=== PATIENT | male | born 1940 | race Caucasian/White ===

== ENCOUNTER 2018-06-22 11:15 | Day surgery (SDC) | payer MEDICARE ==
[~2018-06-22] VITALS: Ht 172.7 cm; Wt 81.0 kg
--- OUTSIDE RECORDS SUMMARY | 2018-06-22 11:24 | XMS REPORT ---
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 Encounters The following conditions tracked for encounter diagnoses were recorded for this visit: Finding or Diagnosis Status Certainty Chronicity Onset *ABDOMINAL PAIN; incarcerated Right inguinal hernia Active Medications Discharge Medications Status Medication Directions Current aspirin 81 mg tablet,delayed release 81 milligram (s) oral Daily Current buspirone 10 mg tablet 10 milligram (s) oral 3 xDaily 05-31-21 Current Flomax 0.4 mg capsule 0.4 milligram (s) oral Daily Current furosemide 40 mg tablet 40 milligram (s) oral Daily Current Invega 3 mg tablet,extended release 3 milligram (s) oral Daily Current lamotrigine 200 mg tablet 200 milligram (s) oral Twice a day Current lamotrigine 25 mg tablet 50 milligram (s) oral Twice a day Current Lipitor 20 mg tablet 20 milligram (s) oral Daily Current lisinopril 2.5 mg tablet 2.5 milligram (s) oral Daily Current potassium chloride ER 10 mEq capsule,extended release 10 milliequivilant(s) oral Daily Current Senokot 8.6 mg tablet 8.6 milligram (s) oral Daily Current Tegretol 200 mg tablet 200 milligram (s) oral Twice a day Stopped pentoxifylline ER 400 mg tablet,extended release 400 milligram (s) oral Twice a day Allergies, adverse reactions, alerts Allergen Category Ingredient Status Reaction Severity Onset shrimp Drug Allergy shrimp Confirmed or Verified Immunizations No immunizations recorded for this patient visit Relevant diagnostic tests and/or laboratory data RESULTS Routine Urinalysis :00:00 Result Normal Range Units Color YELLOW Clarity Clear Specific [place] 1.020 1.003-1.035 pH 6.5 4.5-8.0 Glucose NEGATIVE Bilirubin NEGATIVE Ketones 1+ Protein TRACE Urobilinogen 0.2 0-0.2 E.U./dL Nitrites NEGATIVE Blood NEGATIVE Leukocytes NEGATIVE WBCs No WBC's Seen RBCs No RBC's Seen. Squamous Epithelial Few Chemistry :00:00 Result Normal Range Units Sodium L 131 134-145 mEq/l Potassium 4.1 3.5-5.1 mEq/l Chloride L 97 98-107 mEq/l CO2 26.7 22-28 mEq/l Glucose H 234 70-105 mg/dl BUN 18 7-18 mg/dl Creatinine 0.71 0.6-1.3 mg/dl Calcium L 7.9 8.4-10.2 mg/dl Osmolality L 272.1 280-300 mOsm/L Anion GAP L 7.3 8-16 BUN/Creatinine Ratio H 25.4 10-20 Estimated GFR 109 >=60 mL/min/1.7 :05:00 Result Normal Range Units Sodium L 132 134-145 mEq/l Potassium 4.1 3.5-5.1 mEq/l Chloride L 92 98-107 mEq/l CO2 H 29.4 22-28 mEq/l Glucose H 155 70-105 mg/dl BUN H 22 7-18 mg/dl Creatinine 0.84 0.6-1.3 mg/dl Calcium 9.1 8.4-10.2 mg/dl TP - Total Protein 8.1 6.0-8.3 g/dl Albumin 4.6 3.5-5 g/dl Bilirubin - Total 0.6 0.1-1.0 mg/dl AST 34 10-42 IU/L ALT 25 12-65 IU/L ALP 59 39-107 IU/L Lipase 112 73-393 U/L Osmolality L 271.0 280-300 mOsm/L Albumin/Globulin Ratio 1.3 0-8 Anion GAP 10.6 8-16 BUN/Creatinine Ratio H 26.2 10-20 Estimated GFR 90 >=60 mL/min/1.7 Hematology :00:00 Result Normal Range Units WBC 10.0 4.8-10.8 103/uL RBC L 3.9 4.7-6.1 106/uL HGB L 12.5 13.0-18.0 g/dl HCT L 36.2 41.9-52.0 % MCV 92.1 80-94 FL MCH H 31.8 27-31 pg MCHC 34.5 33-37 g/dl RDW 13.7 11.5-15.5 % PLT 228 130-400 103/uL MPV 8.8 7.3-10.4 FL Neutro % H 77.4 40-70 % Lymph % L 9.6 20-40 % [facility] % H 10.7 0-10.0 % Eos % 1.5 0-7.0 % Baso % 0.4 0-2 % Neutro # H 7.7 1.5-7.5 103/uL Lymph # 1.0 0.9-4.0 103/uL [facility] # H 1.1 0-0.8 103/uL Eos # 0.2 0-0.6 103/uL Baso # 0.0 0-0.1 103/uL :05:00 Result Normal Range Units WBC H 14.8 4.8-10.8 103/uL RBC 4.7 4.7-6.1 106/uL HGB 14.9 13.0-18.0 g/dl HCT 43.1 41.9-52.0 % MCV 91.9 80-94 FL MCH H 31.8 27-31 pg MCHC 34.6 33-37 g/dl RDW 13.9 11.5-15.5 % PLT 266 130-400 103/uL MPV 8.5 7.3-10.4 FL Neutro % H 88.2 40-70 % Lymph % L 5.0 20-40 % [facility] % 5.6 0-10.0 % Eos % 0.4 0-7.0 % Baso % 0.3 0-2 % Neutro # H 13.1 1.5-7.5 103/uL Lymph # L 0.7 0.9-4.0 103/uL [facility] # 0.8 0-0.8 103/uL Eos # 0.1 0-0.6 103/uL Baso # 0.0 0-0.1 103/uL Body Fluid 70-92-190697:00:00 Result Normal Range Units pH 6.5 4.5-8.0 Radiology Results 91-66-335419:27:00 Abdomen 2 View PACs Image DATE OF EXAM: 2015 RAD [id number] 2 VIEW : RADIOLOGY REPORT DATE OF SERVICE:02/20/16 HISTORY:Abdominal pain, vomiting. ABDOMEN 2 VIEWS 1901 HOURS Multiple images of the abdomen were obtained and evaluated. There is a prominent ileus pattern without obstruction. No free air is identified. Evidence of prior median sternotomy and bypass surgery is noted. Pacemaker leads are seen. Gas and stool through the colon is demonstrated extending to the rectum. There is constipation on the right. An ileus pattern in the transverse and descending colon is noted. Postsurgical change of the left inguinal region is noted. Moderate arthritic change involving the spine is noted. IMPRESSION: 1)Moderate right colon constipation. 2)Mild ileus without obstruction. 3)Postsurgical change. 4)Osteoarthritis. Bhanu Gates DO WP/pb 02/20/2016 19:38:02/20/2016 20:43:43 cc:Dr. Hayden Reinoso This document has been electronically Signed by: On: DATE OF EXAM: 2015 RAD [id number]-ABDOMEN 2 VIEW : RADIOLOGY REPORT DATE OF SERVICE:02/20/16 HISTORY:Abdominal pain, vomiting. ABDOMEN 2 VIEWS 1901 HOURS Multiple images of the abdomen were obtained and evaluated. There is a prominent ileus pattern without obstruction. No free air is identified. Evidence of prior median sternotomy and bypass surgery is noted. Pacemaker leads are seen. Gas and stool through the colon is demonstrated extending to the rectum. There is constipation on the right. An ileus pattern in the transverse and descending colon is noted. Postsurgical change of the left inguinal region is noted. Moderate arthritic change involving the spine is noted. IMPRESSION: 1)Moderate right colon constipation. 2)Mild ileus without obstruction. 3)Postsurgical change. 4)Osteoarthritis. Bhanu Gates DO WP/pb 02/20/2016 19:38:02/20/2016 20:43:43 cc:Dr. Hayden Reinoso This document has been electronically Signed by: BHANU GATES DO On: 20158:27A INCARCERATED RIGHT INGUINAL HE Result Amended on 2016-02-21 at 08:27:14. Previous status was MO. INCARCERATED RIGHT INGUINAL HE CT ABD/PEL W CONTRAST PACs Image DATE OF EXAM: 2015 [id number] ABD/PELV W CONTRAST : RADIOLOGY REPORT DATE OF SERVICE: 02/20/16 HISTORY:Abdominal pain, elevated white count. CT ABDOMEN, PELVIS WITH CONTRAST 2209 HOURS Contrast utilized Isovue-300, 100 ml. Axial images were obtained with coronal reformats. The lower thorax pulmonary parenchymal windows show vascular congestion. Focal pneumonia is not identified. Coronary artery bypass graft changes are demonstrated. The heart is not enlarged. Large amount of contrast residual within the stomach is noted. Liver does not show focal pathology. Spleen appears normal. The adrenal glands are not enlarged. Left kidney is smooth in contour without hydronephrosis. A small calculus is demonstrated on axial image 39. This is nonobstructing type. This is approximately 2 mm. The right kidney is smooth in contour. A large low density area centrally oriented is identified. This is approximately 5 cm consistent with cyst. This is inferiorly in position. Aorta shows moderate atherosclerotic plaque and ectasia without aneurysmal change. Bladder shows moderate distention without filling defect. No free air or free fluid is defined in the pelvis. Bowel distribution is evaluated. Stomach shows moderate distention with contrast. Multiple fluid filled and stool filled loops of bowel are demonstrated. This appears to approximate to an area where there is a prominent right inguinal hernia extending into the scrotum. This is with moderate dilatation and probable obstructive pathology. This appears to be an incarcerated hernia. No free fluid or free air is demonstrated. In the area of the appendix, inflammatory process is not identified. The appendix is not definitively defined. Sigmoid colon does not show abnormal distention.Diverticulosis is not identified. There is prominent osteoarthritis involving the spine. IMPRESSION: 1)Incarcerated right inguinal hernia with small bowel distention and obstructive pathology, close follow-up recommended. 2)Emergency Room physician Dr. Dominic Root was informed of the above findings at the time of this report. 3)No other area of active or acute abdominal or pelvic pathology demonstrated. Bhanu Gates DO WP/benson 02/20/2016 22:33:00 / 02/21/2016 00:07:28 cc:Dr. Hayden Reinoso This document has been electronically Signed by: On: DATE OF EXAM: 2015 [id number] ABD/PELV W CONTRAST : RADIOLOGY REPORT DATE OF SERVICE: 02/20/16 HISTORY:Abdominal pain, elevated white count. CT ABDOMEN, PELVIS WITH CONTRAST 2209 HOURS Contrast utilized Isovue-300, 100 ml. Axial images were obtained with coronal reformats. The lower thorax pulmonary parenchymal windows show vascular congestion. Focal pneumonia is not identified. Coronary artery bypass graft changes are demonstrated. The heart is not enlarged. Large amount of contrast residual within the stomach is noted. Liver does not show focal pathology. Spleen appears normal. The adrenal glands are not enlarged. Left kidney is smooth in contour without hydronephrosis. A small calculus is demonstrated on axial image 39. This is nonobstructing type. This is approximately 2 mm. The right kidney is smooth in contour. A large low density area centrally oriented is identified. This is approximately 5 cm consistent with cyst. This is inferiorly in position. Aorta shows moderate atherosclerotic plaque and ectasia without aneurysmal change. Bladder shows moderate distention without filling defect. No free air or free fluid is defined in the pelvis. Bowel distribution is evaluated. Stomach shows moderate distention with contrast. Multiple fluid filled and stool filled loops of bowel are demonstrated. This appears to approximate to an area where there is a prominent right inguinal hernia extending into the scrotum. This is with moderate dilatation and probable obstructive pathology. This appears to be an incarcerated hernia. No free fluid or free air is demonstrated. In the area of the appendix, inflammatory process is not identified. The appendix is not definitively defined. Sigmoid colon does not show abnormal distention.Diverticulosis is not identified. There is prominent osteoarthritis involving the spine. IMPRESSION: 1)Incarcerated right inguinal hernia with small bowel distention and obstructive pathology, close follow-up recommended. 2)Emergency Room physician Dr. Dominic Root was informed of the above findings at the time of this report. 3)No other area of active or acute abdominal or pelvic pathology demonstrated. Bhanu Gates DO WP/pb 02/20/2016 22:33:00 / 02/21/2016 00:07:28 cc:Dr. Hayden Reinoso This document has been electronically Signed by: BHANU GATES DO On: 20158:27A INCARCERATED RIGHT INGUINAL HE Result Amended on 2016-02-21 at 08:27:51. Previous status was MO. INCARCERATED RIGHT INGUINAL HE :00:00 Result Normal Range Units MPV 8.8 7.3-10.4 FL :05:00 Result Normal Range Units MPV 8.5 7.3-10.4 FL History of procedures No procedures recorded for this patient visit. Functional status Functional Status Finding Observation Time Hearing Prob Loc none :00 Vision Problems no :00 Ambulation Asst Dev none :00 Range of Motion full :39 Muscle Strength RUE 5 ROM full resist :39 Muscle Strength RLE 5 ROM full resist :39 Muscle Strength LUE 5 ROM full resist :39 Muscle Strength LLE 5 ROM full resist :39 Transfers assist x 1 :39 Ambulation in room :39 Balance unsteady :39 Bathing Assistance minimal :00 Eating Assistance none :00 Dressing Assistance minimal :00 Toileting Assistance minimal :00 Transfer Assistance minimal :00 Decline Slf Care/Mob no :00 Phys Cond Stable yes :00 Nutrition normal :39 Diet regular :39 Oral Cavity moist and intact :39 Teeth intact :39 Dental Hygiene good 08-26-255885:39 Abdomen Appearance flat 95-36-648324:39 Abdomen tender 41-58-912355:39 Bowel Sounds present :39 NG Tube no :39 Feeding Tube none :39 Rodriguez no :39 Cont Bladder Irr no :39 Ostomy no :39 Stool normal 22-33-796257:39 Urination normal :39 Urine Clarity clear :39 Urine Color yellow 42-84-386374:39 Quality sym/unlabored 48-92-837914:39 Cough absent 80-17-819661:39 Secretions no 30-42-575673:39 Breath Sounds RUL clear 02-20-746996:39 Breath Sounds RML clear 05-99-534654:39 Breath Sounds RLL clear 66-67-476251:39 Breath Sounds SILVER clear 86-46-015346:39 Breath Sounds LLL clear 53-76-540134:39 Airway natural 17-80-029469:39 Chest Tube Site Crep no 37-96-178968:39 Chest Tube Air Leak no 46-42-251952:39 Oxygen no 17-89-787775:30 Oxygen Flow Rate RA 71-67-020077:30 C-PAP no 20-84-701389:39 BI-PAP no 79-94-910080:39 Temp >100.4 no 36-69-121732:39 Temp <96.8 no 89-34-945069:39 Chills with rigors no 08-13-412221:39 HR > 90bpm no 51-51-148205:39 Respirations > 20 no 34-32-743574:39 Systolic <90 no 83-29-141644:39 headache stiff neck no 53-11-162182:39 WBC > 74373 no 76-04-081341:39 WBC < 4000 no 05-93-984741:39 IV Site Location Right FA 45-17-673146:45 IV Type peripheral 87-41-352647:45 IV Site Information discontinued 77-22-560004:45 IV Site Start Attmpt 1 times 09-11-937233:00 IV Site Chuck 20 25-70-352126:45 IV Site Appearance WNL 09-96-962041:45 IV Site Color clear 07-68-768631:45 IV Site Patent yes 75-93-175832:45 Dressing Type gauze 66-25-513640:45 Nursing Note Pt wheeled off unit to personal vehicle. personal belongings in hand. pt denies pain and questions. 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 ( Unknown if ever smoked.) Treatment Plan No treatment plan text is available for this visit. Hospital discharge instructions Discharge Date/Time 02/21/16 6855 Accompanied By Estrellita Relationship other (explain) Comment: cousin DPOA Dismissal Condition good Disposition on DC detention Valuables yes Valuable Type other (specify) Comment: watch Valuables Returned T patient DC Inst/Educ Give yes Exit Care Educ Given yes Med/Side Effects Rev yes DC Med Rec Rev yes Immun Indicated no PNE Vac unknown Flu Vac 2015 Tetanus Vac unknown Follow up appt call for appointment
--- OUTSIDE RECORDS SUMMARY | 2018-06-22 11:25 | XMS REPORT ---
Author Author [facility] Medical Staff Organization [facility] Address [address] [place], [place] [address] Phone [phone] Summary purpose TRANSITION OF CARE AUTO GENERATION Chief Complaint and Reason for Visit No authorized Reason for Visit (Admitting Diagnosis) is available for this visit. Problem list No authorized problems tracked for continuity of care are available for this visit. Encounters No authorized problems tracked for encounter diagnoses are available for this visit. Medications No medications recorded for this patient visit Allergies, adverse reactions, alerts No allergy information is available for this patient. Immunizations No immunizations recorded for this patient visit Relevant diagnostic tests and/or laboratory data No authorized results are available for this patient visit History of procedures No procedures recorded for this patient visit. Functional status Functional Status Finding Observation Time Diet ADA specify calorie 38-41-553045:20 Abdomen Appearance flat 01-17-898464:20 Abdomen soft :20 Bowel Sounds present 01-49-533128:20 Urination normal 61-33-828644:20 Quality sym/unlabored :20 Cough absent :20 Secretions no :20 Breath Sounds RUL clear :20 Breath Sounds RML clear :20 Breath Sounds RLL clear :20 Breath Sounds SILVER clear :20 Breath Sounds LLL clear :20 Oxygen no 38-73-492835:24 Temp >100.4 no :20 Temp <96.8 no :20 Chills with rigors no :20 HR > 90bpm no 41-95-771191:20 Respirations > 20 no :20 Systolic <90 no :20 headache stiff neck no 83-96-080286:20 Nursing Note dc inst discussed with family /pt. pt dcd to family care in good condition :29 Vital signs Type Value Date Respiration Rate 16breaths per minute : Pulse 81beats per minute :24 Oxygen Saturation 99% :24 BP Systolic 119mmHg :24 BP Diastolic 66mmHg :24 Temperature 98.1F :24 Height 68inches :20 Weight 160LB :20 Social history No Social History or smoking status observations were recorded for this visit. ( Unknown if ever smoked.) Treatment Plan No treatment plan text is available for this visit. Hospital discharge instructions Dismissal Condition good Disposition on DC longterm DC Inst/Educ Give yes Med/Side Effects Rev yes Flu Vac 2014
--- OUTSIDE RECORDS SUMMARY | 2018-06-22 11:25 | XMS REPORT ---
Author Author EDVIN MEGLAR Organization [employer] Address Unknown Phone Unavailable Care Team Providers Care Hospital Monitor Name Role Phone EDVIN MELGAR CP Unavailable Allergies, Adverse Reactions, Alerts Substance Reaction Event Type Shrimp Info Not Available Non Drug Allergy Problems Problem Type Condition Code Onset Dates Condition Status Assessment Paranoid schizophrenia F20.0 Active Problem Epistaxis 784.7 Active Assessment Type 1 diabetes mellitus with retinopathy, macular edema presence unspecified, unspecified retinopathy severity E10.319 Active Problem Unspecified infective otitis externa 380.10 Active Problem Cough 786.2 Active Problem Depressive disorder, not elsewhere classified 311 Active Problem Diabetes mellitus without mention of complication, type II or unspecified type, not stated as uncontrolled 250.00 Active Problem Diabetes with other specified manifestations, type II or unspecified type, not stated as uncontrolled 250.80 Active Problem Acute maxillary sinusitis 461.0 Active Problem Bipolar I disorder, single manic episode, unspecified 296.00 Active Assessment 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 Active Assessment Benign prostatic hyperplasia with lower urinary tract symptoms, unspecified morphology N40.1 Active Assessment HTN (hypertension), benign I10 Active Assessment Coronary artery disease involving nome coronary artery of nome heart without angina pectoris I25.10 Active Assessment Seizure R56.9 Active Medications Medication Code System Code Instructions Start Date End Date Status Dosage Senokot [facility] [address]-34 8.6 mg Aug 13, 2013 1 Tablet 1 time per day Lipitor [facility] [address]-81 20 mg Aug 13, 2013 take 1 tablet (20 mg ) by oral route once daily Lamictal [facility] [address]-63 200 mg Jun 19, 2013 take 1 tablet (200 mg) by oral route 2 times per day Invega [facility] [address]-08 6 mg Jun 19, 2013 take 1 tablet (6 mg) by oral route once daily in the morning Advair Diskus [facility] [address]-32 250-50 mcg/dose Oct 28, 2013 inhale 1 puff by Inhalation route in the morning and evening 2 times per day approximately 12 hours apart for 2 weeks rinse mouth and spit after use Lantus [facility] [address]-64 100 unit/mL January 12, 2014 inject 20 Units by Subcutaneous route 1 time per day @ HS buspirone NDC 0 10 mg Aug 13, 2013 take 1 tablet by Oral route 1 time per day Lisinopril [facility] [address]-58 2.5 mg Aug 13, 2013 take 1 tablet by Oral route 1 time per day Zofran [facility] [address]-38 4 mg December 03, 2013 1 Tablet every 4-6 hours PRN nausea Pentoxifylline ND 0 400 mg Jun 19, 2013 take 1 tablet (400 mg) by oral route 2 times per day with meals Milk of Magnesia [facility] [address]-65 400 mg/5 mL January 12, 2014 take 30 milliliters by oral route once daily as needed, followed by a full glass (8 oz) of liquid PRN Hydrocodone-Acetaminophen [facility] [address]-75 5-300 mg January 12, 2014 take 1 tablet by oral route every 4 hours as needed for pain PRN Flomax [facility] [address]-38 0.4 mg Jun 19, 2013 take 1 capsule (0.4 mg) by oral route once daily 1/2 hour following the same meal each day Cheratussin AC [facility] [address]-10 10-100 mg/5 mL Jul 25, 2013 take 2 Teaspoon by Oral route as needed every 4-6 hours PRN cough Potassium Chloride [facility] [address]-68 10 mEq Jun 19, 2013 take 1 tablet by Oral route with food 1 time per day Ldmbkqhg-Fjxktghar-QW [facility] [address]-42 3.5-10,000-1 mg-unit/mL-% Jun 2 drop by Otic route 4 times per day for 7 day(s) NovoLog [facility] [address]-74 100 unit/mL January 12, 2014 inject 8 Units by Subcutaneous route 2 times per day Acetaminophen [facility] [address]-39 325 mg January 12, 2014 take 2 tablets (650 mg) by oral route every 4 hours as needed PRN Furosemide [facility] [address]-01 40 mg Jun 19, 2013 take 1 tablet (40 mg) by oral route once daily Aspirin [facility] [address]-44 325 mg Jun 19, 2013 take 1 tablets by Oral route every 4-6 hours as needed Tegretol [facility] [address]-27 200 mg January 12, 2014 take 1 tablet ( 200 mg) by oral route every 12 hours Procedures Procedure Coding System Code Date Office Visit, New Pt., Level 2 CPT-4 14278 May 09, 2016 Results No Known Results Summary Purpose [employer] Submission
--- OUTSIDE RECORDS SUMMARY | 2018-06-22 11:25 | XMS REPORT ---
Author Author EDVIN MELGAR Organization [employer] Address Unknown Phone Unavailable Care Team Providers Care Automatic I Threading Machine Feeder Name Role Phone EDVIN MELGAR CP Unavailable Allergies, Adverse Reactions, Alerts Substance Reaction Event Type Shrimp Info Not Available Non Drug Allergy Problems Problem Type Condition Code Onset Dates Condition Status Problem Epistaxis 784.7 Active Problem Unspecified infective otitis externa 380.10 [...] disorder, single manic episode, unspecified 296.00 Active Medications Medication Code System Code Instructions Start Date End Date Status Dosage Cheratussin AC [facility] [address]-46 10-100 mg/5 mL Jul 25, 2013 take 2 Teaspoon by Oral route as needed every 4-6 hours PRN cough NovoLog [facility] [address]-55 100 unit/mL January 12, 2014 inject 8 Units by Subcutaneous route 2 times per day Lantus [facility] [address]-03 100 unit/mL January 12, 2014 inject 20 Units by Subcutaneous route 1 time per day @ Lisinopril [facility] [address]-09 2.5 mg Aug 13, 2013 take 1 tablet by Oral route 1 time per day Advair Diskus [facility] [address]-19 250-50 mcg/dose Oct 28, 2013 inhale 1 puff by Inhalation route in the morning and evening 2 times per day approximately 12 hours apart for 2 weeks rinse mouth and spit after use Flomax [facility] [address]-77 0.4 mg Jun 19, 2013 take 1 capsule (0.4 mg) by oral route once daily 1/2 hour following the same meal each day Pentoxifylline [facility] 0 400 mg Jun 19, 2013 take 1 tablet (400 mg) by oral route 2 times per day with meals Tegretol [facility] [address]-25 200 mg January 12, 2014 take 1 tablet ( 200 mg) by oral route every 12 hours Lamictal [facility] [address]-52 200 mg Jun 19, 2013 take 1 tablet (200 mg) by oral route 2 times per day Milk of Magnesia [facility] [address]-23 400 mg/5 mL January 12, 2014 take 30 milliliters by oral route once daily as needed, followed by a full glass (8 oz) of liquid PRN Aspirin [facility] [address]-75 325 mg Jun 19, 2013 take 1 tablets by Oral route every 4-6 hours as needed Furosemide [facility] [address]-19 40 mg Jun 19, 2013 take 1 tablet (40 mg) by oral route once daily Potassium Chloride [facility] [address]-39 10 mEq Jun 19, 2013 take 1 tablet by Oral route with food 1 time per day Lipitor [facility] [address]-23 20 mg Aug 13, 2013 take 1 tablet (20 mg ) by oral route once daily Hydrocodone-Acetaminophen [facility] [address]-72 5-300 mg January 12, 2014 take 1 tablet by oral route every 4 hours as needed for pain PRN Acetaminophen [facility] [address]-58 325 mg January 12, 2014 take 2 tablets (650 mg) by oral route every 4 hours as needed PRN Senokot [facility] [address]-83 8.6 mg Aug 13, 2013 1 Tablet 1 time per day Invega [facility] [address]-67 6 mg Jun 19, 2013 take 1 tablet (6 mg) by oral route once daily in the morning buspirone [facility] 0 10 mg Aug 13, 2013 take 1 tablet by Oral route 1 time per day Zofran [facility] [address]-33 4 mg December 03, 2013 1 Tablet every 4-6 hours PRN nausea Rakaomjp-Lxthobxue-BQ [facility] [address]-96 3.5-10,000-1 mg-unit/mL-% Jun 2 drop by Otic route 4 times per day for 7 day(s) Results No Known Results Summary Purpose eClinicalWorks Submission
--- OUTSIDE RECORDS SUMMARY | 2018-06-22 11:25 | XMS REPORT ---
Author Author [facility] Medical Staff Organization [facility] Address [address] [place], [place] [address] Phone [phone] Care Team Providers Care Senior Network Security Architect Name Role Phone FRANKLIN SMITH MD PP [phone] FRANKLIN SMITH MD, PP [phone] Summary purpose TRANSITION OF CARE AUTO GENERATION [...] Range Units Color YELLOW Clarity Clear Specific [place] 1.020 1.003-1.035 pH 6.5 4.5-8.0 Glucose NEGATIVE [...] % Lymph % L 9.6 20-40 % [place] % H 10.7 0-10.0 % Eos % 1.5 0-7.0 % Baso % 0.4 0-2 % Neutro # H 7.7 1.5-7.5 103/uL Lymph # 1.0 0.9-4.0 103/uL [place] # H 1.1 0-0.8 103/uL Eos # [...] % Lymph % L 5.0 20-40 % [place] % 5.6 0-10.0 % Eos % 0.4 0-7.0 % Baso % 0.3 0-2 % Neutro # H 13.1 1.5-7.5 103/uL Lymph # L 0.7 0.9-4.0 103/uL [place] # 0.8 0-0.8 103/uL Eos # 0.1 0-0.6 103/uL Baso # 0.0 0-0.1 103/uL Body Fluid 21-77-729132:00:00 Result Normal Range Units pH 6.5 4.5-8.0 Radiology Results 02-14-361080:27:00 Abdomen 2 View PACs Image DATE OF [...] on 2016-02-21 at 08:27:14. Previous status was [place]. INCARCERATED RIGHT INGUINAL HE CT ABD/PEL W CONTRAST PACs Image DATE OF EXAM: 2015 [id number] ABD/PELV W CONTRAST : RADIOLOGY REPORT DATE [...] close follow-up recommended. 2)Emergency Room physician Dr. Osiris Root was informed of the above findings at the time of this report. 3)No other area of active or acute abdominal or pelvic pathology demonstrated. Bhanu Gates DO WP/benson 02/20/2016 22:33:00 / 02/21/2016 00:07:28 cc:Dr. Hayden Reinoso This document has been electronically Signed by: On: DATE OF EXAM: 2015 [id number] ABD/PELV W CONTRAST : RADIOLOGY REPORT DATE [...] close follow-up recommended. 2)Emergency Room physician Dr. Osiris Root was informed of the above findings at the time of this report. 3)No other area of active or acute abdominal or pelvic pathology demonstrated. Bhanu Gates DO WP/pb 02/20/2016 22:33:00 / 02/21/2016 00:07:28 cc:Dr. Hayden Reinoso This document has been electronically Signed by: BHANU GATES DO On: 20158:27A INCARCERATED RIGHT INGUINAL HE Result Amended on 2016-02-21 at 08:27:51. Previous status was [place]. INCARCERATED RIGHT INGUINAL HE 03-62-195087:00:00 Result Normal Range Units MPV 8.8 7.3-10.4 FL 59-66-767147:05:00 Result Normal Range Units MPV 8.5 7.3-10.4 FL History of procedures Procedure Code Code Type Description Date Performed Performing Physician [id number] ICD10 Supplement R Inguinal Region with Synth Sub, Open Approach 02-20-2016 HAYDEN BARRERA 59162 CPT-4 PRP I/KANU INIT REDUC >5 YR 02-20-2016 HAYDEN BARRERA 36147 CPT-4 COMPLETE CBC W/AUTO DIFF WBC 02-20-2016 HAYDEN BARRERA 44995 CPT-4 COMPREHEN METABOLIC PANEL 02-20-2016 HAYDEN BARRERA 66027 CPT-4 ASSAY OF LIPASE 02-20-2016 HAYDEN BARRERA 27705 CPT-4 URINALYSIS, AUTO W/SCOPE 02-20-2016 HAYDEN BARRERA 87406 CPT-4 X-RAY EXAM OF ABDOMEN 02-20-2016 HAYDEN BARRERA 85738 CPT-4 CT ABDOMEN&PELVIS W/CONTRAST 02-20-2016 HAYDEN BARRERA J7030 CPT-4 NORMAL SALINE SOLUTION INFUS 02-20-2016 HAYDEN BARRERA J2405 CPT-4 ONDANSETRON HCL INJECTION 02-20-2016 HAYDEN BARRERA J2270 CPT-4 MORPHINE SULFATE INJECTION 02-20-2016 HAYDEN BARRERA J2270 CPT-4 MORPHINE SULFATE INJECTION 02-20-2016 HAYDEN BARRERA 30106 CPT-4 ROUTINE VENIPUNCTURE 02-20-2016 OSIRIS ROOT 53714 CPT-4 COMPLETE CBC W/AUTO DIFF WBC 02-21-2016 HAYDEN BARRERA 87799 CPT-4 METABOLIC PANEL TOTAL CA 02-21-2016 HAYDEN BARRERA J7120 CPT-4 RINGERS LACTATE INFUSION 02-20-2016 OSIRIS ROOT J2270 CPT-4 MORPHINE SULFATE INJECTION 02-21-2016 OSIRIS ROOT J7120 CPT-4 RINGERS LACTATE INFUSION 02-21-2016 OSIRIS ROOT J7040 CPT-4 NORMAL SALINE SOLUTION INFUS 02-21-2016 OSIRIS ROOT J0694 CPT-4 CEFOXITIN SODIUM INJECTION 02-21-2016 OSIRIS ROOT J7040 CPT-4 NORMAL SALINE SOLUTION INFUS 02-21-2016 OSIRIS ROOT J0694 CPT-4 CEFOXITIN SODIUM INJECTION 02-21-2016 OSIRIS FABIANA C9290 CPT-4 INJ, BUPIVICAINE LIPOSOME 02-21-2016 HAYDEN BARRERA J2405 CPT-4 ONDANSETRON HCL INJECTION 02-21-2016 HAYDEN BARRERA J1885 CPT-4 TORADOL SYR 30MG/ML 02-21-2016 HAYDEN BARRERA J3010 CPT-4 FENTANYL CITRATE INJECITON 02-21-2016 HAYDEN BARRERA J2704 CPT-4 INJ, PROPOFOL, 10 MG 02-21-2016 HAYDEN BARRERA J7120 CPT-4 RINGERS LACTATE INFUSION 02-21-2016 HAYDEN BARRERA 99764 CPT-4 ROUTINE VENIPUNCTURE 02-21-2016 OSIRIS FABIANA Q9967 CPT-4 LOCM 300-399MG/ML IODINE,1ML 02-20-2016 HAYDEN BARRERA 47918 CPT-4 EMERGENCY DEPT VISIT 02-20-2016 OSIRIS FABIANA 78357 CPT-4 EMERGENCY DEPT VISIT 02-20-2016 OSIRIS FABIANA 65614 CPT-4 TX/PRO/DX INJ NEW DRUG ADDON 02-20-2016 HAYDEN BARRERA 81712 CPT-4 HYDRATE IV INFUSION, ADD-ON 02-20-2016 HAYDEN BARRERA G0378 CPT-4 HOSPITAL OBSERVATION PER HR 02-20-2016 HAYDEN BARRERA G0378 CPT-4 HOSPITAL OBSERVATION PER HR 02-21-2016 HAYDEN BARRERA 33010 CPT-4 THER/PROPH/DIAG IV INF, INIT 02-21-2016 HAYDEN BARRERA 52606 CPT-4 THER/PROPH/DIAG IV INF ADDON 02-21-2016 HAYDEN BARRERA 32387 CPT-4 TX/PRO/DX INJ NEW DRUG PATIENT REPRESENTATIVE 02-21-2016 HAYDEN BARRERA C1781 CPT-4 MESH (IMPLANTABLE) 02-21-2016 HAYDEN BARRERA Functional status Functional Status Finding Observation Time Hearing Prob Loc none 13-71-424213:00 Vision Problems no 97-13-761812:00 Ambulation Asst Dev none 54-99-106168:00 Range of Motion full 63-79-712578:39 Muscle Strength RUE 5 ROM full resist 17-15-607950:39 Muscle Strength RLE 5 ROM full resist 93-98-140158:39 Muscle Strength LUE 5 ROM full resist 08-21-867052:39 Muscle Strength LLE 5 ROM full resist :39 Transfers assist x 1 43-72-894922:39 Ambulation in room :39 Balance unsteady 97-42-677112:39 Bathing Assistance minimal :00 Eating Assistance none :00 Dressing Assistance minimal :00 Toileting Assistance minimal :00 Transfer Assistance minimal :00 Decline Slf Care/Mob no :00 Phys Cond Stable yes :00 Nutrition normal 40-56-643394:39 Diet regular 02-73-368323:39 Oral Cavity moist and intact :39 Teeth intact 75-53-427559:39 Dental Hygiene good 59-11-114094:39 Abdomen Appearance flat 96-69-659984:39 Abdomen tender :39 Bowel Sounds present :39 NG Tube no 40-81-203820:39 Feeding Tube none 02-36-288159:39 Rodriguez no 74-89-432653:39 Cont Bladder Irr no :39 Ostomy no 62-26-273139:39 Stool normal 06-78-978043:39 Urination normal 87-45-289319:39 Urine Clarity clear 26-30-012535:39 Urine Color yellow 89-65-658256:39 Quality sym/unlabored :39 Cough absent :39 Secretions no 60-51-216718:39 Breath Sounds RUL clear :39 Breath Sounds RML clear 96-96-161781:39 Breath Sounds RLL clear :39 Breath Sounds SILVER clear :39 Breath Sounds LLL clear 26-58-151201:39 Airway natural 76-07-433263:39 Chest Tube Site Crep no 11-31-344772:39 Chest Tube Air Leak no :39 Oxygen no 63-34-357241:30 Oxygen Flow Rate RA 86-60-062733:30 C-PAP no 07-79-864701:39 BI-PAP no 36-19-145977:39 Temp >100.4 no :39 Temp <96.8 no :39 Chills with rigors no :39 HR > 90bpm no :39 Respirations > 20 no :39 Systolic <90 no 97-56-370546:39 headache stiff neck no :39 WBC > 72247 no :39 WBC < 4000 no 27-05-262091:39 IV Site Location Right FA 02-15-674092:45 IV Type peripheral 88-35-841182:45 IV Site Information discontinued :45 IV Site Start Attmpt 1 times 60-08-646285:00 IV Site Chuck 20 15-96-694362:45 IV Site Appearance WNL 37-44-764692:45 IV Site Color clear :45 IV Site Patent yes :45 Dressing Type gauze 52-03-514332:45 Nursing Note talked with the RN at [facility] and she states that pt. was having quite abit of pain earlier and pt. was not sent home with any pain medication, but that they was able to get him on a schedule tylenol and he has been good since. 98-19-935119:19 Cognitive Status Finding Observation Time Oriented To Date 5 Yes :[address] 5 Yes :00 Name 3 Objects 3 Yes :00 Name Object in Rm 2 Yes :00 Recall 3 Objects 3 Yes :00 Repeats a Phrase 1 Yes :00 Follows Verbal Direc 3 Yes :00 Follows Written Dire 1 Yes :00 Write a Sentance 1 Yes :00 Draw an Object 1 Yes :00 Mini Mental Total 25 points :00 Less than 20 Phys not applicable 34-47-953044:00 Learning Ability comprehends well :45 Neurological no 68-82-127250:45 Psychological no 08-34-625311:45 Physical yes :45 Hearing yes :45 Dewer Needed no :45 Sign Language no :45 Emotional no :45 Vision no 38-17-475243:45 Laguage no :45 Financial no :45 Vital signs Type Value Date Respiration Rate 18breaths per minute : Pulse 82beats per minute :30 Oxygen Saturation 95% :30 BP Systolic 126mmHg : BP Diastolic 64mmHg :30 Temperature 97.4F :22 Height 68inches :11 Weight 170LB :11 Social history No Social History or smoking status observations were recorded for this visit. ( Unknown if ever smoked.) Treatment Plan No treatment plan text is available for this visit. Hospital discharge instructions Discharge Date/Time 02/21/16 9334 Accompanied By Estrellita Relationship other (explain) Comment: cousin DPOA Dismissal Condition good Disposition on DC jail Valuables yes Valuable Type other (specify) Comment: watch Valuables Returned T patient DC Inst/Educ Give yes Exit Care Educ Given yes Med/Side Effects Rev yes DC Med Rec Rev yes Immun Indicated no PNE Vac unknown Flu Vac 2015 Tetanus Vac unknown Follow up appt call for appointment
--- OUTSIDE RECORDS SUMMARY | 2018-06-22 11:25 | XMS REPORT ---
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 Active Assessment Seizure R56.9 Active Medications Medication Code System Code Instructions Start Date End Date Status Dosage Acetaminophen [facility] [address]-95 325 mg January 12, 2014 take 2 tablets (650 mg) by oral route every 4 hours as needed PRN Advair Diskus [facility] [address]-76 250-50 mcg/dose Oct 28, 2013 inhale 1 puff by Inhalation route in the morning and evening 2 times per day approximately 12 hours apart for 2 weeks rinse mouth and spit after use buspirone [facility] 0 10 mg Aug 13, 2013 take 1 tablet by Oral route 1 time per day Peiqktoe-Hrkfcfvxm-AQ [facility] [address]-23 3.5-10,000-1 mg-unit/mL-% Jun 2 drop by Otic route 4 times per day for 7 day(s) Senokot [facility] [address]-49 8.6 mg Aug 13, 2013 1 Tablet 1 time per day NovoLog [facility] [address]-12 100 unit/mL January 12, 2014 inject 8 Units by Subcutaneous route 2 times per day Flomax [facility] [address]-48 0.4 mg Jun 19, 2013 take 1 capsule (0.4 mg) by oral route once daily 1/2 hour following the same meal each day Lisinopril [facility] [address]-85 2.5 mg Aug 13, 2013 take 1 tablet by Oral route 1 time per day Cheratussin AC [facility] [address]-38 10-100 mg/5 mL Jul 25, 2013 take 2 Teaspoon by Oral route as needed every 4-6 hours PRN cough Pentoxifylline [facility] 0 400 mg Jun 19, 2013 take 1 tablet (400 mg) by oral route 2 times per day with meals Tegretol [facility] [address]-23 200 mg January 12, 2014 take 1 tablet ( 200 mg) by oral route every 12 hours Lantus [facility] [address]-81 100 unit/mL January 12, 2014 inject 20 Units by Subcutaneous route 1 time per day @ HS Lamictal [facility] [address]-95 200 mg Jun 19, 2013 take 1 tablet (200 mg) by oral route 2 times per day Aspirin [facility] [address]-43 325 mg Jun 19, 2013 take 1 tablets by Oral route every 4-6 hours as needed Zofran [facility] [address]-05 4 mg December 03, 2013 1 Tablet every 4-6 hours PRN nausea Milk of Magnesia [facility] [address]-11 400 mg/5 mL January 12, 2014 take 30 milliliters by oral route once daily as needed, followed by a full glass (8 oz) of liquid PRN Furosemide [facility] [address]-00 20 MG Orally Jun 19, 2013 take 1 tablet (40 mg) by oral route once daily Hydrocodone-Acetaminophen [facility] [address]-58 5-300 mg January 12, 2014 take 1 tablet by oral route every 4 hours as needed for pain PRN Potassium Chloride [facility] [address]-73 10 mEq Jun 19, 2013 take 1 tablet by Oral route with food 1 time per day Lipitor [facility] [address]-48 20 mg Aug 13, 2013 take 1 tablet (20 mg ) by oral route once daily [facility] [address]-25 6 mg Jun 19, 2013 take 1 tablet (6 mg) by oral route once daily in the morning Procedures Procedure Coding System Code Date Stable Visit (10 minutes) CPT-4 25768 Jul 25, 2016 Results No Known Results Summary Purpose eClinicalWorks Submission
--- OUTSIDE RECORDS SUMMARY | 2018-06-22 11:25 | XMS REPORT ---
Author Author EDVIN MELGAR Organization [employer] Address Unknown Phone Unavailable Care Team Providers Care Testing And Regulating Technician Name Role Phone EDVIN MELGAR CP Unavailable [...] single manic episode, unspecified 296.00 Active Medications No Known Medications Results No Known Results Summary Purpose eClinicalWorks Submission
--- OUTSIDE RECORDS SUMMARY | 2018-06-22 11:25 | XMS REPORT ---
Author Author [facility] Medical Staff Organization [facility] Address [address] [place], [place] [address] Phone [phone] Summary purpose TRANSITION OF CARE AUTO GENERATION Chief Complaint and Reason for Visit Admit Diagnosis 1 DM2/NOS W MANIF NEC NSU Problem list No authorized problems tracked for [...] for this patient visit History of procedures Procedure Code Code Type Description Date Performed Performing Physician 78934 CPT-4 EMERGENCY DEPT VISIT 01-11-2015 LUDIVINA BLACKWOOD 00523 CPT-4 EMERGENCY DEPT VISIT 01-11-2015 LUDIVINA BLACKWOOD Functional status Functional Status Finding Observation Time Diet ADA specify calorie 42-15-257202:20 Abdomen Appearance flat :20 Abdomen soft 76-11-171464:20 Bowel Sounds present 15-61-184842:20 Urination normal 12-19-596130:20 Quality sym/unlabored :20 Cough absent :20 Secretions no :20 Breath Sounds RUL clear :20 Breath Sounds RML clear :20 Breath Sounds RLL clear :20 Breath Sounds SILVER clear :20 Breath Sounds LLL clear :20 Oxygen no 17-14-272230:24 Temp >100.4 no :20 Temp <96.8 no :20 Chills with rigors no :20 HR > 90bpm no :20 Respirations > 20 no :20 Systolic <90 no 24-06-375428:20 headache stiff neck no :20 Nursing Note dc inst discussed with family /pt. pt dcd to family care in good condition :29 Vital signs Type Value Date Respiration Rate 16breaths per minute :24 Pulse 81beats per minute :24 Oxygen Saturation 99% :24 BP Systolic 119mmHg :24 BP Diastolic 66mmHg 93-31-987338:24 Temperature 98.1F 21-85-558433:24 Height 68inches 24-31-411494:20 Weight 160LB 80-75-058923:20 Social history No Social History or smoking status observations were recorded for this visit. ( Unknown if ever smoked.) Treatment Plan No treatment plan text is available for this visit. Hospital discharge instructions Dismissal Condition good [facility]position [facility] DC Inst/Educ Give yes Med/Side Effects Rev yes Flu Vac 2013
--- OUTSIDE RECORDS SUMMARY | 2018-06-22 11:26 | XMS REPORT | Clinical Summary ---
Author Author Admin, E Organization [employer] Address Unknown Phone Unavailable Allergies, Adverse Reactions, Alerts Allergy Name Reaction Description Start Date Severity Status Provider SULFA rash Critical Active Pelon Quach MD BACTROBAN Moderate Active Pelon Quach MD Conditions or Problems Problem Name Problem Code Onset Date Status Entry Date Provider Comment Standard Description Annotate History of ANXIETY 300.00 Inactive Pelon Quach MD Anxiety state, unspecified HYPERTENSION 401.9 Active Glenn Thornton MD Unspecified essential hypertension SEIZURE DISORDER 780.39 Active Glenn Thornton MD Other convulsions History of ATRIAL FIBRILLATION 427.31 Inactive Pelon Quach MD Atrial fibrillation URINARY RETENTION 788.20 Resolved Pelon Quach MD Retention of urine, unspecified NEUROGENIC BLADDER 596.54 Refinement Glenn Thornton MD Neurogenic bladder NOS Other neuromuscular dysfunction of 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.54 Active Pelon Quach MD Neurogenic bladder NOS HYPERLIPIDEMIA 272.4 Refinement Glenn Thornton MD Other and unspecified hyperlipidemia Mixed hyperlipidemia 272.4 Active Pelon Quach MD Other and unspecified hyperlipidemia INCOMPLETE BLADDER EMPTYING 788.21 Active Glenn Thornton MD Incomplete bladder emptying G E R D 530.81 Active Muna Sami Esophageal reflux Diabetes-Type 2 250.00 Resolved Pelon Quach MD Diabetes mellitus without mention of complication, type II or unspecified type, not stated as uncontrolled Bipolar disorder 296.80 Active Pelon Quach MD Bipolar disorder, unspecified Blister, foot/toe w/o infection 917.2 Resolved Pelon Quach MD Blister of foot and toe(s), without mention of infection Accidental fall E888.9 Active Pelon Quach MD Unspecified fall Seasonal allergies 477.9 Active Pelon Quach MD Allergic rhinitis, cause unspecified Diabetes mellitus, type II, on insulin, uncontrolled 250.72 Resolved Pelon Quach MD Diabetes mellitus with peripheral circulatory disorders, type II or unspecified type, uncontrolled Post-op care V67.00 Resolved Pelon Quach MD Follow-up examination following surgery, unspecified Inguinal hernia, right 550.90 Resolved Pelon Quach MD Unilateral or unspecified inguinal hernia, without mention of obstruction or gangrene (not specified as recurrent) URI - acute 465.9 Resolved Erik Baptiste MD Acute upper respiratory infections of unspecified site URI - acute 465.9 Resolved Erik Baptiste MD Acute upper respiratory infections of unspecified site Cellulitis, leg, left 682.6 Resolved Pelon Quach MD Cellulitis and abscess of leg, except foot Dyspnea 786.09 Resolved Pelon Quach MD Other dyspnea and respiratory abnormality Preventive health care V70.0 Active Pelon Quach MD Routine general medical examination at a health care facility Atrial fibrillation 427.31 Refinement Pelon Quach MD Atrial fibrillation Chronic Atrial Fibrillation 427.31 Active Pelon Quach MD Atrial fibrillation Diabetes mellitus, type II, on insulin 250.00 Active Pelon Quach MD Diabetes mellitus without mention of complication, type II or unspecified type, not stated as uncontrolled Schizophrenia 295.90 Refinement Pelon Quach MD Unspecified schizophrenia, unspecified state Other schizophrenia 295.90 Active Pelon Quach MD Unspecified schizophrenia, unspecified state Type 2 diabetes mellitus with other specified complication 250.80 Active Pelon Quach MD Diabetes mellitus with other specified manifestations, type II or unspecified type, not stated as uncontrolled Blister (nonthermal), right great toe, sequela 906.2 Resolved Pelon Quach MD Late effect of superficial injury Confusion 298.9 Resolved Pelon Quach MD Unspecified psychosis Body Mass Index 28.0-28.9 Adult Active Pelon Quach MD Body Mass Index 28.0-28.9, adult Personal history of fall V15.88 Active Pelon Quach MD Personal history of fall Shoulder pain, right 719.41 Active Pelon Quach MD Pain in joint involving shoulder region Body Mass Index 27.0-27.9 Adult Active Pelon Quach MD Body Mass Index 27.0-27.9, adult Accidental fall E888.9 Active Pelon Quach MD Unspecified fall Laceration with foreign body of other part of head, initial encounter 03/08 Active Pelon Quach MD Encounter for removal of sutures V58.32 Active Pelon Quach MD Encounter for removal of sutures Urinary incontinence 788.30 Active Pelon Quach MD Urinary incontinence, unspecified Frozen right shoulder 726.0 Active Pelon Quach MD Adhesive capsulitis of shoulder ATRIAL FIBRILLATION ICD-427.31 Inactive Pelon Quach MD URINARY RETENTION ICD-788.20 Inactive Pelon Quach MD Diabetes-Type 2 ICD-250.00 Inactive Pelon Quach MD Blister, foot/toe w/o infection ICD-917.2 Inactive Pelon Quach MD Diabetes mellitus, type II, on insulin, uncontrolled ICD-250.72 Inactive Pelon Quach MD Post-op care ICD-V67.00 Inactive Pelon Quach MD Inguinal hernia, right ICD-550.90 Inactive Pelon Quach MD ANXIETY ICD-300.00 Inactive Pelon Quach MD Cellulitis, leg, left ICD-682.6 Inactive Pelon Quach MD Dyspnea ICD-786.09 Inactive Pelon Quach MD Blister (nonthermal), right great toe, sequela ICD-906.2 Inactive Pelon Quach MD Confusion ICD-298.9 Inactive Pelon Quach MD URI - acute ICD-465.9 Inactive Erik Baptiste MD URI - acute ICD-465.9 Inactive Erik Baptiste MD Medication List Medication Instructions Start Date Stop Date Generic Name NDC Status Provider Patient Instruction CYCLOBENZAPRINE HCL 10 MG ORAL TABLET 1 tablet by mouth two times daily as needed for muscle spasm/pain CYCLOBENZAPRINE HCL 61838028123 Active Pelon Quach MD Active BENADRYL 25 MG ORAL CAPSULE 1 po q8hr PRN Congestion DIPHENHYDRAMINE HCL 01087099915 Active Pelon Quach MD Active ZOFRAN 4 MG ORAL TABLET 1 po q6hr PRN Nausea ONDANSETRON HCL 87611386479 Active Pelon Quach MD Active IMODIUM A-D 2 MG ORAL TABLET One QID prn diarrhea. No more than 4 tabs daily LOPERAMIDE HCL 87020162241 Active Pelon Quach MD Active TYLENOL 325 MG ORAL TABLET 2 tabs po prn for pain elevated temp ACETAMINOPHEN 49112310380 Active Pelon Quach MD Active MUCINEX D 60-600 MG ORAL TABLET EXTENDED RELEASE 12 HOUR 1 po BID PRN Congestion PSEUDOEPHEDRINE-GUAIFENESIN 15151731452 Active Pelon Quach MD Active IBUPROFEN 200 MG ORAL TABLET q 6hrs prn pain IBUPROFEN 78002817490 Active Pelon Quach MD Active LORATADINE 10 MG ORAL TABLET 1 tablet by mouth daily prn LORATADINE 48864389016 Active Pelon Quach MD Active BANOPHEN 25 MG ORAL TABLET 1 po every 6 hours PRN allergic reaction DIPHENHYDRAMINE HCL 22896380197 No Longer Active Pelon Quach MD Active EASY TOUCH ALCOHOL PREP MEDIUM 70 % PAD Use with each finger stick and insulin admin Dx: E11.9 ALCOHOL SWABS 05963135594 Active Jaycee Torrez APRN Active HUMALOG KWIKPEN 100 UNIT/ML SUBCUTANEOUS SOLUTION PEN-INJECTOR inject 10 units subcutaneously before meals also sliding scale INSULIN LISPRO 64837683884 Active Pelon Quach MD Active NOVOLOG 100 UNIT/ML SUBCUTANEOUS SOLUTION 10 UNITS BID BEFORE BREAKFAST AND LUNCH INSULIN ASPART 14833801528 No Longer Active NICOLETTE Hitchcock Active NOVOLOG 100 UNIT/ML SUBCUTANEOUS SOLUTION 10 UNITS BEFORE SUPPER INSULIN ASPART 22297849919 No Longer Active NICOLETTE Hitchcock Active INVEGA 6 MG ORAL TABLET EXTENDED RELEASE 24 HOUR 1 po daily for schizophrenia PALIPERIDONE 35657301233 Active Pelon Quach MD Active LAMICTAL 25 MG ORAL TABLET 2 tabs by mouth twice a day LAMOTRIGINE 45367668632 No Longer Active Pelon Quach MD Active BACTROBAN 2 % EXTERNAL OINTMENT Apply to affected area BID 06/28 MUPIROCIN 58960662512 No Longer Active Pelon Qauch MD Active INVEGA 6 MG ORAL TABLET EXTENDED RELEASE 24 HOUR 1 po daily for Schizophrenia PALIPERIDONE 15436569045 No Longer Active Pelon Quach MD Active TYLENOL 8 HOUR 650 MG ORAL TABLET EXTENDED RELEASE Take 1 tab po up to 3 times daily as needed ACETAMINOPHEN 91927004073 No Longer Active Pelon Quach MD Active IPRATROPIUM-ALBUTEROL 0.5-2.5 (3) MG/3ML INHALATION SOLUTION 1 neb treatment QID for cough Dx: J06.9 IPRATROPIUM-ALBUTEROL 79011357127 No Longer Active Pelon Quach MD Active BACTRIM DS 800-160 MG ORAL TABLET 1 tab by mouth twice daily 2016 TRIMETHOPRIM-SULFAMETHOXAZOLE 11719541400 No Longer Active Pelon Quach MD Active BACTRIM DS 800-160 MG ORAL TABLET 1 twice a day SULFAMETHOXAZOLE-TRIMETHOPRIM 34066189859 No Longer Active Pelon Quach MD Active IPRATROPIUM-ALBUTEROL 0.5-2.5 (3) MG/3ML INHALATION SOLUTION 1 neb treatment four times daily, for cough IPRATROPIUM-ALBUTEROL 15575205153 No Longer Active Jaycee Torrez APRN Active FUROSEMIDE 40 MG ORAL TABLET Take one by mouth daily FUROSEMIDE 44037818011 No Longer Active Jaycee Torrez APRN Active LANTUS 100 UNIT/ML SUBCUTANEOUS SOLUTION 20 SUBQ AT HS INSULIN GLARGINE 45714267762 Active Pelon Quach MD Active LAMICTAL 25 MG ORAL TABLET 2 tabs po BID for convulsions LAMOTRIGINE 09893399889 Active Jaycee Torrez APRN Active LASIX 20 MG ORAL TABLET 1 tablet by mouth every morning for edema FUROSEMIDE 17400728602 Active Jaycee Torrez APRN Active BUSPIRONE HCL 10 MG ORAL TABLET 1 tab by mouth BID BUSPIRONE HCL 12992874578 Active Jaycee Torrez APRN Active ADULT ASPIRIN EC LOW STRENGTH 81 MG ORAL TABLET DELAYED RELEASE Take one by mouth daily ASPIRIN 77948074350 No Longer Active Pelon Quach MD Active ASPIRIN 81 MG ORAL TABLET 1 po qd ASPIRIN 68151879413 Active Pelon Quach MD Active ZOFRAN 4 MG ORAL TABLET 1 po q6hr PRN Nausea ONDANSETRON HCL 28739601232 No Longer Active Pelon Quach MD Active TYLENOL 325 MG ORAL TABLET 1-2 pills by mouth every 6 hours if needed for pain /fever ACETAMINOPHEN 15463707528 No Longer Active Pelon Quach MD Active INVEGA 6 MG ORAL TABLET EXTENDED RELEASE 24 HOUR 1 TAB ONCE DAILY PALIPERIDONE 98190089918 No Longer Active Carly Suggs Active TEGRETOL 200 MG ORAL TABLET by mouth twice a day CARBAMAZEPINE 16603026787 Active Taty Alvarado MD PhD Active FLOMAX 0.4 MG ORAL CAPSULE 1 Daily TAMSULOSIN HCL 79434822718 Active Marianelachandrika Juarez Active DILANTIN 100 MG ORAL CAPSULE Take one by mouth daily PHENYTOIN SODIUM EXTENDED 70942948027 No Longer Active Marianela Juarez Active DEPAKOTE SPRINKLES 125 MG ORAL CAPSULE DELAYED RELEASE SPRINKLE 4 capsules by mouth twice daily DIVALPROEX SODIUM 15778057382 No Longer Active Marianela Raronny Active LAMICTAL 200 MG ORAL TABLET 1 BY MOUTH TWICE A DAY LAMOTRIGINE 33981285980 Active Marianela Raida Active LAMICTAL 100 MG ORAL TABLET by mouth twice a day LAMOTRIGINE 68893035208 No Longer Active Marianela Raida Active LAMICTAL 150 MG ORAL TABLET by mouth twice a day LAMOTRIGINE 26726830699 No Longer Active Marianela Raida Active DILANTIN 100 MG ORAL CAPSULE Take three by mouth daily PHENYTOIN SODIUM EXTENDED 91009659390 No Longer Active Marianela Juarez Active SENOKOT 8.6 MG ORAL TABLET take at bedtime SENNOSIDES 90908406491 Active Pelon Quach MD Active LIPITOR 20 MG ORAL TABLET take at bedtime ATORVASTATIN CALCIUM 00639383766 Active Glenn Thornton MD Active LISINOPRIL 2.5 MG ORAL TABLET Take one by mouth daily LISINOPRIL 20538840194 Active Glenn Thornton MD Active TRENTAL 400 MG CR-TABS by mouth twice a day PENTOXIFYLLINE 56620471039 Active Glenn Thornton MD Active KLOR-CON 10 10 MEQ ORAL TABLET EXTENDED RELEASE Take one by mouth daily POTASSIUM CHLORIDE 36459490479 Active Glenn Thornton MD Active DILANTIN 100 MG ORAL CAPSULE Take three by mouth daily DILANTIN 100 MG ORAL CAPSULE 931108 PHENYTOIN SODIUM EXTENDED Inactive LAMICTAL 150 MG ORAL TABLET by mouth twice a day LAMICTAL 150 MG ORAL TABLET 507787 LAMOTRIGINE Inactive LAMICTAL 100 MG ORAL TABLET by mouth twice a day LAMICTAL 100 MG ORAL TABLET 136615 LAMOTRIGINE Inactive DEPAKOTE SPRINKLES 125 MG ORAL CAPSULE DELAYED RELEASE SPRINKLE 4 capsules by mouth twice daily DEPAKOTE SPRINKLES 125 MG ORAL CAPSULE DELAYED RELEASE SPRINKLE 8585173 DIVALPROEX SODIUM Inactive DILANTIN 100 MG ORAL CAPSULE Take one by mouth daily DILANTIN 100 MG ORAL CAPSULE 976003 PHENYTOIN SODIUM EXTENDED Inactive INVEGA 6 MG ORAL TABLET EXTENDED RELEASE 24 HOUR 1 TAB ONCE DAILY INVEGA 6 MG ORAL TABLET EXTENDED RELEASE 24 HOUR PALIPERIDONE Inactive TYLENOL 325 MG ORAL TABLET 1-2 pills by mouth every 6 hours if needed for pain /fever TYLENOL 325 MG ORAL TABLET 043162 ACETAMINOPHEN Inactive ZOFRAN 4 MG ORAL TABLET 1 po q6hr PRN Nausea ZOFRAN 4 MG ORAL TABLET 724818 ONDANSETRON HCL Inactive ADULT ASPIRIN EC LOW STRENGTH 81 MG ORAL TABLET DELAYED RELEASE Take one by mouth daily ADULT ASPIRIN EC LOW STRENGTH 81 MG ORAL TABLET DELAYED RELEASE 595882 ASPIRIN Inactive FUROSEMIDE 40 MG ORAL TABLET Take one by mouth daily FUROSEMIDE 40 MG ORAL TABLET 344625 FUROSEMIDE Inactive BACTRIM DS 800-160 MG ORAL TABLET 1 twice a day BACTRIM DS 800-160 MG ORAL TABLET 444813 SULFAMETHOXAZOLE-TRIMETHOPRIM Inactive IPRATROPIUM-ALBUTEROL 0.5-2.5 (3) MG/3ML INHALATION SOLUTION 1 neb treatment QID for cough Dx: J06.9 IPRATROPIUM-ALBUTEROL 0.5-2.5 ( 3) MG/3ML INHALATION SOLUTION 4767654 IPRATROPIUM-ALBUTEROL Inactive TYLENOL 8 HOUR 650 MG ORAL TABLET EXTENDED RELEASE Take 1 tab po up to 3 times daily as needed TYLENOL 8 HOUR 650 MG ORAL TABLET EXTENDED RELEASE ACETAMINOPHEN Inactive INVEGA 6 MG ORAL TABLET EXTENDED RELEASE 24 HOUR 1 po daily for Schizophrenia INVEGA 6 MG ORAL TABLET EXTENDED RELEASE 24 HOUR PALIPERIDONE Inactive BACTROBAN 2 % EXTERNAL OINTMENT Apply to affected area BID 06/28 BACTROBAN 2 % EXTERNAL OINTMENT MUPIROCIN Inactive LAMICTAL 25 MG ORAL TABLET 2 tabs by mouth twice a day LAMICTAL 25 MG ORAL TABLET 845688 LAMOTRIGINE Inactive NOVOLOG 100 UNIT/ML SUBCUTANEOUS SOLUTION 10 UNITS BEFORE SUPPER NOVOLOG 100 UNIT/ML SUBCUTANEOUS SOLUTION INSULIN ASPART Inactive NOVOLOG 100 UNIT/ML SUBCUTANEOUS SOLUTION 10 UNITS BID BEFORE BREAKFAST AND LUNCH NOVOLOG 100 UNIT/ML SUBCUTANEOUS SOLUTION INSULIN ASPART Inactive BANOPHEN 25 MG ORAL TABLET 1 po every 6 hours PRN allergic reaction BANOPHEN 25 MG ORAL TABLET 4320990 DIPHENHYDRAMINE HCL Inactive IPRATROPIUM-ALBUTEROL 0.5-2.5 (3) MG/3ML INHALATION SOLUTION 1 neb treatment four times daily, for cough IPRATROPIUM-ALBUTEROL 0.5- 2.5 (3) MG/3ML INHALATION SOLUTION 6261522 IPRATROPIUM-ALBUTEROL Inactive BACTRIM DS 800-160 MG ORAL TABLET 1 tab by mouth twice daily 2016 BACTRIM DS 800-160 MG ORAL TABLET 493348 TRIMETHOPRIM- SULFAMETHOXAZOLE Inactive Advance Directives Directive Description Start Date DURABLE POWER OF CLOTH BLEACHING RANGE TENDER FOR HEALTHCARE PERMISSION TO SHARE ADVANCED DIRECTIVE Vital Signs Date Name Value Unit Range Description blood pressure, diastolic 66 mm[Hg] BP daly blood pressure, systolic 136 mm[Hg] BP sys height E&M 66 [in_us] Bdy height pulse rate E&M 80 /min Heart rate temperature E&M 97.9 [degF] Body temperature weight E&M 167 [lb_av] Weight Measured blood pressure, diastolic 67 mm[Hg] BP daly blood pressure, systolic 166 mm[Hg] BP sys height E&M 66 [in_us] Bdy height pulse rate E&M 99 /min Heart rate temperature E&M 97.3 [degF] Body temperature weight E&M 167 [lb_av] Weight Measured blood pressure, diastolic 68 mm[Hg] BP daly blood pressure, systolic 149 mm[Hg] BP sys height E&M 66 [in_us] Bdy height pulse rate E&M 95 /min Heart rate temperature E&M 97.6 [degF] Body temperature weight E&M 171 [lb_av] Weight Measured blood pressure, diastolic 77 mm[Hg] BP daly blood pressure, systolic 159 mm[Hg] BP sys height E&M 66 [in_us] Bdy height pulse rate E&M 96 /min Heart rate temperature E&M 97.5 [degF] Body temperature weight E&M 168 [lb_av] Weight Measured blood pressure, diastolic 78 mm[Hg] BP daly blood pressure, systolic 159 mm[Hg] BP sys height E&M 66 [in_us] Bdy height pulse rate E&M 90 /min Heart rate temperature E&M 97.7 [degF] Body temperature weight E&M 170 [lb_av] Weight Measured blood pressure, diastolic 91 mm[Hg] BP daly blood pressure, systolic 180 mm[Hg] BP sys height E&M 66 [in_us] Bdy height temperature E&M 98.4 [degF] Body temperature blood pressure, diastolic 91 mm[Hg] BP daly blood pressure, systolic 180 mm[Hg] BP sys pulse rate E&M 82 /min Heart rate temperature E&M 97.4 [degF] Body temperature blood pressure, diastolic 74 mm[Hg] BP daly blood pressure, systolic 146 mm[Hg] BP sys height E&M 66 [in_us] Bdy height pulse rate E&M 89 /min Heart rate temperature E&M 96.8 [degF] Body temperature weight E&M 176 [lb_av] Weight Measured Diagnostic Results Date Name Value Unit Range Description Lab Report: Comp. Metabolic Panel, CBC, HGBA1C - Chemistry sodium, serum 123 mmol/L 521-433 4274/04/25 carbon dioxide, venous blood 26.2 mmol/L 21.0-32.0 potassium, serum 4.5 mmol/L 3.5-5.2 chloride, serum 88 mmol/L 98-107 blood glucose 187 mg/dL 65-95 urea nitrogen, blood 10 mg/dL 7-18 creatinine, serum 0.67 mg/dL 0.60-1.30 alanine aminotransferase (SGPT), serum 19 U/L 12-78 aspartate aminotransferase (SGOT), serum 25 U/L 15-37 calcium, serum 8.8 mg/dL 8.5-10.1 bilirubin, serum, total 1.00 mg/dL 0.00-1.00 hemoglobin A1C, blood, as % of total hemoglobin 6.9 % 4.3-6.0 Lab Report: Comp. Metabolic Panel, CBC, HGBA1C - Hematology leukocyte count, blood 4.4 10^3/MM^3 10*3/mm3 4.6-10.2 erythrocyte (RBC) count 4.17 10^6/MM^3 10*6/mm3 4.50-6.50 hemoglobin, blood 13.6 g/dL 14.0-18.0 hematocrit, blood 40.0 % 40.0-54.0 mean corpuscular volume, RBC 96 fL 80-97 mean corpuscular hemoglobin, RBC 32.6 pg 27.0-31.2 mean corpuscular hemoglobin concentration, RBC 34.0 G/DL % 31.8- 35.4 red blood cell distribution width 13.4 % 11.6-14.8 platelet count 331 10^3/MM^3 10*3/mm3 142-424 Lab Report: HGBA - Chemistry hemoglobin A1C, blood, as % of total hemoglobin 6.8 % 4.3-6.0 hemoglobin A1C, blood, as % of total hemoglobin 6.7 % 4.3-6.0 Lab Report: UADIP W/MICRO, AUTO - Chemistry protein, total urine random 1+ mg/dL Negative RBC, urine, dipstick Trace-intact Negative Lab Report: UADIP W/MICRO, AUTO - Urinalysis urobilinogen, urine, semiquantitative (dipstick) 1.0 E.U./dL Normal leukocyte esterase, urine, by dipstick Negative Negative nitrite, urine, semiquantitative Negative Negative glucose, urine, semiquantitative 2+ Negative ketones, urine, by test strip 1+ Negative bilirubin, urine Negative Negative urine color Yellow Colorless;Lightyellow;Straw;Yellow appearance, urine Clear Clear specific gravity, urine 1.015 1.000-1.030 pH, urine, semiquantitative 6.5 5.0-8.5 Office Visit: 3 mo NEED LAB WORK SCHEDULED - Basic LDL target level 100 mg/dL Office Visit: 3 mo NEED LAB WORK SCHEDULED - Chemistry cholesterol, target level 200 mg/dL triglyceride, target level 200 mg/dL HDL cholesterol, serum, target level 35 mg/dL Office Visit: 3 MO F/U-RD,[facility] - Basic LDL target level 100 mg/dL Office Visit: 3 MO F/U-RD,[facility] - Chemistry HDL cholesterol, serum, target level 40 mg/dL triglyceride, target level 150 mg/dL cholesterol, target level 200 mg/dL Office Visit: [facility] - Basic LDL target level 100 mg/dL Office Visit: [facility] - Chemistry cholesterol, target level 200 mg/dL triglyceride, target level 200 mg/dL HDL cholesterol, serum, target level 35 mg/dL Office Visit: Incontinence - Chemistry RBC, urine, dipstick negative Office Visit: [facility] Incontinence - Urinalysis nitrite, urine, semiquantitative negative urobilinogen, urine, semiquantitative (dipstick) 0.2 leukocyte esterase, urine, by dipstick negative appearance, urine clear urine color yellow specific gravity, urine 1.025 pH, urine, semiquantitative 6.0 protein, urine, semiquantitative (dipstick) trace glucose, urine, semiquantitative negative ketones, urine, by test strip negative bilirubin, urine negative Office Visit: SHOULDER/NECK PAIN, FEELS LIKE BLADDER NOT EMPTYING - Basic LDL target level 100 mg/dL Office Visit: SHOULDER/NECK PAIN, FEELS LIKE BLADDER NOT EMPTYING - Chemistry cholesterol, target level 200 mg/dL triglyceride, target level 200 mg/dL HDL cholesterol, serum, target level 35 mg/dL Encounters Code Encounter Date Provider Facility CPT-37350 [id number] Vst-Est Level IV 10:45:13 CDT Pelon Quach MD [facility] CPT-31119 [id number] Vst-Est Level IV 13:48:14 CDT Pelon Quach MD [facility] CPT-30720 [id number] Vst-Est Level II 13:40:42 CDT Pelon Quach MD [facility] CPT-13719 [id number] Vst-Est Level III 13:36:24 CDT Pelon Quach MD [facility] CPT-52213 Level 4 Est. Patient 18:11:18 CDT Pelon Quach MD [facility] CPT-28684 Level 4 Est. Patient 14:46:38 CDT Pelon Quach MD [facility] CPT-29345 Level 4 Est. Patient 08:43:11 CDT Pelon Quach MD [facility] CPT-37167 Level 4 Est. Patient 14:27:30 CDT Pelon Quach MD [facility] CPT-18866 Level 3 Est. Patient 10:32:17 CDT Jaycee Torrez APRN [facility] CPT-32611 Level 3 Est. Patient 10:15:07 CDT Pelon Quach MD [facility] CPT-93713 Level 4 Est. Patient 09:30:54 CDT Pelon Quach MD [facility] CPT-68178 Level 4 Est. Patient 14:34:25 CDT Pelon Quach MD [facility] CPT-22405 Level 3 Est. Patient 11:51:35 LPTA Rick Henson DO [facility]-62541 Level 3 Est. Patient 12:13:33 LPTA Erik Baptiste MD [facility]-15592 Level 3 Est. Patient 09:40:44 LPTA Jaycee Torrez [facility] CPT-56763 Level 3 Est. Patient 09:36:32 LPTA Jaycee Torrez [facility] CPT-60156 Level 4 Est. Patient 16:57:02 LPTA Pelon Quach MD [facility]-80932 Level 4 Est. Patient 22:19:34 CDT Pelon Quach MD [facility]-65245 Level 3 Est. Patient 00:34:41 CDT Pelon Quach MD [facility]-04642 Level 4 Est. Patient 11:19:14 CDT Pelon Quach MD [facility]-62059 Level 4 Est. Patient 16:43:30 LPTA Pelon Quach MD [facility]-08186 Level 4 Est. Patient 12:42:18 CDT Pelon Quach MD [facility] CPT-51835 Level 4 Est. Patient 11:52:20 CDT Pelon Quach MD [facility] CPT-36083 Level 4 Est. Patient 13:59:46 CDT Pelon Quach MD [facility] CPT-02853 Level 4 Est. Patient 15:10:48 CDT Pelon Quach MD [facility]-45763 Level 4 Est. Patient 17:13:06 CDT Pelon Quach MD [facility] CPT-08434 Level 4 Est. Patient 18:47:47 CDT Pelon Quach MD [facility] CPT-74083 Level 3 Est. Patient 21:01:27 CDT Pelon Quach MD [facility] CPT-06470 Level 3 Est. Patient 14:07:03 CDT Taty Alvarado MD PhD [facility] CPT-07874 Level 3 New Patient 21:39:52 LPTA Pelon Quach MD [facility] CPT-81215 Level 3 Est. Patient 14:28:44 CDT Glenn Thornton MD [facility] CPT-42872 Level 3 Est. Patient 16:35:00 CDT Glenn Thornton MD [facility] CPT-10317 Level 4 New Patient 17:06:27 CDT Glenn Thornton MD [facility] Procedures Code Procedure Name Date Entry Date Standard Description CPT-67591 Shoulder, right, comp min 2V - XRAY USE ONLY 10:47:10 CDT CPT-G0439 Subsequent Annual Wellness Exam 18:11:17 CDT CPT-G0438 Initial Annual Wellness Exam 09:30:54 CDT CPT-56771 Prevnar 13 Intramuscular Suspension 14:34:25 CDT 12/27 CPT-69777 Chest 2V Frontal and Lat - XRAY USE ONLY 11:56:13 LPTA CPT-76368 Cystoscopy 14:28:44 CDT CPT-48979 Bladder Scan 14:28:44 CDT CPT-24044 Indwelling Cath Change 17:06:27 CDT CPT-54150 Cystoscopy 17:06:27 CDT
--- OUTSIDE RECORDS SUMMARY | 2018-06-22 11:27 | XMS REPORT | Clinical Summary ---
Author Author Admin, E Organization [employer] Address Unknown Phone Unavailable Allergies, Adverse Reactions, [...] Encounter for removal of sutures V58.32 Active Peoln Quach MD Encounter for removal of sutures Urinary incontinence 788.30 Active Pelon Quach MD Urinary incontinence, unspecified Frozen right shoulder 726.0 Active Pelon Quach MD Adhesive capsulitis of shoulder ANXIETY ICD-300.00 Inactive Pelon Quach MD ATRIAL FIBRILLATION ICD-427.31 Inactive Pelon Quach MD URINARY RETENTION ICD-788.20 Inactive Pelon Quach MD Diabetes-Type 2 ICD-250.00 Inactive Pelon Quach MD Blister, foot/toe w/o infection ICD-917.2 Inactive Pelon Quach MD Diabetes mellitus, type II, on insulin, uncontrolled ICD-250.72 Inactive Pelon Quach MD Post-op care ICD-V67.00 Inactive Pelon Quach MD Inguinal hernia, right ICD-550.90 Inactive Pelon Quach MD URI - acute ICD-465.9 Inactive Erik Baptiste MD URI - acute ICD-465.9 Inactive Erik Baptiste MD Cellulitis, leg, left ICD-682.6 Inactive Pelon Quach MD Dyspnea ICD-786.09 Inactive Pelon Quach MD Blister (nonthermal), right great toe, sequela ICD-906.2 Inactive Pelon Quach MD Confusion ICD-298.9 Inactive Pelon Quach MD Medication List Medication Instructions Start Date Stop Date Generic Name NDC Status Provider Patient Instruction CYCLOBENZAPRINE HCL 10 MG ORAL TABLET 1 tablet by mouth two times daily as needed for muscle spasm/pain CYCLOBENZAPRINE HCL 65981800113 Active Pelon Quach MD Active BENADRYL 25 MG ORAL CAPSULE 1 po q8hr PRN Congestion DIPHENHYDRAMINE HCL 43106054986 Active Pelon Quach MD Active ZOFRAN 4 MG ORAL TABLET 1 po q6hr PRN Nausea ONDANSETRON HCL 53386247211 Active Pelon Quach MD Active IMODIUM A-D 2 MG ORAL TABLET One QID prn diarrhea. No more than 4 tabs daily LOPERAMIDE HCL 68306059359 Active Pelon Quach MD Active TYLENOL 325 MG ORAL TABLET 2 tabs po prn for pain elevated temp ACETAMINOPHEN 79402091664 Active Pelon Quach MD Active MUCINEX D 60-600 MG ORAL TABLET EXTENDED RELEASE 12 HOUR 1 po BID PRN Congestion PSEUDOEPHEDRINE-GUAIFENESIN 11694634054 Active Pelon Quach MD Active IBUPROFEN 200 MG ORAL TABLET q 6hrs prn pain IBUPROFEN 77309792560 Active Pelon Quach MD Active LORATADINE 10 MG ORAL TABLET 1 tablet by mouth daily prn LORATADINE 60381795599 Active Pelon Quach MD Active BANOPHEN 25 MG ORAL TABLET 1 po every 6 hours PRN allergic reaction DIPHENHYDRAMINE HCL 86968259052 No Longer Active Pelon Quach MD Active EASY TOUCH ALCOHOL PREP MEDIUM 70 % PAD Use with each finger stick and insulin admin Dx: E11.9 ALCOHOL SWABS 77128581707 Active Jaycee Torrez APRN Active HUMALOG KWIKPEN 100 UNIT/ML SUBCUTANEOUS SOLUTION PEN-INJECTOR inject 10 units subcutaneously before meals also sliding scale INSULIN LISPRO 13925809945 Active Pelon Quach MD Active NOVOLOG 100 UNIT/ML SUBCUTANEOUS SOLUTION 10 UNITS BID BEFORE BREAKFAST AND LUNCH INSULIN ASPART 15335777060 No Longer Active NICOLETTE Hitchcock Active NOVOLOG 100 UNIT/ML SUBCUTANEOUS SOLUTION 10 UNITS BEFORE SUPPER INSULIN ASPART 07268260943 No Longer Active NICOLETTE Hitchcock Active INVEGA 6 MG ORAL TABLET EXTENDED RELEASE 24 HOUR 1 po daily for schizophrenia PALIPERIDONE 58307552039 Active Pelon Quach MD Active LAMICTAL 25 MG ORAL TABLET 2 tabs by mouth twice a day LAMOTRIGINE 23702210773 No Longer Active Pelon Quach MD Active BACTROBAN 2 % EXTERNAL OINTMENT Apply to affected area BID 06/28 MUPIROCIN 17116540870 No Longer Active Pelon Quach MD Active INVEGA 6 MG ORAL TABLET EXTENDED RELEASE 24 HOUR 1 po daily for Schizophrenia PALIPERIDONE 35882749085 No Longer Active Pelon Quach MD Active TYLENOL 8 HOUR 650 MG ORAL TABLET EXTENDED RELEASE Take 1 tab po up to 3 times daily as needed ACETAMINOPHEN 17054317672 No Longer Active Pelon Quach MD Active IPRATROPIUM-ALBUTEROL 0.5-2.5 (3) MG/3ML INHALATION SOLUTION 1 neb treatment QID for cough Dx: J06.9 IPRATROPIUM-ALBUTEROL 64277762978 No Longer Active Pelon Quach MD Active BACTRIM DS 800-160 MG ORAL TABLET 1 tab by mouth twice daily 2016 TRIMETHOPRIM-SULFAMETHOXAZOLE 56785817877 No Longer Active Pelon Quach MD Active BACTRIM DS 800-160 MG ORAL TABLET 1 twice a day SULFAMETHOXAZOLE-TRIMETHOPRIM 43102511155 No Longer Active Pelon Quach MD Active IPRATROPIUM-ALBUTEROL 0.5-2.5 (3) MG/3ML INHALATION SOLUTION 1 neb treatment four times daily, for cough IPRATROPIUM-ALBUTEROL 67711741268 No Longer Active Jaycee Torrez APRN Active FUROSEMIDE 40 MG ORAL TABLET Take one by mouth daily FUROSEMIDE 86001980087 No Longer Active Jaycee Torrez APRN Active LANTUS 100 UNIT/ML SUBCUTANEOUS SOLUTION 20 SUBQ AT HS INSULIN GLARGINE 73552918966 Active Pelon Quach MD Active LAMICTAL 25 MG ORAL TABLET 2 tabs po BID for convulsions LAMOTRIGINE 58037497076 Active Jaycee Torrez APRN Active LASIX 20 MG ORAL TABLET 1 tablet by mouth every morning for edema FUROSEMIDE 85795929813 Active Jaycee Torrez APRN Active BUSPIRONE HCL 10 MG ORAL TABLET 1 tab by mouth BID BUSPIRONE HCL 40939469800 Active Jaycee Torrez APRN Active ADULT ASPIRIN EC LOW STRENGTH 81 MG ORAL TABLET DELAYED RELEASE Take one by mouth daily ASPIRIN 05310799955 No Longer Active Pleon Quach MD Active ASPIRIN 81 MG ORAL TABLET 1 po qd ASPIRIN 30838715414 Active Pelon Quach MD Active ZOFRAN 4 MG ORAL TABLET 1 po q6hr PRN Nausea ONDANSETRON HCL 57557890000 No Longer Active Pelon Quach MD Active TYLENOL 325 MG ORAL TABLET 1-2 pills by mouth every 6 hours if needed for pain /fever ACETAMINOPHEN 17504157884 No Longer Active Pelon Quach MD Active INVEGA 6 MG ORAL TABLET EXTENDED RELEASE 24 HOUR 1 TAB ONCE DAILY PALIPERIDONE 16922495885 No Longer Active Carly Suggs Active TEGRETOL 200 MG ORAL TABLET by mouth twice a day CARBAMAZEPINE 13794944946 Active Taty Alvarado MD PhD Active FLOMAX 0.4 MG ORAL CAPSULE 1 Daily TAMSULOSIN HCL 85730557215 Active Marianelachandrika Juarez Active DILANTIN 100 MG ORAL CAPSULE Take one by mouth daily PHENYTOIN SODIUM EXTENDED 89168199197 No Longer Active Marianela Juarez Active DEPAKOTE SPRINKLES 125 MG ORAL CAPSULE DELAYED RELEASE SPRINKLE 4 capsules by mouth twice daily DIVALPROEX SODIUM 11102773948 No Longer Active Marianela Raronny Active LAMICTAL 200 MG ORAL TABLET 1 BY MOUTH TWICE A DAY LAMOTRIGINE 09429364830 Active Marianela Raida Active LAMICTAL 100 MG ORAL TABLET by mouth twice a day LAMOTRIGINE 99392360769 No Longer Active Marianela Raida Active LAMICTAL 150 MG ORAL TABLET by mouth twice a day LAMOTRIGINE 21881439161 No Longer Active Marianela Raida Active DILANTIN 100 MG ORAL CAPSULE Take three by mouth daily PHENYTOIN SODIUM EXTENDED 82127769071 No Longer Active Marianela Juarez Active SENOKOT 8.6 MG ORAL TABLET take at bedtime SENNOSIDES 33910344977 Active Pelon Quach MD Active LIPITOR 20 MG ORAL TABLET take at bedtime ATORVASTATIN CALCIUM 20983528420 Active Glenn Thornton MD Active LISINOPRIL 2.5 MG ORAL TABLET Take one by mouth daily LISINOPRIL 10603726198 Active Glenn Thornton MD Active TRENTAL 400 MG CR-TABS by mouth twice a day PENTOXIFYLLINE 68745063483 Active Glenn Thornton MD Active KLOR-CON 10 10 MEQ ORAL TABLET EXTENDED RELEASE Take one by mouth daily POTASSIUM CHLORIDE 04697905288 Active Glenn Thornton MD Active DILANTIN 100 MG ORAL CAPSULE Take three by mouth daily DILANTIN 100 MG ORAL CAPSULE 728617 PHENYTOIN SODIUM EXTENDED Inactive LAMICTAL 150 MG ORAL TABLET by mouth twice a day LAMICTAL 150 MG ORAL TABLET 447803 LAMOTRIGINE Inactive LAMICTAL 100 MG ORAL TABLET by mouth twice a day LAMICTAL 100 MG ORAL TABLET 793397 LAMOTRIGINE Inactive DEPAKOTE SPRINKLES 125 MG ORAL CAPSULE DELAYED RELEASE SPRINKLE 4 capsules by mouth twice daily DEPAKOTE SPRINKLES 125 MG ORAL CAPSULE DELAYED RELEASE SPRINKLE 9205033 DIVALPROEX SODIUM Inactive DILANTIN 100 MG ORAL CAPSULE Take one by mouth daily DILANTIN 100 MG ORAL CAPSULE 160468 PHENYTOIN SODIUM EXTENDED Inactive INVEGA 6 MG ORAL TABLET EXTENDED RELEASE 24 HOUR 1 TAB ONCE DAILY INVEGA 6 MG ORAL TABLET EXTENDED RELEASE 24 HOUR PALIPERIDONE Inactive TYLENOL 325 MG ORAL TABLET 1-2 pills by mouth every 6 hours if needed for pain /fever TYLENOL 325 MG ORAL TABLET 668491 ACETAMINOPHEN Inactive ZOFRAN 4 MG ORAL TABLET 1 po q6hr PRN Nausea ZOFRAN 4 MG ORAL TABLET 694014 ONDANSETRON HCL Inactive ADULT ASPIRIN EC LOW STRENGTH 81 MG ORAL TABLET DELAYED RELEASE Take one by mouth daily ADULT ASPIRIN EC LOW STRENGTH 81 MG ORAL TABLET DELAYED RELEASE 967968 ASPIRIN Inactive FUROSEMIDE 40 MG ORAL TABLET Take one by mouth daily FUROSEMIDE 40 MG ORAL TABLET 172658 FUROSEMIDE Inactive BACTRIM DS 800-160 MG ORAL TABLET 1 twice a day BACTRIM DS 800-160 MG ORAL TABLET 882975 SULFAMETHOXAZOLE-TRIMETHOPRIM Inactive IPRATROPIUM-ALBUTEROL 0.5-2.5 (3) MG/3ML INHALATION SOLUTION 1 neb treatment QID for cough Dx: J06.9 IPRATROPIUM-ALBUTEROL 0.5-2.5 ( 3) MG/3ML INHALATION SOLUTION 4111803 IPRATROPIUM-ALBUTEROL Inactive TYLENOL 8 HOUR 650 MG [...] a day LAMICTAL 25 MG ORAL TABLET 052655 LAMOTRIGINE Inactive NOVOLOG 100 UNIT/ML SUBCUTANEOUS SOLUTION 10 UNITS BEFORE SUPPER NOVOLOG 100 UNIT/ML SUBCUTANEOUS SOLUTION INSULIN ASPART Inactive NOVOLOG 100 UNIT/ML SUBCUTANEOUS SOLUTION 10 UNITS BID BEFORE BREAKFAST AND LUNCH NOVOLOG 100 UNIT/ML SUBCUTANEOUS SOLUTION INSULIN ASPART Inactive BANOPHEN 25 MG ORAL TABLET 1 po every 6 hours PRN allergic reaction BANOPHEN 25 MG ORAL TABLET 4708259 DIPHENHYDRAMINE HCL Inactive IPRATROPIUM-ALBUTEROL 0.5-2.5 (3) MG/3ML INHALATION SOLUTION 1 neb treatment four times daily, for cough IPRATROPIUM-ALBUTEROL 0.5- 2.5 (3) MG/3ML INHALATION SOLUTION 8266254 IPRATROPIUM-ALBUTEROL Inactive BACTRIM DS 800-160 MG ORAL TABLET 1 tab by mouth twice daily 2016 BACTRIM DS 800-160 MG ORAL TABLET 276578 TRIMETHOPRIM- SULFAMETHOXAZOLE Inactive Advance Directives Directive Description Start Date DURABLE POWER OF AURIST FOR HEALTHCARE PERMISSION TO SHARE ADVANCED DIRECTIVE [...] temperature blood pressure, diastolic 91 mm[Hg] BP adly blood pressure, systolic 180 mm[Hg] BP sys [...] HGBA1C - Chemistry sodium, serum 123 mmol/L 655-917 1622/04/25 carbon dioxide, venous blood 26.2 mmol/L 21.0-32.0 [...] level 35 mg/dL Office Visit: 3 MO F/U-RD,[facility] - Basic LDL target level 100 mg/dL Office Visit: 3 MO F/U-RD,[facility] - Chemistry HDL cholesterol, serum, target level 40 mg/dL triglyceride, target level 150 mg/dL cholesterol, target level 200 mg/dL [facility] - Basic LDL target level 100 mg/dL [facility] - Chemistry cholesterol, target level 200 [...] mg/dL Encounters Code Encounter Date Provider Facility CPT-28937 [id number] Vst-Est Level IV 10:45:13 CDT Pelon Quach MD [facility] CPT-40989 35541-Uoo Vst-Est Level IV 13:48:14 CDT Pelon Quach MD [facility] CPT-50008 [id number] Vst-Est Level II 13:40:42 CDT Pelon Quach MD [facility] CPT-14465 26112-Uez Vst-Est Level III 13:36:24 CDT Pelon Quach MD [facility] CPT-62155 Level 4 Est. Patient 18:11:18 CDT Pelon Quach MD [facility] CPT-72561 Level 4 Est. Patient 14:46:38 CDT Pelon Quach MD [facility] CPT-83645 Level 4 Est. Patient 08:43:11 CDT Pelon Quach MD [facility] CPT-97546 Level 4 Est. Patient 14:27:30 CDT Pelon Quach MD [facility] CPT-81780 Level 3 Est. Patient 10:32:17 CDT Jaycee Torrez APRN [facility] CPT-62395 Level 3 Est. Patient 10:15:07 CDT Pelon Quach MD [facility] CPT-41233 Level 4 Est. Patient 09:30:54 CDT Pelon Quach MD [facility] CPT-21928 Level 4 Est. Patient 14:34:25 CDT Pelon Quach MD [facility] CPT-54654 Level 3 Est. Patient 11:51:35 HOUSE DIRECTOR Rick Henson DO [facility]-47292 Level 3 Est. Patient 12:13:33 HOUSE DIRECTOR Erik Baptiste MD [facility]-93850 Level 3 Est. Patient 09:40:44 HOUSE DIRECTOR Jaycee Torrez [facility] CPT-27618 Level 3 Est. Patient 09:36:32 HOUSE DIRECTOR Jaycee Torrez [facility] CPT-59634 Level 4 Est. Patient 16:57:02 HOUSE DIRECTOR Pelon Quach MD [facility]-40528 Level 4 Est. Patient 22:19:34 CDT Pelon Quach MD [facility]-46340 Level 3 Est. Patient 00:34:41 CDT Pelon Quach MD [facility]-01753 Level 4 Est. Patient 11:19:14 CDT Pelon Quach MD [facility]-29063 Level 4 Est. Patient 16:43:30 HOUSE DIRECTOR Pelon Quach MD [facility]-97159 Level 4 Est. Patient 12:42:18 CDT Pelon Quach MD [facility] CPT-27249 Level 4 Est. Patient 11:52:20 CDT Pelon Quach MD [facility] CPT-31667 Level 4 Est. Patient 13:59:46 CDT Pelon Quach MD [facility] CPT-71998 Level 4 Est. Patient 15:10:48 CDT Pelon Quach MD [facility]-77294 Level 4 Est. Patient 17:13:06 CDT Pelon Quach MD [facility] CPT-25404 Level 4 Est. Patient 18:47:47 CDT Pelon Quach MD [facility] CPT-16806 Level 3 Est. Patient 21:01:27 CDT Pelon Quach MD [facility] CPT-19174 Level 3 Est. Patient 14:07:03 CDT Taty Alvarado MD PhD [facility] CPT-71579 Level 3 New Patient 21:39:52 HOUSE DIRECTOR Pelon Quach MD [facility] CPT-20359 Level 3 Est. Patient 14:28:44 CDT Glenn Thornton MD [facility] CPT-96749 Level 3 Est. Patient 16:35:00 CDT Glenn Thornton MD [facility] CPT-05196 Level 4 New Patient 17:06:27 CDT Glenn Thornton MD [facility] [place] Procedures Code Procedure Name Date Entry Date Standard Description CPT-94733 Shoulder, right, comp min 2V - XRAY USE ONLY 10:47:10 CDT CPT-G0439 Subsequent Annual Wellness Exam 18:11:17 CDT CPT-G0438 Initial Annual Wellness Exam 09:30:54 CDT CPT-00355 Prevnar 13 Intramuscular Suspension 14:34:25 CDT 12/27 CPT-84002 Chest 2V Frontal and Lat - XRAY USE ONLY 11:56:13 HOUSE DIRECTOR CPT-81276 Cystoscopy 14:28:44 CDT CPT-31330 Bladder Scan 14:28:44 CDT CPT-39386 Indwelling Cath Change 17:06:27 CDT CPT-84781 Cystoscopy 17:06:27 CDT
--- OUTSIDE RECORDS SUMMARY | 2018-06-22 11:28 | XMS REPORT | Clinical Summary ---
Author Author Admin, E Organization [facility] Address Unknown Phone Unavailable Allergies, Adverse Reactions, [...] effect of superficial injury Confusion 298.9 Resolved ePlon Quach MD Unspecified psychosis Body Mass Index [...] as needed for muscle spasm/pain CYCLOBENZAPRINE HCL 92919401723 Active Pelon Quach MD Active BENADRYL 25 MG ORAL CAPSULE 1 po q8hr PRN Congestion DIPHENHYDRAMINE HCL 53170888846 Active Pelon Quach MD Active ZOFRAN 4 MG ORAL TABLET 1 po q6hr PRN Nausea ONDANSETRON HCL 96791248960 Active Pelon Quach MD Active IMODIUM A-D 2 MG ORAL TABLET One QID prn diarrhea. No more than 4 tabs daily LOPERAMIDE HCL 01649802455 Active Pelon Quach MD Active TYLENOL 325 MG ORAL TABLET 2 tabs po prn for pain elevated temp ACETAMINOPHEN 13943548688 Active Pelon Quach MD Active MUCINEX D 60-600 MG ORAL TABLET EXTENDED RELEASE 12 HOUR 1 po BID PRN Congestion PSEUDOEPHEDRINE-GUAIFENESIN 46090192943 Active Pelon Quach MD Active IBUPROFEN 200 MG ORAL TABLET q 6hrs prn pain IBUPROFEN 07682500211 Active Pelon Quach MD Active LORATADINE 10 MG ORAL TABLET 1 tablet by mouth daily prn LORATADINE 35603590671 Active Pelon Quach MD Active BANOPHEN 25 MG ORAL TABLET 1 po every 6 hours PRN allergic reaction DIPHENHYDRAMINE HCL 79634893764 No Longer Active Pelon Quach MD Active EASY TOUCH ALCOHOL PREP MEDIUM 70 % PAD Use with each finger stick and insulin admin Dx: E11.9 ALCOHOL SWABS 23372402691 Active Jaycee Torrez APRN Active HUMALOG KWIKPEN 100 UNIT/ML SUBCUTANEOUS SOLUTION PEN-INJECTOR inject 10 units subcutaneously before meals also sliding scale INSULIN LISPRO 55658478453 Active Pelon Quach MD Active NOVOLOG 100 UNIT/ML SUBCUTANEOUS SOLUTION 10 UNITS BID BEFORE BREAKFAST AND LUNCH INSULIN ASPART 47256833109 No Longer Active NICOLETTE Hitchcock Active NOVOLOG 100 UNIT/ML SUBCUTANEOUS SOLUTION 10 UNITS BEFORE SUPPER INSULIN ASPART 00755334858 No Longer Active NICOLETTE Hitchcock Active INVEGA 6 MG ORAL TABLET EXTENDED RELEASE 24 HOUR 1 po daily for schizophrenia PALIPERIDONE 56714063146 Active Pelon Quach MD Active LAMICTAL 25 MG ORAL TABLET 2 tabs by mouth twice a day LAMOTRIGINE 77983272257 No Longer Active Pelon Quach MD Active BACTROBAN 2 % EXTERNAL OINTMENT Apply to affected area BID 06/28 MUPIROCIN 67470916933 No Longer Active Pelon Quach MD Active INVEGA 6 MG ORAL TABLET EXTENDED RELEASE 24 HOUR 1 po daily for Schizophrenia PALIPERIDONE 71659489015 No Longer Active Pelon Quach MD Active TYLENOL 8 HOUR 650 MG ORAL TABLET EXTENDED RELEASE Take 1 tab po up to 3 times daily as needed ACETAMINOPHEN 34641186345 No Longer Active Pelon Quach MD Active IPRATROPIUM-ALBUTEROL 0.5-2.5 (3) MG/3ML INHALATION SOLUTION 1 neb treatment QID for cough Dx: J06.9 IPRATROPIUM-ALBUTEROL 19782932842 No Longer Active Pelon Quach MD Active BACTRIM DS 800-160 MG ORAL TABLET 1 tab by mouth twice daily 2016 TRIMETHOPRIM-SULFAMETHOXAZOLE 38752394621 No Longer Active Pelon Quach MD Active BACTRIM DS 800-160 MG ORAL TABLET 1 twice a day SULFAMETHOXAZOLE-TRIMETHOPRIM 64936270867 No Longer Active Pelon Quach MD Active IPRATROPIUM-ALBUTEROL 0.5-2.5 (3) MG/3ML INHALATION SOLUTION 1 neb treatment four times daily, for cough IPRATROPIUM-ALBUTEROL 96885694576 No Longer Active Jaycee Torrez APRN Active FUROSEMIDE 40 MG ORAL TABLET Take one by mouth daily FUROSEMIDE 52858932784 No Longer Active Jaycee Torrez APRN Active LANTUS 100 UNIT/ML SUBCUTANEOUS SOLUTION 20 SUBQ AT HS INSULIN GLARGINE 79843742848 Active Pelon Quach MD Active LAMICTAL 25 MG ORAL TABLET 2 tabs po BID for convulsions LAMOTRIGINE 29017040947 Active Jaycee Torrez APRN Active LASIX 20 MG ORAL TABLET 1 tablet by mouth every morning for edema FUROSEMIDE 23013279709 Active Jaycee Torrez APRN Active BUSPIRONE HCL 10 MG ORAL TABLET 1 tab by mouth BID BUSPIRONE HCL 52050507108 Active Jaycee Torrez APRN Active ADULT ASPIRIN EC LOW STRENGTH 81 MG ORAL TABLET DELAYED RELEASE Take one by mouth daily ASPIRIN 72644567833 No Longer Active Pelon Quach MD Active ASPIRIN 81 MG ORAL TABLET 1 po qd ASPIRIN 99180514239 Active Pelon Quach MD Active ZOFRAN 4 MG ORAL TABLET 1 po q6hr PRN Nausea ONDANSETRON HCL 46643698641 No Longer Active Pelon Quach MD Active TYLENOL 325 MG ORAL TABLET 1-2 pills by mouth every 6 hours if needed for pain /fever ACETAMINOPHEN 34245111039 No Longer Active Pelon Quach MD Active INVEGA 6 MG ORAL TABLET EXTENDED RELEASE 24 HOUR 1 TAB ONCE DAILY PALIPERIDONE 08305339554 No Longer Active Carly Suggs Active TEGRETOL 200 MG ORAL TABLET by mouth twice a day CARBAMAZEPINE 11541224027 Active Taty Alvarado MD PhD Active FLOMAX 0.4 MG ORAL CAPSULE 1 Daily TAMSULOSIN HCL 94300368727 Active Marianelachandrika Juarez Active DILANTIN 100 MG ORAL CAPSULE Take one by mouth daily PHENYTOIN SODIUM EXTENDED 30010508671 No Longer Active Marianela Juarez Active DEPAKOTE SPRINKLES 125 MG ORAL CAPSULE DELAYED RELEASE SPRINKLE 4 capsules by mouth twice daily DIVALPROEX SODIUM 41616868975 No Longer Active Marianela Raronny Active LAMICTAL 200 MG ORAL TABLET 1 BY MOUTH TWICE A DAY LAMOTRIGINE 03937116801 Active Marianela Raida Active LAMICTAL 100 MG ORAL TABLET by mouth twice a day LAMOTRIGINE 91434794227 No Longer Active Marianela Raida Active LAMICTAL 150 MG ORAL TABLET by mouth twice a day LAMOTRIGINE 96786393370 No Longer Active Marianela Raida Active DILANTIN 100 MG ORAL CAPSULE Take three by mouth daily PHENYTOIN SODIUM EXTENDED 18610850813 No Longer Active Marianela Juarez Active SENOKOT 8.6 MG ORAL TABLET take at bedtime SENNOSIDES 34764187306 Active Pelon Quach MD Active LIPITOR 20 MG ORAL TABLET take at bedtime ATORVASTATIN CALCIUM 55283444395 Active Glenn Thornton MD Active LISINOPRIL 2.5 MG ORAL TABLET Take one by mouth daily LISINOPRIL 26907950397 Active Glenn Thornton MD Active TRENTAL 400 MG CR-TABS by mouth twice a day PENTOXIFYLLINE 33398317653 Active Glenn Thornton MD Active KLOR-CON 10 10 MEQ ORAL TABLET EXTENDED RELEASE Take one by mouth daily POTASSIUM CHLORIDE 74365717430 Active Glenn Thornton MD Active DILANTIN 100 MG ORAL CAPSULE Take three by mouth daily DILANTIN 100 MG ORAL CAPSULE 246694 PHENYTOIN SODIUM EXTENDED Inactive LAMICTAL 150 MG ORAL TABLET by mouth twice a day LAMICTAL 150 MG ORAL TABLET 109919 LAMOTRIGINE Inactive LAMICTAL 100 MG ORAL TABLET by mouth twice a day LAMICTAL 100 MG ORAL TABLET 702386 LAMOTRIGINE Inactive DEPAKOTE SPRINKLES 125 MG ORAL CAPSULE DELAYED RELEASE SPRINKLE 4 capsules by mouth twice daily DEPAKOTE SPRINKLES 125 MG ORAL CAPSULE DELAYED RELEASE SPRINKLE 2479869 DIVALPROEX SODIUM Inactive DILANTIN 100 MG ORAL CAPSULE Take one by mouth daily DILANTIN 100 MG ORAL CAPSULE 349299 PHENYTOIN SODIUM EXTENDED Inactive INVEGA 6 MG ORAL TABLET EXTENDED RELEASE 24 HOUR 1 TAB ONCE DAILY INVEGA 6 MG ORAL TABLET EXTENDED RELEASE 24 HOUR PALIPERIDONE Inactive TYLENOL 325 MG ORAL TABLET 1-2 pills by mouth every 6 hours if needed for pain /fever TYLENOL 325 MG ORAL TABLET 028370 ACETAMINOPHEN Inactive ZOFRAN 4 MG ORAL TABLET 1 po q6hr PRN Nausea ZOFRAN 4 MG ORAL TABLET 695073 ONDANSETRON HCL Inactive ADULT ASPIRIN EC LOW STRENGTH 81 MG ORAL TABLET DELAYED RELEASE Take one by mouth daily ADULT ASPIRIN EC LOW STRENGTH 81 MG ORAL TABLET DELAYED RELEASE 960817 ASPIRIN Inactive FUROSEMIDE 40 MG ORAL TABLET Take one by mouth daily FUROSEMIDE 40 MG ORAL TABLET 129733 FUROSEMIDE Inactive BACTRIM DS 800-160 MG ORAL TABLET 1 twice a day BACTRIM DS 800-160 MG ORAL TABLET 975914 SULFAMETHOXAZOLE-TRIMETHOPRIM Inactive IPRATROPIUM-ALBUTEROL 0.5-2.5 (3) MG/3ML INHALATION SOLUTION 1 neb treatment QID for cough Dx: J06.9 IPRATROPIUM-ALBUTEROL 0.5-2.5 ( 3) MG/3ML INHALATION SOLUTION 1979805 IPRATROPIUM-ALBUTEROL Inactive TYLENOL 8 HOUR 650 MG [...] a day LAMICTAL 25 MG ORAL TABLET 867961 LAMOTRIGINE Inactive NOVOLOG 100 UNIT/ML SUBCUTANEOUS SOLUTION 10 UNITS BEFORE SUPPER NOVOLOG 100 UNIT/ML SUBCUTANEOUS SOLUTION INSULIN ASPART Inactive NOVOLOG 100 UNIT/ML SUBCUTANEOUS SOLUTION 10 UNITS BID BEFORE BREAKFAST AND LUNCH NOVOLOG 100 UNIT/ML SUBCUTANEOUS SOLUTION INSULIN ASPART Inactive BANOPHEN 25 MG ORAL TABLET 1 po every 6 hours PRN allergic reaction BANOPHEN 25 MG ORAL TABLET 8870508 DIPHENHYDRAMINE HCL Inactive IPRATROPIUM-ALBUTEROL 0.5-2.5 (3) MG/3ML INHALATION SOLUTION 1 neb treatment four times daily, for cough IPRATROPIUM-ALBUTEROL 0.5- 2.5 (3) MG/3ML INHALATION SOLUTION 8125959 IPRATROPIUM-ALBUTEROL Inactive BACTRIM DS 800-160 MG ORAL TABLET 1 tab by mouth twice daily 2016 BACTRIM DS 800-160 MG ORAL TABLET 851176 TRIMETHOPRIM- SULFAMETHOXAZOLE Inactive Advance Directives Directive Description Start Date DURABLE POWER OF GLOBAL CLINICAL LEADER FOR HEALTHCARE PERMISSION TO SHARE ADVANCED DIRECTIVE [...] HGBA1C - Chemistry sodium, serum 123 mmol/L 787-703 7668/04/25 carbon dioxide, venous blood 26.2 mmol/L 21.0-32.0 [...] level 35 mg/dL Office Visit: 3 MO F/U-RD,[facility] - Basic LDL target level 100 mg/dL Office Visit: 3 MO F/U-RD,[facility] - Chemistry HDL cholesterol, serum, target level 40 mg/dL triglyceride, target level 150 mg/dL cholesterol, target level 200 mg/dL Office Visit: [facility] - Basic LDL target level 100 mg/dL Office Visit: [facility] - Chemistry cholesterol, target level 200 mg/dL [...] mg/dL Encounters Code Encounter Date Provider Facility CPT-70192 [id number] Vst-Est Level IV 10:45:13 CDT Pelon Quach MD [facility] CPT-44665 [id number] Vst-Est Level IV 13:48:14 CDT Pelon Quach MD [facility] CPT-49855 [id number] Vst-Est Level II 13:40:42 CDT Pelon Quach MD [facility] CPT-36054 42638-Rsv Vst-Est Level III 13:36:24 CDT Pelon Quach MD [facility] CPT-38982 Level 4 Est. Patient 18:11:18 CDT Pelon Quach MD [facility] CPT-84868 Level 4 Est. Patient 14:46:38 CDT Pelon Quach MD [facility] CPT-15356 Level 4 Est. Patient 08:43:11 CDT Pelon Quach MD [facility] CPT-25766 Level 4 Est. Patient 14:27:30 CDT Pelon Quach MD [facility] CPT-06514 Level 3 Est. Patient 10:32:17 CDT Jaycee Torrez APRN [facility] CPT-84325 Level 3 Est. Patient 10:15:07 CDT Pelon Quach MD [facility] CPT-21650 Level 4 Est. Patient 09:30:54 CDT Pelon Quach MD [facility] CPT-02091 Level 4 Est. Patient 14:34:25 CDT Pelon Quach MD [facility] CPT-63155 Level 3 Est. 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 Patient 12:13:33 [employer] I ASSEMBLER Erik Baptiste MD [facility]-77348 Level 3 Est. Patient 09:40:44 [employer] I ASSEMBLER Jaycee Torrez [facility] CPT-29456 Level 3 Est. Patient 09:36:32 [employer] I ASSEMBLER Jaycee Torrez [facility] CPT-84169 Level 4 Est. Patient 16:57:02 [employer] I ASSEMBLER ePlon Quach MD [facility]-57587 Level 4 Est. Patient 22:19:34 CDT Pelon Quach MD [facility]-22271 Level 3 Est. Patient 00:34:41 CDT Pelon Quach MD [facility]-57624 Level 4 Est. Patient 11:19:14 CDT Pelon Quach MD [facility]-36124 Level 4 Est. 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 Patient 12:42:18 CDT Pelon Quach MD [facility] CPT-45450 Level 4 Est. Patient 11:52:20 CDT Pelon Quach MD [facility] CPT-79251 Level 4 Est. Patient 13:59:46 CDT Pelon Quach MD [facility] CPT-22685 Level 4 Est. Patient 15:10:48 CDT Pelon Quach MD [facility]-13480 Level 4 Est. Patient 17:13:06 CDT Pelon Quach MD [facility] CPT-74073 Level 4 Est. Patient 18:47:47 CDT Pelon Quach MD [facility] CPT-91440 Level 3 Est. Patient 21:01:27 CDT Pelon Quach MD [facility] CPT-06254 Level 3 Est. 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 Patient 14:28:44 CDT Glenn Thornton MD [facility] CPT-44742 Level 3 Est. Patient 16:35:00 CDT Glenn Thornton MD 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
--- OUTSIDE RECORDS SUMMARY | 2018-06-22 11:29 | XMS REPORT | Clinical Summary ---
Author Author Admin, ONESIMO Organization [facility] [place] Address Unknown Phone Unavailable Allergies, Adverse Reactions, [...] G E R D 530.81 Active Muna Gallardo Esophageal reflux Diabetes-Type 2 250.00 Resolved Pelon [...] Quach MD Encounter for removal of sutures ANXIETY ICD-300.00 Inactive Pelon Quach MD ATRIAL FIBRILLATION ICD-427.31 Inactive Pelon Quach MD URINARY RETENTION ICD-788.20 Inactive Pelon Quach MD Diabetes-Type 2 ICD-250.00 Inactive Pelon Quach MD Blister, foot/toe w/o infection ICD-917.2 Inactive Pelon Qucah MD Diabetes mellitus, type II, on insulin, uncontrolled ICD-250.72 Inactive Pelon Quach MD Post-op care ICD-V67.00 Inactive Pelon uQach MD Inguinal hernia, right ICD-550.90 Inactive Pelon [...] as needed for muscle spasm/pain CYCLOBENZAPRINE HCL 62045102488 Active Pelon Quach MD Active BENADRYL 25 MG ORAL CAPSULE 1 po q8hr PRN Congestion DIPHENHYDRAMINE HCL 09469920717 Active Pelon Quach MD Active ZOFRAN 4 MG ORAL TABLET 1 po q6hr PRN Nausea ONDANSETRON HCL 56758881479 Active Pelon Quach MD Active IMODIUM A-D 2 MG ORAL TABLET One QID prn diarrhea. No more than 4 tabs daily LOPERAMIDE HCL 86246555076 Active Pelon Quach MD Active TYLENOL 325 MG ORAL TABLET 2 tabs po prn for pain elevated temp ACETAMINOPHEN 23370486771 Active Pelon Quach MD Active MUCINEX D 60-600 MG ORAL TABLET EXTENDED RELEASE 12 HOUR 1 po BID PRN Congestion PSEUDOEPHEDRINE-GUAIFENESIN 54616350127 Active Pelon Quach MD Active IBUPROFEN 200 MG ORAL TABLET q 6hrs prn pain IBUPROFEN 69173739325 Active Pelon Quach MD Active LORATADINE 10 MG ORAL TABLET 1 tablet by mouth daily prn LORATADINE 87983542664 Active Pelon Quach MD Active BANOPHEN 25 MG ORAL TABLET 1 po every 6 hours PRN allergic reaction DIPHENHYDRAMINE HCL 18670270016 No Longer Active Pelon Quach MD Active EASY TOUCH ALCOHOL PREP MEDIUM 70 % PAD Use with each finger stick and insulin admin Dx: E11.9 ALCOHOL SWABS 49274984788 Active Jaycee Torrez APRN Active HUMALOG KWIKPEN 100 UNIT/ML SUBCUTANEOUS SOLUTION PEN-INJECTOR inject 10 units subcutaneously before meals also sliding scale INSULIN LISPRO 02199223631 Active Pelon Quach MD Active NOVOLOG 100 UNIT/ML SUBCUTANEOUS SOLUTION 10 UNITS BID BEFORE BREAKFAST AND LUNCH INSULIN ASPART 89323663370 No Longer Active NICOLETTE Hitchcock Active NOVOLOG 100 UNIT/ML SUBCUTANEOUS SOLUTION 10 UNITS BEFORE SUPPER INSULIN ASPART 40316689271 No Longer Active NICOLETTE Hitchcock Active INVEGA 6 MG ORAL TABLET EXTENDED RELEASE 24 HOUR 1 po daily for schizophrenia PALIPERIDONE 94994871540 Active Pelon Quach MD Active LAMICTAL 25 MG ORAL TABLET 2 tabs by mouth twice a day LAMOTRIGINE 13138217022 No Longer Active Pelon Quach MD Active BACTROBAN 2 % EXTERNAL OINTMENT Apply to affected area BID 06/28 MUPIROCIN 57627559631 No Longer Active Pelon Quach MD Active INVEGA 6 MG ORAL TABLET EXTENDED RELEASE 24 HOUR 1 po daily for Schizophrenia PALIPERIDONE 51653706422 No Longer Active Pelon Quach MD Active TYLENOL 8 HOUR 650 MG ORAL TABLET EXTENDED RELEASE Take 1 tab po up to 3 times daily as needed ACETAMINOPHEN 31284467065 No Longer Active Pelon Quach MD Active IPRATROPIUM-ALBUTEROL 0.5-2.5 (3) MG/3ML INHALATION SOLUTION 1 neb treatment QID for cough Dx: J06.9 IPRATROPIUM-ALBUTEROL 36329976249 No Longer Active Pelon Quach MD Active BACTRIM DS 800-160 MG ORAL TABLET 1 tab by mouth twice daily 2016 TRIMETHOPRIM-SULFAMETHOXAZOLE 33523030980 No Longer Active Pelon Quach MD Active BACTRIM DS 800-160 MG ORAL TABLET 1 twice a day SULFAMETHOXAZOLE-TRIMETHOPRIM 24919731000 No Longer Active Pelon Quach MD Active IPRATROPIUM-ALBUTEROL 0.5-2.5 (3) MG/3ML INHALATION SOLUTION 1 neb treatment four times daily, for cough IPRATROPIUM-ALBUTEROL 25546349447 No Longer Active Jaycee Torrez APRN Active FUROSEMIDE 40 MG ORAL TABLET Take one by mouth daily FUROSEMIDE 41114567426 No Longer Active Jaycee Torrez APRN Active LANTUS 100 UNIT/ML SUBCUTANEOUS SOLUTION 20 SUBQ AT HS INSULIN GLARGINE 68464073665 Active Pelon Quach MD Active LAMICTAL 25 MG ORAL TABLET 2 tabs po BID for convulsions LAMOTRIGINE 86892991529 Active Jaycee Torrez APRN Active LASIX 20 MG ORAL TABLET 1 tablet by mouth every morning for edema FUROSEMIDE 98585735206 Active Jaycee Torrez APRN Active BUSPIRONE HCL 10 MG ORAL TABLET 1 tab by mouth BID BUSPIRONE HCL 84235618146 Active Jaycee Torrez APRN Active ADULT ASPIRIN EC LOW STRENGTH 81 MG ORAL TABLET DELAYED RELEASE Take one by mouth daily ASPIRIN 42880771810 No Longer Active Pelon Quach MD Active ASPIRIN 81 MG ORAL TABLET 1 po qd ASPIRIN 26659767779 Active Pelon Quach MD Active ZOFRAN 4 MG ORAL TABLET 1 po q6hr PRN Nausea ONDANSETRON HCL 94293422696 No Longer Active Pelon Quach MD Active TYLENOL 325 MG ORAL TABLET 1-2 pills by mouth every 6 hours if needed for pain /fever ACETAMINOPHEN 96695251112 No Longer Active Pelon Quach MD Active INVEGA 6 MG ORAL TABLET EXTENDED RELEASE 24 HOUR 1 TAB ONCE DAILY PALIPERIDONE 36890267813 No Longer Active Carly Suggs Active TEGRETOL 200 MG ORAL TABLET by mouth twice a day CARBAMAZEPINE 79461955045 Active Taty Alvarado MD PhD Active FLOMAX 0.4 MG ORAL CAPSULE 1 Daily TAMSULOSIN HCL 37646785063 Active Marianela Juarez Active DILANTIN 100 MG ORAL CAPSULE Take one by mouth daily PHENYTOIN SODIUM EXTENDED 32771802167 No Longer Active Marianela Juarez Active DEPAKOTE SPRINKLES 125 MG ORAL CAPSULE DELAYED RELEASE SPRINKLE 4 capsules by mouth twice daily DIVALPROEX SODIUM 16799489176 No Longer Active Marianelachandrika Juarez Active LAMICTAL 200 MG ORAL TABLET 1 BY MOUTH TWICE A DAY LAMOTRIGINE 02370210704 Active Marianela Raida Active LAMICTAL 100 MG ORAL TABLET by mouth twice a day LAMOTRIGINE 61529877266 No Longer Active Marianela Raida Active LAMICTAL 150 MG ORAL TABLET by mouth twice a day LAMOTRIGINE 91184227700 No Longer Active Marianelachandrika Juarez Active DILANTIN 100 MG ORAL CAPSULE Take three by mouth daily PHENYTOIN SODIUM EXTENDED 00819130086 No Longer Active Marianela Juarez Active SENOKOT 8.6 MG ORAL TABLET take at bedtime [facility] 23125177108 Active Pelon Quach MD Active LIPITOR 20 MG ORAL TABLET take at bedtime ATORVASTATIN CALCIUM 88123783774 Active Glenn Thornton MD Active LISINOPRIL 2.5 MG ORAL TABLET Take one by mouth daily LISINOPRIL 66919353422 Active Glenn Thornton MD Active TRENTAL 400 MG CR-TABS by mouth twice a day PENTOXIFYLLINE 22175677418 Active Glenn Thornton MD Active KLOR-CON 10 10 MEQ ORAL TABLET EXTENDED RELEASE Take one by mouth daily POTASSIUM CHLORIDE 56582375038 Active Glenn Thornton MD Active DILANTIN 100 MG ORAL CAPSULE Take three by mouth daily DILANTIN 100 MG ORAL CAPSULE 846932 PHENYTOIN SODIUM EXTENDED Inactive LAMICTAL 150 MG ORAL TABLET by mouth twice a day LAMICTAL 150 MG ORAL TABLET 312082 LAMOTRIGINE Inactive LAMICTAL 100 MG ORAL TABLET by mouth twice a day LAMICTAL 100 MG ORAL TABLET 990571 LAMOTRIGINE Inactive DEPAKOTE SPRINKLES 125 MG ORAL CAPSULE DELAYED RELEASE SPRINKLE 4 capsules by mouth twice daily DEPAKOTE SPRINKLES 125 MG ORAL CAPSULE DELAYED RELEASE SPRINKLE 5216706 DIVALPROEX SODIUM Inactive DILANTIN 100 MG ORAL CAPSULE Take one by mouth daily DILANTIN 100 MG ORAL CAPSULE 275704 PHENYTOIN SODIUM EXTENDED Inactive INVEGA 6 MG ORAL TABLET EXTENDED RELEASE 24 HOUR 1 TAB ONCE DAILY INVEGA 6 MG ORAL TABLET EXTENDED RELEASE 24 HOUR PALIPERIDONE Inactive TYLENOL 325 MG ORAL TABLET 1-2 pills by mouth every 6 hours if needed for pain /fever TYLENOL 325 MG ORAL TABLET 616769 ACETAMINOPHEN Inactive ZOFRAN 4 MG ORAL TABLET 1 po q6hr PRN Nausea ZOFRAN 4 MG ORAL TABLET 931255 ONDANSETRON HCL Inactive ADULT ASPIRIN EC LOW STRENGTH 81 MG ORAL TABLET DELAYED RELEASE Take one by mouth daily ADULT ASPIRIN EC LOW STRENGTH 81 MG ORAL TABLET DELAYED RELEASE 455067 ASPIRIN Inactive FUROSEMIDE 40 MG ORAL TABLET Take one by mouth daily FUROSEMIDE 40 MG ORAL TABLET 237593 FUROSEMIDE Inactive BACTRIM DS 800-160 MG ORAL TABLET 1 twice a day BACTRIM DS 800-160 MG ORAL TABLET 19821119 SULFAMETHOXAZOLE-TRIMETHOPRIM Inactive IPRATROPIUM-ALBUTEROL 0.5-2.5 (3) MG/3ML INHALATION SOLUTION 1 neb treatment QID for cough Dx: J06.9 IPRATROPIUM-ALBUTEROL 0.5-2.5 ( 3) MG/3ML INHALATION SOLUTION 6004636 IPRATROPIUM-ALBUTEROL Inactive TYLENOL 8 HOUR 650 MG [...] a day LAMICTAL 25 MG ORAL TABLET 366909 LAMOTRIGINE Inactive NOVOLOG 100 UNIT/ML SUBCUTANEOUS SOLUTION 10 UNITS BEFORE SUPPER NOVOLOG 100 UNIT/ML SUBCUTANEOUS SOLUTION INSULIN ASPART Inactive NOVOLOG 100 UNIT/ML SUBCUTANEOUS SOLUTION 10 UNITS BID BEFORE BREAKFAST AND LUNCH NOVOLOG 100 UNIT/ML SUBCUTANEOUS SOLUTION INSULIN ASPART Inactive BANOPHEN 25 MG ORAL TABLET 1 po every 6 hours PRN allergic reaction BANOPHEN 25 MG ORAL TABLET 3132028 DIPHENHYDRAMINE HCL Inactive IPRATROPIUM-ALBUTEROL 0.5-2.5 (3) MG/3ML INHALATION SOLUTION 1 neb treatment four times daily, for cough IPRATROPIUM-ALBUTEROL 0.5- 2.5 (3) MG/3ML INHALATION SOLUTION 1820630 IPRATROPIUM-ALBUTEROL Inactive BACTRIM DS 800-160 MG ORAL TABLET 1 tab by mouth twice daily 2016 BACTRIM DS 800-160 MG ORAL TABLET 19821119 TRIMETHOPRIM- SULFAMETHOXAZOLE Inactive Advance Directives Directive Description Start Date DURABLE POWER OF [facility] OPERATOR FOR HEALTHCARE PERMISSION TO SHARE ADVANCED DIRECTIVE Vital Signs Date Name Value Unit Range Description blood pressure, diastolic 68 mm[Hg] BP daly [...] HGBA1C - Chemistry sodium, serum 123 mmol/L 256-839 2423/04/25 carbon dioxide, venous blood 26.2 mmol/L 21.0-32.0 [...] count 331 10^3/MM^3 10*3/mm3 142-424 Lab Report: HGBA1C - Chemistry hemoglobin A1C, blood, as % [...] level 35 mg/dL Office Visit: 3 MO F/U-RD,RMA - Basic LDL target level 100 mg/dL Office Visit: 3 MO F/U-RD,RMA - Chemistry HDL cholesterol, serum, target level 40 mg/dL triglyceride, target level 150 mg/dL cholesterol, target level 200 mg/dL Office Visit: AWV - Basic LDL target level 100 mg/dL Office Visit: AWV - Chemistry cholesterol, target level 200 mg/dL triglyceride, target level 200 mg/dL HDL cholesterol, serum, target level 35 mg/dL Encounters Code Encounter Date Provider Facility CPT-72642 80348-Qth Vst-Est Level IV 13:48:14 CDT Pelon Quach MD [facility] CPT-42259 09390-Xya Vst-Est Level II 13:40:42 CDT Pelon Quach MD [facility] CPT-77843 90382-Fuf Vst-Est Level III 13:36:24 CDT Pelon Quach MD [facility] CPT-38085 Level 4 Est. Patient 18:11:18 CDT Pelon Quach MD [facility] CPT-10096 Level 4 Est. Patient 14:46:38 CDT Pelon Quach MD [facility] CPT-35039 Level 4 Est. Patient 08:43:11 CDT Pelon Quach MD [facility] CPT-91288 Level 4 Est. Patient 14:27:30 CDT Pelon Quach MD [facility] CPT-32181 Level 3 Est. Patient 10:32:17 CDT Jaycee Torrez APRN [facility] CPT-67964 Level 3 Est. Patient 10:15:07 CDT Pelon Quach MD [facility] CPT-97997 Level 4 Est. Patient 09:30:54 CDT Pelon Quach MD [facility] CPT-85410 Level 4 Est. Patient 14:34:25 CDT Pelon Quach MD [facility] CPT-52763 Level 3 Est. 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-46461 Level 3 Est. 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-22292 Level 3 Est. Patient 09:40:44 UTILITY BILL COLLECTION CLERK Jaycee Torrez [facility]-78947 Level 3 Est. Patient 09:36:32 UTILITY BILL COLLECTION CLERK Jaycee Juan Davidnando [facility]-58780 Level 4 Est. 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-49779 Level 4 Est. Patient 22:19:34 CDT Pelon Quach MD [facility]-43520 Level 3 Est. Patient 00:34:41 CDT Pelon Quach MD [facility]-50967 Level 4 Est. Patient 11:19:14 CDT Pelon Quach MD [facility]-52386 Level 4 Est. 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-16200 Level 4 Est. Patient 12:42:18 CDT Pelon Quach MD [facility]-24716 Level 4 Est. Patient 11:52:20 CDT Pelon Quach MD [facility]-24375 Level 4 Est. Patient 13:59:46 CDT Pelon Quach MD [facility]-23555 Level 4 Est. Patient 15:10:48 CDT Pelon Quach MD [facility]-68822 Level 4 Est. Patient 17:13:06 CDT Pelon Quach MD [facility]-13921 Level 4 Est. Patient 18:47:47 CDT Pelon Quach MD [facility]-90004 Level 3 Est. Patient 21:01:27 CDT Pelon Quach MD [facility] CPT-82168 Level 3 Est. 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 Patient 14:28:44 CDT Glenn Thornton MD [facility] CPT-43880 Level 3 Est. 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
--- OUTSIDE RECORDS SUMMARY | 2018-06-22 11:30 | XMS REPORT | Clinical Summary ---
Author Author Admin, ONESIMO Organization [facility] [place] Address Unknown Phone Unavailable Allergies, Adverse Reactions, [...] as needed for muscle spasm/pain CYCLOBENZAPRINE HCL 64996153495 Active Pelon Quach MD Active BENADRYL 25 MG ORAL CAPSULE 1 po q8hr PRN Congestion DIPHENHYDRAMINE HCL 58409708652 Active Pelon Quach MD Active ZOFRAN 4 MG ORAL TABLET 1 po q6hr PRN Nausea ONDANSETRON HCL 83113978438 Active Pelon Quach MD Active IMODIUM A-D 2 MG ORAL TABLET One QID prn diarrhea. No more than 4 tabs daily LOPERAMIDE HCL 51089816862 Active Pelon Quach MD Active TYLENOL 325 MG ORAL TABLET 2 tabs po prn for pain elevated temp ACETAMINOPHEN 32609503973 Active Pelon Quach MD Active MUCINEX D 60-600 MG ORAL TABLET EXTENDED RELEASE 12 HOUR 1 po BID PRN Congestion PSEUDOEPHEDRINE-GUAIFENESIN 11117739069 Active Pelon Quach MD Active IBUPROFEN 200 MG ORAL TABLET q 6hrs prn pain IBUPROFEN 64681598739 Active Pelon Quach MD Active LORATADINE 10 MG ORAL TABLET 1 tablet by mouth daily prn LORATADINE 77544576531 Active Pelon [place] MD Active BANOPHEN 25 MG ORAL TABLET 1 po every 6 hours PRN allergic reaction DIPHENHYDRAMINE HCL 90452747436 No Longer Active Pelon Quach MD Active EASY TOUCH ALCOHOL PREP MEDIUM 70 % PAD Use with each finger stick and insulin admin Dx: E11.9 ALCOHOL SWABS 92326673965 Active Jaycee Torrez APRN Active HUMALOG KWIKPEN 100 UNIT/ML SUBCUTANEOUS SOLUTION PEN-INJECTOR inject 10 units subcutaneously before meals also sliding scale INSULIN LISPRO 00508504848 Active Pelon Quach MD Active NOVOLOG 100 UNIT/ML SUBCUTANEOUS SOLUTION 10 UNITS BID BEFORE BREAKFAST AND LUNCH INSULIN ASPART 42855031621 No Longer Active NICOLETTE Htichcock Active NOVOLOG 100 UNIT/ML SUBCUTANEOUS SOLUTION 10 UNITS BEFORE SUPPER INSULIN ASPART 12035521514 No Longer Active NICOLETTE Hitchcock Active INVEGA 6 MG ORAL TABLET EXTENDED RELEASE 24 HOUR 1 po daily for schizophrenia PALIPERIDONE 03838004270 Active Pelon Quach MD Active LAMICTAL 25 MG ORAL TABLET 2 tabs by mouth twice a day LAMOTRIGINE 16505504537 No Longer Active Pelon Quach MD Active BACTROBAN 2 % EXTERNAL OINTMENT Apply to affected area BID 06/28 MUPIROCIN 65340831516 No Longer Active Pelon Quach MD Active INVEGA 6 MG ORAL TABLET EXTENDED RELEASE 24 HOUR 1 po daily for Schizophrenia PALIPERIDONE 43948806610 No Longer Active Pelon Quach MD Active TYLENOL 8 HOUR 650 MG ORAL TABLET EXTENDED RELEASE Take 1 tab po up to 3 times daily as needed ACETAMINOPHEN 51559765267 No Longer Active Pelon Quach MD Active IPRATROPIUM-ALBUTEROL 0.5-2.5 (3) MG/3ML INHALATION SOLUTION 1 neb treatment QID for cough Dx: J06.9 IPRATROPIUM-ALBUTEROL 47299508103 No Longer Active Pelon Quach MD Active BACTRIM DS 800-160 MG ORAL TABLET 1 tab by mouth twice daily 2016 TRIMETHOPRIM-SULFAMETHOXAZOLE 09370259500 No Longer Active Pelon Quach MD Active BACTRIM DS 800-160 MG ORAL TABLET 1 twice a day SULFAMETHOXAZOLE-TRIMETHOPRIM 71801584513 No Longer Active Pelon Quach MD Active IPRATROPIUM-ALBUTEROL 0.5-2.5 (3) MG/3ML INHALATION SOLUTION 1 neb treatment four times daily, for cough IPRATROPIUM-ALBUTEROL 70223172423 No Longer Active Jaycee Torrez APRN Active FUROSEMIDE 40 MG ORAL TABLET Take one by mouth daily FUROSEMIDE 14767466192 No Longer Active Jaycee Torrez APRN Active LANTUS 100 UNIT/ML SUBCUTANEOUS SOLUTION 20 SUBQ AT HS INSULIN GLARGINE 64962717000 Active Pelon Quach MD Active LAMICTAL 25 MG ORAL TABLET 2 tabs po BID for convulsions LAMOTRIGINE 80123209967 Active Jaycee Torrez APRN Active LASIX 20 MG ORAL TABLET 1 tablet by mouth every morning for edema FUROSEMIDE 05123380119 Active Jyacee Torrez APRN Active BUSPIRONE HCL 10 MG ORAL TABLET 1 tab by mouth BID BUSPIRONE HCL 44601343791 Active Jaycee Torrez APRN Active ADULT ASPIRIN EC LOW STRENGTH 81 MG ORAL TABLET DELAYED RELEASE Take one by mouth daily ASPIRIN 27072661098 No Longer Active Pelon Quach MD Active ASPIRIN 81 MG ORAL TABLET 1 po qd ASPIRIN 67532068925 Active Pelon Quach MD Active ZOFRAN 4 MG ORAL TABLET 1 po q6hr PRN Nausea ONDANSETRON HCL 90276095615 No Longer Active Pelon Quach MD Active TYLENOL 325 MG ORAL TABLET 1-2 pills by mouth every 6 hours if needed for pain /fever ACETAMINOPHEN 71651845674 No Longer Active Pelon Quach MD Active INVEGA 6 MG ORAL TABLET EXTENDED RELEASE 24 HOUR 1 TAB ONCE DAILY PALIPERIDONE 59149773339 No Longer Active Carly Suggs Active TEGRETOL 200 MG ORAL TABLET by mouth twice a day CARBAMAZEPINE 99116307936 Active Taty Alvarado MD PhD Active FLOMAX 0.4 MG ORAL CAPSULE 1 Daily TAMSULOSIN HCL 12237898686 Active Marianela Juarez Active DILANTIN 100 MG ORAL CAPSULE Take one by mouth daily PHENYTOIN SODIUM EXTENDED 51820963921 No Longer Active Marianela Juarez Active DEPAKOTE SPRINKLES 125 MG ORAL CAPSULE DELAYED RELEASE SPRINKLE 4 capsules by mouth twice daily DIVALPROEX SODIUM 64347619247 No Longer Active Marianelachandrika Juarez Active LAMICTAL 200 MG ORAL TABLET 1 BY MOUTH TWICE A DAY LAMOTRIGINE 07912303707 Active Marianela Raida Active LAMICTAL 100 MG ORAL TABLET by mouth twice a day LAMOTRIGINE 08892145356 No Longer Active Marianela Raida Active LAMICTAL 150 MG ORAL TABLET by mouth twice a day LAMOTRIGINE 84501498596 No Longer Active Marianelachandrika Juarez Active DILANTIN 100 MG ORAL CAPSULE Take three by mouth daily PHENYTOIN SODIUM EXTENDED 95474132050 No Longer Active Marianela Juarez Active SENOKOT 8.6 MG ORAL TABLET take at bedtime [facility] 29104445939 Active Pelon Quach MD Active LIPITOR 20 MG ORAL TABLET take at bedtime ATORVASTATIN CALCIUM 65566584255 Active Glenn Thornton MD Active LISINOPRIL 2.5 MG ORAL TABLET Take one by mouth daily LISINOPRIL 69279313386 Active Glenn Thornton MD Active TRENTAL 400 MG CR-TABS by mouth twice a day PENTOXIFYLLINE 19948833639 Active Glenn Thornton MD Active KLOR-CON 10 10 MEQ ORAL TABLET EXTENDED RELEASE Take one by mouth daily POTASSIUM CHLORIDE 65686298099 Active Glenn Thornton MD Active BACTRIM DS 800-160 MG ORAL TABLET 1 twice a day BACTRIM DS 800-160 MG ORAL TABLET 19821119 SULFAMETHOXAZOLE-TRIMETHOPRIM Inactive BACTRIM DS 800-160 MG ORAL TABLET 1 tab by mouth twice daily 2016 BACTRIM DS 800-160 MG ORAL TABLET 788994 TRIMETHOPRIM- SULFAMETHOXAZOLE Inactive BACTROBAN 2 % EXTERNAL OINTMENT Apply to affected area BID 06/28 BACTROBAN 2 % EXTERNAL OINTMENT MUPIROCIN Inactive DILANTIN 100 MG ORAL CAPSULE Take three by mouth daily DILANTIN 100 MG ORAL CAPSULE 561332 PHENYTOIN SODIUM EXTENDED Inactive DILANTIN 100 MG ORAL CAPSULE Take one by mouth daily DILANTIN 100 MG ORAL CAPSULE 563483 PHENYTOIN SODIUM EXTENDED Inactive FUROSEMIDE 40 MG ORAL TABLET Take one by mouth daily FUROSEMIDE 40 MG ORAL TABLET 795373 FUROSEMIDE Inactive TYLENOL 325 MG ORAL TABLET 1-2 pills by mouth every 6 hours if needed for pain /fever TYLENOL 325 MG ORAL TABLET 955971 ACETAMINOPHEN Inactive ZOFRAN 4 MG ORAL TABLET 1 po q6hr PRN Nausea ZOFRAN 4 MG ORAL TABLET 277843 ONDANSETRON HCL Inactive LAMICTAL 100 MG ORAL TABLET by mouth twice a day LAMICTAL 100 MG ORAL TABLET 19831024 LAMOTRIGINE Inactive LAMICTAL 150 MG ORAL TABLET by mouth twice a day LAMICTAL 150 MG ORAL TABLET 19831025 LAMOTRIGINE Inactive LAMICTAL 25 MG ORAL TABLET 2 tabs by mouth twice a day LAMICTAL 25 MG ORAL TABLET 526525 LAMOTRIGINE Inactive BANOPHEN 25 MG ORAL TABLET 1 po every 6 hours PRN allergic reaction BANOPHEN 25 MG ORAL TABLET 2830795 DIPHENHYDRAMINE HCL Inactive ADULT ASPIRIN EC LOW STRENGTH 81 MG ORAL TABLET DELAYED RELEASE Take one by mouth daily ADULT ASPIRIN EC LOW STRENGTH 81 MG ORAL TABLET DELAYED RELEASE 873845 ASPIRIN Inactive NOVOLOG 100 UNIT/ML SUBCUTANEOUS SOLUTION 10 UNITS BEFORE SUPPER NOVOLOG 100 UNIT/ML SUBCUTANEOUS SOLUTION INSULIN ASPART Inactive NOVOLOG 100 UNIT/ML SUBCUTANEOUS SOLUTION 10 UNITS BID BEFORE BREAKFAST AND LUNCH NOVOLOG 100 UNIT/ML SUBCUTANEOUS SOLUTION INSULIN ASPART Inactive TYLENOL 8 HOUR 650 MG ORAL TABLET EXTENDED RELEASE Take 1 tab po up to 3 times daily as needed TYLENOL 8 HOUR 650 MG ORAL TABLET EXTENDED RELEASE ACETAMINOPHEN Inactive INVEGA 6 MG ORAL TABLET EXTENDED RELEASE 24 HOUR 1 po daily for Schizophrenia INVEGA 6 MG ORAL TABLET EXTENDED RELEASE 24 HOUR PALIPERIDONE Inactive INVEGA 6 MG ORAL TABLET EXTENDED RELEASE 24 HOUR 1 TAB ONCE DAILY INVEGA 6 MG ORAL TABLET EXTENDED RELEASE 24 HOUR PALIPERIDONE Inactive IPRATROPIUM-ALBUTEROL 0.5-2.5 (3) MG/3ML INHALATION SOLUTION 1 neb treatment QID for cough Dx: J06.9 IPRATROPIUM-ALBUTEROL 0.5-2.5 ( 3) MG/3ML INHALATION SOLUTION 8974295 IPRATROPIUM-ALBUTEROL Inactive IPRATROPIUM-ALBUTEROL 0.5-2.5 (3) MG/3ML INHALATION SOLUTION 1 neb treatment four times daily, for cough IPRATROPIUM-ALBUTEROL 0.5- 2.5 (3) MG/3ML INHALATION SOLUTION 3200641 IPRATROPIUM-ALBUTEROL Inactive DEPAKOTE SPRINKLES 125 MG ORAL CAPSULE DELAYED RELEASE SPRINKLE 4 capsules by mouth twice daily DEPAKOTE SPRINKLES 125 MG ORAL CAPSULE DELAYED RELEASE SPRINKLE 4922919 DIVALPROEX SODIUM Inactive Advance Directives Directive Description Start Date DURABLE POWER OF TOP INVENTORY CONTROL EXECUTIVE FOR HEALTHCARE PERMISSION TO SHARE ADVANCED DIRECTIVE [...] HGBA1C - Chemistry sodium, serum 123 mmol/L 588-540 9811/04/25 carbon dioxide, venous blood 26.2 mmol/L 21.0-32.0 [...] mg/dL Encounters Code Encounter Date Provider Facility CPT-63254 38360-Ced Vst-Est Level IV 13:48:14 CDT Pelon Quach MD [facility] CPT-04598 [id number] Vst-Est Level II 13:40:42 CDT Pelon Quach MD [facility] CPT-27210 [id number] Vst-Est Level III 13:36:24 CDT Pelon Quach MD [facility] CPT-61757 Level 4 Est. Patient 18:11:18 CDT Pelon Quach MD [facility] CPT-34972 Level 4 Est. Patient 14:46:38 CDT Pelon Quach MD [facility] CPT-57145 Level 4 Est. Patient 08:43:11 CDT Pelon Quach MD [facility] CPT-95583 Level 4 Est. Patient 14:27:30 CDT Pelon Quach MD [facility] CPT-64947 Level 3 Est. Patient 10:32:17 CDT Jaycee Torrez APRN [facility] CPT-54070 Level 3 Est. Patient 10:15:07 CDT Pelon Quach MD [facility] CPT-46447 Level 4 Est. Patient 09:30:54 CDT Pelon Quach MD [facility] CPT-78134 Level 4 Est. Patient 14:34:25 CDT Pelon Quach MD [facility] CPT-84561 Level 3 Est. Patient 11:51:35 HEAD USHER Rick Henson DO [facility]-18364 Level 3 Est. Patient 12:13:33 HEAD USHER Erik Baptiste MD [facility]-11503 Level 3 Est. Patient 09:40:44 HEAD USHER Jaycee Torrez [facility]-78209 Level 3 Est. Patient 09:36:32 HEAD USHER Jaycee Juan Davidnando [facility]-63374 Level 4 Est. Patient 16:57:02 HEAD USHER Pelon Quach MD [facility]-60215 Level 4 Est. Patient 22:19:34 CDT Pelon Quach MD [facility]-80898 Level 3 Est. Patient 00:34:41 CDT Pelon Quach MD [facility]-88481 Level 4 Est. Patient 11:19:14 CDT Pelon Quach MD [facility]-83296 Level 4 Est. Patient 16:43:30 HEAD USHER Pelon Quach MD [facility]-55213 Level 4 Est. Patient 12:42:18 CDT Pelon Quach MD [facility]-22803 Level 4 Est. Patient 11:52:20 CDT Pelon Quach MD [facility]-75997 Level 4 Est. Patient 13:59:46 CDT Pelon Quach MD [facility]-62513 Level 4 Est. Patient 15:10:48 CDT Pelon Quach MD [facility]-56543 Level 4 Est. Patient 17:13:06 CDT Pelon Quach MD [facility]-01847 Level 4 Est. Patient 18:47:47 CDT Pelon Quach MD [facility]-84544 Level 3 Est. Patient 21:01:27 CDT Pelon Quach MD [facility] CPT-35608 Level 3 Est. Patient 14:07:03 CDT Tayt Alvarado MD PhD [facility] CPT-34252 Level 3 New Patient 21:39:52 HEAD USHER Pelon Quach MD [facility] CPT-58381 Level 3 Est. Patient 14:28:44 CDT Glenn Thornton MD [facility] CPT-04981 Level 3 Est. Patient 16:35:00 CDT [facility] CPT-40855 Level 4 New Patient 17:06:27 CDT Glenn Thornton MD [facility] [place] Procedures Code Procedure Name Date Entry Date Standard Description CPT-G0439 Subsequent Annual Wellness Exam 18:11:17 CDT CPT-G0438 Initial Annual Wellness Exam 09:30:54 CDT CPT-33161 Prevnar 13 Intramuscular Suspension 14:34:25 CDT 12/27 CPT-61124 Chest 2V Frontal and Lat - XRAY USE ONLY 11:56:13 HEAD USHER CPT-67163 Cystoscopy 14:28:44 CDT CPT-71983 Bladder Scan 14:28:44 CDT CPT-26110 Indwelling Cath Change 17:06:27 CDT CPT-64757 Cystoscopy 17:06:27 CDT
--- OUTSIDE RECORDS SUMMARY | 2018-06-22 11:31 | XMS REPORT | Clinical Summary ---
Author Author Admin, ONESIMO Organization [facility] Address Unknown Phone Unavailable Allergies, Adverse Reactions, [...] as needed for muscle spasm/pain CYCLOBENZAPRINE HCL 14467704455 Active Pelon Quach MD Active BENADRYL 25 MG ORAL CAPSULE 1 po q8hr PRN Congestion DIPHENHYDRAMINE HCL 56839040039 Active Pelon Quach MD Active ZOFRAN 4 MG ORAL TABLET 1 po q6hr PRN Nausea ONDANSETRON HCL 96476480851 Active Pelon Quach MD Active IMODIUM A-D 2 MG ORAL TABLET One QID prn diarrhea. No more than 4 tabs daily LOPERAMIDE HCL 56247235878 Active Pelon Quach MD Active TYLENOL 325 MG ORAL TABLET 2 tabs po prn for pain elevated temp ACETAMINOPHEN 67638717687 Active Pelon Quach MD Active MUCINEX D 60-600 MG ORAL TABLET EXTENDED RELEASE 12 HOUR 1 po BID PRN Congestion PSEUDOEPHEDRINE-GUAIFENESIN 84287789017 Active Pelon Quach MD Active IBUPROFEN 200 MG ORAL TABLET q 6hrs prn pain IBUPROFEN 23484413369 Active Pelon Quach MD Active LORATADINE 10 MG ORAL TABLET 1 tablet by mouth daily prn LORATADINE 42654742573 Active Pelon Quach MD Active BANOPHEN 25 MG ORAL TABLET 1 po every 6 hours PRN allergic reaction DIPHENHYDRAMINE HCL 23105043509 No Longer Active Pelon Quach MD Active EASY TOUCH ALCOHOL PREP MEDIUM 70 % PAD Use with each finger stick and insulin admin Dx: E11.9 ALCOHOL SWABS 21435203235 Active Jaycee Torrez APRN Active HUMALOG KWIKPEN 100 UNIT/ML SUBCUTANEOUS SOLUTION PEN-INJECTOR inject 10 units subcutaneously before meals also sliding scale INSULIN LISPRO 56898236597 Active Pelon Quach MD Active NOVOLOG 100 UNIT/ML SUBCUTANEOUS SOLUTION 10 UNITS BID BEFORE BREAKFAST AND LUNCH INSULIN ASPART 88137991843 No Longer Active NICOLETTE Hitchcock Active NOVOLOG 100 UNIT/ML SUBCUTANEOUS SOLUTION 10 UNITS BEFORE SUPPER INSULIN ASPART 29068416723 No Longer Active NICOLETTE Hitchcock Active INVEGA 6 MG ORAL TABLET EXTENDED RELEASE 24 HOUR 1 po daily for schizophrenia PALIPERIDONE 62424399527 Active Pelon Quach MD Active LAMICTAL 25 MG ORAL TABLET 2 tabs by mouth twice a day LAMOTRIGINE 93916933473 No Longer Active Pelon Quach MD Active BACTROBAN 2 % EXTERNAL OINTMENT Apply to affected area BID 06/28 MUPIROCIN 97715194464 No Longer Active Pelon Quach MD Active INVEGA 6 MG ORAL TABLET EXTENDED RELEASE 24 HOUR 1 po daily for Schizophrenia PALIPERIDONE 30158120493 No Longer Active Pelon Quach MD Active TYLENOL 8 HOUR 650 MG ORAL TABLET EXTENDED RELEASE Take 1 tab po up to 3 times daily as needed ACETAMINOPHEN 93862055812 No Longer Active Pelon Quach MD Active IPRATROPIUM-ALBUTEROL 0.5-2.5 (3) MG/3ML INHALATION SOLUTION 1 neb treatment QID for cough Dx: J06.9 IPRATROPIUM-ALBUTEROL 34075132032 No Longer Active Pelon Quach MD Active BACTRIM DS 800-160 MG ORAL TABLET 1 tab by mouth twice daily 2016 TRIMETHOPRIM-SULFAMETHOXAZOLE 92801407738 No Longer Active Pelon Quach MD Active BACTRIM DS 800-160 MG ORAL TABLET 1 twice a day SULFAMETHOXAZOLE-TRIMETHOPRIM 26739023124 No Longer Active Pelon Quach MD Active IPRATROPIUM-ALBUTEROL 0.5-2.5 (3) MG/3ML INHALATION SOLUTION 1 neb treatment four times daily, for cough IPRATROPIUM-ALBUTEROL 55446587772 No Longer Active Jaycee Torrez APRN Active FUROSEMIDE 40 MG ORAL TABLET Take one by mouth daily FUROSEMIDE 37371613375 No Longer Active Jaycee Torrez APRN Active LANTUS 100 UNIT/ML SUBCUTANEOUS SOLUTION 20 SUBQ AT HS INSULIN GLARGINE 71081487268 Active Pelon Quach MD Active LAMICTAL 25 MG ORAL TABLET 2 tabs po BID for convulsions LAMOTRIGINE 42116677487 Active Jaycee Torrez APRN Active LASIX 20 MG ORAL TABLET 1 tablet by mouth every morning for edema FUROSEMIDE 63153337146 Active Jaycee Torrez APRN Active BUSPIRONE HCL 10 MG ORAL TABLET 1 tab by mouth BID BUSPIRONE HCL 76033573081 Active Jaycee Torrez APRN Active ADULT ASPIRIN EC LOW STRENGTH 81 MG ORAL TABLET DELAYED RELEASE Take one by mouth daily ASPIRIN 48554066037 No Longer Active Pelon Quach MD Active ASPIRIN 81 MG ORAL TABLET 1 po qd ASPIRIN 30293649750 Active Pelon Quach MD Active ZOFRAN 4 MG ORAL TABLET 1 po q6hr PRN Nausea ONDANSETRON HCL 63181765268 No Longer Active Pelon Quach MD Active TYLENOL 325 MG ORAL TABLET 1-2 pills by mouth every 6 hours if needed for pain /fever ACETAMINOPHEN 56078562746 No Longer Active Pelon Quach MD Active INVEGA 6 MG ORAL TABLET EXTENDED RELEASE 24 HOUR 1 TAB ONCE DAILY PALIPERIDONE 48283551967 No Longer Active Carly Suggs Active TEGRETOL 200 MG ORAL TABLET by mouth twice a day CARBAMAZEPINE 57221082833 Active Taty Alvarado MD PhD Active FLOMAX 0.4 MG ORAL CAPSULE 1 Daily TAMSULOSIN HCL 61118293521 Active Marianela Juarez Active DILANTIN 100 MG ORAL CAPSULE Take one by mouth daily PHENYTOIN SODIUM EXTENDED 25112092511 No Longer Active Marianela Juarez Active DEPAKOTE SPRINKLES 125 MG ORAL CAPSULE DELAYED RELEASE SPRINKLE 4 capsules by mouth twice daily DIVALPROEX SODIUM 78223999061 No Longer Active Marianelachandrika Juarez Active LAMICTAL 200 MG ORAL TABLET 1 BY MOUTH TWICE A DAY LAMOTRIGINE 95709765292 Active Marianela Raida Active LAMICTAL 100 MG ORAL TABLET by mouth twice a day LAMOTRIGINE 61322788685 No Longer Active Marianela Raida Active LAMICTAL 150 MG ORAL TABLET by mouth twice a day LAMOTRIGINE 61106792417 No Longer Active Marianelachandrika Juarez Active DILANTIN 100 MG ORAL CAPSULE Take three by mouth daily PHENYTOIN SODIUM EXTENDED 93883731068 No Longer Active Marianela Juarez Active SENOKOT 8.6 MG ORAL TABLET take at bedtime [facility] 88370803399 Active Pelon Quach MD Active LIPITOR 20 MG ORAL TABLET take at bedtime ATORVASTATIN CALCIUM 63839691515 Active Glenn Thornton MD Active LISINOPRIL 2.5 MG ORAL TABLET Take one by mouth daily LISINOPRIL 66809948307 Active Glenn Thornton MD Active TRENTAL 400 MG CR-TABS by mouth twice a day PENTOXIFYLLINE 48891485320 Active Glenn Thornton MD Active KLOR-CON 10 10 MEQ ORAL TABLET EXTENDED RELEASE Take one by mouth daily POTASSIUM CHLORIDE 19588149361 Active Glenn Thornton MD Active DILANTIN 100 MG ORAL CAPSULE Take three by mouth daily DILANTIN 100 MG ORAL CAPSULE 954166 PHENYTOIN SODIUM EXTENDED Inactive LAMICTAL 150 MG ORAL TABLET by mouth twice a day LAMICTAL 150 MG ORAL TABLET 332411 LAMOTRIGINE Inactive LAMICTAL 100 MG ORAL TABLET by mouth twice a day LAMICTAL 100 MG ORAL TABLET 050887 LAMOTRIGINE Inactive DEPAKOTE SPRINKLES 125 MG ORAL CAPSULE DELAYED RELEASE SPRINKLE 4 capsules by mouth twice daily DEPAKOTE SPRINKLES 125 MG ORAL CAPSULE DELAYED RELEASE SPRINKLE 7346552 DIVALPROEX SODIUM Inactive DILANTIN 100 MG ORAL CAPSULE Take one by mouth daily DILANTIN 100 MG ORAL CAPSULE 244785 PHENYTOIN SODIUM EXTENDED Inactive INVEGA 6 MG ORAL TABLET EXTENDED RELEASE 24 HOUR 1 TAB ONCE DAILY INVEGA 6 MG ORAL TABLET EXTENDED RELEASE 24 HOUR PALIPERIDONE Inactive TYLENOL 325 MG ORAL TABLET 1-2 pills by mouth every 6 hours if needed for pain /fever TYLENOL 325 MG ORAL TABLET 796781 ACETAMINOPHEN Inactive ZOFRAN 4 MG ORAL TABLET 1 po q6hr PRN Nausea ZOFRAN 4 MG ORAL TABLET 704672 ONDANSETRON HCL Inactive ADULT ASPIRIN EC LOW STRENGTH 81 MG ORAL TABLET DELAYED RELEASE Take one by mouth daily ADULT ASPIRIN EC LOW STRENGTH 81 MG ORAL TABLET DELAYED RELEASE 185462 ASPIRIN Inactive FUROSEMIDE 40 MG ORAL TABLET Take one by mouth daily FUROSEMIDE 40 MG ORAL TABLET 656855 FUROSEMIDE Inactive BACTRIM DS 800-160 MG ORAL TABLET 1 twice a day BACTRIM DS 800-160 MG ORAL TABLET 19821119 SULFAMETHOXAZOLE-TRIMETHOPRIM Inactive IPRATROPIUM-ALBUTEROL 0.5-2.5 (3) MG/3ML INHALATION SOLUTION 1 neb treatment QID for cough Dx: J06.9 IPRATROPIUM-ALBUTEROL 0.5-2.5 ( 3) MG/3ML INHALATION SOLUTION 9241478 IPRATROPIUM-ALBUTEROL Inactive TYLENOL 8 HOUR 650 MG [...] a day LAMICTAL 25 MG ORAL TABLET 717055 LAMOTRIGINE Inactive NOVOLOG 100 UNIT/ML SUBCUTANEOUS SOLUTION 10 UNITS BEFORE SUPPER NOVOLOG 100 UNIT/ML SUBCUTANEOUS SOLUTION INSULIN ASPART Inactive NOVOLOG 100 UNIT/ML SUBCUTANEOUS SOLUTION 10 UNITS BID BEFORE BREAKFAST AND LUNCH NOVOLOG 100 UNIT/ML SUBCUTANEOUS SOLUTION INSULIN ASPART Inactive BANOPHEN 25 MG ORAL TABLET 1 po every 6 hours PRN allergic reaction BANOPHEN 25 MG ORAL TABLET 8639685 DIPHENHYDRAMINE HCL Inactive IPRATROPIUM-ALBUTEROL 0.5-2.5 (3) MG/3ML INHALATION SOLUTION 1 neb treatment four times daily, for cough IPRATROPIUM-ALBUTEROL 0.5- 2.5 (3) MG/3ML INHALATION SOLUTION 7011752 IPRATROPIUM-ALBUTEROL Inactive BACTRIM DS 800-160 MG ORAL TABLET 1 tab by mouth twice daily 2016 BACTRIM DS 800-160 MG ORAL TABLET 19821119 TRIMETHOPRIM- SULFAMETHOXAZOLE Inactive Advance Directives Directive Description Start Date DURABLE POWER OF MOBILE SALES ASSISTANT FOR HEALTHCARE PERMISSION TO SHARE ADVANCED DIRECTIVE [...] Name Value Unit Range Description Lab Report: Basic Metabolic Panel - Chemistry sodium, serum 127 mmol/L 364-682 8560/07/28 potassium, serum 5.3 mmol/L 3.5-5.2 chloride, serum 92 mmol/L 98-107 carbon dioxide, venous blood 32.4 mmol/L 21.0-32.0 blood glucose 182 mg/dL 65-110 calcium, serum 9.4 mg/dL 8.5-10.1 urea nitrogen, blood 14 mg/dL 7-18 creatinine, serum 0.94 mg/dL 0.60-1.30 Lab Report: Comp. Metabolic Panel, CBC, HGBA1C - Chemistry sodium, serum 123 mmol/L 726-138 4289/04/25 carbon dioxide, venous blood 26.2 mmol/L 21.0-32.0 [...] Lab Report: UADIP W/MICRO, AUTO - Chemistry RBC, urine, dipstick Trace-intact Negative protein, total urine random 1+ mg/dL Negative Lab Report: UADIP W/MICRO, AUTO - Urinalysis glucose, urine, semiquantitative 2+ Negative ketones, urine, by test strip 1+ Negative bilirubin, urine Negative Negative urine color Yellow Colorless;Lightyellow;Straw;Yellow appearance, urine Clear Clear specific gravity, urine 1.015 1.000-1.030 pH, urine, semiquantitative 6.5 5.0-8.5 urobilinogen, urine, semiquantitative (dipstick) 1.0 E.U./dL Normal leukocyte esterase, urine, by dipstick Negative Negative nitrite, urine, semiquantitative Negative Negative Office Visit: 3 mo NEED LAB WORK [...] cholesterol, target level 200 mg/dL Office Visit: AW - Basic LDL target level 100 mg/dL Office Visit: AW - Chemistry cholesterol, target level 200 mg/dL triglyceride, target level 200 mg/dL HDL cholesterol, serum, target level 35 mg/dL Encounters Code Encounter Date Provider Facility CPT-05883 [id number] Vst-Est Level IV 13:48:14 CDT Pelon Quach MD [facility] CPT-51868 [id number] Vst-Est Level II 13:40:42 CDT Pelon Quach MD [facility] CPT-40376 [id number] Vst-Est Level III 13:36:24 CDT Pelon Quach MD [facility] CPT-54665 Level 4 Est. Patient 18:11:18 CDT Pelon Quach MD [facility] CPT-88801 Level 4 Est. Patient 14:46:38 CDT Pelon Quach MD [facility] CPT-12914 Level 4 Est. Patient 08:43:11 CDT Pelon Quach MD [facility] CPT-60793 Level 4 Est. Patient 14:27:30 CDT Pelon Quach MD [facility]-56322 Level 3 Est. Patient 10:32:17 CDT Jaycee Torrez [facility] CPT-25321 Level 3 Est. Patient 10:15:07 CDT Pelon Quach MD [facility]-86835 Level 4 Est. Patient 09:30:54 CDT Pelon Quach MD [facility]-04096 Level 4 Est. Patient 14:34:25 CDT Pelon Quach MD [facility]-03282 Level 3 Est. Patient 11:51:35 SAMPLER PICKUP Rick Henson DO [facility] CPT-45420 Level 3 Est. Patient 12:13:33 SAMPLER PICKUP Erik Baptiste MD [facility]-41125 Level 3 Est. Patient 09:40:44 SAMPLER PICKUP Jaycee Torrez [facility]-22742 Level 3 Est. Patient 09:36:32 SAMPLER PICKUP Jaycee Torrez [facility] CPT-83398 Level 4 Est. Patient 16:57:02 SAMPLER PICKUP Pelon Quach MD [facility] CPT-95114 Level 4 Est. Patient 22:19:34 CDT Pelon Quach MD [facility]-83055 Level 3 Est. Patient 00:34:41 CDT Pelon Quach MD [facility]-98629 Level 4 Est. Patient 11:19:14 CDT Pelon Quach MD [facility] CPT-64236 Level 4 Est. Patient 16:43:30 SAMPLER PICKUP Pelon Quach MD [facility]-42953 Level 4 Est. Patient 12:42:18 CDT Pelon Quach MD [facility] CPT-33652 Level 4 Est. Patient 11:52:20 CDT Pelon Quach MD [facility] CPT-25347 Level 4 Est. Patient 13:59:46 CDT Pelon Quach MD [facility] CPT-75257 Level 4 Est. Patient 15:10:48 CDT Pelon Quach MD [facility] CPT-24580 Level 4 Est. Patient 17:13:06 CDT Pelon Quach MD [facility] CPT-14380 Level 4 Est. Patient 18:47:47 CDT Pelon Quach MD [facility] CPT-70769 Level 3 Est. Patient 21:01:27 CDT Pelon Quach MD [facility] CPT-37668 Level 3 Est. Patient 14:07:03 CDT Taty Alvarado MD [facility] CPT-90096 Level 3 New Patient 21:39:52 SAMPLER PICKUP Pelon Quach MD [facility] CPT-69790 Level 3 Est. Patient 14:28:44 CDT Glenn Thornton MD [facility] CPT-21646 Level 3 Est. Patient 16:35:00 CDT Glenn Thornton MD [facility] CPT-87921 Level 4 New Patient 17:06:27 CDT Glenn Thornton MD [facility] [place] Procedures Code Procedure Name Date Entry Date Standard Description CPT-G0439 Subsequent Annual Wellness Exam 18:11:17 CDT CPT-G0438 Initial Annual Wellness Exam 09:30:54 CDT CPT-82588 Prevnar 13 Intramuscular Suspension 14:34:25 CDT 12/27 CPT-46508 Chest 2V Frontal and Lat - XRAY USE ONLY 11:56:13 SAMPLER PICKUP CPT-38045 Cystoscopy 14:28:44 CDT CPT-68262 Bladder Scan 14:28:44 CDT CPT-98799 Indwelling Cath Change 17:06:27 CDT CPT-48894 Cystoscopy 17:06:27 CDT
--- OUTSIDE RECORDS SUMMARY | 2018-06-22 11:32 | XMS REPORT | Clinical Summary ---
Author Author Admin, ONESIMO Organization [facility] [place] Address Unknown Phone Unavailable Allergies, Adverse Reactions, [...] unspecified site URI - acute 465.9 Resolved rEik Baptiste MD Acute upper respiratory infections of [...] as needed for muscle spasm/pain CYCLOBENZAPRINE HCL 01019890597 Active Pelon Quach MD Active BENADRYL 25 MG ORAL CAPSULE 1 po q8hr PRN Congestion DIPHENHYDRAMINE HCL 51530280714 Active Pelon Quach MD Active ZOFRAN 4 MG ORAL TABLET 1 po q6hr PRN Nausea ONDANSETRON HCL 73951372701 Active Pelon Quach MD Active IMODIUM A-D 2 MG ORAL TABLET One QID prn diarrhea. No more than 4 tabs daily LOPERAMIDE HCL 27924487669 Active Pelon Quach MD Active TYLENOL 325 MG ORAL TABLET 2 tabs po prn for pain elevated temp ACETAMINOPHEN 14514313455 Active Pelon Quach MD Active MUCINEX D 60-600 MG ORAL TABLET EXTENDED RELEASE 12 HOUR 1 po BID PRN Congestion PSEUDOEPHEDRINE-GUAIFENESIN 54444769119 Active Pelon Quach MD Active IBUPROFEN 200 MG ORAL TABLET q 6hrs prn pain IBUPROFEN 91681604430 Active Pelon Quach MD Active LORATADINE 10 MG ORAL TABLET 1 tablet by mouth daily prn LORATADINE 24925499344 Active Pelon Quach MD Active BANOPHEN 25 MG ORAL TABLET 1 po every 6 hours PRN allergic reaction DIPHENHYDRAMINE HCL 32181856131 No Longer Active Pelon Quach MD Active EASY TOUCH ALCOHOL PREP MEDIUM 70 % PAD Use with each finger stick and insulin admin Dx: E11.9 ALCOHOL SWABS 00794112881 Active Jaycee Torrez APRN Active HUMALOG KWIKPEN 100 UNIT/ML SUBCUTANEOUS SOLUTION PEN-INJECTOR inject 10 units subcutaneously before meals also sliding scale INSULIN LISPRO 95191027948 Active Pelon Quach MD Active NOVOLOG 100 UNIT/ML SUBCUTANEOUS SOLUTION 10 UNITS BID BEFORE BREAKFAST AND LUNCH INSULIN ASPART 55288100309 No Longer Active NICOLETTE Hitchcock Active NOVOLOG 100 UNIT/ML SUBCUTANEOUS SOLUTION 10 UNITS BEFORE SUPPER INSULIN ASPART 52940413698 No Longer Active NICOLETTE Hitchcock Active INVEGA 6 MG ORAL TABLET EXTENDED RELEASE 24 HOUR 1 po daily for schizophrenia PALIPERIDONE 11172499646 Active Pelon Quach MD Active LAMICTAL 25 MG ORAL TABLET 2 tabs by mouth twice a day LAMOTRIGINE 06769214356 No Longer Active Pelon Quach MD Active BACTROBAN 2 % EXTERNAL OINTMENT Apply to affected area BID 06/28 MUPIROCIN 06882170063 No Longer Active Pelon Quach MD Active INVEGA 6 MG ORAL TABLET EXTENDED RELEASE 24 HOUR 1 po daily for Schizophrenia PALIPERIDONE 82488823940 No Longer Active Pelon Quach MD Active TYLENOL 8 HOUR 650 MG ORAL TABLET EXTENDED RELEASE Take 1 tab po up to 3 times daily as needed ACETAMINOPHEN 26402631327 No Longer Active Pelon Quach MD Active IPRATROPIUM-ALBUTEROL 0.5-2.5 (3) MG/3ML INHALATION SOLUTION 1 neb treatment QID for cough Dx: J06.9 IPRATROPIUM-ALBUTEROL 08752063250 No Longer Active Pelon Quach MD Active BACTRIM DS 800-160 MG ORAL TABLET 1 tab by mouth twice daily 2016 TRIMETHOPRIM-SULFAMETHOXAZOLE 17117017311 No Longer Active Pelon Quach MD Active BACTRIM DS 800-160 MG ORAL TABLET 1 twice a day SULFAMETHOXAZOLE-TRIMETHOPRIM 67102300876 No Longer Active Pelon Quach MD Active IPRATROPIUM-ALBUTEROL 0.5-2.5 (3) MG/3ML INHALATION SOLUTION 1 neb treatment four times daily, for cough IPRATROPIUM-ALBUTEROL 03384087153 No Longer Active Jaycee Torrez APRN Active FUROSEMIDE 40 MG ORAL TABLET Take one by mouth daily FUROSEMIDE 95256639154 No Longer Active Jaycee Torrez APRN Active LANTUS 100 UNIT/ML SUBCUTANEOUS SOLUTION 20 SUBQ AT HS INSULIN GLARGINE 21286460038 Active Pelon Quach MD Active LAMICTAL 25 MG ORAL TABLET 2 tabs po BID for convulsions LAMOTRIGINE 34953719344 Active Jaycee Torrez APRN Active LASIX 20 MG ORAL TABLET 1 tablet by mouth every morning for edema FUROSEMIDE 56380075869 Active Jaycee Torrez APRN Active BUSPIRONE HCL 10 MG ORAL TABLET 1 tab by mouth BID BUSPIRONE HCL 63462116323 Active Jaycee Torrez APRN Active ADULT ASPIRIN EC LOW STRENGTH 81 MG ORAL TABLET DELAYED RELEASE Take one by mouth daily ASPIRIN 26384112817 No Longer Active Pelon Quach MD Active ASPIRIN 81 MG ORAL TABLET 1 po qd ASPIRIN 29861649036 Active Pelon Quach MD Active ZOFRAN 4 MG ORAL TABLET 1 po q6hr PRN Nausea ONDANSETRON HCL 90124641134 No Longer Active Pelon Quach MD Active TYLENOL 325 MG ORAL TABLET 1-2 pills by mouth every 6 hours if needed for pain /fever ACETAMINOPHEN 86941059009 No Longer Active Pelon Quach MD Active INVEGA 6 MG ORAL TABLET EXTENDED RELEASE 24 HOUR 1 TAB ONCE DAILY PALIPERIDONE 61911159884 No Longer Active Carly Suggs Active TEGRETOL 200 MG ORAL TABLET by mouth twice a day CARBAMAZEPINE 13899851031 Active Taty Alvarado MD PhD Active FLOMAX 0.4 MG ORAL CAPSULE 1 Daily TAMSULOSIN HCL 55706534078 Active Marianela Juarez Active DILANTIN 100 MG ORAL CAPSULE Take one by mouth daily PHENYTOIN SODIUM EXTENDED 32655277917 No Longer Active Marianela Juarez Active DEPAKOTE SPRINKLES 125 MG ORAL CAPSULE DELAYED RELEASE SPRINKLE 4 capsules by mouth twice daily DIVALPROEX SODIUM 91829206521 No Longer Active Marianelachandrika Juarez Active LAMICTAL 200 MG ORAL TABLET 1 BY MOUTH TWICE A DAY LAMOTRIGINE 16302009608 Active Marianela Raida Active LAMICTAL 100 MG ORAL TABLET by mouth twice a day LAMOTRIGINE 59588600311 No Longer Active Marianela Raida Active LAMICTAL 150 MG ORAL TABLET by mouth twice a day LAMOTRIGINE 73906607897 No Longer Active Marianelachandrika Juarez Active DILANTIN 100 MG ORAL CAPSULE Take three by mouth daily PHENYTOIN SODIUM EXTENDED 73334558995 No Longer Active Marianela Juarez Active SENOKOT 8.6 MG ORAL TABLET take at bedtime [facility] 06114154401 Active Pelon Quach MD Active LIPITOR 20 MG ORAL TABLET take at bedtime ATORVASTATIN CALCIUM 68232280573 Active Glenn Thornton MD Active LISINOPRIL 2.5 MG ORAL TABLET Take one by mouth daily LISINOPRIL 26669975163 Active Glenn Thornton MD Active TRENTAL 400 MG CR-TABS by mouth twice a day PENTOXIFYLLINE 44987458798 Active Glenn Thornton MD Active KLOR-CON 10 10 MEQ ORAL TABLET EXTENDED RELEASE Take one by mouth daily POTASSIUM CHLORIDE 30110935931 Active Glenn Thornton MD Active DILANTIN 100 MG ORAL CAPSULE Take three by mouth daily DILANTIN 100 MG ORAL CAPSULE 528069 PHENYTOIN SODIUM EXTENDED Inactive LAMICTAL 150 MG ORAL TABLET by mouth twice a day LAMICTAL 150 MG ORAL TABLET 567085 LAMOTRIGINE Inactive LAMICTAL 100 MG ORAL TABLET by mouth twice a day LAMICTAL 100 MG ORAL TABLET 344405 LAMOTRIGINE Inactive DEPAKOTE SPRINKLES 125 MG ORAL CAPSULE DELAYED RELEASE SPRINKLE 4 capsules by mouth twice daily DEPAKOTE SPRINKLES 125 MG ORAL CAPSULE DELAYED RELEASE SPRINKLE 8831199 DIVALPROEX SODIUM Inactive DILANTIN 100 MG ORAL CAPSULE Take one by mouth daily DILANTIN 100 MG ORAL CAPSULE 155871 PHENYTOIN SODIUM EXTENDED Inactive INVEGA 6 MG ORAL TABLET EXTENDED RELEASE 24 HOUR 1 TAB ONCE DAILY INVEGA 6 MG ORAL TABLET EXTENDED RELEASE 24 HOUR PALIPERIDONE Inactive TYLENOL 325 MG ORAL TABLET 1-2 pills by mouth every 6 hours if needed for pain /fever TYLENOL 325 MG ORAL TABLET 446231 ACETAMINOPHEN Inactive ZOFRAN 4 MG ORAL TABLET 1 po q6hr PRN Nausea ZOFRAN 4 MG ORAL TABLET 940030 ONDANSETRON HCL Inactive ADULT ASPIRIN EC LOW STRENGTH 81 MG ORAL TABLET DELAYED RELEASE Take one by mouth daily ADULT ASPIRIN EC LOW STRENGTH 81 MG ORAL TABLET DELAYED RELEASE 230298 ASPIRIN Inactive FUROSEMIDE 40 MG ORAL TABLET Take one by mouth daily FUROSEMIDE 40 MG ORAL TABLET 605627 FUROSEMIDE Inactive BACTRIM DS 800-160 MG ORAL TABLET 1 twice a day BACTRIM DS 800-160 MG ORAL TABLET 19821119 SULFAMETHOXAZOLE-TRIMETHOPRIM Inactive IPRATROPIUM-ALBUTEROL 0.5-2.5 (3) MG/3ML INHALATION SOLUTION 1 neb treatment QID for cough Dx: J06.9 IPRATROPIUM-ALBUTEROL 0.5-2.5 ( 3) MG/3ML INHALATION SOLUTION 8171725 IPRATROPIUM-ALBUTEROL Inactive TYLENOL 8 HOUR 650 MG [...] a day LAMICTAL 25 MG ORAL TABLET 451406 LAMOTRIGINE Inactive NOVOLOG 100 UNIT/ML SUBCUTANEOUS SOLUTION 10 UNITS BEFORE SUPPER NOVOLOG 100 UNIT/ML SUBCUTANEOUS SOLUTION INSULIN ASPART Inactive NOVOLOG 100 UNIT/ML SUBCUTANEOUS SOLUTION 10 UNITS BID BEFORE BREAKFAST AND LUNCH NOVOLOG 100 UNIT/ML SUBCUTANEOUS SOLUTION INSULIN ASPART Inactive BANOPHEN 25 MG ORAL TABLET 1 po every 6 hours PRN allergic reaction BANOPHEN 25 MG ORAL TABLET 7322768 DIPHENHYDRAMINE HCL Inactive IPRATROPIUM-ALBUTEROL 0.5-2.5 (3) MG/3ML INHALATION SOLUTION 1 neb treatment four times daily, for cough IPRATROPIUM-ALBUTEROL 0.5- 2.5 (3) MG/3ML INHALATION SOLUTION 3415325 IPRATROPIUM-ALBUTEROL Inactive BACTRIM DS 800-160 MG ORAL TABLET 1 tab by mouth twice daily 2016 BACTRIM DS 800-160 MG ORAL TABLET 19821119 TRIMETHOPRIM- SULFAMETHOXAZOLE Inactive Advance Directives Directive Description Start Date DURABLE POWER OF SWITCH TENDER FOR HEALTHCARE PERMISSION TO SHARE ADVANCED [...] Panel - Chemistry sodium, serum 127 mmol/L 298-903 1577/07/28 potassium, serum 5.3 mmol/L 3.5-5.2 chloride, serum 92 mmol/L 98-107 carbon dioxide, venous blood 32.4 mmol/L 21.0-32.0 blood glucose 182 mg/dL 65-110 calcium, serum 9.4 mg/dL 8.5-10.1 urea nitrogen, blood 14 mg/dL 7-18 creatinine, serum 0.94 mg/dL 0.60-1.30 Lab Report: Comp. Metabolic Panel, CBC, HGBA1C - Chemistry sodium, serum 123 mmol/L 351-108 2314/04/25 carbon dioxide, venous blood 26.2 mmol/L 21.0-32.0 [...] mg/dL Encounters Code Encounter Date Provider Facility CPT-03353 [id number] Vst-Est Level IV 13:48:14 CDT Pelon Quach MD [facility] CPT-27512 [id number] Vst-Est Level II 13:40:42 CDT Pelon Quach MD [facility] CPT-66775 00642-Apr Vst-Est Level III 13:36:24 CDT Pelon Quach MD [facility] CPT-53967 Level 4 Est. Patient 18:11:18 CDT Pelon Quach MD [facility] CPT-75567 Level 4 Est. Patient 14:46:38 CDT Pelon Quach MD [facility] CPT-58626 Level 4 Est. Patient 08:43:11 CDT Pelon Quach MD [facility] CPT-66472 Level 4 Est. Patient 14:27:30 CDT Pelon Quach MD [facility]-39552 Level 3 Est. Patient 10:32:17 CDT Jaycee Torrez [facility] CPT-83188 Level 3 Est. Patient 10:15:07 CDT Pelon Quach MD [facility]-32293 Level 4 Est. Patient 09:30:54 CDT Pelon Quach MD [facility]-90114 Level 4 Est. Patient 14:34:25 CDT Pelon Quach MD [facility]-43823 Level 3 Est. Patient 11:51:35 [facility]OWER Rick Henson DO [facility] CPT-14824 Level 3 Est. Patient 12:13:33 [facility] [employer] Erik Baptiste MD [facility]-02737 Level 3 Est. Patient 09:40:44 [facility] [employer] Jaycee Torrez [facility]-41086 Level 3 Est. Patient 09:36:32 [employer] [employer] Jaycee Torrez [facility] CPT-13696 Level 4 Est. Patient 16:57:02 [employer] [employer]OWER Pelon Quach MD [facility] CPT-63907 Level 4 Est. Patient 22:19:34 CDT Pelon Quach MD [facility]-23997 Level 3 Est. Patient 00:34:41 CDT Pelon Quach MD [facility]-68094 Level 4 Est. Patient 11:19:14 CDT Pelon Quach MD [facility] CPT-43210 Level 4 Est. Patient 16:43:30 [facility] [employer]OWER Pelon Quach MD [facility]-11414 Level 4 Est. Patient 12:42:18 CDT Pelon Quach MD [facility] CPT-82796 Level 4 Est. Patient 11:52:20 CDT Pelon Quach MD [facility] CPT-75018 Level 4 Est. Patient 13:59:46 CDT Pelon Quach MD [facility] CPT-13512 Level 4 Est. Patient 15:10:48 CDT Pelon Quach MD [facility] CPT-94117 Level 4 Est. Patient 17:13:06 CDT Pelon Quach MD [facility] CPT-57501 Level 4 Est. Patient 18:47:47 CDT Pelon Quach MD [facility] CPT-70986 Level 3 Est. Patient 21:01:27 CDT Pelon Quach MD [facility] CPT-11937 Level 3 Est. Patient 14:07:03 CDT Taty Alvarado MD [facility] CPT-83379 Level 3 New Patient 21:39:52 [employer] [employer]OWER Pelon Quach MD [facility] CPT-23174 Level 3 Est. Patient 14:28:44 CDT Glenn Thornton MD [facility] CPT-38858 Level 3 Est. Patient 16:35:00 CDT Glenn Thornton MD [facility] CPT-77018 Level 4 New Patient 17:06:27 CDT Glenn Thornton MD [facility] [place] Procedures Code Procedure Name Date Entry Date Standard Description CPT-G0439 Subsequent Annual Wellness Exam 18:11:17 CDT CPT-G0438 Initial Annual Wellness Exam 09:30:54 CDT CPT-09160 Prevnar 13 Intramuscular Suspension 14:34:25 CDT 12/27 CPT-19686 Chest 2V Frontal and Lat - XRAY USE ONLY 11:56:13 PEACH GROWER CPT-20369 Cystoscopy 14:28:44 CDT CPT-59523 Bladder Scan 14:28:44 CDT CPT-82196 Indwelling Cath Change 17:06:27 CDT CPT-31280 Cystoscopy 17:06:27 CDT
--- OUTSIDE RECORDS SUMMARY | 2018-06-22 11:32 | XMS REPORT | Clinical Summary ---
Author Author Admin, ONESIMO Organization [facility] [place] Address Unknown Phone Unavailable Allergies, Adverse Reactions, [...] as needed for muscle spasm/pain CYCLOBENZAPRINE HCL 57115802035 Active Pelon Quach MD Active BENADRYL 25 MG ORAL CAPSULE 1 po q8hr PRN Congestion DIPHENHYDRAMINE HCL 77716674713 Active Pelon Quach MD Active ZOFRAN 4 MG ORAL TABLET 1 po q6hr PRN Nausea ONDANSETRON HCL 18609805870 Active Pelon Quach MD Active IMODIUM A-D 2 MG ORAL TABLET One QID prn diarrhea. No more than 4 tabs daily LOPERAMIDE HCL 31818347024 Active Pelon Quach MD Active TYLENOL 325 MG ORAL TABLET 2 tabs po prn for pain elevated temp ACETAMINOPHEN 72713925754 Active Pelon Quach MD Active MUCINEX D 60-600 MG ORAL TABLET EXTENDED RELEASE 12 HOUR 1 po BID PRN Congestion PSEUDOEPHEDRINE-GUAIFENESIN 41054733791 Active Pelon Quach MD Active IBUPROFEN 200 MG ORAL TABLET q 6hrs prn pain IBUPROFEN 92030214420 Active Pelon Quach MD Active LORATADINE 10 MG ORAL TABLET 1 tablet by mouth daily prn LORATADINE 72138233641 Active Pelon Quach MD Active BANOPHEN 25 MG ORAL TABLET 1 po every 6 hours PRN allergic reaction DIPHENHYDRAMINE HCL 43922130168 No Longer Active Pelon Quach MD Active EASY TOUCH ALCOHOL PREP MEDIUM 70 % PAD Use with each finger stick and insulin admin Dx: E11.9 ALCOHOL SWABS 10572402451 Active Jaycee Torrez APRN Active HUMALOG KWIKPEN 100 UNIT/ML SUBCUTANEOUS SOLUTION PEN-INJECTOR inject 10 units subcutaneously before meals also sliding scale INSULIN LISPRO 78693185987 Active ePlon Quach MD Active NOVOLOG 100 UNIT/ML SUBCUTANEOUS SOLUTION 10 UNITS BID BEFORE BREAKFAST AND LUNCH INSULIN ASPART 32314224811 No Longer Active NICOLETTE Hitchcock Active NOVOLOG 100 UNIT/ML SUBCUTANEOUS SOLUTION 10 UNITS BEFORE SUPPER INSULIN ASPART 61751594653 No Longer Active NICOLETTE Hitchcock Active INVEGA 6 MG ORAL TABLET EXTENDED RELEASE 24 HOUR 1 po daily for schizophrenia PALIPERIDONE 52982870200 Active Pelon Quach MD Active LAMICTAL 25 MG ORAL TABLET 2 tabs by mouth twice a day LAMOTRIGINE 71763612840 No Longer Active Pelon Quach MD Active BACTROBAN 2 % EXTERNAL OINTMENT Apply to affected area BID 06/28 MUPIROCIN 11018325646 No Longer Active Pelon Quach MD Active INVEGA 6 MG ORAL TABLET EXTENDED RELEASE 24 HOUR 1 po daily for Schizophrenia PALIPERIDONE 66782008804 No Longer Active Pelon Quach MD Active TYLENOL 8 HOUR 650 MG ORAL TABLET EXTENDED RELEASE Take 1 tab po up to 3 times daily as needed ACETAMINOPHEN 40670643880 No Longer Active Pelon Quach MD Active IPRATROPIUM-ALBUTEROL 0.5-2.5 (3) MG/3ML INHALATION SOLUTION 1 neb treatment QID for cough Dx: J06.9 IPRATROPIUM-ALBUTEROL 66335264671 No Longer Active Pelon Quach MD Active BACTRIM DS 800-160 MG ORAL TABLET 1 tab by mouth twice daily 2016 TRIMETHOPRIM-SULFAMETHOXAZOLE 65887674998 No Longer Active Pelon Quach MD Active BACTRIM DS 800-160 MG ORAL TABLET 1 twice a day SULFAMETHOXAZOLE-TRIMETHOPRIM 14501053966 No Longer Active Pelon Quach MD Active IPRATROPIUM-ALBUTEROL 0.5-2.5 (3) MG/3ML INHALATION SOLUTION 1 neb treatment four times daily, for cough IPRATROPIUM-ALBUTEROL 14548765850 No Longer Active Jaycee Torrez APRN Active FUROSEMIDE 40 MG ORAL TABLET Take one by mouth daily FUROSEMIDE 27982819990 No Longer Active Jaycee Torrez APRN Active LANTUS 100 UNIT/ML SUBCUTANEOUS SOLUTION 20 SUBQ AT HS INSULIN GLARGINE 07683734002 Active Pelon Quach MD Active LAMICTAL 25 MG ORAL TABLET 2 tabs po BID for convulsions LAMOTRIGINE 40200243625 Active Jaycee Torrez APRN Active LASIX 20 MG ORAL TABLET 1 tablet by mouth every morning for edema FUROSEMIDE 30493392533 Active Jaycee Torrez APRN Active BUSPIRONE HCL 10 MG ORAL TABLET 1 tab by mouth BID BUSPIRONE HCL 90287058889 Active Jaycee Torrez APRN Active ADULT ASPIRIN EC LOW STRENGTH 81 MG ORAL TABLET DELAYED RELEASE Take one by mouth daily ASPIRIN 24940553197 No Longer Active Pelon Quach MD Active ASPIRIN 81 MG ORAL TABLET 1 po qd ASPIRIN 66605036168 Active Pelon Quach MD Active ZOFRAN 4 MG ORAL TABLET 1 po q6hr PRN Nausea ONDANSETRON HCL 08319735543 No Longer Active Pelon Quach MD Active TYLENOL 325 MG ORAL TABLET 1-2 pills by mouth every 6 hours if needed for pain /fever ACETAMINOPHEN 84046924273 No Longer Active Pelon Quach MD Active INVEGA 6 MG ORAL TABLET EXTENDED RELEASE 24 HOUR 1 TAB ONCE DAILY PALIPERIDONE 54542871473 No Longer Active Carly Suggs Active TEGRETOL 200 MG ORAL TABLET by mouth twice a day CARBAMAZEPINE 48668143287 Active Taty Alvarado MD PhD Active FLOMAX 0.4 MG ORAL CAPSULE 1 Daily TAMSULOSIN HCL 25708690218 Active Marianela Juarez Active DILANTIN 100 MG ORAL CAPSULE Take one by mouth daily PHENYTOIN SODIUM EXTENDED 48094456048 No Longer Active Marianela Juarez Active DEPAKOTE SPRINKLES 125 MG ORAL CAPSULE DELAYED RELEASE SPRINKLE 4 capsules by mouth twice daily DIVALPROEX SODIUM 61658321985 No Longer Active Marianelachandrika Juarez Active LAMICTAL 200 MG ORAL TABLET 1 BY MOUTH TWICE A DAY LAMOTRIGINE 78331787362 Active Marianela Raida Active LAMICTAL 100 MG ORAL TABLET by mouth twice a day LAMOTRIGINE 78291429729 No Longer Active Marianela Raida Active LAMICTAL 150 MG ORAL TABLET by mouth twice a day LAMOTRIGINE 98184330258 No Longer Active Marianelachandrika Juarez Active DILANTIN 100 MG ORAL CAPSULE Take three by mouth daily PHENYTOIN SODIUM EXTENDED 13185134936 No Longer Active Marianela Juarez Active SENOKOT 8.6 MG ORAL TABLET take at bedtime [employer] 08090253554 Active Pelon Quach MD Active LIPITOR 20 MG ORAL TABLET take at bedtime ATORVASTATIN CALCIUM 41674701686 Active Glenn Thornton MD Active LISINOPRIL 2.5 MG ORAL TABLET Take one by mouth daily LISINOPRIL 09426933362 Active Glenn Thornton MD Active TRENTAL 400 MG CR-TABS by mouth twice a day PENTOXIFYLLINE 78849764875 Active Glenn Thornton MD Active KLOR-CON 10 10 MEQ ORAL TABLET EXTENDED RELEASE Take one by mouth daily POTASSIUM CHLORIDE 93945597599 Active Glenn Thornton MD Active DILANTIN 100 MG ORAL CAPSULE Take three by mouth daily DILANTIN 100 MG ORAL CAPSULE 378204 PHENYTOIN SODIUM EXTENDED Inactive LAMICTAL 150 MG ORAL TABLET by mouth twice a day LAMICTAL 150 MG ORAL TABLET 154380 LAMOTRIGINE Inactive LAMICTAL 100 MG ORAL TABLET by mouth twice a day LAMICTAL 100 MG ORAL TABLET 320749 LAMOTRIGINE Inactive DEPAKOTE SPRINKLES 125 MG ORAL CAPSULE DELAYED RELEASE SPRINKLE 4 capsules by mouth twice daily DEPAKOTE SPRINKLES 125 MG ORAL CAPSULE DELAYED RELEASE SPRINKLE 6723845 DIVALPROEX SODIUM Inactive DILANTIN 100 MG ORAL CAPSULE Take one by mouth daily DILANTIN 100 MG ORAL CAPSULE 911666 PHENYTOIN SODIUM EXTENDED Inactive INVEGA 6 MG ORAL TABLET EXTENDED RELEASE 24 HOUR 1 TAB ONCE DAILY INVEGA 6 MG ORAL TABLET EXTENDED RELEASE 24 HOUR PALIPERIDONE Inactive TYLENOL 325 MG ORAL TABLET 1-2 pills by mouth every 6 hours if needed for pain /fever TYLENOL 325 MG ORAL TABLET 357476 ACETAMINOPHEN Inactive ZOFRAN 4 MG ORAL TABLET 1 po q6hr PRN Nausea ZOFRAN 4 MG ORAL TABLET 092111 ONDANSETRON HCL Inactive ADULT ASPIRIN EC LOW STRENGTH 81 MG ORAL TABLET DELAYED RELEASE Take one by mouth daily ADULT ASPIRIN EC LOW STRENGTH 81 MG ORAL TABLET DELAYED RELEASE 434647 ASPIRIN Inactive FUROSEMIDE 40 MG ORAL TABLET Take one by mouth daily FUROSEMIDE 40 MG ORAL TABLET 300346 FUROSEMIDE Inactive BACTRIM DS 800-160 MG ORAL TABLET 1 twice a day BACTRIM DS 800-160 MG ORAL TABLET 19821119 SULFAMETHOXAZOLE-TRIMETHOPRIM Inactive IPRATROPIUM-ALBUTEROL 0.5-2.5 (3) MG/3ML INHALATION SOLUTION 1 neb treatment QID for cough Dx: J06.9 IPRATROPIUM-ALBUTEROL 0.5-2.5 ( 3) MG/3ML INHALATION SOLUTION 4946474 IPRATROPIUM-ALBUTEROL Inactive TYLENOL 8 HOUR 650 MG [...] a day LAMICTAL 25 MG ORAL TABLET 634852 LAMOTRIGINE Inactive NOVOLOG 100 UNIT/ML SUBCUTANEOUS SOLUTION 10 UNITS BEFORE SUPPER NOVOLOG 100 UNIT/ML SUBCUTANEOUS SOLUTION INSULIN ASPART Inactive NOVOLOG 100 UNIT/ML SUBCUTANEOUS SOLUTION 10 UNITS BID BEFORE BREAKFAST AND LUNCH NOVOLOG 100 UNIT/ML SUBCUTANEOUS SOLUTION INSULIN ASPART Inactive BANOPHEN 25 MG ORAL TABLET 1 po every 6 hours PRN allergic reaction BANOPHEN 25 MG ORAL TABLET 0452146 DIPHENHYDRAMINE HCL Inactive IPRATROPIUM-ALBUTEROL 0.5-2.5 (3) MG/3ML INHALATION SOLUTION 1 neb treatment four times daily, for cough IPRATROPIUM-ALBUTEROL 0.5- 2.5 (3) MG/3ML INHALATION SOLUTION 6287935 IPRATROPIUM-ALBUTEROL Inactive BACTRIM DS 800-160 MG ORAL TABLET 1 tab by mouth twice daily 2016 BACTRIM DS 800-160 MG ORAL TABLET 19821119 TRIMETHOPRIM- SULFAMETHOXAZOLE Inactive Advance Directives Directive Description Start Date DURABLE POWER OF TEACHER [employer]AT[employer] FOR HEALTHCARE PERMISSION TO SHARE ADVANCED DIRECTIVE [...] Panel - Chemistry sodium, serum 127 mmol/L 506-561 4059/07/28 potassium, serum 5.3 mmol/L 3.5-5.2 chloride, serum 92 mmol/L 98-107 carbon dioxide, venous blood 32.4 mmol/L 21.0-32.0 blood glucose 182 mg/dL 65-110 calcium, serum 9.4 mg/dL 8.5-10.1 urea nitrogen, blood 14 mg/dL 7-18 creatinine, serum 0.94 mg/dL 0.60-1.30 Lab Report: Comp. Metabolic Panel, CBC, HGBA1C - Chemistry sodium, serum 123 mmol/L 073-118 7276/04/25 carbon dioxide, venous blood 26.2 mmol/L 21.0-32.0 [...] mg/dL Encounters Code Encounter Date Provider Facility CPT-12420 [id number] Vst-Est Level IV 13:48:14 CDT Pelon Quach MD [facility] CPT-08985 [id number] Vst-Est Level II 13:40:42 CDT Pelon Quach MD [facility] CPT-47132 [id number] Vst-Est Level III 13:36:24 CDT Pelon Quach MD [facility] CPT-30821 Level 4 Est. Patient 18:11:18 CDT Pelon Quach MD [facility] CPT-40943 Level 4 Est. Patient 14:46:38 CDT Pelon Quach MD [facility] CPT-01608 Level 4 Est. Patient 08:43:11 CDT Pelon Quach MD [facility] CPT-08862 Level 4 Est. Patient 14:27:30 CDT Pelon Quach MD [facility]-23691 Level 3 Est. Patient 10:32:17 CDT Jaycee Torrez [facility] CPT-56855 Level 3 Est. Patient 10:15:07 CDT Pelon Quach MD [facility]-90066 Level 4 Est. Patient 09:30:54 CDT Pelon Quach MD [facility]-19904 Level 4 Est. Patient 14:34:25 CDT Pelon Quach MD [facility]-37676 Level 3 Est. Patient 11:51:35 EMERGENCY DEPARTMENT Rick Henson DO [facility] CPT-89110 Level 3 Est. Patient 12:13:33 EMERGENCY DEPARTMENT Erik Baptiste MD [facility]-09505 Level 3 Est. Patient 09:40:44 EMERGENCY DEPARTMENT Jaycee Torrez [facility]-53868 Level 3 Est. Patient 09:36:32 EMERGENCY DEPARTMENT Jaycee Torrez [facility] CPT-99223 Level 4 Est. Patient 16:57:02 EMERGENCY DEPARTMENT Pelon Quach MD [facility] CPT-12953 Level 4 Est. Patient 22:19:34 CDT Pelon Quach MD [facility]-74843 Level 3 Est. Patient 00:34:41 CDT Pelon Quach MD [facility]-81190 Level 4 Est. Patient 11:19:14 CDT Pelon Quach MD [facility] CPT-02086 Level 4 Est. Patient 16:43:30 EMERGENCY DEPARTMENT Pelon Quach MD [facility]-53598 Level 4 Est. Patient 12:42:18 CDT Pelon Quach MD [facility] CPT-43232 Level 4 Est. Patient 11:52:20 CDT Pelon Quach MD [facility] CPT-27506 Level 4 Est. Patient 13:59:46 CDT Pelon Quach MD [facility] CPT-31829 Level 4 Est. Patient 15:10:48 CDT Pelon Quach MD [facility] CPT-97064 Level 4 Est. Patient 17:13:06 CDT Pelon Quach MD [facility] CPT-12570 Level 4 Est. Patient 18:47:47 CDT Pelon Quach MD [facility] CPT-72578 Level 3 Est. Patient 21:01:27 CDT Pelon Quach MD [facility] CPT-35897 Level 3 Est. Patient 14:07:03 CDT Taty Alvarado MD [facility] CPT-91414 Level 3 New Patient 21:39:52 EMERGENCY DEPARTMENT Pelon Quach MD [facility] CPT-60290 Level 3 Est. Patient 14:28:44 CDT Glenn Thornton MD [facility] CPT-72303 Level 3 Est. Patient 16:35:00 CDT Glenn Thornton MD [facility] CPT-05901 Level 4 New Patient 17:06:27 CDT Glenn Thornton MD [facility] [place] Procedures Code Procedure Name Date Entry Date Standard Description CPT-G0439 Subsequent Annual Wellness Exam 18:11:17 CDT CPT-G0438 Initial Annual Wellness Exam 09:30:54 CDT CPT-31444 Prevnar 13 Intramuscular Suspension 14:34:25 CDT 12/27 CPT-23366 Chest 2V Frontal and Lat - XRAY USE ONLY 11:56:13 EMERGENCY DEPARTMENT CPT-15283 Cystoscopy 14:28:44 CDT CPT-74017 Bladder Scan 14:28:44 CDT CPT-74785 Indwelling Cath Change 17:06:27 CDT CPT-28972 Cystoscopy 17:06:27 CDT
--- OUTSIDE RECORDS SUMMARY | 2018-06-22 11:33 | XMS REPORT | Clinical Summary ---
Author Author Admin, ONESIMO Organization [facility] [place] Address Unknown Phone Unavailable Allergies, Adverse Reactions, [...] as needed for muscle spasm/pain CYCLOBENZAPRINE HCL 48456068526 Active Pelon Quach MD Active BENADRYL 25 MG ORAL CAPSULE 1 po q8hr PRN Congestion DIPHENHYDRAMINE HCL 72313506671 Active Pelon Quach MD Active ZOFRAN 4 MG ORAL TABLET 1 po q6hr PRN Nausea ONDANSETRON HCL 81514508716 Active Pelon Quach MD Active IMODIUM A-D 2 MG ORAL TABLET One QID prn diarrhea. No more than 4 tabs daily LOPERAMIDE HCL 15794096961 Active Pelon Quach MD Active TYLENOL 325 MG ORAL TABLET 2 tabs po prn for pain elevated temp ACETAMINOPHEN 10257852304 Active Pelon Quach MD Active MUCINEX D 60-600 MG ORAL TABLET EXTENDED RELEASE 12 HOUR 1 po BID PRN Congestion PSEUDOEPHEDRINE-GUAIFENESIN 81281094679 Active Pelon Quach MD Active IBUPROFEN 200 MG ORAL TABLET q 6hrs prn pain IBUPROFEN 64869431450 Active Pelon Quach MD Active LORATADINE 10 MG ORAL TABLET 1 tablet by mouth daily prn LORATADINE 27784299128 Active Pelon Quach MD Active BANOPHEN 25 MG ORAL TABLET 1 po every 6 hours PRN allergic reaction DIPHENHYDRAMINE HCL 61059201198 No Longer Active Pelon Quach MD Active EASY TOUCH ALCOHOL PREP MEDIUM 70 % PAD Use with each finger stick and insulin admin Dx: E11.9 ALCOHOL SWABS 91783648535 Active Jaycee Torrez APRN Active HUMALOG KWIKPEN 100 UNIT/ML SUBCUTANEOUS SOLUTION PEN-INJECTOR inject 10 units subcutaneously before meals also sliding scale INSULIN LISPRO 26801709261 Active Pelon Quach MD Active NOVOLOG 100 UNIT/ML SUBCUTANEOUS SOLUTION 10 UNITS BID BEFORE BREAKFAST AND LUNCH INSULIN ASPART 43830657951 No Longer Active NICOLETTE Hitchcock Active NOVOLOG 100 UNIT/ML SUBCUTANEOUS SOLUTION 10 UNITS BEFORE SUPPER INSULIN ASPART 97779011665 No Longer Active NICOLETTE Hitchcock Active INVEGA 6 MG ORAL TABLET EXTENDED RELEASE 24 HOUR 1 po daily for schizophrenia PALIPERIDONE 36574016300 Active Pelon Quach MD Active LAMICTAL 25 MG ORAL TABLET 2 tabs by mouth twice a day LAMOTRIGINE 39665265540 No Longer Active Pelon Quach MD Active BACTROBAN 2 % EXTERNAL OINTMENT Apply to affected area BID 06/28 MUPIROCIN [id number] No Longer Active Pelon Quach MD Active INVEGA 6 MG ORAL TABLET EXTENDED RELEASE 24 HOUR 1 po daily for Schizophrenia PALIPERIDONE 22675576666 No Longer Active Pelon Quach MD Active TYLENOL 8 HOUR 650 MG ORAL TABLET EXTENDED RELEASE Take 1 tab po up to 3 times daily as needed ACETAMINOPHEN 45738338670 No Longer Active Pelon Quach MD Active IPRATROPIUM-ALBUTEROL 0.5-2.5 (3) MG/3ML INHALATION SOLUTION 1 neb treatment QID for cough Dx: J06.9 IPRATROPIUM-ALBUTEROL 25866727913 No Longer Active Pelon Quach MD Active BACTRIM DS 800-160 MG ORAL TABLET 1 tab by mouth twice daily 2016 TRIMETHOPRIM-SULFAMETHOXAZOLE 76327776327 No Longer Active Pelon Quach MD Active BACTRIM DS 800-160 MG ORAL TABLET 1 twice a day SULFAMETHOXAZOLE-TRIMETHOPRIM 62331684865 No Longer Active Pelon Quach MD Active IPRATROPIUM-ALBUTEROL 0.5-2.5 (3) MG/3ML INHALATION SOLUTION 1 neb treatment four times daily, for cough IPRATROPIUM-ALBUTEROL 24621970670 No Longer Active Jaycee Torrez APRN Active FUROSEMIDE 40 MG ORAL TABLET Take one by mouth daily FUROSEMIDE 26416043652 No Longer Active Jaycee Torrez APRN Active LANTUS 100 UNIT/ML SUBCUTANEOUS SOLUTION 20 SUBQ AT HS INSULIN GLARGINE 55938232339 Active Pelon Quach MD Active LAMICTAL 25 MG ORAL TABLET 2 tabs po BID for convulsions LAMOTRIGINE 18056741831 Active Jaycee Torrez APRN Active LASIX 20 MG ORAL TABLET 1 tablet by mouth every morning for edema FUROSEMIDE 78379597253 Active Jaycee Torrez APRN Active BUSPIRONE HCL 10 MG ORAL TABLET 1 tab by mouth BID BUSPIRONE HCL 36538298019 Active Jaycee Torrez APRN Active ADULT ASPIRIN EC LOW STRENGTH 81 MG ORAL TABLET DELAYED RELEASE Take one by mouth daily ASPIRIN 02503140718 No Longer Active Pelon Quach MD Active ASPIRIN 81 MG ORAL TABLET 1 po qd ASPIRIN 73980022861 Active Pelon Quach MD Active ZOFRAN 4 MG ORAL TABLET 1 po q6hr PRN Nausea ONDANSETRON HCL 03107118435 No Longer Active Pelon Quach MD Active TYLENOL 325 MG ORAL TABLET 1-2 pills by mouth every 6 hours if needed for pain /fever ACETAMINOPHEN 18142534587 No Longer Active Pelon Quach MD Active INVEGA 6 MG ORAL TABLET EXTENDED RELEASE 24 HOUR 1 TAB ONCE DAILY PALIPERIDONE 50331521715 No Longer Active Carly Suggs Active TEGRETOL 200 MG ORAL TABLET by mouth twice a day CARBAMAZEPINE 32120948561 Active Taty Alvarado MD PhD Active FLOMAX 0.4 MG ORAL CAPSULE 1 Daily TAMSULOSIN HCL 51138532701 Active Marianela Juarez Active DILANTIN 100 MG ORAL CAPSULE Take one by mouth daily PHENYTOIN SODIUM EXTENDED 10089901119 No Longer Active Marianela Juarez Active DEPAKOTE SPRINKLES 125 MG ORAL CAPSULE DELAYED RELEASE SPRINKLE 4 capsules by mouth twice daily DIVALPROEX SODIUM 26384112643 No Longer Active Marianelachandrika Juarez Active LAMICTAL 200 MG ORAL TABLET 1 BY MOUTH TWICE A DAY LAMOTRIGINE 26169153342 Active Marianela Raida Active LAMICTAL 100 MG ORAL TABLET by mouth twice a day LAMOTRIGINE 27610689051 No Longer Active Marianela Raida Active LAMICTAL 150 MG ORAL TABLET by mouth twice a day LAMOTRIGINE 45963992947 No Longer Active Marianelachandrika Juarez Active DILANTIN 100 MG ORAL CAPSULE Take three by mouth daily PHENYTOIN SODIUM EXTENDED 46325829622 No Longer Active Marianela Juarez Active SENOKOT 8.6 MG ORAL TABLET take at bedtime [facility] 91224507235 Active Pelon Quach MD Active LIPITOR 20 MG ORAL TABLET take at bedtime ATORVASTATIN CALCIUM 52167173395 Active Glenn Thornton MD Active LISINOPRIL 2.5 MG ORAL TABLET Take one by mouth daily LISINOPRIL 03318495665 Active Glenn Thornton MD Active TRENTAL 400 MG CR-TABS by mouth twice a day PENTOXIFYLLINE 50426718941 Active Glenn Thornton MD Active KLOR-CON 10 10 MEQ ORAL TABLET EXTENDED RELEASE Take one by mouth daily POTASSIUM CHLORIDE 73832119219 Active Glenn Thornton MD Active DILANTIN 100 MG ORAL CAPSULE Take three by mouth daily DILANTIN 100 MG ORAL CAPSULE 656448 PHENYTOIN SODIUM EXTENDED Inactive LAMICTAL 150 MG ORAL TABLET by mouth twice a day LAMICTAL 150 MG ORAL TABLET 023559 LAMOTRIGINE Inactive LAMICTAL 100 MG ORAL TABLET by mouth twice a day LAMICTAL 100 MG ORAL TABLET 363446 LAMOTRIGINE Inactive DEPAKOTE SPRINKLES 125 MG ORAL CAPSULE DELAYED RELEASE SPRINKLE 4 capsules by mouth twice daily DEPAKOTE SPRINKLES 125 MG ORAL CAPSULE DELAYED RELEASE SPRINKLE 3345467 DIVALPROEX SODIUM Inactive DILANTIN 100 MG ORAL CAPSULE Take one by mouth daily DILANTIN 100 MG ORAL CAPSULE 783102 PHENYTOIN SODIUM EXTENDED Inactive INVEGA 6 MG ORAL TABLET EXTENDED RELEASE 24 HOUR 1 TAB ONCE DAILY INVEGA 6 MG ORAL TABLET EXTENDED RELEASE 24 HOUR PALIPERIDONE Inactive TYLENOL 325 MG ORAL TABLET 1-2 pills by mouth every 6 hours if needed for pain /fever TYLENOL 325 MG ORAL TABLET 120631 ACETAMINOPHEN Inactive ZOFRAN 4 MG ORAL TABLET 1 po q6hr PRN Nausea ZOFRAN 4 MG ORAL TABLET 397479 ONDANSETRON HCL Inactive ADULT ASPIRIN EC LOW STRENGTH 81 MG ORAL TABLET DELAYED RELEASE Take one by mouth daily ADULT ASPIRIN EC LOW STRENGTH 81 MG ORAL TABLET DELAYED RELEASE 985006 ASPIRIN Inactive FUROSEMIDE 40 MG ORAL TABLET Take one by mouth daily FUROSEMIDE 40 MG ORAL TABLET 631050 FUROSEMIDE Inactive BACTRIM DS 800-160 MG ORAL TABLET 1 twice a day BACTRIM DS 800-160 MG ORAL TABLET 19821119 SULFAMETHOXAZOLE-TRIMETHOPRIM Inactive IPRATROPIUM-ALBUTEROL 0.5-2.5 (3) MG/3ML INHALATION SOLUTION 1 neb treatment QID for cough Dx: J06.9 IPRATROPIUM-ALBUTEROL 0.5-2.5 ( 3) MG/3ML INHALATION SOLUTION 2572644 IPRATROPIUM-ALBUTEROL Inactive TYLENOL 8 HOUR 650 MG [...] a day LAMICTAL 25 MG ORAL TABLET 838300 LAMOTRIGINE Inactive NOVOLOG 100 UNIT/ML SUBCUTANEOUS SOLUTION 10 UNITS BEFORE SUPPER NOVOLOG 100 UNIT/ML SUBCUTANEOUS SOLUTION INSULIN ASPART Inactive NOVOLOG 100 UNIT/ML SUBCUTANEOUS SOLUTION 10 UNITS BID BEFORE BREAKFAST AND LUNCH NOVOLOG 100 UNIT/ML SUBCUTANEOUS SOLUTION INSULIN ASPART Inactive BANOPHEN 25 MG ORAL TABLET 1 po every 6 hours PRN allergic reaction BANOPHEN 25 MG ORAL TABLET 3103331 DIPHENHYDRAMINE HCL Inactive IPRATROPIUM-ALBUTEROL 0.5-2.5 (3) MG/3ML INHALATION SOLUTION 1 neb treatment four times daily, for cough IPRATROPIUM-ALBUTEROL 0.5- 2.5 (3) MG/3ML INHALATION SOLUTION 6140911 IPRATROPIUM-ALBUTEROL Inactive BACTRIM DS 800-160 MG ORAL TABLET 1 tab by mouth twice daily 2016 BACTRIM DS 800-160 MG ORAL TABLET 19821119 TRIMETHOPRIM- SULFAMETHOXAZOLE Inactive Advance Directives Directive Description Start Date DURABLE POWER OF SELF SEALING FUEL TANK BUILDER FOR HEALTHCARE PERMISSION TO SHARE ADVANCED DIRECTIVE Vital Signs Date Name Value Unit Range Description blood pressure, diastolic 77 mm[Hg] BP daly [...] Panel - Chemistry sodium, serum 127 mmol/L 927-035 8274/07/28 potassium, serum 5.3 mmol/L 3.5-5.2 chloride, serum 92 mmol/L 98-107 carbon dioxide, venous blood 32.4 mmol/L 21.0-32.0 blood glucose 182 mg/dL 65-110 calcium, serum 9.4 mg/dL 8.5-10.1 urea nitrogen, blood 14 mg/dL 7-18 creatinine, serum 0.94 mg/dL 0.60-1.30 Lab Report: Comp. Metabolic Panel, CBC, HGBA1C - Chemistry sodium, serum 123 mmol/L 974-401 0766/04/25 carbon dioxide, venous blood 26.2 mmol/L 21.0-32.0 [...] urine, semiquantitative Negative Negative Office Visit: 3 MO F/U-RD,RMA - Basic LDL target level 100 mg/dL Office Visit: 3 MO F/U-RD,A - Chemistry HDL cholesterol, serum, target level 40 mg/dL triglyceride, target level 150 mg/dL cholesterol, target level 200 mg/dL Office Visit: AWV - Basic LDL target level 100 mg/dL Office Visit: AWV - Chemistry cholesterol, target level 200 mg/dL triglyceride, target level 200 mg/dL HDL cholesterol, serum, target level 35 mg/dL Encounters Code Encounter Date Provider Facility CPT-78901 [id number] Vst-Est Level IV 13:48:14 CDT Pelon Quach MD [facility] CPT-30839 [id number] Vst-Est Level II 13:40:42 CDT Pelon Quach MD [facility] CPT-41138 [id number] Vst-Est Level III 13:36:24 CDT Pelon Quach MD [facility] CPT-07714 Level 4 Est. Patient 18:11:18 CDT Pelon Quach MD [facility] CPT-44249 Level 4 Est. Patient 14:46:38 CDT Pelon Quach MD [facility] CPT-99065 Level 4 Est. Patient 08:43:11 CDT Pelon Quach MD [facility] CPT-87008 Level 4 Est. Patient 14:27:30 CDT Pelon Quach MD [facility] CPT-80500 Level 3 Est. Patient 10:32:17 CDT Jaycee Torrez APRN [facility] CPT-65408 Level 3 Est. Patient 10:15:07 CDT Pelon Quach MD [facility] CPT-62879 Level 4 Est. Patient 09:30:54 CDT Pelon Quach MD [facility] CPT-78012 Level 4 Est. Patient 14:34:25 CDT Pelon Quach MD [facility] CPT-94754 Level 3 Est. Patient 11:51:35 [employer] Rick Henson DO [facility] CPT-47049 Level 3 Est. Patient 12:13:33 [employer] Erik Baptiste MD [facility] CPT-71299 Level 3 Est. 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 Patient 16:57:02 [employer] Pelon Quach MD [facility]-03423 Level 4 Est. Patient 22:19:34 CDT Pelon Quach MD [facility]-31613 Level 3 Est. Patient 00:34:41 CDT Pelon Quach MD [facility]-42033 Level 4 Est. Patient 11:19:14 CDT Pelon Quach MD [facility]-16888 Level 4 Est. Patient 16:43:30 [employer] Pelon Quach MD [facility]-27531 Level 4 Est. Patient 12:42:18 CDT Pelon Quach MD [facility] CPT-67129 Level 4 Est. Patient 11:52:20 CDT Pelon Quach MD [facility]-94742 Level 4 Est. Patient 13:59:46 CDT Pelon Quach MD [facility] CPT-42965 Level 4 Est. Patient 15:10:48 CDT Pelon Quach MD [facility] CPT-95390 Level 4 Est. Patient 17:13:06 CDT Pelon Quach MD [facility]-60979 Level 4 Est. Patient 18:47:47 CDT Pelon Quach MD [facility]-12271 Level 3 Est. Patient 21:01:27 CDT Pelon Quach MD [facility]-81162 Level 3 Est. Patient 14:07:03 CDT Taty Alvarado MD PhD [facility] CPT-77032 Level 3 New Patient 21:39:52 [employer] Pelon Quach MD [facility] CPT-96895 Level 3 Est. Patient 14:28:44 CDT Glenn Thornton MD [facility] CPT-71965 Level 3 Est. Patient 16:35:00 CDT Glenn Thornton MD [facility] CPT-42354 Level 4 New Patient 17:06:27 CDT [facility] Procedures Code Procedure Name Date Entry Date Standard Description CPT-G0439 Subsequent Annual Wellness Exam 18:11:17 CDT CPT-G0438 Initial Annual Wellness Exam 09:30:54 CDT CPT-25748 Prevnar 13 Intramuscular Suspension 14:34:25 CDT 12/27 CPT-00030 Chest 2V Frontal and Lat - XRAY USE ONLY 11:56:13 [employer] CPT-12954 Cystoscopy 14:28:44 CDT CPT-65482 Bladder Scan 14:28:44 CDT CPT-00184 Indwelling Cath Change 17:06:27 CDT CPT-74173 Cystoscopy 17:06:27 CDT
--- OUTSIDE RECORDS SUMMARY | 2018-06-22 11:34 | XMS REPORT | Clinical Summary ---
Author Author Admin, ONESIMO Organization [facility] [employer] [place] Address Unknown Phone Unavailable Allergies, Adverse Reactions, [...] History of ATRIAL FIBRILLATION 427.31 Inactive Pelon Qauch MD Atrial fibrillation URINARY RETENTION 788.20 Resolved [...] as needed for muscle spasm/pain CYCLOBENZAPRINE HCL 49278700602 Active Pelon Quach MD Active BENADRYL 25 MG ORAL CAPSULE 1 po q8hr PRN Congestion DIPHENHYDRAMINE HCL 42426045913 Active Pelon Quach MD Active ZOFRAN 4 MG ORAL TABLET 1 po q6hr PRN Nausea ONDANSETRON HCL 39904958688 Active Pelon Quach MD Active IMODIUM A-D 2 MG ORAL TABLET One QID prn diarrhea. No more than 4 tabs daily LOPERAMIDE HCL 45416955859 Active Pelon Quach MD Active TYLENOL 325 MG ORAL TABLET 2 tabs po prn for pain elevated temp ACETAMINOPHEN 78131615796 Active Pleon Quach MD Active MUCINEX D 60-600 MG ORAL TABLET EXTENDED RELEASE 12 HOUR 1 po BID PRN Congestion PSEUDOEPHEDRINE-GUAIFENESIN 31043792265 Active Pelon Quach MD Active IBUPROFEN 200 MG ORAL TABLET q 6hrs prn pain IBUPROFEN 72942377830 Active Pelon Quach MD Active LORATADINE 10 MG ORAL TABLET 1 tablet by mouth daily prn LORATADINE 50645756183 Active Pelon Quach MD Active BANOPHEN 25 MG ORAL TABLET 1 po every 6 hours PRN allergic reaction DIPHENHYDRAMINE HCL 62148709131 No Longer Active Pelon Quach MD Active EASY TOUCH ALCOHOL PREP MEDIUM 70 % PAD Use with each finger stick and insulin admin Dx: E11.9 ALCOHOL SWABS 91211162525 Active Jaycee Torrez APRN Active HUMALOG KWIKPEN 100 UNIT/ML SUBCUTANEOUS SOLUTION PEN-INJECTOR inject 10 units subcutaneously before meals also sliding scale INSULIN LISPRO 52619061581 Active Pelon Quach MD Active NOVOLOG 100 UNIT/ML SUBCUTANEOUS SOLUTION 10 UNITS BID BEFORE BREAKFAST AND LUNCH INSULIN ASPART 60801702309 No Longer Active NICOLETTE Hitchcock Active NOVOLOG 100 UNIT/ML SUBCUTANEOUS SOLUTION 10 UNITS BEFORE SUPPER INSULIN ASPART 03178054570 No Longer Active NICOLETTE Hitchcock Active INVEGA 6 MG ORAL TABLET EXTENDED RELEASE 24 HOUR 1 po daily for schizophrenia PALIPERIDONE 84349910471 Active Pelon Quach MD Active LAMICTAL 25 MG ORAL TABLET 2 tabs by mouth twice a day LAMOTRIGINE 06314930795 No Longer Active Pelon Quach MD Active BACTROBAN 2 % EXTERNAL OINTMENT Apply to affected area BID 06/28 MUPIROCIN 70552906529 No Longer Active Pelon Quach MD Active INVEGA 6 MG ORAL TABLET EXTENDED RELEASE 24 HOUR 1 po daily for Schizophrenia PALIPERIDONE 44288231953 No Longer Active Pelon Quach MD Active TYLENOL 8 HOUR 650 MG ORAL TABLET EXTENDED RELEASE Take 1 tab po up to 3 times daily as needed ACETAMINOPHEN 09687033279 No Longer Active Pelon Quach MD Active IPRATROPIUM-ALBUTEROL 0.5-2.5 (3) MG/3ML INHALATION SOLUTION 1 neb treatment QID for cough Dx: J06.9 IPRATROPIUM-ALBUTEROL 56158928199 No Longer Active Pelon Quach MD Active BACTRIM DS 800-160 MG ORAL TABLET 1 tab by mouth twice daily 2016 TRIMETHOPRIM-SULFAMETHOXAZOLE 87157963115 No Longer Active Pelon Quach MD Active BACTRIM DS 800-160 MG ORAL TABLET 1 twice a day SULFAMETHOXAZOLE-TRIMETHOPRIM 15355923292 No Longer Active Pelon Quach MD Active IPRATROPIUM-ALBUTEROL 0.5-2.5 (3) MG/3ML INHALATION SOLUTION 1 neb treatment four times daily, for cough IPRATROPIUM-ALBUTEROL 70175813784 No Longer Active Jaycee Torrez APRN Active FUROSEMIDE 40 MG ORAL TABLET Take one by mouth daily FUROSEMIDE 29277262363 No Longer Active Jaycee Torrez APRN Active LANTUS 100 UNIT/ML SUBCUTANEOUS SOLUTION 20 SUBQ AT HS INSULIN GLARGINE 55810803612 Active Pelon Quach MD Active LAMICTAL 25 MG ORAL TABLET 2 tabs po BID for convulsions LAMOTRIGINE 52094878458 Active Jaycee Torrez APRN Active LASIX 20 MG ORAL TABLET 1 tablet by mouth every morning for edema FUROSEMIDE 54922775107 Active Jaycee Torrez APRN Active BUSPIRONE HCL 10 MG ORAL TABLET 1 tab by mouth BID BUSPIRONE HCL 27495785028 Active Jaycee Torrez APRN Active ADULT ASPIRIN EC LOW STRENGTH 81 MG ORAL TABLET DELAYED RELEASE Take one by mouth daily ASPIRIN 70973832390 No Longer Active Pelon Quach MD Active ASPIRIN 81 MG ORAL TABLET 1 po qd ASPIRIN 14112074016 Active Pelon Quach MD Active ZOFRAN 4 MG ORAL TABLET 1 po q6hr PRN Nausea ONDANSETRON HCL 68850113165 No Longer Active Pelon Quach MD Active TYLENOL 325 MG ORAL TABLET 1-2 pills by mouth every 6 hours if needed for pain /fever ACETAMINOPHEN 23098437880 No Longer Active Pelon Quach MD Active INVEGA 6 MG ORAL TABLET EXTENDED RELEASE 24 HOUR 1 TAB ONCE DAILY PALIPERIDONE 77739795589 No Longer Active Carly Suggs Active TEGRETOL 200 MG ORAL TABLET by mouth twice a day CARBAMAZEPINE 61979327471 Active Taty Alvaardo MD PhD Active FLOMAX 0.4 MG ORAL CAPSULE 1 Daily TAMSULOSIN HCL 06552115192 Active Marianela Juarez Active DILANTIN 100 MG ORAL CAPSULE Take one by mouth daily PHENYTOIN SODIUM EXTENDED 04379878661 No Longer Active Marianela Juarez Active DEPAKOTE SPRINKLES 125 MG ORAL CAPSULE DELAYED RELEASE SPRINKLE 4 capsules by mouth twice daily DIVALPROEX SODIUM 14752253660 No Longer Active Marianelachandrika Juarez Active LAMICTAL 200 MG ORAL TABLET 1 BY MOUTH TWICE A DAY LAMOTRIGINE 58922049089 Active Marianela Raida Active LAMICTAL 100 MG ORAL TABLET by mouth twice a day LAMOTRIGINE 04312218010 No Longer Active Marianela Raida Active LAMICTAL 150 MG ORAL TABLET by mouth twice a day LAMOTRIGINE 72872390909 No Longer Active Marianelachandrika Juarez Active DILANTIN 100 MG ORAL CAPSULE Take three by mouth daily PHENYTOIN SODIUM EXTENDED 04214783841 No Longer Active Marianela Juarez Active SENOKOT 8.6 MG ORAL TABLET take at bedtime [facility] 53952379905 Active Pelon Quach MD Active LIPITOR 20 MG ORAL TABLET take at bedtime ATORVASTATIN CALCIUM 81065441721 Active Glenn Thornton MD Active LISINOPRIL 2.5 MG ORAL TABLET Take one by mouth daily LISINOPRIL 34320399638 Active Glenn Thornton MD Active TRENTAL 400 MG CR-TABS by mouth twice a day PENTOXIFYLLINE 31826775148 Active Glenn Thornton MD Active KLOR-CON 10 10 MEQ ORAL TABLET EXTENDED RELEASE Take one by mouth daily POTASSIUM CHLORIDE 53383385690 Active Glenn Thornton MD Active DILANTIN 100 MG ORAL CAPSULE Take three by mouth daily DILANTIN 100 MG ORAL CAPSULE 974621 PHENYTOIN SODIUM EXTENDED Inactive LAMICTAL 150 MG ORAL TABLET by mouth twice a day LAMICTAL 150 MG ORAL TABLET 437772 LAMOTRIGINE Inactive LAMICTAL 100 MG ORAL TABLET by mouth twice a day LAMICTAL 100 MG ORAL TABLET 464408 LAMOTRIGINE Inactive DEPAKOTE SPRINKLES 125 MG ORAL CAPSULE DELAYED RELEASE SPRINKLE 4 capsules by mouth twice daily DEPAKOTE SPRINKLES 125 MG ORAL CAPSULE DELAYED RELEASE SPRINKLE 2223786 DIVALPROEX SODIUM Inactive DILANTIN 100 MG ORAL CAPSULE Take one by mouth daily DILANTIN 100 MG ORAL CAPSULE 751018 PHENYTOIN SODIUM EXTENDED Inactive INVEGA 6 MG ORAL TABLET EXTENDED RELEASE 24 HOUR 1 TAB ONCE DAILY INVEGA 6 MG ORAL TABLET EXTENDED RELEASE 24 HOUR PALIPERIDONE Inactive TYLENOL 325 MG ORAL TABLET 1-2 pills by mouth every 6 hours if needed for pain /fever TYLENOL 325 MG ORAL TABLET 676123 ACETAMINOPHEN Inactive ZOFRAN 4 MG ORAL TABLET 1 po q6hr PRN Nausea ZOFRAN 4 MG ORAL TABLET 023086 ONDANSETRON HCL Inactive ADULT ASPIRIN EC LOW STRENGTH 81 MG ORAL TABLET DELAYED RELEASE Take one by mouth daily ADULT ASPIRIN EC LOW STRENGTH 81 MG ORAL TABLET DELAYED RELEASE 764826 ASPIRIN Inactive FUROSEMIDE 40 MG ORAL TABLET Take one by mouth daily FUROSEMIDE 40 MG ORAL TABLET 760111 FUROSEMIDE Inactive BACTRIM DS 800-160 MG ORAL TABLET 1 twice a day BACTRIM DS 800-160 MG ORAL TABLET 19821119 SULFAMETHOXAZOLE-TRIMETHOPRIM Inactive IPRATROPIUM-ALBUTEROL 0.5-2.5 (3) MG/3ML INHALATION SOLUTION 1 neb treatment QID for cough Dx: J06.9 IPRATROPIUM-ALBUTEROL 0.5-2.5 ( 3) MG/3ML INHALATION SOLUTION 5274456 IPRATROPIUM-ALBUTEROL Inactive TYLENOL 8 HOUR 650 MG [...] a day LAMICTAL 25 MG ORAL TABLET 288563 LAMOTRIGINE Inactive NOVOLOG 100 UNIT/ML SUBCUTANEOUS SOLUTION 10 UNITS BEFORE SUPPER NOVOLOG 100 UNIT/ML SUBCUTANEOUS SOLUTION INSULIN ASPART Inactive NOVOLOG 100 UNIT/ML SUBCUTANEOUS SOLUTION 10 UNITS BID BEFORE BREAKFAST AND LUNCH NOVOLOG 100 UNIT/ML SUBCUTANEOUS SOLUTION INSULIN ASPART Inactive BANOPHEN 25 MG ORAL TABLET 1 po every 6 hours PRN allergic reaction BANOPHEN 25 MG ORAL TABLET 2515339 DIPHENHYDRAMINE HCL Inactive IPRATROPIUM-ALBUTEROL 0.5-2.5 (3) MG/3ML INHALATION SOLUTION 1 neb treatment four times daily, for cough IPRATROPIUM-ALBUTEROL 0.5- 2.5 (3) MG/3ML INHALATION SOLUTION 7614094 IPRATROPIUM-ALBUTEROL Inactive BACTRIM DS 800-160 MG ORAL TABLET 1 tab by mouth twice daily 2016 BACTRIM DS 800-160 MG ORAL TABLET 19821119 TRIMETHOPRIM- SULFAMETHOXAZOLE Inactive Advance Directives Directive Description Start Date DURABLE POWER OF CERTIFIED SCRUB TECH FOR HEALTHCARE PERMISSION TO SHARE ADVANCED DIRECTIVE [...] temperature weight E&M 176 [lb_av] Weight Measured blood pressure, diastolic 66 mm[Hg] BP daly blood pressure, systolic 138 mm[Hg] BP sys height E&M 66 [in_us] Bdy height pulse rate E&M 95 /min Heart rate temperature E&M 98.9 [degF] Body temperature weight E&M 177 [lb_av] Weight Measured Diagnostic Results Date Name Value Unit Range Description Lab Report: Basic Metabolic Panel - Chemistry sodium, serum 127 mmol/L 957-902 4885/07/28 potassium, serum 5.3 mmol/L 3.5-5.2 chloride, serum 92 mmol/L 98-107 carbon dioxide, venous blood 32.4 mmol/L 21.0-32.0 blood glucose 182 mg/dL 65-110 calcium, serum 9.4 mg/dL 8.5-10.1 urea nitrogen, blood 14 mg/dL 7-18 creatinine, serum 0.94 mg/dL 0.60-1.30 Lab Report: CBC, Comp. Metabolic Panel - Chemistry sodium, serum 129 mmol/L 060-256 2606/07/12 carbon dioxide, venous blood 27.8 mmol/L 21.0-32.0 potassium, serum 5.5 mmol/L 3.5-5.2 chloride, serum 95 mmol/L 98-107 blood glucose 194 mg/dL 65-110 urea nitrogen, blood 17 mg/dL 7-18 creatinine, serum 0.82 mg/dL 0.60-1.30 alanine aminotransferase (SGPT), serum 17 U/L 12-78 aspartate aminotransferase (SGOT), serum 31 U/L 15-37 calcium, serum 8.8 mg/dL 8.5-10.1 bilirubin, serum, total 0.40 mg/dL 0.00-1.00 Lab Report: CBC, Comp. Metabolic Panel - Hematology leukocyte count, blood 5.3 10^3/MM^3 10*3/mm3 4.6-10.2 erythrocyte (RBC) count 4.19 10^6/MM^3 10*6/mm3 4.50-6.50 hemoglobin, blood 13.4 g/dL 14.0-18.0 hematocrit, blood 38.9 % 40.0-54.0 mean corpuscular volume, RBC 93 fL 80-97 mean corpuscular hemoglobin, RBC 31.9 pg 27.0-31.2 mean corpuscular hemoglobin concentration, RBC 34.4 G/DL % 31.8- 35.4 red blood cell distribution width 15.0 % 11.6-14.8 platelet count 270 10^3/MM^3 10*3/mm3 142-424 Lab Report: Comp. Metabolic Panel, CBC, HGBA1C - Chemistry sodium, serum 123 mmol/L 407-210 1802/04/25 carbon dioxide, venous blood 26.2 mmol/L 21.0-32.0 [...] A1C, blood, as % of total hemoglobin 7.0 % 4.3-6.0 hemoglobin A1C, blood, as % of total hemoglobin 6.8 % 4.3-6.0 Lab Report: UADIP W/MICRO, AUTO [...] urine, semiquantitative 6.5 5.0-8.5 Office Visit: 3 MO F/U - Basic LDL target level 100 mg/dL Office Visit: 3 MO F/U - Chemistry cholesterol, target level 200 mg/dL triglyceride, target level 150 mg/dL HDL cholesterol, serum, target level 40 mg/dL Office Visit: 3 MO F/U-RD,RMA - [...] mg/dL Encounters Code Encounter Date Provider Facility CPT-15338 [id number] Vst-Est Level II 13:40:42 CDT Pelon Quach MD [facility] CPT-75916 [id number] Vst-Est Level III 13:36:24 CDT Pelon Quach MD [facility] CPT-94409 Level 4 Est. Patient 18:11:18 CDT Pelon Quach MD [facility] CPT-19136 Level 4 Est. Patient 14:46:38 CDT Pelon Quach MD [facility] CPT-82680 Level 4 Est. Patient 08:43:11 CDT Pelon Quach MD [facility] CPT-09070 Level 4 Est. Patient 14:27:30 CDT Pelon Quach MD [facility] CPT-51939 Level 3 Est. Patient 10:32:17 CDT Jaycee Torrez APRN [facility] CPT-73439 Level 3 Est. Patient 10:15:07 CDT Pelon Quach MD [facility] CPT-13503 Level 4 Est. Patient 09:30:54 CDT Pelon Quach MD [facility]-34788 Level 4 Est. Patient 14:34:25 CDT Pelon Quach MD [facility]-01239 Level 3 Est. Patient 11:51:35 RN TELE Rick Henson DO [facility]-74747 Level 3 Est. Patient 12:13:33 RN TELE Erik Baptiste MD [facility]-04161 Level 3 Est. Patient 09:40:44 RN TELE Jaycee Torrez [facility]-30955 Level 3 Est. Patient 09:36:32 RN TELE Jaycee Torrez [facility] CPT-08362 Level 4 Est. Patient 16:57:02 RN TELE Pelon Quach MD [facility]-88924 Level 4 Est. Patient 22:19:34 CDT Pelon Quach MD [facility]-14006 Level 3 Est. Patient 00:34:41 CDT Pelon Quach MD [facility]-28226 Level 4 Est. Patient 11:19:14 CDT Pelon Quach MD [facility]-96174 Level 4 Est. Patient 16:43:30 RN TELE Pelon Quach MD [facility]-00063 Level 4 Est. Patient 12:42:18 CDT Pelon Quach MD [facility] CPT-77727 Level 4 Est. Patient 11:52:20 CDT Pelon Quach MD [facility] CPT-72749 Level 4 Est. Patient 13:59:46 CDT Pelon Quach MD [facility] CPT-94496 Level 4 Est. Patient 15:10:48 CDT Pelon Quach MD [facility] CPT-15964 Level 4 Est. Patient 17:13:06 CDT Pelon Quach MD [facility] CPT-82157 Level 4 Est. Patient 18:47:47 CDT Pelon Quach MD [facility] CPT-92191 Level 3 Est. Patient 21:01:27 CDT Pelon Quach MD [facility] CPT-03295 Level 3 Est. Patient 14:07:03 CDT Taty Alvarado MD PhD [facility] CPT-51380 Level 3 New Patient 21:39:52 RN TELE Pelon Quach MD [facility] CPT-29291 Level 3 Est. Patient 14:28:44 CDT Glenn Thornton MD [facility] CPT-50563 Level 3 Est. Patient 16:35:00 CDT Glenn Thornton MD [facility] CPT-42442 Level 4 New Patient 17:06:27 CDT Glenn Thornton MD [facility] [place] Procedures Code Procedure Name Date Entry Date Standard Description CPT-G0439 Subsequent Annual Wellness Exam 18:11:17 CDT CPT-G0438 Initial Annual Wellness Exam 09:30:54 CDT CPT-21471 Prevnar 13 Intramuscular Suspension 14:34:25 CDT 12/27 CPT-87467 Chest 2V Frontal and Lat - XRAY USE ONLY 11:56:13 RN TELE CPT-72336 Cystoscopy 14:28:44 CDT CPT-43211 Bladder Scan 14:28:44 CDT CPT-25767 Indwelling Cath Change 17:06:27 CDT CPT-66206 Cystoscopy 17:06:27 CDT
--- OUTSIDE RECORDS SUMMARY | 2018-06-22 11:35 | XMS REPORT | Clinical Summary ---
Author Author Admin, E Organization [facility] [employer] Address Unknown Phone Unavailable Allergies, Adverse Reactions, Alerts Allergy Name Reaction Description Start Date Severity Status Provider No Known Allergies Marianela Juarez Conditions or Problems Problem Name Problem Code Onset Date Status Entry Date Provider Comment Standard Description Annotate History of ANXIETY 300.00 Active Glenn Thornton MD Anxiety state, unspecified HYPERTENSION 401.9 Active Glenn Thornton MD Unspecified essential hypertension SEIZURE DISORDER 780.39 Active Glenn Thornton MD Other convulsions History of ATRIAL FIBRILLATION 427.31 Active Glenn Thornton MD Atrial fibrillation URINARY RETENTION 788.20 Active Glenn Thornton MD Retention of urine, unspecified NEUROGENIC BLADDER 596.54 Active Glenn Thornton MD Neurogenic bladder NOS HYPERLIPIDEMIA 272.4 Active Glenn Thornton MD Other and unspecified hyperlipidemia INCOMPLETE BLADDER EMPTYING 788.21 Active Glenn Thornton MD Incomplete bladder emptying G E R D 530.81 Active Muna Sami Esophageal reflux Diabetes-Type 2 250.00 Active Pelon Quach MD Diabetes mellitus without mention of complication, type II or unspecified type, not stated as uncontrolled Bipolar disorder 296.80 Active Pelon Quach MD Bipolar disorder, unspecified Blister, foot/toe w/o infection 917.2 Active Taty Alvarado MD PhD Blister of foot and toe(s), without mention of infection Accidental fall E888.9 Active Pelon Quach MD Unspecified fall Medication List Medication Instructions Start Date Stop Date Generic Name NDC Status Provider Patient Instruction TYLENOL 325 MG TAB 1-2 pills by mouth every 6 hours if needed for pain/fever ACETAMINOPHEN 83485698727 Active Pelon Quach MD Active LANTUS 100 UNIT/ML SC SOLN 18 SUBQ AT HS INSULIN GLARGINE 30867334757 Active Pelon Quach MD Active ZOFRAN 4 MG TABS 1 po q6hr PRN Nausea ONDANSETRON HCL 58936726037 Active Pelon Quach MD Active TEGRETOL 200 MG TABS by mouth twice a day CARBAMAZEPINE 54276753507 Active Taty Alvarado MD PhD Active NOVOLOG 100 UNIT/ML SC SOLN 7 UNITS BEFORE SUPPER INSULIN ASPART 39112842651 Active Marianela Juarez Active NOVOLOG 100 UNIT/ML SC SOLN 7 UNITS BID BEFORE BREAKFAST AND LUNCH INSULIN ASPART 64662936040 Active Marianelachandrika Juarez Active FLOMAX 0.4 MG CAPS 1 Daily TAMSULOSIN HCL 70125479627 Active Marianelachandrika Juarez Active INVEGA 6 MG ORAL QX65R-QNR 1 TAB ONCE DAILY PALIPERIDONE 05059432933 Active Marianelachandrika Juarez Active DILANTIN 100 MG CAPS Take one by mouth daily PHENYTOIN SODIUM EXTENDED 72502771243 No Longer Active Marianelachandrika Juarez Active DEPAKOTE SPRINKLES 125 MG CPSP 4 capsules by mouth twice daily DIVALPROEX SODIUM 69724161960 No Longer Active Marianelachandrika Shankarida Active LAMICTAL 200 MG ORAL TABS 1 BY MOUTH TWICE A DAY LAMOTRIGINE 89916195394 Active Marianelachandrika Shankarida Active LAMICTAL 100 MG TABS by mouth twice a day LAMOTRIGINE 53997142774 No Longer Active Marianelachandrika Shankarida Active LAMICTAL 150 MG TABS by mouth twice a day LAMOTRIGINE 77866531111 No Longer Active Marianelachandrika Shankarida Active DILANTIN 100 MG CAPS Take three by mouth daily PHENYTOIN SODIUM EXTENDED 11233746723 No Longer Active Marianelachandrika Shankarida Active SENOKOT 8.6 MG TABS take at bedtime [facility] 19946575255 Active Glenn Thornton MD Active LIPITOR 20 MG TABS take at bedtime ATORVASTATIN CALCIUM 88771833791 Active Glenn Thornton MD Active LISINOPRIL 2.5 MG TABS Take one by mouth daily LISINOPRIL 36475441110 Active Glenn Thornton MD Active TRENTAL 400 MG CR-TABS by mouth twice a day PENTOXIFYLLINE 30166293867 Active Glenn Thornton MD Active LAMICTAL 25 MG TABS by mouth twice a day LAMOTRIGINE 72141424365 Active Glenn Thornton MD Active BUSPIRONE HCL 10 MG TABS by mouth twice a day BUSPIRONE HCL 67204922086 Active Glenn Thornton MD Active FUROSEMIDE 40 MG TABS Take one by mouth daily FUROSEMIDE 54275027200 Active Glenn Thornton MD Active KLOR-CON 10 10 MEQ CR-TABS Take one by mouth daily POTASSIUM CHLORIDE 45648637850 Active Glenn Thornton MD Active ADULT ASPIRIN EC LOW STRENGTH 81 MG TBEC Take one by mouth daily ASPIRIN 52753473769 Active Glenn Thornton MD Active DILANTIN 100 MG CAPS Take three by mouth daily DILANTIN 100 MG CAPS 692215 PHENYTOIN SODIUM EXTENDED Inactive LAMICTAL 150 MG TABS by mouth twice a day LAMICTAL 150 MG TABS 19831025 LAMOTRIGINE Inactive LAMICTAL 100 MG TABS by mouth twice a day LAMICTAL 100 MG TABS 19831024 LAMOTRIGINE Inactive DEPAKOTE SPRINKLES 125 MG CPSP 4 capsules by mouth twice daily DEPAKOTE SPRINKLES 125 MG CPSP 6617929 DIVALPROEX SODIUM Inactive DILANTIN 100 MG CAPS Take one by mouth daily DILANTIN 100 MG CAPS 068557 PHENYTOIN SODIUM EXTENDED Inactive Advance Directives Directive Description Start Date DURABLE POWER OF PLANNING SUPERVISOR FOR HEALTHCARE PERMISSION TO SHARE Vital Signs Date Name Value Unit Range Description blood pressure, diastolic - 8462-4 68 mm[Hg] BP daly blood pressure, systolic - 8480-6 123 mm[Hg] BP sys pulse rate E&M - 8867-4 88 /min Heart rate temperature E&M 97.7 [degF] Body temperature weight E&M - 3141-9 163 [lb_av] Weight Measured blood pressure, diastolic - 8462-4 72 mm[Hg] BP daly blood pressure, systolic - 8480-6 146 mm[Hg] BP sys pulse rate E&M - 8867-4 87 /min Heart rate temperature E&M 97.7 [degF] Body temperature weight E&M - 3141-9 164 [lb_av] Weight Measured blood pressure, diastolic - 8462-4 79 mm[Hg] BP daly blood pressure, systolic - 8480-6 145 mm[Hg] BP sys pulse rate E&M - 8867-4 88 /min Heart rate temperature E&M 97.8 [degF] Body temperature weight E&M - 3141-9 164 [lb_av] Weight Measured blood pressure, diastolic - 8462-4 67 mm[Hg] BP daly blood pressure, systolic - 8480-6 137 mm[Hg] BP sys pulse rate E&M - 8867-4 89 /min Heart rate temperature E&M 97.7 [degF] Body temperature weight E&M - 3141-9 160.9 [lb_av] Weight Measured blood pressure, diastolic - 8462-4 68 mm[Hg] BP daly blood pressure, systolic - 8480-6 135 mm[Hg] BP sys pulse rate E&M - 8867-4 85 /min Heart rate temperature E&M 97.3 [degF] Body temperature weight E&M - 3141-9 162 [lb_av] Weight Measured Diagnostic Results Date Name Value Unit Range Description Chart Maintenance: Outside labs entered on flowsheet - Chemistry hemoglobin A1C, blood, as % of total hemoglobin 6.6 % cholesterol, serum 226 mg/dL HDL cholesterol, serum 113 mg/dL LDL cholesterol, serum 108.4 mg/dL triglyceride, serum, fasting 33 mg/dL Office Visit: 3 MONTH FU - Chemistry cholesterol, target level 200 mg/dL LDL target level 100 mg/dL HDL cholesterol, serum, target level 40 mg/dL triglyceride, target level 150 mg/dL Office Visit: FU/FALL - Chemistry cholesterol, target level 200 mg/dL triglyceride, target level 200 mg/dL HDL cholesterol, serum, target level 35 mg/dL LDL target level 100 mg/dL Office Visit: GET EST - Chemistry cholesterol, target level 200 mg/dL triglyceride, target level 200 mg/dL HDL cholesterol, serum, target level 35 mg/dL LDL target level 100 mg/dL home glucose monitor utilized Yes Encounters Code Encounter Date Provider Facility CPT-28001 Level 4 Est. Patient 17:13:06 CDT Pelon Quach MD [facility] CPT-96362 Level 4 Est. Patient 18:47:47 CDT Pelon Quach MD [facility] CPT-15141 Level 3 Est. Patient 21:01:27 CDT Pelon Quach MD [facility] CPT-37173 Level 3 Est. Patient 14:07:03 CDT Taty Alvarado MD PhD [facility] CPT-74407 Level 3 New Patient 21:39:52 SHIFT LAB TECHNICIAN Pelon Quach MD [facility] CPT-58593 Level 3 Est. Patient 14:28:44 CDT Glenn Thornton MD [facility] CPT-86987 Level 3 Est. Patient 16:35:00 CDT Glenn Thornton MD [facility] CPT-09301 Level 4 New Patient 17:06:27 CDT Glenn Thornton MD [facility] Procedures Code Procedure Name Date Entry Date Standard Description CPT-12843 Cystoscopy 14:28:44 CDT CPT-21563 Bladder Scan 14:28:44 CDT CPT-49744 Indwelling Cath Change 17:06:27 CDT CPT-93395 Cystoscopy 17:06:27 CDT
--- OUTSIDE RECORDS SUMMARY | 2018-06-22 11:36 | XMS REPORT | Clinical Summary ---
Author Author Admin, ONESIMO Organization [facility] [employer] [place] Address Unknown Phone Unavailable Allergies, Adverse Reactions, [...] (nonthermal), right great toe, sequela 906.2 Resolved Pelno Quach MD Late effect of superficial injury [...] as needed for muscle spasm/pain CYCLOBENZAPRINE HCL 37842549245 Active Pelon Quach MD Active BENADRYL 25 MG ORAL CAPSULE 1 po q8hr PRN Congestion DIPHENHYDRAMINE HCL 46607932475 Active Pelon Quach MD Active ZOFRAN 4 MG ORAL TABLET 1 po q6hr PRN Nausea ONDANSETRON HCL 07210960918 Active Pelon Quach MD Active IMODIUM A-D 2 MG ORAL TABLET One QID prn diarrhea. No more than 4 tabs daily LOPERAMIDE HCL 09527178298 Active Pelon Quach MD Active TYLENOL 325 MG ORAL TABLET 2 tabs po prn for pain elevated temp ACETAMINOPHEN 08001149699 Active Pelon Quach MD Active MUCINEX D 60-600 MG ORAL TABLET EXTENDED RELEASE 12 HOUR 1 po BID PRN Congestion PSEUDOEPHEDRINE-GUAIFENESIN 69320666439 Active Pelon Quach MD Active IBUPROFEN 200 MG ORAL TABLET q 6hrs prn pain IBUPROFEN 54375861563 Active Pelon Quach MD Active LORATADINE 10 MG ORAL TABLET 1 tablet by mouth daily prn LORATADINE 13403732528 Active Pelon Quach MD Active BANOPHEN 25 MG ORAL TABLET 1 po every 6 hours PRN allergic reaction DIPHENHYDRAMINE HCL 52722879213 No Longer Active Pelon Quach MD Active EASY TOUCH ALCOHOL PREP MEDIUM 70 % PAD Use with each finger stick and insulin admin Dx: E11.9 ALCOHOL SWABS 60108424631 Active Jaycee Torrez APRN Active HUMALOG KWIKPEN 100 UNIT/ML SUBCUTANEOUS SOLUTION PEN-INJECTOR inject 10 units subcutaneously before meals also sliding scale INSULIN LISPRO 90601551535 Active Pelon Quach MD Active NOVOLOG 100 UNIT/ML SUBCUTANEOUS SOLUTION 10 UNITS BID BEFORE BREAKFAST AND LUNCH INSULIN ASPART 69474043955 No Longer Active NICOLETTE Hitchcock Active NOVOLOG 100 UNIT/ML SUBCUTANEOUS SOLUTION 10 UNITS BEFORE SUPPER INSULIN ASPART 09965705328 No Longer Active NICOLETTE Hitchcock Active INVEGA 6 MG ORAL TABLET EXTENDED RELEASE 24 HOUR 1 po daily for schizophrenia PALIPERIDONE 68239703183 Active Pelon Quach MD Active LAMICTAL 25 MG ORAL TABLET 2 tabs by mouth twice a day LAMOTRIGINE 78859196362 No Longer Active Pelon Quach MD Active BACTROBAN 2 % EXTERNAL OINTMENT Apply to affected area BID 06/28 MUPIROCIN 15859465830 No Longer Active Pelon Quach MD Active INVEGA 6 MG ORAL TABLET EXTENDED RELEASE 24 HOUR 1 po daily for Schizophrenia PALIPERIDONE 46896985620 No Longer Active Pelon Quach MD Active TYLENOL 8 HOUR 650 MG ORAL TABLET EXTENDED RELEASE Take 1 tab po up to 3 times daily as needed ACETAMINOPHEN 92744453625 No Longer Active Pelon Quach MD Active IPRATROPIUM-ALBUTEROL 0.5-2.5 (3) MG/3ML INHALATION SOLUTION 1 neb treatment QID for cough Dx: J06.9 IPRATROPIUM-ALBUTEROL 03936923871 No Longer Active Pelon Quach MD Active BACTRIM DS 800-160 MG ORAL TABLET 1 tab by mouth twice daily 2016 TRIMETHOPRIM-SULFAMETHOXAZOLE 28363680962 No Longer Active Pelon Quach MD Active BACTRIM DS 800-160 MG ORAL TABLET 1 twice a day SULFAMETHOXAZOLE-TRIMETHOPRIM 62547952261 No Longer Active Pelon Quach MD Active IPRATROPIUM-ALBUTEROL 0.5-2.5 (3) MG/3ML INHALATION SOLUTION 1 neb treatment four times daily, for cough IPRATROPIUM-ALBUTEROL 90795320222 No Longer Active Jaycee Torrez APRN Active FUROSEMIDE 40 MG ORAL TABLET Take one by mouth daily FUROSEMIDE 45552820265 No Longer Active Jaycee Torrez APRN Active LANTUS 100 UNIT/ML SUBCUTANEOUS SOLUTION 20 SUBQ AT HS INSULIN GLARGINE 73384494847 Active Pelon Quach MD Active LAMICTAL 25 MG ORAL TABLET 2 tabs po BID for convulsions LAMOTRIGINE 01024600977 Active Jaycee Torrez APRN Active LASIX 20 MG ORAL TABLET 1 tablet by mouth every morning for edema FUROSEMIDE 52144138249 Active Jaycee Torrez APRN Active BUSPIRONE HCL 10 MG ORAL TABLET 1 tab by mouth BID BUSPIRONE HCL 69370688856 Active Jaycee Torrez APRN Active ADULT ASPIRIN EC LOW STRENGTH 81 MG ORAL TABLET DELAYED RELEASE Take one by mouth daily ASPIRIN 43986003623 No Longer Active Pelon Quach MD Active ASPIRIN 81 MG ORAL TABLET 1 po qd ASPIRIN 43566511005 Active Pelon Quach MD Active ZOFRAN 4 MG ORAL TABLET 1 po q6hr PRN Nausea ONDANSETRON HCL 89833448798 No Longer Active Pelon Quach MD Active TYLENOL 325 MG ORAL TABLET 1-2 pills by mouth every 6 hours if needed for pain /fever ACETAMINOPHEN 12201738455 No Longer Active Pelon Quach MD Active INVEGA 6 MG ORAL TABLET EXTENDED RELEASE 24 HOUR 1 TAB ONCE DAILY PALIPERIDONE 39021820594 No Longer Active Carly Suggs Active TEGRETOL 200 MG ORAL TABLET by mouth twice a day CARBAMAZEPINE 64291394036 Active Taty Alvarado MD PhD Active FLOMAX 0.4 MG ORAL CAPSULE 1 Daily TAMSULOSIN HCL 57264275993 Active Marianela Juarez Active DILANTIN 100 MG ORAL CAPSULE Take one by mouth daily PHENYTOIN SODIUM EXTENDED 28190869269 No Longer Active Marianela Juarez Active DEPAKOTE SPRINKLES 125 MG ORAL CAPSULE DELAYED RELEASE SPRINKLE 4 capsules by mouth twice daily DIVALPROEX SODIUM 07628709612 No Longer Active Marianelachandrika Juarez Active LAMICTAL 200 MG ORAL TABLET 1 BY MOUTH TWICE A DAY LAMOTRIGINE 12981802917 Active Marianela Raida Active LAMICTAL 100 MG ORAL TABLET by mouth twice a day LAMOTRIGINE 42911148843 No Longer Active Marianela Raida Active LAMICTAL 150 MG ORAL TABLET by mouth twice a day LAMOTRIGINE 78368703784 No Longer Active Marianelachandrika Juarez Active DILANTIN 100 MG ORAL CAPSULE Take three by mouth daily PHENYTOIN SODIUM EXTENDED 18467855894 No Longer Active Marianela Juarez Active SENOKOT 8.6 MG ORAL TABLET take at bedtime [facility] 94425851071 Active Pelon Quach MD Active LIPITOR 20 MG ORAL TABLET take at bedtime ATORVASTATIN CALCIUM 50329593115 Active Glenn Thornton MD Active LISINOPRIL 2.5 MG ORAL TABLET Take one by mouth daily LISINOPRIL 05140906830 Active Glenn Thornton MD Active TRENTAL 400 MG CR-TABS by mouth twice a day PENTOXIFYLLINE 21685797429 Active Glenn Thornton MD Active KLOR-CON 10 10 MEQ ORAL TABLET EXTENDED RELEASE Take one by mouth daily POTASSIUM CHLORIDE 70633679750 Active Glenn Thornotn MD Active DILANTIN 100 MG ORAL CAPSULE Take three by mouth daily DILANTIN 100 MG ORAL CAPSULE 491143 PHENYTOIN SODIUM EXTENDED Inactive LAMICTAL 150 MG ORAL TABLET by mouth twice a day LAMICTAL 150 MG ORAL TABLET 083749 LAMOTRIGINE Inactive LAMICTAL 100 MG ORAL TABLET by mouth twice a day LAMICTAL 100 MG ORAL TABLET 275969 LAMOTRIGINE Inactive DEPAKOTE SPRINKLES 125 MG ORAL CAPSULE DELAYED RELEASE SPRINKLE 4 capsules by mouth twice daily DEPAKOTE SPRINKLES 125 MG ORAL CAPSULE DELAYED RELEASE SPRINKLE 3198700 DIVALPROEX SODIUM Inactive DILANTIN 100 MG ORAL CAPSULE Take one by mouth daily DILANTIN 100 MG ORAL CAPSULE 842364 PHENYTOIN SODIUM EXTENDED Inactive INVEGA 6 MG ORAL TABLET EXTENDED RELEASE 24 HOUR 1 TAB ONCE DAILY INVEGA 6 MG ORAL TABLET EXTENDED RELEASE 24 HOUR PALIPERIDONE Inactive TYLENOL 325 MG ORAL TABLET 1-2 pills by mouth every 6 hours if needed for pain /fever TYLENOL 325 MG ORAL TABLET 213714 ACETAMINOPHEN Inactive ZOFRAN 4 MG ORAL TABLET 1 po q6hr PRN Nausea ZOFRAN 4 MG ORAL TABLET 492295 ONDANSETRON HCL Inactive ADULT ASPIRIN EC LOW STRENGTH 81 MG ORAL TABLET DELAYED RELEASE Take one by mouth daily ADULT ASPIRIN EC LOW STRENGTH 81 MG ORAL TABLET DELAYED RELEASE 340926 ASPIRIN Inactive FUROSEMIDE 40 MG ORAL TABLET Take one by mouth daily FUROSEMIDE 40 MG ORAL TABLET 772200 FUROSEMIDE Inactive BACTRIM DS 800-160 MG ORAL TABLET 1 twice a day BACTRIM DS 800-160 MG ORAL TABLET 19821119 SULFAMETHOXAZOLE-TRIMETHOPRIM Inactive IPRATROPIUM-ALBUTEROL 0.5-2.5 (3) MG/3ML INHALATION SOLUTION 1 neb treatment QID for cough Dx: J06.9 IPRATROPIUM-ALBUTEROL 0.5-2.5 ( 3) MG/3ML INHALATION SOLUTION 3607656 IPRATROPIUM-ALBUTEROL Inactive TYLENOL 8 HOUR 650 MG [...] a day LAMICTAL 25 MG ORAL TABLET 288077 LAMOTRIGINE Inactive NOVOLOG 100 UNIT/ML SUBCUTANEOUS SOLUTION 10 UNITS BEFORE SUPPER NOVOLOG 100 UNIT/ML SUBCUTANEOUS SOLUTION INSULIN ASPART Inactive NOVOLOG 100 UNIT/ML SUBCUTANEOUS SOLUTION 10 UNITS BID BEFORE BREAKFAST AND LUNCH NOVOLOG 100 UNIT/ML SUBCUTANEOUS SOLUTION INSULIN ASPART Inactive BANOPHEN 25 MG ORAL TABLET 1 po every 6 hours PRN allergic reaction BANOPHEN 25 MG ORAL TABLET 6651872 DIPHENHYDRAMINE HCL Inactive IPRATROPIUM-ALBUTEROL 0.5-2.5 (3) MG/3ML INHALATION SOLUTION 1 neb treatment four times daily, for cough IPRATROPIUM-ALBUTEROL 0.5- 2.5 (3) MG/3ML INHALATION SOLUTION 8082872 IPRATROPIUM-ALBUTEROL Inactive BACTRIM DS 800-160 MG ORAL TABLET 1 tab by mouth twice daily 2016 BACTRIM DS 800-160 MG ORAL TABLET 19821119 TRIMETHOPRIM- SULFAMETHOXAZOLE Inactive Advance Directives Directive Description Start Date DURABLE POWER OF VENEER SUPERVISOR FOR HEALTHCARE PERMISSION TO SHARE ADVANCED DIRECTIVE [...] Panel - Chemistry sodium, serum 127 mmol/L 197-119 8983/07/28 potassium, serum 5.3 mmol/L 3.5-5.2 chloride, serum 92 mmol/L 98-107 carbon dioxide, venous blood 32.4 mmol/L 21.0-32.0 blood glucose 182 mg/dL 65-110 calcium, serum 9.4 mg/dL 8.5-10.1 urea nitrogen, blood 14 mg/dL 7-18 creatinine, serum 0.94 mg/dL 0.60-1.30 Lab Report: CBC, Comp. Metabolic Panel - Chemistry sodium, serum 129 mmol/L 755-687 0670/07/12 carbon dioxide, venous blood 27.8 mmol/L 21.0-32.0 [...] HGBA1C - Chemistry sodium, serum 123 mmol/L 582-135 1759/04/25 carbon dioxide, venous blood 26.2 mmol/L 21.0-32.0 [...] mg/dL Encounters Code Encounter Date Provider Facility CPT-95793 [id number] Vst-Est Level II 13:40:42 CDT Pelon Quach MD [facility] CPT-29150 [id number] Vst-Est Level III 13:36:24 CDT Pelon Quach MD [facility] CPT-45008 Level 4 Est. Patient 18:11:18 CDT Pelon Quach MD [facility] CPT-83134 Level 4 Est. Patient 14:46:38 CDT Pelon Quach MD [facility] CPT-87921 Level 4 Est. Patient 08:43:11 CDT Pelon Quach MD [facility] CPT-87625 Level 4 Est. Patient 14:27:30 CDT Pelon Quach MD [facility] CPT-84345 Level 3 Est. Patient 10:32:17 CDT Jaycee Torrez APRN [facility] CPT-31864 Level 3 Est. Patient 10:15:07 CDT Pelon Quach MD [facility] CPT-40161 Level 4 Est. Patient 09:30:54 CDT Pelon Quach MD [facility]-13231 Level 4 Est. Patient 14:34:25 CDT Pelon Quach MD [facility]-13181 Level 3 Est. Patient 11:51:35 [employer]CHNICIAN Rick Henson DO [facility]-06935 Level 3 Est. Patient 12:13:33 [employer] TECHNICIAN Erik Baptiste MD [facility]-29852 Level 3 Est. Patient 09:40:44 [employer] TECHNICIAN Jaycee Torrez [facility]-93716 Level 3 Est. Patient 09:36:32 [employer] TECHNICIAN Jaycee Torrez [facility] CPT-86286 Level 4 Est. Patient 16:57:02 [employer]PPL[employer] TECHNICIAN Pelon Quach MD [facility]-08661 Level 4 Est. Patient 22:19:34 CDT Pelon Quach MD [facility]-04252 Level 3 Est. Patient 00:34:41 CDT Pelon Quach MD [facility]-67256 Level 4 Est. Patient 11:19:14 CDT Pelon Quach MD [facility]-75065 Level 4 Est. Patient 16:43:30 [employer] TECHNICIAN Pelon Quach MD [facility]-65406 Level 4 Est. Patient 12:42:18 CDT Pelon Quach MD [facility] CPT-52084 Level 4 Est. Patient 11:52:20 CDT Pelon Quach MD [facility] CPT-75698 Level 4 Est. Patient 13:59:46 CDT Pelon Quach MD [facility] CPT-80542 Level 4 Est. Patient 15:10:48 CDT Pelon Quach MD [facility] CPT-95802 Level 4 Est. Patient 17:13:06 CDT Pelon Quach MD [facility] CPT-39894 Level 4 Est. Patient 18:47:47 CDT Pelon Quach MD [facility] CPT-21388 Level 3 Est. Patient 21:01:27 CDT Pelon Quach MD [facility] CPT-56282 Level 3 Est. Patient 14:07:03 CDT Taty Alvarado MD PhD [facility] CPT-04566 Level 3 New Patient 21:39:52 [employer] TECHNICIAN Pelon Quach MD [facility] CPT-44533 Level 3 Est. Patient 14:28:44 CDT Glenn Thornton MD [facility] CPT-78896 Level 3 Est. Patient 16:35:00 CDT Glenn Thornton MD [facility] CPT-75017 Level 4 New Patient 17:06:27 CDT Glenn Thornton MD [facility] [place] Procedures Code Procedure Name Date Entry Date Standard Description CPT-G0439 Subsequent Annual Wellness Exam 18:11:17 CDT CPT-G0438 Initial Annual Wellness Exam 09:30:54 CDT CPT-42866 Prevnar 13 Intramuscular Suspension 14:34:25 CDT 12/27 CPT-84922 Chest 2V Frontal and Lat - XRAY USE ONLY 11:56:13 [employer] TECHNICIAN CPT-32011 Cystoscopy 14:28:44 CDT CPT-96654 Bladder Scan 14:28:44 CDT CPT-71230 Indwelling Cath Change 17:06:27 CDT CPT-23487 Cystoscopy 17:06:27 CDT
--- OUTSIDE RECORDS SUMMARY | 2018-06-22 11:37 | XMS REPORT | Clinical Summary ---
Author Author Admin, ONESIMO Organization [facility] [employer] Address Unknown Phone Unavailable Allergies, Adverse Reactions, [...] as needed for muscle spasm/pain CYCLOBENZAPRINE HCL 05459646861 Active Pelon Quach MD Active BENADRYL 25 MG ORAL CAPSULE 1 po q8hr PRN Congestion DIPHENHYDRAMINE HCL 03668472149 Active Pelon Quach MD Active ZOFRAN 4 MG ORAL TABLET 1 po q6hr PRN Nausea ONDANSETRON HCL 89670426407 Active Pelon Quach MD Active IMODIUM A-D 2 MG ORAL TABLET One QID prn diarrhea. No more than 4 tabs daily LOPERAMIDE HCL 39476520399 Active Pelon Quach MD Active TYLENOL 325 MG ORAL TABLET 2 tabs po prn for pain elevated temp ACETAMINOPHEN 47732171897 Active Pelon Quach MD Active MUCINEX D 60-600 MG ORAL TABLET EXTENDED RELEASE 12 HOUR 1 po BID PRN Congestion PSEUDOEPHEDRINE-GUAIFENESIN 44627724888 Active Pelon Quach MD Active IBUPROFEN 200 MG ORAL TABLET q 6hrs prn pain IBUPROFEN 66468343630 Active Pelon Quach MD Active LORATADINE 10 MG ORAL TABLET 1 tablet by mouth daily prn LORATADINE 62735335071 Active Pelon Quach MD Active BANOPHEN 25 MG ORAL TABLET 1 po every 6 hours PRN allergic reaction DIPHENHYDRAMINE HCL 25679430939 No Longer Active Pelon Quach MD Active EASY TOUCH ALCOHOL PREP MEDIUM 70 % PAD Use with each finger stick and insulin admin Dx: E11.9 ALCOHOL SWABS 83286415725 Active Jaycee Torrez APRN Active HUMALOG KWIKPEN 100 UNIT/ML SUBCUTANEOUS SOLUTION PEN-INJECTOR inject 10 units subcutaneously before meals also sliding scale INSULIN LISPRO 75911486927 Active Pelon Quach MD Active NOVOLOG 100 UNIT/ML SUBCUTANEOUS SOLUTION 10 UNITS BID BEFORE BREAKFAST AND LUNCH INSULIN ASPART 57255158796 No Longer Active NICOLETTE Hitchcock Active NOVOLOG 100 UNIT/ML SUBCUTANEOUS SOLUTION 10 UNITS BEFORE SUPPER INSULIN ASPART 37453181933 No Longer Active NICOLETTE Hitchcock Active INVEGA 6 MG ORAL TABLET EXTENDED RELEASE 24 HOUR 1 po daily for schizophrenia PALIPERIDONE 94444457061 Active Pelon Quach MD Active LAMICTAL 25 MG ORAL TABLET 2 tabs by mouth twice a day LAMOTRIGINE 12557205365 No Longer Active Pelon Quach MD Active BACTROBAN 2 % EXTERNAL OINTMENT Apply to affected area BID 06/28 MUPIROCIN 45451964918 No Longer Active Pelon Quach MD Active INVEGA 6 MG ORAL TABLET EXTENDED RELEASE 24 HOUR 1 po daily for Schizophrenia PALIPERIDONE 73212441109 No Longer Active Pelon Quach MD Active TYLENOL 8 HOUR 650 MG ORAL TABLET EXTENDED RELEASE Take 1 tab po up to 3 times daily as needed ACETAMINOPHEN 75157943008 No Longer Active Pelon Quach MD Active IPRATROPIUM-ALBUTEROL 0.5-2.5 (3) MG/3ML INHALATION SOLUTION 1 neb treatment QID for cough Dx: J06.9 IPRATROPIUM-ALBUTEROL 81744892751 No Longer Active Pelon Quach MD Active BACTRIM DS 800-160 MG ORAL TABLET 1 tab by mouth twice daily 2016 TRIMETHOPRIM-SULFAMETHOXAZOLE 52658166488 No Longer Active Pelon Quach MD Active BACTRIM DS 800-160 MG ORAL TABLET 1 twice a day SULFAMETHOXAZOLE-TRIMETHOPRIM 23251188240 No Longer Active Pelon Quach MD Active IPRATROPIUM-ALBUTEROL 0.5-2.5 (3) MG/3ML INHALATION SOLUTION 1 neb treatment four times daily, for cough IPRATROPIUM-ALBUTEROL 72565832108 No Longer Active Jaycee Torrez APRN Active FUROSEMIDE 40 MG ORAL TABLET Take one by mouth daily FUROSEMIDE 15362283167 No Longer Active Jaycee Torrez APRN Active LANTUS 100 UNIT/ML SUBCUTANEOUS SOLUTION 20 SUBQ AT HS INSULIN GLARGINE 07995832844 Active Pelon Quach MD Active LAMICTAL 25 MG ORAL TABLET 2 tabs po BID for convulsions LAMOTRIGINE 29971756960 Active Jaycee Torrez APRN Active LASIX 20 MG ORAL TABLET 1 tablet by mouth every morning for edema FUROSEMIDE 20723520717 Active Jaycee Torrez APRN Active BUSPIRONE HCL 10 MG ORAL TABLET 1 tab by mouth BID BUSPIRONE HCL 46528977761 Active Jaycee Torrez APRN Active ADULT ASPIRIN EC LOW STRENGTH 81 MG ORAL TABLET DELAYED RELEASE Take one by mouth daily ASPIRIN 68916852163 No Longer Active Pelon Quach MD Active ASPIRIN 81 MG ORAL TABLET 1 po qd ASPIRIN 05173829344 Active Pelon Quach MD Active ZOFRAN 4 MG ORAL TABLET 1 po q6hr PRN Nausea ONDANSETRON HCL 91397255488 No Longer Active Pelon Quach MD Active TYLENOL 325 MG ORAL TABLET 1-2 pills by mouth every 6 hours if needed for pain /fever ACETAMINOPHEN 34769285720 No Longer Active Pelon Quach MD Active INVEGA 6 MG ORAL TABLET EXTENDED RELEASE 24 HOUR 1 TAB ONCE DAILY PALIPERIDONE 81871713296 No Longer Active Carly Suggs Active TEGRETOL 200 MG ORAL TABLET by mouth twice a day CARBAMAZEPINE 88168252855 Active Taty Alvarado MD PhD Active FLOMAX 0.4 MG ORAL CAPSULE 1 Daily TAMSULOSIN HCL 61079351122 Active Marianela Juarez Active DILANTIN 100 MG ORAL CAPSULE Take one by mouth daily PHENYTOIN SODIUM EXTENDED 35374656503 No Longer Active Marianela Juarez Active DEPAKOTE SPRINKLES 125 MG ORAL CAPSULE DELAYED RELEASE SPRINKLE 4 capsules by mouth twice daily DIVALPROEX SODIUM 26512920082 No Longer Active Marianelachandrika Juarez Active LAMICTAL 200 MG ORAL TABLET 1 BY MOUTH TWICE A DAY LAMOTRIGINE 93740383186 Active Marianela Raida Active LAMICTAL 100 MG ORAL TABLET by mouth twice a day LAMOTRIGINE 17521459730 No Longer Active Marianela Raida Active LAMICTAL 150 MG ORAL TABLET by mouth twice a day LAMOTRIGINE 62256925120 No Longer Active Marianelachandrika Juarez Active DILANTIN 100 MG ORAL CAPSULE Take three by mouth daily PHENYTOIN SODIUM EXTENDED 27505234177 No Longer Active Marianela Juarez Active SENOKOT 8.6 MG ORAL TABLET take at bedtime [facility] 76794917954 Active Pelon Quach MD Active LIPITOR 20 MG ORAL TABLET take at bedtime ATORVASTATIN CALCIUM 96613212978 Active Glenn Thornton MD Active LISINOPRIL 2.5 MG ORAL TABLET Take one by mouth daily LISINOPRIL 31274823544 Active Glenn Thornton MD Active TRENTAL 400 MG CR-TABS by mouth twice a day PENTOXIFYLLINE 51638169697 Active Glenn Thornton MD Active KLOR-CON 10 10 MEQ ORAL TABLET EXTENDED RELEASE Take one by mouth daily POTASSIUM CHLORIDE 04772417949 Active Glenn Thornton MD Active DILANTIN 100 MG ORAL CAPSULE Take three by mouth daily DILANTIN 100 MG ORAL CAPSULE 890286 PHENYTOIN SODIUM EXTENDED Inactive LAMICTAL 150 MG ORAL TABLET by mouth twice a day LAMICTAL 150 MG ORAL TABLET 639978 LAMOTRIGINE Inactive LAMICTAL 100 MG ORAL TABLET by mouth twice a day LAMICTAL 100 MG ORAL TABLET 757690 LAMOTRIGINE Inactive DEPAKOTE SPRINKLES 125 MG ORAL CAPSULE DELAYED RELEASE SPRINKLE 4 capsules by mouth twice daily DEPAKOTE SPRINKLES 125 MG ORAL CAPSULE DELAYED RELEASE SPRINKLE 2972721 DIVALPROEX SODIUM Inactive DILANTIN 100 MG ORAL CAPSULE Take one by mouth daily DILANTIN 100 MG ORAL CAPSULE 051485 PHENYTOIN SODIUM EXTENDED Inactive INVEGA 6 MG ORAL TABLET EXTENDED RELEASE 24 HOUR 1 TAB ONCE DAILY INVEGA 6 MG ORAL TABLET EXTENDED RELEASE 24 HOUR PALIPERIDONE Inactive TYLENOL 325 MG ORAL TABLET 1-2 pills by mouth every 6 hours if needed for pain /fever TYLENOL 325 MG ORAL TABLET 824634 ACETAMINOPHEN Inactive ZOFRAN 4 MG ORAL TABLET 1 po q6hr PRN Nausea ZOFRAN 4 MG ORAL TABLET 108487 ONDANSETRON HCL Inactive ADULT ASPIRIN EC LOW STRENGTH 81 MG ORAL TABLET DELAYED RELEASE Take one by mouth daily ADULT ASPIRIN EC LOW STRENGTH 81 MG ORAL TABLET DELAYED RELEASE 082830 ASPIRIN Inactive FUROSEMIDE 40 MG ORAL TABLET Take one by mouth daily FUROSEMIDE 40 MG ORAL TABLET 462321 FUROSEMIDE Inactive BACTRIM DS 800-160 MG ORAL TABLET 1 twice a day BACTRIM DS 800-160 MG ORAL TABLET 19821119 SULFAMETHOXAZOLE-TRIMETHOPRIM Inactive IPRATROPIUM-ALBUTEROL 0.5-2.5 (3) MG/3ML INHALATION SOLUTION 1 neb treatment QID for cough Dx: J06.9 IPRATROPIUM-ALBUTEROL 0.5-2.5 ( 3) MG/3ML INHALATION SOLUTION 7764058 IPRATROPIUM-ALBUTEROL Inactive TYLENOL 8 HOUR 650 MG [...] a day LAMICTAL 25 MG ORAL TABLET 833740 LAMOTRIGINE Inactive NOVOLOG 100 UNIT/ML SUBCUTANEOUS SOLUTION 10 UNITS BEFORE SUPPER NOVOLOG 100 UNIT/ML SUBCUTANEOUS SOLUTION INSULIN ASPART Inactive NOVOLOG 100 UNIT/ML SUBCUTANEOUS SOLUTION 10 UNITS BID BEFORE BREAKFAST AND LUNCH NOVOLOG 100 UNIT/ML SUBCUTANEOUS SOLUTION INSULIN ASPART Inactive BANOPHEN 25 MG ORAL TABLET 1 po every 6 hours PRN allergic reaction BANOPHEN 25 MG ORAL TABLET 4684444 DIPHENHYDRAMINE HCL Inactive IPRATROPIUM-ALBUTEROL 0.5-2.5 (3) MG/3ML INHALATION SOLUTION 1 neb treatment four times daily, for cough IPRATROPIUM-ALBUTEROL 0.5- 2.5 (3) MG/3ML INHALATION SOLUTION 2995063 IPRATROPIUM-ALBUTEROL Inactive BACTRIM DS 800-160 MG ORAL TABLET 1 tab by mouth twice daily 2016 BACTRIM DS 800-160 MG ORAL TABLET 19821119 TRIMETHOPRIM- SULFAMETHOXAZOLE Inactive Advance Directives Directive Description Start Date DURABLE POWER OF PHYSICAL SECURITY SPECIALIST FOR HEALTHCARE PERMISSION TO SHARE ADVANCED DIRECTIVE [...] Panel - Chemistry sodium, serum 127 mmol/L 850-313 8583/07/28 potassium, serum 5.3 mmol/L 3.5-5.2 chloride, serum 92 mmol/L 98-107 carbon dioxide, venous blood 32.4 mmol/L 21.0-32.0 blood glucose 182 mg/dL 65-110 calcium, serum 9.4 mg/dL 8.5-10.1 urea nitrogen, blood 14 mg/dL 7-18 creatinine, serum 0.94 mg/dL 0.60-1.30 Lab Report: CBC, Comp. Metabolic Panel - Chemistry sodium, serum 129 mmol/L 114-193 1469/07/12 carbon dioxide, venous blood 27.8 mmol/L 21.0-32.0 [...] HGBA1C - Chemistry sodium, serum 123 mmol/L 046-344 3755/04/25 carbon dioxide, venous blood 26.2 mmol/L 21.0-32.0 [...] mg/dL Encounters Code Encounter Date Provider Facility CPT-43636 [id number] Vst-Est Level II 13:40:42 CDT Pelon Quach MD [facility] CPT-50527 [id number] Vst-Est Level III 13:36:24 CDT Pelon Quach MD [facility] CPT-53005 Level 4 Est. Patient 18:11:18 CDT Pelon Quach MD [facility] CPT-68804 Level 4 Est. Patient 14:46:38 CDT Pelon Quach MD [facility] CPT-22316 Level 4 Est. Patient 08:43:11 CDT Pelon Quach MD [facility] CPT-63582 Level 4 Est. Patient 14:27:30 CDT Pelon Quach MD [facility] CPT-72991 Level 3 Est. Patient 10:32:17 CDT Jaycee Torrez APRN [facility] CPT-42031 Level 3 Est. Patient 10:15:07 CDT Pelon Quach MD [facility] CPT-77039 Level 4 Est. Patient 09:30:54 CDT Pelon Quach MD [facility]-80563 Level 4 Est. Patient 14:34:25 CDT Pelon Quach MD [facility]-32163 Level 3 Est. Patient 11:51:35 UTILITY TECHNICIAN Rick Henson DO [facility]-10204 Level 3 Est. Patient 12:13:33 UTILITY TECHNICIAN Erik Baptiste MD [facility]-25481 Level 3 Est. Patient 09:40:44 UTILITY TECHNICIAN Jaycee Torrez [facility]-12667 Level 3 Est. Patient 09:36:32 UTILITY TECHNICIAN Jaycee Torrez [facility] CPT-98376 Level 4 Est. Patient 16:57:02 UTILITY TECHNICIAN Pelon Quach MD [facility]-42888 Level 4 Est. Patient 22:19:34 CDT Pelon Quach MD [facility]-90792 Level 3 Est. Patient 00:34:41 CDT Pelon Quach MD [facility]-02685 Level 4 Est. Patient 11:19:14 CDT Pelon Quach MD [facility]-13495 Level 4 Est. Patient 16:43:30 UTILITY TECHNICIAN Pelon Quach MD [facility]-58749 Level 4 Est. Patient 12:42:18 CDT Pelon Quach MD [facility] CPT-27056 Level 4 Est. Patient 11:52:20 CDT Pelon Quach MD [facility] CPT-29859 Level 4 Est. Patient 13:59:46 CDT Pelon Quach MD [facility] CPT-86388 Level 4 Est. Patient 15:10:48 CDT Pelon Quach MD [facility] CPT-13046 Level 4 Est. Patient 17:13:06 CDT Pelon Quach MD [facility] CPT-13254 Level 4 Est. Patient 18:47:47 CDT Pelon Quach MD [facility] CPT-20270 Level 3 Est. Patient 21:01:27 CDT Pelon Quach MD [facility] CPT-13392 Level 3 Est. Patient 14:07:03 CDT Taty Alvarado MD PhD [facility] CPT-06824 Level 3 New Patient 21:39:52 UTILITY TECHNICIAN Pelon Quach MD [facility] CPT-28189 Level 3 Est. Patient 14:28:44 CDT Glenn Thornton MD [facility] CPT-81592 Level 3 Est. Patient 16:35:00 CDT Glenn Thornton MD [facility] CPT-94171 Level 4 New Patient 17:06:27 CDT Glenn Thornton MD [facility] [employer] Procedures Code Procedure Name Date Entry Date Standard Description CPT-G0439 Subsequent Annual Wellness Exam 18:11:17 CDT CPT-G0438 Initial Annual Wellness Exam 09:30:54 CDT CPT-92312 Prevnar 13 Intramuscular Suspension 14:34:25 CDT 12/27 CPT-80617 Chest 2V Frontal and Lat - XRAY USE ONLY 11:56:13 UTILITY TECHNICIAN CPT-18795 Cystoscopy 14:28:44 CDT CPT-67867 Bladder Scan 14:28:44 CDT CPT-25059 Indwelling Cath Change 17:06:27 CDT CPT-17318 Cystoscopy 17:06:27 CDT
--- OUTSIDE RECORDS SUMMARY | 2018-06-22 11:37 | XMS REPORT | Clinical Summary ---
Author Author Admin, ONESIMO Organization [facility] [email or web address] [place] Address Unknown Phone Unavailable Allergies, Adverse Reactions, Alerts Allergy Name Reaction Description Start Date Severity Status Provider No Known Allergies Carly Suggs Conditions or Problems Problem Name Problem Code [...] Muna Gallardo Esophageal reflux Diabetes-Type 2 250.00 Active Pelon [...] mellitus, type II, on insulin, uncontrolled 250.72 Active Pelon Quach MD Diabetes mellitus with peripheral circulatory disorders, type II or unspecified type, uncontrolled Post-op care V67.00 Active Pelon Quach MD Follow-up examination following surgery, unspecified Inguinal hernia, right 550.90 Active Pelon Quach MD Unilateral or unspecified inguinal hernia, without mention of obstruction or gangrene (not specified as recurrent) URI - acute 465.9 Resolved Erik Baptiste MD Acute upper respiratory infections of unspecified site URI - acute 465.9 Resolved Erik Baptiste MD Acute upper respiratory infections of unspecified site Cellulitis, leg, left 682.6 Active Erik Baptiste MD Cellulitis and abscess of leg, except foot Dyspnea 786.09 Active Rick Henson DO Other dyspnea and respiratory abnormality Preventive health care V70.0 Active Pelon Quach MD Routine general medical examination at a health care facility Atrial fibrillation 427.31 Active Pelon Quach MD Atrial fibrillation Diabetes mellitus, type II, on insulin 250.00 Active Pelon Quach MD Diabetes mellitus without mention of complication, type II or unspecified type, not stated as uncontrolled Schizophrenia 295.90 Active Pelon Quach MD Unspecified schizophrenia, unspecified state URI - acute ICD-465.9 Inactive Erik Baptiste MD URI - acute ICD-465.9 Inactive Erik Baptiste MD Medication List Medication Instructions Start Date Stop Date Generic Name NDC Status Provider Patient Instruction INVEGA 6 MG ORAL [id number] 1 po daily for Schizophrenia PALIPERIDONE 74252730780 No Longer Active Pelon Quach MD Active TYLENOL 8 HOUR 650 MG ORAL CR-TABS Take 1 tab po up to 3 times daily as needed ACETAMINOPHEN 00146492239 No Longer Active Pelon Quach MD Active IPRATROPIUM-ALBUTEROL 0.5-2.5 (3) MG/3ML INH SOLN 1 neb treatment QID for cough Dx: J06.9 IPRATROPIUM-ALBUTEROL 54942829384 No Longer Active Pelon Quach MD Active BACTRIM DS 800-160 MG TAB 1 tab by mouth twice daily TRIMETHOPRIM-SULFAMETHOXAZOLE 29252541849 No Longer Active Pelon Quach MD Active BACTROBAN 2 % OINTMENT Apply to affected area BID MUPIROCIN 87075922202 Active Jaycee Garcia APRN Active BACTRIM DS 800-160 MG TABS 1 twice a day SULFAMETHOXAZOLE-TRIMETHOPRIM 30300655112 No Longer Active Pelon Quach MD Active IPRATROPIUM-ALBUTEROL 0.5-2.5 (3) MG/3ML SOLN 1 neb treatment four times daily , for cough IPRATROPIUM-ALBUTEROL 18150162804 No Longer Active Jaycee Garcia APRN Active FUROSEMIDE 40 MG TABS Take one by mouth daily FUROSEMIDE 51680047516 No Longer Active Jaycee Garcia APRN Active LANTUS 100 UNIT/ML SC SOLN 20 SUBQ AT HS INSULIN GLARGINE 04451263190 Active Jaycee Garcia APRN Active LAMICTAL 25 MG ORAL TABS 2 tabs po BID for convulsions LAMOTRIGINE 52285092580 Active Jaycee Garcia APRN Active LASIX 20 MG TAB 1 tablet by mouth every morning for edema FUROSEMIDE 89074471524 Active Jaycee Garcia APRN Active BUSPIRONE HCL 10 MG TABS 1 tab by mouth BID BUSPIRONE HCL 10901140120 Active Jaycee Jose PROGRAM PROPOSALS COORDINATOR Active NOVOLOG 100 UNIT/ML SC SOLN 10 UNITS BEFORE SUPPER INSULIN ASPART 19923029977 Active Jaycee Garcia PROGRAM PROPOSALS COORDINATOR Active NOVOLOG 100 UNIT/ML SC SOLN 10 UNITS BID BEFORE BREAKFAST AND LUNCH INSULIN ASPART 48111971925 Active Jaycee Garcia PROGRAM PROPOSALS COORDINATOR Active LAMICTAL 25 MG TABS 2 tabs by mouth twice a day LAMOTRIGINE 20325413257 Active Pelon Quach MD Active ADULT ASPIRIN EC LOW STRENGTH 81 MG TBEC Take one by mouth daily ASPIRIN 68591843541 No Longer Active Pelon Quach MD Active ASPIRIN 81 MG ORAL TABS 1 po qd ASPIRIN 08970603685 Active Pelon Quach MD Active ZOFRAN 4 MG TABS 1 po q6hr PRN Nausea ONDANSETRON HCL 91466954404 No Longer Active Pelon Quach MD Active TYLENOL 325 MG TAB 1-2 pills by mouth every 6 hours if needed for pain/fever ACETAMINOPHEN 74227841195 No Longer Active Pelon Quach MD Active INVEGA 6 MG ORAL [id number] 1 TAB ONCE DAILY PALIPERIDONE 07023462079 No Longer Active Carly Suggs Active TEGRETOL 200 MG TABS by mouth twice a day CARBAMAZEPINE 62655870938 Active Taty Alvarado MD PhD Active FLOMAX 0.4 MG CAPS 1 Daily TAMSULOSIN HCL 83005316701 Active Marianelachandrika Juarez Active DILANTIN 100 MG CAPS Take one by mouth daily PHENYTOIN SODIUM EXTENDED 80371168257 No Longer Active Marianelachandrika Juarez Active DEPAKOTE SPRINKLES 125 MG CPSP 4 capsules by mouth twice daily DIVALPROEX SODIUM 67155429438 No Longer Active Marianelachandrika Juarez Active LAMICTAL 200 MG ORAL TABS 1 BY MOUTH TWICE A DAY LAMOTRIGINE 54199336158 Active Marianelachandrika Juarez Active LAMICTAL 100 MG TABS by mouth twice a day LAMOTRIGINE 98420722831 No Longer Active Marianelachandrika Juarez Active LAMICTAL 150 MG TABS by mouth twice a day LAMOTRIGINE 11526053243 No Longer Active Marianelachandrika Juarez Active DILANTIN 100 MG CAPS Take three by mouth daily PHENYTOIN SODIUM EXTENDED 10127867408 No Longer Active Marianelachandrika Juarez Active SENOKOT 8.6 MG TABS take at bedtime SENNOSIDES 80569690540 Active Glenn Thornton MD Active LIPITOR 20 MG TABS take at bedtime ATORVASTATIN CALCIUM 95984928434 Active Glenn Thornton MD Active LISINOPRIL 2.5 MG TABS Take one by mouth daily LISINOPRIL 02055946200 Active Glenn Thornton MD Active TRENTAL 400 MG CR-TABS by mouth twice a day PENTOXIFYLLINE 26454684860 Active Glenn Thornton MD Active KLOR-CON 10 10 MEQ CR-TABS Take one by mouth daily POTASSIUM CHLORIDE 14581262935 Active Glenn Thornton MD Active DILANTIN 100 MG CAPS Take three by mouth daily DILANTIN 100 MG CAPS 816781 PHENYTOIN SODIUM EXTENDED Inactive LAMICTAL 150 MG TABS by mouth twice a day LAMICTAL 150 MG TABS 541201 LAMOTRIGINE Inactive LAMICTAL 100 MG TABS by mouth twice a day LAMICTAL 100 MG TABS 028095 LAMOTRIGINE Inactive DEPAKOTE SPRINKLES 125 MG CPSP 4 capsules by mouth twice daily DEPAKOTE SPRINKLES 125 MG CPSP 7104433 DIVALPROEX SODIUM Inactive DILANTIN 100 MG CAPS Take one by mouth daily DILANTIN 100 MG CAPS 450797 PHENYTOIN SODIUM EXTENDED Inactive INVEGA 6 MG ORAL [id number] 1 TAB ONCE DAILY INVEGA 6 MG ORAL [id number] PALIPERIDONE Inactive TYLENOL 325 MG TAB 1-2 pills by mouth every 6 hours if needed for pain/fever TYLENOL 325 MG TAB 603752 ACETAMINOPHEN Inactive ZOFRAN 4 MG TABS 1 po q6hr PRN Nausea ZOFRAN 4 MG TABS 606270 ONDANSETRON HCL Inactive ADULT ASPIRIN EC LOW STRENGTH 81 MG TBEC Take one by mouth daily ADULT ASPIRIN EC LOW STRENGTH 81 MG TBEC 388595 ASPIRIN Inactive FUROSEMIDE 40 MG TABS Take one by mouth daily FUROSEMIDE 40 MG TABS 472561 FUROSEMIDE Inactive BACTRIM DS 800-160 MG TABS 1 twice a day BACTRIM DS 800-160 MG TABS 19821119 SULFAMETHOXAZOLE-TRIMETHOPRIM Inactive IPRATROPIUM-ALBUTEROL 0.5-2.5 (3) MG/3ML INH SOLN 1 neb treatment QID for cough Dx: J06.9 IPRATROPIUM-ALBUTEROL 0.5-2.5 (3) MG/ 3ML INH SOLN 3734083 IPRATROPIUM-ALBUTEROL Inactive TYLENOL 8 HOUR 650 MG ORAL CR-TABS Take 1 tab po up to 3 times daily as needed TYLENOL 8 HOUR 650 MG ORAL CR-TABS ACETAMINOPHEN Inactive INVEGA 6 MG ORAL [id number] 1 po daily for Schizophrenia INVEGA 6 MG ORAL [id number] PALIPERIDONE Inactive IPRATROPIUM-ALBUTEROL 0.5-2.5 (3) MG/3ML SOLN 1 neb treatment four times daily , for cough IPRATROPIUM-ALBUTEROL 0.5-2.5 (3) MG/3ML SOLN 4400159 IPRATROPIUM-ALBUTEROL Inactive BACTRIM DS 800-160 MG TAB 1 tab by mouth twice daily BACTRIM DS 800-160 MG TAB 19821119 TRIMETHOPRIM-SULFAMETHOXAZOLE Inactive Advance Directives Directive Description Start Date DURABLE POWER OF CERTIFIED REAL ESTATE APPRAISER FOR HEALTHCARE PERMISSION TO SHARE ADVANCED DIRECTIVE Vital Signs Date Name Value Unit Range Description blood pressure, diastolic - 8462-4 66 mm[Hg] BP daly blood pressure, systolic - 8480-6 144 mm[Hg] BP sys pulse rate E&M - 8867-4 88 /min Heart rate temperature E&M 97.5 [degF] Body temperature weight E&M - 3141-9 180 [lb_av] Weight Measured blood pressure, diastolic - 8462-4 62 mm[Hg] BP daly blood pressure, systolic - 8480-6 136 mm[Hg] BP sys height E&M - 8302-2 66 [in_us] Bdy height pulse rate E&M - 8867-4 89 /min Heart rate temperature E&M 97.8 [degF] Body temperature weight E&M - 3141-9 178.38 [lb_av] Weight Measured blood pressure, diastolic - 8462-4 66 mm[Hg] BP daly blood pressure, systolic - 8480-6 145 mm[Hg] BP sys pulse rate E&M - 8867-4 90 /min Heart rate temperature E&M 97.4 [degF] Body temperature weight E&M - 3141-9 180 [lb_av] Weight Measured blood pressure, diastolic - 8462-4 77 mm[Hg] BP daly blood pressure, systolic - 8480-6 139 mm[Hg] BP sys height E&M - 8302-2 66 [in_us] Bdy height pulse rate E&M - 8867-4 92 /min Heart rate temperature E&M 97.5 [degF] Body temperature weight E&M - 3141-9 184.4 [lb_av] Weight Measured blood pressure, diastolic - 8462-4 71 mm[Hg] BP daly blood pressure, systolic - 8480-6 137 mm[Hg] BP sys pulse rate E&M - 8867-4 88 /min Heart rate temperature E&M 97.5 [degF] Body temperature weight E&M - 3141-9 181.5 [lb_av] Weight Measured blood pressure, diastolic - 8462-4 64 mm[Hg] BP daly blood pressure, systolic - 8480-6 135 mm[Hg] BP sys pulse rate E&M - 8867-4 93 /min Heart rate temperature E&M 98 [degF] Body temperature weight E&M - 3141-9 174 [lb_av] Weight Measured blood pressure, diastolic - 8462-4 65 mm[Hg] BP daly blood pressure, systolic - 8480-6 128 mm[Hg] BP sys pulse rate E&M - 8867-4 94 /min Heart rate temperature E&M 99.4 [degF] Body temperature weight E&M - 3141-9 172 [lb_av] Weight Measured blood pressure, diastolic - 8462-4 77 mm[Hg] BP daly blood pressure, systolic - 8480-6 162 mm[Hg] BP sys pulse rate E&M - 8867-4 92 /min Heart rate temperature E&M 98.8 [degF] Body temperature weight E&M - 3141-9 178 [lb_av] Weight Measured blood pressure, diastolic - 8462-4 58 mm[Hg] BP daly blood pressure, systolic - 8480-6 144 mm[Hg] BP sys pulse rate E&M - 8867-4 95 /min Heart rate temperature E&M 98.7 [degF] Body temperature weight E&M - 3141-9 166.2 [lb_av] Weight Measured Diagnostic Results Date Name Value Unit Range Description Lab Report: HGBA1C - Chemistry hemoglobin A1C, blood, as % of total hemoglobin 7.0 % 4.3-6.0 Office Visit: 3 MONTH FU - Basic LDL target level 100 mg/dL Office Visit: 3 MONTH FU - Chemistry cholesterol, target level 200 mg/dL triglyceride, target level 200 mg/dL HDL cholesterol, serum, target level 35 mg/dL Office Visit: 6 MO CHECK UP - Basic LDL target level 100 mg/dL Office Visit: 6 MO CHECK UP - Chemistry HDL cholesterol, serum, target level 40 mg/dL triglyceride, target level 150 mg/dL cholesterol, target level 200 mg/dL Office Visit: ANNUAL WELLNESS & 3 MO F/U - Basic LDL target level 100 mg/dL Office Visit: ANNUAL WELLNESS & 3 MO F/U - Chemistry cholesterol, target level 200 mg/dL triglyceride, target level 150 mg/dL HDL cholesterol, serum, target level 40 mg/dL Encounters Code Encounter Date Provider Facility CPT-12575 Level 4 Est. Patient 14:27:30 CDT Pelon Quach MD [facility] CPT-93220 Level 3 Est. Patient 10:32:17 CDT Jaycee Garcia [facility] CPT-42795 Level 3 Est. Patient 10:15:07 CDT Pelon Quach MD [facility] CPT-80276 Level 4 Est. Patient 09:30:54 CDT Pelon Quach MD [facility] CPT-94655 Level 4 Est. Patient 14:34:25 CDT Pelon Quach MD [facility] CPT-06386 Level 3 Est. 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 Patient 12:13:33 [employer] C[employer] Erik Baptiste MD [facility] CPT-36504 Level 3 Est. Patient 09:40:44 [employer] C[employer] Jaycee Garcia [facility] CPT-81166 Level 3 Est. Patient 09:36:32 [employer] C[employer] Jaycee Garcia [facility] CPT-91196 Level 4 Est. Patient 16:57:02 C[employer] CUTTER [facility] Patient 22:19:34 CDT Pelon Quach MD [facility]-43475 Level 3 Est. Patient 00:34:41 CDT Pelon Quach MD [facility]-78629 Level 4 Est. Patient 11:19:14 CDT Pelon Quach MD [facility]-87771 Level 4 Est. 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-68789 Level 4 Est. Patient 12:42:18 CDT Pelon Quach MD [facility]-93001 Level 4 Est. Patient 11:52:20 CDT Pelon Quach MD [facility]-02805 Level 4 Est. Patient 13:59:46 CDT Pelon Quach MD [facility]-76290 Level 4 Est. Patient 15:10:48 CDT Pelon Quach MD [facility]-15879 Level 4 Est. Patient 17:13:06 CDT Pelon Quach MD [facility]-48379 Level 4 Est. Patient 18:47:47 CDT Pelon Quach MD [facility]-52821 Level 3 Est. Patient 21:01:27 CDT Pelon Quach MD [facility]-64004 Level 3 Est. Patient 14:07:03 CDT Taty Alvarado MD PhD [facility] CPT-62615 Level 3 New Patient 21:39:52 C[employer] CUTTER Pelon Quach MD [facility]-77337 Level 3 Est. Patient 14:28:44 CDT Glenn Thornton MD [facility]-67610 Level 3 Est. 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
--- OUTSIDE RECORDS SUMMARY | 2018-06-22 11:38 | XMS REPORT | Clinical Summary ---
Author Author Admin, ONESIMO Organization [facility] [employer] [place] Address Unknown Phone Unavailable Allergies, Adverse Reactions, [...] Generic Name NDC Status Provider Patient Instruction BANOPHEN 25 MG ORAL TABS 1 po every 6 hours PRN allergic reaction DIPHENHYDRAMINE HCL 50296600326 Active NICOLETTE Hitchcock Active INVEGA 6 MG ORAL [id number] 1 po daily for Schizophrenia PALIPERIDONE 98646657793 No Longer Active Pelon Quach MD Active TYLENOL 8 HOUR 650 MG ORAL CR-TABS Take 1 tab po up to 3 times daily as needed ACETAMINOPHEN 79471575630 No Longer Active Pelon Quach MD Active IPRATROPIUM-ALBUTEROL 0.5-2.5 (3) MG/3ML INH SOLN 1 neb treatment QID for cough Dx: J06.9 IPRATROPIUM-ALBUTEROL 41638942496 No Longer Active Pelon Quach MD Active BACTRIM DS 800-160 MG TAB 1 tab by mouth twice daily TRIMETHOPRIM-SULFAMETHOXAZOLE 03214987509 No Longer Active Pelon Quach MD Active BACTROBAN 2 % OINTMENT Apply to affected area BID MUPIROCIN 63697736117 Active Jaycee Garcia APRN Active BACTRIM DS 800-160 MG TABS 1 twice a day SULFAMETHOXAZOLE-TRIMETHOPRIM 36700412285 No Longer Active Pelon Quach MD Active IPRATROPIUM-ALBUTEROL 0.5-2.5 (3) MG/3ML SOLN 1 neb treatment four times daily , for cough IPRATROPIUM-ALBUTEROL 96219666405 No Longer Active Jaycee Garcia APRN Active FUROSEMIDE 40 MG TABS Take one by mouth daily FUROSEMIDE 58459670097 No Longer Active Jaycee Garcia APRN Active LANTUS 100 UNIT/ML SC SOLN 20 SUBQ AT HS INSULIN GLARGINE 32557919290 Active Jaycee Garcia APRN Active LAMICTAL 25 MG ORAL TABS 2 tabs po BID for convulsions LAMOTRIGINE 31727622318 Active Jaycee Garcia APRN Active LASIX 20 MG TAB 1 tablet by mouth every morning for edema FUROSEMIDE 04497048997 Active Jaycee Garcia APRN Active BUSPIRONE HCL 10 MG TABS 1 tab by mouth BID BUSPIRONE HCL 45607006176 Active Jaycee Garcia ATTENDANT HONOR BAR Active NOVOLOG 100 UNIT/ML SC SOLN 10 UNITS BEFORE SUPPER INSULIN ASPART 48430548675 Active Jaycee Garcia APRN Active NOVOLOG 100 UNIT/ML SC SOLN 10 UNITS BID BEFORE BREAKFAST AND LUNCH INSULIN ASPART 13644365900 Active Jaycee Garcia APRN Active LAMICTAL 25 MG TABS 2 tabs by mouth twice a day LAMOTRIGINE 47511657454 Active Pelon Quach MD Active ADULT ASPIRIN EC LOW STRENGTH 81 MG TBEC Take one by mouth daily ASPIRIN 94040614480 No Longer Active Pelon Quach MD Active ASPIRIN 81 MG ORAL TABS 1 po qd ASPIRIN 33172086888 Active Pelon Quach MD Active ZOFRAN 4 MG TABS 1 po q6hr PRN Nausea ONDANSETRON HCL 99529434689 No Longer Active Pelon Quach MD Active TYLENOL 325 MG TAB 1-2 pills by mouth every 6 hours if needed for pain/fever ACETAMINOPHEN 57585364372 No Longer Active Pelon Quach MD Active INVEGA 6 MG ORAL [id number] 1 TAB ONCE DAILY PALIPERIDONE 18634636454 No Longer Active Carly Suggs Active TEGRETOL 200 MG TABS by mouth twice a day CARBAMAZEPINE 26699427507 Active Taty Alvarado MD PhD Active FLOMAX 0.4 MG CAPS 1 Daily TAMSULOSIN HCL 29358040417 Active Marianela Juarez Active DILANTIN 100 MG CAPS Take one by mouth daily PHENYTOIN SODIUM EXTENDED 16132471121 No Longer Active Marianela Juarez Active DEPAKOTE SPRINKLES 125 MG CPSP 4 capsules by mouth twice daily DIVALPROEX SODIUM 06396069738 No Longer Active Marianela Juarez Active LAMICTAL 200 MG ORAL TABS 1 BY MOUTH TWICE A DAY LAMOTRIGINE 37664548770 Active Marianela Juarez Active LAMICTAL 100 MG TABS by mouth twice a day LAMOTRIGINE 62618778786 No Longer Active Marianela Juarez Active LAMICTAL 150 MG TABS by mouth twice a day LAMOTRIGINE 49982887356 No Longer Active Marianela Juarez Active DILANTIN 100 MG CAPS Take three by mouth daily PHENYTOIN SODIUM EXTENDED 19491573348 No Longer Active Marianela Shankarronny Active SENOKOT 8.6 MG TABS take at bedtime SENNOSIDES 74172877523 Active Glenn Thornton MD Active LIPITOR 20 MG TABS take at bedtime ATORVASTATIN CALCIUM 59290465162 Active Glenn Thornton MD Active LISINOPRIL 2.5 MG TABS Take one by mouth daily LISINOPRIL 81912308437 Active Glenn Thornton MD Active TRENTAL 400 MG CR-TABS by mouth twice a day PENTOXIFYLLINE 07608616543 Active Glenn Thornton MD Active KLOR-CON 10 10 MEQ CR-TABS Take one by mouth daily POTASSIUM CHLORIDE 30385253086 Active Glenn Thornton MD Active DILANTIN 100 MG CAPS Take three by mouth daily DILANTIN 100 MG CAPS 699699 PHENYTOIN SODIUM EXTENDED Inactive LAMICTAL 150 MG TABS by mouth twice a day LAMICTAL 150 MG TABS 369743 LAMOTRIGINE Inactive LAMICTAL 100 MG TABS by mouth twice a day LAMICTAL 100 MG TABS 19831024 LAMOTRIGINE Inactive DEPAKOTE SPRINKLES 125 MG CPSP 4 capsules by mouth twice daily DEPAKOTE SPRINKLES 125 MG CPSP 9032766 DIVALPROEX SODIUM Inactive DILANTIN 100 MG CAPS Take one by mouth daily DILANTIN 100 MG CAPS 288468 PHENYTOIN SODIUM EXTENDED Inactive INVEGA 6 MG ORAL [id number] 1 TAB ONCE DAILY INVEGA 6 MG ORAL [id number] PALIPERIDONE Inactive TYLENOL 325 MG TAB 1-2 pills by mouth every 6 hours if needed for pain/fever TYLENOL 325 MG TAB 330668 ACETAMINOPHEN Inactive ZOFRAN 4 MG TABS 1 po q6hr PRN Nausea ZOFRAN 4 MG TABS 577235 ONDANSETRON HCL Inactive ADULT ASPIRIN EC LOW STRENGTH 81 MG TBEC Take one by mouth daily ADULT ASPIRIN EC LOW STRENGTH 81 MG TBEC 104369 ASPIRIN Inactive FUROSEMIDE 40 MG TABS Take one by mouth daily FUROSEMIDE 40 MG TABS 289509 FUROSEMIDE Inactive BACTRIM DS 800-160 MG TABS 1 twice a day BACTRIM DS 800-160 MG TABS 306294 SULFAMETHOXAZOLE-TRIMETHOPRIM Inactive IPRATROPIUM-ALBUTEROL 0.5-2.5 (3) MG/3ML INH SOLN 1 neb treatment QID for cough Dx: J06.9 IPRATROPIUM-ALBUTEROL 0.5-2.5 (3) MG/ 3ML INH SOLN 8127040 IPRATROPIUM-ALBUTEROL Inactive TYLENOL 8 HOUR 650 MG ORAL CR-TABS Take 1 tab po up to 3 times daily as needed TYLENOL 8 HOUR 650 MG ORAL CR-TABS ACETAMINOPHEN Inactive INVEGA 6 MG ORAL [id number] 1 po daily for Schizophrenia INVEGA 6 MG ORAL [id number] PALIPERIDONE Inactive IPRATROPIUM-ALBUTEROL 0.5-2.5 (3) MG/3ML SOLN 1 neb treatment four times daily , for cough IPRATROPIUM-ALBUTEROL 0.5-2.5 (3) MG/3ML SOLN 3688753 IPRATROPIUM-ALBUTEROL Inactive BACTRIM DS 800-160 MG TAB 1 tab by mouth twice daily BACTRIM DS 800-160 MG TAB [id number] TRIMETHOPRIM-SULFAMETHOXAZOLE Inactive Advance Directives Directive Description Start Date DURABLE POWER OF CONCRETE MIXER OPERATOR FOR HEALTHCARE PERMISSION TO SHARE ADVANCED DIRECTIVE Vital Signs Date Name Value Unit Range Description blood pressure, diastolic 66 mm[Hg] BP daly blood pressure, systolic 144 mm[Hg] BP sys pulse rate E&M 88 /min Heart rate temperature E&M 97.5 [degF] Body temperature weight E&M 180 [lb_av] Weight Measured blood pressure, diastolic 62 mm[Hg] BP daly blood pressure, systolic 136 mm[Hg] BP sys height E&M 66 [in_us] Bdy height pulse rate E&M 89 /min Heart rate temperature E&M 97.8 [degF] Body temperature weight E&M 178.38 [lb_av] Weight Measured blood pressure, diastolic 66 mm[Hg] BP daly blood pressure, systolic 145 mm[Hg] BP sys pulse rate E&M 90 /min Heart rate temperature E&M 97.4 [degF] Body temperature weight E&M 180 [lb_av] Weight Measured blood pressure, diastolic 77 mm[Hg] BP daly blood pressure, systolic 139 mm[Hg] BP sys height E&M 66 [in_us] Bdy height pulse rate E&M 92 /min Heart rate temperature E&M 97.5 [degF] Body temperature weight E&M 184.4 [lb_av] Weight Measured blood pressure, diastolic 71 mm[Hg] BP daly blood pressure, systolic 137 mm[Hg] BP sys pulse rate E&M 88 /min Heart rate temperature E&M 97.5 [degF] Body temperature weight E&M 181.5 [lb_av] Weight Measured blood pressure, diastolic 64 mm[Hg] BP daly blood pressure, systolic 135 mm[Hg] BP sys pulse rate E&M 93 /min Heart rate temperature E&M 98 [degF] Body temperature weight E&M 174 [lb_av] Weight Measured blood pressure, diastolic 65 mm[Hg] BP daly blood pressure, systolic 128 mm[Hg] BP sys pulse rate E&M 94 /min Heart rate temperature E&M 99.4 [degF] Body temperature weight E&M 172 [lb_av] Weight Measured blood pressure, diastolic 77 mm[Hg] BP daly blood pressure, systolic 162 mm[Hg] BP sys pulse rate E&M 92 /min Heart rate temperature E&M 98.8 [degF] Body temperature weight E&M 178 [lb_av] Weight Measured Diagnostic Results Date Name Value Unit Range Description Lab Report: Basic Metabolic Panel - Chemistry sodium, serum 127 mmol/L 566-359 1064/07/28 potassium, serum 5.3 mmol/L 3.5-5.2 chloride, serum 92 mmol/L 98-107 carbon dioxide, venous blood 32.4 mmol/L 21.0-32.0 blood glucose 182 mg/dL 65-110 calcium, serum 9.4 mg/dL 8.5-10.1 urea nitrogen, blood 14 mg/dL 7-18 creatinine, serum 0.94 mg/dL 0.60-1.30 Lab Report: CBC, Comp. Metabolic Panel - Chemistry sodium, serum 129 mmol/L 485-390 7957/07/12 carbon dioxide, venous blood 27.8 mmol/L 21.0-32.0 [...] count 270 10^3/MM^3 10*3/mm3 142-424 Lab Report: HGBA1C - Chemistry hemoglobin A1C, blood, as % of total hemoglobin 7.0 % 4.3-6.0 Office Visit: 6 MO CHECK UP - [...] mg/dL Encounters Code Encounter Date Provider Facility CPT-20491 Level 4 Est. Patient 14:27:30 CDT Pelon Quach MD [facility] CPT-57288 Level 3 Est. Patient 10:32:17 CDT Jaycee Garcia [facility] CPT-39318 Level 3 Est. Patient 10:15:07 CDT Pelon Quach MD [facility] CPT-03419 Level 4 Est. Patient 09:30:54 CDT Pelon Quach MD [facility]-31323 Level 4 Est. Patient 14:34:25 CDT Pelon Quach MD [facility] CPT-85220 Level 3 Est. Patient 11:51:35 SEARCH MARKETING SPECIALIST Rick Henson DO [facility]-03968 Level 3 Est. Patient 12:13:33 SEARCH MARKETING SPECIALIST Erik Baptiste MD [facility] CPT-92943 Level 3 Est. Patient 09:40:44 SEARCH MARKETING SPECIALIST Jaycee Garcai [facility] CPT-89907 Level 3 Est. Patient 09:36:32 SEARCH MARKETING SPECIALIST Jaycee Garcia [facility] CPT-90600 Level 4 Est. Patient 16:57:02 SEARCH MARKETING SPECIALIST Pelon Quach MD [facility]-82237 Level 4 Est. Patient 22:19:34 CDT Pelon Quach MD [facility] CPT-41951 Level 3 Est. Patient 00:34:41 CDT Pelon Quach MD [facility] CPT-29487 Level 4 Est. Patient 11:19:14 CDT Pelon Quach MD [facility] CPT-34190 Level 4 Est. Patient 16:43:30 SEARCH MARKETING SPECIALIST Pelon Quach MD [facility]-46056 Level 4 Est. Patient 12:42:18 CDT Pelon Quach MD [facility] CPT-93541 Level 4 Est. Patient 11:52:20 CDT Pelon Quach MD [facility] CPT-42944 Level 4 Est. Patient 13:59:46 CDT Pelon Quach MD [facility] CPT-40981 Level 4 Est. Patient 15:10:48 CDT Pelon Quach MD [facility] CPT-82714 Level 4 Est. Patient 17:13:06 CDT Pelon Quach MD [facility] CPT-27833 Level 4 Est. Patient 18:47:47 CDT Pelon Quach MD [facility] CPT-24069 Level 3 Est. Patient 21:01:27 CDT Pelon Quach MD [facility] CPT-38359 Level 3 Est. Patient 14:07:03 CDT Taty Alvarado MD PhD [facility] CPT-40406 Level 3 New Patient 21:39:52 SEARCH MARKETING SPECIALIST Pelon Quach MD [facility] CPT-72630 Level 3 Est. Patient 14:28:44 CDT Glenn Thornton MD [facility] CPT-11354 Level 3 Est. Patient 16:35:00 CDT Glenn Thornton MD [facility] CPT-90817 Level 4 New Patient 17:06:27 CDT [facility] Procedures Code Procedure Name Date Entry Date Standard Description CPT-G0438 Initial Annual Wellness Exam 09:30:54 CDT CPT-18820 Prevnar 13 Intramuscular Suspension 14:34:25 CDT 12/27 CPT-79444 Chest 2V Frontal and Lat - XRAY USE ONLY 11:56:13 SEARCH MARKETING SPECIALIST CPT-91858 Cystoscopy 14:28:44 CDT CPT-49883 Bladder Scan 14:28:44 CDT CPT-77120 Indwelling Cath Change 17:06:27 CDT CPT-69879 Cystoscopy 17:06:27 CDT
--- OUTSIDE RECORDS SUMMARY | 2018-06-22 11:38 | XMS REPORT | Clinical Summary ---
Author Author Admin, ONESIMO Organization [facility] [employer] [place] Address Unknown Phone Unavailable Allergies, Adverse Reactions, [...] 6 hours PRN allergic reaction DIPHENHYDRAMINE HCL 04852907774 Active NICOLETTE Hitchcock Active INVEGA 6 MG ORAL [id number] 1 po daily for Schizophrenia PALIPERIDONE 98813272254 No Longer Active Pelon Quach MD Active TYLENOL 8 HOUR 650 MG ORAL CR-TABS Take 1 tab po up to 3 times daily as needed ACETAMINOPHEN 66804404121 No Longer Active Pelon Quach MD Active IPRATROPIUM-ALBUTEROL 0.5-2.5 (3) MG/3ML INH SOLN 1 neb treatment QID for cough Dx: J06.9 IPRATROPIUM-ALBUTEROL 87475378306 No Longer Active Pelon Quach MD Active BACTRIM DS 800-160 MG TAB 1 tab by mouth twice daily TRIMETHOPRIM-SULFAMETHOXAZOLE 15346899400 No Longer Active Pelon Quach MD Active BACTROBAN 2 % OINTMENT Apply to affected area BID MUPIROCIN 73471195720 Active Jaycee Garcia APRN Active BACTRIM DS 800-160 MG TABS 1 twice a day SULFAMETHOXAZOLE-TRIMETHOPRIM 66445343894 No Longer Active Pelon Quach MD Active IPRATROPIUM-ALBUTEROL 0.5-2.5 (3) MG/3ML SOLN 1 neb treatment four times daily , for cough IPRATROPIUM-ALBUTEROL 07558051306 No Longer Active Jaycee Garcia APRN Active FUROSEMIDE 40 MG TABS Take one by mouth daily FUROSEMIDE 31584280841 No Longer Active Jaycee Garcia APRN Active LANTUS 100 UNIT/ML SC SOLN 20 SUBQ AT HS INSULIN GLARGINE 98956145745 Active Jaycee Garcia APRN Active LAMICTAL 25 MG ORAL TABS 2 tabs po BID for convulsions LAMOTRIGINE 00648430632 Active Jaycee Garcia APRN Active LASIX 20 MG TAB 1 tablet by mouth every morning for edema FUROSEMIDE 81293923389 Active Jaycee Garcia APRN Active BUSPIRONE HCL 10 MG TABS 1 tab by mouth BID BUSPIRONE HCL 06404002484 Active Jaycee Garcia DEHYDRATOR Active NOVOLOG 100 UNIT/ML SC SOLN 10 UNITS BEFORE SUPPER INSULIN ASPART 48257489740 Active Jaycee Garcia APRN Active NOVOLOG 100 UNIT/ML SC SOLN 10 UNITS BID BEFORE BREAKFAST AND LUNCH INSULIN ASPART 75020569193 Active Jaycee Garcia APRN Active LAMICTAL 25 MG TABS 2 tabs by mouth twice a day LAMOTRIGINE 54067421901 Active Pelon Quach MD Active ADULT ASPIRIN EC LOW STRENGTH 81 MG TBEC Take one by mouth daily ASPIRIN 95808325175 No Longer Active Pelon Quach MD Active ASPIRIN 81 MG ORAL TABS 1 po qd ASPIRIN 87153679329 Active Pelon Quach MD Active ZOFRAN 4 MG TABS 1 po q6hr PRN Nausea ONDANSETRON HCL 27945260270 No Longer Active Pelon Quach MD Active TYLENOL 325 MG TAB 1-2 pills by mouth every 6 hours if needed for pain/fever ACETAMINOPHEN 45653322340 No Longer Active Pelon Quach MD Active INVEGA 6 MG ORAL [id number] 1 TAB ONCE DAILY PALIPERIDONE 95453877045 No Longer Active Carly Suggs Active TEGRETOL 200 MG TABS by mouth twice a day CARBAMAZEPINE 44800449549 Active Taty Alvraado MD PhD Active FLOMAX 0.4 MG CAPS 1 Daily TAMSULOSIN HCL 15485184982 Active Marianela Juarez Active DILANTIN 100 MG CAPS Take one by mouth daily PHENYTOIN SODIUM EXTENDED 06431691627 No Longer Active Marianela Juarez Active DEPAKOTE SPRINKLES 125 MG CPSP 4 capsules by mouth twice daily DIVALPROEX SODIUM 09471042624 No Longer Active Marianela Juarez Active LAMICTAL 200 MG ORAL TABS 1 BY MOUTH TWICE A DAY LAMOTRIGINE 96000348771 Active Marianela Juarez Active LAMICTAL 100 MG TABS by mouth twice a day LAMOTRIGINE 35801135945 No Longer Active Marianela Juarez Active LAMICTAL 150 MG TABS by mouth twice a day LAMOTRIGINE 05407980379 No Longer Active Marianela Juarez Active DILANTIN 100 MG CAPS Take three by mouth daily PHENYTOIN SODIUM EXTENDED 01546591149 No Longer Active Marianela Shankarronny Active SENOKOT 8.6 MG TABS take at bedtime SENNOSIDES 07717213637 Active Glenn Thornton MD Active LIPITOR 20 MG TABS take at bedtime ATORVASTATIN CALCIUM 91425628310 Active Glenn Thornton MD Active LISINOPRIL 2.5 MG TABS Take one by mouth daily LISINOPRIL 31303572948 Active Glenn Thornton MD Active TRENTAL 400 MG CR-TABS by mouth twice a day PENTOXIFYLLINE 96680749791 Active Glenn Thornton MD Active KLOR-CON 10 10 MEQ CR-TABS Take one by mouth daily POTASSIUM CHLORIDE 17611812025 Active Glenn Thornton MD Active DILANTIN 100 MG CAPS Take three by mouth daily DILANTIN 100 MG CAPS 857747 PHENYTOIN SODIUM EXTENDED Inactive LAMICTAL 150 MG TABS by mouth twice a day LAMICTAL 150 MG TABS 620617 LAMOTRIGINE Inactive LAMICTAL 100 MG TABS by mouth twice a day LAMICTAL 100 MG TABS 19831024 LAMOTRIGINE Inactive DEPAKOTE SPRINKLES 125 MG CPSP 4 capsules by mouth twice daily DEPAKOTE SPRINKLES 125 MG CPSP 6754260 DIVALPROEX SODIUM Inactive DILANTIN 100 MG CAPS Take one by mouth daily DILANTIN 100 MG CAPS 557344 PHENYTOIN SODIUM EXTENDED Inactive INVEGA 6 MG ORAL [id number] 1 TAB ONCE DAILY INVEGA 6 MG ORAL [id number] PALIPERIDONE Inactive TYLENOL 325 MG TAB 1-2 pills by mouth every 6 hours if needed for pain/fever TYLENOL 325 MG TAB 088115 ACETAMINOPHEN Inactive ZOFRAN 4 MG TABS 1 po q6hr PRN Nausea ZOFRAN 4 MG TABS 238510 ONDANSETRON HCL Inactive ADULT ASPIRIN EC LOW STRENGTH 81 MG TBEC Take one by mouth daily ADULT ASPIRIN EC LOW STRENGTH 81 MG TBEC 916716 ASPIRIN Inactive FUROSEMIDE 40 MG TABS Take one by mouth daily FUROSEMIDE 40 MG TABS 937016 FUROSEMIDE Inactive BACTRIM DS 800-160 MG TABS 1 twice a day BACTRIM DS 800-160 MG TABS 483639 SULFAMETHOXAZOLE-TRIMETHOPRIM Inactive IPRATROPIUM-ALBUTEROL 0.5-2.5 (3) MG/3ML INH SOLN 1 neb treatment QID for cough Dx: J06.9 IPRATROPIUM-ALBUTEROL 0.5-2.5 (3) MG/ 3ML INH SOLN 3334863 IPRATROPIUM-ALBUTEROL Inactive TYLENOL 8 HOUR 650 MG ORAL CR-TABS Take 1 tab po up to 3 times daily as needed TYLENOL 8 HOUR 650 MG ORAL CR-TABS ACETAMINOPHEN Inactive INVEGA 6 MG ORAL [id number] 1 po daily for Schizophrenia INVEGA 6 MG ORAL [id number] PALIPERIDONE Inactive IPRATROPIUM-ALBUTEROL 0.5-2.5 (3) MG/3ML SOLN 1 neb treatment four times daily , for cough IPRATROPIUM-ALBUTEROL 0.5-2.5 (3) MG/3ML SOLN 0906326 IPRATROPIUM-ALBUTEROL Inactive BACTRIM DS 800-160 MG TAB 1 tab by mouth twice daily BACTRIM DS 800-160 MG TAB [id number] TRIMETHOPRIM-SULFAMETHOXAZOLE Inactive Advance Directives Directive Description Start Date DURABLE POWER OF HAIRSPRING TRUER FOR HEALTHCARE PERMISSION TO SHARE ADVANCED DIRECTIVE [...] E&M - 3141-9 178 [lb_av] Weight Measured Diagnostic Results Date Name Value Unit Range Description Lab Report: CBC, Comp. Metabolic Panel - Chemistry sodium, serum 129 mmol/L 925-693 5946/07/12 carbon dioxide, venous blood 27.8 mmol/L 21.0-32.0 [...] mg/dL Encounters Code Encounter Date Provider Facility CPT-48071 Level 4 Est. Patient 14:27:30 CDT Pelon Quach MD [facility] CPT-13240 Level 3 Est. Patient 10:32:17 CDT Jaycee Garcia [facility] CPT-92179 Level 3 Est. Patient 10:15:07 CDT Pelon Quach MD [facility]-11408 Level 4 Est. Patient 09:30:54 CDT Pelon Quach MD [facility]-51420 Level 4 Est. Patient 14:34:25 CDT Pelon Quach MD [facility] CPT-48543 Level 3 Est. Patient 11:51:35 FACILITIES PAINTER Rick Henson DO [facility]-94892 Level 3 Est. Patient 12:13:33 FACILITIES PAINTER Erik Baptiste MD [facility] CPT-74630 Level 3 Est. Patient 09:40:44 FACILITIES PAINTER Jaycee Garcia [facility]-72077 Level 3 Est. Patient 09:36:32 FACILITIES PAINTER Jaycee Garcia [facility] CPT-86952 Level 4 Est. Patient 16:57:02 FACILITIES PAINTER Pelon Quach MD [facility]-45008 Level 4 Est. Patient 22:19:34 CDT Pelon Quach MD [facility] CPT-52634 Level 3 Est. Patient 00:34:41 CDT Pelon Quach MD [facility] CPT-24466 Level 4 Est. Patient 11:19:14 CDT Pelon Quach MD [facility] CPT-04542 Level 4 Est. Patient 16:43:30 FACILITIES PAINTER Pelon Quach MD [facility]-14806 Level 4 Est. Patient 12:42:18 CDT Pelon Quach MD [facility] CPT-61751 Level 4 Est. Patient 11:52:20 CDT Pelon Quach MD [facility] CPT-81649 Level 4 Est. Patient 13:59:46 CDT Pelon Quach MD [facility] CPT-86233 Level 4 Est. Patient 15:10:48 CDT Pelon Quach MD [facility] CPT-27043 Level 4 Est. Patient 17:13:06 CDT Pelon Quach MD [facility] CPT-26353 Level 4 Est. Patient 18:47:47 CDT Pelon Quach MD [facility] CPT-21294 Level 3 Est. Patient 21:01:27 CDT Pelon Quach MD [facility] CPT-76350 Level 3 Est. Patient 14:07:03 CDT Taty Alvarado MD PhD [facility] CPT-64474 Level 3 New Patient 21:39:52 FACILITIES PAINTER Pelon Quach MD [facility] CPT-80592 Level 3 Est. Patient 14:28:44 CDT Glenn Thornton MD [facility] CPT-96706 Level 3 Est. Patient 16:35:00 CDT Glenn Thornton MD [facility] CPT-41047 Level 4 New Patient 17:06:27 CDT Glenn [facility] Procedures Code Procedure Name Date Entry Date Standard Description CPT-G0438 Initial Annual Wellness Exam 09:30:54 CDT CPT-36599 Prevnar 13 Intramuscular Suspension 14:34:25 CDT 12/27 CPT-96064 Chest 2V Frontal and Lat - XRAY USE ONLY 11:56:13 FACILITIES PAINTER CPT-95216 Cystoscopy 14:28:44 CDT CPT-52573 Bladder Scan 14:28:44 CDT CPT-50823 Indwelling Cath Change 17:06:27 CDT CPT-45566 Cystoscopy 17:06:27 CDT
--- OUTSIDE RECORDS SUMMARY | 2018-06-22 11:39 | XMS REPORT | Clinical Summary ---
Author Author Admin, ONESIMO Organization [facility] [employer] [place] Address Unknown Phone Unavailable Allergies, Adverse Reactions, [...] 427.31 Active Pelon Quach MD Atrial fibrillation URI - acute ICD-465.9 Inactive Erik Baptiste MD URI - acute ICD-465.9 Inactive Erik Baptiste MD Medication List Medication Instructions Start Date Stop Date Generic Name NDC Status Provider Patient Instruction BACTRIM DS 800-160 MG TABS 1 twice a day SULFAMETHOXAZOLE-TRIMETHOPRIM 77848700822 No Longer Active Pelon Quach MD Active IPRATROPIUM-ALBUTEROL 0.5-2.5 (3) MG/3ML INH SOLN 1 neb treatment QID for cough Dx: J06.9 IPRATROPIUM-ALBUTEROL 08390457091 Active Jaycee Garcia APRN Active IPRATROPIUM-ALBUTEROL 0.5-2.5 (3) MG/3ML SOLN 1 neb treatment four times daily , for cough IPRATROPIUM-ALBUTEROL 79878188406 No Longer Active Jaycee Jose VICTORINO Active TYLENOL 8 HOUR 650 MG ORAL CR-TABS Take 1 tab po up to 3 times daily as needed ACETAMINOPHEN 47780640179 Active Jaycee Garcia APRN Active FUROSEMIDE 40 MG TABS Take one by mouth daily FUROSEMIDE 35099796143 No Longer Active Jaycee Jose VICTORINO Active LANTUS 100 UNIT/ML SC SOLN 20 SUBQ AT HS INSULIN GLARGINE 69352485320 Active Jaycee Garcia APRN Active LAMICTAL 25 MG ORAL TABS 2 tabs po BID for convulsions LAMOTRIGINE 98099322049 Active Jaycee Garcia APRN Active INVEGA 6 MG ORAL [id number] 1 po daily for Schizophrenia PALIPERIDONE 12069517185 Active Jaycee Garcia APRN Active LASIX 20 MG TAB 1 tablet by mouth every morning for edema FUROSEMIDE 44896867347 Active Jaycee Garcia APRN Active BUSPIRONE HCL 10 MG TABS 1 tab by mouth BID BUSPIRONE HCL 93648334291 Active Jaycee Jose VICTORINO Active NOVOLOG 100 UNIT/ML SC SOLN 10 UNITS BEFORE SUPPER INSULIN ASPART 99935062536 Active Jaycee Garcia APRN Active NOVOLOG 100 UNIT/ML SC SOLN 10 UNITS BID BEFORE BREAKFAST AND LUNCH INSULIN ASPART 41659939317 Active Jaycee Garcia APRN Active LAMICTAL 25 MG TABS 2 tabs by mouth twice a day LAMOTRIGINE 90267138303 Active Pelon Quach MD Active ADULT ASPIRIN EC LOW STRENGTH 81 MG TBEC Take one by mouth daily ASPIRIN 36775251520 No Longer Active Pelon Quach MD Active ASPIRIN 81 MG ORAL TABS 1 po qd ASPIRIN 37748333369 Active Pelon Quach MD Active ZOFRAN 4 MG TABS 1 po q6hr PRN Nausea ONDANSETRON HCL 26694449991 No Longer Active Pelon Quach MD Active TYLENOL 325 MG TAB 1-2 pills by mouth every 6 hours if needed for pain/fever ACETAMINOPHEN 71908375177 No Longer Active Pelon Quach MD Active INVEGA 6 MG ORAL [id number] 1 TAB ONCE DAILY PALIPERIDONE 11766801730 No Longer Active Carly Suggs Active TEGRETOL 200 MG TABS by mouth twice a day CARBAMAZEPINE 21680340091 Active Taty Alvarado MD PhD Active FLOMAX 0.4 MG CAPS 1 Daily TAMSULOSIN HCL 06642736885 Active Marianelachandrika Juarez Active DILANTIN 100 MG CAPS Take one by mouth daily PHENYTOIN SODIUM EXTENDED 43560940935 No Longer Active Marianelachandrika Shankarronny Active DEPAKOTE SPRINKLES 125 MG CPSP 4 capsules by mouth twice daily DIVALPROEX SODIUM 86964870467 No Longer Active Marianelachandrika Shankarida Active LAMICTAL 200 MG ORAL TABS 1 BY MOUTH TWICE A DAY LAMOTRIGINE 46042183127 Active Marianela Raida Active LAMICTAL 100 MG TABS by mouth twice a day LAMOTRIGINE 21930120201 No Longer Active Marianela Raida Active LAMICTAL 150 MG TABS by mouth twice a day LAMOTRIGINE 46778381747 No Longer Active Marianelachandrika Juarez Active DILANTIN 100 MG CAPS Take three by mouth daily PHENYTOIN SODIUM EXTENDED 74094358166 No Longer Active Marianelachandrika Shankarida Active SENOKOT 8.6 MG TABS take at bedtime SENNOSIDES 09106337960 Active Glenn Thornton MD Active LIPITOR 20 MG TABS take at bedtime ATORVASTATIN CALCIUM 86050401335 Active Glenn Thornton MD Active LISINOPRIL 2.5 MG TABS Take one by mouth daily LISINOPRIL 07410724968 Active Glenn Thornton MD Active TRENTAL 400 MG CR-TABS by mouth twice a day PENTOXIFYLLINE 33289923065 Active Glenn Thornton MD Active KLOR-CON 10 10 MEQ CR-TABS Take one by mouth daily POTASSIUM CHLORIDE 60201708951 Active J Ian Thornton MD Active DILANTIN 100 MG CAPS Take three by mouth daily DILANTIN 100 MG CAPS 884219 PHENYTOIN SODIUM EXTENDED Inactive LAMICTAL 150 MG TABS by mouth twice a day LAMICTAL 150 MG TABS 19831025 LAMOTRIGINE Inactive LAMICTAL 100 MG TABS by mouth twice a day LAMICTAL 100 MG TABS 19831024 LAMOTRIGINE Inactive DEPAKOTE SPRINKLES 125 MG CPSP 4 capsules by mouth twice daily DEPAKOTE SPRINKLES 125 MG CPSP 7023958 DIVALPROEX SODIUM Inactive DILANTIN 100 MG CAPS Take one by mouth daily DILANTIN 100 MG CAPS 253196 PHENYTOIN SODIUM EXTENDED Inactive INVEGA 6 MG ORAL [id number] 1 TAB ONCE DAILY INVEGA 6 MG ORAL [id number] PALIPERIDONE Inactive TYLENOL 325 MG TAB 1-2 pills by mouth every 6 hours if needed for pain/fever TYLENOL 325 MG TAB 382773 ACETAMINOPHEN Inactive ZOFRAN 4 MG TABS 1 po q6hr PRN Nausea ZOFRAN 4 MG TABS 447828 ONDANSETRON HCL Inactive ADULT ASPIRIN EC LOW STRENGTH 81 MG TBEC Take one by mouth daily ADULT ASPIRIN EC LOW STRENGTH 81 MG TBEC 897568 ASPIRIN Inactive FUROSEMIDE 40 MG TABS Take one by mouth daily FUROSEMIDE 40 MG TABS 700658 FUROSEMIDE Inactive BACTRIM DS 800-160 MG TABS 1 twice a day BACTRIM DS 800-160 MG TABS 821660 SULFAMETHOXAZOLE-TRIMETHOPRIM Inactive IPRATROPIUM-ALBUTEROL 0.5-2.5 (3) MG/3ML SOLN 1 neb treatment four times daily , for cough IPRATROPIUM-ALBUTEROL 0.5-2.5 (3) MG/3ML SOLN 4049885 IPRATROPIUM-ALBUTEROL Inactive Advance Directives Directive Description Start Date DURABLE POWER OF ADMINISTRATIVE TECHNICIAN FOR HEALTHCARE PERMISSION TO SHARE ADVANCED DIRECTIVE [...] E&M - 3141-9 166.2 [lb_av] Weight Measured blood pressure, diastolic - 8462-4 69 mm[Hg] BP daly blood pressure, systolic - 8480-6 134 mm[Hg] BP sys pulse rate E&M - 8867-4 90 /min Heart rate temperature E&M 98.2 [degF] Body temperature weight E&M - 3141-9 170 [lb_av] Weight Measured blood pressure, diastolic - 8462-4 63 mm[Hg] BP daly blood pressure, systolic - 8480-6 132 mm[Hg] BP sys pulse rate E&M - 8867-4 91 /min Heart rate temperature E&M 98.4 [degF] Body temperature weight E&M - 3141-9 166.5 [lb_av] Weight Measured Diagnostic Results Date Name Value Unit Range Description Chart Maintenance: Outside labs entered on flowsheet - Chemistry potassium, serum 132 mmol/L chloride, serum 4.2 mmol/L blood glucose 120 mg/dL creatinine, serum 0.6 mg/dL aspartate aminotransferase (SGOT), serum 31 U/L alanine aminotransferase (SGPT), serum 23 U/L alkaline phosphatase, serum 54 U/L cholesterol, serum 255 mg/dL HDL cholesterol, serum 100 mg/dL LDL cholesterol, serum 147.6 mg/dL triglyceride, serum, fasting 37 mg/dL Office Visit: 3 MO F/U - Basic LDL target level 100 mg/dL Office Visit: 3 MO F/U - Chemistry cholesterol, target level 200 mg/dL triglyceride, target level 150 mg/dL HDL cholesterol, serum, target level 40 mg/dL Office Visit: 3 MONTH FU - Basic [...] mg/dL Encounters Code Encounter Date Provider Facility CPT-05223 Level 4 Est. Patient 09:30:54 CDT Pelon Quach MD [facility]-82225 Level 4 Est. Patient 14:34:25 CDT Pelon Quach MD [facility] CPT-38914 Level 3 Est. Patient 11:51:35 BEHAVIOR INTERVENTIONIST Rick Henson DO [facility]-03687 Level 3 Est. Patient 12:13:33 BEHAVIOR INTERVENTIONIST Erik Baptiste MD [facility]-99994 Level 3 Est. Patient 09:40:44 BEHAVIOR INTERVENTIONIST Jaycee Garcia [facility]-01383 Level 3 Est. Patient 09:36:32 BEHAVIOR INTERVENTIONIST Jaycee Garcia [facility] CPT-15795 Level 4 Est. Patient 16:57:02 BEHAVIOR INTERVENTIONIST Pelon Quach MD [facility]-91687 Level 4 Est. Patient 22:19:34 CDT Pelon Quach MD [facility]-59952 Level 3 Est. Patient 00:34:41 CDT Pelon Quach MD [facility]-41295 Level 4 Est. Patient 11:19:14 CDT Pelon Quach MD [facility]-00474 Level 4 Est. Patient 16:43:30 BEHAVIOR INTERVENTIONIST Pelon Quach MD [facility]-80659 Level 4 Est. Patient 12:42:18 CDT Pelon Quach MD [facility] CPT-69187 Level 4 Est. Patient 11:52:20 CDT Pelon Quach MD [facility] CPT-10045 Level 4 Est. Patient 13:59:46 CDT Pelon Quach MD [facility] CPT-93590 Level 4 Est. Patient 15:10:48 CDT Pelon Quach MD [facility] CPT-76521 Level 4 Est. Patient 17:13:06 CDT Pelon Quach MD [facility] CPT-80441 Level 4 Est. Patient 18:47:47 CDT Pelon Quach MD [facility] CPT-47675 Level 3 Est. Patient 21:01:27 CDT Pelon Quach MD [facility] CPT-50364 Level 3 Est. Patient 14:07:03 CDT Taty Alvarado MD PhD [facility] CPT-87890 Level 3 New Patient 21:39:52 BEHAVIOR INTERVENTIONIST Pelon Quach MD [facility] CPT-51364 Level 3 Est. Patient 14:28:44 CDT Glenn Thornton MD [facility] CPT-61461 Level 3 Est. Patient 16:35:00 CDT Glenn Thornton MD [facility] CPT-17195 Level 4 New Patient 17:06:27 CDT Glenn Thornton MD [facility] [place] Procedures Code Procedure Name Date Entry Date Standard Description CPT-G0438 Initial Annual Wellness Exam 09:30:54 CDT CPT-28518 Prevnar 13 Intramuscular Suspension 14:34:25 CDT 12/27 CPT-24330 Chest 2V Frontal and Lat - XRAY USE ONLY 11:56:13 BEHAVIOR INTERVENTIONIST CPT-31095 Cystoscopy 14:28:44 CDT CPT-71437 Bladder Scan 14:28:44 CDT CPT-08939 Indwelling Cath Change 17:06:27 CDT CPT-30558 Cystoscopy 17:06:27 CDT
--- OUTSIDE RECORDS SUMMARY | 2018-06-22 11:40 | XMS REPORT | Clinical Summary ---
Author Author Admin, ONESIMO Organization [facility] [employer] [place] Address Unknown Phone Unavailable Allergies, Adverse Reactions, [...] Blister (nonthermal), right great toe, sequela 906.2 Active 2016 Pelon Quach MD Late effect of superficial injury Confusion 298.9 Active Isabel Braun Unspecified psychosis URI - acute ICD-465.9 Inactive Erik Baptiste MD URI - acute ICD-465.9 Inactive Erik Baptiste MD Medication List Medication Instructions Start Date Stop Date Generic Name NDC Status Provider Patient Instruction EASY TOUCH ALCOHOL PREP MEDIUM 70 % PAD Use with each finger stick and insulin admin Dx: E11.9 ALCOHOL SWABS 54811369238 Active Jaycee Torrez APRN Active HUMALOG KWIKPEN 100 UNIT/ML SUBCUTANEOUS SOLUTION PEN-INJECTOR inject 10 units subcutaneously before meals also sliding scale INSULIN LISPRO 99490115285 Active Jaycee Torrez APRN Active NOVOLOG 100 UNIT/ML SUBCUTANEOUS SOLUTION 10 UNITS BID BEFORE BREAKFAST AND LUNCH INSULIN ASPART 27343372058 No Longer Active NICOLETTE Hitchcock Active NOVOLOG 100 UNIT/ML SUBCUTANEOUS SOLUTION 10 UNITS BEFORE SUPPER INSULIN ASPART 90389083576 No Longer Active NICOLETTE Hitchcock Active INVEGA 6 MG ORAL TABLET EXTENDED RELEASE 24 HOUR 1 po daily for schizophrenia PALIPERIDONE 07679373624 Active Pelon Quach MD Active LAMICTAL 25 MG ORAL TABLET 2 tabs by mouth twice a day LAMOTRIGINE 67707166285 No Longer Active Pelon Quach MD Active BACTROBAN 2 % EXTERNAL OINTMENT Apply to affected area BID 06/28 MUPIROCIN 10037712999 No Longer Active Pelon Quach MD Active BANOPHEN 25 MG ORAL TABLET 1 po every 6 hours PRN allergic reaction DIPHENHYDRAMINE HCL 87356178288 Active Pelon Quach MD Active INVEGA 6 MG ORAL TABLET EXTENDED RELEASE 24 HOUR 1 po daily for Schizophrenia PALIPERIDONE 27098287264 No Longer Active Pelon Quach MD Active TYLENOL 8 HOUR 650 MG ORAL TABLET EXTENDED RELEASE Take 1 tab po up to 3 times daily as needed ACETAMINOPHEN 39732690319 No Longer Active Pelon Quach MD Active IPRATROPIUM-ALBUTEROL 0.5-2.5 (3) MG/3ML INHALATION SOLUTION 1 neb treatment QID for cough Dx: J06.9 IPRATROPIUM-ALBUTEROL 18088178013 No Longer Active Pelon Quach MD Active BACTRIM DS 800-160 MG ORAL TABLET 1 tab by mouth twice daily 2016 TRIMETHOPRIM-SULFAMETHOXAZOLE 09967388107 No Longer Active Pelon Quach MD Active BACTRIM DS 800-160 MG ORAL TABLET 1 twice a day SULFAMETHOXAZOLE-TRIMETHOPRIM 75584754300 No Longer Active Pelon Quach MD Active IPRATROPIUM-ALBUTEROL 0.5-2.5 (3) MG/3ML INHALATION SOLUTION 1 neb treatment four times daily, for cough IPRATROPIUM-ALBUTEROL 15884824866 No Longer Active Jaycee Torrez APRN Active FUROSEMIDE 40 MG ORAL TABLET Take one by mouth daily FUROSEMIDE 10151764364 No Longer Active Jaycee Torrez APRN Active LANTUS 100 UNIT/ML SUBCUTANEOUS SOLUTION 20 SUBQ AT HS INSULIN GLARGINE 96164701159 Active Jaycee Torrez APRN Active LAMICTAL 25 MG ORAL TABLET 2 tabs po BID for convulsions LAMOTRIGINE 29491517531 Active Jaycee Torrez APRN Active LASIX 20 MG ORAL TABLET 1 tablet by mouth every morning for edema FUROSEMIDE 26081022445 Active Jaycee Torrez APRN Active BUSPIRONE HCL 10 MG ORAL TABLET 1 tab by mouth BID BUSPIRONE HCL 98614206884 Active Jaycee Torrez APRN Active ADULT ASPIRIN EC LOW STRENGTH 81 MG ORAL TABLET DELAYED RELEASE Take one by mouth daily ASPIRIN 46556457491 No Longer Active Pelon Quach MD Active ASPIRIN 81 MG ORAL TABLET 1 po qd ASPIRIN 40863722631 Active Pelon Quach MD Active ZOFRAN 4 MG ORAL TABLET 1 po q6hr PRN Nausea ONDANSETRON HCL 70397160553 No Longer Active Pelon Quach MD Active TYLENOL 325 MG ORAL TABLET 1-2 pills by mouth every 6 hours if needed for pain /fever ACETAMINOPHEN 20962038896 No Longer Active Pelon Quach MD Active INVEGA 6 MG ORAL TABLET EXTENDED RELEASE 24 HOUR 1 TAB ONCE DAILY PALIPERIDONE 55034199046 No Longer Active Carly Suggs Active TEGRETOL 200 MG ORAL TABLET by mouth twice a day CARBAMAZEPINE 44177275421 Active Taty Alvarado MD PhD Active FLOMAX 0.4 MG ORAL CAPSULE 1 Daily TAMSULOSIN HCL 51529004717 Active Marianelachandrika Juarez Active DILANTIN 100 MG ORAL CAPSULE Take one by mouth daily PHENYTOIN SODIUM EXTENDED 96945210422 No Longer Active Marianelachandrika Shankarronny Active DEPAKOTE SPRINKLES 125 MG ORAL CAPSULE DELAYED RELEASE SPRINKLE 4 capsules by mouth twice daily DIVALPROEX SODIUM 31980660346 No Longer Active Marianelachandrika Shankarida Active LAMICTAL 200 MG ORAL TABLET 1 BY MOUTH TWICE A DAY LAMOTRIGINE 81893928537 Active Marianela Raida Active LAMICTAL 100 MG ORAL TABLET by mouth twice a day LAMOTRIGINE 64064058783 No Longer Active Marianelachandrika Juarez Active LAMICTAL 150 MG ORAL TABLET by mouth twice a day LAMOTRIGINE 37409336983 No Longer Active Marianelachandrika Juarez Active DILANTIN 100 MG ORAL CAPSULE Take three by mouth daily PHENYTOIN SODIUM EXTENDED 80518500442 No Longer Active Marianela Juarez Active SENOKOT 8.6 MG ORAL TABLET take at bedtime SENNOSIDES 76498361212 Active Pelon Quach MD Active LIPITOR 20 MG ORAL TABLET take at bedtime ATORVASTATIN CALCIUM 23064261407 Active Glenn Thornton MD Active LISINOPRIL 2.5 MG ORAL TABLET Take one by mouth daily LISINOPRIL 16444702522 Emilie Thornton MD Active TRENTAL 400 MG CR-TABS by mouth twice a day PENTOXIFYLLINE 23749517020 Active Glenn Thornton MD Active KLOR-CON 10 10 MEQ ORAL TABLET EXTENDED RELEASE Take one by mouth daily POTASSIUM CHLORIDE 51642407162 Active Glenn Thornton MD Active DILANTIN 100 MG ORAL CAPSULE Take three by mouth daily DILANTIN 100 MG ORAL CAPSULE 331261 PHENYTOIN SODIUM EXTENDED Inactive LAMICTAL 150 MG ORAL TABLET by mouth twice a day LAMICTAL 150 MG ORAL TABLET 19831025 LAMOTRIGINE Inactive LAMICTAL 100 MG ORAL TABLET by mouth twice a day LAMICTAL 100 MG ORAL TABLET 19831024 LAMOTRIGINE Inactive DEPAKOTE SPRINKLES 125 MG ORAL CAPSULE DELAYED RELEASE SPRINKLE 4 capsules by mouth twice daily DEPAKOTE SPRINKLES 125 MG ORAL CAPSULE DELAYED RELEASE SPRINKLE 8197234 DIVALPROEX SODIUM Inactive DILANTIN 100 MG ORAL CAPSULE Take one by mouth daily DILANTIN 100 MG ORAL CAPSULE 213878 PHENYTOIN SODIUM EXTENDED Inactive INVEGA 6 MG ORAL TABLET EXTENDED RELEASE 24 HOUR 1 TAB ONCE DAILY INVEGA 6 MG ORAL TABLET EXTENDED RELEASE 24 HOUR PALIPERIDONE Inactive TYLENOL 325 MG ORAL TABLET 1-2 pills by mouth every 6 hours if needed for pain /fever TYLENOL 325 MG ORAL TABLET 893860 ACETAMINOPHEN Inactive ZOFRAN 4 MG ORAL TABLET 1 po q6hr PRN Nausea ZOFRAN 4 MG ORAL TABLET 981483 ONDANSETRON HCL Inactive ADULT ASPIRIN EC LOW STRENGTH 81 MG ORAL TABLET DELAYED RELEASE Take one by mouth daily ADULT ASPIRIN EC LOW STRENGTH 81 MG ORAL TABLET DELAYED RELEASE 581750 ASPIRIN Inactive FUROSEMIDE 40 MG ORAL TABLET Take one by mouth daily FUROSEMIDE 40 MG ORAL TABLET 688854 FUROSEMIDE Inactive BACTRIM DS 800-160 MG ORAL TABLET 1 twice a day BACTRIM DS 800-160 MG ORAL TABLET 776655 SULFAMETHOXAZOLE-TRIMETHOPRIM Inactive IPRATROPIUM-ALBUTEROL 0.5-2.5 (3) MG/3ML INHALATION SOLUTION 1 neb treatment QID for cough Dx: J06.9 IPRATROPIUM-ALBUTEROL 0.5-2.5 ( 3) MG/3ML INHALATION SOLUTION 3480375 IPRATROPIUM-ALBUTEROL Inactive TYLENOL 8 HOUR 650 MG [...] BID 06/28 BACTROBAN 2 % EXTERNAL OINTMENT 297570 MUPIROCIN Inactive LAMICTAL 25 MG ORAL TABLET 2 tabs by mouth twice a day LAMICTAL 25 MG ORAL TABLET 555598 LAMOTRIGINE Inactive NOVOLOG 100 UNIT/ML SUBCUTANEOUS SOLUTION 10 UNITS BEFORE SUPPER NOVOLOG 100 UNIT/ML SUBCUTANEOUS SOLUTION INSULIN ASPART Inactive NOVOLOG 100 UNIT/ML SUBCUTANEOUS SOLUTION 10 UNITS BID BEFORE BREAKFAST AND LUNCH NOVOLOG 100 UNIT/ML SUBCUTANEOUS SOLUTION INSULIN ASPART Inactive IPRATROPIUM-ALBUTEROL 0.5-2.5 (3) MG/3ML INHALATION SOLUTION 1 neb treatment four times daily, for cough IPRATROPIUM-ALBUTEROL 0.5- 2.5 (3) MG/3ML INHALATION SOLUTION 9847193 IPRATROPIUM-ALBUTEROL Inactive BACTRIM DS 800-160 MG ORAL TABLET 1 tab by mouth twice daily 2016 BACTRIM DS 800-160 MG ORAL TABLET 546436 TRIMETHOPRIM- SULFAMETHOXAZOLE Inactive Advance Directives Directive Description Start Date DURABLE POWER OF [employer]COMM[employer]CE MARKETING SPECIALIST FOR HEALTHCARE PERMISSION TO SHARE ADVANCED DIRECTIVE Vital Signs Date Name Value Unit Range Description blood pressure, diastolic 74 mm[Hg] BP daly [...] temperature weight E&M 177 [lb_av] Weight Measured blood pressure, diastolic 66 [...] temperature weight E&M 178.38 [lb_av] Weight Measured Diagnostic Results Date Name Value Unit Range Description Lab Report: Basic Metabolic Panel - Chemistry sodium, serum 127 mmol/L 659-097 3209/07/28 potassium, serum 5.3 mmol/L 3.5-5.2 chloride, serum 92 mmol/L 98-107 carbon dioxide, venous blood 32.4 mmol/L 21.0-32.0 blood glucose 182 mg/dL 65-110 calcium, serum 9.4 mg/dL 8.5-10.1 urea nitrogen, blood 14 mg/dL 7-18 creatinine, serum 0.94 mg/dL 0.60-1.30 Lab Report: CBC, Comp. Metabolic Panel - Chemistry sodium, serum 129 mmol/L 578-165 2295/07/12 carbon dioxide, venous blood 27.8 mmol/L 21.0-32.0 [...] 150 mg/dL cholesterol, target level 200 mg/dL Encounters Code Encounter Date Provider Facility CPT-49797 Level 4 Est. Patient 14:46:38 CDT Pelon Quach MD [facility] CPT-06320 Level 4 Est. Patient 08:43:11 CDT Pelon Quach MD [facility] CPT-39036 Level 4 Est. Patient 14:27:30 CDT Pelon Quach MD [facility] CPT-51724 Level 3 Est. Patient 10:32:17 CDT Jaycee Arell [facility]-36729 Level 3 Est. Patient 10:15:07 CDT Pelon Quach MD [facility] CPT-41671 Level 4 Est. Patient 09:30:54 CDT Pelon Quach MD [facility] CPT-77014 Level 4 Est. Patient 14:34:25 CDT Pelon Quach MD [facility] CPT-25659 Level 3 Est. Patient 11:51:35 WELDER MACHINE OPERATOR Rick Henson DO [facility] CPT-68137 Level 3 Est. Patient 12:13:33 WELDER MACHINE OPERATOR Erik Baptiste MD [facility]-99695 Level 3 Est. Patient 09:40:44 WELDER MACHINE OPERATOR Jaycee Torrez [facility] CPT-22996 Level 3 Est. Patient 09:36:32 WELDER MACHINE OPERATOR Jaycee Torrez [facility] CPT-67692 Level 4 Est. Patient 16:57:02 WELDER MACHINE OPERATOR Pelon Quach MD [facility] CPT-51512 Level 4 Est. Patient 22:19:34 CDT Pelon Quach MD [facility]-72029 Level 3 Est. Patient 00:34:41 CDT Pelon Quach MD [facility] CPT-22663 Level 4 Est. Patient 11:19:14 CDT Pelon Quach MD [facility] CPT-77384 Level 4 Est. Patient 16:43:30 WELDER MACHINE OPERATOR Pelon Quach MD [facility] CPT-00877 Level 4 Est. Patient 12:42:18 CDT Pelon Quach MD [facility] CPT-16308 Level 4 Est. Patient 11:52:20 CDT Pelon Quach MD [facility] CPT-68768 Level 4 Est. Patient 13:59:46 CDT Pelon Quach MD [facility] CPT-98729 Level 4 Est. Patient 15:10:48 CDT Pelon Quach MD [facility] CPT-82727 Level 4 Est. Patient 17:13:06 CDT Pelon Quach MD [facility] CPT-61569 Level 4 Est. Patient 18:47:47 CDT Pelon Quach MD [facility] CPT-90138 Level 3 Est. Patient 21:01:27 CDT Pelon Quach MD [facility] CPT-66664 Level 3 Est. Patient 14:07:03 CDT Taty Alvarado MD [facility] CPT-94414 Level 3 New Patient 21:39:52 WELDER MACHINE OPERATOR Pelon Quach MD [facility] CPT-47668 Level 3 Est. Patient 14:28:44 CDT Glenn Thornton MD [facility] CPT-55688 Level 3 Est. Patient 16:35:00 CDT Glenn Thornton MD [facility] CPT-89221 Level 4 New Patient 17:06:27 CDT Glenn Thornton MD [facility] [place] Procedures Code Procedure Name Date Entry Date Standard Description CPT-G0438 Initial Annual Wellness Exam 09:30:54 CDT CPT-06256 Prevnar 13 Intramuscular Suspension 14:34:25 CDT 12/27 CPT-12734 Chest 2V Frontal and Lat - XRAY USE ONLY 11:56:13 WELDER MACHINE OPERATOR CPT-40627 Cystoscopy 14:28:44 CDT CPT-13775 Bladder Scan 14:28:44 CDT CPT-38636 Indwelling Cath Change 17:06:27 CDT CPT-80209 Cystoscopy 17:06:27 CDT
--- OUTSIDE RECORDS SUMMARY | 2018-06-22 11:40 | XMS REPORT | Clinical Summary ---
Author Author Admin, ONESIMO Organization [facility] [place] Address Unknown Phone Unavailable Allergies, Adverse Reactions, [...] 6 hours PRN allergic reaction DIPHENHYDRAMINE HCL 69716744326 Active NICOLETTE Hitchcock Active INVEGA 6 MG ORAL [id number] 1 po daily for Schizophrenia PALIPERIDONE 37563562377 No Longer Active Pelon Quach MD Active TYLENOL 8 HOUR 650 MG ORAL CR-TABS Take 1 tab po up to 3 times daily as needed ACETAMINOPHEN 75652851879 No Longer Active Pelon Quach MD Active IPRATROPIUM-ALBUTEROL 0.5-2.5 (3) MG/3ML INH SOLN 1 neb treatment QID for cough Dx: J06.9 IPRATROPIUM-ALBUTEROL 74080074418 No Longer Active Pelon Quach MD Active BACTRIM DS 800-160 MG TAB 1 tab by mouth twice daily TRIMETHOPRIM-SULFAMETHOXAZOLE 30206896913 No Longer Active Pelon Quach MD Active BACTROBAN 2 % OINTMENT Apply to affected area BID MUPIROCIN 40588261544 Active Jaycee Garcia APRN Active BACTRIM DS 800-160 MG TABS 1 twice a day SULFAMETHOXAZOLE-TRIMETHOPRIM 98048442082 No Longer Active Pelon Quach MD Active IPRATROPIUM-ALBUTEROL 0.5-2.5 (3) MG/3ML SOLN 1 neb treatment four times daily , for cough IPRATROPIUM-ALBUTEROL 83962187460 No Longer Active Jaycee Garcia APRN Active FUROSEMIDE 40 MG TABS Take one by mouth daily FUROSEMIDE 79042439853 No Longer Active Jaycee Garcia APRN Active LANTUS 100 UNIT/ML SC SOLN 20 SUBQ AT HS INSULIN GLARGINE 89682000565 Active Jaycee Garcia APRN Active LAMICTAL 25 MG ORAL TABS 2 tabs po BID for convulsions LAMOTRIGINE 61240971627 Active Jaycee Garcia APRN Active LASIX 20 MG TAB 1 tablet by mouth every morning for edema FUROSEMIDE 89438347469 Active Jaycee Garcia APRN Active BUSPIRONE HCL 10 MG TABS 1 tab by mouth BID BUSPIRONE HCL 01658418720 Active Jaycee Garcia DRESS MARKER Active NOVOLOG 100 UNIT/ML SC SOLN 10 UNITS BEFORE SUPPER INSULIN ASPART 96140368000 Active Jaycee Garcia APRN Active NOVOLOG 100 UNIT/ML SC SOLN 10 UNITS BID BEFORE BREAKFAST AND LUNCH INSULIN ASPART 72901527107 Active Jaycee Garcia APRN Active LAMICTAL 25 MG TABS 2 tabs by mouth twice a day LAMOTRIGINE 76030207585 Active Pelon Quach MD Active ADULT ASPIRIN EC LOW STRENGTH 81 MG TBEC Take one by mouth daily ASPIRIN 04703734056 No Longer Active Pelon Quach MD Active ASPIRIN 81 MG ORAL TABS 1 po qd ASPIRIN 73895933184 Active Pelon Quach MD Active ZOFRAN 4 MG TABS 1 po q6hr PRN Nausea ONDANSETRON HCL 91438249680 No Longer Active Pelon Quach MD Active TYLENOL 325 MG TAB 1-2 pills by mouth every 6 hours if needed for pain/fever ACETAMINOPHEN 65945564866 No Longer Active Pelon Quach MD Active INVEGA 6 MG ORAL [id number] 1 TAB ONCE DAILY PALIPERIDONE 57178876379 No Longer Active Carly Suggs Active TEGRETOL 200 MG TABS by mouth twice a day CARBAMAZEPINE 36484942686 Active Taty Alvarado MD PhD Active FLOMAX 0.4 MG CAPS 1 Daily TAMSULOSIN HCL 47987844183 Active Marianela Juarez Active DILANTIN 100 MG CAPS Take one by mouth daily PHENYTOIN SODIUM EXTENDED 88929753432 No Longer Active Marianela Juarez Active DEPAKOTE SPRINKLES 125 MG CPSP 4 capsules by mouth twice daily DIVALPROEX SODIUM 73980871241 No Longer Active Marianela Juarez Active LAMICTAL 200 MG ORAL TABS 1 BY MOUTH TWICE A DAY LAMOTRIGINE 83675830635 Active Marianela Juarez Active LAMICTAL 100 MG TABS by mouth twice a day LAMOTRIGINE 70204335040 No Longer Active Marianela Juarez Active LAMICTAL 150 MG TABS by mouth twice a day LAMOTRIGINE 37985466159 No Longer Active Marianela Juarez Active DILANTIN 100 MG CAPS Take three by mouth daily PHENYTOIN SODIUM EXTENDED 42670890889 No Longer Active Marianela Shankarronny Active SENOKOT 8.6 MG TABS take at bedtime SENNOSIDES 07128434922 Active Glenn Thornton MD Active LIPITOR 20 MG TABS take at bedtime ATORVASTATIN CALCIUM 35462417906 Active Glenn Thornton MD Active LISINOPRIL 2.5 MG TABS Take one by mouth daily LISINOPRIL 66759075244 Active Glenn Thornotn MD Active TRENTAL 400 MG CR-TABS by mouth twice a day PENTOXIFYLLINE 36148145096 Active Glenn Thornton MD Active KLOR-CON 10 10 MEQ CR-TABS Take one by mouth daily POTASSIUM CHLORIDE 76488340387 Active Glenn Thornton MD Active DILANTIN 100 MG CAPS Take three by mouth daily DILANTIN 100 MG CAPS 870894 PHENYTOIN SODIUM EXTENDED Inactive LAMICTAL 150 MG TABS by mouth twice a day LAMICTAL 150 MG TABS 884530 LAMOTRIGINE Inactive LAMICTAL 100 MG TABS by mouth twice a day LAMICTAL 100 MG TABS 19831024 LAMOTRIGINE Inactive DEPAKOTE SPRINKLES 125 MG CPSP 4 capsules by mouth twice daily DEPAKOTE SPRINKLES 125 MG CPSP 9778288 DIVALPROEX SODIUM Inactive DILANTIN 100 MG CAPS Take one by mouth daily DILANTIN 100 MG CAPS 459387 PHENYTOIN SODIUM EXTENDED Inactive INVEGA 6 MG ORAL [id number] 1 TAB ONCE DAILY INVEGA 6 MG ORAL [id number] PALIPERIDONE Inactive TYLENOL 325 MG TAB 1-2 pills by mouth every 6 hours if needed for pain/fever TYLENOL 325 MG TAB 957060 ACETAMINOPHEN Inactive ZOFRAN 4 MG TABS 1 po q6hr PRN Nausea ZOFRAN 4 MG TABS 272450 ONDANSETRON HCL Inactive ADULT ASPIRIN EC LOW STRENGTH 81 MG TBEC Take one by mouth daily ADULT ASPIRIN EC LOW STRENGTH 81 MG TBEC 259044 ASPIRIN Inactive FUROSEMIDE 40 MG TABS Take one by mouth daily FUROSEMIDE 40 MG TABS 614425 FUROSEMIDE Inactive BACTRIM DS 800-160 MG TABS 1 twice a day BACTRIM DS 800-160 MG TABS 416789 SULFAMETHOXAZOLE-TRIMETHOPRIM Inactive IPRATROPIUM-ALBUTEROL 0.5-2.5 (3) MG/3ML INH SOLN 1 neb treatment QID for cough Dx: J06.9 IPRATROPIUM-ALBUTEROL 0.5-2.5 (3) MG/ 3ML INH SOLN 2858974 IPRATROPIUM-ALBUTEROL Inactive TYLENOL 8 HOUR 650 MG ORAL CR-TABS Take 1 tab po up to 3 times daily as needed TYLENOL 8 HOUR 650 MG ORAL CR-TABS ACETAMINOPHEN Inactive INVEGA 6 MG ORAL [id number] 1 po daily for Schizophrenia INVEGA 6 MG ORAL [id number] PALIPERIDONE Inactive IPRATROPIUM-ALBUTEROL 0.5-2.5 (3) MG/3ML SOLN 1 neb treatment four times daily , for cough IPRATROPIUM-ALBUTEROL 0.5-2.5 (3) MG/3ML SOLN 6480216 IPRATROPIUM-ALBUTEROL Inactive BACTRIM DS 800-160 MG TAB 1 tab by mouth twice daily BACTRIM DS 800-160 MG TAB 19821119 TRIMETHOPRIM-SULFAMETHOXAZOLE Inactive Advance Directives Directive Description Start Date DURABLE POWER OF DRAFTER CIVIL (CAD) FOR HEALTHCARE PERMISSION TO SHARE ADVANCED DIRECTIVE [...] Panel - Chemistry sodium, serum 127 mmol/L 832-871 7528/07/28 potassium, serum 5.3 mmol/L 3.5-5.2 chloride, serum 92 mmol/L 98-107 carbon dioxide, venous blood 32.4 mmol/L 21.0-32.0 blood glucose 182 mg/dL 65-110 calcium, serum 9.4 mg/dL 8.5-10.1 urea nitrogen, blood 14 mg/dL 7-18 creatinine, serum 0.94 mg/dL 0.60-1.30 Lab Report: CBC, Comp. Metabolic Panel - Chemistry sodium, serum 129 mmol/L 275-850 5370/07/12 carbon dioxide, venous blood 27.8 mmol/L 21.0-32.0 [...] hemoglobin 7.0 % 4.3-6.0 Office Visit: 3 MO F/U - Basic LDL target level 100 mg/dL Office Visit: 3 MO F/U - Chemistry cholesterol, target level 200 mg/dL triglyceride, target level 150 mg/dL HDL cholesterol, serum, target level 40 mg/dL Office Visit: 6 MO CHECK UP [...] mg/dL Encounters Code Encounter Date Provider Facility CPT-50704 Level 4 Est. Patient 08:43:11 CDT Pelon Quach MD [facility] CPT-64999 Level 4 Est. Patient 14:27:30 CDT Pelon Quach MD [facility] CPT-64896 Level 3 Est. Patient 10:32:17 CDT Jaycee Garcia [facility] CPT-13131 Level 3 Est. Patient 10:15:07 CDT Pelon Quach MD [facility] CPT-05205 Level 4 Est. Patient 09:30:54 CDT Pelon Quach MD [facility] CPT-13191 Level 4 Est. Patient 14:34:25 CDT Pelon Quach MD [facility] CPT-82679 Level 3 Est. Patient 11:51:35 MANAGER INTERN Rick Henson DO [facility] CPT-31023 Level 3 Est. Patient 12:13:33 MANAGER INTERN Erik Baptiste MD [facility] CPT-47085 Level 3 Est. Patient 09:40:44 MANAGER INTERN Jaycee Garcia [facility] CPT-53900 Level 3 Est. Patient 09:36:32 MANAGER INTERN Jaycee Garcia [facility] CPT-15212 Level 4 Est. Patient 16:57:02 MANAGER INTERN Pelon Quach MD [facility]-04140 Level 4 Est. Patient 22:19:34 CDT Pelon Quach MD [facility]-70637 Level 3 Est. Patient 00:34:41 CDT Pelon Quach MD [facility]-40200 Level 4 Est. Patient 11:19:14 CDT Pelon Quach MD [facility]-86413 Level 4 Est. Patient 16:43:30 MANAGER INTERN Pelon Quach MD [facility]-16369 Level 4 Est. Patient 12:42:18 CDT Pleon Quach MD [facility]-37772 Level 4 Est. Patient 11:52:20 CDT Pelon Quach MD [facility]-05999 Level 4 Est. Patient 13:59:46 CDT Pelon Quach MD [facility]-76388 Level 4 Est. Patient 15:10:48 CDT Pelon Quach MD [facility]-73698 Level 4 Est. Patient 17:13:06 CDT Pelon Quach MD [facility]-89892 Level 4 Est. Patient 18:47:47 CDT Pelon Quach MD [facility]-28544 Level 3 Est. Patient 21:01:27 CDT Pelon Quach MD [facility] CPT-41914 Level 3 Est. Patient 14:07:03 CDT Taty Alvarado MD PhD [facility]-01740 Level 3 New Patient 21:39:52 MANAGER INTERN Pelon Quach MD [facility]-53464 Level 3 Est. Patient 14:28:44 CDT Glenn Thornton MD [facility]-77336 Level 3 Est. Patient 16:35:00 CDT Glenn Thornton MD [facility] [place] CPT-13978 Level 4 New Patient 17:06:27 CDT Glenn Thornton MD [facility] [place] Procedures Code Procedure Name Date Entry Date Standard Description CPT-G0438 Initial Annual Wellness Exam 09:30:54 CDT CPT-85143 Prevnar 13 Intramuscular Suspension 14:34:25 CDT 12/27 CPT-30149 Chest 2V Frontal and Lat - XRAY USE ONLY 11:56:13 MANAGER INTERN CPT-26288 Cystoscopy 14:28:44 CDT CPT-45342 Bladder Scan 14:28:44 CDT CPT-82686 Indwelling Cath Change 17:06:27 CDT CPT-17246 Cystoscopy 17:06:27 CDT
--- OUTSIDE RECORDS SUMMARY | 2018-06-22 11:41 | XMS REPORT | Clinical Summary ---
Author Author Admin, ONESIMO Organization [facility] [employer] [place] Address Unknown Phone Unavailable Allergies, Adverse Reactions, Alerts Allergy Name Reaction Description Start Date Severity Status Provider No Known Allergies Carly Suggs Conditions or Problems Problem Name Problem Code Onset Date Status Entry Date Provider Comment Standard Description Annotate History of ANXIETY 300.00 Active Glenn Thornton MD Anxiety state, unspecified HYPERTENSION 401.9 Active Glenn hTornton MD Unspecified essential hypertension SEIZURE DISORDER 780.39 [...] MG TABS 1 twice a day SULFAMETHOXAZOLE-TRIMETHOPRIM 14191181482 No Longer Active Pelon Quach MD Active IPRATROPIUM-ALBUTEROL 0.5-2.5 (3) MG/3ML INH SOLN 1 neb treatment QID for cough Dx: J06.9 IPRATROPIUM-ALBUTEROL 78812146245 Active Jaycee Garcia APRN Active IPRATROPIUM-ALBUTEROL 0.5-2.5 (3) MG/3ML SOLN 1 neb treatment four times daily , for cough IPRATROPIUM-ALBUTEROL 95287666162 No Longer Active Jaycee Jose VICTORINO Active TYLENOL 8 HOUR 650 MG ORAL CR-TABS Take 1 tab po up to 3 times daily as needed ACETAMINOPHEN 27220283963 Active Jaycee Garcia APRN Active FUROSEMIDE 40 MG TABS Take one by mouth daily FUROSEMIDE 01164374597 No Longer Active Jaycee Jose VICTORINO Active LANTUS 100 UNIT/ML SC SOLN 20 SUBQ AT HS INSULIN GLARGINE 24507429163 Active Jaycee Garcia APRN Active LAMICTAL 25 MG ORAL TABS 2 tabs po BID for convulsions LAMOTRIGINE 13579736876 Active Jaycee Garcia APRN Active INVEGA 6 MG ORAL [id number] 1 po daily for Schizophrenia PALIPERIDONE 54978889717 Active Jaycee Garcia APRN Active LASIX 20 MG TAB 1 tablet by mouth every morning for edema FUROSEMIDE 13956340195 Active Jaycee Garcia APRN Active BUSPIRONE HCL 10 MG TABS 1 tab by mouth BID BUSPIRONE HCL 38351119477 Active Jaycee Jose VICTORINO Active NOVOLOG 100 UNIT/ML SC SOLN 10 UNITS BEFORE SUPPER INSULIN ASPART 81016477773 Active Jaycee Garcia APRN Active NOVOLOG 100 UNIT/ML SC SOLN 10 UNITS BID BEFORE BREAKFAST AND LUNCH INSULIN ASPART 22336513743 Active Jaycee Garcia APRN Active LAMICTAL 25 MG TABS 2 tabs by mouth twice a day LAMOTRIGINE 85471157526 Active Pelon Quach MD Active ADULT ASPIRIN EC LOW STRENGTH 81 MG TBEC Take one by mouth daily ASPIRIN 28240828200 No Longer Active Pelon Quach MD Active ASPIRIN 81 MG ORAL TABS 1 po qd ASPIRIN 95983050178 Active Pelon Quach MD Active ZOFRAN 4 MG TABS 1 po q6hr PRN Nausea ONDANSETRON HCL 82838365340 No Longer Active Pelon Quach MD Active TYLENOL 325 MG TAB 1-2 pills by mouth every 6 hours if needed for pain/fever ACETAMINOPHEN 68431924565 No Longer Active Pelon Quach MD Active INVEGA 6 MG ORAL [id number] 1 TAB ONCE DAILY PALIPERIDONE 75806044086 No Longer Active Carly Suggs Active TEGRETOL 200 MG TABS by mouth twice a day CARBAMAZEPINE 48410940971 Active Taty Alvarado MD PhD Active FLOMAX 0.4 MG CAPS 1 Daily TAMSULOSIN HCL 22995619657 Active Marianelachandrika Juarez Active DILANTIN 100 MG CAPS Take one by mouth daily PHENYTOIN SODIUM EXTENDED 85227497929 No Longer Active Marianelachandrika Shankarronny Active DEPAKOTE SPRINKLES 125 MG CPSP 4 capsules by mouth twice daily DIVALPROEX SODIUM 40483648023 No Longer Active Marianelachandrika Shankarida Active LAMICTAL 200 MG ORAL TABS 1 BY MOUTH TWICE A DAY LAMOTRIGINE 66487603681 Active Marianela Raida Active LAMICTAL 100 MG TABS by mouth twice a day LAMOTRIGINE 46031031008 No Longer Active Marianela Raida Active LAMICTAL 150 MG TABS by mouth twice a day LAMOTRIGINE 12948279707 No Longer Active Marianelachandrika Juarez Active DILANTIN 100 MG CAPS Take three by mouth daily PHENYTOIN SODIUM EXTENDED 57643417059 No Longer Active Marianelachandrika Shankarida Active SENOKOT 8.6 MG TABS take at bedtime SENNOSIDES 54483805025 Active Glenn Thornton MD Active LIPITOR 20 MG TABS take at bedtime ATORVASTATIN CALCIUM 80999806035 Active Glenn Thornton MD Active LISINOPRIL 2.5 MG TABS Take one by mouth daily LISINOPRIL 59141220326 Active Glenn Thornton MD Active TRENTAL 400 MG CR-TABS by mouth twice a day PENTOXIFYLLINE 97602333259 Active Glenn Thornton MD Active KLOR-CON 10 10 MEQ CR-TABS Take one by mouth daily POTASSIUM CHLORIDE 15293054156 Active J Ian Thornton MD Active DILANTIN 100 MG CAPS Take three by mouth daily DILANTIN 100 MG CAPS 805925 PHENYTOIN SODIUM EXTENDED Inactive LAMICTAL 150 MG TABS by mouth twice a day LAMICTAL 150 MG TABS 19831025 LAMOTRIGINE Inactive LAMICTAL 100 MG TABS by mouth twice a day LAMICTAL 100 MG TABS 19831024 LAMOTRIGINE Inactive DEPAKOTE SPRINKLES 125 MG CPSP 4 capsules by mouth twice daily DEPAKOTE SPRINKLES 125 MG CPSP 0145957 DIVALPROEX SODIUM Inactive DILANTIN 100 MG CAPS Take one by mouth daily DILANTIN 100 MG CAPS 294785 PHENYTOIN SODIUM EXTENDED Inactive INVEGA 6 MG ORAL [id number] 1 TAB ONCE DAILY INVEGA 6 MG ORAL [id number] PALIPERIDONE Inactive TYLENOL 325 MG TAB 1-2 pills by mouth every 6 hours if needed for pain/fever TYLENOL 325 MG TAB 000990 ACETAMINOPHEN Inactive ZOFRAN 4 MG TABS 1 po q6hr PRN Nausea ZOFRAN 4 MG TABS 076757 ONDANSETRON HCL Inactive ADULT ASPIRIN EC LOW STRENGTH 81 MG TBEC Take one by mouth daily ADULT ASPIRIN EC LOW STRENGTH 81 MG TBEC 870866 ASPIRIN Inactive FUROSEMIDE 40 MG TABS Take one by mouth daily FUROSEMIDE 40 MG TABS 038264 FUROSEMIDE Inactive BACTRIM DS 800-160 MG TABS 1 twice a day BACTRIM DS 800-160 MG TABS 044650 SULFAMETHOXAZOLE-TRIMETHOPRIM Inactive IPRATROPIUM-ALBUTEROL 0.5-2.5 (3) MG/3ML SOLN 1 neb treatment four times daily , for cough IPRATROPIUM-ALBUTEROL 0.5-2.5 (3) MG/3ML SOLN 2670057 IPRATROPIUM-ALBUTEROL Inactive Advance Directives Directive Description Start Date DURABLE POWER OF CISCO ADMINISTRATOR FOR HEALTHCARE PERMISSION TO SHARE ADVANCED DIRECTIVE [...] E&M - 3141-9 170 [lb_av] Weight Measured Diagnostic Results Date Name [...] serum, fasting 37 mg/dL Office Visit: 3 MONTH FU - [...] mg/dL Encounters Code Encounter Date Provider Facility CPT-74163 Level 4 Est. Patient 09:30:54 CDT Pelon Quach MD [facility] CPT-10121 Level 4 Est. Patient 14:34:25 CDT Pelon Quach MD [facility] CPT-07856 Level 3 Est. Patient 11:51:35 MANUFACTURING FINANCE MANAGER Rick Henson DO [facility] CPT-87891 Level 3 Est. Patient 12:13:33 MANUFACTURING FINANCE MANAGER Erik Baptiste MD [facility] CPT-52477 Level 3 Est. Patient 09:40:44 MANUFACTURING FINANCE MANAGER Jaycee Garcia [facility] CPT-37511 Level 3 Est. Patient 09:36:32 MANUFACTURING FINANCE MANAGER Jaycee Garcia [facility] CPT-55386 Level 4 Est. Patient 16:57:02 MANUFACTURING FINANCE MANAGER Pelon Quach MD [facility]-78213 Level 4 Est. Patient 22:19:34 CDT Pelon Quach MD [facility]-50820 Level 3 Est. Patient 00:34:41 CDT Pelon Quach MD [facility]-79745 Level 4 Est. Patient 11:19:14 CDT Pelon Quach MD [facility]-19297 Level 4 Est. Patient 16:43:30 MANUFACTURING FINANCE MANAGER Pelon Quach MD [facility]-03938 Level 4 Est. Patient 12:42:18 CDT Pelon Quach MD [facility]-84275 Level 4 Est. Patient 11:52:20 CDT Pelon Quach MD [facility]-74132 Level 4 Est. Patient 13:59:46 CDT Pelon Quach MD [facility]-47145 Level 4 Est. Patient 15:10:48 CDT Pelon Quach MD [facility]-79616 Level 4 Est. Patient 17:13:06 CDT Pelon Quach MD [facility]-59186 Level 4 Est. Patient 18:47:47 CDT Pelon Quach MD [facility]-38957 Level 3 Est. Patient 21:01:27 CDT Pelon Quach MD [facility] CPT-42283 Level 3 Est. Patient 14:07:03 CDT Taty Alvarado MD PhD [facility] CPT-99963 Level 3 New Patient 21:39:52 MANUFACTURING FINANCE MANAGER Pelon Quach MD [facility]-91488 Level 3 Est. Patient 14:28:44 CDT Glenn Thornton MD [facility]-26552 Level 3 Est. Patient 16:35:00 CDT Glenn Thornton MD [facility] [place] CPT-50139 Level 4 New Patient 17:06:27 CDT Glenn Thornton MD [facility] [place] Procedures Code Procedure Name Date Entry Date Standard Description CPT-G0438 Initial Annual Wellness Exam 09:30:54 CDT CPT-05779 Prevnar 13 Intramuscular Suspension 14:34:25 CDT 12/27 CPT-38264 Chest 2V Frontal and Lat - XRAY USE ONLY 11:56:13 MANUFACTURING FINANCE MANAGER CPT-58584 Cystoscopy 14:28:44 CDT CPT-85811 Bladder Scan 14:28:44 CDT CPT-66755 Indwelling Cath Change 17:06:27 CDT CPT-11573 Cystoscopy 17:06:27 CDT
--- OUTSIDE RECORDS SUMMARY | 2018-06-22 11:42 | XMS REPORT | Clinical Summary ---
Author Author Admin, ONESIMO Organization [facility] [employer] [place] Address Unknown Phone Unavailable Allergies, Adverse Reactions, [...] Quach MD Late effect of superficial injury URI - acute ICD-465.9 Inactive Erik Baptiste MD URI - acute ICD-465.9 Inactive Erik Baptiste MD Medication List Medication Instructions Start Date Stop Date Generic Name NDC Status Provider Patient Instruction EASY TOUCH ALCOHOL PREP MEDIUM 70 % PAD Use with each finger stick and insulin admin Dx: E11.9 ALCOHOL SWABS [id number] Active Jaycee Torrez APRN Active HUMALOG KWIKPEN 100 UNIT/ML SUBCUTANEOUS SOLUTION PEN-INJECTOR inject 10 units subcutaneously before meals also sliding scale INSULIN LISPRO 36688013616 Active Jaycee Torrez APRN Active NOVOLOG 100 UNIT/ML SUBCUTANEOUS SOLUTION 10 UNITS BID BEFORE BREAKFAST AND LUNCH INSULIN ASPART 80283583028 No Longer Active NICOLETTE Hitchcock Active NOVOLOG 100 UNIT/ML SUBCUTANEOUS SOLUTION 10 UNITS BEFORE SUPPER INSULIN ASPART 08180013207 No Longer Active NICOLETTE Hitchcock Active INVEGA 6 MG ORAL TABLET EXTENDED RELEASE 24 HOUR 1 po daily for schizophrenia PALIPERIDONE 17743988737 Active Pelon Quach MD Active LAMICTAL 25 MG ORAL TABLET 2 tabs by mouth twice a day LAMOTRIGINE 03519671917 No Longer Active Pelon Quach MD Active BACTROBAN 2 % EXTERNAL OINTMENT Apply to affected area BID 06/28 MUPIROCIN 42321072896 No Longer Active Pelon Quach MD Active BANOPHEN 25 MG ORAL TABLET 1 po every 6 hours PRN allergic reaction DIPHENHYDRAMINE HCL 07907694874 Active NICOLETTE Hitchcock Active INVEGA 6 MG ORAL TABLET EXTENDED RELEASE 24 HOUR 1 po daily for Schizophrenia PALIPERIDONE 62052650073 No Longer Active Pelon Quach MD Active TYLENOL 8 HOUR 650 MG ORAL TABLET EXTENDED RELEASE Take 1 tab po up to 3 times daily as needed ACETAMINOPHEN 99238867026 No Longer Active Pelon Quach MD Active IPRATROPIUM-ALBUTEROL 0.5-2.5 (3) MG/3ML INHALATION SOLUTION 1 neb treatment QID for cough Dx: J06.9 IPRATROPIUM-ALBUTEROL 12131085561 No Longer Active Pelon Quach MD Active BACTRIM DS 800-160 MG ORAL TABLET 1 tab by mouth twice daily 2016 TRIMETHOPRIM-SULFAMETHOXAZOLE 82130765773 No Longer Active Pelon Quach MD Active BACTRIM DS 800-160 MG ORAL TABLET 1 twice a day SULFAMETHOXAZOLE-TRIMETHOPRIM 38973937341 No Longer Active Pelon Quach MD Active IPRATROPIUM-ALBUTEROL 0.5-2.5 (3) MG/3ML INHALATION SOLUTION 1 neb treatment four times daily, for cough IPRATROPIUM-ALBUTEROL 63074953983 No Longer Active Jaycee Torrez APRN Active FUROSEMIDE 40 MG ORAL TABLET Take one by mouth daily FUROSEMIDE 94516990227 No Longer Active Jaycee Torrez APRN Active LANTUS 100 UNIT/ML SUBCUTANEOUS SOLUTION 20 SUBQ AT HS INSULIN GLARGINE 94642996303 Active Jaycee Torrez APRN Active LAMICTAL 25 MG ORAL TABLET 2 tabs po BID for convulsions LAMOTRIGINE 79521037935 Active Jaycee Torrez APRN Active LASIX 20 MG ORAL TABLET 1 tablet by mouth every morning for edema FUROSEMIDE 19988399772 Active Jaycee Torrez APRN Active BUSPIRONE HCL 10 MG ORAL TABLET 1 tab by mouth BID BUSPIRONE HCL 45646981674 Active Jaycee Torrez APRN Active ADULT ASPIRIN EC LOW STRENGTH 81 MG ORAL TABLET DELAYED RELEASE Take one by mouth daily ASPIRIN 87322897894 No Longer Active Pelon Quach MD Active ASPIRIN 81 MG ORAL TABLET 1 po qd ASPIRIN 47147040822 Active Pelon Quach MD Active ZOFRAN 4 MG ORAL TABLET 1 po q6hr PRN Nausea ONDANSETRON HCL 44170608932 No Longer Active Pelon Quach MD Active TYLENOL 325 MG ORAL TABLET 1-2 pills by mouth every 6 hours if needed for pain /fever ACETAMINOPHEN 52842784341 No Longer Active Pelon Quach MD Active INVEGA 6 MG ORAL TABLET EXTENDED RELEASE 24 HOUR 1 TAB ONCE DAILY PALIPERIDONE 23922009774 No Longer Active Carly Suggs Active TEGRETOL 200 MG ORAL TABLET by mouth twice a day CARBAMAZEPINE 10104754835 Active Taty Alvarado MD PhD Active FLOMAX 0.4 MG ORAL CAPSULE 1 Daily TAMSULOSIN HCL 98569709875 Active Marianela Juarez Active DILANTIN 100 MG ORAL CAPSULE Take one by mouth daily PHENYTOIN SODIUM EXTENDED 65577146474 No Longer Active Marianelachandrika Juarez Active DEPAKOTE SPRINKLES 125 MG ORAL CAPSULE DELAYED RELEASE SPRINKLE 4 capsules by mouth twice daily DIVALPROEX SODIUM 20631792638 No Longer Active Marianela Juarez Active LAMICTAL 200 MG ORAL TABLET 1 BY MOUTH TWICE A DAY LAMOTRIGINE 95210924600 Active Marianelachandrika Juarez Active LAMICTAL 100 MG ORAL TABLET by mouth twice a day LAMOTRIGINE 88470681954 No Longer Active Marianelachandrika Juarez Active LAMICTAL 150 MG ORAL TABLET by mouth twice a day LAMOTRIGINE 80495715758 No Longer Active Marianela Juarez Active DILANTIN 100 MG ORAL CAPSULE Take three by mouth daily PHENYTOIN SODIUM EXTENDED 93308156705 No Longer Active Marianela Juarez Active SENOKOT 8.6 MG ORAL TABLET take at bedtime SENNOSIDES 09513851127 Active Pelon Quach MD Active LIPITOR 20 MG ORAL TABLET take at bedtime ATORVASTATIN CALCIUM 57499976139 Active Glenn Thornton MD Active LISINOPRIL 2.5 MG ORAL TABLET Take one by mouth daily LISINOPRIL 07636750826 Active Glenn Thornton MD Active TRENTAL 400 MG CR-TABS by mouth twice a day PENTOXIFYLLINE 49426296039 Active Glenn Thornton MD Active KLOR-CON 10 10 MEQ ORAL TABLET EXTENDED RELEASE Take one by mouth daily POTASSIUM CHLORIDE 42694274806 Active Glenn Thornton MD Active DILANTIN 100 MG ORAL CAPSULE Take three by mouth daily DILANTIN 100 MG ORAL CAPSULE 674088 PHENYTOIN SODIUM EXTENDED Inactive LAMICTAL 150 MG ORAL TABLET by mouth twice a day LAMICTAL 150 MG ORAL TABLET 340902 LAMOTRIGINE Inactive LAMICTAL 100 MG ORAL TABLET by mouth twice a day LAMICTAL 100 MG ORAL TABLET 389450 LAMOTRIGINE Inactive DEPAKOTE SPRINKLES 125 MG ORAL CAPSULE DELAYED RELEASE SPRINKLE 4 capsules by mouth twice daily DEPAKOTE SPRINKLES 125 MG ORAL CAPSULE DELAYED RELEASE SPRINKLE 0472552 DIVALPROEX SODIUM Inactive DILANTIN 100 MG ORAL CAPSULE Take one by mouth daily DILANTIN 100 MG ORAL CAPSULE 592371 PHENYTOIN SODIUM EXTENDED Inactive INVEGA 6 MG ORAL TABLET EXTENDED RELEASE 24 HOUR 1 TAB ONCE DAILY INVEGA 6 MG ORAL TABLET EXTENDED RELEASE 24 HOUR PALIPERIDONE Inactive TYLENOL 325 MG ORAL TABLET 1-2 pills by mouth every 6 hours if needed for pain /fever TYLENOL 325 MG ORAL TABLET 608075 ACETAMINOPHEN Inactive ZOFRAN 4 MG ORAL TABLET 1 po q6hr PRN Nausea ZOFRAN 4 MG ORAL TABLET 371675 ONDANSETRON HCL Inactive ADULT ASPIRIN EC LOW STRENGTH 81 MG ORAL TABLET DELAYED RELEASE Take one by mouth daily ADULT ASPIRIN EC LOW STRENGTH 81 MG ORAL TABLET DELAYED RELEASE 506344 ASPIRIN Inactive FUROSEMIDE 40 MG ORAL TABLET Take one by mouth daily FUROSEMIDE 40 MG ORAL TABLET 355643 FUROSEMIDE Inactive BACTRIM DS 800-160 MG ORAL TABLET 1 twice a day BACTRIM DS 800-160 MG ORAL TABLET 326050 SULFAMETHOXAZOLE-TRIMETHOPRIM Inactive IPRATROPIUM-ALBUTEROL 0.5-2.5 (3) MG/3ML INHALATION SOLUTION 1 neb treatment QID for cough Dx: J06.9 IPRATROPIUM-ALBUTEROL 0.5-2.5 ( 3) MG/3ML INHALATION SOLUTION 6896333 IPRATROPIUM-ALBUTEROL Inactive TYLENOL 8 HOUR 650 MG [...] BID 06/28 BACTROBAN 2 % EXTERNAL OINTMENT 571433 MUPIROCIN Inactive LAMICTAL 25 MG ORAL TABLET 2 tabs by mouth twice a day LAMICTAL 25 MG ORAL TABLET 701817 LAMOTRIGINE Inactive NOVOLOG 100 UNIT/ML SUBCUTANEOUS SOLUTION 10 UNITS BEFORE SUPPER NOVOLOG 100 UNIT/ML SUBCUTANEOUS SOLUTION INSULIN ASPART Inactive NOVOLOG 100 UNIT/ML SUBCUTANEOUS SOLUTION 10 UNITS BID BEFORE BREAKFAST AND LUNCH NOVOLOG 100 UNIT/ML SUBCUTANEOUS SOLUTION INSULIN ASPART Inactive IPRATROPIUM-ALBUTEROL 0.5-2.5 (3) MG/3ML INHALATION SOLUTION 1 neb treatment four times daily, for cough IPRATROPIUM-ALBUTEROL 0.5- 2.5 (3) MG/3ML INHALATION SOLUTION 8098270 IPRATROPIUM-ALBUTEROL Inactive BACTRIM DS 800-160 MG ORAL TABLET 1 tab by mouth twice daily 2016 BACTRIM DS 800-160 MG ORAL TABLET 706174 TRIMETHOPRIM- SULFAMETHOXAZOLE Inactive Advance Directives Directive Description Start Date DURABLE POWER OF OVEN PRESS TENDER FOR HEALTHCARE PERMISSION TO SHARE ADVANCED [...] temperature weight E&M 180 [lb_av] Weight Measured Diagnostic Results Date Name Value Unit Range Description Lab Report: Basic Metabolic Panel - Chemistry sodium, serum 127 mmol/L 131-013 9059/07/28 potassium, serum 5.3 mmol/L 3.5-5.2 chloride, serum 92 mmol/L 98-107 carbon dioxide, venous blood 32.4 mmol/L 21.0-32.0 blood glucose 182 mg/dL 65-110 calcium, serum 9.4 mg/dL 8.5-10.1 urea nitrogen, blood 14 mg/dL 7-18 creatinine, serum 0.94 mg/dL 0.60-1.30 Lab Report: CBC, Comp. Metabolic Panel - Chemistry sodium, serum 129 mmol/L 442-698 7544/07/12 carbon dioxide, venous blood 27.8 mmol/L 21.0-32.0 [...] % of total hemoglobin 6.8 % 4.3-6.0 Office Visit: 3 MO F/U [...] mg/dL Encounters Code Encounter Date Provider Facility CPT-47127 Level 4 Est. Patient 14:46:38 CDT Pelon Quach MD [facility] CPT-84112 Level 4 Est. Patient 08:43:11 CDT Pelon Quach MD [facility] CPT-09398 Level 4 Est. Patient 14:27:30 CDT Pelon Quach MD [facility] CPT-13125 Level 3 Est. Patient 10:32:17 CDT Jaycee Torrez APRN [facility] CPT-75825 Level 3 Est. Patient 10:15:07 CDT Pelon Quach MD [facility] CPT-38022 Level 4 Est. Patient 09:30:54 CDT Pelon Quach MD [facility] CPT-65305 Level 4 Est. Patient 14:34:25 CDT Pelon Quach MD [facility] CPT-03587 Level 3 Est. Patient 11:51:35 HORSES OR MULES TEAMSTER Rick Henson DO [facility] CPT-33065 Level 3 Est. Patient 12:13:33 HORSES OR MULES TEAMSTER Erik Baptiste MD [facility] [place]-43677 Level 3 Est. Patient 09:40:44 HORSES OR MULES TEAMSTER Jaycee Torrez [facility] CPT-53756 Level 3 Est. Patient 09:36:32 HORSES OR MULES TEAMSTER Jaycee Torrez [facility] CPT-04104 Level 4 Est. Patient 16:57:02 HORSES OR MULES TEAMSTER Pelon Quach MD [facility] [place]-01907 Level 4 Est. Patient 22:19:34 CDT Pelon Quach MD [facility]-52417 Level 3 Est. Patient 00:34:41 CDT Pelon Quach MD [facility]-95049 Level 4 Est. Patient 11:19:14 CDT Pelon Quach MD [facility]-49740 Level 4 Est. Patient 16:43:30 HORSES OR MULES TEAMSTER Pelon Quach MD [facility] [place]-75431 Level 4 Est. Patient 12:42:18 CDT Pelon Quach MD [facility] CPT-80909 Level 4 Est. Patient 11:52:20 CDT Pelon Quach MD [facility] CPT-64062 Level 4 Est. Patient 13:59:46 CDT Pelon Quach MD [facility] CPT-44365 Level 4 Est. Patient 15:10:48 CDT Pelon Quach MD [facility] CPT-18740 Level 4 Est. Patient 17:13:06 CDT Pelon Quach MD [facility] CPT-13037 Level 4 Est. Patient 18:47:47 CDT Pelon Quach MD [facility] CPT-78442 Level 3 Est. Patient 21:01:27 CDT Pelon Quach MD [facility] CPT-13583 Level 3 Est. Patient 14:07:03 CDT Taty Alvarado MD, PhD [facility] CPT-19906 Level 3 New Patient 21:39:52 HORSES OR MULES TEAMSTER Pelon Quach MD [facility] CPT-59453 Level 3 Est. Patient 14:28:44 CDT Glenn Thornton MD [facility] CPT-64822 Level 3 Est. Patient 16:35:00 CDT Glenn Thornton MD [facility] CPT-97050 Level 4 New Patient 17:06:27 CDT Glenn Thornton MD [facility] Procedures Code Procedure Name Date Entry Date Standard Description CPT-G0438 Initial Annual Wellness Exam 09:30:54 CDT CPT-16704 Prevnar 13 Intramuscular Suspension 14:34:25 CDT 12/27 CPT-01830 Chest 2V Frontal and Lat - XRAY USE ONLY 11:56:13 HORSES OR MULES TEAMSTER CPT-43419 Cystoscopy 14:28:44 CDT CPT-02952 Bladder Scan 14:28:44 CDT CPT-07385 Indwelling Cath Change 17:06:27 CDT CPT-80043 Cystoscopy 17:06:27 CDT
--- OUTSIDE RECORDS SUMMARY | 2018-06-22 11:42 | XMS REPORT | Clinical Summary ---
Author Author Admin, ONESIMO Organization [facility] [employer] [place] Address Unknown Phone Unavailable Allergies, Adverse Reactions, [...] Provider Patient Instruction INVEGA 6 MG ORAL TABLET EXTENDED RELEASE 24 HOUR 1 po daily for schizophrenia PALIPERIDONE 06594658444 Active Pelon Quach MD Active LAMICTAL 25 MG TABS 2 tabs by mouth twice a day LAMOTRIGINE 56736235410 No Longer Active Pelon Quach MD Active BACTROBAN 2 % OINTMENT Apply to affected area BID MUPIROCIN 21895643199 No Longer Active Pelon Quach MD Active BANOPHEN 25 MG ORAL TABS 1 po every 6 hours PRN allergic reaction DIPHENHYDRAMINE HCL 64177526832 Active NICOLETTE Hitchcock Active INVEGA 6 MG ORAL [id number] 1 po daily for Schizophrenia PALIPERIDONE 25051377846 No Longer Active Pelon Quach MD Active TYLENOL 8 HOUR 650 MG ORAL CR-TABS Take 1 tab po up to 3 times daily as needed ACETAMINOPHEN 43307758765 No Longer Active Pelon Quach MD Active IPRATROPIUM-ALBUTEROL 0.5-2.5 (3) MG/3ML INH SOLN 1 neb treatment QID for cough Dx: J06.9 IPRATROPIUM-ALBUTEROL 63057738105 No Longer Active Pelon Quach MD Active BACTRIM DS 800-160 MG TAB 1 tab by mouth twice daily TRIMETHOPRIM-SULFAMETHOXAZOLE 30345188633 No Longer Active Pelon Quach MD Active BACTRIM DS 800-160 MG TABS 1 twice a day SULFAMETHOXAZOLE-TRIMETHOPRIM 89472455415 No Longer Active Pelon Quach MD Active IPRATROPIUM-ALBUTEROL 0.5-2.5 (3) MG/3ML SOLN 1 neb treatment four times daily , for cough IPRATROPIUM-ALBUTEROL 50625775124 No Longer Active Jaycee Garcia APRN Active FUROSEMIDE 40 MG TABS Take one by mouth daily FUROSEMIDE 88206088515 No Longer Active Jaycee Garcia APRN Active LANTUS 100 UNIT/ML SC SOLN 20 SUBQ AT HS INSULIN GLARGINE 33764886226 Active Jaycee Garcia APRN Active LAMICTAL 25 MG ORAL TABS 2 tabs po BID for convulsions LAMOTRIGINE 43867690693 Active Jaycee Garcia APRN Active LASIX 20 MG TAB 1 tablet by mouth every morning for edema FUROSEMIDE 10376202646 Active Jaycee Garcia APRN Active BUSPIRONE HCL 10 MG TABS 1 tab by mouth BID BUSPIRONE HCL 39467679384 Active Jaycee Garcia APRN Active NOVOLOG 100 UNIT/ML SC SOLN 10 UNITS BEFORE SUPPER INSULIN ASPART 70277698694 Active Jaycee Garcia APRN Active NOVOLOG 100 UNIT/ML SC SOLN 10 UNITS BID BEFORE BREAKFAST AND LUNCH INSULIN ASPART 01411308282 Active Jaycee Garcia APRN Active ADULT ASPIRIN EC LOW STRENGTH 81 MG TBEC Take one by mouth daily ASPIRIN 63458874103 No Longer Active Pelon Quach MD Active ASPIRIN 81 MG ORAL TABS 1 po qd ASPIRIN 95022791834 Active Pelon Quach MD Active ZOFRAN 4 MG TABS 1 po q6hr PRN Nausea ONDANSETRON HCL 61981299436 No Longer Active Pelon Quach MD Active TYLENOL 325 MG TAB 1-2 pills by mouth every 6 hours if needed for pain/fever ACETAMINOPHEN 03755961704 No Longer Active Pelon Quach MD Active INVEGA 6 MG ORAL [id number] 1 TAB ONCE DAILY PALIPERIDONE 93787178365 No Longer Active Carly Suggs Active TEGRETOL 200 MG TABS by mouth twice a day CARBAMAZEPINE 52233622899 Active Taty Alvarado MD PhD Active FLOMAX 0.4 MG CAPS 1 Daily TAMSULOSIN HCL 58282206386 Active Marianela Juarez Active DILANTIN 100 MG CAPS Take one by mouth daily PHENYTOIN SODIUM EXTENDED 23593375810 No Longer Active Marianela Juarez Active DEPAKOTE SPRINKLES 125 MG CPSP 4 capsules by mouth twice daily DIVALPROEX SODIUM 21482798298 No Longer Active Marianelachandrika Juarez Active LAMICTAL 200 MG ORAL TABS 1 BY MOUTH TWICE A DAY LAMOTRIGINE 33599071840 Active Marianela Juarez Active LAMICTAL 100 MG TABS by mouth twice a day LAMOTRIGINE 53356997099 No Longer Active Marianela Juarez Active LAMICTAL 150 MG TABS by mouth twice a day LAMOTRIGINE 48537119868 No Longer Active Marianela Juarez Active DILANTIN 100 MG CAPS Take three by mouth daily PHENYTOIN SODIUM EXTENDED 29090354609 No Longer Active Marianela Juarez Active SENOKOT 8.6 MG TABS take at bedtime SENNOSIDES 50687036538 Active Glenn Thornton MD Active LIPITOR 20 MG TABS take at bedtime ATORVASTATIN CALCIUM 41745787672 Active Glenn Thornton MD Active LISINOPRIL 2.5 MG TABS Take one by mouth daily LISINOPRIL 20696146636 Active Glenn Thornton MD Active TRENTAL 400 MG CR-TABS by mouth twice a day PENTOXIFYLLINE 05346651243 Active Glenn Thornton MD Active KLOR-CON 10 10 MEQ CR-TABS Take one by mouth daily POTASSIUM CHLORIDE 58389975058 Active Glenn Thornton MD Active DILANTIN 100 MG CAPS Take three by mouth daily DILANTIN 100 MG CAPS 801999 PHENYTOIN SODIUM EXTENDED Inactive LAMICTAL 150 MG TABS by mouth twice a day LAMICTAL 150 MG TABS 276271 LAMOTRIGINE Inactive LAMICTAL 100 MG TABS by mouth twice a day LAMICTAL 100 MG TABS 007964 LAMOTRIGINE Inactive DEPAKOTE SPRINKLES 125 MG CPSP 4 capsules by mouth twice daily DEPAKOTE SPRINKLES 125 MG CPSP 1859031 DIVALPROEX SODIUM Inactive DILANTIN 100 MG CAPS Take one by mouth daily DILANTIN 100 MG CAPS 857729 PHENYTOIN SODIUM EXTENDED Inactive INVEGA 6 MG ORAL [id number] 1 TAB ONCE DAILY INVEGA 6 MG ORAL [id number] PALIPERIDONE Inactive TYLENOL 325 MG TAB 1-2 pills by mouth every 6 hours if needed for pain/fever TYLENOL 325 MG TAB 707083 ACETAMINOPHEN Inactive ZOFRAN 4 MG TABS 1 po q6hr PRN Nausea ZOFRAN 4 MG TABS 568729 ONDANSETRON HCL Inactive ADULT ASPIRIN EC LOW STRENGTH 81 MG TBEC Take one by mouth daily ADULT ASPIRIN EC LOW STRENGTH 81 MG TBEC 903231 ASPIRIN Inactive FUROSEMIDE 40 MG TABS Take one by mouth daily FUROSEMIDE 40 MG TABS 326815 FUROSEMIDE Inactive BACTRIM DS 800-160 MG TABS 1 twice a day BACTRIM DS 800-160 MG TABS 269097 SULFAMETHOXAZOLE-TRIMETHOPRIM Inactive IPRATROPIUM-ALBUTEROL 0.5-2.5 (3) MG/3ML INH SOLN 1 neb treatment QID for cough Dx: J06.9 IPRATROPIUM-ALBUTEROL 0.5-2.5 (3) MG/ 3ML INH SOLN 6306356 IPRATROPIUM-ALBUTEROL Inactive TYLENOL 8 HOUR 650 MG ORAL CR-TABS Take 1 tab po up to 3 times daily as needed TYLENOL 8 HOUR 650 MG ORAL CR-TABS ACETAMINOPHEN Inactive INVEGA 6 MG ORAL [id number] 1 po daily for Schizophrenia INVEGA 6 MG ORAL [id number] PALIPERIDONE Inactive BACTROBAN 2 % OINTMENT Apply to affected area BID BACTROBAN 2 % OINTMENT 932001 MUPIROCIN Inactive LAMICTAL 25 MG TABS 2 tabs by mouth twice a day LAMICTAL 25 MG TABS 530581 LAMOTRIGINE Inactive IPRATROPIUM-ALBUTEROL 0.5-2.5 (3) MG/3ML SOLN 1 neb treatment four times daily , for cough IPRATROPIUM-ALBUTEROL 0.5-2.5 (3) MG/3ML SOLN 0203839 IPRATROPIUM-ALBUTEROL Inactive BACTRIM DS 800-160 MG TAB 1 tab by mouth twice daily BACTRIM DS 800-160 MG TAB 642707 TRIMETHOPRIM-SULFAMETHOXAZOLE Inactive Advance Directives Directive Description Start Date DURABLE POWER OF ATHLETIC SCOUT FOR HEALTHCARE PERMISSION TO SHARE ADVANCED DIRECTIVE [...] Panel - Chemistry sodium, serum 127 mmol/L 098-202 1478/07/28 potassium, serum 5.3 mmol/L 3.5-5.2 chloride, serum 92 mmol/L 98-107 carbon dioxide, venous blood 32.4 mmol/L 21.0-32.0 blood glucose 182 mg/dL 65-110 calcium, serum 9.4 mg/dL 8.5-10.1 urea nitrogen, blood 14 mg/dL 7-18 creatinine, serum 0.94 mg/dL 0.60-1.30 Lab Report: CBC, Comp. Metabolic Panel - Chemistry sodium, serum 129 mmol/L 968-733 2099/07/12 carbon dioxide, venous blood 27.8 mmol/L 21.0-32.0 [...] cholesterol, target level 200 mg/dL Office Visit: 6 MO CHECK UP [...] mg/dL Encounters Code Encounter Date Provider Facility CPT-36216 Level 4 Est. Patient 14:46:38 CDT Pelon Quach MD [facility] CPT-75202 Level 4 Est. Patient 08:43:11 CDT Pelon Quach MD [facility] CPT-03153 Level 4 Est. Patient 14:27:30 CDT Pelon Quach MD [facility] CPT-23051 Level 3 Est. Patient 10:32:17 CDT Jaycee Garcia [facility] CPT-69626 Level 3 Est. Patient 10:15:07 CDT Pelon Quach MD [facility] CPT-34459 Level 4 Est. Patient 09:30:54 CDT Pelon Quach MD [facility] CPT-01228 Level 4 Est. Patient 14:34:25 CDT Pelon Quach MD [facility] CPT-72264 Level 3 Est. Patient 11:51:35 CENTRAL OFFICE MECHANIC Rick Henson DO [facility] CPT-48658 Level 3 Est. Patient 12:13:33 CENTRAL OFFICE MECHANIC Erik Baptiste MD [facility] CPT-04728 Level 3 Est. Patient 09:40:44 CENTRAL OFFICE MECHANIC Jaycee Garcia [facility] CPT-47407 Level 3 Est. Patient 09:36:32 CENTRAL OFFICE MECHANIC Jaycee Garcia [facility] CPT-01940 Level 4 Est. Patient 16:57:02 CENTRAL OFFICE MECHANIC Pelon Quach MD [facility] CPT-28812 Level 4 Est. Patient 22:19:34 CDT Pelon Quach MD [facility]-28012 Level 3 Est. Patient 00:34:41 CDT Pelon Quach MD [facility]-37586 Level 4 Est. Patient 11:19:14 CDT Pelon Quach MD [facility]-91237 Level 4 Est. Patient 16:43:30 CENTRAL OFFICE MECHANIC Pelon Quach MD [facility]-97250 Level 4 Est. Patient 12:42:18 CDT Pelon Quach MD [facility]-57292 Level 4 Est. Patient 11:52:20 CDT Pelon Quach MD [facility]-98389 Level 4 Est. Patient 13:59:46 CDT Pelon Quach MD [facility]-26757 Level 4 Est. Patient 15:10:48 CDT Pelon Quach MD [facility]-64716 Level 4 Est. Patient 17:13:06 CDT Pelon Quach MD [facility]-97669 Level 4 Est. Patient 18:47:47 CDT Pelon Quach MD [facility]-70036 Level 3 Est. Patient 21:01:27 CDT Pelon Quach MD [facility]-00835 Level 3 Est. Patient 14:07:03 CDT Taty Alvarado MD PhD [facility] CPT-90952 Level 3 New Patient 21:39:52 CENTRAL OFFICE MECHANIC Pelon Quach MD [facility]-59848 Level 3 Est. Patient 14:28:44 CDT Glenn Thornton MD [facility]-11171 Level 3 Est. Patient 16:35:00 CDT Glenn [facility] CPT-11312 Level 4 New Patient 17:06:27 CDT Glenn Thornton MD [facility] [place] Procedures Code Procedure Name Date Entry Date Standard Description CPT-G0438 Initial Annual Wellness Exam 09:30:54 CDT CPT-17898 Prevnar 13 Intramuscular Suspension 14:34:25 CDT 12/27 CPT-91394 Chest 2V Frontal and Lat - XRAY USE ONLY 11:56:13 CENTRAL OFFICE MECHANIC CPT-82817 Cystoscopy 14:28:44 CDT CPT-14717 Bladder Scan 14:28:44 CDT CPT-35355 Indwelling Cath Change 17:06:27 CDT CPT-75570 Cystoscopy 17:06:27 CDT
--- OUTSIDE RECORDS SUMMARY | 2018-06-22 11:43 | XMS REPORT | Clinical Summary ---
Author Author Admin, ONESIMO Organization [facility] [employer] Address Unknown Phone Unavailable Allergies, Adverse Reactions, [...] obstruction or gangrene (not specified as recurrent) Medication List Medication Instructions Start Date Stop Date Generic Name NDC Status Provider Patient Instruction LAMICTAL 25 MG TABS 2 tabs by mouth twice a day LAMOTRIGINE 18125706321 Active Pelon Quach MD Active ADULT ASPIRIN EC LOW STRENGTH 81 MG TBEC Take one by mouth daily ASPIRIN 51933664732 No Longer Active Pelon Quach MD Active TYLENOL 8 HOUR 650 MG ORAL CR-TABS Take 1 tab po QID x 7 days ACETAMINOPHEN 45368544505 Active Fanta Rodas MA Active INVEGA [id number] 3MG BY MOUTH ONE TIME DAILY PALIPERIDONE [id number] 06114743625 Active Pelon Quach MD Active ASPIRIN 81 MG ORAL TABS 1 po qd ASPIRIN 30433873252 Active Pelon Quach MD Active ZOFRAN 4 MG TABS 1 po q6hr PRN Nausea ONDANSETRON HCL 00311872759 No Longer Active Pelon Quach MD Active TYLENOL 325 MG TAB 1-2 pills by mouth every 6 hours if needed for pain/fever ACETAMINOPHEN 31119530974 No Longer Active Pelon Quach MD Active INVEGA 6 MG ORAL [id number] 1 TAB ONCE DAILY PALIPERIDONE 45703580343 No Longer Active Carly Suggs Active LANTUS 100 UNIT/ML SC SOLN 18 SUBQ AT HS INSULIN GLARGINE 49764827823 Active Pelon Quach MD Active TEGRETOL 200 MG TABS by mouth twice a day CARBAMAZEPINE 38736122587 Active Taty Alvarado MD PhD Active NOVOLOG 100 UNIT/ML SC SOLN 7 UNITS BEFORE SUPPER INSULIN ASPART 61371491515 Active Marianela Juarez Active NOVOLOG 100 UNIT/ML SC SOLN 7 UNITS BID BEFORE BREAKFAST AND LUNCH INSULIN ASPART 07756384743 Active Marianela Juarez Active FLOMAX 0.4 MG CAPS 1 Daily TAMSULOSIN HCL 03213251019 Active Marianela Juarez Active DILANTIN 100 MG CAPS Take one by mouth daily PHENYTOIN SODIUM EXTENDED 41808628918 No Longer Active Marianela Juarez Active DEPAKOTE SPRINKLES 125 MG CPSP 4 capsules by mouth twice daily DIVALPROEX SODIUM 07901412122 No Longer Active Marianela Juarez Active LAMICTAL 200 MG ORAL TABS 1 BY MOUTH TWICE A DAY LAMOTRIGINE 43756283711 Active Marianela Juarez Active LAMICTAL 100 MG TABS by mouth twice a day LAMOTRIGINE 58248229548 No Longer Active Marianela Juarez Active LAMICTAL 150 MG TABS by mouth twice a day LAMOTRIGINE 86826638880 No Longer Active Marianela Juarez Active DILANTIN 100 MG CAPS Take three by mouth daily PHENYTOIN SODIUM EXTENDED 98121292094 No Longer Active Marianela Juarez Active SENOKOT 8.6 MG TABS take at bedtime SENNOSIDES 24173320009 Active Glenn Thornton MD Active LIPITOR 20 MG TABS take at bedtime ATORVASTATIN CALCIUM 35911350632 Active Glenn Thornton MD Active LISINOPRIL 2.5 MG TABS Take one by mouth daily LISINOPRIL 23106584434 Active Glenn Thornton MD Active TRENTAL 400 MG CR-TABS by mouth twice a day PENTOXIFYLLINE 60175839065 Active Glenn Thornton MD Active BUSPIRONE HCL 10 MG TABS by mouth twice a day BUSPIRONE HCL 61759227467 Active Glenn Thornton MD Active FUROSEMIDE 40 MG TABS Take one by mouth daily FUROSEMIDE 77285376368 Active Glenn Thornton MD Active KLOR-CON 10 10 MEQ CR-TABS Take one by mouth daily POTASSIUM CHLORIDE 37390415997 Active Glenn Thornton MD Active DILANTIN 100 MG CAPS Take three by mouth daily DILANTIN 100 MG CAPS 620102 PHENYTOIN SODIUM EXTENDED Inactive LAMICTAL 150 MG TABS by mouth twice a day LAMICTAL 150 MG TABS 19831025 LAMOTRIGINE Inactive LAMICTAL 100 MG TABS by mouth twice a day LAMICTAL 100 MG TABS 19831024 LAMOTRIGINE Inactive DEPAKOTE SPRINKLES 125 MG CPSP 4 capsules by mouth twice daily DEPAKOTE SPRINKLES 125 MG CPSP 2952341 DIVALPROEX SODIUM Inactive DILANTIN 100 MG CAPS Take one by mouth daily DILANTIN 100 MG CAPS 186000 PHENYTOIN SODIUM EXTENDED Inactive INVEGA 6 MG ORAL [id number] 1 TAB ONCE DAILY INVEGA 6 MG ORAL [id number] PALIPERIDONE Inactive TYLENOL 325 MG TAB 1-2 pills by mouth every 6 hours if needed for pain/fever TYLENOL 325 MG TAB 033163 ACETAMINOPHEN Inactive ZOFRAN 4 MG TABS 1 po q6hr PRN Nausea ZOFRAN 4 MG TABS 567090 ONDANSETRON HCL Inactive ADULT ASPIRIN EC LOW STRENGTH 81 MG TBEC Take one by mouth daily ADULT ASPIRIN EC LOW STRENGTH 81 MG TBEC 542769 ASPIRIN Inactive Advance Directives Directive Description Start Date DURABLE POWER OF NUTRITION FACULTY MEMBER FOR HEALTHCARE PERMISSION TO SHARE Vital Signs Date Name Value Unit Range Description blood pressure, diastolic - 8462-4 69 mm[Hg] [...] E&M - 3141-9 166.5 [lb_av] Weight Measured blood pressure, diastolic - 8462-4 60 mm[Hg] BP daly blood pressure, systolic - 8480-6 125 mm[Hg] BP sys pulse rate E&M - 8867-4 88 /min Heart rate temperature E&M 97 [degF] Body temperature weight E&M - 3141-9 156.5 [lb_av] Weight Measured blood pressure, diastolic - 8462-4 79 mm[Hg] BP daly blood pressure, systolic - 8480-6 152 mm[Hg] BP sys pulse rate E&M - 8867-4 91 /min Heart rate temperature E&M 98.2 [degF] Body temperature weight E&M - 3141-9 167 [lb_av] Weight Measured Diagnostic Results Date Name Value Unit Range Description Chart Maintenance: Outside labs entered on flowsheet - Chemistry sodium, serum 136 mmol/L potassium, serum 4.4 mmol/L blood glucose 229 mg/dL creatinine, serum 0.8 mg/dL aspartate aminotransferase (SGOT), serum 20 U/L alanine aminotransferase (SGPT), serum 16 U/L alkaline phosphatase, serum 66 U/L cholesterol, serum 231 mg/dL HDL cholesterol, serum 91 mg/dL LDL cholesterol, serum 131.8 mg/dL triglyceride, serum, fasting 41 mg/dL hemoglobin A1C, blood, as % of total hemoglobin 7.2 % hemoglobin A1C, blood, as % of total hemoglobin 7.5 % potassium, serum 132 mmol/L chloride, serum 4.2 mmol/L blood glucose 120 mg/dL creatinine, serum 0.6 mg/dL aspartate aminotransferase (SGOT), serum 31 U/L alanine aminotransferase (SGPT), serum 23 U/L alkaline phosphatase, serum 54 U/L cholesterol, serum 255 mg/dL HDL cholesterol, serum 100 mg/dL LDL cholesterol, serum 147.6 mg/dL triglyceride, serum, fasting 37 mg/dL Lab Report: CBC, Comp. Metabolic Panel, [facility] - Chemistry sodium, serum 132 mmol/L 067-840 0996/10/16 carbon dioxide, venous blood 29.0 mmol/L 21.0-32.0 potassium, serum 4.8 mmol/L 3.5-5.2 chloride, serum 96 mmol/L 98-107 blood glucose 219 mg/dL 65-110 urea nitrogen, blood 15 mg/dL 7-18 creatinine, serum 0.67 mg/dL 0.55-1.30 alanine aminotransferase (SGPT), serum 17 U/L 12-78 aspartate aminotransferase (SGOT), serum 27 U/L 15-37 calcium, serum 8.7 mg/dL 8.5-10.1 hemoglobin A1C, blood, as % of total hemoglobin 7.4 % 4.3-6.0 Lab Report: CBC, Comp. Metabolic Panel, [facility] - Hematology leukocyte count, blood 5.8 10^3/MM^3 10*3/mm3 4.6-10.2 erythrocyte (RBC) count 4.19 10^6/MM^3 10*6/mm3 4.69-6.13 hemoglobin, blood 13.4 g/dL 13.5-17.5 hematocrit, blood 39.3 % 41.0-53.0 mean corpuscular volume, RBC 94 fL 80-97 mean corpuscular hemoglobin, RBC 32.0 pg 27.0-31.2 mean corpuscular hemoglobin concentration, RBC 34.0 G/DL % 31.8- 35.4 red blood cell distribution width 14.6 % 11.6-14.8 platelet count 340 10^3/MM^3 10*3/mm3 142-424 Lab Report: Total Bilirubin - Chemistry bilirubin, serum, total 0.40 mg/dL 0.00-1.00 Office Visit: 3 MO F/U - Chemistry cholesterol, target level 200 mg/dL triglyceride, target level 200 mg/dL HDL cholesterol, serum, target level 35 mg/dL LDL target level 100 mg/dL cholesterol, target level 200 mg/dL triglyceride, target level 150 mg/dL HDL cholesterol, serum, target level 40 mg/dL LDL target level 100 mg/dL Office Visit: 3 MONTH FU - Chemistry cholesterol, target level 200 mg/dL LDL target level 100 mg/dL HDL cholesterol, serum, target level 40 mg/dL triglyceride, target level 150 mg/dL Encounters Code Encounter Date Provider Facility CPT-96761 Level 4 Est. Patient 22:19:34 CDT Pelon Quach MD [facility] CPT-06166 Level 3 Est. Patient 00:34:41 CDT Pelon Quach MD [facility] CPT-72029 Level 4 Est. Patient 11:19:14 CDT Pelon Quach MD [facility] CPT-34107 Level 4 Est. Patient 16:43:30 TERMITE EXTERMINATOR Pelon Quach MD [facility] CPT-86767 Level 4 Est. Patient 12:42:18 CDT Pelon Quach MD [facility] CPT-53984 Level 4 Est. Patient 11:52:20 CDT Pelon Quach MD [facility] CPT-85342 Level 4 Est. Patient 13:59:46 CDT Pelon Quach MD [facility] CPT-66687 Level 4 Est. Patient 15:10:48 CDT Pelon Quach MD [facility] CPT-70300 Level 4 Est. Patient 17:13:06 CDT Pelon Quach MD [facility] CPT-44055 Level 4 Est. Patient 18:47:47 CDT Pelon Quach MD [facility] CPT-94438 Level 3 Est. Patient 21:01:27 CDT Pelon Quach MD [facility] CPT-25303 Level 3 Est. Patient 14:07:03 CDT Taty Alvarado MD PhD [facility] CPT-63129 Level 3 New Patient 21:39:52 TERMITE EXTERMINATOR Pelon Quach MD [facility] CPT-77899 Level 3 Est. Patient 14:28:44 CDT Glenn Thornton MD [facility] CPT-29521 Level 3 Est. Patient 16:35:00 CDT Glenn Thornton MD [facility] CPT-98624 Level 4 New Patient 17:06:27 CDT [facility] Procedures Code Procedure Name Date Entry Date Standard Description CPT-83552 Cystoscopy 14:28:44 CDT CPT-37711 Bladder Scan 14:28:44 CDT CPT-63289 Indwelling Cath Change 17:06:27 CDT CPT-83255 Cystoscopy 17:06:27 CDT
--- OUTSIDE RECORDS SUMMARY | 2018-06-22 11:43 | XMS REPORT | Clinical Summary ---
Author Author Admin, ONESIMO Organization [facility] [employer] [place] Address Unknown Phone Unavailable Allergies, Adverse Reactions, [...] emptying G E R D 530.81 Active Mnua Sami Esophageal reflux Diabetes-Type 2 250.00 Active [...] and insulin admin Dx: E11.9 ALCOHOL SWABS 89383017962 Active Jaycee Torrez APRN Active HUMALOG KWIKPEN 100 UNIT/ML SUBCUTANEOUS SOLUTION PEN-INJECTOR inject 10 units subcutaneously before meals also sliding scale INSULIN LISPRO 23788112965 Active Jaycee Torrez APRN Active NOVOLOG 100 UNIT/ML SUBCUTANEOUS SOLUTION 10 UNITS BID BEFORE BREAKFAST AND LUNCH INSULIN ASPART 96937200536 No Longer Active NICOLETTE Hitchcock Active NOVOLOG 100 UNIT/ML SUBCUTANEOUS SOLUTION 10 UNITS BEFORE SUPPER INSULIN ASPART 86830382773 No Longer Active NICOLETTE Hitchcock Active INVEGA 6 MG ORAL TABLET EXTENDED RELEASE 24 HOUR 1 po daily for schizophrenia PALIPERIDONE 87011964161 Active Pelon Quach MD Active LAMICTAL 25 MG ORAL TABLET 2 tabs by mouth twice a day LAMOTRIGINE 58824866945 No Longer Active Pelon Quach MD Active BACTROBAN 2 % EXTERNAL OINTMENT Apply to affected area BID 06/28 MUPIROCIN 42495273093 No Longer Active Pelon Quach MD Active BANOPHEN 25 MG ORAL TABLET 1 po every 6 hours PRN allergic reaction DIPHENHYDRAMINE HCL 57754359002 Active Pelon Quach MD Active INVEGA 6 MG ORAL TABLET EXTENDED RELEASE 24 HOUR 1 po daily for Schizophrenia PALIPERIDONE 92137164068 No Longer Active Pelon Quach MD Active TYLENOL 8 HOUR 650 MG ORAL TABLET EXTENDED RELEASE Take 1 tab po up to 3 times daily as needed ACETAMINOPHEN 57083068422 No Longer Active Pelon Quach MD Active IPRATROPIUM-ALBUTEROL 0.5-2.5 (3) MG/3ML INHALATION SOLUTION 1 neb treatment QID for cough Dx: J06.9 IPRATROPIUM-ALBUTEROL 35974750235 No Longer Active Pelon Quach MD Active BACTRIM DS 800-160 MG ORAL TABLET 1 tab by mouth twice daily 2016 TRIMETHOPRIM-SULFAMETHOXAZOLE 93607923882 No Longer Active Pelon Quach MD Active BACTRIM DS 800-160 MG ORAL TABLET 1 twice a day SULFAMETHOXAZOLE-TRIMETHOPRIM 55766462561 No Longer Active Pelon Quach MD Active IPRATROPIUM-ALBUTEROL 0.5-2.5 (3) MG/3ML INHALATION SOLUTION 1 neb treatment four times daily, for cough IPRATROPIUM-ALBUTEROL 22136826604 No Longer Active Jaycee Torrez APRN Active FUROSEMIDE 40 MG ORAL TABLET Take one by mouth daily FUROSEMIDE 82227496933 No Longer Active Jaycee Torrez APRN Active LANTUS 100 UNIT/ML SUBCUTANEOUS SOLUTION 20 SUBQ AT HS INSULIN GLARGINE 77980810908 Active Jaycee Torrez APRN Active LAMICTAL 25 MG ORAL TABLET 2 tabs po BID for convulsions LAMOTRIGINE 28526773321 Active Jaycee Torrez APRN Active LASIX 20 MG ORAL TABLET 1 tablet by mouth every morning for edema FUROSEMIDE 77318364679 Active Jaycee Torrez APRN Active BUSPIRONE HCL 10 MG ORAL TABLET 1 tab by mouth BID BUSPIRONE HCL 55636963747 Active Jaycee Torrez APRN Active ADULT ASPIRIN EC LOW STRENGTH 81 MG ORAL TABLET DELAYED RELEASE Take one by mouth daily ASPIRIN 30154794196 No Longer Active Pelon Quach MD Active ASPIRIN 81 MG ORAL TABLET 1 po qd ASPIRIN 22585422960 Active Pelon Quach MD Active ZOFRAN 4 MG ORAL TABLET 1 po q6hr PRN Nausea ONDANSETRON HCL 50018727813 No Longer Active Pelon Quach MD Active TYLENOL 325 MG ORAL TABLET 1-2 pills by mouth every 6 hours if needed for pain /fever ACETAMINOPHEN 94215056528 No Longer Active Pelon Quach MD Active INVEGA 6 MG ORAL TABLET EXTENDED RELEASE 24 HOUR 1 TAB ONCE DAILY PALIPERIDONE 68507052803 No Longer Active Carly Suggs Active TEGRETOL 200 MG ORAL TABLET by mouth twice a day CARBAMAZEPINE 26561607871 Active Taty Alvarado MD PhD Active FLOMAX 0.4 MG ORAL CAPSULE 1 Daily TAMSULOSIN HCL 63764946054 Active Marianelachandrika Juarez Active DILANTIN 100 MG ORAL CAPSULE Take one by mouth daily PHENYTOIN SODIUM EXTENDED 23020700830 No Longer Active Marianelachandrika Shankarronny Active DEPAKOTE SPRINKLES 125 MG ORAL CAPSULE DELAYED RELEASE SPRINKLE 4 capsules by mouth twice daily DIVALPROEX SODIUM 93191831553 No Longer Active Marianelachandrika Shankarida Active LAMICTAL 200 MG ORAL TABLET 1 BY MOUTH TWICE A DAY LAMOTRIGINE 56432772077 Active Marianela Raida Active LAMICTAL 100 MG ORAL TABLET by mouth twice a day LAMOTRIGINE 45751325804 No Longer Active Marianelachandrika Juarez Active LAMICTAL 150 MG ORAL TABLET by mouth twice a day LAMOTRIGINE 33862641507 No Longer Active Marianelachandrika Juarez Active DILANTIN 100 MG ORAL CAPSULE Take three by mouth daily PHENYTOIN SODIUM EXTENDED 76475622760 No Longer Active Marianela Juarez Active SENOKOT 8.6 MG ORAL TABLET take at bedtime SENNOSIDES 66758073137 Active Pelon Quach MD Active LIPITOR 20 MG ORAL TABLET take at bedtime ATORVASTATIN CALCIUM 37383249141 Active Glenn Thornton MD Active LISINOPRIL 2.5 MG ORAL TABLET Take one by mouth daily LISINOPRIL 82321558194 Emilie Thornton MD Active TRENTAL 400 MG CR-TABS by mouth twice a day PENTOXIFYLLINE 54584521649 Active Glenn Thornton MD Active KLOR-CON 10 10 MEQ ORAL TABLET EXTENDED RELEASE Take one by mouth daily POTASSIUM CHLORIDE 24609722848 Active Glenn Thornton MD Active DILANTIN 100 MG ORAL CAPSULE Take three by mouth daily DILANTIN 100 MG ORAL CAPSULE 961597 PHENYTOIN SODIUM EXTENDED Inactive LAMICTAL 150 MG [...] 125 MG ORAL CAPSULE DELAYED RELEASE SPRINKLE 4265044 DIVALPROEX SODIUM Inactive DILANTIN 100 MG ORAL CAPSULE Take one by mouth daily DILANTIN 100 MG ORAL CAPSULE 255723 PHENYTOIN SODIUM EXTENDED Inactive INVEGA 6 MG ORAL TABLET EXTENDED RELEASE 24 HOUR 1 TAB ONCE DAILY INVEGA 6 MG ORAL TABLET EXTENDED RELEASE 24 HOUR PALIPERIDONE Inactive TYLENOL 325 MG ORAL TABLET 1-2 pills by mouth every 6 hours if needed for pain /fever TYLENOL 325 MG ORAL TABLET 721563 ACETAMINOPHEN Inactive ZOFRAN 4 MG ORAL TABLET 1 po q6hr PRN Nausea ZOFRAN 4 MG ORAL TABLET 783025 ONDANSETRON HCL Inactive ADULT ASPIRIN EC LOW STRENGTH 81 MG ORAL TABLET DELAYED RELEASE Take one by mouth daily ADULT ASPIRIN EC LOW STRENGTH 81 MG ORAL TABLET DELAYED RELEASE 971393 ASPIRIN Inactive FUROSEMIDE 40 MG ORAL TABLET Take one by mouth daily FUROSEMIDE 40 MG ORAL TABLET 421620 FUROSEMIDE Inactive BACTRIM DS 800-160 MG ORAL TABLET 1 twice a day BACTRIM DS 800-160 MG ORAL TABLET 573584 SULFAMETHOXAZOLE-TRIMETHOPRIM Inactive IPRATROPIUM-ALBUTEROL 0.5-2.5 (3) MG/3ML INHALATION SOLUTION 1 neb treatment QID for cough Dx: J06.9 IPRATROPIUM-ALBUTEROL 0.5-2.5 ( 3) MG/3ML INHALATION SOLUTION 1597482 IPRATROPIUM-ALBUTEROL Inactive TYLENOL 8 HOUR 650 MG [...] BID 06/28 BACTROBAN 2 % EXTERNAL OINTMENT 396824 MUPIROCIN Inactive LAMICTAL 25 MG ORAL TABLET 2 tabs by mouth twice a day LAMICTAL 25 MG ORAL TABLET 939863 LAMOTRIGINE Inactive NOVOLOG 100 UNIT/ML SUBCUTANEOUS SOLUTION 10 UNITS BEFORE SUPPER NOVOLOG 100 UNIT/ML SUBCUTANEOUS SOLUTION INSULIN ASPART Inactive NOVOLOG 100 UNIT/ML SUBCUTANEOUS SOLUTION 10 UNITS BID BEFORE BREAKFAST AND LUNCH NOVOLOG 100 UNIT/ML SUBCUTANEOUS SOLUTION INSULIN ASPART Inactive IPRATROPIUM-ALBUTEROL 0.5-2.5 (3) MG/3ML INHALATION SOLUTION 1 neb treatment four times daily, for cough IPRATROPIUM-ALBUTEROL 0.5- 2.5 (3) MG/3ML INHALATION SOLUTION 3134904 IPRATROPIUM-ALBUTEROL Inactive BACTRIM DS 800-160 MG ORAL TABLET 1 tab by mouth twice daily 2016 BACTRIM DS 800-160 MG ORAL TABLET 164926 TRIMETHOPRIM- SULFAMETHOXAZOLE Inactive Advance Directives Directive Description Start Date DURABLE POWER OF GUEST SERVICES COORDINATOR FOR HEALTHCARE PERMISSION TO SHARE ADVANCED DIRECTIVE [...] Panel - Chemistry sodium, serum 127 mmol/L 076-022 8728/07/28 potassium, serum 5.3 mmol/L 3.5-5.2 chloride, serum 92 mmol/L 98-107 carbon dioxide, venous blood 32.4 mmol/L 21.0-32.0 blood glucose 182 mg/dL 65-110 calcium, serum 9.4 mg/dL 8.5-10.1 urea nitrogen, blood 14 mg/dL 7-18 creatinine, serum 0.94 mg/dL 0.60-1.30 Lab Report: CBC, Comp. Metabolic Panel - Chemistry sodium, serum 129 mmol/L 190-888 1092/07/12 carbon dioxide, venous blood 27.8 mmol/L 21.0-32.0 [...] mg/dL Encounters Code Encounter Date Provider Facility CPT-69172 Level 4 Est. Patient 14:46:38 CDT Pelon Quach MD [facility] CPT-16625 Level 4 Est. Patient 08:43:11 CDT Pelon Quach MD [facility] CPT-15968 Level 4 Est. Patient 14:27:30 CDT Pelon Quach MD [facility] CPT-04412 Level 3 Est. Patient 10:32:17 CDT Jaycee Torrez [facility] CPT-99149 Level 3 Est. Patient 10:15:07 CDT Pelon Quach MD [facility] CPT-12549 Level 4 Est. Patient 09:30:54 CDT Pelon Quach MD [facility] CPT-61916 Level 4 Est. Patient 14:34:25 CDT Pelon Quach MD [facility] CPT-65969 Level 3 Est. Patient 11:51:35 WORK OVER RIG OPERATOR Rick Henson DO [facility] CPT-41689 Level 3 Est. Patient 12:13:33 WORK OVER RIG OPERATOR Erik Baptiste MD [facility] CPT-33642 Level 3 Est. Patient 09:40:44 WORK OVER RIG OPERATOR Jaycee Torrez [facility] CPT-06456 Level 3 Est. Patient 09:36:32 WORK OVER RIG OPERATOR Jaycee Torrez VICTORINO [facility]-47730 Level 4 Est. Patient 16:57:02 WORK OVER RIG OPERATOR Pelon Quach MD [facility]-08934 Level 4 Est. Patient 22:19:34 CDT Pelon Quach MD [facility]-29562 Level 3 Est. Patient 00:34:41 CDT Pelon Quach MD [facility]-47997 Level 4 Est. Patient 11:19:14 CDT Pelon Quach MD [facility]-69449 Level 4 Est. Patient 16:43:30 WORK OVER RIG OPERATOR Pelon Quach MD [facility]-57995 Level 4 Est. Patient 12:42:18 CDT Pelon Quach MD [facility]-35029 Level 4 Est. Patient 11:52:20 CDT Pelon Quach MD [facility]-25363 Level 4 Est. Patient 13:59:46 CDT Pelon Quach MD [facility]-42363 Level 4 Est. Patient 15:10:48 CDT Pelon Quach MD [facility]-86899 Level 4 Est. Patient 17:13:06 CDT Pelon Quach MD [facility]-35442 Level 4 Est. Patient 18:47:47 CDT Pelon Quach MD [facility] CPT-86506 Level 3 Est. Patient 21:01:27 CDT Pelon Quach MD [facility]-16228 Level 3 Est. Patient 14:07:03 CDT Taty Alvarado MD PhD [facility] CPT-96637 Level 3 New Patient 21:39:52 WORK OVER RIG OPERATOR Pelon Quach MD [facility]-82596 Level 3 Est. Patient 14:28:44 CDT Glenn Thornton MD [facility] CPT-49642 Level 3 Est. Patient 16:35:00 CDT Glenn Thornton MD [facility] CPT-85156 Level 4 New Patient 17:06:27 CDT Glenn Thornton MD [facility] Procedures Code Procedure Name Date Entry Date Standard Description CPT-G0438 Initial Annual Wellness Exam 09:30:54 CDT CPT-16904 Prevnar 13 Intramuscular Suspension 14:34:25 CDT 12/27 CPT-76797 Chest 2V Frontal and Lat - XRAY USE ONLY 11:56:13 WORK OVER RIG OPERATOR CPT-24106 Cystoscopy 14:28:44 CDT CPT-50844 Bladder Scan 14:28:44 CDT CPT-42918 Indwelling Cath Change 17:06:27 CDT CPT-04602 Cystoscopy 17:06:27 CDT
[2018-06-22 11:44] LABS: BASOPHILS % (AUTO) 0 % (0-10); EOSINOPHILS # (AUTO) 0.1 10^3/uL (0.0-0.3); EOSINOPHILS % (AUTO) 1 % (0-10); HEMATOCRIT 25 % (40-54); HEMOGLOBIN 8.9 G/DL (13.3-17.7); LYMPHOCYTES # (AUTO) 0.3 X 10^3 (1.0-4.0); LYMPHOCYTES % (AUTO) 4 % (12-44); MEAN CORPUSCULAR HEMOGLOBIN 33 PG (25-34); MEAN CORPUSCULAR HGB CONC 36 G/DL (32-36); MEAN CORPUSCULAR VOLUME 93 FL (80-99); MEAN PLATELET VOLUME 8.2 FL (7.4-10.4); MONOCYTES # (AUTO) 0.4 X 10^3 (0.0-1.0); MONOCYTES % (AUTO) 6 % (0-12); NEUTROPHILS % (AUTO) 90 % (42-75); PLATELET COUNT 216 10^3/uL (130-400); RED CELL DISTRIBUTION WIDTH 13.5 % (10.0-14.5); WHITE BLOOD COUNT 7.8 10^3/uL (4.3-11.0)
--- OUTSIDE RECORDS SUMMARY | 2018-06-22 11:44 | XMS REPORT | Clinical Summary ---
Author Author Admin, ONESIMO Organization [facility] Address Unknown Phone Unavailable Allergies, Adverse Reactions, [...] as uncontrolled Bipolar disorder 296.80 Active Pelon Quahc MD Bipolar disorder, unspecified Blister, foot/toe w/o [...] HOUR 1 po daily for schizophrenia PALIPERIDONE 83621156888 Active Pelon Quach MD Active LAMICTAL 25 MG TABS 2 tabs by mouth twice a day LAMOTRIGINE 77702769556 No Longer Active Pelon Quach MD Active BACTROBAN 2 % OINTMENT Apply to affected area BID MUPIROCIN 96433733221 No Longer Active Pelon Quach MD Active BANOPHEN 25 MG ORAL TABS 1 po every 6 hours PRN allergic reaction DIPHENHYDRAMINE HCL 55357221969 Active NICOLETTE Hitchcock Active INVEGA 6 MG ORAL LI99C-REV 1 po daily for Schizophrenia PALIPERIDONE 89410720344 No Longer Active Pelon Quach MD Active TYLENOL 8 HOUR 650 MG ORAL CR-TABS Take 1 tab po up to 3 times daily as needed ACETAMINOPHEN 55376207373 No Longer Active Pelon Quach MD Active IPRATROPIUM-ALBUTEROL 0.5-2.5 (3) MG/3ML INH SOLN 1 neb treatment QID for cough Dx: J06.9 IPRATROPIUM-ALBUTEROL 12079218449 No Longer Active Pelon Quach MD Active BACTRIM DS 800-160 MG TAB 1 tab by mouth twice daily TRIMETHOPRIM-SULFAMETHOXAZOLE 03812240657 No Longer Active Pelon Quach MD Active BACTRIM DS 800-160 MG TABS 1 twice a day SULFAMETHOXAZOLE-TRIMETHOPRIM 71392344677 No Longer Active Pelon Quach MD Active IPRATROPIUM-ALBUTEROL 0.5-2.5 (3) MG/3ML SOLN 1 neb treatment four times daily , for cough IPRATROPIUM-ALBUTEROL 85833142979 No Longer Active Jaycee Garcia APRN Active FUROSEMIDE 40 MG TABS Take one by mouth daily FUROSEMIDE 68018094854 No Longer Active Jaycee Garcia APRN Active LANTUS 100 UNIT/ML SC SOLN 20 SUBQ AT HS INSULIN GLARGINE 74646035955 Active Jaycee Garcia APRN Active LAMICTAL 25 MG ORAL TABS 2 tabs po BID for convulsions LAMOTRIGINE 06962154608 Active Jaycee Garcia APRN Active LASIX 20 MG TAB 1 tablet by mouth every morning for edema FUROSEMIDE 22153060099 Active Jaycee Garcia APRN Active BUSPIRONE HCL 10 MG TABS 1 tab by mouth BID BUSPIRONE HCL 57360314520 Active Jaycee Garcia APRN Active NOVOLOG 100 UNIT/ML SC SOLN 10 UNITS BEFORE SUPPER INSULIN ASPART 61413073204 Active Jaycee Garcia APRN Active NOVOLOG 100 UNIT/ML SC SOLN 10 UNITS BID BEFORE BREAKFAST AND LUNCH INSULIN ASPART 66185223465 Active Jaycee Garcia APRN Active ADULT ASPIRIN EC LOW STRENGTH 81 MG TBEC Take one by mouth daily ASPIRIN 10646365238 No Longer Active Pelon Quach MD Active ASPIRIN 81 MG ORAL TABS 1 po qd ASPIRIN 73690366100 Active Pelon Quach MD Active ZOFRAN 4 MG TABS 1 po q6hr PRN Nausea ONDANSETRON HCL 00076079432 No Longer Active Pelon Quach MD Active TYLENOL 325 MG TAB 1-2 pills by mouth every 6 hours if needed for pain/fever ACETAMINOPHEN 95138444559 No Longer Active Pelon Quach MD Active INVEGA 6 MG ORAL PH31P-DQH 1 TAB ONCE DAILY PALIPERIDONE 02796665192 No Longer Active Carly Suggs Active TEGRETOL 200 MG TABS by mouth twice a day CARBAMAZEPINE 74207798758 Active Taty Alvarado MD PhD Active FLOMAX 0.4 MG CAPS 1 Daily TAMSULOSIN HCL 62473662078 Active Marianela Juarez Active DILANTIN 100 MG CAPS Take one by mouth daily PHENYTOIN SODIUM EXTENDED 59831184386 No Longer Active Marianela Juarez Active DEPAKOTE SPRINKLES 125 MG CPSP 4 capsules by mouth twice daily DIVALPROEX SODIUM 15481141848 No Longer Active Marianelachandrika Juarez Active LAMICTAL 200 MG ORAL TABS 1 BY MOUTH TWICE A DAY LAMOTRIGINE 52205476876 Active Marianela Juarez Active LAMICTAL 100 MG TABS by mouth twice a day LAMOTRIGINE 16971983814 No Longer Active Marianela Juarez Active LAMICTAL 150 MG TABS by mouth twice a day LAMOTRIGINE 30652062560 No Longer Active Marianela Juarez Active DILANTIN 100 MG CAPS Take three by mouth daily PHENYTOIN SODIUM EXTENDED 31879956199 No Longer Active Marianela Juarez Active SENOKOT 8.6 MG TABS take at bedtime SENNOSIDES 86748405447 Active Glenn Thornton MD Active LIPITOR 20 MG TABS take at bedtime ATORVASTATIN CALCIUM 57560930157 Active Glenn Thornton MD Active LISINOPRIL 2.5 MG TABS Take one by mouth daily LISINOPRIL 31928109041 Active Glenn Thornton MD Active TRENTAL 400 MG CR-TABS by mouth twice a day PENTOXIFYLLINE 78395236848 Active Glenn Thornton MD Active KLOR-CON 10 10 MEQ CR-TABS Take one by mouth daily POTASSIUM CHLORIDE 17501272416 Active Glenn Thornton MD Active DILANTIN 100 MG CAPS Take three by mouth daily DILANTIN 100 MG CAPS 055084 PHENYTOIN SODIUM EXTENDED Inactive LAMICTAL 150 MG TABS by mouth twice a day LAMICTAL 150 MG TABS 996348 LAMOTRIGINE Inactive LAMICTAL 100 MG TABS by mouth twice a day LAMICTAL 100 MG TABS 068178 LAMOTRIGINE Inactive DEPAKOTE SPRINKLES 125 MG CPSP 4 capsules by mouth twice daily DEPAKOTE SPRINKLES 125 MG CPSP 4791171 DIVALPROEX SODIUM Inactive DILANTIN 100 MG CAPS Take one by mouth daily DILANTIN 100 MG CAPS 499350 PHENYTOIN SODIUM EXTENDED Inactive INVEGA 6 MG ORAL [id number]-UMS 1 TAB ONCE DAILY INVEGA 6 MG ORAL [id number]-ELL PALIPERIDONE Inactive TYLENOL 325 MG TAB 1-2 pills by mouth every 6 hours if needed for pain/fever TYLENOL 325 MG TAB 520744 ACETAMINOPHEN Inactive ZOFRAN 4 MG TABS 1 po q6hr PRN Nausea ZOFRAN 4 MG TABS 132031 ONDANSETRON HCL Inactive ADULT ASPIRIN EC LOW STRENGTH 81 MG TBEC Take one by mouth daily ADULT ASPIRIN EC LOW STRENGTH 81 MG TBEC 894252 ASPIRIN Inactive FUROSEMIDE 40 MG TABS Take one by mouth daily FUROSEMIDE 40 MG TABS 652430 FUROSEMIDE Inactive BACTRIM DS 800-160 MG TABS 1 twice a day BACTRIM DS 800-160 MG TABS 245703 SULFAMETHOXAZOLE-TRIMETHOPRIM Inactive IPRATROPIUM-ALBUTEROL 0.5-2.5 (3) MG/3ML INH SOLN 1 neb treatment QID for cough Dx: J06.9 IPRATROPIUM-ALBUTEROL 0.5-2.5 (3) MG/ 3ML INH SOLN 2402901 IPRATROPIUM-ALBUTEROL Inactive TYLENOL 8 HOUR 650 MG ORAL CR-TABS Take 1 tab po up to 3 times daily as needed TYLENOL 8 HOUR 650 MG ORAL CR-TABS ACETAMINOPHEN Inactive INVEGA 6 MG ORAL [id number] 1 po daily for Schizophrenia INVEGA 6 MG ORAL [id number] PALIPERIDONE Inactive BACTROBAN 2 % OINTMENT Apply to affected area BID BACTROBAN 2 % OINTMENT 948203 MUPIROCIN Inactive LAMICTAL 25 MG TABS 2 tabs by mouth twice a day LAMICTAL 25 MG TABS 299554 LAMOTRIGINE Inactive IPRATROPIUM-ALBUTEROL 0.5-2.5 (3) MG/3ML SOLN 1 neb treatment four times daily , for cough IPRATROPIUM-ALBUTEROL 0.5-2.5 (3) MG/3ML SOLN 5960875 IPRATROPIUM-ALBUTEROL Inactive BACTRIM DS 800-160 MG TAB 1 tab by mouth twice daily BACTRIM DS 800-160 MG TAB 274415 TRIMETHOPRIM-SULFAMETHOXAZOLE Inactive Advance Directives Directive Description Start Date DURABLE POWER OF MARKETING SUPPORT COORDINATOR FOR HEALTHCARE PERMISSION TO SHARE ADVANCED [...] Measured blood pressure, diastolic 77 mm[Hg] BP dayl blood pressure, systolic 162 mm[Hg] BP sys pulse rate E&M 92 /min Heart rate temperature E&M 98.8 [degF] Body temperature weight E&M 178 [lb_av] Weight Measured Diagnostic Results Date Name Value Unit Range Description Lab Report: Basic Metabolic Panel - Chemistry sodium, serum 127 mmol/L 365-561 7242/07/28 potassium, serum 5.3 mmol/L 3.5-5.2 chloride, serum 92 mmol/L 98-107 carbon dioxide, venous blood 32.4 mmol/L 21.0-32.0 blood glucose 182 mg/dL 65-110 calcium, serum 9.4 mg/dL 8.5-10.1 urea nitrogen, blood 14 mg/dL 7-18 creatinine, serum 0.94 mg/dL 0.60-1.30 Lab Report: CBC, Comp. Metabolic Panel - Chemistry sodium, serum 129 mmol/L 523-544 4552/07/12 carbon dioxide, venous blood 27.8 mmol/L 21.0-32.0 [...] mg/dL Encounters Code Encounter Date Provider Facility CPT-90559 Level 4 Est. Patient 14:46:38 CDT Pelon Quach MD [facility] CPT-48217 Level 4 Est. Patient 08:43:11 CDT Pelon Quach MD [facility] CPT-97331 Level 4 Est. Patient 14:27:30 CDT Pelon Quach MD [facility] CPT-63036 Level 3 Est. Patient 10:32:17 CDT Jaycee Garcia [facility] CPT-63926 Level 3 Est. Patient 10:15:07 CDT Pelon Quach MD [facility] CPT-95084 Level 4 Est. Patient 09:30:54 CDT Pelon Quach MD [facility] CPT-49267 Level 4 Est. Patient 14:34:25 CDT Pelon Quach MD [facility] CPT-06307 Level 3 Est. 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 Patient 12:13:33 STRIPPER SHOVEL OPERATOR Erik Baptiste MD [facility] CPT-46526 Level 3 Est. Patient 09:40:44 STRIPPER SHOVEL OPERATOR Jaycee Garcia [facility] CPT-69938 Level 3 Est. Patient 09:36:32 STRIPPER SHOVEL OPERATOR Jaycee Garcia [facility] CPT-09444 Level 4 Est. Patient 16:57:02 STRIPPER SHOVEL OPERATOR Pelon Quach MD [facility] CPT-53862 Level 4 Est. Patient 22:19:34 CDT Pelon Quach MD [facility]-59626 Level 3 Est. Patient 00:34:41 CDT Pelon Quach MD [facility]-26715 Level 4 Est. Patient 11:19:14 CDT Pelon Quach MD [facility]-01638 Level 4 Est. Patient 16:43:30 STRIPPER SHOVEL OPERATOR Pelon Quach MD [facility]-64026 Level 4 Est. Patient 12:42:18 CDT Pelon Quach MD [facility]-42091 Level 4 Est. Patient 11:52:20 CDT Pelon Quach MD [facility]-57727 Level 4 Est. Patient 13:59:46 CDT Pelon Quach MD [facility]-30241 Level 4 Est. Patient 15:10:48 CDT Pelon Quach MD [facility]-03138 Level 4 Est. Patient 17:13:06 CDT Pelon Quach MD [facility]-12318 Level 4 Est. Patient 18:47:47 CDT Pelon Quach MD [facility]-98150 Level 3 Est. Patient 21:01:27 CDT Pelon Quach MD [facility]-71650 Level 3 Est. Patient 14:07:03 CDT Taty Alvarado MD PhD [facility] CPT-76497 Level 3 New Patient 21:39:52 STRIPPER SHOVEL OPERATOR Pelon Quach MD [facility]-92751 Level 3 Est. Patient 14:28:44 CDT Glenn Thornton MD [facility]-23654 Level 3 Est. Patient 16:35:00 CDT [facility] CPT-21046 Level 4 New Patient 17:06:27 CDT Glenn Thornton MD [facility] Procedures Code Procedure Name Date Entry Date Standard Description CPT-G0438 Initial Annual Wellness Exam 09:30:54 CDT CPT-01174 Prevnar 13 Intramuscular Suspension 14:34:25 CDT 12/27 CPT-61148 Chest 2V Frontal and Lat - XRAY USE ONLY 11:56:13 STRIPPER SHOVEL OPERATOR CPT-57949 Cystoscopy 14:28:44 CDT CPT-55815 Bladder Scan 14:28:44 CDT CPT-19698 Indwelling Cath Change 17:06:27 CDT CPT-98610 Cystoscopy 17:06:27 CDT
--- OUTSIDE RECORDS SUMMARY | 2018-06-22 11:44 | XMS REPORT | Clinical Summary ---
Author Author Admin, [employer] Organization [facility] Address Unknown Phone Unavailable Allergies, Adverse Reactions, Alerts Allergy Name Reaction Description Start Date Severity Status Provider No Known Allergies Carly Ifeanyi Conditions or Problems Problem Name Problem Code [...] disorders, type II or unspecified type, uncontrolled Medication List Medication Instructions Start Date Stop Date Generic Name NDC Status Provider Patient Instruction TYLENOL 8 HOUR 650 MG ORAL CR-TABS Take 1 tab po QID x 7 days ACETAMINOPHEN 69601071762 Active Fanta Rodas MA Active INVEGA FL50S-BHW 3MG BY MOUTH ONE TIME DAILY PALIPERIDONE TB72A-BSW 14118786537 Active Pelon Quach MD Active ASPIRIN 81 MG ORAL TABS 1 po qd ASPIRIN 68781276418 Active Pelon Quach MD Active ZOFRAN 4 MG TABS 1 po q6hr PRN Nausea ONDANSETRON HCL 79442088081 No Longer Active Pelon Quach MD Active TYLENOL 325 MG TAB 1-2 pills by mouth every 6 hours if needed for pain/fever ACETAMINOPHEN 98763562210 No Longer Active Pelon Quach MD Active INVEGA 6 MG ORAL [id number]-QPX 1 TAB ONCE DAILY PALIPERIDONE 79065598824 No Longer Active Carly Suggs Active LANTUS 100 UNIT/ML SC SOLN 18 SUBQ AT HS INSULIN GLARGINE 45266678047 Active Pelon Quach MD Active TEGRETOL 200 MG TABS by mouth twice a day CARBAMAZEPINE 67620855792 Active Taty Alvarado MD PhD Active NOVOLOG 100 UNIT/ML SC SOLN 7 UNITS BEFORE SUPPER INSULIN ASPART 89950448826 Active Marianela Raronny Active NOVOLOG 100 UNIT/ML SC SOLN 7 UNITS BID BEFORE BREAKFAST AND LUNCH INSULIN ASPART 13412627028 Active Marianela Juarez Active FLOMAX 0.4 MG CAPS 1 Daily TAMSULOSIN HCL 95333860841 Active Marianelachandrika Juarez Active DILANTIN 100 MG CAPS Take one by mouth daily PHENYTOIN SODIUM EXTENDED 93153884160 No Longer Active Marianela Juarez Active DEPAKOTE SPRINKLES 125 MG CPSP 4 capsules by mouth twice daily DIVALPROEX SODIUM 97982563721 No Longer Active Marianela Juarez Active LAMICTAL 200 MG ORAL TABS 1 BY MOUTH TWICE A DAY LAMOTRIGINE 51256665364 Active Marianelachandrika Juarez Active LAMICTAL 100 MG TABS by mouth twice a day LAMOTRIGINE 23863594758 No Longer Active Marianelachandrika Juarez Active LAMICTAL 150 MG TABS by mouth twice a day LAMOTRIGINE 19091507330 No Longer Active Marianelachandrika Juarez Active DILANTIN 100 MG CAPS Take three by mouth daily PHENYTOIN SODIUM EXTENDED 15363512669 No Longer Active Marianela Juarez Active SENOKOT 8.6 MG TABS take at bedtime SENNOSIDES 86101207705 Active Glenn Thornton MD Active LIPITOR 20 MG TABS take at bedtime ATORVASTATIN CALCIUM 72126868860 Active Glenn Thornton MD Active LISINOPRIL 2.5 MG TABS Take one by mouth daily LISINOPRIL 90318334517 Active Glenn Thornton MD Active TRENTAL 400 MG CR-TABS by mouth twice a day PENTOXIFYLLINE 02844622043 Active Glenn Thornton MD Active LAMICTAL 25 MG TABS by mouth twice a day LAMOTRIGINE 72640679542 Active Glenn Thornton MD Active BUSPIRONE HCL 10 MG TABS by mouth twice a day BUSPIRONE HCL 44594396443 Active Glenn Thornton MD Active FUROSEMIDE 40 MG TABS Take one by mouth daily FUROSEMIDE 87009984755 Active Glenn Thornton MD Active KLOR-CON 10 10 MEQ CR-TABS Take one by mouth daily POTASSIUM CHLORIDE 48958267913 Active Glenn Thornton MD Active ADULT ASPIRIN EC LOW STRENGTH 81 MG TBEC Take one by mouth daily ASPIRIN 63016584552 Active Glenn Thornton MD Active DILANTIN 100 MG CAPS Take three by mouth daily DILANTIN 100 MG CAPS 113809 PHENYTOIN SODIUM EXTENDED Inactive LAMICTAL 150 MG TABS by mouth twice a day LAMICTAL 150 MG TABS 317672 LAMOTRIGINE Inactive LAMICTAL 100 MG TABS by mouth twice a day LAMICTAL 100 MG TABS 780012 LAMOTRIGINE Inactive DEPAKOTE SPRINKLES 125 MG CPSP 4 capsules by mouth twice daily DEPAKOTE SPRINKLES 125 MG CPSP 7231818 DIVALPROEX SODIUM Inactive DILANTIN 100 MG CAPS Take one by mouth daily DILANTIN 100 MG CAPS 125497 PHENYTOIN SODIUM EXTENDED Inactive INVEGA 6 MG ORAL [id number] 1 TAB ONCE DAILY INVEGA 6 MG ORAL [id number] PALIPERIDONE Inactive TYLENOL 325 MG TAB 1-2 pills by mouth every 6 hours if needed for pain/fever TYLENOL 325 MG TAB 073053 ACETAMINOPHEN Inactive ZOFRAN 4 MG TABS 1 po q6hr PRN Nausea ZOFRAN 4 MG TABS 423446 ONDANSETRON HCL Inactive Advance Directives Directive Description Start Date DURABLE POWER OF ROSE GRADING SUPERVISOR FOR HEALTHCARE PERMISSION TO SHARE Vital Signs Date Name Value Unit Range Description blood pressure, diastolic - 8462-4 63 mm[Hg] [...] E&M - 3141-9 167 [lb_av] Weight Measured blood pressure, diastolic - 8462-4 69 mm[Hg] BP daly blood pressure, systolic - 8480-6 138 mm[Hg] BP sys pulse rate E&M - 8867-4 88 /min Heart rate temperature E&M 98.6 [degF] Body temperature weight E&M - 3141-9 165 [lb_av] Weight Measured Diagnostic Results Date Name Value Unit Range Description Chart Maintenance: Outside labs entered on flowsheet - Chemistry cholesterol, serum 226 mg/dL HDL cholesterol, serum 113 mg/dL LDL cholesterol, serum 108.4 mg/dL triglyceride, serum, fasting 33 mg/dL sodium, serum 136 mmol/L potassium, serum 4.4 [...] as % of total hemoglobin 7.5 % Lab Report: CBC, Comp. Metabolic Panel, HGBA1C - Chemistry sodium, serum 132 mmol/L 694-688 4221/10/16 carbon dioxide, venous blood 29.0 mmol/L 21.0-32.0 [...] 4.3-6.0 Lab Report: CBC, Comp. Metabolic Panel, [facility] - Hematology leukocyte count, blood 5.8 10^3/MM^3 [...] count 340 10^3/MM^3 10*3/mm3 142-424 Lab Report: HGBA1C - Chemistry hemoglobin A1C, blood, as % of total hemoglobin 7.4 % 4.3-6.0 Lab Report: Total Bilirubin - Chemistry bilirubin, serum, total 0.40 mg/dL 0.00-1.00 Office Visit: 3 MO F/U - Chemistry cholesterol, target level 200 mg/dL triglyceride, target level 150 mg/dL HDL cholesterol, serum, target level 40 mg/dL LDL target level 100 mg/dL cholesterol, target level 200 mg/dL triglyceride, target level 200 mg/dL HDL cholesterol, serum, target level 35 mg/dL LDL target level 100 mg/dL Office Visit: 3 month Follow up - Chemistry cholesterol, target level 200 mg/dL triglyceride, target level 200 mg/dL HDL cholesterol, serum, target level 35 mg/dL LDL target level 100 mg/dL Office Visit: 3 MONTH FU - Chemistry cholesterol, target level 200 mg/dL LDL target level 100 mg/dL HDL cholesterol, serum, target level 40 mg/dL triglyceride, target level 150 mg/dL Encounters Code Encounter Date Provider Facility CPT-21430 Level 4 Est. Patient 11:19:14 CDT Pelon Quach MD [facility] CPT-28478 Level 4 Est. Patient 16:43:30 WASHHOUSE [employer] Pelon Quach MD [facility] CPT-59763 Level 4 Est. Patient 12:42:18 CDT Pelon Quach MD [facility] CPT-70140 Level 4 Est. Patient 11:52:20 CDT Pelon Quach MD [facility] CPT-72934 Level 4 Est. Patient 13:59:46 CDT Pelon Quach MD [facility] CPT-94117 Level 4 Est. Patient 15:10:48 CDT Pelon Quach MD [facility] CPT-56681 Level 4 Est. Patient 17:13:06 CDT Pelon Quach MD [facility] CPT-09336 Level 4 Est. Patient 18:47:47 CDT Pelon Quach MD [facility] CPT-30227 Level 3 Est. Patient 21:01:27 CDT Pelon Quach MD [facility] CPT-36354 Level 3 Est. Patient 14:07:03 CDT Taty Alvarado MD PhD [facility] CPT-20373 Level 3 New Patient 21:39:52 WASHHOUSE HAND Pelon Quach MD [facility] CPT-72182 Level 3 Est. Patient 14:28:44 CDT Glenn Thornton MD [facility] CPT-68233 Level 3 Est. Patient 16:35:00 CDT Glenn Thornton MD [facility] CPT-56301 Level 4 New Patient 17:06:27 CDT Glenn Thornton MD [facility] [place] Procedures Code Procedure Name Date Entry Date Standard Description CPT-89198 Cystoscopy 14:28:44 CDT CPT-51518 Bladder Scan 14:28:44 CDT CPT-37144 Indwelling Cath Change 17:06:27 CDT CPT-91003 Cystoscopy 17:06:27 CDT
--- OUTSIDE RECORDS SUMMARY | 2018-06-22 11:45 | XMS REPORT | Clinical Summary ---
Author Author Admin, ONESIMO Organization [facility] [employer] [place] Address Unknown Phone Unavailable Allergies, Adverse Reactions, [...] 6 hours PRN allergic reaction DIPHENHYDRAMINE HCL 62455175562 Active NICOLETTE Hitchcock Active INVEGA 6 MG ORAL [id number]-PLL 1 po daily for Schizophrenia PALIPERIDONE 96331781227 No Longer Active Pelon Quach MD Active TYLENOL 8 HOUR 650 MG ORAL CR-TABS Take 1 tab po up to 3 times daily as needed ACETAMINOPHEN 77128302320 No Longer Active Pelon Quach MD Active IPRATROPIUM-ALBUTEROL 0.5-2.5 (3) MG/3ML INH SOLN 1 neb treatment QID for cough Dx: J06.9 IPRATROPIUM-ALBUTEROL 34078429439 No Longer Active Pelon Quach MD Active BACTRIM DS 800-160 MG TAB 1 tab by mouth twice daily TRIMETHOPRIM-SULFAMETHOXAZOLE 45763866933 No Longer Active Pelon Quach MD Active BACTROBAN 2 % OINTMENT Apply to affected area BID MUPIROCIN 44965121057 Active Jaycee Garcia APRN Active BACTRIM DS 800-160 MG TABS 1 twice a day SULFAMETHOXAZOLE-TRIMETHOPRIM 88876891041 No Longer Active Pelon Quach MD Active IPRATROPIUM-ALBUTEROL 0.5-2.5 (3) MG/3ML SOLN 1 neb treatment four times daily , for cough IPRATROPIUM-ALBUTEROL 11465921690 No Longer Active Jaycee Garcia APRN Active FUROSEMIDE 40 MG TABS Take one by mouth daily FUROSEMIDE 64408025437 No Longer Active Jaycee Garcia APRN Active LANTUS 100 UNIT/ML SC SOLN 20 SUBQ AT HS INSULIN GLARGINE 08214862248 Active Jaycee Garcia APRN Active LAMICTAL 25 MG ORAL TABS 2 tabs po BID for convulsions LAMOTRIGINE 91173878733 Active Jaycee Garcia APRN Active LASIX 20 MG TAB 1 tablet by mouth every morning for edema FUROSEMIDE 58545975210 Active Jaycee Garcia APRN Active BUSPIRONE HCL 10 MG TABS 1 tab by mouth BID BUSPIRONE HCL 69188733963 Active Jaycee Garcia MERCHANDISE DISTRIBUTOR Active NOVOLOG 100 UNIT/ML SC SOLN 10 UNITS BEFORE SUPPER INSULIN ASPART 05578531654 Active Jaycee Garcia APRN Active NOVOLOG 100 UNIT/ML SC SOLN 10 UNITS BID BEFORE BREAKFAST AND LUNCH INSULIN ASPART 72654096912 Active Jaycee Garcia APRN Active LAMICTAL 25 MG TABS 2 tabs by mouth twice a day LAMOTRIGINE 44721291651 Active Pelon Quach MD Active ADULT ASPIRIN EC LOW STRENGTH 81 MG TBEC Take one by mouth daily ASPIRIN 26024048628 No Longer Active Pelon Quach MD Active ASPIRIN 81 MG ORAL TABS 1 po qd ASPIRIN 89574780183 Active Pelon Quach MD Active ZOFRAN 4 MG TABS 1 po q6hr PRN Nausea ONDANSETRON HCL 45975626136 No Longer Active Pelon Quach MD Active TYLENOL 325 MG TAB 1-2 pills by mouth every 6 hours if needed for pain/fever ACETAMINOPHEN 53600215482 No Longer Active Pelon Quach MD Active INVEGA 6 MG ORAL [id number]-DND 1 TAB ONCE DAILY PALIPERIDONE 39060759431 No Longer Active Carly Suggs Active TEGRETOL 200 MG TABS by mouth twice a day CARBAMAZEPINE 06177498619 Active Taty Alvarado MD PhD Active FLOMAX 0.4 MG CAPS 1 Daily TAMSULOSIN HCL 27280131824 Active Marianela Juarez Active DILANTIN 100 MG CAPS Take one by mouth daily PHENYTOIN SODIUM EXTENDED 85729336141 No Longer Active Marianela Juarez Active DEPAKOTE SPRINKLES 125 MG CPSP 4 capsules by mouth twice daily DIVALPROEX SODIUM 10326650639 No Longer Active Marianela Juarez Active LAMICTAL 200 MG ORAL TABS 1 BY MOUTH TWICE A DAY LAMOTRIGINE 14509563084 Active Marianela Juarez Active LAMICTAL 100 MG TABS by mouth twice a day LAMOTRIGINE 24385056198 No Longer Active Marianela Juarez Active LAMICTAL 150 MG TABS by mouth twice a day LAMOTRIGINE 09393962161 No Longer Active Marianela Juarez Active DILANTIN 100 MG CAPS Take three by mouth daily PHENYTOIN SODIUM EXTENDED 07534959121 No Longer Active Marianela Shankarronny Active SENOKOT 8.6 MG TABS take at bedtime SENNOSIDES 00056686724 Active Glenn Thornton MD Active LIPITOR 20 MG TABS take at bedtime ATORVASTATIN CALCIUM 61957663947 Active Glenn Thornton MD Active LISINOPRIL 2.5 MG TABS Take one by mouth daily LISINOPRIL 29418330446 Active Glenn Thornton MD Active TRENTAL 400 MG CR-TABS by mouth twice a day PENTOXIFYLLINE 95976019168 Active Glenn Thornton MD Active KLOR-CON 10 10 MEQ CR-TABS Take one by mouth daily POTASSIUM CHLORIDE 48062104952 Active Glenn Thornton MD Active DILANTIN 100 MG CAPS Take three by mouth daily DILANTIN 100 MG CAPS 218744 PHENYTOIN SODIUM EXTENDED Inactive LAMICTAL 150 MG TABS by mouth twice a day LAMICTAL 150 MG TABS 830539 LAMOTRIGINE Inactive LAMICTAL 100 MG TABS by mouth twice a day LAMICTAL 100 MG TABS 19831024 LAMOTRIGINE Inactive DEPAKOTE SPRINKLES 125 MG CPSP 4 capsules by mouth twice daily DEPAKOTE SPRINKLES 125 MG CPSP 3043101 DIVALPROEX SODIUM Inactive DILANTIN 100 MG CAPS Take one by mouth daily DILANTIN 100 MG CAPS 401337 PHENYTOIN SODIUM EXTENDED Inactive INVEGA 6 MG ORAL [id number] 1 TAB ONCE DAILY INVEGA 6 MG ORAL [id number]-YLZ PALIPERIDONE Inactive TYLENOL 325 MG TAB 1-2 pills by mouth every 6 hours if needed for pain/fever TYLENOL 325 MG TAB 830159 ACETAMINOPHEN Inactive ZOFRAN 4 MG TABS 1 po q6hr PRN Nausea ZOFRAN 4 MG TABS 396833 ONDANSETRON HCL Inactive ADULT ASPIRIN EC LOW STRENGTH 81 MG TBEC Take one by mouth daily ADULT ASPIRIN EC LOW STRENGTH 81 MG TBEC 893985 ASPIRIN Inactive FUROSEMIDE 40 MG TABS Take one by mouth daily FUROSEMIDE 40 MG TABS 199145 FUROSEMIDE Inactive BACTRIM DS 800-160 MG TABS 1 twice a day BACTRIM DS 800-160 MG TABS 100729 SULFAMETHOXAZOLE-TRIMETHOPRIM Inactive IPRATROPIUM-ALBUTEROL 0.5-2.5 (3) MG/3ML INH SOLN 1 neb treatment QID for cough Dx: J06.9 IPRATROPIUM-ALBUTEROL 0.5-2.5 (3) MG/ 3ML INH SOLN 7982594 IPRATROPIUM-ALBUTEROL Inactive TYLENOL 8 HOUR 650 MG ORAL CR-TABS Take 1 tab po up to 3 times daily as needed TYLENOL 8 HOUR 650 MG ORAL CR-TABS ACETAMINOPHEN Inactive INVEGA 6 MG ORAL [id number]-PSF 1 po daily for Schizophrenia INVEGA 6 MG ORAL [id number]-YAR PALIPERIDONE Inactive IPRATROPIUM-ALBUTEROL 0.5-2.5 (3) MG/3ML SOLN 1 neb treatment four times daily , for cough IPRATROPIUM-ALBUTEROL 0.5-2.5 (3) MG/3ML SOLN 4311700 IPRATROPIUM-ALBUTEROL Inactive BACTRIM DS 800-160 MG TAB 1 tab by mouth twice daily BACTRIM DS 800-160 MG TAB 19821119 TRIMETHOPRIM-SULFAMETHOXAZOLE Inactive Advance Directives Directive Description Start Date DURABLE POWER OF ENDBANDER FOR HEALTHCARE PERMISSION TO SHARE ADVANCED DIRECTIVE [...] Panel - Chemistry sodium, serum 127 mmol/L 768-119 6644/07/28 potassium, serum 5.3 mmol/L 3.5-5.2 chloride, serum 92 mmol/L 98-107 carbon dioxide, venous blood 32.4 mmol/L 21.0-32.0 blood glucose 182 mg/dL 65-110 calcium, serum 9.4 mg/dL 8.5-10.1 urea nitrogen, blood 14 mg/dL 7-18 creatinine, serum 0.94 mg/dL 0.60-1.30 Lab Report: CBC, Comp. Metabolic Panel - Chemistry sodium, serum 129 mmol/L 524-153 5996/07/12 carbon dioxide, venous blood 27.8 mmol/L 21.0-32.0 [...] mg/dL Encounters Code Encounter Date Provider Facility CPT-53151 Level 4 Est. Patient 08:43:11 CDT Pelon Quach MD [facility] CPT-60378 Level 4 Est. Patient 14:27:30 CDT Pelon Quach MD [facility] CPT-33316 Level 3 Est. Patient 10:32:17 CDT Jaycee Garcia [facility] CPT-50707 Level 3 Est. Patient 10:15:07 CDT Pelon Quach MD [facility] CPT-44366 Level 4 Est. Patient 09:30:54 CDT Pelon Quach MD [facility] CPT-73016 Level 4 Est. Patient 14:34:25 CDT Pelon Quach MD [facility] CPT-71233 Level 3 Est. Patient 11:51:35 DIGITAL MEDIA STRATEGIST Rick Henson DO [facility] CPT-75988 Level 3 Est. Patient 12:13:33 DIGITAL MEDIA STRATEGIST Erik Baptiste MD [facility] CPT-96678 Level 3 Est. Patient 09:40:44 DIGITAL MEDIA STRATEGIST Jaycee Garcia [facility] CPT-40486 Level 3 Est. Patient 09:36:32 DIGITAL MEDIA STRATEGIST Jaycee Garcia [facility] CPT-11693 Level 4 Est. Patient 16:57:02 DIGITAL MEDIA STRATEGIST Pelon Quach MD [facility]-33030 Level 4 Est. Patient 22:19:34 CDT Pelon Quach MD [facility]-45105 Level 3 Est. Patient 00:34:41 CDT Pelon Quach MD [facility]-81850 Level 4 Est. Patient 11:19:14 CDT Pelon Quach MD [facility]-63205 Level 4 Est. Patient 16:43:30 DIGITAL MEDIA STRATEGIST Pelon Quach MD [facility]-34283 Level 4 Est. Patient 12:42:18 CDT Pelon Quach MD [facility]-39569 Level 4 Est. Patient 11:52:20 CDT Pelon Quach MD [facility]-60365 Level 4 Est. Patient 13:59:46 CDT Pelon Quach MD [facility]-11761 Level 4 Est. Patient 15:10:48 CDT Pelon Quach MD [facility]-97683 Level 4 Est. Patient 17:13:06 CDT Pelon Quach MD [facility]-84699 Level 4 Est. Patient 18:47:47 CDT Pelon Quach MD [facility]-58862 Level 3 Est. Patient 21:01:27 CDT Pelon Quach MD [facility] CPT-90580 Level 3 Est. Patient 14:07:03 CDT Taty Alvarado MD PhD [facility]-71417 Level 3 New Patient 21:39:52 DIGITAL MEDIA STRATEGIST Pelon Quach MD [facility]-35007 Level 3 Est. Patient 14:28:44 CDT Glenn Thornton MD [facility]-76270 Level 3 Est. Patient 16:35:00 CDT Glenn Thornton MD [facility] CPT-70343 Level 4 New Patient 17:06:27 CDT Glenn Thornton MD [facility] [place] Procedures Code Procedure Name Date Entry Date Standard Description CPT-G0438 Initial Annual Wellness Exam 09:30:54 CDT CPT-28306 Prevnar 13 Intramuscular Suspension 14:34:25 CDT 12/27 CPT-13172 Chest 2V Frontal and Lat - XRAY USE ONLY 11:56:13 DIGITAL MEDIA STRATEGIST CPT-41833 Cystoscopy 14:28:44 CDT CPT-86672 Bladder Scan 14:28:44 CDT CPT-22280 Indwelling Cath Change 17:06:27 CDT CPT-22160 Cystoscopy 17:06:27 CDT
--- OUTSIDE RECORDS SUMMARY | 2018-06-22 11:46 | XMS REPORT | Clinical Summary ---
Author Author Admin, ONESIMO Organization [facility] [employer] [place] Address Unknown Phone Unavailable Allergies, Adverse Reactions, [...] Neurogenic bladder NOS HYPERLIPIDEMIA 272.4 Active Glenn hTornton MD Other and unspecified hyperlipidemia INCOMPLETE BLADDER [...] 6 hours PRN allergic reaction DIPHENHYDRAMINE HCL 38095176372 Active NICOLETTE Hitchcock Active INVEGA 6 MG ORAL [id number] 1 po daily for Schizophrenia PALIPERIDONE 65269406251 No Longer Active Pelon Quach MD Active TYLENOL 8 HOUR 650 MG ORAL CR-TABS Take 1 tab po up to 3 times daily as needed ACETAMINOPHEN 27738182629 No Longer Active Pelon Quach MD Active IPRATROPIUM-ALBUTEROL 0.5-2.5 (3) MG/3ML INH SOLN 1 neb treatment QID for cough Dx: J06.9 IPRATROPIUM-ALBUTEROL 80822826574 No Longer Active Pelon Quach MD Active BACTRIM DS 800-160 MG TAB 1 tab by mouth twice daily TRIMETHOPRIM-SULFAMETHOXAZOLE 85356587695 No Longer Active Pelon Quach MD Active BACTROBAN 2 % OINTMENT Apply to affected area BID MUPIROCIN 92955414313 Active Jaycee Garcia APRN Active BACTRIM DS 800-160 MG TABS 1 twice a day SULFAMETHOXAZOLE-TRIMETHOPRIM 46116494913 No Longer Active Pelon Quach MD Active IPRATROPIUM-ALBUTEROL 0.5-2.5 (3) MG/3ML SOLN 1 neb treatment four times daily , for cough IPRATROPIUM-ALBUTEROL 60658372822 No Longer Active Jaycee Garcia APRN Active FUROSEMIDE 40 MG TABS Take one by mouth daily FUROSEMIDE 61076238047 No Longer Active Jaycee Garcia APRN Active LANTUS 100 UNIT/ML SC SOLN 20 SUBQ AT HS INSULIN GLARGINE 18397663459 Active Jaycee Garcia APRN Active LAMICTAL 25 MG ORAL TABS 2 tabs po BID for convulsions LAMOTRIGINE 63830614718 Active Jaycee Garcia APRN Active LASIX 20 MG TAB 1 tablet by mouth every morning for edema FUROSEMIDE 77170873921 Active Jaycee Garcia APRN Active BUSPIRONE HCL 10 MG TABS 1 tab by mouth BID BUSPIRONE HCL 39520345337 Active Jaycee Garcia ASSURANCE ENGINEER Active NOVOLOG 100 UNIT/ML SC SOLN 10 UNITS BEFORE SUPPER INSULIN ASPART 25137915357 Active Jaycee Garcia APRN Active NOVOLOG 100 UNIT/ML SC SOLN 10 UNITS BID BEFORE BREAKFAST AND LUNCH INSULIN ASPART 19049651789 Active Jaycee Gacria APRN Active LAMICTAL 25 MG TABS 2 tabs by mouth twice a day LAMOTRIGINE 45347450524 Active Pelon Quach MD Active ADULT ASPIRIN EC LOW STRENGTH 81 MG TBEC Take one by mouth daily ASPIRIN 99416235567 No Longer Active Pelon Quach MD Active ASPIRIN 81 MG ORAL TABS 1 po qd ASPIRIN 66748960060 Active Pelon Quach MD Active ZOFRAN 4 MG TABS 1 po q6hr PRN Nausea ONDANSETRON HCL 78731036723 No Longer Active Pelon Quach MD Active TYLENOL 325 MG TAB 1-2 pills by mouth every 6 hours if needed for pain/fever ACETAMINOPHEN 01989716129 No Longer Active Pelon Quach MD Active INVEGA 6 MG ORAL HC84X-RGV 1 TAB ONCE DAILY PALIPERIDONE 47956313069 No Longer Active Carly Suggs Active TEGRETOL 200 MG TABS by mouth twice a day CARBAMAZEPINE 16282285001 Active Taty Alvarado MD PhD Active FLOMAX 0.4 MG CAPS 1 Daily TAMSULOSIN HCL 24330800217 Active Marianela Juarez Active DILANTIN 100 MG CAPS Take one by mouth daily PHENYTOIN SODIUM EXTENDED 73721810470 No Longer Active Marianela Juarez Active DEPAKOTE SPRINKLES 125 MG CPSP 4 capsules by mouth twice daily DIVALPROEX SODIUM 21402018704 No Longer Active Marianela Juarez Active LAMICTAL 200 MG ORAL TABS 1 BY MOUTH TWICE A DAY LAMOTRIGINE 64043069524 Active Marianela Juarez Active LAMICTAL 100 MG TABS by mouth twice a day LAMOTRIGINE 20539176960 No Longer Active Marianela Juarez Active LAMICTAL 150 MG TABS by mouth twice a day LAMOTRIGINE 30392426473 No Longer Active Marianela Juarez Active DILANTIN 100 MG CAPS Take three by mouth daily PHENYTOIN SODIUM EXTENDED 39726194606 No Longer Active Marianela Shankarronny Active SENOKOT 8.6 MG TABS take at bedtime SENNOSIDES 71787363665 Active Glenn Thornton MD Active LIPITOR 20 MG TABS take at bedtime ATORVASTATIN CALCIUM 98217897440 Active Glenn Thornton MD Active LISINOPRIL 2.5 MG TABS Take one by mouth daily LISINOPRIL 59049368034 Active Glenn Thornton MD Active TRENTAL 400 MG CR-TABS by mouth twice a day PENTOXIFYLLINE 01750604725 Active Glenn Thornton MD Active KLOR-CON 10 10 MEQ CR-TABS Take one by mouth daily POTASSIUM CHLORIDE 94156848388 Active Glenn Thornton MD Active DILANTIN 100 MG CAPS Take three by mouth daily DILANTIN 100 MG CAPS 684018 PHENYTOIN SODIUM EXTENDED Inactive LAMICTAL 150 MG TABS by mouth twice a day LAMICTAL 150 MG TABS 939443 LAMOTRIGINE Inactive LAMICTAL 100 MG TABS by mouth twice a day LAMICTAL 100 MG TABS 19831024 LAMOTRIGINE Inactive DEPAKOTE SPRINKLES 125 MG CPSP 4 capsules by mouth twice daily DEPAKOTE SPRINKLES 125 MG CPSP 7295254 DIVALPROEX SODIUM Inactive DILANTIN 100 MG CAPS Take one by mouth daily DILANTIN 100 MG CAPS 959936 PHENYTOIN SODIUM EXTENDED Inactive INVEGA 6 MG ORAL CO20I-DKK 1 TAB ONCE DAILY INVEGA 6 MG ORAL AX79V-LXR PALIPERIDONE Inactive TYLENOL 325 MG TAB 1-2 pills by mouth every 6 hours if needed for pain/fever TYLENOL 325 MG TAB 762639 ACETAMINOPHEN Inactive ZOFRAN 4 MG TABS 1 po q6hr PRN Nausea ZOFRAN 4 MG TABS 099889 ONDANSETRON HCL Inactive ADULT ASPIRIN EC LOW STRENGTH 81 MG TBEC Take one by mouth daily ADULT ASPIRIN EC LOW STRENGTH 81 MG TBEC 882814 ASPIRIN Inactive FUROSEMIDE 40 MG TABS Take one by mouth daily FUROSEMIDE 40 MG TABS 413349 FUROSEMIDE Inactive BACTRIM DS 800-160 MG TABS 1 twice a day BACTRIM DS 800-160 MG TABS 120981 SULFAMETHOXAZOLE-TRIMETHOPRIM Inactive IPRATROPIUM-ALBUTEROL 0.5-2.5 (3) MG/3ML INH SOLN 1 neb treatment QID for cough Dx: J06.9 IPRATROPIUM-ALBUTEROL 0.5-2.5 (3) MG/ 3ML INH SOLN 1105488 IPRATROPIUM-ALBUTEROL Inactive TYLENOL 8 HOUR 650 MG ORAL CR-TABS Take 1 tab po up to 3 times daily as needed TYLENOL 8 HOUR 650 MG ORAL CR-TABS ACETAMINOPHEN Inactive INVEGA 6 MG ORAL [id number] 1 po daily for Schizophrenia INVEGA 6 MG ORAL CL74C-BZP PALIPERIDONE Inactive IPRATROPIUM-ALBUTEROL 0.5-2.5 (3) MG/3ML SOLN 1 neb treatment four times daily , for cough IPRATROPIUM-ALBUTEROL 0.5-2.5 (3) MG/3ML SOLN 3991901 IPRATROPIUM-ALBUTEROL Inactive BACTRIM DS 800-160 MG TAB 1 tab by mouth twice daily BACTRIM DS 800-160 MG TAB 19821119 TRIMETHOPRIM-SULFAMETHOXAZOLE Inactive Advance Directives Directive Description Start Date DURABLE POWER OF CENTRAL OFFICE FRAME WIRER FOR HEALTHCARE PERMISSION TO SHARE ADVANCED DIRECTIVE [...] Panel - Chemistry sodium, serum 129 mmol/L 999-272 0825/07/12 carbon dioxide, venous blood 27.8 mmol/L 21.0-32.0 [...] mg/dL Encounters Code Encounter Date Provider Facility CPT-03087 Level 4 Est. Patient 14:27:30 CDT Pelon Quach MD [facility] CPT-21234 Level 3 Est. Patient 10:32:17 CDT Jaycee Garcia APRN [facility] CPT-66590 Level 3 Est. Patient 10:15:07 CDT Pelon Quach MD [facility] CPT-00453 Level 4 Est. Patient 09:30:54 CDT Pelon Quach MD [facility] CPT-74775 Level 4 Est. Patient 14:34:25 CDT Pelon Quach MD [facility] CPT-43538 Level 3 Est. Patient 11:51:35 ROLL OR TAPE EDGE MACHINE OPERATOR Rick Henson DO [facility] CPT-94764 Level 3 Est. Patient 12:13:33 ROLL OR TAPE EDGE MACHINE OPERATOR Erik Baptiste MD [facility]-95002 Level 3 Est. Patient 09:40:44 ROLL OR TAPE EDGE MACHINE OPERATOR Jaycee Garcia [facility]-14276 Level 3 Est. Patient 09:36:32 ROLL OR TAPE EDGE MACHINE OPERATOR Jaycee Garcia [facility]-24524 Level 4 Est. Patient 16:57:02 ROLL OR TAPE EDGE MACHINE OPERATOR Pelon Quach MD [facility]-95399 Level 4 Est. Patient 22:19:34 CDT Pelon Quach MD [facility]-11553 Level 3 Est. Patient 00:34:41 CDT Pelon Quach MD [facility]-48582 Level 4 Est. Patient 11:19:14 CDT Pelon Quach MD [facility]-89414 Level 4 Est. Patient 16:43:30 ROLL OR TAPE EDGE MACHINE OPERATOR Pelon Quach MD [facility]-83966 Level 4 Est. Patient 12:42:18 CDT Pelon Quach MD [facility]-14843 Level 4 Est. Patient 11:52:20 CDT Pelon Quach MD [facility]-97059 Level 4 Est. Patient 13:59:46 CDT Pelon Quach MD [facility]-04034 Level 4 Est. Patient 15:10:48 CDT Pelon Quach MD [facility]-49112 Level 4 Est. Patient 17:13:06 CDT Pelon Quach MD [facility]-30449 Level 4 Est. Patient 18:47:47 CDT Pelon Quach MD [facility]-65407 Level 3 Est. Patient 21:01:27 CDT Pelon Quach MD [facility] CPT-13029 Level 3 Est. Patient 14:07:03 CDT Taty Alvarado MD PhD [facility] CPT-04374 Level 3 New Patient 21:39:52 ROLL OR TAPE EDGE MACHINE OPERATOR Pelon Quach MD [facility] CPT-77097 Level 3 Est. Patient 14:28:44 CDT Glenn Thornton MD [facility] CPT-95652 Level 3 Est. Patient 16:35:00 CDT Glenn Thornton MD [facility] CPT-26892 Level 4 New Patient 17:06:27 CDT Glenn Thornton MD [facility] Procedures Code Procedure Name Date Entry Date Standard Description CPT-G0438 Initial Annual Wellness Exam 09:30:54 CDT CPT-59927 Prevnar 13 Intramuscular Suspension 14:34:25 CDT 12/27 CPT-63166 Chest 2V Frontal and Lat - XRAY USE ONLY 11:56:13 ROLL OR TAPE EDGE MACHINE OPERATOR CPT-98403 Cystoscopy 14:28:44 CDT CPT-69958 Bladder Scan 14:28:44 CDT CPT-84042 Indwelling Cath Change 17:06:27 CDT CPT-77448 Cystoscopy 17:06:27 CDT
--- OUTSIDE RECORDS SUMMARY | 2018-06-22 11:46 | XMS REPORT | Clinical Summary ---
Author Author Admin, ONESIMO Organization [facility] [employer] Address Unknown Phone Unavailable Allergies, Adverse Reactions, Alerts Allergy Name Reaction Description Start Date Severity Status Provider No Known Allergies Lois Bradley LRT Conditions or Problems Problem Name Problem Code [...] G E R D 530.81 Active Muna Skeltonde Esophageal reflux Diabetes-Type 2 250.00 Active Pelon [...] Henson DO Other dyspnea and respiratory abnormality URI - acute ICD-465.9 Inactive Erik Baptiste MD URI - acute ICD-465.9 Inactive Erik Baptiste MD Medication List Medication Instructions Start Date Stop Date Generic Name NDC Status Provider Patient Instruction BACTRIM DS 800-160 MG TABS 1 twice a day SULFAMETHOXAZOLE- TRIMETHOPRIM 10913701781 Active Erik Baptiste MD Active IPRATROPIUM-ALBUTEROL 0.5-2.5 (3) MG/3ML INH SOLN 1 neb treatment QID for cough Dx: J06.9 IPRATROPIUM-ALBUTEROL 74449671629 Active Jaycee Garcia APRN Active IPRATROPIUM-ALBUTEROL 0.5-2.5 (3) MG/3ML SOLN 1 neb treatment four times daily , for cough IPRATROPIUM-ALBUTEROL 53224451229 No Longer Active Jaycee Garcia APRN Active TYLENOL 8 HOUR 650 MG ORAL CR-TABS Take 1 tab po up to 3 times daily as needed ACETAMINOPHEN 61050681909 Active Jaycee Jose LEAD RELAY TESTER Active FUROSEMIDE 40 MG TABS Take one by mouth daily FUROSEMIDE 72326674749 No Longer Active Jaycee Garcia VICTORINO Active LANTUS 100 UNIT/ML SC SOLN 20 SUBQ AT HS INSULIN GLARGINE 18511953496 Active Jaycee Jose LEAD RELAY TESTER Active LAMICTAL 25 MG ORAL TABS 2 tabs po BID for convulsions LAMOTRIGINE 24222925989 Active Jaycee Garcia VICTORINO Active INVEGA 6 MG ORAL [id number] 1 po daily for Schizophrenia PALIPERIDONE 75519498350 Active Jaycee Garcia VICTORINO Active LASIX 20 MG TAB 1 tablet by mouth every morning for edema FUROSEMIDE 62246127836 Active Jayceehugo Garcia APRN Active BUSPIRONE HCL 10 MG TABS 1 tab by mouth BID BUSPIRONE HCL 83556292284 Active Jaycee Garcia VICTORINO Active NOVOLOG 100 UNIT/ML SC SOLN 10 UNITS BEFORE SUPPER INSULIN ASPART 47563329164 Active Jaycee Garcia VICTORINO Active NOVOLOG 100 UNIT/ML SC SOLN 10 UNITS BID BEFORE BREAKFAST AND LUNCH INSULIN ASPART 79219406927 Active Jaycee Garcia VICTORINO Active LAMICTAL 25 MG TABS 2 tabs by mouth twice a day LAMOTRIGINE 15939364859 Active Pelon Quach MD Active ADULT ASPIRIN EC LOW STRENGTH 81 MG TBEC Take one by mouth daily ASPIRIN 12820466006 No Longer Active Pelon Quach MD Active ASPIRIN 81 MG ORAL TABS 1 po qd ASPIRIN 35911676199 Active Pelon Quach MD Active ZOFRAN 4 MG TABS 1 po q6hr PRN Nausea ONDANSETRON HCL 30108681889 No Longer Active Pelon Quach MD Active TYLENOL 325 MG TAB 1-2 pills by mouth every 6 hours if needed for pain/fever ACETAMINOPHEN 31559644041 No Longer Active Pelon Quach MD Active INVEGA 6 MG ORAL [id number] 1 TAB ONCE DAILY PALIPERIDONE 61716364224 No Longer Active Carly Suggs Active TEGRETOL 200 MG TABS by mouth twice a day CARBAMAZEPINE 85349524594 Active Taty Alvarado MD PhD Active FLOMAX 0.4 MG CAPS 1 Daily TAMSULOSIN HCL 68654615980 Active Marianelachandrika Juarez Active DILANTIN 100 MG CAPS Take one by mouth daily PHENYTOIN SODIUM EXTENDED 69912169536 No Longer Active Marianelachandrika Juarez Active DEPAKOTE SPRINKLES 125 MG CPSP 4 capsules by mouth twice daily DIVALPROEX SODIUM 54999750113 No Longer Active Marianelachandrika Juarez Active LAMICTAL 200 MG ORAL TABS 1 BY MOUTH TWICE A DAY LAMOTRIGINE 46906994904 Active Marianelachandrika Juarez Active LAMICTAL 100 MG TABS by mouth twice a day LAMOTRIGINE 84966679526 No Longer Active Marianelacahndrika Juarez Active LAMICTAL 150 MG TABS by mouth twice a day LAMOTRIGINE 35706669990 No Longer Active Marianelachandrika Juarez Active DILANTIN 100 MG CAPS Take three by mouth daily PHENYTOIN SODIUM EXTENDED 74382995595 No Longer Active Marianela Juarez Active SENOKOT 8.6 MG TABS take at bedtime SENNOSIDES 89616911928 Active Glenn Thornton MD Active LIPITOR 20 MG TABS take at bedtime ATORVASTATIN CALCIUM 61377438084 Active Glenn Thornton MD Active LISINOPRIL 2.5 MG TABS Take one by mouth daily LISINOPRIL 94504557416 Active Glenn Thornton MD Active TRENTAL 400 MG CR-TABS by mouth twice a day PENTOXIFYLLINE 82998164638 Active Glenn Thornton MD Active KLOR-CON 10 10 MEQ CR-TABS Take one by mouth daily POTASSIUM CHLORIDE 00490828541 Active Glenn Thornton MD Active DILANTIN 100 MG CAPS Take three by mouth daily DILANTIN 100 MG CAPS 140766 PHENYTOIN SODIUM EXTENDED Inactive LAMICTAL 150 MG TABS by mouth twice a day LAMICTAL 150 MG TABS 19831025 LAMOTRIGINE Inactive LAMICTAL 100 MG TABS by mouth twice a day LAMICTAL 100 MG TABS 19831024 LAMOTRIGINE Inactive DEPAKOTE SPRINKLES 125 MG CPSP 4 capsules by mouth twice daily DEPAKOTE SPRINKLES 125 MG CPSP 8691729 DIVALPROEX SODIUM Inactive DILANTIN 100 MG CAPS Take one by mouth daily DILANTIN 100 MG CAPS 184923 PHENYTOIN SODIUM EXTENDED Inactive INVEGA 6 MG ORAL [id number] 1 TAB ONCE DAILY INVEGA 6 MG ORAL [id number] PALIPERIDONE Inactive TYLENOL 325 MG TAB 1-2 pills by mouth every 6 hours if needed for pain/fever TYLENOL 325 MG TAB 671432 ACETAMINOPHEN Inactive ZOFRAN 4 MG TABS 1 po q6hr PRN Nausea ZOFRAN 4 MG TABS 033450 ONDANSETRON HCL Inactive ADULT ASPIRIN EC LOW STRENGTH 81 MG TBEC Take one by mouth daily ADULT ASPIRIN EC LOW STRENGTH 81 MG TBEC 077790 ASPIRIN Inactive FUROSEMIDE 40 MG TABS Take one by mouth daily FUROSEMIDE 40 MG TABS 427117 FUROSEMIDE Inactive IPRATROPIUM-ALBUTEROL 0.5-2.5 (3) MG/3ML SOLN 1 neb treatment four times daily , for cough IPRATROPIUM-ALBUTEROL 0.5-2.5 (3) MG/3ML SOLN 1232277 IPRATROPIUM-ALBUTEROL Inactive Advance Directives Directive Description Start Date DURABLE POWER OF DRY WALL PLASTERER FOR HEALTHCARE PERMISSION TO SHARE ADVANCED DIRECTIVE Vital Signs Date Name Value Unit Range Description blood pressure, diastolic - 8462-4 71 mm[Hg] [...] 147.6 mg/dL triglyceride, serum, fasting 37 mg/dL hemoglobin A1C, blood, as % of total hemoglobin 7.5 % Office Visit: 3 MO F/U - Basic [...] mg/dL Encounters Code Encounter Date Provider Facility CPT-90538 Level 3 Est. Patient 11:51:35 PATIENT ASSESSMENT COORDINATOR Rick Henson DO [facility] CPT-97709 Level 3 Est. Patient 12:13:33 PATIENT ASSESSMENT COORDINATOR Erik Baptiste MD [facility] CPT-39476 Level 3 Est. Patient 09:40:44 PATIENT ASSESSMENT COORDINATOR Jaycee Garcia [facility] CPT-72183 Level 3 Est. Patient 09:36:32 PATIENT ASSESSMENT COORDINATOR Jaycee Garcia [facility] CPT-77891 Level 4 Est. Patient 16:57:02 PATIENT ASSESSMENT COORDINATOR Pelon Quach MD [facility] CPT-29868 Level 4 Est. Patient 22:19:34 CDT Pelon Quach MD [facility] CPT-64908 Level 3 Est. Patient 00:34:41 CDT Pelon Quach MD [facility] CPT-78680 Level 4 Est. Patient 11:19:14 CDT Pelon Quach MD [facility] CPT-12331 Level 4 Est. Patient 16:43:30 PATIENT ASSESSMENT COORDINATOR Pelon Quach MD [facility] CPT-07308 Level 4 Est. Patient 12:42:18 CDT Pelon Quach MD [facility] CPT-21404 Level 4 Est. Patient 11:52:20 CDT Pelon Quach MD [facility] CPT-21427 Level 4 Est. Patient 13:59:46 CDT Pelon Quach MD [facility] CPT-32207 Level 4 Est. Patient 15:10:48 CDT Pelon Quach MD [facility] CPT-23753 Level 4 Est. Patient 17:13:06 CDT Pelon Quach MD [facility] CPT-82676 Level 4 Est. Patient 18:47:47 CDT Pelon Quach MD [facility] CPT-15526 Level 3 Est. Patient 21:01:27 CDT Pelon Quach MD [facility] CPT-23975 Level 3 Est. Patient 14:07:03 CDT Taty Alvarado MD PhD [facility] CPT-76433 Level 3 New Patient 21:39:52 PATIENT ASSESSMENT COORDINATOR Pelon Quach MD [facility] CPT-57409 Level 3 Est. Patient 14:28:44 CDT Glenn Thornton MD [facility] CPT-31973 Level 3 Est. Patient 16:35:00 CDT Glenn Thornton MD [facility] CPT-69631 Level 4 New Patient 17:06:27 CDT Glenn Thornton MD [facility] Procedures Code Procedure Name Date Entry Date Standard Description CPT-92306 Chest 2V Frontal and Lat - XRAY USE ONLY 11:56:13 PATIENT ASSESSMENT COORDINATOR CPT-54227 Cystoscopy 14:28:44 CDT CPT-49407 Bladder Scan 14:28:44 CDT CPT-67967 Indwelling Cath Change 17:06:27 CDT CPT-68863 Cystoscopy 17:06:27 CDT
--- OUTSIDE RECORDS SUMMARY | 2018-06-22 11:47 | XMS REPORT | Clinical Summary ---
Author Author Admin, ONESIMO Organization [facility] [employer] Address Unknown Phone Unavailable Allergies, Adverse Reactions, [...] Cellulitis and abscess of leg, except foot URI - acute ICD-465.9 Inactive Erik Baptiste MD URI - acute ICD-465.9 Inactive Erik Baptiste MD Medication List Medication Instructions Start Date Stop Date Generic Name NDC Status Provider Patient Instruction BACTRIM DS 800-160 MG TABS 1 twice a day SULFAMETHOXAZOLE- TRIMETHOPRIM 74919301181 Active Erik Baptiste MD Active IPRATROPIUM-ALBUTEROL 0.5-2.5 (3) MG/3ML INH SOLN 1 neb treatment QID for cough Dx: J06.9 IPRATROPIUM-ALBUTEROL 12877652944 Active NICOLETTE Hitchcock Active IPRATROPIUM-ALBUTEROL 0.5-2.5 (3) MG/3ML SOLN 1 neb treatment four times daily , for cough IPRATROPIUM-ALBUTEROL 39040452894 No Longer Active Jaycee Garcia APRN Active TYLENOL 8 HOUR 650 MG ORAL CR-TABS Take 1 tab po up to 3 times daily as needed ACETAMINOPHEN 40349045249 Active Jayceehugo Garcia APRN Active FUROSEMIDE 40 MG TABS Take one by mouth daily FUROSEMIDE 94719551987 No Longer Active Jaycee Garcia VICTORINO Active LANTUS 100 UNIT/ML SC SOLN 20 SUBQ AT HS INSULIN GLARGINE 30478639909 Active Jayceehugo Garcia APRN Active LAMICTAL 25 MG ORAL TABS 2 tabs po BID for convulsions LAMOTRIGINE 88636474875 Active Jaycee Jose VICTORINO Active INVEGA 6 MG ORAL [id number] 1 po daily for Schizophrenia PALIPERIDONE 51934049770 Active Jayceehugo Garcia APRN Active LASIX 20 MG TAB 1 tablet by mouth every morning for edema FUROSEMIDE 95621211080 Active Jaycee Jose VICTORINO Active BUSPIRONE HCL 10 MG TABS 1 tab by mouth BID BUSPIRONE HCL 63873565519 Active Jayceehugo Garcia APRN Active NOVOLOG 100 UNIT/ML SC SOLN 10 UNITS BEFORE SUPPER INSULIN ASPART 18736009892 Active Jaycee Garcia VICTORINO Active NOVOLOG 100 UNIT/ML SC SOLN 10 UNITS BID BEFORE BREAKFAST AND LUNCH INSULIN ASPART 17406565114 Active Jaycee Garcia VICTORINO Active LAMICTAL 25 MG TABS 2 tabs by mouth twice a day LAMOTRIGINE 52627451752 Active Pelon Quach MD Active ADULT ASPIRIN EC LOW STRENGTH 81 MG TBEC Take one by mouth daily ASPIRIN 48506522262 No Longer Active Pelon Quach MD Active ASPIRIN 81 MG ORAL TABS 1 po qd ASPIRIN 65070941623 Active Pelon Quach MD Active ZOFRAN 4 MG TABS 1 po q6hr PRN Nausea ONDANSETRON HCL 72200353794 No Longer Active Pelon Quach MD Active TYLENOL 325 MG TAB 1-2 pills by mouth every 6 hours if needed for pain/fever ACETAMINOPHEN 42070779247 No Longer Active Pelon Quach MD Active INVEGA 6 MG ORAL [id number] 1 TAB ONCE DAILY PALIPERIDONE 22434257650 No Longer Active Carly Suggs Active TEGRETOL 200 MG TABS by mouth twice a day CARBAMAZEPINE 62024690837 Active Taty Alvarado MD PhD Active FLOMAX 0.4 MG CAPS 1 Daily TAMSULOSIN HCL 01004245605 Active Marianela Juarez Active DILANTIN 100 MG CAPS Take one by mouth daily PHENYTOIN SODIUM EXTENDED 00532845286 No Longer Active Marianela Juarez Active DEPAKOTE SPRINKLES 125 MG CPSP 4 capsules by mouth twice daily DIVALPROEX SODIUM 48862580354 No Longer Active Marianelachandrika Juarez Active LAMICTAL 200 MG ORAL TABS 1 BY MOUTH TWICE A DAY LAMOTRIGINE 37006080435 Active Marianelachandrika Juarez Active LAMICTAL 100 MG TABS by mouth twice a day LAMOTRIGINE 69246928716 No Longer Active Marianelachandrika Juarez Active LAMICTAL 150 MG TABS by mouth twice a day LAMOTRIGINE 89845512442 No Longer Active Marianelachandrika Shankarronny Active DILANTIN 100 MG CAPS Take three by mouth daily PHENYTOIN SODIUM EXTENDED 17998781128 No Longer Active Marianela Juarez Active SENOKOT 8.6 MG TABS take at bedtime SENNOSIDES 37987566776 Active Glenn Thornton MD Active LIPITOR 20 MG TABS take at bedtime ATORVASTATIN CALCIUM 02058852978 Active Glenn Thornton MD Active LISINOPRIL 2.5 MG TABS Take one by mouth daily LISINOPRIL 31752317182 Active Glenn Thornton MD Active TRENTAL 400 MG CR-TABS by mouth twice a day PENTOXIFYLLINE 76870746038 Active Glenn Thornton MD Active KLOR-CON 10 10 MEQ CR-TABS Take one by mouth daily POTASSIUM CHLORIDE 24993159904 Active Glenn Thornton MD Active DILANTIN 100 MG CAPS Take three by mouth daily DILANTIN 100 MG CAPS 012407 PHENYTOIN SODIUM EXTENDED Inactive LAMICTAL 150 MG TABS by mouth twice a day LAMICTAL 150 MG TABS 19831025 LAMOTRIGINE Inactive LAMICTAL 100 MG TABS by mouth twice a day LAMICTAL 100 MG TABS 19831024 LAMOTRIGINE Inactive DEPAKOTE SPRINKLES 125 MG CPSP 4 capsules by mouth twice daily DEPAKOTE SPRINKLES 125 MG CPSP 1019318 DIVALPROEX SODIUM Inactive DILANTIN 100 MG CAPS Take one by mouth daily DILANTIN 100 MG CAPS 980905 PHENYTOIN SODIUM EXTENDED Inactive INVEGA 6 MG ORAL [id number] 1 TAB ONCE DAILY INVEGA 6 MG ORAL [id number] PALIPERIDONE Inactive TYLENOL 325 MG TAB 1-2 pills by mouth every 6 hours if needed for pain/fever TYLENOL 325 MG TAB 240412 ACETAMINOPHEN Inactive ZOFRAN 4 MG TABS 1 po q6hr PRN Nausea ZOFRAN 4 MG TABS 508302 ONDANSETRON HCL Inactive ADULT ASPIRIN EC LOW STRENGTH 81 MG TBEC Take one by mouth daily ADULT ASPIRIN EC LOW STRENGTH 81 MG TBEC 834834 ASPIRIN Inactive FUROSEMIDE 40 MG TABS Take one by mouth daily FUROSEMIDE 40 MG TABS 127489 FUROSEMIDE Inactive IPRATROPIUM-ALBUTEROL 0.5-2.5 (3) MG/3ML SOLN 1 neb treatment four times daily , for cough IPRATROPIUM-ALBUTEROL 0.5-2.5 (3) MG/3ML SOLN 9715613 IPRATROPIUM-ALBUTEROL Inactive Advance Directives Directive Description Start Date DURABLE POWER OF THREAT ANALYST FOR HEALTHCARE PERMISSION TO SHARE ADVANCED DIRECTIVE [...] mg/dL Encounters Code Encounter Date Provider Facility CPT-58176 Level 3 Est. Patient 12:13:33 FIELD SOFTWARE ENGINEER Erik Baptiste MD [facility] CPT-17399 Level 3 Est. Patient 09:40:44 FIELD SOFTWARE ENGINEER Jaycee Garcia [facility] CPT-35215 Level 3 Est. Patient 09:36:32 FIELD SOFTWARE ENGINEER Jaycee Garcia [facility] CPT-14604 Level 4 Est. Patient 16:57:02 FIELD SOFTWARE ENGINEER Pelon Quach MD [facility] CPT-98714 Level 4 Est. Patient 22:19:34 CDT Pelon Quach MD [facility] CPT-55564 Level 3 Est. Patient 00:34:41 CDT Pelon Quach MD [facility]-26697 Level 4 Est. Patient 11:19:14 CDT Pelon Quach MD [facility] CPT-16083 Level 4 Est. Patient 16:43:30 FIELD SOFTWARE ENGINEER Pelon Quach MD [facility] CPT-10615 Level 4 Est. Patient 12:42:18 CDT Pelon Quach MD [facility] CPT-07860 Level 4 Est. Patient 11:52:20 CDT Pelon Quach MD [facility] CPT-66928 Level 4 Est. Patient 13:59:46 CDT Pelon Quach MD [facility] CPT-97195 Level 4 Est. Patient 15:10:48 CDT Pelon Quach MD [facility] CPT-02202 Level 4 Est. Patient 17:13:06 CDT Pelon Quach MD [facility] CPT-42355 Level 4 Est. Patient 18:47:47 CDT Pelon Quach MD [facility] CPT-39625 Level 3 Est. Patient 21:01:27 CDT Pelon Quach MD [facility] CPT-59335 Level 3 Est. Patient 14:07:03 CDT Taty Alvarado MD PhD [facility] CPT-87364 Level 3 New Patient 21:39:52 FIELD SOFTWARE ENGINEER Pelon Quach MD [facility] CPT-96364 Level 3 Est. Patient 14:28:44 CDT Glenn Thornton MD [facility] CPT-70111 Level 3 Est. Patient 16:35:00 CDT Glenn Thornton MD [facility] CPT-15155 Level 4 New Patient 17:06:27 CDT Glenn Thornton MD [facility] Procedures Code Procedure Name Date Entry Date Standard Description CPT-24917 Cystoscopy 14:28:44 CDT CPT-66710 Bladder Scan 14:28:44 CDT CPT-94258 Indwelling Cath Change 17:06:27 CDT CPT-53493 Cystoscopy 17:06:27 CDT
--- OUTSIDE RECORDS SUMMARY | 2018-06-22 11:47 | XMS REPORT | Clinical Summary ---
Author Author Admin, ONESIMO Organization [email or web address] Address Unknown Phone Unavailable Allergies, Adverse Reactions, [...] TABS 1 twice a day SULFAMETHOXAZOLE- TRIMETHOPRIM 97918351241 Active Erik Baptiste MD Active IPRATROPIUM-ALBUTEROL 0.5-2.5 (3) MG/3ML INH SOLN 1 neb treatment QID for cough Dx: J06.9 IPRATROPIUM-ALBUTEROL 22187923993 Active NICOLETTE Hitchcock Active IPRATROPIUM-ALBUTEROL 0.5-2.5 (3) MG/3ML SOLN 1 neb treatment four times daily , for cough IPRATROPIUM-ALBUTEROL 07247927638 No Longer Active Jaycee Garcia APRN Active TYLENOL 8 HOUR 650 MG ORAL CR-TABS Take 1 tab po up to 3 times daily as needed ACETAMINOPHEN 33125606555 Active Jayceehugo Garcia APRN Active FUROSEMIDE 40 MG TABS Take one by mouth daily FUROSEMIDE 61516786849 No Longer Active Jaycee Jose VICTORINO Active LANTUS 100 UNIT/ML SC SOLN 20 SUBQ AT HS INSULIN GLARGINE 02181045197 Active Jaycee Garcia APRN Active LAMICTAL 25 MG ORAL TABS 2 tabs po BID for convulsions LAMOTRIGINE 11910762024 Active Jayceehugo Garcia APRN Active INVEGA 6 MG ORAL [id number] 1 po daily for Schizophrenia PALIPERIDONE 64453821894 Active Jayceehugo Garcia APRN Active LASIX 20 MG TAB 1 tablet by mouth every morning for edema FUROSEMIDE 57373817380 Active Jaycee Garcia APRN Active BUSPIRONE HCL 10 MG TABS 1 tab by mouth BID BUSPIRONE HCL 68897285899 Active Jaycee Jose VICTORINO Active NOVOLOG 100 UNIT/ML SC SOLN 10 UNITS BEFORE SUPPER INSULIN ASPART 09336098745 Active Jaycee Jose VICTORINO Active NOVOLOG 100 UNIT/ML SC SOLN 10 UNITS BID BEFORE BREAKFAST AND LUNCH INSULIN ASPART 83425611692 Active Jayceehugo Garcia APRN Active LAMICTAL 25 MG TABS 2 tabs by mouth twice a day LAMOTRIGINE 42963842866 Active Pelon Quach MD Active ADULT ASPIRIN EC LOW STRENGTH 81 MG TBEC Take one by mouth daily ASPIRIN 98066387749 No Longer Active Pelon Quach MD Active ASPIRIN 81 MG ORAL TABS 1 po qd ASPIRIN 62412551908 Active Pelon Quach MD Active ZOFRAN 4 MG TABS 1 po q6hr PRN Nausea ONDANSETRON HCL 54096635816 No Longer Active Pelon Quach MD Active TYLENOL 325 MG TAB 1-2 pills by mouth every 6 hours if needed for pain/fever ACETAMINOPHEN 34237679372 No Longer Active Pelon Quach MD Active INVEGA 6 MG ORAL [id number] 1 TAB ONCE DAILY PALIPERIDONE 06902473132 No Longer Active Carly Suggs Active TEGRETOL 200 MG TABS by mouth twice a day CARBAMAZEPINE 52655950423 Active Taty Alvarado MD PhD Active FLOMAX 0.4 MG CAPS 1 Daily TAMSULOSIN HCL 59067704346 Active Marianelachandrika Juarez Active DILANTIN 100 MG CAPS Take one by mouth daily PHENYTOIN SODIUM EXTENDED 77678032548 No Longer Active Marianela Juarez Active DEPAKOTE SPRINKLES 125 MG CPSP 4 capsules by mouth twice daily DIVALPROEX SODIUM 29084678463 No Longer Active Marianela Juarez Active LAMICTAL 200 MG ORAL TABS 1 BY MOUTH TWICE A DAY LAMOTRIGINE 29656989252 Active Marianelachandrika Juarez Active LAMICTAL 100 MG TABS by mouth twice a day LAMOTRIGINE 78377420418 No Longer Active Marianelachandrika Juarez Active LAMICTAL 150 MG TABS by mouth twice a day LAMOTRIGINE 82559562812 No Longer Active Marianela Juarez Active DILANTIN 100 MG CAPS Take three by mouth daily PHENYTOIN SODIUM EXTENDED 47596619796 No Longer Active Marianela Juarez Active SENOKOT 8.6 MG TABS take at bedtime SENNOSIDES 91133665026 Active Glenn Thornton MD Active LIPITOR 20 MG TABS take at bedtime ATORVASTATIN CALCIUM 83684109335 Active Glenn Thornton MD Active LISINOPRIL 2.5 MG TABS Take one by mouth daily LISINOPRIL 65480768656 Active Glenn Thornton MD Active TRENTAL 400 MG CR-TABS by mouth twice a day PENTOXIFYLLINE 83699324567 Active Glenn Thornton MD Active KLOR-CON 10 10 MEQ CR-TABS Take one by mouth daily POTASSIUM CHLORIDE 28167987913 Active Glenn Thornton MD Active DILANTIN 100 MG CAPS Take three by mouth daily DILANTIN 100 MG CAPS 814683 PHENYTOIN SODIUM EXTENDED Inactive LAMICTAL 150 MG TABS by mouth twice a day LAMICTAL 150 MG TABS 19831025 LAMOTRIGINE Inactive LAMICTAL 100 MG TABS by mouth twice a day LAMICTAL 100 MG TABS 19831024 LAMOTRIGINE Inactive DEPAKOTE SPRINKLES 125 MG CPSP 4 capsules by mouth twice daily DEPAKOTE SPRINKLES 125 MG CPSP 6473894 DIVALPROEX SODIUM Inactive DILANTIN 100 MG CAPS Take one by mouth daily DILANTIN 100 MG CAPS 710966 PHENYTOIN SODIUM EXTENDED Inactive INVEGA 6 MG ORAL [id number] 1 TAB ONCE DAILY INVEGA 6 MG ORAL [id number] PALIPERIDONE Inactive TYLENOL 325 MG TAB 1-2 pills by mouth every 6 hours if needed for pain/fever TYLENOL 325 MG TAB 770931 ACETAMINOPHEN Inactive ZOFRAN 4 MG TABS 1 po q6hr PRN Nausea ZOFRAN 4 MG TABS 296742 ONDANSETRON HCL Inactive ADULT ASPIRIN EC LOW STRENGTH 81 MG TBEC Take one by mouth daily ADULT ASPIRIN EC LOW STRENGTH 81 MG TBEC 101326 ASPIRIN Inactive FUROSEMIDE 40 MG TABS Take one by mouth daily FUROSEMIDE 40 MG TABS 216238 FUROSEMIDE Inactive IPRATROPIUM-ALBUTEROL 0.5-2.5 (3) MG/3ML SOLN 1 neb treatment four times daily , for cough IPRATROPIUM-ALBUTEROL 0.5-2.5 (3) MG/3ML SOLN 8559985 IPRATROPIUM-ALBUTEROL Inactive Advance Directives Directive Description Start Date DURABLE POWER OF SIGN HANGER FOR HEALTHCARE PERMISSION TO SHARE ADVANCED DIRECTIVE [...] mg/dL Encounters Code Encounter Date Provider Facility CPT-68966 Level 3 Est. Patient 11:51:35 BOX CLOSING MACHINE OPERATOR Rick Henson DO [facility] CPT-75086 Level 3 Est. Patient 12:13:33 BOX CLOSING MACHINE OPERATOR Erik Baptiste MD [facility] CPT-84577 Level 3 Est. Patient 09:40:44 BOX CLOSING MACHINE OPERATOR Jaycee Garcia [facility] CPT-04876 Level 3 Est. Patient 09:36:32 BOX CLOSING MACHINE OPERATOR Jaycee Garcia [facility] CPT-21579 Level 4 Est. Patient 16:57:02 BOX CLOSING MACHINE OPERATOR Pelon Quach MD [facility] CPT-65617 Level 4 Est. Patient 22:19:34 CDT Pelon Quach MD [facility] CPT-33015 Level 3 Est. Patient 00:34:41 CDT Pelon Quach MD [facility] CPT-37748 Level 4 Est. Patient 11:19:14 CDT Pelon Quach MD [facility] CPT-70362 Level 4 Est. Patient 16:43:30 BOX CLOSING MACHINE OPERATOR Pelon Quach MD [facility] CPT-01417 Level 4 Est. Patient 12:42:18 CDT Pelon Quach MD [facility] CPT-74344 Level 4 Est. Patient 11:52:20 CDT Pelon Quach MD [facility] CPT-11643 Level 4 Est. Patient 13:59:46 CDT Pelon Quach MD [facility] CPT-54614 Level 4 Est. Patient 15:10:48 CDT Pelon Quach MD [facility] CPT-03093 Level 4 Est. Patient 17:13:06 CDT Pelon Quach MD [facility] CPT-03979 Level 4 Est. Patient 18:47:47 CDT Pelon Quach MD [facility] CPT-54252 Level 3 Est. Patient 21:01:27 CDT Pelon Quach MD [facility] CPT-85469 Level 3 Est. Patient 14:07:03 CDT Taty Alvarado MD PhD [facility] CPT-68471 Level 3 New Patient 21:39:52 BOX CLOSING MACHINE OPERATOR Pelon Quach MD [facility] CPT-22669 Level 3 Est. Patient 14:28:44 CDT Glenn Thornton MD [facility] CPT-40952 Level 3 Est. Patient 16:35:00 CDT Glenn Thornton MD [facility] CPT-88983 Level 4 New Patient 17:06:27 CDT Glenn Thornton MD [facility] [place] Procedures Code Procedure Name Date Entry Date Standard Description CPT-48530 Chest 2V Frontal and Lat - XRAY USE ONLY 11:56:13 BOX CLOSING MACHINE OPERATOR CPT-57136 Cystoscopy 14:28:44 CDT CPT-87681 Bladder Scan 14:28:44 CDT CPT-24222 Indwelling Cath Change 17:06:27 CDT CPT-24742 Cystoscopy 17:06:27 CDT
--- OUTSIDE RECORDS SUMMARY | 2018-06-22 11:48 | XMS REPORT | Clinical Summary ---
Author Author Admin, ONESIMO Organization [facility] [place] Address Unknown Phone Unavailable Allergies, Adverse Reactions, [...] tabs by mouth twice a day LAMOTRIGINE 41902004136 Active Pelon Quach MD Active ADULT ASPIRIN EC LOW STRENGTH 81 MG TBEC Take one by mouth daily ASPIRIN 80952239402 No Longer Active Pelon Quach MD Active TYLENOL 8 HOUR 650 MG ORAL CR-TABS Take 1 tab po QID x 7 days ACETAMINOPHEN 21602764246 Active Fanta Rodas MA Active INVEGA [id number] 3MG BY MOUTH ONE TIME DAILY PALIPERIDONE [id number] 35095789762 Active Pelon Quach MD Active ASPIRIN 81 MG ORAL TABS 1 po qd ASPIRIN 92799089135 Active Pelon Quach MD Active ZOFRAN 4 MG TABS 1 po q6hr PRN Nausea ONDANSETRON HCL 18902222769 No Longer Active Pelon Quach MD Active TYLENOL 325 MG TAB 1-2 pills by mouth every 6 hours if needed for pain/fever ACETAMINOPHEN 94700978430 No Longer Active Pelon Quach MD Active INVEGA 6 MG ORAL [id number] 1 TAB ONCE DAILY PALIPERIDONE 18923415233 No Longer Active Carly Suggs Active LANTUS 100 UNIT/ML SC SOLN 18 SUBQ AT HS INSULIN GLARGINE 98213028515 Active Pelon Quach MD Active TEGRETOL 200 MG TABS by mouth twice a day CARBAMAZEPINE 93170735593 Active Taty Alvaraod MD PhD Active NOVOLOG 100 UNIT/ML SC SOLN 7 UNITS BEFORE SUPPER INSULIN ASPART 27730251014 Active Marianela Juarez Active NOVOLOG 100 UNIT/ML SC SOLN 7 UNITS BID BEFORE BREAKFAST AND LUNCH INSULIN ASPART 44472656409 Active Marianela Juarez Active FLOMAX 0.4 MG CAPS 1 Daily TAMSULOSIN HCL 78455182807 Active Marianela Juarez Active DILANTIN 100 MG CAPS Take one by mouth daily PHENYTOIN SODIUM EXTENDED 96233228258 No Longer Active Marianela Juarez Active DEPAKOTE SPRINKLES 125 MG CPSP 4 capsules by mouth twice daily DIVALPROEX SODIUM 13121272760 No Longer Active Marianela Juarez Active LAMICTAL 200 MG ORAL TABS 1 BY MOUTH TWICE A DAY LAMOTRIGINE 11316393484 Active Marianela Juarez Active LAMICTAL 100 MG TABS by mouth twice a day LAMOTRIGINE 09887399880 No Longer Active Marianela Juarez Active LAMICTAL 150 MG TABS by mouth twice a day LAMOTRIGINE 95353981626 No Longer Active Marianela Juarez Active DILANTIN 100 MG CAPS Take three by mouth daily PHENYTOIN SODIUM EXTENDED 81090099167 No Longer Active Marianela Juarez Active SENOKOT 8.6 MG TABS take at bedtime SENNOSIDES 90697476740 Active Glenn Thornton MD Active LIPITOR 20 MG TABS take at bedtime ATORVASTATIN CALCIUM 53035894494 Active Glenn Thornton MD Active LISINOPRIL 2.5 MG TABS Take one by mouth daily LISINOPRIL 48297880261 Active Glenn Thornton MD Active TRENTAL 400 MG CR-TABS by mouth twice a day PENTOXIFYLLINE 45051228921 Active Glenn Thornton MD Active BUSPIRONE HCL 10 MG TABS by mouth twice a day BUSPIRONE HCL 08876041164 Active Glenn Thornton MD Active FUROSEMIDE 40 MG TABS Take one by mouth daily FUROSEMIDE 76994354529 Active Glenn Thornton MD Active KLOR-CON 10 10 MEQ CR-TABS Take one by mouth daily POTASSIUM CHLORIDE 07539505713 Active Glenn Thornton MD Active DILANTIN 100 MG CAPS Take three by mouth daily DILANTIN 100 MG CAPS 860846 PHENYTOIN SODIUM EXTENDED Inactive LAMICTAL 150 MG TABS by mouth twice a day LAMICTAL 150 MG TABS 19831025 LAMOTRIGINE Inactive LAMICTAL 100 MG TABS by mouth twice a day LAMICTAL 100 MG TABS 19831024 LAMOTRIGINE Inactive DEPAKOTE SPRINKLES 125 MG CPSP 4 capsules by mouth twice daily DEPAKOTE SPRINKLES 125 MG CPSP 7314261 DIVALPROEX SODIUM Inactive DILANTIN 100 MG CAPS Take one by mouth daily DILANTIN 100 MG CAPS 803951 PHENYTOIN SODIUM EXTENDED Inactive INVEGA 6 MG ORAL [id number] 1 TAB ONCE DAILY INVEGA 6 MG ORAL [id number] PALIPERIDONE Inactive TYLENOL 325 MG TAB 1-2 pills by mouth every 6 hours if needed for pain/fever TYLENOL 325 MG TAB 515823 ACETAMINOPHEN Inactive ZOFRAN 4 MG TABS 1 po q6hr PRN Nausea ZOFRAN 4 MG TABS 991879 ONDANSETRON HCL Inactive ADULT ASPIRIN EC LOW STRENGTH 81 MG TBEC Take one by mouth daily ADULT ASPIRIN EC LOW STRENGTH 81 MG TBEC 056259 ASPIRIN Inactive Advance Directives Directive Description Start Date DURABLE POWER OF AUTOMOBILE TESTER FOR HEALTHCARE PERMISSION TO SHARE ADVANCED DIRECTIVE Vital Signs Date Name Value Unit Range Description blood pressure, diastolic - 8462-4 77 mm[Hg] [...] mg/dL Encounters Code Encounter Date Provider Facility CPT-43730 Level 4 Est. 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 Patient 22:19:34 CDT Pelon Quach MD [facility] CPT-97997 Level 3 Est. Patient 00:34:41 CDT Pelon Quach MD [facility] CPT-49313 Level 4 Est. Patient 11:19:14 CDT Pelon Quach MD [facility] CPT-98936 Level 4 Est. 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 Patient 12:42:18 CDT Pelon Quach MD [facility] CPT-38370 Level 4 Est. Patient 11:52:20 CDT Pelon Quach MD [facility] CPT-01292 Level 4 Est. Patient 13:59:46 CDT Pelon Quach MD [facility] CPT-09200 Level 4 Est. Patient 15:10:48 CDT Pelon Quach MD [facility] CPT-52445 Level 4 Est. Patient 17:13:06 CDT Pelon Quach MD [facility] CPT-96835 Level 4 Est. Patient 18:47:47 CDT Pelon Quach MD [facility] CPT-93664 Level 3 Est. Patient 21:01:27 CDT Pelon Quach MD [facility] CPT-78201 Level 3 Est. 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 Patient 14:28:44 CDT Gelnn Thornton MD [facility] CPT-16815 Level 3 Est. Patient 16:35:00 CDT Glenn Thornton MD [facility] CPT-93439 Level 4 New Patient 17:06:27 CDT Glenn Thornton MD [facility] [place] Procedures Code Procedure Name Date Entry Date Standard Description CPT-90900 Cystoscopy 14:28:44 CDT CPT-15978 Bladder Scan 14:28:44 CDT CPT-08952 Indwelling Cath Change 17:06:27 CDT CPT-15997 Cystoscopy 17:06:27 CDT
--- OUTSIDE RECORDS SUMMARY | 2018-06-22 11:49 | XMS REPORT | Clinical Summary ---
Author Author Admin, ONESIMO Organization [facility] Address Unknown Phone Unavailable Allergies, Adverse Reactions, [...] HOUR 1 po daily for schizophrenia PALIPERIDONE 53667492397 Active Pelon Quach MD Active LAMICTAL 25 MG ORAL TABLET 2 tabs by mouth twice a day LAMOTRIGINE 61507029962 No Longer Active Pelon Quach MD Active BACTROBAN 2 % EXTERNAL OINTMENT Apply to affected area BID 06/28 MUPIROCIN 02786224461 No Longer Active Pelon Quach MD Active BANOPHEN 25 MG ORAL TABLET 1 po every 6 hours PRN allergic reaction DIPHENHYDRAMINE HCL 56931463008 Active NICOLETTE Hitchcock Active INVEGA 6 MG ORAL TABLET EXTENDED RELEASE 24 HOUR 1 po daily for Schizophrenia PALIPERIDONE 68332920675 No Longer Active Pelon Quach MD Active TYLENOL 8 HOUR 650 MG ORAL TABLET EXTENDED RELEASE Take 1 tab po up to 3 times daily as needed ACETAMINOPHEN 45512274207 No Longer Active Pelon Quach MD Active IPRATROPIUM-ALBUTEROL 0.5-2.5 (3) MG/3ML INHALATION SOLUTION 1 neb treatment QID for cough Dx: J06.9 IPRATROPIUM-ALBUTEROL 33632020229 No Longer Active Pelon Quach MD Active BACTRIM DS 800-160 MG ORAL TABLET 1 tab by mouth twice daily 2016 TRIMETHOPRIM-SULFAMETHOXAZOLE 46197599018 No Longer Active Pelon Quach MD Active BACTRIM DS 800-160 MG ORAL TABLET 1 twice a day SULFAMETHOXAZOLE-TRIMETHOPRIM 15693593214 No Longer Active Pelon Quach MD Active IPRATROPIUM-ALBUTEROL 0.5-2.5 (3) MG/3ML INHALATION SOLUTION 1 neb treatment four times daily, for cough IPRATROPIUM-ALBUTEROL 50541306803 No Longer Active Jaycee Garcia APRN Active FUROSEMIDE 40 MG ORAL TABLET Take one by mouth daily FUROSEMIDE 15719801862 No Longer Active Jaycee Garcia APRN Active LANTUS 100 UNIT/ML SUBCUTANEOUS SOLUTION 20 SUBQ AT HS INSULIN GLARGINE 20932581535 Active Pelon Quach MD Active LAMICTAL 25 MG ORAL TABLET 2 tabs po BID for convulsions LAMOTRIGINE 09441287535 Active Jaycee Garcia APRN Active LASIX 20 MG ORAL TABLET 1 tablet by mouth every morning for edema FUROSEMIDE 34910903054 Active Jaycee Garcia APRN Active BUSPIRONE HCL 10 MG ORAL TABLET 1 tab by mouth BID BUSPIRONE HCL 18853948319 Active Jaycee Garcia APRN Active NOVOLOG 100 UNIT/ML SUBCUTANEOUS SOLUTION 10 UNITS BEFORE SUPPER INSULIN ASPART 18137645303 Active Jaycee Garcia APRN Active NOVOLOG 100 UNIT/ML SUBCUTANEOUS SOLUTION 10 UNITS BID BEFORE BREAKFAST AND LUNCH INSULIN ASPART 35488059591 Active Jaycee Garcia APRN Active ADULT ASPIRIN EC LOW STRENGTH 81 MG ORAL TABLET DELAYED RELEASE Take one by mouth daily ASPIRIN 53485594412 No Longer Active Pelon Quach MD Active ASPIRIN 81 MG ORAL TABLET 1 po qd ASPIRIN 56772458997 Active Pelon Quach MD Active ZOFRAN 4 MG ORAL TABLET 1 po q6hr PRN Nausea ONDANSETRON HCL 30306714458 No Longer Active Pelon Quach MD Active TYLENOL 325 MG ORAL TABLET 1-2 pills by mouth every 6 hours if needed for pain /fever ACETAMINOPHEN 75036903409 No Longer Active Pelon Quach MD Active INVEGA 6 MG ORAL TABLET EXTENDED RELEASE 24 HOUR 1 TAB ONCE DAILY PALIPERIDONE 19124919727 No Longer Active Carly Suggs Active TEGRETOL 200 MG ORAL TABLET by mouth twice a day CARBAMAZEPINE 02619726304 Active Taty Alvarado MD PhD Active FLOMAX 0.4 MG ORAL CAPSULE 1 Daily TAMSULOSIN HCL 43537801928 Active Marianela Juarez Active DILANTIN 100 MG ORAL CAPSULE Take one by mouth daily PHENYTOIN SODIUM EXTENDED 75521188840 No Longer Active Marianela Juarez Active DEPAKOTE SPRINKLES 125 MG ORAL CAPSULE DELAYED RELEASE SPRINKLE 4 capsules by mouth twice daily DIVALPROEX SODIUM 76902515372 No Longer Active Marianela Juarez Active LAMICTAL 200 MG ORAL TABLET 1 BY MOUTH TWICE A DAY LAMOTRIGINE 27575792057 Active Marianelachandrika Juarez Active LAMICTAL 100 MG ORAL TABLET by mouth twice a day LAMOTRIGINE 06705625404 No Longer Active Marianelachandrika Juarez Active LAMICTAL 150 MG ORAL TABLET by mouth twice a day LAMOTRIGINE 28261781748 No Longer Active Marianela Juarez Active DILANTIN 100 MG ORAL CAPSULE Take three by mouth daily PHENYTOIN SODIUM EXTENDED 43655353337 No Longer Active Marianela Juarez Active SENOKOT 8.6 MG ORAL TABLET take at bedtime SENNOSIDES 92360748918 Active Glenn Thornton MD Active LIPITOR 20 MG ORAL TABLET take at bedtime ATORVASTATIN CALCIUM 18376386822 Active Glenn Thornton MD Active LISINOPRIL 2.5 MG ORAL TABLET Take one by mouth daily LISINOPRIL 66400706527 Active Glenn Thornton MD Active TRENTAL 400 MG CR-TABS by mouth twice a day PENTOXIFYLLINE 04188253031 Active Glenn Thornton MD Active KLOR-CON 10 10 MEQ ORAL TABLET EXTENDED RELEASE Take one by mouth daily POTASSIUM CHLORIDE 15088012678 Active Glenn Thornton MD Active DILANTIN 100 MG ORAL CAPSULE Take three by mouth daily DILANTIN 100 MG ORAL CAPSULE 255810 PHENYTOIN SODIUM EXTENDED Inactive LAMICTAL 150 MG ORAL TABLET by mouth twice a day LAMICTAL 150 MG ORAL TABLET 056111 LAMOTRIGINE Inactive LAMICTAL 100 MG ORAL TABLET by mouth twice a day LAMICTAL 100 MG ORAL TABLET 067419 LAMOTRIGINE Inactive DEPAKOTE SPRINKLES 125 MG ORAL CAPSULE DELAYED RELEASE SPRINKLE 4 capsules by mouth twice daily DEPAKOTE SPRINKLES 125 MG ORAL CAPSULE DELAYED RELEASE SPRINKLE 3872685 DIVALPROEX SODIUM Inactive DILANTIN 100 MG ORAL CAPSULE Take one by mouth daily DILANTIN 100 MG ORAL CAPSULE 050405 PHENYTOIN SODIUM EXTENDED Inactive INVEGA 6 MG ORAL TABLET EXTENDED RELEASE 24 HOUR 1 TAB ONCE DAILY INVEGA 6 MG ORAL TABLET EXTENDED RELEASE 24 HOUR PALIPERIDONE Inactive TYLENOL 325 MG ORAL TABLET 1-2 pills by mouth every 6 hours if needed for pain /fever TYLENOL 325 MG ORAL TABLET 668239 ACETAMINOPHEN Inactive ZOFRAN 4 MG ORAL TABLET 1 po q6hr PRN Nausea ZOFRAN 4 MG ORAL TABLET 755176 ONDANSETRON HCL Inactive ADULT ASPIRIN EC LOW STRENGTH 81 MG ORAL TABLET DELAYED RELEASE Take one by mouth daily ADULT ASPIRIN EC LOW STRENGTH 81 MG ORAL TABLET DELAYED RELEASE 321628 ASPIRIN Inactive FUROSEMIDE 40 MG ORAL TABLET Take one by mouth daily FUROSEMIDE 40 MG ORAL TABLET 850997 FUROSEMIDE Inactive BACTRIM DS 800-160 MG ORAL TABLET 1 twice a day BACTRIM DS 800-160 MG ORAL TABLET 285644 SULFAMETHOXAZOLE-TRIMETHOPRIM Inactive IPRATROPIUM-ALBUTEROL 0.5-2.5 (3) MG/3ML INHALATION SOLUTION 1 neb treatment QID for cough Dx: J06.9 IPRATROPIUM-ALBUTEROL 0.5-2.5 ( 3) MG/3ML INHALATION SOLUTION 0390205 IPRATROPIUM-ALBUTEROL Inactive TYLENOL 8 HOUR 650 MG [...] BID 06/28 BACTROBAN 2 % EXTERNAL OINTMENT 277048 MUPIROCIN Inactive LAMICTAL 25 MG ORAL TABLET 2 tabs by mouth twice a day LAMICTAL 25 MG ORAL TABLET 346324 LAMOTRIGINE Inactive IPRATROPIUM-ALBUTEROL 0.5-2.5 (3) MG/3ML INHALATION SOLUTION 1 neb treatment four times daily, for cough IPRATROPIUM-ALBUTEROL 0.5- 2.5 (3) MG/3ML INHALATION SOLUTION 8517873 IPRATROPIUM-ALBUTEROL Inactive BACTRIM DS 800-160 MG ORAL TABLET 1 tab by mouth twice daily 2016 BACTRIM DS 800-160 MG ORAL TABLET 756622 TRIMETHOPRIM- SULFAMETHOXAZOLE Inactive Advance Directives Directive Description Start Date DURABLE POWER OF LEAD SOLUTIONS ARCHITECT FOR HEALTHCARE PERMISSION TO SHARE ADVANCED DIRECTIVE [...] Panel - Chemistry sodium, serum 127 mmol/L 672-980 9681/07/28 potassium, serum 5.3 mmol/L 3.5-5.2 chloride, serum 92 mmol/L 98-107 carbon dioxide, venous blood 32.4 mmol/L 21.0-32.0 blood glucose 182 mg/dL 65-110 calcium, serum 9.4 mg/dL 8.5-10.1 urea nitrogen, blood 14 mg/dL 7-18 creatinine, serum 0.94 mg/dL 0.60-1.30 Lab Report: CBC, Comp. Metabolic Panel - Chemistry sodium, serum 129 mmol/L 029-697 7280/07/12 carbon dioxide, venous blood 27.8 mmol/L 21.0-32.0 [...] mg/dL Encounters Code Encounter Date Provider Facility CPT-51555 Level 4 Est. Patient 14:46:38 CDT Pelon Quach MD [facility] CPT-45485 Level 4 Est. Patient 08:43:11 CDT Pelon Quach MD [facility] CPT-03506 Level 4 Est. Patient 14:27:30 CDT Pelon Quach MD [facility] CPT-45358 Level 3 Est. Patient 10:32:17 CDT Jaycee Garcia [facility] CPT-22837 Level 3 Est. Patient 10:15:07 CDT Pelon Quach MD [facility] CPT-32211 Level 4 Est. Patient 09:30:54 CDT Pelon Quach MD [facility] CPT-97263 Level 4 Est. Patient 14:34:25 CDT Pelon Quach MD [facility] CPT-95925 Level 3 Est. 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 Patient 09:40:44 RETAIL CLIENT MANAGER Jaycee Garcia [facility] CPT-19647 Level 3 Est. 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 Patient 22:19:34 CDT Pelon Quach MD [facility]-38672 Level 3 Est. Patient 00:34:41 CDT Pelon Quach MD [facility]-40978 Level 4 Est. Patient 11:19:14 CDT Pelon Quach MD [facility]-18398 Level 4 Est. 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 Patient 12:42:18 CDT Pelon Quach MD [facility]-89820 Level 4 Est. Patient 11:52:20 CDT Pelon Quach MD [facility]-82441 Level 4 Est. Patient 13:59:46 CDT Pelon Quach MD [facility]-13470 Level 4 Est. Patient 15:10:48 CDT Pelon uQach MD [facility]-83080 Level 4 Est. Patient 17:13:06 CDT Pelon Quach MD [facility]-80590 Level 4 Est. Patient 18:47:47 CDT Pelon Quach MD [facility]-21072 Level 3 Est. Patient 21:01:27 CDT Pelon Quach MD [facility] CPT-44513 Level 3 Est. 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 Patient 14:28:44 CDT Glenn Thornton MD [facility]-98067 Level 3 Est. 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
--- OUTSIDE RECORDS SUMMARY | 2018-06-22 11:49 | XMS REPORT | Clinical Summary ---
Author Author Admin, ONESIMO Organization [facility] [place] Address Unknown Phone Unavailable Allergies, Adverse Reactions, [...] Generic Name NDC Status Provider Patient Instruction BENADRYL 25 MG ORAL CAPSULE 1 po q8hr PRN Congestion DIPHENHYDRAMINE HCL 53481190750 Active Pelon Quach MD Active ZOFRAN 4 MG ORAL TABLET 1 po q6hr PRN Nausea ONDANSETRON HCL 89312879617 Active Pelon Quach MD Active IMODIUM A-D 2 MG ORAL TABLET One QID prn diarrhea. No more than 4 tabs daily LOPERAMIDE HCL 78738294227 Active Pelon Quach MD Active TYLENOL 325 MG ORAL TABLET 2 tabs po prn for pain elevated temp ACETAMINOPHEN 26832205883 Active Pelon Quach MD Active MUCINEX D 60-600 MG ORAL TABLET EXTENDED RELEASE 12 HOUR 1 po BID PRN Congestion PSEUDOEPHEDRINE-GUAIFENESIN 42863759244 Active Pelon Quach MD Active IBUPROFEN 200 MG ORAL TABLET q 6hrs prn pain IBUPROFEN 80514390904 Active Pelon Quach MD Active LORATADINE 10 MG ORAL TABLET 1 tablet by mouth daily prn LORATADINE 27451135470 Active Pelon Quach MD Active BANOPHEN 25 MG ORAL TABLET 1 po every 6 hours PRN allergic reaction DIPHENHYDRAMINE HCL 03910178714 No Longer Active Pelon Quach MD Active EASY TOUCH ALCOHOL PREP MEDIUM 70 % PAD Use with each finger stick and insulin admin Dx: E11.9 ALCOHOL SWABS 67921035785 Active Jaycee Torrez BISQUE KILN PLACER Active HUMALOG KWIKPEN 100 UNIT/ML SUBCUTANEOUS SOLUTION PEN-INJECTOR inject 10 units subcutaneously before meals also sliding scale INSULIN LISPRO 19233268033 Active Pelon Quach MD Active NOVOLOG 100 UNIT/ML SUBCUTANEOUS SOLUTION 10 UNITS BID BEFORE BREAKFAST AND LUNCH INSULIN ASPART 29314755508 No Longer Active NICOLETTE Hitchcock Active NOVOLOG 100 UNIT/ML SUBCUTANEOUS SOLUTION 10 UNITS BEFORE SUPPER INSULIN ASPART 52263511709 No Longer Active NICOLETTE Hitchcock Active INVEGA 6 MG ORAL TABLET EXTENDED RELEASE 24 HOUR 1 po daily for schizophrenia PALIPERIDONE 55953814859 Active Pelon Quach MD Active LAMICTAL 25 MG ORAL TABLET 2 tabs by mouth twice a day LAMOTRIGINE 44318983347 No Longer Active Pelon Quach MD Active BACTROBAN 2 % EXTERNAL OINTMENT Apply to affected area BID 06/28 MUPIROCIN 06950049397 No Longer Active Pelon Quach MD Active INVEGA 6 MG ORAL TABLET EXTENDED RELEASE 24 HOUR 1 po daily for Schizophrenia PALIPERIDONE 63837925307 No Longer Active Pelon Quach MD Active TYLENOL 8 HOUR 650 MG ORAL TABLET EXTENDED RELEASE Take 1 tab po up to 3 times daily as needed ACETAMINOPHEN 21884056778 No Longer Active Pelon Quach MD Active IPRATROPIUM-ALBUTEROL 0.5-2.5 (3) MG/3ML INHALATION SOLUTION 1 neb treatment QID for cough Dx: J06.9 IPRATROPIUM-ALBUTEROL 56693663769 No Longer Active Pelon Quach MD Active BACTRIM DS 800-160 MG ORAL TABLET 1 tab by mouth twice daily 2016 TRIMETHOPRIM-SULFAMETHOXAZOLE 08225465847 No Longer Active Pelon Quach MD Active BACTRIM DS 800-160 MG ORAL TABLET 1 twice a day SULFAMETHOXAZOLE-TRIMETHOPRIM 36503691969 No Longer Active Pelon Quach MD Active IPRATROPIUM-ALBUTEROL 0.5-2.5 (3) MG/3ML INHALATION SOLUTION 1 neb treatment four times daily, for cough IPRATROPIUM-ALBUTEROL 63941973704 No Longer Active Jaycee Torrez APRN Active FUROSEMIDE 40 MG ORAL TABLET Take one by mouth daily FUROSEMIDE 82865599637 No Longer Active Jaycee Arell BISQUE KILN PLACER Active LANTUS 100 UNIT/ML SUBCUTANEOUS SOLUTION 20 SUBQ AT HS INSULIN GLARGINE 53876467131 Active Pelon Quach MD Active LAMICTAL 25 MG ORAL TABLET 2 tabs po BID for convulsions LAMOTRIGINE 42912646732 Active Jaycee Arenando MOJICAN Active LASIX 20 MG ORAL TABLET 1 tablet by mouth every morning for edema FUROSEMIDE 04766554622 Active Jaycee Arenando MOJICAN Active BUSPIRONE HCL 10 MG ORAL TABLET 1 tab by mouth BID BUSPIRONE HCL 19752522049 Active Jaycee Torrez APRN Active ADULT ASPIRIN EC LOW STRENGTH 81 MG ORAL TABLET DELAYED RELEASE Take one by mouth daily ASPIRIN 65741557338 No Longer Active Pelon Quach MD Active ASPIRIN 81 MG ORAL TABLET 1 po qd ASPIRIN 40348448331 Active Pelon Quach MD Active ZOFRAN 4 MG ORAL TABLET 1 po q6hr PRN Nausea ONDANSETRON HCL 55937847524 No Longer Active Pelon Quach MD Active TYLENOL 325 MG ORAL TABLET 1-2 pills by mouth every 6 hours if needed for pain /fever ACETAMINOPHEN 44936238211 No Longer Active Pelon Quach MD Active INVEGA 6 MG ORAL TABLET EXTENDED RELEASE 24 HOUR 1 TAB ONCE DAILY PALIPERIDONE 18887387117 No Longer Active Carly Suggs Active TEGRETOL 200 MG ORAL TABLET by mouth twice a day CARBAMAZEPINE 13939505441 Active Taty Alvarado MD PhD Active FLOMAX 0.4 MG ORAL CAPSULE 1 Daily TAMSULOSIN HCL 37766688486 Active Marianela Juarez Active DILANTIN 100 MG ORAL CAPSULE Take one by mouth daily PHENYTOIN SODIUM EXTENDED 94237490316 No Longer Active Marianela Juarez Active DEPAKOTE SPRINKLES 125 MG ORAL CAPSULE DELAYED RELEASE SPRINKLE 4 capsules by mouth twice daily DIVALPROEX SODIUM 80602660581 No Longer Active Marianelachandrika Juarez Active LAMICTAL 200 MG ORAL TABLET 1 BY MOUTH TWICE A DAY LAMOTRIGINE 08712816074 Active Marianelachandrika Juarez Active LAMICTAL 100 MG ORAL TABLET by mouth twice a day LAMOTRIGINE 86006283560 No Longer Active Marianelachandrika Juarez Active LAMICTAL 150 MG ORAL TABLET by mouth twice a day LAMOTRIGINE 73699072429 No Longer Active Marianelachandrika Juarez Active DILANTIN 100 MG ORAL CAPSULE Take three by mouth daily PHENYTOIN SODIUM EXTENDED 52849800572 No Longer Active Marianela Juarez Active SENOKOT 8.6 MG ORAL TABLET take at bedtime SENNOSIDES 79100488380 Active Pelon Quach MD Active LIPITOR 20 MG ORAL TABLET take at bedtime ATORVASTATIN CALCIUM 12609340209 Active Glenn Thornton MD Active LISINOPRIL 2.5 MG ORAL TABLET Take one by mouth daily LISINOPRIL 62610505494 Active Glenn Thornton MD Active TRENTAL 400 MG CR-TABS by mouth twice a day PENTOXIFYLLINE 93734400426 Active Glenn Thornton MD Active KLOR-CON 10 10 MEQ ORAL TABLET EXTENDED RELEASE Take one by mouth daily POTASSIUM CHLORIDE 40247996399 Active Glenn Thornton MD Active BACTRIM DS 800-160 MG ORAL TABLET 1 twice a day BACTRIM DS 800-160 MG ORAL TABLET 19821119 SULFAMETHOXAZOLE-TRIMETHOPRIM Inactive BACTRIM DS 800-160 MG ORAL TABLET 1 tab by mouth twice daily 2016 BACTRIM DS 800-160 MG ORAL TABLET 19821119 TRIMETHOPRIM- SULFAMETHOXAZOLE Inactive BACTROBAN 2 % EXTERNAL OINTMENT Apply to affected area BID 06/28 BACTROBAN 2 % EXTERNAL OINTMENT 499556 MUPIROCIN Inactive DILANTIN 100 MG ORAL CAPSULE Take three by mouth daily DILANTIN 100 MG ORAL CAPSULE 192522 PHENYTOIN SODIUM EXTENDED Inactive DILANTIN 100 MG ORAL CAPSULE Take one by mouth daily DILANTIN 100 MG ORAL CAPSULE 267552 PHENYTOIN SODIUM EXTENDED Inactive FUROSEMIDE 40 MG ORAL TABLET Take one by mouth daily FUROSEMIDE 40 MG ORAL TABLET 006192 FUROSEMIDE Inactive TYLENOL 325 MG ORAL TABLET 1-2 pills by mouth every 6 hours if needed for pain /fever TYLENOL 325 MG ORAL TABLET 447709 ACETAMINOPHEN Inactive ZOFRAN 4 MG ORAL TABLET 1 po q6hr PRN Nausea ZOFRAN 4 MG ORAL TABLET 736742 ONDANSETRON HCL Inactive LAMICTAL 100 MG ORAL TABLET by mouth twice a day LAMICTAL 100 MG ORAL TABLET 247266 LAMOTRIGINE Inactive LAMICTAL 150 MG ORAL TABLET by mouth twice a day LAMICTAL 150 MG ORAL TABLET 558580 LAMOTRIGINE Inactive LAMICTAL 25 MG ORAL TABLET 2 tabs by mouth twice a day LAMICTAL 25 MG ORAL TABLET 760334 LAMOTRIGINE Inactive BANOPHEN 25 MG ORAL TABLET 1 po every 6 hours PRN allergic reaction BANOPHEN 25 MG ORAL TABLET 4416914 DIPHENHYDRAMINE HCL Inactive ADULT ASPIRIN EC LOW STRENGTH 81 MG ORAL TABLET DELAYED RELEASE Take one by mouth daily ADULT ASPIRIN EC LOW STRENGTH 81 MG ORAL TABLET DELAYED RELEASE 736364 ASPIRIN Inactive NOVOLOG 100 UNIT/ML SUBCUTANEOUS SOLUTION [...] IPRATROPIUM-ALBUTEROL 0.5-2.5 ( 3) MG/3ML INHALATION SOLUTION 9792245 IPRATROPIUM-ALBUTEROL Inactive IPRATROPIUM-ALBUTEROL 0.5-2.5 (3) MG/3ML INHALATION SOLUTION 1 neb treatment four times daily, for cough IPRATROPIUM-ALBUTEROL 0.5- 2.5 (3) MG/3ML INHALATION SOLUTION 3450102 IPRATROPIUM-ALBUTEROL Inactive DEPAKOTE SPRINKLES 125 MG ORAL CAPSULE DELAYED RELEASE SPRINKLE 4 capsules by mouth twice daily DEPAKOTE SPRINKLES 125 MG ORAL CAPSULE DELAYED RELEASE SPRINKLE 2621345 DIVALPROEX SODIUM Inactive Advance Directives Directive Description Start Date DURABLE POWER OF EVP SALES FOR HEALTHCARE PERMISSION TO SHARE ADVANCED DIRECTIVE [...] Panel - Chemistry sodium, serum 127 mmol/L 182-885 5502/07/28 potassium, serum 5.3 mmol/L 3.5-5.2 chloride, serum 92 mmol/L 98-107 carbon dioxide, venous blood 32.4 mmol/L 21.0-32.0 blood glucose 182 mg/dL 65-110 calcium, serum 9.4 mg/dL 8.5-10.1 urea nitrogen, blood 14 mg/dL 7-18 creatinine, serum 0.94 mg/dL 0.60-1.30 Lab Report: CBC, Comp. Metabolic Panel - Chemistry sodium, serum 129 mmol/L 928-260 2028/07/12 carbon dioxide, venous blood 27.8 mmol/L 21.0-32.0 [...] HGBA1C - Chemistry sodium, serum 123 mmol/L 895-931 7751/04/25 carbon dioxide, venous blood 26.2 mmol/L 21.0-32.0 [...] mg/dL Encounters Code Encounter Date Provider Facility CPT-01676 Level 4 Est. Patient 14:46:38 CDT ePlon Quach MD [facility] CPT-84563 Level 4 Est. Patient 08:43:11 CDT Pelon Quach MD [facility] CPT-12263 Level 4 Est. Patient 14:27:30 CDT Pelon Quach MD [facility] CPT-78969 Level 3 Est. Patient 10:32:17 CDT Jaycee Torrez [facility] CPT-83008 Level 3 Est. Patient 10:15:07 CDT Pelon Quach MD [facility] CPT-46420 Level 4 Est. Patient 09:30:54 CDT Pelon Quach MD [facility] CPT-20859 Level 4 Est. Patient 14:34:25 CDT Pelon Quach MD [facility] CPT-59076 Level 3 Est. 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 Patient 12:13:33 SLICE PLUG CUTTER OPERATOR HELPER Erik Baptiste MD [facility] CPT-85166 Level 3 Est. Patient 09:40:44 SLICE PLUG CUTTER OPERATOR HELPER Jaycee Torrez [facility] CPT-75139 Level 3 Est. Patient 09:36:32 SLICE PLUG CUTTER OPERATOR HELPER Jaycee Torrez BISQUE KILN PLACER [facility] CPT-33684 Level 4 Est. Patient 16:57:02 SLICE PLUG CUTTER OPERATOR HELPER Pelon Quach MD [facility] CPT-42637 Level 4 Est. Patient 22:19:34 CDT Pelon Quach MD [facility] CPT-70761 Level 3 Est. Patient 00:34:41 CDT Pelon Quach MD [facility]-59813 Level 4 Est. Patient 11:19:14 CDT Pelon Quach MD [facility]-03296 Level 4 Est. Patient 16:43:30 SLICE PLUG CUTTER OPERATOR HELPER Pelon Quach MD [facility]-21697 Level 4 Est. Patient 12:42:18 CDT Pelon Quach MD [facility] CPT-15324 Level 4 Est. Patient 11:52:20 CDT Pelon Quach MD [facility]-27023 Level 4 Est. Patient 13:59:46 CDT Pelon Quach MD [facility]-30014 Level 4 Est. Patient 15:10:48 CDT Pelon Quach MD [facility]-12969 Level 4 Est. Patient 17:13:06 CDT Pelon Quach MD [facility] CPT-82910 Level 4 Est. Patient 18:47:47 CDT Pelon Quach MD [facility]-35577 Level 3 Est. Patient 21:01:27 CDT Pelon Quach MD [facility]-64669 Level 3 Est. Patient 14:07:03 CDT Taty Alvarado MD PhD [facility] CPT-83792 Level 3 New Patient 21:39:52 SLICE PLUG CUTTER OPERATOR HELPER Pelon Quach MD [facility]-21592 Level 3 Est. Patient 14:28:44 CDT Glenn Thornton MD [facility]-39359 Level 3 Est. Patient 16:35:00 CDT Glenn Thornton MD [facility] CPT-40033 Level 4 New Patient 17:06:27 CDT Glenn Thornton MD [facility] [place] Procedures Code Procedure Name Date Entry Date Standard Description CPT-G0438 Initial Annual Wellness Exam 09:30:54 CDT CPT-89479 Prevnar 13 Intramuscular Suspension 14:34:25 CDT 12/27 CPT-38926 Chest 2V Frontal and Lat - XRAY USE ONLY 11:56:13 SLICE PLUG CUTTER OPERATOR HELPER CPT-95944 Cystoscopy 14:28:44 CDT CPT-77663 Bladder Scan 14:28:44 CDT CPT-99743 Indwelling Cath Change 17:06:27 CDT CPT-46539 Cystoscopy 17:06:27 CDT
--- OUTSIDE RECORDS SUMMARY | 2018-06-22 11:50 | XMS REPORT | Clinical Summary ---
Author Author Admin, ONESIMO Organization [facility] Address Unknown Phone Unavailable Allergies, Adverse Reactions, [...] TABS 1 twice a day SULFAMETHOXAZOLE- TRIMETHOPRIM 88087162869 Active Erik Baptiste MD Active IPRATROPIUM-ALBUTEROL 0.5-2.5 (3) MG/3ML INH SOLN 1 neb treatment QID for cough Dx: J06.9 IPRATROPIUM-ALBUTEROL 08644004966 Active Jaycee Garcia APRN Active IPRATROPIUM-ALBUTEROL 0.5-2.5 (3) MG/3ML SOLN 1 neb treatment four times daily , for cough IPRATROPIUM-ALBUTEROL 18782933307 No Longer Active Jaycee Garcia APRN Active TYLENOL 8 HOUR 650 MG ORAL CR-TABS Take 1 tab po up to 3 times daily as needed ACETAMINOPHEN 25817166567 Active Jaycee Jose SENIOR BUSINESS MANAGER Active FUROSEMIDE 40 MG TABS Take one by mouth daily FUROSEMIDE 34110668789 No Longer Active Jaycee Garcia VICTORINO Active LANTUS 100 UNIT/ML SC SOLN 20 SUBQ AT HS INSULIN GLARGINE 88641124942 Active Jaycee Jose SENIOR BUSINESS MANAGER Active LAMICTAL 25 MG ORAL TABS 2 tabs po BID for convulsions LAMOTRIGINE 66001163598 Active Jaycee Garcia VICTORINO Active INVEGA 6 MG ORAL [id number] 1 po daily for Schizophrenia PALIPERIDONE 09370284405 Active Jaycee Garcia VICTORINO Active LASIX 20 MG TAB 1 tablet by mouth every morning for edema FUROSEMIDE 64542346218 Active Jayceehugo Garcia APRN Active BUSPIRONE HCL 10 MG TABS 1 tab by mouth BID BUSPIRONE HCL 79550855345 Active Jaycee Garcia VICTORINO Active NOVOLOG 100 UNIT/ML SC SOLN 10 UNITS BEFORE SUPPER INSULIN ASPART 88289733243 Active Jaycee Garcia VICTORINO Active NOVOLOG 100 UNIT/ML SC SOLN 10 UNITS BID BEFORE BREAKFAST AND LUNCH INSULIN ASPART 27126147561 Active Jaycee Garcia VICTORINO Active LAMICTAL 25 MG TABS 2 tabs by mouth twice a day LAMOTRIGINE 20847110281 Active Pelon Quach MD Active ADULT ASPIRIN EC LOW STRENGTH 81 MG TBEC Take one by mouth daily ASPIRIN 52180977229 No Longer Active Pelon Quach MD Active ASPIRIN 81 MG ORAL TABS 1 po qd ASPIRIN 69246483463 Active Pelon Quach MD Active ZOFRAN 4 MG TABS 1 po q6hr PRN Nausea ONDANSETRON HCL 25632679127 No Longer Active Pelon Quach MD Active TYLENOL 325 MG TAB 1-2 pills by mouth every 6 hours if needed for pain/fever ACETAMINOPHEN 79436903096 No Longer Active Pelon Quach MD Active INVEGA 6 MG ORAL [id number] 1 TAB ONCE DAILY PALIPERIDONE 36964399279 No Longer Active Carly Suggs Active TEGRETOL 200 MG TABS by mouth twice a day CARBAMAZEPINE 26184092717 Active Taty Alvarado MD PhD Active FLOMAX 0.4 MG CAPS 1 Daily TAMSULOSIN HCL 85527875309 Active Marinaelachandrika Juarez Active DILANTIN 100 MG CAPS Take one by mouth daily PHENYTOIN SODIUM EXTENDED 86824072210 No Longer Active Marianelachandrika Juarez Active DEPAKOTE SPRINKLES 125 MG CPSP 4 capsules by mouth twice daily DIVALPROEX SODIUM 60802566022 No Longer Active Marianelachandrika Juarez Active LAMICTAL 200 MG ORAL TABS 1 BY MOUTH TWICE A DAY LAMOTRIGINE 55543845621 Active Marianelachandrika Juarez Active LAMICTAL 100 MG TABS by mouth twice a day LAMOTRIGINE 39835650882 No Longer Active Marianelachadnrika Juarez Active LAMICTAL 150 MG TABS by mouth twice a day LAMOTRIGINE 80090763291 No Longer Active Marianelachandrika Juarez Active DILANTIN 100 MG CAPS Take three by mouth daily PHENYTOIN SODIUM EXTENDED 82740560528 No Longer Active Marianela Juarez Active SENOKOT 8.6 MG TABS take at bedtime SENNOSIDES 49584800129 Active Glenn Thornton MD Active LIPITOR 20 MG TABS take at bedtime ATORVASTATIN CALCIUM 07375433457 Active Glenn Thornton MD Active LISINOPRIL 2.5 MG TABS Take one by mouth daily LISINOPRIL 65695786895 Active Glenn Thornton MD Active TRENTAL 400 MG CR-TABS by mouth twice a day PENTOXIFYLLINE 30050234864 Active Glenn Thornton MD Active KLOR-CON 10 10 MEQ CR-TABS Take one by mouth daily POTASSIUM CHLORIDE 41198710867 Active Glenn Thornton MD Active DILANTIN 100 MG CAPS Take three by mouth daily DILANTIN 100 MG CAPS 011757 PHENYTOIN SODIUM EXTENDED Inactive LAMICTAL 150 MG TABS by mouth twice a day LAMICTAL 150 MG TABS 19831025 LAMOTRIGINE Inactive LAMICTAL 100 MG TABS by mouth twice a day LAMICTAL 100 MG TABS 19831024 LAMOTRIGINE Inactive DEPAKOTE SPRINKLES 125 MG CPSP 4 capsules by mouth twice daily DEPAKOTE SPRINKLES 125 MG CPSP 4909007 DIVALPROEX SODIUM Inactive DILANTIN 100 MG CAPS Take one by mouth daily DILANTIN 100 MG CAPS 865949 PHENYTOIN SODIUM EXTENDED Inactive INVEGA 6 MG ORAL [id number] 1 TAB ONCE DAILY INVEGA 6 MG ORAL [id number] PALIPERIDONE Inactive TYLENOL 325 MG TAB 1-2 pills by mouth every 6 hours if needed for pain/fever TYLENOL 325 MG TAB 717075 ACETAMINOPHEN Inactive ZOFRAN 4 MG TABS 1 po q6hr PRN Nausea ZOFRAN 4 MG TABS 053275 ONDANSETRON HCL Inactive ADULT ASPIRIN EC LOW STRENGTH 81 MG TBEC Take one by mouth daily ADULT ASPIRIN EC LOW STRENGTH 81 MG TBEC 881826 ASPIRIN Inactive FUROSEMIDE 40 MG TABS Take one by mouth daily FUROSEMIDE 40 MG TABS 197075 FUROSEMIDE Inactive IPRATROPIUM-ALBUTEROL 0.5-2.5 (3) MG/3ML SOLN 1 neb treatment four times daily , for cough IPRATROPIUM-ALBUTEROL 0.5-2.5 (3) MG/3ML SOLN 7778653 IPRATROPIUM-ALBUTEROL Inactive Advance Directives Directive Description Start Date DURABLE POWER OF DISABILITY INSURANCE CLAIM EXAMINER FOR HEALTHCARE PERMISSION TO SHARE ADVANCED DIRECTIVE [...] mg/dL Encounters Code Encounter Date Provider Facility CPT-89934 Level 3 Est. 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 Patient 12:13:33 TEACHER OF THE SIGHT IMPAIRED Erik Baptiste MD [facility] CPT-59533 Level 3 Est. Patient 09:40:44 TEACHER OF THE SIGHT IMPAIRED Jaycee Garcia [facility] CPT-70699 Level 3 Est. Patient 09:36:32 TEACHER OF THE SIGHT IMPAIRED Jaycee Garcia [facility] CPT-01747 Level 4 Est. Patient 16:57:02 TEACHER OF THE SIGHT IMPAIRED Pelon Quach MD [facility] CPT-65086 Level 4 Est. Patient 22:19:34 CDT Pelon Quach MD [facility] CPT-46843 Level 3 Est. Patient 00:34:41 CDT Pelon Quach MD [facility] CPT-46919 Level 4 Est. Patient 11:19:14 CDT Pelon Quach MD [facility] CPT-97488 Level 4 Est. Patient 16:43:30 TEACHER OF THE SIGHT IMPAIRED Pelon Quach MD [facility] CPT-89893 Level 4 Est. Patient 12:42:18 CDT Pelon Qauch MD [facility] CPT-15821 Level 4 Est. Patient 11:52:20 CDT Pelon Quach MD [facility] CPT-22057 Level 4 Est. Patient 13:59:46 CDT Pelon Quach MD [facility] CPT-85629 Level 4 Est. Patient 15:10:48 CDT Pelon Quach MD [facility] CPT-94550 Level 4 Est. Patient 17:13:06 CDT Pelon Quach MD [facility] CPT-68240 Level 4 Est. Patient 18:47:47 CDT Pelon Quach MD [facility] CPT-78384 Level 3 Est. Patient 21:01:27 CDT Pelon Quach MD [facility] CPT-81946 Level 3 Est. 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 Patient 14:28:44 CDT Glenn Thornton MD [facility][1] CPT-31136 Level 3 Est. Patient 16:35:00 CDT Glenn Thornton MD [facility] CPT-99023 Level 4 New Patient 17:06:27 CDT Glenn Thornton MD [facility] Procedures Code Procedure Name Date Entry Date Standard Description CPT-74375 Chest 2V Frontal and Lat - XRAY USE ONLY 11:56:13 TEACHER OF THE SIGHT IMPAIRED CPT-75986 Cystoscopy 14:28:44 CDT CPT-26064 Bladder Scan 14:28:44 CDT CPT-59519 Indwelling Cath Change 17:06:27 CDT CPT-59405 Cystoscopy 17:06:27 CDT
--- OUTSIDE RECORDS SUMMARY | 2018-06-22 11:51 | XMS REPORT | Clinical Summary ---
Author Author Admin, ONESIMO Organization [employer] Address Unknown Phone Unavailable Allergies, Adverse Reactions, [...] unspecified hyperlipidemia INCOMPLETE BLADDER EMPTYING 788.21 Active lGenn Thornton MD Incomplete bladder emptying G E R D 530.81 Active Muna Skeltonde Esophageal reflux Diabetes-Type 2 250.00 Active Pelon Quach MD Diabetes mellitus without mention of complication, type II or unspecified type, not stated as uncontrolled Bipolar disorder 296.80 Active Pelon uQach MD Bipolar disorder, unspecified Blister, foot/toe w/o [...] TABS 1 twice a day SULFAMETHOXAZOLE- TRIMETHOPRIM 63689912273 Active Erik Baptiste MD Active IPRATROPIUM-ALBUTEROL 0.5-2.5 (3) MG/3ML INH SOLN 1 neb treatment QID for cough Dx: J06.9 IPRATROPIUM-ALBUTEROL 78724209724 Active Jaycee Garcia APRN Active IPRATROPIUM-ALBUTEROL 0.5-2.5 (3) MG/3ML SOLN 1 neb treatment four times daily , for cough IPRATROPIUM-ALBUTEROL 50439188474 No Longer Active Jaycee Garcia APRN Active TYLENOL 8 HOUR 650 MG ORAL CR-TABS Take 1 tab po up to 3 times daily as needed ACETAMINOPHEN 67330177189 Active Jaycee Jose DRY PAN FEEDER Active FUROSEMIDE 40 MG TABS Take one by mouth daily FUROSEMIDE 22504325789 No Longer Active Jaycee Garcia VICTORINO Active LANTUS 100 UNIT/ML SC SOLN 20 SUBQ AT HS INSULIN GLARGINE 57373505771 Active Jaycee Jose DRY PAN FEEDER Active LAMICTAL 25 MG ORAL TABS 2 tabs po BID for convulsions LAMOTRIGINE 23620127343 Active Jaycee Garcia VICTORINO Active INVEGA 6 MG ORAL [id number] 1 po daily for Schizophrenia PALIPERIDONE 95037852732 Active Jaycee Garcia VICTORINO Active LASIX 20 MG TAB 1 tablet by mouth every morning for edema FUROSEMIDE 98112765062 Active Jayceehugo Garcia APRN Active BUSPIRONE HCL 10 MG TABS 1 tab by mouth BID BUSPIRONE HCL 27749598485 Active Jaycee Garcia VICTORINO Active NOVOLOG 100 UNIT/ML SC SOLN 10 UNITS BEFORE SUPPER INSULIN ASPART 38829745158 Active Jaycee Garcia VICTORINO Active NOVOLOG 100 UNIT/ML SC SOLN 10 UNITS BID BEFORE BREAKFAST AND LUNCH INSULIN ASPART 20184994119 Active Jaycee Garcia VICTORINO Active LAMICTAL 25 MG TABS 2 tabs by mouth twice a day LAMOTRIGINE 91740446314 Active Pelon Quach MD Active ADULT ASPIRIN EC LOW STRENGTH 81 MG TBEC Take one by mouth daily ASPIRIN 26624674212 No Longer Active Pelon Quach MD Active ASPIRIN 81 MG ORAL TABS 1 po qd ASPIRIN 32053112798 Active Pelon Quach MD Active ZOFRAN 4 MG TABS 1 po q6hr PRN Nausea ONDANSETRON HCL 22999573197 No Longer Active Pelon Quach MD Active TYLENOL 325 MG TAB 1-2 pills by mouth every 6 hours if needed for pain/fever ACETAMINOPHEN 45302233997 No Longer Active Pelon Quach MD Active INVEGA 6 MG ORAL [id number] 1 TAB ONCE DAILY PALIPERIDONE 61124000727 No Longer Active Carly Suggs Active TEGRETOL 200 MG TABS by mouth twice a day CARBAMAZEPINE 65446087557 Active Taty Alvarado MD PhD Active FLOMAX 0.4 MG CAPS 1 Daily TAMSULOSIN HCL 96837344623 Active Marianelachandrika Juarez Active DILANTIN 100 MG CAPS Take one by mouth daily PHENYTOIN SODIUM EXTENDED 90271131918 No Longer Active Marianelachandrika Juarez Active DEPAKOTE SPRINKLES 125 MG CPSP 4 capsules by mouth twice daily DIVALPROEX SODIUM 64008625943 No Longer Active Marianelachandrika Juarez Active LAMICTAL 200 MG ORAL TABS 1 BY MOUTH TWICE A DAY LAMOTRIGINE 14963684687 Active Marianelachandrika Juarez Active LAMICTAL 100 MG TABS by mouth twice a day LAMOTRIGINE 90021230020 No Longer Active Marianelachandrika Juarez Active LAMICTAL 150 MG TABS by mouth twice a day LAMOTRIGINE 99928824170 No Longer Active Marianelachandrika Juarez Active DILANTIN 100 MG CAPS Take three by mouth daily PHENYTOIN SODIUM EXTENDED 46897566692 No Longer Active Marianela Juarez Active SENOKOT 8.6 MG TABS take at bedtime SENNOSIDES 98288723375 Active Glenn Thornton MD Active LIPITOR 20 MG TABS take at bedtime ATORVASTATIN CALCIUM 48306589408 Active Glenn Thornton MD Active LISINOPRIL 2.5 MG TABS Take one by mouth daily LISINOPRIL 19126432159 Active Glenn Thornton MD Active TRENTAL 400 MG CR-TABS by mouth twice a day PENTOXIFYLLINE 32689339404 Active Glenn Thornton MD Active KLOR-CON 10 10 MEQ CR-TABS Take one by mouth daily POTASSIUM CHLORIDE 30425237373 Active Glenn Thornton MD Active DILANTIN 100 MG CAPS Take three by mouth daily DILANTIN 100 MG CAPS 736851 PHENYTOIN SODIUM EXTENDED Inactive LAMICTAL 150 MG TABS by mouth twice a day LAMICTAL 150 MG TABS 19831025 LAMOTRIGINE Inactive LAMICTAL 100 MG TABS by mouth twice a day LAMICTAL 100 MG TABS 19831024 LAMOTRIGINE Inactive DEPAKOTE SPRINKLES 125 MG CPSP 4 capsules by mouth twice daily DEPAKOTE SPRINKLES 125 MG CPSP 7533703 DIVALPROEX SODIUM Inactive DILANTIN 100 MG CAPS Take one by mouth daily DILANTIN 100 MG CAPS 146393 PHENYTOIN SODIUM EXTENDED Inactive INVEGA 6 MG ORAL [id number] 1 TAB ONCE DAILY INVEGA 6 MG ORAL [id number] PALIPERIDONE Inactive TYLENOL 325 MG TAB 1-2 pills by mouth every 6 hours if needed for pain/fever TYLENOL 325 MG TAB 823586 ACETAMINOPHEN Inactive ZOFRAN 4 MG TABS 1 po q6hr PRN Nausea ZOFRAN 4 MG TABS 944116 ONDANSETRON HCL Inactive ADULT ASPIRIN EC LOW STRENGTH 81 MG TBEC Take one by mouth daily ADULT ASPIRIN EC LOW STRENGTH 81 MG TBEC 648955 ASPIRIN Inactive FUROSEMIDE 40 MG TABS Take one by mouth daily FUROSEMIDE 40 MG TABS 281392 FUROSEMIDE Inactive IPRATROPIUM-ALBUTEROL 0.5-2.5 (3) MG/3ML SOLN 1 neb treatment four times daily , for cough IPRATROPIUM-ALBUTEROL 0.5-2.5 (3) MG/3ML SOLN 8096347 IPRATROPIUM-ALBUTEROL Inactive Advance Directives Directive Description Start Date DURABLE POWER OF CYBER SECURITY MANAGER FOR HEALTHCARE PERMISSION TO SHARE ADVANCED DIRECTIVE [...] pressure, diastolic - 8462-4 77 mm[Hg] BP dayl blood pressure, systolic - 8480-6 162 mm[Hg] [...] mg/dL Encounters Code Encounter Date Provider Facility CPT-09955 Level 3 Est. Patient 11:51:35 SAVINGS TELLER Rick Henson DO [facility] CPT-08625 Level 3 Est. Patient 12:13:33 SAVINGS TELLER Erik Baptiste MD [facility] CPT-43582 Level 3 Est. Patient 09:40:44 SAVINGS TELLER Jaycee Garcia [facility] CPT-66958 Level 3 Est. Patient 09:36:32 SAVINGS TELLER Jaycee Garcia [facility] CPT-42170 Level 4 Est. Patient 16:57:02 SAVINGS TELLER Pelon Quach MD [facility] CPT-84538 Level 4 Est. Patient 22:19:34 CDT Pelon Quach MD [facility] CPT-94206 Level 3 Est. Patient 00:34:41 CDT Pelon Quach MD [facility] CPT-52657 Level 4 Est. Patient 11:19:14 CDT Pelon Quach MD [facility] CPT-10862 Level 4 Est. Patient 16:43:30 SAVINGS TELLER Pelon Quach MD [facility] CPT-42176 Level 4 Est. Patient 12:42:18 CDT Pelon Quach MD [facility] CPT-10118 Level 4 Est. Patient 11:52:20 CDT Pelon Quach MD [facility] CPT-60106 Level 4 Est. Patient 13:59:46 CDT Pelon Quach MD [facility] CPT-17664 Level 4 Est. Patient 15:10:48 CDT Pelon Quach MD [facility] CPT-52360 Level 4 Est. Patient 17:13:06 CDT Pelon Quach MD [facility] CPT-96862 Level 4 Est. Patient 18:47:47 CDT Pelon Quach MD [facility] CPT-63712 Level 3 Est. Patient 21:01:27 CDT Pelon Quach MD [facility] CPT-20337 Level 3 Est. Patient 14:07:03 CDT Taty Alvarado MD PhD [facility] CPT-90061 Level 3 New Patient 21:39:52 SAVINGS TELLER Pelon Quach MD [facility] CPT-95697 Level 3 Est. Patient 14:28:44 CDT Glenn Thornton MD [facility] CPT-09817 Level 3 Est. Patient 16:35:00 CDT Glenn Thornton MD [facility] CPT-80703 Level 4 New Patient 17:06:27 CDT Glenn Thornton MD [facility] Call Procedures Code Procedure Name Date Entry Date Standard Description CPT-88820 Chest 2V Frontal and Lat - XRAY USE ONLY 11:56:13 SAVINGS TELLER CPT-47313 Cystoscopy 14:28:44 CDT CPT-47109 Bladder Scan 14:28:44 CDT CPT-55711 Indwelling Cath Change 17:06:27 CDT CPT-63681 Cystoscopy 17:06:27 CDT
--- OUTSIDE RECORDS SUMMARY | 2018-06-22 11:51 | XMS REPORT | Clinical Summary ---
Author Author Admin, NOESIMO Organization [facility] [employer] [place] Address Unknown Phone Unavailable Allergies, Adverse Reactions, [...] HOUR 1 po daily for schizophrenia PALIPERIDONE 86757429740 Active Pelon Quach MD Active LAMICTAL 25 MG TABS 2 tabs by mouth twice a day LAMOTRIGINE 46731478681 No Longer Active Pelon Quach MD Active BACTROBAN 2 % OINTMENT Apply to affected area BID MUPIROCIN 03439722004 No Longer Active Pelon Quach MD Active BANOPHEN 25 MG ORAL TABS 1 po every 6 hours PRN allergic reaction DIPHENHYDRAMINE HCL 69426795235 Active NICOLETTE Hitchcock Active INVEGA 6 MG ORAL [id number] 1 po daily for Schizophrenia PALIPERIDONE 07702549259 No Longer Active Pelon Quach MD Active TYLENOL 8 HOUR 650 MG ORAL CR-TABS Take 1 tab po up to 3 times daily as needed ACETAMINOPHEN 25902911853 No Longer Active Pelon Quach MD Active IPRATROPIUM-ALBUTEROL 0.5-2.5 (3) MG/3ML INH SOLN 1 neb treatment QID for cough Dx: J06.9 IPRATROPIUM-ALBUTEROL 27988623000 No Longer Active Pelon Quach MD Active BACTRIM DS 800-160 MG TAB 1 tab by mouth twice daily TRIMETHOPRIM-SULFAMETHOXAZOLE 93973259058 No Longer Active Pelon Quach MD Active BACTRIM DS 800-160 MG TABS 1 twice a day SULFAMETHOXAZOLE-TRIMETHOPRIM 64146875920 No Longer Active Pelon Quach MD Active IPRATROPIUM-ALBUTEROL 0.5-2.5 (3) MG/3ML SOLN 1 neb treatment four times daily , for cough IPRATROPIUM-ALBUTEROL 48159852875 No Longer Active Jaycee Garcia APRN Active FUROSEMIDE 40 MG TABS Take one by mouth daily FUROSEMIDE 21051017533 No Longer Active Jaycee Garcia APRN Active LANTUS 100 UNIT/ML SC SOLN 20 SUBQ AT HS INSULIN GLARGINE 21194303269 Active Jaycee Garcia APRN Active LAMICTAL 25 MG ORAL TABS 2 tabs po BID for convulsions LAMOTRIGINE 10593322957 Active Jaycee Garcia APRN Active LASIX 20 MG TAB 1 tablet by mouth every morning for edema FUROSEMIDE 64445671146 Active Jaycee Garcia APRN Active BUSPIRONE HCL 10 MG TABS 1 tab by mouth BID BUSPIRONE HCL 56991487686 Active Jaycee Garcia APRN Active NOVOLOG 100 UNIT/ML SC SOLN 10 UNITS BEFORE SUPPER INSULIN ASPART 43325977195 Active Jaycee Garcia APRN Active NOVOLOG 100 UNIT/ML SC SOLN 10 UNITS BID BEFORE BREAKFAST AND LUNCH INSULIN ASPART 88995785569 Active Jaycee Garcia APRN Active ADULT ASPIRIN EC LOW STRENGTH 81 MG TBEC Take one by mouth daily ASPIRIN 28236325482 No Longer Active Pelon Quach MD Active ASPIRIN 81 MG ORAL TABS 1 po qd ASPIRIN 71192560004 Active Pelon Quach MD Active ZOFRAN 4 MG TABS 1 po q6hr PRN Nausea ONDANSETRON HCL 76566272946 No Longer Active Pelon Quach MD Active TYLENOL 325 MG TAB 1-2 pills by mouth every 6 hours if needed for pain/fever ACETAMINOPHEN 10857830559 No Longer Active Pelon Quach MD Active INVEGA 6 MG ORAL [id number] 1 TAB ONCE DAILY PALIPERIDONE 54071408242 No Longer Active Carly Suggs Active TEGRETOL 200 MG TABS by mouth twice a day CARBAMAZEPINE 34045200403 Active Taty Alvarado MD PhD Active FLOMAX 0.4 MG CAPS 1 Daily TAMSULOSIN HCL 77959944735 Active Marianela Juarez Active DILANTIN 100 MG CAPS Take one by mouth daily PHENYTOIN SODIUM EXTENDED 32511574577 No Longer Active Marianela Juarez Active DEPAKOTE SPRINKLES 125 MG CPSP 4 capsules by mouth twice daily DIVALPROEX SODIUM 99593519722 No Longer Active Marianelachandrika Juarez Active LAMICTAL 200 MG ORAL TABS 1 BY MOUTH TWICE A DAY LAMOTRIGINE 61751278497 Active Marianela Juarez Active LAMICTAL 100 MG TABS by mouth twice a day LAMOTRIGINE 30139862166 No Longer Active Marianela Juarez Active LAMICTAL 150 MG TABS by mouth twice a day LAMOTRIGINE 62646435652 No Longer Active Marianela Juarez Active DILANTIN 100 MG CAPS Take three by mouth daily PHENYTOIN SODIUM EXTENDED 40847970834 No Longer Active Marianela Juarez Active SENOKOT 8.6 MG TABS take at bedtime SENNOSIDES 01757982406 Active Glenn Thornton MD Active LIPITOR 20 MG TABS take at bedtime ATORVASTATIN CALCIUM 69481350658 Active Glenn Thornton MD Active LISINOPRIL 2.5 MG TABS Take one by mouth daily LISINOPRIL 30923154319 Active Glenn Thornton MD Active TRENTAL 400 MG CR-TABS by mouth twice a day PENTOXIFYLLINE 01531378461 Active Glenn Thornton MD Active KLOR-CON 10 10 MEQ CR-TABS Take one by mouth daily POTASSIUM CHLORIDE 36848525563 Active Glenn Thornton MD Active DILANTIN 100 MG CAPS Take three by mouth daily DILANTIN 100 MG CAPS 940914 PHENYTOIN SODIUM EXTENDED Inactive LAMICTAL 150 MG TABS by mouth twice a day LAMICTAL 150 MG TABS 635853 LAMOTRIGINE Inactive LAMICTAL 100 MG TABS by mouth twice a day LAMICTAL 100 MG TABS 321626 LAMOTRIGINE Inactive DEPAKOTE SPRINKLES 125 MG CPSP 4 capsules by mouth twice daily DEPAKOTE SPRINKLES 125 MG CPSP 3449404 DIVALPROEX SODIUM Inactive DILANTIN 100 MG CAPS Take one by mouth daily DILANTIN 100 MG CAPS 244834 PHENYTOIN SODIUM EXTENDED Inactive INVEGA 6 MG ORAL [id number] 1 TAB ONCE DAILY INVEGA 6 MG ORAL [id number] PALIPERIDONE Inactive TYLENOL 325 MG TAB 1-2 pills by mouth every 6 hours if needed for pain/fever TYLENOL 325 MG TAB 650500 ACETAMINOPHEN Inactive ZOFRAN 4 MG TABS 1 po q6hr PRN Nausea ZOFRAN 4 MG TABS 721418 ONDANSETRON HCL Inactive ADULT ASPIRIN EC LOW STRENGTH 81 MG TBEC Take one by mouth daily ADULT ASPIRIN EC LOW STRENGTH 81 MG TBEC 098863 ASPIRIN Inactive FUROSEMIDE 40 MG TABS Take one by mouth daily FUROSEMIDE 40 MG TABS 129973 FUROSEMIDE Inactive BACTRIM DS 800-160 MG TABS 1 twice a day BACTRIM DS 800-160 MG TABS 587680 SULFAMETHOXAZOLE-TRIMETHOPRIM Inactive IPRATROPIUM-ALBUTEROL 0.5-2.5 (3) MG/3ML INH SOLN 1 neb treatment QID for cough Dx: J06.9 IPRATROPIUM-ALBUTEROL 0.5-2.5 (3) MG/ 3ML INH SOLN 2603307 IPRATROPIUM-ALBUTEROL Inactive TYLENOL 8 HOUR 650 MG ORAL CR-TABS Take 1 tab po up to 3 times daily as needed TYLENOL 8 HOUR 650 MG ORAL CR-TABS ACETAMINOPHEN Inactive INVEGA 6 MG ORAL [id number] 1 po daily for Schizophrenia INVEGA 6 MG ORAL [id number] PALIPERIDONE Inactive BACTROBAN 2 % OINTMENT Apply to affected area BID BACTROBAN 2 % OINTMENT 764486 MUPIROCIN Inactive LAMICTAL 25 MG TABS 2 tabs by mouth twice a day LAMICTAL 25 MG TABS 254861 LAMOTRIGINE Inactive IPRATROPIUM-ALBUTEROL 0.5-2.5 (3) MG/3ML SOLN 1 neb treatment four times daily , for cough IPRATROPIUM-ALBUTEROL 0.5-2.5 (3) MG/3ML SOLN 1235295 IPRATROPIUM-ALBUTEROL Inactive BACTRIM DS 800-160 MG TAB 1 tab by mouth twice daily BACTRIM DS 800-160 MG TAB 368127 TRIMETHOPRIM-SULFAMETHOXAZOLE Inactive Advance Directives Directive Description Start Date DURABLE POWER OF POLICY ANALYST FOR HEALTHCARE PERMISSION TO SHARE ADVANCED [...] Panel - Chemistry sodium, serum 127 mmol/L 909-684 1417/07/28 potassium, serum 5.3 mmol/L 3.5-5.2 chloride, serum 92 mmol/L 98-107 carbon dioxide, venous blood 32.4 mmol/L 21.0-32.0 blood glucose 182 mg/dL 65-110 calcium, serum 9.4 mg/dL 8.5-10.1 urea nitrogen, blood 14 mg/dL 7-18 creatinine, serum 0.94 mg/dL 0.60-1.30 Lab Report: CBC, Comp. Metabolic Panel - Chemistry sodium, serum 129 mmol/L 675-706 3795/07/12 carbon dioxide, venous blood 27.8 mmol/L 21.0-32.0 [...] mg/dL Encounters Code Encounter Date Provider Facility CPT-69098 Level 4 Est. Patient 14:46:38 CDT Pelon Quach MD [facility] CPT-29272 Level 4 Est. Patient 08:43:11 CDT Pelon Quach MD [facility] CPT-80722 Level 4 Est. Patient 14:27:30 CDT Pelon Quach MD [facility] CPT-65049 Level 3 Est. Patient 10:32:17 CDT Jaycee Garcia [facility] CPT-27415 Level 3 Est. Patient 10:15:07 CDT Pelon Quach MD [facility] CPT-61294 Level 4 Est. Patient 09:30:54 CDT Pelon Quach MD [facility] CPT-30468 Level 4 Est. Patient 14:34:25 CDT Pelon Quach MD [facility] CPT-06574 Level 3 Est. Patient 11:51:35 SALES BROKER Rick Henson DO [facility] CPT-45215 Level 3 Est. Patient 12:13:33 SALES BROKER Erik Baptiste MD [facility] CPT-72431 Level 3 Est. Patient 09:40:44 SALES BROKER Jaycee Garcia [facility] CPT-62533 Level 3 Est. Patient 09:36:32 SALES BROKER Jaycee Garcia [facility] CPT-52557 Level 4 Est. Patient 16:57:02 SALES BROKER Pelon Quach MD [facility] CPT-33686 Level 4 Est. Patient 22:19:34 CDT Pelon Quach MD [facility]-13724 Level 3 Est. Patient 00:34:41 CDT Pelon Quach MD [facility]-38728 Level 4 Est. Patient 11:19:14 CDT Pelon Quach MD [facility]-58948 Level 4 Est. Patient 16:43:30 SALES BROKER Pelon Quach MD [facility]-06150 Level 4 Est. Patient 12:42:18 CDT Pelon Quach MD [facility]-75837 Level 4 Est. Patient 11:52:20 CDT Pelon Quach MD [facility]-17461 Level 4 Est. Patient 13:59:46 CDT Pelon Quach MD [facility]-82675 Level 4 Est. Patient 15:10:48 CDT Pelon Quach MD [facility]-46635 Level 4 Est. Patient 17:13:06 CDT Pelon Quach MD [facility]-47381 Level 4 Est. Patient 18:47:47 CDT Pelon Quach MD [facility]-22589 Level 3 Est. Patient 21:01:27 CDT Pelon Quach MD [facility]-59896 Level 3 Est. Patient 14:07:03 CDT Taty Alvarado MD PhD [facility] CPT-51575 Level 3 New Patient 21:39:52 SALES BROKER Pelon Quach MD [facility]-20284 Level 3 Est. Patient 14:28:44 CDT Glenn Thornton MD [facility]-49659 Level 3 Est. Patient 16:35:00 CDT Glenn Thornton MD [facility] CPT-54597 Level 4 New Patient 17:06:27 CDT Glenn Thornton MD [facility] [place] Procedures Code Procedure Name Date Entry Date Standard Description CPT-G0438 Initial Annual Wellness Exam 09:30:54 CDT CPT-38469 Prevnar 13 Intramuscular Suspension 14:34:25 CDT 12/27 CPT-69090 Chest 2V Frontal and Lat - XRAY USE ONLY 11:56:13 SALES BROKER CPT-76154 Cystoscopy 14:28:44 CDT CPT-25059 Bladder Scan 14:28:44 CDT CPT-44202 Indwelling Cath Change 17:06:27 CDT CPT-68054 Cystoscopy 17:06:27 CDT
--- OUTSIDE RECORDS SUMMARY | 2018-06-22 11:52 | XMS REPORT | Clinical Summary ---
Author Author Admin, ONESIMO Organization [facility] [employer] Address Unknown Phone Unavailable Allergies, Adverse Reactions, [...] 6 hours PRN allergic reaction DIPHENHYDRAMINE HCL 48453963108 Active NICOLETTE Hitchcock Active INVEGA 6 MG ORAL [id number] 1 po daily for Schizophrenia PALIPERIDONE 67681670822 No Longer Active Pelon Quach MD Active TYLENOL 8 HOUR 650 MG ORAL CR-TABS Take 1 tab po up to 3 times daily as needed ACETAMINOPHEN 88351431185 No Longer Active Pelon Quach MD Active IPRATROPIUM-ALBUTEROL 0.5-2.5 (3) MG/3ML INH SOLN 1 neb treatment QID for cough Dx: J06.9 IPRATROPIUM-ALBUTEROL 71945407172 No Longer Active Pelon Quach MD Active BACTRIM DS 800-160 MG TAB 1 tab by mouth twice daily TRIMETHOPRIM-SULFAMETHOXAZOLE 45846741337 No Longer Active Pelon Quach MD Active BACTROBAN 2 % OINTMENT Apply to affected area BID MUPIROCIN 52006382614 Active Jaycee Garcia APRN Active BACTRIM DS 800-160 MG TABS 1 twice a day SULFAMETHOXAZOLE-TRIMETHOPRIM 01837913629 No Longer Active Pelon Quach MD Active IPRATROPIUM-ALBUTEROL 0.5-2.5 (3) MG/3ML SOLN 1 neb treatment four times daily , for cough IPRATROPIUM-ALBUTEROL 72196107372 No Longer Active Jaycee Garcia APRN Active FUROSEMIDE 40 MG TABS Take one by mouth daily FUROSEMIDE 28558170287 No Longer Active Jaycee Garcia APRN Active LANTUS 100 UNIT/ML SC SOLN 20 SUBQ AT HS INSULIN GLARGINE 79197739116 Active Jaycee Garcia APRN Active LAMICTAL 25 MG ORAL TABS 2 tabs po BID for convulsions LAMOTRIGINE 16928481080 Active Jaycee Garcia APRN Active LASIX 20 MG TAB 1 tablet by mouth every morning for edema FUROSEMIDE 64503170926 Active Jaycee Garcia APRN Active BUSPIRONE HCL 10 MG TABS 1 tab by mouth BID BUSPIRONE HCL 87097596903 Active Jaycee Garcia DEPUTY TREASURER Active NOVOLOG 100 UNIT/ML SC SOLN 10 UNITS BEFORE SUPPER INSULIN ASPART 84658485728 Active Jaycee Garcia APRN Active NOVOLOG 100 UNIT/ML SC SOLN 10 UNITS BID BEFORE BREAKFAST AND LUNCH INSULIN ASPART 36785973587 Active Jaycee Garcia APRN Active LAMICTAL 25 MG TABS 2 tabs by mouth twice a day LAMOTRIGINE 24725791433 Active Pelon Quach MD Active ADULT ASPIRIN EC LOW STRENGTH 81 MG TBEC Take one by mouth daily ASPIRIN 69325076253 No Longer Active Pelon Quach MD Active ASPIRIN 81 MG ORAL TABS 1 po qd ASPIRIN 62408615054 Active Pelon Quach MD Active ZOFRAN 4 MG TABS 1 po q6hr PRN Nausea ONDANSETRON HCL 66257119209 No Longer Active Pelon Quach MD Active TYLENOL 325 MG TAB 1-2 pills by mouth every 6 hours if needed for pain/fever ACETAMINOPHEN 20206237732 No Longer Active Pelon Quach MD Active INVEGA 6 MG ORAL [id number]-SHQ 1 TAB ONCE DAILY PALIPERIDONE 94538849861 No Longer Active Carly Suggs Active TEGRETOL 200 MG TABS by mouth twice a day CARBAMAZEPINE 73831049008 Active Taty Alvarado MD PhD Active FLOMAX 0.4 MG CAPS 1 Daily TAMSULOSIN HCL 12416139394 Active Marianela Juarez Active DILANTIN 100 MG CAPS Take one by mouth daily PHENYTOIN SODIUM EXTENDED 98669257652 No Longer Active Marianela Juarez Active DEPAKOTE SPRINKLES 125 MG CPSP 4 capsules by mouth twice daily DIVALPROEX SODIUM 32164113803 No Longer Active Marianela Juarez Active LAMICTAL 200 MG ORAL TABS 1 BY MOUTH TWICE A DAY LAMOTRIGINE 43071992940 Active Marianela Juarez Active LAMICTAL 100 MG TABS by mouth twice a day LAMOTRIGINE 57214905133 No Longer Active Marianela Juarez Active LAMICTAL 150 MG TABS by mouth twice a day LAMOTRIGINE 24249937621 No Longer Active Marianela Juarez Active DILANTIN 100 MG CAPS Take three by mouth daily PHENYTOIN SODIUM EXTENDED 10517118867 No Longer Active Marianela Shankarronny Active SENOKOT 8.6 MG TABS take at bedtime SENNOSIDES 54443839151 Active Glenn Thornton MD Active LIPITOR 20 MG TABS take at bedtime ATORVASTATIN CALCIUM 67534262267 Active Glenn Thornton MD Active LISINOPRIL 2.5 MG TABS Take one by mouth daily LISINOPRIL 16293415035 Active Glenn Thornton MD Active TRENTAL 400 MG CR-TABS by mouth twice a day PENTOXIFYLLINE 27649525046 Active Glenn Thornton MD Active KLOR-CON 10 10 MEQ CR-TABS Take one by mouth daily POTASSIUM CHLORIDE 05239809789 Active Glenn Thornton MD Active DILANTIN 100 MG CAPS Take three by mouth daily DILANTIN 100 MG CAPS 690261 PHENYTOIN SODIUM EXTENDED Inactive LAMICTAL 150 MG TABS by mouth twice a day LAMICTAL 150 MG TABS 980565 LAMOTRIGINE Inactive LAMICTAL 100 MG TABS by mouth twice a day LAMICTAL 100 MG TABS 19831024 LAMOTRIGINE Inactive DEPAKOTE SPRINKLES 125 MG CPSP 4 capsules by mouth twice daily DEPAKOTE SPRINKLES 125 MG CPSP 5019148 DIVALPROEX SODIUM Inactive DILANTIN 100 MG CAPS Take one by mouth daily DILANTIN 100 MG CAPS 465220 PHENYTOIN SODIUM EXTENDED Inactive INVEGA 6 MG ORAL [id number] 1 TAB ONCE DAILY INVEGA 6 MG ORAL [id number] PALIPERIDONE Inactive TYLENOL 325 MG TAB 1-2 pills by mouth every 6 hours if needed for pain/fever TYLENOL 325 MG TAB 713596 ACETAMINOPHEN Inactive ZOFRAN 4 MG TABS 1 po q6hr PRN Nausea ZOFRAN 4 MG TABS 226804 ONDANSETRON HCL Inactive ADULT ASPIRIN EC LOW STRENGTH 81 MG TBEC Take one by mouth daily ADULT ASPIRIN EC LOW STRENGTH 81 MG TBEC 675986 ASPIRIN Inactive FUROSEMIDE 40 MG TABS Take one by mouth daily FUROSEMIDE 40 MG TABS 001646 FUROSEMIDE Inactive BACTRIM DS 800-160 MG TABS 1 twice a day BACTRIM DS 800-160 MG TABS 810031 SULFAMETHOXAZOLE-TRIMETHOPRIM Inactive IPRATROPIUM-ALBUTEROL 0.5-2.5 (3) MG/3ML INH SOLN 1 neb treatment QID for cough Dx: J06.9 IPRATROPIUM-ALBUTEROL 0.5-2.5 (3) MG/ 3ML INH SOLN 7280051 IPRATROPIUM-ALBUTEROL Inactive TYLENOL 8 HOUR 650 MG ORAL CR-TABS Take 1 tab po up to 3 times daily as needed TYLENOL 8 HOUR 650 MG ORAL CR-TABS ACETAMINOPHEN Inactive INVEGA 6 MG ORAL [id number] 1 po daily for Schizophrenia INVEGA 6 MG ORAL [id number] PALIPERIDONE Inactive IPRATROPIUM-ALBUTEROL 0.5-2.5 (3) MG/3ML SOLN 1 neb treatment four times daily , for cough IPRATROPIUM-ALBUTEROL 0.5-2.5 (3) MG/3ML SOLN 9436430 IPRATROPIUM-ALBUTEROL Inactive BACTRIM DS 800-160 MG TAB 1 tab by mouth twice daily BACTRIM DS 800-160 MG TAB 19821119 TRIMETHOPRIM-SULFAMETHOXAZOLE Inactive Advance Directives Directive Description Start Date DURABLE POWER OF UPHOLSTERER OUTSIDE FOR HEALTHCARE PERMISSION TO SHARE ADVANCED DIRECTIVE [...] Panel - Chemistry sodium, serum 129 mmol/L 994-855 1994/07/12 carbon dioxide, venous blood 27.8 mmol/L 21.0-32.0 [...] mg/dL Encounters Code Encounter Date Provider Facility CPT-48766 Level 4 Est. Patient 14:27:30 CDT Pelon Quach MD [facility] CPT-58388 Level 3 Est. Patient 10:32:17 CDT Jaycee Garcia APRN [facility] CPT-50891 Level 3 Est. Patient 10:15:07 CDT Pelon Quach MD [facility] CPT-53592 Level 4 Est. Patient 09:30:54 CDT Pelon Quach MD [facility] CPT-99976 Level 4 Est. Patient 14:34:25 CDT Pelon Quach MD [facility] CPT-47009 Level 3 Est. Patient 11:51:35 COMMERCIAL ARTIST LETTERING Rick Henson DO [facility] CPT-90068 Level 3 Est. Patient 12:13:33 COMMERCIAL ARTIST LETTERING Erik Baptiste MD [facility]-08930 Level 3 Est. Patient 09:40:44 COMMERCIAL ARTIST LETTERING Jaycee Garcia [facility]-46135 Level 3 Est. Patient 09:36:32 COMMERCIAL ARTIST LETTERING Jaycee Garcia [facility]-87827 Level 4 Est. Patient 16:57:02 COMMERCIAL ARTIST LETTERING Pelon Quach MD [facility]-23281 Level 4 Est. Patient 22:19:34 CDT Pelon Quach MD [facility]-97286 Level 3 Est. Patient 00:34:41 CDT Pelon Quach MD [facility]-01959 Level 4 Est. Patient 11:19:14 CDT Pelon Quach MD [facility]-15912 Level 4 Est. Patient 16:43:30 COMMERCIAL ARTIST LETTERING Pelon Quach MD [facility]-24722 Level 4 Est. Patient 12:42:18 CDT Pelon Quach MD [facility]-44820 Level 4 Est. Patient 11:52:20 CDT Pelon Quach MD [facility]-07054 Level 4 Est. Patient 13:59:46 CDT Pelon Quach MD [facility]-43341 Level 4 Est. Patient 15:10:48 CDT Pelon Quach MD [facility]-09911 Level 4 Est. Patient 17:13:06 CDT Pelon Quach MD [facility]-03440 Level 4 Est. Patient 18:47:47 CDT Pelon Quach MD [facility]-29568 Level 3 Est. Patient 21:01:27 CDT Pelon Quach MD [facility] CPT-31749 Level 3 Est. Patient 14:07:03 CDT Taty Alvarado MD PhD [facility] CPT-54922 Level 3 New Patient 21:39:52 COMMERCIAL ARTIST LETTERING Pelon Quach MD [facility] CPT-95315 Level 3 Est. Patient 14:28:44 CDT Glenn Thornton MD [facility] CPT-96176 Level 3 Est. Patient 16:35:00 CDT Glenn Thornton MD [facility] CPT-62417 Level 4 New Patient 17:06:27 CDT Glenn Thornton MD [facility] Procedures Code Procedure Name Date Entry Date Standard Description CPT-G0438 Initial Annual Wellness Exam 09:30:54 CDT CPT-85940 Prevnar 13 Intramuscular Suspension 14:34:25 CDT 12/27 CPT-30299 Chest 2V Frontal and Lat - XRAY USE ONLY 11:56:13 COMMERCIAL ARTIST LETTERING CPT-10918 Cystoscopy 14:28:44 CDT CPT-79036 Bladder Scan 14:28:44 CDT CPT-05643 Indwelling Cath Change 17:06:27 CDT CPT-40367 Cystoscopy 17:06:27 CDT
--- OUTSIDE RECORDS SUMMARY | 2018-06-22 11:52 | XMS REPORT | Clinical Summary ---
Author Author Admin, ONESIMO Organization [facility] [employer] Address Unknown Phone Unavailable Allergies, Adverse Reactions, Alerts Allergy Name Reaction Description Start Date Severity Status Provider No Known Allergies Caroline Tran LPN Conditions or Problems Problem Name Problem Code [...] emptying G E R D 530.81 Active Munathea Gallardo Esophageal reflux Diabetes-Type 2 250.00 Active [...] specified as recurrent) URI - acute 465.9 Active Jaycee Garcia APRN Acute upper respiratory infections of unspecified site URI - acute 465.9 Active Jaycee Garcia APRN Acute upper respiratory infections of unspecified site Medication List Medication Instructions Start Date Stop Date Generic Name NDC Status Provider Patient Instruction IPRATROPIUM-ALBUTEROL 0.5-2.5 (3) MG/3ML SOLN 1 neb treatment four times daily , for cough IPRATROPIUM-ALBUTEROL 23903065151 No Longer Active Jaycee Garcia APRN Active TYLENOL 8 HOUR 650 MG ORAL CR-TABS Take 1 tab po up to 3 times daily as needed ACETAMINOPHEN 15866024574 Active Jaycee Garcia APRN Active FUROSEMIDE 40 MG TABS Take one by mouth daily FUROSEMIDE 60415392647 No Longer Active Jaycee Garcia APRN Active LANTUS 100 UNIT/ML SC SOLN 20 SUBQ AT HS INSULIN GLARGINE 33394471741 Active Jaycee Garcia APRN Active LAMICTAL 25 MG ORAL TABS 2 tabs po BID for convulsions LAMOTRIGINE 96654781207 Active Jaycee Garcia APRN Active INVEGA 6 MG ORAL [id number] 1 po daily for Schizophrenia PALIPERIDONE 32231470650 Active Jaycee Garcia APRN Active LASIX 20 MG TAB 1 tablet by mouth every morning for edema FUROSEMIDE 33997058006 Active Jaycee Jose EXECUTIVE MEETING MANAGER Active BUSPIRONE HCL 10 MG TABS 1 tab by mouth BID BUSPIRONE HCL 29080596419 Active Jaycee Garcia APRN Active NOVOLOG 100 UNIT/ML SC SOLN 10 UNITS BEFORE SUPPER INSULIN ASPART 63059432354 Active Jaycee Garcia EXECUTIVE MEETING MANAGER Active NOVOLOG 100 UNIT/ML SC SOLN 10 UNITS BID BEFORE BREAKFAST AND LUNCH INSULIN ASPART 82609619636 Active Jaycee Garcia APRN Active LAMICTAL 25 MG TABS 2 tabs by mouth twice a day LAMOTRIGINE 44870352547 Active Pelon Quach MD Active ADULT ASPIRIN EC LOW STRENGTH 81 MG TBEC Take one by mouth daily ASPIRIN 14688804548 No Longer Active Pelon Quach MD Active ASPIRIN 81 MG ORAL TABS 1 po qd ASPIRIN 38458540725 Active Pelon Quach MD Active ZOFRAN 4 MG TABS 1 po q6hr PRN Nausea ONDANSETRON HCL 93516928652 No Longer Active Pelon Quach MD Active TYLENOL 325 MG TAB 1-2 pills by mouth every 6 hours if needed for pain/fever ACETAMINOPHEN 32175514808 No Longer Active Pelon Quach MD Active INVEGA 6 MG ORAL [id number] 1 TAB ONCE DAILY PALIPERIDONE 92750817855 No Longer Active Carly Suggs Active TEGRETOL 200 MG TABS by mouth twice a day CARBAMAZEPINE 97694657604 Active Taty Alvarado MD PhD Active FLOMAX 0.4 MG CAPS 1 Daily TAMSULOSIN HCL 98626718006 Active Marianela Juarez Active DILANTIN 100 MG CAPS Take one by mouth daily PHENYTOIN SODIUM EXTENDED 95812577688 No Longer Active Marianela Juarez Active DEPAKOTE SPRINKLES 125 MG CPSP 4 capsules by mouth twice daily DIVALPROEX SODIUM 47502818459 No Longer Active Marianelachandrika Juarez Active LAMICTAL 200 MG ORAL TABS 1 BY MOUTH TWICE A DAY LAMOTRIGINE 06601006811 Active Marianela Juarez Active LAMICTAL 100 MG TABS by mouth twice a day LAMOTRIGINE 76896140643 No Longer Active Marianela Juarez Active LAMICTAL 150 MG TABS by mouth twice a day LAMOTRIGINE 41444882414 No Longer Active Marianela Juarez Active DILANTIN 100 MG CAPS Take three by mouth daily PHENYTOIN SODIUM EXTENDED 69491082001 No Longer Active Marianela Juarez Active SENOKOT 8.6 MG TABS take at bedtime SENNOSIDES 14860951741 Active Glenn Thornton MD Active LIPITOR 20 MG TABS take at bedtime ATORVASTATIN CALCIUM 10200277997 Active Glenn Thornton MD Active LISINOPRIL 2.5 MG TABS Take one by mouth daily LISINOPRIL 36363510562 Active Glenn Thornton MD Active TRENTAL 400 MG CR-TABS by mouth twice a day PENTOXIFYLLINE 71951922634 Active Glenn Thornton MD Active KLOR-CON 10 10 MEQ CR-TABS Take one by mouth daily POTASSIUM CHLORIDE 74889447178 Active Glenn Thornton MD Active DILANTIN 100 MG CAPS Take three by mouth daily DILANTIN 100 MG CAPS 490061 PHENYTOIN SODIUM EXTENDED Inactive LAMICTAL 150 MG TABS by mouth twice a day LAMICTAL 150 MG TABS 105550 LAMOTRIGINE Inactive LAMICTAL 100 MG TABS by mouth twice a day LAMICTAL 100 MG TABS 19831024 LAMOTRIGINE Inactive DEPAKOTE SPRINKLES 125 MG CPSP 4 capsules by mouth twice daily DEPAKOTE SPRINKLES 125 MG CPSP 9689138 DIVALPROEX SODIUM Inactive DILANTIN 100 MG CAPS Take one by mouth daily DILANTIN 100 MG CAPS 187673 PHENYTOIN SODIUM EXTENDED Inactive INVEGA 6 MG ORAL [id number] 1 TAB ONCE DAILY INVEGA 6 MG ORAL [id number] PALIPERIDONE Inactive TYLENOL 325 MG TAB 1-2 pills by mouth every 6 hours if needed for pain/fever TYLENOL 325 MG TAB 163620 ACETAMINOPHEN Inactive ZOFRAN 4 MG TABS 1 po q6hr PRN Nausea ZOFRAN 4 MG TABS 333392 ONDANSETRON HCL Inactive ADULT ASPIRIN EC LOW STRENGTH 81 MG TBEC Take one by mouth daily ADULT ASPIRIN EC LOW STRENGTH 81 MG TBEC 100582 ASPIRIN Inactive FUROSEMIDE 40 MG TABS Take one by mouth daily FUROSEMIDE 40 MG TABS 082577 FUROSEMIDE Inactive IPRATROPIUM-ALBUTEROL 0.5-2.5 (3) MG/3ML SOLN 1 neb treatment four times daily , for cough IPRATROPIUM-ALBUTEROL 0.5-2.5 (3) MG/3ML SOLN 2305816 IPRATROPIUM-ALBUTEROL Inactive Advance Directives Directive Description Start Date DURABLE POWER OF CERTIFIED MEDICAL CODER FOR HEALTHCARE PERMISSION TO SHARE ADVANCED DIRECTIVE Vital Signs Date Name Value Unit Range Description blood pressure, diastolic - 8462-4 64 mm[Hg] [...] mg/dL Encounters Code Encounter Date Provider Facility CPT-86096 Level 3 Est. Patient 09:40:44 VALIDATION LEADER Jaycee Garcia [facility] CPT-72303 Level 3 Est. Patient 09:36:32 VALIDATION LEADER Jaycee Garcia [facility] CPT-45684 Level 4 Est. Patient 16:57:02 VALIDATION LEADER Pelon Quach MD [facility] CPT-69566 Level 4 Est. Patient 22:19:34 CDT Pelon Quach MD [facility] CPT-41391 Level 3 Est. Patient 00:34:41 CDT Pelon Quach MD [facility] CPT-60906 Level 4 Est. Patient 11:19:14 CDT Pelon Quach MD [facility] CPT-26267 Level 4 Est. Patient 16:43:30 VALIDATION LEADER Pelon Quach MD [facility] CPT-18070 Level 4 Est. Patient 12:42:18 CDT Pelon Quach MD [facility] CPT-50341 Level 4 Est. Patient 11:52:20 CDT Pelon Quach MD [facility] CPT-55403 Level 4 Est. Patient 13:59:46 CDT Pelon Quach MD [facility] CPT-09058 Level 4 Est. Patient 15:10:48 CDT Pelon Quach MD [facility] CPT-31343 Level 4 Est. Patient 17:13:06 CDT Pelon Quach MD [facility] CPT-65504 Level 4 Est. Patient 18:47:47 CDT Pelon Quach MD [facility] CPT-98007 Level 3 Est. Patient 21:01:27 CDT Pelon Quach MD [facility] CPT-04741 Level 3 Est. Patient 14:07:03 CDT Taty Alvarado MD PhD [facility] CPT-44481 Level 3 New Patient 21:39:52 VALIDATION LEADER Pelon Quach MD [facility] CPT-01175 Level 3 Est. Patient 14:28:44 CDT Glenn Thornton MD [facility] CPT-41371 Level 3 Est. Patient 16:35:00 CDT Glenn Thornton MD [facility] CPT-94902 Level 4 New Patient 17:06:27 CDT [facility] Procedures Code Procedure Name Date Entry Date Standard Description CPT-49888 Cystoscopy 14:28:44 CDT CPT-39026 Bladder Scan 14:28:44 CDT CPT-19787 Indwelling Cath Change 17:06:27 CDT CPT-18911 Cystoscopy 17:06:27 CDT
--- OUTSIDE RECORDS SUMMARY | 2018-06-22 11:53 | XMS REPORT | Clinical Summary ---
Author Author Admin, SEWORKS Organization [facility] [employer] Address Unknown Phone Unavailable Allergies, Adverse Reactions, [...] tab po QID x 7 days ACETAMINOPHEN 52010489499 Active Fanta Rodas MA Active INVEGA [id number]-SRL 3MG BY MOUTH ONE TIME DAILY PALIPERIDONE ZB39A-HWH 20430954613 Active Pelon Quach MD Active ASPIRIN 81 MG ORAL TABS 1 po qd ASPIRIN 70903883907 Active Pelon Quach MD Active ZOFRAN 4 MG TABS 1 po q6hr PRN Nausea ONDANSETRON HCL 24034165722 No Longer Active Pelon Quach MD Active TYLENOL 325 MG TAB 1-2 pills by mouth every 6 hours if needed for pain/fever ACETAMINOPHEN 87830539227 No Longer Active Pelon Quach MD Active INVEGA 6 MG ORAL LL65O-MZM 1 TAB ONCE DAILY PALIPERIDONE 10674984160 No Longer Active Carly Suggs Active LANTUS 100 UNIT/ML SC SOLN 18 SUBQ AT HS INSULIN GLARGINE 74996399493 Active Pelon Quach MD Active TEGRETOL 200 MG TABS by mouth twice a day CARBAMAZEPINE 23522184672 Active Taty Alvarado MD PhD Active NOVOLOG 100 UNIT/ML SC SOLN 7 UNITS BEFORE SUPPER INSULIN ASPART 59964791926 Active Marianela Raronny Active NOVOLOG 100 UNIT/ML SC SOLN 7 UNITS BID BEFORE BREAKFAST AND LUNCH INSULIN ASPART 87636479341 Active Marianela Juarez Active FLOMAX 0.4 MG CAPS 1 Daily TAMSULOSIN HCL 33146323724 Active Marianelachandrika Juarez Active DILANTIN 100 MG CAPS Take one by mouth daily PHENYTOIN SODIUM EXTENDED 15668461957 No Longer Active Marianela Juarez Active DEPAKOTE SPRINKLES 125 MG CPSP 4 capsules by mouth twice daily DIVALPROEX SODIUM 21485555092 No Longer Active Marianela Juarez Active LAMICTAL 200 MG ORAL TABS 1 BY MOUTH TWICE A DAY LAMOTRIGINE 06276149436 Active Marianelachandrika Juarez Active LAMICTAL 100 MG TABS by mouth twice a day LAMOTRIGINE 10330739412 No Longer Active Marianelachandrika Juarez Active LAMICTAL 150 MG TABS by mouth twice a day LAMOTRIGINE 84635972659 No Longer Active Marianelachandrika Juarez Active DILANTIN 100 MG CAPS Take three by mouth daily PHENYTOIN SODIUM EXTENDED 00552161754 No Longer Active Marianela Juarez Active SENOKOT 8.6 MG TABS take at bedtime SENNOSIDES 23940419493 Active Glenn Thornton MD Active LIPITOR 20 MG TABS take at bedtime ATORVASTATIN CALCIUM 88431079154 Active Glenn Thornton MD Active LISINOPRIL 2.5 MG TABS Take one by mouth daily LISINOPRIL 30702593033 Active Glenn Thornton MD Active TRENTAL 400 MG CR-TABS by mouth twice a day PENTOXIFYLLINE 32343213699 Active Glenn Thornton MD Active LAMICTAL 25 MG TABS by mouth twice a day LAMOTRIGINE 92846529381 Active Glenn Thornton MD Active BUSPIRONE HCL 10 MG TABS by mouth twice a day BUSPIRONE HCL 53832666373 Active Glenn Thornton MD Active FUROSEMIDE 40 MG TABS Take one by mouth daily FUROSEMIDE 06097716658 Active Glenn Thornton MD Active KLOR-CON 10 10 MEQ CR-TABS Take one by mouth daily POTASSIUM CHLORIDE 29981060543 Active Glenn Thornton MD Active ADULT ASPIRIN EC LOW STRENGTH 81 MG TBEC Take one by mouth daily ASPIRIN 67878881464 Active Glenn Thornton MD Active DILANTIN 100 MG CAPS Take three by mouth daily DILANTIN 100 MG CAPS 002505 PHENYTOIN SODIUM EXTENDED Inactive LAMICTAL 150 MG TABS by mouth twice a day LAMICTAL 150 MG TABS 848241 LAMOTRIGINE Inactive LAMICTAL 100 MG TABS by mouth twice a day LAMICTAL 100 MG TABS 495721 LAMOTRIGINE Inactive DEPAKOTE SPRINKLES 125 MG CPSP 4 capsules by mouth twice daily DEPAKOTE SPRINKLES 125 MG CPSP 1180794 DIVALPROEX SODIUM Inactive DILANTIN 100 MG CAPS Take one by mouth daily DILANTIN 100 MG CAPS 491838 PHENYTOIN SODIUM EXTENDED Inactive INVEGA 6 MG ORAL GN71P-FHT 1 TAB ONCE DAILY INVEGA 6 MG ORAL QL62N-FXQ PALIPERIDONE Inactive TYLENOL 325 MG TAB 1-2 pills by mouth every 6 hours if needed for pain/fever TYLENOL 325 MG TAB 767222 ACETAMINOPHEN Inactive ZOFRAN 4 MG TABS 1 po q6hr PRN Nausea ZOFRAN 4 MG TABS 201625 ONDANSETRON HCL Inactive Advance Directives Directive Description Start Date DURABLE POWER OF LIVING MANAGER FOR HEALTHCARE PERMISSION TO SHARE Vital Signs [...] mg/dL Lab Report: CBC, Comp. Metabolic Panel, [facility] - Chemistry sodium, serum 132 mmol/L 121-430 7044/10/16 carbon dioxide, venous blood 29.0 mmol/L 21.0-32.0 [...] 4.3-6.0 Lab Report: CBC, Comp. Metabolic Panel, [facility] - Hematology leukocyte count, blood 5.8 [...] mg/dL Encounters Code Encounter Date Provider Facility CPT-57333 Level 4 Est. Patient 11:19:14 CDT Pelon Quach MD [facility] CPT-17130 Level 4 Est. Patient 16:43:30 SHADE MATCHER Pelon Quach MD [facility] CPT-43292 Level 4 Est. Patient 12:42:18 CDT Pelon Quach MD [facility] CPT-14875 Level 4 Est. Patient 11:52:20 CDT Pelon Quach MD [facility] CPT-11304 Level 4 Est. Patient 13:59:46 CDT Pelon Quach MD [facility] CPT-83580 Level 4 Est. Patient 15:10:48 CDT Pelon Quach MD [facility] CPT-01876 Level 4 Est. Patient 17:13:06 CDT Pelon Quach MD [facility] CPT-60169 Level 4 Est. Patient 18:47:47 CDT Pelon Quach MD [facility] CPT-59139 Level 3 Est. Patient 21:01:27 CDT Pelon Quach MD [facility] CPT-08807 Level 3 Est. Patient 14:07:03 CDT Taty Alvarado MD PhD [facility] CPT-69053 Level 3 New Patient 21:39:52 SHADE MATCHER Pelon Quach MD [facility] CPT-62066 Level 3 Est. Patient 14:28:44 CDT Glenn Thornton MD [facility] CPT-81620 Level 3 Est. Patient 16:35:00 CDT [facility] C[facility]-00250 Level 4 New Patient 17:06:27 CDT Glenn Thornton MD [facility] Procedures Code Procedure Name Date Entry Date Standard Description CPT-93490 Cystoscopy 14:28:44 CDT CPT-97106 Bladder Scan 14:28:44 CDT CPT-32058 Indwelling Cath Change 17:06:27 CDT CPT-62753 Cystoscopy 17:06:27 CDT
--- OUTSIDE RECORDS SUMMARY | 2018-06-22 11:53 | XMS REPORT | Clinical Summary ---
Author Author Admin, ONESIMO Organization [facility] [email or web address] [place] Address Unknown Phone Unavailable Allergies, Adverse Reactions, [...] and insulin admin Dx: E11.9 ALCOHOL SWABS [id number] Active Jaycee Garcia APRN Active HUMALOG KWIKPEN 100 UNIT/ML SUBCUTANEOUS SOLUTION PEN-INJECTOR inject 10 units subcutaneously before meals also sliding scale INSULIN LISPRO 21026957626 Active NICOLETTE Hitchcock Active NOVOLOG 100 UNIT/ML SUBCUTANEOUS SOLUTION 10 UNITS BID BEFORE BREAKFAST AND LUNCH INSULIN ASPART 37260247185 No Longer Active NICOLETTE Hitchcock Active NOVOLOG 100 UNIT/ML SUBCUTANEOUS SOLUTION 10 UNITS BEFORE SUPPER INSULIN ASPART 74760814826 No Longer Active NICOLETTE Hitchcock Active INVEGA 6 MG ORAL TABLET EXTENDED RELEASE 24 HOUR 1 po daily for schizophrenia PALIPERIDONE 47342591399 Active Pelon Quach MD Active LAMICTAL 25 MG ORAL TABLET 2 tabs by mouth twice a day LAMOTRIGINE 16723210527 No Longer Active Pelon Quach MD Active BACTROBAN 2 % EXTERNAL OINTMENT Apply to affected area BID 06/28 MUPIROCIN 86918095372 No Longer Active Pelon Quach MD Active BANOPHEN 25 MG ORAL TABLET 1 po every 6 hours PRN allergic reaction DIPHENHYDRAMINE HCL 65591185389 Active NICOLETTE Hitchcock Active INVEGA 6 MG ORAL TABLET EXTENDED RELEASE 24 HOUR 1 po daily for Schizophrenia PALIPERIDONE 57311923406 No Longer Active Pelon Quach MD Active TYLENOL 8 HOUR 650 MG ORAL TABLET EXTENDED RELEASE Take 1 tab po up to 3 times daily as needed ACETAMINOPHEN 32062164383 No Longer Active Pelon Quach MD Active IPRATROPIUM-ALBUTEROL 0.5-2.5 (3) MG/3ML INHALATION SOLUTION 1 neb treatment QID for cough Dx: J06.9 IPRATROPIUM-ALBUTEROL 53850551690 No Longer Active Pelon Quach MD Active BACTRIM DS 800-160 MG ORAL TABLET 1 tab by mouth twice daily 2016 TRIMETHOPRIM-SULFAMETHOXAZOLE 15693835214 No Longer Active Pelon Quach MD Active BACTRIM DS 800-160 MG ORAL TABLET 1 twice a day SULFAMETHOXAZOLE-TRIMETHOPRIM 45588689972 No Longer Active Pelon Quach MD Active IPRATROPIUM-ALBUTEROL 0.5-2.5 (3) MG/3ML INHALATION SOLUTION 1 neb treatment four times daily, for cough IPRATROPIUM-ALBUTEROL 11770841675 No Longer Active Jaycee Garcia APRN Active FUROSEMIDE 40 MG ORAL TABLET Take one by mouth daily FUROSEMIDE 72778153138 No Longer Active Jaycee Garcia APRN Active LANTUS 100 UNIT/ML SUBCUTANEOUS SOLUTION 20 SUBQ AT HS INSULIN GLARGINE 31942012605 Active Pelon Quach MD Active LAMICTAL 25 MG ORAL TABLET 2 tabs po BID for convulsions LAMOTRIGINE 10675299014 Active Jaycee Garcia APRN Active LASIX 20 MG ORAL TABLET 1 tablet by mouth every morning for edema FUROSEMIDE 86385442209 Active Jaycee Garcia APRN Active BUSPIRONE HCL 10 MG ORAL TABLET 1 tab by mouth BID BUSPIRONE HCL 13171216922 Active Jaycee Garcia APRN Active ADULT ASPIRIN EC LOW STRENGTH 81 MG ORAL TABLET DELAYED RELEASE Take one by mouth daily ASPIRIN 63699226302 No Longer Active Pelon Quach MD Active ASPIRIN 81 MG ORAL TABLET 1 po qd ASPIRIN 65241976629 Active Pelon Quach MD Active ZOFRAN 4 MG ORAL TABLET 1 po q6hr PRN Nausea ONDANSETRON HCL 75545204876 No Longer Active Pelon Quach MD Active TYLENOL 325 MG ORAL TABLET 1-2 pills by mouth every 6 hours if needed for pain /fever ACETAMINOPHEN 41882452277 No Longer Active Pelon Quach MD Active INVEGA 6 MG ORAL TABLET EXTENDED RELEASE 24 HOUR 1 TAB ONCE DAILY PALIPERIDONE 57811556593 No Longer Active Carly Suggs Active TEGRETOL 200 MG ORAL TABLET by mouth twice a day CARBAMAZEPINE 18566031774 Active Taty Alvarado MD PhD Active FLOMAX 0.4 MG ORAL CAPSULE 1 Daily TAMSULOSIN HCL 30197646626 Active Marianela Juarez Active DILANTIN 100 MG ORAL CAPSULE Take one by mouth daily PHENYTOIN SODIUM EXTENDED 80761075285 No Longer Active Marianela Juarez Active DEPAKOTE SPRINKLES 125 MG ORAL CAPSULE DELAYED RELEASE SPRINKLE 4 capsules by mouth twice daily DIVALPROEX SODIUM 26656473263 No Longer Active Marianela Juarez Active LAMICTAL 200 MG ORAL TABLET 1 BY MOUTH TWICE A DAY LAMOTRIGINE 28405969169 Active Marianelachandrika Juarez Active LAMICTAL 100 MG ORAL TABLET by mouth twice a day LAMOTRIGINE 53546583475 No Longer Active Marianelachandrika Juarez Active LAMICTAL 150 MG ORAL TABLET by mouth twice a day LAMOTRIGINE 62653421726 No Longer Active Marianela Juarez Active DILANTIN 100 MG ORAL CAPSULE Take three by mouth daily PHENYTOIN SODIUM EXTENDED 78698384313 No Longer Active Marianela Juarez Active SENOKOT 8.6 MG ORAL TABLET take at bedtime SENNOSIDES 95625733874 Active Pelon Quach MD Active LIPITOR 20 MG ORAL TABLET take at bedtime ATORVASTATIN CALCIUM 50462759277 Active Glenn Thornton MD Active LISINOPRIL 2.5 MG ORAL TABLET Take one by mouth daily LISINOPRIL 51882892384 Active Glenn Thornton MD Active TRENTAL 400 MG CR-TABS by mouth twice a day PENTOXIFYLLINE 07456367920 Active Glenn Thornton MD Active KLOR-CON 10 10 MEQ ORAL TABLET EXTENDED RELEASE Take one by mouth daily POTASSIUM CHLORIDE 80151674324 Active J Ian Thornton MD Active DILANTIN 100 MG ORAL CAPSULE Take three by mouth daily DILANTIN 100 MG ORAL CAPSULE 696014 PHENYTOIN SODIUM EXTENDED Inactive LAMICTAL 150 MG ORAL TABLET by mouth twice a day LAMICTAL 150 MG ORAL TABLET 428187 LAMOTRIGINE Inactive LAMICTAL 100 MG ORAL TABLET by mouth twice a day LAMICTAL 100 MG ORAL TABLET 19831024 LAMOTRIGINE Inactive DEPAKOTE SPRINKLES 125 MG ORAL CAPSULE DELAYED RELEASE SPRINKLE 4 capsules by mouth twice daily DEPAKOTE SPRINKLES 125 MG ORAL CAPSULE DELAYED RELEASE SPRINKLE 3092533 DIVALPROEX SODIUM Inactive DILANTIN 100 MG ORAL CAPSULE Take one by mouth daily DILANTIN 100 MG ORAL CAPSULE 204468 PHENYTOIN SODIUM EXTENDED Inactive INVEGA 6 MG ORAL TABLET EXTENDED RELEASE 24 HOUR 1 TAB ONCE DAILY INVEGA 6 MG ORAL TABLET EXTENDED RELEASE 24 HOUR PALIPERIDONE Inactive TYLENOL 325 MG ORAL TABLET 1-2 pills by mouth every 6 hours if needed for pain /fever TYLENOL 325 MG ORAL TABLET 905204 ACETAMINOPHEN Inactive ZOFRAN 4 MG ORAL TABLET 1 po q6hr PRN Nausea ZOFRAN 4 MG ORAL TABLET 278014 ONDANSETRON HCL Inactive ADULT ASPIRIN EC LOW STRENGTH 81 MG ORAL TABLET DELAYED RELEASE Take one by mouth daily ADULT ASPIRIN EC LOW STRENGTH 81 MG ORAL TABLET DELAYED RELEASE 514707 ASPIRIN Inactive FUROSEMIDE 40 MG ORAL TABLET Take one by mouth daily FUROSEMIDE 40 MG ORAL TABLET 208720 FUROSEMIDE Inactive BACTRIM DS 800-160 MG ORAL TABLET 1 twice a day BACTRIM DS 800-160 MG ORAL TABLET 627704 SULFAMETHOXAZOLE-TRIMETHOPRIM Inactive IPRATROPIUM-ALBUTEROL 0.5-2.5 (3) MG/3ML INHALATION SOLUTION 1 neb treatment QID for cough Dx: J06.9 IPRATROPIUM-ALBUTEROL 0.5-2.5 ( 3) MG/3ML INHALATION SOLUTION 3350732 IPRATROPIUM-ALBUTEROL Inactive TYLENOL 8 HOUR 650 MG [...] BID 06/28 BACTROBAN 2 % EXTERNAL OINTMENT 768652 MUPIROCIN Inactive LAMICTAL 25 MG ORAL TABLET 2 tabs by mouth twice a day LAMICTAL 25 MG ORAL TABLET 223894 LAMOTRIGINE Inactive NOVOLOG 100 UNIT/ML SUBCUTANEOUS SOLUTION 10 UNITS BEFORE SUPPER NOVOLOG 100 UNIT/ML SUBCUTANEOUS SOLUTION INSULIN ASPART Inactive NOVOLOG 100 UNIT/ML SUBCUTANEOUS SOLUTION 10 UNITS BID BEFORE BREAKFAST AND LUNCH NOVOLOG 100 UNIT/ML SUBCUTANEOUS SOLUTION INSULIN ASPART Inactive IPRATROPIUM-ALBUTEROL 0.5-2.5 (3) MG/3ML INHALATION SOLUTION 1 neb treatment four times daily, for cough IPRATROPIUM-ALBUTEROL 0.5- 2.5 (3) MG/3ML INHALATION SOLUTION 2967695 IPRATROPIUM-ALBUTEROL Inactive BACTRIM DS 800-160 MG ORAL TABLET 1 tab by mouth twice daily 2016 BACTRIM DS 800-160 MG ORAL TABLET 048212 TRIMETHOPRIM- SULFAMETHOXAZOLE Inactive Advance Directives Directive Description Start Date DURABLE POWER OF CLINICAL RESEARCH PHYSICIAN FOR HEALTHCARE PERMISSION TO SHARE ADVANCED DIRECTIVE [...] temperature weight E&M 181.5 [lb_av] Weight Measured Diagnostic Results Date Name Value Unit Range Description Lab Report: Basic Metabolic Panel - Chemistry sodium, serum 127 mmol/L 481-290 8626/07/28 potassium, serum 5.3 mmol/L 3.5-5.2 chloride, serum 92 mmol/L 98-107 carbon dioxide, venous blood 32.4 mmol/L 21.0-32.0 blood glucose 182 mg/dL 65-110 calcium, serum 9.4 mg/dL 8.5-10.1 urea nitrogen, blood 14 mg/dL 7-18 creatinine, serum 0.94 mg/dL 0.60-1.30 Lab Report: CBC, Comp. Metabolic Panel - Chemistry sodium, serum 129 mmol/L 957-894 6035/07/12 carbon dioxide, venous blood 27.8 mmol/L 21.0-32.0 [...] mg/dL Encounters Code Encounter Date Provider Facility CPT-17800 Level 4 Est. Patient 14:46:38 CDT Pelon Quach MD [facility] CPT-83263 Level 4 Est. Patient 08:43:11 CDT Pelon Quach MD [facility]-20887 Level 4 Est. Patient 14:27:30 CDT Pelon Quach MD [facility] CPT-71822 Level 3 Est. Patient 10:32:17 CDT Jaycee Garcia [facility] CPT-55412 Level 3 Est. Patient 10:15:07 CDT Pelon Quach MD [facility] CPT-80521 Level 4 Est. Patient 09:30:54 CDT Pelon Quach MD [facility] CPT-23300 Level 4 Est. Patient 14:34:25 CDT Pelon Quach MD [facility] CPT-19213 Level 3 Est. Patient 11:51:35 PRESS TENDER Rick Henson DO [facility] CPT-26777 Level 3 Est. Patient 12:13:33 PRESS TENDER Erik Baptiste MD [facility] CPT-99891 Level 3 Est. Patient 09:40:44 PRESS TENDER Jaycee Garcia [facility] CPT-83460 Level 3 Est. Patient 09:36:32 PRESS TENDER Jaycee Garcia [facility] CPT-06878 Level 4 Est. Patient 16:57:02 PRESS TENDER Pelon Quach MD [facility] CPT-06643 Level 4 Est. Patient 22:19:34 CDT Pelon Quach MD [facility] CPT-21891 Level 3 Est. Patient 00:34:41 CDT Pelon Quach MD [facility]-51892 Level 4 Est. Patient 11:19:14 CDT Pelon Quach MD [facility] CPT-75858 Level 4 Est. Patient 16:43:30 PRESS TENDER Pelon Quach MD [facility]-56446 Level 4 Est. Patient 12:42:18 CDT Pelon Quach MD [facility] CPT-68058 Level 4 Est. Patient 11:52:20 CDT Pelon Quach MD [facility] CPT-12661 Level 4 Est. Patient 13:59:46 CDT Pelon Quach MD [facility] CPT-48145 Level 4 Est. Patient 15:10:48 CDT Pelon Quach MD [facility] CPT-80958 Level 4 Est. Patient 17:13:06 CDT Pelon Quach MD [facility] CPT-14336 Level 4 Est. Patient 18:47:47 CDT Pelon Quach MD [facility] CPT-64303 Level 3 Est. Patient 21:01:27 CDT Pelon Quach MD [facility] CPT-36272 Level 3 Est. Patient 14:07:03 CDT Taty Alvarado MD PhD [facility] CPT-88319 Level 3 New Patient 21:39:52 PRESS TENDER Pelon Quach MD [facility] CPT-93781 Level 3 Est. Patient 14:28:44 CDT Glenn Thornton MD [facility] CPT-34270 Level 3 Est. Patient 16:35:00 CDT Glenn Thornton MD [facility] CPT-36652 Level 4 New Patient 17:06:27 CDT Glenn Thornton MD [facility] Procedures Code Procedure Name Date Entry Date Standard Description CPT-G0438 Initial Annual Wellness Exam 09:30:54 CDT CPT-05793 Prevnar 13 Intramuscular Suspension 14:34:25 CDT 12/27 CPT-93288 Chest 2V Frontal and Lat - XRAY USE ONLY 11:56:13 PRESS TENDER CPT-97026 Cystoscopy 14:28:44 CDT CPT-58284 Bladder Scan 14:28:44 CDT CPT-45433 Indwelling Cath Change 17:06:27 CDT CPT-11173 Cystoscopy 17:06:27 CDT
[2018-06-22 11:54] LABS: BUN/CREATININE RATIO 43; CALCIUM 6.6 MG/DL (8.5-10.1); CARBON DIOXIDE 17 MMOL/L (21-32); CHLORIDE 105 MMOL/L (98-107); CREATININE SERUM 0.58 MG/DL (0.60-1.30); GFR ESTIMATED > 60; GLUCOSE 245 MG/DL (70-105); POTASSIUM 4.3 MMOL/L (3.6-5.0); SODIUM 130 MMOL/L (135-145)
--- OUTSIDE RECORDS SUMMARY | 2018-06-22 11:54 | XMS REPORT | Clinical Summary ---
Author Author Admin, ONESIMO Organization [facility] [place] Address Unknown Phone Unavailable Allergies, Adverse Reactions, [...] Quach MD Body Mass Index 27.0-27.9, adult ANXIETY ICD-300.00 Inactive Pelon Quach MD ATRIAL [...] as needed for muscle spasm/pain CYCLOBENZAPRINE HCL 57495369948 Active Pelon Quach MD Active BENADRYL 25 MG ORAL CAPSULE 1 po q8hr PRN Congestion DIPHENHYDRAMINE HCL 89759545104 Active Pelon Quach MD Active ZOFRAN 4 MG ORAL TABLET 1 po q6hr PRN Nausea ONDANSETRON HCL 58262531974 Active Pelon Quach MD Active IMODIUM A-D 2 MG ORAL TABLET One QID prn diarrhea. No more than 4 tabs daily LOPERAMIDE HCL 64331017248 Active Pelon Quach MD Active TYLENOL 325 MG ORAL TABLET 2 tabs po prn for pain elevated temp ACETAMINOPHEN 15439909707 Active Pelon Quach MD Active MUCINEX D 60-600 MG ORAL TABLET EXTENDED RELEASE 12 HOUR 1 po BID PRN Congestion PSEUDOEPHEDRINE-GUAIFENESIN 45504558012 Active Pelon Quach MD Active IBUPROFEN 200 MG ORAL TABLET q 6hrs prn pain IBUPROFEN 42187526192 Active Pelon Quach MD Active LORATADINE 10 MG ORAL TABLET 1 tablet by mouth daily prn LORATADINE 31593729261 Active Pelon Quach MD Active BANOPHEN 25 MG ORAL TABLET 1 po every 6 hours PRN allergic reaction DIPHENHYDRAMINE HCL 14289797722 No Longer Active Pelon Quach MD Active EASY TOUCH ALCOHOL PREP MEDIUM 70 % PAD Use with each finger stick and insulin admin Dx: E11.9 ALCOHOL SWABS 08650404549 Active Jaycee Torrez APRN Active HUMALOG KWIKPEN 100 UNIT/ML SUBCUTANEOUS SOLUTION PEN-INJECTOR inject 10 units subcutaneously before meals also sliding scale INSULIN LISPRO 41185289739 Active Pelon Quach MD Active NOVOLOG 100 UNIT/ML SUBCUTANEOUS SOLUTION 10 UNITS BID BEFORE BREAKFAST AND LUNCH INSULIN ASPART 54466466732 No Longer Active NICOLETTE Hitchcock Active NOVOLOG 100 UNIT/ML SUBCUTANEOUS SOLUTION 10 UNITS BEFORE SUPPER INSULIN ASPART 03505195079 No Longer Active NICOLETTE Hitchcock Active INVEGA 6 MG ORAL TABLET EXTENDED RELEASE 24 HOUR 1 po daily for schizophrenia PALIPERIDONE 49402646632 Active Pelon Quach MD Active LAMICTAL 25 MG ORAL TABLET 2 tabs by mouth twice a day LAMOTRIGINE 27888208492 No Longer Active Pelon Quach MD Active BACTROBAN 2 % EXTERNAL OINTMENT Apply to affected area BID 06/28 MUPIROCIN 96240661676 No Longer Active Pelon Quach MD Active INVEGA 6 MG ORAL TABLET EXTENDED RELEASE 24 HOUR 1 po daily for Schizophrenia PALIPERIDONE 64977302351 No Longer Active Pelon Quach MD Active TYLENOL 8 HOUR 650 MG ORAL TABLET EXTENDED RELEASE Take 1 tab po up to 3 times daily as needed ACETAMINOPHEN 24199776372 No Longer Active Pelon Quach MD Active IPRATROPIUM-ALBUTEROL 0.5-2.5 (3) MG/3ML INHALATION SOLUTION 1 neb treatment QID for cough Dx: J06.9 IPRATROPIUM-ALBUTEROL 43458281345 No Longer Active Pelon Quach MD Active BACTRIM DS 800-160 MG ORAL TABLET 1 tab by mouth twice daily 2016 TRIMETHOPRIM-SULFAMETHOXAZOLE 98272414504 No Longer Active Pelon Quach MD Active BACTRIM DS 800-160 MG ORAL TABLET 1 twice a day SULFAMETHOXAZOLE-TRIMETHOPRIM 07082825531 No Longer Active Pelon Quach MD Active IPRATROPIUM-ALBUTEROL 0.5-2.5 (3) MG/3ML INHALATION SOLUTION 1 neb treatment four times daily, for cough IPRATROPIUM-ALBUTEROL 95448690293 No Longer Active Jaycee Torrez APRN Active FUROSEMIDE 40 MG ORAL TABLET Take one by mouth daily FUROSEMIDE 60052445386 No Longer Active Jaycee Torrez APRN Active LANTUS 100 UNIT/ML SUBCUTANEOUS SOLUTION 20 SUBQ AT HS INSULIN GLARGINE 85294575333 Active Pelon Quach MD Active LAMICTAL 25 MG ORAL TABLET 2 tabs po BID for convulsions LAMOTRIGINE 47239492329 Active Jaycee Torrez APRN Active LASIX 20 MG ORAL TABLET 1 tablet by mouth every morning for edema FUROSEMIDE 87230945928 Active Jaycee Torrez APRN Active BUSPIRONE HCL 10 MG ORAL TABLET 1 tab by mouth BID BUSPIRONE HCL 38354455835 Active Jaycee Torrez APRN Active ADULT ASPIRIN EC LOW STRENGTH 81 MG ORAL TABLET DELAYED RELEASE Take one by mouth daily ASPIRIN 60860983344 No Longer Active Pelon Quach MD Active ASPIRIN 81 MG ORAL TABLET 1 po qd ASPIRIN 16217182609 Active Pelon Quach MD Active ZOFRAN 4 MG ORAL TABLET 1 po q6hr PRN Nausea ONDANSETRON HCL 47084520862 No Longer Active Pelon Quach MD Active TYLENOL 325 MG ORAL TABLET 1-2 pills by mouth every 6 hours if needed for pain /fever ACETAMINOPHEN 84542272108 No Longer Active Pelon Quach MD Active INVEGA 6 MG ORAL TABLET EXTENDED RELEASE 24 HOUR 1 TAB ONCE DAILY PALIPERIDONE 51958301656 No Longer Active Carly Suggs Active TEGRETOL 200 MG ORAL TABLET by mouth twice a day CARBAMAZEPINE 26562192446 Active Taty Alvarado MD PhD Active FLOMAX 0.4 MG ORAL CAPSULE 1 Daily TAMSULOSIN HCL 38706707464 Active Marianelachandrika Juarez Active DILANTIN 100 MG ORAL CAPSULE Take one by mouth daily PHENYTOIN SODIUM EXTENDED 50781705174 No Longer Active Marianelachandrika Shankarronny Active DEPAKOTE SPRINKLES 125 MG ORAL CAPSULE DELAYED RELEASE SPRINKLE 4 capsules by mouth twice daily DIVALPROEX SODIUM 18116851386 No Longer Active Marianela Raida Active LAMICTAL 200 MG ORAL TABLET 1 BY MOUTH TWICE A DAY LAMOTRIGINE 19438500863 Active Marianela Raida Active LAMICTAL 100 MG ORAL TABLET by mouth twice a day LAMOTRIGINE 27293402337 No Longer Active Marianela Raida Active LAMICTAL 150 MG ORAL TABLET by mouth twice a day LAMOTRIGINE 17458698885 No Longer Active Marianelachandrika Shankarida Active DILANTIN 100 MG ORAL CAPSULE Take three by mouth daily PHENYTOIN SODIUM EXTENDED 45443673424 No Longer Active Marianela Larry Active SENOKOT 8.6 MG ORAL TABLET take at bedtime SENNOSIDES 29387723521 Active Pelon Quach MD Active LIPITOR 20 MG ORAL TABLET take at bedtime ATORVASTATIN CALCIUM 29384617657 Active Glenn Thornton MD Active LISINOPRIL 2.5 MG ORAL TABLET Take one by mouth daily LISINOPRIL 37734749818 Active Glenn Thornton MD Active TRENTAL 400 MG CR-TABS by mouth twice a day PENTOXIFYLLINE 59503826405 Active Glenn Thornton MD Active KLOR-CON 10 10 MEQ ORAL TABLET EXTENDED RELEASE Take one by mouth daily POTASSIUM CHLORIDE 65550829608 Active Glenn Thornton MD Active DILANTIN 100 MG ORAL CAPSULE Take three by mouth daily DILANTIN 100 MG ORAL CAPSULE 635066 PHENYTOIN SODIUM EXTENDED Inactive LAMICTAL 150 MG [...] 125 MG ORAL CAPSULE DELAYED RELEASE SPRINKLE 9079438 DIVALPROEX SODIUM Inactive DILANTIN 100 MG ORAL CAPSULE Take one by mouth daily DILANTIN 100 MG ORAL CAPSULE 623719 PHENYTOIN SODIUM EXTENDED Inactive INVEGA 6 MG ORAL TABLET EXTENDED RELEASE 24 HOUR 1 TAB ONCE DAILY INVEGA 6 MG ORAL TABLET EXTENDED RELEASE 24 HOUR PALIPERIDONE Inactive TYLENOL 325 MG ORAL TABLET 1-2 pills by mouth every 6 hours if needed for pain /fever TYLENOL 325 MG ORAL TABLET 387944 ACETAMINOPHEN Inactive ZOFRAN 4 MG ORAL TABLET 1 po q6hr PRN Nausea ZOFRAN 4 MG ORAL TABLET 636889 ONDANSETRON HCL Inactive ADULT ASPIRIN EC LOW STRENGTH 81 MG ORAL TABLET DELAYED RELEASE Take one by mouth daily ADULT ASPIRIN EC LOW STRENGTH 81 MG ORAL TABLET DELAYED RELEASE 473517 ASPIRIN Inactive FUROSEMIDE 40 MG ORAL TABLET Take one by mouth daily FUROSEMIDE 40 MG ORAL TABLET 874819 FUROSEMIDE Inactive BACTRIM DS 800-160 MG ORAL TABLET 1 twice a day BACTRIM DS 800-160 MG ORAL TABLET 448207 SULFAMETHOXAZOLE-TRIMETHOPRIM Inactive IPRATROPIUM-ALBUTEROL 0.5-2.5 (3) MG/3ML INHALATION SOLUTION 1 neb treatment QID for cough Dx: J06.9 IPRATROPIUM-ALBUTEROL 0.5-2.5 ( 3) MG/3ML INHALATION SOLUTION 8574590 IPRATROPIUM-ALBUTEROL Inactive TYLENOL 8 HOUR 650 MG [...] BID 06/28 BACTROBAN 2 % EXTERNAL OINTMENT 557660 MUPIROCIN Inactive LAMICTAL 25 MG ORAL TABLET 2 tabs by mouth twice a day LAMICTAL 25 MG ORAL TABLET 412477 LAMOTRIGINE Inactive NOVOLOG 100 UNIT/ML SUBCUTANEOUS SOLUTION 10 UNITS BEFORE SUPPER NOVOLOG 100 UNIT/ML SUBCUTANEOUS SOLUTION INSULIN ASPART Inactive NOVOLOG 100 UNIT/ML SUBCUTANEOUS SOLUTION 10 UNITS BID BEFORE BREAKFAST AND LUNCH NOVOLOG 100 UNIT/ML SUBCUTANEOUS SOLUTION INSULIN ASPART Inactive BANOPHEN 25 MG ORAL TABLET 1 po every 6 hours PRN allergic reaction BANOPHEN 25 MG ORAL TABLET 8036439 DIPHENHYDRAMINE HCL Inactive IPRATROPIUM-ALBUTEROL 0.5-2.5 (3) MG/3ML INHALATION SOLUTION 1 neb treatment four times daily, for cough IPRATROPIUM-ALBUTEROL 0.5- 2.5 (3) MG/3ML INHALATION SOLUTION 6769180 IPRATROPIUM-ALBUTEROL Inactive BACTRIM DS 800-160 MG ORAL TABLET 1 tab by mouth twice daily 2016 BACTRIM DS 800-160 MG ORAL TABLET 463410 TRIMETHOPRIM- SULFAMETHOXAZOLE Inactive Advance Directives Directive Description Start Date DURABLE POWER OF POLICE CRIME SCENE TECHNICIAN FOR HEALTHCARE PERMISSION TO SHARE ADVANCED DIRECTIVE Vital Signs Date Name Value Unit Range Description blood pressure, diastolic 78 mm[Hg] BP daly [...] Panel - Chemistry sodium, serum 127 mmol/L 372-762 2213/07/28 potassium, serum 5.3 mmol/L 3.5-5.2 chloride, serum 92 mmol/L 98-107 carbon dioxide, venous blood 32.4 mmol/L 21.0-32.0 blood glucose 182 mg/dL 65-110 calcium, serum 9.4 mg/dL 8.5-10.1 urea nitrogen, blood 14 mg/dL 7-18 creatinine, serum 0.94 mg/dL 0.60-1.30 Lab Report: CBC, Comp. Metabolic Panel - Chemistry sodium, serum 129 mmol/L 311-430 4587/07/12 carbon dioxide, venous blood 27.8 mmol/L 21.0-32.0 [...] HGBA1C - Chemistry sodium, serum 123 mmol/L 261-080 5965/04/25 carbon dioxide, venous blood 26.2 mmol/L 21.0-32.0 [...] 4.3-6.0 Lab Report: Comp. Metabolic Panel, CBC, BA1C - Hematology leukocyte count, blood 4.4 10^3/MM^3 [...] mg/dL Encounters Code Encounter Date Provider Facility CPT-12860 [id number] Vst-Est Level III 13:36:24 CDT Pelon Quach MD [facility]-97803 Level 4 Est. Patient 18:11:18 CDT Pelon Quach MD [facility] CPT-16397 Level 4 Est. Patient 14:46:38 CDT Pelon Quach MD [facility]-19418 Level 4 Est. Patient 08:43:11 CDT Pelon Quach MD [facility]-83048 Level 4 Est. Patient 14:27:30 CDT Pelon Quach MD [facility]-99927 Level 3 Est. Patient 10:32:17 CDT Jaycee Torrez [facility]-38605 Level 3 Est. Patient 10:15:07 CDT Pelon Quach MD [facility] CPT-69727 Level 4 Est. Patient 09:30:54 CDT Pelon Quach MD [facility]-00866 Level 4 Est. Patient 14:34:25 CDT Pelon Quach MD [facility]-14098 Level 3 Est. Patient 11:51:35 COMMERCIAL ACCOUNT EXECUTIVE Rick Henson DO [facility]-62877 Level 3 Est. Patient 12:13:33 COMMERCIAL ACCOUNT EXECUTIVE Erik Baptiste MD [facility]-81756 Level 3 Est. Patient 09:40:44 COMMERCIAL ACCOUNT EXECUTIVE Jaycee Torrez [facility]-24826 Level 3 Est. Patient 09:36:32 COMMERCIAL ACCOUNT EXECUTIVE Jaycee Torrez [facility]-02007 Level 4 Est. Patient 16:57:02 COMMERCIAL ACCOUNT EXECUTIVE Pelon Quach MD [facility] CPT-93644 Level 4 Est. Patient 22:19:34 CDT Pelon Quach MD [facility]-97754 Level 3 Est. Patient 00:34:41 CDT Pelon Quach MD [facility]-47993 Level 4 Est. Patient 11:19:14 CDT Pelon Quach MD [facility]-27317 Level 4 Est. Patient 16:43:30 COMMERCIAL ACCOUNT EXECUTIVE Pelon Quach MD [facility]-64455 Level 4 Est. Patient 12:42:18 CDT Pelon Quach MD [facility] CPT-36999 Level 4 Est. Patient 11:52:20 CDT Pelon Quach MD [facility]-25783 Level 4 Est. Patient 13:59:46 CDT Pelon Quach MD [facility]-63866 Level 4 Est. Patient 15:10:48 CDT Pelon Quach MD [facility]-71124 Level 4 Est. Patient 17:13:06 CDT Pelon Quach MD [facility] CPT-05198 Level 4 Est. Patient 18:47:47 CDT Pelon Quach MD [facility]-74925 Level 3 Est. Patient 21:01:27 CDT Pelon Quach MD [facility]-36907 Level 3 Est. Patient 14:07:03 CDT Taty Alvarado MD PhD [facility] CPT-48778 Level 3 New Patient 21:39:52 COMMERCIAL ACCOUNT EXECUTIVE Pelon Quach MD [facility]-67692 Level 3 Est. Patient 14:28:44 CDT Glenn Thornton MD [facility]-88722 Level 3 Est. Patient 16:35:00 CDT Glenn Thornton MD [facility] CPT-63447 Level 4 New Patient 17:06:27 CDT Glenn Thornton MD [facility] - [place] Procedures Code Procedure Name Date Entry Date Standard Description CPT-G0439 Subsequent Annual Wellness Exam 18:11:17 CDT CPT-G0438 Initial Annual Wellness Exam 09:30:54 CDT CPT-28058 Prevnar 13 Intramuscular Suspension 14:34:25 CDT 12/27 CPT-73429 Chest 2V Frontal and Lat - XRAY USE ONLY 11:56:13 COMMERCIAL ACCOUNT EXECUTIVE CPT-21222 Cystoscopy 14:28:44 CDT CPT-76181 Bladder Scan 14:28:44 CDT CPT-67544 Indwelling Cath Change 17:06:27 CDT CPT-33594 Cystoscopy 17:06:27 CDT
--- OUTSIDE RECORDS SUMMARY | 2018-06-22 11:55 | XMS REPORT | Clinical Summary ---
Author Author Admin, ONESIMO Organization [facility] [employer] [place] Address Unknown Phone Unavailable Allergies, Adverse Reactions, [...] unspecified type, uncontrolled Post-op care V67.00 Active ePlon Quach MD Follow-up examination following surgery, unspecified [...] TABS 1 twice a day SULFAMETHOXAZOLE- TRIMETHOPRIM 13553620535 Active Erik Baptiste MD Active IPRATROPIUM-ALBUTEROL 0.5-2.5 (3) MG/3ML INH SOLN 1 neb treatment QID for cough Dx: J06.9 IPRATROPIUM-ALBUTEROL 93745430636 Active NICOLETTE Hitchcock Active IPRATROPIUM-ALBUTEROL 0.5-2.5 (3) MG/3ML SOLN 1 neb treatment four times daily , for cough IPRATROPIUM-ALBUTEROL 89839716166 No Longer Active Jaycee Garcia APRN Active TYLENOL 8 HOUR 650 MG ORAL CR-TABS Take 1 tab po up to 3 times daily as needed ACETAMINOPHEN 96265806893 Active Jayceehugo Garcia APRN Active FUROSEMIDE 40 MG TABS Take one by mouth daily FUROSEMIDE 90747085715 No Longer Active Jaycee Garcia VICTORINO Active LANTUS 100 UNIT/ML SC SOLN 20 SUBQ AT HS INSULIN GLARGINE 88592310507 Active Jayceehugo Garcia APRN Active LAMICTAL 25 MG ORAL TABS 2 tabs po BID for convulsions LAMOTRIGINE 18314870429 Active Jaycee Jose VICTORINO Active INVEGA 6 MG ORAL [id number] 1 po daily for Schizophrenia PALIPERIDONE 93150852047 Active Jayceehugo Garcia APRN Active LASIX 20 MG TAB 1 tablet by mouth every morning for edema FUROSEMIDE 36834363130 Active Jaycee Jose VICTORINO Active BUSPIRONE HCL 10 MG TABS 1 tab by mouth BID BUSPIRONE HCL 69767395365 Active Jayceehugo Garcia APRN Active NOVOLOG 100 UNIT/ML SC SOLN 10 UNITS BEFORE SUPPER INSULIN ASPART 43223762861 Active Jaycee Garcia VICTORINO Active NOVOLOG 100 UNIT/ML SC SOLN 10 UNITS BID BEFORE BREAKFAST AND LUNCH INSULIN ASPART 44356001561 Active Jaycee Garcia VICTORINO Active LAMICTAL 25 MG TABS 2 tabs by mouth twice a day LAMOTRIGINE 58758205875 Active Pelon Quach MD Active ADULT ASPIRIN EC LOW STRENGTH 81 MG TBEC Take one by mouth daily ASPIRIN 69682821480 No Longer Active Pelon Quach MD Active ASPIRIN 81 MG ORAL TABS 1 po qd ASPIRIN 73675686117 Active Pelon Quach MD Active ZOFRAN 4 MG TABS 1 po q6hr PRN Nausea ONDANSETRON HCL 01746612505 No Longer Active Pelon Quach MD Active TYLENOL 325 MG TAB 1-2 pills by mouth every 6 hours if needed for pain/fever ACETAMINOPHEN 02533669569 No Longer Active Pelon Quach MD Active INVEGA 6 MG ORAL [id number] 1 TAB ONCE DAILY PALIPERIDONE 70282552758 No Longer Active Carly Suggs Active TEGRETOL 200 MG TABS by mouth twice a day CARBAMAZEPINE 19577356447 Active Taty Alvarado MD PhD Active FLOMAX 0.4 MG CAPS 1 Daily TAMSULOSIN HCL 79994140512 Active Marianela Juarez Active DILANTIN 100 MG CAPS Take one by mouth daily PHENYTOIN SODIUM EXTENDED 94610680122 No Longer Active Marianela Juarez Active DEPAKOTE SPRINKLES 125 MG CPSP 4 capsules by mouth twice daily DIVALPROEX SODIUM 32573822859 No Longer Active Marianelachandrika Juarez Active LAMICTAL 200 MG ORAL TABS 1 BY MOUTH TWICE A DAY LAMOTRIGINE 96007521190 Active Marianelachandrika Juarez Active LAMICTAL 100 MG TABS by mouth twice a day LAMOTRIGINE 80168368921 No Longer Active Marianelachandrika Juarez Active LAMICTAL 150 MG TABS by mouth twice a day LAMOTRIGINE 93544138464 No Longer Active Marianelachandrika Shankarronny Active DILANTIN 100 MG CAPS Take three by mouth daily PHENYTOIN SODIUM EXTENDED 43958827906 No Longer Active Marianela Juarez Active SENOKOT 8.6 MG TABS take at bedtime SENNOSIDES 32676550043 Active Glenn Thornton MD Active LIPITOR 20 MG TABS take at bedtime ATORVASTATIN CALCIUM 55345386110 Active Glenn Thornton MD Active LISINOPRIL 2.5 MG TABS Take one by mouth daily LISINOPRIL 18027590606 Active Glenn Thornton MD Active TRENTAL 400 MG CR-TABS by mouth twice a day PENTOXIFYLLINE 76384517827 Active Glenn Thornton MD Active KLOR-CON 10 10 MEQ CR-TABS Take one by mouth daily POTASSIUM CHLORIDE 08884930258 Active Glenn Thornton MD Active DILANTIN 100 MG CAPS Take three by mouth daily DILANTIN 100 MG CAPS 109310 PHENYTOIN SODIUM EXTENDED Inactive LAMICTAL 150 MG TABS by mouth twice a day LAMICTAL 150 MG TABS 19831025 LAMOTRIGINE Inactive LAMICTAL 100 MG TABS by mouth twice a day LAMICTAL 100 MG TABS 19831024 LAMOTRIGINE Inactive DEPAKOTE SPRINKLES 125 MG CPSP 4 capsules by mouth twice daily DEPAKOTE SPRINKLES 125 MG CPSP 5663642 DIVALPROEX SODIUM Inactive DILANTIN 100 MG CAPS Take one by mouth daily DILANTIN 100 MG CAPS 766630 PHENYTOIN SODIUM EXTENDED Inactive INVEGA 6 MG ORAL [id number] 1 TAB ONCE DAILY INVEGA 6 MG ORAL [id number] PALIPERIDONE Inactive TYLENOL 325 MG TAB 1-2 pills by mouth every 6 hours if needed for pain/fever TYLENOL 325 MG TAB 260098 ACETAMINOPHEN Inactive ZOFRAN 4 MG TABS 1 po q6hr PRN Nausea ZOFRAN 4 MG TABS 863600 ONDANSETRON HCL Inactive ADULT ASPIRIN EC LOW STRENGTH 81 MG TBEC Take one by mouth daily ADULT ASPIRIN EC LOW STRENGTH 81 MG TBEC 682202 ASPIRIN Inactive FUROSEMIDE 40 MG TABS Take one by mouth daily FUROSEMIDE 40 MG TABS 025022 FUROSEMIDE Inactive IPRATROPIUM-ALBUTEROL 0.5-2.5 (3) MG/3ML SOLN 1 neb treatment four times daily , for cough IPRATROPIUM-ALBUTEROL 0.5-2.5 (3) MG/3ML SOLN 3804504 IPRATROPIUM-ALBUTEROL Inactive Advance Directives Directive Description Start Date DURABLE POWER OF CHILD DEVELOPMENT ASSISTANT FOR HEALTHCARE PERMISSION TO SHARE ADVANCED [...] mg/dL Encounters Code Encounter Date Provider Facility CPT-48970 Level 3 Est. Patient 12:13:33 WEASAND TRIMMER Erik Baptiste MD [facility] CPT-21434 Level 3 Est. Patient 09:40:44 WEASAND TRIMMER Jaycee Garcia [facility] CPT-15924 Level 3 Est. Patient 09:36:32 WEASAND TRIMMER Jaycee Garcia [facility] CPT-71420 Level 4 Est. Patient 16:57:02 WEASAND TRIMMER Pelon Quach MD [facility] CPT-79684 Level 4 Est. Patient 22:19:34 CDT Pelon Quach MD [facility] CPT-14713 Level 3 Est. Patient 00:34:41 CDT Pelon Quach MD [facility]-49422 Level 4 Est. Patient 11:19:14 CDT Pelon Quach MD [facility] CPT-25240 Level 4 Est. Patient 16:43:30 WEASAND TRIMMER Pelon Quach MD [facility] CPT-77869 Level 4 Est. Patient 12:42:18 CDT Pelon Quach MD [facility] CPT-43234 Level 4 Est. Patient 11:52:20 CDT Pelon Quach MD [facility] CPT-68290 Level 4 Est. Patient 13:59:46 CDT Pelon Quach MD [facility] CPT-45240 Level 4 Est. Patient 15:10:48 CDT Pelon Quach MD [facility] CPT-70375 Level 4 Est. Patient 17:13:06 CDT Pelon Quach MD [facility] CPT-26353 Level 4 Est. Patient 18:47:47 CDT Pelon Quach MD [facility] CPT-19702 Level 3 Est. Patient 21:01:27 CDT Pelon Quach MD [facility] CPT-47204 Level 3 Est. Patient 14:07:03 CDT Taty Alvarado MD PhD [facility] CPT-49986 Level 3 New Patient 21:39:52 WEASAND TRIMMER Pelon Quach MD [facility] CPT-21488 Level 3 Est. Patient 14:28:44 CDT Glenn Thornton MD [facility] CPT-99851 Level 3 Est. Patient 16:35:00 CDT Glenn Thornton MD [facility] CPT-82366 Level 4 New Patient 17:06:27 CDT Glenn Thornton MD [facility] [place] Procedures Code Procedure Name Date Entry Date Standard Description CPT-82173 Cystoscopy 14:28:44 CDT CPT-51801 Bladder Scan 14:28:44 CDT CPT-24340 Indwelling Cath Change 17:06:27 CDT CPT-07441 Cystoscopy 17:06:27 CDT
--- OUTSIDE RECORDS SUMMARY | 2018-06-22 11:56 | XMS REPORT | Clinical Summary ---
Author Author Admin, E Organization [facility] [employer] Address Unknown Phone Unavailable Allergies, Adverse Reactions, [...] foot and toe(s), without mention of infection Medication List Medication Instructions Start Date Stop Date Generic Name NDC Status Provider Patient Instruction TYLENOL 325 MG TAB 1-2 pills by mouth every 6 hours if needed for pain/fever ACETAMINOPHEN 81976967290 Active Pelon Quach MD Active LANTUS 100 UNIT/ML SC SOLN 18 SUBQ AT HS INSULIN GLARGINE 25357173116 Active Pelon Quach MD Active ZOFRAN 4 MG TABS 1 po q6hr PRN Nausea ONDANSETRON HCL 18814161046 Active Pelon Quach MD Active TEGRETOL 200 MG TABS by mouth twice a day CARBAMAZEPINE 93588253521 Active Taty Alvarado MD PhD Active NOVOLOG 100 UNIT/ML SC SOLN 7 UNITS BEFORE SUPPER INSULIN ASPART 06421283896 Active Marianela Shankarida Active NOVOLOG 100 UNIT/ML SC SOLN 7 UNITS BID BEFORE BREAKFAST AND LUNCH INSULIN ASPART 21566674869 Active Marianelachandrika Shankarida Active FLOMAX 0.4 MG CAPS 1 Daily TAMSULOSIN HCL 12652935845 Active Marianela Juarez Active INVEGA 6 MG ORAL [id number] 1 TAB ONCE DAILY PALIPERIDONE 66697132985 Active Marianela Juarez Active DILANTIN 100 MG CAPS Take one by mouth daily PHENYTOIN SODIUM EXTENDED 59457137788 No Longer Active Marianela Juarez Active DEPAKOTE SPRINKLES 125 MG CPSP 4 capsules by mouth twice daily DIVALPROEX SODIUM 84341564332 No Longer Active Marianela Shankarida Active LAMICTAL 200 MG ORAL TABS 1 BY MOUTH TWICE A DAY LAMOTRIGINE 56070071656 Active Marianelachandrika Juarez Active LAMICTAL 100 MG TABS by mouth twice a day LAMOTRIGINE 37174664585 No Longer Active Marianelachandrika Shankarida Active LAMICTAL 150 MG TABS by mouth twice a day LAMOTRIGINE 85966794067 No Longer Active Marianelachandrika Juarez Active DILANTIN 100 MG CAPS Take three by mouth daily PHENYTOIN SODIUM EXTENDED 13654625361 No Longer Active Marianelachandrika Shankarida Active SENOKOT 8.6 MG TABS take at bedtime SENNOSIDES 84860205345 Active Glenn Thornton MD Active LIPITOR 20 MG TABS take at bedtime ATORVASTATIN CALCIUM 29401310323 Active Glenn Thornton MD Active LISINOPRIL 2.5 MG TABS Take one by mouth daily LISINOPRIL 14610934110 Active Glenn Thornton MD Active TRENTAL 400 MG CR-TABS by mouth twice a day PENTOXIFYLLINE 14849900098 Active Glenn Thornton MD Active LAMICTAL 25 MG TABS by mouth twice a day LAMOTRIGINE 83139643664 Active Glenn Thornton MD Active BUSPIRONE HCL 10 MG TABS by mouth twice a day BUSPIRONE HCL 04507524525 Active Glenn Thornton MD Active FUROSEMIDE 40 MG TABS Take one by mouth daily FUROSEMIDE 64543518020 Active Glenn Thornton MD Active KLOR-CON 10 10 MEQ CR-TABS Take one by mouth daily POTASSIUM CHLORIDE 16700156966 Active Glenn Thornton MD Active ADULT ASPIRIN EC LOW STRENGTH 81 MG TBEC Take one by mouth daily ASPIRIN 16035509581 Active Glenn Thornton MD Active DILANTIN 100 MG CAPS Take three by mouth daily DILANTIN 100 MG CAPS 367150 PHENYTOIN SODIUM EXTENDED Inactive LAMICTAL 150 MG TABS by mouth twice a day LAMICTAL 150 MG TABS 19831025 LAMOTRIGINE Inactive LAMICTAL 100 MG TABS by mouth twice a day LAMICTAL 100 MG TABS 19831024 LAMOTRIGINE Inactive DEPAKOTE SPRINKLES 125 MG CPSP 4 capsules by mouth twice daily DEPAKOTE SPRINKLES 125 MG CPSP 6794256 DIVALPROEX SODIUM Inactive DILANTIN 100 MG CAPS Take one by mouth daily DILANTIN 100 MG CAPS 258986 PHENYTOIN SODIUM EXTENDED Inactive Advance Directives Directive Description Start Date DURABLE POWER OF CONTRACT PROCESSOR FOR HEALTHCARE PERMISSION TO SHARE Vital Signs Date Name Value Unit Range Description blood pressure, diastolic - 8462-4 72 mm[Hg] [...] as % of total hemoglobin 6.6 % Office Visit: 3 MONTH FU - Chemistry cholesterol, target level 200 mg/dL LDL target level 100 mg/dL HDL cholesterol, serum, target level 40 mg/dL triglyceride, target level 150 mg/dL Office Visit: GET EST - Chemistry cholesterol, target level 200 mg/dL triglyceride, target level 200 mg/dL HDL cholesterol, serum, target level 35 mg/dL LDL target level 100 mg/dL home glucose monitor utilized Yes Encounters Code Encounter Date Provider Facility CPT-67894 Level 4 Est. Patient 18:47:47 CDT Pelon Quach MD [facility] CPT-25241 Level 3 Est. Patient 21:01:27 CDT Pelon Quach MD [facility] CPT-15408 Level 3 Est. Patient 14:07:03 CDT Taty Alvarado MD, PhD [facility] CPT-58787 Level 3 New Patient 21:39:52 PARK LANDSCAPE ARCHITECT Pelon Quach MD [facility] CPT-25702 Level 3 Est. Patient 14:28:44 CDT Glenn Thornton MD [facility] CPT-88239 Level 3 Est. Patient 16:35:00 CDT Glenn Thornton MD [facility] CPT-42866 Level 4 New Patient 17:06:27 CDT Glenn Thornton MD [facility] Procedures Code Procedure Name Date Entry Date Standard Description CPT-66188 Cystoscopy 14:28:44 CDT CPT-57490 Bladder Scan 14:28:44 CDT CPT-24609 Indwelling Cath Change 17:06:27 CDT CPT-03722 Cystoscopy 17:06:27 CDT
--- OUTSIDE RECORDS SUMMARY | 2018-06-22 11:56 | XMS REPORT | Clinical Summary ---
Author Author Admin, ONESIMO Organization [facility] [employer] [place] Address Unknown Phone Unavailable Allergies, Adverse Reactions, [...] Provider Patient Instruction INVEGA 6 MG ORAL [id number] 1 po daily for Schizophrenia PALIPERIDONE 22823114550 No Longer Active Pelon Quach MD Active TYLENOL 8 HOUR 650 MG ORAL CR-TABS Take 1 tab po up to 3 times daily as needed ACETAMINOPHEN 99762442663 No Longer Active Pelon Quach MD Active IPRATROPIUM-ALBUTEROL 0.5-2.5 (3) MG/3ML INH SOLN 1 neb treatment QID for cough Dx: J06.9 IPRATROPIUM-ALBUTEROL 08333813790 No Longer Active Pelon Quach MD Active BACTRIM DS 800-160 MG TAB 1 tab by mouth twice daily TRIMETHOPRIM-SULFAMETHOXAZOLE 97421232486 No Longer Active Pelon Quach MD Active BACTROBAN 2 % OINTMENT Apply to affected area BID MUPIROCIN 33113078135 Active Jaycee Garcia APRN Active BACTRIM DS 800-160 MG TABS 1 twice a day SULFAMETHOXAZOLE-TRIMETHOPRIM 42569181243 No Longer Active Pelon Quach MD Active IPRATROPIUM-ALBUTEROL 0.5-2.5 (3) MG/3ML SOLN 1 neb treatment four times daily , for cough IPRATROPIUM-ALBUTEROL 26642805675 No Longer Active Jaycee Garcia APRN Active FUROSEMIDE 40 MG TABS Take one by mouth daily FUROSEMIDE 43840771200 No Longer Active Jaycee Garcia APRN Active LANTUS 100 UNIT/ML SC SOLN 20 SUBQ AT HS INSULIN GLARGINE 45790422276 Active Jaycee Garcia APRN Active LAMICTAL 25 MG ORAL TABS 2 tabs po BID for convulsions LAMOTRIGINE 31605623509 Active Jaycee Garcia APRN Active LASIX 20 MG TAB 1 tablet by mouth every morning for edema FUROSEMIDE 92754995322 Active Jaycee Garcia APRN Active BUSPIRONE HCL 10 MG TABS 1 tab by mouth BID BUSPIRONE HCL 71274208462 Active Jaycee Jose HEALTH SERVICE WORKER Active NOVOLOG 100 UNIT/ML SC SOLN 10 UNITS BEFORE SUPPER INSULIN ASPART 32409721549 Active Jaycee Garcia HEALTH SERVICE WORKER Active NOVOLOG 100 UNIT/ML SC SOLN 10 UNITS BID BEFORE BREAKFAST AND LUNCH INSULIN ASPART 78474245500 Active Jaycee Garcia HEALTH SERVICE WORKER Active LAMICTAL 25 MG TABS 2 tabs by mouth twice a day LAMOTRIGINE 72511802989 Active Pelon Quach MD Active ADULT ASPIRIN EC LOW STRENGTH 81 MG TBEC Take one by mouth daily ASPIRIN 12575475754 No Longer Active Pelon Quach MD Active ASPIRIN 81 MG ORAL TABS 1 po qd ASPIRIN 89498650351 Active Pelon Quach MD Active ZOFRAN 4 MG TABS 1 po q6hr PRN Nausea ONDANSETRON HCL 24296677578 No Longer Active Pelon Quach MD Active TYLENOL 325 MG TAB 1-2 pills by mouth every 6 hours if needed for pain/fever ACETAMINOPHEN 29982570279 No Longer Active Pelon Quach MD Active INVEGA 6 MG ORAL [id number] 1 TAB ONCE DAILY PALIPERIDONE 75186024542 No Longer Active Carly Suggs Active TEGRETOL 200 MG TABS by mouth twice a day CARBAMAZEPINE 09504680209 Active Taty Alvarado MD PhD Active FLOMAX 0.4 MG CAPS 1 Daily TAMSULOSIN HCL 89352156145 Active Marianelachandrika Juarez Active DILANTIN 100 MG CAPS Take one by mouth daily PHENYTOIN SODIUM EXTENDED 93803335317 No Longer Active Marianelachandrika Juarez Active DEPAKOTE SPRINKLES 125 MG CPSP 4 capsules by mouth twice daily DIVALPROEX SODIUM 03728994428 No Longer Active Marianelachandrika Juarez Active LAMICTAL 200 MG ORAL TABS 1 BY MOUTH TWICE A DAY LAMOTRIGINE 50478238908 Active Marianelachandrika Juarez Active LAMICTAL 100 MG TABS by mouth twice a day LAMOTRIGINE 06781115009 No Longer Active Marianelachandrika Juarez Active LAMICTAL 150 MG TABS by mouth twice a day LAMOTRIGINE 43022732409 No Longer Active Marianelachandrika Juarez Active DILANTIN 100 MG CAPS Take three by mouth daily PHENYTOIN SODIUM EXTENDED 09988489983 No Longer Active Marianelachandrika Juarez Active SENOKOT 8.6 MG TABS take at bedtime SENNOSIDES 07219097542 Active Glenn Thornton MD Active LIPITOR 20 MG TABS take at bedtime ATORVASTATIN CALCIUM 15420517832 Active Glenn Thornton MD Active LISINOPRIL 2.5 MG TABS Take one by mouth daily LISINOPRIL 03429481024 Active Glenn Thornton MD Active TRENTAL 400 MG CR-TABS by mouth twice a day PENTOXIFYLLINE 63967190928 Active Glenn Thornton MD Active KLOR-CON 10 10 MEQ CR-TABS Take one by mouth daily POTASSIUM CHLORIDE 36805636754 Active Glenn Thornton MD Active DILANTIN 100 MG CAPS Take three by mouth daily DILANTIN 100 MG CAPS 265969 PHENYTOIN SODIUM EXTENDED Inactive LAMICTAL 150 MG TABS by mouth twice a day LAMICTAL 150 MG TABS 636423 LAMOTRIGINE Inactive LAMICTAL 100 MG TABS by mouth twice a day LAMICTAL 100 MG TABS 222657 LAMOTRIGINE Inactive DEPAKOTE SPRINKLES 125 MG CPSP 4 capsules by mouth twice daily DEPAKOTE SPRINKLES 125 MG CPSP 1406177 DIVALPROEX SODIUM Inactive DILANTIN 100 MG CAPS Take one by mouth daily DILANTIN 100 MG CAPS 599165 PHENYTOIN SODIUM EXTENDED Inactive INVEGA 6 MG ORAL [id number] 1 TAB ONCE DAILY INVEGA 6 MG ORAL [id number] PALIPERIDONE Inactive TYLENOL 325 MG TAB 1-2 pills by mouth every 6 hours if needed for pain/fever TYLENOL 325 MG TAB 455057 ACETAMINOPHEN Inactive ZOFRAN 4 MG TABS 1 po q6hr PRN Nausea ZOFRAN 4 MG TABS 863749 ONDANSETRON HCL Inactive ADULT ASPIRIN EC LOW STRENGTH 81 MG TBEC Take one by mouth daily ADULT ASPIRIN EC LOW STRENGTH 81 MG TBEC 100633 ASPIRIN Inactive FUROSEMIDE 40 MG TABS Take one by mouth daily FUROSEMIDE 40 MG TABS 359225 FUROSEMIDE Inactive BACTRIM DS 800-160 MG TABS 1 twice a day BACTRIM DS 800-160 MG TABS 19821119 SULFAMETHOXAZOLE-TRIMETHOPRIM Inactive IPRATROPIUM-ALBUTEROL 0.5-2.5 (3) MG/3ML INH SOLN 1 neb treatment QID for cough Dx: J06.9 IPRATROPIUM-ALBUTEROL 0.5-2.5 (3) MG/ 3ML INH SOLN 2195788 IPRATROPIUM-ALBUTEROL Inactive TYLENOL 8 HOUR 650 MG ORAL CR-TABS Take 1 tab po up to 3 times daily as needed TYLENOL 8 HOUR 650 MG ORAL CR-TABS ACETAMINOPHEN Inactive INVEGA 6 MG ORAL [id number] 1 po daily for Schizophrenia INVEGA 6 MG ORAL [id number] PALIPERIDONE Inactive IPRATROPIUM-ALBUTEROL 0.5-2.5 (3) MG/3ML SOLN 1 neb treatment four times daily , for cough IPRATROPIUM-ALBUTEROL 0.5-2.5 (3) MG/3ML SOLN 4339824 IPRATROPIUM-ALBUTEROL Inactive BACTRIM DS 800-160 MG TAB 1 tab by mouth twice daily BACTRIM DS 800-160 MG TAB 19821119 TRIMETHOPRIM-SULFAMETHOXAZOLE Inactive Advance Directives Directive Description Start Date DURABLE POWER OF SHOWROOM EXECUTIVE DIRECTOR FOR HEALTHCARE PERMISSION TO SHARE ADVANCED DIRECTIVE [...] Panel - Chemistry sodium, serum 129 mmol/L 739-452 2596/07/12 carbon dioxide, venous blood 27.8 mmol/L 21.0-32.0 [...] mg/dL Encounters Code Encounter Date Provider Facility CPT-84394 Level 4 Est. Patient 14:27:30 CDT Pelon Quach MD [facility] CPT-08133 Level 3 Est. Patient 10:32:17 CDT Jaycee Garcia [facility] CPT-96866 Level 3 Est. Patient 10:15:07 CDT Pelon Quach MD [facility]-81768 Level 4 Est. Patient 09:30:54 CDT Pelon Quach MD [facility] CPT-45125 Level 4 Est. Patient 14:34:25 CDT Pelon Quach MD [facility]-69201 Level 3 Est. Patient 11:51:35 ENERGY AUDITOR Rick Henson DO [facility] CPT-15509 Level 3 Est. Patient 12:13:33 ENERGY AUDITOR Erik Baptiste MD [facility]-37816 Level 3 Est. Patient 09:40:44 ENERGY AUDITOR Jaycee Garcia [facility]-38112 Level 3 Est. Patient 09:36:32 ENERGY AUDITOR Jaycee Garcia [facility] CPT-47596 Level 4 Est. Patient 16:57:02 ENERGY AUDITOR Pelon Quach MD [facility] CPT-14552 Level 4 Est. Patient 22:19:34 CDT Pelon Quach MD [facility] CPT-22708 Level 3 Est. Patient 00:34:41 CDT Pelon Quach MD [facility]-58297 Level 4 Est. Patient 11:19:14 CDT Pelon Quach MD [facility] CPT-31081 Level 4 Est. Patient 16:43:30 ENERGY AUDITOR Pelon Quach MD [facility] CPT-03064 Level 4 Est. Patient 12:42:18 CDT Pelon Quach MD [facility] CPT-13536 Level 4 Est. Patient 11:52:20 CDT Pelon Quach MD [facility] CPT-97002 Level 4 Est. Patient 13:59:46 CDT Pelon Quach MD [facility] CPT-14329 Level 4 Est. Patient 15:10:48 CDT Pelon Quach MD [facility] CPT-93300 Level 4 Est. Patient 17:13:06 CDT Pelon Quach MD [facility] CPT-00902 Level 4 Est. Patient 18:47:47 CDT Pelon Quach MD [facility] CPT-09304 Level 3 Est. Patient 21:01:27 CDT Pelon Quach MD [facility] CPT-42372 Level 3 Est. Patient 14:07:03 CDT Taty Alvarado MD [facility] CPT-92878 Level 3 New Patient 21:39:52 ENERGY AUDITOR Pelon Quach MD [facility] CPT-15935 Level 3 Est. Patient 14:28:44 CDT Glenn Thornton MD [facility] CPT-16793 Level 3 Est. Patient 16:35:00 CDT Glenn Thornton MD [facility] CPT-51087 Level 4 New Patient 17:06:27 CDT Glenn Thornton MD [facility] [place] Procedures Code Procedure Name Date Entry Date Standard Description CPT-G0438 Initial Annual Wellness Exam 09:30:54 CDT CPT-36749 Prevnar 13 Intramuscular Suspension 14:34:25 CDT 12/27 CPT-88001 Chest 2V Frontal and Lat - XRAY USE ONLY 11:56:13 ENERGY AUDITOR CPT-52038 Cystoscopy 14:28:44 CDT CPT-82826 Bladder Scan 14:28:44 CDT CPT-82181 Indwelling Cath Change 17:06:27 CDT CPT-48060 Cystoscopy 17:06:27 CDT
--- OUTSIDE RECORDS SUMMARY | 2018-06-22 11:57 | XMS REPORT | Clinical Summary ---
Author Author Admin, ONESIMO Organization [facility] [employer] Address Unknown Phone Unavailable Allergies, Adverse [...] TABS 1 twice a day SULFAMETHOXAZOLE- TRIMETHOPRIM 69932541008 Active Erik Baptiste MD Active IPRATROPIUM-ALBUTEROL 0.5-2.5 (3) MG/3ML INH SOLN 1 neb treatment QID for cough Dx: J06.9 IPRATROPIUM-ALBUTEROL 97816805380 Active NICOLETTE Hitchcock Active IPRATROPIUM-ALBUTEROL 0.5-2.5 (3) MG/3ML SOLN 1 neb treatment four times daily , for cough IPRATROPIUM-ALBUTEROL 25890502034 No Longer Active Jaycee Garcia APRN Active TYLENOL 8 HOUR 650 MG ORAL CR-TABS Take 1 tab po up to 3 times daily as needed ACETAMINOPHEN 57785064450 Active Jayceehugo Garcia APRN Active FUROSEMIDE 40 MG TABS Take one by mouth daily FUROSEMIDE 14090346205 No Longer Active Jaycee Jose VICTORINO Active LANTUS 100 UNIT/ML SC SOLN 20 SUBQ AT HS INSULIN GLARGINE 50177448919 Active Jaycee Garcia APRN Active LAMICTAL 25 MG ORAL TABS 2 tabs po BID for convulsions LAMOTRIGINE 74859781684 Active Jayceehugo Garcia APRN Active INVEGA 6 MG ORAL [id number] 1 po daily for Schizophrenia PALIPERIDONE 72065953762 Active Jayceehugo Garcia APRN Active LASIX 20 MG TAB 1 tablet by mouth every morning for edema FUROSEMIDE 88001147918 Active Jaycee Garcia APRN Active BUSPIRONE HCL 10 MG TABS 1 tab by mouth BID BUSPIRONE HCL 57678826586 Active Jaycee Jose VICTORINO Active NOVOLOG 100 UNIT/ML SC SOLN 10 UNITS BEFORE SUPPER INSULIN ASPART 88350079615 Active Jaycee Jose VICTORINO Active NOVOLOG 100 UNIT/ML SC SOLN 10 UNITS BID BEFORE BREAKFAST AND LUNCH INSULIN ASPART 80307961608 Active Jayceehugo Garcia APRN Active LAMICTAL 25 MG TABS 2 tabs by mouth twice a day LAMOTRIGINE 43935519921 Active Pelon Quach MD Active ADULT ASPIRIN EC LOW STRENGTH 81 MG TBEC Take one by mouth daily ASPIRIN 92825997378 No Longer Active Pelon Quach MD Active ASPIRIN 81 MG ORAL TABS 1 po qd ASPIRIN 69242919562 Active Pelon Quahc MD Active ZOFRAN 4 MG TABS 1 po q6hr PRN Nausea ONDANSETRON HCL 48147395329 No Longer Active Pelon Quach MD Active TYLENOL 325 MG TAB 1-2 pills by mouth every 6 hours if needed for pain/fever ACETAMINOPHEN 48405452798 No Longer Active Pelon Quach MD Active INVEGA 6 MG ORAL [id number] 1 TAB ONCE DAILY PALIPERIDONE 55126935531 No Longer Active Carly Suggs Active TEGRETOL 200 MG TABS by mouth twice a day CARBAMAZEPINE 55679871914 Active Taty Alvarado MD PhD Active FLOMAX 0.4 MG CAPS 1 Daily TAMSULOSIN HCL 42950364338 Active Marianelachandrika Juarez Active DILANTIN 100 MG CAPS Take one by mouth daily PHENYTOIN SODIUM EXTENDED 75646091124 No Longer Active Marianela Juarez Active DEPAKOTE SPRINKLES 125 MG CPSP 4 capsules by mouth twice daily DIVALPROEX SODIUM 05403874217 No Longer Active Marianela Juarez Active LAMICTAL 200 MG ORAL TABS 1 BY MOUTH TWICE A DAY LAMOTRIGINE 31879146967 Active Marianelachandrika Juarez Active LAMICTAL 100 MG TABS by mouth twice a day LAMOTRIGINE 26733655037 No Longer Active Marianelachandrika Juarez Active LAMICTAL 150 MG TABS by mouth twice a day LAMOTRIGINE 93418577340 No Longer Active Marianela Juarez Active DILANTIN 100 MG CAPS Take three by mouth daily PHENYTOIN SODIUM EXTENDED 20178903431 No Longer Active Marianela Juarez Active SENOKOT 8.6 MG TABS take at bedtime SENNOSIDES 60899081899 Active Glenn Thornton MD Active LIPITOR 20 MG TABS take at bedtime ATORVASTATIN CALCIUM 77094823526 Active Glenn Thornton MD Active LISINOPRIL 2.5 MG TABS Take one by mouth daily LISINOPRIL 70994568150 Active Glenn Thornton MD Active TRENTAL 400 MG CR-TABS by mouth twice a day PENTOXIFYLLINE 18688930564 Active Glenn Thornton MD Active KLOR-CON 10 10 MEQ CR-TABS Take one by mouth daily POTASSIUM CHLORIDE 99145901413 Active Glenn Thornton MD Active DILANTIN 100 MG CAPS Take three by mouth daily DILANTIN 100 MG CAPS 611042 PHENYTOIN SODIUM EXTENDED Inactive LAMICTAL 150 MG TABS by mouth twice a day LAMICTAL 150 MG TABS 19831025 LAMOTRIGINE Inactive LAMICTAL 100 MG TABS by mouth twice a day LAMICTAL 100 MG TABS 19831024 LAMOTRIGINE Inactive DEPAKOTE SPRINKLES 125 MG CPSP 4 capsules by mouth twice daily DEPAKOTE SPRINKLES 125 MG CPSP 0927625 DIVALPROEX SODIUM Inactive DILANTIN 100 MG CAPS Take one by mouth daily DILANTIN 100 MG CAPS 165353 PHENYTOIN SODIUM EXTENDED Inactive INVEGA 6 MG ORAL [id number] 1 TAB ONCE DAILY INVEGA 6 MG ORAL [id number] PALIPERIDONE Inactive TYLENOL 325 MG TAB 1-2 pills by mouth every 6 hours if needed for pain/fever TYLENOL 325 MG TAB 543821 ACETAMINOPHEN Inactive ZOFRAN 4 MG TABS 1 po q6hr PRN Nausea ZOFRAN 4 MG TABS 868484 ONDANSETRON HCL Inactive ADULT ASPIRIN EC LOW STRENGTH 81 MG TBEC Take one by mouth daily ADULT ASPIRIN EC LOW STRENGTH 81 MG TBEC 098683 ASPIRIN Inactive FUROSEMIDE 40 MG TABS Take one by mouth daily FUROSEMIDE 40 MG TABS 019738 FUROSEMIDE Inactive IPRATROPIUM-ALBUTEROL 0.5-2.5 (3) MG/3ML SOLN 1 neb treatment four times daily , for cough IPRATROPIUM-ALBUTEROL 0.5-2.5 (3) MG/3ML SOLN 9463992 IPRATROPIUM-ALBUTEROL Inactive Advance Directives Directive Description Start Date DURABLE POWER OF PUMP SERVICER SUPERVISOR FOR HEALTHCARE PERMISSION TO SHARE ADVANCED [...] mg/dL Encounters Code Encounter Date Provider Facility CPT-07173 Level 3 Est. Patient 11:51:35 BOX LIDDER Rick Henson DO [facility] CPT-86874 Level 3 Est. Patient 12:13:33 BOX LIDDER Erik Baptiste MD [facility] CPT-06185 Level 3 Est. Patient 09:40:44 BOX LIDDER Jaycee Garcia [facility] [place][note 2] CPT-32561 Level 3 Est. Patient 09:36:32 BOX LIDDER Jaycee Garcia [facility] [place][note 2] CPT-72429 Level 4 Est. Patient 16:57:02 BOX LIDDER Pelon Quach MD [facility] CPT-00454 Level 4 Est. Patient 22:19:34 CDT Pelon Quach MD [facility] CPT-96706 Level 3 Est. Patient 00:34:41 CDT Pelon Quach MD [facility] CPT-18201 Level 4 Est. Patient 11:19:14 CDT Pelon Quach MD [facility] CPT-70646 Level 4 Est. Patient 16:43:30 BOX LIDDER Pelon Quach MD [facility] CPT-97932 Level 4 Est. Patient 12:42:18 CDT Pelon Quach MD [facility] CPT-13062 Level 4 Est. Patient 11:52:20 CDT Pelon Quach MD [facility] CPT-84243 Level 4 Est. Patient 13:59:46 CDT Pelon Quach MD [facility] CPT-73202 Level 4 Est. Patient 15:10:48 CDT Pelon Quach MD [facility] CPT-51901 Level 4 Est. Patient 17:13:06 CDT Pelon Quach MD [facility] CPT-98063 Level 4 Est. Patient 18:47:47 CDT Pelon Quach MD [facility] CPT-58901 Level 3 Est. Patient 21:01:27 CDT Pelon Quach MD [facility] CPT-51499 Level 3 Est. Patient 14:07:03 CDT Taty Alvarado MD PhD [facility] CPT-68922 Level 3 New Patient 21:39:52 BOX LIDDER Pelon Quach MD [facility] CPT-74827 Level 3 Est. Patient 14:28:44 CDT Glenn Thornton MD [facility] CPT-40062 Level 3 Est. Patient 16:35:00 CDT Glenn Thornton MD [facility] CPT-63786 Level 4 New Patient 17:06:27 CDT Glenn Thornton MD [facility] Procedures Code Procedure Name Date Entry Date Standard Description CPT-54237 Chest 2V Frontal and Lat - XRAY USE ONLY 11:56:13 BOX LIDDER CPT-88562 Cystoscopy 14:28:44 CDT CPT-25877 Bladder Scan 14:28:44 CDT CPT-37401 Indwelling Cath Change 17:06:27 CDT CPT-84719 Cystoscopy 17:06:27 CDT
--- OUTSIDE RECORDS SUMMARY | 2018-06-22 11:57 | XMS REPORT | Clinical Summary ---
Author Author Admin, ONESIMO Organization [facility] [place] Address Unknown Phone Unavailable Allergies, Adverse Reactions, [...] mellitus with other specified complication 250.80 Active Pleon Quach MD Diabetes mellitus with other specified manifestations, type II or unspecified type, not stated as uncontrolled Blister (nonthermal), right great toe, sequela 906.2 Resolved Pelon Qauch MD Late effect of superficial injury Confusion 298.9 Resolved Pelon Quach MD Unspecified psychosis Body Mass Index 28.0-28.9 Adult Active Pelon Quach MD Body Mass Index 28.0-28.9, adult Personal history of fall V15.88 Active Pelon Quach MD Personal history of fall ANXIETY ICD-300.00 Inactive Pelon Quach MD ATRIAL [...] 1 po q8hr PRN Congestion DIPHENHYDRAMINE HCL 13978718848 Active Pelon Quach MD Active ZOFRAN 4 MG ORAL TABLET 1 po q6hr PRN Nausea ONDANSETRON HCL 90943285543 Active Pelon Quach MD Active IMODIUM A-D 2 MG ORAL TABLET One QID prn diarrhea. No more than 4 tabs daily LOPERAMIDE HCL 84441915349 Active Pelon Quach MD Active TYLENOL 325 MG ORAL TABLET 2 tabs po prn for pain elevated temp ACETAMINOPHEN 55617104468 Active Pelon Quach MD Active MUCINEX D 60-600 MG ORAL TABLET EXTENDED RELEASE 12 HOUR 1 po BID PRN Congestion PSEUDOEPHEDRINE-GUAIFENESIN 84868810570 Active Pelon Quach MD Active IBUPROFEN 200 MG ORAL TABLET q 6hrs prn pain IBUPROFEN 14029208459 Active Pelon Quach MD Active LORATADINE 10 MG ORAL TABLET 1 tablet by mouth daily prn LORATADINE 83606082937 Active Pelon Quach MD Active BANOPHEN 25 MG ORAL TABLET 1 po every 6 hours PRN allergic reaction DIPHENHYDRAMINE HCL 90663978763 No Longer Active Pelon Quach MD Active EASY TOUCH ALCOHOL PREP MEDIUM 70 % PAD Use with each finger stick and insulin admin Dx: E11.9 ALCOHOL SWABS 45111089931 Active Jaycee Torrez APRN Active HUMALOG KWIKPEN 100 UNIT/ML SUBCUTANEOUS SOLUTION PEN-INJECTOR inject 10 units subcutaneously before meals also sliding scale INSULIN LISPRO 02287237773 Active Pelon Quach MD Active NOVOLOG 100 UNIT/ML SUBCUTANEOUS SOLUTION 10 UNITS BID BEFORE BREAKFAST AND LUNCH INSULIN ASPART 89290102445 No Longer Active NICOLETTE Hitchcock Active NOVOLOG 100 UNIT/ML SUBCUTANEOUS SOLUTION 10 UNITS BEFORE SUPPER INSULIN ASPART 83264445705 No Longer Active NICOLETTE Hitchcock Active INVEGA 6 MG ORAL TABLET EXTENDED RELEASE 24 HOUR 1 po daily for schizophrenia PALIPERIDONE 59803081091 Active Pelon Quach MD Active LAMICTAL 25 MG ORAL TABLET 2 tabs by mouth twice a day LAMOTRIGINE 64003456732 No Longer Active Pelon Quach MD Active BACTROBAN 2 % EXTERNAL OINTMENT Apply to affected area BID 06/28 MUPIROCIN 52516822330 No Longer Active Pelon Quach MD Active INVEGA 6 MG ORAL TABLET EXTENDED RELEASE 24 HOUR 1 po daily for Schizophrenia PALIPERIDONE 11618195917 No Longer Active Pelon Quach MD Active TYLENOL 8 HOUR 650 MG ORAL TABLET EXTENDED RELEASE Take 1 tab po up to 3 times daily as needed ACETAMINOPHEN 91996217375 No Longer Active Pelon Quach MD Active IPRATROPIUM-ALBUTEROL 0.5-2.5 (3) MG/3ML INHALATION SOLUTION 1 neb treatment QID for cough Dx: J06.9 IPRATROPIUM-ALBUTEROL 61960593300 No Longer Active Pelon Quach MD Active BACTRIM DS 800-160 MG ORAL TABLET 1 tab by mouth twice daily 2017 /06/10 TRIMETHOPRIM-SULFAMETHOXAZOLE 35974952094 No Longer Active Pelon Quach MD Active BACTRIM DS 800-160 MG ORAL TABLET 1 twice a day SULFAMETHOXAZOLE-TRIMETHOPRIM 95909900593 No Longer Active Pelon Quach MD Active IPRATROPIUM-ALBUTEROL 0.5-2.5 (3) MG/3ML INHALATION SOLUTION 1 neb treatment four times daily, for cough IPRATROPIUM-ALBUTEROL 88440172853 No Longer Active Jaycee Torrez APRN Active FUROSEMIDE 40 MG ORAL TABLET Take one by mouth daily FUROSEMIDE 04330130958 No Longer Active Jaycee Arenando MOJICAN Active LANTUS 100 UNIT/ML SUBCUTANEOUS SOLUTION 20 SUBQ AT HS INSULIN GLARGINE 38439253969 Active Pelon Quach MD Active LAMICTAL 25 MG ORAL TABLET 2 tabs po BID for convulsions LAMOTRIGINE 44716314896 Active Jaycee Arenando MOJICAN Active LASIX 20 MG ORAL TABLET 1 tablet by mouth every morning for edema FUROSEMIDE 49074783170 Active Jaycee Arenando MOJICAN Active BUSPIRONE HCL 10 MG ORAL TABLET 1 tab by mouth BID BUSPIRONE HCL 10732694427 Active Jaycee Arenando MOJICAN Active ADULT ASPIRIN EC LOW STRENGTH 81 MG ORAL TABLET DELAYED RELEASE Take one by mouth daily ASPIRIN 91792206236 No Longer Active Pelon Quach MD Active ASPIRIN 81 MG ORAL TABLET 1 po qd ASPIRIN 17065690432 Active Pelon Quach MD Active ZOFRAN 4 MG ORAL TABLET 1 po q6hr PRN Nausea ONDANSETRON HCL 08378171651 No Longer Active Pelon Quach MD Active TYLENOL 325 MG ORAL TABLET 1-2 pills by mouth every 6 hours if needed for pain /fever ACETAMINOPHEN 18599515082 No Longer Active Pelon Quach MD Active INVEGA 6 MG ORAL TABLET EXTENDED RELEASE 24 HOUR 1 TAB ONCE DAILY PALIPERIDONE 55525373208 No Longer Active Carly Suggs Active TEGRETOL 200 MG ORAL TABLET by mouth twice a day CARBAMAZEPINE 31777696681 Active Taty Alvarado MD PhD Active FLOMAX 0.4 MG ORAL CAPSULE 1 Daily TAMSULOSIN HCL 31367425712 Active Marianela Juarez Active DILANTIN 100 MG ORAL CAPSULE Take one by mouth daily PHENYTOIN SODIUM EXTENDED 90200939780 No Longer Active Marianela Juarez Active DEPAKOTE SPRINKLES 125 MG ORAL CAPSULE DELAYED RELEASE SPRINKLE 4 capsules by mouth twice daily DIVALPROEX SODIUM 93396317233 No Longer Active Marianela Juarez Active LAMICTAL 200 MG ORAL TABLET 1 BY MOUTH TWICE A DAY LAMOTRIGINE 38313790337 Active Marianela Juarez Active LAMICTAL 100 MG ORAL TABLET by mouth twice a day LAMOTRIGINE 31686641650 No Longer Active Marianelachandrika Juarez Active LAMICTAL 150 MG ORAL TABLET by mouth twice a day LAMOTRIGINE 79704809659 No Longer Active Marianela Juarez Active DILANTIN 100 MG ORAL CAPSULE Take three by mouth daily PHENYTOIN SODIUM EXTENDED 30371398047 No Longer Active Marianela Juarez Active SENOKOT 8.6 MG ORAL TABLET take at bedtime SENNOSIDES 78557108794 Active Pelon Quach MD Active LIPITOR 20 MG ORAL TABLET take at bedtime ATORVASTATIN CALCIUM 95034476272 Active Glenn Thornton MD Active LISINOPRIL 2.5 MG ORAL TABLET Take one by mouth daily LISINOPRIL 97160718270 Active Glenn Thornton MD Active TRENTAL 400 MG CR-TABS by mouth twice a day PENTOXIFYLLINE 29560514166 Active Glenn Thornton MD Active KLOR-CON 10 10 MEQ ORAL TABLET EXTENDED RELEASE Take one by mouth daily POTASSIUM CHLORIDE 13014314516 Active Glenn Thornton MD Active DILANTIN 100 MG ORAL CAPSULE Take three by mouth daily DILANTIN 100 MG ORAL CAPSULE 466618 PHENYTOIN SODIUM EXTENDED Inactive LAMICTAL 150 MG ORAL TABLET by mouth twice a day LAMICTAL 150 MG ORAL TABLET 479656 LAMOTRIGINE Inactive LAMICTAL 100 MG ORAL TABLET by mouth twice a day LAMICTAL 100 MG ORAL TABLET 587892 LAMOTRIGINE Inactive DEPAKOTE SPRINKLES 125 MG ORAL CAPSULE DELAYED RELEASE SPRINKLE 4 capsules by mouth twice daily DEPAKOTE SPRINKLES 125 MG ORAL CAPSULE DELAYED RELEASE SPRINKLE 5591469 DIVALPROEX SODIUM Inactive DILANTIN 100 MG ORAL CAPSULE Take one by mouth daily DILANTIN 100 MG ORAL CAPSULE 964274 PHENYTOIN SODIUM EXTENDED Inactive INVEGA 6 MG ORAL TABLET EXTENDED RELEASE 24 HOUR 1 TAB ONCE DAILY INVEGA 6 MG ORAL TABLET EXTENDED RELEASE 24 HOUR PALIPERIDONE Inactive TYLENOL 325 MG ORAL TABLET 1-2 pills by mouth every 6 hours if needed for pain /fever TYLENOL 325 MG ORAL TABLET 932795 ACETAMINOPHEN Inactive ZOFRAN 4 MG ORAL TABLET 1 po q6hr PRN Nausea ZOFRAN 4 MG ORAL TABLET 001716 ONDANSETRON HCL Inactive ADULT ASPIRIN EC LOW STRENGTH 81 MG ORAL TABLET DELAYED RELEASE Take one by mouth daily ADULT ASPIRIN EC LOW STRENGTH 81 MG ORAL TABLET DELAYED RELEASE 148907 ASPIRIN Inactive FUROSEMIDE 40 MG ORAL TABLET Take one by mouth daily FUROSEMIDE 40 MG ORAL TABLET 996498 FUROSEMIDE Inactive BACTRIM DS 800-160 MG ORAL TABLET 1 twice a day BACTRIM DS 800-160 MG ORAL TABLET 610276 SULFAMETHOXAZOLE-TRIMETHOPRIM Inactive IPRATROPIUM-ALBUTEROL 0.5-2.5 (3) MG/3ML INHALATION SOLUTION 1 neb treatment QID for cough Dx: J06.9 IPRATROPIUM-ALBUTEROL 0.5-2.5 ( 3) MG/3ML INHALATION SOLUTION 6530754 IPRATROPIUM-ALBUTEROL Inactive TYLENOL 8 HOUR 650 MG [...] BID 06/28 BACTROBAN 2 % EXTERNAL OINTMENT 264640 MUPIROCIN Inactive LAMICTAL 25 MG ORAL TABLET 2 tabs by mouth twice a day LAMICTAL 25 MG ORAL TABLET 696637 LAMOTRIGINE Inactive NOVOLOG 100 UNIT/ML SUBCUTANEOUS SOLUTION 10 UNITS BEFORE SUPPER NOVOLOG 100 UNIT/ML SUBCUTANEOUS SOLUTION INSULIN ASPART Inactive NOVOLOG 100 UNIT/ML SUBCUTANEOUS SOLUTION 10 UNITS BID BEFORE BREAKFAST AND LUNCH NOVOLOG 100 UNIT/ML SUBCUTANEOUS SOLUTION INSULIN ASPART Inactive BANOPHEN 25 MG ORAL TABLET 1 po every 6 hours PRN allergic reaction BANOPHEN 25 MG ORAL TABLET 4456379 DIPHENHYDRAMINE HCL Inactive IPRATROPIUM-ALBUTEROL 0.5-2.5 (3) MG/3ML INHALATION SOLUTION 1 neb treatment four times daily, for cough IPRATROPIUM-ALBUTEROL 0.5- 2.5 (3) MG/3ML INHALATION SOLUTION 3035482 IPRATROPIUM-ALBUTEROL Inactive BACTRIM DS 800-160 MG ORAL TABLET 1 tab by mouth twice daily 2016 BACTRIM DS 800-160 MG ORAL TABLET 188920 TRIMETHOPRIM- SULFAMETHOXAZOLE Inactive Advance Directives Directive Description Start Date DURABLE POWER OF TREATING PLANT PUMPER FOR HEALTHCARE PERMISSION TO SHARE ADVANCED DIRECTIVE Vital Signs Date Name Value Unit Range Description blood pressure, diastolic 91 mm[Hg] BP daly [...] Panel - Chemistry sodium, serum 127 mmol/L 598-659 6162/07/28 potassium, serum 5.3 mmol/L 3.5-5.2 chloride, serum 92 mmol/L 98-107 carbon dioxide, venous blood 32.4 mmol/L 21.0-32.0 blood glucose 182 mg/dL 65-110 calcium, serum 9.4 mg/dL 8.5-10.1 urea nitrogen, blood 14 mg/dL 7-18 creatinine, serum 0.94 mg/dL 0.60-1.30 Lab Report: CBC, Comp. Metabolic Panel - Chemistry sodium, serum 129 mmol/L 338-533 0479/07/12 carbon dioxide, venous blood 27.8 mmol/L 21.0-32.0 [...] HGBA1C - Chemistry sodium, serum 123 mmol/L 606-018 3431/04/25 carbon dioxide, venous blood 26.2 mmol/L 21.0-32.0 [...] mg/dL Encounters Code Encounter Date Provider Facility CPT-90394 Level 4 Est. Patient 18:11:18 CDT Pelon Quach MD [facility] CPT-65223 Level 4 Est. Patient 14:46:38 CDT Pelon Quach MD [facility] CPT-43673 Level 4 Est. Patient 08:43:11 CDT Pelon Quach MD [facility] CPT-78539 Level 4 Est. Patient 14:27:30 CDT Pelon Quach MD [facility]-92278 Level 3 Est. Patient 10:32:17 CDT Jaycee Torrez [facility] CPT-78601 Level 3 Est. Patient 10:15:07 CDT Pelon Quach MD [facility]-32590 Level 4 Est. Patient 09:30:54 CDT Pelon Quach MD [facility] CPT-58224 Level 4 Est. Patient 14:34:25 CDT Pelon Quach MD [facility]-80178 Level 3 Est. Patient 11:51:35 COSMETOLOGIST Rick Henson DO [facility] CPT-00543 Level 3 Est. Patient 12:13:33 COSMETOLOGIST Erik Baptiste MD [facility]-70237 Level 3 Est. Patient 09:40:44 COSMETOLOGIST Jaycee Torrez [facility] CPT-75680 Level 3 Est. Patient 09:36:32 COSMETOLOGIST Jaycee Torrez [facility] CPT-13737 Level 4 Est. Patient 16:57:02 COSMETOLOGIST Pelon Quach MD [facility] CPT-23956 Level 4 Est. Patient 22:19:34 CDT Pelon Quach MD [facility] CPT-73312 Level 3 Est. Patient 00:34:41 CDT Pelon Quach MD [facility] CPT-26914 Level 4 Est. Patient 11:19:14 CDT Pelon Quach MD [facility] CPT-15033 Level 4 Est. Patient 16:43:30 COSMETOLOGIST Pelon Quach MD [facility] CPT-12466 Level 4 Est. Patient 12:42:18 CDT Pelon Quach MD [facility] CPT-66493 Level 4 Est. Patient 11:52:20 CDT Pelon Quach MD [facility] CPT-75300 Level 4 Est. Patient 13:59:46 CDT Pelon Quach MD [facility] CPT-52849 Level 4 Est. Patient 15:10:48 CDT Pelon Quach MD [facility] CPT-29941 Level 4 Est. Patient 17:13:06 CDT Pelon Quach MD [facility] CPT-48092 Level 4 Est. Patient 18:47:47 CDT Pelon Quach MD [facility] CPT-17050 Level 3 Est. Patient 21:01:27 CDT Pelon Quach MD [facility] CPT-99459 Level 3 Est. Patient 14:07:03 CDT Taty Alvarado MD PhD [facility] CPT-87789 Level 3 New Patient 21:39:52 COSMETOLOGIST Pelon Quach MD [facility] CPT-62830 Level 3 Est. Patient 14:28:44 CDT Glenn Thornton MD [facility] CPT-98365 Level 3 Est. Patient 16:35:00 CDT Glenn Thornton MD [facility] CPT-87166 Level 4 New Patient 17:06:27 CDT Glenn Thornton MD [facility] [place] Procedures Code Procedure Name Date Entry Date Standard Description CPT-G0439 Subsequent Annual Wellness Exam 18:11:17 CDT CPT-G0438 Initial Annual Wellness Exam 09:30:54 CDT CPT-42420 Prevnar 13 Intramuscular Suspension 14:34:25 CDT 12/27 CPT-84599 Chest 2V Frontal and Lat - XRAY USE ONLY 11:56:13 COSMETOLOGIST CPT-32848 Cystoscopy 14:28:44 CDT CPT-23318 Bladder Scan 14:28:44 CDT CPT-84994 Indwelling Cath Change 17:06:27 CDT CPT-13158 Cystoscopy 17:06:27 CDT
--- OUTSIDE RECORDS SUMMARY | 2018-06-22 11:58 | XMS REPORT | Clinical Summary ---
Author Author Admin, ONESIMO Organization [facility] Address Unknown Phone Unavailable Allergies, Adverse Reactions, [...] of urine, unspecified NEUROGENIC BLADDER 596.54 Active Glnen Thornton MD Neurogenic bladder NOS HYPERLIPIDEMIA 272.4 [...] TABS 1 twice a day SULFAMETHOXAZOLE- TRIMETHOPRIM 23503618945 Active Erik Baptiste MD Active IPRATROPIUM-ALBUTEROL 0.5-2.5 (3) MG/3ML INH SOLN 1 neb treatment QID for cough Dx: J06.9 IPRATROPIUM-ALBUTEROL 06001631361 Active Jaycee Garcia APRN Active IPRATROPIUM-ALBUTEROL 0.5-2.5 (3) MG/3ML SOLN 1 neb treatment four times daily , for cough IPRATROPIUM-ALBUTEROL 90103867535 No Longer Active Jaycee Garcia APRN Active TYLENOL 8 HOUR 650 MG ORAL CR-TABS Take 1 tab po up to 3 times daily as needed ACETAMINOPHEN 86831140618 Active Jaycee Jose CHEMISTRY TUTOR Active FUROSEMIDE 40 MG TABS Take one by mouth daily FUROSEMIDE 62442420992 No Longer Active Jaycee Garcia VICTORINO Active LANTUS 100 UNIT/ML SC SOLN 20 SUBQ AT HS INSULIN GLARGINE 46759881979 Active Jaycee Jose CHEMISTRY TUTOR Active LAMICTAL 25 MG ORAL TABS 2 tabs po BID for convulsions LAMOTRIGINE 38723249880 Active Jaycee Garcia VICTORINO Active INVEGA 6 MG ORAL [id number] 1 po daily for Schizophrenia PALIPERIDONE 58825121601 Active Jaycee Garcia VICTORINO Active LASIX 20 MG TAB 1 tablet by mouth every morning for edema FUROSEMIDE 33698947540 Active Jayceehugo Garcia APRN Active BUSPIRONE HCL 10 MG TABS 1 tab by mouth BID BUSPIRONE HCL 90249273385 Active Jaycee Garcia VICTORINO Active NOVOLOG 100 UNIT/ML SC SOLN 10 UNITS BEFORE SUPPER INSULIN ASPART 65456952237 Active Jaycee Garcia VICTORINO Active NOVOLOG 100 UNIT/ML SC SOLN 10 UNITS BID BEFORE BREAKFAST AND LUNCH INSULIN ASPART 20565579421 Active Jaycee Garcia VICTORINO Active LAMICTAL 25 MG TABS 2 tabs by mouth twice a day LAMOTRIGINE 48278438592 Active Pelon Quach MD Active ADULT ASPIRIN EC LOW STRENGTH 81 MG TBEC Take one by mouth daily ASPIRIN 51120594835 No Longer Active Pelon Quach MD Active ASPIRIN 81 MG ORAL TABS 1 po qd ASPIRIN 63712125553 Active Pelon Quach MD Active ZOFRAN 4 MG TABS 1 po q6hr PRN Nausea ONDANSETRON HCL 07788493142 No Longer Active Pelon Quach MD Active TYLENOL 325 MG TAB 1-2 pills by mouth every 6 hours if needed for pain/fever ACETAMINOPHEN 08311093703 No Longer Active Pelon Quach MD Active INVEGA 6 MG ORAL [id number] 1 TAB ONCE DAILY PALIPERIDONE 42184017746 No Longer Active Carly Suggs Active TEGRETOL 200 MG TABS by mouth twice a day CARBAMAZEPINE 53759308610 Active Taty Alvarado MD PhD Active FLOMAX 0.4 MG CAPS 1 Daily TAMSULOSIN HCL 03713465842 Active Marianelachandrika Juarez Active DILANTIN 100 MG CAPS Take one by mouth daily PHENYTOIN SODIUM EXTENDED 11779565506 No Longer Active Marianelachandrika Juarez Active DEPAKOTE SPRINKLES 125 MG CPSP 4 capsules by mouth twice daily DIVALPROEX SODIUM 55176786055 No Longer Active Marianelachandrika Juarez Active LAMICTAL 200 MG ORAL TABS 1 BY MOUTH TWICE A DAY LAMOTRIGINE 20687704919 Active Marianelachandrika Juarez Active LAMICTAL 100 MG TABS by mouth twice a day LAMOTRIGINE 29226130758 No Longer Active Marianelachandrika Juarez Active LAMICTAL 150 MG TABS by mouth twice a day LAMOTRIGINE 50228820007 No Longer Active Marianelachandrika Juarez Active DILANTIN 100 MG CAPS Take three by mouth daily PHENYTOIN SODIUM EXTENDED 35559137783 No Longer Active Marianela Juarez Active SENOKOT 8.6 MG TABS take at bedtime SENNOSIDES 86962900215 Active Glenn Thornton MD Active LIPITOR 20 MG TABS take at bedtime ATORVASTATIN CALCIUM 95276737404 Active Glenn Thornton MD Active LISINOPRIL 2.5 MG TABS Take one by mouth daily LISINOPRIL 94832708534 Active Glenn Thornton MD Active TRENTAL 400 MG CR-TABS by mouth twice a day PENTOXIFYLLINE 49663503820 Active Glenn Thornton MD Active KLOR-CON 10 10 MEQ CR-TABS Take one by mouth daily POTASSIUM CHLORIDE 51403645876 Active Glenn Thornton MD Active DILANTIN 100 MG CAPS Take three by mouth daily DILANTIN 100 MG CAPS 341806 PHENYTOIN SODIUM EXTENDED Inactive LAMICTAL 150 MG TABS by mouth twice a day LAMICTAL 150 MG TABS 19831025 LAMOTRIGINE Inactive LAMICTAL 100 MG TABS by mouth twice a day LAMICTAL 100 MG TABS 19831024 LAMOTRIGINE Inactive DEPAKOTE SPRINKLES 125 MG CPSP 4 capsules by mouth twice daily DEPAKOTE SPRINKLES 125 MG CPSP 2945885 DIVALPROEX SODIUM Inactive DILANTIN 100 MG CAPS Take one by mouth daily DILANTIN 100 MG CAPS 275946 PHENYTOIN SODIUM EXTENDED Inactive INVEGA 6 MG ORAL [id number] 1 TAB ONCE DAILY INVEGA 6 MG ORAL [id number] PALIPERIDONE Inactive TYLENOL 325 MG TAB 1-2 pills by mouth every 6 hours if needed for pain/fever TYLENOL 325 MG TAB 206750 ACETAMINOPHEN Inactive ZOFRAN 4 MG TABS 1 po q6hr PRN Nausea ZOFRAN 4 MG TABS 480701 ONDANSETRON HCL Inactive ADULT ASPIRIN EC LOW STRENGTH 81 MG TBEC Take one by mouth daily ADULT ASPIRIN EC LOW STRENGTH 81 MG TBEC 983197 ASPIRIN Inactive FUROSEMIDE 40 MG TABS Take one by mouth daily FUROSEMIDE 40 MG TABS 919866 FUROSEMIDE Inactive IPRATROPIUM-ALBUTEROL 0.5-2.5 (3) MG/3ML SOLN 1 neb treatment four times daily , for cough IPRATROPIUM-ALBUTEROL 0.5-2.5 (3) MG/3ML SOLN 8038453 IPRATROPIUM-ALBUTEROL Inactive Advance Directives Directive Description Start Date DURABLE POWER OF CRAP SHOOTER FOR HEALTHCARE PERMISSION TO SHARE ADVANCED DIRECTIVE [...] mg/dL Encounters Code Encounter Date Provider Facility CPT-72801 Level 3 Est. Patient 11:51:35 STATISTICAL ASSISTANT Rick Henson DO [facility] CPT-33068 Level 3 Est. Patient 12:13:33 STATISTICAL ASSISTANT Erik Baptiste MD [facility] CPT-94784 Level 3 Est. Patient 09:40:44 STATISTICAL ASSISTANT Jaycee Garcia [facility] CPT-78600 Level 3 Est. Patient 09:36:32 STATISTICAL ASSISTANT Jaycee Garcia [facility] CPT-35455 Level 4 Est. Patient 16:57:02 STATISTICAL ASSISTANT Pelon Quach MD [facility] CPT-05907 Level 4 Est. Patient 22:19:34 CDT Pelon Quach MD [facility] CPT-81983 Level 3 Est. Patient 00:34:41 CDT Pelon Quach MD [facility] CPT-78571 Level 4 Est. Patient 11:19:14 CDT Pelon Quach MD [facility] CPT-96524 Level 4 Est. Patient 16:43:30 STATISTICAL ASSISTANT Pelon Quach MD [facility] CPT-70191 Level 4 Est. Patient 12:42:18 CDT Pelon Quach MD [facility] CPT-07137 Level 4 Est. Patient 11:52:20 CDT Pelon Quach MD [facility] CPT-96525 Level 4 Est. Patient 13:59:46 CDT Pelon Quach MD [facility] CPT-55123 Level 4 Est. Patient 15:10:48 CDT Pelon Quach MD [facility] CPT-04171 Level 4 Est. Patient 17:13:06 CDT Pelon Quach MD [facility] CPT-07701 Level 4 Est. Patient 18:47:47 CDT Pelon Quach MD [facility] CPT-46196 Level 3 Est. Patient 21:01:27 CDT Pelon Quach MD [facility] CPT-08246 Level 3 Est. Patient 14:07:03 CDT Taty Alvarado MD PhD [facility] CPT-93924 Level 3 New Patient 21:39:52 STATISTICAL ASSISTANT Pelon Quach MD [facility] CPT-55195 Level 3 Est. Patient 14:28:44 CDT Glenn Thornton MD [facility] CPT-11809 Level 3 Est. Patient 16:35:00 CDT Glenn Thornton MD [facility] CPT-31096 Level 4 New Patient 17:06:27 CDT Glenn Thornton MD [facility] [place] Procedures Code Procedure Name Date Entry Date Standard Description CPT-42041 Chest 2V Frontal and Lat - XRAY USE ONLY 11:56:13 STATISTICAL ASSISTANT CPT-86495 Cystoscopy 14:28:44 CDT CPT-77572 Bladder Scan 14:28:44 CDT CPT-41099 Indwelling Cath Change 17:06:27 CDT CPT-69810 Cystoscopy 17:06:27 CDT
--- OUTSIDE RECORDS SUMMARY | 2018-06-22 11:58 | XMS REPORT | Clinical Summary ---
Author Author Admin, ONESIMO Organization [facility] [employer] [place] Address Unknown Phone Unavailable Allergies, Adverse Reactions, [...] HOUR 1 po daily for schizophrenia PALIPERIDONE 98144917586 Active Pelon Quach MD Active LAMICTAL 25 MG TABS 2 tabs by mouth twice a day LAMOTRIGINE 96760666949 No Longer Active Pelon Quach MD Active BACTROBAN 2 % OINTMENT Apply to affected area BID MUPIROCIN 77555207774 No Longer Active Pelon Quach MD Active BANOPHEN 25 MG ORAL TABS 1 po every 6 hours PRN allergic reaction DIPHENHYDRAMINE HCL 28528227351 Active NICOLETTE Hitchcock Active INVEGA 6 MG ORAL [id number] 1 po daily for Schizophrenia PALIPERIDONE 73752050547 No Longer Active Pelon Quach MD Active TYLENOL 8 HOUR 650 MG ORAL CR-TABS Take 1 tab po up to 3 times daily as needed ACETAMINOPHEN 98164177119 No Longer Active Pelon Quach MD Active IPRATROPIUM-ALBUTEROL 0.5-2.5 (3) MG/3ML INH SOLN 1 neb treatment QID for cough Dx: J06.9 IPRATROPIUM-ALBUTEROL 74791358227 No Longer Active Pelon Quach MD Active BACTRIM DS 800-160 MG TAB 1 tab by mouth twice daily TRIMETHOPRIM-SULFAMETHOXAZOLE 81095865822 No Longer Active Pelon Quach MD Active BACTRIM DS 800-160 MG TABS 1 twice a day SULFAMETHOXAZOLE-TRIMETHOPRIM 23296791497 No Longer Active Pelon Quach MD Active IPRATROPIUM-ALBUTEROL 0.5-2.5 (3) MG/3ML SOLN 1 neb treatment four times daily , for cough IPRATROPIUM-ALBUTEROL 17856036460 No Longer Active Jaycee Garcia APRN Active FUROSEMIDE 40 MG TABS Take one by mouth daily FUROSEMIDE 69589102004 No Longer Active Jaycee Garcia APRN Active LANTUS 100 UNIT/ML SC SOLN 20 SUBQ AT HS INSULIN GLARGINE 58782925893 Active Jaycee Garcia APRN Active LAMICTAL 25 MG ORAL TABS 2 tabs po BID for convulsions LAMOTRIGINE 34054282948 Active Jaycee Garcia APRN Active LASIX 20 MG TAB 1 tablet by mouth every morning for edema FUROSEMIDE 41663553352 Active Jaycee Garcia APRN Active BUSPIRONE HCL 10 MG TABS 1 tab by mouth BID BUSPIRONE HCL 03823128083 Active Jaycee Garcia APRN Active NOVOLOG 100 UNIT/ML SC SOLN 10 UNITS BEFORE SUPPER INSULIN ASPART 96286563399 Active Jaycee Garcia APRN Active NOVOLOG 100 UNIT/ML SC SOLN 10 UNITS BID BEFORE BREAKFAST AND LUNCH INSULIN ASPART 29203875467 Active Jaycee Garcia APRN Active ADULT ASPIRIN EC LOW STRENGTH 81 MG TBEC Take one by mouth daily ASPIRIN 20161998758 No Longer Active Pelon Quach MD Active ASPIRIN 81 MG ORAL TABS 1 po qd ASPIRIN 91734826718 Active Pelon Quach MD Active ZOFRAN 4 MG TABS 1 po q6hr PRN Nausea ONDANSETRON HCL 98947330152 No Longer Active Pelon Quach MD Active TYLENOL 325 MG TAB 1-2 pills by mouth every 6 hours if needed for pain/fever ACETAMINOPHEN 18740626262 No Longer Active Pelon Quahc MD Active INVEGA 6 MG ORAL [id number] 1 TAB ONCE DAILY PALIPERIDONE 44520025896 No Longer Active Carly Suggs Active TEGRETOL 200 MG TABS by mouth twice a day CARBAMAZEPINE 37273688470 Active Taty Alvarado MD PhD Active FLOMAX 0.4 MG CAPS 1 Daily TAMSULOSIN HCL 77779602998 Active Marianela Juarez Active DILANTIN 100 MG CAPS Take one by mouth daily PHENYTOIN SODIUM EXTENDED 23638260336 No Longer Active Marianela Juarez Active DEPAKOTE SPRINKLES 125 MG CPSP 4 capsules by mouth twice daily DIVALPROEX SODIUM 58914434364 No Longer Active Marianelachandrika Juarez Active LAMICTAL 200 MG ORAL TABS 1 BY MOUTH TWICE A DAY LAMOTRIGINE 01959238258 Active Marianela Juarez Active LAMICTAL 100 MG TABS by mouth twice a day LAMOTRIGINE 87845974227 No Longer Active Marianela Juarez Active LAMICTAL 150 MG TABS by mouth twice a day LAMOTRIGINE 66182532628 No Longer Active Marianela Juarez Active DILANTIN 100 MG CAPS Take three by mouth daily PHENYTOIN SODIUM EXTENDED 50432322803 No Longer Active Marianela Juarez Active SENOKOT 8.6 MG TABS take at bedtime SENNOSIDES 13012329992 Active Glenn Thornton MD Active LIPITOR 20 MG TABS take at bedtime ATORVASTATIN CALCIUM 95528774630 Active Glenn Thornton MD Active LISINOPRIL 2.5 MG TABS Take one by mouth daily LISINOPRIL 33679478245 Active Glenn Thornton MD Active TRENTAL 400 MG CR-TABS by mouth twice a day PENTOXIFYLLINE 36684570354 Active Glenn Thornton MD Active KLOR-CON 10 10 MEQ CR-TABS Take one by mouth daily POTASSIUM CHLORIDE 25331520168 Active Glenn Thornton MD Active DILANTIN 100 MG CAPS Take three by mouth daily DILANTIN 100 MG CAPS 355418 PHENYTOIN SODIUM EXTENDED Inactive LAMICTAL 150 MG TABS by mouth twice a day LAMICTAL 150 MG TABS 801526 LAMOTRIGINE Inactive LAMICTAL 100 MG TABS by mouth twice a day LAMICTAL 100 MG TABS 518917 LAMOTRIGINE Inactive DEPAKOTE SPRINKLES 125 MG CPSP 4 capsules by mouth twice daily DEPAKOTE SPRINKLES 125 MG CPSP 3680887 DIVALPROEX SODIUM Inactive DILANTIN 100 MG CAPS Take one by mouth daily DILANTIN 100 MG CAPS 028764 PHENYTOIN SODIUM EXTENDED Inactive INVEGA 6 MG ORAL [id number] 1 TAB ONCE DAILY INVEGA 6 MG ORAL [id number] PALIPERIDONE Inactive TYLENOL 325 MG TAB 1-2 pills by mouth every 6 hours if needed for pain/fever TYLENOL 325 MG TAB 050474 ACETAMINOPHEN Inactive ZOFRAN 4 MG TABS 1 po q6hr PRN Nausea ZOFRAN 4 MG TABS 498984 ONDANSETRON HCL Inactive ADULT ASPIRIN EC LOW STRENGTH 81 MG TBEC Take one by mouth daily ADULT ASPIRIN EC LOW STRENGTH 81 MG TBEC 046619 ASPIRIN Inactive FUROSEMIDE 40 MG TABS Take one by mouth daily FUROSEMIDE 40 MG TABS 929432 FUROSEMIDE Inactive BACTRIM DS 800-160 MG TABS 1 twice a day BACTRIM DS 800-160 MG TABS 577486 SULFAMETHOXAZOLE-TRIMETHOPRIM Inactive IPRATROPIUM-ALBUTEROL 0.5-2.5 (3) MG/3ML INH SOLN 1 neb treatment QID for cough Dx: J06.9 IPRATROPIUM-ALBUTEROL 0.5-2.5 (3) MG/ 3ML INH SOLN 3032181 IPRATROPIUM-ALBUTEROL Inactive TYLENOL 8 HOUR 650 MG ORAL CR-TABS Take 1 tab po up to 3 times daily as needed TYLENOL 8 HOUR 650 MG ORAL CR-TABS ACETAMINOPHEN Inactive INVEGA 6 MG ORAL [id number] 1 po daily for Schizophrenia INVEGA 6 MG ORAL [id number] PALIPERIDONE Inactive BACTROBAN 2 % OINTMENT Apply to affected area BID BACTROBAN 2 % OINTMENT 890960 MUPIROCIN Inactive LAMICTAL 25 MG TABS 2 tabs by mouth twice a day LAMICTAL 25 MG TABS 045657 LAMOTRIGINE Inactive IPRATROPIUM-ALBUTEROL 0.5-2.5 (3) MG/3ML SOLN 1 neb treatment four times daily , for cough IPRATROPIUM-ALBUTEROL 0.5-2.5 (3) MG/3ML SOLN 1133428 IPRATROPIUM-ALBUTEROL Inactive BACTRIM DS 800-160 MG TAB 1 tab by mouth twice daily BACTRIM DS 800-160 MG TAB 785338 TRIMETHOPRIM-SULFAMETHOXAZOLE Inactive Advance Directives Directive Description Start Date DURABLE POWER OF NURSING HOME ADMISSIONS DIRECTOR FOR HEALTHCARE PERMISSION TO SHARE ADVANCED [...] Panel - Chemistry sodium, serum 127 mmol/L 922-099 3454/07/28 potassium, serum 5.3 mmol/L 3.5-5.2 chloride, serum 92 mmol/L 98-107 carbon dioxide, venous blood 32.4 mmol/L 21.0-32.0 blood glucose 182 mg/dL 65-110 calcium, serum 9.4 mg/dL 8.5-10.1 urea nitrogen, blood 14 mg/dL 7-18 creatinine, serum 0.94 mg/dL 0.60-1.30 Lab Report: CBC, Comp. Metabolic Panel - Chemistry sodium, serum 129 mmol/L 231-288 4028/07/12 carbon dioxide, venous blood 27.8 mmol/L 21.0-32.0 [...] mg/dL Encounters Code Encounter Date Provider Facility CPT-99708 Level 4 Est. Patient 14:46:38 CDT Pelon Quach MD [facility] CPT-37426 Level 4 Est. Patient 08:43:11 CDT Pelon Quach MD [facility] CPT-69921 Level 4 Est. Patient 14:27:30 CDT Pelon Quach MD [facility] CPT-08849 Level 3 Est. Patient 10:32:17 CDT Jaycee Garcia [facility] CPT-28513 Level 3 Est. Patient 10:15:07 CDT Pelon Quach MD [facility] CPT-14041 Level 4 Est. Patient 09:30:54 CDT Pelon Quach MD [facility] CPT-12908 Level 4 Est. Patient 14:34:25 CDT Pelon Quach MD [facility] CPT-55887 Level 3 Est. Patient 11:51:35 MARINE DESIGN ENGINEER Rick Henson DO [facility] CPT-88378 Level 3 Est. Patient 12:13:33 MARINE DESIGN ENGINEER Erik Baptiste MD [facility] CPT-08532 Level 3 Est. Patient 09:40:44 MARINE DESIGN ENGINEER Jaycee Garcia [facility] CPT-96693 Level 3 Est. Patient 09:36:32 MARINE DESIGN ENGINEER Jaycee Garcia [facility] CPT-74513 Level 4 Est. Patient 16:57:02 MARINE DESIGN ENGINEER Pelon Quach MD [facility] CPT-49658 Level 4 Est. Patient 22:19:34 CDT Pelno Quach MD [facility]-54419 Level 3 Est. Patient 00:34:41 CDT Pelon Quach MD [facility]-94981 Level 4 Est. Patient 11:19:14 CDT Pelon Quach MD [facility]-00008 Level 4 Est. Patient 16:43:30 MARINE DESIGN ENGINEER Pelon Quach MD [facility]-77780 Level 4 Est. Patient 12:42:18 CDT Pelon Quach MD [facility]-80643 Level 4 Est. Patient 11:52:20 CDT Pelon Quach MD [facility]-10609 Level 4 Est. Patient 13:59:46 CDT Pelon Quach MD [facility]-89862 Level 4 Est. Patient 15:10:48 CDT Pelon Quach MD [facility]-64920 Level 4 Est. Patient 17:13:06 CDT Pelon Quach MD [facility]-15915 Level 4 Est. Patient 18:47:47 CDT Pelon Quach MD [facility]-20930 Level 3 Est. Patient 21:01:27 CDT Pelon Quach MD [facility]-25628 Level 3 Est. Patient 14:07:03 CDT Taty Alvarado MD PhD [facility] CPT-14060 Level 3 New Patient 21:39:52 MARINE DESIGN ENGINEER Pelon Quach MD [facility]-01632 Level 3 Est. Patient 14:28:44 CDT Glenn Thornton MD [facility]-16700 Level 3 Est. Patient 16:35:00 CDT Glenn Thornton [facility] CPT-39561 Level 4 New Patient 17:06:27 CDT Glenn Thornton MD [facility] Procedures Code Procedure Name Date Entry Date Standard Description CPT-G0438 Initial Annual Wellness Exam 09:30:54 CDT CPT-88726 Prevnar 13 Intramuscular Suspension 14:34:25 CDT 12/27 CPT-29295 Chest 2V Frontal and Lat - XRAY USE ONLY 11:56:13 MARINE DESIGN ENGINEER CPT-10226 Cystoscopy 14:28:44 CDT CPT-16480 Bladder Scan 14:28:44 CDT CPT-04655 Indwelling Cath Change 17:06:27 CDT CPT-28594 Cystoscopy 17:06:27 CDT
[2018-06-22] MEDS ORDERED: proPOfol 200 MG/20 ML (DIPRIVAN) VIAL IV ONE (11:59)
[2018-06-22] MEDS ORDERED: ONDANSETRON 4 MG/2 ML (SDV) Z0FRAN ONE (11:59)
[2018-06-22] MEDS ORDERED: DEXAMETHASONE 10 MG/ML (DECADRON) 1 ML VIAL ONE (11:59)
[2018-06-22] MEDS ORDERED: SEVOFLURANE (ULTANE) 15 ML INHAL SOLN ONE ×4 (11:59→13:12)
[2018-06-22] MEDS ORDERED: LIDOCAINE PF 2% 2 ML (XYLOCAINE) VIAL ONE (11:59)
[2018-06-22] MEDS ORDERED: SUCCINYLCHOLINE INJ 100 MG/5 ML SYR ONE (11:59)
--- OUTSIDE RECORDS SUMMARY | 2018-06-22 11:59 | XMS REPORT | Clinical Summary ---
Author Author Admin, ONESIMO Organization [facility] [place] Address Unknown Phone Unavailable Allergies, Adverse Reactions, [...] as needed for muscle spasm/pain CYCLOBENZAPRINE HCL 97725929776 Active Pelon Quach MD Active BENADRYL 25 MG ORAL CAPSULE 1 po q8hr PRN Congestion DIPHENHYDRAMINE HCL 43860641395 Active Pelon Quach MD Active ZOFRAN 4 MG ORAL TABLET 1 po q6hr PRN Nausea ONDANSETRON HCL 86462271480 Active Pelon Quach MD Active IMODIUM A-D 2 MG ORAL TABLET One QID prn diarrhea. No more than 4 tabs daily LOPERAMIDE HCL 36673791110 Active Pelon Quach MD Active TYLENOL 325 MG ORAL TABLET 2 tabs po prn for pain elevated temp ACETAMINOPHEN 39725171150 Active Pelon Quach MD Active MUCINEX D 60-600 MG ORAL TABLET EXTENDED RELEASE 12 HOUR 1 po BID PRN Congestion PSEUDOEPHEDRINE-GUAIFENESIN 38657260580 Active Pelon Quach MD Active IBUPROFEN 200 MG ORAL TABLET q 6hrs prn pain IBUPROFEN 62208702495 Active Pelon Quach MD Active LORATADINE 10 MG ORAL TABLET 1 tablet by mouth daily prn LORATADINE 32243331506 Active Pelon Quach MD Active BANOPHEN 25 MG ORAL TABLET 1 po every 6 hours PRN allergic reaction DIPHENHYDRAMINE HCL 71373616163 No Longer Active Pelon Quach MD Active EASY TOUCH ALCOHOL PREP MEDIUM 70 % PAD Use with each finger stick and insulin admin Dx: E11.9 ALCOHOL SWABS 96107897471 Active Jaycee Torrez APRN Active HUMALOG KWIKPEN 100 UNIT/ML SUBCUTANEOUS SOLUTION PEN-INJECTOR inject 10 units subcutaneously before meals also sliding scale INSULIN LISPRO 12115135111 Active Pelon Quach MD Active NOVOLOG 100 UNIT/ML SUBCUTANEOUS SOLUTION 10 UNITS BID BEFORE BREAKFAST AND LUNCH INSULIN ASPART 32318158202 No Longer Active NICOLETTE Hitchcock Active NOVOLOG 100 UNIT/ML SUBCUTANEOUS SOLUTION 10 UNITS BEFORE SUPPER INSULIN ASPART 32694187307 No Longer Active NICOLETTE Hitchcock Active INVEGA 6 MG ORAL TABLET EXTENDED RELEASE 24 HOUR 1 po daily for schizophrenia PALIPERIDONE 99499371607 Active Pelon Quahc MD Active LAMICTAL 25 MG ORAL TABLET 2 tabs by mouth twice a day LAMOTRIGINE 18998823920 No Longer Active Pelon Quach MD Active BACTROBAN 2 % EXTERNAL OINTMENT Apply to affected area BID 06/28 MUPIROCIN 75607774569 No Longer Active Pelon Quach MD Active INVEGA 6 MG ORAL TABLET EXTENDED RELEASE 24 HOUR 1 po daily for Schizophrenia PALIPERIDONE 34141783209 No Longer Active Pelon Quach MD Active TYLENOL 8 HOUR 650 MG ORAL TABLET EXTENDED RELEASE Take 1 tab po up to 3 times daily as needed ACETAMINOPHEN 75380789010 No Longer Active Pelon Quach MD Active IPRATROPIUM-ALBUTEROL 0.5-2.5 (3) MG/3ML INHALATION SOLUTION 1 neb treatment QID for cough Dx: J06.9 IPRATROPIUM-ALBUTEROL 96221394515 No Longer Active Pelon Quach MD Active BACTRIM DS 800-160 MG ORAL TABLET 1 tab by mouth twice daily 2016 TRIMETHOPRIM-SULFAMETHOXAZOLE 32800511204 No Longer Active Pelon Quach MD Active BACTRIM DS 800-160 MG ORAL TABLET 1 twice a day SULFAMETHOXAZOLE-TRIMETHOPRIM 63169219896 No Longer Active Pelon Quach MD Active IPRATROPIUM-ALBUTEROL 0.5-2.5 (3) MG/3ML INHALATION SOLUTION 1 neb treatment four times daily, for cough IPRATROPIUM-ALBUTEROL 19311444501 No Longer Active Jaycee Torrez APRN Active FUROSEMIDE 40 MG ORAL TABLET Take one by mouth daily FUROSEMIDE 08274691338 No Longer Active Jaycee Torrez APRN Active LANTUS 100 UNIT/ML SUBCUTANEOUS SOLUTION 20 SUBQ AT HS INSULIN GLARGINE 24612763375 Active Pelon Quach MD Active LAMICTAL 25 MG ORAL TABLET 2 tabs po BID for convulsions LAMOTRIGINE 13950082167 Active Jaycee Torrez APRN Active LASIX 20 MG ORAL TABLET 1 tablet by mouth every morning for edema FUROSEMIDE 75374414261 Active Jaycee Torrez APRN Active BUSPIRONE HCL 10 MG ORAL TABLET 1 tab by mouth BID BUSPIRONE HCL 77993191228 Active Jaycee Torrez APRN Active ADULT ASPIRIN EC LOW STRENGTH 81 MG ORAL TABLET DELAYED RELEASE Take one by mouth daily ASPIRIN 55259351653 No Longer Active Pelon Quach MD Active ASPIRIN 81 MG ORAL TABLET 1 po qd ASPIRIN 37217850694 Active Pelon Quach MD Active ZOFRAN 4 MG ORAL TABLET 1 po q6hr PRN Nausea ONDANSETRON HCL 46598281707 No Longer Active Pelon Quach MD Active TYLENOL 325 MG ORAL TABLET 1-2 pills by mouth every 6 hours if needed for pain /fever ACETAMINOPHEN 15893602163 No Longer Active Pelon Quach MD Active INVEGA 6 MG ORAL TABLET EXTENDED RELEASE 24 HOUR 1 TAB ONCE DAILY PALIPERIDONE 93560803438 No Longer Active Carly Suggs Active TEGRETOL 200 MG ORAL TABLET by mouth twice a day CARBAMAZEPINE 44102393267 Active Taty Alvarado MD PhD Active FLOMAX 0.4 MG ORAL CAPSULE 1 Daily TAMSULOSIN HCL 17724880554 Active Marianela Juarez Active DILANTIN 100 MG ORAL CAPSULE Take one by mouth daily PHENYTOIN SODIUM EXTENDED 19388720518 No Longer Active Marianela Juarez Active DEPAKOTE SPRINKLES 125 MG ORAL CAPSULE DELAYED RELEASE SPRINKLE 4 capsules by mouth twice daily DIVALPROEX SODIUM 29700496845 No Longer Active Marianelachandrika Juarez Active LAMICTAL 200 MG ORAL TABLET 1 BY MOUTH TWICE A DAY LAMOTRIGINE 91040907103 Active Marianela Raida Active LAMICTAL 100 MG ORAL TABLET by mouth twice a day LAMOTRIGINE 34119942293 No Longer Active Marianela Raida Active LAMICTAL 150 MG ORAL TABLET by mouth twice a day LAMOTRIGINE 92053974887 No Longer Active Marianelachandrika Juarez Active DILANTIN 100 MG ORAL CAPSULE Take three by mouth daily PHENYTOIN SODIUM EXTENDED 11229980185 No Longer Active Marianela Juarez Active SENOKOT 8.6 MG ORAL TABLET [facility] Active Pelon Quach MD Active LIPITOR 20 MG ORAL TABLET take at bedtime ATORVASTATIN CALCIUM 48336694323 Active Glenn Thornton MD Active LISINOPRIL 2.5 MG ORAL TABLET Take one by mouth daily LISINOPRIL 88249549745 Active Glenn Thornton MD Active TRENTAL 400 MG CR-TABS by mouth twice a day PENTOXIFYLLINE 37594667276 Active Glenn Thornton MD Active KLOR-CON 10 10 MEQ ORAL TABLET EXTENDED RELEASE Take one by mouth daily POTASSIUM CHLORIDE 17436083407 Active Glenn Thornton MD Active DILANTIN 100 MG ORAL CAPSULE Take three by mouth daily DILANTIN 100 MG ORAL CAPSULE 421518 PHENYTOIN SODIUM EXTENDED Inactive LAMICTAL 150 MG ORAL TABLET by mouth twice a day LAMICTAL 150 MG ORAL TABLET 594972 LAMOTRIGINE Inactive LAMICTAL 100 MG ORAL TABLET by mouth twice a day LAMICTAL 100 MG ORAL TABLET 397175 LAMOTRIGINE Inactive DEPAKOTE SPRINKLES 125 MG ORAL CAPSULE DELAYED RELEASE SPRINKLE 4 capsules by mouth twice daily DEPAKOTE SPRINKLES 125 MG ORAL CAPSULE DELAYED RELEASE SPRINKLE 0211959 DIVALPROEX SODIUM Inactive DILANTIN 100 MG ORAL CAPSULE Take one by mouth daily DILANTIN 100 MG ORAL CAPSULE 882274 PHENYTOIN SODIUM EXTENDED Inactive INVEGA 6 MG ORAL TABLET EXTENDED RELEASE 24 HOUR 1 TAB ONCE DAILY INVEGA 6 MG ORAL TABLET EXTENDED RELEASE 24 HOUR PALIPERIDONE Inactive TYLENOL 325 MG ORAL TABLET 1-2 pills by mouth every 6 hours if needed for pain /fever TYLENOL 325 MG ORAL TABLET 711137 ACETAMINOPHEN Inactive ZOFRAN 4 MG ORAL TABLET 1 po q6hr PRN Nausea ZOFRAN 4 MG ORAL TABLET 313433 ONDANSETRON HCL Inactive ADULT ASPIRIN EC LOW STRENGTH 81 MG ORAL TABLET DELAYED RELEASE Take one by mouth daily ADULT ASPIRIN EC LOW STRENGTH 81 MG ORAL TABLET DELAYED RELEASE 101614 ASPIRIN Inactive FUROSEMIDE 40 MG ORAL TABLET Take one by mouth daily FUROSEMIDE 40 MG ORAL TABLET 087638 FUROSEMIDE Inactive BACTRIM DS 800-160 MG ORAL TABLET 1 twice a day BACTRIM DS 800-160 MG ORAL TABLET 19821119 SULFAMETHOXAZOLE-TRIMETHOPRIM Inactive IPRATROPIUM-ALBUTEROL 0.5-2.5 (3) MG/3ML INHALATION SOLUTION 1 neb treatment QID for cough Dx: J06.9 IPRATROPIUM-ALBUTEROL 0.5-2.5 ( 3) MG/3ML INHALATION SOLUTION 0446900 IPRATROPIUM-ALBUTEROL Inactive TYLENOL 8 HOUR 650 MG [...] a day LAMICTAL 25 MG ORAL TABLET 563602 LAMOTRIGINE Inactive NOVOLOG 100 UNIT/ML SUBCUTANEOUS SOLUTION 10 UNITS BEFORE SUPPER NOVOLOG 100 UNIT/ML SUBCUTANEOUS SOLUTION INSULIN ASPART Inactive NOVOLOG 100 UNIT/ML SUBCUTANEOUS SOLUTION 10 UNITS BID BEFORE BREAKFAST AND LUNCH NOVOLOG 100 UNIT/ML SUBCUTANEOUS SOLUTION INSULIN ASPART Inactive BANOPHEN 25 MG ORAL TABLET 1 po every 6 hours PRN allergic reaction BANOPHEN 25 MG ORAL TABLET 1958471 DIPHENHYDRAMINE HCL Inactive IPRATROPIUM-ALBUTEROL 0.5-2.5 (3) MG/3ML INHALATION SOLUTION 1 neb treatment four times daily, for cough IPRATROPIUM-ALBUTEROL 0.5- 2.5 (3) MG/3ML INHALATION SOLUTION 6125145 IPRATROPIUM-ALBUTEROL Inactive BACTRIM DS 800-160 MG ORAL TABLET 1 tab by mouth twice daily 2016 BACTRIM DS 800-160 MG ORAL TABLET 19821119 TRIMETHOPRIM- SULFAMETHOXAZOLE Inactive Advance Directives Directive Description Start Date DURABLE POWER OF ELECTRICAL FITTER FOR HEALTHCARE PERMISSION TO SHARE ADVANCED DIRECTIVE [...] Panel - Chemistry sodium, serum 127 mmol/L 882-691 2364/07/28 potassium, serum 5.3 mmol/L 3.5-5.2 chloride, serum 92 mmol/L 98-107 carbon dioxide, venous blood 32.4 mmol/L 21.0-32.0 blood glucose 182 mg/dL 65-110 calcium, serum 9.4 mg/dL 8.5-10.1 urea nitrogen, blood 14 mg/dL 7-18 creatinine, serum 0.94 mg/dL 0.60-1.30 Lab Report: CBC, Comp. Metabolic Panel - Chemistry sodium, serum 129 mmol/L 230-006 2360/07/12 carbon dioxide, venous blood 27.8 mmol/L 21.0-32.0 [...] HGBA1C - Chemistry sodium, serum 123 mmol/L 801-848 9851/04/25 carbon dioxide, venous blood 26.2 mmol/L 21.0-32.0 [...] mg/dL Encounters Code Encounter Date Provider Facility CPT-29776 [id number] Vst-Est Level II 13:40:42 CDT Pelon Quach MD [facility] CPT-52809 [id number] Vst-Est Level III 13:36:24 CDT Pelon Quach MD [facility] CPT-58653 Level 4 Est. Patient 18:11:18 CDT Pelon Quach MD [facility] CPT-17656 Level 4 Est. Patient 14:46:38 CDT Pelon Quach MD [facility] CPT-65454 Level 4 Est. Patient 08:43:11 CDT Pelon Quach MD [facility] CPT-09565 Level 4 Est. Patient 14:27:30 CDT Pelon Quach MD [facility] CPT-78245 Level 3 Est. Patient 10:32:17 CDT Jaycee Torrez APRN [facility] CPT-41764 Level 3 Est. Patient 10:15:07 CDT Pelon Quach MD [facility] CPT-41602 Level 4 Est. Patient 09:30:54 CDT Pelon Quach MD [facility]-10470 Level 4 Est. Patient 14:34:25 CDT Pelon Quach MD [facility]-38358 Level 3 Est. 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 Patient 12:13:33 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 HEALTH NURSE Erik Baptiste MD [facility]-09685 Level 3 Est. Patient 09:40:44 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 HEALTH NURSE Jaycee Torrez [facility]-11416 Level 3 Est. Patient 09:36:32 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 HEALTH NURSE Jaycee Torrez [facility] CPT-29347 Level 4 Est. Patient 16:57:02 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 HEALTH NURSE Pelon Quach MD [facility]-47711 Level 4 Est. Patient 22:19:34 CDT Pelon Quach MD [facility]-25769 Level 3 Est. Patient 00:34:41 CDT Pelon Quach MD [facility]-03189 Level 4 Est. Patient 11:19:14 CDT Pelon Quach MD [facility]-71639 Level 4 Est. Patient 16:43:30 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 HEALTH NURSE Pelon Quach MD [facility]-68624 Level 4 Est. Patient 12:42:18 CDT Pelon Quach MD [facility] CPT-46191 Level 4 Est. Patient 11:52:20 CDT Pelon Quach MD [facility] CPT-12689 Level 4 Est. Patient 13:59:46 CDT Pelon Quach MD [facility] CPT-34706 Level 4 Est. Patient 15:10:48 CDT Pelon Quach MD [facility] CPT-78180 Level 4 Est. Patient 17:13:06 CDT Pelon Quach MD [facility] CPT-99561 Level 4 Est. Patient 18:47:47 CDT Pelon Quach MD [facility] CPT-61912 Level 3 Est. Patient 21:01:27 CDT Pelon Quach MD [facility] CPT-48155 Level 3 Est. Patient 14:07:03 CDT Taty Alvarado MD PhD [facility] CPT-36033 Level 3 New Patient 21:39:52 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 HEALTH NURSE Pelon Quach MD [facility] CPT-27672 Level 3 Est. Patient 14:28:44 CDT Glenn Thornton MD [facility] CPT-35750 Level 3 Est. Patient 16:35:00 CDT Glenn Thornton MD [facility] CPT-88979 Level 4 New Patient 17:06:27 CDT Glenn Thornton MD [facility] [place] Procedures Code Procedure Name Date Entry Date Standard Description CPT-G0439 Subsequent Annual Wellness Exam 18:11:17 CDT CPT-G0438 Initial Annual Wellness Exam 09:30:54 CDT CPT-85522 Prevnar 13 Intramuscular Suspension 14:34:25 CDT 12/27 CPT-97354 Chest 2V Frontal and Lat - XRAY USE ONLY 11:56:13 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 HEALTH NURSE CPT-71572 Cystoscopy 14:28:44 CDT CPT-93178 Bladder Scan 14:28:44 CDT CPT-90337 Indwelling Cath Change 17:06:27 CDT CPT-45205 Cystoscopy 17:06:27 CDT
[2018-06-22] MEDS ORDERED: fentaNYL INJECTION 100 MCG/2 ML AMP ONE ×2 (12:00→12:57)
--- OUTSIDE RECORDS SUMMARY | 2018-06-22 12:00 | XMS REPORT | Clinical Summary ---
Author Author Admin, Blaze D[employer] Organization [facility] [place] Address Unknown Phone Unavailable Allergies, Adverse Reactions, [...] Pelon Quach MD Allergic rhinitis, cause unspecified Medication List Medication Instructions Start Date Stop Date Generic Name [facility] Status Provider Patient Instruction INVEGA [id number] 3MG BY MOUTH ONE TIME DAILY PALIPERIDONE [id number] Active Pelon Quach MD Active ASPIRIN 81 MG ORAL TABS 1 po qd ASPIRIN 50967591579 Active Pelon Quach MD Active ZOFRAN 4 MG TABS 1 po q6hr PRN Nausea ONDANSETRON HCL 31823416373 No Longer Active Pelon Quach MD Active TYLENOL 325 MG TAB 1-2 pills by mouth every 6 hours if needed for pain/fever ACETAMINOPHEN 67880474303 No Longer Active Pelon Quach MD Active INVEGA 6 MG ORAL [id number] 1 TAB ONCE DAILY PALIPERIDONE 26362924804 No Longer Active Carly Suggs Active LANTUS 100 UNIT/ML SC SOLN 18 SUBQ AT HS INSULIN GLARGINE 44675127816 Active Pelon Quach MD Active TEGRETOL 200 MG TABS by mouth twice a day CARBAMAZEPINE 09907896383 Active Taty Alvarado MD PhD Active NOVOLOG 100 UNIT/ML SC SOLN 7 UNITS BEFORE SUPPER INSULIN ASPART 05941827029 Active Marianela Juarez Active NOVOLOG 100 UNIT/ML SC SOLN 7 UNITS BID BEFORE BREAKFAST AND LUNCH INSULIN ASPART 45749090349 Active Marianela Juarez Active FLOMAX 0.4 MG CAPS 1 Daily TAMSULOSIN HCL 61238576433 Active Marianela Juarez Active DILANTIN 100 MG CAPS Take one by mouth daily PHENYTOIN SODIUM EXTENDED 74853811010 No Longer Active Marianela Juarez Active DEPAKOTE SPRINKLES 125 MG CPSP 4 capsules by mouth twice daily DIVALPROEX SODIUM 44680782245 No Longer Active Marianela Juarez Active LAMICTAL 200 MG ORAL TABS 1 BY MOUTH TWICE A DAY LAMOTRIGINE 11825970370 Active Marianelachandrika Juarez Active LAMICTAL 100 MG TABS by mouth twice a day LAMOTRIGINE 47636469048 No Longer Active Marianela Juarez Active LAMICTAL 150 MG TABS by mouth twice a day LAMOTRIGINE 11376063427 No Longer Active Marianela Raida Active DILANTIN 100 MG CAPS Take three by mouth daily PHENYTOIN SODIUM EXTENDED 43895373034 No Longer Active Marianela Larry Active SENOKOT 8.6 MG TABS take at bedtime SENNOSIDES 76730395271 Active Glenn Thornton MD Active LIPITOR 20 MG TABS take at bedtime ATORVASTATIN CALCIUM 41992467930 Active Glenn Thornton MD Active LISINOPRIL 2.5 MG TABS Take one by mouth daily LISINOPRIL 95020365945 Active Glenn Thornton MD Active TRENTAL 400 MG CR-TABS by mouth twice a day PENTOXIFYLLINE 01904004756 Active Glenn Thornton MD Active LAMICTAL 25 MG TABS by mouth twice a day LAMOTRIGINE 27007865352 Active Glenn Thornton MD Active BUSPIRONE HCL 10 MG TABS by mouth twice a day BUSPIRONE HCL 67169484791 Active Glenn Thornton MD Active FUROSEMIDE 40 MG TABS Take one by mouth daily FUROSEMIDE 39884632225 Active Glenn Thornton MD Active KLOR-CON 10 10 MEQ CR-TABS Take one by mouth daily POTASSIUM CHLORIDE 22859580564 Active Glenn Thornton MD Active ADULT ASPIRIN EC LOW STRENGTH 81 MG TBEC Take one by mouth daily ASPIRIN 54929861765 Active Glenn Thornton MD Active DILANTIN 100 MG CAPS Take three by mouth daily DILANTIN 100 MG CAPS 347832 PHENYTOIN SODIUM EXTENDED Inactive LAMICTAL 150 MG TABS by mouth twice a day LAMICTAL 150 MG TABS 621496 LAMOTRIGINE Inactive LAMICTAL 100 MG TABS by mouth twice a day LAMICTAL 100 MG TABS 402039 LAMOTRIGINE Inactive DEPAKOTE SPRINKLES 125 MG CPSP 4 capsules by mouth twice daily DEPAKOTE SPRINKLES 125 MG CPSP 9407647 DIVALPROEX SODIUM Inactive DILANTIN 100 MG CAPS Take one by mouth daily DILANTIN 100 MG CAPS 399303 PHENYTOIN SODIUM EXTENDED Inactive INVEGA 6 MG ORAL [id number] 1 TAB ONCE DAILY INVEGA 6 MG ORAL [id number] PALIPERIDONE Inactive TYLENOL 325 MG TAB 1-2 pills by mouth every 6 hours if needed for pain/fever TYLENOL 325 MG TAB 575340 ACETAMINOPHEN Inactive ZOFRAN 4 MG TABS 1 po q6hr PRN Nausea ZOFRAN 4 MG TABS 658012 ONDANSETRON HCL Inactive Advance Directives Directive Description Start Date DURABLE POWER OF WILDLIFE TECHNICIAN FOR HEALTHCARE PERMISSION TO SHARE Vital Signs Date Name Value Unit Range Description blood pressure, diastolic - 8462-4 60 mm[Hg] [...] E&M - 3141-9 165 [lb_av] Weight Measured blood pressure, diastolic - [...] E&M - 3141-9 160.9 [lb_av] Weight Measured Diagnostic Results Date Name [...] as % of total hemoglobin 7.2 % Lab Report: CBC, Comp. Metabolic Panel, [facility] - Chemistry sodium, serum 132 mmol/L 993-077 0335/10/16 carbon dioxide, venous blood 29.0 mmol/L 21.0-32.0 [...] 4.3-6.0 Lab Report: CBC, Comp. Metabolic Panel, [facility] - Hematology leukocyte count, blood 5.8 10^3/MM^3 [...] 150 mg/dL cholesterol, target level 200 mg/dL LDL target level 100 mg/dL HDL cholesterol, serum, target level 40 mg/dL triglyceride, target level 150 mg/dL Office Visit: FU/FALL - Chemistry cholesterol, target level 200 mg/dL triglyceride, target level 200 mg/dL HDL cholesterol, serum, target level 35 mg/dL LDL target level 100 mg/dL Encounters Code Encounter Date Provider Facility CPT-91148 Level 4 Est. Patient 16:43:30 AGRICULTURAL EXTENSION AGENT Pelon Quach MD [facility] CPT-56968 Level 4 Est. Patient 12:42:18 CDT Pelon Quach MD [facility] CPT-68654 Level 4 Est. Patient 11:52:20 CDT Pelon Quach MD [facility] CPT-19351 Level 4 Est. Patient 13:59:46 CDT Pelon Quach MD [facility] CPT-65787 Level 4 Est. Patient 15:10:48 CDT Pelon Quach MD [facility] CPT-79186 Level 4 Est. Patient 17:13:06 CDT Pelon Quach MD [facility] CPT-62373 Level 4 Est. Patient 18:47:47 CDT Pelon Quach MD [facility] CPT-49625 Level 3 Est. Patient 21:01:27 CDT Pelon Quach MD [facility] CPT-76735 Level 3 Est. Patient 14:07:03 CDT Taty Alvarado MD PhD [facility] CPT-87894 Level 3 New Patient 21:39:52 AGRICULTURAL EXTENSION AGENT Pelon Quach MD [facility] CPT-30167 Level 3 Est. Patient 14:28:44 CDT Glenn Thornton MD [facility] CPT-48332 Level 3 Est. Patient 16:35:00 CDT Glenn Thornton MD [facility] CPT-22801 Level 4 New Patient 17:06:27 CDT [facility] Procedures Code Procedure Name Date Entry Date Standard Description CPT-69734 Cystoscopy 14:28:44 CDT CPT-29045 Bladder Scan 14:28:44 CDT CPT-83147 Indwelling Cath Change 17:06:27 CDT CPT-75048 Cystoscopy 17:06:27 CDT
--- OUTSIDE RECORDS SUMMARY | 2018-06-22 12:01 | XMS REPORT | Clinical Summary ---
Author Author Admin, ONESIMO Organization [facility] [employer] [place] Address Unknown Phone Unavailable Allergies, Adverse Reactions, [...] HOUR 1 po daily for schizophrenia PALIPERIDONE 26773895773 Active Pelon Quach MD Active LAMICTAL 25 MG ORAL TABLET 2 tabs by mouth twice a day LAMOTRIGINE 62196511965 No Longer Active Pelon Quach MD Active BACTROBAN 2 % EXTERNAL OINTMENT Apply to affected area BID 06/28 MUPIROCIN 67460294601 No Longer Active Pelon Quach MD Active BANOPHEN 25 MG ORAL TABLET 1 po every 6 hours PRN allergic reaction DIPHENHYDRAMINE HCL 30106443474 Active NICOLETTE Hitchcock Active INVEGA 6 MG ORAL TABLET EXTENDED RELEASE 24 HOUR 1 po daily for Schizophrenia PALIPERIDONE 16640100613 No Longer Active Pelon Quach MD Active TYLENOL 8 HOUR 650 MG ORAL TABLET EXTENDED RELEASE Take 1 tab po up to 3 times daily as needed ACETAMINOPHEN 89620333484 No Longer Active Pelon Quach MD Active IPRATROPIUM-ALBUTEROL 0.5-2.5 (3) MG/3ML INHALATION SOLUTION 1 neb treatment QID for cough Dx: J06.9 IPRATROPIUM-ALBUTEROL 73886924696 No Longer Active Pelon Quach MD Active BACTRIM DS 800-160 MG ORAL TABLET 1 tab by mouth twice daily 2016 TRIMETHOPRIM-SULFAMETHOXAZOLE 93158037636 No Longer Active Pelon Quach MD Active BACTRIM DS 800-160 MG ORAL TABLET 1 twice a day SULFAMETHOXAZOLE-TRIMETHOPRIM 57651861848 No Longer Active Pelon Quach MD Active IPRATROPIUM-ALBUTEROL 0.5-2.5 (3) MG/3ML INHALATION SOLUTION 1 neb treatment four times daily, for cough IPRATROPIUM-ALBUTEROL 42673204017 No Longer Active Jaycee Garcia APRN Active FUROSEMIDE 40 MG ORAL TABLET Take one by mouth daily FUROSEMIDE 30428194662 No Longer Active Jaycee Garcia APRN Active LANTUS 100 UNIT/ML SUBCUTANEOUS SOLUTION 20 SUBQ AT HS INSULIN GLARGINE 27672209147 Active Pelon Quach MD Active LAMICTAL 25 MG ORAL TABLET 2 tabs po BID for convulsions LAMOTRIGINE 82983614373 Active Jaycee Garcia APRN Active LASIX 20 MG ORAL TABLET 1 tablet by mouth every morning for edema FUROSEMIDE 05752664328 Active Jaycee Garcia APRN Active BUSPIRONE HCL 10 MG ORAL TABLET 1 tab by mouth BID BUSPIRONE HCL 36591400669 Active Jaycee Garcia APRN Active NOVOLOG 100 UNIT/ML SUBCUTANEOUS SOLUTION 10 UNITS BEFORE SUPPER INSULIN ASPART 02191794262 Active Jaycee Garcia APRN Active NOVOLOG 100 UNIT/ML SUBCUTANEOUS SOLUTION 10 UNITS BID BEFORE BREAKFAST AND LUNCH INSULIN ASPART 75524236324 Active Jaycee Garcia APRN Active ADULT ASPIRIN EC LOW STRENGTH 81 MG ORAL TABLET DELAYED RELEASE Take one by mouth daily ASPIRIN 85863149543 No Longer Active Pelon Quach MD Active ASPIRIN 81 MG ORAL TABLET 1 po qd ASPIRIN 38609495749 Active Pelon Quach MD Active ZOFRAN 4 MG ORAL TABLET 1 po q6hr PRN Nausea ONDANSETRON HCL 82978636713 No Longer Active Pelon Quach MD Active TYLENOL 325 MG ORAL TABLET 1-2 pills by mouth every 6 hours if needed for pain /fever ACETAMINOPHEN 67508712822 No Longer Active Pelon Quach MD Active INVEGA 6 MG ORAL TABLET EXTENDED RELEASE 24 HOUR 1 TAB ONCE DAILY PALIPERIDONE 24387336205 No Longer Active Carly Suggs Active TEGRETOL 200 MG ORAL TABLET by mouth twice a day CARBAMAZEPINE 52797812495 Active Taty Alvarado MD PhD Active FLOMAX 0.4 MG ORAL CAPSULE 1 Daily TAMSULOSIN HCL 10160935152 Active Marianela Juarez Active DILANTIN 100 MG ORAL CAPSULE Take one by mouth daily PHENYTOIN SODIUM EXTENDED 16877139795 No Longer Active Marianela Juarez Active DEPAKOTE SPRINKLES 125 MG ORAL CAPSULE DELAYED RELEASE SPRINKLE 4 capsules by mouth twice daily DIVALPROEX SODIUM 28384113342 No Longer Active Marianelachandrika Juarez Active LAMICTAL 200 MG ORAL TABLET 1 BY MOUTH TWICE A DAY LAMOTRIGINE 64982853998 Active Marianelachandrika Juarez Active LAMICTAL 100 MG ORAL TABLET by mouth twice a day LAMOTRIGINE 01658025557 No Longer Active Marianelachandrika Juarez Active LAMICTAL 150 MG ORAL TABLET by mouth twice a day LAMOTRIGINE 04883665752 No Longer Active Marianela Juarez Active DILANTIN 100 MG ORAL CAPSULE Take three by mouth daily PHENYTOIN SODIUM EXTENDED 40888788186 No Longer Active Marianela Juarez Active SENOKOT 8.6 MG ORAL TABLET take at bedtime SENNOSIDES 67751750157 Active Pelon Quach MD Active LIPITOR 20 MG ORAL TABLET take at bedtime ATORVASTATIN CALCIUM 41267690102 Active Glenn Thornton MD Active LISINOPRIL 2.5 MG ORAL TABLET Take one by mouth daily LISINOPRIL 80756584519 Active Glenn Thornton MD Active TRENTAL 400 MG CR-TABS by mouth twice a day PENTOXIFYLLINE 17212387442 Active Glenn Thornton MD Active KLOR-CON 10 10 MEQ ORAL TABLET EXTENDED RELEASE Take one by mouth daily POTASSIUM CHLORIDE 33995299925 Active Glenn Thornton MD Active DILANTIN 100 MG ORAL CAPSULE Take three by mouth daily DILANTIN 100 MG ORAL CAPSULE 057171 PHENYTOIN SODIUM EXTENDED Inactive LAMICTAL 150 MG ORAL TABLET by mouth twice a day LAMICTAL 150 MG ORAL TABLET 183950 LAMOTRIGINE Inactive LAMICTAL 100 MG ORAL TABLET by mouth twice a day LAMICTAL 100 MG ORAL TABLET 954328 LAMOTRIGINE Inactive DEPAKOTE SPRINKLES 125 MG ORAL CAPSULE DELAYED RELEASE SPRINKLE 4 capsules by mouth twice daily DEPAKOTE SPRINKLES 125 MG ORAL CAPSULE DELAYED RELEASE SPRINKLE 0816953 DIVALPROEX SODIUM Inactive DILANTIN 100 MG ORAL CAPSULE Take one by mouth daily DILANTIN 100 MG ORAL CAPSULE 902279 PHENYTOIN SODIUM EXTENDED Inactive INVEGA 6 MG ORAL TABLET EXTENDED RELEASE 24 HOUR 1 TAB ONCE DAILY INVEGA 6 MG ORAL TABLET EXTENDED RELEASE 24 HOUR PALIPERIDONE Inactive TYLENOL 325 MG ORAL TABLET 1-2 pills by mouth every 6 hours if needed for pain /fever TYLENOL 325 MG ORAL TABLET 850243 ACETAMINOPHEN Inactive ZOFRAN 4 MG ORAL TABLET 1 po q6hr PRN Nausea ZOFRAN 4 MG ORAL TABLET 055239 ONDANSETRON HCL Inactive ADULT ASPIRIN EC LOW STRENGTH 81 MG ORAL TABLET DELAYED RELEASE Take one by mouth daily ADULT ASPIRIN EC LOW STRENGTH 81 MG ORAL TABLET DELAYED RELEASE 319561 ASPIRIN Inactive FUROSEMIDE 40 MG ORAL TABLET Take one by mouth daily FUROSEMIDE 40 MG ORAL TABLET 754290 FUROSEMIDE Inactive BACTRIM DS 800-160 MG ORAL TABLET 1 twice a day BACTRIM DS 800-160 MG ORAL TABLET 314596 SULFAMETHOXAZOLE-TRIMETHOPRIM Inactive IPRATROPIUM-ALBUTEROL 0.5-2.5 (3) MG/3ML INHALATION SOLUTION 1 neb treatment QID for cough Dx: J06.9 IPRATROPIUM-ALBUTEROL 0.5-2.5 ( 3) MG/3ML INHALATION SOLUTION 4292361 IPRATROPIUM-ALBUTEROL Inactive TYLENOL 8 HOUR 650 MG [...] BID 06/28 BACTROBAN 2 % EXTERNAL OINTMENT 251147 MUPIROCIN Inactive LAMICTAL 25 MG ORAL TABLET 2 tabs by mouth twice a day LAMICTAL 25 MG ORAL TABLET 390338 LAMOTRIGINE Inactive IPRATROPIUM-ALBUTEROL 0.5-2.5 (3) MG/3ML INHALATION SOLUTION 1 neb treatment four times daily, for cough IPRATROPIUM-ALBUTEROL 0.5- 2.5 (3) MG/3ML INHALATION SOLUTION 3056748 IPRATROPIUM-ALBUTEROL Inactive BACTRIM DS 800-160 MG ORAL TABLET 1 tab by mouth twice daily 2016 BACTRIM DS 800-160 MG ORAL TABLET 887081 TRIMETHOPRIM- SULFAMETHOXAZOLE Inactive Advance Directives Directive Description Start Date DURABLE POWER OF SUPERVISING LIBRARIAN FOR HEALTHCARE PERMISSION TO SHARE ADVANCED DIRECTIVE [...] Panel - Chemistry sodium, serum 127 mmol/L 723-088 8268/07/28 potassium, serum 5.3 mmol/L 3.5-5.2 chloride, serum 92 mmol/L 98-107 carbon dioxide, venous blood 32.4 mmol/L 21.0-32.0 blood glucose 182 mg/dL 65-110 calcium, serum 9.4 mg/dL 8.5-10.1 urea nitrogen, blood 14 mg/dL 7-18 creatinine, serum 0.94 mg/dL 0.60-1.30 Lab Report: CBC, Comp. Metabolic Panel - Chemistry sodium, serum 129 mmol/L 728-477 2836/07/12 carbon dioxide, venous blood 27.8 mmol/L 21.0-32.0 [...] mg/dL Encounters Code Encounter Date Provider Facility CPT-71755 Level 4 Est. Patient 14:46:38 CDT Pelon Quach MD [facility] CPT-69211 Level 4 Est. Patient 08:43:11 CDT Pelon Quach MD [facility] CPT-29461 Level 4 Est. Patient 14:27:30 CDT Pelon Quach MD [facility] CPT-49168 Level 3 Est. Patient 10:32:17 CDT Jaycee Garcia [facility] CPT-69372 Level 3 Est. Patient 10:15:07 CDT Pelon Quach MD [facility] CPT-84879 Level 4 Est. Patient 09:30:54 CDT Pelon Quach MD [facility] CPT-69321 Level 4 Est. Patient 14:34:25 CDT Pelon Quach MD [facility] CPT-81582 Level 3 Est. Patient 11:51:35 MOTION PICTURE OPERATOR Rick Henson DO [facility] CPT-91754 Level 3 Est. Patient 12:13:33 MOTION PICTURE OPERATOR Erik Baptiste MD [facility] CPT-23664 Level 3 Est. Patient 09:40:44 MOTION PICTURE OPERATOR Jaycee Garcia [facility] CPT-76826 Level 3 Est. Patient 09:36:32 MOTION PICTURE OPERATOR Jaycee Garcia [facility] CPT-46499 Level 4 Est. Patient 16:57:02 MOTION PICTURE OPERATOR Pelon Quach MD [facility]-96380 Level 4 Est. Patient 22:19:34 CDT Pelon Quach MD [facility]-11916 Level 3 Est. Patient 00:34:41 CDT Pelon Quach MD [facility]-73625 Level 4 Est. Patient 11:19:14 CDT Pelon Quach MD [facility]-48218 Level 4 Est. Patient 16:43:30 MOTION PICTURE OPERATOR Pelon Quach MD [facility]-45042 Level 4 Est. Patient 12:42:18 CDT Pelon Quach MD [facility]-52739 Level 4 Est. Patient 11:52:20 CDT Pelon Quach MD [facility]-40020 Level 4 Est. Patient 13:59:46 CDT Pelon Quach MD [facility]-40303 Level 4 Est. Patient 15:10:48 CDT Pelon Quach MD [facility]-67498 Level 4 Est. Patient 17:13:06 CDT Pelon Quach MD [facility]-99609 Level 4 Est. Patient 18:47:47 CDT Pelon Quach MD [facility]-55512 Level 3 Est. Patient 21:01:27 CDT Pelon Quach MD [facility] CPT-61661 Level 3 Est. Patient 14:07:03 CDT Taty Alvarado MD PhD [facility] CPT-35043 Level 3 New Patient 21:39:52 MOTION PICTURE OPERATOR Pelon Quach MD [facility]-55197 Level 3 Est. Patient 14:28:44 CDT Glenn Thornton [facility]-82877 Level 3 Est. Patient 16:35:00 CDT Glenn Thornton MD [facility] CPT-29516 Level 4 New Patient 17:06:27 CDT Glenn Thornton MD [facility] Procedures Code Procedure Name Date Entry Date Standard Description CPT-G0438 Initial Annual Wellness Exam 09:30:54 CDT CPT-79859 Prevnar 13 Intramuscular Suspension 14:34:25 CDT 12/27 CPT-83941 Chest 2V Frontal and Lat - XRAY USE ONLY 11:56:13 MOTION PICTURE OPERATOR CPT-40346 Cystoscopy 14:28:44 CDT CPT-36256 Bladder Scan 14:28:44 CDT CPT-18006 Indwelling Cath Change 17:06:27 CDT CPT-97215 Cystoscopy 17:06:27 CDT
--- OUTSIDE RECORDS SUMMARY | 2018-06-22 12:01 | XMS REPORT | Clinical Summary ---
Author Author Admin, ONESIMO Organization [facility] Interview Master [place] Address Unknown Phone Unavailable Allergies, Adverse Reactions, [...] HOUR 1 po daily for schizophrenia PALIPERIDONE 48214860626 Active Pelon Quach MD Active LAMICTAL 25 MG ORAL TABLET 2 tabs by mouth twice a day LAMOTRIGINE 56451081597 No Longer Active Pelon Quach MD Active BACTROBAN 2 % EXTERNAL OINTMENT Apply to affected area BID 06/28 MUPIROCIN 90238151135 No Longer Active Pelon Quach MD Active BANOPHEN 25 MG ORAL TABLET 1 po every 6 hours PRN allergic reaction DIPHENHYDRAMINE HCL 06054037058 Active NICOLETTE Hitchcock Active INVEGA 6 MG ORAL TABLET EXTENDED RELEASE 24 HOUR 1 po daily for Schizophrenia PALIPERIDONE 34438554027 No Longer Active Pelon Quach MD Active TYLENOL 8 HOUR 650 MG ORAL TABLET EXTENDED RELEASE Take 1 tab po up to 3 times daily as needed ACETAMINOPHEN 25002191806 No Longer Active Pelon Quach MD Active IPRATROPIUM-ALBUTEROL 0.5-2.5 (3) MG/3ML INHALATION SOLUTION 1 neb treatment QID for cough Dx: J06.9 IPRATROPIUM-ALBUTEROL 18453880225 No Longer Active Pelon Quach MD Active BACTRIM DS 800-160 MG ORAL TABLET 1 tab by mouth twice daily 2016 TRIMETHOPRIM-SULFAMETHOXAZOLE 49089852213 No Longer Active Pelon Quach MD Active BACTRIM DS 800-160 MG ORAL TABLET 1 twice a day SULFAMETHOXAZOLE-TRIMETHOPRIM 26734384431 No Longer Active Pelon Quach MD Active IPRATROPIUM-ALBUTEROL 0.5-2.5 (3) MG/3ML INHALATION SOLUTION 1 neb treatment four times daily, for cough IPRATROPIUM-ALBUTEROL 84304826305 No Longer Active Jaycee Garcia APRN Active FUROSEMIDE 40 MG ORAL TABLET Take one by mouth daily FUROSEMIDE 30169675607 No Longer Active Jaycee Garcia APRN Active LANTUS 100 UNIT/ML SUBCUTANEOUS SOLUTION 20 SUBQ AT HS INSULIN GLARGINE 42264812091 Active Pelon Quach MD Active LAMICTAL 25 MG ORAL TABLET 2 tabs po BID for convulsions LAMOTRIGINE 05058659953 Active Jaycee Garcia APRN Active LASIX 20 MG ORAL TABLET 1 tablet by mouth every morning for edema FUROSEMIDE 35864176445 Active Jaycee Gacria APRN Active BUSPIRONE HCL 10 MG ORAL TABLET 1 tab by mouth BID BUSPIRONE HCL 07126808705 Active Jyacee Garcia APRN Active NOVOLOG 100 UNIT/ML SUBCUTANEOUS SOLUTION 10 UNITS BEFORE SUPPER INSULIN ASPART 46233863034 Active Jaycee Garcia APRN Active NOVOLOG 100 UNIT/ML SUBCUTANEOUS SOLUTION 10 UNITS BID BEFORE BREAKFAST AND LUNCH INSULIN ASPART 16443267162 Active Jaycee Garcia APRN Active ADULT ASPIRIN EC LOW STRENGTH 81 MG ORAL TABLET DELAYED RELEASE Take one by mouth daily ASPIRIN 16470798792 No Longer Active Pelon Quach MD Active ASPIRIN 81 MG ORAL TABLET 1 po qd ASPIRIN 86466609789 Active Pelon Quach MD Active ZOFRAN 4 MG ORAL TABLET 1 po q6hr PRN Nausea ONDANSETRON HCL 81838910197 No Longer Active Pelon Quach MD Active TYLENOL 325 MG ORAL TABLET 1-2 pills by mouth every 6 hours if needed for pain /fever ACETAMINOPHEN 50397708448 No Longer Active Pelon Quach MD Active INVEGA 6 MG ORAL TABLET EXTENDED RELEASE 24 HOUR 1 TAB ONCE DAILY PALIPERIDONE 85153506641 No Longer Active Carly Suggs Active TEGRETOL 200 MG ORAL TABLET by mouth twice a day CARBAMAZEPINE 44714738233 Active Taty Alvarado MD PhD Active FLOMAX 0.4 MG ORAL CAPSULE 1 Daily TAMSULOSIN HCL 98683687739 Active Marianela Juarez Active DILANTIN 100 MG ORAL CAPSULE Take one by mouth daily PHENYTOIN SODIUM EXTENDED 77757442447 No Longer Active Marianela Juarez Active DEPAKOTE SPRINKLES 125 MG ORAL CAPSULE DELAYED RELEASE SPRINKLE 4 capsules by mouth twice daily DIVALPROEX SODIUM 29203911905 No Longer Active Marianelachandrika Juarez Active LAMICTAL 200 MG ORAL TABLET 1 BY MOUTH TWICE A DAY LAMOTRIGINE 17991063515 Active Marianelachandrika Juarez Active LAMICTAL 100 MG ORAL TABLET by mouth twice a day LAMOTRIGINE 21698349159 No Longer Active Marianelachandrika Juarez Active LAMICTAL 150 MG ORAL TABLET by mouth twice a day LAMOTRIGINE 30538318174 No Longer Active Marianela Juarez Active DILANTIN 100 MG ORAL CAPSULE Take three by mouth daily PHENYTOIN SODIUM EXTENDED 89799045919 No Longer Active Marianela Juarez Active SENOKOT 8.6 MG ORAL TABLET take at bedtime SENNOSIDES 47026429462 Active Pelon Quach MD Active LIPITOR 20 MG ORAL TABLET take at bedtime ATORVASTATIN CALCIUM 58668353599 Active Glenn Thornton MD Active LISINOPRIL 2.5 MG ORAL TABLET Take one by mouth daily LISINOPRIL 26229155437 Active Glenn Thornton MD Active TRENTAL 400 MG CR-TABS by mouth twice a day PENTOXIFYLLINE 99523520008 Active Glenn Thornton MD Active KLOR-CON 10 10 MEQ ORAL TABLET EXTENDED RELEASE Take one by mouth daily POTASSIUM CHLORIDE 37246516333 Active Glenn Thornton MD Active DILANTIN 100 MG ORAL CAPSULE Take three by mouth daily DILANTIN 100 MG ORAL CAPSULE 053398 PHENYTOIN SODIUM EXTENDED Inactive LAMICTAL 150 MG ORAL TABLET by mouth twice a day LAMICTAL 150 MG ORAL TABLET 798609 LAMOTRIGINE Inactive LAMICTAL 100 MG ORAL TABLET by mouth twice a day LAMICTAL 100 MG ORAL TABLET 347952 LAMOTRIGINE Inactive DEPAKOTE SPRINKLES 125 MG ORAL CAPSULE DELAYED RELEASE SPRINKLE 4 capsules by mouth twice daily DEPAKOTE SPRINKLES 125 MG ORAL CAPSULE DELAYED RELEASE SPRINKLE 1981028 DIVALPROEX SODIUM Inactive DILANTIN 100 MG ORAL CAPSULE Take one by mouth daily DILANTIN 100 MG ORAL CAPSULE 680097 PHENYTOIN SODIUM EXTENDED Inactive INVEGA 6 MG ORAL TABLET EXTENDED RELEASE 24 HOUR 1 TAB ONCE DAILY INVEGA 6 MG ORAL TABLET EXTENDED RELEASE 24 HOUR PALIPERIDONE Inactive TYLENOL 325 MG ORAL TABLET 1-2 pills by mouth every 6 hours if needed for pain /fever TYLENOL 325 MG ORAL TABLET 611930 ACETAMINOPHEN Inactive ZOFRAN 4 MG ORAL TABLET 1 po q6hr PRN Nausea ZOFRAN 4 MG ORAL TABLET 910400 ONDANSETRON HCL Inactive ADULT ASPIRIN EC LOW STRENGTH 81 MG ORAL TABLET DELAYED RELEASE Take one by mouth daily ADULT ASPIRIN EC LOW STRENGTH 81 MG ORAL TABLET DELAYED RELEASE 872191 ASPIRIN Inactive FUROSEMIDE 40 MG ORAL TABLET Take one by mouth daily FUROSEMIDE 40 MG ORAL TABLET 909922 FUROSEMIDE Inactive BACTRIM DS 800-160 MG ORAL TABLET 1 twice a day BACTRIM DS 800-160 MG ORAL TABLET 212793 SULFAMETHOXAZOLE-TRIMETHOPRIM Inactive IPRATROPIUM-ALBUTEROL 0.5-2.5 (3) MG/3ML INHALATION SOLUTION 1 neb treatment QID for cough Dx: J06.9 IPRATROPIUM-ALBUTEROL 0.5-2.5 ( 3) MG/3ML INHALATION SOLUTION 1406241 IPRATROPIUM-ALBUTEROL Inactive TYLENOL 8 HOUR 650 MG [...] BID 06/28 BACTROBAN 2 % EXTERNAL OINTMENT 366182 MUPIROCIN Inactive LAMICTAL 25 MG ORAL TABLET 2 tabs by mouth twice a day LAMICTAL 25 MG ORAL TABLET 593623 LAMOTRIGINE Inactive IPRATROPIUM-ALBUTEROL 0.5-2.5 (3) MG/3ML INHALATION SOLUTION 1 neb treatment four times daily, for cough IPRATROPIUM-ALBUTEROL 0.5- 2.5 (3) MG/3ML INHALATION SOLUTION 6092124 IPRATROPIUM-ALBUTEROL Inactive BACTRIM DS 800-160 MG ORAL TABLET 1 tab by mouth twice daily 2016 BACTRIM DS 800-160 MG ORAL TABLET 170206 TRIMETHOPRIM- SULFAMETHOXAZOLE Inactive Advance Directives Directive Description Start Date DURABLE POWER OF FELL CUTTER FOR HEALTHCARE PERMISSION TO SHARE ADVANCED DIRECTIVE [...] temperature weight E&M 172 [lb_av] Weight Measured Diagnostic Results Date Name Value Unit Range Description Lab Report: Basic Metabolic Panel - Chemistry sodium, serum 127 mmol/L 156-479 9511/07/28 potassium, serum 5.3 mmol/L 3.5-5.2 chloride, serum 92 mmol/L 98-107 carbon dioxide, venous blood 32.4 mmol/L 21.0-32.0 blood glucose 182 mg/dL 65-110 calcium, serum 9.4 mg/dL 8.5-10.1 urea nitrogen, blood 14 mg/dL 7-18 creatinine, serum 0.94 mg/dL 0.60-1.30 Lab Report: CBC, Comp. Metabolic Panel - Chemistry sodium, serum 129 mmol/L 380-975 1831/07/12 carbon dioxide, venous blood 27.8 mmol/L 21.0-32.0 [...] mg/dL Encounters Code Encounter Date Provider Facility CPT-93242 Level 4 Est. Patient 14:46:38 CDT [facility] CPT-[facility]20 Level 4 Est. Patient 08:43:11 CDT Pel[facility] CPT-11982 Level 4 Est. Patient 14:27:30 CDT Pelon Quach [facility] CPT-68572 Level 3 Est. Patient 10:32:17 CDT Jaycee Garcia [facility] CPT-42382 Level 3 Est. Patient 10:15:07 CDT Pelon Quach MD [facility] CPT-26338 Level 4 Est. Patient 09:30:54 CDT Pelon Quach MD [facility]-61427 Level 4 Est. Patient 14:34:25 CDT Pelon Quach MD [facility] CPT-08243 Level 3 Est. Patient 11:51:35 [employer] Rick H[facility] CPT-30028 Level 3 Est. Patient 12:13:33 [employer] Erik Baptiste [facility] CPT-77841 Level 3 Est. Patient 09:40:44 [employer] Jaycee Garcia [facility] CPT-01506 Level 3 Est. Patient 09:36:32 [employer] Jaycee Garcia [facility] CPT-74138 Level 4 Est. Patient 16:57:02 [employer] Pelon Quach MD [facility] CPT-51028 Level 4 Est. Patient 22:19:34 CDT Pelon Quach [facility] CPT-68108 Level 3 Est. Patient 00:34:41 CDT Pelon Quach MD [facility]-58418 Level 4 Est. Patient 11:19:14 CDT Pelon Quach [facility] CPT-25131 Level 4 Est. Patient 16:43:30 [employer] Pelon Quach MD [facility]-65993 Level 4 Est. Patient 12:42:18 CDT Pelon Quach MD [facility] CPT-04400 Level 4 Est. Patient 11:52:20 CDT Pelon Quach MD [facility] CPT-57303 Level 4 Est. Patient 13:59:46 CDT Pelon Quach MD [facility] CPT-00188 Level 4 Est. Patient 15:10:48 CDT Pelon Quach MD [facility] CPT-81787 Level 4 Est. Patient 17:13:06 CDT Pelon Quach MD [facility] CPT-90420 Level 4 Est. Patient 18:47:47 CDT Pelon Quach MD [facility] CPT-99615 Level 3 Est. Patient 21:01:27 CDT Pelon Quach MD [facility] CPT-97109 Level 3 Est. Patient 14:07:03 CDT Taty Alvarado MD PhD [facility] CPT-76547 Level 3 New Patient 21:39:52 [employer] Pelon Quach MD [facility] CPT-18733 Level 3 Est. Patient 14:28:44 CDT Glenn Thornton MD [facility] CPT-76970 Level 3 Est. Patient 16:35:00 CDT Glenn Thornton MD [facility] CPT-86665 Level 4 New Patient 17:06:27 CDT Glenn Thornton MD [facility] [place] Procedures Code Procedure Name Date Entry Date Standard Description CPT-G0438 Initial Annual Wellness Exam 09:30:54 CDT CPT-87274 Prevnar 13 Intramuscular Suspension 14:34:25 CDT 12/27 CPT-76777 Chest 2V Frontal and Lat - XRAY USE ONLY 11:56:13 [employer] CPT-00475 Cystoscopy 14:28:44 CDT CPT-88819 Bladder Scan 14:28:44 CDT CPT-94941 Indwelling Cath Change 17:06:27 CDT CPT-71485 Cystoscopy 17:06:27 CDT
--- NOTE | 2018-06-22 12:02 | History & Physical-Surgical ---
HPO-Surgical History of Present Illness Chief Complaint: Posterior epistaxis that started early this am while pt was sleeping. Went to [facility] where bleeding was able to be stopped with Neosynepherine and pressure, observation prior to d/c. Patient then returned to ER for epistaxis that restarted. [facility] ER was then able to decrease bleeding with packing bilat. nares with rhino rockets, but pt continued to have bleeding posterior and back of pharynx Diagnosis/Surgical Indication: Posterior Nasal Epistaxis Procedure: Repair of Epistaxis under anesthia Date of Surgery: Jun 22, 2018 Allergies and Home Medications Allergies Coded Allergies: No Known Drug Allergies (Unverified , 06/22/18) Patient Home Medication List Home Medication List Reviewed: Yes (flomax 0.4 dialy , lamictal 200mg bid, lamictal 25mg 2 tabs bid, Lantus 20units subq hs, Lasix 20mg daily, lipitor 20mg daily, novolog 10units subq tidac, senekot 8.6mg daily, tegretol 200mg bid , buspirone 10mg one po tid, ibuprofen 200mg 2 tabs [id number] prn pain, lisinopril 2.5mg daily, paliperidone 6mg daily in am, tolterodine 4mg daily for bladder) Past Sjagafe-Wpsscn-Snsegf Hx Surgeries Yes (Hernia) CABG Neurological Yes Seizure Disorder Exam Vital Signs Capillary Refill : Labs Laboratory Tests Test 06/22/18 11:30 Range/Units White Blood Count 7.8 4.3-11.0 10^3/uL Red Blood Count 2.70 L 4.35-5.85 10^6/uL Hemoglobin 8.9 L 13.3-17.7 G/DL Hematocrit 25 L 40-54 % Mean Corpuscular Volume 93 80-99 FL Mean Corpuscular Hemoglobin 33 25-34 PG Mean Corpuscular Hemoglobin Concent 36 32-36 G/DL Red Cell Distribution Width 13.5 10.0-14.5 % Platelet Count 216 130-400 10^3/uL Mean Platelet Volume 8.2 7.4-10.4 FL Neutrophils (%) (Auto) 90 H 42-75 % Lymphocytes (%) (Auto) 4 L 12-44 % Monocytes (%) (Auto) 6 0-12 % Eosinophils (%) (Auto) 1 0-10 % Basophils (%) (Auto) 0 0-10 % Neutrophils # (Auto) 7.0 1.8-7.8 X 10^3 Lymphocytes # (Auto) 0.3 L 1.0-4.0 X 10^3 Monocytes # (Auto) 0.4 0.0-1.0 X 10^3 Eosinophils # (Auto) 0.1 0.0-0.3 10^3/uL Basophils # (Auto) 0.0 0.0-0.1 10^3/uL Sodium Level 130 L 135-145 MMOL/L Potassium Level 4.3 3.6-5.0 MMOL/L Chloride Level 105 98-107 MMOL/L Carbon Dioxide Level 17 L 21-32 MMOL/L Anion Gap 8 5-14 MMOL/L Blood Urea Nitrogen 25 H 7-18 MG/DL Creatinine 0.58 L 0.60-1.30 MG/DL Estimat Glomerular Filtration Rate > 60 BUN/Creatinine Ratio 43 Glucose Level 245 H 70-105 MG/DL Calcium Level 6.6 L 8.5-10.1 MG/DL General Appearance: Alert, Oriented X3, Cooperative, No Acute Distress HEENT: Other (bruising on face, rhino rockets bilat in place) Neuro: Normal Speech, Other (hx of seizure disorder) Assessment/Plan Assessment and Plan Posterior Epistaxis that is unable to be controlled with nasal packing. Epistaxis repair under anesthesia. Pt had another CBC, Type and Cross Problems: (1) Posterior epistaxis Status: Acute (2) Recurrent epistaxis Assessment & Plan: surgical repair of epistaxis Admission Diagnosis observation due to recurrent epistaxis, anemia, seizure disorder, Admission Status: Observation EVONNE SHARMA [employer] WORK[employer] Jun 22, 2018 12:02
--- OUTSIDE RECORDS SUMMARY | 2018-06-22 12:02 | XMS REPORT | Clinical Summary ---
Author Author Admin, ONESIMO Organization [facility] Address Unknown Phone Unavailable Allergies, Adverse Reactions, [...] abnormality URI - acute ICD-465.9 Inactive Erik Batpiste MD URI - acute ICD-465.9 Inactive Erik Baptiste MD Medication List Medication Instructions Start Date Stop Date Generic Name NDC Status Provider Patient Instruction BACTRIM DS 800-160 MG TABS 1 twice a day SULFAMETHOXAZOLE- TRIMETHOPRIM 30188079526 Active Erik Baptiste MD Active IPRATROPIUM-ALBUTEROL 0.5-2.5 (3) MG/3ML INH SOLN 1 neb treatment QID for cough Dx: J06.9 IPRATROPIUM-ALBUTEROL 44482921202 Active Jaycee Garcia APRN Active IPRATROPIUM-ALBUTEROL 0.5-2.5 (3) MG/3ML SOLN 1 neb treatment four times daily , for cough IPRATROPIUM-ALBUTEROL 88512910067 No Longer Active Jaycee Garcia APRN Active TYLENOL 8 HOUR 650 MG ORAL CR-TABS Take 1 tab po up to 3 times daily as needed ACETAMINOPHEN 80319626964 Active Jaycee Jose BRUSHER OPERATOR Active FUROSEMIDE 40 MG TABS Take one by mouth daily FUROSEMIDE 22949572409 No Longer Active Jaycee Garcia VICTORINO Active LANTUS 100 UNIT/ML SC SOLN 20 SUBQ AT HS INSULIN GLARGINE 89141462819 Active Jaycee Jose BRUSHER OPERATOR Active LAMICTAL 25 MG ORAL TABS 2 tabs po BID for convulsions LAMOTRIGINE 45443892738 Active Jaycee Garcia VICTORINO Active INVEGA 6 MG ORAL [id number] 1 po daily for Schizophrenia PALIPERIDONE 23345473226 Active Jaycee Garcia VICTORINO Active LASIX 20 MG TAB 1 tablet by mouth every morning for edema FUROSEMIDE 31696684875 Active Jayceehugo Garcia APRN Active BUSPIRONE HCL 10 MG TABS 1 tab by mouth BID BUSPIRONE HCL 91736052298 Active Jaycee Garcia VICTORINO Active NOVOLOG 100 UNIT/ML SC SOLN 10 UNITS BEFORE SUPPER INSULIN ASPART 99825166391 Active Jaycee Garcia VICTORINO Active NOVOLOG 100 UNIT/ML SC SOLN 10 UNITS BID BEFORE BREAKFAST AND LUNCH INSULIN ASPART 04139265135 Active Jaycee Garcia VICTORINO Active LAMICTAL 25 MG TABS 2 tabs by mouth twice a day LAMOTRIGINE 90995248716 Active Pelon Quach MD Active ADULT ASPIRIN EC LOW STRENGTH 81 MG TBEC Take one by mouth daily ASPIRIN 59396996068 No Longer Active Pelon Quach MD Active ASPIRIN 81 MG ORAL TABS 1 po qd ASPIRIN 76303188077 Active Pelon Quach MD Active ZOFRAN 4 MG TABS 1 po q6hr PRN Nausea ONDANSETRON HCL 64059240175 No Longer Active Pelon Quach MD Active TYLENOL 325 MG TAB 1-2 pills by mouth every 6 hours if needed for pain/fever ACETAMINOPHEN 75055381737 No Longer Active Pelon Quach MD Active INVEGA 6 MG ORAL [id number] 1 TAB ONCE DAILY PALIPERIDONE 01085818143 No Longer Active Carly Suggs Active TEGRETOL 200 MG TABS by mouth twice a day CARBAMAZEPINE 14347999201 Active Taty Alvarado MD PhD Active FLOMAX 0.4 MG CAPS 1 Daily TAMSULOSIN HCL 43570629298 Active Marianelachandrika Juarez Active DILANTIN 100 MG CAPS Take one by mouth daily PHENYTOIN SODIUM EXTENDED 39477786707 No Longer Active Marianelachandrika Juarez Active DEPAKOTE SPRINKLES 125 MG CPSP 4 capsules by mouth twice daily DIVALPROEX SODIUM 33324909882 No Longer Active Marianelachandrika Juarez Active LAMICTAL 200 MG ORAL TABS 1 BY MOUTH TWICE A DAY LAMOTRIGINE 87304384335 Active Marianelachandrika Juarez Active LAMICTAL 100 MG TABS by mouth twice a day LAMOTRIGINE 50850414670 No Longer Active Marianelachandrika Juarez Active LAMICTAL 150 MG TABS by mouth twice a day LAMOTRIGINE 70244768911 No Longer Active Marianelachandrika Juarez Active DILANTIN 100 MG CAPS Take three by mouth daily PHENYTOIN SODIUM EXTENDED 04042961644 No Longer Active Marianela Juarez Active SENOKOT 8.6 MG TABS take at bedtime SENNOSIDES 96574645436 Active Glenn Thornton MD Active LIPITOR 20 MG TABS take at bedtime ATORVASTATIN CALCIUM 21253687061 Active Glenn Thornton MD Active LISINOPRIL 2.5 MG TABS Take one by mouth daily LISINOPRIL 07732928122 Active Glenn Thornton MD Active TRENTAL 400 MG CR-TABS by mouth twice a day PENTOXIFYLLINE 72024586334 Active Glenn Thornton MD Active KLOR-CON 10 10 MEQ CR-TABS Take one by mouth daily POTASSIUM CHLORIDE 07898545265 Active Glenn Thornton MD Active DILANTIN 100 MG CAPS Take three by mouth daily DILANTIN 100 MG CAPS 411639 PHENYTOIN SODIUM EXTENDED Inactive LAMICTAL 150 MG TABS by mouth twice a day LAMICTAL 150 MG TABS 19831025 LAMOTRIGINE Inactive LAMICTAL 100 MG TABS by mouth twice a day LAMICTAL 100 MG TABS 19831024 LAMOTRIGINE Inactive DEPAKOTE SPRINKLES 125 MG CPSP 4 capsules by mouth twice daily DEPAKOTE SPRINKLES 125 MG CPSP 3221784 DIVALPROEX SODIUM Inactive DILANTIN 100 MG CAPS Take one by mouth daily DILANTIN 100 MG CAPS 392969 PHENYTOIN SODIUM EXTENDED Inactive INVEGA 6 MG ORAL [id number] 1 TAB ONCE DAILY INVEGA 6 MG ORAL [id number] PALIPERIDONE Inactive TYLENOL 325 MG TAB 1-2 pills by mouth every 6 hours if needed for pain/fever TYLENOL 325 MG TAB 238804 ACETAMINOPHEN Inactive ZOFRAN 4 MG TABS 1 po q6hr PRN Nausea ZOFRAN 4 MG TABS 188946 ONDANSETRON HCL Inactive ADULT ASPIRIN EC LOW STRENGTH 81 MG TBEC Take one by mouth daily ADULT ASPIRIN EC LOW STRENGTH 81 MG TBEC 767896 ASPIRIN Inactive FUROSEMIDE 40 MG TABS Take one by mouth daily FUROSEMIDE 40 MG TABS 060985 FUROSEMIDE Inactive IPRATROPIUM-ALBUTEROL 0.5-2.5 (3) MG/3ML SOLN 1 neb treatment four times daily , for cough IPRATROPIUM-ALBUTEROL 0.5-2.5 (3) MG/3ML SOLN 4977717 IPRATROPIUM-ALBUTEROL Inactive Advance Directives Directive Description Start Date DURABLE POWER OF EQUIPMENT MAINTENANCE TECH FOR HEALTHCARE PERMISSION TO SHARE ADVANCED [...] mg/dL Encounters Code Encounter Date Provider Facility CPT-01243 Level 3 Est. Patient 11:51:35 CRAFT ARTIST Rick Henson DO [facility] CPT-97632 Level 3 Est. Patient 12:13:33 CRAFT ARTIST Erik Baptiste MD [facility] CPT-62225 Level 3 Est. Patient 09:40:44 CRAFT ARTIST Jaycee Garcia [facility] CPT-92467 Level 3 Est. Patient 09:36:32 CRAFT ARTIST Jaycee Garcia [facility] CPT-25723 Level 4 Est. Patient 16:57:02 CRAFT ARTIST Pelon Quach MD [facility] CPT-88435 Level 4 Est. Patient 22:19:34 CDT Pelon Quach MD [facility] CPT-75756 Level 3 Est. Patient 00:34:41 CDT Pelon Quach MD [facility] CPT-53283 Level 4 Est. Patient 11:19:14 CDT Pelon Quach MD [facility] CPT-04895 Level 4 Est. Patient 16:43:30 CRAFT ARTIST Pelon Quach MD [facility] CPT-81399 Level 4 Est. Patient 12:42:18 CDT Pelon Quach MD [facility] CPT-52616 Level 4 Est. Patient 11:52:20 CDT Pelon Quach MD [facility] CPT-79877 Level 4 Est. Patient 13:59:46 CDT Pelon Quach MD [facility] CPT-08566 Level 4 Est. Patient 15:10:48 CDT Pelon Quach MD [facility] CPT-43776 Level 4 Est. Patient 17:13:06 CDT Pelon Quach MD [facility] CPT-95421 Level 4 Est. Patient 18:47:47 CDT Pelon Quach MD [facility] CPT-95690 Level 3 Est. Patient 21:01:27 CDT Pelon Quach MD [facility] CPT-70150 Level 3 Est. Patient 14:07:03 CDT Taty Alvarado MD PhD [facility] CPT-26896 Level 3 New Patient 21:39:52 CRAFT ARTIST Pelon Quach MD [facility] CPT-00228 Level 3 Est. Patient 14:28:44 CDT Glenn Thornton MD [facility] CPT-20223 Level 3 Est. Patient 16:35:00 CDT Glenn Thornton MD [facility] CPT-04620 Level 4 New Patient 17:06:27 CDT Glenn Thornton MD [facility] [place] Procedures Code Procedure Name Date Entry Date Standard Description CPT-80297 Chest 2V Frontal and Lat - XRAY USE ONLY 11:56:13 CRAFT ARTIST CPT-86421 Cystoscopy 14:28:44 CDT CPT-65106 Bladder Scan 14:28:44 CDT CPT-28717 Indwelling Cath Change 17:06:27 CDT CPT-91050 Cystoscopy 17:06:27 CDT
--- OUTSIDE RECORDS SUMMARY | 2018-06-22 12:02 | XMS REPORT | Clinical Summary ---
Author Author Admin, ONESIMO Organization [facility] [employer] [place] Address Unknown Phone Unavailable Allergies, Adverse Reactions, [...] 6 hours PRN allergic reaction DIPHENHYDRAMINE HCL 01107980678 Active NICOLETTE Hitchcock Active INVEGA 6 MG ORAL [id number] 1 po daily for Schizophrenia PALIPERIDONE [id number] No Longer Active Pelon Quach MD Active TYLENOL 8 HOUR 650 MG ORAL CR-TABS Take 1 tab po up to 3 times daily as needed ACETAMINOPHEN 57904221565 No Longer Active Pelon Quach MD Active IPRATROPIUM-ALBUTEROL 0.5-2.5 (3) MG/3ML INH SOLN 1 neb treatment QID for cough Dx: J06.9 IPRATROPIUM-ALBUTEROL 91257378475 No Longer Active Pelon Quach MD Active BACTRIM DS 800-160 MG TAB 1 tab by mouth twice daily TRIMETHOPRIM-SULFAMETHOXAZOLE 27402369251 No Longer Active Pelon Quach MD Active BACTROBAN 2 % OINTMENT Apply to affected area BID MUPIROCIN 74793822965 Active Jaycee Garcia APRN Active BACTRIM DS 800-160 MG TABS 1 twice a day SULFAMETHOXAZOLE-TRIMETHOPRIM 42691307979 No Longer Active Pelon Quach MD Active IPRATROPIUM-ALBUTEROL 0.5-2.5 (3) MG/3ML SOLN 1 neb treatment four times daily , for cough IPRATROPIUM-ALBUTEROL 65454264217 No Longer Active Jaycee Garcia APRN Active FUROSEMIDE 40 MG TABS Take one by mouth daily FUROSEMIDE 60621245991 No Longer Active Jaycee Garcia APRN Active LANTUS 100 UNIT/ML SC SOLN 20 SUBQ AT HS INSULIN GLARGINE 72678639891 Active Jaycee Garcia APRN Active LAMICTAL 25 MG ORAL TABS 2 tabs po BID for convulsions LAMOTRIGINE 47394445494 Active Jaycee Garcia APRN Active LASIX 20 MG TAB 1 tablet by mouth every morning for edema FUROSEMIDE 37234101534 Active Jaycee Garcia APRN Active BUSPIRONE HCL 10 MG TABS 1 tab by mouth BID BUSPIRONE HCL 73551536073 Active Jaycee Garcia COMPONENT OVERHAUL OPERATOR Active NOVOLOG 100 UNIT/ML SC SOLN 10 UNITS BEFORE SUPPER INSULIN ASPART 68855101019 Active Jaycee Garcia APRN Active NOVOLOG 100 UNIT/ML SC SOLN 10 UNITS BID BEFORE BREAKFAST AND LUNCH INSULIN ASPART 22216692048 Active Jaycee Garcia APRN Active LAMICTAL 25 MG TABS 2 tabs by mouth twice a day LAMOTRIGINE 30428880146 Active Pelon Quach MD Active ADULT ASPIRIN EC LOW STRENGTH 81 MG TBEC Take one by mouth daily ASPIRIN 66379731148 No Longer Active Pelon Quach MD Active ASPIRIN 81 MG ORAL TABS 1 po qd ASPIRIN 77247017590 Active Pelon Quach MD Active ZOFRAN 4 MG TABS 1 po q6hr PRN Nausea ONDANSETRON HCL 10657318816 No Longer Active Pelon Quach MD Active TYLENOL 325 MG TAB 1-2 pills by mouth every 6 hours if needed for pain/fever ACETAMINOPHEN 49938409959 No Longer Active Pelon Quach MD Active INVEGA 6 MG ORAL [id number] 1 TAB ONCE DAILY PALIPERIDONE 43564254086 No Longer Active Carly Suggs Active TEGRETOL 200 MG TABS by mouth twice a day CARBAMAZEPINE 63484561600 Active Taty Alvarado MD PhD Active FLOMAX 0.4 MG CAPS 1 Daily TAMSULOSIN HCL 04243803642 Active Marianela Juarez Active DILANTIN 100 MG CAPS Take one by mouth daily PHENYTOIN SODIUM EXTENDED 34765873438 No Longer Active Marianela Juarez Active DEPAKOTE SPRINKLES 125 MG CPSP 4 capsules by mouth twice daily DIVALPROEX SODIUM 14507223478 No Longer Active Marianela Juarez Active LAMICTAL 200 MG ORAL TABS 1 BY MOUTH TWICE A DAY LAMOTRIGINE 60637200088 Active Marianela Juarez Active LAMICTAL 100 MG TABS by mouth twice a day LAMOTRIGINE 68990518954 No Longer Active Marianela Juarez Active LAMICTAL 150 MG TABS by mouth twice a day LAMOTRIGINE 55831512788 No Longer Active Marianela Juarez Active DILANTIN 100 MG CAPS Take three by mouth daily PHENYTOIN SODIUM EXTENDED 79909160933 No Longer Active Marianela Shankarronny Active SENOKOT 8.6 MG TABS take at bedtime SENNOSIDES 80202671244 Active Glenn Thornton MD Active LIPITOR 20 MG TABS take at bedtime ATORVASTATIN CALCIUM 02027881789 Active Glenn Thornton MD Active LISINOPRIL 2.5 MG TABS Take one by mouth daily LISINOPRIL 51114642192 Active Glenn Thornton MD Active TRENTAL 400 MG CR-TABS by mouth twice a day PENTOXIFYLLINE 36372214929 Active Glenn Thornton MD Active KLOR-CON 10 10 MEQ CR-TABS Take one by mouth daily POTASSIUM CHLORIDE 77244417916 Active Glenn Thornton MD Active DILANTIN 100 MG CAPS Take three by mouth daily DILANTIN 100 MG CAPS 582412 PHENYTOIN SODIUM EXTENDED Inactive LAMICTAL 150 MG TABS by mouth twice a day LAMICTAL 150 MG TABS 179254 LAMOTRIGINE Inactive LAMICTAL 100 MG TABS by mouth twice a day LAMICTAL 100 MG TABS 19831024 LAMOTRIGINE Inactive DEPAKOTE SPRINKLES 125 MG CPSP 4 capsules by mouth twice daily DEPAKOTE SPRINKLES 125 MG CPSP 3709122 DIVALPROEX SODIUM Inactive DILANTIN 100 MG CAPS Take one by mouth daily DILANTIN 100 MG CAPS 429242 PHENYTOIN SODIUM EXTENDED Inactive INVEGA 6 MG ORAL [id number] 1 TAB ONCE DAILY INVEGA 6 MG ORAL [id number] PALIPERIDONE Inactive TYLENOL 325 MG TAB 1-2 pills by mouth every 6 hours if needed for pain/fever TYLENOL 325 MG TAB 772987 ACETAMINOPHEN Inactive ZOFRAN 4 MG TABS 1 po q6hr PRN Nausea ZOFRAN 4 MG TABS 158232 ONDANSETRON HCL Inactive ADULT ASPIRIN EC LOW STRENGTH 81 MG TBEC Take one by mouth daily ADULT ASPIRIN EC LOW STRENGTH 81 MG TBEC 881273 ASPIRIN Inactive FUROSEMIDE 40 MG TABS Take one by mouth daily FUROSEMIDE 40 MG TABS 338946 FUROSEMIDE Inactive BACTRIM DS 800-160 MG TABS 1 twice a day BACTRIM DS 800-160 MG TABS 996284 SULFAMETHOXAZOLE-TRIMETHOPRIM Inactive IPRATROPIUM-ALBUTEROL 0.5-2.5 (3) MG/3ML INH SOLN 1 neb treatment QID for cough Dx: J06.9 IPRATROPIUM-ALBUTEROL 0.5-2.5 (3) MG/ 3ML INH SOLN 8725791 IPRATROPIUM-ALBUTEROL Inactive TYLENOL 8 HOUR 650 MG ORAL CR-TABS Take 1 tab po up to 3 times daily as needed TYLENOL 8 HOUR 650 MG ORAL CR-TABS ACETAMINOPHEN Inactive INVEGA 6 MG ORAL [id number] 1 po daily for Schizophrenia INVEGA 6 MG ORAL [id number] PALIPERIDONE Inactive IPRATROPIUM-ALBUTEROL 0.5-2.5 (3) MG/3ML SOLN 1 neb treatment four times daily , for cough IPRATROPIUM-ALBUTEROL 0.5-2.5 (3) MG/3ML SOLN 8282734 IPRATROPIUM-ALBUTEROL Inactive BACTRIM DS 800-160 MG TAB 1 tab by mouth twice daily BACTRIM DS 800-160 MG TAB 19821119 TRIMETHOPRIM-SULFAMETHOXAZOLE Inactive Advance Directives Directive Description Start Date DURABLE POWER OF ASSISTED LIVING ADMINISTRATOR FOR HEALTHCARE PERMISSION TO SHARE ADVANCED [...] Panel - Chemistry sodium, serum 127 mmol/L 705-087 3561/07/28 potassium, serum 5.3 mmol/L 3.5-5.2 chloride, serum 92 mmol/L 98-107 carbon dioxide, venous blood 32.4 mmol/L 21.0-32.0 blood glucose 182 mg/dL 65-110 calcium, serum 9.4 mg/dL 8.5-10.1 urea nitrogen, blood 14 mg/dL 7-18 creatinine, serum 0.94 mg/dL 0.60-1.30 Lab Report: CBC, Comp. Metabolic Panel - Chemistry sodium, serum 129 mmol/L 772-124 7205/07/12 carbon dioxide, venous blood 27.8 mmol/L 21.0-32.0 [...] mg/dL Encounters Code Encounter Date Provider Facility CPT-71748 Level 4 Est. Patient 08:43:11 CDT Pelon Quach MD [facility] CPT-23062 Level 4 Est. Patient 14:27:30 CDT Pelon Quach MD [facility] CPT-93593 Level 3 Est. Patient 10:32:17 CDT Jaycee Garcia Formerly named [facility] CPT-55767 Level 3 Est. Patient 10:15:07 CDT Pelon Quach MD [facility] CPT-05314 Level 4 Est. Patient 09:30:54 CDT Pelon Quach MD [facility] CPT-00699 Level 4 Est. Patient 14:34:25 CDT Pelon Quach MD [facility] CPT-47476 Level 3 Est. Patient 11:51:35 REAL ESTATE SALES AGENT Rick Henson DO [facility] CPT-27414 Level 3 Est. Patient 12:13:33 REAL ESTATE SALES AGENT Erik Baptiste MD [facility] CPT-63139 Level 3 Est. Patient 09:40:44 REAL ESTATE SALES AGENT Jaycee Garcia Formerly named [facility] CPT-60503 Level 3 Est. Patient 09:36:32 REAL ESTATE SALES AGENT Jaycee Garcia Formerly named [facility] CPT-58501 Level 4 Est. Patient 16:57:02 REAL ESTATE SALES AGENT Pelon Quach MD [facility]-72475 Level 4 Est. Patient 22:19:34 CDT Pelon Quach MD [facility]-32072 Level 3 Est. Patient 00:34:41 CDT Pelon Quach MD [facility]-06013 Level 4 Est. Patient 11:19:14 CDT Pelon Quach MD [facility]-12886 Level 4 Est. Patient 16:43:30 REAL ESTATE SALES AGENT Pelon Quach MD [facility]-74876 Level 4 Est. Patient 12:42:18 CDT Pelon Quach MD [facility]-86561 Level 4 Est. Patient 11:52:20 CDT Pelon Quach MD [facility]-83921 Level 4 Est. Patient 13:59:46 CDT Pelon Quach MD [facility]-36280 Level 4 Est. Patient 15:10:48 CDT Pelon Quach MD [facility]-76009 Level 4 Est. Patient 17:13:06 CDT Pelon Quach MD [facility]-04956 Level 4 Est. Patient 18:47:47 CDT Pelon Quach MD [facility]-51985 Level 3 Est. Patient 21:01:27 CDT Pelon Quach MD [facility] CPT-30582 Level 3 Est. Patient 14:07:03 CDT Taty Alvarado MD PhD [facility]-31944 Level 3 New Patient 21:39:52 REAL ESTATE SALES AGENT Pelon Quach MD [facility]-43311 Level 3 Est. Patient 14:28:44 CDT Glenn Thornton MD [facility]-92733 Level 3 Est. Patient 16:35:00 CDT Glenn Thornton MD [facility] [place] CPT-74946 Level 4 New Patient 17:06:27 CDT Glenn Thornton MD [facility] [place] Procedures Code Procedure Name Date Entry Date Standard Description CPT-G0438 Initial Annual Wellness Exam 09:30:54 CDT CPT-85385 Prevnar 13 Intramuscular Suspension 14:34:25 CDT 12/27 CPT-64851 Chest 2V Frontal and Lat - XRAY USE ONLY 11:56:13 REAL ESTATE SALES AGENT CPT-02559 Cystoscopy 14:28:44 CDT CPT-72088 Bladder Scan 14:28:44 CDT CPT-63337 Indwelling Cath Change 17:06:27 CDT CPT-34424 Cystoscopy 17:06:27 CDT
--- OUTSIDE RECORDS SUMMARY | 2018-06-22 12:03 | XMS REPORT | Clinical Summary ---
Author Author Admin, ONESIMO Organization [facility] [place] Address Unknown Phone Unavailable Allergies, Adverse Reactions, [...] (nonthermal), right great toe, sequela ICD-906.2 Inactive Pelno Quach MD Confusion ICD-298.9 Inactive Pelon Quach MD URI - acute ICD-465.9 Inactive Erik Baptiste MD Medication List Medication Instructions Start Date Stop Date Generic Name NDC Status Provider Patient Instruction CYCLOBENZAPRINE HCL 10 MG ORAL TABLET 1 tablet by mouth two times daily as needed for muscle spasm/pain CYCLOBENZAPRINE HCL 26489239375 Active Pelon Quach MD Active BENADRYL 25 MG ORAL CAPSULE 1 po q8hr PRN Congestion DIPHENHYDRAMINE HCL 31838496624 Active Pelon Quach MD Active ZOFRAN 4 MG ORAL TABLET 1 po q6hr PRN Nausea ONDANSETRON HCL 97016532754 Active Pelon Quach MD Active IMODIUM A-D 2 MG ORAL TABLET One QID prn diarrhea. No more than 4 tabs daily LOPERAMIDE HCL 13932675057 Active Pelon Quach MD Active TYLENOL 325 MG ORAL TABLET 2 tabs po prn for pain elevated temp ACETAMINOPHEN 81856009575 Active Pelon Quach MD Active MUCINEX D 60-600 MG ORAL TABLET EXTENDED RELEASE 12 HOUR 1 po BID PRN Congestion PSEUDOEPHEDRINE-GUAIFENESIN 91078844149 Active Pelon Quach MD Active IBUPROFEN 200 MG ORAL TABLET q 6hrs prn pain IBUPROFEN 24507841078 Active Pelon Quach MD Active LORATADINE 10 MG ORAL TABLET 1 tablet by mouth daily prn LORATADINE 40010526624 Active Pelon Quach MD Active BANOPHEN 25 MG ORAL TABLET 1 po every 6 hours PRN allergic reaction DIPHENHYDRAMINE HCL 29326067513 No Longer Active Pelon Quach MD Active EASY TOUCH ALCOHOL PREP MEDIUM 70 % PAD Use with each finger stick and insulin admin Dx: E11.9 ALCOHOL SWABS 62429960890 Active Jaycee Torrez APRN Active HUMALOG KWIKPEN 100 UNIT/ML SUBCUTANEOUS SOLUTION PEN-INJECTOR inject 10 units subcutaneously before meals also sliding scale INSULIN LISPRO 11551854509 Active Pelon Quach MD Active NOVOLOG 100 UNIT/ML SUBCUTANEOUS SOLUTION 10 UNITS BID BEFORE BREAKFAST AND LUNCH INSULIN ASPART 28508077860 No Longer Active NICOLETTE Hitchcock Active NOVOLOG 100 UNIT/ML SUBCUTANEOUS SOLUTION 10 UNITS BEFORE SUPPER INSULIN ASPART 88567420383 No Longer Active NICOLETTE Hitchcock Active INVEGA 6 MG ORAL TABLET EXTENDED RELEASE 24 HOUR 1 po daily for schizophrenia PALIPERIDONE 23908838456 Active Pelon Quach MD Active LAMICTAL 25 MG ORAL TABLET 2 tabs by mouth twice a day LAMOTRIGINE 40673987635 No Longer Active Pelon Quach MD Active BACTROBAN 2 % EXTERNAL OINTMENT Apply to affected area BID 06/28 MUPIROCIN 78699181716 No Longer Active Pelon Quach MD Active INVEGA 6 MG ORAL TABLET EXTENDED RELEASE 24 HOUR 1 po daily for Schizophrenia PALIPERIDONE 77122885676 No Longer Active Pelon Quach MD Active TYLENOL 8 HOUR 650 MG ORAL TABLET EXTENDED RELEASE Take 1 tab po up to 3 times daily as needed ACETAMINOPHEN 63484042499 No Longer Active Pelon Quach MD Active IPRATROPIUM-ALBUTEROL 0.5-2.5 (3) MG/3ML INHALATION SOLUTION 1 neb treatment QID for cough Dx: J06.9 IPRATROPIUM-ALBUTEROL 18386811355 No Longer Active Pelon Quach MD Active BACTRIM DS 800-160 MG ORAL TABLET 1 tab by mouth twice daily 2016 TRIMETHOPRIM-SULFAMETHOXAZOLE 22679448167 No Longer Active Pelon Quach MD Active BACTRIM DS 800-160 MG ORAL TABLET 1 twice a day SULFAMETHOXAZOLE-TRIMETHOPRIM 28499363199 No Longer Active Pelon Quach MD Active IPRATROPIUM-ALBUTEROL 0.5-2.5 (3) MG/3ML INHALATION SOLUTION 1 neb treatment four times daily, for cough IPRATROPIUM-ALBUTEROL 06587295284 No Longer Active Jaycee Torrez APRN Active FUROSEMIDE 40 MG ORAL TABLET Take one by mouth daily FUROSEMIDE 62404003465 No Longer Active Jaycee Torrez APRN Active LANTUS 100 UNIT/ML SUBCUTANEOUS SOLUTION 20 SUBQ AT HS INSULIN GLARGINE 06848703381 Active Pelon Quach MD Active LAMICTAL 25 MG ORAL TABLET 2 tabs po BID for convulsions LAMOTRIGINE 96119605429 Active Jaycee Torrez APRN Active LASIX 20 MG ORAL TABLET 1 tablet by mouth every morning for edema FUROSEMIDE 18612284962 Active Jaycee Arell REVIEW TRAINER Active BUSPIRONE HCL 10 MG ORAL TABLET 1 tab by mouth BID BUSPIRONE HCL 16861836742 Active Jaycee Juan Davidll REVIEW TRAINER Active ADULT ASPIRIN EC LOW STRENGTH 81 MG ORAL TABLET DELAYED RELEASE Take one by mouth daily ASPIRIN 21967955951 No Longer Active Pelon Quach MD Active ASPIRIN 81 MG ORAL TABLET 1 po qd ASPIRIN 32951705701 Active Pelon Quach MD Active ZOFRAN 4 MG ORAL TABLET 1 po q6hr PRN Nausea ONDANSETRON HCL 35993728879 No Longer Active Pelon Quach MD Active TYLENOL 325 MG ORAL TABLET 1-2 pills by mouth every 6 hours if needed for pain /fever ACETAMINOPHEN 62560361837 No Longer Active Pelon Quach MD Active INVEGA 6 MG ORAL TABLET EXTENDED RELEASE 24 HOUR 1 TAB ONCE DAILY PALIPERIDONE 89673486453 No Longer Active Carly Suggs Active TEGRETOL 200 MG ORAL TABLET by mouth twice a day CARBAMAZEPINE 11203863680 Active Taty Alvarado MD PhD Active FLOMAX 0.4 MG ORAL CAPSULE 1 Daily TAMSULOSIN HCL 46724598027 Active Marianela Juarez Active DILANTIN 100 MG ORAL CAPSULE Take one by mouth daily PHENYTOIN SODIUM EXTENDED 15024067837 No Longer Active Marianela Juarez Active DEPAKOTE SPRINKLES 125 MG ORAL CAPSULE DELAYED RELEASE SPRINKLE 4 capsules by mouth twice daily DIVALPROEX SODIUM 83421794027 No Longer Active Marianelachandrika Juarez Active LAMICTAL 200 MG ORAL TABLET 1 BY MOUTH TWICE A DAY LAMOTRIGINE 60546141883 Active Marianela Raida Active LAMICTAL 100 MG ORAL TABLET by mouth twice a day LAMOTRIGINE 00831878596 No Longer Active Marianelachandrika Juarez Active LAMICTAL 150 MG ORAL TABLET by mouth twice a day LAMOTRIGINE 40037271715 No Longer Active Marianela Raida Active DILANTIN 100 MG ORAL CAPSULE Take three by mouth daily PHENYTOIN SODIUM EXTENDED 80586018481 No Longer Active Marianela Shankarronny Active SENOKOT 8.6 MG ORAL TABLET take at bedtime SENNOSIDES 12508278961 Active Pelon Quach MD Active LIPITOR 20 MG ORAL TABLET take at bedtime ATORVASTATIN CALCIUM 53900480716 Active Glenn Thornton MD Active LISINOPRIL 2.5 MG ORAL TABLET Take one by mouth daily LISINOPRIL 66652155672 Active Glenn Thornton MD Active TRENTAL 400 MG CR-TABS by mouth twice a day PENTOXIFYLLINE 52967122891 Active Glenn Thornton MD Active KLOR-CON 10 10 MEQ ORAL TABLET EXTENDED RELEASE Take one by mouth daily POTASSIUM CHLORIDE 36802182663 Active Glenn Thornton MD Active DILANTIN 100 MG ORAL CAPSULE Take three by mouth daily DILANTIN 100 MG ORAL CAPSULE 014538 PHENYTOIN SODIUM EXTENDED Inactive LAMICTAL 150 MG ORAL TABLET by mouth twice a day LAMICTAL 150 MG ORAL TABLET 149578 LAMOTRIGINE Inactive LAMICTAL 100 MG ORAL TABLET by mouth twice a day LAMICTAL 100 MG ORAL TABLET 299016 LAMOTRIGINE Inactive DEPAKOTE SPRINKLES 125 MG ORAL CAPSULE DELAYED RELEASE SPRINKLE 4 capsules by mouth twice daily DEPAKOTE SPRINKLES 125 MG ORAL CAPSULE DELAYED RELEASE SPRINKLE 9286809 DIVALPROEX SODIUM Inactive DILANTIN 100 MG ORAL CAPSULE Take one by mouth daily DILANTIN 100 MG ORAL CAPSULE 957968 PHENYTOIN SODIUM EXTENDED Inactive INVEGA 6 MG ORAL TABLET EXTENDED RELEASE 24 HOUR 1 TAB ONCE DAILY INVEGA 6 MG ORAL TABLET EXTENDED RELEASE 24 HOUR PALIPERIDONE Inactive TYLENOL 325 MG ORAL TABLET 1-2 pills by mouth every 6 hours if needed for pain /fever TYLENOL 325 MG ORAL TABLET 380252 ACETAMINOPHEN Inactive ZOFRAN 4 MG ORAL TABLET 1 po q6hr PRN Nausea ZOFRAN 4 MG ORAL TABLET 984455 ONDANSETRON HCL Inactive ADULT ASPIRIN EC LOW STRENGTH 81 MG ORAL TABLET DELAYED RELEASE Take one by mouth daily ADULT ASPIRIN EC LOW STRENGTH 81 MG ORAL TABLET DELAYED RELEASE 949237 ASPIRIN Inactive FUROSEMIDE 40 MG ORAL TABLET Take one by mouth daily FUROSEMIDE 40 MG ORAL TABLET 306563 FUROSEMIDE Inactive BACTRIM DS 800-160 MG ORAL TABLET 1 twice a day BACTRIM DS 800-160 MG ORAL TABLET 246267 SULFAMETHOXAZOLE-TRIMETHOPRIM Inactive IPRATROPIUM-ALBUTEROL 0.5-2.5 (3) MG/3ML INHALATION SOLUTION 1 neb treatment QID for cough Dx: J06.9 IPRATROPIUM-ALBUTEROL 0.5-2.5 ( 3) MG/3ML INHALATION SOLUTION 3364140 IPRATROPIUM-ALBUTEROL Inactive TYLENOL 8 HOUR 650 MG [...] a day LAMICTAL 25 MG ORAL TABLET 937467 LAMOTRIGINE Inactive NOVOLOG 100 UNIT/ML SUBCUTANEOUS SOLUTION 10 UNITS BEFORE SUPPER NOVOLOG 100 UNIT/ML SUBCUTANEOUS SOLUTION INSULIN ASPART Inactive NOVOLOG 100 UNIT/ML SUBCUTANEOUS SOLUTION 10 UNITS BID BEFORE BREAKFAST AND LUNCH NOVOLOG 100 UNIT/ML SUBCUTANEOUS SOLUTION INSULIN ASPART Inactive BANOPHEN 25 MG ORAL TABLET 1 po every 6 hours PRN allergic reaction BANOPHEN 25 MG ORAL TABLET 8929474 DIPHENHYDRAMINE HCL Inactive IPRATROPIUM-ALBUTEROL 0.5-2.5 (3) MG/3ML INHALATION SOLUTION 1 neb treatment four times daily, for cough IPRATROPIUM-ALBUTEROL 0.5- 2.5 (3) MG/3ML INHALATION SOLUTION 8540583 IPRATROPIUM-ALBUTEROL Inactive BACTRIM DS 800-160 MG ORAL TABLET 1 tab by mouth twice daily 2016 BACTRIM DS 800-160 MG ORAL TABLET 155576 TRIMETHOPRIM- SULFAMETHOXAZOLE Inactive Advance Directives Directive Description Start Date DURABLE POWER OF STORE STOCKER FOR HEALTHCARE PERMISSION TO SHARE ADVANCED DIRECTIVE Vital Signs Date Name Value Unit Range Description blood pressure, diastolic 67 mm[Hg] BP daly [...] HGBA1C - Chemistry sodium, serum 123 mmol/L 568-301 5251/04/25 carbon dioxide, venous blood 26.2 mmol/L 21.0-32.0 [...] 4.3-6.0 Lab Report: Comp. Metabolic Panel, CBC, [facility] - Hematology leukocyte count, blood 4.4 10^3/MM^3 [...] count 331 10^3/MM^3 10*3/mm3 142-424 Lab Report: [facility] - Chemistry hemoglobin A1C, blood, as % [...] serum, target level 35 mg/dL Office Visit: SHOULDER/NECK PAIN, FEELS LIKE BLADDER NOT EMPTYING - Basic LDL target level 100 mg/dL Office Visit: SHOULDER/NECK PAIN, FEELS LIKE BLADDER NOT EMPTYING - Chemistry cholesterol, target level 200 mg/dL triglyceride, target level 200 mg/dL HDL cholesterol, serum, target level 35 mg/dL Encounters Code Encounter Date Provider Facility CPT-64321 [id number] Vst-Est Level IV 10:45:13 CDT Pelon Quach MD [facility] CPT-04575 [id number] Vst-Est Level IV 13:48:14 CDT Pelon Quach MD [facility] CPT-01468 [id number] Vst-Est Level II 13:40:42 CDT Pelon Quach MD [facility] CPT-13341 [id number] Vst-Est Level III 13:36:24 CDT Pelon Quach MD [facility]-98295 Level 4 Est. Patient 18:11:18 CDT Pelon Quach MD [facility] CPT-75810 Level 4 Est. Patient 14:46:38 CDT Pelon Quach MD [facility]-69627 Level 4 Est. Patient 08:43:11 CDT Pelon Quach MD [facility] CPT-99669 Level 4 Est. Patient 14:27:30 CDT Pelon Quach MD [facility]-20688 Level 3 Est. Patient 10:32:17 CDT Jaycee Torrez [facility] [place]-45330 Level 3 Est. Patient 10:15:07 CDT Pelon Quach MD [facility] CPT-84022 Level 4 Est. Patient 09:30:54 CDT Pelon Quach MD [facility]-13759 Level 4 Est. Patient 14:34:25 CDT Pelon Quach MD [facility] CPT-15132 Level 3 Est. Patient 11:51:35 REAL ESTATE REP Rick Henson DO [facility] CPT-44691 Level 3 Est. Patient 12:13:33 REAL ESTATE REP Erik Baptiste MD [facility] CPT-24007 Level 3 Est. Patient 09:40:44 REAL ESTATE REP Jaycee Torrez [facility] CPT-03653 Level 3 Est. Patient 09:36:32 REAL ESTATE REP Jaycee Torrez [facility] CPT-53205 Level 4 Est. Patient 16:57:02 REAL ESTATE REP Pelon Quach MD [facility]-48254 Level 4 Est. Patient 22:19:34 CDT Pelon Quach MD [facility]-70729 Level 3 Est. Patient 00:34:41 CDT Pelon Quach MD [facility] CPT-99993 Level 4 Est. Patient 11:19:14 CDT Pelon Quach MD [facility] CPT-82660 Level 4 Est. Patient 16:43:30 REAL ESTATE REP Pelon Quach MD [facility] CPT-58300 Level 4 Est. Patient 12:42:18 CDT Pelon Quach MD [facility] CPT-79958 Level 4 Est. Patient 11:52:20 CDT Pelon Quach MD [facility] CPT-38548 Level 4 Est. Patient 13:59:46 CDT Pelon Quach MD [facility] CPT-74199 Level 4 Est. Patient 15:10:48 CDT Pelon Quach MD [facility] CPT-11048 Level 4 Est. Patient 17:13:06 CDT Pelon Quach MD [facility] CPT-70089 Level 4 Est. Patient 18:47:47 CDT Pelon Quach MD [facility] CPT-94257 Level 3 Est. Patient 21:01:27 CDT Pelon Quach MD [facility] CPT-87480 Level 3 Est. Patient 14:07:03 CDT Taty Alvarado MD PhD [facility] CPT-01197 Level 3 New Patient 21:39:52 REAL ESTATE REP Pelon Quach MD [facility] CPT-28238 Level 3 Est. Patient 14:28:44 CDT Glenn Thornton MD [facility] CPT-54425 Level 3 Est. Patient 16:35:00 CDT Glenn Thornton MD [facility] CPT-91173 Level 4 New Patient 17:06:27 CDT Glenn Thornton MD [facility] [place] Procedures Code Procedure Name Date Entry Date Standard Description CPT-62060 Shoulder, right, comp min 2V - XRAY USE ONLY 10:47:10 CDT CPT-G0439 Subsequent Annual Wellness Exam 18:11:17 CDT CPT-G0438 Initial Annual Wellness Exam 09:30:54 CDT CPT-52515 Prevnar 13 Intramuscular Suspension 14:34:25 CDT 12/27 CPT-62626 Chest 2V Frontal and Lat - XRAY USE ONLY 11:56:13 REAL ESTATE REP CPT-79635 Cystoscopy 14:28:44 CDT CPT-30960 Bladder Scan 14:28:44 CDT CPT-33939 Indwelling Cath Change 17:06:27 CDT CPT-36830 Cystoscopy 17:06:27 CDT
--- OUTSIDE RECORDS SUMMARY | 2018-06-22 12:04 | XMS REPORT | Clinical Summary ---
Author Author Admin, ONESIMO Organization [facility] [place] Address Unknown Phone Unavailable Allergies, Adverse Reactions, [...] as needed for muscle spasm/pain CYCLOBENZAPRINE HCL 80419416289 Active Pelon Quach MD Active BENADRYL 25 MG ORAL CAPSULE 1 po q8hr PRN Congestion DIPHENHYDRAMINE HCL 49933429497 Active Pelon Quach MD Active ZOFRAN 4 MG ORAL TABLET 1 po q6hr PRN Nausea ONDANSETRON HCL 33852125321 Active Pelon Quach MD Active IMODIUM A-D 2 MG ORAL TABLET One QID prn diarrhea. No more than 4 tabs daily LOPERAMIDE HCL 67049329227 Active Pelon Quach MD Active TYLENOL 325 MG ORAL TABLET 2 tabs po prn for pain elevated temp ACETAMINOPHEN 09977409494 Active Pelon Quach MD Active MUCINEX D 60-600 MG ORAL TABLET EXTENDED RELEASE 12 HOUR 1 po BID PRN Congestion PSEUDOEPHEDRINE-GUAIFENESIN 16483366204 Active Pelon Quach MD Active IBUPROFEN 200 MG ORAL TABLET q 6hrs prn pain IBUPROFEN 99542938423 Active Pelon Quach MD Active LORATADINE 10 MG ORAL TABLET 1 tablet by mouth daily prn LORATADINE 31716981407 Active Pelon Quach MD Active BANOPHEN 25 MG ORAL TABLET 1 po every 6 hours PRN allergic reaction DIPHENHYDRAMINE HCL 53524038359 No Longer Active Pelon Quach MD Active EASY TOUCH ALCOHOL PREP MEDIUM 70 % PAD Use with each finger stick and insulin admin Dx: E11.9 ALCOHOL SWABS 86887702854 Active Jaycee Torrez APRN Active HUMALOG KWIKPEN 100 UNIT/ML SUBCUTANEOUS SOLUTION PEN-INJECTOR inject 10 units subcutaneously before meals also sliding scale INSULIN LISPRO 07439814655 Active Pelon Quach MD Active NOVOLOG 100 UNIT/ML SUBCUTANEOUS SOLUTION 10 UNITS BID BEFORE BREAKFAST AND LUNCH INSULIN ASPART 50144817597 No Longer Active NICOLETTE Hitchcock Active NOVOLOG 100 UNIT/ML SUBCUTANEOUS SOLUTION 10 UNITS BEFORE SUPPER INSULIN ASPART 22303188634 No Longer Active NICOLETTE Hitchcock Active INVEGA 6 MG ORAL TABLET EXTENDED RELEASE 24 HOUR 1 po daily for schizophrenia PALIPERIDONE 34595917342 Active Pelon Quach MD Active LAMICTAL 25 MG ORAL TABLET 2 tabs by mouth twice a day LAMOTRIGINE 12390778747 No Longer Active Pelon Quach MD Active BACTROBAN 2 % EXTERNAL OINTMENT Apply to affected area BID 06/28 MUPIROCIN 15292056713 No Longer Active Pelon Quach MD Active INVEGA 6 MG ORAL TABLET EXTENDED RELEASE 24 HOUR 1 po daily for Schizophrenia PALIPERIDONE 60609802342 No Longer Active Pelon Quach MD Active TYLENOL 8 HOUR 650 MG ORAL TABLET EXTENDED RELEASE Take 1 tab po up to 3 times daily as needed ACETAMINOPHEN 33024056424 No Longer Active Pelon Quach MD Active IPRATROPIUM-ALBUTEROL 0.5-2.5 (3) MG/3ML INHALATION SOLUTION 1 neb treatment QID for cough Dx: J06.9 IPRATROPIUM-ALBUTEROL 94186559449 No Longer Active Pelon Quach MD Active BACTRIM DS 800-160 MG ORAL TABLET 1 tab by mouth twice daily 2016 TRIMETHOPRIM-SULFAMETHOXAZOLE 21748021822 No Longer Active Pelon Quach MD Active BACTRIM DS 800-160 MG ORAL TABLET 1 twice a day SULFAMETHOXAZOLE-TRIMETHOPRIM 39740082841 No Longer Active Pelon Quach MD Active IPRATROPIUM-ALBUTEROL 0.5-2.5 (3) MG/3ML INHALATION SOLUTION 1 neb treatment four times daily, for cough IPRATROPIUM-ALBUTEROL 10431664575 No Longer Active Jaycee Torrez APRN Active FUROSEMIDE 40 MG ORAL TABLET Take one by mouth daily FUROSEMIDE 85173881650 No Longer Active Jaycee Torrez APRN Active LANTUS 100 UNIT/ML SUBCUTANEOUS SOLUTION 20 SUBQ AT HS INSULIN GLARGINE 45924323407 Active Pelon Quach MD Active LAMICTAL 25 MG ORAL TABLET 2 tabs po BID for convulsions LAMOTRIGINE 65575369603 Active Jaycee Torrez APRN Active LASIX 20 MG ORAL TABLET 1 tablet by mouth every morning for edema FUROSEMIDE 62511078431 Active Jaycee Arell INDIRECT SALES REPRESENTATIVE Active BUSPIRONE HCL 10 MG ORAL TABLET 1 tab by mouth BID BUSPIRONE HCL 12805270230 Active Jaycee Juan Davidll INDIRECT SALES REPRESENTATIVE Active ADULT ASPIRIN EC LOW STRENGTH 81 MG ORAL TABLET DELAYED RELEASE Take one by mouth daily ASPIRIN 65047231329 No Longer Active Pelon Quach MD Active ASPIRIN 81 MG ORAL TABLET 1 po qd ASPIRIN 58097984150 Active Pelon Quach MD Active ZOFRAN 4 MG ORAL TABLET 1 po q6hr PRN Nausea ONDANSETRON HCL 52245825645 No Longer Active Pelon Quach MD Active TYLENOL 325 MG ORAL TABLET 1-2 pills by mouth every 6 hours if needed for pain /fever ACETAMINOPHEN 62355103490 No Longer Active Pelon Quach MD Active INVEGA 6 MG ORAL TABLET EXTENDED RELEASE 24 HOUR 1 TAB ONCE DAILY PALIPERIDONE 49072965267 No Longer Active Carly Suggs Active TEGRETOL 200 MG ORAL TABLET by mouth twice a day CARBAMAZEPINE 60099353783 Active Taty Alvarado MD PhD Active FLOMAX 0.4 MG ORAL CAPSULE 1 Daily TAMSULOSIN HCL 96253047070 Active Marianela Juarez Active DILANTIN 100 MG ORAL CAPSULE Take one by mouth daily PHENYTOIN SODIUM EXTENDED 16043673036 No Longer Active Marianela Juarez Active DEPAKOTE SPRINKLES 125 MG ORAL CAPSULE DELAYED RELEASE SPRINKLE 4 capsules by mouth twice daily DIVALPROEX SODIUM 24286834192 No Longer Active Marianelachandrika Juarez Active LAMICTAL 200 MG ORAL TABLET 1 BY MOUTH TWICE A DAY LAMOTRIGINE 16026835412 Active Marianela Raida Active LAMICTAL 100 MG ORAL TABLET by mouth twice a day LAMOTRIGINE 08381989458 No Longer Active Marianelachandrika Juarez Active LAMICTAL 150 MG ORAL TABLET by mouth twice a day LAMOTRIGINE 91911883850 No Longer Active Marianela Raida Active DILANTIN 100 MG ORAL CAPSULE Take three by mouth daily PHENYTOIN SODIUM EXTENDED 88520037065 No Longer Active Marianela Shankarronny Active SENOKOT 8.6 MG ORAL TABLET take at bedtime SENNOSIDES 81652455370 Active Pelon Quach MD Active LIPITOR 20 MG ORAL TABLET take at bedtime ATORVASTATIN CALCIUM 03944411048 Active Glenn Thornton MD Active LISINOPRIL 2.5 MG ORAL TABLET Take one by mouth daily LISINOPRIL 05700691034 Active Glenn Thornton MD Active TRENTAL 400 MG CR-TABS by mouth twice a day PENTOXIFYLLINE 97706956331 Active Glenn Thornton MD Active KLOR-CON 10 10 MEQ ORAL TABLET EXTENDED RELEASE Take one by mouth daily POTASSIUM CHLORIDE 35046116796 Active Glenn Thornton MD Active DILANTIN 100 MG ORAL CAPSULE Take three by mouth daily DILANTIN 100 MG ORAL CAPSULE 065965 PHENYTOIN SODIUM EXTENDED Inactive LAMICTAL 150 MG ORAL TABLET by mouth twice a day LAMICTAL 150 MG ORAL TABLET 123774 LAMOTRIGINE Inactive LAMICTAL 100 MG ORAL TABLET by mouth twice a day LAMICTAL 100 MG ORAL TABLET 666168 LAMOTRIGINE Inactive DEPAKOTE SPRINKLES 125 MG ORAL CAPSULE DELAYED RELEASE SPRINKLE 4 capsules by mouth twice daily DEPAKOTE SPRINKLES 125 MG ORAL CAPSULE DELAYED RELEASE SPRINKLE 3313160 DIVALPROEX SODIUM Inactive DILANTIN 100 MG ORAL CAPSULE Take one by mouth daily DILANTIN 100 MG ORAL CAPSULE 727769 PHENYTOIN SODIUM EXTENDED Inactive INVEGA 6 MG ORAL TABLET EXTENDED RELEASE 24 HOUR 1 TAB ONCE DAILY INVEGA 6 MG ORAL TABLET EXTENDED RELEASE 24 HOUR PALIPERIDONE Inactive TYLENOL 325 MG ORAL TABLET 1-2 pills by mouth every 6 hours if needed for pain /fever TYLENOL 325 MG ORAL TABLET 573604 ACETAMINOPHEN Inactive ZOFRAN 4 MG ORAL TABLET 1 po q6hr PRN Nausea ZOFRAN 4 MG ORAL TABLET 651141 ONDANSETRON HCL Inactive ADULT ASPIRIN EC LOW STRENGTH 81 MG ORAL TABLET DELAYED RELEASE Take one by mouth daily ADULT ASPIRIN EC LOW STRENGTH 81 MG ORAL TABLET DELAYED RELEASE 318885 ASPIRIN Inactive FUROSEMIDE 40 MG ORAL TABLET Take one by mouth daily FUROSEMIDE 40 MG ORAL TABLET 510771 FUROSEMIDE Inactive BACTRIM DS 800-160 MG ORAL TABLET 1 twice a day BACTRIM DS 800-160 MG ORAL TABLET 843260 SULFAMETHOXAZOLE-TRIMETHOPRIM Inactive IPRATROPIUM-ALBUTEROL 0.5-2.5 (3) MG/3ML INHALATION SOLUTION 1 neb treatment QID for cough Dx: J06.9 IPRATROPIUM-ALBUTEROL 0.5-2.5 ( 3) MG/3ML INHALATION SOLUTION 1326619 IPRATROPIUM-ALBUTEROL Inactive TYLENOL 8 HOUR 650 MG [...] a day LAMICTAL 25 MG ORAL TABLET 861637 LAMOTRIGINE Inactive NOVOLOG 100 UNIT/ML SUBCUTANEOUS SOLUTION 10 UNITS BEFORE SUPPER NOVOLOG 100 UNIT/ML SUBCUTANEOUS SOLUTION INSULIN ASPART Inactive NOVOLOG 100 UNIT/ML SUBCUTANEOUS SOLUTION 10 UNITS BID BEFORE BREAKFAST AND LUNCH NOVOLOG 100 UNIT/ML SUBCUTANEOUS SOLUTION INSULIN ASPART Inactive BANOPHEN 25 MG ORAL TABLET 1 po every 6 hours PRN allergic reaction BANOPHEN 25 MG ORAL TABLET 5881548 DIPHENHYDRAMINE HCL Inactive IPRATROPIUM-ALBUTEROL 0.5-2.5 (3) MG/3ML INHALATION SOLUTION 1 neb treatment four times daily, for cough IPRATROPIUM-ALBUTEROL 0.5- 2.5 (3) MG/3ML INHALATION SOLUTION 5245123 IPRATROPIUM-ALBUTEROL Inactive BACTRIM DS 800-160 MG ORAL TABLET 1 tab by mouth twice daily 2016 BACTRIM DS 800-160 MG ORAL TABLET 078998 TRIMETHOPRIM- SULFAMETHOXAZOLE Inactive Advance Directives Directive Description Start Date DURABLE POWER [employer] PERMISSION TO SHARE ADVANCED [...] HGBA1C - Chemistry sodium, serum 123 mmol/L 665-462 3248/04/25 carbon dioxide, venous blood 26.2 mmol/L 21.0-32.0 [...] 4.3-6.0 Lab Report: Comp. Metabolic Panel, CBC, [facility] - Hematology leukocyte count, blood 4.4 10^3/MM^3 [...] count 331 10^3/MM^3 10*3/mm3 142-424 Lab Report: [facility] - Chemistry hemoglobin A1C, blood, [...] mg/dL Encounters Code Encounter Date Provider Facility CPT-32153 [id number] Vst-Est Level IV 10:45:13 CDT Pelon Quach MD [facility] CPT-36633 44346-Qrx Vst-Est Level IV 13:48:14 CDT Pelon Quach MD [facility] CPT-56018 25271-Rqn Vst-Est Level II 13:40:42 CDT Pelon Quach MD [facility] CPT-07445 10003-Vib Vst-Est Level III 13:36:24 CDT Pelon Quach MD [facility]-09144 Level 4 Est. Patient 18:11:18 CDT Pelon Quach MD [facility] CPT-62370 Level 4 Est. Patient 14:46:38 CDT Pelon Quach MD [facility]-41251 Level 4 Est. Patient 08:43:11 CDT Pelon Quach MD [facility] CPT-72731 Level 4 Est. Patient 14:27:30 CDT Pelon Quach MD [facility]-79567 Level 3 Est. Patient 10:32:17 CDT Jaycee Torrez [facility]-32029 Level 3 Est. Patient 10:15:07 CDT Pelon Quach MD [facility] CPT-75509 Level 4 Est. Patient 09:30:54 CDT Pelon Quach MD [facility]-08643 Level 4 Est. Patient 14:34:25 CDT Pelon Quach MD [facility] CPT-77941 Level 3 Est. Patient 11:51:35 COMPUTER SYSTEMS ENGINEER Rick Henson DO [facility] CPT-83990 Level 3 Est. Patient 12:13:33 COMPUTER SYSTEMS ENGINEER Erik Baptiste MD [facility] CPT-35586 Level 3 Est. Patient 09:40:44 COMPUTER SYSTEMS ENGINEER Jaycee Torrez [facility] CPT-85280 Level 3 Est. Patient 09:36:32 COMPUTER SYSTEMS ENGINEER Jaycee Torrez [facility] CPT-01907 Level 4 Est. Patient 16:57:02 COMPUTER SYSTEMS ENGINEER Pelon Quach MD [facility]-11355 Level 4 Est. Patient 22:19:34 CDT Pelon Quach MD [facility]-14410 Level 3 Est. Patient 00:34:41 CDT Pelon Quach MD [facility] CPT-62678 Level 4 Est. Patient 11:19:14 CDT Pelon Quach MD [facility] CPT-43418 Level 4 Est. Patient 16:43:30 COMPUTER SYSTEMS ENGINEER Pelon Quach MD [facility] CPT-61083 Level 4 Est. Patient 12:42:18 CDT Pelon Quach MD [facility] CPT-63256 Level 4 Est. Patient 11:52:20 CDT Pelon Quach MD [facility] CPT-45688 Level 4 Est. Patient 13:59:46 CDT Pelon Quach MD [facility] CPT-27720 Level 4 Est. Patient 15:10:48 CDT Pelon Quach MD [facility] CPT-79139 Level 4 Est. Patient 17:13:06 CDT Pelon Quach MD [facility] CPT-23428 Level 4 Est. Patient 18:47:47 CDT Pelon Quach MD [facility] CPT-73443 Level 3 Est. Patient 21:01:27 CDT Pelon Quach MD [facility] CPT-25977 Level 3 Est. Patient 14:07:03 CDT Taty Alvarado MD PhD [facility] CPT-56704 Level 3 New Patient 21:39:52 COMPUTER SYSTEMS ENGINEER Pelon Quach MD [facility] CPT-07697 Level 3 Est. Patient 14:28:44 CDT Glenn Thornton MD [facility] CPT-12797 Level 3 Est. Patient 16:35:00 CDT Glenn Thornton MD [facility] CPT-44687 Level 4 New Patient 17:06:27 CDT Glenn Thornton MD [facility] [place] Procedures Code Procedure Name Date Entry Date Standard Description CPT-70253 Shoulder, right, comp min 2V - XRAY USE ONLY 10:47:10 CDT CPT-G0439 Subsequent Annual Wellness Exam 18:11:17 CDT CPT-G0438 Initial Annual Wellness Exam 09:30:54 CDT CPT-32901 Prevnar 13 Intramuscular Suspension 14:34:25 CDT 12/27 CPT-76837 Chest 2V Frontal and Lat - XRAY USE ONLY 11:56:13 COMPUTER SYSTEMS ENGINEER CPT-36794 Cystoscopy 14:28:44 CDT CPT-26231 Bladder Scan 14:28:44 CDT CPT-57118 Indwelling Cath Change 17:06:27 CDT CPT-98519 Cystoscopy 17:06:27 CDT
--- OUTSIDE RECORDS SUMMARY | 2018-06-22 12:05 | XMS REPORT | Clinical Summary ---
Author Author Admin, ONESIMO Organization [facility] [place] Address Unknown Phone Unavailable Allergies, Adverse Reactions, [...] Pelon Quach MD Diabetes-Type 2 ICD-250.00 Inactive ePlon Quach MD Blister, foot/toe w/o infection ICD-917.2 [...] as needed for muscle spasm/pain CYCLOBENZAPRINE HCL 84113529285 Active Pelon Quach MD Active BENADRYL 25 MG ORAL CAPSULE 1 po q8hr PRN Congestion DIPHENHYDRAMINE HCL 95636302160 Active Pelon Quach MD Active ZOFRAN 4 MG ORAL TABLET 1 po q6hr PRN Nausea ONDANSETRON HCL 97441385472 Active Pelon Quach MD Active IMODIUM A-D 2 MG ORAL TABLET One QID prn diarrhea. No more than 4 tabs daily LOPERAMIDE HCL 45864997622 Active Pelon Quach MD Active TYLENOL 325 MG ORAL TABLET 2 tabs po prn for pain elevated temp ACETAMINOPHEN 95855986510 Active Pelon Quach MD Active MUCINEX D 60-600 MG ORAL TABLET EXTENDED RELEASE 12 HOUR 1 po BID PRN Congestion PSEUDOEPHEDRINE-GUAIFENESIN 81277550494 Active Pelon Quach MD Active IBUPROFEN 200 MG ORAL TABLET q 6hrs prn pain IBUPROFEN 60850295318 Active Pelon Quach MD Active LORATADINE 10 MG ORAL TABLET 1 tablet by mouth daily prn LORATADINE 87922420317 Active Pelon Quach MD Active BANOPHEN 25 MG ORAL TABLET 1 po every 6 hours PRN allergic reaction DIPHENHYDRAMINE HCL 94370550677 No Longer Active Pelon Quach MD Active EASY TOUCH ALCOHOL PREP MEDIUM 70 % PAD Use with each finger stick and insulin admin Dx: E11.9 ALCOHOL SWABS 31228002455 Active Jaycee Torrez APRN Active HUMALOG KWIKPEN 100 UNIT/ML SUBCUTANEOUS SOLUTION PEN-INJECTOR inject 10 units subcutaneously before meals also sliding scale INSULIN LISPRO 18506402656 Active Pelon Quach MD Active NOVOLOG 100 UNIT/ML SUBCUTANEOUS SOLUTION 10 UNITS BID BEFORE BREAKFAST AND LUNCH INSULIN ASPART 58473113367 No Longer Active NICOLETTE Hitchcock Active NOVOLOG 100 UNIT/ML SUBCUTANEOUS SOLUTION 10 UNITS BEFORE SUPPER INSULIN ASPART 74934760400 No Longer Active NICOLETTE Hitchcock Active INVEGA 6 MG ORAL TABLET EXTENDED RELEASE 24 HOUR 1 po daily for schizophrenia PALIPERIDONE 84024452841 Active Pelon Quach MD Active LAMICTAL 25 MG ORAL TABLET 2 tabs by mouth twice a day LAMOTRIGINE 87596372918 No Longer Active Pelon Quach MD Active BACTROBAN 2 % EXTERNAL OINTMENT Apply to affected area BID 06/28 MUPIROCIN 15101469020 No Longer Active Pelon Quach MD Active INVEGA 6 MG ORAL TABLET EXTENDED RELEASE 24 HOUR 1 po daily for Schizophrenia PALIPERIDONE 94993034812 No Longer Active Pelon Quach MD Active TYLENOL 8 HOUR 650 MG ORAL TABLET EXTENDED RELEASE Take 1 tab po up to 3 times daily as needed ACETAMINOPHEN 84796729953 No Longer Active Pelon Quach MD Active IPRATROPIUM-ALBUTEROL 0.5-2.5 (3) MG/3ML INHALATION SOLUTION 1 neb treatment QID for cough Dx: J06.9 IPRATROPIUM-ALBUTEROL 99022264989 No Longer Active Pelon Quach MD Active BACTRIM DS 800-160 MG ORAL TABLET 1 tab by mouth twice daily 2016 TRIMETHOPRIM-SULFAMETHOXAZOLE 79763301534 No Longer Active Pelon Quach MD Active BACTRIM DS 800-160 MG ORAL TABLET 1 twice a day SULFAMETHOXAZOLE-TRIMETHOPRIM 17009729136 No Longer Active Pelon Quach MD Active IPRATROPIUM-ALBUTEROL 0.5-2.5 (3) MG/3ML INHALATION SOLUTION 1 neb treatment four times daily, for cough IPRATROPIUM-ALBUTEROL 55161070433 No Longer Active Jaycee Torerz APRN Active FUROSEMIDE 40 MG ORAL TABLET Take one by mouth daily FUROSEMIDE 63192286742 No Longer Active Jaycee Torrez APRN Active LANTUS 100 UNIT/ML SUBCUTANEOUS SOLUTION 20 SUBQ AT HS INSULIN GLARGINE 84510788824 Active Pelon Quach MD Active LAMICTAL 25 MG ORAL TABLET 2 tabs po BID for convulsions LAMOTRIGINE 66539199650 Active Jaycee Torrez APRN Active LASIX 20 MG ORAL TABLET 1 tablet by mouth every morning for edema FUROSEMIDE 11734389517 Active Jaycee Arell INCUBATOR TENDER Active BUSPIRONE HCL 10 MG ORAL TABLET 1 tab by mouth BID BUSPIRONE HCL 55726965745 Active Jaycee Juan Davidll INCUBATOR TENDER Active ADULT ASPIRIN EC LOW STRENGTH 81 MG ORAL TABLET DELAYED RELEASE Take one by mouth daily ASPIRIN 84755426749 No Longer Active Pelon Quach MD Active ASPIRIN 81 MG ORAL TABLET 1 po qd ASPIRIN 99643600502 Active Pelon Quach MD Active ZOFRAN 4 MG ORAL TABLET 1 po q6hr PRN Nausea ONDANSETRON HCL 45759015732 No Longer Active Pelon Quach MD Active TYLENOL 325 MG ORAL TABLET 1-2 pills by mouth every 6 hours if needed for pain /fever ACETAMINOPHEN 77473066185 No Longer Active Pelon Quach MD Active INVEGA 6 MG ORAL TABLET EXTENDED RELEASE 24 HOUR 1 TAB ONCE DAILY PALIPERIDONE 18139165631 No Longer Active Carly Suggs Active TEGRETOL 200 MG ORAL TABLET by mouth twice a day CARBAMAZEPINE 99297487320 Active Taty Alvarado MD PhD Active FLOMAX 0.4 MG ORAL CAPSULE 1 Daily TAMSULOSIN HCL 51335665891 Active Marianela Juarez Active DILANTIN 100 MG ORAL CAPSULE Take one by mouth daily PHENYTOIN SODIUM EXTENDED 21702025232 No Longer Active Marianela Juarez Active DEPAKOTE SPRINKLES 125 MG ORAL CAPSULE DELAYED RELEASE SPRINKLE 4 capsules by mouth twice daily DIVALPROEX SODIUM 90188162582 No Longer Active Marianelachandrika Juarez Active LAMICTAL 200 MG ORAL TABLET 1 BY MOUTH TWICE A DAY LAMOTRIGINE 45566836424 Active Marianela Raida Active LAMICTAL 100 MG ORAL TABLET by mouth twice a day LAMOTRIGINE 06483234210 No Longer Active Marianelachandrika Juarez Active LAMICTAL 150 MG ORAL TABLET by mouth twice a day LAMOTRIGINE 21051129712 No Longer Active Marianela Raida Active DILANTIN 100 MG ORAL CAPSULE Take three by mouth daily PHENYTOIN SODIUM EXTENDED 75202481976 No Longer Active Marianela Shankarronny Active SENOKOT 8.6 MG ORAL TABLET take at bedtime SENNOSIDES 94381441617 Active Pelon Quach MD Active LIPITOR 20 MG ORAL TABLET take at bedtime ATORVASTATIN CALCIUM 58054973552 Active Glenn Thornton MD Active LISINOPRIL 2.5 MG ORAL TABLET Take one by mouth daily LISINOPRIL 57468275048 Active Glenn Thornton MD Active TRENTAL 400 MG CR-TABS by mouth twice a day PENTOXIFYLLINE 51134129921 Active Glenn Thornton MD Active KLOR-CON 10 10 MEQ ORAL TABLET EXTENDED RELEASE Take one by mouth daily POTASSIUM CHLORIDE 70399960127 Active Glenn Thornton MD Active DILANTIN 100 MG ORAL CAPSULE Take three by mouth daily DILANTIN 100 MG ORAL CAPSULE 120454 PHENYTOIN SODIUM EXTENDED Inactive LAMICTAL 150 MG ORAL TABLET by mouth twice a day LAMICTAL 150 MG ORAL TABLET 948022 LAMOTRIGINE Inactive LAMICTAL 100 MG ORAL TABLET by mouth twice a day LAMICTAL 100 MG ORAL TABLET 311344 LAMOTRIGINE Inactive DEPAKOTE SPRINKLES 125 MG ORAL CAPSULE DELAYED RELEASE SPRINKLE 4 capsules by mouth twice daily DEPAKOTE SPRINKLES 125 MG ORAL CAPSULE DELAYED RELEASE SPRINKLE 9463671 DIVALPROEX SODIUM Inactive DILANTIN 100 MG ORAL CAPSULE Take one by mouth daily DILANTIN 100 MG ORAL CAPSULE 790829 PHENYTOIN SODIUM EXTENDED Inactive INVEGA 6 MG ORAL TABLET EXTENDED RELEASE 24 HOUR 1 TAB ONCE DAILY INVEGA 6 MG ORAL TABLET EXTENDED RELEASE 24 HOUR PALIPERIDONE Inactive TYLENOL 325 MG ORAL TABLET 1-2 pills by mouth every 6 hours if needed for pain /fever TYLENOL 325 MG ORAL TABLET 462826 ACETAMINOPHEN Inactive ZOFRAN 4 MG ORAL TABLET 1 po q6hr PRN Nausea ZOFRAN 4 MG ORAL TABLET 705438 ONDANSETRON HCL Inactive ADULT ASPIRIN EC LOW STRENGTH 81 MG ORAL TABLET DELAYED RELEASE Take one by mouth daily ADULT ASPIRIN EC LOW STRENGTH 81 MG ORAL TABLET DELAYED RELEASE 192287 ASPIRIN Inactive FUROSEMIDE 40 MG ORAL TABLET Take one by mouth daily FUROSEMIDE 40 MG ORAL TABLET 691835 FUROSEMIDE Inactive BACTRIM DS 800-160 MG ORAL TABLET 1 twice a day BACTRIM DS 800-160 MG ORAL TABLET 240461 SULFAMETHOXAZOLE-TRIMETHOPRIM Inactive IPRATROPIUM-ALBUTEROL 0.5-2.5 (3) MG/3ML INHALATION SOLUTION 1 neb treatment QID for cough Dx: J06.9 IPRATROPIUM-ALBUTEROL 0.5-2.5 ( 3) MG/3ML INHALATION SOLUTION 5560476 IPRATROPIUM-ALBUTEROL Inactive TYLENOL 8 HOUR 650 MG [...] a day LAMICTAL 25 MG ORAL TABLET 346523 LAMOTRIGINE Inactive NOVOLOG 100 UNIT/ML SUBCUTANEOUS SOLUTION 10 UNITS BEFORE SUPPER NOVOLOG 100 UNIT/ML SUBCUTANEOUS SOLUTION INSULIN ASPART Inactive NOVOLOG 100 UNIT/ML SUBCUTANEOUS SOLUTION 10 UNITS BID BEFORE BREAKFAST AND LUNCH NOVOLOG 100 UNIT/ML SUBCUTANEOUS SOLUTION INSULIN ASPART Inactive BANOPHEN 25 MG ORAL TABLET 1 po every 6 hours PRN allergic reaction BANOPHEN 25 MG ORAL TABLET 6596213 DIPHENHYDRAMINE HCL Inactive IPRATROPIUM-ALBUTEROL 0.5-2.5 (3) MG/3ML INHALATION SOLUTION 1 neb treatment four times daily, for cough IPRATROPIUM-ALBUTEROL 0.5- 2.5 (3) MG/3ML INHALATION SOLUTION 7816387 IPRATROPIUM-ALBUTEROL Inactive BACTRIM DS 800-160 MG ORAL TABLET 1 tab by mouth twice daily 2016 BACTRIM DS 800-160 MG ORAL TABLET 081719 TRIMETHOPRIM- SULFAMETHOXAZOLE Inactive Advance Directives Directive Description Start Date DURABLE POWER OF STATIONARY FIREMAN FOR HEALTHCARE PERMISSION TO SHARE ADVANCED DIRECTIVE [...] HGBA1C - Chemistry sodium, serum 123 mmol/L 579-512 7499/04/25 carbon dioxide, venous blood 26.2 mmol/L 21.0-32.0 [...] 4.3-6.0 Lab Report: Comp. Metabolic Panel, CBC, [facility] - Hematology leukocyte count, blood 4.4 [...] count 331 10^3/MM^3 10*3/mm3 142-424 Lab Report: [facility] - Chemistry hemoglobin A1C, blood, as % [...] mg/dL Encounters Code Encounter Date Provider Facility CPT-46348 [id number] Vst-Est Level IV 10:45:13 CDT Pelon Quach MD [facility] CPT-09094 [id number] Vst-Est Level IV 13:48:14 CDT Pelon Quach MD [facility] CPT-56469 [id number] Vst-Est Level II 13:40:42 CDT Pelon Quach MD [facility] CPT-94108 [id number] Vst-Est Level III 13:36:24 CDT Pelon Quach MD [facility]-03090 Level 4 Est. Patient 18:11:18 CDT Pelon Quach MD [facility] CPT-80662 Level 4 Est. Patient 14:46:38 CDT Pelon Quach MD [facility]-34790 Level 4 Est. Patient 08:43:11 CDT Pelon Quach MD [facility] CPT-21062 Level 4 Est. Patient 14:27:30 CDT Pelon Qucah MD [facility]-46280 Level 3 Est. Patient 10:32:17 CDT Jaycee Torrez [facility]-58197 Level 3 Est. Patient 10:15:07 CDT Pelon Quach MD [facility] CPT-05437 Level 4 Est. Patient 09:30:54 CDT Pelon Quach MD [facility]-22142 Level 4 Est. Patient 14:34:25 CDT Pelon Quach MD [facility] CPT-45433 Level 3 Est. Patient 11:51:35 NUCLEAR MEDICINE MEDICAL DIRECTOR Rick Henson DO [facility] CPT-16394 Level 3 Est. Patient 12:13:33 NUCLEAR MEDICINE MEDICAL DIRECTOR Erik Baptiste MD [facility] CPT-21045 Level 3 Est. Patient 09:40:44 NUCLEAR MEDICINE MEDICAL DIRECTOR Jaycee Torrez [facility] CPT-65738 Level 3 Est. Patient 09:36:32 NUCLEAR MEDICINE MEDICAL DIRECTOR Jaycee Torrez [facility] CPT-22349 Level 4 Est. Patient 16:57:02 NUCLEAR MEDICINE MEDICAL DIRECTOR Pelon Quach MD [facility]-86970 Level 4 Est. Patient 22:19:34 CDT Pelon Quach MD [facility]-11162 Level 3 Est. Patient 00:34:41 CDT Pelon Quach MD [facility] CPT-80468 Level 4 Est. Patient 11:19:14 CDT Pelon Quach MD [facility] CPT-36271 Level 4 Est. Patient 16:43:30 NUCLEAR MEDICINE MEDICAL DIRECTOR Pelon Quach MD [facility] CPT-78680 Level 4 Est. Patient 12:42:18 CDT Pelon Quach MD [facility] CPT-22370 Level 4 Est. Patient 11:52:20 CDT Pelon Quach MD [facility] CPT-12053 Level 4 Est. Patient 13:59:46 CDT Pelon Quach MD [facility] CPT-13518 Level 4 Est. Patient 15:10:48 CDT Pelon Quach MD [facility] CPT-40326 Level 4 Est. Patient 17:13:06 CDT Pelon Quach MD [facility] CPT-02306 Level 4 Est. Patient 18:47:47 CDT Pelon Quach MD [facility] CPT-59181 Level 3 Est. Patient 21:01:27 CDT Pelon Quach MD [facility] CPT-94424 Level 3 Est. Patient 14:07:03 CDT Taty Alvarado MD PhD [facility] CPT-58005 Level 3 New Patient 21:39:52 NUCLEAR MEDICINE MEDICAL DIRECTOR Pelon Quach MD [facility] CPT-61169 Level 3 Est. Patient 14:28:44 CDT Glenn Thornton MD [facility] CPT-00517 Level 3 Est. Patient 16:35:00 CDT Glenn Thornton MD [facility] CPT-38486 Level 4 New Patient 17:06:27 CDT Glenn Thornton MD [facility] [place] Procedures Code Procedure Name Date Entry Date Standard Description CPT-45904 Shoulder, right, comp min 2V - XRAY USE ONLY 10:47:10 CDT CPT-G0439 Subsequent Annual Wellness Exam 18:11:17 CDT CPT-G0438 Initial Annual Wellness Exam 09:30:54 CDT CPT-92883 Prevnar 13 Intramuscular Suspension 14:34:25 CDT 12/27 CPT-30948 Chest 2V Frontal and Lat - XRAY USE ONLY 11:56:13 NUCLEAR MEDICINE MEDICAL DIRECTOR CPT-09844 Cystoscopy 14:28:44 CDT CPT-31326 Bladder Scan 14:28:44 CDT CPT-19213 Indwelling Cath Change 17:06:27 CDT CPT-27723 Cystoscopy 17:06:27 CDT
[2018-06-22] MEDS ORDERED: PHENYLEPHRINE 0.5% NASAL SPR (NEO-SYNEPHRINE) REG ONE ×2 (12:06→17:56)
[2018-06-22] MEDS ORDERED: BSS 15 ML ONE (12:06)
[2018-06-22] MEDS ORDERED: COCAINE HCL 4% 2 ML SYR ONE (12:06)
[2018-06-22] MEDS ORDERED: LIDOCAINE/EPI 1%-1:200,000 (XYLOCAINE) 10 ML VIAL ONE (12:06)
--- NOTE | 2018-06-22 12:06 | ED EENT ---
History of Present Illness General Chief Complaint: Nasal Problems Stated Complaint: EPITAXIS Source: patient Exam Limitations: no limitations History of Present Illness Date Seen by Provider: Jun 22, 2018 Time Seen by Provider: 11:15 Initial Comments Here in transfer from [place] for persistent epistaxis. The ED provider there had multiple attempts to stop the bleed including [place]-Synephrine nasally, nasal tampon and then ultimately rapid rhino. Still had persistent posterior nose bleed with ooze. The contacted Dr. Piña's office and talked to his nurse practitioner. She had talked with him and they accepted here in transfer. In the process of transfer, patient's blood pressure went down to 70 systolic. He was asymptomatic at the time. He received another bolus of fluid which appears to be this second liter of normal saline and this did resolve his hypotension. Patient had no complaints at the time other than the nose bleeding. He has vomited some blood a few times or clots including on arrival here. He did receive TXA as well. Patient denies complaint. One week ago did have fall due to hypoglycemia and hit his face and was noted to have nasal bone fracture. This appears to be the cause of the nosebleed. He did have a nosebleed earlier this week at the time of injury that did stop. It restarted this morning when he rolled over in bed and he was transported to [facility] at about 4 a.m. He has been in care since then. Timing/Duration: abrupt Severity: moderate Location: nose Prearrival Treatment: squeezing nostrils, nasal packing Modifying Factors: Improves With Rest Associated Symptoms: No cough, No fever, No sinus infection Allergies and Home Medications Patient Home Medication List Home Medication List Reviewed: Yes Review of Systems Review of Systems Constitutional: see HPI; No chills, No fever Eyes: No Symptoms Reported Ears: No Symptoms Reported Nose: see HPI, clots, epistaxis Mouth: no symptoms reported Throat: no symptoms reported Respiratory: no symptoms reported Cardiovascular: no symptoms reported Gastrointestinal: nausea, vomiting Musculoskeletal: no symptoms reported Skin: change in color, lesions (bruising to the face) All Other Systems Reviewed Negative Unless Noted: Yes Past Gidbeiq-Jzazor-Bfstgu Hx Past Med/Social Hx: Reviewed Nursing Past Med/Soc Hx Patient Social History Alcohol Use: Denies Use Past Medical History Surgeries: Yes Pacemaker Respiratory: No Cardiac: Yes Hypertension, Irregular Heartbeat Neurological: Yes Dementia Endocrine: Yes Diabetes, Insulin dep Family Medical History Reviewed Nursing Family Hx Physical Exam Height, Weight, BMI Height: '" Weight: lbs. oz. kg; BMI Method: General Appearance: WD/WN, no apparent distress Eyes: bilateral eye normal inspection, bilateral eye PERRL, bilateral eye EOMI Nose: active bleeding, other (left side with active bleeding assumed to be posterior as rapid Rhino in place and there is no anterior blood.) Mouth/Throat: normal mouth inspection, other (blood in the posterior pharynx bruising. Initially a fair amount of clot that was removed with suction.) Neck: full range of motion, supple Cardiovascular: regular rate, rhythm, no murmur Respiratory: lungs clear, normal breath sounds Gastrointestinal: non tender, soft Neurologic/Psychiatric: alert, normal mood/affect Skin: warm/dry, ecchymosis (noted on the face around the right eye and nose) Progress/Results/Core Measures Results/Orders Lab Results Laboratory Tests Test 06/22/18 11:30 Range/Units White Blood Count 7.8 4.3-11.0 10^3/uL Red Blood Count 2.70 L 4.35-5.85 10^6/uL Hemoglobin 8.9 L 13.3-17.7 G/DL Hematocrit 25 L 40-54 % Mean Corpuscular Volume 93 80-99 FL Mean Corpuscular Hemoglobin 33 25-34 PG Mean Corpuscular Hemoglobin Concent 36 32-36 G/DL Red Cell Distribution Width 13.5 10.0-14.5 % Platelet Count 216 130-400 10^3/uL Mean Platelet Volume 8.2 7.4-10.4 FL Neutrophils (%) (Auto) 90 H 42-75 % Lymphocytes (%) (Auto) 4 L 12-44 % Monocytes (%) (Auto) 6 0-12 % Eosinophils (%) (Auto) 1 0-10 % Basophils (%) (Auto) 0 0-10 % Neutrophils # (Auto) 7.0 1.8-7.8 X 10^3 Lymphocytes # (Auto) 0.3 L 1.0-4.0 X 10^3 Monocytes # (Auto) 0.4 0.0-1.0 X 10^3 Eosinophils # (Auto) 0.1 0.0-0.3 10^3/uL Basophils # (Auto) 0.0 0.0-0.1 10^3/uL Sodium Level 130 L 135-145 MMOL/L Potassium Level 4.3 3.6-5.0 MMOL/L Chloride Level 105 98-107 MMOL/L Carbon Dioxide Level 17 L 21-32 MMOL/L Anion Gap 8 5-14 MMOL/L Blood Urea Nitrogen 25 H 7-18 MG/DL Creatinine 0.58 L 0.60-1.30 MG/DL Estimat Glomerular Filtration Rate > 60 BUN/Creatinine Ratio 43 Glucose Level 245 H 70-105 MG/DL Calcium Level 6.6 L 8.5-10.1 MG/DL My Orders Orders - EUNICE HERNANDEZ MD Basic Metabolic Panel (06/22/18 11:32) Cbc With Automated Diff (06/22/18 11:32) Red Cells Leukocytes Reduced (06/22/18 11:32) Type And Screen (06/22/18 11:32) Progress Progress Note : Progress Note Seen and evaluated. Patient has 2 IVs from previous facility. Normal saline bolus 1 L bolus complete now and IV saline locked. Type and cross for 2 units, repeat CBC and BMP ordered. I did discuss the case with Dr. Piña. History practitioner will see the patient and he will come to the emergency department. 1215: Dr. Piña has seen and evaluated the patient as well as his nurse practitioner. Patient to go to OR. Patient agrees with plan. Patient did vomit clots and blood but has improved since the earlier episode of this. Labs reviewed. Departure Communication (Admissions) Time/Spoke to Admitting Phy: 11:30 Impression Primary Impression: Epistaxis Disposition: ADMITTED INPATIENT Condition: Stable (ERASED) Admissions Decision to Admit Reason: Admit from ER (General) Decision to Admit/Date: Jun 22, 2018 Time/Decision to Admit Time: 11:45 Departure-Patient Inst. Referrals: NO,LOCAL PHYSICIAN (PCP/Family) Primary Care Physician EUNICE HERNANDEZ MD Jun 22, 2018 12:06
--- OUTSIDE RECORDS SUMMARY | 2018-06-22 12:06 | XMS REPORT | Clinical Summary ---
Author Author Admin, ONESIMO Organization [facility] Address Unknown Phone Unavailable Allergies, Adverse Reactions, [...] as needed for muscle spasm/pain CYCLOBENZAPRINE HCL 38601028927 Active Pelon Quach MD Active BENADRYL 25 MG ORAL CAPSULE 1 po q8hr PRN Congestion DIPHENHYDRAMINE HCL 18922974796 Active Pelon Quach MD Active ZOFRAN 4 MG ORAL TABLET 1 po q6hr PRN Nausea ONDANSETRON HCL 34975667217 Active Pelon Quach MD Active IMODIUM A-D 2 MG ORAL TABLET One QID prn diarrhea. No more than 4 tabs daily LOPERAMIDE HCL 41865770625 Active Pelon Quach MD Active TYLENOL 325 MG ORAL TABLET 2 tabs po prn for pain elevated temp ACETAMINOPHEN 31865364265 Active Pelon Quach MD Active MUCINEX D 60-600 MG ORAL TABLET EXTENDED RELEASE 12 HOUR 1 po BID PRN Congestion PSEUDOEPHEDRINE-GUAIFENESIN 82134421105 Active Pelon Quach MD Active IBUPROFEN 200 MG ORAL TABLET q 6hrs prn pain IBUPROFEN 20851364950 Active Pelon Quach MD Active LORATADINE 10 MG ORAL TABLET 1 tablet by mouth daily prn LORATADINE 89760471325 Active Pelon Quach MD Active BANOPHEN 25 MG ORAL TABLET 1 po every 6 hours PRN allergic reaction DIPHENHYDRAMINE HCL 02921140798 No Longer Active Pelon Quach MD Active EASY TOUCH ALCOHOL PREP MEDIUM 70 % PAD Use with each finger stick and insulin admin Dx: E11.9 ALCOHOL SWABS 43088323393 Active Jaycee Torrez APRN Active HUMALOG KWIKPEN 100 UNIT/ML SUBCUTANEOUS SOLUTION PEN-INJECTOR inject 10 units subcutaneously before meals also sliding scale INSULIN LISPRO 90569297499 Active Pelon Quach MD Active NOVOLOG 100 UNIT/ML SUBCUTANEOUS SOLUTION 10 UNITS BID BEFORE BREAKFAST AND LUNCH INSULIN ASPART 69270729663 No Longer Active NICOLETTE Hitchcock Active NOVOLOG 100 UNIT/ML SUBCUTANEOUS SOLUTION 10 UNITS BEFORE SUPPER INSULIN ASPART 50573191266 No Longer Active NICOLETTE Hitchcock Active INVEGA 6 MG ORAL TABLET EXTENDED RELEASE 24 HOUR 1 po daily for schizophrenia PALIPERIDONE 75373872898 Active Pelon Quach MD Active LAMICTAL 25 MG ORAL TABLET 2 tabs by mouth twice a day LAMOTRIGINE 76629109165 No Longer Active Pelon Quach MD Active BACTROBAN 2 % EXTERNAL OINTMENT Apply to affected area BID 06/28 MUPIROCIN 09867969907 No Longer Active Pelon Quach MD Active INVEGA 6 MG ORAL TABLET EXTENDED RELEASE 24 HOUR 1 po daily for Schizophrenia PALIPERIDONE 12698286680 No Longer Active Pelon Quach MD Active TYLENOL 8 HOUR 650 MG ORAL TABLET EXTENDED RELEASE Take 1 tab po up to 3 times daily as needed ACETAMINOPHEN 72700549716 No Longer Active Pelon Quach MD Active IPRATROPIUM-ALBUTEROL 0.5-2.5 (3) MG/3ML INHALATION SOLUTION 1 neb treatment QID for cough Dx: J06.9 IPRATROPIUM-ALBUTEROL 94264930719 No Longer Active Pelon Quach MD Active BACTRIM DS 800-160 MG ORAL TABLET 1 tab by mouth twice daily 2016 TRIMETHOPRIM-SULFAMETHOXAZOLE 10716197562 No Longer Active Pelon Quach MD Active BACTRIM DS 800-160 MG ORAL TABLET 1 twice a day SULFAMETHOXAZOLE-TRIMETHOPRIM 49046117220 No Longer Active Pelon Quach MD Active IPRATROPIUM-ALBUTEROL 0.5-2.5 (3) MG/3ML INHALATION SOLUTION 1 neb treatment four times daily, for cough IPRATROPIUM-ALBUTEROL 23957238424 No Longer Active Jaycee Torrez APRN Active FUROSEMIDE 40 MG ORAL TABLET Take one by mouth daily FUROSEMIDE 88606531493 No Longer Active Jaycee Torrez APRN Active LANTUS 100 UNIT/ML SUBCUTANEOUS SOLUTION 20 SUBQ AT HS INSULIN GLARGINE 84950732221 Active Pelon Quach MD Active LAMICTAL 25 MG ORAL TABLET 2 tabs po BID for convulsions LAMOTRIGINE 85480081956 Active Jaycee Torrez APRN Active LASIX 20 MG ORAL TABLET 1 tablet by mouth every morning for edema FUROSEMIDE 42657031548 Active Jaycee Arell ECOLOGICAL RISK ASSESSOR Active BUSPIRONE HCL 10 MG ORAL TABLET 1 tab by mouth BID BUSPIRONE HCL 30352901918 Active Jaycee Juan Davidll ECOLOGICAL RISK ASSESSOR Active ADULT ASPIRIN EC LOW STRENGTH 81 MG ORAL TABLET DELAYED RELEASE Take one by mouth daily ASPIRIN 23318784971 No Longer Active Pelon Quach MD Active ASPIRIN 81 MG ORAL TABLET 1 po qd ASPIRIN 00317001772 Active Pelon Quach MD Active ZOFRAN 4 MG ORAL TABLET 1 po q6hr PRN Nausea ONDANSETRON HCL 99961677900 No Longer Active Pelon Quach MD Active TYLENOL 325 MG ORAL TABLET 1-2 pills by mouth every 6 hours if needed for pain /fever ACETAMINOPHEN 08283762844 No Longer Active Pelon Quach MD Active INVEGA 6 MG ORAL TABLET EXTENDED RELEASE 24 HOUR 1 TAB ONCE DAILY PALIPERIDONE 43731896811 No Longer Active Carly Suggs Active TEGRETOL 200 MG ORAL TABLET by mouth twice a day CARBAMAZEPINE 30062809560 Active Taty Alvarado MD PhD Active FLOMAX 0.4 MG ORAL CAPSULE 1 Daily TAMSULOSIN HCL 61839481891 Active Marianela Juarez Active DILANTIN 100 MG ORAL CAPSULE Take one by mouth daily PHENYTOIN SODIUM EXTENDED 30399533244 No Longer Active Marianela Juarez Active DEPAKOTE SPRINKLES 125 MG ORAL CAPSULE DELAYED RELEASE SPRINKLE 4 capsules by mouth twice daily DIVALPROEX SODIUM 18369129644 No Longer Active Marianelachandrika Juarez Active LAMICTAL 200 MG ORAL TABLET 1 BY MOUTH TWICE A DAY LAMOTRIGINE 05293048729 Active Marianela Raida Active LAMICTAL 100 MG ORAL TABLET by mouth twice a day LAMOTRIGINE 71375663815 No Longer Active Marianelachandrika Juarez Active LAMICTAL 150 MG ORAL TABLET by mouth twice a day LAMOTRIGINE 55395172189 No Longer Active Marianela Raida Active DILANTIN 100 MG ORAL CAPSULE Take three by mouth daily PHENYTOIN SODIUM EXTENDED 59051293570 No Longer Active Marianela Shankarronny Active SENOKOT 8.6 MG ORAL TABLET take at bedtime SENNOSIDES 02131000978 Active Pelon Quach MD Active LIPITOR 20 MG ORAL TABLET take at bedtime ATORVASTATIN CALCIUM 88953035031 Active Glenn Thornton MD Active LISINOPRIL 2.5 MG ORAL TABLET Take one by mouth daily LISINOPRIL 23821458920 Active Glenn Thornton MD Active TRENTAL 400 MG CR-TABS by mouth twice a day PENTOXIFYLLINE 54304616359 Active Glenn Thornton MD Active KLOR-CON 10 10 MEQ ORAL TABLET EXTENDED RELEASE Take one by mouth daily POTASSIUM CHLORIDE 26794652905 Active Glenn Thornton MD Active DILANTIN 100 MG ORAL CAPSULE Take three by mouth daily DILANTIN 100 MG ORAL CAPSULE 927476 PHENYTOIN SODIUM EXTENDED Inactive LAMICTAL 150 MG ORAL TABLET by mouth twice a day LAMICTAL 150 MG ORAL TABLET 104193 LAMOTRIGINE Inactive LAMICTAL 100 MG ORAL TABLET by mouth twice a day LAMICTAL 100 MG ORAL TABLET 016692 LAMOTRIGINE Inactive DEPAKOTE SPRINKLES 125 MG ORAL CAPSULE DELAYED RELEASE SPRINKLE 4 capsules by mouth twice daily DEPAKOTE SPRINKLES 125 MG ORAL CAPSULE DELAYED RELEASE SPRINKLE 5578439 DIVALPROEX SODIUM Inactive DILANTIN 100 MG ORAL CAPSULE Take one by mouth daily DILANTIN 100 MG ORAL CAPSULE 568221 PHENYTOIN SODIUM EXTENDED Inactive INVEGA 6 MG ORAL TABLET EXTENDED RELEASE 24 HOUR 1 TAB ONCE DAILY INVEGA 6 MG ORAL TABLET EXTENDED RELEASE 24 HOUR PALIPERIDONE Inactive TYLENOL 325 MG ORAL TABLET 1-2 pills by mouth every 6 hours if needed for pain /fever TYLENOL 325 MG ORAL TABLET 463044 ACETAMINOPHEN Inactive ZOFRAN 4 MG ORAL TABLET 1 po q6hr PRN Nausea ZOFRAN 4 MG ORAL TABLET 865824 ONDANSETRON HCL Inactive ADULT ASPIRIN EC LOW STRENGTH 81 MG ORAL TABLET DELAYED RELEASE Take one by mouth daily ADULT ASPIRIN EC LOW STRENGTH 81 MG ORAL TABLET DELAYED RELEASE 644205 ASPIRIN Inactive FUROSEMIDE 40 MG ORAL TABLET Take one by mouth daily FUROSEMIDE 40 MG ORAL TABLET 487522 FUROSEMIDE Inactive BACTRIM DS 800-160 MG ORAL TABLET 1 twice a day BACTRIM DS 800-160 MG ORAL TABLET 937109 SULFAMETHOXAZOLE-TRIMETHOPRIM Inactive IPRATROPIUM-ALBUTEROL 0.5-2.5 (3) MG/3ML INHALATION SOLUTION 1 neb treatment QID for cough Dx: J06.9 IPRATROPIUM-ALBUTEROL 0.5-2.5 ( 3) MG/3ML INHALATION SOLUTION 9706126 IPRATROPIUM-ALBUTEROL Inactive TYLENOL 8 HOUR 650 MG [...] a day LAMICTAL 25 MG ORAL TABLET 977471 LAMOTRIGINE Inactive NOVOLOG 100 UNIT/ML SUBCUTANEOUS SOLUTION 10 UNITS BEFORE SUPPER NOVOLOG 100 UNIT/ML SUBCUTANEOUS SOLUTION INSULIN ASPART Inactive NOVOLOG 100 UNIT/ML SUBCUTANEOUS SOLUTION 10 UNITS BID BEFORE BREAKFAST AND LUNCH NOVOLOG 100 UNIT/ML SUBCUTANEOUS SOLUTION INSULIN ASPART Inactive BANOPHEN 25 MG ORAL TABLET 1 po every 6 hours PRN allergic reaction BANOPHEN 25 MG ORAL TABLET 6297476 DIPHENHYDRAMINE HCL Inactive IPRATROPIUM-ALBUTEROL 0.5-2.5 (3) MG/3ML INHALATION SOLUTION 1 neb treatment four times daily, for cough IPRATROPIUM-ALBUTEROL 0.5- 2.5 (3) MG/3ML INHALATION SOLUTION 1775557 IPRATROPIUM-ALBUTEROL Inactive BACTRIM DS 800-160 MG ORAL TABLET 1 tab by mouth twice daily 2016 BACTRIM DS 800-160 MG ORAL TABLET 828297 TRIMETHOPRIM- SULFAMETHOXAZOLE Inactive Advance Directives Directive Description Start Date DURABLE POWER OF DATA OPERATIONS DIRECTOR FOR HEALTHCARE PERMISSION TO SHARE ADVANCED [...] HGBA1C - Chemistry sodium, serum 123 mmol/L 330-811 0966/04/25 carbon dioxide, venous blood 26.2 mmol/L 21.0-32.0 [...] mg/dL Encounters Code Encounter Date Provider Facility CPT-95224 56180-Otd Vst-Est Level IV 10:45:13 CDT Pelon Quach MD [facility] CPT-39962 56903-Pbs Vst-Est Level IV 13:48:14 CDT Pelon Quach MD [facility] CPT-32391 97160-Umj Vst-Est Level II 13:40:42 CDT Pelon Quach MD [facility] CPT-23846 98768-Lgd Vst-Est Level III 13:36:24 CDT Pelon Quach MD [facility] CPT-68689 Level 4 Est. Patient 18:11:18 CDT Pelon Quach MD [facility] CPT-72438 Level 4 Est. Patient 14:46:38 CDT Pelon Quach MD [facility] CPT-61866 Level 4 Est. Patient 08:43:11 CDT Pelon Quach MD [facility] CPT-24673 Level 4 Est. Patient 14:27:30 CDT Pelon Quach MD [facility] CPT-99294 Level 3 Est. Patient 10:32:17 CDT Jaycee Torrez APRN [facility] CPT-13324 Level 3 Est. Patient 10:15:07 CDT Pelon Quach MD [facility] CPT-57042 Level 4 Est. Patient 09:30:54 CDT Pelon Quach MD [facility] CPT-15862 Level 4 Est. Patient 14:34:25 CDT Pelon Quach MD [facility] CPT-22688 Level 3 Est. Patient 11:51:35 NATURE PHOTOGRAPHER Rick Henson DO [facility] CPT-56192 Level 3 Est. Patient 12:13:33 NATURE PHOTOGRAPHER Erik Baptiste MD [facility] CPT-75353 Level 3 Est. Patient 09:40:44 NATURE PHOTOGRAPHER Jaycee Torrez [facility] CPT-90494 Level 3 Est. Patient 09:36:32 NATURE PHOTOGRAPHER Jaycee Torrez [facility] CPT-14586 Level 4 Est. Patient 16:57:02 NATURE PHOTOGRAPHER Pelon Quach MD [facility]-56435 Level 4 Est. Patient 22:19:34 CDT Pelon Quach MD [facility] CPT-66686 Level 3 Est. Patient 00:34:41 CDT Pelon Quach MD [facility] CPT-81308 Level 4 Est. Patient 11:19:14 CDT Pelon Quach MD [facility] CPT-87835 Level 4 Est. Patient 16:43:30 NATURE PHOTOGRAPHER Pelon Quach MD [facility] CPT-03963 Level 4 Est. Patient 12:42:18 CDT Pelon Quach MD [facility] CPT-52919 Level 4 Est. Patient 11:52:20 CDT Pelon Quach MD [facility] CPT-86049 Level 4 Est. Patient 13:59:46 CDT Pelon Quach MD [facility] CPT-21837 Level 4 Est. Patient 15:10:48 CDT Pelon Quach MD [facility] CPT-20486 Level 4 Est. Patient 17:13:06 CDT Pelon Quach MD [facility] CPT-88106 Level 4 Est. Patient 18:47:47 CDT Pelon Quach MD [facility] CPT-70995 Level 3 Est. Patient 21:01:27 CDT Pelon Quach MD [facility] CPT-72776 Level 3 Est. Patient 14:07:03 CDT Taty Alvarado MD PhD [facility] CPT-35505 Level 3 New Patient 21:39:52 NATURE PHOTOGRAPHER Pelon Quach MD [facility] CPT-58807 Level 3 Est. Patient 14:28:44 CDT Glenn Thornton MD [facility] CPT-75249 Level 3 Est. Patient 16:35:00 CDT Glenn Thornton MD [facility] CPT-88670 Level 4 New Patient 17:06:27 CDT Glenn Thornton MD [facility] Procedures Code Procedure Name Date Entry Date Standard Description CPT-68104 Shoulder, right, comp min 2V - XRAY USE ONLY 10:47:10 CDT CPT-G0439 Subsequent Annual Wellness Exam 18:11:17 CDT CPT-G0438 Initial Annual Wellness Exam 09:30:54 CDT CPT-83706 Prevnar 13 Intramuscular Suspension 14:34:25 CDT 12/27 CPT-40113 Chest 2V Frontal and Lat - XRAY USE ONLY 11:56:13 NATURE PHOTOGRAPHER CPT-40162 Cystoscopy 14:28:44 CDT CPT-93945 Bladder Scan 14:28:44 CDT CPT-14970 Indwelling Cath Change 17:06:27 CDT CPT-31990 Cystoscopy 17:06:27 CDT
--- OUTSIDE RECORDS SUMMARY | 2018-06-22 12:07 | XMS REPORT | Clinical Summary ---
Author Author Admin, ONESIMO Organization [facility] [employer] [place] Address Unknown Phone Unavailable Allergies, Adverse Reactions, [...] MD Neurogenic bladder NOS HYPERLIPIDEMIA 272.4 Refinement lGenn Thornton MD Other and unspecified hyperlipidemia Mixed hyperlipidemia 272.4 Active Pelon Quach MD Other and unspecified hyperlipidemia INCOMPLETE BLADDER EMPTYING 788.21 Active Glenn Thornton MD Incomplete bladder emptying G E R D 530.81 Active Muna Gallardo Esophageal reflux Diabetes-Type 2 250.00 Resolved Pelon uQach MD Diabetes mellitus without mention of complication, [...] as needed for muscle spasm/pain CYCLOBENZAPRINE HCL 43554871132 Active Pelon Quach MD Active BENADRYL 25 MG ORAL CAPSULE 1 po q8hr PRN Congestion DIPHENHYDRAMINE HCL 39506657209 Active Pelon Quach MD Active ZOFRAN 4 MG ORAL TABLET 1 po q6hr PRN Nausea ONDANSETRON HCL 98748086324 Active Pelon Quach MD Active IMODIUM A-D 2 MG ORAL TABLET One QID prn diarrhea. No more than 4 tabs daily LOPERAMIDE HCL 84687854436 Active Pelon Quach MD Active TYLENOL 325 MG ORAL TABLET 2 tabs po prn for pain elevated temp ACETAMINOPHEN 35818077218 Active Pelon Quach MD Active MUCINEX D 60-600 MG ORAL TABLET EXTENDED RELEASE 12 HOUR 1 po BID PRN Congestion PSEUDOEPHEDRINE-GUAIFENESIN 74099945366 Active Pelon Quach MD Active IBUPROFEN 200 MG ORAL TABLET q 6hrs prn pain IBUPROFEN 73011333560 Active Pelon Quach MD Active LORATADINE 10 MG ORAL TABLET 1 tablet by mouth daily prn LORATADINE 48641893921 Active Pelon Quach MD Active BANOPHEN 25 MG ORAL TABLET 1 po every 6 hours PRN allergic reaction DIPHENHYDRAMINE HCL 02808202240 No Longer Active Pelon Quach MD Active EASY TOUCH ALCOHOL PREP MEDIUM 70 % PAD Use with each finger stick and insulin admin Dx: E11.9 ALCOHOL SWABS 45590954476 Active Jaycee Torrez APRN Active HUMALOG KWIKPEN 100 UNIT/ML SUBCUTANEOUS SOLUTION PEN-INJECTOR inject 10 units subcutaneously before meals also sliding scale INSULIN LISPRO 48212649328 Active Pelon Quach MD Active NOVOLOG 100 UNIT/ML SUBCUTANEOUS SOLUTION 10 UNITS BID BEFORE BREAKFAST AND LUNCH INSULIN ASPART 30936032764 No Longer Active NICOLETTE Hitchcock Active NOVOLOG 100 UNIT/ML SUBCUTANEOUS SOLUTION 10 UNITS BEFORE SUPPER INSULIN ASPART 71127886898 No Longer Active NICOLETTE Hitchcock Active INVEGA 6 MG ORAL TABLET EXTENDED RELEASE 24 HOUR 1 po daily for schizophrenia PALIPERIDONE 47777009918 Active Pelon Quach MD Active LAMICTAL 25 MG ORAL TABLET 2 tabs by mouth twice a day LAMOTRIGINE 44270246244 No Longer Active Pelon Quach MD Active BACTROBAN 2 % EXTERNAL OINTMENT Apply to affected area BID 06/28 MUPIROCIN 84573854940 No Longer Active Pelon Quach MD Active INVEGA 6 MG ORAL TABLET EXTENDED RELEASE 24 HOUR 1 po daily for Schizophrenia PALIPERIDONE 39359975238 No Longer Active Pelon Quach MD Active TYLENOL 8 HOUR 650 MG ORAL TABLET EXTENDED RELEASE Take 1 tab po up to 3 times daily as needed ACETAMINOPHEN 74613636282 No Longer Active Pelon Quach MD Active IPRATROPIUM-ALBUTEROL 0.5-2.5 (3) MG/3ML INHALATION SOLUTION 1 neb treatment QID for cough Dx: J06.9 IPRATROPIUM-ALBUTEROL 10322784323 No Longer Active Pelon Quach MD Active BACTRIM DS 800-160 MG ORAL TABLET 1 tab by mouth twice daily 2016 TRIMETHOPRIM-SULFAMETHOXAZOLE 53282654706 No Longer Active Pelon Quach MD Active BACTRIM DS 800-160 MG ORAL TABLET 1 twice a day SULFAMETHOXAZOLE-TRIMETHOPRIM 93994068417 No Longer Active Pelon Quach MD Active IPRATROPIUM-ALBUTEROL 0.5-2.5 (3) MG/3ML INHALATION SOLUTION 1 neb treatment four times daily, for cough IPRATROPIUM-ALBUTEROL 56136302226 No Longer Active Jaycee Torrez APRN Active FUROSEMIDE 40 MG ORAL TABLET Take one by mouth daily FUROSEMIDE 87240580951 No Longer Active Jaycee Torrez APRN Active LANTUS 100 UNIT/ML SUBCUTANEOUS SOLUTION 20 SUBQ AT HS INSULIN GLARGINE 77723520982 Active Pelon Quach MD Active LAMICTAL 25 MG ORAL TABLET 2 tabs po BID for convulsions LAMOTRIGINE 98131835896 Active Jaycee Torrez APRN Active LASIX 20 MG ORAL TABLET 1 tablet by mouth every morning for edema FUROSEMIDE 44313989914 Active Jaycee Arell ELEMENT WINDING MACHINE TENDER Active BUSPIRONE HCL 10 MG ORAL TABLET 1 tab by mouth BID BUSPIRONE HCL 24384231839 Active Jaycee Juan Davidll ELEMENT WINDING MACHINE TENDER Active ADULT ASPIRIN EC LOW STRENGTH 81 MG ORAL TABLET DELAYED RELEASE Take one by mouth daily ASPIRIN 77765492905 No Longer Active Pelon Quach MD Active ASPIRIN 81 MG ORAL TABLET 1 po qd ASPIRIN 93136285920 Active Pelon Quach MD Active ZOFRAN 4 MG ORAL TABLET 1 po q6hr PRN Nausea ONDANSETRON HCL 54668571517 No Longer Active Pelon Quach MD Active TYLENOL 325 MG ORAL TABLET 1-2 pills by mouth every 6 hours if needed for pain /fever ACETAMINOPHEN 08054757283 No Longer Active Pelon Quach MD Active INVEGA 6 MG ORAL TABLET EXTENDED RELEASE 24 HOUR 1 TAB ONCE DAILY PALIPERIDONE 17738663544 No Longer Active Carly Suggs Active TEGRETOL 200 MG ORAL TABLET by mouth twice a day CARBAMAZEPINE 47492110423 Active Taty Alvarado MD PhD Active FLOMAX 0.4 MG ORAL CAPSULE 1 Daily TAMSULOSIN HCL 85553275808 Active Marianela Juarez Active DILANTIN 100 MG ORAL CAPSULE Take one by mouth daily PHENYTOIN SODIUM EXTENDED 70937501503 No Longer Active Marianela Juarez Active DEPAKOTE SPRINKLES 125 MG ORAL CAPSULE DELAYED RELEASE SPRINKLE 4 capsules by mouth twice daily DIVALPROEX SODIUM 08471382545 No Longer Active Marianelachandrika Juarez Active LAMICTAL 200 MG ORAL TABLET 1 BY MOUTH TWICE A DAY LAMOTRIGINE 45949778433 Active Marianela Raida Active LAMICTAL 100 MG ORAL TABLET by mouth twice a day LAMOTRIGINE 01881096350 No Longer Active Marianelachandrika Juarez Active LAMICTAL 150 MG ORAL TABLET by mouth twice a day LAMOTRIGINE 49743829880 No Longer Active Marianela Raida Active DILANTIN 100 MG ORAL CAPSULE Take three by mouth daily PHENYTOIN SODIUM EXTENDED 87638612137 No Longer Active Marianela Shankarronny Active SENOKOT 8.6 MG ORAL TABLET take at bedtime SENNOSIDES 66814858798 Active Pelon Quach MD Active LIPITOR 20 MG ORAL TABLET take at bedtime ATORVASTATIN CALCIUM 92983239243 Active Glenn Thornton MD Active LISINOPRIL 2.5 MG ORAL TABLET Take one by mouth daily LISINOPRIL 78715897432 Active Glenn Thornton MD Active TRENTAL 400 MG CR-TABS by mouth twice a day PENTOXIFYLLINE 04074969627 Active Glenn Thornton MD Active KLOR-CON 10 10 MEQ ORAL TABLET EXTENDED RELEASE Take one by mouth daily POTASSIUM CHLORIDE 63362866514 Active Glenn Thornton MD Active DILANTIN 100 MG ORAL CAPSULE Take three by mouth daily DILANTIN 100 MG ORAL CAPSULE 602391 PHENYTOIN SODIUM EXTENDED Inactive LAMICTAL 150 MG ORAL TABLET by mouth twice a day LAMICTAL 150 MG ORAL TABLET 388042 LAMOTRIGINE Inactive LAMICTAL 100 MG ORAL TABLET by mouth twice a day LAMICTAL 100 MG ORAL TABLET 189688 LAMOTRIGINE Inactive DEPAKOTE SPRINKLES 125 MG ORAL CAPSULE DELAYED RELEASE SPRINKLE 4 capsules by mouth twice daily DEPAKOTE SPRINKLES 125 MG ORAL CAPSULE DELAYED RELEASE SPRINKLE 7460760 DIVALPROEX SODIUM Inactive DILANTIN 100 MG ORAL CAPSULE Take one by mouth daily DILANTIN 100 MG ORAL CAPSULE 930448 PHENYTOIN SODIUM EXTENDED Inactive INVEGA 6 MG ORAL TABLET EXTENDED RELEASE 24 HOUR 1 TAB ONCE DAILY INVEGA 6 MG ORAL TABLET EXTENDED RELEASE 24 HOUR PALIPERIDONE Inactive TYLENOL 325 MG ORAL TABLET 1-2 pills by mouth every 6 hours if needed for pain /fever TYLENOL 325 MG ORAL TABLET 627662 ACETAMINOPHEN Inactive ZOFRAN 4 MG ORAL TABLET 1 po q6hr PRN Nausea ZOFRAN 4 MG ORAL TABLET 520250 ONDANSETRON HCL Inactive ADULT ASPIRIN EC LOW STRENGTH 81 MG ORAL TABLET DELAYED RELEASE Take one by mouth daily ADULT ASPIRIN EC LOW STRENGTH 81 MG ORAL TABLET DELAYED RELEASE 113253 ASPIRIN Inactive FUROSEMIDE 40 MG ORAL TABLET Take one by mouth daily FUROSEMIDE 40 MG ORAL TABLET 096490 FUROSEMIDE Inactive BACTRIM DS 800-160 MG ORAL TABLET 1 twice a day BACTRIM DS 800-160 MG ORAL TABLET 066872 SULFAMETHOXAZOLE-TRIMETHOPRIM Inactive IPRATROPIUM-ALBUTEROL 0.5-2.5 (3) MG/3ML INHALATION SOLUTION 1 neb treatment QID for cough Dx: J06.9 IPRATROPIUM-ALBUTEROL 0.5-2.5 ( 3) MG/3ML INHALATION SOLUTION 3746936 IPRATROPIUM-ALBUTEROL Inactive TYLENOL 8 HOUR 650 MG [...] a day LAMICTAL 25 MG ORAL TABLET 133333 LAMOTRIGINE Inactive NOVOLOG 100 UNIT/ML SUBCUTANEOUS SOLUTION 10 UNITS BEFORE SUPPER NOVOLOG 100 UNIT/ML SUBCUTANEOUS SOLUTION INSULIN ASPART Inactive NOVOLOG 100 UNIT/ML SUBCUTANEOUS SOLUTION 10 UNITS BID BEFORE BREAKFAST AND LUNCH NOVOLOG 100 UNIT/ML SUBCUTANEOUS SOLUTION INSULIN ASPART Inactive BANOPHEN 25 MG ORAL TABLET 1 po every 6 hours PRN allergic reaction BANOPHEN 25 MG ORAL TABLET 4061274 DIPHENHYDRAMINE HCL Inactive IPRATROPIUM-ALBUTEROL 0.5-2.5 (3) MG/3ML INHALATION SOLUTION 1 neb treatment four times daily, for cough IPRATROPIUM-ALBUTEROL 0.5- 2.5 (3) MG/3ML INHALATION SOLUTION 3160401 IPRATROPIUM-ALBUTEROL Inactive BACTRIM DS 800-160 MG ORAL TABLET 1 tab by mouth twice daily 2016 BACTRIM DS 800-160 MG ORAL TABLET 054491 TRIMETHOPRIM- SULFAMETHOXAZOLE Inactive Advance Directives Directive Description Start Date DURABLE POWER OF DRAFT ROLLER PICKER FOR HEALTHCARE PERMISSION TO SHARE ADVANCED DIRECTIVE Vital Signs Date Name Value Unit Range Description blood pressure, diastolic 68 mm[Hg] BP daly blood pressure, systolic 149 mm[Hg] BP sys height E&M 66 [in_us] Bdy height pulse rate E&M 95 /min Heart rate temperature E&M 97.6 [degF] Body temperature weight E&M 171 [lb_av] Weight Measured blood pressure, diastolic 77 mm[Hg] BP adly blood pressure, systolic 159 mm[Hg] BP sys [...] HGBA1C - Chemistry sodium, serum 123 mmol/L 908-587 7389/04/25 carbon dioxide, venous blood 26.2 mmol/L 21.0-32.0 [...] mg/dL Encounters Code Encounter Date Provider Facility CPT-01311 [id number] Vst-Est Level IV 10:45:13 CDT Pelon Quach MD [facility] CPT-23599 46281-Crf Vst-Est Level IV 13:48:14 CDT Pelon Quach MD [facility] CPT-47762 26781-Fvw Vst-Est Level II 13:40:42 CDT Pelon Quach MD [facility] CPT-45931 42118-Seu Vst-Est Level III 13:36:24 CDT Pelon Quach MD [facility] CPT-38247 Level 4 Est. Patient 18:11:18 CDT Pelon Quach MD [facility] CPT-15598 Level 4 Est. Patient 14:46:38 CDT Pelon Quach MD [facility] CPT-82868 Level 4 Est. Patient 08:43:11 CDT Pelon Quach MD [facility] CPT-79597 Level 4 Est. Patient 14:27:30 CDT Pelon Quach MD [facility] CPT-59319 Level 3 Est. Patient 10:32:17 CDT Jaycee Torrez APRN [facility] CPT-76568 Level 3 Est. Patient 10:15:07 CDT Pelon Quach MD [facility] CPT-16380 Level 4 Est. Patient 09:30:54 CDT Pelon Quach MD [facility] CPT-02338 Level 4 Est. Patient 14:34:25 CDT Pelon Quach MD [facility] CPT-19725 Level 3 Est. Patient 11:51:35 REJECTOR Rick Henson DO [facility] CPT-00121 Level 3 Est. Patient 12:13:33 REJECTOR Erik Baptiste MD [facility] CPT-45204 Level 3 Est. Patient 09:40:44 REJECTOR Jaycee Torrez [facility] CPT-49469 Level 3 Est. Patient 09:36:32 REJECTOR Jaycee Torrez [facility] CPT-45733 Level 4 Est. Patient 16:57:02 REJECTOR Pelon Quach MD -78635 Level 4 Est. Patient 22:19:34 CDT Pelon Quach MD [facility] CPT-45264 Level 3 Est. Patient 00:34:41 CDT Pelon Quach MD [facility] CPT-62241 Level 4 Est. Patient 11:19:14 CDT Pelon Quach MD [facility] CPT-05926 Level 4 Est. Patient 16:43:30 REJECTOR Pelon Quach MD [facility] CPT-85947 Level 4 Est. Patient 12:42:18 CDT Pelon Quach MD [facility] CPT-71655 Level 4 Est. Patient 11:52:20 CDT Pelon Quach MD [facility] CPT-77666 Level 4 Est. Patient 13:59:46 CDT Pelon Quach MD [facility] CPT-31894 Level 4 Est. Patient 15:10:48 CDT Pelon Quach MD [facility] CPT-54380 Level 4 Est. Patient 17:13:06 CDT Pelon Quach MD [facility] CPT-86925 Level 4 Est. Patient 18:47:47 CDT Pelon Quach MD [facility] CPT-54968 Level 3 Est. Patient 21:01:27 CDT Pelon Quach MD [facility] CPT-84912 Level 3 Est. Patient 14:07:03 CDT Taty Alvarado MD PhD [facility] CPT-13248 Level 3 New Patient 21:39:52 REJECTOR Pelon Quach MD [facility] CPT-60711 Level 3 Est. Patient 14:28:44 CDT Glenn Thornton MD [facility] CPT-22739 Level 3 Est. Patient 16:35:00 CDT Glenn Thornton MD [facility] CPT-33868 Level 4 New Patient 17:06:27 CDT Glenn Thornton MD [facility] [place] Procedures Code Procedure Name Date Entry Date Standard Description CPT-52837 Shoulder, right, comp min 2V - XRAY USE ONLY 10:47:10 CDT CPT-G0439 Subsequent Annual Wellness Exam 18:11:17 CDT CPT-G0438 Initial Annual Wellness Exam 09:30:54 CDT CPT-21035 Prevnar 13 Intramuscular Suspension 14:34:25 CDT 12/27 CPT-42308 Chest 2V Frontal and Lat - XRAY USE ONLY 11:56:13 REJECTOR CPT-51940 Cystoscopy 14:28:44 CDT CPT-00138 Bladder Scan 14:28:44 CDT CPT-95731 Indwelling Cath Change 17:06:27 CDT CPT-86115 Cystoscopy 17:06:27 CDT
--- OUTSIDE RECORDS SUMMARY | 2018-06-22 12:08 | XMS REPORT | Clinical Summary ---
Author Author Admin, ONESIMO Organization [facility] [place] Address Unknown Phone Unavailable Allergies, Adverse [...] as needed for muscle spasm/pain CYCLOBENZAPRINE HCL 74657114052 Active Pelon Quach MD Active BENADRYL 25 MG ORAL CAPSULE 1 po q8hr PRN Congestion DIPHENHYDRAMINE HCL 40916497374 Active Pelon Quach MD Active ZOFRAN 4 MG ORAL TABLET 1 po q6hr PRN Nausea ONDANSETRON HCL 61023705836 Active Pelon Quach MD Active IMODIUM A-D 2 MG ORAL TABLET One QID prn diarrhea. No more than 4 tabs daily LOPERAMIDE HCL 84206793817 Active Pelon Quach MD Active TYLENOL 325 MG ORAL TABLET 2 tabs po prn for pain elevated temp ACETAMINOPHEN 06310895930 Active Pelon Quach MD Active MUCINEX D 60-600 MG ORAL TABLET EXTENDED RELEASE 12 HOUR 1 po BID PRN Congestion PSEUDOEPHEDRINE-GUAIFENESIN 02539996785 Active Pelon Quach MD Active IBUPROFEN 200 MG ORAL TABLET q 6hrs prn pain IBUPROFEN 97096582531 Active Pelon Quach MD Active LORATADINE 10 MG ORAL TABLET 1 tablet by mouth daily prn LORATADINE 00306058161 Active Pelon Quach MD Active BANOPHEN 25 MG ORAL TABLET 1 po every 6 hours PRN allergic reaction DIPHENHYDRAMINE HCL 54344459207 No Longer Active Pelon Quach MD Active EASY TOUCH ALCOHOL PREP MEDIUM 70 % PAD Use with each finger stick and insulin admin Dx: E11.9 ALCOHOL SWABS 86960587009 Active Jaycee Torrez APRN Active HUMALOG KWIKPEN 100 UNIT/ML SUBCUTANEOUS SOLUTION PEN-INJECTOR inject 10 units subcutaneously before meals also sliding scale INSULIN LISPRO 67132547969 Active Pelon Quach MD Active NOVOLOG 100 UNIT/ML SUBCUTANEOUS SOLUTION 10 UNITS BID BEFORE BREAKFAST AND LUNCH INSULIN ASPART 89701296953 No Longer Active NICOLETTE Hitchcock Active NOVOLOG 100 UNIT/ML SUBCUTANEOUS SOLUTION 10 UNITS BEFORE SUPPER INSULIN ASPART 69886023638 No Longer Active NICOLETTE Hitchcock Active INVEGA 6 MG ORAL TABLET EXTENDED RELEASE 24 HOUR 1 po daily for schizophrenia PALIPERIDONE 31133392511 Active Pelon Quach MD Active LAMICTAL 25 MG ORAL TABLET 2 tabs by mouth twice a day LAMOTRIGINE 89339799423 No Longer Active Pelon Quach MD Active BACTROBAN 2 % EXTERNAL OINTMENT Apply to affected area BID 06/28 MUPIROCIN 36214728587 No Longer Active Pelon Quach MD Active INVEGA 6 MG ORAL TABLET EXTENDED RELEASE 24 HOUR 1 po daily for Schizophrenia PALIPERIDONE 46083213223 No Longer Active Pelon Quach MD Active TYLENOL 8 HOUR 650 MG ORAL TABLET EXTENDED RELEASE Take 1 tab po up to 3 times daily as needed ACETAMINOPHEN 46278066514 No Longer Active Pelon Quach MD Active IPRATROPIUM-ALBUTEROL 0.5-2.5 (3) MG/3ML INHALATION SOLUTION 1 neb treatment QID for cough Dx: J06.9 IPRATROPIUM-ALBUTEROL 27973038868 No Longer Active Pelon Quach MD Active BACTRIM DS 800-160 MG ORAL TABLET 1 tab by mouth twice daily 2016 TRIMETHOPRIM-SULFAMETHOXAZOLE 68425331590 No Longer Active Pelon Quach MD Active BACTRIM DS 800-160 MG ORAL TABLET 1 twice a day SULFAMETHOXAZOLE-TRIMETHOPRIM 81038071457 No Longer Active Pelon Quach MD Active IPRATROPIUM-ALBUTEROL 0.5-2.5 (3) MG/3ML INHALATION SOLUTION 1 neb treatment four times daily, for cough IPRATROPIUM-ALBUTEROL 16006286053 No Longer Active Jaycee Torrez APRN Active FUROSEMIDE 40 MG ORAL TABLET Take one by mouth daily FUROSEMIDE 22634138752 No Longer Active Jaycee Torrez APRN Active LANTUS 100 UNIT/ML SUBCUTANEOUS SOLUTION 20 SUBQ AT HS INSULIN GLARGINE 98359255531 Active Pelon Quach MD Active LAMICTAL 25 MG ORAL TABLET 2 tabs po BID for convulsions LAMOTRIGINE 99800613000 Active Jaycee Torrez APRN Active LASIX 20 MG ORAL TABLET 1 tablet by mouth every morning for edema FUROSEMIDE 06945561595 Active Jaycee Arell OIL PUMP STATION OPERATOR CHIEF Active BUSPIRONE HCL 10 MG ORAL TABLET 1 tab by mouth BID BUSPIRONE HCL 05055849302 Active Jaycee Juan Davidll OIL PUMP STATION OPERATOR CHIEF Active ADULT ASPIRIN EC LOW STRENGTH 81 MG ORAL TABLET DELAYED RELEASE Take one by mouth daily ASPIRIN 20102129459 No Longer Active Pelon Quach MD Active ASPIRIN 81 MG ORAL TABLET 1 po qd ASPIRIN 65015831402 Active Pelon Quach MD Active ZOFRAN 4 MG ORAL TABLET 1 po q6hr PRN Nausea ONDANSETRON HCL 18763926728 No Longer Active Pelon Quach MD Active TYLENOL 325 MG ORAL TABLET 1-2 pills by mouth every 6 hours if needed for pain /fever ACETAMINOPHEN 06690482814 No Longer Active Pelon Quach MD Active INVEGA 6 MG ORAL TABLET EXTENDED RELEASE 24 HOUR 1 TAB ONCE DAILY PALIPERIDONE 60888374096 No Longer Active Carly Suggs Active TEGRETOL 200 MG ORAL TABLET by mouth twice a day CARBAMAZEPINE 77042764433 Active Taty Alvarado MD PhD Active FLOMAX 0.4 MG ORAL CAPSULE 1 Daily TAMSULOSIN HCL 02614789371 Active Marianela Juarez Active DILANTIN 100 MG ORAL CAPSULE Take one by mouth daily PHENYTOIN SODIUM EXTENDED 32433315839 No Longer Active Marianela Juarez Active DEPAKOTE SPRINKLES 125 MG ORAL CAPSULE DELAYED RELEASE SPRINKLE 4 capsules by mouth twice daily DIVALPROEX SODIUM 23516953625 No Longer Active Marianelachandrika Juarez Active LAMICTAL 200 MG ORAL TABLET 1 BY MOUTH TWICE A DAY LAMOTRIGINE 17112244076 Active Marianela Raida Active LAMICTAL 100 MG ORAL TABLET by mouth twice a day LAMOTRIGINE 48766990200 No Longer Active Marianelachandrika Juarez Active LAMICTAL 150 MG ORAL TABLET by mouth twice a day LAMOTRIGINE 91970483748 No Longer Active Marianela Raida Active DILANTIN 100 MG ORAL CAPSULE Take three by mouth daily PHENYTOIN SODIUM EXTENDED 25452063962 No Longer Active Marianela Shankarronny Active SENOKOT 8.6 MG ORAL TABLET take at bedtime SENNOSIDES 77260442131 Active Pelon Quach MD Active LIPITOR 20 MG ORAL TABLET take at bedtime ATORVASTATIN CALCIUM 64998023743 Active Glenn Thornton MD Active LISINOPRIL 2.5 MG ORAL TABLET Take one by mouth daily LISINOPRIL 19345986556 Active Glenn Thornton MD Active TRENTAL 400 MG CR-TABS by mouth twice a day PENTOXIFYLLINE 67502486458 Active Glenn Thornton MD Active KLOR-CON 10 10 MEQ ORAL TABLET EXTENDED RELEASE Take one by mouth daily POTASSIUM CHLORIDE 38469837035 Active Glenn Thornton MD Active DILANTIN 100 MG ORAL CAPSULE Take three by mouth daily DILANTIN 100 MG ORAL CAPSULE 219796 PHENYTOIN SODIUM EXTENDED Inactive LAMICTAL 150 MG ORAL TABLET by mouth twice a day LAMICTAL 150 MG ORAL TABLET 110077 LAMOTRIGINE Inactive LAMICTAL 100 MG ORAL TABLET by mouth twice a day LAMICTAL 100 MG ORAL TABLET 881202 LAMOTRIGINE Inactive DEPAKOTE SPRINKLES 125 MG ORAL CAPSULE DELAYED RELEASE SPRINKLE 4 capsules by mouth twice daily DEPAKOTE SPRINKLES 125 MG ORAL CAPSULE DELAYED RELEASE SPRINKLE 2212909 DIVALPROEX SODIUM Inactive DILANTIN 100 MG ORAL CAPSULE Take one by mouth daily DILANTIN 100 MG ORAL CAPSULE 437725 PHENYTOIN SODIUM EXTENDED Inactive INVEGA 6 MG ORAL TABLET EXTENDED RELEASE 24 HOUR 1 TAB ONCE DAILY INVEGA 6 MG ORAL TABLET EXTENDED RELEASE 24 HOUR PALIPERIDONE Inactive TYLENOL 325 MG ORAL TABLET 1-2 pills by mouth every 6 hours if needed for pain /fever TYLENOL 325 MG ORAL TABLET 206083 ACETAMINOPHEN Inactive ZOFRAN 4 MG ORAL TABLET 1 po q6hr PRN Nausea ZOFRAN 4 MG ORAL TABLET 426341 ONDANSETRON HCL Inactive ADULT ASPIRIN EC LOW STRENGTH 81 MG ORAL TABLET DELAYED RELEASE Take one by mouth daily ADULT ASPIRIN EC LOW STRENGTH 81 MG ORAL TABLET DELAYED RELEASE 064398 ASPIRIN Inactive FUROSEMIDE 40 MG ORAL TABLET Take one by mouth daily FUROSEMIDE 40 MG ORAL TABLET 686190 FUROSEMIDE Inactive BACTRIM DS 800-160 MG ORAL TABLET 1 twice a day BACTRIM DS 800-160 MG ORAL TABLET 884693 SULFAMETHOXAZOLE-TRIMETHOPRIM Inactive IPRATROPIUM-ALBUTEROL 0.5-2.5 (3) MG/3ML INHALATION SOLUTION 1 neb treatment QID for cough Dx: J06.9 IPRATROPIUM-ALBUTEROL 0.5-2.5 ( 3) MG/3ML INHALATION SOLUTION 2459405 IPRATROPIUM-ALBUTEROL Inactive TYLENOL 8 HOUR 650 MG [...] a day LAMICTAL 25 MG ORAL TABLET 645220 LAMOTRIGINE Inactive NOVOLOG 100 UNIT/ML SUBCUTANEOUS SOLUTION 10 UNITS BEFORE SUPPER NOVOLOG 100 UNIT/ML SUBCUTANEOUS SOLUTION INSULIN ASPART Inactive NOVOLOG 100 UNIT/ML SUBCUTANEOUS SOLUTION 10 UNITS BID BEFORE BREAKFAST AND LUNCH NOVOLOG 100 UNIT/ML SUBCUTANEOUS SOLUTION INSULIN ASPART Inactive BANOPHEN 25 MG ORAL TABLET 1 po every 6 hours PRN allergic reaction BANOPHEN 25 MG ORAL TABLET 8116872 DIPHENHYDRAMINE HCL Inactive IPRATROPIUM-ALBUTEROL 0.5-2.5 (3) MG/3ML INHALATION SOLUTION 1 neb treatment four times daily, for cough IPRATROPIUM-ALBUTEROL 0.5- 2.5 (3) MG/3ML INHALATION SOLUTION 4463247 IPRATROPIUM-ALBUTEROL Inactive BACTRIM DS 800-160 MG ORAL TABLET 1 tab by mouth twice daily 2016 BACTRIM DS 800-160 MG ORAL TABLET 980546 TRIMETHOPRIM- SULFAMETHOXAZOLE Inactive Advance Directives Directive Description Start Date DURABLE POWER OF HYDROMETEOROLOGY TEACHER FOR HEALTHCARE PERMISSION TO SHARE ADVANCED DIRECTIVE [...] HGBA1C - Chemistry sodium, serum 123 mmol/L 355-686 4051/04/25 carbon dioxide, venous blood 26.2 mmol/L 21.0-32.0 [...] mg/dL Encounters Code Encounter Date Provider Facility CPT-35490 [id number] Vst-Est Level IV 10:45:13 CDT Pelon Quach MD [facility] CPT-86190 [id number] Vst-Est Level IV 13:48:14 CDT Pelon Quach MD [facility] CPT-01402 [id number] Vst-Est Level II 13:40:42 CDT Pelon Quach MD [facility] CPT-82617 [id number] Vst-Est Level III 13:36:24 CDT Pelon Quach MD [facility] CPT-38818 Level 4 Est. Patient 18:11:18 CDT Pelon Quach MD [facility] CPT-23572 Level 4 Est. Patient 14:46:38 CDT Pelon Quach MD [facility] CPT-00572 Level 4 Est. Patient 08:43:11 CDT Pelon Quach MD [facility] CPT-55086 Level 4 Est. Patient 14:27:30 CDT Pelon Quach MD [facility] CPT-94065 Level 3 Est. Patient 10:32:17 CDT Jaycee Torrez APRN [facility] CPT-31648 Level 3 Est. Patient 10:15:07 CDT Pelon Quach MD [facility] CPT-08175 Level 4 Est. Patient 09:30:54 CDT Pelon Quach MD [facility] CPT-13663 Level 4 Est. Patient 14:34:25 CDT Pelon Quach MD [facility] CPT-65157 Level 3 Est. Patient 11:51:35 PLY BANDER Rick Henson DO [facility] CPT-07430 Level 3 Est. Patient 12:13:33 PLY BANDER Erik Baptiste MD [facility] CPT-17012 Level 3 Est. Patient 09:40:44 PLY BANDER Jaycee Torrez [facility] CPT-93268 Level 3 Est. Patient 09:36:32 PLY BANDER Jaycee Torrez [facility] CPT-47519 Level 4 Est. Patient 16:57:02 PLY BANDER Pelon Quach MD [facility]-01035 Level 4 Est. Patient 22:19:34 CDT Pelon Quach MD [facility] CPT-61982 Level 3 Est. Patient 00:34:41 CDT Pelon Quach MD [facility] CPT-22575 Level 4 Est. Patient 11:19:14 CDT Pelon Quach MD [facility] CPT-80566 Level 4 Est. Patient 16:43:30 PLY BANDER Pelon Quach MD [facility] CPT-37692 Level 4 Est. Patient 12:42:18 CDT Pelon Quach MD [facility] CPT-95736 Level 4 Est. Patient 11:52:20 CDT Pelon Quach MD [facility] CPT-20726 Level 4 Est. Patient 13:59:46 CDT Pelon Quach MD [facility] CPT-88802 Level 4 Est. Patient 15:10:48 CDT Pelon Quach MD [facility] CPT-01609 Level 4 Est. Patient 17:13:06 CDT Pelon Quach MD [facility] CPT-26934 Level 4 Est. Patient 18:47:47 CDT Pelon Quach MD [facility] CPT-56318 Level 3 Est. Patient 21:01:27 CDT Pelon Quach MD [facility] CPT-24534 Level 3 Est. Patient 14:07:03 CDT Taty Alvarado MD PhD [facility] CPT-33185 Level 3 New Patient 21:39:52 PLY BANDER Pelon Quach MD [facility] CPT-75571 Level 3 Est. Patient 14:28:44 CDT Glenn Thornton MD [facility] CPT-69020 Level 3 Est. Patient 16:35:00 CDT Glenn Thornton MD [facility] CPT-75398 Level 4 New Patient 17:06:27 CDT lGenn Thornton MD [facility] [place] Procedures Code Procedure Name Date Entry Date Standard Description CPT-85949 Shoulder, right, comp min 2V - XRAY USE ONLY 10:47:10 CDT CPT-G0439 Subsequent Annual Wellness Exam 18:11:17 CDT CPT-G0438 Initial Annual Wellness Exam 09:30:54 CDT CPT-33238 Prevnar 13 Intramuscular Suspension 14:34:25 CDT 12/27 CPT-50383 Chest 2V Frontal and Lat - XRAY USE ONLY 11:56:13 PLY BANDER CPT-12041 Cystoscopy 14:28:44 CDT CPT-07715 Bladder Scan 14:28:44 CDT CPT-33766 Indwelling Cath Change 17:06:27 CDT CPT-72580 Cystoscopy 17:06:27 CDT
--- OUTSIDE RECORDS SUMMARY | 2018-06-22 12:09 | XMS REPORT | Clinical Summary ---
Author Author Admin, ONESIMO Organization [facility] [place] Address Unknown Phone Unavailable Allergies, Adverse Reactions, [...] schizophrenia, unspecified state Other schizophrenia 295.90 Active Pleon Quach MD Unspecified schizophrenia, unspecified state Type [...] MD Inguinal hernia, right ICD-550.90 Inactive Pelon Qauch MD URI - acute ICD-465.9 Inactive Erik [...] as needed for muscle spasm/pain CYCLOBENZAPRINE HCL 39215380402 Active Pelon Quach MD Active BENADRYL 25 MG ORAL CAPSULE 1 po q8hr PRN Congestion DIPHENHYDRAMINE HCL 52092493968 Active Pelon Quach MD Active ZOFRAN 4 MG ORAL TABLET 1 po q6hr PRN Nausea ONDANSETRON HCL 03056408780 Active Pelon Quach MD Active IMODIUM A-D 2 MG ORAL TABLET One QID prn diarrhea. No more than 4 tabs daily LOPERAMIDE HCL 61148029449 Active Pelon Quach MD Active TYLENOL 325 MG ORAL TABLET 2 tabs po prn for pain elevated temp ACETAMINOPHEN 45199107668 Active Pelon Quach MD Active MUCINEX D 60-600 MG ORAL TABLET EXTENDED RELEASE 12 HOUR 1 po BID PRN Congestion PSEUDOEPHEDRINE-GUAIFENESIN 18610337038 Active Pelno Quach MD Active IBUPROFEN 200 MG ORAL TABLET q 6hrs prn pain IBUPROFEN 29883457783 Active Pelon Quach MD Active LORATADINE 10 MG ORAL TABLET 1 tablet by mouth daily prn LORATADINE 86647977066 Active Pelon Quach MD Active BANOPHEN 25 MG ORAL TABLET 1 po every 6 hours PRN allergic reaction DIPHENHYDRAMINE HCL 61393280331 No Longer Active Pelon Quach MD Active EASY TOUCH ALCOHOL PREP MEDIUM 70 % PAD Use with each finger stick and insulin admin Dx: E11.9 ALCOHOL SWABS 06741386554 Active Jaycee Torrez APRN Active HUMALOG KWIKPEN 100 UNIT/ML SUBCUTANEOUS SOLUTION PEN-INJECTOR inject 10 units subcutaneously before meals also sliding scale INSULIN LISPRO 31667314106 Active Pelon Quach MD Active NOVOLOG 100 UNIT/ML SUBCUTANEOUS SOLUTION 10 UNITS BID BEFORE BREAKFAST AND LUNCH INSULIN ASPART 08801359446 No Longer Active NICOLETTE Hitchcock Active NOVOLOG 100 UNIT/ML SUBCUTANEOUS SOLUTION 10 UNITS BEFORE SUPPER INSULIN ASPART 88002598056 No Longer Active NICOLETTE Hitchcock Active INVEGA 6 MG ORAL TABLET EXTENDED RELEASE 24 HOUR 1 po daily for schizophrenia PALIPERIDONE 41524884883 Active Pelon Quach MD Active LAMICTAL 25 MG ORAL TABLET 2 tabs by mouth twice a day LAMOTRIGINE 54293010794 No Longer Active Pelon Quach MD Active BACTROBAN 2 % EXTERNAL OINTMENT Apply to affected area BID 06/28 MUPIROCIN 60808519645 No Longer Active Pelon Quach MD Active INVEGA 6 MG ORAL TABLET EXTENDED RELEASE 24 HOUR 1 po daily for Schizophrenia PALIPERIDONE 56497170720 No Longer Active Pelon Quach MD Active TYLENOL 8 HOUR 650 MG ORAL TABLET EXTENDED RELEASE Take 1 tab po up to 3 times daily as needed ACETAMINOPHEN 42082187341 No Longer Active Pelon Quach MD Active IPRATROPIUM-ALBUTEROL 0.5-2.5 (3) MG/3ML INHALATION SOLUTION 1 neb treatment QID for cough Dx: J06.9 IPRATROPIUM-ALBUTEROL 24280614725 No Longer Active Pelon Quach MD Active BACTRIM DS 800-160 MG ORAL TABLET 1 tab by mouth twice daily 2016 TRIMETHOPRIM-SULFAMETHOXAZOLE 37678788318 No Longer Active Pelon Quach MD Active BACTRIM DS 800-160 MG ORAL TABLET 1 twice a day SULFAMETHOXAZOLE-TRIMETHOPRIM 49033256374 No Longer Active Pelon Quach MD Active IPRATROPIUM-ALBUTEROL 0.5-2.5 (3) MG/3ML INHALATION SOLUTION 1 neb treatment four times daily, for cough IPRATROPIUM-ALBUTEROL 48049137246 No Longer Active Jaycee Torrez APRN Active FUROSEMIDE 40 MG ORAL TABLET Take one by mouth daily FUROSEMIDE 09383324725 No Longer Active Jaycee Torrez APRN Active LANTUS 100 UNIT/ML SUBCUTANEOUS SOLUTION 20 SUBQ AT HS INSULIN GLARGINE 55592467964 Active Pelon Quach MD Active LAMICTAL 25 MG ORAL TABLET 2 tabs po BID for convulsions LAMOTRIGINE 55679189567 Active Jaycee Torrez APRN Active LASIX 20 MG ORAL TABLET 1 tablet by mouth every morning for edema FUROSEMIDE 39219050438 Active Jaycee Arell FOUNDRY METALLURGIST Active BUSPIRONE HCL 10 MG ORAL TABLET 1 tab by mouth BID BUSPIRONE HCL 88558757533 Active Jaycee Juan Davidll FOUNDRY METALLURGIST Active ADULT ASPIRIN EC LOW STRENGTH 81 MG ORAL TABLET DELAYED RELEASE Take one by mouth daily ASPIRIN 39339846143 No Longer Active Pelon Quach MD Active ASPIRIN 81 MG ORAL TABLET 1 po qd ASPIRIN 30034159426 Active Pelon Quach MD Active ZOFRAN 4 MG ORAL TABLET 1 po q6hr PRN Nausea ONDANSETRON HCL 20921088337 No Longer Active Pelon Quach MD Active TYLENOL 325 MG ORAL TABLET 1-2 pills by mouth every 6 hours if needed for pain /fever ACETAMINOPHEN 80938152624 No Longer Active Pelon Quach MD Active INVEGA 6 MG ORAL TABLET EXTENDED RELEASE 24 HOUR 1 TAB ONCE DAILY PALIPERIDONE 67551956289 No Longer Active Carly Suggs Active TEGRETOL 200 MG ORAL TABLET by mouth twice a day CARBAMAZEPINE 29168942343 Active Taty Alvarado MD PhD Active FLOMAX 0.4 MG ORAL CAPSULE 1 Daily TAMSULOSIN HCL 47917278767 Active Marianela Juarez Active DILANTIN 100 MG ORAL CAPSULE Take one by mouth daily PHENYTOIN SODIUM EXTENDED 83529070632 No Longer Active Marianela Juarez Active DEPAKOTE SPRINKLES 125 MG ORAL CAPSULE DELAYED RELEASE SPRINKLE 4 capsules by mouth twice daily DIVALPROEX SODIUM 00901865209 No Longer Active Marianelachandrika Juarez Active LAMICTAL 200 MG ORAL TABLET 1 BY MOUTH TWICE A DAY LAMOTRIGINE 50051520518 Active Marianela Raida Active LAMICTAL 100 MG ORAL TABLET by mouth twice a day LAMOTRIGINE 46089570282 No Longer Active Marianelachandrika Juarez Active LAMICTAL 150 MG ORAL TABLET by mouth twice a day LAMOTRIGINE 17669666640 No Longer Active Marianela Raida Active DILANTIN 100 MG ORAL CAPSULE Take three by mouth daily PHENYTOIN SODIUM EXTENDED 28387355043 No Longer Active Marianela Shankarronny Active SENOKOT 8.6 MG ORAL TABLET take at bedtime SENNOSIDES 41719169033 Active Pelon Quach MD Active LIPITOR 20 MG ORAL TABLET take at bedtime ATORVASTATIN CALCIUM 98588400509 Active Glenn Thornton MD Active LISINOPRIL 2.5 MG ORAL TABLET Take one by mouth daily LISINOPRIL 39813164383 Active Glenn Thornton MD Active TRENTAL 400 MG CR-TABS by mouth twice a day PENTOXIFYLLINE 74590007404 Active Glenn Thornton MD Active KLOR-CON 10 10 MEQ ORAL TABLET EXTENDED RELEASE Take one by mouth daily POTASSIUM CHLORIDE 96773015390 Active Glenn Thornton MD Active DILANTIN 100 MG ORAL CAPSULE Take three by mouth daily DILANTIN 100 MG ORAL CAPSULE 469853 PHENYTOIN SODIUM EXTENDED Inactive LAMICTAL 150 MG ORAL TABLET by mouth twice a day LAMICTAL 150 MG ORAL TABLET 122194 LAMOTRIGINE Inactive LAMICTAL 100 MG ORAL TABLET by mouth twice a day LAMICTAL 100 MG ORAL TABLET 397528 LAMOTRIGINE Inactive DEPAKOTE SPRINKLES 125 MG ORAL CAPSULE DELAYED RELEASE SPRINKLE 4 capsules by mouth twice daily DEPAKOTE SPRINKLES 125 MG ORAL CAPSULE DELAYED RELEASE SPRINKLE 0286378 DIVALPROEX SODIUM Inactive DILANTIN 100 MG ORAL CAPSULE Take one by mouth daily DILANTIN 100 MG ORAL CAPSULE 224764 PHENYTOIN SODIUM EXTENDED Inactive INVEGA 6 MG ORAL TABLET EXTENDED RELEASE 24 HOUR 1 TAB ONCE DAILY INVEGA 6 MG ORAL TABLET EXTENDED RELEASE 24 HOUR PALIPERIDONE Inactive TYLENOL 325 MG ORAL TABLET 1-2 pills by mouth every 6 hours if needed for pain /fever TYLENOL 325 MG ORAL TABLET 488587 ACETAMINOPHEN Inactive ZOFRAN 4 MG ORAL TABLET 1 po q6hr PRN Nausea ZOFRAN 4 MG ORAL TABLET 087401 ONDANSETRON HCL Inactive ADULT ASPIRIN EC LOW STRENGTH 81 MG ORAL TABLET DELAYED RELEASE Take one by mouth daily ADULT ASPIRIN EC LOW STRENGTH 81 MG ORAL TABLET DELAYED RELEASE 026285 ASPIRIN Inactive FUROSEMIDE 40 MG ORAL TABLET Take one by mouth daily FUROSEMIDE 40 MG ORAL TABLET 311039 FUROSEMIDE Inactive BACTRIM DS 800-160 MG ORAL TABLET 1 twice a day BACTRIM DS 800-160 MG ORAL TABLET 514497 SULFAMETHOXAZOLE-TRIMETHOPRIM Inactive IPRATROPIUM-ALBUTEROL 0.5-2.5 (3) MG/3ML INHALATION SOLUTION 1 neb treatment QID for cough Dx: J06.9 IPRATROPIUM-ALBUTEROL 0.5-2.5 ( 3) MG/3ML INHALATION SOLUTION 5555752 IPRATROPIUM-ALBUTEROL Inactive TYLENOL 8 HOUR 650 MG [...] a day LAMICTAL 25 MG ORAL TABLET 485546 LAMOTRIGINE Inactive NOVOLOG 100 UNIT/ML SUBCUTANEOUS SOLUTION 10 UNITS BEFORE SUPPER NOVOLOG 100 UNIT/ML SUBCUTANEOUS SOLUTION INSULIN ASPART Inactive NOVOLOG 100 UNIT/ML SUBCUTANEOUS SOLUTION 10 UNITS BID BEFORE BREAKFAST AND LUNCH NOVOLOG 100 UNIT/ML SUBCUTANEOUS SOLUTION INSULIN ASPART Inactive BANOPHEN 25 MG ORAL TABLET 1 po every 6 hours PRN allergic reaction BANOPHEN 25 MG ORAL TABLET 6924889 DIPHENHYDRAMINE HCL Inactive IPRATROPIUM-ALBUTEROL 0.5-2.5 (3) MG/3ML INHALATION SOLUTION 1 neb treatment four times daily, for cough IPRATROPIUM-ALBUTEROL 0.5- 2.5 (3) MG/3ML INHALATION SOLUTION 5270153 IPRATROPIUM-ALBUTEROL Inactive BACTRIM DS 800-160 MG ORAL TABLET 1 tab by mouth twice daily 2016 BACTRIM DS 800-160 MG ORAL TABLET 527450 TRIMETHOPRIM- SULFAMETHOXAZOLE Inactive Advance Directives Directive Description Start Date DURABLE POWER OF NUCLEAR EQUIPMENT DESIGN ENGINEER FOR HEALTHCARE PERMISSION TO SHARE ADVANCED DIRECTIVE [...] HGBA1C - Chemistry sodium, serum 123 mmol/L 975-064 9109/04/25 carbon dioxide, venous blood 26.2 mmol/L 21.0-32.0 [...] mg/dL Encounters Code Encounter Date Provider Facility CPT-28253 [id number] Vst-Est Level IV 10:45:13 CDT Pelon Quach MD [facility] CPT-25410 [id number] Vst-Est Level IV 13:48:14 CDT Pelon Quach MD [facility] CPT-96213 [id number] Vst-Est Level II 13:40:42 CDT Pelon Quach MD [facility] CPT-28354 [id number] Vst-Est Level III 13:36:24 CDT Pelon Quach MD [facility] CPT-95905 Level 4 Est. Patient 18:11:18 CDT Pelon Quach MD [facility] CPT-57722 Level 4 Est. Patient 14:46:38 CDT Pelon Quach MD [facility] CPT-97255 Level 4 Est. Patient 08:43:11 CDT Pelon Quach MD [facility] CPT-70272 Level 4 Est. Patient 14:27:30 CDT Pelon Quach MD [facility] CPT-61381 Level 3 Est. Patient 10:32:17 CDT Jaycee Torrez APRN [facility] CPT-24502 Level 3 Est. Patient 10:15:07 CDT Pelon Quach MD [facility] CPT-40100 Level 4 Est. Patient 09:30:54 CDT Pelon Quach MD [facility] CPT-27420 Level 4 Est. Patient 14:34:25 CDT Pelon Quach MD [facility] CPT-54861 Level 3 Est. Patient 11:51:35 [employer] Rick Henson DO [facility] CPT-22907 Level 3 Est. Patient 12:13:33 [employer] Erik Baptiste MD [facility] CPT-41858 Level 3 Est. Patient 09:40:44 [employer] LO[employer] Jaycee Torrez [facility] CPT-35865 Level 3 Est. Patient 09:36:32 M[employer] LO[employer] Jaycee Torrez [facility] CPT-20556 Level 4 Est. Patient 16:57:02 MOUNT LO[employer]ER Pelon Quach MD [facility]-76143 Level 4 Est. Patient 22:19:34 CDT Pelon Quach MD [facility] CPT-50261 Level 3 Est. Patient 00:34:41 CDT Pelon Quach MD [facility] CPT-52598 Level 4 Est. Patient 11:19:14 CDT Pelon Quach MD [facility] CPT-28692 Level 4 Est. Patient 16:43:30 M[employer] Pelon Quach MD [facility] CPT-75116 Level 4 Est. Patient 12:42:18 CDT Pelon Quach MD [facility] CPT-96898 Level 4 Est. Patient 11:52:20 CDT Pelon Quach MD [facility] CPT-59432 Level 4 Est. Patient 13:59:46 CDT Pelon Quach MD [facility] CPT-44228 Level 4 Est. Patient 15:10:48 CDT Pelon Quach MD [facility] CPT-25040 Level 4 Est. Patient 17:13:06 CDT Pelon Quach MD [facility] CPT-10434 Level 4 Est. Patient 18:47:47 CDT Pelon Quach MD [facility] CPT-95850 Level 3 Est. Patient 21:01:27 CDT Pelon Quach MD [facility] CPT-25817 Level 3 Est. Patient 14:07:03 CDT Taty Alvarado MD PhD [facility] CPT-16145 Level 3 New Patient 21:39:52 [employer] Pelon Quach MD [facility] CPT-63125 Level 3 Est. Patient 14:28:44 CDT Glenn Thornton MD [facility] CPT-98627 Level 3 Est. Patient 16:35:00 CDT Glenn Thornton MD [facility] CPT-67653 Level 4 New Patient 17:06:27 CDT Glenn Thornton MD [facility] [place] Procedures Code Procedure Name Date Entry Date Standard Description CPT-89317 Shoulder, right, comp min 2V - XRAY USE ONLY 10:47:10 CDT CPT-G0439 Subsequent Annual Wellness Exam 18:11:17 CDT CPT-G0438 Initial Annual Wellness Exam 09:30:54 CDT CPT-35550 Prevnar 13 Intramuscular Suspension 14:34:25 CDT 12/27 CPT-43680 Chest 2V Frontal and Lat - XRAY USE ONLY 11:56:13 [employer] CPT-84699 Cystoscopy 14:28:44 CDT CPT-53299 Bladder Scan 14:28:44 CDT CPT-38455 Indwelling Cath Change 17:06:27 CDT CPT-80274 Cystoscopy 17:06:27 CDT
--- OUTSIDE RECORDS SUMMARY | 2018-06-22 12:10 | XMS REPORT | Clinical Summary ---
Author Author Admin, ONESIMO Organization [facility] [employer] [place] Address Unknown Phone Unavailable Allergies, Adverse Reactions, [...] 1 po q8hr PRN Congestion DIPHENHYDRAMINE HCL 44507425266 Active Pelon Quach MD Active ZOFRAN 4 MG ORAL TABLET 1 po q6hr PRN Nausea ONDANSETRON HCL 22143156842 Active Pelon Quach MD Active IMODIUM A-D 2 MG ORAL TABLET One QID prn diarrhea. No more than 4 tabs daily LOPERAMIDE HCL 64543892262 Active Pelon Quach MD Active TYLENOL 325 MG ORAL TABLET 2 tabs po prn for pain elevated temp ACETAMINOPHEN 12969432825 Active Pelon Quach MD Active MUCINEX D 60-600 MG ORAL TABLET EXTENDED RELEASE 12 HOUR 1 po BID PRN Congestion PSEUDOEPHEDRINE-GUAIFENESIN 29741732555 Active Pelon Quach MD Active IBUPROFEN 200 MG ORAL TABLET q 6hrs prn pain IBUPROFEN 01906768736 Active Pelon Quach MD Active LORATADINE 10 MG ORAL TABLET 1 tablet by mouth daily prn LORATADINE 00320195361 Active Pelon Quach MD Active BANOPHEN 25 MG ORAL TABLET 1 po every 6 hours PRN allergic reaction DIPHENHYDRAMINE HCL 47898805126 No Longer Active Pelon Quach MD Active EASY TOUCH ALCOHOL PREP MEDIUM 70 % PAD Use with each finger stick and insulin admin Dx: E11.9 ALCOHOL SWABS 30549171454 Active Jaycee Arell [employer]GER [employer] Active HUMALOG KWIKPEN 100 UNIT/ML SUBCUTANEOUS SOLUTION PEN-INJECTOR inject 10 units subcutaneously before meals also sliding scale INSULIN LISPRO 52404172861 Active Jaycee Shan VICTORINO Active NOVOLOG 100 UNIT/ML SUBCUTANEOUS SOLUTION 10 UNITS BID BEFORE BREAKFAST AND LUNCH INSULIN ASPART 47628913495 No Longer Active NICOLETTE Hitchcock Active NOVOLOG 100 UNIT/ML SUBCUTANEOUS SOLUTION 10 UNITS BEFORE SUPPER INSULIN ASPART 20165238853 No Longer Active NICOLETTE Hitchcock Active INVEGA 6 MG ORAL TABLET EXTENDED RELEASE 24 HOUR 1 po daily for schizophrenia PALIPERIDONE 37651125959 Active Pelon Quach MD Active LAMICTAL 25 MG ORAL TABLET 2 tabs by mouth twice a day LAMOTRIGINE 78870425768 No Longer Active Pelon Quach MD Active BACTROBAN 2 % EXTERNAL OINTMENT Apply to affected area BID 06/28 MUPIROCIN 60107357019 No Longer Active Pelon Quach MD Active INVEGA 6 MG ORAL TABLET EXTENDED RELEASE 24 HOUR 1 po daily for Schizophrenia PALIPERIDONE 89531511788 No Longer Active Pelon Quach MD Active TYLENOL 8 HOUR 650 MG ORAL TABLET EXTENDED RELEASE Take 1 tab po up to 3 times daily as needed ACETAMINOPHEN 83378896477 No Longer Active Pelon Quach MD Active IPRATROPIUM-ALBUTEROL 0.5-2.5 (3) MG/3ML INHALATION SOLUTION 1 neb treatment QID for cough Dx: J06.9 IPRATROPIUM-ALBUTEROL 30290451296 No Longer Active Pelon Quach MD Active BACTRIM DS 800-160 MG ORAL TABLET 1 tab by mouth twice daily 2016 TRIMETHOPRIM-SULFAMETHOXAZOLE 09969411378 No Longer Active Pelon Quach MD Active BACTRIM DS 800-160 MG ORAL TABLET 1 twice a day SULFAMETHOXAZOLE-TRIMETHOPRIM 84344693094 No Longer Active Pelon Quach MD Active IPRATROPIUM-ALBUTEROL 0.5-2.5 (3) MG/3ML INHALATION SOLUTION 1 neb treatment four times daily, for cough IPRATROPIUM-ALBUTEROL 07299086100 No Longer Active Jaycee Arell [employer]GER [employer] Active FUROSEMIDE 40 MG ORAL TABLET Take one by mouth daily FUROSEMIDE 66920605106 No Longer Active Jaycee Arell MANAGER [employer]ESS Active LANTUS 100 UNIT/ML SUBCUTANEOUS SOLUTION 20 SUBQ AT HS INSULIN GLARGINE 51731626980 Active Jaycee Arell MANAGER [employer]ESS Active LAMICTAL 25 MG ORAL TABLET 2 tabs po BID for convulsions LAMOTRIGINE 05135611885 Active Jaycee Arell MANAGER [employer]ESS Active LASIX 20 MG ORAL TABLET 1 tablet by mouth every morning for edema FUROSEMIDE 06340715543 Active Jaycee Arell MANAGER [employer]ESS Active BUSPIRONE HCL 10 MG ORAL TABLET 1 tab by mouth BID BUSPIRONE HCL 08639934311 Active Jaycee Juan Davidll MANAGER [employer]ESS Active ADULT ASPIRIN EC LOW STRENGTH 81 MG ORAL TABLET DELAYED RELEASE Take one by mouth daily ASPIRIN 33799625556 No Longer Active Pelon Quach MD Active ASPIRIN 81 MG ORAL TABLET 1 po qd ASPIRIN 55379148047 Active Pelon Quach MD Active ZOFRAN 4 MG ORAL TABLET 1 po q6hr PRN Nausea ONDANSETRON HCL 93578610431 No Longer Active Pelon Quach MD Active TYLENOL 325 MG ORAL TABLET 1-2 pills by mouth every 6 hours if needed for pain /fever ACETAMINOPHEN 00400690545 No Longer Active Pelon Quach MD Active INVEGA 6 MG ORAL TABLET EXTENDED RELEASE 24 HOUR 1 TAB ONCE DAILY PALIPERIDONE 38954857540 No Longer Active Carly Suggs Active TEGRETOL 200 MG ORAL TABLET by mouth twice a day CARBAMAZEPINE 20248764042 Active Taty Alvarado MD PhD Active FLOMAX 0.4 MG ORAL CAPSULE 1 Daily TAMSULOSIN HCL 07942121119 Active Marianela Juarez Active DILANTIN 100 MG ORAL CAPSULE Take one by mouth daily PHENYTOIN SODIUM EXTENDED 21995362776 No Longer Active Marianela Juarez Active DEPAKOTE SPRINKLES 125 MG ORAL CAPSULE DELAYED RELEASE SPRINKLE 4 capsules by mouth twice daily DIVALPROEX SODIUM 63359844660 No Longer Active Marianelachandrika Juarez Active LAMICTAL 200 MG ORAL TABLET 1 BY MOUTH TWICE A DAY LAMOTRIGINE 04677485076 Active Marianela Juarez Active LAMICTAL 100 MG ORAL TABLET by mouth twice a day LAMOTRIGINE 74103558436 No Longer Active Marianelachandrika Juarez Active LAMICTAL 150 MG ORAL TABLET by mouth twice a day LAMOTRIGINE 12165200915 No Longer Active Marianelachandrika Juarez Active DILANTIN 100 MG ORAL CAPSULE Take three by mouth daily PHENYTOIN SODIUM EXTENDED 91460222467 No Longer Active Marianela Juarez Active SENOKOT 8.6 MG ORAL TABLET take at bedtime SENNOSIDES 92326778587 Active Pelon Quach MD Active LIPITOR 20 MG ORAL TABLET take at bedtime ATORVASTATIN CALCIUM 24688218804 Active Glenn Thornton MD Active LISINOPRIL 2.5 MG ORAL TABLET Take one by mouth daily LISINOPRIL 75273517171 Active Glenn Thornton MD Active TRENTAL 400 MG CR-TABS by mouth twice a day PENTOXIFYLLINE 19163844000 Active Glenn Thornton MD Active KLOR-CON 10 10 MEQ ORAL TABLET EXTENDED RELEASE Take one by mouth daily POTASSIUM CHLORIDE 30277316785 Active Glenn Thornton MD Active DILANTIN 100 MG ORAL CAPSULE Take three by mouth daily DILANTIN 100 MG ORAL CAPSULE 028749 PHENYTOIN SODIUM EXTENDED Inactive LAMICTAL 150 MG ORAL TABLET by mouth twice a day LAMICTAL 150 MG ORAL TABLET 832119 LAMOTRIGINE Inactive LAMICTAL 100 MG ORAL TABLET by mouth twice a day LAMICTAL 100 MG ORAL TABLET 498767 LAMOTRIGINE Inactive DEPAKOTE SPRINKLES 125 MG ORAL CAPSULE DELAYED RELEASE SPRINKLE 4 capsules by mouth twice daily DEPAKOTE SPRINKLES 125 MG ORAL CAPSULE DELAYED RELEASE SPRINKLE 6905345 DIVALPROEX SODIUM Inactive DILANTIN 100 MG ORAL CAPSULE Take one by mouth daily DILANTIN 100 MG ORAL CAPSULE 681130 PHENYTOIN SODIUM EXTENDED Inactive INVEGA 6 MG ORAL TABLET EXTENDED RELEASE 24 HOUR 1 TAB ONCE DAILY INVEGA 6 MG ORAL TABLET EXTENDED RELEASE 24 HOUR PALIPERIDONE Inactive TYLENOL 325 MG ORAL TABLET 1-2 pills by mouth every 6 hours if needed for pain /fever TYLENOL 325 MG ORAL TABLET 245549 ACETAMINOPHEN Inactive ZOFRAN 4 MG ORAL TABLET 1 po q6hr PRN Nausea ZOFRAN 4 MG ORAL TABLET 638841 ONDANSETRON HCL Inactive ADULT ASPIRIN EC LOW STRENGTH 81 MG ORAL TABLET DELAYED RELEASE Take one by mouth daily ADULT ASPIRIN EC LOW STRENGTH 81 MG ORAL TABLET DELAYED RELEASE 536535 ASPIRIN Inactive FUROSEMIDE 40 MG ORAL TABLET Take one by mouth daily FUROSEMIDE 40 MG ORAL TABLET 893864 FUROSEMIDE Inactive BACTRIM DS 800-160 MG ORAL TABLET 1 twice a day BACTRIM DS 800-160 MG ORAL TABLET 905321 SULFAMETHOXAZOLE-TRIMETHOPRIM Inactive IPRATROPIUM-ALBUTEROL 0.5-2.5 (3) MG/3ML INHALATION SOLUTION 1 neb treatment QID for cough Dx: J06.9 IPRATROPIUM-ALBUTEROL 0.5-2.5 ( 3) MG/3ML INHALATION SOLUTION 0027243 IPRATROPIUM-ALBUTEROL Inactive TYLENOL 8 HOUR 650 MG [...] BID 06/28 BACTROBAN 2 % EXTERNAL OINTMENT 924889 MUPIROCIN Inactive LAMICTAL 25 MG ORAL TABLET 2 tabs by mouth twice a day LAMICTAL 25 MG ORAL TABLET 717795 LAMOTRIGINE Inactive NOVOLOG 100 UNIT/ML SUBCUTANEOUS SOLUTION 10 UNITS BEFORE SUPPER NOVOLOG 100 UNIT/ML SUBCUTANEOUS SOLUTION INSULIN ASPART Inactive NOVOLOG 100 UNIT/ML SUBCUTANEOUS SOLUTION 10 UNITS BID BEFORE BREAKFAST AND LUNCH NOVOLOG 100 UNIT/ML SUBCUTANEOUS SOLUTION INSULIN ASPART Inactive BANOPHEN 25 MG ORAL TABLET 1 po every 6 hours PRN allergic reaction BANOPHEN 25 MG ORAL TABLET 8696155 DIPHENHYDRAMINE HCL Inactive IPRATROPIUM-ALBUTEROL 0.5-2.5 (3) MG/3ML INHALATION SOLUTION 1 neb treatment four times daily, for cough IPRATROPIUM-ALBUTEROL 0.5- 2.5 (3) MG/3ML INHALATION SOLUTION 8604005 IPRATROPIUM-ALBUTEROL Inactive BACTRIM DS 800-160 MG ORAL TABLET 1 tab by mouth twice daily 2016 BACTRIM DS 800-160 MG ORAL TABLET 959697 TRIMETHOPRIM- SULFAMETHOXAZOLE Inactive Advance Directives Directive Description Start Date DURABLE POWER OF CHAIR [employer] FOR [facility] PERMISSION TO SHARE ADVANCED DIRECTIVE [...] Panel - Chemistry sodium, serum 127 mmol/L 162-105 1200/07/28 potassium, serum 5.3 mmol/L 3.5-5.2 chloride, serum 92 mmol/L 98-107 carbon dioxide, venous blood 32.4 mmol/L 21.0-32.0 blood glucose 182 mg/dL 65-110 calcium, serum 9.4 mg/dL 8.5-10.1 urea nitrogen, blood 14 mg/dL 7-18 creatinine, serum 0.94 mg/dL 0.60-1.30 Lab Report: CBC, Comp. Metabolic Panel - Chemistry sodium, serum 129 mmol/L 620-594 2137/07/12 carbon dioxide, venous blood 27.8 mmol/L 21.0-32.0 [...] HGBA1C - Chemistry sodium, serum 123 mmol/L 859-621 2425/04/25 carbon dioxide, venous blood 26.2 mmol/L 21.0-32.0 [...] mg/dL Encounters Code Encounter Date Provider Facility CPT-81837 Level 4 Est. Patient 14:46:38 CDT Pelon Quach MD [facility] CPT-77107 Level 4 Est. Patient 08:43:11 CDT Pelon Quach MD [facility] CPT-00803 Level 4 Est. Patient 14:27:30 CDT Pelon Quach MD [facility] CPT-00179 Level 3 Est. Patient 10:32:17 CDT Jaycee Torrez [facility] CPT-75123 Level 3 Est. Patient 10:15:07 CDT Pelon Quach MD [facility] CPT-87502 Level 4 Est. Patient 09:30:54 CDT Pelon Quach MD [facility] CPT-67440 Level 4 Est. Patient 14:34:25 CDT Pelon Quach MD [facility] CPT-67646 Level 3 Est. 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 Patient 12:13:33 STAY CUTTER Erik Baptiste MD [facility] CPT-80883 Level 3 Est. Patient 09:40:44 STAY CUTTER [facility]-26346 Level 3 Est. Patient 09:36:32 STAY CUTTER [facility]-40871 Level 4 Est. Patient 16:57:02 STAY CUTTER Pelon Quach MD [facility]-90786 Level 4 Est. Patient 22:19:34 CDT Pelon Quach MD [facility]-71119 Level 3 Est. Patient 00:34:41 CDT Pelon Quach MD [facility]-41765 Level 4 Est. Patient 11:19:14 CDT Pelon Quach MD [facility]-13062 Level 4 Est. Patient 16:43:30 STAY CUTTER Pelon Quach MD [facility]-72606 Level 4 Est. Patient 12:42:18 CDT Pelon Quach MD [facility]-79887 Level 4 Est. Patient 11:52:20 CDT Pelon Quach MD [facility]-18724 Level 4 Est. Patient 13:59:46 CDT Pelon Quach MD [facility]-15113 Level 4 Est. Patient 15:10:48 CDT Pelon Quach MD [facility]-07068 Level 4 Est. Patient 17:13:06 CDT Pelon Quach MD [facility]-86720 Level 4 Est. Patient 18:47:47 CDT Pelon Quach MD [facility]-06845 Level 3 Est. Patient 21:01:27 CDT Pelon Quach MD [facility]-63033 Level 3 Est. Patient 14:07:03 CDT Taty Alvarado MD, PhD [facility] CPT-21412 Level 3 New Patient 21:39:52 STAY CUTTER Pelon Quach MD [facility] CPT-79161 Level 3 Est. Patient 14:28:44 CDT Glenn Thornton MD [facility] CPT-68026 Level 3 Est. Patient 16:35:00 CDT Glenn Thornton MD [facility] CPT-85587 Level 4 New Patient 17:06:27 CDT Glenn Thornton MD [facility] [place] Procedures Code Procedure Name Date Entry Date Standard Description CPT-G0438 Initial Annual Wellness Exam 09:30:54 CDT CPT-54998 Prevnar 13 Intramuscular Suspension 14:34:25 CDT 12/27 CPT-10498 Chest 2V Frontal and Lat - XRAY USE ONLY 11:56:13 STAY CUTTER CPT-83859 Cystoscopy 14:28:44 CDT CPT-65170 Bladder Scan 14:28:44 CDT CPT-57631 Indwelling Cath Change 17:06:27 CDT CPT-09791 Cystoscopy 17:06:27 CDT
--- OUTSIDE RECORDS SUMMARY | 2018-06-22 12:10 | XMS REPORT | Clinical Summary ---
Author Author Admin, ONESIMO Organization [facility] [place] Address Unknown Phone Unavailable Allergies, Adverse Reactions, [...] as needed for muscle spasm/pain CYCLOBENZAPRINE HCL 03896732326 Active Pelon Quach MD Active BENADRYL 25 MG ORAL CAPSULE 1 po q8hr PRN Congestion DIPHENHYDRAMINE HCL 82249666577 Active Pelon Quach MD Active ZOFRAN 4 MG ORAL TABLET 1 po q6hr PRN Nausea ONDANSETRON HCL 12604746418 Active Pelon Quach MD Active IMODIUM A-D 2 MG ORAL TABLET One QID prn diarrhea. No more than 4 tabs daily LOPERAMIDE HCL 70226210248 Active Pelon Quach MD Active TYLENOL 325 MG ORAL TABLET 2 tabs po prn for pain elevated temp ACETAMINOPHEN 89919035956 Active Pelon Quach MD Active MUCINEX D 60-600 MG ORAL TABLET EXTENDED RELEASE 12 HOUR 1 po BID PRN Congestion PSEUDOEPHEDRINE-GUAIFENESIN 58591778168 Active Pelon Quach MD Active IBUPROFEN 200 MG ORAL TABLET q 6hrs prn pain IBUPROFEN 76928136036 Active Pelon Quach MD Active LORATADINE 10 MG ORAL TABLET 1 tablet by mouth daily prn LORATADINE 53210930682 Active Pelon Quach MD Active BANOPHEN 25 MG ORAL TABLET 1 po every 6 hours PRN allergic reaction DIPHENHYDRAMINE HCL 79576074527 No Longer Active Pelon Quach MD Active EASY TOUCH ALCOHOL PREP MEDIUM 70 % PAD Use with each finger stick and insulin admin Dx: E11.9 ALCOHOL SWABS 81703650221 Active Jaycee Torrez APRN Active HUMALOG KWIKPEN 100 UNIT/ML SUBCUTANEOUS SOLUTION PEN-INJECTOR inject 10 units subcutaneously before meals also sliding scale INSULIN LISPRO 59485666912 Active Pelon Quach MD Active NOVOLOG 100 UNIT/ML SUBCUTANEOUS SOLUTION 10 UNITS BID BEFORE BREAKFAST AND LUNCH INSULIN ASPART 71663282254 No Longer Active NICOLETTE Hitchcock Active NOVOLOG 100 UNIT/ML SUBCUTANEOUS SOLUTION 10 UNITS BEFORE SUPPER INSULIN ASPART 94696416188 No Longer Active NICOLETTE Hitchcock Active INVEGA 6 MG ORAL TABLET EXTENDED RELEASE 24 HOUR 1 po daily for schizophrenia PALIPERIDONE 20205341578 Active Pelon Quach MD Active LAMICTAL 25 MG ORAL TABLET 2 tabs by mouth twice a day LAMOTRIGINE 92026281180 No Longer Active Pelon Quach MD Active BACTROBAN 2 % EXTERNAL OINTMENT Apply to affected area BID 06/28 MUPIROCIN 76426123895 No Longer Active Pelon Quach MD Active INVEGA 6 MG ORAL TABLET EXTENDED RELEASE 24 HOUR 1 po daily for Schizophrenia PALIPERIDONE 76559638488 No Longer Active Pelon Quach MD Active TYLENOL 8 HOUR 650 MG ORAL TABLET EXTENDED RELEASE Take 1 tab po up to 3 times daily as needed ACETAMINOPHEN 80847160262 No Longer Active Pelon Quach MD Active IPRATROPIUM-ALBUTEROL 0.5-2.5 (3) MG/3ML INHALATION SOLUTION 1 neb treatment QID for cough Dx: J06.9 IPRATROPIUM-ALBUTEROL 65374557819 No Longer Active Pelon Quach MD Active BACTRIM DS 800-160 MG ORAL TABLET 1 tab by mouth twice daily 2016 TRIMETHOPRIM-SULFAMETHOXAZOLE 49030784187 No Longer Active Pelon Quach MD Active BACTRIM DS 800-160 MG ORAL TABLET 1 twice a day SULFAMETHOXAZOLE-TRIMETHOPRIM 05890748541 No Longer Active Pelon Quach MD Active IPRATROPIUM-ALBUTEROL 0.5-2.5 (3) MG/3ML INHALATION SOLUTION 1 neb treatment four times daily, for cough IPRATROPIUM-ALBUTEROL 28610587480 No Longer Active Jaycee Torrez APRN Active FUROSEMIDE 40 MG ORAL TABLET Take one by mouth daily FUROSEMIDE 66527404843 No Longer Active Jaycee Torrez APRN Active LANTUS 100 UNIT/ML SUBCUTANEOUS SOLUTION 20 SUBQ AT HS INSULIN GLARGINE 05709648759 Active Pelon Quach MD Active LAMICTAL 25 MG ORAL TABLET 2 tabs po BID for convulsions LAMOTRIGINE 36733722661 Active Jaycee Torrez APRN Active LASIX 20 MG ORAL TABLET 1 tablet by mouth every morning for edema FUROSEMIDE 45677073790 Active Jaycee Arell FAMILY SERVICE AIDE Active BUSPIRONE HCL 10 MG ORAL TABLET 1 tab by mouth BID BUSPIRONE HCL 57516241871 Active Jaycee Juan Davidll FAMILY SERVICE AIDE Active ADULT ASPIRIN EC LOW STRENGTH 81 MG ORAL TABLET DELAYED RELEASE Take one by mouth daily ASPIRIN 26203691730 No Longer Active Pelon Quach MD Active ASPIRIN 81 MG ORAL TABLET 1 po qd ASPIRIN 36427920034 Active Pelon Quach MD Active ZOFRAN 4 MG ORAL TABLET 1 po q6hr PRN Nausea ONDANSETRON HCL 80233903621 No Longer Active Pelon Quach MD Active TYLENOL 325 MG ORAL TABLET 1-2 pills by mouth every 6 hours if needed for pain /fever ACETAMINOPHEN 50587204355 No Longer Active Pelon Quach MD Active INVEGA 6 MG ORAL TABLET EXTENDED RELEASE 24 HOUR 1 TAB ONCE DAILY PALIPERIDONE 55301245435 No Longer Active Carly Suggs Active TEGRETOL 200 MG ORAL TABLET by mouth twice a day CARBAMAZEPINE 01634210507 Active Taty Alvarado MD PhD Active FLOMAX 0.4 MG ORAL CAPSULE 1 Daily TAMSULOSIN HCL 51129096757 Active Marianela Juarez Active DILANTIN 100 MG ORAL CAPSULE Take one by mouth daily PHENYTOIN SODIUM EXTENDED 81278694952 No Longer Active Marianela Juarez Active DEPAKOTE SPRINKLES 125 MG ORAL CAPSULE DELAYED RELEASE SPRINKLE 4 capsules by mouth twice daily DIVALPROEX SODIUM 42073905893 No Longer Active Marianelachandrika Juarez Active LAMICTAL 200 MG ORAL TABLET 1 BY MOUTH TWICE A DAY LAMOTRIGINE 80158448420 Active Marianela Raida Active LAMICTAL 100 MG ORAL TABLET by mouth twice a day LAMOTRIGINE 23865321523 No Longer Active Marianelachandrika Juarez Active LAMICTAL 150 MG ORAL TABLET by mouth twice a day LAMOTRIGINE 39874811614 No Longer Active Marianela Raida Active DILANTIN 100 MG ORAL CAPSULE Take three by mouth daily PHENYTOIN SODIUM EXTENDED 69612954147 No Longer Active Marianela Shankarronny Active SENOKOT 8.6 MG ORAL TABLET take at bedtime SENNOSIDES 88170421725 Active Pelon Quach MD Active LIPITOR 20 MG ORAL TABLET take at bedtime ATORVASTATIN CALCIUM 86267730499 Active Glenn Thornton MD Active LISINOPRIL 2.5 MG ORAL TABLET Take one by mouth daily LISINOPRIL 89624876840 Active Glenn Thornton MD Active TRENTAL 400 MG CR-TABS by mouth twice a day PENTOXIFYLLINE 78244173554 Active Glnen Thornton MD Active KLOR-CON 10 10 MEQ ORAL TABLET EXTENDED RELEASE Take one by mouth daily POTASSIUM CHLORIDE 72696666208 Active Glenn Thornton MD Active DILANTIN 100 MG ORAL CAPSULE Take three by mouth daily DILANTIN 100 MG ORAL CAPSULE 217869 PHENYTOIN SODIUM EXTENDED Inactive LAMICTAL 150 MG ORAL TABLET by mouth twice a day LAMICTAL 150 MG ORAL TABLET 723499 LAMOTRIGINE Inactive LAMICTAL 100 MG ORAL TABLET by mouth twice a day LAMICTAL 100 MG ORAL TABLET 886635 LAMOTRIGINE Inactive DEPAKOTE SPRINKLES 125 MG ORAL CAPSULE DELAYED RELEASE SPRINKLE 4 capsules by mouth twice daily DEPAKOTE SPRINKLES 125 MG ORAL CAPSULE DELAYED RELEASE SPRINKLE 0533569 DIVALPROEX SODIUM Inactive DILANTIN 100 MG ORAL CAPSULE Take one by mouth daily DILANTIN 100 MG ORAL CAPSULE 246873 PHENYTOIN SODIUM EXTENDED Inactive INVEGA 6 MG ORAL TABLET EXTENDED RELEASE 24 HOUR 1 TAB ONCE DAILY INVEGA 6 MG ORAL TABLET EXTENDED RELEASE 24 HOUR PALIPERIDONE Inactive TYLENOL 325 MG ORAL TABLET 1-2 pills by mouth every 6 hours if needed for pain /fever TYLENOL 325 MG ORAL TABLET 622616 ACETAMINOPHEN Inactive ZOFRAN 4 MG ORAL TABLET 1 po q6hr PRN Nausea ZOFRAN 4 MG ORAL TABLET 473469 ONDANSETRON HCL Inactive ADULT ASPIRIN EC LOW STRENGTH 81 MG ORAL TABLET DELAYED RELEASE Take one by mouth daily ADULT ASPIRIN EC LOW STRENGTH 81 MG ORAL TABLET DELAYED RELEASE 811406 ASPIRIN Inactive FUROSEMIDE 40 MG ORAL TABLET Take one by mouth daily FUROSEMIDE 40 MG ORAL TABLET 047398 FUROSEMIDE Inactive BACTRIM DS 800-160 MG ORAL TABLET 1 twice a day BACTRIM DS 800-160 MG ORAL TABLET 296886 SULFAMETHOXAZOLE-TRIMETHOPRIM Inactive IPRATROPIUM-ALBUTEROL 0.5-2.5 (3) MG/3ML INHALATION SOLUTION 1 neb treatment QID for cough Dx: J06.9 IPRATROPIUM-ALBUTEROL 0.5-2.5 ( 3) MG/3ML INHALATION SOLUTION 6906147 IPRATROPIUM-ALBUTEROL Inactive TYLENOL 8 HOUR 650 MG [...] a day LAMICTAL 25 MG ORAL TABLET 561795 LAMOTRIGINE Inactive NOVOLOG 100 UNIT/ML SUBCUTANEOUS SOLUTION 10 UNITS BEFORE SUPPER NOVOLOG 100 UNIT/ML SUBCUTANEOUS SOLUTION INSULIN ASPART Inactive NOVOLOG 100 UNIT/ML SUBCUTANEOUS SOLUTION 10 UNITS BID BEFORE BREAKFAST AND LUNCH NOVOLOG 100 UNIT/ML SUBCUTANEOUS SOLUTION INSULIN ASPART Inactive BANOPHEN 25 MG ORAL TABLET 1 po every 6 hours PRN allergic reaction BANOPHEN 25 MG ORAL TABLET 7770017 DIPHENHYDRAMINE HCL Inactive IPRATROPIUM-ALBUTEROL 0.5-2.5 (3) MG/3ML INHALATION SOLUTION 1 neb treatment four times daily, for cough IPRATROPIUM-ALBUTEROL 0.5- 2.5 (3) MG/3ML INHALATION SOLUTION 5585529 IPRATROPIUM-ALBUTEROL Inactive BACTRIM DS 800-160 MG ORAL TABLET 1 tab by mouth twice daily 2016 BACTRIM DS 800-160 MG ORAL TABLET 531009 TRIMETHOPRIM- SULFAMETHOXAZOLE Inactive Advance Directives Directive Description Start Date 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 OF 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 FOR HEALTHCARE PERMISSION TO SHARE ADVANCED [...] HGBA1C - Chemistry sodium, serum 123 mmol/L 556-256 2168/04/25 carbon dioxide, venous blood 26.2 mmol/L 21.0-32.0 [...] mg/dL Encounters Code Encounter Date Provider Facility CPT-91088 [id number] Vst-Est Level IV 10:45:13 CDT Pelon Quach MD [facility] CPT-15460 [id number] Vst-Est Level IV 13:48:14 CDT Pelon Quach MD [facility] CPT-87725 [id number] Vst-Est Level II 13:40:42 CDT Pelon Quach MD [facility] CPT-26343 [id number] Vst-Est Level III 13:36:24 CDT Pelon Quach MD [facility] CPT-27867 Level 4 Est. Patient 18:11:18 CDT Pelon Quach MD [facility] CPT-72138 Level 4 Est. Patient 14:46:38 CDT Pelon Quach MD [facility] CPT-07664 Level 4 Est. Patient 08:43:11 CDT Pelon Quach MD [facility] CPT-24704 Level 4 Est. Patient 14:27:30 CDT Pelon Quach MD [facility] CPT-95337 Level 3 Est. Patient 10:32:17 CDT Jaycee Torrez APRN [facility] CPT-41154 Level 3 Est. Patient 10:15:07 CDT Pelon Quach MD [facility] CPT-29428 Level 4 Est. Patient 09:30:54 CDT Pelon Quach MD [facility] CPT-39710 Level 4 Est. Patient 14:34:25 CDT Pelon Quach MD [facility] CPT-23927 Level 3 Est. Patient 11:51:35 [employer] Rick Henson DO [facility] CPT-08641 Level 3 Est. Patient 12:13:33 [employer] Erik Baptiste MD [facility] CPT-60432 Level 3 Est. 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 Patient 09:36:32 [employer] ASSEMBLER Jaycee Torrez [facility] [place] [facility] [place] CPT-47134 Level 4 Est. Patient 16:57:02 [employer]PL[employer]ER ASSEMBLER Pelon Quach MD [facility]-30103 Level 4 Est. Patient 22:19:34 CDT Pelon Quach MD [facility] CPT-63304 Level 3 Est. Patient 00:34:41 CDT Pelon Quach MD [facility] CPT-55641 Level 4 Est. Patient 11:19:14 CDT Pelon Quach MD [facility] CPT-85374 Level 4 Est. Patient 16:43:30 [employer]SEMBLER Pelon Quach MD [facility] CPT-69222 Level 4 Est. Patient 12:42:18 CDT Pelon Quach MD [facility] CPT-42598 Level 4 Est. Patient 11:52:20 CDT Pelon Quach MD [facility] CPT-21956 Level 4 Est. Patient 13:59:46 CDT Pelon Quach MD [facility] CPT-55252 Level 4 Est. Patient 15:10:48 CDT Pelon Quach MD [facility] CPT-32387 Level 4 Est. Patient 17:13:06 CDT Pelon Quach MD [facility] CPT-12662 Level 4 Est. Patient 18:47:47 CDT Pelon Quach MD [facility] CPT-90194 Level 3 Est. Patient 21:01:27 CDT Pelon Quach MD [facility] CPT-87920 Level 3 Est. Patient 14:07:03 CDT Taty Alvarado MD PhD [facility] CPT-70708 Level 3 New Patient 21:39:52 [employer] ASSEM[employer]ER Pelon Quach MD [facility] CPT-74738 Level 3 Est. Patient 14:28:44 CDT Glenn Thornton MD [facility] CPT-94276 Level 3 Est. Patient 16:35:00 CDT Glenn Thornton MD [facility] CPT-21161 Level 4 New Patient 17:06:27 CDT Glenn Thornton MD [facility] [place] Procedures Code Procedure Name Date Entry Date Standard Description CPT-62770 Shoulder, right, comp min 2V - XRAY USE ONLY 10:47:10 CDT CPT-G0439 Subsequent Annual Wellness Exam 18:11:17 CDT CPT-G0438 Initial Annual Wellness Exam 09:30:54 CDT CPT-77988 Prevnar 13 Intramuscular Suspension 14:34:25 CDT 12/27 CPT-88688 Chest 2V Frontal and Lat - XRAY USE ONLY 11:56:13 [employer] CPT-16725 Cystoscopy 14:28:44 CDT CPT-33027 Bladder Scan 14:28:44 CDT CPT-62651 Indw[address] Cath Change 17:06:27 CDT CPT-16083 Cystoscopy 17:06:27 CDT
--- OUTSIDE RECORDS SUMMARY | 2018-06-22 12:11 | XMS REPORT | Clinical Summary ---
Author Author Admin, ONESIMO Organization [facility] [place] Address Unknown Phone Unavailable Allergies, Adverse Reactions, [...] and insulin admin Dx: E11.9 ALCOHOL SWABS 43047828648 Active Jaycee Torrez APRN Active HUMALOG KWIKPEN 100 UNIT/ML SUBCUTANEOUS SOLUTION PEN-INJECTOR inject 10 units subcutaneously before meals also sliding scale INSULIN LISPRO 15366383478 Active Jaycee Torrez APRN Active NOVOLOG 100 UNIT/ML SUBCUTANEOUS SOLUTION 10 UNITS BID BEFORE BREAKFAST AND LUNCH INSULIN ASPART 17967358180 No Longer Active NICOLETTE Hitchcock Active NOVOLOG 100 UNIT/ML SUBCUTANEOUS SOLUTION 10 UNITS BEFORE SUPPER INSULIN ASPART 41909543351 No Longer Active NICOLETTE Hitchcock Active INVEGA 6 MG ORAL TABLET EXTENDED RELEASE 24 HOUR 1 po daily for schizophrenia PALIPERIDONE 63844957673 Active Pelon Quach MD Active LAMICTAL 25 MG ORAL TABLET 2 tabs by mouth twice a day LAMOTRIGINE 97110079136 No Longer Active Pelon Quach MD Active BACTROBAN 2 % EXTERNAL OINTMENT Apply to affected area BID 06/28 MUPIROCIN 63660827867 No Longer Active Pelon Quach MD Active BANOPHEN 25 MG ORAL TABLET 1 po every 6 hours PRN allergic reaction DIPHENHYDRAMINE HCL 21851458167 Active NICOLETTE Hitchcock Active INVEGA 6 MG ORAL TABLET EXTENDED RELEASE 24 HOUR 1 po daily for Schizophrenia PALIPERIDONE 17434149429 No Longer Active Pelon Quach MD Active TYLENOL 8 HOUR 650 MG ORAL TABLET EXTENDED RELEASE Take 1 tab po up to 3 times daily as needed ACETAMINOPHEN 42056813853 No Longer Active Pelon Quach MD Active IPRATROPIUM-ALBUTEROL 0.5-2.5 (3) MG/3ML INHALATION SOLUTION 1 neb treatment QID for cough Dx: J06.9 IPRATROPIUM-ALBUTEROL 65057379579 No Longer Active Pelon Quach MD Active BACTRIM DS 800-160 MG ORAL TABLET 1 tab by mouth twice daily 2016 TRIMETHOPRIM-SULFAMETHOXAZOLE 31744295912 No Longer Active Pelon Quach MD Active BACTRIM DS 800-160 MG ORAL TABLET 1 twice a day SULFAMETHOXAZOLE-TRIMETHOPRIM 40184985305 No Longer Active Pelon Quach MD Active IPRATROPIUM-ALBUTEROL 0.5-2.5 (3) MG/3ML INHALATION SOLUTION 1 neb treatment four times daily, for cough IPRATROPIUM-ALBUTEROL 97993376203 No Longer Active Jaycee Torrez APRN Active FUROSEMIDE 40 MG ORAL TABLET Take one by mouth daily FUROSEMIDE 00591902268 No Longer Active Jaycee Torrez APRN Active LANTUS 100 UNIT/ML SUBCUTANEOUS SOLUTION 20 SUBQ AT HS INSULIN GLARGINE 68307605214 Active Jaycee Torrez APRN Active LAMICTAL 25 MG ORAL TABLET 2 tabs po BID for convulsions LAMOTRIGINE 33932909555 Active Jaycee Torrez APRN Active LASIX 20 MG ORAL TABLET 1 tablet by mouth every morning for edema FUROSEMIDE 97508068529 Active Jaycee Torrez APRN Active BUSPIRONE HCL 10 MG ORAL TABLET 1 tab by mouth BID BUSPIRONE HCL 21502237513 Active Jaycee Torerz APRN Active ADULT ASPIRIN EC LOW STRENGTH 81 MG ORAL TABLET DELAYED RELEASE Take one by mouth daily ASPIRIN 29059609521 No Longer Active Pelon Quach MD Active ASPIRIN 81 MG ORAL TABLET 1 po qd ASPIRIN 87475335950 Active Pelon Quach MD Active ZOFRAN 4 MG ORAL TABLET 1 po q6hr PRN Nausea ONDANSETRON HCL 94177736050 No Longer Active Pelon Quach MD Active TYLENOL 325 MG ORAL TABLET 1-2 pills by mouth every 6 hours if needed for pain /fever ACETAMINOPHEN 14246603949 No Longer Active Pelon Quach MD Active INVEGA 6 MG ORAL TABLET EXTENDED RELEASE 24 HOUR 1 TAB ONCE DAILY PALIPERIDONE 40815866231 No Longer Active Carly Suggs Active TEGRETOL 200 MG ORAL TABLET by mouth twice a day CARBAMAZEPINE 38420093814 Active Taty Alvarado MD PhD Active FLOMAX 0.4 MG ORAL CAPSULE 1 Daily TAMSULOSIN HCL 94214450320 Active Marianela Juarez Active DILANTIN 100 MG ORAL CAPSULE Take one by mouth daily PHENYTOIN SODIUM EXTENDED 13469402438 No Longer Active Marianelachandrika Juarez Active DEPAKOTE SPRINKLES 125 MG ORAL CAPSULE DELAYED RELEASE SPRINKLE 4 capsules by mouth twice daily DIVALPROEX SODIUM 94643800380 No Longer Active Marianela Juarez Active LAMICTAL 200 MG ORAL TABLET 1 BY MOUTH TWICE A DAY LAMOTRIGINE 95705481202 Active Marianelachandrika Juarez Active LAMICTAL 100 MG ORAL TABLET by mouth twice a day LAMOTRIGINE 97543821736 No Longer Active Marianelachandrika Juarez Active LAMICTAL 150 MG ORAL TABLET by mouth twice a day LAMOTRIGINE 52253572710 No Longer Active Marianela Juarez Active DILANTIN 100 MG ORAL CAPSULE Take three by mouth daily PHENYTOIN SODIUM EXTENDED 41496935943 No Longer Active Marianela Juarez Active SENOKOT 8.6 MG ORAL TABLET take at bedtime SENNOSIDES 18931684055 Active Pelon Quach MD Active LIPITOR 20 MG ORAL TABLET take at bedtime ATORVASTATIN CALCIUM 85336844177 Active Glenn Thornton MD Active LISINOPRIL 2.5 MG ORAL TABLET Take one by mouth daily LISINOPRIL 99500398123 Active Glenn Thornton MD Active TRENTAL 400 MG CR-TABS by mouth twice a day PENTOXIFYLLINE 87332107688 Active Glenn Thornton MD Active KLOR-CON 10 10 MEQ ORAL TABLET EXTENDED RELEASE Take one by mouth daily POTASSIUM CHLORIDE 87901105559 Active Glenn Thornton MD Active DILANTIN 100 MG ORAL CAPSULE Take three by mouth daily DILANTIN 100 MG ORAL CAPSULE 981881 PHENYTOIN SODIUM EXTENDED Inactive LAMICTAL 150 MG ORAL TABLET by mouth twice a day LAMICTAL 150 MG ORAL TABLET 258894 LAMOTRIGINE Inactive LAMICTAL 100 MG ORAL TABLET by mouth twice a day LAMICTAL 100 MG ORAL TABLET 056845 LAMOTRIGINE Inactive DEPAKOTE SPRINKLES 125 MG ORAL CAPSULE DELAYED RELEASE SPRINKLE 4 capsules by mouth twice daily DEPAKOTE SPRINKLES 125 MG ORAL CAPSULE DELAYED RELEASE SPRINKLE 9187234 DIVALPROEX SODIUM Inactive DILANTIN 100 MG ORAL CAPSULE Take one by mouth daily DILANTIN 100 MG ORAL CAPSULE 147418 PHENYTOIN SODIUM EXTENDED Inactive INVEGA 6 MG ORAL TABLET EXTENDED RELEASE 24 HOUR 1 TAB ONCE DAILY INVEGA 6 MG ORAL TABLET EXTENDED RELEASE 24 HOUR PALIPERIDONE Inactive TYLENOL 325 MG ORAL TABLET 1-2 pills by mouth every 6 hours if needed for pain /fever TYLENOL 325 MG ORAL TABLET 960169 ACETAMINOPHEN Inactive ZOFRAN 4 MG ORAL TABLET 1 po q6hr PRN Nausea ZOFRAN 4 MG ORAL TABLET 917103 ONDANSETRON HCL Inactive ADULT ASPIRIN EC LOW STRENGTH 81 MG ORAL TABLET DELAYED RELEASE Take one by mouth daily ADULT ASPIRIN EC LOW STRENGTH 81 MG ORAL TABLET DELAYED RELEASE 711263 ASPIRIN Inactive FUROSEMIDE 40 MG ORAL TABLET Take one by mouth daily FUROSEMIDE 40 MG ORAL TABLET 119296 FUROSEMIDE Inactive BACTRIM DS 800-160 MG ORAL TABLET 1 twice a day BACTRIM DS 800-160 MG ORAL TABLET 731452 SULFAMETHOXAZOLE-TRIMETHOPRIM Inactive IPRATROPIUM-ALBUTEROL 0.5-2.5 (3) MG/3ML INHALATION SOLUTION 1 neb treatment QID for cough Dx: J06.9 IPRATROPIUM-ALBUTEROL 0.5-2.5 ( 3) MG/3ML INHALATION SOLUTION 2575042 IPRATROPIUM-ALBUTEROL Inactive TYLENOL 8 HOUR 650 MG [...] BID 06/28 BACTROBAN 2 % EXTERNAL OINTMENT 075419 MUPIROCIN Inactive LAMICTAL 25 MG ORAL TABLET 2 tabs by mouth twice a day LAMICTAL 25 MG ORAL TABLET 285455 LAMOTRIGINE Inactive NOVOLOG 100 UNIT/ML SUBCUTANEOUS SOLUTION 10 UNITS BEFORE SUPPER NOVOLOG 100 UNIT/ML SUBCUTANEOUS SOLUTION INSULIN ASPART Inactive NOVOLOG 100 UNIT/ML SUBCUTANEOUS SOLUTION 10 UNITS BID BEFORE BREAKFAST AND LUNCH NOVOLOG 100 UNIT/ML SUBCUTANEOUS SOLUTION INSULIN ASPART Inactive IPRATROPIUM-ALBUTEROL 0.5-2.5 (3) MG/3ML INHALATION SOLUTION 1 neb treatment four times daily, for cough IPRATROPIUM-ALBUTEROL 0.5- 2.5 (3) MG/3ML INHALATION SOLUTION 3490011 IPRATROPIUM-ALBUTEROL Inactive BACTRIM DS 800-160 MG ORAL TABLET 1 tab by mouth twice daily 2016 BACTRIM DS 800-160 MG ORAL TABLET 941126 TRIMETHOPRIM- SULFAMETHOXAZOLE Inactive Advance Directives Directive Description Start Date DURABLE POWER OF DIRECTOR WRITING FOR HEALTHCARE PERMISSION TO SHARE ADVANCED DIRECTIVE [...] Panel - Chemistry sodium, serum 127 mmol/L 472-487 9685/07/28 potassium, serum 5.3 mmol/L 3.5-5.2 chloride, serum 92 mmol/L 98-107 carbon dioxide, venous blood 32.4 mmol/L 21.0-32.0 blood glucose 182 mg/dL 65-110 calcium, serum 9.4 mg/dL 8.5-10.1 urea nitrogen, blood 14 mg/dL 7-18 creatinine, serum 0.94 mg/dL 0.60-1.30 Lab Report: CBC, Comp. Metabolic Panel - Chemistry sodium, serum 129 mmol/L 441-815 5562/07/12 carbon dioxide, venous blood 27.8 mmol/L 21.0-32.0 [...] mg/dL Encounters Code Encounter Date Provider Facility CPT-47885 Level 4 Est. Patient 14:46:38 CDT Pelon Quach MD [facility] CPT-49929 Level 4 Est. Patient 08:43:11 CDT Pelon Quach MD [facility] CPT-19077 Level 4 Est. Patient 14:27:30 CDT Pelon Quach MD [facility] CPT-54656 Level 3 Est. Patient 10:32:17 CDT Jaycee Torrez APRN [facility] CPT-28929 Level 3 Est. Patient 10:15:07 CDT Pelon Quach MD [facility] CPT-52975 Level 4 Est. Patient 09:30:54 CDT Pelon Quach MD [facility] CPT-97549 Level 4 Est. Patient 14:34:25 CDT Pelon Quach MD [facility] CPT-07089 Level 3 Est. Patient 11:51:35 MONOTYPE CASTER Rick Henson DO [facility] CPT-98792 Level 3 Est. Patient 12:13:33 MONOTYPE CASTER Erik Baptiste MD [facility]-83360 Level 3 Est. Patient 09:40:44 MONOTYPE CASTER Jaycee Torrez [facility] CPT-92383 Level 3 Est. Patient 09:36:32 MONOTYPE CASTER Jaycee Torrez [facility] CPT-70684 Level 4 Est. Patient 16:57:02 MONOTYPE CASTER Pelon Quach MD [facility]-72506 Level 4 Est. Patient 22:19:34 CDT Pelon Quach MD [facility]-61064 Level 3 Est. Patient 00:34:41 CDT Pelon Quach MD [facility]-25064 Level 4 Est. Patient 11:19:14 CDT Pelon Quach MD [facility]-09731 Level 4 Est. Patient 16:43:30 MONOTYPE CASTER Pelon Quach MD [facility]-91574 Level 4 Est. Patient 12:42:18 CDT Pelon Quach MD [facility] CPT-87884 Level 4 Est. Patient 11:52:20 CDT Pelon Quach MD [facility] CPT-42018 Level 4 Est. Patient 13:59:46 CDT Pelon Quach MD [facility] CPT-20847 Level 4 Est. Patient 15:10:48 CDT Pelon Quach MD [facility] CPT-51291 Level 4 Est. Patient 17:13:06 CDT Pelon Quach MD [facility] CPT-55116 Level 4 Est. Patient 18:47:47 CDT Pelon Quach MD [facility] CPT-85497 Level 3 Est. Patient 21:01:27 CDT Pelon Quach MD [facility] CPT-58439 Level 3 Est. Patient 14:07:03 CDT Taty Alvarado MD, PhD [facility] CPT-50213 Level 3 New Patient 21:39:52 MONOTYPE CASTER Pelon Quach MD [facility] CPT-14906 Level 3 Est. Patient 14:28:44 CDT Glenn Thornton MD [facility] CPT-30541 Level 3 Est. Patient 16:35:00 CDT Glenn Thornton MD [facility] CPT-67117 Level 4 New Patient 17:06:27 CDT Glenn Thornton MD [facility] [place] Procedures Code Procedure Name Date Entry Date Standard Description CPT-G0438 Initial Annual Wellness Exam 09:30:54 CDT CPT-91562 Prevnar 13 Intramuscular Suspension 14:34:25 CDT 12/27 CPT-92448 Chest 2V Frontal and Lat - XRAY USE ONLY 11:56:13 MONOTYPE CASTER CPT-42234 Cystoscopy 14:28:44 CDT CPT-27451 Bladder Scan 14:28:44 CDT CPT-60031 Indwelling Cath Change 17:06:27 CDT CPT-17085 Cystoscopy 17:06:27 CDT
--- OUTSIDE RECORDS SUMMARY | 2018-06-22 12:12 | XMS REPORT | Clinical Summary ---
Author Author Admin, ONESIMO Organization [facility] [place] Address Unknown Phone Unavailable Allergies, Adverse Reactions, [...] four times daily , for cough IPRATROPIUM-ALBUTEROL 86282887662 Active Jaycee Garcia APRN Active TYLENOL 8 HOUR 650 MG ORAL CR-TABS Take 1 tab po up to 3 times daily as needed ACETAMINOPHEN 05507727005 Active Jaycee Garcia APRN Active FUROSEMIDE 40 MG TABS Take one by mouth daily FUROSEMIDE 09256607422 No Longer Active Jaycee Garcia APRN Active LANTUS 100 UNIT/ML SC SOLN 20 SUBQ AT HS INSULIN GLARGINE 93806644082 Active Jaycee aGrcia APRN Active LAMICTAL 25 MG ORAL TABS 2 tabs po BID for convulsions LAMOTRIGINE 34114103872 Active Jaycee Garcia APRN Active INVEGA 6 MG ORAL [id number] 1 po daily for Schizophrenia PALIPERIDONE 84165666467 Active Jaycee Garcia APRN Active LASIX 20 MG TAB 1 tablet by mouth every morning for edema FUROSEMIDE 77912686933 Active Jaycee Jose PIE MAKER Active BUSPIRONE HCL 10 MG TABS 1 tab by mouth BID BUSPIRONE HCL 98991534071 Active Jaycee Garcia APRN Active NOVOLOG 100 UNIT/ML SC SOLN 10 UNITS BEFORE SUPPER INSULIN ASPART 59563753357 Active Jaycee Garcia PIE MAKER Active NOVOLOG 100 UNIT/ML SC SOLN 10 UNITS BID BEFORE BREAKFAST AND LUNCH INSULIN ASPART 11184735616 Active Jaycee Garcia APRN Active LAMICTAL 25 MG TABS 2 tabs by mouth twice a day LAMOTRIGINE 23548197096 Active Pelon Quach MD Active ADULT ASPIRIN EC LOW STRENGTH 81 MG TBEC Take one by mouth daily ASPIRIN 40358602379 No Longer Active Pelon Quach MD Active ASPIRIN 81 MG ORAL TABS 1 po qd ASPIRIN 04776176534 Active Pelon Quach MD Active ZOFRAN 4 MG TABS 1 po q6hr PRN Nausea ONDANSETRON HCL 45988453285 No Longer Active Pelon Quach MD Active TYLENOL 325 MG TAB 1-2 pills by mouth every 6 hours if needed for pain/fever ACETAMINOPHEN 38780605904 No Longer Active Pelon Quach MD Active INVEGA 6 MG ORAL [id number] 1 TAB ONCE DAILY PALIPERIDONE 42183228070 No Longer Active Carly Suggs Active TEGRETOL 200 MG TABS by mouth twice a day CARBAMAZEPINE 33310615956 Active Taty Alvarado MD PhD Active FLOMAX 0.4 MG CAPS 1 Daily TAMSULOSIN HCL 65245350726 Active Marianelachandrika Juarez Active DILANTIN 100 MG CAPS Take one by mouth daily PHENYTOIN SODIUM EXTENDED 04519593683 No Longer Active Marianela Juarez Active DEPAKOTE SPRINKLES 125 MG CPSP 4 capsules by mouth twice daily DIVALPROEX SODIUM 26334354865 No Longer Active Marianelachandrika Juarez Active LAMICTAL 200 MG ORAL TABS 1 BY MOUTH TWICE A DAY LAMOTRIGINE 49085706746 Active Marianela Juarez Active LAMICTAL 100 MG TABS by mouth twice a day LAMOTRIGINE 47241938885 No Longer Active Marianela Juarez Active LAMICTAL 150 MG TABS by mouth twice a day LAMOTRIGINE 03683373597 No Longer Active Marianela Juarez Active DILANTIN 100 MG CAPS Take three by mouth daily PHENYTOIN SODIUM EXTENDED 51946202052 No Longer Active Marianela Juarez Active SENOKOT 8.6 MG TABS take at bedtime SENNOSIDES 73288454251 Active Glenn Thornton MD Active LIPITOR 20 MG TABS take at bedtime ATORVASTATIN CALCIUM 25351994159 Active Glenn Thornton MD Active LISINOPRIL 2.5 MG TABS Take one by mouth daily LISINOPRIL 74666228332 Active Glenn Thornton MD Active TRENTAL 400 MG CR-TABS by mouth twice a day PENTOXIFYLLINE 17439387843 Active Glenn Thornton MD Active KLOR-CON 10 10 MEQ CR-TABS Take one by mouth daily POTASSIUM CHLORIDE 56965341873 Active Glenn Thornton MD Active DILANTIN 100 MG CAPS Take three by mouth daily DILANTIN 100 MG CAPS 753001 PHENYTOIN SODIUM EXTENDED Inactive LAMICTAL 150 MG TABS by mouth twice a day LAMICTAL 150 MG TABS 19831025 LAMOTRIGINE Inactive LAMICTAL 100 MG TABS by mouth twice a day LAMICTAL 100 MG TABS 19831024 LAMOTRIGINE Inactive DEPAKOTE SPRINKLES 125 MG CPSP 4 capsules by mouth twice daily DEPAKOTE SPRINKLES 125 MG CPSP 1286671 DIVALPROEX SODIUM Inactive DILANTIN 100 MG CAPS Take one by mouth daily DILANTIN 100 MG CAPS 191393 PHENYTOIN SODIUM EXTENDED Inactive INVEGA 6 MG ORAL [id number] 1 TAB ONCE DAILY INVEGA 6 MG ORAL [id number] PALIPERIDONE Inactive TYLENOL 325 MG TAB 1-2 pills by mouth every 6 hours if needed for pain/fever TYLENOL 325 MG TAB 929122 ACETAMINOPHEN Inactive ZOFRAN 4 MG TABS 1 po q6hr PRN Nausea ZOFRAN 4 MG TABS 333167 ONDANSETRON HCL Inactive ADULT ASPIRIN EC LOW STRENGTH 81 MG TBEC Take one by mouth daily ADULT ASPIRIN EC LOW STRENGTH 81 MG TBEC 609601 ASPIRIN Inactive FUROSEMIDE 40 MG TABS Take one by mouth daily FUROSEMIDE 40 MG TABS 308233 FUROSEMIDE Inactive Advance Directives Directive Description Start Date DURABLE POWER OF WATER RESOURCE AGENT FOR HEALTHCARE PERMISSION TO SHARE ADVANCED DIRECTIVE [...] mg/dL Encounters Code Encounter Date Provider Facility CPT-[id number] Level 3 Est. Patient 09:40:44 CADD MANAGER Jaycee Garcia [facility] CPT-75671 Level 3 Est. Patient 09:36:32 CADD MANAGER Jaycee Garcia [facility] CPT-77511 Level 4 Est. Patient 16:57:02 CADD MANAGER Pelon Quach MD [facility] CPT-40008 Level 4 Est. Patient 22:19:34 CDT Pelon Quach MD [facility] CPT-18696 Level 3 Est. Patient 00:34:41 CDT Pelon Quach MD [facility] CPT-71166 Level 4 Est. Patient 11:19:14 CDT Pelon Quach MD [facility] CPT-29637 Level 4 Est. Patient 16:43:30 CADD MANAGER Pelon Quach MD [facility] CPT-81897 Level 4 Est. Patient 12:42:18 CDT Pelon Quach MD [facility] CPT-70217 Level 4 Est. Patient 11:52:20 CDT Pelon Quach MD [facility] CPT-63749 Level 4 Est. Patient 13:59:46 CDT Pelon Quach MD [facility] CPT-54538 Level 4 Est. Patient 15:10:48 CDT Pelon Quach MD [facility] CPT-69621 Level 4 Est. Patient 17:13:06 CDT Pelon Quach MD [facility] CPT-62545 Level 4 Est. Patient 18:47:47 CDT Pelon Quach MD [facility] CPT-29553 Level 3 Est. Patient 21:01:27 CDT Pelon Quach MD [facility] CPT-97149 Level 3 Est. Patient 14:07:03 CDT Taty Alvarado MD PhD [facility] CPT-22957 Level 3 New Patient 21:39:52 CADD MANAGER Pelon Quach MD [facility] CPT-13497 Level 3 Est. Patient 14:28:44 CDT Glenn Thornton MD [facility] CPT-69312 Level 3 Est. Patient 16:35:00 CDT Glenn Thornton MD [facility] CPT-83210 Level 4 New Patient 17:06:27 CDT Glenn Thornton MD [facility] Procedures Code Procedure Name Date Entry Date Standard Description CPT-83655 Cystoscopy 14:28:44 CDT CPT-96083 Bladder Scan 14:28:44 CDT CPT-60295 Indwelling Cath Change 17:06:27 CDT CPT-20946 Cystoscopy 17:06:27 CDT
--- OUTSIDE RECORDS SUMMARY | 2018-06-22 12:12 | XMS REPORT | Clinical Summary ---
Author Author Admin, ONESIMO Organization [facility] Address Unknown Phone Unavailable Allergies, Adverse Reactions, [...] HOUR 1 po daily for schizophrenia PALIPERIDONE 42100409922 Active Pelon Quach MD Active LAMICTAL 25 MG ORAL TABLET 2 tabs by mouth twice a day LAMOTRIGINE 10098955113 No Longer Active Pelon Quach MD Active BACTROBAN 2 % EXTERNAL OINTMENT Apply to affected area BID 06/28 MUPIROCIN 23774312380 No Longer Active Pelon Quach MD Active BANOPHEN 25 MG ORAL TABLET 1 po every 6 hours PRN allergic reaction DIPHENHYDRAMINE HCL 29318376142 Active NICOLETTE Hitchcock Active INVEGA 6 MG ORAL TABLET EXTENDED RELEASE 24 HOUR 1 po daily for Schizophrenia PALIPERIDONE 93518084588 No Longer Active Pelon Quach MD Active TYLENOL 8 HOUR 650 MG ORAL TABLET EXTENDED RELEASE Take 1 tab po up to 3 times daily as needed ACETAMINOPHEN 55606233034 No Longer Active Pelon Quach MD Active IPRATROPIUM-ALBUTEROL 0.5-2.5 (3) MG/3ML INHALATION SOLUTION 1 neb treatment QID for cough Dx: J06.9 IPRATROPIUM-ALBUTEROL 64371228984 No Longer Active Pelon Quach MD Active BACTRIM DS 800-160 MG ORAL TABLET 1 tab by mouth twice daily 2016 TRIMETHOPRIM-SULFAMETHOXAZOLE 35822394206 No Longer Active Pelon Quach MD Active BACTRIM DS 800-160 MG ORAL TABLET 1 twice a day SULFAMETHOXAZOLE-TRIMETHOPRIM 72832816186 No Longer Active Pelon Quach MD Active IPRATROPIUM-ALBUTEROL 0.5-2.5 (3) MG/3ML INHALATION SOLUTION 1 neb treatment four times daily, for cough IPRATROPIUM-ALBUTEROL 75182691334 No Longer Active Jaycee Garcia APRN Active FUROSEMIDE 40 MG ORAL TABLET Take one by mouth daily FUROSEMIDE 46160401496 No Longer Active Jaycee Garcia APRN Active LANTUS 100 UNIT/ML SUBCUTANEOUS SOLUTION 20 SUBQ AT HS INSULIN GLARGINE 94891515551 Active Pelon Quach MD Active LAMICTAL 25 MG ORAL TABLET 2 tabs po BID for convulsions LAMOTRIGINE 40230022152 Active Jaycee Garcia APRN Active LASIX 20 MG ORAL TABLET 1 tablet by mouth every morning for edema FUROSEMIDE 14636155723 Active Jaycee Garcia APRN Active BUSPIRONE HCL 10 MG ORAL TABLET 1 tab by mouth BID BUSPIRONE HCL 84016328373 Active Jaycee Garcia APRN Active NOVOLOG 100 UNIT/ML SUBCUTANEOUS SOLUTION 10 UNITS BEFORE SUPPER INSULIN ASPART 35150023383 Active Jaycee Garcia APRN Active NOVOLOG 100 UNIT/ML SUBCUTANEOUS SOLUTION 10 UNITS BID BEFORE BREAKFAST AND LUNCH INSULIN ASPART 97125499056 Active Jaycee Garcia APRN Active ADULT ASPIRIN EC LOW STRENGTH 81 MG ORAL TABLET DELAYED RELEASE Take one by mouth daily ASPIRIN 48552318965 No Longer Active Pelon Quach MD Active ASPIRIN 81 MG ORAL TABLET 1 po qd ASPIRIN 74697849613 Active Pelon Quach MD Active ZOFRAN 4 MG ORAL TABLET 1 po q6hr PRN Nausea ONDANSETRON HCL 11423314738 No Longer Active Pelon Quach MD Active TYLENOL 325 MG ORAL TABLET 1-2 pills by mouth every 6 hours if needed for pain /fever ACETAMINOPHEN 86447640622 No Longer Active Pelon Quach MD Active INVEGA 6 MG ORAL TABLET EXTENDED RELEASE 24 HOUR 1 TAB ONCE DAILY PALIPERIDONE 16743375122 No Longer Active Carly Suggs Active TEGRETOL 200 MG ORAL TABLET by mouth twice a day CARBAMAZEPINE 43402792259 Active Taty Alvarado MD PhD Active FLOMAX 0.4 MG ORAL CAPSULE 1 Daily TAMSULOSIN HCL 16994284816 Active Marianela Juarez Active DILANTIN 100 MG ORAL CAPSULE Take one by mouth daily PHENYTOIN SODIUM EXTENDED 40161745488 No Longer Active Marianela Juarez Active DEPAKOTE SPRINKLES 125 MG ORAL CAPSULE DELAYED RELEASE SPRINKLE 4 capsules by mouth twice daily DIVALPROEX SODIUM 17532116319 No Longer Active Marianela Juarez Active LAMICTAL 200 MG ORAL TABLET 1 BY MOUTH TWICE A DAY LAMOTRIGINE 80717287193 Active Marianelachandrika Juarez Active LAMICTAL 100 MG ORAL TABLET by mouth twice a day LAMOTRIGINE 54074653915 No Longer Active Marianelachandrika Juarez Active LAMICTAL 150 MG ORAL TABLET by mouth twice a day LAMOTRIGINE 25594847039 No Longer Active Marianela Juarez Active DILANTIN 100 MG ORAL CAPSULE Take three by mouth daily PHENYTOIN SODIUM EXTENDED 14392556740 No Longer Active Marianela Juarez Active SENOKOT 8.6 MG ORAL TABLET take at bedtime SENNOSIDES 75556726565 Active Glenn Thornton MD Active LIPITOR 20 MG ORAL TABLET take at bedtime ATORVASTATIN CALCIUM 43659666402 Active Glenn Thornton MD Active LISINOPRIL 2.5 MG ORAL TABLET Take one by mouth daily LISINOPRIL 28399778177 Active Glenn Thornton MD Active TRENTAL 400 MG CR-TABS by mouth twice a day PENTOXIFYLLINE 99441183160 Active Glenn Thornton MD Active KLOR-CON 10 10 MEQ ORAL TABLET EXTENDED RELEASE Take one by mouth daily POTASSIUM CHLORIDE 36858519300 Active Glenn Thornton MD Active DILANTIN 100 MG ORAL CAPSULE Take three by mouth daily DILANTIN 100 MG ORAL CAPSULE 165782 PHENYTOIN SODIUM EXTENDED Inactive LAMICTAL 150 MG ORAL TABLET by mouth twice a day LAMICTAL 150 MG ORAL TABLET 643623 LAMOTRIGINE Inactive LAMICTAL 100 MG ORAL TABLET by mouth twice a day LAMICTAL 100 MG ORAL TABLET 421814 LAMOTRIGINE Inactive DEPAKOTE SPRINKLES 125 MG ORAL CAPSULE DELAYED RELEASE SPRINKLE 4 capsules by mouth twice daily DEPAKOTE SPRINKLES 125 MG ORAL CAPSULE DELAYED RELEASE SPRINKLE 8626714 DIVALPROEX SODIUM Inactive DILANTIN 100 MG ORAL CAPSULE Take one by mouth daily DILANTIN 100 MG ORAL CAPSULE 504090 PHENYTOIN SODIUM EXTENDED Inactive INVEGA 6 MG ORAL TABLET EXTENDED RELEASE 24 HOUR 1 TAB ONCE DAILY INVEGA 6 MG ORAL TABLET EXTENDED RELEASE 24 HOUR PALIPERIDONE Inactive TYLENOL 325 MG ORAL TABLET 1-2 pills by mouth every 6 hours if needed for pain /fever TYLENOL 325 MG ORAL TABLET 917627 ACETAMINOPHEN Inactive ZOFRAN 4 MG ORAL TABLET 1 po q6hr PRN Nausea ZOFRAN 4 MG ORAL TABLET 288984 ONDANSETRON HCL Inactive ADULT ASPIRIN EC LOW STRENGTH 81 MG ORAL TABLET DELAYED RELEASE Take one by mouth daily ADULT ASPIRIN EC LOW STRENGTH 81 MG ORAL TABLET DELAYED RELEASE 137401 ASPIRIN Inactive FUROSEMIDE 40 MG ORAL TABLET Take one by mouth daily FUROSEMIDE 40 MG ORAL TABLET 058107 FUROSEMIDE Inactive BACTRIM DS 800-160 MG ORAL TABLET 1 twice a day BACTRIM DS 800-160 MG ORAL TABLET 797459 SULFAMETHOXAZOLE-TRIMETHOPRIM Inactive IPRATROPIUM-ALBUTEROL 0.5-2.5 (3) MG/3ML INHALATION SOLUTION 1 neb treatment QID for cough Dx: J06.9 IPRATROPIUM-ALBUTEROL 0.5-2.5 ( 3) MG/3ML INHALATION SOLUTION 2748667 IPRATROPIUM-ALBUTEROL Inactive TYLENOL 8 HOUR 650 MG [...] BID 06/28 BACTROBAN 2 % EXTERNAL OINTMENT 378289 MUPIROCIN Inactive LAMICTAL 25 MG ORAL TABLET 2 tabs by mouth twice a day LAMICTAL 25 MG ORAL TABLET 250215 LAMOTRIGINE Inactive IPRATROPIUM-ALBUTEROL 0.5-2.5 (3) MG/3ML INHALATION SOLUTION 1 neb treatment four times daily, for cough IPRATROPIUM-ALBUTEROL 0.5- 2.5 (3) MG/3ML INHALATION SOLUTION 2478288 IPRATROPIUM-ALBUTEROL Inactive BACTRIM DS 800-160 MG ORAL TABLET 1 tab by mouth twice daily 2016 BACTRIM DS 800-160 MG ORAL TABLET 847555 TRIMETHOPRIM- SULFAMETHOXAZOLE Inactive Advance Directives Directive Description Start Date DURABLE POWER OF LEAD COOK FOR HEALTHCARE PERMISSION TO SHARE ADVANCED DIRECTIVE [...] Panel - Chemistry sodium, serum 127 mmol/L 237-285 6251/07/28 potassium, serum 5.3 mmol/L 3.5-5.2 chloride, serum 92 mmol/L 98-107 carbon dioxide, venous blood 32.4 mmol/L 21.0-32.0 blood glucose 182 mg/dL 65-110 calcium, serum 9.4 mg/dL 8.5-10.1 urea nitrogen, blood 14 mg/dL 7-18 creatinine, serum 0.94 mg/dL 0.60-1.30 Lab Report: CBC, Comp. Metabolic Panel - Chemistry sodium, serum 129 mmol/L 460-108 3059/07/12 carbon dioxide, venous blood 27.8 mmol/L 21.0-32.0 [...] mg/dL Encounters Code Encounter Date Provider Facility CPT-77566 Level 4 Est. Patient 14:46:38 CDT Pelon Quach MD [facility] CPT-38205 Level 4 Est. Patient 08:43:11 CDT Pelon Quach MD [facility] CPT-61523 Level 4 Est. Patient 14:27:30 CDT Pelon Quach MD [facility] CPT-97834 Level 3 Est. Patient 10:32:17 CDT Jaycee Garcia [facility] CPT-30736 Level 3 Est. Patient 10:15:07 CDT Pelon Quach MD [facility] CPT-46703 Level 4 Est. Patient 09:30:54 CDT Pelon Quach MD [facility] CPT-97063 Level 4 Est. Patient 14:34:25 CDT Pelon Quach MD [facility] CPT-90195 Level 3 Est. 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 Patient 12:13:33 TO[employer] AND GAMES HAND FINISHER Erik Baptiste MD [facility] CPT-97299 Level 3 Est. Patient 09:40:44 TOYS AND GAMES HAND FINISHER Jaycee Garcia [facility] CPT-85989 Level 3 Est. Patient 09:36:32 [employer] AND GAMES HAND FINISHER Jaycee Garcia [facility] CPT-19158 Level 4 Est. Patient 16:57:02 TOYS AND GAMES HAND FINISHER Pelon Quach MD [facility]-54481 Level 4 Est. Patient 22:19:34 CDT Pelon Quach MD [facility]-71552 Level 3 Est. Patient 00:34:41 CDT Pelon Quach MD [facility]-13530 Level 4 Est. Patient 11:19:14 CDT Pelon Quach MD [facility]-46234 Level 4 Est. Patient 16:43:30 TO[employer] AND GAMES HAND FINISHER Pelon Quach MD [facility]-51336 Level 4 Est. Patient 12:42:18 CDT Pelon Quach MD [facility]-49671 Level 4 Est. Patient 11:52:20 CDT Pelon Quach MD [facility]-37176 Level 4 Est. Patient 13:59:46 CDT Pelon Quach MD [facility]-06094 Level 4 Est. Patient 15:10:48 CDT Pelon Quach MD [facility]-81186 Level 4 Est. Patient 17:13:06 CDT Pelon Quach MD [facility]-72962 Level 4 Est. Patient 18:47:47 CDT Pelon Quach MD [facility]-16084 Level 3 Est. Patient 21:01:27 CDT Pelon Quach MD [facility] CPT-32212 Level 3 Est. Patient 14:07:03 CDT Taty Alvarado MD PhD [facility] CPT-46980 Level 3 New Patient 21:39:52 [employer] HAND FINISHER Pelon Quach MD [facility]-62875 Level 3 Est. Patient 14:28:44 CDT Glenn Thornton MD [facility]-36443 Level 3 Est. Patient 16:35:00 CDT Glenn Thornton MD [facility] CPT-17034 Level 4 New Patient 17:06:27 CDT Glenn Thornton MD [facility] Procedures Code Procedure Name Date Entry Date Standard Description CPT-G0438 Initial Annual Wellness Exam 09:30:54 CDT CPT-30891 Prevnar 13 Intramuscular Suspension 14:34:25 CDT 12/27 CPT-19892 Chest 2V Frontal and Lat - XRAY USE ONLY 11:56:13 [employer] AND [employer] HAND FINISHER CPT-62154 Cystoscopy 14:28:44 CDT CPT-02505 Bladder Scan 14:28:44 CDT CPT-12418 Indwelling Cath Change 17:06:27 CDT CPT-19809 Cystoscopy 17:06:27 CDT
--- OUTSIDE RECORDS SUMMARY | 2018-06-22 12:13 | XMS REPORT | Clinical Summary ---
Author Author Admin, ONESIMO Organization [facility] [employer] [place] Address Unknown Phone Unavailable Allergies, Adverse Reactions, [...] TABS 1 twice a day SULFAMETHOXAZOLE- TRIMETHOPRIM 26382896918 Active Erik Baptiste MD Active IPRATROPIUM-ALBUTEROL 0.5-2.5 (3) MG/3ML INH SOLN 1 neb treatment QID for cough Dx: J06.9 IPRATROPIUM-ALBUTEROL 73275710808 Active Jaycee Garcia APRN Active IPRATROPIUM-ALBUTEROL 0.5-2.5 (3) MG/3ML SOLN 1 neb treatment four times daily , for cough IPRATROPIUM-ALBUTEROL 30055186519 No Longer Active Jaycee Garcia APRN Active TYLENOL 8 HOUR 650 MG ORAL CR-TABS Take 1 tab po up to 3 times daily as needed ACETAMINOPHEN 43172217113 Active Jaycee Jose ASSOCIATE PROFESSOR OF COUNSELING Active FUROSEMIDE 40 MG TABS Take one by mouth daily FUROSEMIDE 29535280570 No Longer Active Jaycee Garcia VICTORINO Active LANTUS 100 UNIT/ML SC SOLN 20 SUBQ AT HS INSULIN GLARGINE 09449137564 Active Jaycee Jose ASSOCIATE PROFESSOR OF COUNSELING Active LAMICTAL 25 MG ORAL TABS 2 tabs po BID for convulsions LAMOTRIGINE 63066639801 Active Jaycee Garcia VICTORINO Active INVEGA 6 MG ORAL [id number] 1 po daily for Schizophrenia PALIPERIDONE 46440248068 Active Jaycee Garcia VICTORINO Active LASIX 20 MG TAB 1 tablet by mouth every morning for edema FUROSEMIDE 19686907098 Active Jayceehugo Garcia APRN Active BUSPIRONE HCL 10 MG TABS 1 tab by mouth BID BUSPIRONE HCL 27103448892 Active Jaycee Garcia VICTORINO Active NOVOLOG 100 UNIT/ML SC SOLN 10 UNITS BEFORE SUPPER INSULIN ASPART 41853007051 Active Jaycee Garcia VICTORINO Active NOVOLOG 100 UNIT/ML SC SOLN 10 UNITS BID BEFORE BREAKFAST AND LUNCH INSULIN ASPART 66498515723 Active Jaycee Garcia VICTORINO Active LAMICTAL 25 MG TABS 2 tabs by mouth twice a day LAMOTRIGINE 47061329248 Active Pelon Quach MD Active ADULT ASPIRIN EC LOW STRENGTH 81 MG TBEC Take one by mouth daily ASPIRIN 36887137258 No Longer Active Pelon Quach MD Active ASPIRIN 81 MG ORAL TABS 1 po qd ASPIRIN 77704244827 Active Pelon Quach MD Active ZOFRAN 4 MG TABS 1 po q6hr PRN Nausea ONDANSETRON HCL 12871130420 No Longer Active Pelon Quach MD Active TYLENOL 325 MG TAB 1-2 pills by mouth every 6 hours if needed for pain/fever ACETAMINOPHEN 07254677235 No Longer Active Pelon Quach MD Active INVEGA 6 MG ORAL [id number] 1 TAB ONCE DAILY PALIPERIDONE 10444205101 No Longer Active Carly Suggs Active TEGRETOL 200 MG TABS by mouth twice a day CARBAMAZEPINE 47220940999 Active Taty Alvarado MD PhD Active FLOMAX 0.4 MG CAPS 1 Daily TAMSULOSIN HCL 92556226007 Active Marianelachandrika Juarez Active DILANTIN 100 MG CAPS Take one by mouth daily PHENYTOIN SODIUM EXTENDED 63549810805 No Longer Active Marianelachandrika Juarez Active DEPAKOTE SPRINKLES 125 MG CPSP 4 capsules by mouth twice daily DIVALPROEX SODIUM 86214897061 No Longer Active Marianelachandrika Juarez Active LAMICTAL 200 MG ORAL TABS 1 BY MOUTH TWICE A DAY LAMOTRIGINE 25566629942 Active Marianelachandrika Juarez Active LAMICTAL 100 MG TABS by mouth twice a day LAMOTRIGINE 95889970150 No Longer Active Marianelachandrika Juarez Active LAMICTAL 150 MG TABS by mouth twice a day LAMOTRIGINE 10584082733 No Longer Active Marianelachandrika Juarez Active DILANTIN 100 MG CAPS Take three by mouth daily PHENYTOIN SODIUM EXTENDED 88288164351 No Longer Active Marianela Juarez Active SENOKOT 8.6 MG TABS take at bedtime SENNOSIDES 92684661880 Active Glenn Thornton MD Active LIPITOR 20 MG TABS take at bedtime ATORVASTATIN CALCIUM 63486583193 Active Glenn Thornton MD Active LISINOPRIL 2.5 MG TABS Take one by mouth daily LISINOPRIL 08312637440 Active Glenn Thornton MD Active TRENTAL 400 MG CR-TABS by mouth twice a day PENTOXIFYLLINE 78064390370 Active Glenn Thornton MD Active KLOR-CON 10 10 MEQ CR-TABS Take one by mouth daily POTASSIUM CHLORIDE 12486522512 Active Glenn Thornton MD Active DILANTIN 100 MG CAPS Take three by mouth daily DILANTIN 100 MG CAPS 777146 PHENYTOIN SODIUM EXTENDED Inactive LAMICTAL 150 MG TABS by mouth twice a day LAMICTAL 150 MG TABS 19831025 LAMOTRIGINE Inactive LAMICTAL 100 MG TABS by mouth twice a day LAMICTAL 100 MG TABS 19831024 LAMOTRIGINE Inactive DEPAKOTE SPRINKLES 125 MG CPSP 4 capsules by mouth twice daily DEPAKOTE SPRINKLES 125 MG CPSP 5788457 DIVALPROEX SODIUM Inactive DILANTIN 100 MG CAPS Take one by mouth daily DILANTIN 100 MG CAPS 505764 PHENYTOIN SODIUM EXTENDED Inactive INVEGA 6 MG ORAL [id number] 1 TAB ONCE DAILY INVEGA 6 MG ORAL [id number] PALIPERIDONE Inactive TYLENOL 325 MG TAB 1-2 pills by mouth every 6 hours if needed for pain/fever TYLENOL 325 MG TAB 108809 ACETAMINOPHEN Inactive ZOFRAN 4 MG TABS 1 po q6hr PRN Nausea ZOFRAN 4 MG TABS 219394 ONDANSETRON HCL Inactive ADULT ASPIRIN EC LOW STRENGTH 81 MG TBEC Take one by mouth daily ADULT ASPIRIN EC LOW STRENGTH 81 MG TBEC 846626 ASPIRIN Inactive FUROSEMIDE 40 MG TABS Take one by mouth daily FUROSEMIDE 40 MG TABS 995047 FUROSEMIDE Inactive IPRATROPIUM-ALBUTEROL 0.5-2.5 (3) MG/3ML SOLN 1 neb treatment four times daily , for cough IPRATROPIUM-ALBUTEROL 0.5-2.5 (3) MG/3ML SOLN 4053923 IPRATROPIUM-ALBUTEROL Inactive Advance Directives Directive Description Start Date DURABLE POWER OF INSURANCE ADJUSTOR FOR HEALTHCARE PERMISSION TO SHARE ADVANCED DIRECTIVE [...] mg/dL Encounters Code Encounter Date Provider Facility CPT-10864 Level 3 Est. 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 Patient 12:13:33 TACKING MACHINE OPERATOR Erik Baptiste MD [facility] CPT-16147 Level 3 Est. Patient 09:40:44 TACKING MACHINE OPERATOR Jaycee Garcia [facility] CPT-52240 Level 3 Est. Patient 09:36:32 TACKING MACHINE OPERATOR Jaycee Garcia [facility] CPT-84076 Level 4 Est. Patient 16:57:02 TACKING MACHINE OPERATOR Pelon Quach MD [facility] CPT-11610 Level 4 Est. Patient 22:19:34 CDT Pelon Quach MD [facility] CPT-65924 Level 3 Est. Patient 00:34:41 CDT Pelon Quach MD [facility] CPT-57085 Level 4 Est. Patient 11:19:14 CDT Pelon Quach MD [facility] CPT-17798 Level 4 Est. Patient 16:43:30 TACKING MACHINE OPERATOR Pelon Quach MD [facility] CPT-82265 Level 4 Est. Patient 12:42:18 CDT Pelon Quach MD [facility] CPT-79367 Level 4 Est. Patient 11:52:20 CDT Pelon Quach MD [facility] CPT-77640 Level 4 Est. Patient 13:59:46 CDT Pelon Quach MD [facility] CPT-58037 Level 4 Est. Patient 15:10:48 CDT Pelon Quach MD [facility] CPT-27302 Level 4 Est. Patient 17:13:06 CDT Pelon Quach MD [facility] CPT-34182 Level 4 Est. Patient 18:47:47 CDT Pelon Quach MD [facility] CPT-49878 Level 3 Est. Patient 21:01:27 CDT Pelon Quach MD [facility] CPT-90905 Level 3 Est. Patient 14:07:03 CDT Taty Alvarado MD PhD [facility] CPT-46431 Level 3 New Patient 21:39:52 TACKING MACHINE OPERATOR Pelon Quach MD [facility] CPT-46149 Level 3 Est. Patient 14:28:44 CDT Glenn Thornton MD [facility] CPT-91388 Level 3 Est. Patient 16:35:00 CDT Glenn Thornton MD [facility] CPT-72325 Level 4 New Patient 17:06:27 CDT Glenn Thornton MD [facility] [place] Procedures Code Procedure Name Date Entry Date Standard Description CPT-26534 Chest 2V Frontal and Lat - XRAY USE ONLY 11:56:13 TACKING MACHINE OPERATOR CPT-24685 Cystoscopy 14:28:44 CDT CPT-61359 Bladder Scan 14:28:44 CDT CPT-81095 Indw[address] Cath Change 17:06:27 CDT CPT-18718 Cystoscopy 17:06:27 CDT
--- OUTSIDE RECORDS SUMMARY | 2018-06-22 12:13 | XMS REPORT | Clinical Summary ---
Author Author Admin, ONESIMO Organization [facility] [employer] [place] Address Unknown Phone Unavailable Allergies, Adverse Reactions, [...] Provider Patient Instruction BACTRIM DS 800-160 MG TAB 1 tab by mouth twice daily TRIMETHOPRIM-SULFAMETHOXAZOLE 71025589180 Active Pelon Quach MD Active BACTROBAN 2 % OINTMENT Apply to affected area BID MUPIROCIN 27751084074 Active Jaycee Garcia APRN Active BACTRIM DS 800-160 MG TABS 1 twice a day SULFAMETHOXAZOLE-TRIMETHOPRIM 78921334662 No Longer Active Pelon Quach MD Active IPRATROPIUM-ALBUTEROL 0.5-2.5 (3) MG/3ML INH SOLN 1 neb treatment QID for cough Dx: J06.9 IPRATROPIUM-ALBUTEROL 27473611418 Active Jaycee Garcia APRN Active IPRATROPIUM-ALBUTEROL 0.5-2.5 (3) MG/3ML SOLN 1 neb treatment four times daily , for cough IPRATROPIUM-ALBUTEROL 37355038732 No Longer Active Jaycee Garcia APRN Active TYLENOL 8 HOUR 650 MG ORAL CR-TABS Take 1 tab po up to 3 times daily as needed ACETAMINOPHEN 53362847770 Active Jaycee Garcia APRN Active FUROSEMIDE 40 MG TABS Take one by mouth daily FUROSEMIDE 04910253846 No Longer Active Jaycee Garcia APRN Active LANTUS 100 UNIT/ML SC SOLN 20 SUBQ AT HS INSULIN GLARGINE 99911265443 Active Jaycee Garcia APRN Active LAMICTAL 25 MG ORAL TABS 2 tabs po BID for convulsions LAMOTRIGINE 64386234808 Active Jaycee Garcia APRN Active INVEGA 6 MG ORAL [id number] 1 po daily for Schizophrenia PALIPERIDONE 88890018651 Active Jaycee Garcia APRN Active LASIX 20 MG TAB 1 tablet by mouth every morning for edema FUROSEMIDE 90719144194 Active Jaycee Garcia APRN Active BUSPIRONE HCL 10 MG TABS 1 tab by mouth BID BUSPIRONE HCL 26436477482 Active Jaycee Garcia APRN Active NOVOLOG 100 UNIT/ML SC SOLN 10 UNITS BEFORE SUPPER INSULIN ASPART 96217268522 Active Jaycee Garcia APRN Active NOVOLOG 100 UNIT/ML SC SOLN 10 UNITS BID BEFORE BREAKFAST AND LUNCH INSULIN ASPART 78669737304 Active Jaycee Garcia APRN Active LAMICTAL 25 MG TABS 2 tabs by mouth twice a day LAMOTRIGINE 70125266881 Active Pelon Quach MD Active ADULT ASPIRIN EC LOW STRENGTH 81 MG TBEC Take one by mouth daily ASPIRIN 81209639383 No Longer Active Pelon Quach MD Active ASPIRIN 81 MG ORAL TABS 1 po qd ASPIRIN 92927762187 Active Pelon Quach MD Active ZOFRAN 4 MG TABS 1 po q6hr PRN Nausea ONDANSETRON HCL 68032521764 No Longer Active Pelon Quach MD Active TYLENOL 325 MG TAB 1-2 pills by mouth every 6 hours if needed for pain/fever ACETAMINOPHEN 15095533134 No Longer Active Pelon Quach MD Active INVEGA 6 MG ORAL [id number] 1 TAB ONCE DAILY PALIPERIDONE 71944537769 No Longer Active Carly Suggs Active TEGRETOL 200 MG TABS by mouth twice a day CARBAMAZEPINE 53792987398 Active Taty Alvarado MD PhD Active FLOMAX 0.4 MG CAPS 1 Daily TAMSULOSIN HCL 90563133235 Active Marianela Larry Active DILANTIN 100 MG CAPS Take one by mouth daily PHENYTOIN SODIUM EXTENDED 55534243047 No Longer Active Marianela Larry Active DEPAKOTE SPRINKLES 125 MG CPSP 4 capsules by mouth twice daily DIVALPROEX SODIUM 61447680262 No Longer Active Marianela Raida Active LAMICTAL 200 MG ORAL TABS 1 BY MOUTH TWICE A DAY LAMOTRIGINE 53070596434 Active Marianela Raida Active LAMICTAL 100 MG TABS by mouth twice a day LAMOTRIGINE 27289438717 No Longer Active Marianela Raida Active LAMICTAL 150 MG TABS by mouth twice a day LAMOTRIGINE 96668463663 No Longer Active Marianela Raida Active DILANTIN 100 MG CAPS Take three by mouth daily PHENYTOIN SODIUM EXTENDED 80449474348 No Longer Active Marianela Raida Active SENOKOT 8.6 MG TABS take at bedtime SENNOSIDES 44105346097 Active J Ian Thornton MD Active LIPITOR 20 MG TABS take at bedtime ATORVASTATIN CALCIUM 33281591752 Active Glenn Thornton MD Active LISINOPRIL 2.5 MG TABS Take one by mouth daily LISINOPRIL 05941160759 Active Glenn Thornton MD Active TRENTAL 400 MG CR-TABS by mouth twice a day PENTOXIFYLLINE 57140317932 Active Glenn Thornton MD Active KLOR-CON 10 10 MEQ CR-TABS Take one by mouth daily POTASSIUM CHLORIDE 92473211603 Active Glenn Thornton MD Active DILANTIN 100 MG CAPS Take three by mouth daily DILANTIN 100 MG CAPS 156580 PHENYTOIN SODIUM EXTENDED Inactive LAMICTAL 150 MG TABS by mouth twice a day LAMICTAL 150 MG TABS 19831025 LAMOTRIGINE Inactive LAMICTAL 100 MG TABS by mouth twice a day LAMICTAL 100 MG TABS 19831024 LAMOTRIGINE Inactive DEPAKOTE SPRINKLES 125 MG CPSP 4 capsules by mouth twice daily DEPAKOTE SPRINKLES 125 MG CPSP 0987197 DIVALPROEX SODIUM Inactive DILANTIN 100 MG CAPS Take one by mouth daily DILANTIN 100 MG CAPS 679941 PHENYTOIN SODIUM EXTENDED Inactive INVEGA 6 MG ORAL [id number] 1 TAB ONCE DAILY INVEGA 6 MG ORAL [id number] PALIPERIDONE Inactive TYLENOL 325 MG TAB 1-2 pills by mouth every 6 hours if needed for pain/fever TYLENOL 325 MG TAB 889717 ACETAMINOPHEN Inactive ZOFRAN 4 MG TABS 1 po q6hr PRN Nausea ZOFRAN 4 MG TABS 761854 ONDANSETRON HCL Inactive ADULT ASPIRIN EC LOW STRENGTH 81 MG TBEC Take one by mouth daily ADULT ASPIRIN EC LOW STRENGTH 81 MG TBEC 016664 ASPIRIN Inactive FUROSEMIDE 40 MG TABS Take one by mouth daily FUROSEMIDE 40 MG TABS 215046 FUROSEMIDE Inactive BACTRIM DS 800-160 MG TABS 1 twice a day BACTRIM DS 800-160 MG TABS 933235 SULFAMETHOXAZOLE-TRIMETHOPRIM Inactive IPRATROPIUM-ALBUTEROL 0.5-2.5 (3) MG/3ML SOLN 1 neb treatment four times daily , for cough IPRATROPIUM-ALBUTEROL 0.5-2.5 (3) MG/3ML SOLN 3544203 IPRATROPIUM-ALBUTEROL Inactive Advance Directives Directive Description Start Date DURABLE POWER OF MAJOR ASSEMBLY LINEMAN FOR HEALTHCARE PERMISSION TO SHARE ADVANCED DIRECTIVE [...] Outside labs entered on flowsheet - Chemistry alanine aminotransferase (SGPT), serum 23 U/L alkaline phosphatase, serum 54 U/L cholesterol, serum 255 mg/dL HDL cholesterol, serum 100 mg/dL LDL cholesterol, serum 147.6 mg/dL triglyceride, serum, fasting 37 mg/dL aspartate aminotransferase (SGOT), serum 31 U/L creatinine, serum 0.6 mg/dL blood glucose 120 mg/dL chloride, serum 4.2 mmol/L potassium, serum 132 mmol/L Office Visit: 3 MONTH FU - Basic [...] mg/dL Encounters Code Encounter Date Provider Facility CPT-33345 Level 3 Est. Patient 10:15:07 CDT Pelon Quach MD [facility]-28149 Level 4 Est. Patient 09:30:54 CDT Pelon Quach MD [facility] CPT-34032 Level 4 Est. Patient 14:34:25 CDT Pelon Quach MD [facility]-94474 Level 3 Est. 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 Patient 12:13:33 SOCIAL WORKER PALLIATIVE CARE Erik Baptiste MD [facility]-63838 Level 3 Est. Patient 09:40:44 SOCIAL WORKER PALLIATIVE CARE Jaycee Garcia [facility]-95472 Level 3 Est. Patient 09:36:32 SOCIAL WORKER PALLIATIVE CARE Jaycee Garcia [facility]-13501 Level 4 Est. Patient 16:57:02 SOCIAL WORKER PALLIATIVE CARE Pelon Quach MD [facility]-27514 Level 4 Est. Patient 22:19:34 CDT Pelon Quach MD [facility] CPT-17316 Level 3 Est. Patient 00:34:41 CDT Pelon Quach MD [facility]-40025 Level 4 Est. Patient 11:19:14 CDT Pelon Quach MD [facility]-13675 Level 4 Est. Patient 16:43:30 SOCIAL WORKER PALLIATIVE CARE Pelon Quach MD [facility]-73596 Level 4 Est. Patient 12:42:18 CDT Pelon Quach MD [facility] CPT-18217 Level 4 Est. Patient 11:52:20 CDT Pelon Quach MD [facility] CPT-29715 Level 4 Est. Patient 13:59:46 CDT Pelon Quach MD [facility] CPT-29220 Level 4 Est. Patient 15:10:48 CDT Pelon Quach MD [facility] CPT-07925 Level 4 Est. Patient 17:13:06 CDT Pelon Quach MD [facility] CPT-14218 Level 4 Est. Patient 18:47:47 CDT Pelon Quach MD [facility] CPT-26436 Level 3 Est. Patient 21:01:27 CDT ePlon Quach MD [facility] CPT-53508 Level 3 Est. Patient 14:07:03 CDT Taty Alvarado MD PhD [facility] CPT-61526 Level 3 New Patient 21:39:52 SOCIAL WORKER PALLIATIVE CARE Pelon Quach MD [facility] CPT-26862 Level 3 Est. Patient 14:28:44 CDT Glenn Thornton MD [facility] CPT-83435 Level 3 Est. Patient 16:35:00 CDT Glenn Thornton MD [facility] CPT-89364 Level 4 New Patient 17:06:27 CDT Glenn Thornton MD [facility] [place] Procedures Code Procedure Name Date Entry Date Standard Description CPT-G0438 Initial Annual Wellness Exam 09:30:54 CDT CPT-24223 Prevnar 13 Intramuscular Suspension 14:34:25 CDT 12/27 CPT-32372 Chest 2V Frontal and Lat - XRAY USE ONLY 11:56:13 SOCIAL WORKER PALLIATIVE CARE CPT-48886 Cystoscopy 14:28:44 CDT CPT-35121 Bladder Scan 14:28:44 CDT CPT-59936 Indwelling Cath Change 17:06:27 CDT CPT-39499 Cystoscopy 17:06:27 CDT
--- OUTSIDE RECORDS SUMMARY | 2018-06-22 12:14 | XMS REPORT | Clinical Summary ---
Author Author Admin, ONESIMO Organization [facility] [employer] [place] Address Unknown Phone Unavailable Allergies, Adverse Reactions, [...] 1 tab by mouth twice daily TRIMETHOPRIM-SULFAMETHOXAZOLE 75294659991 No Longer Active Pelon Quach MD Active BACTROBAN 2 % OINTMENT Apply to affected area BID MUPIROCIN 64930573711 Active Jaycee Garcia APRN Active BACTRIM DS 800-160 MG TABS 1 twice a day SULFAMETHOXAZOLE-TRIMETHOPRIM 93098476603 No Longer Active Pelon Quach MD Active IPRATROPIUM-ALBUTEROL 0.5-2.5 (3) MG/3ML INH SOLN 1 neb treatment QID for cough Dx: J06.9 IPRATROPIUM-ALBUTEROL 27355578884 Active Jaycee Garcia APRN Active IPRATROPIUM-ALBUTEROL 0.5-2.5 (3) MG/3ML SOLN 1 neb treatment four times daily , for cough IPRATROPIUM-ALBUTEROL 97752285332 No Longer Active Jaycee Garcia APRN Active TYLENOL 8 HOUR 650 MG ORAL CR-TABS Take 1 tab po up to 3 times daily as needed ACETAMINOPHEN 76301690438 Active Jaycee Garcia APRN Active FUROSEMIDE 40 MG TABS Take one by mouth daily FUROSEMIDE 64046641387 No Longer Active Jaycee Garcia APRN Active LANTUS 100 UNIT/ML SC SOLN 20 SUBQ AT HS INSULIN GLARGINE 48419800665 Active Jaycee Garcia APRN Active LAMICTAL 25 MG ORAL TABS 2 tabs po BID for convulsions LAMOTRIGINE 07486052427 Active Jaycee Garcia APRN Active INVEGA 6 MG ORAL [id number] 1 po daily for Schizophrenia PALIPERIDONE 08686074479 Active Jaycee Garcia APRN Active LASIX 20 MG TAB 1 tablet by mouth every morning for edema FUROSEMIDE 48254910295 Active Jaycee Garcia APRN Active BUSPIRONE HCL 10 MG TABS 1 tab by mouth BID BUSPIRONE HCL 40330609040 Active Jaycee Garcia APRN Active NOVOLOG 100 UNIT/ML SC SOLN 10 UNITS BEFORE SUPPER INSULIN ASPART 91348479210 Active Jaycee Garcia APRN Active NOVOLOG 100 UNIT/ML SC SOLN 10 UNITS BID BEFORE BREAKFAST AND LUNCH INSULIN ASPART 04544259619 Active Jaycee Garcia APRN Active LAMICTAL 25 MG TABS 2 tabs by mouth twice a day LAMOTRIGINE 81889315162 Active Pelon Quach MD Active ADULT ASPIRIN EC LOW STRENGTH 81 MG TBEC Take one by mouth daily ASPIRIN 47886521469 No Longer Active Pelon Quach MD Active ASPIRIN 81 MG ORAL TABS 1 po qd ASPIRIN 12956602069 Active Pelon Quach MD Active ZOFRAN 4 MG TABS 1 po q6hr PRN Nausea ONDANSETRON HCL 48011243447 No Longer Active Pelon Quach MD Active TYLENOL 325 MG TAB 1-2 pills by mouth every 6 hours if needed for pain/fever ACETAMINOPHEN 46688077934 No Longer Active Pelon Quach MD Active INVEGA 6 MG ORAL [id number] 1 TAB ONCE DAILY PALIPERIDONE 96926899593 No Longer Active Carly Suggs Active TEGRETOL 200 MG TABS by mouth twice a day CARBAMAZEPINE 16446864871 Active Taty Alvarado MD PhD Active FLOMAX 0.4 MG CAPS 1 Daily TAMSULOSIN HCL 77124250274 Active Marianela ida Active DILANTIN 100 MG CAPS Take one by mouth daily PHENYTOIN SODIUM EXTENDED 25284529711 No Longer Active Marianela Larry Active DEPAKOTE SPRINKLES 125 MG CPSP 4 capsules by mouth twice daily DIVALPROEX SODIUM 75481154021 No Longer Active Marianela Raida Active LAMICTAL 200 MG ORAL TABS 1 BY MOUTH TWICE A DAY LAMOTRIGINE 57928595822 Active Marianela Raida Active LAMICTAL 100 MG TABS by mouth twice a day LAMOTRIGINE 70835770792 No Longer Active Marianela Raida Active LAMICTAL 150 MG TABS by mouth twice a day LAMOTRIGINE 49895951557 No Longer Active Marianela Raida Active DILANTIN 100 MG CAPS Take three by mouth daily PHENYTOIN SODIUM EXTENDED 60821147753 No Longer Active Marianela Raida Active SENOKOT 8.6 MG TABS take at bedtime SENNOSIDES 97492249967 Active Glenn Thornton MD Active LIPITOR 20 MG TABS take at bedtime ATORVASTATIN CALCIUM 95088044188 Active Glenn Thornton MD Active LISINOPRIL 2.5 MG TABS Take one by mouth daily LISINOPRIL 68036489460 Active Glenn Thornton MD Active TRENTAL 400 MG CR-TABS by mouth twice a day PENTOXIFYLLINE 32858253279 Active Glenn Thornton MD Active KLOR-CON 10 10 MEQ CR-TABS Take one by mouth daily POTASSIUM CHLORIDE 17687409667 Active Glenn Thornton MD Active DILANTIN 100 MG CAPS Take three by mouth daily DILANTIN 100 MG CAPS 773340 PHENYTOIN SODIUM EXTENDED Inactive LAMICTAL 150 MG TABS by mouth twice a day LAMICTAL 150 MG TABS 19831025 LAMOTRIGINE Inactive LAMICTAL 100 MG TABS by mouth twice a day LAMICTAL 100 MG TABS 19831024 LAMOTRIGINE Inactive DEPAKOTE SPRINKLES 125 MG CPSP 4 capsules by mouth twice daily DEPAKOTE SPRINKLES 125 MG CPSP 6347325 DIVALPROEX SODIUM Inactive DILANTIN 100 MG CAPS Take one by mouth daily DILANTIN 100 MG CAPS 087895 PHENYTOIN SODIUM EXTENDED Inactive INVEGA 6 MG ORAL [id number] 1 TAB ONCE DAILY INVEGA 6 MG ORAL [id number] PALIPERIDONE Inactive TYLENOL 325 MG TAB 1-2 pills by mouth every 6 hours if needed for pain/fever TYLENOL 325 MG TAB 663979 ACETAMINOPHEN Inactive ZOFRAN 4 MG TABS 1 po q6hr PRN Nausea ZOFRAN 4 MG TABS 601282 ONDANSETRON HCL Inactive ADULT ASPIRIN EC LOW STRENGTH 81 MG TBEC Take one by mouth daily ADULT ASPIRIN EC LOW STRENGTH 81 MG TBEC 067110 ASPIRIN Inactive FUROSEMIDE 40 MG TABS Take one by mouth daily FUROSEMIDE 40 MG TABS 056037 FUROSEMIDE Inactive BACTRIM DS 800-160 MG TABS 1 twice a day BACTRIM DS 800-160 MG TABS 043033 SULFAMETHOXAZOLE-TRIMETHOPRIM Inactive IPRATROPIUM-ALBUTEROL 0.5-2.5 (3) MG/3ML SOLN 1 neb treatment four times daily , for cough IPRATROPIUM-ALBUTEROL 0.5-2.5 (3) MG/3ML SOLN 2768292 IPRATROPIUM-ALBUTEROL Inactive BACTRIM DS 800-160 MG TAB 1 tab by mouth twice daily BACTRIM DS 800-160 MG TAB 469839 TRIMETHOPRIM-SULFAMETHOXAZOLE Inactive Advance Directives Directive Description Start Date DURABLE POWER OF LETTERER FOR HEALTHCARE PERMISSION TO SHARE ADVANCED DIRECTIVE [...] Results Date Name Value Unit Range Description Office Visit: 3 MONTH FU - Basic [...] mg/dL Encounters Code Encounter Date Provider Facility CPT-31760 Level 3 Est. Patient 10:32:17 CDT Jaycee Jose [facility] CPT-58942 Level 3 Est. Patient 10:15:07 CDT Pelon Quach MD [facility]-02947 Level 4 Est. Patient 09:30:54 CDT Pelon Quach MD [facility] CPT-33471 Level 4 Est. Patient 14:34:25 CDT Pelon Quach MD [facility]-90647 Level 3 Est. Patient 11:51:35 DRY PAN FEEDER Rick Henson DO [facility] CPT-91898 Level 3 Est. Patient 12:13:33 DRY PAN FEEDER Erik Baptiste MD [facility]-56591 Level 3 Est. Patient 09:40:44 DRY PAN FEEDER Jaycee Garcia [facility] [place]-[address]82 Level 3 Est. Patient 09:36:32 DRY PAN FEEDER Jaycee Garcia [facility] [place]-43498 Level 4 Est. Patient 16:57:02 DRY PAN FEEDER Pelon Quach MD [facility]-38570 Level 4 Est. Patient 22:19:34 CDT Pelon Quach MD [facility]-69377 Level 3 Est. Patient 00:34:41 CDT Pelon Quach MD [facility]-58509 Level 4 Est. Patient 11:19:14 CDT Pelon Quach MD [facility]-95304 Level 4 Est. Patient 16:43:30 DRY PAN FEEDER Pelon Quach MD [facility]-35602 Level 4 Est. Patient 12:42:18 CDT Pelon Quach MD [facility] CPT-07166 Level 4 Est. Patient 11:52:20 CDT Pelon Quach MD [facility] CPT-10771 Level 4 Est. Patient 13:59:46 CDT Pelon Quach MD [facility] CPT-56837 Level 4 Est. Patient 15:10:48 CDT Pelon Quach MD [facility] CPT-47358 Level 4 Est. Patient 17:13:06 CDT Pelon Quach MD [facility] CPT-43285 Level 4 Est. Patient 18:47:47 CDT Pelon Quach MD [facility] CPT-03454 Level 3 Est. Patient 21:01:27 CDT Pelon Quach MD [facility] CPT-55544 Level 3 Est. Patient 14:07:03 CDT Taty Alvarado MD PhD [facility] CPT-00059 Level 3 New Patient 21:39:52 DRY PAN FEEDER Pelon Quach MD [facility] CPT-77505 Level 3 Est. Patient 14:28:44 CDT Glenn Thornton MD [facility] CPT-08874 Level 3 Est. Patient 16:35:00 CDT Glenn Thornton MD [facility] CPT-19126 Level 4 New Patient 17:06:27 CDT Glenn Thornton MD [facility] Procedures Code Procedure Name Date Entry Date Standard Description CPT-G0438 Initial Annual Wellness Exam 09:30:54 CDT CPT-54697 Prevnar 13 Intramuscular Suspension 14:34:25 CDT 12/27 CPT-60566 Chest 2V Frontal and Lat - XRAY USE ONLY 11:56:13 DRY PAN FEEDER CPT-15665 Cystoscopy 14:28:44 CDT CPT-35667 Bladder Scan 14:28:44 CDT CPT-38820 Indwelling Cath Change 17:06:27 CDT CPT-45741 Cystoscopy 17:06:27 CDT
--- OUTSIDE RECORDS SUMMARY | 2018-06-22 12:14 | XMS REPORT | Clinical Summary ---
Author Author Admin, ONESIMO Organization [facility] [employer] [place] Address Unknown Phone Unavailable Allergies, Adverse Reactions, [...] 1 tab by mouth twice daily TRIMETHOPRIM-SULFAMETHOXAZOLE 99848385334 No Longer Active Pelon Quach MD Active BACTROBAN 2 % OINTMENT Apply to affected area BID MUPIROCIN 60869166758 Active Jaycee Garcia APRN Active BACTRIM DS 800-160 MG TABS 1 twice a day SULFAMETHOXAZOLE-TRIMETHOPRIM 95677365429 No Longer Active Pelon Quach MD Active IPRATROPIUM-ALBUTEROL 0.5-2.5 (3) MG/3ML INH SOLN 1 neb treatment QID for cough Dx: J06.9 IPRATROPIUM-ALBUTEROL 07774898115 Active Jaycee Garcia APRN Active IPRATROPIUM-ALBUTEROL 0.5-2.5 (3) MG/3ML SOLN 1 neb treatment four times daily , for cough IPRATROPIUM-ALBUTEROL 70959706384 No Longer Active Jaycee Garcia APRN Active TYLENOL 8 HOUR 650 MG ORAL CR-TABS Take 1 tab po up to 3 times daily as needed ACETAMINOPHEN 02593805196 Active Jaycee Garcia APRN Active FUROSEMIDE 40 MG TABS Take one by mouth daily FUROSEMIDE 91956520528 No Longer Active Jaycee Garcia APRN Active LANTUS 100 UNIT/ML SC SOLN 20 SUBQ AT HS INSULIN GLARGINE 11019748234 Active Jaycee Garcia APRN Active LAMICTAL 25 MG ORAL TABS 2 tabs po BID for convulsions LAMOTRIGINE 83045825612 Active Jaycee Garcia APRN Active INVEGA 6 MG ORAL [id number] 1 po daily for Schizophrenia PALIPERIDONE 19998097812 Active Jaycee Garcia APRN Active LASIX 20 MG TAB 1 tablet by mouth every morning for edema FUROSEMIDE 20426638841 Active Jaycee Garcia APRN Active BUSPIRONE HCL 10 MG TABS 1 tab by mouth BID BUSPIRONE HCL 52353560041 Active Jaycee Garcia APRN Active NOVOLOG 100 UNIT/ML SC SOLN 10 UNITS BEFORE SUPPER INSULIN ASPART 85438807611 Active Jaycee Garcia APRN Active NOVOLOG 100 UNIT/ML SC SOLN 10 UNITS BID BEFORE BREAKFAST AND LUNCH INSULIN ASPART 06468158953 Active Jaycee Garcia APRN Active LAMICTAL 25 MG TABS 2 tabs by mouth twice a day LAMOTRIGINE 13451489654 Active Pelon Quach MD Active ADULT ASPIRIN EC LOW STRENGTH 81 MG TBEC Take one by mouth daily ASPIRIN 68716095752 No Longer Active Pelon Quach MD Active ASPIRIN 81 MG ORAL TABS 1 po qd ASPIRIN 27695675567 Active Pelon Quach MD Active ZOFRAN 4 MG TABS 1 po q6hr PRN Nausea ONDANSETRON HCL 25985007107 No Longer Active Pelon Quach MD Active TYLENOL 325 MG TAB 1-2 pills by mouth every 6 hours if needed for pain/fever ACETAMINOPHEN 26321537151 No Longer Active Pelon Quach MD Active INVEGA 6 MG ORAL [id number] 1 TAB ONCE DAILY PALIPERIDONE 10629762544 No Longer Active Carly Suggs Active TEGRETOL 200 MG TABS by mouth twice a day CARBAMAZEPINE 81780427439 Active Taty Alvarado MD PhD Active FLOMAX 0.4 MG CAPS 1 Daily TAMSULOSIN HCL 17789732423 Active Marianela ida Active DILANTIN 100 MG CAPS Take one by mouth daily PHENYTOIN SODIUM EXTENDED 86472483915 No Longer Active Marianela Larry Active DEPAKOTE SPRINKLES 125 MG CPSP 4 capsules by mouth twice daily DIVALPROEX SODIUM 79199364341 No Longer Active Marianela Raida Active LAMICTAL 200 MG ORAL TABS 1 BY MOUTH TWICE A DAY LAMOTRIGINE 37922690894 Active Marianela Raida Active LAMICTAL 100 MG TABS by mouth twice a day LAMOTRIGINE 12941608118 No Longer Active Marianela Raida Active LAMICTAL 150 MG TABS by mouth twice a day LAMOTRIGINE 82449377931 No Longer Active Marianela Raida Active DILANTIN 100 MG CAPS Take three by mouth daily PHENYTOIN SODIUM EXTENDED 61328112263 No Longer Active Marianela Raida Active SENOKOT 8.6 MG TABS take at bedtime SENNOSIDES 19453005239 Active Glenn Thornton MD Active LIPITOR 20 MG TABS take at bedtime ATORVASTATIN CALCIUM 12939004827 Active Glenn Thornton MD Active LISINOPRIL 2.5 MG TABS Take one by mouth daily LISINOPRIL 84616770171 Active Glenn Thornton MD Active TRENTAL 400 MG CR-TABS by mouth twice a day PENTOXIFYLLINE 85662447462 Active Glenn Thornton MD Active KLOR-CON 10 10 MEQ CR-TABS Take one by mouth daily POTASSIUM CHLORIDE 42293211937 Active Glenn Thornton MD Active DILANTIN 100 MG CAPS Take three by mouth daily DILANTIN 100 MG CAPS 308830 PHENYTOIN SODIUM EXTENDED Inactive LAMICTAL 150 MG TABS by mouth twice a day LAMICTAL 150 MG TABS 19831025 LAMOTRIGINE Inactive LAMICTAL 100 MG TABS by mouth twice a day LAMICTAL 100 MG TABS 19831024 LAMOTRIGINE Inactive DEPAKOTE SPRINKLES 125 MG CPSP 4 capsules by mouth twice daily DEPAKOTE SPRINKLES 125 MG CPSP 8502175 DIVALPROEX SODIUM Inactive DILANTIN 100 MG CAPS Take one by mouth daily DILANTIN 100 MG CAPS 133496 PHENYTOIN SODIUM EXTENDED Inactive INVEGA 6 MG ORAL [id number] 1 TAB ONCE DAILY INVEGA 6 MG ORAL [id number] PALIPERIDONE Inactive TYLENOL 325 MG TAB 1-2 pills by mouth every 6 hours if needed for pain/fever TYLENOL 325 MG TAB 333009 ACETAMINOPHEN Inactive ZOFRAN 4 MG TABS 1 po q6hr PRN Nausea ZOFRAN 4 MG TABS 229188 ONDANSETRON HCL Inactive ADULT ASPIRIN EC LOW STRENGTH 81 MG TBEC Take one by mouth daily ADULT ASPIRIN EC LOW STRENGTH 81 MG TBEC 798303 ASPIRIN Inactive FUROSEMIDE 40 MG TABS Take one by mouth daily FUROSEMIDE 40 MG TABS 770349 FUROSEMIDE Inactive BACTRIM DS 800-160 MG TABS 1 twice a day BACTRIM DS 800-160 MG TABS 226432 SULFAMETHOXAZOLE-TRIMETHOPRIM Inactive IPRATROPIUM-ALBUTEROL 0.5-2.5 (3) MG/3ML SOLN 1 neb treatment four times daily , for cough IPRATROPIUM-ALBUTEROL 0.5-2.5 (3) MG/3ML SOLN 1342743 IPRATROPIUM-ALBUTEROL Inactive BACTRIM DS 800-160 MG TAB 1 tab by mouth twice daily BACTRIM DS 800-160 MG TAB 505350 TRIMETHOPRIM-SULFAMETHOXAZOLE Inactive Advance Directives Directive Description Start Date DURABLE POWER OF SPACE OFFICER FOR HEALTHCARE PERMISSION TO SHARE ADVANCED DIRECTIVE [...] mg/dL Encounters Code Encounter Date Provider Facility CPT-95771 Level 3 Est. Patient 10:32:17 CDT Jaycee Jose [facility] CPT-48121 Level 3 Est. Patient 10:15:07 CDT Pelon Quach MD [facility]-76951 Level 4 Est. Patient 09:30:54 CDT Pelon Quach MD [facility] CPT-43475 Level 4 Est. Patient 14:34:25 CDT Pelon Quach MD [facility]-43280 Level 3 Est. 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 Patient 12:13:33 AIR CONDITIONING UNIT ASSEMBLER Erik Baptiste MD [facility]-41406 Level 3 Est. Patient 09:40:44 AIR CONDITIONING UNIT ASSEMBLER Jaycee Garcia [facility]-69419 Level 3 Est. Patient 09:36:32 AIR CONDITIONING UNIT ASSEMBLER Jaycee Garcia [facility]-69736 Level 4 Est. Patient 16:57:02 AIR CONDITIONING UNIT ASSEMBLER Pelon Quach MD [facility]-85252 Level 4 Est. Patient 22:19:34 CDT Pelon Quach MD [facility]-18546 Level 3 Est. Patient 00:34:41 CDT Pelon Quach MD [facility]-63774 Level 4 Est. Patient 11:19:14 CDT Pelon Quach MD [facility]-01719 Level 4 Est. Patient 16:43:30 AIR CONDITIONING UNIT ASSEMBLER Pelon Quach MD [facility]-60617 Level 4 Est. Patient 12:42:18 CDT Pelon Quach MD [facility] CPT-91740 Level 4 Est. Patient 11:52:20 CDT Pelon Quach MD [facility] CPT-94808 Level 4 Est. Patient 13:59:46 CDT Pelon Quach MD [facility] CPT-30097 Level 4 Est. Patient 15:10:48 CDT Pelon Quach MD [facility] CPT-21916 Level 4 Est. Patient 17:13:06 CDT Pelon Quach MD [facility] CPT-90834 Level 4 Est. Patient 18:47:47 CDT Pelon Quach MD [facility] CPT-62377 Level 3 Est. Patient 21:01:27 CDT Pelon Quach MD [facility] CPT-75635 Level 3 Est. Patient 14:07:03 CDT Taty Alvarado MD PhD [facility] CPT-52519 Level 3 New Patient 21:39:52 AIR CONDITIONING UNIT ASSEMBLER Pelon Quach MD [facility] CPT-37363 Level 3 Est. Patient 14:28:44 CDT Glenn Thornton MD [facility] CPT-23231 Level 3 Est. Patient 16:35:00 CDT Glenn Thornton MD [facility] CPT-71219 Level 4 New Patient 17:06:27 CDT Glenn Thornton MD [facility] Procedures Code Procedure Name Date Entry Date Standard Description CPT-G0438 Initial Annual Wellness Exam 09:30:54 CDT CPT-76754 Prevnar 13 Intramuscular Suspension 14:34:25 CDT 12/27 CPT-19379 Chest 2V Frontal and Lat - XRAY USE ONLY 11:56:13 [employer] CONDITIONING UNIT ASSEMBLER CPT-31035 Cystoscopy 14:28:44 CDT CPT-71554 Bladder Scan 14:28:44 CDT CPT-29097 Ind[address] Cath Change 17:06:27 CDT CPT-96320 Cystoscopy 17:06:27 CDT
--- OUTSIDE RECORDS SUMMARY | 2018-06-22 12:15 | XMS REPORT | Clinical Summary ---
Author Author Admin, ONESIMO Organization [facility] Address Unknown Phone Unavailable Allergies, Adverse Reactions, [...] TABS 1 twice a day SULFAMETHOXAZOLE- TRIMETHOPRIM 19054634417 Active Erik Baptiste MD Active IPRATROPIUM-ALBUTEROL 0.5-2.5 (3) MG/3ML INH SOLN 1 neb treatment QID for cough Dx: J06.9 IPRATROPIUM-ALBUTEROL 35043423607 Active Jaycee Garcia APRN Active IPRATROPIUM-ALBUTEROL 0.5-2.5 (3) MG/3ML SOLN 1 neb treatment four times daily , for cough IPRATROPIUM-ALBUTEROL 01970182208 No Longer Active Jaycee Garcia APRN Active TYLENOL 8 HOUR 650 MG ORAL CR-TABS Take 1 tab po up to 3 times daily as needed ACETAMINOPHEN 06280682467 Active Jaycee Jose POULTRY OFFAL ICER Active FUROSEMIDE 40 MG TABS Take one by mouth daily FUROSEMIDE 87903163291 No Longer Active Jaycee Garcia VICTORINO Active LANTUS 100 UNIT/ML SC SOLN 20 SUBQ AT HS INSULIN GLARGINE 95183792340 Active Jaycee Jose POULTRY OFFAL ICER Active LAMICTAL 25 MG ORAL TABS 2 tabs po BID for convulsions LAMOTRIGINE 17403828354 Active Jaycee Garcia VICTORINO Active INVEGA 6 MG ORAL [id number] 1 po daily for Schizophrenia PALIPERIDONE 68887733109 Active Jaycee Garcia VICTORINO Active LASIX 20 MG TAB 1 tablet by mouth every morning for edema FUROSEMIDE 52947396311 Active Jayceehugo Garcia APRN Active BUSPIRONE HCL 10 MG TABS 1 tab by mouth BID BUSPIRONE HCL 68268626392 Active Jacyee Garcia VICTORINO Active NOVOLOG 100 UNIT/ML SC SOLN 10 UNITS BEFORE SUPPER INSULIN ASPART 32689967105 Active Jaycee Garcia VICTORINO Active NOVOLOG 100 UNIT/ML SC SOLN 10 UNITS BID BEFORE BREAKFAST AND LUNCH INSULIN ASPART 39150571360 Active Jaycee Garcia VICTORINO Active LAMICTAL 25 MG TABS 2 tabs by mouth twice a day LAMOTRIGINE 41079450287 Active Pelon Quach MD Active ADULT ASPIRIN EC LOW STRENGTH 81 MG TBEC Take one by mouth daily ASPIRIN 29233483416 No Longer Active Pelon Quach MD Active ASPIRIN 81 MG ORAL TABS 1 po qd ASPIRIN 41888864765 Active Pelon Quach MD Active ZOFRAN 4 MG TABS 1 po q6hr PRN Nausea ONDANSETRON HCL 31254936051 No Longer Active Pelon Quach MD Active TYLENOL 325 MG TAB 1-2 pills by mouth every 6 hours if needed for pain/fever ACETAMINOPHEN 63955322923 No Longer Active Pelon Quach MD Active INVEGA 6 MG ORAL [id number] 1 TAB ONCE DAILY PALIPERIDONE 02101619240 No Longer Active Carly Suggs Active TEGRETOL 200 MG TABS by mouth twice a day CARBAMAZEPINE 10665104779 Active Taty Alvarado MD PhD Active FLOMAX 0.4 MG CAPS 1 Daily TAMSULOSIN HCL 50551945037 Active Marianelachandrika Juarez Active DILANTIN 100 MG CAPS Take one by mouth daily PHENYTOIN SODIUM EXTENDED 27126603091 No Longer Active Marianelachandrika Juarez Active DEPAKOTE SPRINKLES 125 MG CPSP 4 capsules by mouth twice daily DIVALPROEX SODIUM 56856842183 No Longer Active Marianelachandrika Juarez Active LAMICTAL 200 MG ORAL TABS 1 BY MOUTH TWICE A DAY LAMOTRIGINE 40042252404 Active Marianelachandrika Juarez Active LAMICTAL 100 MG TABS by mouth twice a day LAMOTRIGINE 74327646015 No Longer Active Marianelachandrika Juarez Active LAMICTAL 150 MG TABS by mouth twice a day LAMOTRIGINE 45367047140 No Longer Active Marianelachandrika Juarez Active DILANTIN 100 MG CAPS Take three by mouth daily PHENYTOIN SODIUM EXTENDED 69942984892 No Longer Active Marianela Juarez Active SENOKOT 8.6 MG TABS take at bedtime SENNOSIDES 85593269826 Active Glenn Thornton MD Active LIPITOR 20 MG TABS take at bedtime ATORVASTATIN CALCIUM 38218758151 Active Glenn Thornton MD Active LISINOPRIL 2.5 MG TABS Take one by mouth daily LISINOPRIL 30095327601 Active Glenn Thornton MD Active TRENTAL 400 MG CR-TABS by mouth twice a day PENTOXIFYLLINE 90265900408 Active Glenn Thornton MD Active KLOR-CON 10 10 MEQ CR-TABS Take one by mouth daily POTASSIUM CHLORIDE 00004913417 Active Glenn Thornton MD Active DILANTIN 100 MG CAPS Take three by mouth daily DILANTIN 100 MG CAPS 408693 PHENYTOIN SODIUM EXTENDED Inactive LAMICTAL 150 MG TABS by mouth twice a day LAMICTAL 150 MG TABS 19831025 LAMOTRIGINE Inactive LAMICTAL 100 MG TABS by mouth twice a day LAMICTAL 100 MG TABS 19831024 LAMOTRIGINE Inactive DEPAKOTE SPRINKLES 125 MG CPSP 4 capsules by mouth twice daily DEPAKOTE SPRINKLES 125 MG CPSP 8895559 DIVALPROEX SODIUM Inactive DILANTIN 100 MG CAPS Take one by mouth daily DILANTIN 100 MG CAPS 491311 PHENYTOIN SODIUM EXTENDED Inactive INVEGA 6 MG ORAL [id number] 1 TAB ONCE DAILY INVEGA 6 MG ORAL [id number] PALIPERIDONE Inactive TYLENOL 325 MG TAB 1-2 pills by mouth every 6 hours if needed for pain/fever TYLENOL 325 MG TAB 316242 ACETAMINOPHEN Inactive ZOFRAN 4 MG TABS 1 po q6hr PRN Nausea ZOFRAN 4 MG TABS 410461 ONDANSETRON HCL Inactive ADULT ASPIRIN EC LOW STRENGTH 81 MG TBEC Take one by mouth daily ADULT ASPIRIN EC LOW STRENGTH 81 MG TBEC 503623 ASPIRIN Inactive FUROSEMIDE 40 MG TABS Take one by mouth daily FUROSEMIDE 40 MG TABS 114454 FUROSEMIDE Inactive IPRATROPIUM-ALBUTEROL 0.5-2.5 (3) MG/3ML SOLN 1 neb treatment four times daily , for cough IPRATROPIUM-ALBUTEROL 0.5-2.5 (3) MG/3ML SOLN 6244521 IPRATROPIUM-ALBUTEROL Inactive Advance Directives Directive Description Start Date DURABLE POWER OF BIO MEDICAL TECHNICIAN FOR HEALTHCARE PERMISSION TO SHARE ADVANCED [...] mg/dL Encounters Code Encounter Date Provider Facility CPT-09374 Level 3 Est. Patient 11:51:35 [employer] Rick Henson DO [facility] CPT-06485 Level 3 Est. Patient 12:13:33 [employer] Erik Baptiste MD [facility] CPT-95496 Level 3 Est. Patient 09:40:44 [employer] [place] Jaycee Garcia [facility] CPT-25564 Level 3 Est. Patient 09:36:32 [employer] Jaycee Garcia [facility] CPT-82790 Level 4 Est. Patient 16:57:02 [employer] [place] Pelon Quach MD [facility] CPT-45961 Level 4 Est. Patient 22:19:34 CDT Pelon Quach MD [facility] CPT-72896 Level 3 Est. Patient 00:34:41 CDT Pelno Quach MD [facility] CPT-88008 Level 4 Est. Patient 11:19:14 CDT Pelon Quach MD [facility] CPT-61560 Level 4 Est. Patient 16:43:30 [employer] [place] Pelon Quach MD [facility] CPT-20712 Level 4 Est. Patient 12:42:18 CDT Pelon Quach MD [facility] CPT-08451 Level 4 Est. Patient 11:52:20 CDT Pelon Quach MD [facility] CPT-87397 Level 4 Est. Patient 13:59:46 CDT Pelon Quach MD [facility] CPT-76458 Level 4 Est. Patient 15:10:48 CDT Pelon Quach MD [facility] CPT-83781 Level 4 Est. Patient 17:13:06 CDT Pelon Quach MD [facility] CPT-20349 Level 4 Est. Patient 18:47:47 CDT Pelon Quach MD [facility] CPT-62329 Level 3 Est. Patient 21:01:27 CDT Pelon Quach MD [facility] CPT-17827 Level 3 Est. Patient 14:07:03 CDT Taty Alvarado MD PhD [facility] CPT-58514 Level 3 New Patient 21:39:52 [employer] Pelon Quach MD [facility] CPT-17458 Level 3 Est. Patient 14:28:44 CDT Glenn Thornton MD [facility] CPT-85236 Level 3 Est. Patient 16:35:00 CDT Glenn Thornton MD [facility] CPT-46738 Level 4 New Patient 17:06:27 CDT Glenn Thornton MD [facility] Procedures Code Procedure Name Date Entry Date Standard Description CPT-21545 Chest 2V Frontal and Lat - XRAY USE ONLY 11:56:13 [employer] [place] CPT-39199 Cystoscopy 14:28:44 CDT CPT-70899 Bladder Scan 14:28:44 CDT CPT-05501 Indwelling Cath Change 17:06:27 CDT CPT-23288 Cystoscopy 17:06:27 CDT
--- OUTSIDE RECORDS SUMMARY | 2018-06-22 12:16 | XMS REPORT | Clinical Summary ---
Author Author Admin, ONESIMO Organization [facility] Address Unknown Phone Unavailable Allergies, Adverse Reactions, [...] emptying G E R D 530.81 Active Munathae Gallardo Esophageal reflux Diabetes-Type 2 250.00 Active [...] Provider Patient Instruction IPRATROPIUM-ALBUTEROL 0.5-2.5 (3) MG/3ML INH SOLN 1 neb treatment QID for cough Dx: J06.9 IPRATROPIUM-ALBUTEROL 65854157022 Active NICOLETTE Hitchcock Active IPRATROPIUM-ALBUTEROL 0.5-2.5 (3) MG/3ML SOLN 1 neb treatment four times daily , for cough IPRATROPIUM-ALBUTEROL 46709595963 No Longer Active Jaycee Garcia APRN Active TYLENOL 8 HOUR 650 MG ORAL CR-TABS Take 1 tab po up to 3 times daily as needed ACETAMINOPHEN 67771373947 Active Jacyee Garcia APRN Active FUROSEMIDE 40 MG TABS Take one by mouth daily FUROSEMIDE 56786169808 No Longer Active Jaycee Garcia APRN Active LANTUS 100 UNIT/ML SC SOLN 20 SUBQ AT HS INSULIN GLARGINE 30001994365 Active Jaycee Garcia APRN Active LAMICTAL 25 MG ORAL TABS 2 tabs po BID for convulsions LAMOTRIGINE 99502341771 Active Jaycee Garcia APRN Active INVEGA 6 MG ORAL [id number] 1 po daily for Schizophrenia PALIPERIDONE 71561029119 Active Jaycee Garcia APRN Active LASIX 20 MG TAB 1 tablet by mouth every morning for edema FUROSEMIDE 79199296319 Active Jaycee Garcia APRN Active BUSPIRONE HCL 10 MG TABS 1 tab by mouth BID BUSPIRONE HCL 74455069927 Active Jaycee Garcia APRN Active NOVOLOG 100 UNIT/ML SC SOLN 10 UNITS BEFORE SUPPER INSULIN ASPART 60535348246 Active Jaycee Garcia APRN Active NOVOLOG 100 UNIT/ML SC SOLN 10 UNITS BID BEFORE BREAKFAST AND LUNCH INSULIN ASPART 00035468264 Active Jaycee Garcia APRN Active LAMICTAL 25 MG TABS 2 tabs by mouth twice a day LAMOTRIGINE 53240133712 Active Pelon Quach MD Active ADULT ASPIRIN EC LOW STRENGTH 81 MG TBEC Take one by mouth daily ASPIRIN 11364084399 No Longer Active Pelon Quach MD Active ASPIRIN 81 MG ORAL TABS 1 po qd ASPIRIN 23147279766 Active Pelon Quach MD Active ZOFRAN 4 MG TABS 1 po q6hr PRN Nausea ONDANSETRON HCL 16789609904 No Longer Active Pelon Quach MD Active TYLENOL 325 MG TAB 1-2 pills by mouth every 6 hours if needed for pain/fever ACETAMINOPHEN 98399447916 No Longer Active Pelon Quach MD Active INVEGA 6 MG ORAL [id number] 1 TAB ONCE DAILY PALIPERIDONE 36603378467 No Longer Active Carly Suggs Active TEGRETOL 200 MG TABS by mouth twice a day CARBAMAZEPINE 16933631844 Active Taty Alvarado MD PhD Active FLOMAX 0.4 MG CAPS 1 Daily TAMSULOSIN HCL 85475801672 Active Marianela Juarez Active DILANTIN 100 MG CAPS Take one by mouth daily PHENYTOIN SODIUM EXTENDED 37874999415 No Longer Active Marianela Juaerz Active DEPAKOTE SPRINKLES 125 MG CPSP 4 capsules by mouth twice daily DIVALPROEX SODIUM 26786837521 No Longer Active Marianela Juarez Active LAMICTAL 200 MG ORAL TABS 1 BY MOUTH TWICE A DAY LAMOTRIGINE 26624428718 Active Marianelachandrika Shankarida Active LAMICTAL 100 MG TABS by mouth twice a day LAMOTRIGINE 21390166383 No Longer Active Marianela Juarez Active LAMICTAL 150 MG TABS by mouth twice a day LAMOTRIGINE 93045152308 No Longer Active Marianelachandrika Juarez Active DILANTIN 100 MG CAPS Take three by mouth daily PHENYTOIN SODIUM EXTENDED 77000761128 No Longer Active Marianela Juarez Active SENOKOT 8.6 MG TABS take at bedtime SENNOSIDES 36921142072 Active Glenn Thornton MD Active LIPITOR 20 MG TABS take at bedtime ATORVASTATIN CALCIUM 75700668269 Active Glenn Thornton MD Active LISINOPRIL 2.5 MG TABS Take one by mouth daily LISINOPRIL 48722495784 Active Glenn Thornton MD Active TRENTAL 400 MG CR-TABS by mouth twice a day PENTOXIFYLLINE 15498828424 Active Glenn Thornton MD Active KLOR-CON 10 10 MEQ CR-TABS Take one by mouth daily POTASSIUM CHLORIDE 73079436891 Active Glenn Thornton MD Active DILANTIN 100 MG CAPS Take three by mouth daily DILANTIN 100 MG CAPS 123047 PHENYTOIN SODIUM EXTENDED Inactive LAMICTAL 150 MG TABS by mouth twice a day LAMICTAL 150 MG TABS 19831025 LAMOTRIGINE Inactive LAMICTAL 100 MG TABS by mouth twice a day LAMICTAL 100 MG TABS 19831024 LAMOTRIGINE Inactive DEPAKOTE SPRINKLES 125 MG CPSP 4 capsules by mouth twice daily DEPAKOTE SPRINKLES 125 MG CPSP 3069322 DIVALPROEX SODIUM Inactive DILANTIN 100 MG CAPS Take one by mouth daily DILANTIN 100 MG CAPS 452063 PHENYTOIN SODIUM EXTENDED Inactive INVEGA 6 MG ORAL [id number] 1 TAB ONCE DAILY INVEGA 6 MG ORAL [id number] PALIPERIDONE Inactive TYLENOL 325 MG TAB 1-2 pills by mouth every 6 hours if needed for pain/fever TYLENOL 325 MG TAB 413523 ACETAMINOPHEN Inactive ZOFRAN 4 MG TABS 1 po q6hr PRN Nausea ZOFRAN 4 MG TABS 253243 ONDANSETRON HCL Inactive ADULT ASPIRIN EC LOW STRENGTH 81 MG TBEC Take one by mouth daily ADULT ASPIRIN EC LOW STRENGTH 81 MG TBEC 725254 ASPIRIN Inactive FUROSEMIDE 40 MG TABS Take one by mouth daily FUROSEMIDE 40 MG TABS 962044 FUROSEMIDE Inactive IPRATROPIUM-ALBUTEROL 0.5-2.5 (3) MG/3ML SOLN 1 neb treatment four times daily , for cough IPRATROPIUM-ALBUTEROL 0.5-2.5 (3) MG/3ML SOLN 1610680 IPRATROPIUM-ALBUTEROL Inactive Advance Directives Directive Description Start Date DURABLE POWER OF EDITOR INDEX FOR HEALTHCARE PERMISSION TO SHARE ADVANCED DIRECTIVE [...] mg/dL Encounters Code Encounter Date Provider Facility CPT-20471 Level 3 Est. Patient 09:40:44 COMBATANT DIVER QUALIFIED Jaycee Garcia [facility] CPT-90276 Level 3 Est. Patient 09:36:32 COMBATANT DIVER QUALIFIED Jaycee Garcia [facility] CPT-84997 Level 4 Est. Patient 16:57:02 COMBATANT DIVER QUALIFIED Pelon Quach MD [facility] CPT-71400 Level 4 Est. Patient 22:19:34 CDT Pelon Quach MD [facility] CPT-02104 Level 3 Est. Patient 00:34:41 CDT Pelon Quach MD [facility] CPT-40563 Level 4 Est. Patient 11:19:14 CDT Pelon Quach MD [facility] CPT-70796 Level 4 Est. Patient 16:43:30 COMBATANT DIVER QUALIFIED Pelon Quach MD [facility] CPT-75548 Level 4 Est. Patient 12:42:18 CDT Pelon Quach MD [facility] CPT-38477 Level 4 Est. Patient 11:52:20 CDT Pelon Quach MD [facility] CPT-58537 Level 4 Est. Patient 13:59:46 CDT Pelon Quach MD [facility] CPT-40283 Level 4 Est. Patient 15:10:48 CDT Pelon Quach MD [facility] CPT-87917 Level 4 Est. Patient 17:13:06 CDT Pelon Quach MD [facility] CPT-26328 Level 4 Est. Patient 18:47:47 CDT Pelon Quach MD [facility] CPT-48141 Level 3 Est. Patient 21:01:27 CDT Pelon Quach MD [facility] CPT-84746 Level 3 Est. Patient 14:07:03 CDT Taty Alvarado MD PhD [facility] CPT-18144 Level 3 New Patient 21:39:52 COMBATANT DIVER QUALIFIED Pelon Quach MD [facility] CPT-36931 Level 3 Est. Patient 14:28:44 CDT Glenn Thornton MD [facility] CPT-15247 Level 3 Est. Patient 16:35:00 CDT Glenn Thornton MD [facility] CPT-85131 Level 4 New Patient 17:06:27 CDT Glenn [facility] MD [facility] Procedures Code Procedure Name Date Entry Date Standard Description CPT-12024 Cystoscopy 14:28:44 CDT CPT-65715 Bladder Scan 14:28:44 CDT CPT-86652 Indwelling Cath Change 17:06:27 CDT CPT-79868 Cystoscopy 17:06:27 CDT
--- OUTSIDE RECORDS SUMMARY | 2018-06-22 12:16 | XMS REPORT | Clinical Summary ---
Author Author Admin, ONESIMO Organization [facility] [employer] Address Unknown Phone Unavailable Allergies, Adverse Reactions, [...] and insulin admin Dx: E11.9 ALCOHOL SWABS 77398622066 Active Jaycee Torrez APRN Active HUMALOG KWIKPEN 100 UNIT/ML SUBCUTANEOUS SOLUTION PEN-INJECTOR inject 10 units subcutaneously before meals also sliding scale INSULIN LISPRO 23853730178 Active Jaycee Torrez APRN Active NOVOLOG 100 UNIT/ML SUBCUTANEOUS SOLUTION 10 UNITS BID BEFORE BREAKFAST AND LUNCH INSULIN ASPART 05509910557 No Longer Active NICOLETTE Hitchcock Active NOVOLOG 100 UNIT/ML SUBCUTANEOUS SOLUTION 10 UNITS BEFORE SUPPER INSULIN ASPART 96156030074 No Longer Active NICOLETTE Hitchcock Active INVEGA 6 MG ORAL TABLET EXTENDED RELEASE 24 HOUR 1 po daily for schizophrenia PALIPERIDONE 73329592981 Active Pelon Quach MD Active LAMICTAL 25 MG ORAL TABLET 2 tabs by mouth twice a day LAMOTRIGINE 39449274948 No Longer Active Pelon Quach MD Active BACTROBAN 2 % EXTERNAL OINTMENT Apply to affected area BID 06/28 MUPIROCIN 97719156219 No Longer Active Pelon Quach MD Active BANOPHEN 25 MG ORAL TABLET 1 po every 6 hours PRN allergic reaction DIPHENHYDRAMINE HCL 91614629433 Active Pelon Quach MD Active INVEGA 6 MG ORAL TABLET EXTENDED RELEASE 24 HOUR 1 po daily for Schizophrenia PALIPERIDONE 63673880982 No Longer Active Pelon Quach MD Active TYLENOL 8 HOUR 650 MG ORAL TABLET EXTENDED RELEASE Take 1 tab po up to 3 times daily as needed ACETAMINOPHEN 51942743683 No Longer Active Pelon Quach MD Active IPRATROPIUM-ALBUTEROL 0.5-2.5 (3) MG/3ML INHALATION SOLUTION 1 neb treatment QID for cough Dx: J06.9 IPRATROPIUM-ALBUTEROL 69792199289 No Longer Active Pelon Quach MD Active BACTRIM DS 800-160 MG ORAL TABLET 1 tab by mouth twice daily 2016 TRIMETHOPRIM-SULFAMETHOXAZOLE 12032956394 No Longer Active Pelon Quach MD Active BACTRIM DS 800-160 MG ORAL TABLET 1 twice a day SULFAMETHOXAZOLE-TRIMETHOPRIM 18120516251 No Longer Active Pelon Quach MD Active IPRATROPIUM-ALBUTEROL 0.5-2.5 (3) MG/3ML INHALATION SOLUTION 1 neb treatment four times daily, for cough IPRATROPIUM-ALBUTEROL 92356112427 No Longer Active Jaycee Torrez APRN Active FUROSEMIDE 40 MG ORAL TABLET Take one by mouth daily FUROSEMIDE 05118678584 No Longer Active Jaycee Torrez APRN Active LANTUS 100 UNIT/ML SUBCUTANEOUS SOLUTION 20 SUBQ AT HS INSULIN GLARGINE 54117847748 Active Jaycee Torrez APRN Active LAMICTAL 25 MG ORAL TABLET 2 tabs po BID for convulsions LAMOTRIGINE 91266018617 Active Jaycee Torrez APRN Active LASIX 20 MG ORAL TABLET 1 tablet by mouth every morning for edema FUROSEMIDE 41505888479 Active Jaycee Torrez APRN Active BUSPIRONE HCL 10 MG ORAL TABLET 1 tab by mouth BID BUSPIRONE HCL 10932079074 Active Jaycee Torrez APRN Active ADULT ASPIRIN EC LOW STRENGTH 81 MG ORAL TABLET DELAYED RELEASE Take one by mouth daily ASPIRIN 40713273059 No Longer Active Pelon Quach MD Active ASPIRIN 81 MG ORAL TABLET 1 po qd ASPIRIN 01407226560 Active Pelon Quach MD Active ZOFRAN 4 MG ORAL TABLET 1 po q6hr PRN Nausea ONDANSETRON HCL 81577211186 No Longer Active Pelon Quach MD Active TYLENOL 325 MG ORAL TABLET 1-2 pills by mouth every 6 hours if needed for pain /fever ACETAMINOPHEN 01147593054 No Longer Active Pelon Quach MD Active INVEGA 6 MG ORAL TABLET EXTENDED RELEASE 24 HOUR 1 TAB ONCE DAILY PALIPERIDONE 94509004423 No Longer Active Carly Suggs Active TEGRETOL 200 MG ORAL TABLET by mouth twice a day CARBAMAZEPINE 87978622743 Active Taty Alvarado MD PhD Active FLOMAX 0.4 MG ORAL CAPSULE 1 Daily TAMSULOSIN HCL 03351534764 Active Marianela Juarez Active DILANTIN 100 MG ORAL CAPSULE Take one by mouth daily PHENYTOIN SODIUM EXTENDED 24604442146 No Longer Active Marianelachandrika Juarez Active DEPAKOTE SPRINKLES 125 MG ORAL CAPSULE DELAYED RELEASE SPRINKLE 4 capsules by mouth twice daily DIVALPROEX SODIUM 49523244306 No Longer Active Marianela Juarez Active LAMICTAL 200 MG ORAL TABLET 1 BY MOUTH TWICE A DAY LAMOTRIGINE 06967487349 Active Marianelachandrika Juarez Active LAMICTAL 100 MG ORAL TABLET by mouth twice a day LAMOTRIGINE 23615619033 No Longer Active Marianelachandrika Juarez Active LAMICTAL 150 MG ORAL TABLET by mouth twice a day LAMOTRIGINE 75260679942 No Longer Active Marianela Juarez Active DILANTIN 100 MG ORAL CAPSULE Take three by mouth daily PHENYTOIN SODIUM EXTENDED 33265003072 No Longer Active Marianela Juarez Active SENOKOT 8.6 MG ORAL TABLET take at bedtime SENNOSIDES 08216719118 Active Pelon Quach MD Active LIPITOR 20 MG ORAL TABLET take at bedtime ATORVASTATIN CALCIUM 11174699856 Active Glenn Thornton MD Active LISINOPRIL 2.5 MG ORAL TABLET Take one by mouth daily LISINOPRIL 26665741653 Active Glenn Thornton MD Active TRENTAL 400 MG CR-TABS by mouth twice a day PENTOXIFYLLINE 34849751019 Active Glenn Thornton MD Active KLOR-CON 10 10 MEQ ORAL TABLET EXTENDED RELEASE Take one by mouth daily POTASSIUM CHLORIDE 35858733782 Active Glenn Thornton MD Active DILANTIN 100 MG ORAL CAPSULE Take three by mouth daily DILANTIN 100 MG ORAL CAPSULE 890720 PHENYTOIN SODIUM EXTENDED Inactive LAMICTAL 150 MG ORAL TABLET by mouth twice a day LAMICTAL 150 MG ORAL TABLET 932672 LAMOTRIGINE Inactive LAMICTAL 100 MG ORAL TABLET by mouth twice a day LAMICTAL 100 MG ORAL TABLET 210218 LAMOTRIGINE Inactive DEPAKOTE SPRINKLES 125 MG ORAL CAPSULE DELAYED RELEASE SPRINKLE 4 capsules by mouth twice daily DEPAKOTE SPRINKLES 125 MG ORAL CAPSULE DELAYED RELEASE SPRINKLE 3730729 DIVALPROEX SODIUM Inactive DILANTIN 100 MG ORAL CAPSULE Take one by mouth daily DILANTIN 100 MG ORAL CAPSULE 276797 PHENYTOIN SODIUM EXTENDED Inactive INVEGA 6 MG ORAL TABLET EXTENDED RELEASE 24 HOUR 1 TAB ONCE DAILY INVEGA 6 MG ORAL TABLET EXTENDED RELEASE 24 HOUR PALIPERIDONE Inactive TYLENOL 325 MG ORAL TABLET 1-2 pills by mouth every 6 hours if needed for pain /fever TYLENOL 325 MG ORAL TABLET 819758 ACETAMINOPHEN Inactive ZOFRAN 4 MG ORAL TABLET 1 po q6hr PRN Nausea ZOFRAN 4 MG ORAL TABLET 078699 ONDANSETRON HCL Inactive ADULT ASPIRIN EC LOW STRENGTH 81 MG ORAL TABLET DELAYED RELEASE Take one by mouth daily ADULT ASPIRIN EC LOW STRENGTH 81 MG ORAL TABLET DELAYED RELEASE 824855 ASPIRIN Inactive FUROSEMIDE 40 MG ORAL TABLET Take one by mouth daily FUROSEMIDE 40 MG ORAL TABLET 034934 FUROSEMIDE Inactive BACTRIM DS 800-160 MG ORAL TABLET 1 twice a day BACTRIM DS 800-160 MG ORAL TABLET 480375 SULFAMETHOXAZOLE-TRIMETHOPRIM Inactive IPRATROPIUM-ALBUTEROL 0.5-2.5 (3) MG/3ML INHALATION SOLUTION 1 neb treatment QID for cough Dx: J06.9 IPRATROPIUM-ALBUTEROL 0.5-2.5 ( 3) MG/3ML INHALATION SOLUTION 9900908 IPRATROPIUM-ALBUTEROL Inactive TYLENOL 8 HOUR 650 MG [...] BID 06/28 BACTROBAN 2 % EXTERNAL OINTMENT 693181 MUPIROCIN Inactive LAMICTAL 25 MG ORAL TABLET 2 tabs by mouth twice a day LAMICTAL 25 MG ORAL TABLET 474289 LAMOTRIGINE Inactive NOVOLOG 100 UNIT/ML SUBCUTANEOUS SOLUTION 10 UNITS BEFORE SUPPER NOVOLOG 100 UNIT/ML SUBCUTANEOUS SOLUTION INSULIN ASPART Inactive NOVOLOG 100 UNIT/ML SUBCUTANEOUS SOLUTION 10 UNITS BID BEFORE BREAKFAST AND LUNCH NOVOLOG 100 UNIT/ML SUBCUTANEOUS SOLUTION INSULIN ASPART Inactive IPRATROPIUM-ALBUTEROL 0.5-2.5 (3) MG/3ML INHALATION SOLUTION 1 neb treatment four times daily, for cough IPRATROPIUM-ALBUTEROL 0.5- 2.5 (3) MG/3ML INHALATION SOLUTION 5024495 IPRATROPIUM-ALBUTEROL Inactive BACTRIM DS 800-160 MG ORAL TABLET 1 tab by mouth twice daily 2016 BACTRIM DS 800-160 MG ORAL TABLET 850683 TRIMETHOPRIM- SULFAMETHOXAZOLE Inactive Advance Directives Directive Description Start Date DURABLE POWER OF CAR SPOTTER FOR HEALTHCARE PERMISSION TO SHARE ADVANCED DIRECTIVE [...] Panel - Chemistry sodium, serum 127 mmol/L 355-654 8784/07/28 potassium, serum 5.3 mmol/L 3.5-5.2 chloride, serum 92 mmol/L 98-107 carbon dioxide, venous blood 32.4 mmol/L 21.0-32.0 blood glucose 182 mg/dL 65-110 calcium, serum 9.4 mg/dL 8.5-10.1 urea nitrogen, blood 14 mg/dL 7-18 creatinine, serum 0.94 mg/dL 0.60-1.30 Lab Report: CBC, Comp. Metabolic Panel - Chemistry sodium, serum 129 mmol/L 733-246 6597/07/12 carbon dioxide, venous blood 27.8 mmol/L 21.0-32.0 [...] mg/dL Encounters Code Encounter Date Provider Facility CPT-82503 Level 4 Est. Patient 14:46:38 CDT Pelon Quach MD [facility] CPT-03345 Level 4 Est. Patient 08:43:11 CDT Pelon Quach MD [facility] CPT-71261 Level 4 Est. Patient 14:27:30 CDT Pelon Quach MD [facility] CPT-92903 Level 3 Est. Patient 10:32:17 CDT Jaycee Torrez [facility] CPT-32430 Level 3 Est. Patient 10:15:07 CDT Pelon Quach MD [facility] CPT-94232 Level 4 Est. Patient 09:30:54 CDT Pelon Quach MD [facility] CPT-78261 Level 4 Est. Patient 14:34:25 CDT Pelon Quach MD [facility] CPT-75091 Level 3 Est. Patient 11:51:35 AVIONICS MECHANIC Rick Henson DO [facility] CPT-16116 Level 3 Est. Patient 12:13:33 AVIONICS MECHANIC Erik Baptiste MD [facility] CPT-01149 Level 3 Est. Patient 09:40:44 AVIONICS MECHANIC Jaycee Torrez [facility] CPT-67193 Level 3 Est. Patient 09:36:32 AVIONICS MECHANIC Jaycee Torrez [facility] CPT-65368 Level 4 Est. Patient 16:57:02 AVIONICS MECHANIC Pelon Quach MD [facility]-37756 Level 4 Est. Patient 22:19:34 CDT Pelon Quach MD [facility]-56930 Level 3 Est. Patient 00:34:41 CDT Pelon Quach MD [facility]-39368 Level 4 Est. Patient 11:19:14 CDT Pelon Quach MD [facility]-66649 Level 4 Est. Patient 16:43:30 AVIONICS MECHANIC Pelon Quach MD [facility]-61500 Level 4 Est. Patient 12:42:18 CDT Pelon Quach MD [facility]-69857 Level 4 Est. Patient 11:52:20 CDT Peoln Quach MD [facility]-43663 Level 4 Est. Patient 13:59:46 CDT Pelon Quach MD [facility]-76043 Level 4 Est. Patient 15:10:48 CDT Pelon Quach MD [facility]-11393 Level 4 Est. Patient 17:13:06 CDT Pelon Quach MD [facility]-08134 Level 4 Est. Patient 18:47:47 CDT Pelon Quach MD [facility]-59398 Level 3 Est. Patient 21:01:27 CDT Pelon Quach MD [facility] CPT-47792 Level 3 Est. Patient 14:07:03 CDT Taty Alvarado MD PhD [facility] CPT-00761 Level 3 New Patient 21:39:52 AVIONICS MECHANIC Pelon Quach MD [facility]-61009 Level 3 Est. Patient 14:28:44 CDT Glenn Thornton MD [facility]-24047 Level 3 Est. Patient 16:35:00 CDT Glenn Thornton MD [facility] CPT-56469 Level 4 New Patient 17:06:27 CDT Glenn Thornton MD [facility] Procedures Code Procedure Name Date Entry Date Standard Description CPT-G0438 Initial Annual Wellness Exam 09:30:54 CDT CPT-39909 Prevnar 13 Intramuscular Suspension 14:34:25 CDT 12/27 CPT-58933 Chest 2V Frontal and Lat - XRAY USE ONLY 11:56:13 AVIONICS MECHANIC CPT-05559 Cystoscopy 14:28:44 CDT CPT-22931 Bladder Scan 14:28:44 CDT CPT-38107 Indwelling Cath Change 17:06:27 CDT CPT-54231 Cystoscopy 17:06:27 CDT
--- OUTSIDE RECORDS SUMMARY | 2018-06-22 12:16 | XMS REPORT | Clinical Summary ---
Author Author Admin, E Organization [facility] [employer] Address Unknown Phone Unavailable Allergies, Adverse Reactions, Alerts Allergy Name Reaction Description Start Date Severity Status Provider No Known Allergies Taty Alvarado MD PhD Conditions or Problems Problem Name Problem Code [...] Generic Name NDC Status Provider Patient Instruction TEGRETOL 200 MG TABS by mouth twice a day CARBAMAZEPINE 79061166078 Active Taty Alvarado MD PhD Active NOVOLOG 100 UNIT/ML SC SOLN 7 UNITS BEFORE SUPPER INSULIN ASPART 74124640920 Active Marianela Juarez Active NOVOLOG 100 UNIT/ML SC SOLN 7 UNITS BID BEFORE BREAKFAST AND LUNCH INSULIN ASPART 69736803550 Active Marianela Juarez Active FLOMAX 0.4 MG CAPS 1 Daily TAMSULOSIN HCL 09392002622 Active Marianela Juarez Active INVEGA 6 MG ORAL [id number] 1 TAB ONCE DAILY PALIPERIDONE 70353441326 Active Marianela Juarez Active DILANTIN 100 MG CAPS Take one by mouth daily PHENYTOIN SODIUM EXTENDED 57056406515 No Longer Active Marianela Juarez Active DEPAKOTE SPRINKLES 125 MG CPSP 4 capsules by mouth twice daily DIVALPROEX SODIUM 64017640551 No Longer Active Marianela Juarez Active LAMICTAL 200 MG ORAL TABS 1 BY MOUTH TWICE A DAY LAMOTRIGINE 82744675965 Active Marianela Juarez Active LAMICTAL 100 MG TABS by mouth twice a day LAMOTRIGINE 29817469304 No Longer Active Marianela Juarez Active LAMICTAL 150 MG TABS by mouth twice a day LAMOTRIGINE 42126572328 No Longer Active Marianela Juarez Active DILANTIN 100 MG CAPS Take three by mouth daily PHENYTOIN SODIUM EXTENDED 23634321061 No Longer Active Marianela Juarez Active SENOKOT 8.6 MG TABS take at bedtime SENNOSIDES 15788984439 Active Glenn Thornton MD Active LIPITOR 20 MG TABS take at bedtime ATORVASTATIN CALCIUM 31928239804 Active Glenn Thornton MD Active LISINOPRIL 2.5 MG TABS Take one by mouth daily LISINOPRIL 81759061582 Active Glenn Thornton MD Active TRENTAL 400 MG CR-TABS by mouth twice a day PENTOXIFYLLINE 96042168362 Active lGenn Thornton MD Active LAMICTAL 25 MG TABS by mouth twice a day LAMOTRIGINE 03966067112 Active Glenn Thornton MD Active BUSPIRONE HCL 10 MG TABS by mouth twice a day BUSPIRONE HCL 42012888550 Active Glenn Thornton MD Active FUROSEMIDE 40 MG TABS Take one by mouth daily FUROSEMIDE 60944052407 Active Glenn Thornton MD Active KLOR-CON 10 10 MEQ CR-TABS Take one by mouth daily POTASSIUM CHLORIDE 51779635101 Active Glenn Thornton MD Active ADULT ASPIRIN EC LOW STRENGTH 81 MG TBEC Take one by mouth daily ASPIRIN 21661630937 Active Glenn Thornton MD Active DILANTIN 100 MG CAPS Take three by mouth daily DILANTIN 100 MG CAPS 444730 PHENYTOIN SODIUM EXTENDED Inactive LAMICTAL 150 MG TABS by mouth twice a day LAMICTAL 150 MG TABS 19831025 LAMOTRIGINE Inactive LAMICTAL 100 MG TABS by mouth twice a day LAMICTAL 100 MG TABS 19831024 LAMOTRIGINE Inactive DEPAKOTE SPRINKLES 125 MG CPSP 4 capsules by mouth twice daily DEPAKOTE SPRINKLES 125 MG CPSP 8730654 DIVALPROEX SODIUM Inactive DILANTIN 100 MG CAPS Take one by mouth daily DILANTIN 100 MG CAPS 055142 PHENYTOIN SODIUM EXTENDED Inactive Advance Directives Directive Description Start Date DURABLE POWER OF MACHINE HEEL SEAT FITTER FOR HEALTHCARE PERMISSION TO SHARE Vital Signs Date Name Value Unit Range Description blood pressure, diastolic - 8462-4 67 mm[Hg] [...] of total hemoglobin 6.6 % Office Visit: GET EST - Chemistry cholesterol, target level 200 mg/dL triglyceride, target level 200 mg/dL HDL cholesterol, serum, target level 35 mg/dL LDL target level 100 mg/dL home glucose monitor utilized Yes Encounters Code Encounter Date Provider Facility CPT-55844 Level 3 Est. Patient 21:01:27 CDT Pelon Quach MD [facility] CPT-68290 Level 3 Est. 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 Patient 14:28:44 CDT Glenn Thornton MD [facility] CPT-28445 Level 3 Est. Patient 16:35:00 CDT Glenn Thornton MD [facility] CPT-32564 Level 4 New Patient 17:06:27 CDT Glenn Thornton MD [facility] Procedures Code Procedure Name Date Entry Date Standard Description CPT-68690 Cystoscopy 14:28:44 CDT CPT-01208 Bladder Scan 14:28:44 CDT CPT-847[address] Ind[address] Change 17:06:27 CDT CPT-60406 Cystoscopy 17:06:27 CDT
[2018-06-22] MEDS ORDERED: MUPIROCIN 2% OINT 22 GM (BACTROBAN) TUBE ONE (12:17)
--- OUTSIDE RECORDS SUMMARY | 2018-06-22 12:17 | XMS REPORT | Clinical Summary ---
Author Author Admin, ONESIMO Organization [facility] [employer] Address Unknown Phone Unavailable Allergies, Adverse Reactions, [...] tabs by mouth twice a day LAMOTRIGINE 92367282701 Active Pelon Quach MD Active ADULT ASPIRIN EC LOW STRENGTH 81 MG TBEC Take one by mouth daily ASPIRIN 41663178942 No Longer Active Pelon Quach MD Active TYLENOL 8 HOUR 650 MG ORAL CR-TABS Take 1 tab po QID x 7 days ACETAMINOPHEN 76293948313 Active Fanta Rodas MA Active INVEGA [id number] 3MG BY MOUTH ONE TIME DAILY PALIPERIDONE [id number] 07203490045 Active Pelon Quach MD Active ASPIRIN 81 MG ORAL TABS 1 po qd ASPIRIN 12104194556 Active Pelon Quach MD Active ZOFRAN 4 MG TABS 1 po q6hr PRN Nausea ONDANSETRON HCL 28702608909 No Longer Active Pelon Quach MD Active TYLENOL 325 MG TAB 1-2 pills by mouth every 6 hours if needed for pain/fever ACETAMINOPHEN 66828549497 No Longer Active Pelon Quach MD Active INVEGA 6 MG ORAL [id number] 1 TAB ONCE DAILY PALIPERIDONE 11160974622 No Longer Active Carly Suggs Active LANTUS 100 UNIT/ML SC SOLN 18 SUBQ AT HS INSULIN GLARGINE 04628672316 Active Pelon Quach MD Active TEGRETOL 200 MG TABS by mouth twice a day CARBAMAZEPINE 22694169969 Active Taty Alvarado MD PhD Active NOVOLOG 100 UNIT/ML SC SOLN 7 UNITS BEFORE SUPPER INSULIN ASPART 43744309378 Active Marianela Juarez Active NOVOLOG 100 UNIT/ML SC SOLN 7 UNITS BID BEFORE BREAKFAST AND LUNCH INSULIN ASPART 58446293515 Active Marianela Juarez Active FLOMAX 0.4 MG CAPS 1 Daily TAMSULOSIN HCL 32976764845 Active Marianela Juarez Active DILANTIN 100 MG CAPS Take one by mouth daily PHENYTOIN SODIUM EXTENDED 60650454194 No Longer Active Marianela Juarez Active DEPAKOTE SPRINKLES 125 MG CPSP 4 capsules by mouth twice daily DIVALPROEX SODIUM 29354228970 No Longer Active Marianela Juarez Active LAMICTAL 200 MG ORAL TABS 1 BY MOUTH TWICE A DAY LAMOTRIGINE 77342174846 Active Marianela Juarez Active LAMICTAL 100 MG TABS by mouth twice a day LAMOTRIGINE 10366307549 No Longer Active Marianela Juarez Active LAMICTAL 150 MG TABS by mouth twice a day LAMOTRIGINE 53574606209 No Longer Active Marianela Juarez Active DILANTIN 100 MG CAPS Take three by mouth daily PHENYTOIN SODIUM EXTENDED 16280720175 No Longer Active Marianela Juarez Active SENOKOT 8.6 MG TABS take at bedtime SENNOSIDES 28467113795 Active Glenn Thornton MD Active LIPITOR 20 MG TABS take at bedtime ATORVASTATIN CALCIUM 57484744874 Active Glenn Thornton MD Active LISINOPRIL 2.5 MG TABS Take one by mouth daily LISINOPRIL 66160300552 Active Glenn Thornton MD Active TRENTAL 400 MG CR-TABS by mouth twice a day PENTOXIFYLLINE 40944611884 Active Glenn Thornton MD Active BUSPIRONE HCL 10 MG TABS by mouth twice a day BUSPIRONE HCL 50260631574 Active Glenn Thornton MD Active FUROSEMIDE 40 MG TABS Take one by mouth daily FUROSEMIDE 59747047540 Active Glenn Thornton MD Active KLOR-CON 10 10 MEQ CR-TABS Take one by mouth daily POTASSIUM CHLORIDE 23862889439 Active Glenn Thornton MD Active DILANTIN 100 MG CAPS Take three by mouth daily DILANTIN 100 MG CAPS 390517 PHENYTOIN SODIUM EXTENDED Inactive LAMICTAL 150 MG TABS by mouth twice a day LAMICTAL 150 MG TABS 19831025 LAMOTRIGINE Inactive LAMICTAL 100 MG TABS by mouth twice a day LAMICTAL 100 MG TABS 19831024 LAMOTRIGINE Inactive DEPAKOTE SPRINKLES 125 MG CPSP 4 capsules by mouth twice daily DEPAKOTE SPRINKLES 125 MG CPSP 4744926 DIVALPROEX SODIUM Inactive DILANTIN 100 MG CAPS Take one by mouth daily DILANTIN 100 MG CAPS 736375 PHENYTOIN SODIUM EXTENDED Inactive INVEGA 6 MG ORAL [id number] 1 TAB ONCE DAILY INVEGA 6 MG ORAL [id number] PALIPERIDONE Inactive TYLENOL 325 MG TAB 1-2 pills by mouth every 6 hours if needed for pain/fever TYLENOL 325 MG TAB 370247 ACETAMINOPHEN Inactive ZOFRAN 4 MG TABS 1 po q6hr PRN Nausea ZOFRAN 4 MG TABS 501883 ONDANSETRON HCL Inactive ADULT ASPIRIN EC LOW STRENGTH 81 MG TBEC Take one by mouth daily ADULT ASPIRIN EC LOW STRENGTH 81 MG TBEC 541108 ASPIRIN Inactive Advance Directives Directive Description Start Date DURABLE POWER OF DNA SEQUENCING ASSOCIATE FOR HEALTHCARE PERMISSION TO SHARE ADVANCED DIRECTIVE [...] mg/dL Encounters Code Encounter Date Provider Facility CPT-52787 Level 4 Est. 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 Patient 22:19:34 CDT Pelon Quach MD [facility] CPT-42567 Level 3 Est. Patient 00:34:41 CDT Pelon Quach MD [facility] CPT-56215 Level 4 Est. Patient 11:19:14 CDT Pelon Quach MD [facility] CPT-38771 Level 4 Est. Patient 16:43:30 WEBSITE DEVELOPER Pelon Quach MD [facility] CPT-78995 Level 4 Est. Patient 12:42:18 CDT Pelon Quach MD [facility] CPT-52785 Level 4 Est. Patient 11:52:20 CDT Pelon Quach MD [facility] CPT-27426 Level 4 Est. Patient 13:59:46 CDT Pelon Quach MD [facility] CPT-26765 Level 4 Est. Patient 15:10:48 CDT Pelon Quach MD [facility] CPT-95207 Level 4 Est. Patient 17:13:06 CDT Pelon Quach MD [facility] CPT-63625 Level 4 Est. Patient 18:47:47 CDT Pelon Quach MD [facility] CPT-04022 Level 3 Est. Patient 21:01:27 CDT Pelon Quach MD [facility] CPT-58851 Level 3 Est. Patient 14:07:03 CDT Taty Alvarado MD PhD [facility] CPT-43776 Level 3 New Patient 21:39:52 WEBSITE DEVELOPER Pelon Quach MD [facility] CPT-54246 Level 3 Est. Patient 14:28:44 CDT Glenn Thornton MD [facility] CPT-45679 Level 3 Est. Patient 16:35:00 CDT Glenn Thornton MD [facility] CPT-70583 Level 4 New Patient 17:06:27 CDT Glenn Thornton MD [facility] Procedures Code Procedure Name Date Entry Date Standard Description CPT-05184 Cystoscopy 14:28:44 CDT CPT-95378 Bladder Scan 14:28:44 CDT CPT-87790 Indwelling Cath Change 17:06:27 CDT CPT-76329 Cystoscopy 17:06:27 CDT
--- OUTSIDE RECORDS SUMMARY | 2018-06-22 12:18 | XMS REPORT | Clinical Summary ---
Author Author Admin, ONESIMO Organization [facility] [employer] [place] Address Unknown Phone Unavailable Allergies, Adverse Reactions, [...] Provider Patient Instruction INVEGA 6 MG ORAL [id number] 1 po daily for Schizophrenia PALIPERIDONE 40354799223 No Longer Active Pelon Quach MD Active TYLENOL 8 HOUR 650 MG ORAL CR-TABS Take 1 tab po up to 3 times daily as needed ACETAMINOPHEN 58361647752 No Longer Active Pelon Quach MD Active IPRATROPIUM-ALBUTEROL 0.5-2.5 (3) MG/3ML INH SOLN 1 neb treatment QID for cough Dx: J06.9 IPRATROPIUM-ALBUTEROL 32346253653 No Longer Active Pelon Quach MD Active BACTRIM DS 800-160 MG TAB 1 tab by mouth twice daily TRIMETHOPRIM-SULFAMETHOXAZOLE 63285670150 No Longer Active Pelon Quach MD Active BACTROBAN 2 % OINTMENT Apply to affected area BID MUPIROCIN 68213503267 Active Jaycee Garcia APRN Active BACTRIM DS 800-160 MG TABS 1 twice a day SULFAMETHOXAZOLE-TRIMETHOPRIM 75760069569 No Longer Active Pelon Quach MD Active IPRATROPIUM-ALBUTEROL 0.5-2.5 (3) MG/3ML SOLN 1 neb treatment four times daily , for cough IPRATROPIUM-ALBUTEROL 55980598863 No Longer Active Jaycee Garcia APRN Active FUROSEMIDE 40 MG TABS Take one by mouth daily FUROSEMIDE 61936510574 No Longer Active Jaycee Garcia APRN Active LANTUS 100 UNIT/ML SC SOLN 20 SUBQ AT HS INSULIN GLARGINE 54357756667 Active Jaycee Garcia APRN Active LAMICTAL 25 MG ORAL TABS 2 tabs po BID for convulsions LAMOTRIGINE 69652356439 Active Jaycee Garcia APRN Active LASIX 20 MG TAB 1 tablet by mouth every morning for edema FUROSEMIDE 76592207890 Active Jaycee Garcia APRN Active BUSPIRONE HCL 10 MG TABS 1 tab by mouth BID BUSPIRONE HCL 77564650674 Active Jaycee Jose INFORMATION TECHNOLOGY TEACHER Active NOVOLOG 100 UNIT/ML SC SOLN 10 UNITS BEFORE SUPPER INSULIN ASPART 81299091415 Active Jaycee Garcia INFORMATION TECHNOLOGY TEACHER Active NOVOLOG 100 UNIT/ML SC SOLN 10 UNITS BID BEFORE BREAKFAST AND LUNCH INSULIN ASPART 74916588453 Active Jaycee Garcia INFORMATION TECHNOLOGY TEACHER Active LAMICTAL 25 MG TABS 2 tabs by mouth twice a day LAMOTRIGINE 81254920493 Active Pelon Quach MD Active ADULT ASPIRIN EC LOW STRENGTH 81 MG TBEC Take one by mouth daily ASPIRIN 39351271091 No Longer Active Pelon Quach MD Active ASPIRIN 81 MG ORAL TABS 1 po qd ASPIRIN 20851926201 Active Pelon Quach MD Active ZOFRAN 4 MG TABS 1 po q6hr PRN Nausea ONDANSETRON HCL 15802908725 No Longer Active Pelon Quach MD Active TYLENOL 325 MG TAB 1-2 pills by mouth every 6 hours if needed for pain/fever ACETAMINOPHEN 88369624353 No Longer Active Pelon Quach MD Active INVEGA 6 MG ORAL [id number] 1 TAB ONCE DAILY PALIPERIDONE 01578505548 No Longer Active Carly Suggs Active TEGRETOL 200 MG TABS by mouth twice a day CARBAMAZEPINE 42235257764 Active Taty Alvarado MD PhD Active FLOMAX 0.4 MG CAPS 1 Daily TAMSULOSIN HCL 79278901313 Active Marianelachandrika Juarez Active DILANTIN 100 MG CAPS Take one by mouth daily PHENYTOIN SODIUM EXTENDED 19976352986 No Longer Active Marianelachandrika Juarez Active DEPAKOTE SPRINKLES 125 MG CPSP 4 capsules by mouth twice daily DIVALPROEX SODIUM 91380461729 No Longer Active Marianelachandrika Juarez Active LAMICTAL 200 MG ORAL TABS 1 BY MOUTH TWICE A DAY LAMOTRIGINE 81037423681 Active Marianelachandrika Juarez Active LAMICTAL 100 MG TABS by mouth twice a day LAMOTRIGINE 62055732997 No Longer Active Marianelachandrika Juarez Active LAMICTAL 150 MG TABS by mouth twice a day LAMOTRIGINE 87778355019 No Longer Active Marianelachandrika Juarez Active DILANTIN 100 MG CAPS Take three by mouth daily PHENYTOIN SODIUM EXTENDED 37715700952 No Longer Active Marianelachandrika Juarez Active SENOKOT 8.6 MG TABS take at bedtime SENNOSIDES 96102841422 Active Glenn Thornton MD Active LIPITOR 20 MG TABS take at bedtime ATORVASTATIN CALCIUM 48725524097 Active Glenn Thornton MD Active LISINOPRIL 2.5 MG TABS Take one by mouth daily LISINOPRIL 01534864648 Active Glenn Thornton MD Active TRENTAL 400 MG CR-TABS by mouth twice a day PENTOXIFYLLINE 88185225951 Active Glenn Thornton MD Active KLOR-CON 10 10 MEQ CR-TABS Take one by mouth daily POTASSIUM CHLORIDE 22364128791 Active Glenn Thornton MD Active DILANTIN 100 MG CAPS Take three by mouth daily DILANTIN 100 MG CAPS 083135 PHENYTOIN SODIUM EXTENDED Inactive LAMICTAL 150 MG TABS by mouth twice a day LAMICTAL 150 MG TABS 649442 LAMOTRIGINE Inactive LAMICTAL 100 MG TABS by mouth twice a day LAMICTAL 100 MG TABS 533994 LAMOTRIGINE Inactive DEPAKOTE SPRINKLES 125 MG CPSP 4 capsules by mouth twice daily DEPAKOTE SPRINKLES 125 MG CPSP 9059240 DIVALPROEX SODIUM Inactive DILANTIN 100 MG CAPS Take one by mouth daily DILANTIN 100 MG CAPS 341449 PHENYTOIN SODIUM EXTENDED Inactive INVEGA 6 MG ORAL [id number] 1 TAB ONCE DAILY INVEGA 6 MG ORAL [id number] PALIPERIDONE Inactive TYLENOL 325 MG TAB 1-2 pills by mouth every 6 hours if needed for pain/fever TYLENOL 325 MG TAB 195313 ACETAMINOPHEN Inactive ZOFRAN 4 MG TABS 1 po q6hr PRN Nausea ZOFRAN 4 MG TABS 961597 ONDANSETRON HCL Inactive ADULT ASPIRIN EC LOW STRENGTH 81 MG TBEC Take one by mouth daily ADULT ASPIRIN EC LOW STRENGTH 81 MG TBEC 685396 ASPIRIN Inactive FUROSEMIDE 40 MG TABS Take one by mouth daily FUROSEMIDE 40 MG TABS 479143 FUROSEMIDE Inactive BACTRIM DS 800-160 MG TABS 1 twice a day BACTRIM DS 800-160 MG TABS 19821119 SULFAMETHOXAZOLE-TRIMETHOPRIM Inactive IPRATROPIUM-ALBUTEROL 0.5-2.5 (3) MG/3ML INH SOLN 1 neb treatment QID for cough Dx: J06.9 IPRATROPIUM-ALBUTEROL 0.5-2.5 (3) MG/ 3ML INH SOLN 3130150 IPRATROPIUM-ALBUTEROL Inactive TYLENOL 8 HOUR 650 MG ORAL CR-TABS Take 1 tab po up to 3 times daily as needed TYLENOL 8 HOUR 650 MG ORAL CR-TABS ACETAMINOPHEN Inactive INVEGA 6 MG ORAL [id number] 1 po daily for Schizophrenia INVEGA 6 MG ORAL [id number] PALIPERIDONE Inactive IPRATROPIUM-ALBUTEROL 0.5-2.5 (3) MG/3ML SOLN 1 neb treatment four times daily , for cough IPRATROPIUM-ALBUTEROL 0.5-2.5 (3) MG/3ML SOLN 5569304 IPRATROPIUM-ALBUTEROL Inactive BACTRIM DS 800-160 MG TAB 1 tab by mouth twice daily BACTRIM DS 800-160 MG TAB 19821119 TRIMETHOPRIM-SULFAMETHOXAZOLE Inactive Advance Directives Directive Description Start Date DURABLE POWER OF DIE CASTING MACHINE SETTER FOR HEALTHCARE PERMISSION TO SHARE ADVANCED DIRECTIVE [...] mg/dL Encounters Code Encounter Date Provider Facility CPT-13917 Level 4 Est. Patient 14:27:30 CDT Pelon Quach MD [facility] CPT-21084 Level 3 Est. Patient 10:32:17 CDT Jaycee Garcia [facility] [place] CPT-85303 Level 3 Est. Patient 10:15:07 CDT Pelon Quach MD [facility] CPT-89475 Level 4 Est. Patient 09:30:54 CDT Pelon Quach MD [facility] CPT-72741 Level 4 Est. Patient 14:34:25 CDT Pelon Quach MD [facility] CPT-01594 Level 3 Est. Patient 11:51:35 MATRIX REPAIRER Rick Henson DO [facility] CPT-22311 Level 3 Est. Patient 12:13:33 MATRIX REPAIRER Erik Baptiste MD [facility] CPT-82663 Level 3 Est. Patient 09:40:44 MATRIX REPAIRER Jaycee Garcia [facility] [place] CPT-83449 Level 3 Est. Patient 09:36:32 MATRIX REPAIRER Jaycee Garcia [facility] [place] CPT-19063 Level 4 Est. Patient 16:57:02 MATRIX REPAIRER Pelon Quach MD [facility] CPT-89944 Level 4 Est. Patient 22:19:34 CDT Pelon Quach MD [facility] CPT-75087 Level 3 Est. Patient 00:34:41 CDT Pelon Quach MD [facility] CPT-06211 Level 4 Est. Patient 11:19:14 CDT Pelon Quach MD [facility] CPT-80624 Level 4 Est. Patient 16:43:30 MATRIX REPAIRER Pelon Quach MD [facility] CPT-77375 Level 4 Est. Patient 12:42:18 CDT Pelon Quach MD [facility] CPT-98723 Level 4 Est. Patient 11:52:20 CDT Pelon Quach MD [facility] CPT-19299 Level 4 Est. Patient 13:59:46 CDT Pelon Quach MD [facility] CPT-33690 Level 4 Est. Patient 15:10:48 CDT Pelon Quach MD [facility] CPT-75585 Level 4 Est. Patient 17:13:06 CDT Pelon Quach MD [facility] CPT-01735 Level 4 Est. Patient 18:47:47 CDT Pelon Quach MD [facility] CPT-36527 Level 3 Est. Patient 21:01:27 CDT Pelon Quach MD [facility] CPT-38013 Level 3 Est. Patient 14:07:03 CDT Taty Alvarado MD PhD [facility] CPT-82705 Level 3 New Patient 21:39:52 MATRIX REPAIRER Pelon Quach MD [facility] CPT-17499 Level 3 Est. Patient 14:28:44 CDT Glenn Thornton MD [facility] CPT-21212 Level 3 Est. Patient 16:35:00 CDT Glenn Thornton MD [facility] CPT-65936 Level 4 New Patient 17:06:27 CDT Glenn Thornton MD [facility] [place] Procedures Code Procedure Name Date Entry Date Standard Description CPT-G0438 Initial Annual Wellness Exam 09:30:54 CDT CPT-64978 Prevnar 13 Intramuscular Suspension 14:34:25 CDT 12/27 CPT-46811 Chest 2V Frontal and Lat - XRAY USE ONLY 11:56:13 MATRIX REPAIRER CPT-20035 Cystoscopy 14:28:44 CDT CPT-09980 Bladder Scan 14:28:44 CDT CPT-46601 Indwelling Cath Change 17:06:27 CDT CPT-40050 Cystoscopy 17:06:27 CDT
--- OUTSIDE RECORDS SUMMARY | 2018-06-22 12:18 | XMS REPORT | Clinical Summary ---
Author Author Admin, ONESIMO Organization [facility] [employer] [place] Address Unknown Phone Unavailable Allergies, Adverse Reactions, [...] as needed for muscle spasm/pain CYCLOBENZAPRINE HCL 33962028654 Active Pelon Quach MD Active BENADRYL 25 MG ORAL CAPSULE 1 po q8hr PRN Congestion DIPHENHYDRAMINE HCL 88479071910 Active Pelon Quach MD Active ZOFRAN 4 MG ORAL TABLET 1 po q6hr PRN Nausea ONDANSETRON HCL 20842624020 Active Pelon Quach MD Active IMODIUM A-D 2 MG ORAL TABLET One QID prn diarrhea. No more than 4 tabs daily LOPERAMIDE HCL 15064489864 Active Pelon Quach MD Active TYLENOL 325 MG ORAL TABLET 2 tabs po prn for pain elevated temp ACETAMINOPHEN 36960296469 Active Pelon Quach MD Active MUCINEX D 60-600 MG ORAL TABLET EXTENDED RELEASE 12 HOUR 1 po BID PRN Congestion PSEUDOEPHEDRINE-GUAIFENESIN 77361303530 Active Pelon Quach MD Active IBUPROFEN 200 MG ORAL TABLET q 6hrs prn pain IBUPROFEN 65992092655 Active Pelon Quach MD Active LORATADINE 10 MG ORAL TABLET 1 tablet by mouth daily prn LORATADINE 69678020296 Active Pelon Quach MD Active BANOPHEN 25 MG ORAL TABLET 1 po every 6 hours PRN allergic reaction DIPHENHYDRAMINE HCL 05213801931 No Longer Active Pelon Quach MD Active EASY TOUCH ALCOHOL PREP MEDIUM 70 % PAD Use with each finger stick and insulin admin Dx: E11.9 ALCOHOL SWABS 00857154591 Active Jaycee Torrez APRN Active HUMALOG KWIKPEN 100 UNIT/ML SUBCUTANEOUS SOLUTION PEN-INJECTOR inject 10 units subcutaneously before meals also sliding scale INSULIN LISPRO 51671473834 Active Pelon Quach MD Active NOVOLOG 100 UNIT/ML SUBCUTANEOUS SOLUTION 10 UNITS BID BEFORE BREAKFAST AND LUNCH INSULIN ASPART 41656825168 No Longer Active NICOLETTE Hitchcock Active NOVOLOG 100 UNIT/ML SUBCUTANEOUS SOLUTION 10 UNITS BEFORE SUPPER INSULIN ASPART 66486464157 No Longer Active NICOLETTE Hitchcock Active INVEGA 6 MG ORAL TABLET EXTENDED RELEASE 24 HOUR 1 po daily for schizophrenia PALIPERIDONE 55384110308 Active Pelon Quach MD Active LAMICTAL 25 MG ORAL TABLET 2 tabs by mouth twice a day LAMOTRIGINE 32036208885 No Longer Active Pelon Quach MD Active BACTROBAN 2 % EXTERNAL OINTMENT Apply to affected area BID 06/28 MUPIROCIN 13060671773 No Longer Active Pelon Quach MD Active INVEGA 6 MG ORAL TABLET EXTENDED RELEASE 24 HOUR 1 po daily for Schizophrenia PALIPERIDONE 97974587156 No Longer Active Pelon Quach MD Active TYLENOL 8 HOUR 650 MG ORAL TABLET EXTENDED RELEASE Take 1 tab po up to 3 times daily as needed ACETAMINOPHEN 19711841127 No Longer Active Pelon Quach MD Active IPRATROPIUM-ALBUTEROL 0.5-2.5 (3) MG/3ML INHALATION SOLUTION 1 neb treatment QID for cough Dx: J06.9 IPRATROPIUM-ALBUTEROL 35015072494 No Longer Active Pelon Quach MD Active BACTRIM DS 800-160 MG ORAL TABLET 1 tab by mouth twice daily 2016 TRIMETHOPRIM-SULFAMETHOXAZOLE 00435095962 No Longer Active Pelon Quach MD Active BACTRIM DS 800-160 MG ORAL TABLET 1 twice a day SULFAMETHOXAZOLE-TRIMETHOPRIM 24372140602 No Longer Active Pelon Quach MD Active IPRATROPIUM-ALBUTEROL 0.5-2.5 (3) MG/3ML INHALATION SOLUTION 1 neb treatment four times daily, for cough IPRATROPIUM-ALBUTEROL 36642439451 No Longer Active Jaycee Torrez APRN Active FUROSEMIDE 40 MG ORAL TABLET Take one by mouth daily FUROSEMIDE 19798383987 No Longer Active Jaycee Torrez APRN Active LANTUS 100 UNIT/ML SUBCUTANEOUS SOLUTION 20 SUBQ AT HS INSULIN GLARGINE 04148767327 Active Pelon Quach MD Active LAMICTAL 25 MG ORAL TABLET 2 tabs po BID for convulsions LAMOTRIGINE 75252697628 Active Jaycee Torrez APRN Active LASIX 20 MG ORAL TABLET 1 tablet by mouth every morning for edema FUROSEMIDE 50111651639 Active Jaycee Torrez APRN Active BUSPIRONE HCL 10 MG ORAL TABLET 1 tab by mouth BID BUSPIRONE HCL 38189602950 Active Jaycee Torrez APRN Active ADULT ASPIRIN EC LOW STRENGTH 81 MG ORAL TABLET DELAYED RELEASE Take one by mouth daily ASPIRIN 42007588703 No Longer Active Pelon Quach MD Active ASPIRIN 81 MG ORAL TABLET 1 po qd ASPIRIN 21417234810 Active Pelon Quach MD Active ZOFRAN 4 MG ORAL TABLET 1 po q6hr PRN Nausea ONDANSETRON HCL 59025976671 No Longer Active Pelon Quach MD Active TYLENOL 325 MG ORAL TABLET 1-2 pills by mouth every 6 hours if needed for pain /fever ACETAMINOPHEN 16974874567 No Longer Active Pelon Quach MD Active INVEGA 6 MG ORAL TABLET EXTENDED RELEASE 24 HOUR 1 TAB ONCE DAILY PALIPERIDONE 00359592987 No Longer Active Carly Suggs Active TEGRETOL 200 MG ORAL TABLET by mouth twice a day CARBAMAZEPINE 22841479055 Active Taty Alvarado MD PhD Active FLOMAX 0.4 MG ORAL CAPSULE 1 Daily TAMSULOSIN HCL 38827849517 Active Marianelachandrika Juarez Active DILANTIN 100 MG ORAL CAPSULE Take one by mouth daily PHENYTOIN SODIUM EXTENDED 32041274475 No Longer Active Marianelachandrika Shankarronny Active DEPAKOTE SPRINKLES 125 MG ORAL CAPSULE DELAYED RELEASE SPRINKLE 4 capsules by mouth twice daily DIVALPROEX SODIUM 82723292179 No Longer Active Marianela Raida Active LAMICTAL 200 MG ORAL TABLET 1 BY MOUTH TWICE A DAY LAMOTRIGINE 34035579561 Active Marianela Raida Active LAMICTAL 100 MG ORAL TABLET by mouth twice a day LAMOTRIGINE 39364589479 No Longer Active Marianela Raida Active LAMICTAL 150 MG ORAL TABLET by mouth twice a day LAMOTRIGINE 59446538368 No Longer Active Marianelachandrika Shankarida Active DILANTIN 100 MG ORAL CAPSULE Take three by mouth daily PHENYTOIN SODIUM EXTENDED 20261338905 No Longer Active Marianela Larry Active SENOKOT 8.6 MG ORAL TABLET take at bedtime SENNOSIDES 13549558623 Active Pelon Quach MD Active LIPITOR 20 MG ORAL TABLET take at bedtime ATORVASTATIN CALCIUM 47470574311 Active Glenn Thornton MD Active LISINOPRIL 2.5 MG ORAL TABLET Take one by mouth daily LISINOPRIL 98056710914 Active Glenn Thornton MD Active TRENTAL 400 MG CR-TABS by mouth twice a day PENTOXIFYLLINE 52112403191 Active Glenn Thornton MD Active KLOR-CON 10 10 MEQ ORAL TABLET EXTENDED RELEASE Take one by mouth daily POTASSIUM CHLORIDE 02175132606 Active Glenn Thornton MD Active DILANTIN 100 MG ORAL CAPSULE Take three by mouth daily DILANTIN 100 MG ORAL CAPSULE 429558 PHENYTOIN SODIUM EXTENDED Inactive LAMICTAL 150 MG [...] 125 MG ORAL CAPSULE DELAYED RELEASE SPRINKLE 8201325 DIVALPROEX SODIUM Inactive DILANTIN 100 MG ORAL CAPSULE Take one by mouth daily DILANTIN 100 MG ORAL CAPSULE 754260 PHENYTOIN SODIUM EXTENDED Inactive INVEGA 6 MG ORAL TABLET EXTENDED RELEASE 24 HOUR 1 TAB ONCE DAILY INVEGA 6 MG ORAL TABLET EXTENDED RELEASE 24 HOUR PALIPERIDONE Inactive TYLENOL 325 MG ORAL TABLET 1-2 pills by mouth every 6 hours if needed for pain /fever TYLENOL 325 MG ORAL TABLET 815740 ACETAMINOPHEN Inactive ZOFRAN 4 MG ORAL TABLET 1 po q6hr PRN Nausea ZOFRAN 4 MG ORAL TABLET 706735 ONDANSETRON HCL Inactive ADULT ASPIRIN EC LOW STRENGTH 81 MG ORAL TABLET DELAYED RELEASE Take one by mouth daily ADULT ASPIRIN EC LOW STRENGTH 81 MG ORAL TABLET DELAYED RELEASE 603492 ASPIRIN Inactive FUROSEMIDE 40 MG ORAL TABLET Take one by mouth daily FUROSEMIDE 40 MG ORAL TABLET 715769 FUROSEMIDE Inactive BACTRIM DS 800-160 MG ORAL TABLET 1 twice a day BACTRIM DS 800-160 MG ORAL TABLET 811450 SULFAMETHOXAZOLE-TRIMETHOPRIM Inactive IPRATROPIUM-ALBUTEROL 0.5-2.5 (3) MG/3ML INHALATION SOLUTION 1 neb treatment QID for cough Dx: J06.9 IPRATROPIUM-ALBUTEROL 0.5-2.5 ( 3) MG/3ML INHALATION SOLUTION 6991698 IPRATROPIUM-ALBUTEROL Inactive TYLENOL 8 HOUR 650 MG [...] a day LAMICTAL 25 MG ORAL TABLET 752927 LAMOTRIGINE Inactive NOVOLOG 100 UNIT/ML SUBCUTANEOUS SOLUTION 10 UNITS BEFORE SUPPER NOVOLOG 100 UNIT/ML SUBCUTANEOUS SOLUTION INSULIN ASPART Inactive NOVOLOG 100 UNIT/ML SUBCUTANEOUS SOLUTION 10 UNITS BID BEFORE BREAKFAST AND LUNCH NOVOLOG 100 UNIT/ML SUBCUTANEOUS SOLUTION INSULIN ASPART Inactive BANOPHEN 25 MG ORAL TABLET 1 po every 6 hours PRN allergic reaction BANOPHEN 25 MG ORAL TABLET 7312150 DIPHENHYDRAMINE HCL Inactive IPRATROPIUM-ALBUTEROL 0.5-2.5 (3) MG/3ML INHALATION SOLUTION 1 neb treatment four times daily, for cough IPRATROPIUM-ALBUTEROL 0.5- 2.5 (3) MG/3ML INHALATION SOLUTION 0781142 IPRATROPIUM-ALBUTEROL Inactive BACTRIM DS 800-160 MG ORAL TABLET 1 tab by mouth twice daily 2016 BACTRIM DS 800-160 MG ORAL TABLET 112465 TRIMETHOPRIM- SULFAMETHOXAZOLE Inactive Advance Directives Directive Description Start Date DURABLE POWER OF ICT SYSTEMS TEST ENGINEER FOR HEALTHCARE PERMISSION TO SHARE ADVANCED [...] temperature blood pressure, diastolic 91 mm[Hg] BP dayl blood pressure, systolic 180 mm[Hg] BP sys [...] Panel - Chemistry sodium, serum 127 mmol/L 922-129 6404/07/28 potassium, serum 5.3 mmol/L 3.5-5.2 chloride, serum 92 mmol/L 98-107 carbon dioxide, venous blood 32.4 mmol/L 21.0-32.0 blood glucose 182 mg/dL 65-110 calcium, serum 9.4 mg/dL 8.5-10.1 urea nitrogen, blood 14 mg/dL 7-18 creatinine, serum 0.94 mg/dL 0.60-1.30 Lab Report: CBC, Comp. Metabolic Panel - Chemistry sodium, serum 129 mmol/L 282-231 7605/07/12 carbon dioxide, venous blood 27.8 mmol/L 21.0-32.0 [...] 142-424 Lab Report: Comp. Metabolic Panel, CBC, BA1C - Chemistry sodium, serum 123 mmol/L 123-158 2680/04/25 carbon dioxide, venous blood 26.2 mmol/L 21.0-32.0 [...] mg/dL Encounters Code Encounter Date Provider Facility [facility]-[id number] Vst-Est Level III 13:36:24 CDT Pelon Quach MD -96233 Level 4 Est. Patient 18:11:18 CDT Pelon Quach MD [facility] CPT-72113 Level 4 Est. Patient 14:46:38 CDT Pelon Quach MD -36065 Level 4 Est. Patient 08:43:11 CDT Pelon Quach MD -85442 Level 4 Est. Patient 14:27:30 CDT Pelon Quach MD -59258 Level 3 Est. Patient 10:32:17 CDT Jaycee Torrez [facility]-36400 Level 3 Est. Patient 10:15:07 CDT Pelon Quach MD [facility] CPT-20689 Level 4 Est. Patient 09:30:54 CDT Pelon Quach MD -88548 Level 4 Est. Patient 14:34:25 CDT Pelon Quach MD -10183 Level 3 Est. Patient 11:51:35 DATA ABSTRACTOR Rick Henson DO [facility] CPT-66144 Level 3 Est. Patient 12:13:33 DATA ABSTRACTOR Erik Baptiste MD -53308 Level 3 Est. Patient 09:40:44 DATA ABSTRACTOR Jaycee Torrez [facility]-53210 Level 3 Est. Patient 09:36:32 DATA ABSTRACTOR Jaycee Torrez ROLE PLAYER -74990 Level 4 Est. Patient 16:57:02 DATA ABSTRACTOR Pelon Quach MD -91136 Level 4 Est. Patient 22:19:34 CDT Pelon Quach MD -86671 Level 3 Est. Patient 00:34:41 CDT Pelon Quach MD -24465 Level 4 Est. Patient 11:19:14 CDT Pelon Quach MD -06198 Level 4 Est. Patient 16:43:30 DATA ABSTRACTOR Pelon Quach MD -32023 Level 4 Est. Patient 12:42:18 CDT Pelon Quach MD [facility] CPT-62718 Level 4 Est. Patient 11:52:20 CDT Pelon Quach MD [facility]-10358 Level 4 Est. Patient 13:59:46 CDT Pelon Quach MD [facility]-89095 Level 4 Est. Patient 15:10:48 CDT Pelon Quach MD [facility]-68492 Level 4 Est. Patient 17:13:06 CDT Pelon Quach MD [facility] CPT-11096 Level 4 Est. Patient 18:47:47 CDT Pelon Quach MD [facility]-82606 Level 3 Est. Patient 21:01:27 CDT Pelon Quach MD [facility]-50664 Level 3 Est. Patient 14:07:03 CDT Taty Alvarado MD PhD [facility] CPT-43753 Level 3 New Patient 21:39:52 DATA ABSTRACTOR Pelon Quach MD [facility]-81918 Level 3 Est. Patient 14:28:44 CDT Glenn Thornton MD [facility]-51684 Level 3 Est. Patient 16:35:00 CDT Glenn Thornton MD [facility] CPT-56060 Level 4 New Patient 17:06:27 CDT Glenn Thornton MD [facility] [place] Procedures Code Procedure Name Date Entry Date Standard Description CPT-G0439 Subsequent Annual Wellness Exam 18:11:17 CDT CPT-G0438 Initial Annual Wellness Exam 09:30:54 CDT CPT-05944 Prevnar 13 Intramuscular Suspension 14:34:25 CDT 12/27 CPT-57881 Chest 2V Frontal and Lat - XRAY USE ONLY 11:56:13 DATA ABSTRACTOR CPT-22698 Cystoscopy 14:28:44 CDT CPT-14738 Bladder Scan 14:28:44 CDT CPT-40648 Indwelling Cath Change 17:06:27 CDT CPT-58705 Cystoscopy 17:06:27 CDT
--- OUTSIDE RECORDS SUMMARY | 2018-06-22 12:19 | XMS REPORT | Clinical Summary ---
Author Author Admin, ONESIMO Organization [facility] [employer] [place] Address Unknown Phone Unavailable Allergies, Adverse Reactions, [...] Unspecified essential hypertension SEIZURE DISORDER 780.39 Active lGenn Thornton MD Other convulsions History of ATRIAL [...] Pelon Quach MD URINARY RETENTION ICD-788.20 Inactive Pelno Quach MD Diabetes-Type 2 ICD-250.00 Inactive Pelon [...] as needed for muscle spasm/pain CYCLOBENZAPRINE HCL 27876870434 Active Pelon Quach MD Active BENADRYL 25 MG ORAL CAPSULE 1 po q8hr PRN Congestion DIPHENHYDRAMINE HCL 86969444247 Active Pelon Quach MD Active ZOFRAN 4 MG ORAL TABLET 1 po q6hr PRN Nausea ONDANSETRON HCL 23029678744 Active Pelon Quach MD Active IMODIUM A-D 2 MG ORAL TABLET One QID prn diarrhea. No more than 4 tabs daily LOPERAMIDE HCL 61934647010 Active Pelon Quach MD Active TYLENOL 325 MG ORAL TABLET 2 tabs po prn for pain elevated temp ACETAMINOPHEN 44100457831 Active Pelon Quach MD Active MUCINEX D 60-600 MG ORAL TABLET EXTENDED RELEASE 12 HOUR 1 po BID PRN Congestion PSEUDOEPHEDRINE-GUAIFENESIN 79648896784 Active Pelon Quach MD Active IBUPROFEN 200 MG ORAL TABLET q 6hrs prn pain IBUPROFEN 33733327439 Active Pelon Quach MD Active LORATADINE 10 MG ORAL TABLET 1 tablet by mouth daily prn LORATADINE 62643854401 Active Pelon Quach MD Active BANOPHEN 25 MG ORAL TABLET 1 po every 6 hours PRN allergic reaction DIPHENHYDRAMINE HCL 40827524738 No Longer Active Pelon Quach MD Active EASY TOUCH ALCOHOL PREP MEDIUM 70 % PAD Use with each finger stick and insulin admin Dx: E11.9 ALCOHOL SWABS 30796855275 Active Jaycee Torrez APRN Active HUMALOG KWIKPEN 100 UNIT/ML SUBCUTANEOUS SOLUTION PEN-INJECTOR inject 10 units subcutaneously before meals also sliding scale INSULIN LISPRO 96270495569 Active Pelon Quach MD Active NOVOLOG 100 UNIT/ML SUBCUTANEOUS SOLUTION 10 UNITS BID BEFORE BREAKFAST AND LUNCH INSULIN ASPART 15732855580 No Longer Active NICOLETTE Hitchcock Active NOVOLOG 100 UNIT/ML SUBCUTANEOUS SOLUTION 10 UNITS BEFORE SUPPER INSULIN ASPART 25778670580 No Longer Active NICOLETTE Hitchcock Active INVEGA 6 MG ORAL TABLET EXTENDED RELEASE 24 HOUR 1 po daily for schizophrenia PALIPERIDONE 64159220429 Active Pelon Quach MD Active LAMICTAL 25 MG ORAL TABLET 2 tabs by mouth twice a day LAMOTRIGINE 50847936727 No Longer Active Pelon Quach MD Active BACTROBAN 2 % EXTERNAL OINTMENT Apply to affected area BID 06/28 MUPIROCIN 99245364449 No Longer Active Pelon Quach MD Active INVEGA 6 MG ORAL TABLET EXTENDED RELEASE 24 HOUR 1 po daily for Schizophrenia PALIPERIDONE 98644109053 No Longer Active Pelon Quach MD Active TYLENOL 8 HOUR 650 MG ORAL TABLET EXTENDED RELEASE Take 1 tab po up to 3 times daily as needed ACETAMINOPHEN 72837539025 No Longer Active Pelon Quach MD Active IPRATROPIUM-ALBUTEROL 0.5-2.5 (3) MG/3ML INHALATION SOLUTION 1 neb treatment QID for cough Dx: J06.9 IPRATROPIUM-ALBUTEROL 63350799240 No Longer Active Pelon Quach MD Active BACTRIM DS 800-160 MG ORAL TABLET 1 tab by mouth twice daily 2016 TRIMETHOPRIM-SULFAMETHOXAZOLE 13484274177 No Longer Active Pelon Quach MD Active BACTRIM DS 800-160 MG ORAL TABLET 1 twice a day SULFAMETHOXAZOLE-TRIMETHOPRIM 49147428227 No Longer Active Pelon Quach MD Active IPRATROPIUM-ALBUTEROL 0.5-2.5 (3) MG/3ML INHALATION SOLUTION 1 neb treatment four times daily, for cough IPRATROPIUM-ALBUTEROL 04477948478 No Longer Active Jaycee Torrez APRN Active FUROSEMIDE 40 MG ORAL TABLET Take one by mouth daily FUROSEMIDE 84364284084 No Longer Active Jaycee Torrez APRN Active LANTUS 100 UNIT/ML SUBCUTANEOUS SOLUTION 20 SUBQ AT HS INSULIN GLARGINE 97468674877 Active Pelon Quach MD Active LAMICTAL 25 MG ORAL TABLET 2 tabs po BID for convulsions LAMOTRIGINE 98181071322 Active Jaycee Torrez APRN Active LASIX 20 MG ORAL TABLET 1 tablet by mouth every morning for edema FUROSEMIDE 87042898526 Active Jaycee Torrez APRN Active BUSPIRONE HCL 10 MG ORAL TABLET 1 tab by mouth BID BUSPIRONE HCL 90835155671 Active Jaycee Torrez APRN Active ADULT ASPIRIN EC LOW STRENGTH 81 MG ORAL TABLET DELAYED RELEASE Take one by mouth daily ASPIRIN 28809896096 No Longer Active Pelon Quach MD Active ASPIRIN 81 MG ORAL TABLET 1 po qd ASPIRIN 75683050380 Active Pelon Quach MD Active ZOFRAN 4 MG ORAL TABLET 1 po q6hr PRN Nausea ONDANSETRON HCL 03142347735 No Longer Active Pelon Quach MD Active TYLENOL 325 MG ORAL TABLET 1-2 pills by mouth every 6 hours if needed for pain /fever ACETAMINOPHEN 44929970408 No Longer Active Pelon Quach MD Active INVEGA 6 MG ORAL TABLET EXTENDED RELEASE 24 HOUR 1 TAB ONCE DAILY PALIPERIDONE 08662803768 No Longer Active Carly Suggs Active TEGRETOL 200 MG ORAL TABLET by mouth twice a day CARBAMAZEPINE 26909543934 Active Taty Alvarado MD PhD Active FLOMAX 0.4 MG ORAL CAPSULE 1 Daily TAMSULOSIN HCL 07610092301 Active Marianela Juarez Active DILANTIN 100 MG ORAL CAPSULE Take one by mouth daily PHENYTOIN SODIUM EXTENDED 74478565678 No Longer Active Marianela Juarez Active DEPAKOTE SPRINKLES 125 MG ORAL CAPSULE DELAYED RELEASE SPRINKLE 4 capsules by mouth twice daily DIVALPROEX SODIUM 15198078125 No Longer Active Marianelachandrika Juarez Active LAMICTAL 200 MG ORAL TABLET 1 BY MOUTH TWICE A DAY LAMOTRIGINE 84681118276 Active Marianela Raida Active LAMICTAL 100 MG ORAL TABLET by mouth twice a day LAMOTRIGINE 25622213605 No Longer Active Marianela Raida Active LAMICTAL 150 MG ORAL TABLET by mouth twice a day LAMOTRIGINE 52816067571 No Longer Active Marianelachandrika Juarez Active DILANTIN 100 MG ORAL CAPSULE Take three by mouth daily PHENYTOIN SODIUM EXTENDED 21482878420 No Longer Active Marianela Juarez Active SENOKOT 8.6 MG ORAL TABLET [facility] Active Pelon Quach MD Active LIPITOR 20 MG ORAL TABLET take at bedtime ATORVASTATIN CALCIUM 61390775850 Active Glenn Thornton MD Active LISINOPRIL 2.5 MG ORAL TABLET Take one by mouth daily LISINOPRIL 69987346595 Active Glenn Thornton MD Active TRENTAL 400 MG CR-TABS by mouth twice a day PENTOXIFYLLINE 20612944089 Active Glenn Thornton MD Active KLOR-CON 10 10 MEQ ORAL TABLET EXTENDED RELEASE Take one by mouth daily POTASSIUM CHLORIDE 58995248967 Active Glenn Thornton MD Active DILANTIN 100 MG ORAL CAPSULE Take three by mouth daily DILANTIN 100 MG ORAL CAPSULE 143315 PHENYTOIN SODIUM EXTENDED Inactive LAMICTAL 150 MG ORAL TABLET by mouth twice a day LAMICTAL 150 MG ORAL TABLET 970761 LAMOTRIGINE Inactive LAMICTAL 100 MG ORAL TABLET by mouth twice a day LAMICTAL 100 MG ORAL TABLET 738582 LAMOTRIGINE Inactive DEPAKOTE SPRINKLES 125 MG ORAL CAPSULE DELAYED RELEASE SPRINKLE 4 capsules by mouth twice daily DEPAKOTE SPRINKLES 125 MG ORAL CAPSULE DELAYED RELEASE SPRINKLE 9630372 DIVALPROEX SODIUM Inactive DILANTIN 100 MG ORAL CAPSULE Take one by mouth daily DILANTIN 100 MG ORAL CAPSULE 012164 PHENYTOIN SODIUM EXTENDED Inactive INVEGA 6 MG ORAL TABLET EXTENDED RELEASE 24 HOUR 1 TAB ONCE DAILY INVEGA 6 MG ORAL TABLET EXTENDED RELEASE 24 HOUR PALIPERIDONE Inactive TYLENOL 325 MG ORAL TABLET 1-2 pills by mouth every 6 hours if needed for pain /fever TYLENOL 325 MG ORAL TABLET 928285 ACETAMINOPHEN Inactive ZOFRAN 4 MG ORAL TABLET 1 po q6hr PRN Nausea ZOFRAN 4 MG ORAL TABLET 626794 ONDANSETRON HCL Inactive ADULT ASPIRIN EC LOW STRENGTH 81 MG ORAL TABLET DELAYED RELEASE Take one by mouth daily ADULT ASPIRIN EC LOW STRENGTH 81 MG ORAL TABLET DELAYED RELEASE 761151 ASPIRIN Inactive FUROSEMIDE 40 MG ORAL TABLET Take one by mouth daily FUROSEMIDE 40 MG ORAL TABLET 652835 FUROSEMIDE Inactive BACTRIM DS 800-160 MG ORAL TABLET 1 twice a day BACTRIM DS 800-160 MG ORAL TABLET 19821119 SULFAMETHOXAZOLE-TRIMETHOPRIM Inactive IPRATROPIUM-ALBUTEROL 0.5-2.5 (3) MG/3ML INHALATION SOLUTION 1 neb treatment QID for cough Dx: J06.9 IPRATROPIUM-ALBUTEROL 0.5-2.5 ( 3) MG/3ML INHALATION SOLUTION 9709020 IPRATROPIUM-ALBUTEROL Inactive TYLENOL 8 HOUR 650 MG [...] a day LAMICTAL 25 MG ORAL TABLET 095273 LAMOTRIGINE Inactive NOVOLOG 100 UNIT/ML SUBCUTANEOUS SOLUTION 10 UNITS BEFORE SUPPER NOVOLOG 100 UNIT/ML SUBCUTANEOUS SOLUTION INSULIN ASPART Inactive NOVOLOG 100 UNIT/ML SUBCUTANEOUS SOLUTION 10 UNITS BID BEFORE BREAKFAST AND LUNCH NOVOLOG 100 UNIT/ML SUBCUTANEOUS SOLUTION INSULIN ASPART Inactive BANOPHEN 25 MG ORAL TABLET 1 po every 6 hours PRN allergic reaction BANOPHEN 25 MG ORAL TABLET 6711974 DIPHENHYDRAMINE HCL Inactive IPRATROPIUM-ALBUTEROL 0.5-2.5 (3) MG/3ML INHALATION SOLUTION 1 neb treatment four times daily, for cough IPRATROPIUM-ALBUTEROL 0.5- 2.5 (3) MG/3ML INHALATION SOLUTION 1681969 IPRATROPIUM-ALBUTEROL Inactive BACTRIM DS 800-160 MG ORAL TABLET 1 tab by mouth twice daily 2016 BACTRIM DS 800-160 MG ORAL TABLET 19821119 TRIMETHOPRIM- SULFAMETHOXAZOLE Inactive Advance Directives Directive Description Start Date DURABLE POWER OF RETAIL ATTENDANT FOR HEALTHCARE PERMISSION TO SHARE ADVANCED DIRECTIVE [...] Panel - Chemistry sodium, serum 127 mmol/L 396-995 1100/07/28 potassium, serum 5.3 mmol/L 3.5-5.2 chloride, serum 92 mmol/L 98-107 carbon dioxide, venous blood 32.4 mmol/L 21.0-32.0 blood glucose 182 mg/dL 65-110 calcium, serum 9.4 mg/dL 8.5-10.1 urea nitrogen, blood 14 mg/dL 7-18 creatinine, serum 0.94 mg/dL 0.60-1.30 Lab Report: CBC, Comp. Metabolic Panel - Chemistry sodium, serum 129 mmol/L 825-052 1881/07/12 carbon dioxide, venous blood 27.8 mmol/L 21.0-32.0 [...] HGBA1C - Chemistry sodium, serum 123 mmol/L 532-645 3648/04/25 carbon dioxide, venous blood 26.2 mmol/L 21.0-32.0 [...] mg/dL Encounters Code Encounter Date Provider Facility CPT-41622 90609-Sre Vst-Est Level II 13:40:42 CDT Pelon Quach MD [facility] CPT-00201 [id number] Vst-Est Level III 13:36:24 CDT Pelon Quach MD [facility] CPT-30123 Level 4 Est. Patient 18:11:18 CDT Pelon Quach MD [facility] CPT-15737 Level 4 Est. Patient 14:46:38 CDT Pelon Quach MD [facility] CPT-55946 Level 4 Est. Patient 08:43:11 CDT Pelon Quach MD [facility] CPT-28976 Level 4 Est. Patient 14:27:30 CDT Pelon Quach MD [facility] CPT-69041 Level 3 Est. Patient 10:32:17 CDT Jaycee Torrez APRN [facility] CPT-67266 Level 3 Est. Patient 10:15:07 CDT Pelon Quach MD [facility] CPT-79455 Level 4 Est. Patient 09:30:54 CDT Pelon Quach MD [facility]-05349 Level 4 Est. Patient 14:34:25 CDT Pelon Quach MD [facility]-32342 Level 3 Est. Patient 11:51:35 CAN MARKER Rick Henson DO [facility]-57761 Level 3 Est. Patient 12:13:33 CAN MARKER Erik Baptiste MD [facility]-56400 Level 3 Est. Patient 09:40:44 CAN MARKER Jaycee Torrez [facility]-29598 Level 3 Est. Patient 09:36:32 CAN MARKER Jaycee Torrez [facility] CPT-10415 Level 4 Est. Patient 16:57:02 CAN MARKER Pelon Quach MD [facility]-31264 Level 4 Est. Patient 22:19:34 CDT Pelon Quach MD [facility]-95203 Level 3 Est. Patient 00:34:41 CDT Pelon Quach MD [facility]-07180 Level 4 Est. Patient 11:19:14 CDT Pelon Quach MD [facility]-28673 Level 4 Est. Patient 16:43:30 CAN MARKER Pelon Quach MD [facility]-27742 Level 4 Est. Patient 12:42:18 CDT Pelon Quach MD [facility] CPT-47260 Level 4 Est. Patient 11:52:20 CDT Pelon Quach MD [facility] CPT-22228 Level 4 Est. Patient 13:59:46 CDT Pelon Quach MD [facility] CPT-14777 Level 4 Est. Patient 15:10:48 CDT Pelon Quach MD [facility] CPT-61568 Level 4 Est. Patient 17:13:06 CDT Pelon Quach MD [facility] CPT-96252 Level 4 Est. Patient 18:47:47 CDT Pelon Quach MD [facility] CPT-04311 Level 3 Est. Patient 21:01:27 CDT Pelon Quach MD [facility] CPT-25580 Level 3 Est. Patient 14:07:03 CDT Taty Alvarado MD PhD [facility] CPT-60432 Level 3 New Patient 21:39:52 CAN MARKER Pelon Quach MD [facility] CPT-58230 Level 3 Est. Patient 14:28:44 CDT Glenn Thornton MD [facility] CPT-82532 Level 3 Est. Patient 16:35:00 CDT Glenn Thornton MD [facility] CPT-95787 Level 4 New Patient 17:06:27 CDT Glenn Thornton MD [facility] [place] Procedures Code Procedure Name Date Entry Date Standard Description CPT-G0439 Subsequent Annual Wellness Exam 18:11:17 CDT CPT-G0438 Initial Annual Wellness Exam 09:30:54 CDT CPT-56823 Prevnar 13 Intramuscular Suspension 14:34:25 CDT 12/27 CPT-24368 Chest 2V Frontal and Lat - XRAY USE ONLY 11:56:13 [employer] MARKER CPT-27113 Cystoscopy 14:28:44 CDT CPT-46055 Bladder Scan 14:28:44 CDT CPT-11558 Indwelling Cath Change 17:06:27 CDT CPT-91625 Cystoscopy 17:06:27 CDT
--- OUTSIDE RECORDS SUMMARY | 2018-06-22 12:20 | XMS REPORT | Clinical Summary ---
Author Author Admin, ONESIMO Organization [facility] [employer] Address Unknown Phone Unavailable Allergies, Adverse Reactions, [...] TABS 1 twice a day SULFAMETHOXAZOLE- TRIMETHOPRIM 07258959354 Active Erik Baptiste MD Active IPRATROPIUM-ALBUTEROL 0.5-2.5 (3) MG/3ML INH SOLN 1 neb treatment QID for cough Dx: J06.9 IPRATROPIUM-ALBUTEROL 88118554036 Active Jaycee Garcia APRN Active IPRATROPIUM-ALBUTEROL 0.5-2.5 (3) MG/3ML SOLN 1 neb treatment four times daily , for cough IPRATROPIUM-ALBUTEROL 95912117960 No Longer Active Jaycee Garcia APRN Active TYLENOL 8 HOUR 650 MG ORAL CR-TABS Take 1 tab po up to 3 times daily as needed ACETAMINOPHEN 26941107864 Active Jaycee Jose 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 FUROSEMIDE 40 MG TABS Take one by mouth daily FUROSEMIDE 56668443655 No Longer Active Jaycee Garcia VICTORINO Active LANTUS 100 UNIT/ML SC SOLN 20 SUBQ AT HS INSULIN GLARGINE 35452358785 Active Jaycee Jose 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 LAMICTAL 25 MG ORAL TABS 2 tabs po BID for convulsions LAMOTRIGINE 74696432671 Active Jaycee Garcia VICTORINO Active INVEGA 6 MG ORAL [id number] 1 po daily for Schizophrenia PALIPERIDONE 62053274034 Active Jaycee Garcia VICTORINO Active LASIX 20 MG TAB 1 tablet by mouth every morning for edema FUROSEMIDE 29943794327 Active Jayceehugo Garcia APRN Active BUSPIRONE HCL 10 MG TABS 1 tab by mouth BID BUSPIRONE HCL 29114459227 Active Jaycee Garcia VICTORINO Active NOVOLOG 100 UNIT/ML SC SOLN 10 UNITS BEFORE SUPPER INSULIN ASPART 97695346112 Active Jaycee Garcia VICTORINO Active NOVOLOG 100 UNIT/ML SC SOLN 10 UNITS BID BEFORE BREAKFAST AND LUNCH INSULIN ASPART 30720181857 Active Jaycee Garcia VICTORINO Active LAMICTAL 25 MG TABS 2 tabs by mouth twice a day LAMOTRIGINE 14800493094 Active Pelon Quach MD Active ADULT ASPIRIN EC LOW STRENGTH 81 MG TBEC Take one by mouth daily ASPIRIN 43208561630 No Longer Active Pelon Quach MD Active ASPIRIN 81 MG ORAL TABS 1 po qd ASPIRIN 25650184258 Active Pelon Quach MD Active ZOFRAN 4 MG TABS 1 po q6hr PRN Nausea ONDANSETRON HCL 27139038456 No Longer Active Pelon Quach MD Active TYLENOL 325 MG TAB 1-2 pills by mouth every 6 hours if needed for pain/fever ACETAMINOPHEN 28159128863 No Longer Active Pelon Quach MD Active INVEGA 6 MG ORAL [id number] 1 TAB ONCE DAILY PALIPERIDONE 17012108932 No Longer Active Carly Suggs Active TEGRETOL 200 MG TABS by mouth twice a day CARBAMAZEPINE 06915830219 Active Taty Alvarado MD PhD Active FLOMAX 0.4 MG CAPS 1 Daily TAMSULOSIN HCL 59637730465 Active Marianelachandrika Juarez Active DILANTIN 100 MG CAPS Take one by mouth daily PHENYTOIN SODIUM EXTENDED 64435903747 No Longer Active Marianelachandrika Juarez Active DEPAKOTE SPRINKLES 125 MG CPSP 4 capsules by mouth twice daily DIVALPROEX SODIUM 43731346639 No Longer Active Marianelachandrika Juarez Active LAMICTAL 200 MG ORAL TABS 1 BY MOUTH TWICE A DAY LAMOTRIGINE 49903764270 Active Marianelachandrika Juarez Active LAMICTAL 100 MG TABS by mouth twice a day LAMOTRIGINE 83553942519 No Longer Active Marianelachandrika Juarez Active LAMICTAL 150 MG TABS by mouth twice a day LAMOTRIGINE 86352920904 No Longer Active Marianelachandrika Juarez Active DILANTIN 100 MG CAPS Take three by mouth daily PHENYTOIN SODIUM EXTENDED 65908180988 No Longer Active Marianela Juarez Active SENOKOT 8.6 MG TABS take at bedtime SENNOSIDES 54992441615 Active Glenn Thornton MD Active LIPITOR 20 MG TABS take at bedtime ATORVASTATIN CALCIUM 47220470439 Active Glenn Thornton MD Active LISINOPRIL 2.5 MG TABS Take one by mouth daily LISINOPRIL 06853224115 Active Glenn Thornton MD Active TRENTAL 400 MG CR-TABS by mouth twice a day PENTOXIFYLLINE 47741917446 Active Glenn Thornton MD Active KLOR-CON 10 10 MEQ CR-TABS Take one by mouth daily POTASSIUM CHLORIDE 50014513825 Active Glenn Thornton MD Active DILANTIN 100 MG CAPS Take three by mouth daily DILANTIN 100 MG CAPS 899557 PHENYTOIN SODIUM EXTENDED Inactive LAMICTAL 150 MG TABS by mouth twice a day LAMICTAL 150 MG TABS 19831025 LAMOTRIGINE Inactive LAMICTAL 100 MG TABS by mouth twice a day LAMICTAL 100 MG TABS 19831024 LAMOTRIGINE Inactive DEPAKOTE SPRINKLES 125 MG CPSP 4 capsules by mouth twice daily DEPAKOTE SPRINKLES 125 MG CPSP 5263403 DIVALPROEX SODIUM Inactive DILANTIN 100 MG CAPS Take one by mouth daily DILANTIN 100 MG CAPS 973363 PHENYTOIN SODIUM EXTENDED Inactive INVEGA 6 MG ORAL [id number] 1 TAB ONCE DAILY INVEGA 6 MG ORAL [id number] PALIPERIDONE Inactive TYLENOL 325 MG TAB 1-2 pills by mouth every 6 hours if needed for pain/fever TYLENOL 325 MG TAB 562079 ACETAMINOPHEN Inactive ZOFRAN 4 MG TABS 1 po q6hr PRN Nausea ZOFRAN 4 MG TABS 915061 ONDANSETRON HCL Inactive ADULT ASPIRIN EC LOW STRENGTH 81 MG TBEC Take one by mouth daily ADULT ASPIRIN EC LOW STRENGTH 81 MG TBEC 950323 ASPIRIN Inactive FUROSEMIDE 40 MG TABS Take one by mouth daily FUROSEMIDE 40 MG TABS 376878 FUROSEMIDE Inactive IPRATROPIUM-ALBUTEROL 0.5-2.5 (3) MG/3ML SOLN 1 neb treatment four times daily , for cough IPRATROPIUM-ALBUTEROL 0.5-2.5 (3) MG/3ML SOLN 2255796 IPRATROPIUM-ALBUTEROL Inactive Advance Directives Directive Description Start Date DURABLE POWER OF MAGENTO DEVELOPER FOR HEALTHCARE PERMISSION TO SHARE ADVANCED DIRECTIVE [...] mg/dL Encounters Code Encounter Date Provider Facility CPT-88577 Level 3 Est. Patient 11:51:35 [employer] Rick Henson DO [facility] CPT-09508 Level 3 Est. Patient 12:13:33 [employer] Erik Baptiste MD [facility] CPT-02376 Level 3 Est. Patient 09:40:44 [employer] Jaycee Garcia [facility] CPT-47900 Level 3 Est. Patient 09:36:32 [employer] Jaycee Garcia [facility] CPT-30801 Level 4 Est. Patient 16:57:02 [employer] Pelon Quach MD [facility] CPT-54864 Level 4 Est. Patient 22:19:34 CDT Pelon Quach MD [facility] CPT-15574 Level 3 Est. Patient 00:34:41 CDT Pelon Quach MD [facility] CPT-92959 Level 4 Est. Patient 11:19:14 CDT Pelon Quach MD [facility] CPT-01497 Level 4 Est. Patient 16:43:30 [employer] Pelon Quach MD [facility] CPT-14462 Level 4 Est. Patient 12:42:18 CDT Pelon Quach MD [facility] CPT-97070 Level 4 Est. Patient 11:52:20 CDT Pelon Quach MD [facility] CPT-49402 Level 4 Est. Patient 13:59:46 CDT Pelon Quach MD [facility] CPT-36525 Level 4 Est. Patient 15:10:48 CDT Pelon Quach MD [facility] CPT-09816 Level 4 Est. Patient 17:13:06 CDT Pelon Quach MD [facility] CPT-38690 Level 4 Est. Patient 18:47:47 CDT Pelon Quach MD [facility] CPT-94855 Level 3 Est. Patient 21:01:27 CDT Pelon Quach MD [facility] CPT-61961 Level 3 Est. Patient 14:07:03 CDT Taty Alvarado MD PhD [facility] CPT-43583 Level 3 New Patient 21:39:52 [employer] Pelon Quach MD [facility] CPT-44969 Level 3 Est. Patient 14:28:44 CDT Glenn Thornton MD [facility] CPT-98042 Level 3 Est. Patient 16:35:00 CDT Glenn Thornton MD [facility] CPT-56448 Level 4 New Patient 17:06:27 CDT Glenn Thornton MD [facility] Procedures Code Procedure Name Date Entry Date Standard Description CPT-60264 Chest 2V Frontal and Lat - XRAY USE ONLY 11:56:13 [employer] CPT-34741 Cystoscopy 14:28:44 CDT CPT-94532 Bladder Scan 14:28:44 CDT CPT-05471 Indwelling Cath Change 17:06:27 CDT CPT-70814 Cystoscopy 17:06:27 CDT
--- OUTSIDE RECORDS SUMMARY | 2018-06-22 12:20 | XMS REPORT | Clinical Summary ---
Author Author Admin, ONESIMO Organization [facility] [employer] Address Unknown Phone Unavailable Allergies, Adverse Reactions, [...] TABS 1 twice a day SULFAMETHOXAZOLE- TRIMETHOPRIM 96709989689 Active Erik Baptiste MD Active IPRATROPIUM-ALBUTEROL 0.5-2.5 (3) MG/3ML INH SOLN 1 neb treatment QID for cough Dx: J06.9 IPRATROPIUM-ALBUTEROL 75015415068 Active Jaycee Garcia APRN Active IPRATROPIUM-ALBUTEROL 0.5-2.5 (3) MG/3ML SOLN 1 neb treatment four times daily , for cough IPRATROPIUM-ALBUTEROL 04496150847 No Longer Active Jaycee Garcia APRN Active TYLENOL 8 HOUR 650 MG ORAL CR-TABS Take 1 tab po up to 3 times daily as needed ACETAMINOPHEN 80044800937 Active Jaycee Jose NATURAL GAS INSPECTOR Active FUROSEMIDE 40 MG TABS Take one by mouth daily FUROSEMIDE 24715177345 No Longer Active Jaycee Garcia VICTORINO Active LANTUS 100 UNIT/ML SC SOLN 20 SUBQ AT HS INSULIN GLARGINE 32386310906 Active Jaycee Jose NATURAL GAS INSPECTOR Active LAMICTAL 25 MG ORAL TABS 2 tabs po BID for convulsions LAMOTRIGINE 73735082277 Active Jaycee Garcia VICTORINO Active INVEGA 6 MG ORAL [id number] 1 po daily for Schizophrenia PALIPERIDONE 44125618648 Active Jaycee Garcia VICTORINO Active LASIX 20 MG TAB 1 tablet by mouth every morning for edema FUROSEMIDE 84559961776 Active Jayceehugo Garcia APRN Active BUSPIRONE HCL 10 MG TABS 1 tab by mouth BID BUSPIRONE HCL 93004252383 Active Jaycee Garcia VICTORINO Active NOVOLOG 100 UNIT/ML SC SOLN 10 UNITS BEFORE SUPPER INSULIN ASPART 21991461289 Active Jaycee Garcia VICTORINO Active NOVOLOG 100 UNIT/ML SC SOLN 10 UNITS BID BEFORE BREAKFAST AND LUNCH INSULIN ASPART 38227671633 Active Jaycee Garcia VICTORINO Active LAMICTAL 25 MG TABS 2 tabs by mouth twice a day LAMOTRIGINE 80166275122 Active Pelon Quach MD Active ADULT ASPIRIN EC LOW STRENGTH 81 MG TBEC Take one by mouth daily ASPIRIN 26723358042 No Longer Active Pelon Quach MD Active ASPIRIN 81 MG ORAL TABS 1 po qd ASPIRIN 67062526017 Active Pelon Quach MD Active ZOFRAN 4 MG TABS 1 po q6hr PRN Nausea ONDANSETRON HCL 73791317632 No Longer Active Pelon Quach MD Active TYLENOL 325 MG TAB 1-2 pills by mouth every 6 hours if needed for pain/fever ACETAMINOPHEN 05557009560 No Longer Active Pelon Quach MD Active INVEGA 6 MG ORAL [id number] 1 TAB ONCE DAILY PALIPERIDONE 58065637365 No Longer Active Carly Suggs Active TEGRETOL 200 MG TABS by mouth twice a day CARBAMAZEPINE 42774737312 Active Taty Alvarado MD PhD Active FLOMAX 0.4 MG CAPS 1 Daily TAMSULOSIN HCL 48505583316 Active Marianelachandrika Juarez Active DILANTIN 100 MG CAPS Take one by mouth daily PHENYTOIN SODIUM EXTENDED 62695397813 No Longer Active Marianelachandrika Juarez Active DEPAKOTE SPRINKLES 125 MG CPSP 4 capsules by mouth twice daily DIVALPROEX SODIUM 47466420657 No Longer Active Marianelachandrika Juarez Active LAMICTAL 200 MG ORAL TABS 1 BY MOUTH TWICE A DAY LAMOTRIGINE 90398683694 Active Marianelachandrika Juarez Active LAMICTAL 100 MG TABS by mouth twice a day LAMOTRIGINE 87655907606 No Longer Active Marianelachandrika Juarez Active LAMICTAL 150 MG TABS by mouth twice a day LAMOTRIGINE 04472191719 No Longer Active Marianelachandrika Juarez Active DILANTIN 100 MG CAPS Take three by mouth daily PHENYTOIN SODIUM EXTENDED 25538693830 No Longer Active Marianela Juarez Active SENOKOT 8.6 MG TABS take at bedtime SENNOSIDES 89888608902 Active Glenn Thornton MD Active LIPITOR 20 MG TABS take at bedtime ATORVASTATIN CALCIUM 74622622796 Active Glenn Thornton MD Active LISINOPRIL 2.5 MG TABS Take one by mouth daily LISINOPRIL 95391975948 Active Glenn Thornton MD Active TRENTAL 400 MG CR-TABS by mouth twice a day PENTOXIFYLLINE 46084820531 Active Glenn Thornton MD Active KLOR-CON 10 10 MEQ CR-TABS Take one by mouth daily POTASSIUM CHLORIDE 85441992012 Active Glenn Thornton MD Active DILANTIN 100 MG CAPS Take three by mouth daily DILANTIN 100 MG CAPS 245544 PHENYTOIN SODIUM EXTENDED Inactive LAMICTAL 150 MG TABS by mouth twice a day LAMICTAL 150 MG TABS 19831025 LAMOTRIGINE Inactive LAMICTAL 100 MG TABS by mouth twice a day LAMICTAL 100 MG TABS 19831024 LAMOTRIGINE Inactive DEPAKOTE SPRINKLES 125 MG CPSP 4 capsules by mouth twice daily DEPAKOTE SPRINKLES 125 MG CPSP 4156927 DIVALPROEX SODIUM Inactive DILANTIN 100 MG CAPS Take one by mouth daily DILANTIN 100 MG CAPS 817839 PHENYTOIN SODIUM EXTENDED Inactive INVEGA 6 MG ORAL [id number] 1 TAB ONCE DAILY INVEGA 6 MG ORAL [id number] PALIPERIDONE Inactive TYLENOL 325 MG TAB 1-2 pills by mouth every 6 hours if needed for pain/fever TYLENOL 325 MG TAB 925602 ACETAMINOPHEN Inactive ZOFRAN 4 MG TABS 1 po q6hr PRN Nausea ZOFRAN 4 MG TABS 242547 ONDANSETRON HCL Inactive ADULT ASPIRIN EC LOW STRENGTH 81 MG TBEC Take one by mouth daily ADULT ASPIRIN EC LOW STRENGTH 81 MG TBEC 911948 ASPIRIN Inactive FUROSEMIDE 40 MG TABS Take one by mouth daily FUROSEMIDE 40 MG TABS 297826 FUROSEMIDE Inactive IPRATROPIUM-ALBUTEROL 0.5-2.5 (3) MG/3ML SOLN 1 neb treatment four times daily , for cough IPRATROPIUM-ALBUTEROL 0.5-2.5 (3) MG/3ML SOLN 3275982 IPRATROPIUM-ALBUTEROL Inactive Advance Directives Directive Description Start Date DURABLE POWER OF BACKUP OPERATOR FOR HEALTHCARE PERMISSION TO SHARE ADVANCED [...] mg/dL Encounters Code Encounter Date Provider Facility CPT-85955 Level 3 Est. Patient 11:51:35 RANGE AIDE Rick Henson DO [facility] CPT-74017 Level 3 Est. Patient 12:13:33 RANGE AIDE Erik Baptiste MD [facility] CPT-70959 Level 3 Est. Patient 09:40:44 RANGE AIDE Jaycee Garcia [facility] CPT-55880 Level 3 Est. Patient 09:36:32 RANGE AIDE Jaycee Garcia [facility] CPT-69319 Level 4 Est. Patient 16:57:02 RANGE AIDE Pelon Quach MD [facility] CPT-76096 Level 4 Est. Patient 22:19:34 CDT Pelon Quach MD [facility] CPT-07130 Level 3 Est. Patient 00:34:41 CDT Pelon Quach MD [facility] CPT-02585 Level 4 Est. Patient 11:19:14 CDT Pelon Quach MD [facility] CPT-58132 Level 4 Est. Patient 16:43:30 RANGE AIDE Pelon Quach MD [facility] CPT-27433 Level 4 Est. Patient 12:42:18 CDT Pelon Quach MD [facility] CPT-65533 Level 4 Est. Patient 11:52:20 CDT Pelon Quach MD [facility] CPT-45806 Level 4 Est. Patient 13:59:46 CDT Pelon Quach MD [facility] CPT-25581 Level 4 Est. Patient 15:10:48 CDT Pelon Quach MD [facility] CPT-02244 Level 4 Est. Patient 17:13:06 CDT Pelon Quach MD [facility] CPT-20998 Level 4 Est. Patient 18:47:47 CDT Pelon Quach MD [facility] CPT-33366 Level 3 Est. Patient 21:01:27 CDT Pelon Quach MD [facility] CPT-79418 Level 3 Est. Patient 14:07:03 CDT Taty Alvarado MD PhD [facility] CPT-86500 Level 3 New Patient 21:39:52 RANGE AIDE Pelon Quach MD [facility] CPT-86903 Level 3 Est. Patient 14:28:44 CDT Glenn Thornton MD [facility] CPT-92073 Level 3 Est. Patient 16:35:00 CDT Glenn Thornton MD [facility] CPT-29110 Level 4 New Patient 17:06:27 CDT Glenn Thornton MD [facility] Procedures Code Procedure Name Date Entry Date Standard Description CPT-23307 Chest 2V Frontal and Lat - XRAY USE ONLY 11:56:13 RANGE AIDE CPT-95676 Cystoscopy 14:28:44 CDT CPT-30504 Bladder Scan 14:28:44 CDT CPT-43716 Indwelling Cath Change 17:06:27 CDT CPT-37069 Cystoscopy 17:06:27 CDT
--- OUTSIDE RECORDS SUMMARY | 2018-06-22 12:21 | XMS REPORT | Clinical Summary ---
Author Author Admin, ONESIMO Organization [facility] [employer] Address Unknown Phone Unavailable Allergies, Adverse [...] four times daily , for cough IPRATROPIUM-ALBUTEROL 16905640320 Active Jaycee Garcia APRN Active TYLENOL 8 HOUR 650 MG ORAL CR-TABS Take 1 tab po up to 3 times daily as needed ACETAMINOPHEN 03136777902 Active Jaycee Garcia APRN Active FUROSEMIDE 40 MG TABS Take one by mouth daily FUROSEMIDE 85426904540 No Longer Active Jaycee Garcia APRN Active LANTUS 100 UNIT/ML SC SOLN 20 SUBQ AT HS INSULIN GLARGINE 89133403443 Active Jaycee Garcia APRN Active LAMICTAL 25 MG ORAL TABS 2 tabs po BID for convulsions LAMOTRIGINE 83608326647 Active Jaycee Garcia APRN Active INVEGA 6 MG ORAL [id number] 1 po daily for Schizophrenia PALIPERIDONE 69604475659 Active Jaycee Garcia APRN Active LASIX 20 MG TAB 1 tablet by mouth every morning for edema FUROSEMIDE 91486402480 Active Jaycee Jose HVAC 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 BUSPIRONE HCL 10 MG TABS 1 tab by mouth BID BUSPIRONE HCL 91173991080 Active Jaycee Garcia APRN Active NOVOLOG 100 UNIT/ML SC SOLN 10 UNITS BEFORE SUPPER INSULIN ASPART 52015596396 Active Jaycee Garcia HVAC 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 NOVOLOG 100 UNIT/ML SC SOLN 10 UNITS BID BEFORE BREAKFAST AND LUNCH INSULIN ASPART 65419349949 Active Jaycee Garcia APRN Active LAMICTAL 25 MG TABS 2 tabs by mouth twice a day LAMOTRIGINE 60931888617 Active Pelon Quach MD Active ADULT ASPIRIN EC LOW STRENGTH 81 MG TBEC Take one by mouth daily ASPIRIN 34286523223 No Longer Active Pelon Quach MD Active ASPIRIN 81 MG ORAL TABS 1 po qd ASPIRIN 28574644399 Active Pelon Quach MD Active ZOFRAN 4 MG TABS 1 po q6hr PRN Nausea ONDANSETRON HCL 36459950699 No Longer Active Pelon Quach MD Active TYLENOL 325 MG TAB 1-2 pills by mouth every 6 hours if needed for pain/fever ACETAMINOPHEN 95521729083 No Longer Active Pelon Quach MD Active INVEGA 6 MG ORAL [id number] 1 TAB ONCE DAILY PALIPERIDONE 88963981063 No Longer Active Carly Suggs Active TEGRETOL 200 MG TABS by mouth twice a day CARBAMAZEPINE 32234242499 Active Taty Alvarado MD PhD Active FLOMAX 0.4 MG CAPS 1 Daily TAMSULOSIN HCL 64622498298 Active Marianelachandrika Juarez Active DILANTIN 100 MG CAPS Take one by mouth daily PHENYTOIN SODIUM EXTENDED 29333559855 No Longer Active Marianela Juarez Active DEPAKOTE SPRINKLES 125 MG CPSP 4 capsules by mouth twice daily DIVALPROEX SODIUM 91251664249 No Longer Active Marianelachandrika Juarez Active LAMICTAL 200 MG ORAL TABS 1 BY MOUTH TWICE A DAY LAMOTRIGINE 16359149970 Active Marianela Juarez Active LAMICTAL 100 MG TABS by mouth twice a day LAMOTRIGINE 18789435303 No Longer Active Marianela Juarez Active LAMICTAL 150 MG TABS by mouth twice a day LAMOTRIGINE 18449749017 No Longer Active Marianela Juarez Active DILANTIN 100 MG CAPS Take three by mouth daily PHENYTOIN SODIUM EXTENDED 93568992140 No Longer Active Marianela Juarez Active SENOKOT 8.6 MG TABS take at bedtime SENNOSIDES 53583403584 Active Glenn Thornton MD Active LIPITOR 20 MG TABS take at bedtime ATORVASTATIN CALCIUM 51317979893 Active Glenn Thornton MD Active LISINOPRIL 2.5 MG TABS Take one by mouth daily LISINOPRIL 34616650606 Active Glenn Thornton MD Active TRENTAL 400 MG CR-TABS by mouth twice a day PENTOXIFYLLINE 95448073253 Active Glenn Thornton MD Active KLOR-CON 10 10 MEQ CR-TABS Take one by mouth daily POTASSIUM CHLORIDE 22962386244 Active Glenn Thornton MD Active DILANTIN 100 MG CAPS Take three by mouth daily DILANTIN 100 MG CAPS 481525 PHENYTOIN SODIUM EXTENDED Inactive LAMICTAL 150 MG TABS by mouth twice a day LAMICTAL 150 MG TABS 19831025 LAMOTRIGINE Inactive LAMICTAL 100 MG TABS by mouth twice a day LAMICTAL 100 MG TABS 19831024 LAMOTRIGINE Inactive DEPAKOTE SPRINKLES 125 MG CPSP 4 capsules by mouth twice daily DEPAKOTE SPRINKLES 125 MG CPSP 6933828 DIVALPROEX SODIUM Inactive DILANTIN 100 MG CAPS Take one by mouth daily DILANTIN 100 MG CAPS 839477 PHENYTOIN SODIUM EXTENDED Inactive INVEGA 6 MG ORAL [id number] 1 TAB ONCE DAILY INVEGA 6 MG ORAL [id number] PALIPERIDONE Inactive TYLENOL 325 MG TAB 1-2 pills by mouth every 6 hours if needed for pain/fever TYLENOL 325 MG TAB 723624 ACETAMINOPHEN Inactive ZOFRAN 4 MG TABS 1 po q6hr PRN Nausea ZOFRAN 4 MG TABS 826319 ONDANSETRON HCL Inactive ADULT ASPIRIN EC LOW STRENGTH 81 MG TBEC Take one by mouth daily ADULT ASPIRIN EC LOW STRENGTH 81 MG TBEC 868897 ASPIRIN Inactive FUROSEMIDE 40 MG TABS Take one by mouth daily FUROSEMIDE 40 MG TABS 285865 FUROSEMIDE Inactive Advance Directives Directive Description Start Date DURABLE POWER OF ROUGHER HELPER FOR HEALTHCARE PERMISSION TO SHARE ADVANCED DIRECTIVE [...] mg/dL Encounters Code Encounter Date Provider Facility CPT-26373 Level 3 Est. Patient 09:40:44 REHABILITATION ENGINEER Jaycee Garcia [facility] CPT-57017 Level 3 Est. Patient 09:36:32 REHABILITATION ENGINEER Jaycee Garcia [facility] CPT-15743 Level 4 Est. Patient 16:57:02 REHABILITATION ENGINEER Pelon Quach MD [facility] CPT-30771 Level 4 Est. Patient 22:19:34 CDT Pelon Quach MD [facility] CPT-46123 Level 3 Est. Patient 00:34:41 CDT Pelon Quach MD [facility] CPT-36183 Level 4 Est. Patient 11:19:14 CDT Pelon Quach MD [facility] CPT-16616 Level 4 Est. Patient 16:43:30 REHABILITATION ENGINEER Pelon Quach MD [facility] CPT-15482 Level 4 Est. Patient 12:42:18 CDT Pelon Quach MD [facility] CPT-51788 Level 4 Est. Patient 11:52:20 CDT Pelon Quach MD [facility] CPT-88701 Level 4 Est. Patient 13:59:46 CDT Pelon Quach MD [facility] CPT-17894 Level 4 Est. Patient 15:10:48 CDT Pelon Quach MD [facility] CPT-56122 Level 4 Est. Patient 17:13:06 CDT Pelon Quach MD [facility] CPT-70771 Level 4 Est. Patient 18:47:47 CDT Pelon Quach MD [facility] CPT-94056 Level 3 Est. Patient 21:01:27 CDT Pelon Quach MD [facility] CPT-29118 Level 3 Est. Patient 14:07:03 CDT Taty Alvarado MD PhD [facility] CPT-80250 Level 3 New Patient 21:39:52 REHABILITATION ENGINEER Pelon Quach MD [facility] CPT-45131 Level 3 Est. Patient 14:28:44 CDT Glenn Thornton MD [facility] CPT-78809 Level 3 Est. Patient 16:35:00 CDT Glenn Thornton MD [facility] CPT-71076 Level 4 New Patient 17:06:27 CDT Glenn Thornton MD [facility] Procedures Code Procedure Name Date Entry Date Standard Description CPT-98373 Cystoscopy 14:28:44 CDT CPT-76993 Bladder Scan 14:28:44 CDT CPT-34480 Indwelling Cath Change 17:06:27 CDT CPT-03156 Cystoscopy 17:06:27 CDT
--- OUTSIDE RECORDS SUMMARY | 2018-06-22 12:22 | XMS REPORT | Clinical Summary ---
Author Author Admin, ONESIMO Organization [facility] [employer] Address Unknown Phone Unavailable Allergies, Adverse Reactions, [...] respiratory abnormality Preventive health care V70.0 Active Pelno Quach MD Routine general medical examination at a health care facility Atrial fibrillation 427.31 Active Pelon Quach MD Atrial fibrillation URI - acute ICD-465.9 Inactive Erik Baptiste MD URI - acute ICD-465.9 Inactive Erik Baptiste MD Medication List Medication Instructions Start Date Stop Date Generic Name NDC Status Provider Patient Instruction BACTRIM DS 800-160 MG TABS 1 twice a day SULFAMETHOXAZOLE-TRIMETHOPRIM 81820917263 No Longer Active Pelon Quach MD Active IPRATROPIUM-ALBUTEROL 0.5-2.5 (3) MG/3ML INH SOLN 1 neb treatment QID for cough Dx: J06.9 IPRATROPIUM-ALBUTEROL 07252179392 Active Jaycee Garcia APRN Active IPRATROPIUM-ALBUTEROL 0.5-2.5 (3) MG/3ML SOLN 1 neb treatment four times daily , for cough IPRATROPIUM-ALBUTEROL 30032528932 No Longer Active Jaycee Jose VICTORINO Active TYLENOL 8 HOUR 650 MG ORAL CR-TABS Take 1 tab po up to 3 times daily as needed ACETAMINOPHEN 60551198207 Active Jaycee Garcia APRN Active FUROSEMIDE 40 MG TABS Take one by mouth daily FUROSEMIDE 59103489076 No Longer Active Jaycee Jose VICTORINO Active LANTUS 100 UNIT/ML SC SOLN 20 SUBQ AT HS INSULIN GLARGINE 67028727548 Active Jaycee Garcia APRN Active LAMICTAL 25 MG ORAL TABS 2 tabs po BID for convulsions LAMOTRIGINE 13711883915 Active Jaycee Garcia APRN Active INVEGA 6 MG ORAL [id number] 1 po daily for Schizophrenia PALIPERIDONE 54012325281 Active Jaycee Garcia APRN Active LASIX 20 MG TAB 1 tablet by mouth every morning for edema FUROSEMIDE 01073486978 Active Jaycee Garcia APRN Active BUSPIRONE HCL 10 MG TABS 1 tab by mouth BID BUSPIRONE HCL 25676160743 Active Jaycee Jose VICTORINO Active NOVOLOG 100 UNIT/ML SC SOLN 10 UNITS BEFORE SUPPER INSULIN ASPART 72163664484 Active Jaycee Garcia APRN Active NOVOLOG 100 UNIT/ML SC SOLN 10 UNITS BID BEFORE BREAKFAST AND LUNCH INSULIN ASPART 93285204801 Active Jaycee Garcia APRN Active LAMICTAL 25 MG TABS 2 tabs by mouth twice a day LAMOTRIGINE 47690831930 Active Pelon Quach MD Active ADULT ASPIRIN EC LOW STRENGTH 81 MG TBEC Take one by mouth daily ASPIRIN 34525529430 No Longer Active Pelon Quach MD Active ASPIRIN 81 MG ORAL TABS 1 po qd ASPIRIN 22295762747 Active Pelon Quach MD Active ZOFRAN 4 MG TABS 1 po q6hr PRN Nausea ONDANSETRON HCL 84593056266 No Longer Active Pelon Quach MD Active TYLENOL 325 MG TAB 1-2 pills by mouth every 6 hours if needed for pain/fever ACETAMINOPHEN 60013640349 No Longer Active Pelon Quach MD Active INVEGA 6 MG ORAL [id number] 1 TAB ONCE DAILY PALIPERIDONE 57723604424 No Longer Active Carly Suggs Active TEGRETOL 200 MG TABS by mouth twice a day CARBAMAZEPINE 16057666811 Active Taty Alvarado MD PhD Active FLOMAX 0.4 MG CAPS 1 Daily TAMSULOSIN HCL 91517008991 Active Marianelachandrika Juarez Active DILANTIN 100 MG CAPS Take one by mouth daily PHENYTOIN SODIUM EXTENDED 87950304706 No Longer Active Marianelachandrika Shankarronny Active DEPAKOTE SPRINKLES 125 MG CPSP 4 capsules by mouth twice daily DIVALPROEX SODIUM 87739420347 No Longer Active Marianelachandrika Shankarida Active LAMICTAL 200 MG ORAL TABS 1 BY MOUTH TWICE A DAY LAMOTRIGINE 83155951068 Active Mairanela Raida Active LAMICTAL 100 MG TABS by mouth twice a day LAMOTRIGINE 59224289014 No Longer Active Marianela Raida Active LAMICTAL 150 MG TABS by mouth twice a day LAMOTRIGINE 85023218859 No Longer Active Marianelachandrika Juarez Active DILANTIN 100 MG CAPS Take three by mouth daily PHENYTOIN SODIUM EXTENDED 19049319747 No Longer Active Marianelachandrika Shankarida Active SENOKOT 8.6 MG TABS take at bedtime SENNOSIDES 16648460733 Active Glenn Thornton MD Active LIPITOR 20 MG TABS take at bedtime ATORVASTATIN CALCIUM 15910380256 Active Glenn Thornton MD Active LISINOPRIL 2.5 MG TABS Take one by mouth daily LISINOPRIL 41204396774 Active Glenn Thornton MD Active TRENTAL 400 MG CR-TABS by mouth twice a day PENTOXIFYLLINE 37555128832 Active Glenn Thornton MD Active KLOR-CON 10 10 MEQ CR-TABS Take one by mouth daily POTASSIUM CHLORIDE 97136280688 Active J Ian Thornton MD Active DILANTIN 100 MG CAPS Take three by mouth daily DILANTIN 100 MG CAPS 001893 PHENYTOIN SODIUM EXTENDED Inactive LAMICTAL 150 MG TABS by mouth twice a day LAMICTAL 150 MG TABS 19831025 LAMOTRIGINE Inactive LAMICTAL 100 MG TABS by mouth twice a day LAMICTAL 100 MG TABS 19831024 LAMOTRIGINE Inactive DEPAKOTE SPRINKLES 125 MG CPSP 4 capsules by mouth twice daily DEPAKOTE SPRINKLES 125 MG CPSP 6300173 DIVALPROEX SODIUM Inactive DILANTIN 100 MG CAPS Take one by mouth daily DILANTIN 100 MG CAPS 034603 PHENYTOIN SODIUM EXTENDED Inactive INVEGA 6 MG ORAL [id number] 1 TAB ONCE DAILY INVEGA 6 MG ORAL [id number] PALIPERIDONE Inactive TYLENOL 325 MG TAB 1-2 pills by mouth every 6 hours if needed for pain/fever TYLENOL 325 MG TAB 359315 ACETAMINOPHEN Inactive ZOFRAN 4 MG TABS 1 po q6hr PRN Nausea ZOFRAN 4 MG TABS 989651 ONDANSETRON HCL Inactive ADULT ASPIRIN EC LOW STRENGTH 81 MG TBEC Take one by mouth daily ADULT ASPIRIN EC LOW STRENGTH 81 MG TBEC 852699 ASPIRIN Inactive FUROSEMIDE 40 MG TABS Take one by mouth daily FUROSEMIDE 40 MG TABS 559505 FUROSEMIDE Inactive BACTRIM DS 800-160 MG TABS 1 twice a day BACTRIM DS 800-160 MG TABS 064356 SULFAMETHOXAZOLE-TRIMETHOPRIM Inactive IPRATROPIUM-ALBUTEROL 0.5-2.5 (3) MG/3ML SOLN 1 neb treatment four times daily , for cough IPRATROPIUM-ALBUTEROL 0.5-2.5 (3) MG/3ML SOLN 5281324 IPRATROPIUM-ALBUTEROL Inactive Advance Directives Directive Description Start Date DURABLE POWER OF SEASONAL RECRUITER FOR HEALTHCARE PERMISSION TO SHARE ADVANCED DIRECTIVE [...] mg/dL Encounters Code Encounter Date Provider Facility CPT-45227 Level 4 Est. Patient 09:30:54 CDT Pelon Quach MD [facility] CPT-21908 Level 4 Est. Patient 14:34:25 CDT Pelon Quach MD [facility] CPT-82150 Level 3 Est. Patient 11:51:35 INSURANCE CLAIMS CLERK Rick Henson DO [facility] CPT-56209 Level 3 Est. Patient 12:13:33 INSURANCE CLAIMS CLERK Erik Baptiste MD [facility] CPT-01200 Level 3 Est. Patient 09:40:44 INSURANCE CLAIMS CLERK Jaycee Garcia [facility] CPT-98974 Level 3 Est. Patient 09:36:32 INSURANCE CLAIMS CLERK Jaycee Garcia [facility] CPT-93441 Level 4 Est. Patient 16:57:02 INSURANCE CLAIMS CLERK Pelon Quach MD [facility]-84533 Level 4 Est. Patient 22:19:34 CDT Pelon Quach MD [facility]-19597 Level 3 Est. Patient 00:34:41 CDT Pelon Quach MD [facility]-79948 Level 4 Est. Patient 11:19:14 CDT Pelon Quach MD [facility]-02510 Level 4 Est. Patient 16:43:30 INSURANCE CLAIMS CLERK Pelon Quach MD [facility]-21623 Level 4 Est. Patient 12:42:18 CDT Pelon Quach MD [facility]-00171 Level 4 Est. Patient 11:52:20 CDT Pelon Quach MD [facility]-64766 Level 4 Est. Patient 13:59:46 CDT Pelon Quach MD [facility]-87763 Level 4 Est. Patient 15:10:48 CDT Pelon Quach MD [facility]-14819 Level 4 Est. Patient 17:13:06 CDT Pelon Quach MD [facility]-61726 Level 4 Est. Patient 18:47:47 CDT Pelon Quach MD [facility]-63425 Level 3 Est. Patient 21:01:27 CDT Pelon Quach MD [facility] CPT-98678 Level 3 Est. Patient 14:07:03 CDT Taty Alvarado MD PhD [facility] CPT-90185 Level 3 New Patient 21:39:52 INSURANCE CLAIMS CLERK Pelon Quach MD [facility]-02077 Level 3 Est. Patient 14:28:44 CDT Glenn Thornton MD [facility]-49978 Level 3 Est. Patient 16:35:00 CDT Glenn Thornton MD [facility] CPT-87715 Level 4 New Patient 17:06:27 CDT Glenn Thornton MD [facility] Procedures Code Procedure Name Date Entry Date Standard Description CPT-G0438 Initial Annual Wellness Exam 09:30:54 CDT CPT-60710 Prevnar 13 Intramuscular Suspension 14:34:25 CDT 12/27 CPT-84384 Chest 2V Frontal and Lat - XRAY USE ONLY 11:56:13 INSURANCE CLAIMS CLERK CPT-88973 Cystoscopy 14:28:44 CDT CPT-14506 Bladder Scan 14:28:44 CDT CPT-80974 Indwelling Cath Change 17:06:27 CDT CPT-36408 Cystoscopy 17:06:27 CDT
--- OUTSIDE RECORDS SUMMARY | 2018-06-22 12:22 | XMS REPORT | Clinical Summary ---
Author Author Admin, ONESIMO Organization [facility] [employer] [place] Address Unknown Phone Unavailable Allergies, Adverse Reactions, [...] and insulin admin Dx: E11.9 ALCOHOL SWABS [id number] Active Jaycee Torrez APRN Active HUMALOG KWIKPEN 100 UNIT/ML SUBCUTANEOUS SOLUTION PEN-INJECTOR inject 10 units subcutaneously before meals also sliding scale INSULIN LISPRO 76626640584 Active NICOLETTE Hitchcock Active NOVOLOG 100 UNIT/ML SUBCUTANEOUS SOLUTION 10 UNITS BID BEFORE BREAKFAST AND LUNCH INSULIN ASPART 83732675841 No Longer Active NICOLETTE Hitchcock Active NOVOLOG 100 UNIT/ML SUBCUTANEOUS SOLUTION 10 UNITS BEFORE SUPPER INSULIN ASPART 97718591478 No Longer Active NICOLETTE Hitchcock Active INVEGA 6 MG ORAL TABLET EXTENDED RELEASE 24 HOUR 1 po daily for schizophrenia PALIPERIDONE 85706304765 Active Pelon Quach MD Active LAMICTAL 25 MG ORAL TABLET 2 tabs by mouth twice a day LAMOTRIGINE 90694408808 No Longer Active Pelon Quach MD Active BACTROBAN 2 % EXTERNAL OINTMENT Apply to affected area BID 06/28 MUPIROCIN 93113141692 No Longer Active Pelon Quach MD Active BANOPHEN 25 MG ORAL TABLET 1 po every 6 hours PRN allergic reaction DIPHENHYDRAMINE HCL 98810311341 Active NICOLETTE Hitchcock Active INVEGA 6 MG ORAL TABLET EXTENDED RELEASE 24 HOUR 1 po daily for Schizophrenia PALIPERIDONE 41131408879 No Longer Active Pelon Quach MD Active TYLENOL 8 HOUR 650 MG ORAL TABLET EXTENDED RELEASE Take 1 tab po up to 3 times daily as needed ACETAMINOPHEN 62787326312 No Longer Active Pelon Quach MD Active IPRATROPIUM-ALBUTEROL 0.5-2.5 (3) MG/3ML INHALATION SOLUTION 1 neb treatment QID for cough Dx: J06.9 IPRATROPIUM-ALBUTEROL 39396684364 No Longer Active Pelon Quach MD Active BACTRIM DS 800-160 MG ORAL TABLET 1 tab by mouth twice daily 2016 TRIMETHOPRIM-SULFAMETHOXAZOLE 09331150793 No Longer Active Pelon Quach MD Active BACTRIM DS 800-160 MG ORAL TABLET 1 twice a day SULFAMETHOXAZOLE-TRIMETHOPRIM 66347425673 No Longer Active Pelon Quach MD Active IPRATROPIUM-ALBUTEROL 0.5-2.5 (3) MG/3ML INHALATION SOLUTION 1 neb treatment four times daily, for cough IPRATROPIUM-ALBUTEROL 62568837120 No Longer Active Jaycee Torrez APRN Active FUROSEMIDE 40 MG ORAL TABLET Take one by mouth daily FUROSEMIDE 48154705507 No Longer Active Jaycee Torrez APRN Active LANTUS 100 UNIT/ML SUBCUTANEOUS SOLUTION 20 SUBQ AT HS INSULIN GLARGINE 26728661587 Active Pelon Quach MD Active LAMICTAL 25 MG ORAL TABLET 2 tabs po BID for convulsions LAMOTRIGINE 10231410361 Active Jaycee Torrez APRN Active LASIX 20 MG ORAL TABLET 1 tablet by mouth every morning for edema FUROSEMIDE 10078119888 Active Jaycee Torrez APRN Active BUSPIRONE HCL 10 MG ORAL TABLET 1 tab by mouth BID BUSPIRONE HCL 53699313915 Active Jaycee Torrez APRN Active ADULT ASPIRIN EC LOW STRENGTH 81 MG ORAL TABLET DELAYED RELEASE Take one by mouth daily ASPIRIN 26418123304 No Longer Active Pelon Quach MD Active ASPIRIN 81 MG ORAL TABLET 1 po qd ASPIRIN 92775029338 Active Pelon Quach MD Active ZOFRAN 4 MG ORAL TABLET 1 po q6hr PRN Nausea ONDANSETRON HCL 23046967090 No Longer Active Pelon Quach MD Active TYLENOL 325 MG ORAL TABLET 1-2 pills by mouth every 6 hours if needed for pain /fever ACETAMINOPHEN 37457087048 No Longer Active Pelon Quach MD Active INVEGA 6 MG ORAL TABLET EXTENDED RELEASE 24 HOUR 1 TAB ONCE DAILY PALIPERIDONE 80782882972 No Longer Active Carly Suggs Active TEGRETOL 200 MG ORAL TABLET by mouth twice a day CARBAMAZEPINE 44371191582 Active Taty Alvarado MD PhD Active FLOMAX 0.4 MG ORAL CAPSULE 1 Daily TAMSULOSIN HCL 48067255296 Active Marianela Juarez Active DILANTIN 100 MG ORAL CAPSULE Take one by mouth daily PHENYTOIN SODIUM EXTENDED 13165078974 No Longer Active Marianela Juarez Active DEPAKOTE SPRINKLES 125 MG ORAL CAPSULE DELAYED RELEASE SPRINKLE 4 capsules by mouth twice daily DIVALPROEX SODIUM 54415952041 No Longer Active Marianela Juarez Active LAMICTAL 200 MG ORAL TABLET 1 BY MOUTH TWICE A DAY LAMOTRIGINE 73615913629 Active Marianelachandrika Shankarida Active LAMICTAL 100 MG ORAL TABLET by mouth twice a day LAMOTRIGINE 46392903086 No Longer Active Marianelachandrika Juarez Active LAMICTAL 150 MG ORAL TABLET by mouth twice a day LAMOTRIGINE 26108707139 No Longer Active Marianela Jaurez Active DILANTIN 100 MG ORAL CAPSULE Take three by mouth daily PHENYTOIN SODIUM EXTENDED 17905896670 No Longer Active Marianela Juarez Active SENOKOT 8.6 MG ORAL TABLET take at bedtime SENNOSIDES 28947929899 Active Pelon Quach MD Active LIPITOR 20 MG ORAL TABLET take at bedtime ATORVASTATIN CALCIUM 30039391580 Active Glenn Thornton MD Active LISINOPRIL 2.5 MG ORAL TABLET Take one by mouth daily LISINOPRIL 15918253807 Active Glenn Thornton MD Active TRENTAL 400 MG CR-TABS by mouth twice a day PENTOXIFYLLINE 57708905983 Active Glenn Thornton MD Active KLOR-CON 10 10 MEQ ORAL TABLET EXTENDED RELEASE Take one by mouth daily POTASSIUM CHLORIDE 87347546843 Active J Ian Thornton MD Active DILANTIN 100 MG ORAL CAPSULE Take three by mouth daily DILANTIN 100 MG ORAL CAPSULE 184668 PHENYTOIN SODIUM EXTENDED Inactive LAMICTAL 150 MG ORAL TABLET by mouth twice a day LAMICTAL 150 MG ORAL TABLET 742741 LAMOTRIGINE Inactive LAMICTAL 100 MG ORAL TABLET by mouth twice a day LAMICTAL 100 MG ORAL TABLET 19831024 LAMOTRIGINE Inactive DEPAKOTE SPRINKLES 125 MG ORAL CAPSULE DELAYED RELEASE SPRINKLE 4 capsules by mouth twice daily DEPAKOTE SPRINKLES 125 MG ORAL CAPSULE DELAYED RELEASE SPRINKLE 2548448 DIVALPROEX SODIUM Inactive DILANTIN 100 MG ORAL CAPSULE Take one by mouth daily DILANTIN 100 MG ORAL CAPSULE 003323 PHENYTOIN SODIUM EXTENDED Inactive INVEGA 6 MG ORAL TABLET EXTENDED RELEASE 24 HOUR 1 TAB ONCE DAILY INVEGA 6 MG ORAL TABLET EXTENDED RELEASE 24 HOUR PALIPERIDONE Inactive TYLENOL 325 MG ORAL TABLET 1-2 pills by mouth every 6 hours if needed for pain /fever TYLENOL 325 MG ORAL TABLET 461622 ACETAMINOPHEN Inactive ZOFRAN 4 MG ORAL TABLET 1 po q6hr PRN Nausea ZOFRAN 4 MG ORAL TABLET 291299 ONDANSETRON HCL Inactive ADULT ASPIRIN EC LOW STRENGTH 81 MG ORAL TABLET DELAYED RELEASE Take one by mouth daily ADULT ASPIRIN EC LOW STRENGTH 81 MG ORAL TABLET DELAYED RELEASE 197363 ASPIRIN Inactive FUROSEMIDE 40 MG ORAL TABLET Take one by mouth daily FUROSEMIDE 40 MG ORAL TABLET 926346 FUROSEMIDE Inactive BACTRIM DS 800-160 MG ORAL TABLET 1 twice a day BACTRIM DS 800-160 MG ORAL TABLET 205457 SULFAMETHOXAZOLE-TRIMETHOPRIM Inactive IPRATROPIUM-ALBUTEROL 0.5-2.5 (3) MG/3ML INHALATION SOLUTION 1 neb treatment QID for cough Dx: J06.9 IPRATROPIUM-ALBUTEROL 0.5-2.5 ( 3) MG/3ML INHALATION SOLUTION 7852764 IPRATROPIUM-ALBUTEROL Inactive TYLENOL 8 HOUR 650 MG [...] BID 06/28 BACTROBAN 2 % EXTERNAL OINTMENT 700498 MUPIROCIN Inactive LAMICTAL 25 MG ORAL TABLET 2 tabs by mouth twice a day LAMICTAL 25 MG ORAL TABLET 229920 LAMOTRIGINE Inactive NOVOLOG 100 UNIT/ML SUBCUTANEOUS SOLUTION 10 UNITS BEFORE SUPPER NOVOLOG 100 UNIT/ML SUBCUTANEOUS SOLUTION INSULIN ASPART Inactive NOVOLOG 100 UNIT/ML SUBCUTANEOUS SOLUTION 10 UNITS BID BEFORE BREAKFAST AND LUNCH NOVOLOG 100 UNIT/ML SUBCUTANEOUS SOLUTION INSULIN ASPART Inactive IPRATROPIUM-ALBUTEROL 0.5-2.5 (3) MG/3ML INHALATION SOLUTION 1 neb treatment four times daily, for cough IPRATROPIUM-ALBUTEROL 0.5- 2.5 (3) MG/3ML INHALATION SOLUTION 9748865 IPRATROPIUM-ALBUTEROL Inactive BACTRIM DS 800-160 MG ORAL TABLET 1 tab by mouth twice daily 2016 BACTRIM DS 800-160 MG ORAL TABLET 401033 TRIMETHOPRIM- SULFAMETHOXAZOLE Inactive Advance Directives Directive Description Start Date DURABLE POWER OF B[employer] FOR HEALTHCARE PERMISSION TO SHARE ADVANCED DIRECTIVE [...] Panel - Chemistry sodium, serum 127 mmol/L 750-337 4849/07/28 potassium, serum 5.3 mmol/L 3.5-5.2 chloride, serum 92 mmol/L 98-107 carbon dioxide, venous blood 32.4 mmol/L 21.0-32.0 blood glucose 182 mg/dL 65-110 calcium, serum 9.4 mg/dL 8.5-10.1 urea nitrogen, blood 14 mg/dL 7-18 creatinine, serum 0.94 mg/dL 0.60-1.30 Lab Report: CBC, Comp. Metabolic Panel - Chemistry sodium, serum 129 mmol/L 560-935 3317/07/12 carbon dioxide, venous blood 27.8 mmol/L 21.0-32.0 [...] mg/dL Encounters Code Encounter Date Provider Facility CPT-80916 Level 4 Est. Patient 14:46:38 CDT Pelon Quach MD [facility] CPT-76613 Level 4 Est. Patient 08:43:11 CDT Pelon Quach MD [facility] CPT-72749 Level 4 Est. Patient 14:27:30 CDT Pelon Quach MD [facility] CPT-65290 Level 3 Est. Patient 10:32:17 CDT Jaycee Torrez APRN [facility] CPT-08006 Level 3 Est. Patient 10:15:07 CDT Pelon Quach MD [facility] CPT-72563 Level 4 Est. Patient 09:30:54 CDT Pelon Quach MD [facility] CPT-41510 Level 4 Est. Patient 14:34:25 CDT Pelon Quach MD [facility] CPT-10154 Level 3 Est. Patient 11:51:35 CLOTHER IN Rick Henson DO [facility] CPT-35363 Level 3 Est. Patient 12:13:33 CLOTHER IN Erik Baptiste MD [facility]-91216 Level 3 Est. Patient 09:40:44 CLOTHER IN Jaycee Torrez [facility] CPT-37020 Level 3 Est. Patient 09:36:32 CLOTHER IN Jaycee Torrez [facility]-75218 Level 4 Est. Patient 16:57:02 CLOTHER IN Pelon Quach MD [facility]-88932 Level 4 Est. Patient 22:19:34 CDT Pelon Quach MD [facility]-45187 Level 3 Est. Patient 00:34:41 CDT Pelon Quach MD [facility]-66679 Level 4 Est. Patient 11:19:14 CDT Pelon Quach MD [facility] [place]-92814 Level 4 Est. Patient 16:43:30 CLOTHER IN Pelon Quach MD [facility]-53000 Level 4 Est. Patient 12:42:18 CDT Pelon Quach MD [facility] CPT-10631 Level 4 Est. Patient 11:52:20 CDT Pelon Quach MD [facility] CPT-23811 Level 4 Est. Patient 13:59:46 CDT Pelon Quach MD [facility] CPT-00816 Level 4 Est. Patient 15:10:48 CDT Pelon Quach MD [facility] CPT-62171 Level 4 Est. Patient 17:13:06 CDT Pelon Quach MD [facility] CPT-18019 Level 4 Est. Patient 18:47:47 CDT Pelon Quach MD [facility] CPT-92993 Level 3 Est. Patient 21:01:27 CDT Pelon Quach MD [facility] CPT-47575 Level 3 Est. Patient 14:07:03 CDT Taty Alvarado MD PhD [facility] CPT-93189 Level 3 New Patient 21:39:52 CLOTHER IN Pelon Quach MD [facility] CPT-75912 Level 3 Est. Patient 14:28:44 CDT Glenn Thornton MD [facility] CPT-83000 Level 3 Est. Patient 16:35:00 CDT Glenn Thornton MD [facility] CPT-66021 Level 4 New Patient 17:06:27 CDT Glenn Thornton MD [facility] Procedures Code Procedure Name Date Entry Date Standard Description CPT-G0438 Initial Annual Wellness Exam 09:30:54 CDT CPT-18112 Prevnar 13 Intramuscular Suspension 14:34:25 CDT 12/27 CPT-04217 Chest 2V Frontal and Lat - XRAY USE ONLY 11:56:13 CLOTHER IN CPT-24840 Cystoscopy 14:28:44 CDT CPT-66678 Bladder Scan 14:28:44 CDT CPT-55265 Indwelling Cath Change 17:06:27 CDT CPT-55842 Cystoscopy 17:06:27 CDT
--- OUTSIDE RECORDS SUMMARY | 2018-06-22 12:23 | XMS REPORT | Clinical Summary ---
Author Author Admin, ONESIMO Organization [facility] [place] Address Unknown Phone Unavailable Allergies, Adverse Reactions, Alerts Allergy Name Reaction Description Start Date Severity Status Provider No Known Allergies Sue Craig RPT,RMA Conditions or Problems Problem Name Problem Code [...] tabs by mouth twice a day LAMOTRIGINE 76954786290 Active Pelon Quach MD Active ADULT ASPIRIN EC LOW STRENGTH 81 MG TBEC Take one by mouth daily ASPIRIN 42278471016 No Longer Active Pelon Quach MD Active TYLENOL 8 HOUR 650 MG ORAL CR-TABS Take 1 tab po QID x 7 days ACETAMINOPHEN 69669840356 Active Fanta Rodas MA Active INVEGA [id number] 3MG BY MOUTH ONE TIME DAILY PALIPERIDONE [id number] 82500225589 Active Pelon Quach MD Active ASPIRIN 81 MG ORAL TABS 1 po qd ASPIRIN 21517300963 Active Pelon Quach MD Active ZOFRAN 4 MG TABS 1 po q6hr PRN Nausea ONDANSETRON HCL 27820213485 No Longer Active Pelon Quach MD Active TYLENOL 325 MG TAB 1-2 pills by mouth every 6 hours if needed for pain/fever ACETAMINOPHEN 92333688834 No Longer Active Pelon Quach MD Active INVEGA 6 MG ORAL [id number] 1 TAB ONCE DAILY PALIPERIDONE 07032321827 No Longer Active Carly Suggs Active LANTUS 100 UNIT/ML SC SOLN 18 SUBQ AT HS INSULIN GLARGINE 27408120169 Active Pelon Quach MD Active TEGRETOL 200 MG TABS by mouth twice a day CARBAMAZEPINE 79786091138 Active Taty Alvarado MD PhD Active NOVOLOG 100 UNIT/ML SC SOLN 7 UNITS BEFORE SUPPER INSULIN ASPART 18518106791 Active Marianela Juarez Active NOVOLOG 100 UNIT/ML SC SOLN 7 UNITS BID BEFORE BREAKFAST AND LUNCH INSULIN ASPART 74446669858 Active Marianela Juarez Active FLOMAX 0.4 MG CAPS 1 Daily TAMSULOSIN HCL 76907484123 Active Marianela Juarez Active DILANTIN 100 MG CAPS Take one by mouth daily PHENYTOIN SODIUM EXTENDED 15915911300 No Longer Active Marianela Juarez Active DEPAKOTE SPRINKLES 125 MG CPSP 4 capsules by mouth twice daily DIVALPROEX SODIUM 04480242036 No Longer Active Marianela Juarez Active LAMICTAL 200 MG ORAL TABS 1 BY MOUTH TWICE A DAY LAMOTRIGINE 51005213350 Active Marianela Juarez Active LAMICTAL 100 MG TABS by mouth twice a day LAMOTRIGINE 88165086632 No Longer Active Marianela Juarez Active LAMICTAL 150 MG TABS by mouth twice a day LAMOTRIGINE 36043388684 No Longer Active Marianela Juarez Active DILANTIN 100 MG CAPS Take three by mouth daily PHENYTOIN SODIUM EXTENDED 77497968203 No Longer Active Marianela Juarez Active SENOKOT 8.6 MG TABS take at bedtime SENNOSIDES 11165470371 Active Glenn Thornton MD Active LIPITOR 20 MG TABS take at bedtime ATORVASTATIN CALCIUM 50153893027 Active Glenn Thornton MD Active LISINOPRIL 2.5 MG TABS Take one by mouth daily LISINOPRIL 20557248079 Active Glenn Thornton MD Active TRENTAL 400 MG CR-TABS by mouth twice a day PENTOXIFYLLINE 70236615228 Active Glenn Thornton MD Active BUSPIRONE HCL 10 MG TABS by mouth twice a day BUSPIRONE HCL 83624464898 Active Glenn Thornton MD Active FUROSEMIDE 40 MG TABS Take one by mouth daily FUROSEMIDE 17252453970 Active Glenn Thornton MD Active KLOR-CON 10 10 MEQ CR-TABS Take one by mouth daily POTASSIUM CHLORIDE 02868209335 Active Glenn Thornton MD Active DILANTIN 100 MG CAPS Take three by mouth daily DILANTIN 100 MG CAPS 594371 PHENYTOIN SODIUM EXTENDED Inactive LAMICTAL 150 MG TABS by mouth twice a day LAMICTAL 150 MG TABS 19831025 LAMOTRIGINE Inactive LAMICTAL 100 MG TABS by mouth twice a day LAMICTAL 100 MG TABS 19831024 LAMOTRIGINE Inactive DEPAKOTE SPRINKLES 125 MG CPSP 4 capsules by mouth twice daily DEPAKOTE SPRINKLES 125 MG CPSP 9891615 DIVALPROEX SODIUM Inactive DILANTIN 100 MG CAPS Take one by mouth daily DILANTIN 100 MG CAPS 297427 PHENYTOIN SODIUM EXTENDED Inactive INVEGA 6 MG ORAL NP16Y-OXT 1 TAB ONCE DAILY INVEGA 6 MG ORAL [id number] PALIPERIDONE Inactive TYLENOL 325 MG TAB 1-2 pills by mouth every 6 hours if needed for pain/fever TYLENOL 325 MG TAB 745902 ACETAMINOPHEN Inactive ZOFRAN 4 MG TABS 1 po q6hr PRN Nausea ZOFRAN 4 MG TABS 421743 ONDANSETRON HCL Inactive ADULT ASPIRIN EC LOW STRENGTH 81 MG TBEC Take one by mouth daily ADULT ASPIRIN EC LOW STRENGTH 81 MG TBEC 056090 ASPIRIN Inactive Advance Directives Directive Description Start Date 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 Patient 22:19:34 CDT Pelon Quach MD [facility] CPT-77641 Level 3 Est. Patient 00:34:41 CDT Pelon Quach MD [facility] CPT-69868 Level 4 Est. Patient 11:19:14 CDT Pelon Quach MD [facility] CPT-52061 Level 4 Est. Patient 16:43:30 ETL LEAD Pelon Quach MD [facility] CPT-92323 Level 4 Est. Patient 12:42:18 CDT Pelon Quach MD [facility] CPT-83650 Level 4 Est. Patient 11:52:20 CDT Pelon Quach MD [facility] CPT-06859 Level 4 Est. Patient 13:59:46 CDT Pelon Quach MD [facility] CPT-52413 Level 4 Est. Patient 15:10:48 CDT Pelon Quach MD [facility] CPT-28293 Level 4 Est. Patient 17:13:06 CDT Pelon Quach MD [facility] CPT-83740 Level 4 Est. Patient 18:47:47 CDT Pelon Quach MD [facility] CPT-44677 Level 3 Est. Patient 21:01:27 CDT Pelon Quach MD [facility] CPT-69163 Level 3 Est. Patient 14:07:03 CDT Taty Alvarado MD PhD [facility] CPT-79414 Level 3 New Patient 21:39:52 ETL LEAD Pelon Quach MD [facility] CPT-39604 Level 3 Est. Patient 14:28:44 CDT Glenn Thornton MD [facility] CPT-06975 Level 3 Est. Patient 16:35:00 CDT Glenn Thornton MD [facility] CPT-07445 Level 4 New Patient 17:06:27 CDT Glenn Thornton MD [facility] Procedures Code Procedure Name Date Entry Date Standard Description CPT-09390 Cystoscopy 14:28:44 CDT CPT-20193 Bladder Scan 14:28:44 CDT CPT-76990 Indwelling Cath Change 17:06:27 CDT CPT-01131 Cystoscopy 17:06:27 CDT
--- OUTSIDE RECORDS SUMMARY | 2018-06-22 12:23 | XMS REPORT | Clinical Summary ---
Author Author Admin, ONESIMO Organization [facility] [employer] Address Unknown Phone Unavailable Allergies, Adverse Reactions, [...] treatment QID for cough Dx: J06.9 IPRATROPIUM-ALBUTEROL 93517206488 Active NICOLETTE Hitchcock Active IPRATROPIUM-ALBUTEROL 0.5-2.5 (3) MG/3ML SOLN 1 neb treatment four times daily , for cough IPRATROPIUM-ALBUTEROL 70341693590 No Longer Active Jaycee Garcia APRN Active TYLENOL 8 HOUR 650 MG ORAL CR-TABS Take 1 tab po up to 3 times daily as needed ACETAMINOPHEN 08835285051 Active Jaycee Garcia APRN Active FUROSEMIDE 40 MG TABS Take one by mouth daily FUROSEMIDE 45476798239 No Longer Active Jaycee Garcia APRN Active LANTUS 100 UNIT/ML SC SOLN 20 SUBQ AT HS INSULIN GLARGINE 00966071758 Active Jaycee Garcia APRN Active LAMICTAL 25 MG ORAL TABS 2 tabs po BID for convulsions LAMOTRIGINE 60781271190 Active Jaycee Garcia APRN Active INVEGA 6 MG ORAL [id number] 1 po daily for Schizophrenia PALIPERIDONE 72201683048 Active Jaycee Garcia APRN Active LASIX 20 MG TAB 1 tablet by mouth every morning for edema FUROSEMIDE 38327024184 Active Jaycee Garcia APRN Active BUSPIRONE HCL 10 MG TABS 1 tab by mouth BID BUSPIRONE HCL 96713704610 Active Jaycee Garcia APRN Active NOVOLOG 100 UNIT/ML SC SOLN 10 UNITS BEFORE SUPPER INSULIN ASPART 32044628020 Active Jaycee Garcia APRN Active NOVOLOG 100 UNIT/ML SC SOLN 10 UNITS BID BEFORE BREAKFAST AND LUNCH INSULIN ASPART 15321080545 Active Jaycee Garcia APRN Active LAMICTAL 25 MG TABS 2 tabs by mouth twice a day LAMOTRIGINE 31443149764 Active Pelon Quach MD Active ADULT ASPIRIN EC LOW STRENGTH 81 MG TBEC Take one by mouth daily ASPIRIN 61987952173 No Longer Active Pelno Quach MD Active ASPIRIN 81 MG ORAL TABS 1 po qd ASPIRIN 86427600850 Active Pelon Quach MD Active ZOFRAN 4 MG TABS 1 po q6hr PRN Nausea ONDANSETRON HCL 91108155400 No Longer Active Pelon Quach MD Active TYLENOL 325 MG TAB 1-2 pills by mouth every 6 hours if needed for pain/fever ACETAMINOPHEN 02904890345 No Longer Active Pelon Quach MD Active INVEGA 6 MG ORAL [id number] 1 TAB ONCE DAILY PALIPERIDONE 61696169578 No Longer Active Carly Suggs Active TEGRETOL 200 MG TABS by mouth twice a day CARBAMAZEPINE 48012654120 Active Taty Alvarado MD PhD Active FLOMAX 0.4 MG CAPS 1 Daily TAMSULOSIN HCL 54101265665 Active Marianela Juarez Active DILANTIN 100 MG CAPS Take one by mouth daily PHENYTOIN SODIUM EXTENDED 77972997382 No Longer Active Marianela Juarez Active DEPAKOTE SPRINKLES 125 MG CPSP 4 capsules by mouth twice daily DIVALPROEX SODIUM 64561738361 No Longer Active Marianela Juarez Active LAMICTAL 200 MG ORAL TABS 1 BY MOUTH TWICE A DAY LAMOTRIGINE 05815893839 Active Marianelachandrika Shankarida Active LAMICTAL 100 MG TABS by mouth twice a day LAMOTRIGINE 04660717091 No Longer Active Marianela Juarez Active LAMICTAL 150 MG TABS by mouth twice a day LAMOTRIGINE 23762136772 No Longer Active Marianelachandrika Juarez Active DILANTIN 100 MG CAPS Take three by mouth daily PHENYTOIN SODIUM EXTENDED 09893906833 No Longer Active Marianela Juarez Active SENOKOT 8.6 MG TABS take at bedtime SENNOSIDES 07388620972 Active Glenn Thornton MD Active LIPITOR 20 MG TABS take at bedtime ATORVASTATIN CALCIUM 69317337906 Active Glenn Thornton MD Active LISINOPRIL 2.5 MG TABS Take one by mouth daily LISINOPRIL 16254278291 Active Glenn Thornton MD Active TRENTAL 400 MG CR-TABS by mouth twice a day PENTOXIFYLLINE 35128392121 Active Glenn Thornton MD Active KLOR-CON 10 10 MEQ CR-TABS Take one by mouth daily POTASSIUM CHLORIDE 42481054535 Active Glenn Thornton MD Active DILANTIN 100 MG CAPS Take three by mouth daily DILANTIN 100 MG CAPS 276556 PHENYTOIN SODIUM EXTENDED Inactive LAMICTAL 150 MG TABS by mouth twice a day LAMICTAL 150 MG TABS 19831025 LAMOTRIGINE Inactive LAMICTAL 100 MG TABS by mouth twice a day LAMICTAL 100 MG TABS 19831024 LAMOTRIGINE Inactive DEPAKOTE SPRINKLES 125 MG CPSP 4 capsules by mouth twice daily DEPAKOTE SPRINKLES 125 MG CPSP 2827665 DIVALPROEX SODIUM Inactive DILANTIN 100 MG CAPS Take one by mouth daily DILANTIN 100 MG CAPS 067628 PHENYTOIN SODIUM EXTENDED Inactive INVEGA 6 MG ORAL [id number] 1 TAB ONCE DAILY INVEGA 6 MG ORAL [id number] PALIPERIDONE Inactive TYLENOL 325 MG TAB 1-2 pills by mouth every 6 hours if needed for pain/fever TYLENOL 325 MG TAB 653748 ACETAMINOPHEN Inactive ZOFRAN 4 MG TABS 1 po q6hr PRN Nausea ZOFRAN 4 MG TABS 364919 ONDANSETRON HCL Inactive ADULT ASPIRIN EC LOW STRENGTH 81 MG TBEC Take one by mouth daily ADULT ASPIRIN EC LOW STRENGTH 81 MG TBEC 471300 ASPIRIN Inactive FUROSEMIDE 40 MG TABS Take one by mouth daily FUROSEMIDE 40 MG TABS 740689 FUROSEMIDE Inactive IPRATROPIUM-ALBUTEROL 0.5-2.5 (3) MG/3ML SOLN 1 neb treatment four times daily , for cough IPRATROPIUM-ALBUTEROL 0.5-2.5 (3) MG/3ML SOLN 9127679 IPRATROPIUM-ALBUTEROL Inactive Advance Directives Directive Description Start Date 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 Patient 22:19:34 CDT Pelon Quach MD [facility] CPT-48417 Level 3 Est. Patient 00:34:41 CDT Pelon Quach MD [facility] CPT-97258 Level 4 Est. Patient 11:19:14 CDT Pelon Quach MD [facility] CPT-77030 Level 4 Est. 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 Patient 12:42:18 CDT Pelon Quach MD [facility] CPT-17828 Level 4 Est. Patient 11:52:20 CDT Pelon Quach MD [facility] CPT-10777 Level 4 Est. Patient 13:59:46 CDT Pelon Quach MD [facility] CPT-89240 Level 4 Est. Patient 15:10:48 CDT Pelon Quach MD [facility] CPT-58177 Level 4 Est. Patient 17:13:06 CDT Pelon Quach MD [facility] CPT-09775 Level 4 Est. Patient 18:47:47 CDT Pelon Quach MD [facility] CPT-16849 Level 3 Est. Patient 21:01:27 CDT Pelon Quach MD [facility] CPT-12398 Level 3 Est. 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 Patient 14:28:44 CDT Glenn Thornton MD [facility] CPT-32588 Level 3 Est. Patient 16:35:00 CDT Glenn Thornton MD [facility] CPT-97988 Level 4 New Patient 17:06:27 CDT Glenn Thornton MD [facility] Procedures Code Procedure Name Date Entry Date Standard Description CPT-36607 Cystoscopy 14:28:44 CDT CPT-86032 Bladder Scan 14:28:44 CDT CPT-89306 Indwelling Cath Change 17:06:27 CDT CPT-45316 Cystoscopy 17:06:27 CDT
--- OUTSIDE RECORDS SUMMARY | 2018-06-22 12:24 | XMS REPORT | Clinical Summary ---
Author Author Admin, ONESIMO Organization [facility] [employer] Address Unknown Phone Unavailable Allergies, Adverse Reactions, [...] 6 hours PRN allergic reaction DIPHENHYDRAMINE HCL 36731850525 Active NICOLETTE Hitchcock Active INVEGA 6 MG ORAL [id number] 1 po daily for Schizophrenia PALIPERIDONE 80143026133 No Longer Active Pelon Quach MD Active TYLENOL 8 HOUR 650 MG ORAL CR-TABS Take 1 tab po up to 3 times daily as needed ACETAMINOPHEN 57530235708 No Longer Active Pelon Quach MD Active IPRATROPIUM-ALBUTEROL 0.5-2.5 (3) MG/3ML INH SOLN 1 neb treatment QID for cough Dx: J06.9 IPRATROPIUM-ALBUTEROL 60716497606 No Longer Active Pelon Quach MD Active BACTRIM DS 800-160 MG TAB 1 tab by mouth twice daily TRIMETHOPRIM-SULFAMETHOXAZOLE 06959555409 No Longer Active Pelon Quach MD Active BACTROBAN 2 % OINTMENT Apply to affected area BID MUPIROCIN 44007403659 Active Jaycee Garcia APRN Active BACTRIM DS 800-160 MG TABS 1 twice a day SULFAMETHOXAZOLE-TRIMETHOPRIM 89012176706 No Longer Active Pelon Quach MD Active IPRATROPIUM-ALBUTEROL 0.5-2.5 (3) MG/3ML SOLN 1 neb treatment four times daily , for cough IPRATROPIUM-ALBUTEROL 99743402431 No Longer Active Jaycee Garcia APRN Active FUROSEMIDE 40 MG TABS Take one by mouth daily FUROSEMIDE 98083605333 No Longer Active Jaycee Garcia APRN Active LANTUS 100 UNIT/ML SC SOLN 20 SUBQ AT HS INSULIN GLARGINE 99812800571 Active Jaycee Garcia APRN Active LAMICTAL 25 MG ORAL TABS 2 tabs po BID for convulsions LAMOTRIGINE 29013339582 Active Jaycee Garcia APRN Active LASIX 20 MG TAB 1 tablet by mouth every morning for edema FUROSEMIDE 55874373536 Active Jaycee Garcia APRN Active BUSPIRONE HCL 10 MG TABS 1 tab by mouth BID BUSPIRONE HCL 48325907340 Active Jaycee Garcia VISUAL DESIGNER Active NOVOLOG 100 UNIT/ML SC SOLN 10 UNITS BEFORE SUPPER INSULIN ASPART 59219627250 Active Jaycee Garcia APRN Active NOVOLOG 100 UNIT/ML SC SOLN 10 UNITS BID BEFORE BREAKFAST AND LUNCH INSULIN ASPART 67406547333 Active Jaycee Garcia APRN Active LAMICTAL 25 MG TABS 2 tabs by mouth twice a day LAMOTRIGINE 61986041575 Active Pelon Quach MD Active ADULT ASPIRIN EC LOW STRENGTH 81 MG TBEC Take one by mouth daily ASPIRIN 73128835207 No Longer Active Pelon Quach MD Active ASPIRIN 81 MG ORAL TABS 1 po qd ASPIRIN 69105078856 Active Pelon Quach MD Active ZOFRAN 4 MG TABS 1 po q6hr PRN Nausea ONDANSETRON HCL 16640546785 No Longer Active Pelon Quach MD Active TYLENOL 325 MG TAB 1-2 pills by mouth every 6 hours if needed for pain/fever ACETAMINOPHEN 69764692709 No Longer Active Pelon Quach MD Active INVEGA 6 MG ORAL [id number] 1 TAB ONCE DAILY PALIPERIDONE 42482763795 No Longer Active Carly Suggs Active TEGRETOL 200 MG TABS by mouth twice a day CARBAMAZEPINE 51331609023 Active Taty Alvarado MD PhD Active FLOMAX 0.4 MG CAPS 1 Daily TAMSULOSIN HCL 08384807521 Active Marianela Juarez Active DILANTIN 100 MG CAPS Take one by mouth daily PHENYTOIN SODIUM EXTENDED 70568263765 No Longer Active Marianela Juarez Active DEPAKOTE SPRINKLES 125 MG CPSP 4 capsules by mouth twice daily DIVALPROEX SODIUM 06152651435 No Longer Active Marianela Juarez Active LAMICTAL 200 MG ORAL TABS 1 BY MOUTH TWICE A DAY LAMOTRIGINE 10640681724 Active Marianela Juarez Active LAMICTAL 100 MG TABS by mouth twice a day LAMOTRIGINE 90550063372 No Longer Active Marianela Juarez Active LAMICTAL 150 MG TABS by mouth twice a day LAMOTRIGINE 02134587354 No Longer Active Marianela Jaurez Active DILANTIN 100 MG CAPS Take three by mouth daily PHENYTOIN SODIUM EXTENDED 87030143016 No Longer Active Marianela Shankarronny Active SENOKOT 8.6 MG TABS take at bedtime SENNOSIDES 62577398878 Active Glenn Thornton MD Active LIPITOR 20 MG TABS take at bedtime ATORVASTATIN CALCIUM 22283174854 Active Glenn Thornton MD Active LISINOPRIL 2.5 MG TABS Take one by mouth daily LISINOPRIL 56163982385 Active Glenn Thornton MD Active TRENTAL 400 MG CR-TABS by mouth twice a day PENTOXIFYLLINE 40311681933 Active Glenn Thornton MD Active KLOR-CON 10 10 MEQ CR-TABS Take one by mouth daily POTASSIUM CHLORIDE 60083894535 Active Glenn Thornton MD Active DILANTIN 100 MG CAPS Take three by mouth daily DILANTIN 100 MG CAPS 759297 PHENYTOIN SODIUM EXTENDED Inactive LAMICTAL 150 MG TABS by mouth twice a day LAMICTAL 150 MG TABS 095708 LAMOTRIGINE Inactive LAMICTAL 100 MG TABS by mouth twice a day LAMICTAL 100 MG TABS 19831024 LAMOTRIGINE Inactive DEPAKOTE SPRINKLES 125 MG CPSP 4 capsules by mouth twice daily DEPAKOTE SPRINKLES 125 MG CPSP 0786045 DIVALPROEX SODIUM Inactive DILANTIN 100 MG CAPS Take one by mouth daily DILANTIN 100 MG CAPS 736261 PHENYTOIN SODIUM EXTENDED Inactive INVEGA 6 MG ORAL [id number] 1 TAB ONCE DAILY INVEGA 6 MG ORAL [id number] PALIPERIDONE Inactive TYLENOL 325 MG TAB 1-2 pills by mouth every 6 hours if needed for pain/fever TYLENOL 325 MG TAB 243341 ACETAMINOPHEN Inactive ZOFRAN 4 MG TABS 1 po q6hr PRN Nausea ZOFRAN 4 MG TABS 272117 ONDANSETRON HCL Inactive ADULT ASPIRIN EC LOW STRENGTH 81 MG TBEC Take one by mouth daily ADULT ASPIRIN EC LOW STRENGTH 81 MG TBEC 480806 ASPIRIN Inactive FUROSEMIDE 40 MG TABS Take one by mouth daily FUROSEMIDE 40 MG TABS 185431 FUROSEMIDE Inactive BACTRIM DS 800-160 MG TABS 1 twice a day BACTRIM DS 800-160 MG TABS 504843 SULFAMETHOXAZOLE-TRIMETHOPRIM Inactive IPRATROPIUM-ALBUTEROL 0.5-2.5 (3) MG/3ML INH SOLN 1 neb treatment QID for cough Dx: J06.9 IPRATROPIUM-ALBUTEROL 0.5-2.5 (3) MG/ 3ML INH SOLN 1578697 IPRATROPIUM-ALBUTEROL Inactive TYLENOL 8 HOUR 650 MG ORAL CR-TABS Take 1 tab po up to 3 times daily as needed TYLENOL 8 HOUR 650 MG ORAL CR-TABS ACETAMINOPHEN Inactive INVEGA 6 MG ORAL [id number] 1 po daily for Schizophrenia INVEGA 6 MG ORAL [id number] PALIPERIDONE Inactive IPRATROPIUM-ALBUTEROL 0.5-2.5 (3) MG/3ML SOLN 1 neb treatment four times daily , for cough IPRATROPIUM-ALBUTEROL 0.5-2.5 (3) MG/3ML SOLN 7752240 IPRATROPIUM-ALBUTEROL Inactive BACTRIM DS 800-160 MG TAB 1 tab by mouth twice daily BACTRIM DS 800-160 MG TAB 19821119 TRIMETHOPRIM-SULFAMETHOXAZOLE Inactive Advance Directives Directive Description Start Date DURABLE POWER OF IMPLEMENTATION CONSULTANT FOR HEALTHCARE PERMISSION TO SHARE ADVANCED DIRECTIVE [...] Panel - Chemistry sodium, serum 127 mmol/L 489-227 9305/07/28 potassium, serum 5.3 mmol/L 3.5-5.2 chloride, serum 92 mmol/L 98-107 carbon dioxide, venous blood 32.4 mmol/L 21.0-32.0 blood glucose 182 mg/dL 65-110 calcium, serum 9.4 mg/dL 8.5-10.1 urea nitrogen, blood 14 mg/dL 7-18 creatinine, serum 0.94 mg/dL 0.60-1.30 Lab Report: CBC, Comp. Metabolic Panel - Chemistry sodium, serum 129 mmol/L 851-737 7957/07/12 carbon dioxide, venous blood 27.8 mmol/L [...] mg/dL Encounters Code Encounter Date Provider Facility CPT-50908 Level 4 Est. Patient 08:43:11 CDT Pelon Quach MD [facility] CPT-50392 Level 4 Est. Patient 14:27:30 CDT Pelon Quach MD [facility] CPT-89867 Level 3 Est. Patient 10:32:17 CDT Jaycee Garcia [facility] CPT-80556 Level 3 Est. Patient 10:15:07 CDT Pelon Quach MD [facility] CPT-74898 Level 4 Est. Patient 09:30:54 CDT Pelon Quach MD [facility] CPT-51963 Level 4 Est. Patient 14:34:25 CDT Pelon Quach MD [facility] CPT-73137 Level 3 Est. Patient 11:51:35 CALL TAKER Rick Henson DO [facility] CPT-62229 Level 3 Est. Patient 12:13:33 CALL TAKER Erik Baptiste MD [facility] CPT-27048 Level 3 Est. Patient 09:40:44 CALL TAKER Jaycee Garcia [facility] CPT-82941 Level 3 Est. Patient 09:36:32 CALL TAKER Jaycee Garcia [facility] CPT-14260 Level 4 Est. Patient 16:57:02 CALL TAKER Pelon Quach MD [facility]-56540 Level 4 Est. Patient 22:19:34 CDT Pelon Quach MD [facility]-64913 Level 3 Est. Patient 00:34:41 CDT Pelon Quach MD [facility]-34224 Level 4 Est. Patient 11:19:14 CDT Pelon Quach MD [facility]-98903 Level 4 Est. Patient 16:43:30 CALL TAKER Pelon Quach MD [facility]-97745 Level 4 Est. Patient 12:42:18 CDT Pelon Quach MD [facility]-44046 Level 4 Est. Patient 11:52:20 CDT Pelon Quach MD [facility]-89999 Level 4 Est. Patient 13:59:46 CDT Pelon Quach MD [facility]-99263 Level 4 Est. Patient 15:10:48 CDT Pelon Quach MD [facility]-04296 Level 4 Est. Patient 17:13:06 CDT Pelon Quach MD [facility]-16042 Level 4 Est. Patient 18:47:47 CDT Pelon Quach MD [facility]-68747 Level 3 Est. Patient 21:01:27 CDT Pelon Quach MD [facility] CPT-28373 Level 3 Est. Patient 14:07:03 CDT Taty Alvarado MD PhD [facility]-77413 Level 3 New Patient 21:39:52 CALL TAKER Pelon Quach MD [facility]-13179 Level 3 Est. Patient 14:28:44 CDT Glenn Thornton MD [facility]-10786 Level 3 Est. Patient 16:35:00 CDT Glenn Thornton MD [facility] CPT-20787 Level 4 New Patient 17:06:27 CDT Glenn Thornton MD [facility] Procedures Code Procedure Name Date Entry Date Standard Description CPT-G0438 Initial Annual Wellness Exam 09:30:54 CDT CPT-86484 Prevnar 13 Intramuscular Suspension 14:34:25 CDT 12/27 CPT-06322 Chest 2V Frontal and Lat - XRAY USE ONLY 11:56:13 CALL TAKER CPT-75711 Cystoscopy 14:28:44 CDT CPT-00130 Bladder Scan 14:28:44 CDT CPT-04444 Indwelling Cath Change 17:06:27 CDT CPT-88199 Cystoscopy 17:06:27 CDT
--- OUTSIDE RECORDS SUMMARY | 2018-06-22 12:25 | XMS REPORT | Clinical Summary ---
Author Author Admin, ONESIMO Organization [facility] Address Unknown Phone Unavailable Allergies, Adverse Reactions, [...] as needed for muscle spasm/pain CYCLOBENZAPRINE HCL 70073305511 Active Pelon Quach MD Active BENADRYL 25 MG ORAL CAPSULE 1 po q8hr PRN Congestion DIPHENHYDRAMINE HCL 27960747111 Active Pelon Quach MD Active ZOFRAN 4 MG ORAL TABLET 1 po q6hr PRN Nausea ONDANSETRON HCL 16246022885 Active Pelon Quach MD Active IMODIUM A-D 2 MG ORAL TABLET One QID prn diarrhea. No more than 4 tabs daily LOPERAMIDE HCL 59877855674 Active Pelon Quach MD Active TYLENOL 325 MG ORAL TABLET 2 tabs po prn for pain elevated temp ACETAMINOPHEN 72668714350 Active Pelon Quach MD Active MUCINEX D 60-600 MG ORAL TABLET EXTENDED RELEASE 12 HOUR 1 po BID PRN Congestion PSEUDOEPHEDRINE-GUAIFENESIN 47425585764 Active Pelon Quach MD Active IBUPROFEN 200 MG ORAL TABLET q 6hrs prn pain IBUPROFEN 37248598726 Active Pelon Quach MD Active LORATADINE 10 MG ORAL TABLET 1 tablet by mouth daily prn LORATADINE 49831236854 Active Pelon Quach MD Active BANOPHEN 25 MG ORAL TABLET 1 po every 6 hours PRN allergic reaction DIPHENHYDRAMINE HCL 97966525215 No Longer Active Pelon Quach MD Active EASY TOUCH ALCOHOL PREP MEDIUM 70 % PAD Use with each finger stick and insulin admin Dx: E11.9 ALCOHOL SWABS 18283103054 Active Jaycee Torrez APRN Active HUMALOG KWIKPEN 100 UNIT/ML SUBCUTANEOUS SOLUTION PEN-INJECTOR inject 10 units subcutaneously before meals also sliding scale INSULIN LISPRO 30615212741 Active Pelon Quach MD Active NOVOLOG 100 UNIT/ML SUBCUTANEOUS SOLUTION 10 UNITS BID BEFORE BREAKFAST AND LUNCH INSULIN ASPART 96838623558 No Longer Active NICOLETTE Hitchcock Active NOVOLOG 100 UNIT/ML SUBCUTANEOUS SOLUTION 10 UNITS BEFORE SUPPER INSULIN ASPART 65442845364 No Longer Active NICOLETTE Hitchcock Active INVEGA 6 MG ORAL TABLET EXTENDED RELEASE 24 HOUR 1 po daily for schizophrenia PALIPERIDONE 96064012396 Active Pelon Quach MD Active LAMICTAL 25 MG ORAL TABLET 2 tabs by mouth twice a day LAMOTRIGINE 81591326198 No Longer Active Pelon Quach MD Active BACTROBAN 2 % EXTERNAL OINTMENT Apply to affected area BID 06/28 MUPIROCIN 76039191162 No Longer Active Pelon Quach MD Active INVEGA 6 MG ORAL TABLET EXTENDED RELEASE 24 HOUR 1 po daily for Schizophrenia PALIPERIDONE 55167399900 No Longer Active Pelon Quach MD Active TYLENOL 8 HOUR 650 MG ORAL TABLET EXTENDED RELEASE Take 1 tab po up to 3 times daily as needed ACETAMINOPHEN 46174206486 No Longer Active Pelon Quach MD Active IPRATROPIUM-ALBUTEROL 0.5-2.5 (3) MG/3ML INHALATION SOLUTION 1 neb treatment QID for cough Dx: J06.9 IPRATROPIUM-ALBUTEROL 59755946873 No Longer Active Pelon Quach MD Active BACTRIM DS 800-160 MG ORAL TABLET 1 tab by mouth twice daily 2016 TRIMETHOPRIM-SULFAMETHOXAZOLE 36845760984 No Longer Active Pelon Quach MD Active BACTRIM DS 800-160 MG ORAL TABLET 1 twice a day SULFAMETHOXAZOLE-TRIMETHOPRIM 59523030541 No Longer Active Pelon Quach MD Active IPRATROPIUM-ALBUTEROL 0.5-2.5 (3) MG/3ML INHALATION SOLUTION 1 neb treatment four times daily, for cough IPRATROPIUM-ALBUTEROL 20388293130 No Longer Active Jaycee Torrez APRN Active FUROSEMIDE 40 MG ORAL TABLET Take one by mouth daily FUROSEMIDE 77010017613 No Longer Active Jaycee Torrez APRN Active LANTUS 100 UNIT/ML SUBCUTANEOUS SOLUTION 20 SUBQ AT HS INSULIN GLARGINE 17901616514 Active Pelon Quach MD Active LAMICTAL 25 MG ORAL TABLET 2 tabs po BID for convulsions LAMOTRIGINE 75424187105 Active Jaycee Torrez APRN Active LASIX 20 MG ORAL TABLET 1 tablet by mouth every morning for edema FUROSEMIDE 15359629455 Active Jaycee Torrez APRN Active BUSPIRONE HCL 10 MG ORAL TABLET 1 tab by mouth BID BUSPIRONE HCL 68205133982 Active Jaycee Torrez APRN Active ADULT ASPIRIN EC LOW STRENGTH 81 MG ORAL TABLET DELAYED RELEASE Take one by mouth daily ASPIRIN 17151004217 No Longer Active Pelon Quach MD Active ASPIRIN 81 MG ORAL TABLET 1 po qd ASPIRIN 82240022653 Active Pelon Quach MD Active ZOFRAN 4 MG ORAL TABLET 1 po q6hr PRN Nausea ONDANSETRON HCL 47517109199 No Longer Active Pelon Quach MD Active TYLENOL 325 MG ORAL TABLET 1-2 pills by mouth every 6 hours if needed for pain /fever ACETAMINOPHEN 38498274413 No Longer Active Pelon Quach MD Active INVEGA 6 MG ORAL TABLET EXTENDED RELEASE 24 HOUR 1 TAB ONCE DAILY PALIPERIDONE 37988492047 No Longer Active Carly Suggs Active TEGRETOL 200 MG ORAL TABLET by mouth twice a day CARBAMAZEPINE 13923718197 Active Taty Alvarado MD PhD Active FLOMAX 0.4 MG ORAL CAPSULE 1 Daily TAMSULOSIN HCL 33385982814 Active Marianela Juarez Active DILANTIN 100 MG ORAL CAPSULE Take one by mouth daily PHENYTOIN SODIUM EXTENDED 52733028364 No Longer Active Marianela Juarez Active DEPAKOTE SPRINKLES 125 MG ORAL CAPSULE DELAYED RELEASE SPRINKLE 4 capsules by mouth twice daily DIVALPROEX SODIUM 04069872118 No Longer Active Marianelachandrika Juarez Active LAMICTAL 200 MG ORAL TABLET 1 BY MOUTH TWICE A DAY LAMOTRIGINE 80565241407 Active Marianela Raida Active LAMICTAL 100 MG ORAL TABLET by mouth twice a day LAMOTRIGINE 97391842424 No Longer Active Marianela Raida Active LAMICTAL 150 MG ORAL TABLET by mouth twice a day LAMOTRIGINE 33144157856 No Longer Active Marianelachandrika Juarez Active DILANTIN 100 MG ORAL CAPSULE Take three by mouth daily PHENYTOIN SODIUM EXTENDED 68641019418 No Longer Active Marianela Juarez Active SENOKOT 8.6 MG ORAL TABLET take at bedtime [facility] 62393074467 Active Pelon Quach MD Active LIPITOR 20 MG ORAL TABLET take at bedtime ATORVASTATIN CALCIUM 05732157470 Active Glenn Thornton MD Active LISINOPRIL 2.5 MG ORAL TABLET Take one by mouth daily LISINOPRIL 55799383153 Active Glenn Thornton MD Active TRENTAL 400 MG CR-TABS by mouth twice a day PENTOXIFYLLINE 39152886882 Active Glenn Thornton MD Active KLOR-CON 10 10 MEQ ORAL TABLET EXTENDED RELEASE Take one by mouth daily POTASSIUM CHLORIDE 28130058973 Active Glenn Thornton MD Active DILANTIN 100 MG ORAL CAPSULE Take three by mouth daily DILANTIN 100 MG ORAL CAPSULE 675630 PHENYTOIN SODIUM EXTENDED Inactive LAMICTAL 150 MG ORAL TABLET by mouth twice a day LAMICTAL 150 MG ORAL TABLET 557823 LAMOTRIGINE Inactive LAMICTAL 100 MG ORAL TABLET by mouth twice a day LAMICTAL 100 MG ORAL TABLET 096764 LAMOTRIGINE Inactive DEPAKOTE SPRINKLES 125 MG ORAL CAPSULE DELAYED RELEASE SPRINKLE 4 capsules by mouth twice daily DEPAKOTE SPRINKLES 125 MG ORAL CAPSULE DELAYED RELEASE SPRINKLE 7720128 DIVALPROEX SODIUM Inactive DILANTIN 100 MG ORAL CAPSULE Take one by mouth daily DILANTIN 100 MG ORAL CAPSULE 643760 PHENYTOIN SODIUM EXTENDED Inactive INVEGA 6 MG ORAL TABLET EXTENDED RELEASE 24 HOUR 1 TAB ONCE DAILY INVEGA 6 MG ORAL TABLET EXTENDED RELEASE 24 HOUR PALIPERIDONE Inactive TYLENOL 325 MG ORAL TABLET 1-2 pills by mouth every 6 hours if needed for pain /fever TYLENOL 325 MG ORAL TABLET 992766 ACETAMINOPHEN Inactive ZOFRAN 4 MG ORAL TABLET 1 po q6hr PRN Nausea ZOFRAN 4 MG ORAL TABLET 496281 ONDANSETRON HCL Inactive ADULT ASPIRIN EC LOW STRENGTH 81 MG ORAL TABLET DELAYED RELEASE Take one by mouth daily ADULT ASPIRIN EC LOW STRENGTH 81 MG ORAL TABLET DELAYED RELEASE 154659 ASPIRIN Inactive FUROSEMIDE 40 MG ORAL TABLET Take one by mouth daily FUROSEMIDE 40 MG ORAL TABLET 197505 FUROSEMIDE Inactive BACTRIM DS 800-160 MG ORAL TABLET 1 twice a day BACTRIM DS 800-160 MG ORAL TABLET 19821119 SULFAMETHOXAZOLE-TRIMETHOPRIM Inactive IPRATROPIUM-ALBUTEROL 0.5-2.5 (3) MG/3ML INHALATION SOLUTION 1 neb treatment QID for cough Dx: J06.9 IPRATROPIUM-ALBUTEROL 0.5-2.5 ( 3) MG/3ML INHALATION SOLUTION 3902889 IPRATROPIUM-ALBUTEROL Inactive TYLENOL 8 HOUR 650 MG [...] a day LAMICTAL 25 MG ORAL TABLET 763896 LAMOTRIGINE Inactive NOVOLOG 100 UNIT/ML SUBCUTANEOUS SOLUTION 10 UNITS BEFORE SUPPER NOVOLOG 100 UNIT/ML SUBCUTANEOUS SOLUTION INSULIN ASPART Inactive NOVOLOG 100 UNIT/ML SUBCUTANEOUS SOLUTION 10 UNITS BID BEFORE BREAKFAST AND LUNCH NOVOLOG 100 UNIT/ML SUBCUTANEOUS SOLUTION INSULIN ASPART Inactive BANOPHEN 25 MG ORAL TABLET 1 po every 6 hours PRN allergic reaction BANOPHEN 25 MG ORAL TABLET 9140835 DIPHENHYDRAMINE HCL Inactive IPRATROPIUM-ALBUTEROL 0.5-2.5 (3) MG/3ML INHALATION SOLUTION 1 neb treatment four times daily, for cough IPRATROPIUM-ALBUTEROL 0.5- 2.5 (3) MG/3ML INHALATION SOLUTION 8148908 IPRATROPIUM-ALBUTEROL Inactive BACTRIM DS 800-160 MG ORAL TABLET 1 tab by mouth twice daily 2016 BACTRIM DS 800-160 MG ORAL TABLET 19821119 TRIMETHOPRIM- SULFAMETHOXAZOLE Inactive Advance Directives Directive Description Start Date 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 Metabolic Panel - Chemistry sodium, serum 129 mmol/L 041-611 5237/07/12 carbon dioxide, venous blood 27.8 mmol/L 21.0-32.0 [...] HGBA1C - Chemistry sodium, serum 123 mmol/L 438-658 2489/04/25 carbon dioxide, venous blood 26.2 mmol/L 21.0-32.0 [...] mg/dL Encounters Code Encounter Date Provider Facility CPT-24374 [id number] Vst-Est Level II 13:40:42 CDT Pelon Quach MD [facility] CPT-65240 17567-Xph Vst-Est Level III 13:36:24 CDT Pelon Quach MD [facility] CPT-22870 Level 4 Est. Patient 18:11:18 CDT Pelon Quach MD [facility] CPT-02278 Level 4 Est. Patient 14:46:38 CDT Pelon Quach MD [facility] CPT-99551 Level 4 Est. Patient 08:43:11 CDT Pelon Quach MD [facility] CPT-51415 Level 4 Est. Patient 14:27:30 CDT Pelon Quach MD [facility] CPT-95762 Level 3 Est. Patient 10:32:17 CDT Jaycee Torrez APRN [facility] CPT-98130 Level 3 Est. Patient 10:15:07 CDT Pelon Quach MD [facility] CPT-63251 Level 4 Est. Patient 09:30:54 CDT Pelon Quach MD [facility]-12609 Level 4 Est. Patient 14:34:25 CDT Pelon Quach MD [facility]-74421 Level 3 Est. Patient 11:51:35 FIELD SALES REPRESENTATIVE Rick Henson DO [facility]-03231 Level 3 Est. Patient 12:13:33 FIELD SALES REPRESENTATIVE Erik Baptiste MD [facility]-48499 Level 3 Est. Patient 09:40:44 FIELD SALES REPRESENTATIVE Jaycee Torrez [facility]-53883 Level 3 Est. Patient 09:36:32 FIELD SALES REPRESENTATIVE Jaycee Torrez [facility] CPT-10964 Level 4 Est. Patient 16:57:02 FIELD SALES REPRESENTATIVE Pelon Quach MD [facility]-82958 Level 4 Est. Patient 22:19:34 CDT Pelon Quach MD [facility]-11590 Level 3 Est. Patient 00:34:41 CDT Pelon Quach MD [facility]-69178 Level 4 Est. Patient 11:19:14 CDT Pelon Quach MD [facility]-75790 Level 4 Est. Patient 16:43:30 FIELD SALES REPRESENTATIVE Pelon Quach MD [facility]-91624 Level 4 Est. Patient 12:42:18 CDT Pelon Quach MD [facility] CPT-27013 Level 4 Est. Patient 11:52:20 CDT Pelon Quach MD [facility] CPT-07440 Level 4 Est. Patient 13:59:46 CDT Pelon Quach MD [facility] CPT-05940 Level 4 Est. Patient 15:10:48 CDT Pelon Quach MD [facility] CPT-51138 Level 4 Est. Patient 17:13:06 CDT Pelon Quach MD [facility] CPT-70176 Level 4 Est. Patient 18:47:47 CDT Pelon Quach MD [facility] CPT-64768 Level 3 Est. Patient 21:01:27 CDT Pelon Quach MD [facility] CPT-91778 Level 3 Est. Patient 14:07:03 CDT Taty Alvarado MD PhD [facility] CPT-62070 Level 3 New Patient 21:39:52 FIELD SALES REPRESENTATIVE Pelon Quach MD [facility] CPT-39843 Level 3 Est. Patient 14:28:44 CDT Glenn Thornton MD [facility] CPT-19396 Level 3 Est. Patient 16:35:00 CDT Glenn Thornton MD [facility] CPT-66641 Level 4 New Patient 17:06:27 CDT Glenn Thornton MD [facility] [place] Procedures Code Procedure Name Date Entry Date Standard Description CPT-G0439 Subsequent Annual Wellness Exam 18:11:17 CDT CPT-G0438 Initial Annual Wellness Exam 09:30:54 CDT CPT-85188 Prevnar 13 Intramuscular Suspension 14:34:25 CDT 12/27 CPT-68328 Chest 2V Frontal and Lat - XRAY USE ONLY 11:56:13 FIELD SALES REPRESENTATIVE CPT-33976 Cystoscopy 14:28:44 CDT CPT-97049 Bladder Scan 14:28:44 CDT CPT-19689 Indwelling Cath Change 17:06:27 CDT CPT-58734 Cystoscopy 17:06:27 CDT
--- OUTSIDE RECORDS SUMMARY | 2018-06-22 12:26 | XMS REPORT | Clinical Summary ---
Author Author Admin, ONESIMO Organization [facility] [place] Address Unknown Phone Unavailable Allergies, Adverse Reactions, [...] MG TABS 1 twice a day SULFAMETHOXAZOLE-TRIMETHOPRIM 95748021819 No Longer Active Pelon Quach MD Active IPRATROPIUM-ALBUTEROL 0.5-2.5 (3) MG/3ML INH SOLN 1 neb treatment QID for cough Dx: J06.9 IPRATROPIUM-ALBUTEROL 89944084656 Active Jaycee Garcia APRN Active IPRATROPIUM-ALBUTEROL 0.5-2.5 (3) MG/3ML SOLN 1 neb treatment four times daily , for cough IPRATROPIUM-ALBUTEROL 87216979994 No Longer Active Jaycee Jose VICTORINO Active TYLENOL 8 HOUR 650 MG ORAL CR-TABS Take 1 tab po up to 3 times daily as needed ACETAMINOPHEN 35012703522 Active Jaycee Garcia APRN Active FUROSEMIDE 40 MG TABS Take one by mouth daily FUROSEMIDE 43054392944 No Longer Active Jaycee Jose VICTORINO Active LANTUS 100 UNIT/ML SC SOLN 20 SUBQ AT HS INSULIN GLARGINE 61733505014 Active Jaycee Garcia APRN Active LAMICTAL 25 MG ORAL TABS 2 tabs po BID for convulsions LAMOTRIGINE 94328345210 Active Jaycee Garcia APRN Active INVEGA 6 MG ORAL [id number] 1 po daily for Schizophrenia PALIPERIDONE 86652000173 Active Jaycee Garcia APRN Active LASIX 20 MG TAB 1 tablet by mouth every morning for edema FUROSEMIDE 12700322957 Active Jaycee Garcia APRN Active BUSPIRONE HCL 10 MG TABS 1 tab by mouth BID BUSPIRONE HCL 30840282305 Active Jaycee Jose VICTORINO Active NOVOLOG 100 UNIT/ML SC SOLN 10 UNITS BEFORE SUPPER INSULIN ASPART 89018332394 Active Jaycee Garcia APRN Active NOVOLOG 100 UNIT/ML SC SOLN 10 UNITS BID BEFORE BREAKFAST AND LUNCH INSULIN ASPART 96582006195 Active Jaycee Garcia APRN Active LAMICTAL 25 MG TABS 2 tabs by mouth twice a day LAMOTRIGINE 57081441105 Active Pelon Quach MD Active ADULT ASPIRIN EC LOW STRENGTH 81 MG TBEC Take one by mouth daily ASPIRIN 56582930289 No Longer Active Pelon Quach MD Active ASPIRIN 81 MG ORAL TABS 1 po qd ASPIRIN 21718203238 Active Pelon [place] MD Active ZOFRAN 4 MG TABS 1 po q6hr PRN Nausea ONDANSETRON HCL 14494390381 No Longer Active Pelon Quach MD Active TYLENOL 325 MG TAB 1-2 pills by mouth every 6 hours if needed for pain/fever ACETAMINOPHEN 87147566644 No Longer Active Pelon Quach MD Active INVEGA 6 MG ORAL [id number] 1 TAB ONCE DAILY PALIPERIDONE 20733340016 No Longer Active Carly Suggs Active TEGRETOL 200 MG TABS by mouth twice a day CARBAMAZEPINE 06858992307 Active Taty Alvarado MD PhD Active FLOMAX 0.4 MG CAPS 1 Daily TAMSULOSIN HCL 44973882803 Active Marianelachandrika Juarez Active DILANTIN 100 MG CAPS Take one by mouth daily PHENYTOIN SODIUM EXTENDED 63085867355 No Longer Active Marianelachandrika Shankarronny Active DEPAKOTE SPRINKLES 125 MG CPSP 4 capsules by mouth twice daily DIVALPROEX SODIUM 23473500768 No Longer Active Marianelachandrika Shankarida Active LAMICTAL 200 MG ORAL TABS 1 BY MOUTH TWICE A DAY LAMOTRIGINE 65324442992 Active Amrianela Raida Active LAMICTAL 100 MG TABS by mouth twice a day LAMOTRIGINE 28311988621 No Longer Active Marianela Raida Active LAMICTAL 150 MG TABS by mouth twice a day LAMOTRIGINE 70954839127 No Longer Active Marianelachandrika Juarez Active DILANTIN 100 MG CAPS Take three by mouth daily PHENYTOIN SODIUM EXTENDED 32646840696 No Longer Active Marianelachandrika Shankarida Active SENOKOT 8.6 MG TABS take at bedtime SENNOSIDES 09593724958 Active Glenn Thornton MD Active LIPITOR 20 MG TABS take at bedtime ATORVASTATIN CALCIUM 63896900438 Active Glenn Thornton MD Active LISINOPRIL 2.5 MG TABS Take one by mouth daily LISINOPRIL 19449683794 Active Glenn Thornton MD Active TRENTAL 400 MG CR-TABS by mouth twice a day PENTOXIFYLLINE 65114884587 Active Glenn Thornton MD Active KLOR-CON 10 10 MEQ CR-TABS Take one by mouth daily POTASSIUM CHLORIDE 36318074087 Active J Ian Thornton MD Active DILANTIN 100 MG CAPS Take three by mouth daily DILANTIN 100 MG CAPS 573143 PHENYTOIN SODIUM EXTENDED Inactive LAMICTAL 150 MG TABS by mouth twice a day LAMICTAL 150 MG TABS 19831025 LAMOTRIGINE Inactive LAMICTAL 100 MG TABS by mouth twice a day LAMICTAL 100 MG TABS 19831024 LAMOTRIGINE Inactive DEPAKOTE SPRINKLES 125 MG CPSP 4 capsules by mouth twice daily DEPAKOTE SPRINKLES 125 MG CPSP 1498715 DIVALPROEX SODIUM Inactive DILANTIN 100 MG CAPS Take one by mouth daily DILANTIN 100 MG CAPS 208163 PHENYTOIN SODIUM EXTENDED Inactive INVEGA 6 MG ORAL [id number] 1 TAB ONCE DAILY INVEGA 6 MG ORAL [id number] PALIPERIDONE Inactive TYLENOL 325 MG TAB 1-2 pills by mouth every 6 hours if needed for pain/fever TYLENOL 325 MG TAB 598148 ACETAMINOPHEN Inactive ZOFRAN 4 MG TABS 1 po q6hr PRN Nausea ZOFRAN 4 MG TABS 135649 ONDANSETRON HCL Inactive ADULT ASPIRIN EC LOW STRENGTH 81 MG TBEC Take one by mouth daily ADULT ASPIRIN EC LOW STRENGTH 81 MG TBEC 778316 ASPIRIN Inactive FUROSEMIDE 40 MG TABS Take one by mouth daily FUROSEMIDE 40 MG TABS 291064 FUROSEMIDE Inactive BACTRIM DS 800-160 MG TABS 1 twice a day BACTRIM DS 800-160 MG TABS 781374 SULFAMETHOXAZOLE-TRIMETHOPRIM Inactive IPRATROPIUM-ALBUTEROL 0.5-2.5 (3) MG/3ML SOLN 1 neb treatment four times daily , for cough IPRATROPIUM-ALBUTEROL 0.5-2.5 (3) MG/3ML SOLN 1438344 IPRATROPIUM-ALBUTEROL Inactive Advance Directives Directive Description Start Date DURABLE POWER OF RUG CLIPPER FOR HEALTHCARE PERMISSION TO SHARE ADVANCED DIRECTIVE [...] pressure, diastolic - 8462-4 69 mm[Hg] BP dayl blood pressure, systolic - 8480-6 134 mm[Hg] [...] mg/dL Encounters Code Encounter Date Provider Facility CPT-70049 Level 4 Est. Patient 09:30:54 CDT Pelon Quach MD [facility]-69951 Level 4 Est. Patient 14:34:25 CDT Pelon Quach MD [facility] CPT-58835 Level 3 Est. Patient 11:51:35 COPYING MACHINE REPAIRER Rick Henson DO [facility]-11705 Level 3 Est. Patient 12:13:33 COPYING MACHINE REPAIRER Erik Baptiste MD [facility]-97156 Level 3 Est. Patient 09:40:44 COPYING MACHINE REPAIRER Jaycee Garcia [facility]-18804 Level 3 Est. Patient 09:36:32 COPYING MACHINE REPAIRER Jaycee Garcia [facility] CPT-91947 Level 4 Est. Patient 16:57:02 COPYING MACHINE REPAIRER Pelon Quach MD [facility]-02115 Level 4 Est. Patient 22:19:34 CDT Pelon Quach MD [facility]-48804 Level 3 Est. Patient 00:34:41 CDT Pelon Quach MD [facility]-28426 Level 4 Est. Patient 11:19:14 CDT Pelon Quach MD [facility]-47348 Level 4 Est. Patient 16:43:30 COPYING MACHINE REPAIRER Pelon Quach MD [facility]-60061 Level 4 Est. Patient 12:42:18 CDT Pelon Quach MD [facility] CPT-67537 Level 4 Est. Patient 11:52:20 CDT Pelon Quach MD [facility] CPT-24478 Level 4 Est. Patient 13:59:46 CDT Pelon Quach MD [facility] CPT-14970 Level 4 Est. Patient 15:10:48 CDT Pelon Quach MD [facility] CPT-16336 Level 4 Est. Patient 17:13:06 CDT Pelon Quach MD [facility] CPT-37707 Level 4 Est. Patient 18:47:47 CDT Pelon Quach MD [facility] CPT-46814 Level 3 Est. Patient 21:01:27 CDT Pelon Quach MD [facility] CPT-31820 Level 3 Est. Patient 14:07:03 CDT Taty Alvarado MD PhD [facility] CPT-75563 Level 3 New Patient 21:39:52 COPYING MACHINE REPAIRER Pelon Quach MD [facility] CPT-37014 Level 3 Est. Patient 14:28:44 CDT Glenn Thornton MD [facility] CPT-04233 Level 3 Est. Patient 16:35:00 CDT Glenn Thornton MD [facility] CPT-09993 Level 4 New Patient 17:06:27 CDT Glenn Thornton MD [facility] [place] Procedures Code Procedure Name Date Entry Date Standard Description CPT-G0438 Initial Annual Wellness Exam 09:30:54 CDT CPT-32261 Prevnar 13 Intramuscular Suspension 14:34:25 CDT 12/27 CPT-83365 Chest 2V Frontal and Lat - XRAY USE ONLY 11:56:13 COPYING MACHINE REPAIRER CPT-94704 Cystoscopy 14:28:44 CDT CPT-91178 Bladder Scan 14:28:44 CDT CPT-11563 Indwelling Cath Change 17:06:27 CDT CPT-19330 Cystoscopy 17:06:27 CDT
--- OUTSIDE RECORDS SUMMARY | 2018-06-22 12:26 | XMS REPORT | Clinical Summary ---
Author Author Admin, ONESIMO Organization [facility] [place] Address Unknown Phone Unavailable Allergies, Adverse Reactions, [...] 1 tab by mouth twice daily TRIMETHOPRIM-SULFAMETHOXAZOLE 22127689875 Active Pelon Quach MD Active BACTROBAN 2 % OINTMENT Apply to affected area BID MUPIROCIN 87616520601 Active Jaycee Garcia APRN Active BACTRIM DS 800-160 MG TABS 1 twice a day SULFAMETHOXAZOLE-TRIMETHOPRIM 03197522916 No Longer Active Pelon Quach MD Active IPRATROPIUM-ALBUTEROL 0.5-2.5 (3) MG/3ML INH SOLN 1 neb treatment QID for cough Dx: J06.9 IPRATROPIUM-ALBUTEROL 83676010581 Active Jaycee Garcia APRN Active IPRATROPIUM-ALBUTEROL 0.5-2.5 (3) MG/3ML SOLN 1 neb treatment four times daily , for cough IPRATROPIUM-ALBUTEROL 66892645252 No Longer Active Jaycee Garcia APRN Active TYLENOL 8 HOUR 650 MG ORAL CR-TABS Take 1 tab po up to 3 times daily as needed ACETAMINOPHEN 09840952690 Active Jaycee Garcia APRN Active FUROSEMIDE 40 MG TABS Take one by mouth daily FUROSEMIDE 68806201254 No Longer Active Jaycee Garcia APRN Active LANTUS 100 UNIT/ML SC SOLN 20 SUBQ AT HS INSULIN GLARGINE 15401805468 Active Jaycee Garcia APRN Active LAMICTAL 25 MG ORAL TABS 2 tabs po BID for convulsions LAMOTRIGINE 65403343028 Active Jaycee Garcia APRN Active INVEGA 6 MG ORAL [id number] 1 po daily for Schizophrenia PALIPERIDONE 52746001702 Active Jaycee Garcia APRN Active LASIX 20 MG TAB 1 tablet by mouth every morning for edema FUROSEMIDE 98855041969 Active Jaycee Garcia APRN Active BUSPIRONE HCL 10 MG TABS 1 tab by mouth BID BUSPIRONE HCL 78401600417 Active Jaycee Gracia APRN Active NOVOLOG 100 UNIT/ML SC SOLN 10 UNITS BEFORE SUPPER INSULIN ASPART 52689132721 Active Jaycee Garcia APRN Active NOVOLOG 100 UNIT/ML SC SOLN 10 UNITS BID BEFORE BREAKFAST AND LUNCH INSULIN ASPART 45971343655 Active Jaycee Garcia APRN Active LAMICTAL 25 MG TABS 2 tabs by mouth twice a day LAMOTRIGINE 85835670777 Active Pelon Quach MD Active ADULT ASPIRIN EC LOW STRENGTH 81 MG TBEC Take one by mouth daily ASPIRIN 48239414556 No Longer Active Pelon Quach MD Active ASPIRIN 81 MG ORAL TABS 1 po qd ASPIRIN 58712022691 Active Pelon Quach MD Active ZOFRAN 4 MG TABS 1 po q6hr PRN Nausea ONDANSETRON HCL 37334947566 No Longer Active Pelon Quach MD Active TYLENOL 325 MG TAB 1-2 pills by mouth every 6 hours if needed for pain/fever ACETAMINOPHEN 60364961188 No Longer Active Pelon Quach MD Active INVEGA 6 MG ORAL [id number] 1 TAB ONCE DAILY PALIPERIDONE 02985788588 No Longer Active Carly Suggs Active TEGRETOL 200 MG TABS by mouth twice a day CARBAMAZEPINE 13692554676 Active Taty Alvarado MD PhD Active FLOMAX 0.4 MG CAPS 1 Daily TAMSULOSIN HCL 51541445031 Active Marianela Larry Active DILANTIN 100 MG CAPS Take one by mouth daily PHENYTOIN SODIUM EXTENDED 49471368198 No Longer Active Marianela Larry Active DEPAKOTE SPRINKLES 125 MG CPSP 4 capsules by mouth twice daily DIVALPROEX SODIUM 61202042528 No Longer Active Marianela Raida Active LAMICTAL 200 MG ORAL TABS 1 BY MOUTH TWICE A DAY LAMOTRIGINE 26223622569 Active Marianela Raida Active LAMICTAL 100 MG TABS by mouth twice a day LAMOTRIGINE 34312472868 No Longer Active Marianela Raida Active LAMICTAL 150 MG TABS by mouth twice a day LAMOTRIGINE 64273885497 No Longer Active Marianela Raida Active DILANTIN 100 MG CAPS Take three by mouth daily PHENYTOIN SODIUM EXTENDED 68844793314 No Longer Active Marianela Raida Active SENOKOT 8.6 MG TABS take at bedtime SENNOSIDES 67054448990 Active J Ian Thornton MD Active LIPITOR 20 MG TABS take at bedtime ATORVASTATIN CALCIUM 97167248634 Active Glenn Thornton MD Active LISINOPRIL 2.5 MG TABS Take one by mouth daily LISINOPRIL 14444126866 Active Glenn Thornton MD Active TRENTAL 400 MG CR-TABS by mouth twice a day PENTOXIFYLLINE 46868998621 Active Glenn Thornton MD Active KLOR-CON 10 10 MEQ CR-TABS Take one by mouth daily POTASSIUM CHLORIDE 42353693187 Active Glenn Thornton MD Active DILANTIN 100 MG CAPS Take three by mouth daily DILANTIN 100 MG CAPS 462878 PHENYTOIN SODIUM EXTENDED Inactive LAMICTAL 150 MG TABS by mouth twice a day LAMICTAL 150 MG TABS 19831025 LAMOTRIGINE Inactive LAMICTAL 100 MG TABS by mouth twice a day LAMICTAL 100 MG TABS 19831024 LAMOTRIGINE Inactive DEPAKOTE SPRINKLES 125 MG CPSP 4 capsules by mouth twice daily DEPAKOTE SPRINKLES 125 MG CPSP 6553003 DIVALPROEX SODIUM Inactive DILANTIN 100 MG CAPS Take one by mouth daily DILANTIN 100 MG CAPS 276784 PHENYTOIN SODIUM EXTENDED Inactive INVEGA 6 MG ORAL [id number] 1 TAB ONCE DAILY INVEGA 6 MG ORAL [id number] PALIPERIDONE Inactive TYLENOL 325 MG TAB 1-2 pills by mouth every 6 hours if needed for pain/fever TYLENOL 325 MG TAB 549674 ACETAMINOPHEN Inactive ZOFRAN 4 MG TABS 1 po q6hr PRN Nausea ZOFRAN 4 MG TABS 626705 ONDANSETRON HCL Inactive ADULT ASPIRIN EC LOW STRENGTH 81 MG TBEC Take one by mouth daily ADULT ASPIRIN EC LOW STRENGTH 81 MG TBEC 557461 ASPIRIN Inactive FUROSEMIDE 40 MG TABS Take one by mouth daily FUROSEMIDE 40 MG TABS 359030 FUROSEMIDE Inactive BACTRIM DS 800-160 MG TABS 1 twice a day BACTRIM DS 800-160 MG TABS 085035 SULFAMETHOXAZOLE-TRIMETHOPRIM Inactive IPRATROPIUM-ALBUTEROL 0.5-2.5 (3) MG/3ML SOLN 1 neb treatment four times daily , for cough IPRATROPIUM-ALBUTEROL 0.5-2.5 (3) MG/3ML SOLN 3146833 IPRATROPIUM-ALBUTEROL Inactive Advance Directives Directive Description Start Date DURABLE POWER OF STEAMBOAT CAPTAIN FOR HEALTHCARE PERMISSION TO SHARE ADVANCED DIRECTIVE [...] mg/dL Encounters Code Encounter Date Provider Facility CPT-61150 Level 3 Est. Patient 10:32:17 CDT Jaycee Garcia APRN [facility] CPT-23268 Level 3 Est. Patient 10:15:07 CDT Pelon Quach MD [facility]-64328 Level 4 Est. Patient 09:30:54 CDT Pelon Quach MD [facility] CPT-75982 Level 4 Est. Patient 14:34:25 CDT Pelon Quach MD [facility]-14283 Level 3 Est. Patient 11:51:35 CORN GRINDER Rick Henson DO [facility] CPT-63065 Level 3 Est. Patient 12:13:33 CORN GRINDER Erik Baptiste MD [facility]-25785 Level 3 Est. Patient 09:40:44 CORN GRINDER Jaycee Garcia [facility]-12530 Level 3 Est. Patient 09:36:32 CORN GRINDER Jaycee Garcia [facility]-79699 Level 4 Est. Patient 16:57:02 CORN GRINDER Pelon Quach MD [facility] CPT-13616 Level 4 Est. Patient 22:19:34 CDT Pelon Quach MD [facility]-60532 Level 3 Est. Patient 00:34:41 CDT Pelon Quach MD [facility]-17945 Level 4 Est. Patient 11:19:14 CDT Pelon Quach MD [facility]-09908 Level 4 Est. Patient 16:43:30 CORN GRINDER Pelon Quach MD [facility]-18725 Level 4 Est. Patient 12:42:18 CDT Pelon Quach MD [facility] CPT-09756 Level 4 Est. Patient 11:52:20 CDT Pelon Quach MD [facility] CPT-70269 Level 4 Est. Patient 13:59:46 CDT Pelon Quach MD [facility] CPT-53434 Level 4 Est. Patient 15:10:48 CDT Pelon Quach MD [facility] CPT-50970 Level 4 Est. Patient 17:13:06 CDT Pelon Quach MD [facility] CPT-15426 Level 4 Est. Patient 18:47:47 CDT Pelon Quach MD [facility] CPT-27551 Level 3 Est. Patient 21:01:27 CDT Pelon Quach MD [facility] CPT-53341 Level 3 Est. Patient 14:07:03 CDT Taty Alvarado MD PhD [facility] CPT-87307 Level 3 New Patient 21:39:52 CORN GRINDER Pelon Quach MD [facility] CPT-02210 Level 3 Est. Patient 14:28:44 CDT Glenn Thornton MD [facility] CPT-37235 Level 3 Est. Patient 16:35:00 CDT Glenn Thornton MD [facility] CPT-84985 Level 4 New Patient 17:06:27 CDT Glenn Thornton MD [facility] [place] Procedures Code Procedure Name Date Entry Date Standard Description CPT-G0438 Initial Annual Wellness Exam 09:30:54 CDT CPT-72718 Prevnar 13 Intramuscular Suspension 14:34:25 CDT 12/27 CPT-01077 Chest 2V Frontal and Lat - XRAY USE ONLY 11:56:13 CORN GRINDER CPT-94343 Cystoscopy 14:28:44 CDT CPT-97266 Bladder Scan 14:28:44 CDT CPT-29761 Indwelling Cath Change 17:06:27 CDT CPT-24905 Cystoscopy 17:06:27 CDT
--- OUTSIDE RECORDS SUMMARY | 2018-06-22 12:27 | XMS REPORT | Clinical Summary ---
Author Author Admin, ONESIMO Organization [facility] [employer] [place] Address Unknown Phone Unavailable Allergies, Adverse Reactions, [...] TABS 1 twice a day SULFAMETHOXAZOLE- TRIMETHOPRIM 46225369450 Active Erik Baptiste MD Active IPRATROPIUM-ALBUTEROL 0.5-2.5 (3) MG/3ML INH SOLN 1 neb treatment QID for cough Dx: J06.9 IPRATROPIUM-ALBUTEROL 65303265310 Active NICOLETTE Hitchcock Active IPRATROPIUM-ALBUTEROL 0.5-2.5 (3) MG/3ML SOLN 1 neb treatment four times daily , for cough IPRATROPIUM-ALBUTEROL 96545333932 No Longer Active Jaycee Garcia APRN Active TYLENOL 8 HOUR 650 MG ORAL CR-TABS Take 1 tab po up to 3 times daily as needed ACETAMINOPHEN 28715936342 Active Jayceehugo Garcia APRN Active FUROSEMIDE 40 MG TABS Take one by mouth daily FUROSEMIDE 24699646047 No Longer Active Jaycee Garcia VICTORINO Active LANTUS 100 UNIT/ML SC SOLN 20 SUBQ AT HS INSULIN GLARGINE 96828037250 Active Jayceehugo Garcia APRN Active LAMICTAL 25 MG ORAL TABS 2 tabs po BID for convulsions LAMOTRIGINE 72835597330 Active Jaycee Jose VICTORINO Active INVEGA 6 MG ORAL [id number] 1 po daily for Schizophrenia PALIPERIDONE 26103871202 Active Jayceehugo Garcia APRN Active LASIX 20 MG TAB 1 tablet by mouth every morning for edema FUROSEMIDE 76856570751 Active Jaycee Jose VICTORINO Active BUSPIRONE HCL 10 MG TABS 1 tab by mouth BID BUSPIRONE HCL 82721543318 Active Jayceehugo Garcia APRN Active NOVOLOG 100 UNIT/ML SC SOLN 10 UNITS BEFORE SUPPER INSULIN ASPART 95812428550 Active Jaycee Garcia VICTORINO Active NOVOLOG 100 UNIT/ML SC SOLN 10 UNITS BID BEFORE BREAKFAST AND LUNCH INSULIN ASPART 06102087685 Active Jaycee Garcia VICTORINO Active LAMICTAL 25 MG TABS 2 tabs by mouth twice a day LAMOTRIGINE 80173009353 Active Pelon Quach MD Active ADULT ASPIRIN EC LOW STRENGTH 81 MG TBEC Take one by mouth daily ASPIRIN 37236317879 No Longer Active Pelon Quach MD Active ASPIRIN 81 MG ORAL TABS 1 po qd ASPIRIN 09905766424 Active Pelon Quach MD Active ZOFRAN 4 MG TABS 1 po q6hr PRN Nausea ONDANSETRON HCL 55640219285 No Longer Active Pelon Quach MD Active TYLENOL 325 MG TAB 1-2 pills by mouth every 6 hours if needed for pain/fever ACETAMINOPHEN 90620885537 No Longer Active Pelon Quach MD Active INVEGA 6 MG ORAL [id number] 1 TAB ONCE DAILY PALIPERIDONE 60883800489 No Longer Active Carly Suggs Active TEGRETOL 200 MG TABS by mouth twice a day CARBAMAZEPINE 56595902891 Active Taty Alvarado MD PhD Active FLOMAX 0.4 MG CAPS 1 Daily TAMSULOSIN HCL 98552635086 Active Marianela Juarez Active DILANTIN 100 MG CAPS Take one by mouth daily PHENYTOIN SODIUM EXTENDED 15357820519 No Longer Active Marianela Juarez Active DEPAKOTE SPRINKLES 125 MG CPSP 4 capsules by mouth twice daily DIVALPROEX SODIUM 15393631621 No Longer Active Marianelachandrika Juarez Active LAMICTAL 200 MG ORAL TABS 1 BY MOUTH TWICE A DAY LAMOTRIGINE 54763280049 Active Marianelachandrika Juarez Active LAMICTAL 100 MG TABS by mouth twice a day LAMOTRIGINE 84833133710 No Longer Active Marianelachandrika Juarez Active LAMICTAL 150 MG TABS by mouth twice a day LAMOTRIGINE 00998752917 No Longer Active Marianelachandrika Shankarronny Active DILANTIN 100 MG CAPS Take three by mouth daily PHENYTOIN SODIUM EXTENDED 50362420910 No Longer Active Marianela Juarez Active SENOKOT 8.6 MG TABS take at bedtime SENNOSIDES 02522741186 Active Glenn Thornton MD Active LIPITOR 20 MG TABS take at bedtime ATORVASTATIN CALCIUM 35827321051 Active Glenn Thornton MD Active LISINOPRIL 2.5 MG TABS Take one by mouth daily LISINOPRIL 78965238345 Active Glenn Thornton MD Active TRENTAL 400 MG CR-TABS by mouth twice a day PENTOXIFYLLINE 78980988978 Active Glenn Thornton MD Active KLOR-CON 10 10 MEQ CR-TABS Take one by mouth daily POTASSIUM CHLORIDE 66270169639 Active Glenn Thornton MD Active DILANTIN 100 MG CAPS Take three by mouth daily DILANTIN 100 MG CAPS 765834 PHENYTOIN SODIUM EXTENDED Inactive LAMICTAL 150 MG TABS by mouth twice a day LAMICTAL 150 MG TABS 19831025 LAMOTRIGINE Inactive LAMICTAL 100 MG TABS by mouth twice a day LAMICTAL 100 MG TABS 19831024 LAMOTRIGINE Inactive DEPAKOTE SPRINKLES 125 MG CPSP 4 capsules by mouth twice daily DEPAKOTE SPRINKLES 125 MG CPSP 7214246 DIVALPROEX SODIUM Inactive DILANTIN 100 MG CAPS Take one by mouth daily DILANTIN 100 MG CAPS 290501 PHENYTOIN SODIUM EXTENDED Inactive INVEGA 6 MG ORAL [id number] 1 TAB ONCE DAILY INVEGA 6 MG ORAL [id number] PALIPERIDONE Inactive TYLENOL 325 MG TAB 1-2 pills by mouth every 6 hours if needed for pain/fever TYLENOL 325 MG TAB 714973 ACETAMINOPHEN Inactive ZOFRAN 4 MG TABS 1 po q6hr PRN Nausea ZOFRAN 4 MG TABS 906074 ONDANSETRON HCL Inactive ADULT ASPIRIN EC LOW STRENGTH 81 MG TBEC Take one by mouth daily ADULT ASPIRIN EC LOW STRENGTH 81 MG TBEC 072045 ASPIRIN Inactive FUROSEMIDE 40 MG TABS Take one by mouth daily FUROSEMIDE 40 MG TABS 929915 FUROSEMIDE Inactive IPRATROPIUM-ALBUTEROL 0.5-2.5 (3) MG/3ML SOLN 1 neb treatment four times daily , for cough IPRATROPIUM-ALBUTEROL 0.5-2.5 (3) MG/3ML SOLN 0546602 IPRATROPIUM-ALBUTEROL Inactive Advance Directives Directive Description Start Date DURABLE POWER OF CLINICAL LABORATORY SCIENCE PROFESSOR FOR HEALTHCARE PERMISSION TO SHARE ADVANCED DIRECTIVE [...] mg/dL Encounters Code Encounter Date Provider Facility CPT-14483 Level 3 Est. Patient 12:13:33 MANAGER FLIGHT Erik Baptiste MD [facility] CPT-90256 Level 3 Est. Patient 09:40:44 MANAGER FLIGHT Jaycee Garcia [facility] CPT-99439 Level 3 Est. Patient 09:36:32 MANAGER FLIGHT Jaycee Garcia [facility] CPT-24735 Level 4 Est. Patient 16:57:02 MANAGER FLIGHT Pelon Quach MD [facility] CPT-48225 Level 4 Est. Patient 22:19:34 CDT Pelon Quach MD [facility] CPT-61405 Level 3 Est. Patient 00:34:41 CDT Pelon Quach MD [facility]-65393 Level 4 Est. Patient 11:19:14 CDT Pelon Quach MD [facility] CPT-21994 Level 4 Est. Patient 16:43:30 MANAGER FLIGHT Pelon Quach MD [facility] CPT-85316 Level 4 Est. Patient 12:42:18 CDT Pelon Quach MD [facility] CPT-52134 Level 4 Est. Patient 11:52:20 CDT Pelon Quach MD [facility] CPT-02167 Level 4 Est. Patient 13:59:46 CDT Pelon Quach MD [facility] CPT-30893 Level 4 Est. Patient 15:10:48 CDT Pelon Quach MD [facility] CPT-08480 Level 4 Est. Patient 17:13:06 CDT Pelon Quach MD [facility] CPT-16952 Level 4 Est. Patient 18:47:47 CDT Pelon Quach MD [facility] CPT-09156 Level 3 Est. Patient 21:01:27 CDT Pelon Quach MD [facility] CPT-20545 Level 3 Est. Patient 14:07:03 CDT Taty Alvarado MD PhD [facility] CPT-81422 Level 3 New Patient 21:39:52 MANAGER FLIGHT Pelon Quach MD [facility] CPT-44512 Level 3 Est. Patient 14:28:44 CDT Glenn Thornton MD [facility] CPT-57497 Level 3 Est. Patient 16:35:00 CDT Glenn Thornton MD [facility] CPT-51285 Level 4 New Patient 17:06:27 CDT Glenn Thornton MD [facility] [place] Procedures Code Procedure Name Date Entry Date Standard Description CPT-07732 Cystoscopy 14:28:44 CDT CPT-28580 Bladder Scan 14:28:44 CDT CPT-89603 Indwelling Cath Change 17:06:27 CDT CPT-92013 Cystoscopy 17:06:27 CDT
--- OUTSIDE RECORDS SUMMARY | 2018-06-22 12:28 | XMS REPORT | Clinical Summary ---
Author Author Admin, ONESIMO Organization [facility] [place] Address Unknown Phone Unavailable Allergies, Adverse Reactions, [...] MD Unspecified fall Seasonal allergies 477.9 Active Pleon Quach MD Allergic rhinitis, cause unspecified Diabetes [...] 1 po q8hr PRN Congestion DIPHENHYDRAMINE HCL 19024073934 Active Pelon Quach MD Active ZOFRAN 4 MG ORAL TABLET 1 po q6hr PRN Nausea ONDANSETRON HCL 04836256879 Active Pelon Quach MD Active IMODIUM A-D 2 MG ORAL TABLET One QID prn diarrhea. No more than 4 tabs daily LOPERAMIDE HCL 89775461510 Active Pelon Quach MD Active TYLENOL 325 MG ORAL TABLET 2 tabs po prn for pain elevated temp ACETAMINOPHEN 93765181968 Active Pelon Quach MD Active MUCINEX D 60-600 MG ORAL TABLET EXTENDED RELEASE 12 HOUR 1 po BID PRN Congestion PSEUDOEPHEDRINE-GUAIFENESIN 52043577895 Active Pelon Quach MD Active IBUPROFEN 200 MG ORAL TABLET q 6hrs prn pain IBUPROFEN 47758154712 Active Pelon Quach MD Active LORATADINE 10 MG ORAL TABLET 1 tablet by mouth daily prn LORATADINE 89263184364 Active Pelon Quach MD Active BANOPHEN 25 MG ORAL TABLET 1 po every 6 hours PRN allergic reaction DIPHENHYDRAMINE HCL 24188172880 No Longer Active Pelon Quach MD Active EASY TOUCH ALCOHOL PREP MEDIUM 70 % PAD Use with each finger stick and insulin admin Dx: E11.9 ALCOHOL SWABS 04219312980 Active Jaycee Arell PATIENT FINANCIAL ADVOCATE Active HUMALOG KWIKPEN 100 UNIT/ML SUBCUTANEOUS SOLUTION PEN-INJECTOR inject 10 units subcutaneously before meals also sliding scale INSULIN LISPRO 57985320121 Active Jaycee Shan VICTORINO Active NOVOLOG 100 UNIT/ML SUBCUTANEOUS SOLUTION 10 UNITS BID BEFORE BREAKFAST AND LUNCH INSULIN ASPART 14828494929 No Longer Active NICOLETTE Hitchcock Active NOVOLOG 100 UNIT/ML SUBCUTANEOUS SOLUTION 10 UNITS BEFORE SUPPER INSULIN ASPART 71526176757 No Longer Active NICOLETTE Hitchcock Active INVEGA 6 MG ORAL TABLET EXTENDED RELEASE 24 HOUR 1 po daily for schizophrenia PALIPERIDONE 16544098617 Active Pelon Quach MD Active LAMICTAL 25 MG ORAL TABLET 2 tabs by mouth twice a day LAMOTRIGINE 96679095000 No Longer Active Pelon Quach MD Active BACTROBAN 2 % EXTERNAL OINTMENT Apply to affected area BID 06/28 MUPIROCIN 02814944925 No Longer Active Pelon Quach MD Active INVEGA 6 MG ORAL TABLET EXTENDED RELEASE 24 HOUR 1 po daily for Schizophrenia PALIPERIDONE 22793177273 No Longer Active Pelon Quach MD Active TYLENOL 8 HOUR 650 MG ORAL TABLET EXTENDED RELEASE Take 1 tab po up to 3 times daily as needed ACETAMINOPHEN 00036881102 No Longer Active Pelon Quach MD Active IPRATROPIUM-ALBUTEROL 0.5-2.5 (3) MG/3ML INHALATION SOLUTION 1 neb treatment QID for cough Dx: J06.9 IPRATROPIUM-ALBUTEROL 52759265067 No Longer Active Pelon Quach MD Active BACTRIM DS 800-160 MG ORAL TABLET 1 tab by mouth twice daily 2016 TRIMETHOPRIM-SULFAMETHOXAZOLE 77955383501 No Longer Active Pelon Quach MD Active BACTRIM DS 800-160 MG ORAL TABLET 1 twice a day SULFAMETHOXAZOLE-TRIMETHOPRIM 57518740849 No Longer Active Pelon Quach MD Active IPRATROPIUM-ALBUTEROL 0.5-2.5 (3) MG/3ML INHALATION SOLUTION 1 neb treatment four times daily, for cough IPRATROPIUM-ALBUTEROL 93098155264 No Longer Active Jaycee Arell PATIENT FINANCIAL ADVOCATE Active FUROSEMIDE 40 MG ORAL TABLET Take one by mouth daily FUROSEMIDE 89065001905 No Longer Active Jaycee Arell PATIENT FINANCIAL ADVOCATE Active LANTUS 100 UNIT/ML SUBCUTANEOUS SOLUTION 20 SUBQ AT HS INSULIN GLARGINE 61904340103 Active Jaycee Arell PATIENT FINANCIAL ADVOCATE Active LAMICTAL 25 MG ORAL TABLET 2 tabs po BID for convulsions LAMOTRIGINE 69332600874 Active Jaycee Arell PATIENT FINANCIAL ADVOCATE Active LASIX 20 MG ORAL TABLET 1 tablet by mouth every morning for edema FUROSEMIDE 18095436394 Active Jaycee Arell PATIENT FINANCIAL ADVOCATE Active BUSPIRONE HCL 10 MG ORAL TABLET 1 tab by mouth BID BUSPIRONE HCL 83547894622 Active Jaycee Juan Davidll PATIENT FINANCIAL ADVOCATE Active ADULT ASPIRIN EC LOW STRENGTH 81 MG ORAL TABLET DELAYED RELEASE Take one by mouth daily ASPIRIN 79126635426 No Longer Active Pelon Quach MD Active ASPIRIN 81 MG ORAL TABLET 1 po qd ASPIRIN 57247856267 Active Pelon Quach MD Active ZOFRAN 4 MG ORAL TABLET 1 po q6hr PRN Nausea ONDANSETRON HCL 18056162436 No Longer Active Pelon Quach MD Active TYLENOL 325 MG ORAL TABLET 1-2 pills by mouth every 6 hours if needed for pain /fever ACETAMINOPHEN 39369229499 No Longer Active Pelon Quach MD Active INVEGA 6 MG ORAL TABLET EXTENDED RELEASE 24 HOUR 1 TAB ONCE DAILY PALIPERIDONE 05408646021 No Longer Active Carly Suggs Active TEGRETOL 200 MG ORAL TABLET by mouth twice a day CARBAMAZEPINE 64054810044 Active Taty Alvarado MD PhD Active FLOMAX 0.4 MG ORAL CAPSULE 1 Daily TAMSULOSIN HCL 95954104930 Active Marianela Juarez Active DILANTIN 100 MG ORAL CAPSULE Take one by mouth daily PHENYTOIN SODIUM EXTENDED 30451080400 No Longer Active Marianela Juarez Active DEPAKOTE SPRINKLES 125 MG ORAL CAPSULE DELAYED RELEASE SPRINKLE 4 capsules by mouth twice daily DIVALPROEX SODIUM 28733479963 No Longer Active Marianelachandrika Juarez Active LAMICTAL 200 MG ORAL TABLET 1 BY MOUTH TWICE A DAY LAMOTRIGINE 37932000432 Active Marianela Juarez Active LAMICTAL 100 MG ORAL TABLET by mouth twice a day LAMOTRIGINE 35245420558 No Longer Active Marianelachandrika Juarez Active LAMICTAL 150 MG ORAL TABLET by mouth twice a day LAMOTRIGINE 22112465952 No Longer Active Marianelachandrika Juraez Active DILANTIN 100 MG ORAL CAPSULE Take three by mouth daily PHENYTOIN SODIUM EXTENDED 40601768088 No Longer Active Marianela Juarez Active SENOKOT 8.6 MG ORAL TABLET take at bedtime SENNOSIDES 89012943313 Active Pelon Quach MD Active LIPITOR 20 MG ORAL TABLET take at bedtime ATORVASTATIN CALCIUM 64620256036 Active Glenn Thornton MD Active LISINOPRIL 2.5 MG ORAL TABLET Take one by mouth daily LISINOPRIL 99517348598 Active Glenn Thornton MD Active TRENTAL 400 MG CR-TABS by mouth twice a day PENTOXIFYLLINE 32860043375 Active Glenn Thornton MD Active KLOR-CON 10 10 MEQ ORAL TABLET EXTENDED RELEASE Take one by mouth daily POTASSIUM CHLORIDE 39161945407 Active Glenn Thornton MD Active DILANTIN 100 MG ORAL CAPSULE Take three by mouth daily DILANTIN 100 MG ORAL CAPSULE 514506 PHENYTOIN SODIUM EXTENDED Inactive LAMICTAL 150 MG ORAL TABLET by mouth twice a day LAMICTAL 150 MG ORAL TABLET 569335 LAMOTRIGINE Inactive LAMICTAL 100 MG ORAL TABLET by mouth twice a day LAMICTAL 100 MG ORAL TABLET 590571 LAMOTRIGINE Inactive DEPAKOTE SPRINKLES 125 MG ORAL CAPSULE DELAYED RELEASE SPRINKLE 4 capsules by mouth twice daily DEPAKOTE SPRINKLES 125 MG ORAL CAPSULE DELAYED RELEASE SPRINKLE 7942579 DIVALPROEX SODIUM Inactive DILANTIN 100 MG ORAL CAPSULE Take one by mouth daily DILANTIN 100 MG ORAL CAPSULE 564170 PHENYTOIN SODIUM EXTENDED Inactive INVEGA 6 MG ORAL TABLET EXTENDED RELEASE 24 HOUR 1 TAB ONCE DAILY INVEGA 6 MG ORAL TABLET EXTENDED RELEASE 24 HOUR PALIPERIDONE Inactive TYLENOL 325 MG ORAL TABLET 1-2 pills by mouth every 6 hours if needed for pain /fever TYLENOL 325 MG ORAL TABLET 907153 ACETAMINOPHEN Inactive ZOFRAN 4 MG ORAL TABLET 1 po q6hr PRN Nausea ZOFRAN 4 MG ORAL TABLET 937716 ONDANSETRON HCL Inactive ADULT ASPIRIN EC LOW STRENGTH 81 MG ORAL TABLET DELAYED RELEASE Take one by mouth daily ADULT ASPIRIN EC LOW STRENGTH 81 MG ORAL TABLET DELAYED RELEASE 224641 ASPIRIN Inactive FUROSEMIDE 40 MG ORAL TABLET Take one by mouth daily FUROSEMIDE 40 MG ORAL TABLET 563060 FUROSEMIDE Inactive BACTRIM DS 800-160 MG ORAL TABLET 1 twice a day BACTRIM DS 800-160 MG ORAL TABLET 846245 SULFAMETHOXAZOLE-TRIMETHOPRIM Inactive IPRATROPIUM-ALBUTEROL 0.5-2.5 (3) MG/3ML INHALATION SOLUTION 1 neb treatment QID for cough Dx: J06.9 IPRATROPIUM-ALBUTEROL 0.5-2.5 ( 3) MG/3ML INHALATION SOLUTION 4453768 IPRATROPIUM-ALBUTEROL Inactive TYLENOL 8 HOUR 650 MG [...] BID 06/28 BACTROBAN 2 % EXTERNAL OINTMENT 218733 MUPIROCIN Inactive LAMICTAL 25 MG ORAL TABLET 2 tabs by mouth twice a day LAMICTAL 25 MG ORAL TABLET 005491 LAMOTRIGINE Inactive NOVOLOG 100 UNIT/ML SUBCUTANEOUS SOLUTION 10 UNITS BEFORE SUPPER NOVOLOG 100 UNIT/ML SUBCUTANEOUS SOLUTION INSULIN ASPART Inactive NOVOLOG 100 UNIT/ML SUBCUTANEOUS SOLUTION 10 UNITS BID BEFORE BREAKFAST AND LUNCH NOVOLOG 100 UNIT/ML SUBCUTANEOUS SOLUTION INSULIN ASPART Inactive BANOPHEN 25 MG ORAL TABLET 1 po every 6 hours PRN allergic reaction BANOPHEN 25 MG ORAL TABLET 6680935 DIPHENHYDRAMINE HCL Inactive IPRATROPIUM-ALBUTEROL 0.5-2.5 (3) MG/3ML INHALATION SOLUTION 1 neb treatment four times daily, for cough IPRATROPIUM-ALBUTEROL 0.5- 2.5 (3) MG/3ML INHALATION SOLUTION 6108267 IPRATROPIUM-ALBUTEROL Inactive BACTRIM DS 800-160 MG ORAL TABLET 1 tab by mouth twice daily 2016 BACTRIM DS 800-160 MG ORAL TABLET 088698 TRIMETHOPRIM- SULFAMETHOXAZOLE Inactive Advance Directives Directive Description Start Date DURABLE POWER OF ECHOCARDIOGRAPHY RADIOLOGY TECHNOLOGIST FOR HEALTHCARE PERMISSION TO SHARE ADVANCED DIRECTIVE [...] Panel - Chemistry sodium, serum 127 mmol/L 733-844 7237/07/28 potassium, serum 5.3 mmol/L 3.5-5.2 chloride, serum 92 mmol/L 98-107 carbon dioxide, venous blood 32.4 mmol/L 21.0-32.0 blood glucose 182 mg/dL 65-110 calcium, serum 9.4 mg/dL 8.5-10.1 urea nitrogen, blood 14 mg/dL 7-18 creatinine, serum 0.94 mg/dL 0.60-1.30 Lab Report: CBC, Comp. Metabolic Panel - Chemistry sodium, serum 129 mmol/L 299-196 9801/07/12 carbon dioxide, venous blood 27.8 mmol/L 21.0-32.0 [...] HGBA1C - Chemistry sodium, serum 123 mmol/L 077-820 3172/04/25 carbon dioxide, venous blood 26.2 mmol/L 21.0-32.0 [...] mg/dL Encounters Code Encounter Date Provider Facility CPT-47706 Level 4 Est. Patient 14:46:38 CDT Pelon Quach MD [facility] CPT-73111 Level 4 Est. Patient 08:43:11 CDT Pelon Quach MD [facility] CPT-98591 Level 4 Est. Patient 14:27:30 CDT Pelon Quach MD [facility] CPT-36955 Level 3 Est. Patient 10:32:17 CDT Jaycee Torrez [facility] CPT-56380 Level 3 Est. Patient 10:15:07 CDT Pelon Quach MD [facility] CPT-43983 Level 4 Est. Patient 09:30:54 CDT Pelon Quach MD [facility] CPT-81919 Level 4 Est. Patient 14:34:25 CDT Pelon Quach MD [facility] CPT-14264 Level 3 Est. Patient 11:51:35 RETAIL SERVICE REPRESENTATIVE Rick Henson DO [facility] CPT-03003 Level 3 Est. Patient 12:13:33 RETAIL SERVICE REPRESENTATIVE Erik Baptiste MD [facility] CPT-77839 Level 3 Est. Patient 09:40:44 RETAIL SERVICE REPRESENTATIVE Jaycee Torrez [facility]-85393 Level 3 Est. Patient 09:36:32 RETAIL SERVICE REPRESENTATIVE Jaycee Torrez [facility]-68226 Level 4 Est. Patient 16:57:02 RETAIL SERVICE REPRESENTATIVE Pelon Quach MD [facility]-82309 Level 4 Est. Patient 22:19:34 CDT Pelon Quach MD [facility]-22913 Level 3 Est. Patient 00:34:41 CDT Pelon Quach MD [facility]-60370 Level 4 Est. Patient 11:19:14 CDT Pelon Quach MD [facility]-33472 Level 4 Est. Patient 16:43:30 RETAIL SERVICE REPRESENTATIVE Pelon Quach MD [facility]-06070 Level 4 Est. Patient 12:42:18 CDT Pelon Quach MD [facility]-11471 Level 4 Est. Patient 11:52:20 CDT Pelon Quach MD [facility]-39608 Level 4 Est. Patient 13:59:46 CDT Pelon Quach MD [facility]-65313 Level 4 Est. Patient 15:10:48 CDT Pelon Quach MD [facility]-46395 Level 4 Est. Patient 17:13:06 CDT Pelon Quach MD [facility]-71555 Level 4 Est. Patient 18:47:47 CDT Pelon Quach MD [facility]-61977 Level 3 Est. Patient 21:01:27 CDT Pelon Quach MD [facility]-89157 Level 3 Est. Patient 14:07:03 CDT Taty Alvarado MD, PhD [facility] CPT-60530 Level 3 New Patient 21:39:52 RETAIL SERVICE REPRESENTATIVE Pelon Quach MD [facility] CPT-50999 Level 3 Est. Patient 14:28:44 CDT Glenn Thornton MD [facility] CPT-49023 Level 3 Est. Patient 16:35:00 CDT Glenn Thornton MD [facility] CPT-39435 Level 4 New Patient 17:06:27 CDT Glenn Thornton MD [facility] Procedures Code Procedure Name Date Entry Date Standard Description CPT-G0438 Initial Annual Wellness Exam 09:30:54 CDT CPT-99560 Prevnar 13 Intramuscular Suspension 14:34:25 CDT 12/27 CPT-26183 Chest 2V Frontal and Lat - XRAY USE ONLY 11:56:13 RETAIL SERVICE REPRESENTATIVE CPT-12786 Cystoscopy 14:28:44 CDT CPT-96377 Bladder Scan 14:28:44 CDT CPT-94080 Indwelling Cath Change 17:06:27 CDT CPT-46088 Cystoscopy 17:06:27 CDT
--- OUTSIDE RECORDS SUMMARY | 2018-06-22 12:29 | XMS REPORT | Clinical Summary ---
Author Author Admin, ONESIMO Organization [facility] [place] Address Unknown Phone Unavailable Allergies, Adverse Reactions, [...] as needed for muscle spasm/pain CYCLOBENZAPRINE HCL 53773733147 Active Pelon Quach MD Active BENADRYL 25 MG ORAL CAPSULE 1 po q8hr PRN Congestion DIPHENHYDRAMINE HCL 64774513870 Active Pelon Quach MD Active ZOFRAN 4 MG ORAL TABLET 1 po q6hr PRN Nausea ONDANSETRON HCL 57698291450 Active Pelon Quach MD Active IMODIUM A-D 2 MG ORAL TABLET One QID prn diarrhea. No more than 4 tabs daily LOPERAMIDE HCL 31213881927 Active Pelon Quach MD Active TYLENOL 325 MG ORAL TABLET 2 tabs po prn for pain elevated temp ACETAMINOPHEN 50743936849 Active Pelon Quach MD Active MUCINEX D 60-600 MG ORAL TABLET EXTENDED RELEASE 12 HOUR 1 po BID PRN Congestion PSEUDOEPHEDRINE-GUAIFENESIN 53223973573 Active Pelon Quach MD Active IBUPROFEN 200 MG ORAL TABLET q 6hrs prn pain IBUPROFEN 79538711384 Active Pelon Quach MD Active LORATADINE 10 MG ORAL TABLET 1 tablet by mouth daily prn LORATADINE 41753110714 Active Pelon Quach MD Active BANOPHEN 25 MG ORAL TABLET 1 po every 6 hours PRN allergic reaction DIPHENHYDRAMINE HCL 94370778673 No Longer Active Pelon Quach MD Active EASY TOUCH ALCOHOL PREP MEDIUM 70 % PAD Use with each finger stick and insulin admin Dx: E11.9 ALCOHOL SWABS 66459520863 Active Jaycee Torrez APRN Active HUMALOG KWIKPEN 100 UNIT/ML SUBCUTANEOUS SOLUTION PEN-INJECTOR inject 10 units subcutaneously before meals also sliding scale INSULIN LISPRO 29040663909 Active Pelon Quach MD Active NOVOLOG 100 UNIT/ML SUBCUTANEOUS SOLUTION 10 UNITS BID BEFORE BREAKFAST AND LUNCH INSULIN ASPART 62957773954 No Longer Active NICOLETTE Hitchcock Active NOVOLOG 100 UNIT/ML SUBCUTANEOUS SOLUTION 10 UNITS BEFORE SUPPER INSULIN ASPART 13405985132 No Longer Active NICOLETTE Hitchcock Active INVEGA 6 MG ORAL TABLET EXTENDED RELEASE 24 HOUR 1 po daily for schizophrenia PALIPERIDONE 60288251842 Active Pelon Quach MD Active LAMICTAL 25 MG ORAL TABLET 2 tabs by mouth twice a day LAMOTRIGINE 33476044233 No Longer Active Pelon Quach MD Active BACTROBAN 2 % EXTERNAL OINTMENT Apply to affected area BID 06/28 MUPIROCIN 76664249893 No Longer Active Pelon Quach MD Active INVEGA 6 MG ORAL TABLET EXTENDED RELEASE 24 HOUR 1 po daily for Schizophrenia PALIPERIDONE 31664103534 No Longer Active Pelon Quach MD Active TYLENOL 8 HOUR 650 MG ORAL TABLET EXTENDED RELEASE Take 1 tab po up to 3 times daily as needed ACETAMINOPHEN 87880299447 No Longer Active Pelon Quach MD Active IPRATROPIUM-ALBUTEROL 0.5-2.5 (3) MG/3ML INHALATION SOLUTION 1 neb treatment QID for cough Dx: J06.9 IPRATROPIUM-ALBUTEROL 76285927011 No Longer Active Pelon Quach MD Active BACTRIM DS 800-160 MG ORAL TABLET 1 tab by mouth twice daily 2016 TRIMETHOPRIM-SULFAMETHOXAZOLE 79580500919 No Longer Active Pelon Quach MD Active BACTRIM DS 800-160 MG ORAL TABLET 1 twice a day SULFAMETHOXAZOLE-TRIMETHOPRIM 28162785174 No Longer Active Pelon Quach MD Active IPRATROPIUM-ALBUTEROL 0.5-2.5 (3) MG/3ML INHALATION SOLUTION 1 neb treatment four times daily, for cough IPRATROPIUM-ALBUTEROL 89264540979 No Longer Active Jaycee Torrez APRN Active FUROSEMIDE 40 MG ORAL TABLET Take one by mouth daily FUROSEMIDE 31450703709 No Longer Active Jaycee Torrez APRN Active LANTUS 100 UNIT/ML SUBCUTANEOUS SOLUTION 20 SUBQ AT HS INSULIN GLARGINE 03019891289 Active Pelon Quach MD Active LAMICTAL 25 MG ORAL TABLET 2 tabs po BID for convulsions LAMOTRIGINE 36111494706 Active Jaycee Torrez APRN Active LASIX 20 MG ORAL TABLET 1 tablet by mouth every morning for edema FUROSEMIDE 64474660193 Active Jaycee Torrez APRN Active BUSPIRONE HCL 10 MG ORAL TABLET 1 tab by mouth BID BUSPIRONE HCL 25931348582 Active Jaycee Torrez APRN Active ADULT ASPIRIN EC LOW STRENGTH 81 MG ORAL TABLET DELAYED RELEASE Take one by mouth daily ASPIRIN 56119852730 No Longer Active Pelon Quach MD Active ASPIRIN 81 MG ORAL TABLET 1 po qd ASPIRIN 00452795343 Active Pelon Quach MD Active ZOFRAN 4 MG ORAL TABLET 1 po q6hr PRN Nausea ONDANSETRON HCL 17680516989 No Longer Active Pelon Quach MD Active TYLENOL 325 MG ORAL TABLET 1-2 pills by mouth every 6 hours if needed for pain /fever ACETAMINOPHEN 01697022018 No Longer Active Pelon Quach MD Active INVEGA 6 MG ORAL TABLET EXTENDED RELEASE 24 HOUR 1 TAB ONCE DAILY PALIPERIDONE 42483299896 No Longer Active Carly Suggs Active TEGRETOL 200 MG ORAL TABLET by mouth twice a day CARBAMAZEPINE 34352493405 Active Taty Alvarado MD PhD Active FLOMAX 0.4 MG ORAL CAPSULE 1 Daily TAMSULOSIN HCL 59579677814 Active Marianelachandrika Juarez Active DILANTIN 100 MG ORAL CAPSULE Take one by mouth daily PHENYTOIN SODIUM EXTENDED 61504229871 No Longer Active Marianelachandrika Shankarronny Active DEPAKOTE SPRINKLES 125 MG ORAL CAPSULE DELAYED RELEASE SPRINKLE 4 capsules by mouth twice daily DIVALPROEX SODIUM 12951220224 No Longer Active Marianela Raida Active LAMICTAL 200 MG ORAL TABLET 1 BY MOUTH TWICE A DAY LAMOTRIGINE 34069138207 Active Marianela Raida Active LAMICTAL 100 MG ORAL TABLET by mouth twice a day LAMOTRIGINE 58425519681 No Longer Active Marianela Raida Active LAMICTAL 150 MG ORAL TABLET by mouth twice a day LAMOTRIGINE 09410443343 No Longer Active Marianelachandrika Shankarida Active DILANTIN 100 MG ORAL CAPSULE Take three by mouth daily PHENYTOIN SODIUM EXTENDED 66636776395 No Longer Active Marianela Larry Active SENOKOT 8.6 MG ORAL TABLET take at bedtime SENNOSIDES 44673961301 Active Pelon Quach MD Active LIPITOR 20 MG ORAL TABLET take at bedtime ATORVASTATIN CALCIUM 70402560842 Active Glenn Thornton MD Active LISINOPRIL 2.5 MG ORAL TABLET Take one by mouth daily LISINOPRIL 35450664276 Active Glenn Thornton MD Active TRENTAL 400 MG CR-TABS by mouth twice a day PENTOXIFYLLINE 73429227207 Active Glenn Thornton MD Active KLOR-CON 10 10 MEQ ORAL TABLET EXTENDED RELEASE Take one by mouth daily POTASSIUM CHLORIDE 33630110090 Active Glenn Thornton MD Active DILANTIN 100 MG ORAL CAPSULE Take three by mouth daily DILANTIN 100 MG ORAL CAPSULE 527665 PHENYTOIN SODIUM EXTENDED Inactive LAMICTAL 150 MG [...] 125 MG ORAL CAPSULE DELAYED RELEASE SPRINKLE 3081848 DIVALPROEX SODIUM Inactive DILANTIN 100 MG ORAL CAPSULE Take one by mouth daily DILANTIN 100 MG ORAL CAPSULE 586773 PHENYTOIN SODIUM EXTENDED Inactive INVEGA 6 MG ORAL TABLET EXTENDED RELEASE 24 HOUR 1 TAB ONCE DAILY INVEGA 6 MG ORAL TABLET EXTENDED RELEASE 24 HOUR PALIPERIDONE Inactive TYLENOL 325 MG ORAL TABLET 1-2 pills by mouth every 6 hours if needed for pain /fever TYLENOL 325 MG ORAL TABLET 886715 ACETAMINOPHEN Inactive ZOFRAN 4 MG ORAL TABLET 1 po q6hr PRN Nausea ZOFRAN 4 MG ORAL TABLET 665383 ONDANSETRON HCL Inactive ADULT ASPIRIN EC LOW STRENGTH 81 MG ORAL TABLET DELAYED RELEASE Take one by mouth daily ADULT ASPIRIN EC LOW STRENGTH 81 MG ORAL TABLET DELAYED RELEASE 463014 ASPIRIN Inactive FUROSEMIDE 40 MG ORAL TABLET Take one by mouth daily FUROSEMIDE 40 MG ORAL TABLET 279453 FUROSEMIDE Inactive BACTRIM DS 800-160 MG ORAL TABLET 1 twice a day BACTRIM DS 800-160 MG ORAL TABLET 146514 SULFAMETHOXAZOLE-TRIMETHOPRIM Inactive IPRATROPIUM-ALBUTEROL 0.5-2.5 (3) MG/3ML INHALATION SOLUTION 1 neb treatment QID for cough Dx: J06.9 IPRATROPIUM-ALBUTEROL 0.5-2.5 ( 3) MG/3ML INHALATION SOLUTION 0757070 IPRATROPIUM-ALBUTEROL Inactive TYLENOL 8 HOUR 650 MG [...] BID 06/28 BACTROBAN 2 % EXTERNAL OINTMENT 539637 MUPIROCIN Inactive LAMICTAL 25 MG ORAL TABLET 2 tabs by mouth twice a day LAMICTAL 25 MG ORAL TABLET 249540 LAMOTRIGINE Inactive NOVOLOG 100 UNIT/ML SUBCUTANEOUS SOLUTION 10 UNITS BEFORE SUPPER NOVOLOG 100 UNIT/ML SUBCUTANEOUS SOLUTION INSULIN ASPART Inactive NOVOLOG 100 UNIT/ML SUBCUTANEOUS SOLUTION 10 UNITS BID BEFORE BREAKFAST AND LUNCH NOVOLOG 100 UNIT/ML SUBCUTANEOUS SOLUTION INSULIN ASPART Inactive BANOPHEN 25 MG ORAL TABLET 1 po every 6 hours PRN allergic reaction BANOPHEN 25 MG ORAL TABLET 3131523 DIPHENHYDRAMINE HCL Inactive IPRATROPIUM-ALBUTEROL 0.5-2.5 (3) MG/3ML INHALATION SOLUTION 1 neb treatment four times daily, for cough IPRATROPIUM-ALBUTEROL 0.5- 2.5 (3) MG/3ML INHALATION SOLUTION 2799648 IPRATROPIUM-ALBUTEROL Inactive BACTRIM DS 800-160 MG ORAL TABLET 1 tab by mouth twice daily 2016 BACTRIM DS 800-160 MG ORAL TABLET 972245 TRIMETHOPRIM- SULFAMETHOXAZOLE Inactive Advance Directives Directive Description Start Date DURABLE POWER OF ROOFING SALES REPRESENTATIVE FOR HEALTHCARE PERMISSION TO SHARE ADVANCED DIRECTIVE [...] Panel - Chemistry sodium, serum 127 mmol/L 115-114 6064/07/28 potassium, serum 5.3 mmol/L 3.5-5.2 chloride, serum 92 mmol/L 98-107 carbon dioxide, venous blood 32.4 mmol/L 21.0-32.0 blood glucose 182 mg/dL 65-110 calcium, serum 9.4 mg/dL 8.5-10.1 urea nitrogen, blood 14 mg/dL 7-18 creatinine, serum 0.94 mg/dL 0.60-1.30 Lab Report: CBC, Comp. Metabolic Panel - Chemistry sodium, serum 129 mmol/L 199-010 1186/07/12 carbon dioxide, venous blood 27.8 mmol/L 21.0-32.0 [...] HGBA1C - Chemistry sodium, serum 123 mmol/L 057-236 4082/04/25 carbon dioxide, venous blood 26.2 mmol/L 21.0-32.0 [...] mg/dL Encounters Code Encounter Date Provider Facility CPT-71144 [id number] Vst-Est Level III 13:36:24 CDT Pelon Quach MD [facility]-99413 Level 4 Est. Patient 18:11:18 CDT Pelon Quach MD [facility] CPT-06877 Level 4 Est. Patient 14:46:38 CDT Pelon Quach MD [facility]-86910 Level 4 Est. Patient 08:43:11 CDT Pelon Quach MD [facility]-68776 Level 4 Est. Patient 14:27:30 CDT Pelon Quach MD [facility]-81431 Level 3 Est. Patient 10:32:17 CDT Jaycee Torrez [facility]-46215 Level 3 Est. Patient 10:15:07 CDT Pelon Quach MD [facility] CPT-90512 Level 4 Est. Patient 09:30:54 CDT Pelon Quach MD [facility]-92178 Level 4 Est. Patient 14:34:25 CDT Pelon Quach MD [facility]-99291 Level 3 Est. Patient 11:51:35 SHOE REPAIR SUPERVISOR Rick Henson DO [facility]-72356 Level 3 Est. Patient 12:13:33 SHOE REPAIR SUPERVISOR Erik Baptiste MD [facility]-85928 Level 3 Est. Patient 09:40:44 SHOE REPAIR SUPERVISOR Jaycee Torrez [facility]-08046 Level 3 Est. Patient 09:36:32 SHOE REPAIR SUPERVISOR Jaycee Torrez [facility]-70578 Level 4 Est. Patient 16:57:02 SHOE REPAIR SUPERVISOR Pelon Quach MD [facility] CPT-85872 Level 4 Est. Patient 22:19:34 CDT Pelon Quach MD [facility]-47564 Level 3 Est. Patient 00:34:41 CDT Pelon Quach MD [facility]-67738 Level 4 Est. Patient 11:19:14 CDT Pelon Quach MD [facility]-00452 Level 4 Est. Patient 16:43:30 SHOE REPAIR SUPERVISOR Pelon Quach MD [facility]-87196 Level 4 Est. Patient 12:42:18 CDT Pelon Quach MD [facility] CPT-55896 Level 4 Est. Patient 11:52:20 CDT Pelon Quach MD [facility]-06140 Level 4 Est. Patient 13:59:46 CDT Pelon Quach MD [facility]-72412 Level 4 Est. Patient 15:10:48 CDT Pelon Quach MD [facility]-91427 Level 4 Est. Patient 17:13:06 CDT Pelon Quach MD [facility] CPT-40787 Level 4 Est. Patient 18:47:47 CDT Pelon Quach MD [facility]-93088 Level 3 Est. Patient 21:01:27 CDT Pelon Quach MD [facility]-11785 Level 3 Est. Patient 14:07:03 CDT Taty Alvarado MD PhD [facility] CPT-04924 Level 3 New Patient 21:39:52 SHOE REPAIR SUPERVISOR Pelon Quach MD [facility]-74234 Level 3 Est. Patient 14:28:44 CDT Glenn Thornton MD [facility]-99601 Level 3 Est. Patient 16:35:00 CDT Glenn Thornton MD [facility] CPT-67000 Level 4 New Patient 17:06:27 CDT Glenn Thornton MD [facility] [place] Procedures Code Procedure Name Date Entry Date Standard Description CPT-G0439 Subsequent Annual Wellness Exam 18:11:17 CDT CPT-G0438 Initial Annual Wellness Exam 09:30:54 CDT CPT-68758 Prevnar 13 Intramuscular Suspension 14:34:25 CDT 12/27 CPT-50997 Chest 2V Frontal and Lat - XRAY USE ONLY 11:56:13 SHOE REPAIR SUPERVISOR CPT-62269 Cystoscopy 14:28:44 CDT CPT-98088 Bladder Scan 14:28:44 CDT CPT-07423 Indwelling Cath Change 17:06:27 CDT CPT-73170 Cystoscopy 17:06:27 CDT
--- OUTSIDE RECORDS SUMMARY | 2018-06-22 12:30 | XMS REPORT | Clinical Summary ---
Author Author Admin, ONESIMO Organization [facility] [employer] [place] Address Unknown Phone Unavailable Allergies, [...] MG TABS 1 twice a day SULFAMETHOXAZOLE-TRIMETHOPRIM 06307941785 No Longer Active Pelon Quach MD Active IPRATROPIUM-ALBUTEROL 0.5-2.5 (3) MG/3ML INH SOLN 1 neb treatment QID for cough Dx: J06.9 IPRATROPIUM-ALBUTEROL 25335272193 Active Jaycee Garcia APRN Active IPRATROPIUM-ALBUTEROL 0.5-2.5 (3) MG/3ML SOLN 1 neb treatment four times daily , for cough IPRATROPIUM-ALBUTEROL 20679199806 No Longer Active Jaycee Jose VICTORINO Active TYLENOL 8 HOUR 650 MG ORAL CR-TABS Take 1 tab po up to 3 times daily as needed ACETAMINOPHEN 64617838109 Active Jaycee Garcia APRN Active FUROSEMIDE 40 MG TABS Take one by mouth daily FUROSEMIDE 01139719974 No Longer Active Jaycee Jose VICTORINO Active LANTUS 100 UNIT/ML SC SOLN 20 SUBQ AT HS INSULIN GLARGINE 04762750139 Active Jaycee Garcia APRN Active LAMICTAL 25 MG ORAL TABS 2 tabs po BID for convulsions LAMOTRIGINE 40857213360 Active Jaycee Garcia APRN Active INVEGA 6 MG ORAL [id number] 1 po daily for Schizophrenia PALIPERIDONE 82118921045 Active Jaycee Garcia APRN Active LASIX 20 MG TAB 1 tablet by mouth every morning for edema FUROSEMIDE 54834439404 Active Jaycee Garcia APRN Active BUSPIRONE HCL 10 MG TABS 1 tab by mouth BID BUSPIRONE HCL 00287071694 Active Jaycee Jose VICTORINO Active NOVOLOG 100 UNIT/ML SC SOLN 10 UNITS BEFORE SUPPER INSULIN ASPART 57346964233 Active Jaycee Garcia APRN Active NOVOLOG 100 UNIT/ML SC SOLN 10 UNITS BID BEFORE BREAKFAST AND LUNCH INSULIN ASPART 80331576872 Active Jaycee Garcia APRN Active LAMICTAL 25 MG TABS 2 tabs by mouth twice a day LAMOTRIGINE 52725062622 Active Pelon Quach MD Active ADULT ASPIRIN EC LOW STRENGTH 81 MG TBEC Take one by mouth daily ASPIRIN 93305978106 No Longer Active Pelon Quach MD Active ASPIRIN 81 MG ORAL TABS 1 po qd ASPIRIN 44992166850 Active Pelon Quach MD Active ZOFRAN 4 MG TABS 1 po q6hr PRN Nausea ONDANSETRON HCL 11102684040 No Longer Active Pelon Quach MD Active TYLENOL 325 MG TAB 1-2 pills by mouth every 6 hours if needed for pain/fever ACETAMINOPHEN 21106131456 No Longer Active Pelon Quach MD Active INVEGA 6 MG ORAL [id number] 1 TAB ONCE DAILY PALIPERIDONE 20116563432 No Longer Active Carly Suggs Active TEGRETOL 200 MG TABS by mouth twice a day CARBAMAZEPINE 38936532659 Active Taty Alvarado MD PhD Active FLOMAX 0.4 MG CAPS 1 Daily TAMSULOSIN HCL 17754857832 Active Marianelachandrika Juarez Active DILANTIN 100 MG CAPS Take one by mouth daily PHENYTOIN SODIUM EXTENDED 21881276305 No Longer Active Marianelachandrika Shankarronny Active DEPAKOTE SPRINKLES 125 MG CPSP 4 capsules by mouth twice daily DIVALPROEX SODIUM 26036342520 No Longer Active Marianelachandrika Shankarida Active LAMICTAL 200 MG ORAL TABS 1 BY MOUTH TWICE A DAY LAMOTRIGINE 22643821871 Active Marianela Raida Active LAMICTAL 100 MG TABS by mouth twice a day LAMOTRIGINE 44397099366 No Longer Active Marianela Raida Active LAMICTAL 150 MG TABS by mouth twice a day LAMOTRIGINE 96788377839 No Longer Active Marianelachandrika Juarez Active DILANTIN 100 MG CAPS Take three by mouth daily PHENYTOIN SODIUM EXTENDED 28367726808 No Longer Active Marianelachandrika Shankarida Active SENOKOT 8.6 MG TABS take at bedtime SENNOSIDES 03459120378 Active Glenn Thornton MD Active LIPITOR 20 MG TABS take at bedtime ATORVASTATIN CALCIUM 55702181780 Active Glenn Thornton MD Active LISINOPRIL 2.5 MG TABS Take one by mouth daily LISINOPRIL 27846265122 Active Glenn Thornton MD Active TRENTAL 400 MG CR-TABS by mouth twice a day PENTOXIFYLLINE 89242238450 Active Glenn Thornton MD Active KLOR-CON 10 10 MEQ CR-TABS Take one by mouth daily POTASSIUM CHLORIDE 18577554714 Active J Ian Thornton MD Active DILANTIN 100 MG CAPS Take three by mouth daily DILANTIN 100 MG CAPS 088388 PHENYTOIN SODIUM EXTENDED Inactive LAMICTAL 150 MG TABS by mouth twice a day LAMICTAL 150 MG TABS 19831025 LAMOTRIGINE Inactive LAMICTAL 100 MG TABS by mouth twice a day LAMICTAL 100 MG TABS 19831024 LAMOTRIGINE Inactive DEPAKOTE SPRINKLES 125 MG CPSP 4 capsules by mouth twice daily DEPAKOTE SPRINKLES 125 MG CPSP 9683714 DIVALPROEX SODIUM Inactive DILANTIN 100 MG CAPS Take one by mouth daily DILANTIN 100 MG CAPS 116623 PHENYTOIN SODIUM EXTENDED Inactive INVEGA 6 MG ORAL SI31R-ONE 1 TAB ONCE DAILY INVEGA 6 MG ORAL [id number] PALIPERIDONE Inactive TYLENOL 325 MG TAB 1-2 pills by mouth every 6 hours if needed for pain/fever TYLENOL 325 MG TAB 653232 ACETAMINOPHEN Inactive ZOFRAN 4 MG TABS 1 po q6hr PRN Nausea ZOFRAN 4 MG TABS 510107 ONDANSETRON HCL Inactive ADULT ASPIRIN EC LOW STRENGTH 81 MG TBEC Take one by mouth daily ADULT ASPIRIN EC LOW STRENGTH 81 MG TBEC 981656 ASPIRIN Inactive FUROSEMIDE 40 MG TABS Take one by mouth daily FUROSEMIDE 40 MG TABS 152270 FUROSEMIDE Inactive BACTRIM DS 800-160 MG TABS 1 twice a day BACTRIM DS 800-160 MG TABS 723735 SULFAMETHOXAZOLE-TRIMETHOPRIM Inactive IPRATROPIUM-ALBUTEROL 0.5-2.5 (3) MG/3ML SOLN 1 neb treatment four times daily , for cough IPRATROPIUM-ALBUTEROL 0.5-2.5 (3) MG/3ML SOLN 3561810 IPRATROPIUM-ALBUTEROL Inactive Advance Directives Directive Description Start Date DURABLE POWER OF BID MANAGER FOR HEALTHCARE PERMISSION TO SHARE ADVANCED [...] mg/dL Encounters Code Encounter Date Provider Facility CPT-13252 Level 4 Est. Patient 09:30:54 CDT Pelon Quach MD [facility]-73786 Level 4 Est. Patient 14:34:25 CDT Pelon Quach MD [facility] CPT-15025 Level 3 Est. Patient 11:51:35 XRAY TECH Rick Henson DO [facility]-65925 Level 3 Est. Patient 12:13:33 XRAY TECH Erik Baptiste MD [facility]-65188 Level 3 Est. Patient 09:40:44 XRAY TECH Jaycee Garcia [facility]-06678 Level 3 Est. Patient 09:36:32 XRAY TECH Jaycee Garcia [facility] CPT-34652 Level 4 Est. Patient 16:57:02 XRAY TECH Pelon Quach MD [facility]-13881 Level 4 Est. Patient 22:19:34 CDT Pelon Quach MD [facility]-15721 Level 3 Est. Patient 00:34:41 CDT Pelon Quach MD [facility]-64415 Level 4 Est. Patient 11:19:14 CDT Pelon Quach MD [facility]-72802 Level 4 Est. Patient 16:43:30 XRAY TECH Pelon Quach MD [facility]-04888 Level 4 Est. Patient 12:42:18 CDT Pelon Quach MD [facility] CPT-46117 Level 4 Est. Patient 11:52:20 CDT Pelon Quach MD [facility] CPT-09478 Level 4 Est. Patient 13:59:46 CDT Pelon Quach MD [facility] CPT-50955 Level 4 Est. Patient 15:10:48 CDT Pelon Quach MD [facility] CPT-03683 Level 4 Est. Patient 17:13:06 CDT Pelon Quach MD [facility] CPT-11003 Level 4 Est. Patient 18:47:47 CDT Pelon Quach MD [facility] CPT-98440 Level 3 Est. Patient 21:01:27 CDT Pelon Quach MD [facility] CPT-56332 Level 3 Est. Patient 14:07:03 CDT Taty Alvarado MD PhD [facility] CPT-52184 Level 3 New Patient 21:39:52 XRAY TECH Pelon Quach MD [facility] CPT-08424 Level 3 Est. Patient 14:28:44 CDT Glenn Thornton MD [facility] CPT-95452 Level 3 Est. Patient 16:35:00 CDT Glenn Thornton MD [facility] CPT-17398 Level 4 New Patient 17:06:27 CDT Glenn Thornton MD [facility] [place] Procedures Code Procedure Name Date Entry Date Standard Description CPT-G0438 Initial Annual Wellness Exam 09:30:54 CDT CPT-70983 Prevnar 13 Intramuscular Suspension 14:34:25 CDT 12/27 CPT-72641 Chest 2V Frontal and Lat - XRAY USE ONLY 11:56:13 XRAY TECH CPT-71397 Cystoscopy 14:28:44 CDT CPT-46482 Bladder Scan 14:28:44 CDT CPT-54474 Indwelling Cath Change 17:06:27 CDT CPT-86103 Cystoscopy 17:06:27 CDT
--- OUTSIDE RECORDS SUMMARY | 2018-06-22 12:31 | XMS REPORT | Clinical Summary ---
Author Author Admin, ONESIMO Organization [facility] [employer] [place] Address Unknown Phone Unavailable Allergies, Adverse Reactions, [...] 6 hours PRN allergic reaction DIPHENHYDRAMINE HCL 01024711164 Active NICOLETTE Hitchcock Active INVEGA 6 MG ORAL [id number] 1 po daily for Schizophrenia PALIPERIDONE 87451942875 No Longer Active Pelon Quach MD Active TYLENOL 8 HOUR 650 MG ORAL CR-TABS Take 1 tab po up to 3 times daily as needed ACETAMINOPHEN 19134210065 No Longer Active Pelon Quach MD Active IPRATROPIUM-ALBUTEROL 0.5-2.5 (3) MG/3ML INH SOLN 1 neb treatment QID for cough Dx: J06.9 IPRATROPIUM-ALBUTEROL 15301895860 No Longer Active Pelon Quach MD Active BACTRIM DS 800-160 MG TAB 1 tab by mouth twice daily TRIMETHOPRIM-SULFAMETHOXAZOLE 26461720030 No Longer Active Pelon Quach MD Active BACTROBAN 2 % OINTMENT Apply to affected area BID MUPIROCIN 77358387046 Active Jaycee Garcia APRN Active BACTRIM DS 800-160 MG TABS 1 twice a day SULFAMETHOXAZOLE-TRIMETHOPRIM 12404337658 No Longer Active Pelon Quach MD Active IPRATROPIUM-ALBUTEROL 0.5-2.5 (3) MG/3ML SOLN 1 neb treatment four times daily , for cough IPRATROPIUM-ALBUTEROL 84462131341 No Longer Active Jaycee Garcia APRN Active FUROSEMIDE 40 MG TABS Take one by mouth daily FUROSEMIDE 80787816980 No Longer Active Jaycee Garcia APRN Active LANTUS 100 UNIT/ML SC SOLN 20 SUBQ AT HS INSULIN GLARGINE 33223854007 Active Jaycee Garcia APRN Active LAMICTAL 25 MG ORAL TABS 2 tabs po BID for convulsions LAMOTRIGINE 68107395030 Active Jaycee Garcia APRN Active LASIX 20 MG TAB 1 tablet by mouth every morning for edema FUROSEMIDE 85889845115 Active Jaycee Garcia APRN Active BUSPIRONE HCL 10 MG TABS 1 tab by mouth BID BUSPIRONE HCL 66703521101 Active Jaycee Garcia CORPORATE 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 NOVOLOG 100 UNIT/ML SC SOLN 10 UNITS BEFORE SUPPER INSULIN ASPART 17052569389 Active Jaycee Garcia APRN Active NOVOLOG 100 UNIT/ML SC SOLN 10 UNITS BID BEFORE BREAKFAST AND LUNCH INSULIN ASPART 60058048518 Active Jaycee Garcia APRN Active LAMICTAL 25 MG TABS 2 tabs by mouth twice a day LAMOTRIGINE 82694338284 Active Pelon Quach MD Active ADULT ASPIRIN EC LOW STRENGTH 81 MG TBEC Take one by mouth daily ASPIRIN 15609908335 No Longer Active Pelon Quach MD Active ASPIRIN 81 MG ORAL TABS 1 po qd ASPIRIN 74868794682 Active Pelon Quach MD Active ZOFRAN 4 MG TABS 1 po q6hr PRN Nausea ONDANSETRON HCL 85180182437 No Longer Active Pelon Quach MD Active TYLENOL 325 MG TAB 1-2 pills by mouth every 6 hours if needed for pain/fever ACETAMINOPHEN 43321047305 No Longer Active Pelon Quach MD Active INVEGA 6 MG ORAL [id number] 1 TAB ONCE DAILY PALIPERIDONE 11614950435 No Longer Active Carly Suggs Active TEGRETOL 200 MG TABS by mouth twice a day CARBAMAZEPINE 08778583758 Active Taty Alvarado MD PhD Active FLOMAX 0.4 MG CAPS 1 Daily TAMSULOSIN HCL 45015469301 Active Marianela Juarez Active DILANTIN 100 MG CAPS Take one by mouth daily PHENYTOIN SODIUM EXTENDED 54562728308 No Longer Active Marianela Juarez Active DEPAKOTE SPRINKLES 125 MG CPSP 4 capsules by mouth twice daily DIVALPROEX SODIUM 69531867857 No Longer Active Marianela Juarez Active LAMICTAL 200 MG ORAL TABS 1 BY MOUTH TWICE A DAY LAMOTRIGINE 74515782978 Active Marianela Juarez Active LAMICTAL 100 MG TABS by mouth twice a day LAMOTRIGINE 33826364929 No Longer Active Marianela Juarez Active LAMICTAL 150 MG TABS by mouth twice a day LAMOTRIGINE 61024156843 No Longer Active Marianela Juarez Active DILANTIN 100 MG CAPS Take three by mouth daily PHENYTOIN SODIUM EXTENDED 80756773360 No Longer Active Marianela Shankarronny Active SENOKOT 8.6 MG TABS take at bedtime SENNOSIDES 10866935270 Active Glenn Thornton MD Active LIPITOR 20 MG TABS take at bedtime ATORVASTATIN CALCIUM 76335618675 Active Glenn Thornton MD Active LISINOPRIL 2.5 MG TABS Take one by mouth daily LISINOPRIL 57694628964 Active Glenn Thornton MD Active TRENTAL 400 MG CR-TABS by mouth twice a day PENTOXIFYLLINE 50402418174 Active Glenn Thornton MD Active KLOR-CON 10 10 MEQ CR-TABS Take one by mouth daily POTASSIUM CHLORIDE 26148982051 Active Glenn Thornton MD Active DILANTIN 100 MG CAPS Take three by mouth daily DILANTIN 100 MG CAPS 835146 PHENYTOIN SODIUM EXTENDED Inactive LAMICTAL 150 MG TABS by mouth twice a day LAMICTAL 150 MG TABS 215994 LAMOTRIGINE Inactive LAMICTAL 100 MG TABS by mouth twice a day LAMICTAL 100 MG TABS 19831024 LAMOTRIGINE Inactive DEPAKOTE SPRINKLES 125 MG CPSP 4 capsules by mouth twice daily DEPAKOTE SPRINKLES 125 MG CPSP 8820424 DIVALPROEX SODIUM Inactive DILANTIN 100 MG CAPS Take one by mouth daily DILANTIN 100 MG CAPS 100474 PHENYTOIN SODIUM EXTENDED Inactive INVEGA 6 MG ORAL [id number] 1 TAB ONCE DAILY INVEGA 6 MG ORAL [id number] PALIPERIDONE Inactive TYLENOL 325 MG TAB 1-2 pills by mouth every 6 hours if needed for pain/fever TYLENOL 325 MG TAB 573391 ACETAMINOPHEN Inactive ZOFRAN 4 MG TABS 1 po q6hr PRN Nausea ZOFRAN 4 MG TABS 166637 ONDANSETRON HCL Inactive ADULT ASPIRIN EC LOW STRENGTH 81 MG TBEC Take one by mouth daily ADULT ASPIRIN EC LOW STRENGTH 81 MG TBEC 543939 ASPIRIN Inactive FUROSEMIDE 40 MG TABS Take one by mouth daily FUROSEMIDE 40 MG TABS 113892 FUROSEMIDE Inactive BACTRIM DS 800-160 MG TABS 1 twice a day BACTRIM DS 800-160 MG TABS 478383 SULFAMETHOXAZOLE-TRIMETHOPRIM Inactive IPRATROPIUM-ALBUTEROL 0.5-2.5 (3) MG/3ML INH SOLN 1 neb treatment QID for cough Dx: J06.9 IPRATROPIUM-ALBUTEROL 0.5-2.5 (3) MG/ 3ML INH SOLN 4484610 IPRATROPIUM-ALBUTEROL Inactive TYLENOL 8 HOUR 650 MG ORAL CR-TABS Take 1 tab po up to 3 times daily as needed TYLENOL 8 HOUR 650 MG ORAL CR-TABS ACETAMINOPHEN Inactive INVEGA 6 MG ORAL [id number] 1 po daily for Schizophrenia INVEGA 6 MG ORAL [id number] PALIPERIDONE Inactive IPRATROPIUM-ALBUTEROL 0.5-2.5 (3) MG/3ML SOLN 1 neb treatment four times daily , for cough IPRATROPIUM-ALBUTEROL 0.5-2.5 (3) MG/3ML SOLN 3156294 IPRATROPIUM-ALBUTEROL Inactive BACTRIM DS 800-160 MG TAB 1 tab by mouth twice daily BACTRIM DS 800-160 MG TAB 19821119 TRIMETHOPRIM-SULFAMETHOXAZOLE Inactive Advance Directives Directive Description Start Date DURABLE POWER OF SOFTWARE PRODUCT SPECIALIST FOR HEALTHCARE PERMISSION TO SHARE ADVANCED [...] Panel - Chemistry sodium, serum 127 mmol/L 537-143 0271/07/28 potassium, serum 5.3 mmol/L 3.5-5.2 chloride, serum 92 mmol/L 98-107 carbon dioxide, venous blood 32.4 mmol/L 21.0-32.0 blood glucose 182 mg/dL 65-110 calcium, serum 9.4 mg/dL 8.5-10.1 urea nitrogen, blood 14 mg/dL 7-18 creatinine, serum 0.94 mg/dL 0.60-1.30 Lab Report: CBC, Comp. Metabolic Panel - Chemistry sodium, serum 129 mmol/L 225-660 1090/07/12 carbon dioxide, venous blood 27.8 mmol/L 21.0-32.0 [...] mg/dL Encounters Code Encounter Date Provider Facility CPT-55761 Level 4 Est. Patient 08:43:11 CDT Pelon Quach MD [facility] CPT-78843 Level 4 Est. Patient 14:27:30 CDT Pelon Quach MD [facility] CPT-62633 Level 3 Est. Patient 10:32:17 CDT Jaycee Garcia [facility] CPT-67277 Level 3 Est. Patient 10:15:07 CDT Pelon Quach MD [facility] CPT-81282 Level 4 Est. Patient 09:30:54 CDT Pelon Quach MD [facility] CPT-25280 Level 4 Est. Patient 14:34:25 CDT Pelon Quach MD [facility] CPT-88299 Level 3 Est. Patient 11:51:35 TEACHER OF FAMILY AND CONSUMER SCIENCE Rick Henson DO [facility] CPT-56282 Level 3 Est. Patient 12:13:33 TEACHER OF FAMILY AND CONSUMER SCIENCE Erik Baptiste MD [facility] CPT-74028 Level 3 Est. Patient 09:40:44 TEACHER OF FAMILY AND CONSUMER SCIENCE Jaycee Garcia [facility] CPT-29977 Level 3 Est. Patient 09:36:32 TEACHER OF FAMILY AND CONSUMER SCIENCE Jaycee Garcia [facility] CPT-04543 Level 4 Est. Patient 16:57:02 TEACHER OF FAMILY AND CONSUMER SCIENCE Pelon Quach MD [facility]-77601 Level 4 Est. Patient 22:19:34 CDT Pelon Quach MD [facility]-52114 Level 3 Est. Patient 00:34:41 CDT Pelon Quach MD [facility]-22444 Level 4 Est. Patient 11:19:14 CDT Pelon Quach MD [facility]-27190 Level 4 Est. Patient 16:43:30 TEACHER OF FAMILY AND CONSUMER SCIENCE Pelon Quach MD [facility]-04427 Level 4 Est. Patient 12:42:18 CDT Pelon Quach MD [facility]-28879 Level 4 Est. Patient 11:52:20 CDT Pelon Quach MD [facility]-11014 Level 4 Est. Patient 13:59:46 CDT Pelon Quach MD [facility]-13555 Level 4 Est. Patient 15:10:48 CDT Pelon Quach MD [facility]-65112 Level 4 Est. Patient 17:13:06 CDT Pelon Quach MD [facility]-22307 Level 4 Est. Patient 18:47:47 CDT Pelon Quach MD [facility]-29010 Level 3 Est. Patient 21:01:27 CDT Pelon Quach MD [facility] CPT-78513 Level 3 Est. Patient 14:07:03 CDT Taty Alvarado MD PhD [facility]-63284 Level 3 New Patient 21:39:52 TEACHER OF FAMILY AND CONSUMER SCIENCE Pelon Quach MD [facility]-01575 Level 3 Est. Patient 14:28:44 CDT Glenn Thornton MD [facility]-07660 Level 3 Est. Patient 16:35:00 CDT Glenn Thornton MD [facility] [place] CPT-73399 Level 4 New Patient 17:06:27 CDT Glenn Thornton MD [facility] [place] Procedures Code Procedure Name Date Entry Date Standard Description CPT-G0438 Initial Annual Wellness Exam 09:30:54 CDT CPT-47630 Prevnar 13 Intramuscular Suspension 14:34:25 CDT 12/27 CPT-45741 Chest 2V Frontal and Lat - XRAY USE ONLY 11:56:13 TEACHER OF FAMILY AND CONSUMER SCIENCE CPT-13312 Cystoscopy 14:28:44 CDT CPT-83934 Bladder Scan 14:28:44 CDT CPT-67547 Indwelling Cath Change 17:06:27 CDT CPT-71833 Cystoscopy 17:06:27 CDT
--- OUTSIDE RECORDS SUMMARY | 2018-06-22 12:31 | XMS REPORT | Clinical Summary ---
Author Author Admin, ONESIMO Organization [facility] [employer] [place] Address Unknown Phone Unavailable Allergies, Adverse Reactions, [...] state URI - acute ICD-465.9 Inactive Erik Batpiste MD URI - acute ICD-465.9 Inactive Erik Baptiste MD Medication List Medication Instructions Start Date Stop Date Generic Name NDC Status Provider Patient Instruction BANOPHEN 25 MG ORAL TABS 1 po every 6 hours PRN allergic reaction DIPHENHYDRAMINE HCL 70778158072 Active NICOLETTE Hitchcock Active INVEGA 6 MG ORAL [id number] 1 po daily for Schizophrenia PALIPERIDONE 34108900201 No Longer Active Pelon Quach MD Active TYLENOL 8 HOUR 650 MG ORAL CR-TABS Take 1 tab po up to 3 times daily as needed ACETAMINOPHEN 29448458513 No Longer Active Pelon Quach MD Active IPRATROPIUM-ALBUTEROL 0.5-2.5 (3) MG/3ML INH SOLN 1 neb treatment QID for cough Dx: J06.9 IPRATROPIUM-ALBUTEROL 33070005601 No Longer Active Pelon Quach MD Active BACTRIM DS 800-160 MG TAB 1 tab by mouth twice daily TRIMETHOPRIM-SULFAMETHOXAZOLE 06410317535 No Longer Active Pelon Quach MD Active BACTROBAN 2 % OINTMENT Apply to affected area BID MUPIROCIN 04076802014 Active Jaycee Garcia APRN Active BACTRIM DS 800-160 MG TABS 1 twice a day SULFAMETHOXAZOLE-TRIMETHOPRIM 65874645945 No Longer Active Pelon Quach MD Active IPRATROPIUM-ALBUTEROL 0.5-2.5 (3) MG/3ML SOLN 1 neb treatment four times daily , for cough IPRATROPIUM-ALBUTEROL 40834457182 No Longer Active Jaycee Garcia APRN Active FUROSEMIDE 40 MG TABS Take one by mouth daily FUROSEMIDE 62135983459 No Longer Active Jaycee Garcia APRN Active LANTUS 100 UNIT/ML SC SOLN 20 SUBQ AT HS INSULIN GLARGINE 60738824144 Active Jaycee Garcia APRN Active LAMICTAL 25 MG ORAL TABS 2 tabs po BID for convulsions LAMOTRIGINE 47097795082 Active Jaycee Garcia APRN Active LASIX 20 MG TAB 1 tablet by mouth every morning for edema FUROSEMIDE 58626726052 Active Jaycee Garcia APRN Active BUSPIRONE HCL 10 MG TABS 1 tab by mouth BID BUSPIRONE HCL 67435637312 Active Jaycee Garcia RUG CLEANER HELPER Active NOVOLOG 100 UNIT/ML SC SOLN 10 UNITS BEFORE SUPPER INSULIN ASPART 50319172717 Active Jaycee Garcia APRN Active NOVOLOG 100 UNIT/ML SC SOLN 10 UNITS BID BEFORE BREAKFAST AND LUNCH INSULIN ASPART 26187367438 Active Jaycee Garcia APRN Active LAMICTAL 25 MG TABS 2 tabs by mouth twice a day LAMOTRIGINE 17242831616 Active Pelon Quach MD Active ADULT ASPIRIN EC LOW STRENGTH 81 MG TBEC Take one by mouth daily ASPIRIN 94586237107 No Longer Active Pelon Quach MD Active ASPIRIN 81 MG ORAL TABS 1 po qd ASPIRIN 25014817667 Active Pelon Quach MD Active ZOFRAN 4 MG TABS 1 po q6hr PRN Nausea ONDANSETRON HCL 48248784045 No Longer Active Pelon Quach MD Active TYLENOL 325 MG TAB 1-2 pills by mouth every 6 hours if needed for pain/fever ACETAMINOPHEN 27835138888 No Longer Active Pelon Quach MD Active INVEGA 6 MG ORAL [id number] 1 TAB ONCE DAILY PALIPERIDONE 52970250833 No Longer Active Carly Suggs Active TEGRETOL 200 MG TABS by mouth twice a day CARBAMAZEPINE 08381400788 Active Taty Alvarado MD PhD Active FLOMAX 0.4 MG CAPS 1 Daily TAMSULOSIN HCL 40318431662 Active Marianela Juarez Active DILANTIN 100 MG CAPS Take one by mouth daily PHENYTOIN SODIUM EXTENDED 30409008886 No Longer Active Marianela Juarez Active DEPAKOTE SPRINKLES 125 MG CPSP 4 capsules by mouth twice daily DIVALPROEX SODIUM 60863176762 No Longer Active Marianela Juarez Active LAMICTAL 200 MG ORAL TABS 1 BY MOUTH TWICE A DAY LAMOTRIGINE 10951764751 Active Marianela Juarez Active LAMICTAL 100 MG TABS by mouth twice a day LAMOTRIGINE 82605179010 No Longer Active Marianela Juarez Active LAMICTAL 150 MG TABS by mouth twice a day LAMOTRIGINE 04228293613 No Longer Active Marianela Juarez Active DILANTIN 100 MG CAPS Take three by mouth daily PHENYTOIN SODIUM EXTENDED 97589682953 No Longer Active Marianela Shankarronny Active SENOKOT 8.6 MG TABS take at bedtime SENNOSIDES 27561189246 Active Glenn Thornton MD Active LIPITOR 20 MG TABS take at bedtime ATORVASTATIN CALCIUM 46162631285 Active Glenn Thornton MD Active LISINOPRIL 2.5 MG TABS Take one by mouth daily LISINOPRIL 28837993413 Active Glenn Thornton MD Active TRENTAL 400 MG CR-TABS by mouth twice a day PENTOXIFYLLINE 74340603261 Active Glenn Thornton MD Active KLOR-CON 10 10 MEQ CR-TABS Take one by mouth daily POTASSIUM CHLORIDE 18965729867 Active Glenn Thornton MD Active DILANTIN 100 MG CAPS Take three by mouth daily DILANTIN 100 MG CAPS 295875 PHENYTOIN SODIUM EXTENDED Inactive LAMICTAL 150 MG TABS by mouth twice a day LAMICTAL 150 MG TABS 888668 LAMOTRIGINE Inactive LAMICTAL 100 MG TABS by mouth twice a day LAMICTAL 100 MG TABS 19831024 LAMOTRIGINE Inactive DEPAKOTE SPRINKLES 125 MG CPSP 4 capsules by mouth twice daily DEPAKOTE SPRINKLES 125 MG CPSP 6889908 DIVALPROEX SODIUM Inactive DILANTIN 100 MG CAPS Take one by mouth daily DILANTIN 100 MG CAPS 926174 PHENYTOIN SODIUM EXTENDED Inactive INVEGA 6 MG ORAL [id number] 1 TAB ONCE DAILY INVEGA 6 MG ORAL [id number] PALIPERIDONE Inactive TYLENOL 325 MG TAB 1-2 pills by mouth every 6 hours if needed for pain/fever TYLENOL 325 MG TAB 491793 ACETAMINOPHEN Inactive ZOFRAN 4 MG TABS 1 po q6hr PRN Nausea ZOFRAN 4 MG TABS 102189 ONDANSETRON HCL Inactive ADULT ASPIRIN EC LOW STRENGTH 81 MG TBEC Take one by mouth daily ADULT ASPIRIN EC LOW STRENGTH 81 MG TBEC 028133 ASPIRIN Inactive FUROSEMIDE 40 MG TABS Take one by mouth daily FUROSEMIDE 40 MG TABS 609776 FUROSEMIDE Inactive BACTRIM DS 800-160 MG TABS 1 twice a day BACTRIM DS 800-160 MG TABS 921465 SULFAMETHOXAZOLE-TRIMETHOPRIM Inactive IPRATROPIUM-ALBUTEROL 0.5-2.5 (3) MG/3ML INH SOLN 1 neb treatment QID for cough Dx: J06.9 IPRATROPIUM-ALBUTEROL 0.5-2.5 (3) MG/ 3ML INH SOLN 1009249 IPRATROPIUM-ALBUTEROL Inactive TYLENOL 8 HOUR 650 MG ORAL CR-TABS Take 1 tab po up to 3 times daily as needed TYLENOL 8 HOUR 650 MG ORAL CR-TABS ACETAMINOPHEN Inactive INVEGA 6 MG ORAL [id number] 1 po daily for Schizophrenia INVEGA 6 MG ORAL [id number] PALIPERIDONE Inactive IPRATROPIUM-ALBUTEROL 0.5-2.5 (3) MG/3ML SOLN 1 neb treatment four times daily , for cough IPRATROPIUM-ALBUTEROL 0.5-2.5 (3) MG/3ML SOLN 5925634 IPRATROPIUM-ALBUTEROL Inactive BACTRIM DS 800-160 MG TAB 1 tab by mouth twice daily BACTRIM DS 800-160 MG TAB [id number] TRIMETHOPRIM-SULFAMETHOXAZOLE Inactive Advance Directives Directive Description Start Date DURABLE POWER OF CHARGE MANAGER FOR HEALTHCARE PERMISSION TO SHARE ADVANCED [...] Panel - Chemistry sodium, serum 129 mmol/L 669-845 6361/07/12 carbon dioxide, venous blood 27.8 mmol/L 21.0-32.0 [...] mg/dL Encounters Code Encounter Date Provider Facility CPT-53929 Level 4 Est. Patient 14:27:30 CDT Pelon Quach MD [facility] CPT-60715 Level 3 Est. Patient 10:32:17 CDT Jaycee Garcia [facility] CPT-12978 Level 3 Est. Patient 10:15:07 CDT Pelon Quach MD [facility]-62384 Level 4 Est. Patient 09:30:54 CDT Pelon Quach MD [facility]-09765 Level 4 Est. Patient 14:34:25 CDT Pelon Quach MD [facility] CPT-54213 Level 3 Est. Patient 11:51:35 CATEGORY CONSULTANT Rick Henson DO [facility]-30657 Level 3 Est. Patient 12:13:33 CATEGORY CONSULTANT Erik Baptiste MD [facility] CPT-79135 Level 3 Est. Patient 09:40:44 CATEGORY CONSULTANT Jaycee Garcia [facility]-00248 Level 3 Est. Patient 09:36:32 CATEGORY CONSULTANT Jaycee Garcia [facility] CPT-13993 Level 4 Est. Patient 16:57:02 CATEGORY CONSULTANT Pelon Quach MD [facility]-40496 Level 4 Est. Patient 22:19:34 CDT Pelon Quach MD [facility] CPT-72285 Level 3 Est. Patient 00:34:41 CDT Pelon Quach MD [facility] CPT-48329 Level 4 Est. Patient 11:19:14 CDT Pelon Quach MD [facility] CPT-82080 Level 4 Est. Patient 16:43:30 CATEGORY CONSULTANT Pelon Quach MD [facility]-07671 Level 4 Est. Patient 12:42:18 CDT Pelon Quach MD [facility] CPT-84705 Level 4 Est. Patient 11:52:20 CDT Pelon Quach MD [facility] CPT-43113 Level 4 Est. Patient 13:59:46 CDT Pelon Quach MD [facility] CPT-60297 Level 4 Est. Patient 15:10:48 CDT Pelon Quach MD [facility] CPT-89711 Level 4 Est. Patient 17:13:06 CDT Pelon Quach MD [facility] CPT-77262 Level 4 Est. Patient 18:47:47 CDT Pelon Quach MD [facility] CPT-02029 Level 3 Est. Patient 21:01:27 CDT Pelon Quach MD [facility] CPT-18699 Level 3 Est. Patient 14:07:03 CDT Taty Alvarado MD PhD [facility] CPT-13236 Level 3 New Patient 21:39:52 CATEGORY CONSULTANT Pelon Quach MD [facility] CPT-96238 Level 3 Est. Patient 14:28:44 CDT Glenn Thornton MD [facility] CPT-36729 Level 3 Est. Patient 16:35:00 CDT Glenn Thornton MD [facility] CPT-92448 Level 4 New Patient 17:06:27 CDT [facility] Procedures Code Procedure Name Date Entry Date Standard Description CPT-G0438 Initial Annual Wellness Exam 09:30:54 CDT CPT-97446 Prevnar 13 Intramuscular Suspension 14:34:25 CDT 12/27 CPT-90533 Chest 2V Frontal and Lat - XRAY USE ONLY 11:56:13 CATEGORY CONSULTANT CPT-22774 Cystoscopy 14:28:44 CDT CPT-53852 Bladder Scan 14:28:44 CDT CPT-21169 Indwelling Cath Change 17:06:27 CDT CPT-24451 Cystoscopy 17:06:27 CDT
--- OUTSIDE RECORDS SUMMARY | 2018-06-22 12:32 | XMS REPORT | Clinical Summary ---
Author Author Admin, ONESIMO Organization [facility] [email or web address] [place] Address Unknown Phone Unavailable Allergies, Adverse Reactions, [...] MD Blister, foot/toe w/o infection ICD-917.2 Inactive Pelno Quach MD Diabetes mellitus, type II, on [...] 1 po q8hr PRN Congestion DIPHENHYDRAMINE HCL 29354593350 Active Pelon Quach MD Active ZOFRAN 4 MG ORAL TABLET 1 po q6hr PRN Nausea ONDANSETRON HCL 16745462211 Active Pelon Quach MD Active IMODIUM A-D 2 MG ORAL TABLET One QID prn diarrhea. No more than 4 tabs daily LOPERAMIDE HCL 82302700836 Active Pelon Quach MD Active TYLENOL 325 MG ORAL TABLET 2 tabs po prn for pain elevated temp ACETAMINOPHEN 75269131074 Active Pelon Quach MD Active MUCINEX D 60-600 MG ORAL TABLET EXTENDED RELEASE 12 HOUR 1 po BID PRN Congestion PSEUDOEPHEDRINE-GUAIFENESIN 22641749943 Active Pelon Quach MD Active IBUPROFEN 200 MG ORAL TABLET q 6hrs prn pain IBUPROFEN 29047824544 Active Pelon Quach MD Active LORATADINE 10 MG ORAL TABLET 1 tablet by mouth daily prn LORATADINE 69070383383 Active Pelon Quach MD Active BANOPHEN 25 MG ORAL TABLET 1 po every 6 hours PRN allergic reaction DIPHENHYDRAMINE HCL 41313727677 No Longer Active Pelon Quach MD Active EASY TOUCH ALCOHOL PREP MEDIUM 70 % PAD Use with each finger stick and insulin admin Dx: E11.9 ALCOHOL SWABS 24880849870 Active Jaycee Torrez APRN Active HUMALOG KWIKPEN 100 UNIT/ML SUBCUTANEOUS SOLUTION PEN-INJECTOR inject 10 units subcutaneously before meals also sliding scale INSULIN LISPRO 70131597859 Active Pelon Quach MD Active NOVOLOG 100 UNIT/ML SUBCUTANEOUS SOLUTION 10 UNITS BID BEFORE BREAKFAST AND LUNCH INSULIN ASPART 72620007728 No Longer Active NICOLETTE Hitchcock Active NOVOLOG 100 UNIT/ML SUBCUTANEOUS SOLUTION 10 UNITS BEFORE SUPPER INSULIN ASPART 42887558263 No Longer Active NICOLETTE Hitchcock Active INVEGA 6 MG ORAL TABLET EXTENDED RELEASE 24 HOUR 1 po daily for schizophrenia PALIPERIDONE 43911816620 Active Pelon Quach MD Active LAMICTAL 25 MG ORAL TABLET 2 tabs by mouth twice a day LAMOTRIGINE 79076525979 No Longer Active Pelon Quach MD Active BACTROBAN 2 % EXTERNAL OINTMENT Apply to affected area BID 06/28 MUPIROCIN 87496968692 No Longer Active Pelon Quach MD Active INVEGA 6 MG ORAL TABLET EXTENDED RELEASE 24 HOUR 1 po daily for Schizophrenia PALIPERIDONE 34199113706 No Longer Active Pelon Quach MD Active TYLENOL 8 HOUR 650 MG ORAL TABLET EXTENDED RELEASE Take 1 tab po up to 3 times daily as needed ACETAMINOPHEN 49740272585 No Longer Active Pelon Quach MD Active IPRATROPIUM-ALBUTEROL 0.5-2.5 (3) MG/3ML INHALATION SOLUTION 1 neb treatment QID for cough Dx: J06.9 IPRATROPIUM-ALBUTEROL 33382725299 No Longer Active Pelon Quach MD Active BACTRIM DS 800-160 MG ORAL TABLET 1 tab by mouth twice daily 2017 /06/10 TRIMETHOPRIM-SULFAMETHOXAZOLE 25508938552 No Longer Active Pelon Quach MD Active BACTRIM DS 800-160 MG ORAL TABLET 1 twice a day SULFAMETHOXAZOLE-TRIMETHOPRIM 04672006220 No Longer Active Pelon Quach MD Active IPRATROPIUM-ALBUTEROL 0.5-2.5 (3) MG/3ML INHALATION SOLUTION 1 neb treatment four times daily, for cough IPRATROPIUM-ALBUTEROL 15196354087 No Longer Active Jaycee Torrez APRN Active FUROSEMIDE 40 MG ORAL TABLET Take one by mouth daily FUROSEMIDE 30660537223 No Longer Active Jaycee Arenando MOJICAN Active LANTUS 100 UNIT/ML SUBCUTANEOUS SOLUTION 20 SUBQ AT HS INSULIN GLARGINE 52205293296 Active Pelon Quach MD Active LAMICTAL 25 MG ORAL TABLET 2 tabs po BID for convulsions LAMOTRIGINE 94339728164 Active Jaycee Arenando MOJICAN Active LASIX 20 MG ORAL TABLET 1 tablet by mouth every morning for edema FUROSEMIDE 20610954355 Active Jaycee Arenando MOJICAN Active BUSPIRONE HCL 10 MG ORAL TABLET 1 tab by mouth BID BUSPIRONE HCL 95138267552 Active Jaycee Arenando MOJICAN Active ADULT ASPIRIN EC LOW STRENGTH 81 MG ORAL TABLET DELAYED RELEASE Take one by mouth daily ASPIRIN 38862393610 No Longer Active Pelon Quach MD Active ASPIRIN 81 MG ORAL TABLET 1 po qd ASPIRIN 31564768782 Active Pelon Quach MD Active ZOFRAN 4 MG ORAL TABLET 1 po q6hr PRN Nausea ONDANSETRON HCL 20060340729 No Longer Active Pelon Quach MD Active TYLENOL 325 MG ORAL TABLET 1-2 pills by mouth every 6 hours if needed for pain /fever ACETAMINOPHEN 44582932408 No Longer Active Pelon Quach MD Active INVEGA 6 MG ORAL TABLET EXTENDED RELEASE 24 HOUR 1 TAB ONCE DAILY PALIPERIDONE 67112259479 No Longer Active Carly Suggs Active TEGRETOL 200 MG ORAL TABLET by mouth twice a day CARBAMAZEPINE 05025373044 Active Taty Alvarado MD PhD Active FLOMAX 0.4 MG ORAL CAPSULE 1 Daily TAMSULOSIN HCL 27778241178 Active Marianela Juarez Active DILANTIN 100 MG ORAL CAPSULE Take one by mouth daily PHENYTOIN SODIUM EXTENDED 38360166358 No Longer Active Marianela Juarez Active DEPAKOTE SPRINKLES 125 MG ORAL CAPSULE DELAYED RELEASE SPRINKLE 4 capsules by mouth twice daily DIVALPROEX SODIUM 06996904730 No Longer Active Marianela Juarez Active LAMICTAL 200 MG ORAL TABLET 1 BY MOUTH TWICE A DAY LAMOTRIGINE 86269767763 Active Marianela Juarez Active LAMICTAL 100 MG ORAL TABLET by mouth twice a day LAMOTRIGINE 41597910212 No Longer Active Marianelachandrika Juarez Active LAMICTAL 150 MG ORAL TABLET by mouth twice a day LAMOTRIGINE 04525271645 No Longer Active Marianela Juarez Active DILANTIN 100 MG ORAL CAPSULE Take three by mouth daily PHENYTOIN SODIUM EXTENDED 27388719395 No Longer Active Marianela Juarez Active SENOKOT 8.6 MG ORAL TABLET take at bedtime SENNOSIDES 90090843182 Active Pelon Quach MD Active LIPITOR 20 MG ORAL TABLET take at bedtime ATORVASTATIN CALCIUM 60729671844 Active Glenn Thornton MD Active LISINOPRIL 2.5 MG ORAL TABLET Take one by mouth daily LISINOPRIL 64020725450 Active Glenn Thornton MD Active TRENTAL 400 MG CR-TABS by mouth twice a day PENTOXIFYLLINE 87279174088 Active Glenn Thornton MD Active KLOR-CON 10 10 MEQ ORAL TABLET EXTENDED RELEASE Take one by mouth daily POTASSIUM CHLORIDE 77030911139 Active Glenn Thornton MD Active DILANTIN 100 MG ORAL CAPSULE Take three by mouth daily DILANTIN 100 MG ORAL CAPSULE 077265 PHENYTOIN SODIUM EXTENDED Inactive LAMICTAL 150 MG ORAL TABLET by mouth twice a day LAMICTAL 150 MG ORAL TABLET 702802 LAMOTRIGINE Inactive LAMICTAL 100 MG ORAL TABLET by mouth twice a day LAMICTAL 100 MG ORAL TABLET 722393 LAMOTRIGINE Inactive DEPAKOTE SPRINKLES 125 MG ORAL CAPSULE DELAYED RELEASE SPRINKLE 4 capsules by mouth twice daily DEPAKOTE SPRINKLES 125 MG ORAL CAPSULE DELAYED RELEASE SPRINKLE 2297108 DIVALPROEX SODIUM Inactive DILANTIN 100 MG ORAL CAPSULE Take one by mouth daily DILANTIN 100 MG ORAL CAPSULE 136961 PHENYTOIN SODIUM EXTENDED Inactive INVEGA 6 MG ORAL TABLET EXTENDED RELEASE 24 HOUR 1 TAB ONCE DAILY INVEGA 6 MG ORAL TABLET EXTENDED RELEASE 24 HOUR PALIPERIDONE Inactive TYLENOL 325 MG ORAL TABLET 1-2 pills by mouth every 6 hours if needed for pain /fever TYLENOL 325 MG ORAL TABLET 870225 ACETAMINOPHEN Inactive ZOFRAN 4 MG ORAL TABLET 1 po q6hr PRN Nausea ZOFRAN 4 MG ORAL TABLET 990571 ONDANSETRON HCL Inactive ADULT ASPIRIN EC LOW STRENGTH 81 MG ORAL TABLET DELAYED RELEASE Take one by mouth daily ADULT ASPIRIN EC LOW STRENGTH 81 MG ORAL TABLET DELAYED RELEASE 612298 ASPIRIN Inactive FUROSEMIDE 40 MG ORAL TABLET Take one by mouth daily FUROSEMIDE 40 MG ORAL TABLET 195631 FUROSEMIDE Inactive BACTRIM DS 800-160 MG ORAL TABLET 1 twice a day BACTRIM DS 800-160 MG ORAL TABLET 772816 SULFAMETHOXAZOLE-TRIMETHOPRIM Inactive IPRATROPIUM-ALBUTEROL 0.5-2.5 (3) MG/3ML INHALATION SOLUTION 1 neb treatment QID for cough Dx: J06.9 IPRATROPIUM-ALBUTEROL 0.5-2.5 ( 3) MG/3ML INHALATION SOLUTION 1909026 IPRATROPIUM-ALBUTEROL Inactive TYLENOL 8 HOUR 650 MG [...] BID 06/28 BACTROBAN 2 % EXTERNAL OINTMENT 467294 MUPIROCIN Inactive LAMICTAL 25 MG ORAL TABLET 2 tabs by mouth twice a day LAMICTAL 25 MG ORAL TABLET 395557 LAMOTRIGINE Inactive NOVOLOG 100 UNIT/ML SUBCUTANEOUS SOLUTION 10 UNITS BEFORE SUPPER NOVOLOG 100 UNIT/ML SUBCUTANEOUS SOLUTION INSULIN ASPART Inactive NOVOLOG 100 UNIT/ML SUBCUTANEOUS SOLUTION 10 UNITS BID BEFORE BREAKFAST AND LUNCH NOVOLOG 100 UNIT/ML SUBCUTANEOUS SOLUTION INSULIN ASPART Inactive BANOPHEN 25 MG ORAL TABLET 1 po every 6 hours PRN allergic reaction BANOPHEN 25 MG ORAL TABLET 8070475 DIPHENHYDRAMINE HCL Inactive IPRATROPIUM-ALBUTEROL 0.5-2.5 (3) MG/3ML INHALATION SOLUTION 1 neb treatment four times daily, for cough IPRATROPIUM-ALBUTEROL 0.5- 2.5 (3) MG/3ML INHALATION SOLUTION 1503154 IPRATROPIUM-ALBUTEROL Inactive BACTRIM DS 800-160 MG ORAL TABLET 1 tab by mouth twice daily 2016 BACTRIM DS 800-160 MG ORAL TABLET 576142 TRIMETHOPRIM- SULFAMETHOXAZOLE Inactive Advance Directives Directive Description Start Date DURABLE POWER OF TWO WAY RADIO TECHNICIAN FOR HEALTHCARE PERMISSION TO SHARE ADVANCED [...] Panel - Chemistry sodium, serum 127 mmol/L 218-080 0470/07/28 potassium, serum 5.3 mmol/L 3.5-5.2 chloride, serum 92 mmol/L 98-107 carbon dioxide, venous blood 32.4 mmol/L 21.0-32.0 blood glucose 182 mg/dL 65-110 calcium, serum 9.4 mg/dL 8.5-10.1 urea nitrogen, blood 14 mg/dL 7-18 creatinine, serum 0.94 mg/dL 0.60-1.30 Lab Report: CBC, Comp. Metabolic Panel - Chemistry sodium, serum 129 mmol/L 026-192 0464/07/12 carbon dioxide, venous blood 27.8 mmol/L 21.0-32.0 [...] HGBA1C - Chemistry sodium, serum 123 mmol/L 170-832 2592/04/25 carbon dioxide, venous blood 26.2 mmol/L 21.0-32.0 [...] mg/dL Encounters Code Encounter Date Provider Facility CPT-62918 Level 4 Est. Patient 18:11:18 CDT Pelon Quach MD [facility] CPT-57207 Level 4 Est. Patient 14:46:38 CDT Pelon Quach MD [facility] CPT-79865 Level 4 Est. Patient 08:43:11 CDT Pelon Quach MD [facility] CPT-50055 Level 4 Est. Patient 14:27:30 CDT Pelon Quach MD [facility]-59791 Level 3 Est. Patient 10:32:17 CDT Jaycee Torrez [facility] CPT-06492 Level 3 Est. Patient 10:15:07 CDT Pelon Quach MD [facility]-89103 Level 4 Est. Patient 09:30:54 CDT Pelon Quach MD [facility] CPT-28844 Level 4 Est. Patient 14:34:25 CDT Pelon Quach MD [facility]-43012 Level 3 Est. Patient 11:51:35 BIOINFORMATICS TECHNICIAN Rick Hensno DO [facility] CPT-81875 Level 3 Est. Patient 12:13:33 BIOINFORMATICS TECHNICIAN Erik Baptiste MD [facility]-47207 Level 3 Est. Patient 09:40:44 BIOINFORMATICS TECHNICIAN Jaycee Torrez [facility] CPT-01442 Level 3 Est. Patient 09:36:32 BIOINFORMATICS TECHNICIAN Jaycee Torrez [facility] CPT-97139 Level 4 Est. Patient 16:57:02 BIOINFORMATICS TECHNICIAN Pelon Quach MD [facility] CPT-01606 Level 4 Est. Patient 22:19:34 CDT Pelon Quach MD [facility] CPT-42993 Level 3 Est. Patient 00:34:41 CDT Pelon Quach MD [facility] CPT-23829 Level 4 Est. Patient 11:19:14 CDT Pelon Quach MD [facility] CPT-25139 Level 4 Est. Patient 16:43:30 BIOINFORMATICS TECHNICIAN Pelon Quach MD [facility] CPT-46555 Level 4 Est. Patient 12:42:18 CDT Pelon Quach MD [facility] CPT-66337 Level 4 Est. Patient 11:52:20 CDT Pelon Quach MD [facility] CPT-35364 Level 4 Est. Patient 13:59:46 CDT Pelon Quach MD [facility] CPT-32685 Level 4 Est. Patient 15:10:48 CDT Pelon Quach MD [facility] CPT-20259 Level 4 Est. Patient 17:13:06 CDT Pelon Quach MD [facility] CPT-06294 Level 4 Est. Patient 18:47:47 CDT Pelon Quach MD [facility] CPT-11526 Level 3 Est. Patient 21:01:27 CDT Pelon Quach MD [facility] CPT-34253 Level 3 Est. Patient 14:07:03 CDT Taty Alvarado MD PhD [facility] CPT-00291 Level 3 New Patient 21:39:52 BIOINFORMATICS TECHNICIAN Pelon Quach MD [facility] CPT-90103 Level 3 Est. Patient 14:28:44 CDT Glenn Thornton MD [facility] CPT-11626 Level 3 Est. Patient 16:35:00 CDT Glenn Thornton MD [facility] CPT-36059 Level 4 New Patient 17:06:27 CDT Glenn Thornton MD [facility] [place] Procedures Code Procedure Name Date Entry Date Standard Description CPT-G0439 Subsequent Annual Wellness Exam 18:11:17 CDT CPT-G0438 Initial Annual Wellness Exam 09:30:54 CDT CPT-46087 Prevnar 13 Intramuscular Suspension 14:34:25 CDT 12/27 CPT-32563 Chest 2V Frontal and Lat - XRAY USE ONLY 11:56:13 BIOINFORMATICS TECHNICIAN CPT-74051 Cystoscopy 14:28:44 CDT CPT-80818 Bladder Scan 14:28:44 CDT CPT-48625 Indwelling Cath Change 17:06:27 CDT CPT-94836 Cystoscopy 17:06:27 CDT
--- OUTSIDE RECORDS SUMMARY | 2018-06-22 12:33 | XMS REPORT | Clinical Summary ---
Author Author Admin, ONESIMO Organization [facility] [employer] [place] Address Unknown Phone Unavailable Allergies, Adverse Reactions, [...] TABS 1 twice a day SULFAMETHOXAZOLE- TRIMETHOPRIM 44044354298 Active Erik Baptiste MD Active IPRATROPIUM-ALBUTEROL 0.5-2.5 (3) MG/3ML INH SOLN 1 neb treatment QID for cough Dx: J06.9 IPRATROPIUM-ALBUTEROL 70511384560 Active Jaycee Garcia APRN Active IPRATROPIUM-ALBUTEROL 0.5-2.5 (3) MG/3ML SOLN 1 neb treatment four times daily , for cough IPRATROPIUM-ALBUTEROL 67017116251 No Longer Active Jaycee Garcia APRN Active TYLENOL 8 HOUR 650 MG ORAL CR-TABS Take 1 tab po up to 3 times daily as needed ACETAMINOPHEN 48047570886 Active Jaycee Jose HOME VISIT FIELD CARE MANAGER Active FUROSEMIDE 40 MG TABS Take one by mouth daily FUROSEMIDE 57063780904 No Longer Active Jaycee Garcia VICTORINO Active LANTUS 100 UNIT/ML SC SOLN 20 SUBQ AT HS INSULIN GLARGINE 54223917606 Active Jaycee Jose HOME VISIT FIELD CARE MANAGER Active LAMICTAL 25 MG ORAL TABS 2 tabs po BID for convulsions LAMOTRIGINE 77194697527 Active Jaycee Garcia VICTORINO Active INVEGA 6 MG ORAL [id number] 1 po daily for Schizophrenia PALIPERIDONE 02870657198 Active Jaycee Garcia VICTORINO Active LASIX 20 MG TAB 1 tablet by mouth every morning for edema FUROSEMIDE 31467563361 Active Jayceehugo Garcia APRN Active BUSPIRONE HCL 10 MG TABS 1 tab by mouth BID BUSPIRONE HCL 29653746991 Active Jaycee Garcia VICTORINO Active NOVOLOG 100 UNIT/ML SC SOLN 10 UNITS BEFORE SUPPER INSULIN ASPART 37162485770 Active Jaycee Garcia VICTORINO Active NOVOLOG 100 UNIT/ML SC SOLN 10 UNITS BID BEFORE BREAKFAST AND LUNCH INSULIN ASPART 55478697854 Active Jaycee Garcia VICTORINO Active LAMICTAL 25 MG TABS 2 tabs by mouth twice a day LAMOTRIGINE 90652558618 Active Pelon Quach MD Active ADULT ASPIRIN EC LOW STRENGTH 81 MG TBEC Take one by mouth daily ASPIRIN 88001038156 No Longer Active Pelon Quach MD Active ASPIRIN 81 MG ORAL TABS 1 po qd ASPIRIN 77365206116 Active Pelon Quach MD Active ZOFRAN 4 MG TABS 1 po q6hr PRN Nausea ONDANSETRON HCL 59739192482 No Longer Active Pelon Quach MD Active TYLENOL 325 MG TAB 1-2 pills by mouth every 6 hours if needed for pain/fever ACETAMINOPHEN 63033451842 No Longer Active Pelon Quach MD Active INVEGA 6 MG ORAL [id number] 1 TAB ONCE DAILY PALIPERIDONE 65398346900 No Longer Active Carly Suggs Active TEGRETOL 200 MG TABS by mouth twice a day CARBAMAZEPINE 13744798659 Active Taty Alvarado MD PhD Active FLOMAX 0.4 MG CAPS 1 Daily TAMSULOSIN HCL 62602453045 Active Marianelachandrika Juarez Active DILANTIN 100 MG CAPS Take one by mouth daily PHENYTOIN SODIUM EXTENDED 91719965792 No Longer Active Marianelachandrika Juarez Active DEPAKOTE SPRINKLES 125 MG CPSP 4 capsules by mouth twice daily DIVALPROEX SODIUM 37649924935 No Longer Active Marianelachandrika Juarez Active LAMICTAL 200 MG ORAL TABS 1 BY MOUTH TWICE A DAY LAMOTRIGINE 56959889080 Active Marianelachandrika Juarez Active LAMICTAL 100 MG TABS by mouth twice a day LAMOTRIGINE 50974016181 No Longer Active Marianelachandrika Juarez Active LAMICTAL 150 MG TABS by mouth twice a day LAMOTRIGINE 87523562568 No Longer Active Marianelachandrika Juarez Active DILANTIN 100 MG CAPS Take three by mouth daily PHENYTOIN SODIUM EXTENDED 60003033179 No Longer Active Marianela Juarez Active SENOKOT 8.6 MG TABS take at bedtime SENNOSIDES 67964218028 Active Glenn Thornton MD Active LIPITOR 20 MG TABS take at bedtime ATORVASTATIN CALCIUM 29727391965 Active Glenn Thornton MD Active LISINOPRIL 2.5 MG TABS Take one by mouth daily LISINOPRIL 21940899243 Active Glenn Thornton MD Active TRENTAL 400 MG CR-TABS by mouth twice a day PENTOXIFYLLINE 74315759014 Active Glenn Thornton MD Active KLOR-CON 10 10 MEQ CR-TABS Take one by mouth daily POTASSIUM CHLORIDE 86704695221 Active Glenn Thornton MD Active DILANTIN 100 MG CAPS Take three by mouth daily DILANTIN 100 MG CAPS 108479 PHENYTOIN SODIUM EXTENDED Inactive LAMICTAL 150 MG TABS by mouth twice a day LAMICTAL 150 MG TABS 19831025 LAMOTRIGINE Inactive LAMICTAL 100 MG TABS by mouth twice a day LAMICTAL 100 MG TABS 19831024 LAMOTRIGINE Inactive DEPAKOTE SPRINKLES 125 MG CPSP 4 capsules by mouth twice daily DEPAKOTE SPRINKLES 125 MG CPSP 4273565 DIVALPROEX SODIUM Inactive DILANTIN 100 MG CAPS Take one by mouth daily DILANTIN 100 MG CAPS 703773 PHENYTOIN SODIUM EXTENDED Inactive INVEGA 6 MG ORAL [id number] 1 TAB ONCE DAILY INVEGA 6 MG ORAL [id number] PALIPERIDONE Inactive TYLENOL 325 MG TAB 1-2 pills by mouth every 6 hours if needed for pain/fever TYLENOL 325 MG TAB 459028 ACETAMINOPHEN Inactive ZOFRAN 4 MG TABS 1 po q6hr PRN Nausea ZOFRAN 4 MG TABS 899722 ONDANSETRON HCL Inactive ADULT ASPIRIN EC LOW STRENGTH 81 MG TBEC Take one by mouth daily ADULT ASPIRIN EC LOW STRENGTH 81 MG TBEC 523207 ASPIRIN Inactive FUROSEMIDE 40 MG TABS Take one by mouth daily FUROSEMIDE 40 MG TABS 819996 FUROSEMIDE Inactive IPRATROPIUM-ALBUTEROL 0.5-2.5 (3) MG/3ML SOLN 1 neb treatment four times daily , for cough IPRATROPIUM-ALBUTEROL 0.5-2.5 (3) MG/3ML SOLN 2562185 IPRATROPIUM-ALBUTEROL Inactive Advance Directives Directive Description Start Date DURABLE POWER OF AIR POLLUTION COMPLIANCE INSPECTOR FOR HEALTHCARE PERMISSION TO SHARE ADVANCED DIRECTIVE [...] mg/dL Encounters Code Encounter Date Provider Facility CPT-80822 Level 3 Est. Patient 11:51:35 NUT SORTER Rick Henson DO [facility] CPT-46616 Level 3 Est. Patient 12:13:33 NUT SORTER Erik Baptiste MD [facility] CPT-43530 Level 3 Est. Patient 09:40:44 NUT SORTER Jaycee Garcia [facility] CPT-51376 Level 3 Est. Patient 09:36:32 NUT SORTER Jaycee Garcia [facility] CPT-02682 Level 4 Est. Patient 16:57:02 NUT SORTER Pelon Quach MD [facility] CPT-60548 Level 4 Est. Patient 22:19:34 CDT Pelon Quach MD [facility] CPT-52835 Level 3 Est. Patient 00:34:41 CDT Pelon Quach MD [facility] CPT-92344 Level 4 Est. Patient 11:19:14 CDT Pelon Quach MD [facility] CPT-10144 Level 4 Est. Patient 16:43:30 NUT SORTER Pelon Quach MD [facility] CPT-09619 Level 4 Est. Patient 12:42:18 CDT Pelon Quach MD [facility] CPT-42071 Level 4 Est. Patient 11:52:20 CDT Pelon Quach MD [facility] CPT-23548 Level 4 Est. Patient 13:59:46 CDT Pelon Quach MD [facility] CPT-55996 Level 4 Est. Patient 15:10:48 CDT Pelon Quach MD [facility] CPT-38150 Level 4 Est. Patient 17:13:06 CDT Pelon Quach MD [facility] CPT-33353 Level 4 Est. Patient 18:47:47 CDT Pelon Quach MD [facility] CPT-24505 Level 3 Est. Patient 21:01:27 CDT Pelon Quach MD [facility] CPT-30856 Level 3 Est. Patient 14:07:03 CDT Taty Alvarado MD PhD [facility] CPT-92003 Level 3 New Patient 21:39:52 NUT SORTER Pelon Quach MD [facility] CPT-76128 Level 3 Est. Patient 14:28:44 CDT Glenn Thornton MD [facility] CPT-41666 Level 3 Est. Patient 16:35:00 CDT Glenn Thornton MD [facility] CPT-17857 Level 4 New Patient 17:06:27 CDT Glenn Thornton MD [facility] [place] Procedures Code Procedure Name Date Entry Date Standard Description CPT-82072 Chest 2V Frontal and Lat - XRAY USE ONLY 11:56:13 NUT SORTER CPT-51359 Cystoscopy 14:28:44 CDT CPT-79081 Bladder Scan 14:28:44 CDT CPT-79953 Indwelling Cath Change 17:06:27 CDT CPT-29366 Cystoscopy 17:06:27 CDT
--- OUTSIDE RECORDS SUMMARY | 2018-06-22 12:34 | XMS REPORT | Clinical Summary ---
Author Author Admin, ONESIMO Organization [facility] [place] Address Unknown Phone Unavailable Allergies, Adverse Reactions, [...] 1 tab by mouth twice daily TRIMETHOPRIM-SULFAMETHOXAZOLE 63984044851 Active Pelon Quach MD Active BACTROBAN 2 % OINTMENT Apply to affected area BID MUPIROCIN 20148503965 Active Jaycee Garcia APRN Active BACTRIM DS 800-160 MG TABS 1 twice a day SULFAMETHOXAZOLE-TRIMETHOPRIM 32121180617 No Longer Active Pelon Quach MD Active IPRATROPIUM-ALBUTEROL 0.5-2.5 (3) MG/3ML INH SOLN 1 neb treatment QID for cough Dx: J06.9 IPRATROPIUM-ALBUTEROL 42664660115 Active Jaycee Garcia APRN Active IPRATROPIUM-ALBUTEROL 0.5-2.5 (3) MG/3ML SOLN 1 neb treatment four times daily , for cough IPRATROPIUM-ALBUTEROL 68159851719 No Longer Active Jaycee Garcia APRN Active TYLENOL 8 HOUR 650 MG ORAL CR-TABS Take 1 tab po up to 3 times daily as needed ACETAMINOPHEN 81322235403 Active Jaycee Garcia APRN Active FUROSEMIDE 40 MG TABS Take one by mouth daily FUROSEMIDE 75845816206 No Longer Active Jaycee Garcia APRN Active LANTUS 100 UNIT/ML SC SOLN 20 SUBQ AT HS INSULIN GLARGINE 48912832727 Active Jaycee Garcia APRN Active LAMICTAL 25 MG ORAL TABS 2 tabs po BID for convulsions LAMOTRIGINE 77596603900 Active Jaycee Garcia APRN Active INVEGA 6 MG ORAL AD23Z-CBC 1 po daily for Schizophrenia PALIPERIDONE 15495935440 Active Jaycee Garcia APRN Active LASIX 20 MG TAB 1 tablet by mouth every morning for edema FUROSEMIDE 42496137485 Active Jaycee Garcia APRN Active BUSPIRONE HCL 10 MG TABS 1 tab by mouth BID BUSPIRONE HCL 42285607204 Active Jaycee Garcia APRN Active NOVOLOG 100 UNIT/ML SC SOLN 10 UNITS BEFORE SUPPER INSULIN ASPART 21869482550 Active Jaycee Garcia APRN Active NOVOLOG 100 UNIT/ML SC SOLN 10 UNITS BID BEFORE BREAKFAST AND LUNCH INSULIN ASPART 04184787891 Active Jaycee Garcia APRN Active LAMICTAL 25 MG TABS 2 tabs by mouth twice a day LAMOTRIGINE 76594945549 Active Pelon Quach MD Active ADULT ASPIRIN EC LOW STRENGTH 81 MG TBEC Take one by mouth daily ASPIRIN 44067527933 No Longer Active Pelon Quach MD Active ASPIRIN 81 MG ORAL TABS 1 po qd ASPIRIN 03974515622 Active Pelon Quach MD Active ZOFRAN 4 MG TABS 1 po q6hr PRN Nausea ONDANSETRON HCL 90465298189 No Longer Active Pelon Quach MD Active TYLENOL 325 MG TAB 1-2 pills by mouth every 6 hours if needed for pain/fever ACETAMINOPHEN 83433253108 No Longer Active Pelon Quach MD Active INVEGA 6 MG ORAL [id number] 1 TAB ONCE DAILY PALIPERIDONE 26095861580 No Longer Active Carly Suggs Active TEGRETOL 200 MG TABS by mouth twice a day CARBAMAZEPINE 71818960654 Active Taty Alvarado MD PhD Active FLOMAX 0.4 MG CAPS 1 Daily TAMSULOSIN HCL 38615160977 Active Marianela Larry Active DILANTIN 100 MG CAPS Take one by mouth daily PHENYTOIN SODIUM EXTENDED 46340751634 No Longer Active Marianela Larry Active DEPAKOTE SPRINKLES 125 MG CPSP 4 capsules by mouth twice daily DIVALPROEX SODIUM 51625811450 No Longer Active Marianela Raida Active LAMICTAL 200 MG ORAL TABS 1 BY MOUTH TWICE A DAY LAMOTRIGINE 92444251423 Active Marianela Raida Active LAMICTAL 100 MG TABS by mouth twice a day LAMOTRIGINE 75859459040 No Longer Active Marianela Raida Active LAMICTAL 150 MG TABS by mouth twice a day LAMOTRIGINE 92734214429 No Longer Active Marianela Raida Active DILANTIN 100 MG CAPS Take three by mouth daily PHENYTOIN SODIUM EXTENDED 18954477581 No Longer Active Marianela Raida Active SENOKOT 8.6 MG TABS take at bedtime SENNOSIDES 57098856702 Active J Ian Thornton MD Active LIPITOR 20 MG TABS take at bedtime ATORVASTATIN CALCIUM 33540176459 Active Glenn Thornton MD Active LISINOPRIL 2.5 MG TABS Take one by mouth daily LISINOPRIL 90539172889 Active Glenn Thornton MD Active TRENTAL 400 MG CR-TABS by mouth twice a day PENTOXIFYLLINE 30124381826 Active Glenn Thornton MD Active KLOR-CON 10 10 MEQ CR-TABS Take one by mouth daily POTASSIUM CHLORIDE 37126235206 Active Glenn Thornton MD Active DILANTIN 100 MG CAPS Take three by mouth daily DILANTIN 100 MG CAPS 220919 PHENYTOIN SODIUM EXTENDED Inactive LAMICTAL 150 MG TABS by mouth twice a day LAMICTAL 150 MG TABS 19831025 LAMOTRIGINE Inactive LAMICTAL 100 MG TABS by mouth twice a day LAMICTAL 100 MG TABS 19831024 LAMOTRIGINE Inactive DEPAKOTE SPRINKLES 125 MG CPSP 4 capsules by mouth twice daily DEPAKOTE SPRINKLES 125 MG CPSP 0499185 DIVALPROEX SODIUM Inactive DILANTIN 100 MG CAPS Take one by mouth daily DILANTIN 100 MG CAPS 586320 PHENYTOIN SODIUM EXTENDED Inactive INVEGA 6 MG ORAL [id number] 1 TAB ONCE DAILY INVEGA 6 MG ORAL [id number] PALIPERIDONE Inactive TYLENOL 325 MG TAB 1-2 pills by mouth every 6 hours if needed for pain/fever TYLENOL 325 MG TAB 163914 ACETAMINOPHEN Inactive ZOFRAN 4 MG TABS 1 po q6hr PRN Nausea ZOFRAN 4 MG TABS 064765 ONDANSETRON HCL Inactive ADULT ASPIRIN EC LOW STRENGTH 81 MG TBEC Take one by mouth daily ADULT ASPIRIN EC LOW STRENGTH 81 MG TBEC 452955 ASPIRIN Inactive FUROSEMIDE 40 MG TABS Take one by mouth daily FUROSEMIDE 40 MG TABS 003852 FUROSEMIDE Inactive BACTRIM DS 800-160 MG TABS 1 twice a day BACTRIM DS 800-160 MG TABS 383801 SULFAMETHOXAZOLE-TRIMETHOPRIM Inactive IPRATROPIUM-ALBUTEROL 0.5-2.5 (3) MG/3ML SOLN 1 neb treatment four times daily , for cough IPRATROPIUM-ALBUTEROL 0.5-2.5 (3) MG/3ML SOLN 5546093 IPRATROPIUM-ALBUTEROL Inactive Advance Directives Directive Description Start Date DURABLE POWER OF PROFESSOR OF MANAGEMENT FOR HEALTHCARE PERMISSION TO SHARE ADVANCED DIRECTIVE [...] mg/dL Encounters Code Encounter Date Provider Facility CPT-96696 Level 3 Est. Patient 10:32:17 CDT Jaycee Garcia APRN [facility] CPT-53554 Level 3 Est. Patient 10:15:07 CDT Pelon Quach MD [facility]-40159 Level 4 Est. Patient 09:30:54 CDT Pelon Quach MD [facility] CPT-19850 Level 4 Est. Patient 14:34:25 CDT Pelon Quach MD [facility]-74620 Level 3 Est. Patient 11:51:35 SENIOR QUALITY MANAGER Rick Henson DO [facility] CPT-06692 Level 3 Est. Patient 12:13:33 SENIOR QUALITY MANAGER Erik Baptiste MD [facility]-97104 Level 3 Est. Patient 09:40:44 SENIOR QUALITY MANAGER Jaycee Garcia [facility]-21000 Level 3 Est. Patient 09:36:32 SENIOR QUALITY MANAGER Jaycee Garcia [facility]-47299 Level 4 Est. Patient 16:57:02 SENIOR QUALITY MANAGER Pelon Quach MD [facility] CPT-31836 Level 4 Est. Patient 22:19:34 CDT Pelon Quach MD [facility]-87653 Level 3 Est. Patient 00:34:41 CDT Pelon Quach MD [facility]-99430 Level 4 Est. Patient 11:19:14 CDT Pelon Quach MD [facility]-16916 Level 4 Est. Patient 16:43:30 SENIOR QUALITY MANAGER Pelon Quach MD [facility]-95129 Level 4 Est. Patient 12:42:18 CDT Pelon Quach MD [facility] CPT-41194 Level 4 Est. Patient 11:52:20 CDT Pelon Quach MD [facility] CPT-10664 Level 4 Est. Patient 13:59:46 CDT Pelon Quach MD [facility] CPT-21934 Level 4 Est. Patient 15:10:48 CDT Pelon Quach MD [facility] CPT-88729 Level 4 Est. Patient 17:13:06 CDT Pelon Quach MD [facility] CPT-99381 Level 4 Est. Patient 18:47:47 CDT Pelon Quach MD [facility] CPT-45384 Level 3 Est. Patient 21:01:27 CDT Pelon Quach MD [facility] CPT-18402 Level 3 Est. Patient 14:07:03 CDT Taty Alvarado MD PhD [facility] CPT-46845 Level 3 New Patient 21:39:52 SENIOR QUALITY MANAGER Pelon Quach MD [facility] CPT-67652 Level 3 Est. Patient 14:28:44 CDT Glenn [facility] CPT-15671 Level 3 Est. Patient 16:35:00 CDT Glenn Thornton MD [facility] CPT-68028 Level 4 New Patient 17:06:27 CDT Glenn Thornton MD [facility] [place] Procedures Code Procedure Name Date Entry Date Standard Description CPT-G0438 Initial Annual Wellness Exam 09:30:54 CDT CPT-03421 Prevnar 13 Intramuscular Suspension 14:34:25 CDT 12/27 CPT-49179 Chest 2V Frontal and Lat - XRAY USE ONLY 11:56:13 SENIOR QUALITY MANAGER CPT-97251 Cystoscopy 14:28:44 CDT CPT-03832 Bladder Scan 14:28:44 CDT CPT-20771 Ind[address] Cath Change 17:06:27 CDT CPT-98961 Cystoscopy 17:06:27 CDT
--- OUTSIDE RECORDS SUMMARY | 2018-06-22 12:35 | XMS REPORT | Clinical Summary ---
Author Author Admin, ONESIMO Organization [facility] [place] Address Unknown Phone Unavailable Allergies, Adverse Reactions, [...] care facility Atrial fibrillation 427.31 Active Pelon Qauch MD Atrial fibrillation Diabetes mellitus, type II, [...] 1 po q8hr PRN Congestion DIPHENHYDRAMINE HCL 20679577275 Active Pelon Quach MD Active ZOFRAN 4 MG ORAL TABLET 1 po q6hr PRN Nausea ONDANSETRON HCL 19182715495 Active Pelon Quach MD Active IMODIUM A-D 2 MG ORAL TABLET One QID prn diarrhea. No more than 4 tabs daily LOPERAMIDE HCL 70895491327 Active Pelon Quach MD Active TYLENOL 325 MG ORAL TABLET 2 tabs po prn for pain elevated temp ACETAMINOPHEN 97285772237 Active Pelon Quach MD Active MUCINEX D 60-600 MG ORAL TABLET EXTENDED RELEASE 12 HOUR 1 po BID PRN Congestion PSEUDOEPHEDRINE-GUAIFENESIN 73328206341 Active Pelon Quach MD Active IBUPROFEN 200 MG ORAL TABLET q 6hrs prn pain IBUPROFEN 69972745457 Active Pelon Quach MD Active LORATADINE 10 MG ORAL TABLET 1 tablet by mouth daily prn LORATADINE 84398249527 Active Pelon Quach MD Active BANOPHEN 25 MG ORAL TABLET 1 po every 6 hours PRN allergic reaction DIPHENHYDRAMINE HCL 83454165074 No Longer Active Pelon Quach MD Active EASY TOUCH ALCOHOL PREP MEDIUM 70 % PAD Use with each finger stick and insulin admin Dx: E11.9 ALCOHOL SWABS 80814064473 Active Jaycee Arell PICKER TENDER Active HUMALOG KWIKPEN 100 UNIT/ML SUBCUTANEOUS SOLUTION PEN-INJECTOR inject 10 units subcutaneously before meals also sliding scale INSULIN LISPRO 80676029813 Active Jaycee Shan VICTORINO Active NOVOLOG 100 UNIT/ML SUBCUTANEOUS SOLUTION 10 UNITS BID BEFORE BREAKFAST AND LUNCH INSULIN ASPART 16584849629 No Longer Active NICOLETTE Hitchcock Active NOVOLOG 100 UNIT/ML SUBCUTANEOUS SOLUTION 10 UNITS BEFORE SUPPER INSULIN ASPART 19671379806 No Longer Active NICOLETTE Hitchcock Active INVEGA 6 MG ORAL TABLET EXTENDED RELEASE 24 HOUR 1 po daily for schizophrenia PALIPERIDONE 70738132085 Active Pelon Quach MD Active LAMICTAL 25 MG ORAL TABLET 2 tabs by mouth twice a day LAMOTRIGINE 98268667793 No Longer Active Pelon Quach MD Active BACTROBAN 2 % EXTERNAL OINTMENT Apply to affected area BID 06/28 MUPIROCIN 36715899999 No Longer Active Pelon Quach MD Active INVEGA 6 MG ORAL TABLET EXTENDED RELEASE 24 HOUR 1 po daily for Schizophrenia PALIPERIDONE 79200651722 No Longer Active Pelon Quach MD Active TYLENOL 8 HOUR 650 MG ORAL TABLET EXTENDED RELEASE Take 1 tab po up to 3 times daily as needed ACETAMINOPHEN 68764116398 No Longer Active Pelon Quach MD Active IPRATROPIUM-ALBUTEROL 0.5-2.5 (3) MG/3ML INHALATION SOLUTION 1 neb treatment QID for cough Dx: J06.9 IPRATROPIUM-ALBUTEROL 47880517077 No Longer Active Pelon Quach MD Active BACTRIM DS 800-160 MG ORAL TABLET 1 tab by mouth twice daily 2016 TRIMETHOPRIM-SULFAMETHOXAZOLE 59353752018 No Longer Active Pelon Quach MD Active BACTRIM DS 800-160 MG ORAL TABLET 1 twice a day SULFAMETHOXAZOLE-TRIMETHOPRIM 36947241190 No Longer Active Pelon Quach MD Active IPRATROPIUM-ALBUTEROL 0.5-2.5 (3) MG/3ML INHALATION SOLUTION 1 neb treatment four times daily, for cough IPRATROPIUM-ALBUTEROL 39482445586 No Longer Active Jaycee Arell PICKER TENDER Active FUROSEMIDE 40 MG ORAL TABLET Take one by mouth daily FUROSEMIDE 67705989853 No Longer Active Jaycee Arell PICKER TENDER Active LANTUS 100 UNIT/ML SUBCUTANEOUS SOLUTION 20 SUBQ AT HS INSULIN GLARGINE 02413449177 Active Jaycee Arell PICKER TENDER Active LAMICTAL 25 MG ORAL TABLET 2 tabs po BID for convulsions LAMOTRIGINE 11189177316 Active Jaycee Arell PICKER TENDER Active LASIX 20 MG ORAL TABLET 1 tablet by mouth every morning for edema FUROSEMIDE 38560005520 Active Jaycee Arell PICKER TENDER Active BUSPIRONE HCL 10 MG ORAL TABLET 1 tab by mouth BID BUSPIRONE HCL 98402653075 Active Jaycee Juan Davidll PICKER TENDER Active ADULT ASPIRIN EC LOW STRENGTH 81 MG ORAL TABLET DELAYED RELEASE Take one by mouth daily ASPIRIN 57523891846 No Longer Active Pelon Quach MD Active ASPIRIN 81 MG ORAL TABLET 1 po qd ASPIRIN 63696091439 Active Pelon Quach MD Active ZOFRAN 4 MG ORAL TABLET 1 po q6hr PRN Nausea ONDANSETRON HCL 72246920836 No Longer Active Pelon Quach MD Active TYLENOL 325 MG ORAL TABLET 1-2 pills by mouth every 6 hours if needed for pain /fever ACETAMINOPHEN 83276110374 No Longer Active Pelon Quach MD Active INVEGA 6 MG ORAL TABLET EXTENDED RELEASE 24 HOUR 1 TAB ONCE DAILY PALIPERIDONE 32688343957 No Longer Active Carly Suggs Active TEGRETOL 200 MG ORAL TABLET by mouth twice a day CARBAMAZEPINE 98720382000 Active Taty Alvarado MD PhD Active FLOMAX 0.4 MG ORAL CAPSULE 1 Daily TAMSULOSIN HCL 58714032490 Active Marianela Juarez Active DILANTIN 100 MG ORAL CAPSULE Take one by mouth daily PHENYTOIN SODIUM EXTENDED 66700867810 No Longer Active Marianela Juarez Active DEPAKOTE SPRINKLES 125 MG ORAL CAPSULE DELAYED RELEASE SPRINKLE 4 capsules by mouth twice daily DIVALPROEX SODIUM 39081552974 No Longer Active Marianela Juarez Active LAMICTAL 200 MG ORAL TABLET 1 BY MOUTH TWICE A DAY LAMOTRIGINE 74183048579 Active Marianela Juarez Active LAMICTAL 100 MG ORAL TABLET by mouth twice a day LAMOTRIGINE 54831239636 No Longer Active Marianelachandrika Juarez Active LAMICTAL 150 MG ORAL TABLET by mouth twice a day LAMOTRIGINE 32351824226 No Longer Active Marianela Juarez Active DILANTIN 100 MG ORAL CAPSULE Take three by mouth daily PHENYTOIN SODIUM EXTENDED 35689194420 No Longer Active Marianela Juarez Active SENOKOT 8.6 MG ORAL TABLET take at bedtime SENNOSIDES 68754711421 Active Pelon Quach MD Active LIPITOR 20 MG ORAL TABLET take at bedtime ATORVASTATIN CALCIUM 45207463219 Active Glenn Thornton MD Active LISINOPRIL 2.5 MG ORAL TABLET Take one by mouth daily LISINOPRIL 28009210441 Active Glenn Thornton MD Active TRENTAL 400 MG CR-TABS by mouth twice a day PENTOXIFYLLINE 19758861996 Active Glenn Thornton MD Active KLOR-CON 10 10 MEQ ORAL TABLET EXTENDED RELEASE Take one by mouth daily POTASSIUM CHLORIDE 39690472181 Active Glenn Thornton MD Active BACTRIM DS 800-160 MG ORAL TABLET 1 twice a day BACTRIM DS 800-160 MG ORAL TABLET 998896 SULFAMETHOXAZOLE-TRIMETHOPRIM Inactive BACTRIM DS 800-160 MG ORAL TABLET 1 tab by mouth twice daily 2016 BACTRIM DS 800-160 MG ORAL TABLET 233070 TRIMETHOPRIM- SULFAMETHOXAZOLE Inactive BACTROBAN 2 % EXTERNAL OINTMENT Apply to affected area BID 06/28 BACTROBAN 2 % EXTERNAL OINTMENT 698175 MUPIROCIN Inactive DILANTIN 100 MG ORAL CAPSULE Take three by mouth daily DILANTIN 100 MG ORAL CAPSULE 913037 PHENYTOIN SODIUM EXTENDED Inactive DILANTIN 100 MG ORAL CAPSULE Take one by mouth daily DILANTIN 100 MG ORAL CAPSULE 259026 PHENYTOIN SODIUM EXTENDED Inactive FUROSEMIDE 40 MG ORAL TABLET Take one by mouth daily FUROSEMIDE 40 MG ORAL TABLET 943789 FUROSEMIDE Inactive TYLENOL 325 MG ORAL TABLET 1-2 pills by mouth every 6 hours if needed for pain /fever TYLENOL 325 MG ORAL TABLET 045300 ACETAMINOPHEN Inactive ZOFRAN 4 MG ORAL TABLET 1 po q6hr PRN Nausea ZOFRAN 4 MG ORAL TABLET 359504 ONDANSETRON HCL Inactive LAMICTAL 100 MG ORAL TABLET by mouth twice a day LAMICTAL 100 MG ORAL TABLET 557000 LAMOTRIGINE Inactive LAMICTAL 150 MG ORAL TABLET by mouth twice a day LAMICTAL 150 MG ORAL TABLET 245548 LAMOTRIGINE Inactive LAMICTAL 25 MG ORAL TABLET 2 tabs by mouth twice a day LAMICTAL 25 MG ORAL TABLET 602755 LAMOTRIGINE Inactive BANOPHEN 25 MG ORAL TABLET 1 po every 6 hours PRN allergic reaction BANOPHEN 25 MG ORAL TABLET 2567428 DIPHENHYDRAMINE HCL Inactive ADULT ASPIRIN EC LOW STRENGTH 81 MG ORAL TABLET DELAYED RELEASE Take one by mouth daily ADULT ASPIRIN EC LOW STRENGTH 81 MG ORAL TABLET DELAYED RELEASE 735021 ASPIRIN Inactive NOVOLOG 100 UNIT/ML SUBCUTANEOUS SOLUTION [...] IPRATROPIUM-ALBUTEROL 0.5-2.5 ( 3) MG/3ML INHALATION SOLUTION 0340592 IPRATROPIUM-ALBUTEROL Inactive IPRATROPIUM-ALBUTEROL 0.5-2.5 (3) MG/3ML INHALATION SOLUTION 1 neb treatment four times daily, for cough IPRATROPIUM-ALBUTEROL 0.5- 2.5 (3) MG/3ML INHALATION SOLUTION 8315809 IPRATROPIUM-ALBUTEROL Inactive DEPAKOTE SPRINKLES 125 MG ORAL CAPSULE DELAYED RELEASE SPRINKLE 4 capsules by mouth twice daily DEPAKOTE SPRINKLES 125 MG ORAL CAPSULE DELAYED RELEASE SPRINKLE 9072011 DIVALPROEX SODIUM Inactive Advance Directives Directive Description Start Date 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 Metabolic Panel - Chemistry sodium, serum 129 mmol/L 431-593 0342/07/12 carbon dioxide, venous blood 27.8 mmol/L 21.0-32.0 [...] Report: CBC, Comp. Metabolic Panel - Hematology hematocrit, blood 38.9 % 40.0-54.0 mean corpuscular volume, RBC 93 fL 80-97 mean corpuscular hemoglobin, RBC 31.9 pg 27.0-31.2 mean corpuscular hemoglobin concentration, RBC 34.4 G/DL % 31.8- 35.4 red blood cell distribution width 15.0 % 11.6-14.8 platelet count 270 10^3/MM^3 10*3/mm3 119-300 8015/07/12 erythrocyte (RBC) count 4.19 10^6/MM^3 10*6/mm3 4.50-6.50 leukocyte count, blood 5.3 10^3/MM^3 10*3/mm3 4.6-10.2 hemoglobin, blood 13.4 g/dL 14.0-18.0 Lab Report: Comp. Metabolic Panel, CBC, HGBA1C - Chemistry hemoglobin A1C, blood, as % of total hemoglobin 6.9 % 4.3-6.0 sodium, serum 123 mmol/L 596-298 3457/04/25 carbon dioxide, venous blood 26.2 mmol/L 21.0-32.0 potassium, serum 4.5 mmol/L 3.5-5.2 chloride, serum 88 mmol/L 98-107 blood glucose 187 mg/dL 65-95 urea nitrogen, blood 10 mg/dL 7-18 creatinine, serum 0.67 mg/dL 0.60-1.30 alanine aminotransferase (SGPT), serum 19 U/L 12-78 aspartate aminotransferase (SGOT), serum 25 U/L 15-37 calcium, serum 8.8 mg/dL 8.5-10.1 bilirubin, serum, total 1.00 mg/dL 0.00-1.00 Lab Report: Comp. Metabolic Panel, CBC, HGBA1C [...] % of total hemoglobin 7.0 % 4.3-6.0 Lab Report: UADIP W/MICRO, AUTO [...] Office Visit: 3 MO F/U - Chemistry HDL cholesterol, serum, target level 40 mg/dL triglyceride, target level 150 mg/dL cholesterol, target level 200 mg/dL Office Visit: 3 MO F/U-RD,RMA - Basic LDL target level 100 mg/dL Office Visit: 3 MO F/U-RD,RMA - Chemistry HDL cholesterol, serum, target level 40 mg/dL triglyceride, target level 150 mg/dL cholesterol, target level 200 mg/dL Encounters Code Encounter Date Provider Facility CPT-69027 Level 4 Est. Patient 14:46:38 CDT Pelon Quach MD [facility] CPT-70739 Level 4 Est. Patient 08:43:11 CDT Pelon Quach MD [facility] CPT-28904 Level 4 Est. Patient 14:27:30 CDT Pelon Quach MD [facility] CPT-97868 Level 3 Est. Patient 10:32:17 CDT Jaycee Torrez [facility] CPT-54567 Level 3 Est. Patient 10:15:07 CDT Pelon Quach MD [facility] CPT-98377 Level 4 Est. Patient 09:30:54 CDT Pelon Quach MD [facility] CPT-53087 Level 4 Est. Patient 14:34:25 CDT Pelon Quach MD [facility] CPT-31933 Level 3 Est. Patient 11:51:35 JAVA ANALYST Rick Henson DO [facility] CPT-74911 Level 3 Est. Patient 12:13:33 JAVA ANALYST Erik Baptiste MD [facility] CPT-14407 Level 3 Est. Patient 09:40:44 JAVA ANALYST Jaycee Torrez [facility] CPT-33323 Level 3 Est. Patient 09:36:32 JAVA ANALYST Jaycee Torrez PICKER TENDER [facility] CPT-49467 Level 4 Est. Patient 16:57:02 JAVA ANALYST Pelon Quach MD [facility] CPT-06777 Level 4 Est. Patient 22:19:34 CDT Pelon Quach MD [facility] CPT-75529 Level 3 Est. Patient 00:34:41 CDT Pelon Quach MD [facility]-72785 Level 4 Est. Patient 11:19:14 CDT Pelon Quach MD [facility]-92764 Level 4 Est. Patient 16:43:30 JAVA ANALYST Pelon Quach MD [facility]-77529 Level 4 Est. Patient 12:42:18 CDT Pelon Quach MD [facility] CPT-34111 Level 4 Est. Patient 11:52:20 CDT Pelon Quach MD [facility]-81098 Level 4 Est. Patient 13:59:46 CDT Pelon Quach MD [facility]-77048 Level 4 Est. Patient 15:10:48 CDT Pelon Quach MD [facility]-76143 Level 4 Est. Patient 17:13:06 CDT Pelon Quach MD [facility] CPT-76937 Level 4 Est. Patient 18:47:47 CDT Pelon Quach MD [facility]-26336 Level 3 Est. Patient 21:01:27 CDT Pelon Quach MD [facility]-89451 Level 3 Est. Patient 14:07:03 CDT Taty Alvarado MD PhD [facility] CPT-33817 Level 3 New Patient 21:39:52 JAVA ANALYST Pelon Quach MD [facility]-88861 Level 3 Est. Patient 14:28:44 CDT Glenn Thornton MD [facility]-99718 Level 3 Est. Patient 16:35:00 CDT Glenn Thornton MD [facility] CPT-87667 Level 4 New Patient 17:06:27 CDT Glenn Thornton MD [facility] [place] Procedures Code Procedure Name Date Entry Date Standard Description CPT-G0438 Initial Annual Wellness Exam 09:30:54 CDT CPT-00348 Prevnar 13 Intramuscular Suspension 14:34:25 CDT 12/27 CPT-42904 Chest 2V Frontal and Lat - XRAY USE ONLY 11:56:13 JAVA ANALYST CPT-13838 Cystoscopy 14:28:44 CDT CPT-98796 Bladder Scan 14:28:44 CDT CPT-05530 Indwelling Cath Change 17:06:27 CDT CPT-43279 Cystoscopy 17:06:27 CDT
--- OUTSIDE RECORDS SUMMARY | 2018-06-22 12:35 | XMS REPORT | Clinical Summary ---
Author Author Admin, ONESIMO Organization [facility] [employer] Address Unknown Phone Unavailable Allergies, Adverse Reactions, [...] TABS 1 twice a day SULFAMETHOXAZOLE- TRIMETHOPRIM 84898862926 Active Erik Baptiste MD Active IPRATROPIUM-ALBUTEROL 0.5-2.5 (3) MG/3ML INH SOLN 1 neb treatment QID for cough Dx: J06.9 IPRATROPIUM-ALBUTEROL 74722319487 Active NICOLETTE Hitchcock Active IPRATROPIUM-ALBUTEROL 0.5-2.5 (3) MG/3ML SOLN 1 neb treatment four times daily , for cough IPRATROPIUM-ALBUTEROL 36032106149 No Longer Active Jaycee Garcia APRN Active TYLENOL 8 HOUR 650 MG ORAL CR-TABS Take 1 tab po up to 3 times daily as needed ACETAMINOPHEN 05423449512 Active Jayceehugo Garcia APRN Active FUROSEMIDE 40 MG TABS Take one by mouth daily FUROSEMIDE 04476942729 No Longer Active Jaycee Garcia VICTORINO Active LANTUS 100 UNIT/ML SC SOLN 20 SUBQ AT HS INSULIN GLARGINE 14197194833 Active Jayceehugo Garcia APRN Active LAMICTAL 25 MG ORAL TABS 2 tabs po BID for convulsions LAMOTRIGINE 87050688569 Active Jaycee Jose VICTORINO Active INVEGA 6 MG ORAL [id number] 1 po daily for Schizophrenia PALIPERIDONE 44031080664 Active Jayceehugo Garcia APRN Active LASIX 20 MG TAB 1 tablet by mouth every morning for edema FUROSEMIDE 44311577621 Active Jaycee Jose VICTORINO Active BUSPIRONE HCL 10 MG TABS 1 tab by mouth BID BUSPIRONE HCL 31798162898 Active Jayceehugo Garcia APRN Active NOVOLOG 100 UNIT/ML SC SOLN 10 UNITS BEFORE SUPPER INSULIN ASPART 03514235615 Active Jaycee Garcia VICTORINO Active NOVOLOG 100 UNIT/ML SC SOLN 10 UNITS BID BEFORE BREAKFAST AND LUNCH INSULIN ASPART 35322724899 Active Jaycee Garcia VICTORINO Active LAMICTAL 25 MG TABS 2 tabs by mouth twice a day LAMOTRIGINE 11884234574 Active Pelon Quach MD Active ADULT ASPIRIN EC LOW STRENGTH 81 MG TBEC Take one by mouth daily ASPIRIN 82977970108 No Longer Active Pelon Quach MD Active ASPIRIN 81 MG ORAL TABS 1 po qd ASPIRIN 81634311792 Active Pelon Quach MD Active ZOFRAN 4 MG TABS 1 po q6hr PRN Nausea ONDANSETRON HCL 61738345456 No Longer Active Pelon Quach MD Active TYLENOL 325 MG TAB 1-2 pills by mouth every 6 hours if needed for pain/fever ACETAMINOPHEN 06386567677 No Longer Active Pelon Quach MD Active INVEGA 6 MG ORAL [id number] 1 TAB ONCE DAILY PALIPERIDONE 10858043512 No Longer Active Carly Suggs Active TEGRETOL 200 MG TABS by mouth twice a day CARBAMAZEPINE 73045977040 Active Taty Alvarado MD PhD Active FLOMAX 0.4 MG CAPS 1 Daily TAMSULOSIN HCL 62320850248 Active Marianela Juarez Active DILANTIN 100 MG CAPS Take one by mouth daily PHENYTOIN SODIUM EXTENDED 21401031721 No Longer Active Marianela Juarez Active DEPAKOTE SPRINKLES 125 MG CPSP 4 capsules by mouth twice daily DIVALPROEX SODIUM 19123455274 No Longer Active Marianelachandrika Juarez Active LAMICTAL 200 MG ORAL TABS 1 BY MOUTH TWICE A DAY LAMOTRIGINE 67920740766 Active Marianelachandrika Juarez Active LAMICTAL 100 MG TABS by mouth twice a day LAMOTRIGINE 42844681420 No Longer Active Marianelachandrika Juarez Active LAMICTAL 150 MG TABS by mouth twice a day LAMOTRIGINE 76636205308 No Longer Active Marianelachandrika Shankarronyn Active DILANTIN 100 MG CAPS Take three by mouth daily PHENYTOIN SODIUM EXTENDED 06006080105 No Longer Active Marianela Juarez Active SENOKOT 8.6 MG TABS take at bedtime SENNOSIDES 28128731538 Active Glenn Thornton MD Active LIPITOR 20 MG TABS take at bedtime ATORVASTATIN CALCIUM 31735599695 Active Glenn Thornton MD Active LISINOPRIL 2.5 MG TABS Take one by mouth daily LISINOPRIL 00186296118 Active Glenn Thornton MD Active TRENTAL 400 MG CR-TABS by mouth twice a day PENTOXIFYLLINE 93181070064 Active Glenn Thornton MD Active KLOR-CON 10 10 MEQ CR-TABS Take one by mouth daily POTASSIUM CHLORIDE 01417013278 Active Glenn Thornton MD Active DILANTIN 100 MG CAPS Take three by mouth daily DILANTIN 100 MG CAPS 093628 PHENYTOIN SODIUM EXTENDED Inactive LAMICTAL 150 MG TABS by mouth twice a day LAMICTAL 150 MG TABS 19831025 LAMOTRIGINE Inactive LAMICTAL 100 MG TABS by mouth twice a day LAMICTAL 100 MG TABS 19831024 LAMOTRIGINE Inactive DEPAKOTE SPRINKLES 125 MG CPSP 4 capsules by mouth twice daily DEPAKOTE SPRINKLES 125 MG CPSP 0592268 DIVALPROEX SODIUM Inactive DILANTIN 100 MG CAPS Take one by mouth daily DILANTIN 100 MG CAPS 503957 PHENYTOIN SODIUM EXTENDED Inactive INVEGA 6 MG ORAL [id number] 1 TAB ONCE DAILY INVEGA 6 MG ORAL [id number] PALIPERIDONE Inactive TYLENOL 325 MG TAB 1-2 pills by mouth every 6 hours if needed for pain/fever TYLENOL 325 MG TAB 897805 ACETAMINOPHEN Inactive ZOFRAN 4 MG TABS 1 po q6hr PRN Nausea ZOFRAN 4 MG TABS 103651 ONDANSETRON HCL Inactive ADULT ASPIRIN EC LOW STRENGTH 81 MG TBEC Take one by mouth daily ADULT ASPIRIN EC LOW STRENGTH 81 MG TBEC 758323 ASPIRIN Inactive FUROSEMIDE 40 MG TABS Take one by mouth daily FUROSEMIDE 40 MG TABS 228855 FUROSEMIDE Inactive IPRATROPIUM-ALBUTEROL 0.5-2.5 (3) MG/3ML SOLN 1 neb treatment four times daily , for cough IPRATROPIUM-ALBUTEROL 0.5-2.5 (3) MG/3ML SOLN 6377021 IPRATROPIUM-ALBUTEROL Inactive Advance Directives Directive Description Start Date DURABLE POWER OF BORDER MEASURER AND CUTTER FOR HEALTHCARE PERMISSION TO SHARE ADVANCED [...] mg/dL Encounters Code Encounter Date Provider Facility CPT-26977 Level 3 Est. Patient 12:13:33 TOP EDGE BEVELER Erik Baptiste MD [facility] CPT-64357 Level 3 Est. Patient 09:40:44 TOP EDGE BEVELER Jaycee Garcia [facility] CPT-25540 Level 3 Est. Patient 09:36:32 TOP EDGE BEVELER Jaycee Garcia [facility] CPT-18039 Level 4 Est. Patient 16:57:02 TOP EDGE BEVELER Pelon Quach MD [facility] CPT-07446 Level 4 Est. Patient 22:19:34 CDT Pelon Quach MD [facility] CPT-98052 Level 3 Est. Patient 00:34:41 CDT Pelon Quach MD [facility] [place]-50840 Level 4 Est. Patient 11:19:14 CDT Pelon Quach MD [facility] CPT-48139 Level 4 Est. Patient 16:43:30 TOP EDGE BEVELER Pelon Quach MD [facility] CPT-75188 Level 4 Est. Patient 12:42:18 CDT Pelon Quach MD [facility] CPT-55433 Level 4 Est. Patient 11:52:20 CDT Pelon Quach MD [facility] CPT-43601 Level 4 Est. Patient 13:59:46 CDT Pelon Quach MD [facility] CPT-59289 Level 4 Est. Patient 15:10:48 CDT Pelon Quach MD [facility] CPT-12924 Level 4 Est. Patient 17:13:06 CDT Pelon Quach MD [facility] CPT-25354 Level 4 Est. Patient 18:47:47 CDT Pelon Quach MD [facility] CPT-90097 Level 3 Est. Patient 21:01:27 CDT Pelon Quach MD [facility] CPT-31195 Level 3 Est. Patient 14:07:03 CDT Taty Alvarado MD PhD [facility] CPT-41574 Level 3 New Patient 21:39:52 TOP EDGE BEVELER Pelon Quach MD [facility] CPT-59681 Level 3 Est. Patient 14:28:44 CDT Glenn Thornton MD [facility] CPT-93847 Level 3 Est. Patient 16:35:00 CDT Glenn Thornton MD [facility] CPT-10727 Level 4 New Patient 17:06:27 CDT Glenn Thornton MD [facility] Procedures Code Procedure Name Date Entry Date Standard Description CPT-78826 Cystoscopy 14:28:44 CDT CPT-78915 Bladder Scan 14:28:44 CDT CPT-61606 Indwelling Cath Change 17:06:27 CDT CPT-82477 Cystoscopy 17:06:27 CDT
--- OUTSIDE RECORDS SUMMARY | 2018-06-22 12:36 | XMS REPORT | Clinical Summary ---
Author Author Admin, ONESIMO Organization [facility] [email or web address] [place] Address Unknown Phone Unavailable Allergies, Adverse Reactions, [...] Neurogenic bladder NOS HYPERLIPIDEMIA 272.4 Active Glenn Thorntno MD Other and unspecified hyperlipidemia INCOMPLETE BLADDER [...] TABS 1 twice a day SULFAMETHOXAZOLE- TRIMETHOPRIM 28287863297 Active Erik Baptiste MD Active IPRATROPIUM-ALBUTEROL 0.5-2.5 (3) MG/3ML INH SOLN 1 neb treatment QID for cough Dx: J06.9 IPRATROPIUM-ALBUTEROL 95267242760 Active Jaycee Garcia APRN Active IPRATROPIUM-ALBUTEROL 0.5-2.5 (3) MG/3ML SOLN 1 neb treatment four times daily , for cough IPRATROPIUM-ALBUTEROL 22642614605 No Longer Active Jaycee Garcia APRN Active TYLENOL 8 HOUR 650 MG ORAL CR-TABS Take 1 tab po up to 3 times daily as needed ACETAMINOPHEN 48709497081 Active Jaycee Jose MECHANICAL SHOP LABORER Active FUROSEMIDE 40 MG TABS Take one by mouth daily FUROSEMIDE 54953295200 No Longer Active Jaycee Garcia VICTORINO Active LANTUS 100 UNIT/ML SC SOLN 20 SUBQ AT HS INSULIN GLARGINE 95409304878 Active Jaycee Jose MECHANICAL SHOP LABORER Active LAMICTAL 25 MG ORAL TABS 2 tabs po BID for convulsions LAMOTRIGINE 66520969948 Active Jaycee Garcia VICTORINO Active INVEGA 6 MG ORAL [id number] 1 po daily for Schizophrenia PALIPERIDONE 23477159807 Active Jaycee Garcia VICTORINO Active LASIX 20 MG TAB 1 tablet by mouth every morning for edema FUROSEMIDE 86457634855 Active Jayceehugo Garcia APRN Active BUSPIRONE HCL 10 MG TABS 1 tab by mouth BID BUSPIRONE HCL 13963215075 Active Jaycee Garcia VICTORINO Active NOVOLOG 100 UNIT/ML SC SOLN 10 UNITS BEFORE SUPPER INSULIN ASPART 25345404658 Active Jaycee Garcia VICTORINO Active NOVOLOG 100 UNIT/ML SC SOLN 10 UNITS BID BEFORE BREAKFAST AND LUNCH INSULIN ASPART 43028640514 Active Jaycee Gracia VICTORINO Active LAMICTAL 25 MG TABS 2 tabs by mouth twice a day LAMOTRIGINE 87608006010 Active Pelon Quach MD Active ADULT ASPIRIN EC LOW STRENGTH 81 MG TBEC Take one by mouth daily ASPIRIN 87990451335 No Longer Active Pelon Quach MD Active ASPIRIN 81 MG ORAL TABS 1 po qd ASPIRIN 40046790700 Active Pelon Quach MD Active ZOFRAN 4 MG TABS 1 po q6hr PRN Nausea ONDANSETRON HCL 53030092155 No Longer Active Pelon Quach MD Active TYLENOL 325 MG TAB 1-2 pills by mouth every 6 hours if needed for pain/fever ACETAMINOPHEN 30776045883 No Longer Active Pelon Quach MD Active INVEGA 6 MG ORAL [id number] 1 TAB ONCE DAILY PALIPERIDONE 99058563613 No Longer Active Carly Suggs Active TEGRETOL 200 MG TABS by mouth twice a day CARBAMAZEPINE 69295952014 Active Taty Alvarado MD PhD Active FLOMAX 0.4 MG CAPS 1 Daily TAMSULOSIN HCL 04074077449 Active Marianelachandrika Juarez Active DILANTIN 100 MG CAPS Take one by mouth daily PHENYTOIN SODIUM EXTENDED 02885016481 No Longer Active Marianelachandrika Juarez Active DEPAKOTE SPRINKLES 125 MG CPSP 4 capsules by mouth twice daily DIVALPROEX SODIUM 52889980567 No Longer Active Marianelachandrika Juarez Active LAMICTAL 200 MG ORAL TABS 1 BY MOUTH TWICE A DAY LAMOTRIGINE 35816859090 Active Marianelachandrika Juarez Active LAMICTAL 100 MG TABS by mouth twice a day LAMOTRIGINE 93021820719 No Longer Active Marianelachandrika Juarez Active LAMICTAL 150 MG TABS by mouth twice a day LAMOTRIGINE 94186988907 No Longer Active Marianelachandrika Juarez Active DILANTIN 100 MG CAPS Take three by mouth daily PHENYTOIN SODIUM EXTENDED 75453016038 No Longer Active Marianela Juarez Active SENOKOT 8.6 MG TABS take at bedtime SENNOSIDES 57985594423 Active Glenn Thornton MD Active LIPITOR 20 MG TABS take at bedtime ATORVASTATIN CALCIUM 18504514139 Active Glenn Thornton MD Active LISINOPRIL 2.5 MG TABS Take one by mouth daily LISINOPRIL 31047043990 Active Glenn Thornton MD Active TRENTAL 400 MG CR-TABS by mouth twice a day PENTOXIFYLLINE 75173088026 Active Glenn Thornton MD Active KLOR-CON 10 10 MEQ CR-TABS Take one by mouth daily POTASSIUM CHLORIDE 00106499102 Active Glenn Thornton MD Active DILANTIN 100 MG CAPS Take three by mouth daily DILANTIN 100 MG CAPS 106487 PHENYTOIN SODIUM EXTENDED Inactive LAMICTAL 150 MG TABS by mouth twice a day LAMICTAL 150 MG TABS 19831025 LAMOTRIGINE Inactive LAMICTAL 100 MG TABS by mouth twice a day LAMICTAL 100 MG TABS 19831024 LAMOTRIGINE Inactive DEPAKOTE SPRINKLES 125 MG CPSP 4 capsules by mouth twice daily DEPAKOTE SPRINKLES 125 MG CPSP 5487387 DIVALPROEX SODIUM Inactive DILANTIN 100 MG CAPS Take one by mouth daily DILANTIN 100 MG CAPS 219226 PHENYTOIN SODIUM EXTENDED Inactive INVEGA 6 MG ORAL [id number] 1 TAB ONCE DAILY INVEGA 6 MG ORAL [id number] PALIPERIDONE Inactive TYLENOL 325 MG TAB 1-2 pills by mouth every 6 hours if needed for pain/fever TYLENOL 325 MG TAB 465543 ACETAMINOPHEN Inactive ZOFRAN 4 MG TABS 1 po q6hr PRN Nausea ZOFRAN 4 MG TABS 435448 ONDANSETRON HCL Inactive ADULT ASPIRIN EC LOW STRENGTH 81 MG TBEC Take one by mouth daily ADULT ASPIRIN EC LOW STRENGTH 81 MG TBEC 309512 ASPIRIN Inactive FUROSEMIDE 40 MG TABS Take one by mouth daily FUROSEMIDE 40 MG TABS 123194 FUROSEMIDE Inactive IPRATROPIUM-ALBUTEROL 0.5-2.5 (3) MG/3ML SOLN 1 neb treatment four times daily , for cough IPRATROPIUM-ALBUTEROL 0.5-2.5 (3) MG/3ML SOLN 1691374 IPRATROPIUM-ALBUTEROL Inactive Advance Directives Directive Description Start Date DURABLE POWER OF GRAVITY MANAGER FOR HEALTHCARE PERMISSION TO SHARE ADVANCED [...] mg/dL Encounters Code Encounter Date Provider Facility CPT-53521 Level 3 Est. Patient 11:51:35 ADVANCED PRACTICE REGISTERED NURSE Rick Henson DO [facility] CPT-02318 Level 3 Est. Patient 12:13:33 ADVANCED PRACTICE REGISTERED NURSE Erik Baptiste MD [facility] CPT-20682 Level 3 Est. Patient 09:40:44 ADVANCED PRACTICE REGISTERED NURSE Jaycee Garcia [facility] CPT-06134 Level 3 Est. Patient 09:36:32 ADVANCED PRACTICE REGISTERED NURSE Jaycee Garcia [facility] CPT-98348 Level 4 Est. Patient 16:57:02 ADVANCED PRACTICE REGISTERED NURSE Pelon Quach MD [facility] CPT-88711 Level 4 Est. Patient 22:19:34 CDT Pelon Quach MD [facility] CPT-20240 Level 3 Est. Patient 00:34:41 CDT Pelon Quach MD [facility] CPT-22758 Level 4 Est. Patient 11:19:14 CDT Pelon Quach MD [facility] CPT-69361 Level 4 Est. Patient 16:43:30 ADVANCED PRACTICE REGISTERED NURSE Pelon Quach MD [facility] CPT-98372 Level 4 Est. Patient 12:42:18 CDT Pelon Quach MD [facility] CPT-23600 Level 4 Est. Patient 11:52:20 CDT Pelon Quach MD [facility] CPT-62391 Level 4 Est. Patient 13:59:46 CDT Pelon Quach MD [facility] CPT-66294 Level 4 Est. Patient 15:10:48 CDT Pelon Quach MD [facility] CPT-73715 Level 4 Est. Patient 17:13:06 CDT Pelon Quach MD [facility] CPT-69868 Level 4 Est. Patient 18:47:47 CDT Pelon Quach MD [facility] CPT-17608 Level 3 Est. Patient 21:01:27 CDT Pelon Quach MD [facility] CPT-97223 Level 3 Est. Patient 14:07:03 CDT Taty Alvarado MD PhD [facility] CPT-63925 Level 3 New Patient 21:39:52 ADVANCED PRACTICE REGISTERED NURSE Pelon Quach MD [facility] CPT-02488 Level 3 Est. Patient 14:28:44 CDT Glenn Thornton MD [facility] CPT-78335 Level 3 Est. Patient 16:35:00 CDT Glenn Thornton MD [facility] CPT-04460 Level 4 New Patient 17:06:27 CDT Glenn Thornton MD [facility] [place] Procedures Code Procedure Name Date Entry Date Standard Description CPT-58715 Chest 2V Frontal and Lat - XRAY USE ONLY 11:56:13 ADVANCED PRACTICE REGISTERED NURSE CPT-05902 Cystoscopy 14:28:44 CDT CPT-79895 Bladder Scan 14:28:44 CDT CPT-36325 Indwelling Cath Change 17:06:27 CDT CPT-20175 Cystoscopy 17:06:27 CDT
--- OUTSIDE RECORDS SUMMARY | 2018-06-22 12:37 | XMS REPORT | Clinical Summary ---
Author Author Admin, ONESIMO Organization [facility] [employer] [place] Address Unknown Phone Unavailable Allergies, [...] 6 hours PRN allergic reaction DIPHENHYDRAMINE HCL 89457986841 Active NICOLETTE Hitchcock Active INVEGA 6 MG ORAL [id number] 1 po daily for Schizophrenia PALIPERIDONE 01902764244 No Longer Active Pelon Quach MD Active TYLENOL 8 HOUR 650 MG ORAL CR-TABS Take 1 tab po up to 3 times daily as needed ACETAMINOPHEN 40035699864 No Longer Active Pelon Quach MD Active IPRATROPIUM-ALBUTEROL 0.5-2.5 (3) MG/3ML INH SOLN 1 neb treatment QID for cough Dx: J06.9 IPRATROPIUM-ALBUTEROL 19111584997 No Longer Active ePlon Quach MD Active BACTRIM DS 800-160 MG TAB 1 tab by mouth twice daily TRIMETHOPRIM-SULFAMETHOXAZOLE 73433554586 No Longer Active Pelon Quach MD Active BACTROBAN 2 % OINTMENT Apply to affected area BID MUPIROCIN 86371996442 Active Jaycee Garcia APRN Active BACTRIM DS 800-160 MG TABS 1 twice a day SULFAMETHOXAZOLE-TRIMETHOPRIM 15649292365 No Longer Active Pelon Quach MD Active IPRATROPIUM-ALBUTEROL 0.5-2.5 (3) MG/3ML SOLN 1 neb treatment four times daily , for cough IPRATROPIUM-ALBUTEROL 26893733117 No Longer Active Jaycee Garcia APRN Active FUROSEMIDE 40 MG TABS Take one by mouth daily FUROSEMIDE 01605131232 No Longer Active Jaycee Garcia APRN Active LANTUS 100 UNIT/ML SC SOLN 20 SUBQ AT HS INSULIN GLARGINE 49285203826 Active Jaycee Garcia APRN Active LAMICTAL 25 MG ORAL TABS 2 tabs po BID for convulsions LAMOTRIGINE 50463434617 Active Jaycee Garcia APRN Active LASIX 20 MG TAB 1 tablet by mouth every morning for edema FUROSEMIDE 54606553597 Active Jaycee Garcia APRN Active BUSPIRONE HCL 10 MG TABS 1 tab by mouth BID BUSPIRONE HCL 54443751203 Active Jaycee Garcia MULTIMEDIA DESIGNER Active NOVOLOG 100 UNIT/ML SC SOLN 10 UNITS BEFORE SUPPER INSULIN ASPART 22340959462 Active Jaycee Garcia APRN Active NOVOLOG 100 UNIT/ML SC SOLN 10 UNITS BID BEFORE BREAKFAST AND LUNCH INSULIN ASPART 11199951081 Active Jaycee Garcia APRN Active LAMICTAL 25 MG TABS 2 tabs by mouth twice a day LAMOTRIGINE 46055619855 Active Pelon Quach MD Active ADULT ASPIRIN EC LOW STRENGTH 81 MG TBEC Take one by mouth daily ASPIRIN 85751459817 No Longer Active Pelon Quach MD Active ASPIRIN 81 MG ORAL TABS 1 po qd ASPIRIN 15881367260 Active Pelon Quach MD Active ZOFRAN 4 MG TABS 1 po q6hr PRN Nausea ONDANSETRON HCL 67793617691 No Longer Active Pelon Quach MD Active TYLENOL 325 MG TAB 1-2 pills by mouth every 6 hours if needed for pain/fever ACETAMINOPHEN 99444868870 No Longer Active Pelon Quach MD Active INVEGA 6 MG ORAL [id number] 1 TAB ONCE DAILY PALIPERIDONE 68187369721 No Longer Active Carly Suggs Active TEGRETOL 200 MG TABS by mouth twice a day CARBAMAZEPINE 39361298672 Active Taty Alvarado MD PhD Active FLOMAX 0.4 MG CAPS 1 Daily TAMSULOSIN HCL 44716918414 Active Marianela Juarez Active DILANTIN 100 MG CAPS Take one by mouth daily PHENYTOIN SODIUM EXTENDED 23580669401 No Longer Active Marianela Juarez Active DEPAKOTE SPRINKLES 125 MG CPSP 4 capsules by mouth twice daily DIVALPROEX SODIUM 98276183699 No Longer Active Marianela Juarez Active LAMICTAL 200 MG ORAL TABS 1 BY MOUTH TWICE A DAY LAMOTRIGINE 57737720630 Active Marianela Juarez Active LAMICTAL 100 MG TABS by mouth twice a day LAMOTRIGINE 81768638945 No Longer Active Marianela Juarez Active LAMICTAL 150 MG TABS by mouth twice a day LAMOTRIGINE 90731370889 No Longer Active Marianela Juarez Active DILANTIN 100 MG CAPS Take three by mouth daily PHENYTOIN SODIUM EXTENDED 50202873770 No Longer Active Marianela Shankarronny Active SENOKOT 8.6 MG TABS take at bedtime SENNOSIDES 00588391154 Active Glenn Thornton MD Active LIPITOR 20 MG TABS take at bedtime ATORVASTATIN CALCIUM 06041179331 Active Glenn Thornton MD Active LISINOPRIL 2.5 MG TABS Take one by mouth daily LISINOPRIL 56209774241 Active Glenn Thornton MD Active TRENTAL 400 MG CR-TABS by mouth twice a day PENTOXIFYLLINE 15002343223 Active Glenn Thornton MD Active KLOR-CON 10 10 MEQ CR-TABS Take one by mouth daily POTASSIUM CHLORIDE 73245047012 Active Glenn Thornton MD Active DILANTIN 100 MG CAPS Take three by mouth daily DILANTIN 100 MG CAPS 478215 PHENYTOIN SODIUM EXTENDED Inactive LAMICTAL 150 MG TABS by mouth twice a day LAMICTAL 150 MG TABS 803824 LAMOTRIGINE Inactive LAMICTAL 100 MG TABS by mouth twice a day LAMICTAL 100 MG TABS 19831024 LAMOTRIGINE Inactive DEPAKOTE SPRINKLES 125 MG CPSP 4 capsules by mouth twice daily DEPAKOTE SPRINKLES 125 MG CPSP 1309930 DIVALPROEX SODIUM Inactive DILANTIN 100 MG CAPS Take one by mouth daily DILANTIN 100 MG CAPS 978602 PHENYTOIN SODIUM EXTENDED Inactive INVEGA 6 MG ORAL [id number] 1 TAB ONCE DAILY INVEGA 6 MG ORAL [id number] PALIPERIDONE Inactive TYLENOL 325 MG TAB 1-2 pills by mouth every 6 hours if needed for pain/fever TYLENOL 325 MG TAB 368870 ACETAMINOPHEN Inactive ZOFRAN 4 MG TABS 1 po q6hr PRN Nausea ZOFRAN 4 MG TABS 690592 ONDANSETRON HCL Inactive ADULT ASPIRIN EC LOW STRENGTH 81 MG TBEC Take one by mouth daily ADULT ASPIRIN EC LOW STRENGTH 81 MG TBEC 277442 ASPIRIN Inactive FUROSEMIDE 40 MG TABS Take one by mouth daily FUROSEMIDE 40 MG TABS 567775 FUROSEMIDE Inactive BACTRIM DS 800-160 MG TABS 1 twice a day BACTRIM DS 800-160 MG TABS 668933 SULFAMETHOXAZOLE-TRIMETHOPRIM Inactive IPRATROPIUM-ALBUTEROL 0.5-2.5 (3) MG/3ML INH SOLN 1 neb treatment QID for cough Dx: J06.9 IPRATROPIUM-ALBUTEROL 0.5-2.5 (3) MG/ 3ML INH SOLN 9026733 IPRATROPIUM-ALBUTEROL Inactive TYLENOL 8 HOUR 650 MG ORAL CR-TABS Take 1 tab po up to 3 times daily as needed TYLENOL 8 HOUR 650 MG ORAL CR-TABS ACETAMINOPHEN Inactive INVEGA 6 MG ORAL [id number] 1 po daily for Schizophrenia INVEGA 6 MG ORAL [id number] PALIPERIDONE Inactive IPRATROPIUM-ALBUTEROL 0.5-2.5 (3) MG/3ML SOLN 1 neb treatment four times daily , for cough IPRATROPIUM-ALBUTEROL 0.5-2.5 (3) MG/3ML SOLN 8835653 IPRATROPIUM-ALBUTEROL Inactive BACTRIM DS 800-160 MG TAB 1 tab by mouth twice daily BACTRIM DS 800-160 MG TAB 19821119 TRIMETHOPRIM-SULFAMETHOXAZOLE Inactive Advance Directives Directive Description Start Date DURABLE POWER OF SHRUB GROWER FOR HEALTHCARE PERMISSION TO SHARE ADVANCED DIRECTIVE [...] Panel - Chemistry sodium, serum 129 mmol/L 411-386 7188/07/12 carbon dioxide, venous blood 27.8 mmol/L 21.0-32.0 [...] mg/dL Encounters Code Encounter Date Provider Facility CPT-58996 Level 4 Est. Patient 14:27:30 CDT Pelon Quach MD [facility] CPT-53677 Level 3 Est. Patient 10:32:17 CDT Jaycee Garcia APRN [facility] CPT-48048 Level 3 Est. Patient 10:15:07 CDT Pelon Quach MD [facility] CPT-19665 Level 4 Est. Patient 09:30:54 CDT Pelon Quach MD [facility] CPT-13672 Level 4 Est. Patient 14:34:25 CDT Pelon Quach MD [facility] CPT-16110 Level 3 Est. Patient 11:51:35 UNIX ANALYST Rick Henson DO [facility] CPT-56392 Level 3 Est. Patient 12:13:33 UNIX ANALYST Erik Baptiste MD [facility]-05570 Level 3 Est. Patient 09:40:44 UNIX ANALYST [id number] Level 3 Est. Patient 09:36:32 UNIX ANALYST Jaycee [facility] [id number] Level 4 Est. Patient 16:57:02 UNIX ANALYST Pelon Quach MD [facility]-99917 Level 4 Est. Patient 22:19:34 CDT Pelon Quach MD [facility]-74622 Level 3 Est. Patient 00:34:41 CDT Pelon Quach MD [facility]-79603 Level 4 Est. Patient 11:19:14 CDT Pelon Quach MD [facility]-45900 Level 4 Est. Patient 16:43:30 UNIX ANALYST Pelon Quach MD [facility]-36404 Level 4 Est. Patient 12:42:18 CDT Pelon Quach MD [facility] [place]-72589 Level 4 Est. Patient 11:52:20 CDT Pelon Quach MD [facility] [place]-91644 Level 4 Est. Patient 13:59:46 CDT Pelon Quach MD [facility] [place]-54290 Level 4 Est. Patient 15:10:48 CDT Pelon Quach MD [facility] [place]-32435 Level 4 Est. Patient 17:13:06 CDT Pelon Quach MD [facility] [place]-20925 Level 4 Est. Patient 18:47:47 CDT Pelon Quach MD [facility] [place]-68626 Level 3 Est. Patient 21:01:27 CDT Pelon Quach MD [facility] CPT-82549 Level 3 Est. Patient 14:07:03 CDT Taty Alvarado MD PhD [facility] CPT-11598 Level 3 New Patient 21:39:52 UNIX ANALYST Pelon Quach MD [facility] CPT-99650 Level 3 Est. Patient 14:28:44 CDT Glenn Thornton MD [facility] CPT-77196 Level 3 Est. Patient 16:35:00 CDT Glenn Thornton MD [facility] CPT-82932 Level 4 New Patient 17:06:27 CDT Glenn Thornton MD [facility] [place] Procedures Code Procedure Name Date Entry Date Standard Description CPT-G0438 Initial Annual Wellness Exam 09:30:54 CDT CPT-00566 Prevnar 13 Intramuscular Suspension 14:34:25 CDT 12/27 CPT-64021 Chest 2V Frontal and Lat - XRAY USE ONLY 11:56:13 UNIX ANALYST CPT-14590 Cystoscopy 14:28:44 CDT CPT-85220 Bladder Scan 14:28:44 CDT CPT-24369 Indwelling Cath Change 17:06:27 CDT CPT-11189 Cystoscopy 17:06:27 CDT
--- OUTSIDE RECORDS SUMMARY | 2018-06-22 12:38 | XMS REPORT | Clinical Summary ---
Author Author Admin, ONESIMO Organization [facility] [employer] [place] Address Unknown Phone Unavailable Allergies, Adverse Reactions, Alerts Allergy Name Reaction Description Start Date Severity Status Provider SULFA rash Critical Active Pelon Quach MD BACTROBAN Moderate Active Pelon Quach MD Conditions or Problems Problem Name Problem Code Onset Date Status Entry Date Provider Comment Standard Description Annotate History of ANXIETY 300.00 Inactive Pelon Qauch MD Anxiety state, unspecified HYPERTENSION 401.9 Active [...] 1 po q8hr PRN Congestion DIPHENHYDRAMINE HCL 84327188110 Active Pelon Quach MD Active ZOFRAN 4 MG ORAL TABLET 1 po q6hr PRN Nausea ONDANSETRON HCL 60068105781 Active Pelon Quach MD Active IMODIUM A-D 2 MG ORAL TABLET One QID prn diarrhea. No more than 4 tabs daily LOPERAMIDE HCL 26861765099 Active Pelon Quach MD Active TYLENOL 325 MG ORAL TABLET 2 tabs po prn for pain elevated temp ACETAMINOPHEN 56899384816 Active Pelon Quach MD Active MUCINEX D 60-600 MG ORAL TABLET EXTENDED RELEASE 12 HOUR 1 po BID PRN Congestion PSEUDOEPHEDRINE-GUAIFENESIN 79757546191 Active Pelon Quach MD Active IBUPROFEN 200 MG ORAL TABLET q 6hrs prn pain IBUPROFEN 60636947394 Active Pelon Quach MD Active LORATADINE 10 MG ORAL TABLET 1 tablet by mouth daily prn LORATADINE 02236257717 Active Pelon Quach MD Active BANOPHEN 25 MG ORAL TABLET 1 po every 6 hours PRN allergic reaction DIPHENHYDRAMINE HCL 21706360306 No Longer Active Pelon Quach MD Active EASY TOUCH ALCOHOL PREP MEDIUM 70 % PAD Use with each finger stick and insulin admin Dx: E11.9 ALCOHOL SWABS 15814007637 Active Jaycee Torrez APRN Active HUMALOG KWIKPEN 100 UNIT/ML SUBCUTANEOUS SOLUTION PEN-INJECTOR inject 10 units subcutaneously before meals also sliding scale INSULIN LISPRO 37189695627 Active Pelon Quach MD Active NOVOLOG 100 UNIT/ML SUBCUTANEOUS SOLUTION 10 UNITS BID BEFORE BREAKFAST AND LUNCH INSULIN ASPART 93836166676 No Longer Active NICOLETTE Hitchcock Active NOVOLOG 100 UNIT/ML SUBCUTANEOUS SOLUTION 10 UNITS BEFORE SUPPER INSULIN ASPART 32661129267 No Longer Active NICOLETTE Hitchcock Active INVEGA 6 MG ORAL TABLET EXTENDED RELEASE 24 HOUR 1 po daily for schizophrenia PALIPERIDONE 24137585029 Active Pelon Quach MD Active LAMICTAL 25 MG ORAL TABLET 2 tabs by mouth twice a day LAMOTRIGINE 54640743794 No Longer Active Pelon Quach MD Active BACTROBAN 2 % EXTERNAL OINTMENT Apply to affected area BID 06/28 MUPIROCIN 57774419188 No Longer Active Pelon Quach MD Active INVEGA 6 MG ORAL TABLET EXTENDED RELEASE 24 HOUR 1 po daily for Schizophrenia PALIPERIDONE 98812310722 No Longer Active Pelon Quach MD Active TYLENOL 8 HOUR 650 MG ORAL TABLET EXTENDED RELEASE Take 1 tab po up to 3 times daily as needed ACETAMINOPHEN 50206638573 No Longer Active Pelon Quach MD Active IPRATROPIUM-ALBUTEROL 0.5-2.5 (3) MG/3ML INHALATION SOLUTION 1 neb treatment QID for cough Dx: J06.9 IPRATROPIUM-ALBUTEROL 16904536736 No Longer Active Pelon Quach MD Active BACTRIM DS 800-160 MG ORAL TABLET 1 tab by mouth twice daily 2017 /06/10 TRIMETHOPRIM-SULFAMETHOXAZOLE 78447188585 No Longer Active Pelon Quach MD Active BACTRIM DS 800-160 MG ORAL TABLET 1 twice a day SULFAMETHOXAZOLE-TRIMETHOPRIM 72455354519 No Longer Active Pelon Quach MD Active IPRATROPIUM-ALBUTEROL 0.5-2.5 (3) MG/3ML INHALATION SOLUTION 1 neb treatment four times daily, for cough IPRATROPIUM-ALBUTEROL 16886036954 No Longer Active Jaycee Torrez APRN Active FUROSEMIDE 40 MG ORAL TABLET Take one by mouth daily FUROSEMIDE 58274541049 No Longer Active Jaycee Arenando MOJICAN Active LANTUS 100 UNIT/ML SUBCUTANEOUS SOLUTION 20 SUBQ AT HS INSULIN GLARGINE 63473521732 Active Pelon Quach MD Active LAMICTAL 25 MG ORAL TABLET 2 tabs po BID for convulsions LAMOTRIGINE 32704791012 Active Jaycee Arenando MOJICAN Active LASIX 20 MG ORAL TABLET 1 tablet by mouth every morning for edema FUROSEMIDE 12726306865 Active Jaycee Arenando MOJICAN Active BUSPIRONE HCL 10 MG ORAL TABLET 1 tab by mouth BID BUSPIRONE HCL 67935638991 Active Jaycee Arenando MOJICAN Active ADULT ASPIRIN EC LOW STRENGTH 81 MG ORAL TABLET DELAYED RELEASE Take one by mouth daily ASPIRIN 17474492169 No Longer Active Pelon Quach MD Active ASPIRIN 81 MG ORAL TABLET 1 po qd ASPIRIN 39074764450 Active Pelon Quach MD Active ZOFRAN 4 MG ORAL TABLET 1 po q6hr PRN Nausea ONDANSETRON HCL 75019421343 No Longer Active Pelon Quach MD Active TYLENOL 325 MG ORAL TABLET 1-2 pills by mouth every 6 hours if needed for pain /fever ACETAMINOPHEN 71676949743 No Longer Active Pelon Quach MD Active INVEGA 6 MG ORAL TABLET EXTENDED RELEASE 24 HOUR 1 TAB ONCE DAILY PALIPERIDONE 43051557930 No Longer Active Carly Suggs Active TEGRETOL 200 MG ORAL TABLET by mouth twice a day CARBAMAZEPINE 50845892574 Active Taty Alvarado MD PhD Active FLOMAX 0.4 MG ORAL CAPSULE 1 Daily TAMSULOSIN HCL 60415559436 Active Marianela Juarez Active DILANTIN 100 MG ORAL CAPSULE Take one by mouth daily PHENYTOIN SODIUM EXTENDED 47345031047 No Longer Active Marianela Juarez Active DEPAKOTE SPRINKLES 125 MG ORAL CAPSULE DELAYED RELEASE SPRINKLE 4 capsules by mouth twice daily DIVALPROEX SODIUM 47246363215 No Longer Active Marianela Juarez Active LAMICTAL 200 MG ORAL TABLET 1 BY MOUTH TWICE A DAY LAMOTRIGINE 91706897480 Active Marianela Juarez Active LAMICTAL 100 MG ORAL TABLET by mouth twice a day LAMOTRIGINE 98328844928 No Longer Active Marianelachandrika Juarez Active LAMICTAL 150 MG ORAL TABLET by mouth twice a day LAMOTRIGINE 10704997253 No Longer Active Marianela Juarez Active DILANTIN 100 MG ORAL CAPSULE Take three by mouth daily PHENYTOIN SODIUM EXTENDED 92116144240 No Longer Active Marianela Juarez Active SENOKOT 8.6 MG ORAL TABLET take at bedtime SENNOSIDES 95328954445 Active Pelon Quach MD Active LIPITOR 20 MG ORAL TABLET take at bedtime ATORVASTATIN CALCIUM 93252163257 Active Glenn Thornton MD Active LISINOPRIL 2.5 MG ORAL TABLET Take one by mouth daily LISINOPRIL 47577829231 Active Glenn Thornton MD Active TRENTAL 400 MG CR-TABS by mouth twice a day PENTOXIFYLLINE 13503536040 Active Glenn Thornton MD Active KLOR-CON 10 10 MEQ ORAL TABLET EXTENDED RELEASE Take one by mouth daily POTASSIUM CHLORIDE 31975540881 Active Glenn Thornton MD Active DILANTIN 100 MG ORAL CAPSULE Take three by mouth daily DILANTIN 100 MG ORAL CAPSULE 480199 PHENYTOIN SODIUM EXTENDED Inactive LAMICTAL 150 MG ORAL TABLET by mouth twice a day LAMICTAL 150 MG ORAL TABLET 817376 LAMOTRIGINE Inactive LAMICTAL 100 MG ORAL TABLET by mouth twice a day LAMICTAL 100 MG ORAL TABLET 525165 LAMOTRIGINE Inactive DEPAKOTE SPRINKLES 125 MG ORAL CAPSULE DELAYED RELEASE SPRINKLE 4 capsules by mouth twice daily DEPAKOTE SPRINKLES 125 MG ORAL CAPSULE DELAYED RELEASE SPRINKLE 6860920 DIVALPROEX SODIUM Inactive DILANTIN 100 MG ORAL CAPSULE Take one by mouth daily DILANTIN 100 MG ORAL CAPSULE 221340 PHENYTOIN SODIUM EXTENDED Inactive INVEGA 6 MG ORAL TABLET EXTENDED RELEASE 24 HOUR 1 TAB ONCE DAILY INVEGA 6 MG ORAL TABLET EXTENDED RELEASE 24 HOUR PALIPERIDONE Inactive TYLENOL 325 MG ORAL TABLET 1-2 pills by mouth every 6 hours if needed for pain /fever TYLENOL 325 MG ORAL TABLET 617627 ACETAMINOPHEN Inactive ZOFRAN 4 MG ORAL TABLET 1 po q6hr PRN Nausea ZOFRAN 4 MG ORAL TABLET 502817 ONDANSETRON HCL Inactive ADULT ASPIRIN EC LOW STRENGTH 81 MG ORAL TABLET DELAYED RELEASE Take one by mouth daily ADULT ASPIRIN EC LOW STRENGTH 81 MG ORAL TABLET DELAYED RELEASE 318125 ASPIRIN Inactive FUROSEMIDE 40 MG ORAL TABLET Take one by mouth daily FUROSEMIDE 40 MG ORAL TABLET 819693 FUROSEMIDE Inactive BACTRIM DS 800-160 MG ORAL TABLET 1 twice a day BACTRIM DS 800-160 MG ORAL TABLET 235577 SULFAMETHOXAZOLE-TRIMETHOPRIM Inactive IPRATROPIUM-ALBUTEROL 0.5-2.5 (3) MG/3ML INHALATION SOLUTION 1 neb treatment QID for cough Dx: J06.9 IPRATROPIUM-ALBUTEROL 0.5-2.5 ( 3) MG/3ML INHALATION SOLUTION 7875230 IPRATROPIUM-ALBUTEROL Inactive TYLENOL 8 HOUR 650 MG [...] BID 06/28 BACTROBAN 2 % EXTERNAL OINTMENT 192512 MUPIROCIN Inactive LAMICTAL 25 MG ORAL TABLET 2 tabs by mouth twice a day LAMICTAL 25 MG ORAL TABLET 852004 LAMOTRIGINE Inactive NOVOLOG 100 UNIT/ML SUBCUTANEOUS SOLUTION 10 UNITS BEFORE SUPPER NOVOLOG 100 UNIT/ML SUBCUTANEOUS SOLUTION INSULIN ASPART Inactive NOVOLOG 100 UNIT/ML SUBCUTANEOUS SOLUTION 10 UNITS BID BEFORE BREAKFAST AND LUNCH NOVOLOG 100 UNIT/ML SUBCUTANEOUS SOLUTION INSULIN ASPART Inactive BANOPHEN 25 MG ORAL TABLET 1 po every 6 hours PRN allergic reaction BANOPHEN 25 MG ORAL TABLET 3284125 DIPHENHYDRAMINE HCL Inactive IPRATROPIUM-ALBUTEROL 0.5-2.5 (3) MG/3ML INHALATION SOLUTION 1 neb treatment four times daily, for cough IPRATROPIUM-ALBUTEROL 0.5- 2.5 (3) MG/3ML INHALATION SOLUTION 4464291 IPRATROPIUM-ALBUTEROL Inactive BACTRIM DS 800-160 MG ORAL TABLET 1 tab by mouth twice daily 2016 BACTRIM DS 800-160 MG ORAL TABLET 156423 TRIMETHOPRIM- SULFAMETHOXAZOLE Inactive Advance Directives Directive Description Start Date DURABLE POWER OF SOCIAL SERVICES COORDINATOR FOR HEALTHCARE PERMISSION TO SHARE [...] Panel - Chemistry sodium, serum 127 mmol/L 451-768 6555/07/28 potassium, serum 5.3 mmol/L 3.5-5.2 chloride, serum 92 mmol/L 98-107 carbon dioxide, venous blood 32.4 mmol/L 21.0-32.0 blood glucose 182 mg/dL 65-110 calcium, serum 9.4 mg/dL 8.5-10.1 urea nitrogen, blood 14 mg/dL 7-18 creatinine, serum 0.94 mg/dL 0.60-1.30 Lab Report: CBC, Comp. Metabolic Panel - Chemistry sodium, serum 129 mmol/L 653-557 9138/07/12 carbon dioxide, venous blood 27.8 mmol/L 21.0-32.0 [...] HGBA1C - Chemistry sodium, serum 123 mmol/L 810-705 8504/04/25 carbon dioxide, venous blood 26.2 mmol/L 21.0-32.0 [...] mg/dL Encounters Code Encounter Date Provider Facility CPT-02236 Level 4 Est. Patient 18:11:18 CDT Pelon Quach MD [facility] CPT-85507 Level 4 Est. Patient 14:46:38 CDT Pelon Quach MD [facility] CPT-00569 Level 4 Est. Patient 08:43:11 CDT Pelon Quach MD [facility] CPT-58247 Level 4 Est. Patient 14:27:30 CDT Pelon Quach MD [facility]-72129 Level 3 Est. Patient 10:32:17 CDT Jaycee Torrez [facility] CPT-17170 Level 3 Est. Patient 10:15:07 CDT Pelon Quach MD [facility]-04544 Level 4 Est. Patient 09:30:54 CDT Pelon Quach MD [facility] CPT-23666 Level 4 Est. Patient 14:34:25 CDT Pelon Quach MD [facility]-09583 Level 3 Est. Patient 11:51:35 DE ICER Rick Henson DO [facility] CPT-06659 Level 3 Est. Patient 12:13:33 DE ICER Erik Baptiste MD [facility]-41045 Level 3 Est. Patient 09:40:44 DE ICER Jaycee Torrez [facility] CPT-31042 Level 3 Est. Patient 09:36:32 DE ICER Jaycee Torrez [facility] CPT-57744 Level 4 Est. Patient 16:57:02 DE ICER Pelon Quach MD [facility] CPT-54865 Level 4 Est. Patient 22:19:34 CDT Pelon Quach MD [facility] CPT-26982 Level 3 Est. Patient 00:34:41 CDT Pelon Quach MD [facility] CPT-55389 Level 4 Est. Patient 11:19:14 CDT Pelon Quach MD [facility] CPT-93096 Level 4 Est. Patient 16:43:30 DE ICER Pelon Quach MD [facility] CPT-28600 Level 4 Est. Patient 12:42:18 CDT Pelon Quach MD [facility] CPT-15832 Level 4 Est. Patient 11:52:20 CDT Pelon Quach MD [facility] CPT-85661 Level 4 Est. Patient 13:59:46 CDT Pelon Quach MD [facility] CPT-34175 Level 4 Est. Patient 15:10:48 CDT Pelon Quach MD [facility] CPT-94251 Level 4 Est. Patient 17:13:06 CDT Pelon Quach MD [facility] CPT-95287 Level 4 Est. Patient 18:47:47 CDT Pelon Quach MD [facility] CPT-89155 Level 3 Est. Patient 21:01:27 CDT Pelon Quach MD [facility] CPT-64199 Level 3 Est. Patient 14:07:03 CDT Taty Alvarado MD PhD [facility] CPT-08510 Level 3 New Patient 21:39:52 DE ICER Pelon Quach MD [facility] CPT-15690 Level 3 Est. Patient 14:28:44 CDT Glenn Thornton MD [facility] CPT-60521 Level 3 Est. Patient 16:35:00 CDT Glenn Thornton MD [facility] CPT-61406 Level 4 New Patient 17:06:27 CDT Glenn Thornton MD [facility] [place] Procedures Code Procedure Name Date Entry Date Standard Description CPT-G0439 Subsequent Annual Wellness Exam 18:11:17 CDT CPT-G0438 Initial Annual Wellness Exam 09:30:54 CDT CPT-04682 Prevnar 13 Intramuscular Suspension 14:34:25 CDT 12/27 CPT-08329 Chest 2V Frontal and Lat - XRAY USE ONLY 11:56:13 DE ICER CPT-57238 Cystoscopy 14:28:44 CDT CPT-27995 Bladder Scan 14:28:44 CDT CPT-34348 Indwelling Cath Change 17:06:27 CDT CPT-25672 Cystoscopy 17:06:27 CDT
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
--- OUTSIDE RECORDS SUMMARY | 2018-06-22 12:40 | XMS REPORT | Clinical Summary ---
Author Author Admin, ONESIMO Organization [facility] [place] Address Unknown Phone Unavailable Allergies, Adverse Reactions, Alerts Allergy Name Reaction Description Start Date Severity Status Provider SULFA rash Critical Active Pelon Quach MD BACTROBAN Moderate Active Peoln Quach MD Conditions or Problems Problem Name [...] 1 po q8hr PRN Congestion DIPHENHYDRAMINE HCL 09729013805 Active Pelon Quach MD Active ZOFRAN 4 MG ORAL TABLET 1 po q6hr PRN Nausea ONDANSETRON HCL 17814963617 Active Pelon Quach MD Active IMODIUM A-D 2 MG ORAL TABLET One QID prn diarrhea. No more than 4 tabs daily LOPERAMIDE HCL 46547862570 Active Pelon Quach MD Active TYLENOL 325 MG ORAL TABLET 2 tabs po prn for pain elevated temp ACETAMINOPHEN 98327059683 Active Pelon Quach MD Active MUCINEX D 60-600 MG ORAL TABLET EXTENDED RELEASE 12 HOUR 1 po BID PRN Congestion PSEUDOEPHEDRINE-GUAIFENESIN 09468730351 Active Pelon Quach MD Active IBUPROFEN 200 MG ORAL TABLET q 6hrs prn pain IBUPROFEN 03716780001 Active Pelon Quach MD Active LORATADINE 10 MG ORAL TABLET 1 tablet by mouth daily prn LORATADINE 35411870958 Active Pelon Quach MD Active BANOPHEN 25 MG ORAL TABLET 1 po every 6 hours PRN allergic reaction DIPHENHYDRAMINE HCL 60455141349 No Longer Active Pelon Quach MD Active EASY TOUCH ALCOHOL PREP MEDIUM 70 % PAD Use with each finger stick and insulin admin Dx: E11.9 ALCOHOL SWABS 11469968958 Active Jaycee Torrez APRN Active HUMALOG KWIKPEN 100 UNIT/ML SUBCUTANEOUS SOLUTION PEN-INJECTOR inject 10 units subcutaneously before meals also sliding scale INSULIN LISPRO 00885782293 Active Pelon Quach MD Active NOVOLOG 100 UNIT/ML SUBCUTANEOUS SOLUTION 10 UNITS BID BEFORE BREAKFAST AND LUNCH INSULIN ASPART 49897219552 No Longer Active NICOLETTE Hitchcock Active NOVOLOG 100 UNIT/ML SUBCUTANEOUS SOLUTION 10 UNITS BEFORE SUPPER INSULIN ASPART 26910950771 No Longer Active NICOLETTE Hitchcock Active INVEGA 6 MG ORAL TABLET EXTENDED RELEASE 24 HOUR 1 po daily for schizophrenia PALIPERIDONE 90888845691 Active Pelon Quach MD Active LAMICTAL 25 MG ORAL TABLET 2 tabs by mouth twice a day LAMOTRIGINE 09569267880 No Longer Active Pelon Quach MD Active BACTROBAN 2 % EXTERNAL OINTMENT Apply to affected area BID 06/28 MUPIROCIN 84692428102 No Longer Active Pelon Quach MD Active INVEGA 6 MG ORAL TABLET EXTENDED RELEASE 24 HOUR 1 po daily for Schizophrenia PALIPERIDONE 67847882643 No Longer Active Pelon Quach MD Active TYLENOL 8 HOUR 650 MG ORAL TABLET EXTENDED RELEASE Take 1 tab po up to 3 times daily as needed ACETAMINOPHEN 91206222554 No Longer Active Pelon Quach MD Active IPRATROPIUM-ALBUTEROL 0.5-2.5 (3) MG/3ML INHALATION SOLUTION 1 neb treatment QID for cough Dx: J06.9 IPRATROPIUM-ALBUTEROL 20409741811 No Longer Active Pelon Quach MD Active BACTRIM DS 800-160 MG ORAL TABLET 1 tab by mouth twice daily 2017 /06/10 TRIMETHOPRIM-SULFAMETHOXAZOLE 88059236332 No Longer Active Pelon Quach MD Active BACTRIM DS 800-160 MG ORAL TABLET 1 twice a day SULFAMETHOXAZOLE-TRIMETHOPRIM 70024404924 No Longer Active Pelon Quach MD Active IPRATROPIUM-ALBUTEROL 0.5-2.5 (3) MG/3ML INHALATION SOLUTION 1 neb treatment four times daily, for cough IPRATROPIUM-ALBUTEROL 99588099416 No Longer Active Jaycee Torrez APRN Active FUROSEMIDE 40 MG ORAL TABLET Take one by mouth daily FUROSEMIDE 77593233719 No Longer Active Jaycee Arenando MOJICAN Active LANTUS 100 UNIT/ML SUBCUTANEOUS SOLUTION 20 SUBQ AT HS INSULIN GLARGINE 24057574142 Active Pelon Quach MD Active LAMICTAL 25 MG ORAL TABLET 2 tabs po BID for convulsions LAMOTRIGINE 61248784908 Active Jaycee Arenando MOJICAN Active LASIX 20 MG ORAL TABLET 1 tablet by mouth every morning for edema FUROSEMIDE 62564700378 Active Jaycee Arenando MOJICAN Active BUSPIRONE HCL 10 MG ORAL TABLET 1 tab by mouth BID BUSPIRONE HCL 99797165354 Active Jaycee Arenando MOJICAN Active ADULT ASPIRIN EC LOW STRENGTH 81 MG ORAL TABLET DELAYED RELEASE Take one by mouth daily ASPIRIN 66975051662 No Longer Active Pelon Quach MD Active ASPIRIN 81 MG ORAL TABLET 1 po qd ASPIRIN 66898463417 Active Pelon Quach MD Active ZOFRAN 4 MG ORAL TABLET 1 po q6hr PRN Nausea ONDANSETRON HCL 51654245927 No Longer Active Pelon Quach MD Active TYLENOL 325 MG ORAL TABLET 1-2 pills by mouth every 6 hours if needed for pain /fever ACETAMINOPHEN 29319996743 No Longer Active Pelon Quach MD Active INVEGA 6 MG ORAL TABLET EXTENDED RELEASE 24 HOUR 1 TAB ONCE DAILY PALIPERIDONE 43078210523 No Longer Active Carly Suggs Active TEGRETOL 200 MG ORAL TABLET by mouth twice a day CARBAMAZEPINE 58044802278 Active Taty Alvarado MD PhD Active FLOMAX 0.4 MG ORAL CAPSULE 1 Daily TAMSULOSIN HCL 45104043472 Active Marianela Juarez Active DILANTIN 100 MG ORAL CAPSULE Take one by mouth daily PHENYTOIN SODIUM EXTENDED 15110628732 No Longer Active Marianela Juarez Active DEPAKOTE SPRINKLES 125 MG ORAL CAPSULE DELAYED RELEASE SPRINKLE 4 capsules by mouth twice daily DIVALPROEX SODIUM 22933647443 No Longer Active Marianela Juarez Active LAMICTAL 200 MG ORAL TABLET 1 BY MOUTH TWICE A DAY LAMOTRIGINE 33123292220 Active Marianela Juarez Active LAMICTAL 100 MG ORAL TABLET by mouth twice a day LAMOTRIGINE 69966858530 No Longer Active Marianelachandrika Juarez Active LAMICTAL 150 MG ORAL TABLET by mouth twice a day LAMOTRIGINE 38632727285 No Longer Active Marianela Juarez Active DILANTIN 100 MG ORAL CAPSULE Take three by mouth daily PHENYTOIN SODIUM EXTENDED 97609921763 No Longer Active Marianela Juarez Active SENOKOT 8.6 MG ORAL TABLET take at bedtime SENNOSIDES 07480163330 Active Pelon Quach MD Active LIPITOR 20 MG ORAL TABLET take at bedtime ATORVASTATIN CALCIUM 84391365195 Active Glenn Thornton MD Active LISINOPRIL 2.5 MG ORAL TABLET Take one by mouth daily LISINOPRIL 69001389113 Active Glenn Thornton MD Active TRENTAL 400 MG CR-TABS by mouth twice a day PENTOXIFYLLINE 84424091235 Active Glenn Thornton MD Active KLOR-CON 10 10 MEQ ORAL TABLET EXTENDED RELEASE Take one by mouth daily POTASSIUM CHLORIDE 66698149081 Active Glenn Thornton MD Active DILANTIN 100 MG ORAL CAPSULE Take three by mouth daily DILANTIN 100 MG ORAL CAPSULE 624754 PHENYTOIN SODIUM EXTENDED Inactive LAMICTAL 150 MG ORAL TABLET by mouth twice a day LAMICTAL 150 MG ORAL TABLET 210583 LAMOTRIGINE Inactive LAMICTAL 100 MG ORAL TABLET by mouth twice a day LAMICTAL 100 MG ORAL TABLET 614495 LAMOTRIGINE Inactive DEPAKOTE SPRINKLES 125 MG ORAL CAPSULE DELAYED RELEASE SPRINKLE 4 capsules by mouth twice daily DEPAKOTE SPRINKLES 125 MG ORAL CAPSULE DELAYED RELEASE SPRINKLE 3735748 DIVALPROEX SODIUM Inactive DILANTIN 100 MG ORAL CAPSULE Take one by mouth daily DILANTIN 100 MG ORAL CAPSULE 803341 PHENYTOIN SODIUM EXTENDED Inactive INVEGA 6 MG ORAL TABLET EXTENDED RELEASE 24 HOUR 1 TAB ONCE DAILY INVEGA 6 MG ORAL TABLET EXTENDED RELEASE 24 HOUR PALIPERIDONE Inactive TYLENOL 325 MG ORAL TABLET 1-2 pills by mouth every 6 hours if needed for pain /fever TYLENOL 325 MG ORAL TABLET 348406 ACETAMINOPHEN Inactive ZOFRAN 4 MG ORAL TABLET 1 po q6hr PRN Nausea ZOFRAN 4 MG ORAL TABLET 451688 ONDANSETRON HCL Inactive ADULT ASPIRIN EC LOW STRENGTH 81 MG ORAL TABLET DELAYED RELEASE Take one by mouth daily ADULT ASPIRIN EC LOW STRENGTH 81 MG ORAL TABLET DELAYED RELEASE 540363 ASPIRIN Inactive FUROSEMIDE 40 MG ORAL TABLET Take one by mouth daily FUROSEMIDE 40 MG ORAL TABLET 863286 FUROSEMIDE Inactive BACTRIM DS 800-160 MG ORAL TABLET 1 twice a day BACTRIM DS 800-160 MG ORAL TABLET 411933 SULFAMETHOXAZOLE-TRIMETHOPRIM Inactive IPRATROPIUM-ALBUTEROL 0.5-2.5 (3) MG/3ML INHALATION SOLUTION 1 neb treatment QID for cough Dx: J06.9 IPRATROPIUM-ALBUTEROL 0.5-2.5 ( 3) MG/3ML INHALATION SOLUTION 1209342 IPRATROPIUM-ALBUTEROL Inactive TYLENOL 8 HOUR 650 MG [...] BID 06/28 BACTROBAN 2 % EXTERNAL OINTMENT 928986 MUPIROCIN Inactive LAMICTAL 25 MG ORAL TABLET 2 tabs by mouth twice a day LAMICTAL 25 MG ORAL TABLET 062595 LAMOTRIGINE Inactive NOVOLOG 100 UNIT/ML SUBCUTANEOUS SOLUTION 10 UNITS BEFORE SUPPER NOVOLOG 100 UNIT/ML SUBCUTANEOUS SOLUTION INSULIN ASPART Inactive NOVOLOG 100 UNIT/ML SUBCUTANEOUS SOLUTION 10 UNITS BID BEFORE BREAKFAST AND LUNCH NOVOLOG 100 UNIT/ML SUBCUTANEOUS SOLUTION INSULIN ASPART Inactive BANOPHEN 25 MG ORAL TABLET 1 po every 6 hours PRN allergic reaction BANOPHEN 25 MG ORAL TABLET 3170515 DIPHENHYDRAMINE HCL Inactive IPRATROPIUM-ALBUTEROL 0.5-2.5 (3) MG/3ML INHALATION SOLUTION 1 neb treatment four times daily, for cough IPRATROPIUM-ALBUTEROL 0.5- 2.5 (3) MG/3ML INHALATION SOLUTION 5460760 IPRATROPIUM-ALBUTEROL Inactive BACTRIM DS 800-160 MG ORAL TABLET 1 tab by mouth twice daily 2016 BACTRIM DS 800-160 MG ORAL TABLET 441898 TRIMETHOPRIM- SULFAMETHOXAZOLE Inactive Advance Directives Directive Description Start Date DURABLE POWER OF GRAPHIC ARTIST FOR HEALTHCARE PERMISSION TO SHARE ADVANCED DIRECTIVE [...] Panel - Chemistry sodium, serum 127 mmol/L 047-413 0270/07/28 potassium, serum 5.3 mmol/L 3.5-5.2 chloride, serum 92 mmol/L 98-107 carbon dioxide, venous blood 32.4 mmol/L 21.0-32.0 blood glucose 182 mg/dL 65-110 calcium, serum 9.4 mg/dL 8.5-10.1 urea nitrogen, blood 14 mg/dL 7-18 creatinine, serum 0.94 mg/dL 0.60-1.30 Lab Report: CBC, Comp. Metabolic Panel - Chemistry sodium, serum 129 mmol/L 200-892 1300/07/12 carbon dioxide, venous blood 27.8 mmol/L 21.0-32.0 [...] HGBA1C - Chemistry sodium, serum 123 mmol/L 579-312 6390/04/25 carbon dioxide, venous blood 26.2 mmol/L 21.0-32.0 [...] mg/dL Encounters Code Encounter Date Provider Facility CPT-83558 Level 4 Est. Patient 18:11:18 CDT Pelon Quach MD [facility] CPT-17715 Level 4 Est. Patient 14:46:38 CDT Pelon Quach MD [facility] CPT-23507 Level 4 Est. Patient 08:43:11 CDT Pelon Quach MD [facility] CPT-54739 Level 4 Est. Patient 14:27:30 CDT Pelon Quach MD [facility]-66178 Level 3 Est. Patient 10:32:17 CDT Jaycee Torrez [facility] CPT-57078 Level 3 Est. Patient 10:15:07 CDT Pelon Quach MD [facility]-11459 Level 4 Est. Patient 09:30:54 CDT Pelon Quach MD [facility] CPT-24224 Level 4 Est. Patient 14:34:25 CDT Pelon Quach MD [facility]-41484 Level 3 Est. Patient 11:51:35 PHARMACOGNOSIST Rick Henson DO [facility] CPT-70187 Level 3 Est. Patient 12:13:33 PHARMACOGNOSIST Erik Baptiste MD [facility]-69348 Level 3 Est. Patient 09:40:44 PHARMACOGNOSIST Jaycee Torrez [facility] CPT-18200 Level 3 Est. Patient 09:36:32 PHARMACOGNOSIST Jaycee Torrez [facility] CPT-07726 Level 4 Est. Patient 16:57:02 PHARMACOGNOSIST Pelon Quach MD [facility] CPT-84676 Level 4 Est. Patient 22:19:34 CDT Pelon Quach MD [facility] CPT-65683 Level 3 Est. Patient 00:34:41 CDT Pelon Quach MD [facility] CPT-99458 Level 4 Est. Patient 11:19:14 CDT Pelon Quach MD [facility] CPT-36126 Level 4 Est. Patient 16:43:30 PHARMACOGNOSIST Pelon Quach MD [facility] CPT-37045 Level 4 Est. Patient 12:42:18 CDT Pelon Quach MD [facility] CPT-51651 Level 4 Est. Patient 11:52:20 CDT Pelon Quach MD [facility] CPT-60386 Level 4 Est. Patient 13:59:46 CDT Pelon Quach MD [facility] CPT-76527 Level 4 Est. Patient 15:10:48 CDT Pelon Quach MD [facility] CPT-96888 Level 4 Est. Patient 17:13:06 CDT Pelon Quach MD [facility] CPT-93792 Level 4 Est. Patient 18:47:47 CDT Pelon Quach MD [facility] CPT-30969 Level 3 Est. Patient 21:01:27 CDT Pelon Quach MD [facility] CPT-04422 Level 3 Est. Patient 14:07:03 CDT Taty Alvarado MD PhD [facility] CPT-01732 Level 3 New Patient 21:39:52 PHARMACOGNOSIST Pelon Quach MD [facility] CPT-83943 Level 3 Est. Patient 14:28:44 CDT Glenn Thornton MD [facility] CPT-50050 Level 3 Est. Patient 16:35:00 CDT Glenn Thornton MD [facility] CPT-57586 Level 4 New Patient 17:06:27 CDT Glenn Thornton MD [facility] [place] Procedures Code Procedure Name Date Entry Date Standard Description CPT-G0439 Subsequent Annual Wellness Exam 18:11:17 CDT CPT-G0438 Initial Annual Wellness Exam 09:30:54 CDT CPT-30449 Prevnar 13 Intramuscular Suspension 14:34:25 CDT 12/27 CPT-57204 Chest 2V Frontal and Lat - XRAY USE ONLY 11:56:13 PHARMACOGNOSIST CPT-06796 Cystoscopy 14:28:44 CDT CPT-35614 Bladder Scan 14:28:44 CDT CPT-87131 Indwelling Cath Change 17:06:27 CDT CPT-15668 Cystoscopy 17:06:27 CDT
--- OUTSIDE RECORDS SUMMARY | 2018-06-22 12:40 | XMS REPORT | Clinical Summary ---
Author Author Admin, ONESIMO Organization [facility] [employer] Address Unknown Phone Unavailable Allergies, Adverse Reactions, [...] TABS 1 twice a day SULFAMETHOXAZOLE- TRIMETHOPRIM 61497071007 Active Erik Baptiste MD Active IPRATROPIUM-ALBUTEROL 0.5-2.5 (3) MG/3ML INH SOLN 1 neb treatment QID for cough Dx: J06.9 IPRATROPIUM-ALBUTEROL 18055170949 Active Jaycee Garcia APRN Active IPRATROPIUM-ALBUTEROL 0.5-2.5 (3) MG/3ML SOLN 1 neb treatment four times daily , for cough IPRATROPIUM-ALBUTEROL 33525837459 No Longer Active Jaycee Garcia APRN Active TYLENOL 8 HOUR 650 MG ORAL CR-TABS Take 1 tab po up to 3 times daily as needed ACETAMINOPHEN 43179668434 Active Jaycee Jose VACUUM REPAIRER Active FUROSEMIDE 40 MG TABS Take one by mouth daily FUROSEMIDE 67293386439 No Longer Active Jaycee Garcia VICTORINO Active LANTUS 100 UNIT/ML SC SOLN 20 SUBQ AT HS INSULIN GLARGINE 90304355671 Active Jaycee Jose VACUUM REPAIRER Active LAMICTAL 25 MG ORAL TABS 2 tabs po BID for convulsions LAMOTRIGINE 54968175094 Active Jaycee Garcia VICTORINO Active INVEGA 6 MG ORAL [id number] 1 po daily for Schizophrenia PALIPERIDONE 04233246042 Active Jaycee Garcia VICTORINO Active LASIX 20 MG TAB 1 tablet by mouth every morning for edema FUROSEMIDE 77981506245 Active Jayceehugo Garcia APRN Active BUSPIRONE HCL 10 MG TABS 1 tab by mouth BID BUSPIRONE HCL 54959501116 Active Jaycee Garcia VICTORINO Active NOVOLOG 100 UNIT/ML SC SOLN 10 UNITS BEFORE SUPPER INSULIN ASPART 89951271686 Active Jaycee Garcia VICTORINO Active NOVOLOG 100 UNIT/ML SC SOLN 10 UNITS BID BEFORE BREAKFAST AND LUNCH INSULIN ASPART 81766410515 Active Jaycee Garcia VICTORINO Active LAMICTAL 25 MG TABS 2 tabs by mouth twice a day LAMOTRIGINE 47281263331 Active Pelon Quach MD Active ADULT ASPIRIN EC LOW STRENGTH 81 MG TBEC Take one by mouth daily ASPIRIN 84160674277 No Longer Active Pelon Quach MD Active ASPIRIN 81 MG ORAL TABS 1 po qd ASPIRIN 94110169077 Active Pelon Quahc MD Active ZOFRAN 4 MG TABS 1 po q6hr PRN Nausea ONDANSETRON HCL 27223936251 No Longer Active Pelon Quach MD Active TYLENOL 325 MG TAB 1-2 pills by mouth every 6 hours if needed for pain/fever ACETAMINOPHEN 31960259422 No Longer Active Pelon Quach MD Active INVEGA 6 MG ORAL [id number] 1 TAB ONCE DAILY PALIPERIDONE 61736343403 No Longer Active Carly Suggs Active TEGRETOL 200 MG TABS by mouth twice a day CARBAMAZEPINE 50534414349 Active Taty Alvarado MD PhD Active FLOMAX 0.4 MG CAPS 1 Daily TAMSULOSIN HCL 99640786610 Active Marianelachandrika Juarez Active DILANTIN 100 MG CAPS Take one by mouth daily PHENYTOIN SODIUM EXTENDED 79094362297 No Longer Active Marianelachandrika Juarez Active DEPAKOTE SPRINKLES 125 MG CPSP 4 capsules by mouth twice daily DIVALPROEX SODIUM 58118679407 No Longer Active Marianelachandrika Juarez Active LAMICTAL 200 MG ORAL TABS 1 BY MOUTH TWICE A DAY LAMOTRIGINE 34948977419 Active Marianelachandrika Juarez Active LAMICTAL 100 MG TABS by mouth twice a day LAMOTRIGINE 77268536565 No Longer Active Marianelachandrika Juarez Active LAMICTAL 150 MG TABS by mouth twice a day LAMOTRIGINE 58938766146 No Longer Active Marianelachandrika Juarez Active DILANTIN 100 MG CAPS Take three by mouth daily PHENYTOIN SODIUM EXTENDED 94813148607 No Longer Active Marianela Juarez Active SENOKOT 8.6 MG TABS take at bedtime SENNOSIDES 07852736824 Active Glenn Thornton MD Active LIPITOR 20 MG TABS take at bedtime ATORVASTATIN CALCIUM 56805555519 Active Glenn Thornton MD Active LISINOPRIL 2.5 MG TABS Take one by mouth daily LISINOPRIL 26452237137 Active Glenn Thornton MD Active TRENTAL 400 MG CR-TABS by mouth twice a day PENTOXIFYLLINE 86282332873 Active Glenn Thornton MD Active KLOR-CON 10 10 MEQ CR-TABS Take one by mouth daily POTASSIUM CHLORIDE 35651950141 Active Glenn Thornton MD Active DILANTIN 100 MG CAPS Take three by mouth daily DILANTIN 100 MG CAPS 553861 PHENYTOIN SODIUM EXTENDED Inactive LAMICTAL 150 MG TABS by mouth twice a day LAMICTAL 150 MG TABS 19831025 LAMOTRIGINE Inactive LAMICTAL 100 MG TABS by mouth twice a day LAMICTAL 100 MG TABS 19831024 LAMOTRIGINE Inactive DEPAKOTE SPRINKLES 125 MG CPSP 4 capsules by mouth twice daily DEPAKOTE SPRINKLES 125 MG CPSP 0445645 DIVALPROEX SODIUM Inactive DILANTIN 100 MG CAPS Take one by mouth daily DILANTIN 100 MG CAPS 719407 PHENYTOIN SODIUM EXTENDED Inactive INVEGA 6 MG ORAL [id number] 1 TAB ONCE DAILY INVEGA 6 MG ORAL [id number] PALIPERIDONE Inactive TYLENOL 325 MG TAB 1-2 pills by mouth every 6 hours if needed for pain/fever TYLENOL 325 MG TAB 868249 ACETAMINOPHEN Inactive ZOFRAN 4 MG TABS 1 po q6hr PRN Nausea ZOFRAN 4 MG TABS 467441 ONDANSETRON HCL Inactive ADULT ASPIRIN EC LOW STRENGTH 81 MG TBEC Take one by mouth daily ADULT ASPIRIN EC LOW STRENGTH 81 MG TBEC 713226 ASPIRIN Inactive FUROSEMIDE 40 MG TABS Take one by mouth daily FUROSEMIDE 40 MG TABS 514294 FUROSEMIDE Inactive IPRATROPIUM-ALBUTEROL 0.5-2.5 (3) MG/3ML SOLN 1 neb treatment four times daily , for cough IPRATROPIUM-ALBUTEROL 0.5-2.5 (3) MG/3ML SOLN 8671747 IPRATROPIUM-ALBUTEROL Inactive Advance Directives Directive Description Start Date DURABLE POWER OF LOGISTICS SOLUTION MANAGER FOR HEALTHCARE PERMISSION TO SHARE ADVANCED [...] mg/dL Encounters Code Encounter Date Provider Facility CPT-11361 Level 3 Est. Patient 11:51:35 PSYCHOLOGY FELLOW Rick Henson DO [facility] CPT-10460 Level 3 Est. Patient 12:13:33 PSYCHOLOGY FELLOW Erik Baptiste MD [facility] CPT-32498 Level 3 Est. Patient 09:40:44 PSYCHOLOGY FELLOW Jaycee Garcia [facility] CPT-96538 Level 3 Est. Patient 09:36:32 PSYCHOLOGY FELLOW Jaycee Garcia [facility] CPT-64916 Level 4 Est. Patient 16:57:02 PSYCHOLOGY FELLOW Pelon Quach MD [facility] CPT-48928 Level 4 Est. Patient 22:19:34 CDT Pelon Quach MD [facility] CPT-35186 Level 3 Est. Patient 00:34:41 CDT Pelon Quach MD [facility] CPT-97430 Level 4 Est. Patient 11:19:14 CDT Pelon Quach MD [facility] CPT-19306 Level 4 Est. Patient 16:43:30 PSYCHOLOGY FELLOW Pelon Quach MD [facility] CPT-76325 Level 4 Est. Patient 12:42:18 CDT Pelon Quach MD [facility] CPT-65104 Level 4 Est. Patient 11:52:20 CDT Pelon Quach MD [facility] CPT-48044 Level 4 Est. Patient 13:59:46 CDT Pelon Quach MD [facility] CPT-25229 Level 4 Est. Patient 15:10:48 CDT Pelon Quach MD [facility] CPT-34042 Level 4 Est. Patient 17:13:06 CDT Pelon Quach MD [facility] CPT-52269 Level 4 Est. Patient 18:47:47 CDT Pelon Quach MD [facility] CPT-60787 Level 3 Est. Patient 21:01:27 CDT Pelon Quach MD [facility] CPT-51286 Level 3 Est. Patient 14:07:03 CDT Taty Alvarado MD PhD [facility] CPT-42270 Level 3 New Patient 21:39:52 PSYCHOLOGY FELLOW Pelon Quach MD [facility] CPT-60219 Level 3 Est. Patient 14:28:44 CDT Glenn Thornton MD [facility] CPT-31390 Level 3 Est. Patient 16:35:00 CDT Glenn Thornton MD [facility] CPT-49753 Level 4 New Patient 17:06:27 CDT Glenn Thornton MD [facility] Procedures Code Procedure Name Date Entry Date Standard Description CPT-85985 Chest 2V Frontal and Lat - XRAY USE ONLY 11:56:13 PSYCHOLOGY FELLOW CPT-30350 Cystoscopy 14:28:44 CDT CPT-45911 Bladder Scan 14:28:44 CDT CPT-39204 Indwelling Cath Change 17:06:27 CDT CPT-67846 Cystoscopy 17:06:27 CDT
--- OUTSIDE RECORDS SUMMARY | 2018-06-22 12:41 | XMS REPORT | Clinical Summary ---
Author Author Admin, ONESIMO Organization [facility] [email or web address] Address Unknown Phone Unavailable Allergies, Adverse Reactions, [...] TABS 1 twice a day SULFAMETHOXAZOLE- TRIMETHOPRIM 37910025681 Active Erik Baptiste MD Active IPRATROPIUM-ALBUTEROL 0.5-2.5 (3) MG/3ML INH SOLN 1 neb treatment QID for cough Dx: J06.9 IPRATROPIUM-ALBUTEROL 52397856289 Active Jaycee Garcia APRN Active IPRATROPIUM-ALBUTEROL 0.5-2.5 (3) MG/3ML SOLN 1 neb treatment four times daily , for cough IPRATROPIUM-ALBUTEROL 75664173998 No Longer Active Jaycee Garcia APRN Active TYLENOL 8 HOUR 650 MG ORAL CR-TABS Take 1 tab po up to 3 times daily as needed ACETAMINOPHEN 78962945082 Active Jaycee Jose CABLE TESTER Active FUROSEMIDE 40 MG TABS Take one by mouth daily FUROSEMIDE 92293036845 No Longer Active Jaycee Garcia VICTORINO Active LANTUS 100 UNIT/ML SC SOLN 20 SUBQ AT HS INSULIN GLARGINE 71091975741 Active Jaycee Jose CABLE TESTER Active LAMICTAL 25 MG ORAL TABS 2 tabs po BID for convulsions LAMOTRIGINE 88071873527 Active Jaycee Garcia VICTORINO Active INVEGA 6 MG ORAL [id number] 1 po daily for Schizophrenia PALIPERIDONE 04473714309 Active Jaycee Garcia VICTORINO Active LASIX 20 MG TAB 1 tablet by mouth every morning for edema FUROSEMIDE 70599848514 Active Jayceehugo Garcia APRN Active BUSPIRONE HCL 10 MG TABS 1 tab by mouth BID BUSPIRONE HCL 29963112286 Active Jaycee Garcia VICTORINO Active NOVOLOG 100 UNIT/ML SC SOLN 10 UNITS BEFORE SUPPER INSULIN ASPART 98341613373 Active Jaycee Garcia VICTORINO Active NOVOLOG 100 UNIT/ML SC SOLN 10 UNITS BID BEFORE BREAKFAST AND LUNCH INSULIN ASPART 68895823998 Active Jaycee Garcia VICTORINO Active LAMICTAL 25 MG TABS 2 tabs by mouth twice a day LAMOTRIGINE 16726942437 Active Pelon Quach MD Active ADULT ASPIRIN EC LOW STRENGTH 81 MG TBEC Take one by mouth daily ASPIRIN 63865679893 No Longer Active Pelon Quach MD Active ASPIRIN 81 MG ORAL TABS 1 po qd ASPIRIN 72265490888 Active Pelon Quach MD Active ZOFRAN 4 MG TABS 1 po q6hr PRN Nausea ONDANSETRON HCL 85921840488 No Longer Active Pelon Quach MD Active TYLENOL 325 MG TAB 1-2 pills by mouth every 6 hours if needed for pain/fever ACETAMINOPHEN 18267021698 No Longer Active Pelon Quach MD Active INVEGA 6 MG ORAL [id number] 1 TAB ONCE DAILY PALIPERIDONE 53679072901 No Longer Active Carly Suggs Active TEGRETOL 200 MG TABS by mouth twice a day CARBAMAZEPINE 16038295210 Active Taty Alvarado MD PhD Active FLOMAX 0.4 MG CAPS 1 Daily TAMSULOSIN HCL 32637630647 Active Marianelachandrika Juarez Active DILANTIN 100 MG CAPS Take one by mouth daily PHENYTOIN SODIUM EXTENDED 49466629346 No Longer Active Marianelachandrika Juarez Active DEPAKOTE SPRINKLES 125 MG CPSP 4 capsules by mouth twice daily DIVALPROEX SODIUM 14651810943 No Longer Active Marianelachandrika Juarez Active LAMICTAL 200 MG ORAL TABS 1 BY MOUTH TWICE A DAY LAMOTRIGINE 91890725466 Active Marianelachandrika Juarez Active LAMICTAL 100 MG TABS by mouth twice a day LAMOTRIGINE 03395832262 No Longer Active Marianelachandrika Juarez Active LAMICTAL 150 MG TABS by mouth twice a day LAMOTRIGINE 01582668405 No Longer Active Marianelachandrika Juarez Active DILANTIN 100 MG CAPS Take three by mouth daily PHENYTOIN SODIUM EXTENDED 80239157658 No Longer Active Marianela Juarez Active SENOKOT 8.6 MG TABS take at bedtime SENNOSIDES 05804081159 Active Glenn Thornton MD Active LIPITOR 20 MG TABS take at bedtime ATORVASTATIN CALCIUM 84475862450 Active Glenn Thornton MD Active LISINOPRIL 2.5 MG TABS Take one by mouth daily LISINOPRIL 98616100838 Active Glenn Thornton MD Active TRENTAL 400 MG CR-TABS by mouth twice a day PENTOXIFYLLINE 48820927880 Active Glenn Thornton MD Active KLOR-CON 10 10 MEQ CR-TABS Take one by mouth daily POTASSIUM CHLORIDE 87342612817 Active Glenn Thornton MD Active DILANTIN 100 MG CAPS Take three by mouth daily DILANTIN 100 MG CAPS 323336 PHENYTOIN SODIUM EXTENDED Inactive LAMICTAL 150 MG TABS by mouth twice a day LAMICTAL 150 MG TABS 19831025 LAMOTRIGINE Inactive LAMICTAL 100 MG TABS by mouth twice a day LAMICTAL 100 MG TABS 19831024 LAMOTRIGINE Inactive DEPAKOTE SPRINKLES 125 MG CPSP 4 capsules by mouth twice daily DEPAKOTE SPRINKLES 125 MG CPSP 1571762 DIVALPROEX SODIUM Inactive DILANTIN 100 MG CAPS Take one by mouth daily DILANTIN 100 MG CAPS 757685 PHENYTOIN SODIUM EXTENDED Inactive INVEGA 6 MG ORAL [id number] 1 TAB ONCE DAILY INVEGA 6 MG ORAL [id number] PALIPERIDONE Inactive TYLENOL 325 MG TAB 1-2 pills by mouth every 6 hours if needed for pain/fever TYLENOL 325 MG TAB 028917 ACETAMINOPHEN Inactive ZOFRAN 4 MG TABS 1 po q6hr PRN Nausea ZOFRAN 4 MG TABS 630647 ONDANSETRON HCL Inactive ADULT ASPIRIN EC LOW STRENGTH 81 MG TBEC Take one by mouth daily ADULT ASPIRIN EC LOW STRENGTH 81 MG TBEC 736495 ASPIRIN Inactive FUROSEMIDE 40 MG TABS Take one by mouth daily FUROSEMIDE 40 MG TABS 900810 FUROSEMIDE Inactive IPRATROPIUM-ALBUTEROL 0.5-2.5 (3) MG/3ML SOLN 1 neb treatment four times daily , for cough IPRATROPIUM-ALBUTEROL 0.5-2.5 (3) MG/3ML SOLN 7415607 IPRATROPIUM-ALBUTEROL Inactive Advance Directives Directive Description Start Date DURABLE POWER OF DIRECTOR EMERGENCY FOR HEALTHCARE PERMISSION TO SHARE ADVANCED DIRECTIVE [...] mg/dL Encounters Code Encounter Date Provider Facility CPT-52180 Level 3 Est. Patient 11:51:35 [employer] Rick Henson DO [facility] CPT-47199 Level 3 Est. Patient 12:13:33 [employer] Erik Baptiste MD [facility] CPT-86167 Level 3 Est. Patient 09:40:44 [employer] Jaycee Garcia [facility] CPT-92238 Level 3 Est. Patient 09:36:32 [employer] Jaycee Garcia [facility] CPT-23655 Level 4 Est. Patient 16:57:02 [employer] Pelon Quach MD [facility] CPT-87582 Level 4 Est. Patient 22:19:34 CDT Pelon Quach MD [facility] CPT-73594 Level 3 Est. Patient 00:34:41 CDT Pelon Quach MD [facility] CPT-73692 Level 4 Est. Patient 11:19:14 CDT Pelon Quach MD [facility] CPT-01018 Level 4 Est. Patient 16:43:30 [employer] Pelon Quach MD [facility] CPT-16702 Level 4 Est. Patient 12:42:18 CDT Pelon Quach MD [facility] CPT-50875 Level 4 Est. Patient 11:52:20 CDT Pelon Quach MD [facility] CPT-83466 Level 4 Est. Patient 13:59:46 CDT Pelon Quach MD [facility] CPT-12493 Level 4 Est. Patient 15:10:48 CDT Pelon Quach MD [facility] CPT-24153 Level 4 Est. Patient 17:13:06 CDT Pelon Quach MD [facility] CPT-09890 Level 4 Est. Patient 18:47:47 CDT Pelon Quach MD [facility] CPT-45189 Level 3 Est. Patient 21:01:27 CDT Pelon Quach MD [facility] CPT-55386 Level 3 Est. Patient 14:07:03 CDT Taty Alvarado MD PhD [facility] CPT-66646 Level 3 New Patient 21:39:52 [employer] Pelon Quach MD [facility] CPT-71751 Level 3 Est. Patient 14:28:44 CDT Glenn Thornton MD [facility] CPT-33430 Level 3 Est. Patient 16:35:00 CDT Glenn Thornton MD [facility] CPT-89240 Level 4 New Patient 17:06:27 CDT Glenn Thornton MD [facility] Procedures Code Procedure Name Date Entry Date Standard Description CPT-85664 Chest 2V Frontal and Lat - XRAY USE ONLY 11:56:13 [employer] CPT-73377 Cystoscopy 14:28:44 CDT CPT-31376 Bladder Scan 14:28:44 CDT CPT-25113 Indwelling Cath Change 17:06:27 CDT CPT-52828 Cystoscopy 17:06:27 CDT
--- OUTSIDE RECORDS SUMMARY | 2018-06-22 12:42 | XMS REPORT | Clinical Summary ---
Author Author Admin, ONESIMO Organization [facility] [employer] [place] Address Unknown Phone Unavailable Allergies, Adverse Reactions, [...] as needed for muscle spasm/pain CYCLOBENZAPRINE HCL 98354325245 Active Pelon Quach MD Active BENADRYL 25 MG ORAL CAPSULE 1 po q8hr PRN Congestion DIPHENHYDRAMINE HCL 03188318655 Active Pelon Quach MD Active ZOFRAN 4 MG ORAL TABLET 1 po q6hr PRN Nausea ONDANSETRON HCL 06635167450 Active Pelon Quach MD Active IMODIUM A-D 2 MG ORAL TABLET One QID prn diarrhea. No more than 4 tabs daily LOPERAMIDE HCL 95297270935 Active Pelon Quach MD Active TYLENOL 325 MG ORAL TABLET 2 tabs po prn for pain elevated temp ACETAMINOPHEN 31579584060 Active Pelon Quach MD Active MUCINEX D 60-600 MG ORAL TABLET EXTENDED RELEASE 12 HOUR 1 po BID PRN Congestion PSEUDOEPHEDRINE-GUAIFENESIN 52092294510 Active Pelon Quach MD Active IBUPROFEN 200 MG ORAL TABLET q 6hrs prn pain IBUPROFEN 17532208808 Active Pelon Quach MD Active LORATADINE 10 MG ORAL TABLET 1 tablet by mouth daily prn LORATADINE 95051143851 Active Pelon Quach MD Active BANOPHEN 25 MG ORAL TABLET 1 po every 6 hours PRN allergic reaction DIPHENHYDRAMINE HCL 54703139226 No Longer Active Pelon Quach MD Active EASY TOUCH ALCOHOL PREP MEDIUM 70 % PAD Use with each finger stick and insulin admin Dx: E11.9 ALCOHOL SWABS 72932633191 Active Jaycee Torrez APRN Active HUMALOG KWIKPEN 100 UNIT/ML SUBCUTANEOUS SOLUTION PEN-INJECTOR inject 10 units subcutaneously before meals also sliding scale INSULIN LISPRO 77026383343 Active Pelon Quach MD Active NOVOLOG 100 UNIT/ML SUBCUTANEOUS SOLUTION 10 UNITS BID BEFORE BREAKFAST AND LUNCH INSULIN ASPART 77661605356 No Longer Active NICOLETTE Hitchcock Active NOVOLOG 100 UNIT/ML SUBCUTANEOUS SOLUTION 10 UNITS BEFORE SUPPER INSULIN ASPART 93820940040 No Longer Active NICOLETTE Hitchcock Active INVEGA 6 MG ORAL TABLET EXTENDED RELEASE 24 HOUR 1 po daily for schizophrenia PALIPERIDONE 94765887391 Active Pelon Quach MD Active LAMICTAL 25 MG ORAL TABLET 2 tabs by mouth twice a day LAMOTRIGINE 72625621973 No Longer Active Pelon Quach MD Active BACTROBAN 2 % EXTERNAL OINTMENT Apply to affected area BID 06/28 MUPIROCIN 98239946355 No Longer Active Pelon Quach MD Active INVEGA 6 MG ORAL TABLET EXTENDED RELEASE 24 HOUR 1 po daily for Schizophrenia PALIPERIDONE 21053607155 No Longer Active Pelon Quach MD Active TYLENOL 8 HOUR 650 MG ORAL TABLET EXTENDED RELEASE Take 1 tab po up to 3 times daily as needed ACETAMINOPHEN 78309699898 No Longer Active Pelon Quach MD Active IPRATROPIUM-ALBUTEROL 0.5-2.5 (3) MG/3ML INHALATION SOLUTION 1 neb treatment QID for cough Dx: J06.9 IPRATROPIUM-ALBUTEROL 72072716072 No Longer Active Pelon Quach MD Active BACTRIM DS 800-160 MG ORAL TABLET 1 tab by mouth twice daily 2016 TRIMETHOPRIM-SULFAMETHOXAZOLE 72463966965 No Longer Active Pelon Quach MD Active BACTRIM DS 800-160 MG ORAL TABLET 1 twice a day SULFAMETHOXAZOLE-TRIMETHOPRIM 31368941763 No Longer Active Pelon Quach MD Active IPRATROPIUM-ALBUTEROL 0.5-2.5 (3) MG/3ML INHALATION SOLUTION 1 neb treatment four times daily, for cough IPRATROPIUM-ALBUTEROL 89697844127 No Longer Active Jaycee Torrez APRN Active FUROSEMIDE 40 MG ORAL TABLET Take one by mouth daily FUROSEMIDE 63310697894 No Longer Active Jaycee Torrez APRN Active LANTUS 100 UNIT/ML SUBCUTANEOUS SOLUTION 20 SUBQ AT HS INSULIN GLARGINE 56464763014 Active Pelon Quach MD Active LAMICTAL 25 MG ORAL TABLET 2 tabs po BID for convulsions LAMOTRIGINE 80548026887 Active Jaycee Torrez APRN Active LASIX 20 MG ORAL TABLET 1 tablet by mouth every morning for edema FUROSEMIDE 63620524885 Active Jaycee Torrez APRN Active BUSPIRONE HCL 10 MG ORAL TABLET 1 tab by mouth BID BUSPIRONE HCL 51813789181 Active Jaycee Torrez APRN Active ADULT ASPIRIN EC LOW STRENGTH 81 MG ORAL TABLET DELAYED RELEASE Take one by mouth daily ASPIRIN 80535029810 No Longer Active Pelon Quach MD Active ASPIRIN 81 MG ORAL TABLET 1 po qd ASPIRIN 70822115041 Active Pelon Quach MD Active ZOFRAN 4 MG ORAL TABLET 1 po q6hr PRN Nausea ONDANSETRON HCL 26168893016 No Longer Active Pelon Quach MD Active TYLENOL 325 MG ORAL TABLET 1-2 pills by mouth every 6 hours if needed for pain /fever ACETAMINOPHEN 07629481790 No Longer Active Pelon Quach MD Active INVEGA 6 MG ORAL TABLET EXTENDED RELEASE 24 HOUR 1 TAB ONCE DAILY PALIPERIDONE 63853262689 No Longer Active Carly Suggs Active TEGRETOL 200 MG ORAL TABLET by mouth twice a day CARBAMAZEPINE 21535028870 Active Taty Alvarado MD PhD Active FLOMAX 0.4 MG ORAL CAPSULE 1 Daily TAMSULOSIN HCL 35428664565 Active Marianelachandrika Juarez Active DILANTIN 100 MG ORAL CAPSULE Take one by mouth daily PHENYTOIN SODIUM EXTENDED 23404077483 No Longer Active Marianelachandrika Shankarronny Active DEPAKOTE SPRINKLES 125 MG ORAL CAPSULE DELAYED RELEASE SPRINKLE 4 capsules by mouth twice daily DIVALPROEX SODIUM 71950967496 No Longer Active Marianela Raida Active LAMICTAL 200 MG ORAL TABLET 1 BY MOUTH TWICE A DAY LAMOTRIGINE 77159337489 Active Marianela Raida Active LAMICTAL 100 MG ORAL TABLET by mouth twice a day LAMOTRIGINE 82239501364 No Longer Active Marianela Raida Active LAMICTAL 150 MG ORAL TABLET by mouth twice a day LAMOTRIGINE 94607184153 No Longer Active Marianelachandrika Shankarida Active DILANTIN 100 MG ORAL CAPSULE Take three by mouth daily PHENYTOIN SODIUM EXTENDED 60440828767 No Longer Active Marianela Larry Active SENOKOT 8.6 MG ORAL TABLET take at bedtime SENNOSIDES 02889943891 Active Pelon Quach MD Active LIPITOR 20 MG ORAL TABLET take at bedtime ATORVASTATIN CALCIUM 52858719508 Active Glenn Thornton MD Active LISINOPRIL 2.5 MG ORAL TABLET Take one by mouth daily LISINOPRIL 93876271631 Active Glenn Thornton MD Active TRENTAL 400 MG CR-TABS by mouth twice a day PENTOXIFYLLINE 40058309189 Active Glenn Thornton MD Active KLOR-CON 10 10 MEQ ORAL TABLET EXTENDED RELEASE Take one by mouth daily POTASSIUM CHLORIDE 20666841834 Active Glenn Thornton MD Active DILANTIN 100 MG ORAL CAPSULE Take three by mouth daily DILANTIN 100 MG ORAL CAPSULE 470992 PHENYTOIN SODIUM EXTENDED Inactive LAMICTAL 150 MG [...] 125 MG ORAL CAPSULE DELAYED RELEASE SPRINKLE 7914952 DIVALPROEX SODIUM Inactive DILANTIN 100 MG ORAL CAPSULE Take one by mouth daily DILANTIN 100 MG ORAL CAPSULE 671853 PHENYTOIN SODIUM EXTENDED Inactive INVEGA 6 MG ORAL TABLET EXTENDED RELEASE 24 HOUR 1 TAB ONCE DAILY INVEGA 6 MG ORAL TABLET EXTENDED RELEASE 24 HOUR PALIPERIDONE Inactive TYLENOL 325 MG ORAL TABLET 1-2 pills by mouth every 6 hours if needed for pain /fever TYLENOL 325 MG ORAL TABLET 903124 ACETAMINOPHEN Inactive ZOFRAN 4 MG ORAL TABLET 1 po q6hr PRN Nausea ZOFRAN 4 MG ORAL TABLET 315723 ONDANSETRON HCL Inactive ADULT ASPIRIN EC LOW STRENGTH 81 MG ORAL TABLET DELAYED RELEASE Take one by mouth daily ADULT ASPIRIN EC LOW STRENGTH 81 MG ORAL TABLET DELAYED RELEASE 629479 ASPIRIN Inactive FUROSEMIDE 40 MG ORAL TABLET Take one by mouth daily FUROSEMIDE 40 MG ORAL TABLET 438049 FUROSEMIDE Inactive BACTRIM DS 800-160 MG ORAL TABLET 1 twice a day BACTRIM DS 800-160 MG ORAL TABLET 195056 SULFAMETHOXAZOLE-TRIMETHOPRIM Inactive IPRATROPIUM-ALBUTEROL 0.5-2.5 (3) MG/3ML INHALATION SOLUTION 1 neb treatment QID for cough Dx: J06.9 IPRATROPIUM-ALBUTEROL 0.5-2.5 ( 3) MG/3ML INHALATION SOLUTION 5942223 IPRATROPIUM-ALBUTEROL Inactive TYLENOL 8 HOUR 650 MG [...] a day LAMICTAL 25 MG ORAL TABLET 170934 LAMOTRIGINE Inactive NOVOLOG 100 UNIT/ML SUBCUTANEOUS SOLUTION 10 UNITS BEFORE SUPPER NOVOLOG 100 UNIT/ML SUBCUTANEOUS SOLUTION INSULIN ASPART Inactive NOVOLOG 100 UNIT/ML SUBCUTANEOUS SOLUTION 10 UNITS BID BEFORE BREAKFAST AND LUNCH NOVOLOG 100 UNIT/ML SUBCUTANEOUS SOLUTION INSULIN ASPART Inactive BANOPHEN 25 MG ORAL TABLET 1 po every 6 hours PRN allergic reaction BANOPHEN 25 MG ORAL TABLET 4091301 DIPHENHYDRAMINE HCL Inactive IPRATROPIUM-ALBUTEROL 0.5-2.5 (3) MG/3ML INHALATION SOLUTION 1 neb treatment four times daily, for cough IPRATROPIUM-ALBUTEROL 0.5- 2.5 (3) MG/3ML INHALATION SOLUTION 7921871 IPRATROPIUM-ALBUTEROL Inactive BACTRIM DS 800-160 MG ORAL TABLET 1 tab by mouth twice daily 2016 BACTRIM DS 800-160 MG ORAL TABLET 107063 TRIMETHOPRIM- SULFAMETHOXAZOLE Inactive Advance Directives Directive Description Start Date DURABLE POWER OF CAR CONSTRUCTION SUPERINTENDENT FOR HEALTHCARE PERMISSION TO SHARE ADVANCED DIRECTIVE [...] Panel - Chemistry sodium, serum 127 mmol/L 700-978 5566/07/28 potassium, serum 5.3 mmol/L 3.5-5.2 chloride, serum 92 mmol/L 98-107 carbon dioxide, venous blood 32.4 mmol/L 21.0-32.0 blood glucose 182 mg/dL 65-110 calcium, serum 9.4 mg/dL 8.5-10.1 urea nitrogen, blood 14 mg/dL 7-18 creatinine, serum 0.94 mg/dL 0.60-1.30 Lab Report: CBC, Comp. Metabolic Panel - Chemistry sodium, serum 129 mmol/L 287-251 6957/07/12 carbon dioxide, venous blood 27.8 mmol/L 21.0-32.0 [...] BA1C - Chemistry sodium, serum 123 mmol/L 799-541 2321/04/25 carbon dioxide, venous blood 26.2 mmol/L 21.0-32.0 [...] mg/dL Encounters Code Encounter Date Provider Facility [id number] Vst-Est Level III 13:36:24 CDT Pelon Quach MD [facility]-11829 Level 4 Est. Patient 18:11:18 CDT Pelon Quach MD [facility] CPT-65394 Level 4 Est. Patient 14:46:38 CDT Pelon Quach MD [facility]-94483 Level 4 Est. Patient 08:43:11 CDT Pelon Quach MD [facility]-88447 Level 4 Est. Patient 14:27:30 CDT Pelon Quach MD [facility]-66742 Level 3 Est. Patient 10:32:17 CDT Jaycee Torrez [facility] [place][note 2]-06216 Level 3 Est. Patient 10:15:07 CDT Pelon Quach MD [facility] CPT-98840 Level 4 Est. Patient 09:30:54 CDT Pelon Quach MD [facility]-42558 Level 4 Est. Patient 14:34:25 CDT Pelon Quach MD [facility]-02880 Level 3 Est. Patient 11:51:35 BALANCE CLERK Rick Henson DO [facility] CPT-92836 Level 3 Est. Patient 12:13:33 BALANCE CLERK Erik Baptiste MD [facility]-69569 Level 3 Est. Patient 09:40:44 BALANCE CLERK Jaycee Torrez [facility] [place][note 2]-40894 Level 3 Est. Patient 09:36:32 BALANCE CLERK Jaycee Torrez SHANK [employer]APER [facility]-01123 Level 4 Est. Patient 16:57:02 BALANCE CLERK Pelon Quach MD [facility]-52187 Level 4 Est. Patient 22:19:34 CDT Pelon Quach MD [facility]-29247 Level 3 Est. Patient 00:34:41 CDT Pelon Quach MD [facility]-50904 Level 4 Est. Patient 11:19:14 CDT Pelon Quach MD [facility]-45245 Level 4 Est. Patient 16:43:30 BALANCE CLERK Pelon Quach MD [facility]-06886 Level 4 Est. Patient 12:42:18 CDT Pelon Quach MD [facility] CPT-84266 Level 4 Est. Patient 11:52:20 CDT Pelon Quach MD [facility]-89638 Level 4 Est. Patient 13:59:46 CDT Pelon Quach MD [facility]-03499 Level 4 Est. Patient 15:10:48 CDT Pelon Quach MD [facility]-73777 Level 4 Est. Patient 17:13:06 CDT Pelon Quach MD [facility] CPT-35784 Level 4 Est. Patient 18:47:47 CDT Pelon Quach MD [facility]-27328 Level 3 Est. Patient 21:01:27 CDT Pelon Quach MD [facility]-70038 Level 3 Est. Patient 14:07:03 CDT Taty Alvarado MD PhD [facility] CPT-08002 Level 3 New Patient 21:39:52 BALANCE CLERK Pelon Quach MD [facility]-10272 Level 3 Est. Patient 14:28:44 CDT Glenn Thornton MD [facility]-13473 Level 3 Est. Patient 16:35:00 CDT Glenn Thornton MD [facility] CPT-24291 Level 4 New Patient 17:06:27 CDT Glenn Thornton MD [facility] [place] Procedures Code Procedure Name Date Entry Date Standard Description CPT-G0439 Subsequent Annual Wellness Exam 18:11:17 CDT CPT-G0438 Initial Annual Wellness Exam 09:30:54 CDT CPT-83031 Prevnar 13 Intramuscular Suspension 14:34:25 CDT 12/27 CPT-05338 Chest 2V Frontal and Lat - XRAY USE ONLY 11:56:13 BALANCE CLERK CPT-05666 Cystoscopy 14:28:44 CDT CPT-09668 Bladder Scan 14:28:44 CDT CPT-27925 Indwelling Cath Change 17:06:27 CDT CPT-75865 Cystoscopy 17:06:27 CDT
--- OUTSIDE RECORDS SUMMARY | 2018-06-22 12:43 | XMS REPORT | Clinical Summary ---
Author Author Admin, ONESIMO Organization [facility] [employer] [place] Address Unknown Phone Unavailable Allergies, Adverse Reactions, [...] Unspecified fall Seasonal allergies 477.9 Active Pelon Qucah MD Allergic rhinitis, cause unspecified Diabetes mellitus, [...] and insulin admin Dx: E11.9 ALCOHOL SWABS 13061832401 Active Jaycee Torrez APRN Active HUMALOG KWIKPEN 100 UNIT/ML SUBCUTANEOUS SOLUTION PEN-INJECTOR inject 10 units subcutaneously before meals also sliding scale INSULIN LISPRO 87744625015 Active Jaycee Torrez APRN Active NOVOLOG 100 UNIT/ML SUBCUTANEOUS SOLUTION 10 UNITS BID BEFORE BREAKFAST AND LUNCH INSULIN ASPART 60437142508 No Longer Active NICOLETTE Hitchcock Active NOVOLOG 100 UNIT/ML SUBCUTANEOUS SOLUTION 10 UNITS BEFORE SUPPER INSULIN ASPART 51447053506 No Longer Active NICOLETTE Hitchcock Active INVEGA 6 MG ORAL TABLET EXTENDED RELEASE 24 HOUR 1 po daily for schizophrenia PALIPERIDONE 84892561407 Active Pelon Quach MD Active LAMICTAL 25 MG ORAL TABLET 2 tabs by mouth twice a day LAMOTRIGINE 78930624781 No Longer Active Pelon Quach MD Active BACTROBAN 2 % EXTERNAL OINTMENT Apply to affected area BID 06/28 MUPIROCIN 94700803509 No Longer Active Pelon Quach MD Active BANOPHEN 25 MG ORAL TABLET 1 po every 6 hours PRN allergic reaction DIPHENHYDRAMINE HCL 96036723187 Active Pelon Quach MD Active INVEGA 6 MG ORAL TABLET EXTENDED RELEASE 24 HOUR 1 po daily for Schizophrenia PALIPERIDONE 36937875097 No Longer Active Pelon Quach MD Active TYLENOL 8 HOUR 650 MG ORAL TABLET EXTENDED RELEASE Take 1 tab po up to 3 times daily as needed ACETAMINOPHEN 60237344417 No Longer Active Pelon Quach MD Active IPRATROPIUM-ALBUTEROL 0.5-2.5 (3) MG/3ML INHALATION SOLUTION 1 neb treatment QID for cough Dx: J06.9 IPRATROPIUM-ALBUTEROL 04666830899 No Longer Active Pelon Quach MD Active BACTRIM DS 800-160 MG ORAL TABLET 1 tab by mouth twice daily 2016 TRIMETHOPRIM-SULFAMETHOXAZOLE 62031818867 No Longer Active Pelon Quach MD Active BACTRIM DS 800-160 MG ORAL TABLET 1 twice a day SULFAMETHOXAZOLE-TRIMETHOPRIM 35594456934 No Longer Active Pelon Quach MD Active IPRATROPIUM-ALBUTEROL 0.5-2.5 (3) MG/3ML INHALATION SOLUTION 1 neb treatment four times daily, for cough IPRATROPIUM-ALBUTEROL 38289331458 No Longer Active Jaycee Torrez APRN Active FUROSEMIDE 40 MG ORAL TABLET Take one by mouth daily FUROSEMIDE 77015525730 No Longer Active Jaycee Torrez APRN Active LANTUS 100 UNIT/ML SUBCUTANEOUS SOLUTION 20 SUBQ AT HS INSULIN GLARGINE 08025912464 Active Jaycee Torrez APRN Active LAMICTAL 25 MG ORAL TABLET 2 tabs po BID for convulsions LAMOTRIGINE 54712789203 Active Jaycee Torrez APRN Active LASIX 20 MG ORAL TABLET 1 tablet by mouth every morning for edema FUROSEMIDE 52025680538 Active Jaycee Torrez APRN Active BUSPIRONE HCL 10 MG ORAL TABLET 1 tab by mouth BID BUSPIRONE HCL 21730319144 Active Jaycee Torrez APRN Active ADULT ASPIRIN EC LOW STRENGTH 81 MG ORAL TABLET DELAYED RELEASE Take one by mouth daily ASPIRIN 11745984513 No Longer Active Pelon Quach MD Active ASPIRIN 81 MG ORAL TABLET 1 po qd ASPIRIN 89708308157 Active Pelon Quach MD Active ZOFRAN 4 MG ORAL TABLET 1 po q6hr PRN Nausea ONDANSETRON HCL 20082266088 No Longer Active Pelon Quach MD Active TYLENOL 325 MG ORAL TABLET 1-2 pills by mouth every 6 hours if needed for pain /fever ACETAMINOPHEN 97159556926 No Longer Active Pelon Quach MD Active INVEGA 6 MG ORAL TABLET EXTENDED RELEASE 24 HOUR 1 TAB ONCE DAILY PALIPERIDONE 13795345187 No Longer Active Carly Suggs Active TEGRETOL 200 MG ORAL TABLET by mouth twice a day CARBAMAZEPINE 99046628199 Active Taty Alvarado MD PhD Active FLOMAX 0.4 MG ORAL CAPSULE 1 Daily TAMSULOSIN HCL 09454184100 Active Marianelachandrika Juarez Active DILANTIN 100 MG ORAL CAPSULE Take one by mouth daily PHENYTOIN SODIUM EXTENDED 64755596611 No Longer Active Marianelachandrika Shankarronny Active DEPAKOTE SPRINKLES 125 MG ORAL CAPSULE DELAYED RELEASE SPRINKLE 4 capsules by mouth twice daily DIVALPROEX SODIUM 48452459854 No Longer Active Marianelachandrika Shankarida Active LAMICTAL 200 MG ORAL TABLET 1 BY MOUTH TWICE A DAY LAMOTRIGINE 57740697726 Active Marianela Raida Active LAMICTAL 100 MG ORAL TABLET by mouth twice a day LAMOTRIGINE 55942486500 No Longer Active Marianelachandrika Juarez Active LAMICTAL 150 MG ORAL TABLET by mouth twice a day LAMOTRIGINE 95027668541 No Longer Active Marianelachandrika Juarez Active DILANTIN 100 MG ORAL CAPSULE Take three by mouth daily PHENYTOIN SODIUM EXTENDED 07584149399 No Longer Active Marianela Juarez Active SENOKOT 8.6 MG ORAL TABLET take at bedtime SENNOSIDES 39312827980 Active Pelon Quach MD Active LIPITOR 20 MG ORAL TABLET take at bedtime ATORVASTATIN CALCIUM 13183272712 Active Glenn Thornton MD Active LISINOPRIL 2.5 MG ORAL TABLET Take one by mouth daily LISINOPRIL 75386192009 Emilie Thornton MD Active TRENTAL 400 MG CR-TABS by mouth twice a day PENTOXIFYLLINE 22866510463 Active Glenn Thornton MD Active KLOR-CON 10 10 MEQ ORAL TABLET EXTENDED RELEASE Take one by mouth daily POTASSIUM CHLORIDE 23486901642 Active Glenn Thornton MD Active DILANTIN 100 MG ORAL CAPSULE Take three by mouth daily DILANTIN 100 MG ORAL CAPSULE 523779 PHENYTOIN SODIUM EXTENDED Inactive LAMICTAL 150 MG [...] 125 MG ORAL CAPSULE DELAYED RELEASE SPRINKLE 8793125 DIVALPROEX SODIUM Inactive DILANTIN 100 MG ORAL CAPSULE Take one by mouth daily DILANTIN 100 MG ORAL CAPSULE 796449 PHENYTOIN SODIUM EXTENDED Inactive INVEGA 6 MG ORAL TABLET EXTENDED RELEASE 24 HOUR 1 TAB ONCE DAILY INVEGA 6 MG ORAL TABLET EXTENDED RELEASE 24 HOUR PALIPERIDONE Inactive TYLENOL 325 MG ORAL TABLET 1-2 pills by mouth every 6 hours if needed for pain /fever TYLENOL 325 MG ORAL TABLET 375770 ACETAMINOPHEN Inactive ZOFRAN 4 MG ORAL TABLET 1 po q6hr PRN Nausea ZOFRAN 4 MG ORAL TABLET 920493 ONDANSETRON HCL Inactive ADULT ASPIRIN EC LOW STRENGTH 81 MG ORAL TABLET DELAYED RELEASE Take one by mouth daily ADULT ASPIRIN EC LOW STRENGTH 81 MG ORAL TABLET DELAYED RELEASE 722088 ASPIRIN Inactive FUROSEMIDE 40 MG ORAL TABLET Take one by mouth daily FUROSEMIDE 40 MG ORAL TABLET 322790 FUROSEMIDE Inactive BACTRIM DS 800-160 MG ORAL TABLET 1 twice a day BACTRIM DS 800-160 MG ORAL TABLET 293825 SULFAMETHOXAZOLE-TRIMETHOPRIM Inactive IPRATROPIUM-ALBUTEROL 0.5-2.5 (3) MG/3ML INHALATION SOLUTION 1 neb treatment QID for cough Dx: J06.9 IPRATROPIUM-ALBUTEROL 0.5-2.5 ( 3) MG/3ML INHALATION SOLUTION 7430687 IPRATROPIUM-ALBUTEROL Inactive TYLENOL 8 HOUR 650 MG [...] BID 06/28 BACTROBAN 2 % EXTERNAL OINTMENT 560176 MUPIROCIN Inactive LAMICTAL 25 MG ORAL TABLET 2 tabs by mouth twice a day LAMICTAL 25 MG ORAL TABLET 866425 LAMOTRIGINE Inactive NOVOLOG 100 UNIT/ML SUBCUTANEOUS SOLUTION 10 UNITS BEFORE SUPPER NOVOLOG 100 UNIT/ML SUBCUTANEOUS SOLUTION INSULIN ASPART Inactive NOVOLOG 100 UNIT/ML SUBCUTANEOUS SOLUTION 10 UNITS BID BEFORE BREAKFAST AND LUNCH NOVOLOG 100 UNIT/ML SUBCUTANEOUS SOLUTION INSULIN ASPART Inactive IPRATROPIUM-ALBUTEROL 0.5-2.5 (3) MG/3ML INHALATION SOLUTION 1 neb treatment four times daily, for cough IPRATROPIUM-ALBUTEROL 0.5- 2.5 (3) MG/3ML INHALATION SOLUTION 8219733 IPRATROPIUM-ALBUTEROL Inactive BACTRIM DS 800-160 MG ORAL TABLET 1 tab by mouth twice daily 2016 BACTRIM DS 800-160 MG ORAL TABLET 314976 TRIMETHOPRIM- SULFAMETHOXAZOLE Inactive Advance Directives Directive Description Start Date DURABLE POWER OF STOCKING AND BOX SHOP SUPERVISOR FOR HEALTHCARE PERMISSION TO SHARE ADVANCED [...] Panel - Chemistry sodium, serum 127 mmol/L 972-490 2161/07/28 potassium, serum 5.3 mmol/L 3.5-5.2 chloride, serum 92 mmol/L 98-107 carbon dioxide, venous blood 32.4 mmol/L 21.0-32.0 blood glucose 182 mg/dL 65-110 calcium, serum 9.4 mg/dL 8.5-10.1 urea nitrogen, blood 14 mg/dL 7-18 creatinine, serum 0.94 mg/dL 0.60-1.30 Lab Report: CBC, Comp. Metabolic Panel - Chemistry sodium, serum 129 mmol/L 784-071 8307/07/12 carbon dioxide, venous blood 27.8 mmol/L 21.0-32.0 [...] mg/dL Encounters Code Encounter Date Provider Facility CPT-99542 Level 4 Est. Patient 14:46:38 CDT Pelon Quach MD [facility] CPT-77428 Level 4 Est. Patient 08:43:11 CDT Pelon Quach MD [facility] CPT-29215 Level 4 Est. Patient 14:27:30 CDT Pelon Quach MD [facility] CPT-10677 Level 3 Est. Patient 10:32:17 CDT Jaycee Arell [facility]-66651 Level 3 Est. Patient 10:15:07 CDT Pelon Quach MD [facility] CPT-96121 Level 4 Est. Patient 09:30:54 CDT Pelon Quach MD [facility] CPT-53225 Level 4 Est. Patient 14:34:25 CDT Pelon Quach MD [facility] CPT-03046 Level 3 Est. Patient 11:51:35 MAINTENANCE PIPEFITTER Rick Henson DO [facility] CPT-98135 Level 3 Est. Patient 12:13:33 MAINTENANCE PIPEFITTER Erik Baptiste MD [facility]-86902 Level 3 Est. Patient 09:40:44 MAINTENANCE PIPEFITTER Jaycee Torrez [facility] CPT-31213 Level 3 Est. Patient 09:36:32 MAINTENANCE PIPEFITTER Jaycee Torrez [facility] CPT-66917 Level 4 Est. Patient 16:57:02 MAINTENANCE PIPEFITTER Pelon Quach MD [facility] CPT-68596 Level 4 Est. Patient 22:19:34 CDT Pelon Quach MD [facility]-13323 Level 3 Est. Patient 00:34:41 CDT Pelon Quach MD [facility] CPT-96555 Level 4 Est. Patient 11:19:14 CDT Pelon Quach MD [facility] CPT-20865 Level 4 Est. Patient 16:43:30 MAINTENANCE PIPEFITTER Pelon Quach MD [facility] CPT-75706 Level 4 Est. Patient 12:42:18 CDT Pelon Quach MD [facility] CPT-57542 Level 4 Est. Patient 11:52:20 CDT Pelon Quach MD [facility] CPT-22451 Level 4 Est. Patient 13:59:46 CDT Pelon Quach MD [facility] CPT-24123 Level 4 Est. Patient 15:10:48 CDT Pelon Quach MD [facility] CPT-67065 Level 4 Est. Patient 17:13:06 CDT Pelon Quach MD [facility] CPT-32750 Level 4 Est. Patient 18:47:47 CDT Pelon Quach MD [facility] CPT-48266 Level 3 Est. Patient 21:01:27 CDT Pelon Quach MD [facility] CPT-29722 Level 3 Est. Patient 14:07:03 CDT Taty Alvarado MD [facility] CPT-75937 Level 3 New Patient 21:39:52 MAINTENANCE PIPEFITTER Pelon Quach MD [facility] CPT-78158 Level 3 Est. Patient 14:28:44 CDT Glenn Thornton MD [facility] CPT-79698 Level 3 Est. Patient 16:35:00 CDT Glenn Thornton MD [facility] CPT-29760 Level 4 New Patient 17:06:27 CDT Glenn Thornton MD [facility] [place] Procedures Code Procedure Name Date Entry Date Standard Description CPT-G0438 Initial Annual Wellness Exam 09:30:54 CDT CPT-17842 Prevnar 13 Intramuscular Suspension 14:34:25 CDT 12/27 CPT-74976 Chest 2V Frontal and Lat - XRAY USE ONLY 11:56:13 MAINTENANCE PIPEFITTER CPT-23645 Cystoscopy 14:28:44 CDT CPT-23981 Bladder Scan 14:28:44 CDT CPT-00326 Indwelling Cath Change 17:06:27 CDT CPT-14311 Cystoscopy 17:06:27 CDT
--- OUTSIDE RECORDS SUMMARY | 2018-06-22 12:43 | XMS REPORT | Clinical Summary ---
Author Author Admin, E Organization [facility] [place] Address Unknown Phone Unavailable Allergies, Adverse Reactions, [...] 6 hours if needed for pain/fever ACETAMINOPHEN 87425575741 Active Pelon Quach MD Active LANTUS 100 UNIT/ML SC SOLN 18 SUBQ AT HS INSULIN GLARGINE 19719326441 Active Pelon Quach MD Active ZOFRAN 4 MG TABS 1 po q6hr PRN Nausea ONDANSETRON HCL 50445541409 Active Pelon Quach MD Active TEGRETOL 200 MG TABS by mouth twice a day CARBAMAZEPINE 14282055934 Active Taty Alvarado MD PhD Active NOVOLOG 100 UNIT/ML SC SOLN 7 UNITS BEFORE SUPPER INSULIN ASPART 59800723533 Active Marianela Shankarida Active NOVOLOG 100 UNIT/ML SC SOLN 7 UNITS BID BEFORE BREAKFAST AND LUNCH INSULIN ASPART 57507426785 Active Marianelachandrika Shankarida Active FLOMAX 0.4 MG CAPS 1 Daily TAMSULOSIN HCL 04140016341 Active Marianela Juarez Active INVEGA 6 MG ORAL [id number] 1 TAB ONCE DAILY PALIPERIDONE 58245306932 Active Marianela Juarez Active DILANTIN 100 MG CAPS Take one by mouth daily PHENYTOIN SODIUM EXTENDED 62343411890 No Longer Active Marianela Juarez Active DEPAKOTE SPRINKLES 125 MG CPSP 4 capsules by mouth twice daily DIVALPROEX SODIUM 78742320422 No Longer Active Marianela Shankarida Active LAMICTAL 200 MG ORAL TABS 1 BY MOUTH TWICE A DAY LAMOTRIGINE 23374950363 Active Marianelachandrika Juarez Active LAMICTAL 100 MG TABS by mouth twice a day LAMOTRIGINE 62226859293 No Longer Active Marianelachandrika Shankarida Active LAMICTAL 150 MG TABS by mouth twice a day LAMOTRIGINE 23444521074 No Longer Active Marianelachandrika Juarez Active DILANTIN 100 MG CAPS Take three by mouth daily PHENYTOIN SODIUM EXTENDED 49765289450 No Longer Active Marianelachandrika Shankarida Active SENOKOT 8.6 MG TABS take at bedtime SENNOSIDES 90756152335 Active Glenn Thornton MD Active LIPITOR 20 MG TABS take at bedtime ATORVASTATIN CALCIUM 09258273079 Active Glenn Thornton MD Active LISINOPRIL 2.5 MG TABS Take one by mouth daily LISINOPRIL 08446967560 Active Glenn Thornton MD Active TRENTAL 400 MG CR-TABS by mouth twice a day PENTOXIFYLLINE 29844506343 Active Glenn Thornton MD Active LAMICTAL 25 MG TABS by mouth twice a day LAMOTRIGINE 41905645792 Active Glenn Thornton MD Active BUSPIRONE HCL 10 MG TABS by mouth twice a day BUSPIRONE HCL 58974495742 Active Glenn Thornton MD Active FUROSEMIDE 40 MG TABS Take one by mouth daily FUROSEMIDE 44645979591 Active Glenn Thornton MD Active KLOR-CON 10 10 MEQ CR-TABS Take one by mouth daily POTASSIUM CHLORIDE 96105616329 Active Glenn Thornton MD Active ADULT ASPIRIN EC LOW STRENGTH 81 MG TBEC Take one by mouth daily ASPIRIN 56240637788 Active Glenn Thornton MD Active DILANTIN 100 MG CAPS Take three by mouth daily DILANTIN 100 MG CAPS 244001 PHENYTOIN SODIUM EXTENDED Inactive LAMICTAL 150 MG TABS by mouth twice a day LAMICTAL 150 MG TABS 19831025 LAMOTRIGINE Inactive LAMICTAL 100 MG TABS by mouth twice a day LAMICTAL 100 MG TABS 19831024 LAMOTRIGINE Inactive DEPAKOTE SPRINKLES 125 MG CPSP 4 capsules by mouth twice daily DEPAKOTE SPRINKLES 125 MG CPSP 8144087 DIVALPROEX SODIUM Inactive DILANTIN 100 MG CAPS Take one by mouth daily DILANTIN 100 MG CAPS 113610 PHENYTOIN SODIUM EXTENDED Inactive Advance Directives Directive Description Start Date DURABLE POWER OF PREVENTATIVE MAINTENANCE TECHNICIAN FOR HEALTHCARE PERMISSION TO SHARE Vital Signs Date Name Value Unit Range Description blood pressure, diastolic - 8462-4 79 mm[Hg] [...] % Office Visit: GET EST - Chemistry home glucose monitor utilized Yes LDL target level 100 mg/dL HDL cholesterol, serum, target level 35 mg/dL triglyceride, target level 200 mg/dL cholesterol, target level 200 mg/dL Encounters Code Encounter Date Provider Facility CPT-12191 Level 4 Est. Patient 18:47:47 CDT Pelon Quach MD [facility] CPT-44660 Level 3 Est. Patient 21:01:27 CDT Pelon Quach MD [facility] CPT-90169 Level 3 Est. Patient 14:07:03 CDT Taty Alvarado MD PhD [facility] CPT-95961 Level 3 New Patient 21:39:52 ORIGINATION SPECIALIST Pelon Quach MD [facility] CPT-90499 Level 3 Est. Patient 14:28:44 CDT Glenn Thornton MD [facility] CPT-28237 Level 3 Est. Patient 16:35:00 CDT Glenn Thornton MD [facility] CPT-09287 Level 4 New Patient 17:06:27 CDT Glenn Thornton MD [facility] Procedures Code Procedure Name Date Entry Date Standard Description CPT-87859 Cystoscopy 14:28:44 CDT CPT-58982 Bladder Scan 14:28:44 CDT CPT-24516 Indwelling Cath Change 17:06:27 CDT CPT-90964 Cystoscopy 17:06:27 CDT
--- OUTSIDE RECORDS SUMMARY | 2018-06-22 12:44 | XMS REPORT | Clinical Summary ---
Author Author Admin, ONESIMO Organization [facility] [place] Address Unknown Phone Unavailable Allergies, Adverse Reactions, [...] 6 hours PRN allergic reaction DIPHENHYDRAMINE HCL 39705634115 Active NICOLETTE Hitchcock Active INVEGA 6 MG ORAL [id number] 1 po daily for Schizophrenia PALIPERIDONE 43521920214 No Longer Active Pelon Quach MD Active TYLENOL 8 HOUR 650 MG ORAL CR-TABS Take 1 tab po up to 3 times daily as needed ACETAMINOPHEN 73245085633 No Longer Active Pelon Quach MD Active IPRATROPIUM-ALBUTEROL 0.5-2.5 (3) MG/3ML INH SOLN 1 neb treatment QID for cough Dx: J06.9 IPRATROPIUM-ALBUTEROL 41253024861 No Longer Active Pelon Quach MD Active BACTRIM DS 800-160 MG TAB 1 tab by mouth twice daily TRIMETHOPRIM-SULFAMETHOXAZOLE 70959520210 No Longer Active Pelon Quach MD Active BACTROBAN 2 % OINTMENT Apply to affected area BID MUPIROCIN 93967813534 Active Jaycee Garcia APRN Active BACTRIM DS 800-160 MG TABS 1 twice a day SULFAMETHOXAZOLE-TRIMETHOPRIM 26227273309 No Longer Active Pelon Quach MD Active IPRATROPIUM-ALBUTEROL 0.5-2.5 (3) MG/3ML SOLN 1 neb treatment four times daily , for cough IPRATROPIUM-ALBUTEROL 45734319262 No Longer Active Jaycee Garcia APRN Active FUROSEMIDE 40 MG TABS Take one by mouth daily FUROSEMIDE 34481665241 No Longer Active Jaycee Garcia APRN Active LANTUS 100 UNIT/ML SC SOLN 20 SUBQ AT HS INSULIN GLARGINE 47836674309 Active Jaycee Garcia APRN Active LAMICTAL 25 MG ORAL TABS 2 tabs po BID for convulsions LAMOTRIGINE 33102980307 Active Jaycee Garcia APRN Active LASIX 20 MG TAB 1 tablet by mouth every morning for edema FUROSEMIDE 17154787078 Active Jaycee Garcia APRN Active BUSPIRONE HCL 10 MG TABS 1 tab by mouth BID BUSPIRONE HCL 43294502557 Active Jaycee Garcia MASTER CONTROL OPERATOR Active NOVOLOG 100 UNIT/ML SC SOLN 10 UNITS BEFORE SUPPER INSULIN ASPART 93936898049 Active Jaycee Garcia APRN Active NOVOLOG 100 UNIT/ML SC SOLN 10 UNITS BID BEFORE BREAKFAST AND LUNCH INSULIN ASPART 45925986996 Active Jaycee Garcia APRN Active LAMICTAL 25 MG TABS 2 tabs by mouth twice a day LAMOTRIGINE 97282627053 Active Pelon Quach MD Active ADULT ASPIRIN EC LOW STRENGTH 81 MG TBEC Take one by mouth daily ASPIRIN 86957932199 No Longer Active Pelon Quach MD Active ASPIRIN 81 MG ORAL TABS 1 po qd ASPIRIN 04327760718 Active Pelon Quach MD Active ZOFRAN 4 MG TABS 1 po q6hr PRN Nausea ONDANSETRON HCL 60490202115 No Longer Active Pelon Quach MD Active TYLENOL 325 MG TAB 1-2 pills by mouth every 6 hours if needed for pain/fever ACETAMINOPHEN 80332490812 No Longer Active Pelon Quach MD Active INVEGA 6 MG ORAL [id number] 1 TAB ONCE DAILY PALIPERIDONE 63518781945 No Longer Active Carly Suggs Active TEGRETOL 200 MG TABS by mouth twice a day CARBAMAZEPINE 15617112208 Active Taty Alvarado MD PhD Active FLOMAX 0.4 MG CAPS 1 Daily TAMSULOSIN HCL 64062172941 Active Marianela Juarez Active DILANTIN 100 MG CAPS Take one by mouth daily PHENYTOIN SODIUM EXTENDED 41795696518 No Longer Active Marianela Juarez Active DEPAKOTE SPRINKLES 125 MG CPSP 4 capsules by mouth twice daily DIVALPROEX SODIUM 45186786647 No Longer Active Marianela Juarez Active LAMICTAL 200 MG ORAL TABS 1 BY MOUTH TWICE A DAY LAMOTRIGINE 13913412180 Active Marianela Juarez Active LAMICTAL 100 MG TABS by mouth twice a day LAMOTRIGINE 03864751524 No Longer Active Marianela Juarez Active LAMICTAL 150 MG TABS by mouth twice a day LAMOTRIGINE 08351347006 No Longer Active Marianela Juarez Active DILANTIN 100 MG CAPS Take three by mouth daily PHENYTOIN SODIUM EXTENDED 82808012448 No Longer Active Marianela Shankarronny Active SENOKOT 8.6 MG TABS take at bedtime SENNOSIDES 14455945161 Active Glenn Thornton MD Active LIPITOR 20 MG TABS take at bedtime ATORVASTATIN CALCIUM 16688702743 Active Glenn Thornton MD Active LISINOPRIL 2.5 MG TABS Take one by mouth daily LISINOPRIL 37556103419 Active Glenn Thornton MD Active TRENTAL 400 MG CR-TABS by mouth twice a day PENTOXIFYLLINE 76922810802 Active Glenn Thornton MD Active KLOR-CON 10 10 MEQ CR-TABS Take one by mouth daily POTASSIUM CHLORIDE 35275586793 Active Glenn Thornton MD Active DILANTIN 100 MG CAPS Take three by mouth daily DILANTIN 100 MG CAPS 499454 PHENYTOIN SODIUM EXTENDED Inactive LAMICTAL 150 MG TABS by mouth twice a day LAMICTAL 150 MG TABS 011523 LAMOTRIGINE Inactive LAMICTAL 100 MG TABS by mouth twice a day LAMICTAL 100 MG TABS 19831024 LAMOTRIGINE Inactive DEPAKOTE SPRINKLES 125 MG CPSP 4 capsules by mouth twice daily DEPAKOTE SPRINKLES 125 MG CPSP 5724986 DIVALPROEX SODIUM Inactive DILANTIN 100 MG CAPS Take one by mouth daily DILANTIN 100 MG CAPS 383333 PHENYTOIN SODIUM EXTENDED Inactive INVEGA 6 MG ORAL [id number] 1 TAB ONCE DAILY INVEGA 6 MG ORAL [id number] PALIPERIDONE Inactive TYLENOL 325 MG TAB 1-2 pills by mouth every 6 hours if needed for pain/fever TYLENOL 325 MG TAB 963647 ACETAMINOPHEN Inactive ZOFRAN 4 MG TABS 1 po q6hr PRN Nausea ZOFRAN 4 MG TABS 353789 ONDANSETRON HCL Inactive ADULT ASPIRIN EC LOW STRENGTH 81 MG TBEC Take one by mouth daily ADULT ASPIRIN EC LOW STRENGTH 81 MG TBEC 465587 ASPIRIN Inactive FUROSEMIDE 40 MG TABS Take one by mouth daily FUROSEMIDE 40 MG TABS 855194 FUROSEMIDE Inactive BACTRIM DS 800-160 MG TABS 1 twice a day BACTRIM DS 800-160 MG TABS 714315 SULFAMETHOXAZOLE-TRIMETHOPRIM Inactive IPRATROPIUM-ALBUTEROL 0.5-2.5 (3) MG/3ML INH SOLN 1 neb treatment QID for cough Dx: J06.9 IPRATROPIUM-ALBUTEROL 0.5-2.5 (3) MG/ 3ML INH SOLN 5409954 IPRATROPIUM-ALBUTEROL Inactive TYLENOL 8 HOUR 650 MG ORAL CR-TABS Take 1 tab po up to 3 times daily as needed TYLENOL 8 HOUR 650 MG ORAL CR-TABS ACETAMINOPHEN Inactive INVEGA 6 MG ORAL [id number] 1 po daily for Schizophrenia INVEGA 6 MG ORAL [id number] PALIPERIDONE Inactive IPRATROPIUM-ALBUTEROL 0.5-2.5 (3) MG/3ML SOLN 1 neb treatment four times daily , for cough IPRATROPIUM-ALBUTEROL 0.5-2.5 (3) MG/3ML SOLN 1487952 IPRATROPIUM-ALBUTEROL Inactive BACTRIM DS 800-160 MG TAB 1 tab by mouth twice daily BACTRIM DS 800-160 MG TAB 19821119 TRIMETHOPRIM-SULFAMETHOXAZOLE Inactive Advance Directives Directive Description Start Date DURABLE POWER OF MACHINE PULLER FOR HEALTHCARE PERMISSION TO SHARE ADVANCED DIRECTIVE [...] Panel - Chemistry sodium, serum 127 mmol/L 673-138 1602/07/28 potassium, serum 5.3 mmol/L 3.5-5.2 chloride, serum 92 mmol/L 98-107 carbon dioxide, venous blood 32.4 mmol/L 21.0-32.0 blood glucose 182 mg/dL 65-110 calcium, serum 9.4 mg/dL 8.5-10.1 urea nitrogen, blood 14 mg/dL 7-18 creatinine, serum 0.94 mg/dL 0.60-1.30 Lab Report: CBC, Comp. Metabolic Panel - Chemistry sodium, serum 129 mmol/L 978-573 1287/07/12 carbon dioxide, venous blood 27.8 mmol/L 21.0-32.0 [...] mg/dL Encounters Code Encounter Date Provider Facility CPT-65493 Level 4 Est. Patient 08:43:11 CDT Pelon Quach MD [facility] CPT-24662 Level 4 Est. Patient 14:27:30 CDT Pelon Quach MD [facility] CPT-82246 Level 3 Est. Patient 10:32:17 CDT Jaycee Garcia [facility] CPT-25709 Level 3 Est. Patient 10:15:07 CDT Pelon Quach MD [facility] CPT-86468 Level 4 Est. Patient 09:30:54 CDT Pelon Quach MD [facility] CPT-52794 Level 4 Est. Patient 14:34:25 CDT Pelon Quach MD [facility] CPT-59244 Level 3 Est. Patient 11:51:35 LASER BEAM MACHINE OPERATOR Rick Henson DO [facility] CPT-64011 Level 3 Est. Patient 12:13:33 LASER BEAM MACHINE OPERATOR Erik Baptiste MD [facility] CPT-81900 Level 3 Est. Patient 09:40:44 LASER BEAM MACHINE OPERATOR Jaycee Garcia [facility] CPT-31445 Level 3 Est. Patient 09:36:32 LASER BEAM MACHINE OPERATOR Jaycee Garcia [facility] CPT-93918 Level 4 Est. Patient 16:57:02 LASER BEAM MACHINE OPERATOR Pelon Quach MD -63773 Level 4 Est. Patient 22:19:34 CDT Pelon Quach MD -99248 Level 3 Est. Patient 00:34:41 CDT Pelon Quach MD -50882 Level 4 Est. Patient 11:19:14 CDT Pelon Quach MD -66788 Level 4 Est. Patient 16:43:30 LASER BEAM MACHINE OPERATOR Pelon Quach MD -59069 Level 4 Est. Patient 12:42:18 CDT Pelon Quach MD [facility]-88617 Level 4 Est. Patient 11:52:20 CDT Pelon Quach MD [facility]-64775 Level 4 Est. Patient 13:59:46 CDT Pelon Quach MD [facility]-27297 Level 4 Est. Patient 15:10:48 CDT Pelon Quach MD [facility]-95135 Level 4 Est. Patient 17:13:06 CDT Pelon Quach MD [facility]-71844 Level 4 Est. Patient 18:47:47 CDT Pelon Quach MD [facility]-06680 Level 3 Est. Patient 21:01:27 CDT Pelon Quach MD [facility] CPT-55899 Level 3 Est. Patient 14:07:03 CDT Taty Alvarado MD PhD [facility]-96606 Level 3 New Patient 21:39:52 LASER BEAM MACHINE OPERATOR Pelon Quach MD [facility]-38032 Level 3 Est. Patient 14:28:44 CDT Glenn Thornton MD [facility]-80745 Level 3 Est. Patient 16:35:00 CDT Glenn Thornton MD [facility] [place] CPT-81196 Level 4 New Patient 17:06:27 CDT Glenn Thornton MD [facility] [place] Procedures Code Procedure Name Date Entry Date Standard Description CPT-G0438 Initial Annual Wellness Exam 09:30:54 CDT CPT-64257 Prevnar 13 Intramuscular Suspension 14:34:25 CDT 12/27 CPT-11345 Chest 2V Frontal and Lat - XRAY USE ONLY 11:56:13 LASER BEAM MACHINE OPERATOR CPT-55331 Cystoscopy 14:28:44 CDT CPT-40787 Bladder Scan 14:28:44 CDT CPT-71342 Indwelling Cath Change 17:06:27 CDT CPT-23553 Cystoscopy 17:06:27 CDT
--- OUTSIDE RECORDS SUMMARY | 2018-06-22 12:45 | XMS REPORT | Clinical Summary ---
Author Author Admin, ONESIMO Organization [facility] [employer] [place] Address Unknown Phone Unavailable Allergies, Adverse Reactions, [...] Generic Name NDC Status Provider Patient Instruction HUMALOG KWIKPEN 100 UNIT/ML SUBCUTANEOUS SOLUTION PEN-INJECTOR inject 10 units subcutaneously before meals also sliding scale INSULIN LISPRO 38482877176 Active NICOLETTE Hitchcock Active NOVOLOG 100 UNIT/ML SUBCUTANEOUS SOLUTION 10 UNITS BID BEFORE BREAKFAST AND LUNCH INSULIN ASPART 99100580431 No Longer Active NICOLETTE Hitchcock Active NOVOLOG 100 UNIT/ML SUBCUTANEOUS SOLUTION 10 UNITS BEFORE SUPPER INSULIN ASPART 67076523087 No Longer Active NICOLETTE Hitchcock Active INVEGA 6 MG ORAL TABLET EXTENDED RELEASE 24 HOUR 1 po daily for schizophrenia PALIPERIDONE 52971924506 Active Pelon Quach MD Active LAMICTAL 25 MG ORAL TABLET 2 tabs by mouth twice a day LAMOTRIGINE 09855173135 No Longer Active Pelon Quach MD Active BACTROBAN 2 % EXTERNAL OINTMENT Apply to affected area BID 06/28 MUPIROCIN 81962611796 No Longer Active Pelon Quach MD Active BANOPHEN 25 MG ORAL TABLET 1 po every 6 hours PRN allergic reaction DIPHENHYDRAMINE HCL 83302425173 Active NICOLETTE Hitchcock Active INVEGA 6 MG ORAL TABLET EXTENDED RELEASE 24 HOUR 1 po daily for Schizophrenia PALIPERIDONE 05248219433 No Longer Active Pelon Quach MD Active TYLENOL 8 HOUR 650 MG ORAL TABLET EXTENDED RELEASE Take 1 tab po up to 3 times daily as needed ACETAMINOPHEN 60630000467 No Longer Active Pelon Quach MD Active IPRATROPIUM-ALBUTEROL 0.5-2.5 (3) MG/3ML INHALATION SOLUTION 1 neb treatment QID for cough Dx: J06.9 IPRATROPIUM-ALBUTEROL 21952367273 No Longer Active Pelon Quach MD Active BACTRIM DS 800-160 MG ORAL TABLET 1 tab by mouth twice daily 2016 TRIMETHOPRIM-SULFAMETHOXAZOLE 52009955041 No Longer Active Pelon Quach MD Active BACTRIM DS 800-160 MG ORAL TABLET 1 twice a day SULFAMETHOXAZOLE-TRIMETHOPRIM 99393818834 No Longer Active Pelon Quach MD Active IPRATROPIUM-ALBUTEROL 0.5-2.5 (3) MG/3ML INHALATION SOLUTION 1 neb treatment four times daily, for cough IPRATROPIUM-ALBUTEROL 69503377270 No Longer Active Jaycee Garcia APRN Active FUROSEMIDE 40 MG ORAL TABLET Take one by mouth daily FUROSEMIDE 23168735231 No Longer Active Jaycee Garcia APRN Active LANTUS 100 UNIT/ML SUBCUTANEOUS SOLUTION 20 SUBQ AT HS INSULIN GLARGINE 46958053806 Active Pelon Quach MD Active LAMICTAL 25 MG ORAL TABLET 2 tabs po BID for convulsions LAMOTRIGINE 78586914082 Active Jaycee Garcia APRN Active LASIX 20 MG ORAL TABLET 1 tablet by mouth every morning for edema FUROSEMIDE 48490392446 Active Jaycee Garcia APRN Active BUSPIRONE HCL 10 MG ORAL TABLET 1 tab by mouth BID BUSPIRONE HCL 31665926323 Active Jaycee Garcia APRN Active ADULT ASPIRIN EC LOW STRENGTH 81 MG ORAL TABLET DELAYED RELEASE Take one by mouth daily ASPIRIN 26017992646 No Longer Active Pelon Quach MD Active ASPIRIN 81 MG ORAL TABLET 1 po qd ASPIRIN 99907232130 Active Pelon Quach MD Active ZOFRAN 4 MG ORAL TABLET 1 po q6hr PRN Nausea ONDANSETRON HCL 15403766613 No Longer Active Pelon Quach MD Active TYLENOL 325 MG ORAL TABLET 1-2 pills by mouth every 6 hours if needed for pain /fever ACETAMINOPHEN 15339602342 No Longer Active Pelon Quach MD Active INVEGA 6 MG ORAL TABLET EXTENDED RELEASE 24 HOUR 1 TAB ONCE DAILY PALIPERIDONE 70207266371 No Longer Active Carly Ifeanyi Active TEGRETOL 200 MG ORAL TABLET by mouth twice a day CARBAMAZEPINE 74254522970 Active Taty Alvarado MD PhD Active FLOMAX 0.4 MG ORAL CAPSULE 1 Daily TAMSULOSIN HCL 81078358632 Active Marianela Juarez Active DILANTIN 100 MG ORAL CAPSULE Take one by mouth daily PHENYTOIN SODIUM EXTENDED 62204706076 No Longer Active Marianela Juarez Active DEPAKOTE SPRINKLES 125 MG ORAL CAPSULE DELAYED RELEASE SPRINKLE 4 capsules by mouth twice daily DIVALPROEX SODIUM 39195565143 No Longer Active Marianela Juarez Active LAMICTAL 200 MG ORAL TABLET 1 BY MOUTH TWICE A DAY LAMOTRIGINE 55330730340 Active Marianela Juarez Active LAMICTAL 100 MG ORAL TABLET by mouth twice a day LAMOTRIGINE 76763232427 No Longer Active Marianelachandrika Juarez Active LAMICTAL 150 MG ORAL TABLET by mouth twice a day LAMOTRIGINE 53888278497 No Longer Active Marianela Juarez Active DILANTIN 100 MG ORAL CAPSULE Take three by mouth daily PHENYTOIN SODIUM EXTENDED 32414359886 No Longer Active Marianela Juarez Active SENOKOT 8.6 MG ORAL TABLET take at bedtime SENNOSIDES 51801709513 Active Pelon Quach MD Active LIPITOR 20 MG ORAL TABLET take at bedtime ATORVASTATIN CALCIUM 24576996988 Active Glenn Thornton MD Active LISINOPRIL 2.5 MG ORAL TABLET Take one by mouth daily LISINOPRIL 29043794359 Active Glenn Thornton MD Active TRENTAL 400 MG CR-TABS by mouth twice a day PENTOXIFYLLINE 99595801385 Active Glenn Thornton MD Active KLOR-CON 10 10 MEQ ORAL TABLET EXTENDED RELEASE Take one by mouth daily POTASSIUM CHLORIDE 39592078544 Active Glenn Thornton MD Active DILANTIN 100 MG ORAL CAPSULE Take three by mouth daily DILANTIN 100 MG ORAL CAPSULE 150109 PHENYTOIN SODIUM EXTENDED Inactive LAMICTAL 150 MG ORAL TABLET by mouth twice a day LAMICTAL 150 MG ORAL TABLET 670218 LAMOTRIGINE Inactive LAMICTAL 100 MG ORAL TABLET by mouth twice a day LAMICTAL 100 MG ORAL TABLET 112039 LAMOTRIGINE Inactive DEPAKOTE SPRINKLES 125 MG ORAL CAPSULE DELAYED RELEASE SPRINKLE 4 capsules by mouth twice daily DEPAKOTE SPRINKLES 125 MG ORAL CAPSULE DELAYED RELEASE SPRINKLE 6752872 DIVALPROEX SODIUM Inactive DILANTIN 100 MG ORAL CAPSULE Take one by mouth daily DILANTIN 100 MG ORAL CAPSULE 998928 PHENYTOIN SODIUM EXTENDED Inactive INVEGA 6 MG ORAL TABLET EXTENDED RELEASE 24 HOUR 1 TAB ONCE DAILY INVEGA 6 MG ORAL TABLET EXTENDED RELEASE 24 HOUR PALIPERIDONE Inactive TYLENOL 325 MG ORAL TABLET 1-2 pills by mouth every 6 hours if needed for pain /fever TYLENOL 325 MG ORAL TABLET 123225 ACETAMINOPHEN Inactive ZOFRAN 4 MG ORAL TABLET 1 po q6hr PRN Nausea ZOFRAN 4 MG ORAL TABLET 510727 ONDANSETRON HCL Inactive ADULT ASPIRIN EC LOW STRENGTH 81 MG ORAL TABLET DELAYED RELEASE Take one by mouth daily ADULT ASPIRIN EC LOW STRENGTH 81 MG ORAL TABLET DELAYED RELEASE 974099 ASPIRIN Inactive FUROSEMIDE 40 MG ORAL TABLET Take one by mouth daily FUROSEMIDE 40 MG ORAL TABLET 480910 FUROSEMIDE Inactive BACTRIM DS 800-160 MG ORAL TABLET 1 twice a day BACTRIM DS 800-160 MG ORAL TABLET 774850 SULFAMETHOXAZOLE-TRIMETHOPRIM Inactive IPRATROPIUM-ALBUTEROL 0.5-2.5 (3) MG/3ML INHALATION SOLUTION 1 neb treatment QID for cough Dx: J06.9 IPRATROPIUM-ALBUTEROL 0.5-2.5 ( 3) MG/3ML INHALATION SOLUTION 2146103 IPRATROPIUM-ALBUTEROL Inactive TYLENOL 8 HOUR 650 MG [...] BID 06/28 BACTROBAN 2 % EXTERNAL OINTMENT 923065 MUPIROCIN Inactive LAMICTAL 25 MG ORAL TABLET 2 tabs by mouth twice a day LAMICTAL 25 MG ORAL TABLET 945732 LAMOTRIGINE Inactive NOVOLOG 100 UNIT/ML SUBCUTANEOUS SOLUTION 10 UNITS BEFORE SUPPER NOVOLOG 100 UNIT/ML SUBCUTANEOUS SOLUTION INSULIN ASPART Inactive NOVOLOG 100 UNIT/ML SUBCUTANEOUS SOLUTION 10 UNITS BID BEFORE BREAKFAST AND LUNCH NOVOLOG 100 UNIT/ML SUBCUTANEOUS SOLUTION INSULIN ASPART Inactive IPRATROPIUM-ALBUTEROL 0.5-2.5 (3) MG/3ML INHALATION SOLUTION 1 neb treatment four times daily, for cough IPRATROPIUM-ALBUTEROL 0.5- 2.5 (3) MG/3ML INHALATION SOLUTION 1384496 IPRATROPIUM-ALBUTEROL Inactive BACTRIM DS 800-160 MG ORAL TABLET 1 tab by mouth twice daily 2016 BACTRIM DS 800-160 MG ORAL TABLET 940783 TRIMETHOPRIM- SULFAMETHOXAZOLE Inactive Advance Directives Directive Description Start Date DURABLE POWER OF SENIOR MANAGEMENT CONSULTANT FOR HEALTHCARE PERMISSION TO SHARE ADVANCED [...] Panel - Chemistry sodium, serum 127 mmol/L 913-123 9345/07/28 potassium, serum 5.3 mmol/L 3.5-5.2 chloride, serum 92 mmol/L 98-107 carbon dioxide, venous blood 32.4 mmol/L 21.0-32.0 blood glucose 182 mg/dL 65-110 calcium, serum 9.4 mg/dL 8.5-10.1 urea nitrogen, blood 14 mg/dL 7-18 creatinine, serum 0.94 mg/dL 0.60-1.30 Lab Report: CBC, Comp. Metabolic Panel - Chemistry sodium, serum 129 mmol/L 782-669 9506/07/12 carbon dioxide, venous blood 27.8 mmol/L 21.0-32.0 [...] mg/dL Encounters Code Encounter Date Provider Facility CPT-61869 Level 4 Est. Patient 14:46:38 CDT Pelon Quach MD [facility] CPT-63913 Level 4 Est. Patient 08:43:11 CDT Pelon Quach MD [facility] CPT-76487 Level 4 Est. Patient 14:27:30 CDT Pelon Quach MD [facility] CPT-73602 Level 3 Est. Patient 10:32:17 CDT Jaycee Garcia [facility] CPT-41906 Level 3 Est. Patient 10:15:07 CDT Pelon Quach MD [facility] CPT-93795 Level 4 Est. Patient 09:30:54 CDT Pelon Quach MD [facility] CPT-41854 Level 4 Est. Patient 14:34:25 CDT Pelon Quach MD [facility] CPT-29535 Level 3 Est. Patient 11:51:35 BRIDGE ENGINEER Rick Henson DO [facility] CPT-87767 Level 3 Est. Patient 12:13:33 BRIDGE ENGINEER Erik Baptiste MD [facility] CPT-28619 Level 3 Est. Patient 09:40:44 BRIDGE ENGINEER Jaycee Garcia [facility] CPT-69418 Level 3 Est. Patient 09:36:32 BRIDGE ENGINEER Jaycee Garcia [facility] CPT-08829 Level 4 Est. Patient 16:57:02 BRIDGE ENGINEER Pelon Quach MD [facility] CPT-92295 Level 4 Est. Patient 22:19:34 CDT Pelon Quach MD [facility]-36527 Level 3 Est. Patient 00:34:41 CDT Pelon Quach MD [facility]-85303 Level 4 Est. Patient 11:19:14 CDT Pelon Quach MD [facility]-75014 Level 4 Est. Patient 16:43:30 BRIDGE ENGINEER Pelon Quach MD [facility]-84513 Level 4 Est. Patient 12:42:18 CDT Pelon Quach MD [facility]-13344 Level 4 Est. Patient 11:52:20 CDT Pelon Quach MD [facility]-50025 Level 4 Est. Patient 13:59:46 CDT Pelon Quach MD [facility]-80708 Level 4 Est. Patient 15:10:48 CDT Pelon Quach MD [facility]-81403 Level 4 Est. Patient 17:13:06 CDT Pelon Quach MD [facility]-03686 Level 4 Est. Patient 18:47:47 CDT Pelon Quach MD [facility]-69505 Level 3 Est. Patient 21:01:27 CDT Pelon Quach MD [facility]-10602 Level 3 Est. Patient 14:07:03 CDT Taty Alvarado MD PhD [facility] CPT-44385 Level 3 New Patient 21:39:52 BRIDGE ENGINEER Pelon Quach MD [facility]-07766 Level 3 Est. Patient 14:28:44 CDT Glenn Thornton MD [facility]-52520 Level 3 Est. Patient 16:35:00 CDT Glenn Thornton MD [facility] [place] CPT-44456 Level 4 New Patient 17:06:27 CDT Glenn Thornton MD [facility] [place] Procedures Code Procedure Name Date Entry Date Standard Description CPT-G0438 Initial Annual Wellness Exam 09:30:54 CDT CPT-27544 Prevnar 13 Intramuscular Suspension 14:34:25 CDT 12/27 CPT-37556 Chest 2V Frontal and Lat - XRAY USE ONLY 11:56:13 BRIDGE ENGINEER CPT-52111 Cystoscopy 14:28:44 CDT CPT-78759 Bladder Scan 14:28:44 CDT CPT-25762 Indwelling Cath Change 17:06:27 CDT CPT-51917 Cystoscopy 17:06:27 CDT
--- OUTSIDE RECORDS SUMMARY | 2018-06-22 12:46 | XMS REPORT | Clinical Summary ---
Author Author Admin, ONESIMO Organization [facility] [employer] Address Unknown Phone Unavailable Allergies, Adverse Reactions, [...] four times daily , for cough IPRATROPIUM-ALBUTEROL 83299269397 Active Jaycee Garcia APRN Active TYLENOL 8 HOUR 650 MG ORAL CR-TABS Take 1 tab po up to 3 times daily as needed ACETAMINOPHEN 85449534058 Active Jaycee Garcia APRN Active FUROSEMIDE 40 MG TABS Take one by mouth daily FUROSEMIDE 79120670095 No Longer Active Jaycee Garcia APRN Active LANTUS 100 UNIT/ML SC SOLN 20 SUBQ AT HS INSULIN GLARGINE 68516082233 Active Jaycee Garcia APRN Active LAMICTAL 25 MG ORAL TABS 2 tabs po BID for convulsions LAMOTRIGINE 79510112713 Active Jaycee Garcia APRN Active INVEGA 6 MG ORAL [id number] 1 po daily for Schizophrenia PALIPERIDONE 40898573892 Active Jaycee Garcia APRN Active LASIX 20 MG TAB 1 tablet by mouth every morning for edema FUROSEMIDE 60429428701 Active Jaycee Jose [facility] [facility] Active BUSPIRONE HCL 10 MG TABS 1 tab by mouth BID BUSPIRONE HCL 51977038557 Active Jaycee Garcia APRN Active NOVOLOG 100 UNIT/ML SC SOLN 10 UNITS BEFORE SUPPER INSULIN ASPART 42489693888 Active Jaycee Garcia [facility] HAND Active NOVOLOG 100 UNIT/ML SC SOLN 10 UNITS BID BEFORE BREAKFAST AND LUNCH INSULIN ASPART 21126119786 Active Jaycee Garcia APRN Active LAMICTAL 25 MG TABS 2 tabs by mouth twice a day LAMOTRIGINE 65661598745 Active Pelon Quach MD Active ADULT ASPIRIN EC LOW STRENGTH 81 MG TBEC Take one by mouth daily ASPIRIN 78996290434 No Longer Active Pelon Quach MD Active ASPIRIN 81 MG ORAL TABS 1 po qd ASPIRIN 79286396678 Active Pelon Quach MD Active ZOFRAN 4 MG TABS 1 po q6hr PRN Nausea ONDANSETRON HCL 13254451876 No Longer Active Pelon Quach MD Active TYLENOL 325 MG TAB 1-2 pills by mouth every 6 hours if needed for pain/fever ACETAMINOPHEN 60259004028 No Longer Active Pelon Quach MD Active INVEGA 6 MG ORAL [id number] 1 TAB ONCE DAILY PALIPERIDONE 24608397434 No Longer Active Carly Suggs Active TEGRETOL 200 MG TABS by mouth twice a day CARBAMAZEPINE 75411121171 Active Taty Alvarado MD PhD Active FLOMAX 0.4 MG CAPS 1 Daily TAMSULOSIN HCL 34158399849 Active Marianelachandrika Juarez Active DILANTIN 100 MG CAPS Take one by mouth daily PHENYTOIN SODIUM EXTENDED 14395852069 No Longer Active Marianela Juarez Active DEPAKOTE SPRINKLES 125 MG CPSP 4 capsules by mouth twice daily DIVALPROEX SODIUM 29268112746 No Longer Active Marianelachandrika Juarez Active LAMICTAL 200 MG ORAL TABS 1 BY MOUTH TWICE A DAY LAMOTRIGINE 81680273430 Active Marianela Juarez Active LAMICTAL 100 MG TABS by mouth twice a day LAMOTRIGINE 82934379533 No Longer Active Marianela Juarez Active LAMICTAL 150 MG TABS by mouth twice a day LAMOTRIGINE 59139030148 No Longer Active Marianela Juarez Active DILANTIN 100 MG CAPS Take three by mouth daily PHENYTOIN SODIUM EXTENDED 22291268813 No Longer Active Marianela Juarez Active SENOKOT 8.6 MG TABS take at bedtime SENNOSIDES 25239829444 Active Glnen Thornton MD Active LIPITOR 20 MG TABS take at bedtime ATORVASTATIN CALCIUM 30093369730 Active Glenn Thornton MD Active LISINOPRIL 2.5 MG TABS Take one by mouth daily LISINOPRIL 25073277104 Active Glenn Thornton MD Active TRENTAL 400 MG CR-TABS by mouth twice a day PENTOXIFYLLINE 53930780557 Active Glenn Thornton MD Active KLOR-CON 10 10 MEQ CR-TABS Take one by mouth daily POTASSIUM CHLORIDE 10496279706 Active Glenn Thornton MD Active DILANTIN 100 MG CAPS Take three by mouth daily DILANTIN 100 MG CAPS 876375 PHENYTOIN SODIUM EXTENDED Inactive LAMICTAL 150 MG TABS by mouth twice a day LAMICTAL 150 MG TABS 19831025 LAMOTRIGINE Inactive LAMICTAL 100 MG TABS by mouth twice a day LAMICTAL 100 MG TABS 19831024 LAMOTRIGINE Inactive DEPAKOTE SPRINKLES 125 MG CPSP 4 capsules by mouth twice daily DEPAKOTE SPRINKLES 125 MG CPSP 8607711 DIVALPROEX SODIUM Inactive DILANTIN 100 MG CAPS Take one by mouth daily DILANTIN 100 MG CAPS 159668 PHENYTOIN SODIUM EXTENDED Inactive INVEGA 6 MG ORAL [id number] 1 TAB ONCE DAILY INVEGA 6 MG ORAL [id number] PALIPERIDONE Inactive TYLENOL 325 MG TAB 1-2 pills by mouth every 6 hours if needed for pain/fever TYLENOL 325 MG TAB 129204 ACETAMINOPHEN Inactive ZOFRAN 4 MG TABS 1 po q6hr PRN Nausea ZOFRAN 4 MG TABS 146562 ONDANSETRON HCL Inactive ADULT ASPIRIN EC LOW STRENGTH 81 MG TBEC Take one by mouth daily ADULT ASPIRIN EC LOW STRENGTH 81 MG TBEC 373156 ASPIRIN Inactive FUROSEMIDE 40 MG TABS Take one by mouth daily FUROSEMIDE 40 MG TABS 102518 FUROSEMIDE Inactive Advance Directives Directive Description Start Date DURABLE POWER OF PORTABLE GRINDING MACHINE OPERATOR FOR HEALTHCARE PERMISSION TO SHARE ADVANCED [...] Outside labs entered on flowsheet - Chemistry aspartate aminotransferase (SGOT), serum 31 U/L alanine aminotransferase (SGPT), serum 23 U/L alkaline phosphatase, serum 54 U/L cholesterol, serum 255 mg/dL HDL cholesterol, serum 100 mg/dL LDL cholesterol, serum 147.6 mg/dL triglyceride, serum, fasting 37 mg/dL creatinine, serum 0.6 mg/dL blood glucose 120 mg/dL chloride, serum 4.2 mmol/L potassium, serum 132 mmol/L hemoglobin A1C, blood, as % of total [...] mg/dL Encounters Code Encounter Date Provider Facility CPT-38183 Level 3 Est. Patient 09:40:44 PLAY READER Jaycee Garcia [facility] CPT-42576 Level 3 Est. Patient 09:36:32 PLAY READER Jaycee Garcia [facility] CPT-50561 Level 4 Est. Patient 16:57:02 PLAY READER Pelon Quach MD [facility] CPT-60512 Level 4 Est. Patient 22:19:34 CDT Pelon Quach MD [facility] CPT-34620 Level 3 Est. Patient 00:34:41 CDT Pelon Quach MD [facility] CPT-91829 Level 4 Est. Patient 11:19:14 CDT Pelon Quach MD [facility] CPT-20546 Level 4 Est. Patient 16:43:30 PLAY READER Pelon Quach MD [facility] CPT-85436 Level 4 Est. Patient 12:42:18 CDT Pelon Quach MD [facility] CPT-81949 Level 4 Est. Patient 11:52:20 CDT Pelon Quach MD [facility] CPT-21231 Level 4 Est. Patient 13:59:46 CDT Pelon Quach MD [facility] CPT-69831 Level 4 Est. Patient 15:10:48 CDT Pelon Quach MD [facility] CPT-08610 Level 4 Est. Patient 17:13:06 CDT Pelon Quach MD [facility] CPT-06666 Level 4 Est. Patient 18:47:47 CDT Pelon Quach MD [facility] CPT-61938 Level 3 Est. Patient 21:01:27 CDT Pelon Quach MD [facility] CPT-72200 Level 3 Est. Patient 14:07:03 CDT Taty Alvarado MD PhD [facility] CPT-02344 Level 3 New Patient 21:39:52 PLAY READER Pelon Quach MD [facility] CPT-68714 Level 3 Est. Patient 14:28:44 CDT Glenn Thornton MD [facility] CPT-41178 Level 3 Est. Patient 16:35:00 CDT Glenn Thornton MD [facility] CPT-49829 Level 4 New Patient 17:06:27 CDT Glenn Thornton MD [facility] Procedures Code Procedure Name Date Entry Date Standard Description CPT-66737 Cystoscopy 14:28:44 CDT CPT-44285 Bladder Scan 14:28:44 CDT CPT-40405 Indwelling Cath Change 17:06:27 CDT CPT-03519 Cystoscopy 17:06:27 CDT
--- OUTSIDE RECORDS SUMMARY | 2018-06-22 12:47 | XMS REPORT | Clinical Summary ---
Author Author Admin, ONESIMO Organization [facility] [employer] Address Unknown Phone Unavailable Allergies, Adverse Reactions, [...] unspecified Blister, foot/toe w/o infection 917.2 Active Ttay Alvarado MD PhD Blister of foot and [...] TABS 1 twice a day SULFAMETHOXAZOLE- TRIMETHOPRIM 51564718395 Active Erik Baptiste MD Active IPRATROPIUM-ALBUTEROL 0.5-2.5 (3) MG/3ML INH SOLN 1 neb treatment QID for cough Dx: J06.9 IPRATROPIUM-ALBUTEROL 42211595671 Active NICOLETTE Hitchcock Active IPRATROPIUM-ALBUTEROL 0.5-2.5 (3) MG/3ML SOLN 1 neb treatment four times daily , for cough IPRATROPIUM-ALBUTEROL 59044578796 No Longer Active Jaycee Garcia APRN Active TYLENOL 8 HOUR 650 MG ORAL CR-TABS Take 1 tab po up to 3 times daily as needed ACETAMINOPHEN 14161026986 Active Jayceehugo Garcia APRN Active FUROSEMIDE 40 MG TABS Take one by mouth daily FUROSEMIDE 44182468876 No Longer Active Jaycee Jose VICTORINO Active LANTUS 100 UNIT/ML SC SOLN 20 SUBQ AT HS INSULIN GLARGINE 26957887176 Active Jaycee Garcia APRN Active LAMICTAL 25 MG ORAL TABS 2 tabs po BID for convulsions LAMOTRIGINE 02893552375 Active Jayceehugo Garcia APRN Active INVEGA 6 MG ORAL [id number] 1 po daily for Schizophrenia PALIPERIDONE 52703020846 Active Jayceehugo Garcia APRN Active LASIX 20 MG TAB 1 tablet by mouth every morning for edema FUROSEMIDE 11893792001 Active Jaycee Garcia APRN Active BUSPIRONE HCL 10 MG TABS 1 tab by mouth BID BUSPIRONE HCL 59355795168 Active Jaycee Jose VICTORINO Active NOVOLOG 100 UNIT/ML SC SOLN 10 UNITS BEFORE SUPPER INSULIN ASPART 10014875706 Active Jaycee Jose VICTORINO Active NOVOLOG 100 UNIT/ML SC SOLN 10 UNITS BID BEFORE BREAKFAST AND LUNCH INSULIN ASPART 20914935950 Active Jayceehugo Garcia APRN Active LAMICTAL 25 MG TABS 2 tabs by mouth twice a day LAMOTRIGINE 36116762644 Active Pelon Quach MD Active ADULT ASPIRIN EC LOW STRENGTH 81 MG TBEC Take one by mouth daily ASPIRIN 73291843500 No Longer Active Pelon Quach MD Active ASPIRIN 81 MG ORAL TABS 1 po qd ASPIRIN 70305955213 Active Pelon Quach MD Active ZOFRAN 4 MG TABS 1 po q6hr PRN Nausea ONDANSETRON HCL 68455378664 No Longer Active Pelon Quach MD Active TYLENOL 325 MG TAB 1-2 pills by mouth every 6 hours if needed for pain/fever ACETAMINOPHEN 20953199216 No Longer Active Pelon Quach MD Active INVEGA 6 MG ORAL [id number] 1 TAB ONCE DAILY PALIPERIDONE 07172285870 No Longer Active Carly Suggs Active TEGRETOL 200 MG TABS by mouth twice a day CARBAMAZEPINE 18431916125 Active Taty Alvarado MD PhD Active FLOMAX 0.4 MG CAPS 1 Daily TAMSULOSIN HCL 55442704544 Active Marianelachandrika Juaerz Active DILANTIN 100 MG CAPS Take one by mouth daily PHENYTOIN SODIUM EXTENDED 06351681864 No Longer Active Marianela Juarez Active DEPAKOTE SPRINKLES 125 MG CPSP 4 capsules by mouth twice daily DIVALPROEX SODIUM 34417551930 No Longer Active Marianela Juarez Active LAMICTAL 200 MG ORAL TABS 1 BY MOUTH TWICE A DAY LAMOTRIGINE 39784937477 Active Marianelachandrika Juarez Active LAMICTAL 100 MG TABS by mouth twice a day LAMOTRIGINE 15816198062 No Longer Active Marianelachandrika Juarez Active LAMICTAL 150 MG TABS by mouth twice a day LAMOTRIGINE 59454513821 No Longer Active Marianela Juarez Active DILANTIN 100 MG CAPS Take three by mouth daily PHENYTOIN SODIUM EXTENDED 29500874226 No Longer Active Marianela Juarez Active SENOKOT 8.6 MG TABS take at bedtime SENNOSIDES 33630443038 Active Glenn Thornton MD Active LIPITOR 20 MG TABS take at bedtime ATORVASTATIN CALCIUM 43748102156 Active Glenn Thornton MD Active LISINOPRIL 2.5 MG TABS Take one by mouth daily LISINOPRIL 47080228272 Active Glenn Thornton MD Active TRENTAL 400 MG CR-TABS by mouth twice a day PENTOXIFYLLINE 86515393459 Active Glenn Thornton MD Active KLOR-CON 10 10 MEQ CR-TABS Take one by mouth daily POTASSIUM CHLORIDE 29649053996 Active Glenn Thornton MD Active DILANTIN 100 MG CAPS Take three by mouth daily DILANTIN 100 MG CAPS 532108 PHENYTOIN SODIUM EXTENDED Inactive LAMICTAL 150 MG TABS by mouth twice a day LAMICTAL 150 MG TABS 19831025 LAMOTRIGINE Inactive LAMICTAL 100 MG TABS by mouth twice a day LAMICTAL 100 MG TABS 19831024 LAMOTRIGINE Inactive DEPAKOTE SPRINKLES 125 MG CPSP 4 capsules by mouth twice daily DEPAKOTE SPRINKLES 125 MG CPSP 2564535 DIVALPROEX SODIUM Inactive DILANTIN 100 MG CAPS Take one by mouth daily DILANTIN 100 MG CAPS 663576 PHENYTOIN SODIUM EXTENDED Inactive INVEGA 6 MG ORAL [id number] 1 TAB ONCE DAILY INVEGA 6 MG ORAL [id number] PALIPERIDONE Inactive TYLENOL 325 MG TAB 1-2 pills by mouth every 6 hours if needed for pain/fever TYLENOL 325 MG TAB 086459 ACETAMINOPHEN Inactive ZOFRAN 4 MG TABS 1 po q6hr PRN Nausea ZOFRAN 4 MG TABS 560484 ONDANSETRON HCL Inactive ADULT ASPIRIN EC LOW STRENGTH 81 MG TBEC Take one by mouth daily ADULT ASPIRIN EC LOW STRENGTH 81 MG TBEC 426616 ASPIRIN Inactive FUROSEMIDE 40 MG TABS Take one by mouth daily FUROSEMIDE 40 MG TABS 919434 FUROSEMIDE Inactive IPRATROPIUM-ALBUTEROL 0.5-2.5 (3) MG/3ML SOLN 1 neb treatment four times daily , for cough IPRATROPIUM-ALBUTEROL 0.5-2.5 (3) MG/3ML SOLN 0385189 IPRATROPIUM-ALBUTEROL Inactive Advance Directives Directive Description Start Date DURABLE POWER OF DATA INTEGRITY ANALYST FOR HEALTHCARE PERMISSION TO SHARE ADVANCED [...] mg/dL Encounters Code Encounter Date Provider Facility CPT-[id number] Level 3 Est. Patient 11:51:35 FISH CLEANER Rick Henson DO [facility] CPT-71080 Level 3 Est. Patient 12:13:33 FISH CLEANER Erik Baptiste MD [facility] CPT-44869 Level 3 Est. Patient 09:40:44 FISH CLEANER Jaycee Garcia [facility] CPT-70952 Level 3 Est. Patient 09:36:32 FISH CLEANER Jaycee Garcia [facility] CPT-35518 Level 4 Est. Patient 16:57:02 FISH CLEANER Pelon Quach MD [facility] CPT-31100 Level 4 Est. Patient 22:19:34 CDT Pelon Quach MD [facility] CPT-89075 Level 3 Est. Patient 00:34:41 CDT Pelon Quach MD [facility] CPT-81958 Level 4 Est. Patient 11:19:14 CDT Pelon Quach MD [facility] CPT-03929 Level 4 Est. Patient 16:43:30 FISH CLEANER Pelon Quach MD [facility] CPT-16163 Level 4 Est. Patient 12:42:18 CDT Pelon Quach MD [facility] CPT-12446 Level 4 Est. Patient 11:52:20 CDT Pelon Quach MD [facility] CPT-10411 Level 4 Est. Patient 13:59:46 CDT Pelon Quach MD [facility] CPT-80454 Level 4 Est. Patient 15:10:48 CDT Pelon Quach MD [facility] CPT-03588 Level 4 Est. Patient 17:13:06 CDT Pelon Quach MD [facility] CPT-28455 Level 4 Est. Patient 18:47:47 CDT Pelon Quach MD [facility] CPT-57774 Level 3 Est. Patient 21:01:27 CDT Pelon Quach MD [facility] CPT-70037 Level 3 Est. Patient 14:07:03 CDT Taty Alvarado MD PhD [facility] CPT-95921 Level 3 New Patient 21:39:52 FISH CLEANER Pelon Quach MD [facility] CPT-50505 Level 3 Est. Patient 14:28:44 CDT Glenn Thornton MD [facility] CPT-46543 Level 3 Est. Patient 16:35:00 CDT Glenn Thornton MD [facility] CPT-83542 Level 4 New Patient 17:06:27 CDT Glenn Thornton MD [facility] Procedures Code Procedure Name Date Entry Date Standard Description CPT-86886 Chest 2V Frontal and Lat - XRAY USE ONLY 11:56:13 FISH CLEANER CPT-86832 Cystoscopy 14:28:44 CDT CPT-93659 Bladder Scan 14:28:44 CDT CPT-07587 Indwelling Cath Change 17:06:27 CDT CPT-36443 Cystoscopy 17:06:27 CDT
--- OUTSIDE RECORDS SUMMARY | 2018-06-22 12:49 | XMS REPORT | Clinical Summary ---
Author Author Admin, ONESIMO Organization [facility] [employer] Address Unknown Phone Unavailable Allergies, Adverse Reactions, [...] type, uncontrolled Post-op care V67.00 Active Pelon uQach MD Follow-up examination following surgery, unspecified Inguinal [...] TABS 1 twice a day SULFAMETHOXAZOLE- TRIMETHOPRIM 24894584917 Active Erik Baptiste MD Active IPRATROPIUM-ALBUTEROL 0.5-2.5 (3) MG/3ML INH SOLN 1 neb treatment QID for cough Dx: J06.9 IPRATROPIUM-ALBUTEROL 00999812768 Active NICOLETTE Hitchcock Active IPRATROPIUM-ALBUTEROL 0.5-2.5 (3) MG/3ML SOLN 1 neb treatment four times daily , for cough IPRATROPIUM-ALBUTEROL 14371794487 No Longer Active Jaycee Garcia APRN Active TYLENOL 8 HOUR 650 MG ORAL CR-TABS Take 1 tab po up to 3 times daily as needed ACETAMINOPHEN 90596687181 Active Jayceehugo Garcia APRN Active FUROSEMIDE 40 MG TABS Take one by mouth daily FUROSEMIDE 41489053978 No Longer Active Jaycee Jose VITCORINO Active LANTUS 100 UNIT/ML SC SOLN 20 SUBQ AT HS INSULIN GLARGINE 40732801533 Active Jaycee Garcia APRN Active LAMICTAL 25 MG ORAL TABS 2 tabs po BID for convulsions LAMOTRIGINE 06950592646 Active Jayceehugo Garcia APRN Active INVEGA 6 MG ORAL [id number] 1 po daily for Schizophrenia PALIPERIDONE 02321727303 Active Jayceehugo Garcia APRN Active LASIX 20 MG TAB 1 tablet by mouth every morning for edema FUROSEMIDE 94835811844 Active Jaycee Garcia APRN Active BUSPIRONE HCL 10 MG TABS 1 tab by mouth BID BUSPIRONE HCL 81743940894 Active Jaycee Jose VICTORINO Active NOVOLOG 100 UNIT/ML SC SOLN 10 UNITS BEFORE SUPPER INSULIN ASPART 46940387820 Active Jaycee Jose VICTORINO Active NOVOLOG 100 UNIT/ML SC SOLN 10 UNITS BID BEFORE BREAKFAST AND LUNCH INSULIN ASPART 08568171077 Active Jayceehugo Garcia APRN Active LAMICTAL 25 MG TABS 2 tabs by mouth twice a day LAMOTRIGINE 53780582733 Active Pelon Quach MD Active ADULT ASPIRIN EC LOW STRENGTH 81 MG TBEC Take one by mouth daily ASPIRIN 10981965233 No Longer Active Pelon Quach MD Active ASPIRIN 81 MG ORAL TABS 1 po qd ASPIRIN 43837499896 Active Pelon Quach MD Active ZOFRAN 4 MG TABS 1 po q6hr PRN Nausea ONDANSETRON HCL 83757949523 No Longer Active Pelon Quach MD Active TYLENOL 325 MG TAB 1-2 pills by mouth every 6 hours if needed for pain/fever ACETAMINOPHEN 32921850228 No Longer Active Pelon Quach MD Active INVEGA 6 MG ORAL [id number] 1 TAB ONCE DAILY PALIPERIDONE 68065620417 No Longer Active Carly Suggs Active TEGRETOL 200 MG TABS by mouth twice a day CARBAMAZEPINE 20993827209 Active Taty Alvarado MD PhD Active FLOMAX 0.4 MG CAPS 1 Daily TAMSULOSIN HCL 00170122203 Active Marianelachandrika Juarez Active DILANTIN 100 MG CAPS Take one by mouth daily PHENYTOIN SODIUM EXTENDED 41785690508 No Longer Active Marianela Juarez Active DEPAKOTE SPRINKLES 125 MG CPSP 4 capsules by mouth twice daily DIVALPROEX SODIUM 84582650898 No Longer Active Marianela Juarez Active LAMICTAL 200 MG ORAL TABS 1 BY MOUTH TWICE A DAY LAMOTRIGINE 45417084354 Active Marianelachandrika Juarez Active LAMICTAL 100 MG TABS by mouth twice a day LAMOTRIGINE 79313643019 No Longer Active Marianelachandrika Juarez Active LAMICTAL 150 MG TABS by mouth twice a day LAMOTRIGINE 47688729298 No Longer Active Marianela Juarez Active DILANTIN 100 MG CAPS Take three by mouth daily PHENYTOIN SODIUM EXTENDED 30500753842 No Longer Active Marianela Juarez Active SENOKOT 8.6 MG TABS take at bedtime SENNOSIDES 20117863938 Active Glenn Thornton MD Active LIPITOR 20 MG TABS take at bedtime ATORVASTATIN CALCIUM 15919476857 Active Glenn Thornton MD Active LISINOPRIL 2.5 MG TABS Take one by mouth daily LISINOPRIL 27941858033 Active Glenn Thornton MD Active TRENTAL 400 MG CR-TABS by mouth twice a day PENTOXIFYLLINE 44041105037 Active Glenn Thornton MD Active KLOR-CON 10 10 MEQ CR-TABS Take one by mouth daily POTASSIUM CHLORIDE 27466296307 Active Glenn Thornton MD Active DILANTIN 100 MG CAPS Take three by mouth daily DILANTIN 100 MG CAPS 385000 PHENYTOIN SODIUM EXTENDED Inactive LAMICTAL 150 MG TABS by mouth twice a day LAMICTAL 150 MG TABS 19831025 LAMOTRIGINE Inactive LAMICTAL 100 MG TABS by mouth twice a day LAMICTAL 100 MG TABS 19831024 LAMOTRIGINE Inactive DEPAKOTE SPRINKLES 125 MG CPSP 4 capsules by mouth twice daily DEPAKOTE SPRINKLES 125 MG CPSP 8753687 DIVALPROEX SODIUM Inactive DILANTIN 100 MG CAPS Take one by mouth daily DILANTIN 100 MG CAPS 315298 PHENYTOIN SODIUM EXTENDED Inactive INVEGA 6 MG ORAL [id number] 1 TAB ONCE DAILY INVEGA 6 MG ORAL [id number] PALIPERIDONE Inactive TYLENOL 325 MG TAB 1-2 pills by mouth every 6 hours if needed for pain/fever TYLENOL 325 MG TAB 558188 ACETAMINOPHEN Inactive ZOFRAN 4 MG TABS 1 po q6hr PRN Nausea ZOFRAN 4 MG TABS 601288 ONDANSETRON HCL Inactive ADULT ASPIRIN EC LOW STRENGTH 81 MG TBEC Take one by mouth daily ADULT ASPIRIN EC LOW STRENGTH 81 MG TBEC 114965 ASPIRIN Inactive FUROSEMIDE 40 MG TABS Take one by mouth daily FUROSEMIDE 40 MG TABS 203997 FUROSEMIDE Inactive IPRATROPIUM-ALBUTEROL 0.5-2.5 (3) MG/3ML SOLN 1 neb treatment four times daily , for cough IPRATROPIUM-ALBUTEROL 0.5-2.5 (3) MG/3ML SOLN 4592965 IPRATROPIUM-ALBUTEROL Inactive Advance Directives Directive Description Start Date DURABLE POWER OF INSULATION INSTALLER FOR HEALTHCARE PERMISSION TO SHARE ADVANCED DIRECTIVE [...] mg/dL Encounters Code Encounter Date Provider Facility CPT-67106 Level 3 Est. Patient 11:51:35 CLOTH CLASSER Rick Henson DO [facility] CPT-22373 Level 3 Est. Patient 12:13:33 CLOTH CLASSER Eirk Baptiste MD [facility] CPT-04662 Level 3 Est. Patient 09:40:44 CLOTH CLASSER Jaycee Garcia [facility] CPT-47577 Level 3 Est. Patient 09:36:32 CLOTH CLASSER Jaycee Garcia [facility] CPT-62187 Level 4 Est. Patient 16:57:02 CLOTH CLASSER Pelon Quach MD [facility] CPT-64491 Level 4 Est. Patient 22:19:34 CDT Pelon Quach MD [facility] CPT-27336 Level 3 Est. Patient 00:34:41 CDT Pelon Quach MD [facility] CPT-36949 Level 4 Est. Patient 11:19:14 CDT Pelon Quach MD [facility] CPT-69762 Level 4 Est. Patient 16:43:30 CLOTH CLASSER Pelon Quach MD [facility] CPT-34076 Level 4 Est. Patient 12:42:18 CDT Pelon Quach MD [facility] CPT-46140 Level 4 Est. Patient 11:52:20 CDT Pelon Quach MD [facility] CPT-68823 Level 4 Est. Patient 13:59:46 CDT Pelon Quach MD [facility] CPT-56157 Level 4 Est. Patient 15:10:48 CDT Pelon Quach MD [facility] CPT-86382 Level 4 Est. Patient 17:13:06 CDT Pelon Quach MD [facility] CPT-29052 Level 4 Est. Patient 18:47:47 CDT Pelon Quach MD [facility] CPT-55055 Level 3 Est. Patient 21:01:27 CDT Pelon Quach MD [facility] CPT-06514 Level 3 Est. Patient 14:07:03 CDT Taty Alvarado MD PhD [facility] CPT-64551 Level 3 New Patient 21:39:52 CLOTH CLASSER Pelon Quach MD [facility] CPT-54810 Level 3 Est. Patient 14:28:44 CDT Glenn Thornton MD [facility] CPT-80140 Level 3 Est. Patient 16:35:00 CDT Glenn Thornton MD [facility] CPT-39141 Level 4 New Patient 17:06:27 CDT Glenn Thornton MD [facility] [place] Procedures Code Procedure Name Date Entry Date Standard Description CPT-16634 Chest 2V Frontal and Lat - XRAY USE ONLY 11:56:13 CLOTH CLASSER CPT-96451 Cystoscopy 14:28:44 CDT CPT-84173 Bladder Scan 14:28:44 CDT CPT-51333 Indwelling Cath Change 17:06:27 CDT CPT-63981 Cystoscopy 17:06:27 CDT
--- OUTSIDE RECORDS SUMMARY | 2018-06-22 12:49 | XMS REPORT | Clinical Summary ---
Author Author Admin, ONESIMO Organization [facility] [employer] [place] Address Unknown Phone Unavailable Allergies, Adverse Reactions, [...] HOUR 1 po daily for schizophrenia PALIPERIDONE 93265665939 Active Pelon Quach MD Active LAMICTAL 25 MG TABS 2 tabs by mouth twice a day LAMOTRIGINE 88723378936 No Longer Active Pelon Quach MD Active BACTROBAN 2 % OINTMENT Apply to affected area BID MUPIROCIN 80761715235 No Longer Active Pelon Quach MD Active BANOPHEN 25 MG ORAL TABS 1 po every 6 hours PRN allergic reaction DIPHENHYDRAMINE HCL 61836180738 Active NICOLETTE Hitchcock Active INVEGA 6 MG ORAL [id number] 1 po daily for Schizophrenia PALIPERIDONE 37489201834 No Longer Active Pelon Quach MD Active TYLENOL 8 HOUR 650 MG ORAL CR-TABS Take 1 tab po up to 3 times daily as needed ACETAMINOPHEN 21856847731 No Longer Active Pelon Quach MD Active IPRATROPIUM-ALBUTEROL 0.5-2.5 (3) MG/3ML INH SOLN 1 neb treatment QID for cough Dx: J06.9 IPRATROPIUM-ALBUTEROL 41967749917 No Longer Active Pelon Quach MD Active BACTRIM DS 800-160 MG TAB 1 tab by mouth twice daily TRIMETHOPRIM-SULFAMETHOXAZOLE 14241630440 No Longer Active Pelon Quach MD Active BACTRIM DS 800-160 MG TABS 1 twice a day SULFAMETHOXAZOLE-TRIMETHOPRIM 42946793543 No Longer Active Pelon Quach MD Active IPRATROPIUM-ALBUTEROL 0.5-2.5 (3) MG/3ML SOLN 1 neb treatment four times daily , for cough IPRATROPIUM-ALBUTEROL 84996034645 No Longer Active Jaycee Garica APRN Active FUROSEMIDE 40 MG TABS Take one by mouth daily FUROSEMIDE 89053149150 No Longer Active Jaycee Garcia APRN Active LANTUS 100 UNIT/ML SC SOLN 20 SUBQ AT HS INSULIN GLARGINE 46602931288 Active Jaycee Garcia APRN Active LAMICTAL 25 MG ORAL TABS 2 tabs po BID for convulsions LAMOTRIGINE 42930761537 Active Jaycee Garcia APRN Active LASIX 20 MG TAB 1 tablet by mouth every morning for edema FUROSEMIDE 11004929619 Active Jaycee Garcia APRN Active BUSPIRONE HCL 10 MG TABS 1 tab by mouth BID BUSPIRONE HCL 45431410523 Active Jaycee Garcia APRN Active NOVOLOG 100 UNIT/ML SC SOLN 10 UNITS BEFORE SUPPER INSULIN ASPART 11681993700 Active Jaycee Garcia APRN Active NOVOLOG 100 UNIT/ML SC SOLN 10 UNITS BID BEFORE BREAKFAST AND LUNCH INSULIN ASPART 16973989448 Active Jaycee Garcia APRN Active ADULT ASPIRIN EC LOW STRENGTH 81 MG TBEC Take one by mouth daily ASPIRIN 85264579833 No Longer Active Pelon Quach MD Active ASPIRIN 81 MG ORAL TABS 1 po qd ASPIRIN 91459686860 Active Pelon Quach MD Active ZOFRAN 4 MG TABS 1 po q6hr PRN Nausea ONDANSETRON HCL 62649910995 No Longer Active Pelon Quach MD Active TYLENOL 325 MG TAB 1-2 pills by mouth every 6 hours if needed for pain/fever ACETAMINOPHEN 48446768957 No Longer Active Pelon Quach MD Active INVEGA 6 MG ORAL [id number] 1 TAB ONCE DAILY PALIPERIDONE 72646814948 No Longer Active Carly Suggs Active TEGRETOL 200 MG TABS by mouth twice a day CARBAMAZEPINE 97909646569 Active Taty Alvarado MD PhD Active FLOMAX 0.4 MG CAPS 1 Daily TAMSULOSIN HCL 68337999511 Active Marianela Juarez Active DILANTIN 100 MG CAPS Take one by mouth daily PHENYTOIN SODIUM EXTENDED 61242476077 No Longer Active Marianela Juarez Active DEPAKOTE SPRINKLES 125 MG CPSP 4 capsules by mouth twice daily DIVALPROEX SODIUM 91016113324 No Longer Active Marianelachandrika Juarez Active LAMICTAL 200 MG ORAL TABS 1 BY MOUTH TWICE A DAY LAMOTRIGINE 92978448455 Active Marianela Juarez Active LAMICTAL 100 MG TABS by mouth twice a day LAMOTRIGINE 33579988171 No Longer Active Marianela Juarez Active LAMICTAL 150 MG TABS by mouth twice a day LAMOTRIGINE 43253809077 No Longer Active Marianela Juarez Active DILANTIN 100 MG CAPS Take three by mouth daily PHENYTOIN SODIUM EXTENDED 81390839026 No Longer Active Marianela Juarez Active SENOKOT 8.6 MG TABS take at bedtime SENNOSIDES 39629096453 Active Glenn Thornton MD Active LIPITOR 20 MG TABS take at bedtime ATORVASTATIN CALCIUM 20354336154 Active Glenn Thornton MD Active LISINOPRIL 2.5 MG TABS Take one by mouth daily LISINOPRIL 02757943245 Active Glenn Thornton MD Active TRENTAL 400 MG CR-TABS by mouth twice a day PENTOXIFYLLINE 59296065154 Active Glenn Thornton MD Active KLOR-CON 10 10 MEQ CR-TABS Take one by mouth daily POTASSIUM CHLORIDE 98690879560 Active Glenn Thornton MD Active DILANTIN 100 MG CAPS Take three by mouth daily DILANTIN 100 MG CAPS 993309 PHENYTOIN SODIUM EXTENDED Inactive LAMICTAL 150 MG TABS by mouth twice a day LAMICTAL 150 MG TABS 637557 LAMOTRIGINE Inactive LAMICTAL 100 MG TABS by mouth twice a day LAMICTAL 100 MG TABS 677099 LAMOTRIGINE Inactive DEPAKOTE SPRINKLES 125 MG CPSP 4 capsules by mouth twice daily DEPAKOTE SPRINKLES 125 MG CPSP 7901948 DIVALPROEX SODIUM Inactive DILANTIN 100 MG CAPS Take one by mouth daily DILANTIN 100 MG CAPS 255613 PHENYTOIN SODIUM EXTENDED Inactive INVEGA 6 MG ORAL [id number] 1 TAB ONCE DAILY INVEGA 6 MG ORAL [id number] PALIPERIDONE Inactive TYLENOL 325 MG TAB 1-2 pills by mouth every 6 hours if needed for pain/fever TYLENOL 325 MG TAB 201326 ACETAMINOPHEN Inactive ZOFRAN 4 MG TABS 1 po q6hr PRN Nausea ZOFRAN 4 MG TABS 425681 ONDANSETRON HCL Inactive ADULT ASPIRIN EC LOW STRENGTH 81 MG TBEC Take one by mouth daily ADULT ASPIRIN EC LOW STRENGTH 81 MG TBEC 821733 ASPIRIN Inactive FUROSEMIDE 40 MG TABS Take one by mouth daily FUROSEMIDE 40 MG TABS 031352 FUROSEMIDE Inactive BACTRIM DS 800-160 MG TABS 1 twice a day BACTRIM DS 800-160 MG TABS 077866 SULFAMETHOXAZOLE-TRIMETHOPRIM Inactive IPRATROPIUM-ALBUTEROL 0.5-2.5 (3) MG/3ML INH SOLN 1 neb treatment QID for cough Dx: J06.9 IPRATROPIUM-ALBUTEROL 0.5-2.5 (3) MG/ 3ML INH SOLN 9879373 IPRATROPIUM-ALBUTEROL Inactive TYLENOL 8 HOUR 650 MG ORAL CR-TABS Take 1 tab po up to 3 times daily as needed TYLENOL 8 HOUR 650 MG ORAL CR-TABS ACETAMINOPHEN Inactive INVEGA 6 MG ORAL [id number] 1 po daily for Schizophrenia INVEGA 6 MG ORAL [id number] PALIPERIDONE Inactive BACTROBAN 2 % OINTMENT Apply to affected area BID BACTROBAN 2 % OINTMENT 590134 MUPIROCIN Inactive LAMICTAL 25 MG TABS 2 tabs by mouth twice a day LAMICTAL 25 MG TABS 003846 LAMOTRIGINE Inactive IPRATROPIUM-ALBUTEROL 0.5-2.5 (3) MG/3ML SOLN 1 neb treatment four times daily , for cough IPRATROPIUM-ALBUTEROL 0.5-2.5 (3) MG/3ML SOLN 7278403 IPRATROPIUM-ALBUTEROL Inactive BACTRIM DS 800-160 MG TAB 1 tab by mouth twice daily BACTRIM DS 800-160 MG TAB 620172 TRIMETHOPRIM-SULFAMETHOXAZOLE Inactive Advance Directives Directive Description Start Date DURABLE POWER OF HOME CARE MUSIC THERAPIST FOR HEALTHCARE PERMISSION TO SHARE ADVANCED DIRECTIVE [...] Panel - Chemistry sodium, serum 127 mmol/L 311-824 8211/07/28 potassium, serum 5.3 mmol/L 3.5-5.2 chloride, serum 92 mmol/L 98-107 carbon dioxide, venous blood 32.4 mmol/L 21.0-32.0 blood glucose 182 mg/dL 65-110 calcium, serum 9.4 mg/dL 8.5-10.1 urea nitrogen, blood 14 mg/dL 7-18 creatinine, serum 0.94 mg/dL 0.60-1.30 Lab Report: CBC, Comp. Metabolic Panel - Chemistry sodium, serum 129 mmol/L 003-015 3913/07/12 carbon dioxide, venous blood 27.8 mmol/L 21.0-32.0 [...] mg/dL Encounters Code Encounter Date Provider Facility CPT-62307 Level 4 Est. Patient 14:46:38 CDT Pelon Quach MD [facility] CPT-74867 Level 4 Est. Patient 08:43:11 CDT Pelon Quach MD [facility] CPT-60973 Level 4 Est. Patient 14:27:30 CDT Pelon Quach MD [facility] CPT-33822 Level 3 Est. Patient 10:32:17 CDT Jaycee Garcia [facility] [place] CPT-73912 Level 3 Est. Patient 10:15:07 CDT Pelon Quach MD [facility] CPT-43718 Level 4 Est. Patient 09:30:54 CDT Pelon Quach MD [facility] CPT-79918 Level 4 Est. Patient 14:34:25 CDT Pelon Quach MD [facility] CPT-57062 Level 3 Est. Patient 11:51:35 DEVOPS ENGINEER Rick Henson DO [facility] CPT-41448 Level 3 Est. Patient 12:13:33 DEVOPS ENGINEER Erik Baptiste MD [facility] CPT-37186 Level 3 Est. Patient 09:40:44 DEVOPS ENGINEER Jaycee Garcia [facility] [place] CPT-53627 Level 3 Est. Patient 09:36:32 DEVOPS ENGINEER Jaycee Garcia [facility] [place] CPT-78310 Level 4 Est. Patient 16:57:02 DEVOPS ENGINEER Pelon Quach MD [facility] CPT-81352 Level 4 Est. Patient 22:19:34 CDT Pelon Quach MD [facility]-62239 Level 3 Est. Patient 00:34:41 CDT Pelon Quach MD [facility]-95018 Level 4 Est. Patient 11:19:14 CDT Pelon Quach MD [facility]-10446 Level 4 Est. Patient 16:43:30 DEVOPS ENGINEER Pelon Quach MD [facility]-12289 Level 4 Est. Patient 12:42:18 CDT Pelon Quach MD [facility]-05087 Level 4 Est. Patient 11:52:20 CDT Pelon Quach MD [facility]-12781 Level 4 Est. Patient 13:59:46 CDT Pelon Quach MD [facility]-82693 Level 4 Est. Patient 15:10:48 CDT Pelon Quach MD [facility]-72572 Level 4 Est. Patient 17:13:06 CDT Pelon Quach MD [facility]-40552 Level 4 Est. Patient 18:47:47 CDT Pelon Quach MD [facility]-31976 Level 3 Est. Patient 21:01:27 CDT Pelon Quach MD [facility]-56408 Level 3 Est. Patient 14:07:03 CDT Taty Alvarado MD PhD [facility] CPT-99725 Level 3 New Patient 21:39:52 DEVOPS ENGINEER Pelon Quach MD [facility]-75062 Level 3 Est. Patient 14:28:44 CDT Glenn Thornton MD [facility]99043 Level 3 Est. Patient 16:35:00 CDT Glenn Thornton MD [facility] CPT-88407 Level 4 New Patient 17:06:27 CDT Glenn Thornton MD [facility] [place] Procedures Code Procedure Name Date Entry Date Standard Description CPT-G0438 Initial Annual Wellness Exam 09:30:54 CDT CPT-09292 Prevnar 13 Intramuscular Suspension 14:34:25 CDT 12/27 CPT-21069 Chest 2V Frontal and Lat - XRAY USE ONLY 11:56:13 DEVOPS ENGINEER CPT-32384 Cystoscopy 14:28:44 CDT CPT-96498 Bladder Scan 14:28:44 CDT CPT-12242 Indwelling Cath Change 17:06:27 CDT CPT-06636 Cystoscopy 17:06:27 CDT
--- OUTSIDE RECORDS SUMMARY | 2018-06-22 12:50 | XMS REPORT | Clinical Summary ---
Author Author Admin, ONESIMO Organization [facility] [employer] [place] Address Unknown Phone Unavailable Allergies, Adverse Reactions, [...] respiratory abnormality Preventive health care V70.0 Active Peoln Quach MD Routine general medical examination at [...] before meals also sliding scale INSULIN LISPRO 53293985023 Active NICOLETTE Hitchcock Active NOVOLOG 100 UNIT/ML SUBCUTANEOUS SOLUTION 10 UNITS BID BEFORE BREAKFAST AND LUNCH INSULIN ASPART 15900961012 No Longer Active NICOLETTE Hitchcock Active NOVOLOG 100 UNIT/ML SUBCUTANEOUS SOLUTION 10 UNITS BEFORE SUPPER INSULIN ASPART 77325186375 No Longer Active NICOLETTE Hitchcock Active INVEGA 6 MG ORAL TABLET EXTENDED RELEASE 24 HOUR 1 po daily for schizophrenia PALIPERIDONE 00174285783 Active Pelon Quach MD Active LAMICTAL 25 MG ORAL TABLET 2 tabs by mouth twice a day LAMOTRIGINE 44401385693 No Longer Active Pelon Quach MD Active BACTROBAN 2 % EXTERNAL OINTMENT Apply to affected area BID 06/28 MUPIROCIN 06598998865 No Longer Active Pelon Quach MD Active BANOPHEN 25 MG ORAL TABLET 1 po every 6 hours PRN allergic reaction DIPHENHYDRAMINE HCL 08456028334 Active NICOLETTE Hitchcock Active INVEGA 6 MG ORAL TABLET EXTENDED RELEASE 24 HOUR 1 po daily for Schizophrenia PALIPERIDONE 23667762755 No Longer Active Pelon Quach MD Active TYLENOL 8 HOUR 650 MG ORAL TABLET EXTENDED RELEASE Take 1 tab po up to 3 times daily as needed ACETAMINOPHEN 62579448865 No Longer Active Pelon Quach MD Active IPRATROPIUM-ALBUTEROL 0.5-2.5 (3) MG/3ML INHALATION SOLUTION 1 neb treatment QID for cough Dx: J06.9 IPRATROPIUM-ALBUTEROL 85543786110 No Longer Active Pelon Quach MD Active BACTRIM DS 800-160 MG ORAL TABLET 1 tab by mouth twice daily 2016 TRIMETHOPRIM-SULFAMETHOXAZOLE 19208803786 No Longer Active Pelon Quach MD Active BACTRIM DS 800-160 MG ORAL TABLET 1 twice a day SULFAMETHOXAZOLE-TRIMETHOPRIM 37392600302 No Longer Active Pelon Quach MD Active IPRATROPIUM-ALBUTEROL 0.5-2.5 (3) MG/3ML INHALATION SOLUTION 1 neb treatment four times daily, for cough IPRATROPIUM-ALBUTEROL 95921854656 No Longer Active Jaycee Garcia APRN Active FUROSEMIDE 40 MG ORAL TABLET Take one by mouth daily FUROSEMIDE 20105539398 No Longer Active Jaycee Garcia APRN Active LANTUS 100 UNIT/ML SUBCUTANEOUS SOLUTION 20 SUBQ AT HS INSULIN GLARGINE 91256692992 Active Pelon Quach MD Active LAMICTAL 25 MG ORAL TABLET 2 tabs po BID for convulsions LAMOTRIGINE 80834084600 Active Jaycee Garcia APRN Active LASIX 20 MG ORAL TABLET 1 tablet by mouth every morning for edema FUROSEMIDE 15622161795 Active Jaycee Garcia APRN Active BUSPIRONE HCL 10 MG ORAL TABLET 1 tab by mouth BID BUSPIRONE HCL 44068154292 Active Jaycee Garcia APRN Active ADULT ASPIRIN EC LOW STRENGTH 81 MG ORAL TABLET DELAYED RELEASE Take one by mouth daily ASPIRIN 79963232916 No Longer Active Pelon Quach MD Active ASPIRIN 81 MG ORAL TABLET 1 po qd ASPIRIN 43339694050 Active Pelon Quach MD Active ZOFRAN 4 MG ORAL TABLET 1 po q6hr PRN Nausea ONDANSETRON HCL 36337597406 No Longer Active Pelon Quach MD Active TYLENOL 325 MG ORAL TABLET 1-2 pills by mouth every 6 hours if needed for pain /fever ACETAMINOPHEN 73100662194 No Longer Active Pelon Quach MD Active INVEGA 6 MG ORAL TABLET EXTENDED RELEASE 24 HOUR 1 TAB ONCE DAILY PALIPERIDONE 18616779449 No Longer Active Carly Ifeanyi Active TEGRETOL 200 MG ORAL TABLET by mouth twice a day CARBAMAZEPINE 76295537311 Active Taty Alvarado MD PhD Active FLOMAX 0.4 MG ORAL CAPSULE 1 Daily TAMSULOSIN HCL 28344675182 Active Marianela Juarez Active DILANTIN 100 MG ORAL CAPSULE Take one by mouth daily PHENYTOIN SODIUM EXTENDED 50786353579 No Longer Active Marianela Juarez Active DEPAKOTE SPRINKLES 125 MG ORAL CAPSULE DELAYED RELEASE SPRINKLE 4 capsules by mouth twice daily DIVALPROEX SODIUM 28199856503 No Longer Active Marianela Juarez Active LAMICTAL 200 MG ORAL TABLET 1 BY MOUTH TWICE A DAY LAMOTRIGINE 17166784556 Active Marianela Juarez Active LAMICTAL 100 MG ORAL TABLET by mouth twice a day LAMOTRIGINE 27313964403 No Longer Active Marianelachandrika Juarez Active LAMICTAL 150 MG ORAL TABLET by mouth twice a day LAMOTRIGINE 44508266302 No Longer Active Marianela Juarez Active DILANTIN 100 MG ORAL CAPSULE Take three by mouth daily PHENYTOIN SODIUM EXTENDED 20750814239 No Longer Active Marianela Juarez Active SENOKOT 8.6 MG ORAL TABLET take at bedtime SENNOSIDES 77747302340 Active Pelon Quach MD Active LIPITOR 20 MG ORAL TABLET take at bedtime ATORVASTATIN CALCIUM 86619992626 Active Glenn Thornton MD Active LISINOPRIL 2.5 MG ORAL TABLET Take one by mouth daily LISINOPRIL 24166328606 Active Glenn Thornton MD Active TRENTAL 400 MG CR-TABS by mouth twice a day PENTOXIFYLLINE 89413393907 Active Glenn Thornton MD Active KLOR-CON 10 10 MEQ ORAL TABLET EXTENDED RELEASE Take one by mouth daily POTASSIUM CHLORIDE 38956532474 Active Glenn Thornton MD Active DILANTIN 100 MG ORAL CAPSULE Take three by mouth daily DILANTIN 100 MG ORAL CAPSULE 547104 PHENYTOIN SODIUM EXTENDED Inactive LAMICTAL 150 MG ORAL TABLET by mouth twice a day LAMICTAL 150 MG ORAL TABLET 491147 LAMOTRIGINE Inactive LAMICTAL 100 MG ORAL TABLET by mouth twice a day LAMICTAL 100 MG ORAL TABLET 978366 LAMOTRIGINE Inactive DEPAKOTE SPRINKLES 125 MG ORAL CAPSULE DELAYED RELEASE SPRINKLE 4 capsules by mouth twice daily DEPAKOTE SPRINKLES 125 MG ORAL CAPSULE DELAYED RELEASE SPRINKLE 2865629 DIVALPROEX SODIUM Inactive DILANTIN 100 MG ORAL CAPSULE Take one by mouth daily DILANTIN 100 MG ORAL CAPSULE 192953 PHENYTOIN SODIUM EXTENDED Inactive INVEGA 6 MG ORAL TABLET EXTENDED RELEASE 24 HOUR 1 TAB ONCE DAILY INVEGA 6 MG ORAL TABLET EXTENDED RELEASE 24 HOUR PALIPERIDONE Inactive TYLENOL 325 MG ORAL TABLET 1-2 pills by mouth every 6 hours if needed for pain /fever TYLENOL 325 MG ORAL TABLET 917017 ACETAMINOPHEN Inactive ZOFRAN 4 MG ORAL TABLET 1 po q6hr PRN Nausea ZOFRAN 4 MG ORAL TABLET 272415 ONDANSETRON HCL Inactive ADULT ASPIRIN EC LOW STRENGTH 81 MG ORAL TABLET DELAYED RELEASE Take one by mouth daily ADULT ASPIRIN EC LOW STRENGTH 81 MG ORAL TABLET DELAYED RELEASE 276048 ASPIRIN Inactive FUROSEMIDE 40 MG ORAL TABLET Take one by mouth daily FUROSEMIDE 40 MG ORAL TABLET 617783 FUROSEMIDE Inactive BACTRIM DS 800-160 MG ORAL TABLET 1 twice a day BACTRIM DS 800-160 MG ORAL TABLET 664091 SULFAMETHOXAZOLE-TRIMETHOPRIM Inactive IPRATROPIUM-ALBUTEROL 0.5-2.5 (3) MG/3ML INHALATION SOLUTION 1 neb treatment QID for cough Dx: J06.9 IPRATROPIUM-ALBUTEROL 0.5-2.5 ( 3) MG/3ML INHALATION SOLUTION 8007843 IPRATROPIUM-ALBUTEROL Inactive TYLENOL 8 HOUR 650 MG [...] BID 06/28 BACTROBAN 2 % EXTERNAL OINTMENT 244052 MUPIROCIN Inactive LAMICTAL 25 MG ORAL TABLET 2 tabs by mouth twice a day LAMICTAL 25 MG ORAL TABLET 208984 LAMOTRIGINE Inactive NOVOLOG 100 UNIT/ML SUBCUTANEOUS SOLUTION 10 UNITS BEFORE SUPPER NOVOLOG 100 UNIT/ML SUBCUTANEOUS SOLUTION INSULIN ASPART Inactive NOVOLOG 100 UNIT/ML SUBCUTANEOUS SOLUTION 10 UNITS BID BEFORE BREAKFAST AND LUNCH NOVOLOG 100 UNIT/ML SUBCUTANEOUS SOLUTION INSULIN ASPART Inactive IPRATROPIUM-ALBUTEROL 0.5-2.5 (3) MG/3ML INHALATION SOLUTION 1 neb treatment four times daily, for cough IPRATROPIUM-ALBUTEROL 0.5- 2.5 (3) MG/3ML INHALATION SOLUTION 0122336 IPRATROPIUM-ALBUTEROL Inactive BACTRIM DS 800-160 MG ORAL TABLET 1 tab by mouth twice daily 2016 BACTRIM DS 800-160 MG ORAL TABLET 363085 TRIMETHOPRIM- SULFAMETHOXAZOLE Inactive Advance Directives Directive Description Start Date DURABLE POWER OF STRETCH BOX TENDER FOR HEALTHCARE PERMISSION TO SHARE ADVANCED [...] Panel - Chemistry sodium, serum 127 mmol/L 382-581 8252/07/28 potassium, serum 5.3 mmol/L 3.5-5.2 chloride, serum 92 mmol/L 98-107 carbon dioxide, venous blood 32.4 mmol/L 21.0-32.0 blood glucose 182 mg/dL 65-110 calcium, serum 9.4 mg/dL 8.5-10.1 urea nitrogen, blood 14 mg/dL 7-18 creatinine, serum 0.94 mg/dL 0.60-1.30 Lab Report: CBC, Comp. Metabolic Panel - Chemistry sodium, serum 129 mmol/L 972-290 2006/07/12 carbon dioxide, venous blood 27.8 mmol/L 21.0-32.0 [...] mg/dL Encounters Code Encounter Date Provider Facility CPT-66220 Level 4 Est. Patient 14:46:38 CDT Pelon Quach MD [facility] CPT-34047 Level 4 Est. Patient 08:43:11 CDT Pelon Quach MD [facility] CPT-28133 Level 4 Est. Patient 14:27:30 CDT Pelon Quach MD [facility] CPT-84777 Level 3 Est. Patient 10:32:17 CDT Jaycee Garcia [facility] CPT-37315 Level 3 Est. Patient 10:15:07 CDT Pelon Quach MD [facility] CPT-25858 Level 4 Est. Patient 09:30:54 CDT Pelon Quach MD [facility] CPT-19706 Level 4 Est. Patient 14:34:25 CDT Pelon Quach MD [facility] CPT-43510 Level 3 Est. Patient 11:51:35 HANDLE BENDER Rick Henson DO [facility] CPT-84503 Level 3 Est. Patient 12:13:33 HANDLE BENDER Erik Baptiste MD [facility] CPT-12362 Level 3 Est. Patient 09:40:44 HANDLE BENDER Jaycee Garcia [facility] CPT-38223 Level 3 Est. Patient 09:36:32 HANDLE BENDER Jaycee Garcia [facility] CPT-12148 Level 4 Est. Patient 16:57:02 HANDLE BENDER Pelon Quach MD [facility] CPT-60692 Level 4 Est. Patient 22:19:34 CDT Pelon Quach MD [facility]-94026 Level 3 Est. Patient 00:34:41 CDT Pelon Quach MD [facility]-95123 Level 4 Est. Patient 11:19:14 CDT Pelon Quach MD [facility]-80848 Level 4 Est. Patient 16:43:30 HANDLE BENDER Pelon Quach MD [facility]-96940 Level 4 Est. Patient 12:42:18 CDT Pelon Quach MD [facility]-23159 Level 4 Est. Patient 11:52:20 CDT Pelon Quach MD [facility]-98942 Level 4 Est. Patient 13:59:46 CDT Pelon Quach MD [facility]-95005 Level 4 Est. Patient 15:10:48 CDT Pelon Quach MD [facility]-50299 Level 4 Est. Patient 17:13:06 CDT Pelon Quach MD [facility]-07903 Level 4 Est. Patient 18:47:47 CDT Pelon Quach MD [facility]-36567 Level 3 Est. Patient 21:01:27 CDT Pelon Quach MD [facility]-07203 Level 3 Est. Patient 14:07:03 CDT Taty Alvarado MD PhD [facility] CPT-47265 Level 3 New Patient 21:39:52 HANDLE BENDER Pelon Quach MD [facility]-12578 Level 3 Est. Patient 14:28:44 CDT Glenn Thornton MD [facility]-97344 Level 3 Est. Patient 16:35:00 CDT Glenn Thornton MD [facility] [place] CPT-64019 Level 4 New Patient 17:06:27 CDT Glenn Thornton MD [facility] [place] Procedures Code Procedure Name Date Entry Date Standard Description CPT-G0438 Initial Annual Wellness Exam 09:30:54 CDT CPT-81348 Prevnar 13 Intramuscular Suspension 14:34:25 CDT 12/27 CPT-33894 Chest 2V Frontal and Lat - XRAY USE ONLY 11:56:13 HANDLE BENDER CPT-24571 Cystoscopy 14:28:44 CDT CPT-91927 Bladder Scan 14:28:44 CDT CPT-01744 Indwelling Cath Change 17:06:27 CDT CPT-67570 Cystoscopy 17:06:27 CDT
[2018-06-22] MEDS ORDERED: LACTATED RINGERS 1,000 ML IV ONE (12:51)
--- OUTSIDE RECORDS SUMMARY | 2018-06-22 12:52 | XMS REPORT | Clinical Summary ---
Author Author Admin, ONESIMO Organization [facility] [employer] Address Unknown Phone Unavailable Allergies, Adverse Reactions, [...] TABS 1 twice a day SULFAMETHOXAZOLE- TRIMETHOPRIM 21780693954 Active Erik Baptiste MD Active IPRATROPIUM-ALBUTEROL 0.5-2.5 (3) MG/3ML INH SOLN 1 neb treatment QID for cough Dx: J06.9 IPRATROPIUM-ALBUTEROL 68758386567 Active Jaycee Garcia APRN Active IPRATROPIUM-ALBUTEROL 0.5-2.5 (3) MG/3ML SOLN 1 neb treatment four times daily , for cough IPRATROPIUM-ALBUTEROL 97099544372 No Longer Active Jaycee Garcia APRN Active TYLENOL 8 HOUR 650 MG ORAL CR-TABS Take 1 tab po up to 3 times daily as needed ACETAMINOPHEN 83386520653 Active Jaycee Jose MATERIALS MANAGEMENT SUPERVISOR Active FUROSEMIDE 40 MG TABS Take one by mouth daily FUROSEMIDE 04482844286 No Longer Active Jaycee Garcia VICTORINO Active LANTUS 100 UNIT/ML SC SOLN 20 SUBQ AT HS INSULIN GLARGINE 30410378131 Active Jaycee Jose MATERIALS MANAGEMENT SUPERVISOR Active LAMICTAL 25 MG ORAL TABS 2 tabs po BID for convulsions LAMOTRIGINE 21493760273 Active Jaycee Garcia VICTORINO Active INVEGA 6 MG ORAL [id number] 1 po daily for Schizophrenia PALIPERIDONE 15545795482 Active Jaycee Garcia VICTORINO Active LASIX 20 MG TAB 1 tablet by mouth every morning for edema FUROSEMIDE 95575361937 Active Jayceehugo Garcia APRN Active BUSPIRONE HCL 10 MG TABS 1 tab by mouth BID BUSPIRONE HCL 39642925674 Active Jaycee Garcia VICTORINO Active NOVOLOG 100 UNIT/ML SC SOLN 10 UNITS BEFORE SUPPER INSULIN ASPART 93845702464 Active Jaycee Garcia VICTORINO Active NOVOLOG 100 UNIT/ML SC SOLN 10 UNITS BID BEFORE BREAKFAST AND LUNCH INSULIN ASPART 41981327735 Active Jaycee Garcia VICTORINO Active LAMICTAL 25 MG TABS 2 tabs by mouth twice a day LAMOTRIGINE 51097160100 Active Pelon Quach MD Active ADULT ASPIRIN EC LOW STRENGTH 81 MG TBEC Take one by mouth daily ASPIRIN 83631515356 No Longer Active Pelon Quach MD Active ASPIRIN 81 MG ORAL TABS 1 po qd ASPIRIN 20337092720 Active Pelon Quach MD Active ZOFRAN 4 MG TABS 1 po q6hr PRN Nausea ONDANSETRON HCL 79452768011 No Longer Active Pelon Quach MD Active TYLENOL 325 MG TAB 1-2 pills by mouth every 6 hours if needed for pain/fever ACETAMINOPHEN 62804500594 No Longer Active Pelon Quach MD Active INVEGA 6 MG ORAL [id number] 1 TAB ONCE DAILY PALIPERIDONE 55262338351 No Longer Active Carly Suggs Active TEGRETOL 200 MG TABS by mouth twice a day CARBAMAZEPINE 33585925321 Active Taty Alvarado MD PhD Active FLOMAX 0.4 MG CAPS 1 Daily TAMSULOSIN HCL 41291689219 Active Marianelachandrika Juarez Active DILANTIN 100 MG CAPS Take one by mouth daily PHENYTOIN SODIUM EXTENDED 21301625545 No Longer Active Marianelachandrika Juarez Active DEPAKOTE SPRINKLES 125 MG CPSP 4 capsules by mouth twice daily DIVALPROEX SODIUM 29286627247 No Longer Active Marianelachandrika Juarez Active LAMICTAL 200 MG ORAL TABS 1 BY MOUTH TWICE A DAY LAMOTRIGINE 73979744958 Active Marianelachandrika Juarez Active LAMICTAL 100 MG TABS by mouth twice a day LAMOTRIGINE 81178442917 No Longer Active Marianelachandrika Juarez Active LAMICTAL 150 MG TABS by mouth twice a day LAMOTRIGINE 81904786589 No Longer Active Marianelachandrika Juarez Active DILANTIN 100 MG CAPS Take three by mouth daily PHENYTOIN SODIUM EXTENDED 04555076799 No Longer Active Marianela Juarez Active SENOKOT 8.6 MG TABS take at bedtime SENNOSIDES 29150846777 Active Glenn Thornton MD Active LIPITOR 20 MG TABS take at bedtime ATORVASTATIN CALCIUM 93380484099 Active Glenn Thornton MD Active LISINOPRIL 2.5 MG TABS Take one by mouth daily LISINOPRIL 47335069993 Active Glenn Thornton MD Active TRENTAL 400 MG CR-TABS by mouth twice a day PENTOXIFYLLINE 02107986514 Active Glenn Thornton MD Active KLOR-CON 10 10 MEQ CR-TABS Take one by mouth daily POTASSIUM CHLORIDE 16439892804 Active Glenn Thornton MD Active DILANTIN 100 MG CAPS Take three by mouth daily DILANTIN 100 MG CAPS 737845 PHENYTOIN SODIUM EXTENDED Inactive LAMICTAL 150 MG TABS by mouth twice a day LAMICTAL 150 MG TABS 19831025 LAMOTRIGINE Inactive LAMICTAL 100 MG TABS by mouth twice a day LAMICTAL 100 MG TABS 19831024 LAMOTRIGINE Inactive DEPAKOTE SPRINKLES 125 MG CPSP 4 capsules by mouth twice daily DEPAKOTE SPRINKLES 125 MG CPSP 5272496 DIVALPROEX SODIUM Inactive DILANTIN 100 MG CAPS Take one by mouth daily DILANTIN 100 MG CAPS 204894 PHENYTOIN SODIUM EXTENDED Inactive INVEGA 6 MG ORAL [id number] 1 TAB ONCE DAILY INVEGA 6 MG ORAL [id number] PALIPERIDONE Inactive TYLENOL 325 MG TAB 1-2 pills by mouth every 6 hours if needed for pain/fever TYLENOL 325 MG TAB 531974 ACETAMINOPHEN Inactive ZOFRAN 4 MG TABS 1 po q6hr PRN Nausea ZOFRAN 4 MG TABS 653633 ONDANSETRON HCL Inactive ADULT ASPIRIN EC LOW STRENGTH 81 MG TBEC Take one by mouth daily ADULT ASPIRIN EC LOW STRENGTH 81 MG TBEC 469043 ASPIRIN Inactive FUROSEMIDE 40 MG TABS Take one by mouth daily FUROSEMIDE 40 MG TABS 506025 FUROSEMIDE Inactive IPRATROPIUM-ALBUTEROL 0.5-2.5 (3) MG/3ML SOLN 1 neb treatment four times daily , for cough IPRATROPIUM-ALBUTEROL 0.5-2.5 (3) MG/3ML SOLN 3067664 IPRATROPIUM-ALBUTEROL Inactive Advance Directives Directive Description Start Date DURABLE POWER OF FIREFIGHTING EQUIPMENT SPECIALIST FOR HEALTHCARE PERMISSION TO SHARE ADVANCED [...] Office Visit: 3 MONTH FU - Chemistry HDL cholesterol, serum, target level 35 mg/dL triglyceride, target level 200 mg/dL cholesterol, target level 200 mg/dL Office Visit: 6 MO CHECK UP - Basic LDL target level 100 mg/dL Office Visit: 6 MO CHECK UP - Chemistry HDL cholesterol, serum, target level 40 mg/dL triglyceride, target level 150 mg/dL cholesterol, target level 200 mg/dL Encounters Code Encounter Date Provider Facility CPT-16914 Level 3 Est. Patient 11:51:35 PEAR[facility]ER Rick Henson DO [facility] CPT-52826 Level 3 Est. Patient 12:13:33 PEARLER Erik Baptiste MD [facility] CPT-76029 Level 3 Est. Patient 09:40:44 PEARLER Jaycee Garcia [facility] CPT-50844 Level 3 Est. Patient 09:36:32 PEARLER Jaycee Garcia [facility] CPT-65433 Level 4 Est. Patient 16:57:02 PEARLER Pelon Quach MD [facility] CPT-89047 Level 4 Est. Patient 22:19:34 CDT Pelon Quach MD [facility] CPT-46708 Level 3 Est. Patient 00:34:41 CDT Pelon Quach MD [facility] CPT-90815 Level 4 Est. Patient 11:19:14 CDT Pelon Quach MD [facility] CPT-33156 Level 4 Est. Patient 16:43:30 PEARLER Pelon Quach MD [facility] CPT-98820 Level 4 Est. Patient 12:42:18 CDT Pelon Quach MD [facility] CPT-65764 Level 4 Est. Patient 11:52:20 CDT Pelon Quach MD [facility] CPT-21394 Level 4 Est. Patient 13:59:46 CDT Pelon Quach MD [facility] CPT-66125 Level 4 Est. Patient 15:10:48 CDT Pelon Quach MD [facility] CPT-97435 Level 4 Est. Patient 17:13:06 CDT Pelon Quach MD [facility] CPT-48610 Level 4 Est. Patient 18:47:47 CDT Pelon Quach MD [facility] CPT-98984 Level 3 Est. Patient 21:01:27 CDT Pelon Quach MD [facility] CPT-89755 Level 3 Est. Patient 14:07:03 CDT Taty Alvarado MD PhD [facility] CPT-93261 Level 3 New Patient 21:39:52 PEARLER Pelon Quach MD [facility] CPT-01695 Level 3 Est. Patient 14:28:44 CDT Glenn Thornton MD [facility] CPT-86668 Level 3 Est. Patient 16:35:00 CDT Glenn Thornton MD [facility] CPT-56385 Level 4 New Patient 17:06:27 CDT Glenn Thornton MD [facility] Procedures Code Procedure Name Date Entry Date Standard Description CPT-62548 Chest 2V Frontal and Lat - XRAY USE ONLY 11:56:13 PEARLER CPT-23985 Cystoscopy 14:28:44 CDT CPT-41755 Bladder Scan 14:28:44 CDT CPT-86524 Indwelling Cath Change 17:06:27 CDT CPT-50858 Cystoscopy 17:06:27 CDT
--- OUTSIDE RECORDS SUMMARY | 2018-06-22 12:53 | XMS REPORT | Clinical Summary ---
Author Author Admin, ONESIMO Organization [facility] [employer] Address Unknown Phone Unavailable Allergies, Adverse Reactions, [...] TABS 1 twice a day SULFAMETHOXAZOLE- TRIMETHOPRIM 61346865191 Active Erik Baptiste MD Active IPRATROPIUM-ALBUTEROL 0.5-2.5 (3) MG/3ML INH SOLN 1 neb treatment QID for cough Dx: J06.9 IPRATROPIUM-ALBUTEROL 85122628199 Active Jaycee Garcia APRN Active IPRATROPIUM-ALBUTEROL 0.5-2.5 (3) MG/3ML SOLN 1 neb treatment four times daily , for cough IPRATROPIUM-ALBUTEROL 97501133320 No Longer Active Jaycee Garcia APRN Active TYLENOL 8 HOUR 650 MG ORAL CR-TABS Take 1 tab po up to 3 times daily as needed ACETAMINOPHEN 49316142220 Active Jaycee Jose IT SENIOR SOFTWARE ENGINEER JAVA Active FUROSEMIDE 40 MG TABS Take one by mouth daily FUROSEMIDE 25548551137 No Longer Active Jaycee Garcia VICTORINO Active LANTUS 100 UNIT/ML SC SOLN 20 SUBQ AT HS INSULIN GLARGINE 93470829180 Active Jaycee Jose IT SENIOR SOFTWARE ENGINEER JAVA Active LAMICTAL 25 MG ORAL TABS 2 tabs po BID for convulsions LAMOTRIGINE 65970346306 Active Jaycee Garcia VICTORINO Active INVEGA 6 MG ORAL [id number] 1 po daily for Schizophrenia PALIPERIDONE 51015210570 Active Jaycee Garcia VICTORINO Active LASIX 20 MG TAB 1 tablet by mouth every morning for edema FUROSEMIDE 34518013118 Active Jayceehugo Garcia APRN Active BUSPIRONE HCL 10 MG TABS 1 tab by mouth BID BUSPIRONE HCL 68673197139 Active Jaycee Garcia VICTORINO Active NOVOLOG 100 UNIT/ML SC SOLN 10 UNITS BEFORE SUPPER INSULIN ASPART 47346659466 Active Jaycee Garcia VICTORINO Active NOVOLOG 100 UNIT/ML SC SOLN 10 UNITS BID BEFORE BREAKFAST AND LUNCH INSULIN ASPART 32987232088 Active Jaycee Garcia VICTORINO Active LAMICTAL 25 MG TABS 2 tabs by mouth twice a day LAMOTRIGINE 24468652758 Active Pelon Quach MD Active ADULT ASPIRIN EC LOW STRENGTH 81 MG TBEC Take one by mouth daily ASPIRIN 72361385801 No Longer Active Pelon Quach MD Active ASPIRIN 81 MG ORAL TABS 1 po qd ASPIRIN 48998515420 Active Pelon Quach MD Active ZOFRAN 4 MG TABS 1 po q6hr PRN Nausea ONDANSETRON HCL 02707031047 No Longer Active Pelon Quach MD Active TYLENOL 325 MG TAB 1-2 pills by mouth every 6 hours if needed for pain/fever ACETAMINOPHEN 63383683679 No Longer Active Pelon Quach MD Active INVEGA 6 MG ORAL [id number] 1 TAB ONCE DAILY PALIPERIDONE 78488133149 No Longer Active Carly Suggs Active TEGRETOL 200 MG TABS by mouth twice a day CARBAMAZEPINE 64018451161 Active Taty Alvarado MD PhD Active FLOMAX 0.4 MG CAPS 1 Daily TAMSULOSIN HCL 05298677440 Active Marianelachandrika Juarez Active DILANTIN 100 MG CAPS Take one by mouth daily PHENYTOIN SODIUM EXTENDED 83720712763 No Longer Active Marianelachandrika Juarez Active DEPAKOTE SPRINKLES 125 MG CPSP 4 capsules by mouth twice daily DIVALPROEX SODIUM 25652414671 No Longer Active Marianelachandrika Juarez Active LAMICTAL 200 MG ORAL TABS 1 BY MOUTH TWICE A DAY LAMOTRIGINE 93178476568 Active Marianelachandrika Juarez Active LAMICTAL 100 MG TABS by mouth twice a day LAMOTRIGINE 24801740264 No Longer Active Marianelachandrika Juarez Active LAMICTAL 150 MG TABS by mouth twice a day LAMOTRIGINE 03779143052 No Longer Active Marianelachandrika Juarez Active DILANTIN 100 MG CAPS Take three by mouth daily PHENYTOIN SODIUM EXTENDED 09794751601 No Longer Active Marianela Juarez Active SENOKOT 8.6 MG TABS take at bedtime SENNOSIDES 86678097019 Active Glenn Thornton MD Active LIPITOR 20 MG TABS take at bedtime ATORVASTATIN CALCIUM 66754304528 Active Glenn Thornton MD Active LISINOPRIL 2.5 MG TABS Take one by mouth daily LISINOPRIL 23642978773 Active Glenn Thornton MD Active TRENTAL 400 MG CR-TABS by mouth twice a day PENTOXIFYLLINE 85641705102 Active Glenn Thornton MD Active KLOR-CON 10 10 MEQ CR-TABS Take one by mouth daily POTASSIUM CHLORIDE 53161543255 Active Glenn Thornton MD Active DILANTIN 100 MG CAPS Take three by mouth daily DILANTIN 100 MG CAPS 453504 PHENYTOIN SODIUM EXTENDED Inactive LAMICTAL 150 MG TABS by mouth twice a day LAMICTAL 150 MG TABS 19831025 LAMOTRIGINE Inactive LAMICTAL 100 MG TABS by mouth twice a day LAMICTAL 100 MG TABS 19831024 LAMOTRIGINE Inactive DEPAKOTE SPRINKLES 125 MG CPSP 4 capsules by mouth twice daily DEPAKOTE SPRINKLES 125 MG CPSP 7420623 DIVALPROEX SODIUM Inactive DILANTIN 100 MG CAPS Take one by mouth daily DILANTIN 100 MG CAPS 239831 PHENYTOIN SODIUM EXTENDED Inactive INVEGA 6 MG ORAL [id number] 1 TAB ONCE DAILY INVEGA 6 MG ORAL [id number] PALIPERIDONE Inactive TYLENOL 325 MG TAB 1-2 pills by mouth every 6 hours if needed for pain/fever TYLENOL 325 MG TAB 720288 ACETAMINOPHEN Inactive ZOFRAN 4 MG TABS 1 po q6hr PRN Nausea ZOFRAN 4 MG TABS 685951 ONDANSETRON HCL Inactive ADULT ASPIRIN EC LOW STRENGTH 81 MG TBEC Take one by mouth daily ADULT ASPIRIN EC LOW STRENGTH 81 MG TBEC 923546 ASPIRIN Inactive FUROSEMIDE 40 MG TABS Take one by mouth daily FUROSEMIDE 40 MG TABS 477444 FUROSEMIDE Inactive IPRATROPIUM-ALBUTEROL 0.5-2.5 (3) MG/3ML SOLN 1 neb treatment four times daily , for cough IPRATROPIUM-ALBUTEROL 0.5-2.5 (3) MG/3ML SOLN 0168557 IPRATROPIUM-ALBUTEROL Inactive Advance Directives Directive Description Start Date DURABLE POWER OF ENTRY TABLE OPERATOR FOR HEALTHCARE PERMISSION TO SHARE ADVANCED [...] mg/dL Encounters Code Encounter Date Provider Facility CPT-18325 Level 3 Est. Patient 11:51:35 SENIOR ANALYTIC CONSULTANT Rick Henson DO [facility] CPT-43008 Level 3 Est. Patient 12:13:33 SENIOR ANALYTIC CONSULTANT Erik Baptiste MD [facility] CPT-86248 Level 3 Est. Patient 09:40:44 SENIOR ANALYTIC CONSULTANT Jaycee Garcia [facility] CPT-37529 Level 3 Est. Patient 09:36:32 SENIOR ANALYTIC CONSULTANT Jaycee Garcia [facility] CPT-07552 Level 4 Est. Patient 16:57:02 SENIOR ANALYTIC CONSULTANT Pelon Quach MD [facility] CPT-20272 Level 4 Est. Patient 22:19:34 CDT Pelon Quach MD [facility] CPT-15209 Level 3 Est. Patient 00:34:41 CDT Pelon Quach MD [facility] CPT-37593 Level 4 Est. Patient 11:19:14 CDT Pelon Quach MD [facility] CPT-11569 Level 4 Est. Patient 16:43:30 SENIOR ANALYTIC CONSULTANT Pelon Quach MD [facility] CPT-28193 Level 4 Est. Patient 12:42:18 CDT Pelon Quach MD [facility] CPT-34154 Level 4 Est. Patient 11:52:20 CDT Pelon Quach MD [facility] CPT-82777 Level 4 Est. Patient 13:59:46 CDT Pelon Quach MD [facility] CPT-06540 Level 4 Est. Patient 15:10:48 CDT Pelon Quach MD [facility] CPT-02279 Level 4 Est. Patient 17:13:06 CDT Pelon Quach MD [facility] CPT-63181 Level 4 Est. Patient 18:47:47 CDT Pelon Quach MD [facility] CPT-59666 Level 3 Est. Patient 21:01:27 CDT Pelon Quach MD [facility] CPT-05938 Level 3 Est. Patient 14:07:03 CDT Taty Alvarado MD PhD [facility] CPT-96975 Level 3 New Patient 21:39:52 SENIOR ANALYTIC CONSULTANT Pelon Quach MD [facility] CPT-94769 Level 3 Est. Patient 14:28:44 CDT Glenn Thornton MD [facility] CPT-95346 Level 3 Est. Patient 16:35:00 CDT Glenn Thornton MD [facility] CPT-41982 Level 4 New Patient 17:06:27 CDT Glenn Thornton MD [facility] Procedures Code Procedure Name Date Entry Date Standard Description CPT-31684 Chest 2V Frontal and Lat - XRAY USE ONLY 11:56:13 SENIOR ANALYTIC CONSULTANT CPT-41575 Cystoscopy 14:28:44 CDT CPT-51192 Bladder Scan 14:28:44 CDT CPT-87591 Indwelling Cath Change 17:06:27 CDT CPT-23267 Cystoscopy 17:06:27 CDT
--- OUTSIDE RECORDS SUMMARY | 2018-06-22 12:55 | XMS REPORT | Clinical Summary ---
Author Author Admin, ONESIMO Organization [facility] Address Unknown Phone Unavailable Allergies, Adverse Reactions, [...] and insulin admin Dx: E11.9 ALCOHOL SWABS [id number] Active Jaycee Torrez APRN Active HUMALOG KWIKPEN 100 UNIT/ML SUBCUTANEOUS SOLUTION PEN-INJECTOR inject 10 units subcutaneously before meals also sliding scale INSULIN LISPRO 77472421463 Active Jaycee Torrez APRN Active NOVOLOG 100 UNIT/ML SUBCUTANEOUS SOLUTION 10 UNITS BID BEFORE BREAKFAST AND LUNCH INSULIN ASPART 04884064382 No Longer Active NICOLETTE Hitchcock Active NOVOLOG 100 UNIT/ML SUBCUTANEOUS SOLUTION 10 UNITS BEFORE SUPPER INSULIN ASPART 98142303550 No Longer Active NICOLETTE Hitchcock Active INVEGA 6 MG ORAL TABLET EXTENDED RELEASE 24 HOUR 1 po daily for schizophrenia PALIPERIDONE 93302689481 Active Pelon Quach MD Active LAMICTAL 25 MG ORAL TABLET 2 tabs by mouth twice a day LAMOTRIGINE 86334840015 No Longer Active Pelon Quach MD Active BACTROBAN 2 % EXTERNAL OINTMENT Apply to affected area BID 06/28 MUPIROCIN 79613654171 No Longer Active Pelon Quach MD Active BANOPHEN 25 MG ORAL TABLET 1 po every 6 hours PRN allergic reaction DIPHENHYDRAMINE HCL 35419354658 Active Pelon uQach MD Active INVEGA 6 MG ORAL TABLET EXTENDED RELEASE 24 HOUR 1 po daily for Schizophrenia PALIPERIDONE 26976973707 No Longer Active Pelon Quach MD Active TYLENOL 8 HOUR 650 MG ORAL TABLET EXTENDED RELEASE Take 1 tab po up to 3 times daily as needed ACETAMINOPHEN 45347543132 No Longer Active Pelon Quach MD Active IPRATROPIUM-ALBUTEROL 0.5-2.5 (3) MG/3ML INHALATION SOLUTION 1 neb treatment QID for cough Dx: J06.9 IPRATROPIUM-ALBUTEROL 88366206782 No Longer Active Pelon Quach MD Active BACTRIM DS 800-160 MG ORAL TABLET 1 tab by mouth twice daily 2016 TRIMETHOPRIM-SULFAMETHOXAZOLE 09399500253 No Longer Active Pelon Quach MD Active BACTRIM DS 800-160 MG ORAL TABLET 1 twice a day SULFAMETHOXAZOLE-TRIMETHOPRIM 60202576489 No Longer Active Pelon Quach MD Active IPRATROPIUM-ALBUTEROL 0.5-2.5 (3) MG/3ML INHALATION SOLUTION 1 neb treatment four times daily, for cough IPRATROPIUM-ALBUTEROL 39216900538 No Longer Active Jaycee Torrez APRN Active FUROSEMIDE 40 MG ORAL TABLET Take one by mouth daily FUROSEMIDE 24763897623 No Longer Active Jaycee Torrez APRN Active LANTUS 100 UNIT/ML SUBCUTANEOUS SOLUTION 20 SUBQ AT HS INSULIN GLARGINE 23272405457 Active Jaycee Torrez APRN Active LAMICTAL 25 MG ORAL TABLET 2 tabs po BID for convulsions LAMOTRIGINE 86587271410 Active Jaycee Torrez APRN Active LASIX 20 MG ORAL TABLET 1 tablet by mouth every morning for edema FUROSEMIDE 51871541758 Active Jaycee Torrez APRN Active BUSPIRONE HCL 10 MG ORAL TABLET 1 tab by mouth BID BUSPIRONE HCL 92428200291 Active Jaycee Torrez APRN Active ADULT ASPIRIN EC LOW STRENGTH 81 MG ORAL TABLET DELAYED RELEASE Take one by mouth daily ASPIRIN 63893656723 No Longer Active Pelon Quach MD Active ASPIRIN 81 MG ORAL TABLET 1 po qd ASPIRIN 54980475862 Active Pelon Quach MD Active ZOFRAN 4 MG ORAL TABLET 1 po q6hr PRN Nausea ONDANSETRON HCL 81937523581 No Longer Active Pelon Quach MD Active TYLENOL 325 MG ORAL TABLET 1-2 pills by mouth every 6 hours if needed for pain /fever ACETAMINOPHEN 06060118304 No Longer Active Pelon Quach MD Active INVEGA 6 MG ORAL TABLET EXTENDED RELEASE 24 HOUR 1 TAB ONCE DAILY PALIPERIDONE 48921567139 No Longer Active Carly Suggs Active TEGRETOL 200 MG ORAL TABLET by mouth twice a day CARBAMAZEPINE 68219776129 Active Taty Alvarado MD PhD Active FLOMAX 0.4 MG ORAL CAPSULE 1 Daily TAMSULOSIN HCL 38212539161 Active Marianela Juarez Active DILANTIN 100 MG ORAL CAPSULE Take one by mouth daily PHENYTOIN SODIUM EXTENDED 69959580894 No Longer Active Marianelachandrika Juarez Active DEPAKOTE SPRINKLES 125 MG ORAL CAPSULE DELAYED RELEASE SPRINKLE 4 capsules by mouth twice daily DIVALPROEX SODIUM 34642599279 No Longer Active Marianela Juarez Active LAMICTAL 200 MG ORAL TABLET 1 BY MOUTH TWICE A DAY LAMOTRIGINE 07571954782 Active Marianelachandrika Juarez Active LAMICTAL 100 MG ORAL TABLET by mouth twice a day LAMOTRIGINE 59613921636 No Longer Active Marianelachandrika Juarez Active LAMICTAL 150 MG ORAL TABLET by mouth twice a day LAMOTRIGINE 22001837877 No Longer Active Marianela Juarez Active DILANTIN 100 MG ORAL CAPSULE Take three by mouth daily PHENYTOIN SODIUM EXTENDED 54156782364 No Longer Active Marianela Juarez Active SENOKOT 8.6 MG ORAL TABLET take at bedtime SENNOSIDES 51875467301 Active Pelon Quach MD Active LIPITOR 20 MG ORAL TABLET take at bedtime ATORVASTATIN CALCIUM 32971874367 Active Glenn Thornton MD Active LISINOPRIL 2.5 MG ORAL TABLET Take one by mouth daily LISINOPRIL 42096582299 Active Glenn Thornton MD Active TRENTAL 400 MG CR-TABS by mouth twice a day PENTOXIFYLLINE 75373630457 Active Glenn Thornton MD Active KLOR-CON 10 10 MEQ ORAL TABLET EXTENDED RELEASE Take one by mouth daily POTASSIUM CHLORIDE 00780821703 Active Glenn Thornton MD Active DILANTIN 100 MG ORAL CAPSULE Take three by mouth daily DILANTIN 100 MG ORAL CAPSULE 237714 PHENYTOIN SODIUM EXTENDED Inactive LAMICTAL 150 MG ORAL TABLET by mouth twice a day LAMICTAL 150 MG ORAL TABLET 053336 LAMOTRIGINE Inactive LAMICTAL 100 MG ORAL TABLET by mouth twice a day LAMICTAL 100 MG ORAL TABLET 852739 LAMOTRIGINE Inactive DEPAKOTE SPRINKLES 125 MG ORAL CAPSULE DELAYED RELEASE SPRINKLE 4 capsules by mouth twice daily DEPAKOTE SPRINKLES 125 MG ORAL CAPSULE DELAYED RELEASE SPRINKLE 8958691 DIVALPROEX SODIUM Inactive DILANTIN 100 MG ORAL CAPSULE Take one by mouth daily DILANTIN 100 MG ORAL CAPSULE 204515 PHENYTOIN SODIUM EXTENDED Inactive INVEGA 6 MG ORAL TABLET EXTENDED RELEASE 24 HOUR 1 TAB ONCE DAILY INVEGA 6 MG ORAL TABLET EXTENDED RELEASE 24 HOUR PALIPERIDONE Inactive TYLENOL 325 MG ORAL TABLET 1-2 pills by mouth every 6 hours if needed for pain /fever TYLENOL 325 MG ORAL TABLET 777426 ACETAMINOPHEN Inactive ZOFRAN 4 MG ORAL TABLET 1 po q6hr PRN Nausea ZOFRAN 4 MG ORAL TABLET 679429 ONDANSETRON HCL Inactive ADULT ASPIRIN EC LOW STRENGTH 81 MG ORAL TABLET DELAYED RELEASE Take one by mouth daily ADULT ASPIRIN EC LOW STRENGTH 81 MG ORAL TABLET DELAYED RELEASE 576170 ASPIRIN Inactive FUROSEMIDE 40 MG ORAL TABLET Take one by mouth daily FUROSEMIDE 40 MG ORAL TABLET 583552 FUROSEMIDE Inactive BACTRIM DS 800-160 MG ORAL TABLET 1 twice a day BACTRIM DS 800-160 MG ORAL TABLET 990560 SULFAMETHOXAZOLE-TRIMETHOPRIM Inactive IPRATROPIUM-ALBUTEROL 0.5-2.5 (3) MG/3ML INHALATION SOLUTION 1 neb treatment QID for cough Dx: J06.9 IPRATROPIUM-ALBUTEROL 0.5-2.5 ( 3) MG/3ML INHALATION SOLUTION 8102786 IPRATROPIUM-ALBUTEROL Inactive TYLENOL 8 HOUR 650 MG [...] BID 06/28 BACTROBAN 2 % EXTERNAL OINTMENT 457498 MUPIROCIN Inactive LAMICTAL 25 MG ORAL TABLET 2 tabs by mouth twice a day LAMICTAL 25 MG ORAL TABLET 850863 LAMOTRIGINE Inactive NOVOLOG 100 UNIT/ML SUBCUTANEOUS SOLUTION 10 UNITS BEFORE SUPPER NOVOLOG 100 UNIT/ML SUBCUTANEOUS SOLUTION INSULIN ASPART Inactive NOVOLOG 100 UNIT/ML SUBCUTANEOUS SOLUTION 10 UNITS BID BEFORE BREAKFAST AND LUNCH NOVOLOG 100 UNIT/ML SUBCUTANEOUS SOLUTION INSULIN ASPART Inactive IPRATROPIUM-ALBUTEROL 0.5-2.5 (3) MG/3ML INHALATION SOLUTION 1 neb treatment four times daily, for cough IPRATROPIUM-ALBUTEROL 0.5- 2.5 (3) MG/3ML INHALATION SOLUTION 9023412 IPRATROPIUM-ALBUTEROL Inactive BACTRIM DS 800-160 MG ORAL TABLET 1 tab by mouth twice daily 2016 BACTRIM DS 800-160 MG ORAL TABLET 942930 TRIMETHOPRIM- SULFAMETHOXAZOLE Inactive Advance Directives Directive Description Start Date DURABLE POWER OF RESTAURANT DISTRICT MANAGER FOR HEALTHCARE PERMISSION TO SHARE ADVANCED [...] Panel - Chemistry sodium, serum 127 mmol/L 449-011 9340/07/28 potassium, serum 5.3 mmol/L 3.5-5.2 chloride, serum 92 mmol/L 98-107 carbon dioxide, venous blood 32.4 mmol/L 21.0-32.0 blood glucose 182 mg/dL 65-110 calcium, serum 9.4 mg/dL 8.5-10.1 urea nitrogen, blood 14 mg/dL 7-18 creatinine, serum 0.94 mg/dL 0.60-1.30 Lab Report: CBC, Comp. Metabolic Panel - Chemistry sodium, serum 129 mmol/L 924-298 1163/07/12 carbon dioxide, venous blood 27.8 mmol/L 21.0-32.0 [...] mg/dL Encounters Code Encounter Date Provider Facility CPT-77045 Level 4 Est. Patient 14:46:38 CDT Pelon Quach MD [facility] CPT-62772 Level 4 Est. Patient 08:43:11 CDT Pelon Quach MD [facility] CPT-29167 Level 4 Est. Patient 14:27:30 CDT Pelon Quach MD [facility] CPT-21170 Level 3 Est. Patient 10:32:17 CDT Jaycee Torrez APRN [facility] CPT-45694 Level 3 Est. Patient 10:15:07 CDT Pelon Quach MD [facility] CPT-03962 Level 4 Est. Patient 09:30:54 CDT Pelon Quach MD [facility] CPT-94249 Level 4 Est. Patient 14:34:25 CDT Pelon Quach MD [facility] CPT-76897 Level 3 Est. Patient 11:51:35 FILM SOUND COORDINATOR Rick Henson DO [facility] CPT-85186 Level 3 Est. Patient 12:13:33 FILM SOUND COORDINATOR Erik Baptiste MD [facility]-27197 Level 3 Est. Patient 09:40:44 FILM SOUND COORDINATOR Jaycee Torrez [facility] CPT-28762 Level 3 Est. Patient 09:36:32 FILM SOUND COORDINATOR Jaycee Torrez [facility] CPT-21611 Level 4 Est. Patient 16:57:02 FILM SOUND COORDINATOR Pelon Quach MD [facility]-39716 Level 4 Est. Patient 22:19:34 CDT Pelon Quach MD [facility]-04018 Level 3 Est. Patient 00:34:41 CDT Pelon Quach MD [facility]-03739 Level 4 Est. Patient 11:19:14 CDT Pelon Quach MD [facility]-25321 Level 4 Est. Patient 16:43:30 FILM SOUND COORDINATOR Pelon Quach MD [facility]-09536 Level 4 Est. Patient 12:42:18 CDT Pelon Quach MD [facility] CPT-61140 Level 4 Est. Patient 11:52:20 CDT Pelon Quach MD [facility] CPT-84052 Level 4 Est. Patient 13:59:46 CDT Pelon Quach MD [facility] CPT-72253 Level 4 Est. Patient 15:10:48 CDT Pelon Quach MD [facility] CPT-72407 Level 4 Est. Patient 17:13:06 CDT Pelon Quach MD [facility] CPT-36189 Level 4 Est. Patient 18:47:47 CDT Pelon Quach MD [facility] CPT-56310 Level 3 Est. Patient 21:01:27 CDT Pelon Quach MD [facility] CPT-68976 Level 3 Est. Patient 14:07:03 CDT Taty Alvarado MD, PhD [facility] CPT-88609 Level 3 New Patient 21:39:52 FILM SOUND COORDINATOR Pelon Quach MD [facility] CPT-57036 Level 3 Est. Patient 14:28:44 CDT Glenn Thornton MD [facility] CPT-76899 Level 3 Est. Patient 16:35:00 CDT Glenn Thornton MD [facility] CPT-50442 Level 4 New Patient 17:06:27 CDT Glenn Thornton MD [facility] Procedures Code Procedure Name Date Entry Date Standard Description CPT-G0438 Initial Annual Wellness Exam 09:30:54 CDT CPT-59500 Prevnar 13 Intramuscular Suspension 14:34:25 CDT 12/27 CPT-53585 Chest 2V Frontal and Lat - XRAY USE ONLY 11:56:13 FILM SOUND COORDINATOR CPT-76469 Cystoscopy 14:28:44 CDT CPT-13777 Bladder Scan 14:28:44 CDT CPT-21913 Indwelling Cath Change 17:06:27 CDT CPT-81844 Cystoscopy 17:06:27 CDT
--- OUTSIDE RECORDS SUMMARY | 2018-06-22 12:57 | XMS REPORT | Clinical Summary ---
Author Author Admin, ONESIMO Organization [facility] [address] [place] Address Unknown Phone Unavailable Allergies, Adverse Reactions, Alerts Allergy Name Reaction Description Start Date Severity Status Provider SULFA rash Critical Active Pelon Quach MD BACTROBAN Moderate Active Pelon Quach MD Conditions or Problems Problem Name Problem Code Onset Date Status Entry Date Provider Comment Standard Description Annotate History of ANXIETY 300.00 Active Glenn hTornton MD Anxiety state, unspecified HYPERTENSION 401.9 Active [...] Esophageal reflux Diabetes-Type 2 250.00 Active Pelon Qucah MD Diabetes mellitus without mention of complication, [...] and insulin admin Dx: E11.9 ALCOHOL SWABS 72132409736 Active Jaycee Garcia APRN Active HUMALOG KWIKPEN 100 UNIT/ML SUBCUTANEOUS SOLUTION PEN-INJECTOR inject 10 units subcutaneously before meals also sliding scale INSULIN LISPRO 46208605369 Active NICOLETTE Hitchcock Active NOVOLOG 100 UNIT/ML SUBCUTANEOUS SOLUTION 10 UNITS BID BEFORE BREAKFAST AND LUNCH INSULIN ASPART 40750775648 No Longer Active NICOLETTE Hitchcock Active NOVOLOG 100 UNIT/ML SUBCUTANEOUS SOLUTION 10 UNITS BEFORE SUPPER INSULIN ASPART 51627875787 No Longer Active NICOLETTE Hitchcock Active INVEGA 6 MG ORAL TABLET EXTENDED RELEASE 24 HOUR 1 po daily for schizophrenia PALIPERIDONE 11466868722 Active Pelon Quach MD Active LAMICTAL 25 MG ORAL TABLET 2 tabs by mouth twice a day LAMOTRIGINE 62863226959 No Longer Active Pelon Quach MD Active BACTROBAN 2 % EXTERNAL OINTMENT Apply to affected area BID 06/28 MUPIROCIN 10570782084 No Longer Active Pelon Quach MD Active BANOPHEN 25 MG ORAL TABLET 1 po every 6 hours PRN allergic reaction DIPHENHYDRAMINE HCL 04445332190 Active NICOLETTE Hitchcock Active INVEGA 6 MG ORAL TABLET EXTENDED RELEASE 24 HOUR 1 po daily for Schizophrenia PALIPERIDONE 46108974855 No Longer Active Pelon Quach MD Active TYLENOL 8 HOUR 650 MG ORAL TABLET EXTENDED RELEASE Take 1 tab po up to 3 times daily as needed ACETAMINOPHEN 47912899184 No Longer Active Pelon Quach MD Active IPRATROPIUM-ALBUTEROL 0.5-2.5 (3) MG/3ML INHALATION SOLUTION 1 neb treatment QID for cough Dx: J06.9 IPRATROPIUM-ALBUTEROL 66387874938 No Longer Active Pelon Quach MD Active BACTRIM DS 800-160 MG ORAL TABLET 1 tab by mouth twice daily 2016 TRIMETHOPRIM-SULFAMETHOXAZOLE 47493338712 No Longer Active Pelon Quach MD Active BACTRIM DS 800-160 MG ORAL TABLET 1 twice a day SULFAMETHOXAZOLE-TRIMETHOPRIM 95098250902 No Longer Active Pelon Quach MD Active IPRATROPIUM-ALBUTEROL 0.5-2.5 (3) MG/3ML INHALATION SOLUTION 1 neb treatment four times daily, for cough IPRATROPIUM-ALBUTEROL 45236474048 No Longer Active Jaycee Garcia APRN Active FUROSEMIDE 40 MG ORAL TABLET Take one by mouth daily FUROSEMIDE 14438512826 No Longer Active Jaycee Garcia APRN Active LANTUS 100 UNIT/ML SUBCUTANEOUS SOLUTION 20 SUBQ AT HS INSULIN GLARGINE 53432937781 Active Pelon Quach MD Active LAMICTAL 25 MG ORAL TABLET 2 tabs po BID for convulsions LAMOTRIGINE 01620259090 Active Jaycee Garcia APRN Active LASIX 20 MG ORAL TABLET 1 tablet by mouth every morning for edema FUROSEMIDE 83435111712 Active Jaycee Garcia APRN Active BUSPIRONE HCL 10 MG ORAL TABLET 1 tab by mouth BID BUSPIRONE HCL 71625715266 Active Jaycee Garcia APRN Active ADULT ASPIRIN EC LOW STRENGTH 81 MG ORAL TABLET DELAYED RELEASE Take one by mouth daily ASPIRIN 31258322211 No Longer Active Pelon Quach MD Active ASPIRIN 81 MG ORAL TABLET 1 po qd ASPIRIN 86378135395 Active Pelon Quach MD Active ZOFRAN 4 MG ORAL TABLET 1 po q6hr PRN Nausea ONDANSETRON HCL 93523472140 No Longer Active Pelon Quach MD Active TYLENOL 325 MG ORAL TABLET 1-2 pills by mouth every 6 hours if needed for pain /fever ACETAMINOPHEN 72650121637 No Longer Active Pelon Quach MD Active INVEGA 6 MG ORAL TABLET EXTENDED RELEASE 24 HOUR 1 TAB ONCE DAILY PALIPERIDONE 38603310434 No Longer Active Carly Suggs Active TEGRETOL 200 MG ORAL TABLET by mouth twice a day CARBAMAZEPINE 32672735160 Active Taty Alvarado MD PhD Active FLOMAX 0.4 MG ORAL CAPSULE 1 Daily TAMSULOSIN HCL 80059458993 Active Marianela Juarez Active DILANTIN 100 MG ORAL CAPSULE Take one by mouth daily PHENYTOIN SODIUM EXTENDED 98217789930 No Longer Active Marianela Juarez Active DEPAKOTE SPRINKLES 125 MG ORAL CAPSULE DELAYED RELEASE SPRINKLE 4 capsules by mouth twice daily DIVALPROEX SODIUM 76265291828 No Longer Active Marianela Juarez Active LAMICTAL 200 MG ORAL TABLET 1 BY MOUTH TWICE A DAY LAMOTRIGINE 79434917279 Active Marianelachandrika Juarez Active LAMICTAL 100 MG ORAL TABLET by mouth twice a day LAMOTRIGINE 51716579365 No Longer Active Marianelachandrika Juarez Active LAMICTAL 150 MG ORAL TABLET by mouth twice a day LAMOTRIGINE 87632448625 No Longer Active Marianela Juarez Active DILANTIN 100 MG ORAL CAPSULE Take three by mouth daily PHENYTOIN SODIUM EXTENDED 92211112527 No Longer Active Marianela Juarez Active SENOKOT 8.6 MG ORAL TABLET take at bedtime SENNOSIDES 22107116452 Active Pelon Quach MD Active LIPITOR 20 MG ORAL TABLET take at bedtime ATORVASTATIN CALCIUM 73362469370 Active Glenn Thornton MD Active LISINOPRIL 2.5 MG ORAL TABLET Take one by mouth daily LISINOPRIL 96603099678 Active Glenn Thornton MD Active TRENTAL 400 MG CR-TABS by mouth twice a day PENTOXIFYLLINE 96062484483 Active Glenn Thornton MD Active KLOR-CON 10 10 MEQ ORAL TABLET EXTENDED RELEASE Take one by mouth daily POTASSIUM CHLORIDE 46065027335 Active J Ian Thornton MD Active DILANTIN 100 MG ORAL CAPSULE Take three by mouth daily DILANTIN 100 MG ORAL CAPSULE 395636 PHENYTOIN SODIUM EXTENDED Inactive LAMICTAL 150 MG ORAL TABLET by mouth twice a day LAMICTAL 150 MG ORAL TABLET 720720 LAMOTRIGINE Inactive LAMICTAL 100 MG ORAL TABLET by mouth twice a day LAMICTAL 100 MG ORAL TABLET 19831024 LAMOTRIGINE Inactive DEPAKOTE SPRINKLES 125 MG ORAL CAPSULE DELAYED RELEASE SPRINKLE 4 capsules by mouth twice daily DEPAKOTE SPRINKLES 125 MG ORAL CAPSULE DELAYED RELEASE SPRINKLE 1921029 DIVALPROEX SODIUM Inactive DILANTIN 100 MG ORAL CAPSULE Take one by mouth daily DILANTIN 100 MG ORAL CAPSULE 093124 PHENYTOIN SODIUM EXTENDED Inactive INVEGA 6 MG ORAL TABLET EXTENDED RELEASE 24 HOUR 1 TAB ONCE DAILY INVEGA 6 MG ORAL TABLET EXTENDED RELEASE 24 HOUR PALIPERIDONE Inactive TYLENOL 325 MG ORAL TABLET 1-2 pills by mouth every 6 hours if needed for pain /fever TYLENOL 325 MG ORAL TABLET 039436 ACETAMINOPHEN Inactive ZOFRAN 4 MG ORAL TABLET 1 po q6hr PRN Nausea ZOFRAN 4 MG ORAL TABLET 894194 ONDANSETRON HCL Inactive ADULT ASPIRIN EC LOW STRENGTH 81 MG ORAL TABLET DELAYED RELEASE Take one by mouth daily ADULT ASPIRIN EC LOW STRENGTH 81 MG ORAL TABLET DELAYED RELEASE 971196 ASPIRIN Inactive FUROSEMIDE 40 MG ORAL TABLET Take one by mouth daily FUROSEMIDE 40 MG ORAL TABLET 311013 FUROSEMIDE Inactive BACTRIM DS 800-160 MG ORAL TABLET 1 twice a day BACTRIM DS 800-160 MG ORAL TABLET 021123 SULFAMETHOXAZOLE-TRIMETHOPRIM Inactive IPRATROPIUM-ALBUTEROL 0.5-2.5 (3) MG/3ML INHALATION SOLUTION 1 neb treatment QID for cough Dx: J06.9 IPRATROPIUM-ALBUTEROL 0.5-2.5 ( 3) MG/3ML INHALATION SOLUTION 9013375 IPRATROPIUM-ALBUTEROL Inactive TYLENOL 8 HOUR 650 MG [...] BID 06/28 BACTROBAN 2 % EXTERNAL OINTMENT 718219 MUPIROCIN Inactive LAMICTAL 25 MG ORAL TABLET 2 tabs by mouth twice a day LAMICTAL 25 MG ORAL TABLET 670986 LAMOTRIGINE Inactive NOVOLOG 100 UNIT/ML SUBCUTANEOUS SOLUTION 10 UNITS BEFORE SUPPER NOVOLOG 100 UNIT/ML SUBCUTANEOUS SOLUTION INSULIN ASPART Inactive NOVOLOG 100 UNIT/ML SUBCUTANEOUS SOLUTION 10 UNITS BID BEFORE BREAKFAST AND LUNCH NOVOLOG 100 UNIT/ML SUBCUTANEOUS SOLUTION INSULIN ASPART Inactive IPRATROPIUM-ALBUTEROL 0.5-2.5 (3) MG/3ML INHALATION SOLUTION 1 neb treatment four times daily, for cough IPRATROPIUM-ALBUTEROL 0.5- 2.5 (3) MG/3ML INHALATION SOLUTION 0091912 IPRATROPIUM-ALBUTEROL Inactive BACTRIM DS 800-160 MG ORAL TABLET 1 tab by mouth twice daily 2016 BACTRIM DS 800-160 MG ORAL TABLET 561770 TRIMETHOPRIM- SULFAMETHOXAZOLE Inactive Advance Directives Directive Description Start Date DURABLE POWER OF PRODUCT SUPPORT MANAGER FOR HEALTHCARE PERMISSION TO SHARE ADVANCED [...] Panel - Chemistry sodium, serum 127 mmol/L 122-055 8815/07/28 potassium, serum 5.3 mmol/L 3.5-5.2 chloride, serum 92 mmol/L 98-107 carbon dioxide, venous blood 32.4 mmol/L 21.0-32.0 blood glucose 182 mg/dL 65-110 calcium, serum 9.4 mg/dL 8.5-10.1 urea nitrogen, blood 14 mg/dL 7-18 creatinine, serum 0.94 mg/dL 0.60-1.30 Lab Report: CBC, Comp. Metabolic Panel - Chemistry sodium, serum 129 mmol/L 461-165 5842/07/12 carbon dioxide, venous blood 27.8 mmol/L 21.0-32.0 [...] mg/dL Encounters Code Encounter Date Provider Facility CPT-18797 Level 4 Est. Patient 14:46:38 CDT Pelon Quach MD [facility] CPT-42819 Level 4 Est. Patient 08:43:11 CDT Pelon Quach MD [facility] [place]-04719 Level 4 Est. Patient 14:27:30 CDT Pelon Quach MD [facility] CPT-55706 Level 3 Est. Patient 10:32:17 CDT Jaycee Garcia [facility] [place] CPT-24307 Level 3 Est. Patient 10:15:07 CDT Pelon Quach MD [facility] CPT-03381 Level 4 Est. Patient 09:30:54 CDT Pelon Quach MD [facility] CPT-25203 Level 4 Est. Patient 14:34:25 CDT Pelon Quach MD [facility] CPT-73043 Level 3 Est. Patient 11:51:35 WIRER HELPER Rick Henson DO [facility] CPT-10690 Level 3 Est. Patient 12:13:33 WIRER HELPER Erik Baptiste MD [facility] CPT-71091 Level 3 Est. Patient 09:40:44 WIRER HELPER Jaycee Garcia [facility] [place] CPT-51500 Level 3 Est. Patient 09:36:32 WIRER HELPER Jaycee Garcia [facility] [place] CPT-76196 Level 4 Est. Patient 16:57:02 WIRER HELPER Pelon Quach MD [facility] CPT-01031 Level 4 Est. Patient 22:19:34 CDT Pelon Quach MD [facility] CPT-47501 Level 3 Est. Patient 00:34:41 CDT Pelon Quach MD [facility] [place]-37044 Level 4 Est. Patient 11:19:14 CDT Pelon Quach MD [facility] CPT-01491 Level 4 Est. Patient 16:43:30 WIRER HELPER Pelon Quach MD [facility] [place]-49344 Level 4 Est. Patient 12:42:18 CDT Pelon Quach MD [facility] CPT-80190 Level 4 Est. Patient 11:52:20 CDT Pelon Quach MD [facility] CPT-77139 Level 4 Est. Patient 13:59:46 CDT Pelon Quach MD [facility] CPT-18998 Level 4 Est. Patient 15:10:48 CDT Pelon Quach MD [facility] CPT-25640 Level 4 Est. Patient 17:13:06 CDT Pelon Quach MD [facility] CPT-56560 Level 4 Est. Patient 18:47:47 CDT Pelon Quach MD [facility] CPT-88856 Level 3 Est. Patient 21:01:27 CDT Pelon Quach MD [facility] CPT-53512 Level 3 Est. Patient 14:07:03 CDT Taty Alvarado MD PhD [facility] CPT-01310 Level 3 New Patient 21:39:52 WIRER HELPER Pelon Quach MD [facility] CPT-13316 Level 3 Est. Patient 14:28:44 CDT Glenn Thornton MD [facility] CPT-00014 Level 3 Est. Patient 16:35:00 CDT Glenn Thornton MD [facility] CPT-74685 Level 4 New Patient 17:06:27 CDT [facility] Procedures Code Procedure Name Date Entry Date Standard Description CPT-G0438 Initial Annual Wellness Exam 09:30:54 CDT CPT-35435 Prevnar 13 Intramuscular Suspension 14:34:25 CDT 12/27 CPT-13246 Chest 2V Frontal and Lat - XRAY USE ONLY 11:56:13 WIRER HELPER CPT-22870 Cystoscopy 14:28:44 CDT CPT-34139 Bladder Scan 14:28:44 CDT CPT-49023 Indwelling Cath Change 17:06:27 CDT CPT-42496 Cystoscopy 17:06:27 CDT
--- OUTSIDE RECORDS SUMMARY | 2018-06-22 12:59 | XMS REPORT | Clinical Summary ---
Author Author Admin, ONESIMO Organization [facility] [place] Address Unknown Phone Unavailable Allergies, [...] 6 hours PRN allergic reaction DIPHENHYDRAMINE HCL 82430633783 Active NICOLETTE Hitchcock Active INVEGA 6 MG ORAL [id number] 1 po daily for Schizophrenia PALIPERIDONE 69824094456 No Longer Active Pelon Quach MD Active TYLENOL 8 HOUR 650 MG ORAL CR-TABS Take 1 tab po up to 3 times daily as needed ACETAMINOPHEN 51471363555 No Longer Active Pelon Quach MD Active IPRATROPIUM-ALBUTEROL 0.5-2.5 (3) MG/3ML INH SOLN 1 neb treatment QID for cough Dx: J06.9 IPRATROPIUM-ALBUTEROL 07000366856 No Longer Active Pelon Quach MD Active BACTRIM DS 800-160 MG TAB 1 tab by mouth twice daily TRIMETHOPRIM-SULFAMETHOXAZOLE 56629495691 No Longer Active Pelon Quach MD Active BACTROBAN 2 % OINTMENT Apply to affected area BID MUPIROCIN 75101150445 Active Jaycee Garcia APRN Active BACTRIM DS 800-160 MG TABS 1 twice a day SULFAMETHOXAZOLE-TRIMETHOPRIM 35628661440 No Longer Active Pelon Quach MD Active IPRATROPIUM-ALBUTEROL 0.5-2.5 (3) MG/3ML SOLN 1 neb treatment four times daily , for cough IPRATROPIUM-ALBUTEROL 25368678966 No Longer Active Jaycee Garcia APRN Active FUROSEMIDE 40 MG TABS Take one by mouth daily FUROSEMIDE 05742548960 No Longer Active Jaycee Garcia APRN Active LANTUS 100 UNIT/ML SC SOLN 20 SUBQ AT HS INSULIN GLARGINE 98645398828 Active Jaycee Garcia APRN Active LAMICTAL 25 MG ORAL TABS 2 tabs po BID for convulsions LAMOTRIGINE 06505662852 Active Jaycee Garcia APRN Active LASIX 20 MG TAB 1 tablet by mouth every morning for edema FUROSEMIDE 38947201082 Active Jaycee Garcia APRN Active BUSPIRONE HCL 10 MG TABS 1 tab by mouth BID BUSPIRONE HCL 49706669726 Active Jaycee Garcia RHIT Active NOVOLOG 100 UNIT/ML SC SOLN 10 UNITS BEFORE SUPPER INSULIN ASPART 26881526355 Active Jaycee Garcia APRN Active NOVOLOG 100 UNIT/ML SC SOLN 10 UNITS BID BEFORE BREAKFAST AND LUNCH INSULIN ASPART 85105385389 Active Jaycee Garcia APRN Active LAMICTAL 25 MG TABS 2 tabs by mouth twice a day LAMOTRIGINE 74970400666 Active Pelon Quach MD Active ADULT ASPIRIN EC LOW STRENGTH 81 MG TBEC Take one by mouth daily ASPIRIN 92352128863 No Longer Active Pelon Quach MD Active ASPIRIN 81 MG ORAL TABS 1 po qd ASPIRIN 12728270250 Active Pelon Quach MD Active ZOFRAN 4 MG TABS 1 po q6hr PRN Nausea ONDANSETRON HCL 03544918230 No Longer Active Pelon Quach MD Active TYLENOL 325 MG TAB 1-2 pills by mouth every 6 hours if needed for pain/fever ACETAMINOPHEN 60575367802 No Longer Active Pelon Quach MD Active INVEGA 6 MG ORAL [id number] 1 TAB ONCE DAILY PALIPERIDONE 83785285443 No Longer Active Carly Suggs Active TEGRETOL 200 MG TABS by mouth twice a day CARBAMAZEPINE 01442212215 Active Taty Alvarado MD PhD Active FLOMAX 0.4 MG CAPS 1 Daily TAMSULOSIN HCL 92493901707 Active Marianela Juarez Active DILANTIN 100 MG CAPS Take one by mouth daily PHENYTOIN SODIUM EXTENDED 45680640380 No Longer Active Marianela Juarez Active DEPAKOTE SPRINKLES 125 MG CPSP 4 capsules by mouth twice daily DIVALPROEX SODIUM 99391392070 No Longer Active Marianela Juarez Active LAMICTAL 200 MG ORAL TABS 1 BY MOUTH TWICE A DAY LAMOTRIGINE 88872280414 Active Marianela Juarez Active LAMICTAL 100 MG TABS by mouth twice a day LAMOTRIGINE 32994432072 No Longer Active Marianela Juarez Active LAMICTAL 150 MG TABS by mouth twice a day LAMOTRIGINE 91221463228 No Longer Active Marianela Juarez Active DILANTIN 100 MG CAPS Take three by mouth daily PHENYTOIN SODIUM EXTENDED 30833857994 No Longer Active Marianela Shankarronny Active SENOKOT 8.6 MG TABS take at bedtime SENNOSIDES 73256236477 Active Glenn Thornton MD Active LIPITOR 20 MG TABS take at bedtime ATORVASTATIN CALCIUM 78294938450 Active Glenn Thornton MD Active LISINOPRIL 2.5 MG TABS Take one by mouth daily LISINOPRIL 80643968041 Active Glenn Thornton MD Active TRENTAL 400 MG CR-TABS by mouth twice a day PENTOXIFYLLINE 74761309630 Active Glenn Thornton MD Active KLOR-CON 10 10 MEQ CR-TABS Take one by mouth daily POTASSIUM CHLORIDE 96489467903 Active Glenn Thornton MD Active DILANTIN 100 MG CAPS Take three by mouth daily DILANTIN 100 MG CAPS 041586 PHENYTOIN SODIUM EXTENDED Inactive LAMICTAL 150 MG TABS by mouth twice a day LAMICTAL 150 MG TABS 838484 LAMOTRIGINE Inactive LAMICTAL 100 MG TABS by mouth twice a day LAMICTAL 100 MG TABS 19831024 LAMOTRIGINE Inactive DEPAKOTE SPRINKLES 125 MG CPSP 4 capsules by mouth twice daily DEPAKOTE SPRINKLES 125 MG CPSP 8016652 DIVALPROEX SODIUM Inactive DILANTIN 100 MG CAPS Take one by mouth daily DILANTIN 100 MG CAPS 873842 PHENYTOIN SODIUM EXTENDED Inactive INVEGA 6 MG ORAL [id number] 1 TAB ONCE DAILY INVEGA 6 MG ORAL [id number]-[id number] PALIPERIDONE Inactive TYLENOL 325 MG TAB 1-2 pills by mouth every 6 hours if needed for pain/fever TYLENOL 325 MG TAB 044218 ACETAMINOPHEN Inactive ZOFRAN 4 MG TABS 1 po q6hr PRN Nausea ZOFRAN 4 MG TABS 013922 ONDANSETRON HCL Inactive ADULT ASPIRIN EC LOW STRENGTH 81 MG TBEC Take one by mouth daily ADULT ASPIRIN EC LOW STRENGTH 81 MG TBEC 782037 ASPIRIN Inactive FUROSEMIDE 40 MG TABS Take one by mouth daily FUROSEMIDE 40 MG TABS 416474 FUROSEMIDE Inactive BACTRIM DS 800-160 MG TABS 1 twice a day BACTRIM DS 800-160 MG TABS 238603 SULFAMETHOXAZOLE-TRIMETHOPRIM Inactive IPRATROPIUM-ALBUTEROL 0.5-2.5 (3) MG/3ML INH SOLN 1 neb treatment QID for cough Dx: J06.9 IPRATROPIUM-ALBUTEROL 0.5-2.5 (3) MG/ 3ML INH SOLN 1159189 IPRATROPIUM-ALBUTEROL Inactive TYLENOL 8 HOUR 650 MG ORAL CR-TABS Take 1 tab po up to 3 times daily as needed TYLENOL 8 HOUR 650 MG ORAL CR-TABS ACETAMINOPHEN Inactive INVEGA 6 MG ORAL [id number] 1 po daily for Schizophrenia INVEGA 6 MG ORAL [id number] PALIPERIDONE Inactive IPRATROPIUM-ALBUTEROL 0.5-2.5 (3) MG/3ML SOLN 1 neb treatment four times daily , for cough IPRATROPIUM-ALBUTEROL 0.5-2.5 (3) MG/3ML SOLN 1119666 IPRATROPIUM-ALBUTEROL Inactive BACTRIM DS 800-160 MG TAB 1 tab by mouth twice daily BACTRIM DS 800-160 MG TAB 19821119 TRIMETHOPRIM-SULFAMETHOXAZOLE Inactive Advance Directives Directive Description Start Date DURABLE POWER OF DIESEL ENGINE PIPE FITTER FOR HEALTHCARE PERMISSION TO SHARE ADVANCED [...] Panel - Chemistry sodium, serum 129 mmol/L 677-234 8169/07/12 carbon dioxide, venous blood 27.8 mmol/L 21.0-32.0 [...] mg/dL Encounters Code Encounter Date Provider Facility CPT-88870 Level 4 Est. Patient 14:27:30 CDT Pelon Quach MD [facility] CPT-54852 Level 3 Est. Patient 10:32:17 CDT Jaycee Garcia [facility] CPT-62211 Level 3 Est. Patient 10:15:07 CDT Pelon Quach MD [facility]-69080 Level 4 Est. Patient 09:30:54 CDT Pelon Quach MD [facility]-31869 Level 4 Est. Patient 14:34:25 CDT Pelon Quach MD [facility] CPT-75952 Level 3 Est. Patient 11:51:35 SUBMARINE OPERATOR Rick Henson DO [facility]-45064 Level 3 Est. Patient 12:13:33 SUBMARINE OPERATOR Erik Baptiste MD [facility] CPT-75918 Level 3 Est. Patient 09:40:44 SUBMARINE OPERATOR Jaycee Garcia [facility]-55870 Level 3 Est. Patient 09:36:32 SUBMARINE OPERATOR Jaycee Garcia [facility] CPT-35690 Level 4 Est. Patient 16:57:02 SUBMARINE OPERATOR Pelon Quach MD [facility]-41111 Level 4 Est. Patient 22:19:34 CDT Pelon Quach MD [facility] CPT-33000 Level 3 Est. Patient 00:34:41 CDT Pelon Quach MD [facility] CPT-33903 Level 4 Est. Patient 11:19:14 CDT Pelon Quach MD [facility] CPT-28787 Level 4 Est. Patient 16:43:30 SUBMARINE OPERATOR Pelon Quach MD [facility]-63580 Level 4 Est. Patient 12:42:18 CDT Pelon Quach MD [facility] CPT-41581 Level 4 Est. Patient 11:52:20 CDT Pelon Quach MD [facility] CPT-89532 Level 4 Est. Patient 13:59:46 CDT Pelon Quach MD [facility] CPT-80225 Level 4 Est. Patient 15:10:48 CDT Pelon Quach MD [facility] CPT-67415 Level 4 Est. Patient 17:13:06 CDT Pelon Quach MD [facility] CPT-34871 Level 4 Est. Patient 18:47:47 CDT Pelon Quach MD [facility] CPT-63048 Level 3 Est. Patient 21:01:27 CDT Pelon Quach MD [facility] CPT-76282 Level 3 Est. Patient 14:07:03 CDT Taty Alvarado MD PhD [facility] CPT-95022 Level 3 New Patient 21:39:52 SUBMARINE OPERATOR Pelon Quach MD [facility] CPT-75542 Level 3 Est. Patient 14:28:44 CDT Glenn Thornton MD [facility] CPT-33883 Level 3 Est. Patient 16:35:00 CDT Glenn Thornton MD [facility] CPT-01518 Level 4 New Patient 17:06:27 CDT [facility] Procedures Code Procedure Name Date Entry Date Standard Description CPT-G0438 Initial Annual Wellness Exam 09:30:54 CDT CPT-27780 Prevnar 13 Intramuscular Suspension 14:34:25 CDT 12/27 CPT-69955 Chest 2V Frontal and Lat - XRAY USE ONLY 11:56:13 SUBMARINE OPERATOR CPT-27252 Cystoscopy 14:28:44 CDT CPT-94844 Bladder Scan 14:28:44 CDT CPT-79296 Indwelling Cath Change 17:06:27 CDT CPT-39803 Cystoscopy 17:06:27 CDT
--- OUTSIDE RECORDS SUMMARY | 2018-06-22 13:00 | XMS REPORT | Clinical Summary ---
Author Author Admin, ONESIMO Organization [facility] [place] Address Unknown Phone Unavailable Allergies, Adverse Reactions, [...] 1 po q8hr PRN Congestion DIPHENHYDRAMINE HCL 94734462221 Active Pelon Quach MD Active ZOFRAN 4 MG ORAL TABLET 1 po q6hr PRN Nausea ONDANSETRON HCL 01062057767 Active Pelon Quach MD Active IMODIUM A-D 2 MG ORAL TABLET One QID prn diarrhea. No more than 4 tabs daily LOPERAMIDE HCL 01073139231 Active Pelon Quach MD Active TYLENOL 325 MG ORAL TABLET 2 tabs po prn for pain elevated temp ACETAMINOPHEN 67427622560 Active Pelon Quach MD Active MUCINEX D 60-600 MG ORAL TABLET EXTENDED RELEASE 12 HOUR 1 po BID PRN Congestion PSEUDOEPHEDRINE-GUAIFENESIN 81435703359 Active Pelon Quach MD Active IBUPROFEN 200 MG ORAL TABLET q 6hrs prn pain IBUPROFEN 31966591109 Active Pelon Quach MD Active LORATADINE 10 MG ORAL TABLET 1 tablet by mouth daily prn LORATADINE 46524403337 Active Pelon Quach MD Active BANOPHEN 25 MG ORAL TABLET 1 po every 6 hours PRN allergic reaction DIPHENHYDRAMINE HCL 83024280934 No Longer Active Pelon Quach MD Active EASY TOUCH ALCOHOL PREP MEDIUM 70 % PAD Use with each finger stick and insulin admin Dx: E11.9 ALCOHOL SWABS 75346178770 Active Jaycee Torrez 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 HUMALOG KWIKPEN 100 UNIT/ML SUBCUTANEOUS SOLUTION PEN-INJECTOR inject 10 units subcutaneously before meals also sliding scale INSULIN LISPRO 69836166600 Active Pelon Quach MD Active NOVOLOG 100 UNIT/ML SUBCUTANEOUS SOLUTION 10 UNITS BID BEFORE BREAKFAST AND LUNCH INSULIN ASPART 57097148698 No Longer Active NICOLETTE Hitchcock Active NOVOLOG 100 UNIT/ML SUBCUTANEOUS SOLUTION 10 UNITS BEFORE SUPPER INSULIN ASPART 45005074846 No Longer Active NICOLETTE Hitchcock Active INVEGA 6 MG ORAL TABLET EXTENDED RELEASE 24 HOUR 1 po daily for schizophrenia PALIPERIDONE 83687687452 Active Pelon Quach MD Active LAMICTAL 25 MG ORAL TABLET 2 tabs by mouth twice a day LAMOTRIGINE 83878678534 No Longer Active Pelon Quach MD Active BACTROBAN 2 % EXTERNAL OINTMENT Apply to affected area BID 06/28 MUPIROCIN 25705030827 No Longer Active Pelon Quach MD Active INVEGA 6 MG ORAL TABLET EXTENDED RELEASE 24 HOUR 1 po daily for Schizophrenia PALIPERIDONE 97485176774 No Longer Active Pelon Quach MD Active TYLENOL 8 HOUR 650 MG ORAL TABLET EXTENDED RELEASE Take 1 tab po up to 3 times daily as needed ACETAMINOPHEN 11723989360 No Longer Active Pelon Quach MD Active IPRATROPIUM-ALBUTEROL 0.5-2.5 (3) MG/3ML INHALATION SOLUTION 1 neb treatment QID for cough Dx: J06.9 IPRATROPIUM-ALBUTEROL 04831103588 No Longer Active Pelon Quach MD Active BACTRIM DS 800-160 MG ORAL TABLET 1 tab by mouth twice daily 2016 TRIMETHOPRIM-SULFAMETHOXAZOLE 15220651024 No Longer Active Pelon Quach MD Active BACTRIM DS 800-160 MG ORAL TABLET 1 twice a day SULFAMETHOXAZOLE-TRIMETHOPRIM 66980509563 No Longer Active Pelon Quach MD Active IPRATROPIUM-ALBUTEROL 0.5-2.5 (3) MG/3ML INHALATION SOLUTION 1 neb treatment four times daily, for cough IPRATROPIUM-ALBUTEROL 86943247897 No Longer Active Jaycee Torrez APRN Active FUROSEMIDE 40 MG ORAL TABLET Take one by mouth daily FUROSEMIDE 22360529117 No Longer Active Jaycee Arell 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 LANTUS 100 UNIT/ML SUBCUTANEOUS SOLUTION 20 SUBQ AT HS INSULIN GLARGINE 76986677148 Active Pelon Quach MD Active LAMICTAL 25 MG ORAL TABLET 2 tabs po BID for convulsions LAMOTRIGINE 13997964640 Active Jaycee Arenando MOJICAN Active LASIX 20 MG ORAL TABLET 1 tablet by mouth every morning for edema FUROSEMIDE 46587797391 Active Jaycee Arenando MOJICAN Active BUSPIRONE HCL 10 MG ORAL TABLET 1 tab by mouth BID BUSPIRONE HCL 63286638156 Active Jaycee Torrez APRN Active ADULT ASPIRIN EC LOW STRENGTH 81 MG ORAL TABLET DELAYED RELEASE Take one by mouth daily ASPIRIN 66063105947 No Longer Active Pelon Quach MD Active ASPIRIN 81 MG ORAL TABLET 1 po qd ASPIRIN 52853387316 Active Pelon Quach MD Active ZOFRAN 4 MG ORAL TABLET 1 po q6hr PRN Nausea ONDANSETRON HCL 19777093540 No Longer Active Pelon Quach MD Active TYLENOL 325 MG ORAL TABLET 1-2 pills by mouth every 6 hours if needed for pain /fever ACETAMINOPHEN 61900873692 No Longer Active Pelon Quach MD Active INVEGA 6 MG ORAL TABLET EXTENDED RELEASE 24 HOUR 1 TAB ONCE DAILY PALIPERIDONE 48373967182 No Longer Active Carly Suggs Active TEGRETOL 200 MG ORAL TABLET by mouth twice a day CARBAMAZEPINE 14889295569 Active Taty Alvarado MD PhD Active FLOMAX 0.4 MG ORAL CAPSULE 1 Daily TAMSULOSIN HCL 35273279920 Active Marianela Juarez Active DILANTIN 100 MG ORAL CAPSULE Take one by mouth daily PHENYTOIN SODIUM EXTENDED 39383554249 No Longer Active Marianela Juarez Active DEPAKOTE SPRINKLES 125 MG ORAL CAPSULE DELAYED RELEASE SPRINKLE 4 capsules by mouth twice daily DIVALPROEX SODIUM 94277529616 No Longer Active Marianelachandrika Juarez Active LAMICTAL 200 MG ORAL TABLET 1 BY MOUTH TWICE A DAY LAMOTRIGINE 30308011085 Active Marianelachandrika Juarez Active LAMICTAL 100 MG ORAL TABLET by mouth twice a day LAMOTRIGINE 06384028568 No Longer Active Marianelachandrika Juarez Active LAMICTAL 150 MG ORAL TABLET by mouth twice a day LAMOTRIGINE 46236170755 No Longer Active Marianelachandrika Juarez Active DILANTIN 100 MG ORAL CAPSULE Take three by mouth daily PHENYTOIN SODIUM EXTENDED 98937423677 No Longer Active Marianela Juarez Active SENOKOT 8.6 MG ORAL TABLET take at bedtime SENNOSIDES 03786002041 Active Pelon Quach MD Active LIPITOR 20 MG ORAL TABLET take at bedtime ATORVASTATIN CALCIUM 00739241228 Active Glenn Thornton MD Active LISINOPRIL 2.5 MG ORAL TABLET Take one by mouth daily LISINOPRIL 58819022152 Active Glenn Thornton MD Active TRENTAL 400 MG CR-TABS by mouth twice a day PENTOXIFYLLINE 09818842716 Active Glenn Thornton MD Active KLOR-CON 10 10 MEQ ORAL TABLET EXTENDED RELEASE Take one by mouth daily POTASSIUM CHLORIDE 21466069798 Active Glenn Thornton MD Active BACTRIM DS 800-160 MG ORAL TABLET 1 twice a day BACTRIM DS 800-160 MG ORAL TABLET 19821119 SULFAMETHOXAZOLE-TRIMETHOPRIM Inactive BACTRIM DS 800-160 MG ORAL TABLET 1 tab by mouth twice daily 2016 BACTRIM DS 800-160 MG ORAL TABLET 19821119 TRIMETHOPRIM- SULFAMETHOXAZOLE Inactive BACTROBAN 2 % EXTERNAL OINTMENT Apply to affected area BID 06/28 BACTROBAN 2 % EXTERNAL OINTMENT 767341 MUPIROCIN Inactive DILANTIN 100 MG ORAL CAPSULE Take three by mouth daily DILANTIN 100 MG ORAL CAPSULE 715177 PHENYTOIN SODIUM EXTENDED Inactive DILANTIN 100 MG ORAL CAPSULE Take one by mouth daily DILANTIN 100 MG ORAL CAPSULE 613253 PHENYTOIN SODIUM EXTENDED Inactive FUROSEMIDE 40 MG ORAL TABLET Take one by mouth daily FUROSEMIDE 40 MG ORAL TABLET 018045 FUROSEMIDE Inactive TYLENOL 325 MG ORAL TABLET 1-2 pills by mouth every 6 hours if needed for pain /fever TYLENOL 325 MG ORAL TABLET 552494 ACETAMINOPHEN Inactive ZOFRAN 4 MG ORAL TABLET 1 po q6hr PRN Nausea ZOFRAN 4 MG ORAL TABLET 842551 ONDANSETRON HCL Inactive LAMICTAL 100 MG ORAL TABLET by mouth twice a day LAMICTAL 100 MG ORAL TABLET 462348 LAMOTRIGINE Inactive LAMICTAL 150 MG ORAL TABLET by mouth twice a day LAMICTAL 150 MG ORAL TABLET 728876 LAMOTRIGINE Inactive LAMICTAL 25 MG ORAL TABLET 2 tabs by mouth twice a day LAMICTAL 25 MG ORAL TABLET 850965 LAMOTRIGINE Inactive BANOPHEN 25 MG ORAL TABLET 1 po every 6 hours PRN allergic reaction BANOPHEN 25 MG ORAL TABLET 6309487 DIPHENHYDRAMINE HCL Inactive ADULT ASPIRIN EC LOW STRENGTH 81 MG ORAL TABLET DELAYED RELEASE Take one by mouth daily ADULT ASPIRIN EC LOW STRENGTH 81 MG ORAL TABLET DELAYED RELEASE 665438 ASPIRIN Inactive NOVOLOG 100 UNIT/ML SUBCUTANEOUS SOLUTION [...] IPRATROPIUM-ALBUTEROL 0.5-2.5 ( 3) MG/3ML INHALATION SOLUTION 8330043 IPRATROPIUM-ALBUTEROL Inactive IPRATROPIUM-ALBUTEROL 0.5-2.5 (3) MG/3ML INHALATION SOLUTION 1 neb treatment four times daily, for cough IPRATROPIUM-ALBUTEROL 0.5- 2.5 (3) MG/3ML INHALATION SOLUTION 5522979 IPRATROPIUM-ALBUTEROL Inactive DEPAKOTE SPRINKLES 125 MG ORAL CAPSULE DELAYED RELEASE SPRINKLE 4 capsules by mouth twice daily DEPAKOTE SPRINKLES 125 MG ORAL CAPSULE DELAYED RELEASE SPRINKLE 5210016 DIVALPROEX SODIUM Inactive Advance Directives Directive Description Start Date DURABLE POWER OF HADOOP APPLICATION DEVELOPER FOR HEALTHCARE PERMISSION TO SHARE ADVANCED [...] Panel - Chemistry sodium, serum 127 mmol/L 068-413 2312/07/28 potassium, serum 5.3 mmol/L 3.5-5.2 chloride, serum 92 mmol/L 98-107 carbon dioxide, venous blood 32.4 mmol/L 21.0-32.0 blood glucose 182 mg/dL 65-110 calcium, serum 9.4 mg/dL 8.5-10.1 urea nitrogen, blood 14 mg/dL 7-18 creatinine, serum 0.94 mg/dL 0.60-1.30 Lab Report: CBC, Comp. Metabolic Panel - Chemistry sodium, serum 129 mmol/L 711-555 3868/07/12 carbon dioxide, venous blood 27.8 mmol/L 21.0-32.0 [...] HGBA1C - Chemistry sodium, serum 123 mmol/L 042-220 8717/04/25 carbon dioxide, venous blood 26.2 mmol/L 21.0-32.0 [...] mg/dL Encounters Code Encounter Date Provider Facility CPT-80164 Level 4 Est. Patient 14:46:38 CDT Pelon Quach MD [facility] CPT-49171 Level 4 Est. Patient 08:43:11 CDT Pelon Quach MD [facility] CPT-73390 Level 4 Est. Patient 14:27:30 CDT Pelon Quach MD [facility] CPT-92391 Level 3 Est. Patient 10:32:17 CDT Jaycee Torrez [facility] CPT-04217 Level 3 Est. Patient 10:15:07 CDT Pelon Quach MD [facility] CPT-17330 Level 4 Est. Patient 09:30:54 CDT Pelon Quach MD [facility] CPT-81145 Level 4 Est. Patient 14:34:25 CDT Pelon Quach MD [facility] CPT-07914 Level 3 Est. Patient 11:51:35 BIOFUELS TECHNOLOGY MANAGER Rick Henson DO [facility] CPT-74745 Level 3 Est. Patient 12:13:33 BIOFUELS TECHNOLOGY MANAGER Erik Baptiste MD [facility] CPT-29339 Level 3 Est. Patient 09:40:44 BIOFUELS TECHNOLOGY MANAGER Jaycee Torrez [facility] CPT-67963 Level 3 Est. Patient 09:36:32 BIOFUELS TECHNOLOGY MANAGER Jaycee Torrez FINISHED METAL REPAIRER [facility] CPT-79122 Level 4 Est. Patient 16:57:02 BIOFUELS TECHNOLOGY MANAGER Pelon Quach MD [facility] CPT-37134 Level 4 Est. Patient 22:19:34 CDT Pelon Quach MD [facility] CPT-69466 Level 3 Est. Patient 00:34:41 CDT Pelon Quach MD [facility]-89148 Level 4 Est. Patient 11:19:14 CDT Pelon Quach MD [facility]-23037 Level 4 Est. Patient 16:43:30 BIOFUELS TECHNOLOGY MANAGER Pelon Quach MD [facility]-41767 Level 4 Est. Patient 12:42:18 CDT Pelon Quach MD [facility] CPT-07044 Level 4 Est. Patient 11:52:20 CDT [facility]-74551 Level 4 Est. Patient 13:59:46 CDT Pelon Quach [facility]-68030 Level 4 Est. Patient 15:10:48 CDT Pelon Quach MD [facility]-85026 Level 4 Est. Patient 17:13:06 CDT Pelon Quach MD [facility] CPT-60299 Level 4 Est. Patient 18:47:47 CDT Pelon Quach [facility]-63160 Level 3 Est. Patient 21:01:27 CDT Pelon Quach [facility]-35731 Level 3 Est. Patient 14:07:03 CDT Taty Alvarado MD PhD [facility] CPT-20692 Level 3 New Patient 21:39:52 BIOFUELS TECHNOLOGY MANAGER Pelon Quach [facility]-64730 Level 3 Est. Patient 14:28:44 CDT Glenn Thornton MD [facility]-09270 Level 3 Est. Patient 16:35:00 CDT Glenn Thornton MD [facility] CPT-77045 Level 4 New Patient 17:06:27 CDT Glenn Thornton MD [facility] [place] Procedures Code Procedure Name Date Entry Date Standard Description CPT-G0438 Initial Annual Wellness Exam 09:30:54 CDT CPT-74184 Prevnar 13 Intramuscular Suspension 14:34:25 CDT 12/27 CPT-03575 Chest 2V Frontal and Lat - XRAY USE ONLY 11:56:13 BIOFUELS TECHNOLOGY MANAGER CPT-09018 Cystoscopy 14:28:44 CDT CPT-31241 Bladder Scan 14:28:44 CDT CPT-59923 Indwelling Cath Change 17:06:27 CDT CPT-76306 Cystoscopy 17:06:27 CDT
--- OUTSIDE RECORDS SUMMARY | 2018-06-22 13:00 | XMS REPORT | Clinical Summary ---
Author Author Admin, [employer] Organization [facility] Address Unknown Phone Unavailable Allergies, Adverse Reactions, [...] tab po QID x 7 days ACETAMINOPHEN 64546069287 Active Fanta Rodas MA Active INVEGA [id number] 3MG BY MOUTH ONE TIME DAILY PALIPERIDONE [id number] 13214196581 Active Pelon Quach MD Active ASPIRIN 81 MG ORAL TABS 1 po qd ASPIRIN 27428979085 Active Pelon Quach MD Active ZOFRAN 4 MG TABS 1 po q6hr PRN Nausea ONDANSETRON HCL 46593238731 No Longer Active Pelon Quach MD Active TYLENOL 325 MG TAB 1-2 pills by mouth every 6 hours if needed for pain/fever ACETAMINOPHEN 45369084397 No Longer Active Pelon Quach MD Active INVEGA 6 MG ORAL [id number] 1 TAB ONCE DAILY PALIPERIDONE 61335540327 No Longer Active Carly Suggs Active LANTUS 100 UNIT/ML SC SOLN 18 SUBQ AT HS INSULIN GLARGINE 07271426494 Active Pelon Quach MD Active TEGRETOL 200 MG TABS by mouth twice a day CARBAMAZEPINE 55563767903 Active Taty Alvarado MD PhD Active NOVOLOG 100 UNIT/ML SC SOLN 7 UNITS BEFORE SUPPER INSULIN ASPART 61306940145 Active Marianela Raronny Active NOVOLOG 100 UNIT/ML SC SOLN 7 UNITS BID BEFORE BREAKFAST AND LUNCH INSULIN ASPART 92141538390 Active Marianela Juarez Active FLOMAX 0.4 MG CAPS 1 Daily TAMSULOSIN HCL 04305029968 Active Marianelachandrika Juarez Active DILANTIN 100 MG CAPS Take one by mouth daily PHENYTOIN SODIUM EXTENDED 27361942308 No Longer Active Marianela Juarez Active DEPAKOTE SPRINKLES 125 MG CPSP 4 capsules by mouth twice daily DIVALPROEX SODIUM 96584651540 No Longer Active Marianela Juarez Active LAMICTAL 200 MG ORAL TABS 1 BY MOUTH TWICE A DAY LAMOTRIGINE 50670951690 Active Marianelachandrika Juarez Active LAMICTAL 100 MG TABS by mouth twice a day LAMOTRIGINE 89970230474 No Longer Active Marianelachandrika Juarez Active LAMICTAL 150 MG TABS by mouth twice a day LAMOTRIGINE 57707053299 No Longer Active Marianelachandrika Juarez Active DILANTIN 100 MG CAPS Take three by mouth daily PHENYTOIN SODIUM EXTENDED 45842023250 No Longer Active Marianela Juarez Active SENOKOT 8.6 MG TABS take at bedtime SENNOSIDES 63974691596 Active Glenn Thornton MD Active LIPITOR 20 MG TABS take at bedtime ATORVASTATIN CALCIUM 21734454360 Active Glenn Thornton MD Active LISINOPRIL 2.5 MG TABS Take one by mouth daily LISINOPRIL 79509399760 Active Glenn Thornton MD Active TRENTAL 400 MG CR-TABS by mouth twice a day PENTOXIFYLLINE 05543535159 Active Glenn Thornton MD Active LAMICTAL 25 MG TABS by mouth twice a day LAMOTRIGINE 06152381038 Active Glenn Thornton MD Active BUSPIRONE HCL 10 MG TABS by mouth twice a day BUSPIRONE HCL 21989896873 Active Glenn Thornton MD Active FUROSEMIDE 40 MG TABS Take one by mouth daily FUROSEMIDE 21311525374 Active Glenn Thornton MD Active KLOR-CON 10 10 MEQ CR-TABS Take one by mouth daily POTASSIUM CHLORIDE 55417831678 Active Glenn Thornton MD Active ADULT ASPIRIN EC LOW STRENGTH 81 MG TBEC Take one by mouth daily ASPIRIN 79444235842 Active Glenn Thornton MD Active DILANTIN 100 MG CAPS Take three by mouth daily DILANTIN 100 MG CAPS 994365 PHENYTOIN SODIUM EXTENDED Inactive LAMICTAL 150 MG TABS by mouth twice a day LAMICTAL 150 MG TABS 063843 LAMOTRIGINE Inactive LAMICTAL 100 MG TABS by mouth twice a day LAMICTAL 100 MG TABS 052798 LAMOTRIGINE Inactive DEPAKOTE SPRINKLES 125 MG CPSP 4 capsules by mouth twice daily DEPAKOTE SPRINKLES 125 MG CPSP 0335188 DIVALPROEX SODIUM Inactive DILANTIN 100 MG CAPS Take one by mouth daily DILANTIN 100 MG CAPS 918804 PHENYTOIN SODIUM EXTENDED Inactive INVEGA 6 MG ORAL [id number] 1 TAB ONCE DAILY INVEGA 6 MG ORAL [id number] PALIPERIDONE Inactive TYLENOL 325 MG TAB 1-2 pills by mouth every 6 hours if needed for pain/fever TYLENOL 325 MG TAB 600573 ACETAMINOPHEN Inactive ZOFRAN 4 MG TABS 1 po q6hr PRN Nausea ZOFRAN 4 MG TABS 350046 ONDANSETRON HCL Inactive Advance Directives Directive Description Start Date DURABLE POWER OF INSTRUCTIONAL DESIGN SPECIALIST FOR HEALTHCARE PERMISSION TO SHARE Vital Signs [...] HGBA1C - Chemistry sodium, serum 132 mmol/L 490-001 0473/10/16 carbon dioxide, venous blood 29.0 mmol/L 21.0-32.0 [...] 4.3-6.0 Lab Report: CBC, Comp. Metabolic Panel, [facility] - Hematology leukocyte count, blood [...] mg/dL Encounters Code Encounter Date Provider Facility CPT-00698 Level 4 Est. Patient 11:19:14 CDT Pelon Quach MD [facility] CPT-84933 Level 4 Est. Patient 16:43:30 MANAGER E COMMERCE Pelon Quach MD [facility] CPT-46133 Level 4 Est. Patient 12:42:18 CDT Pelon Quach MD [facility] CPT-59640 Level 4 Est. Patient 11:52:20 CDT Pelon Quach MD [facility] CPT-31880 Level 4 Est. Patient 13:59:46 CDT Pelon Quach MD [facility] CPT-11959 Level 4 Est. Patient 15:10:48 CDT Pelon Quach MD [facility] CPT-83486 Level 4 Est. Patient 17:13:06 CDT Pelon Quach MD [facility] CPT-31704 Level 4 Est. Patient 18:47:47 CDT Pelon Quach MD [facility] CPT-41735 Level 3 Est. Patient 21:01:27 CDT Pelon Quach MD [facility] CPT-73566 Level 3 Est. Patient 14:07:03 CDT Taty Alvarado MD PhD [facility] CPT-56702 Level 3 New Patient 21:39:52 MANAGER E COMMERCE Pelon Quach MD [facility] CPT-25035 Level 3 Est. Patient 14:28:44 CDT Glenn Thornton MD [facility] CPT-47960 Level 3 Est. Patient 16:35:00 CDT Glenn Thornton MD [facility] CPT-21120 Level 4 New Patient 17:06:27 CDT Glenn Thornton MD [facility] [place] Procedures Code Procedure Name Date Entry Date Standard Description CPT-16441 Cystoscopy 14:28:44 CDT CPT-05610 Bladder Scan 14:28:44 CDT CPT-94811 Indwelling Cath Change 17:06:27 CDT CPT-30005 Cystoscopy 17:06:27 CDT
--- OUTSIDE RECORDS SUMMARY | 2018-06-22 13:02 | XMS REPORT | Clinical Summary ---
Author Author Admin, E Organization [employer] Address Unknown Phone Unavailable Allergies, Adverse Reactions, [...] 6 hours if needed for pain/fever ACETAMINOPHEN 38747497435 Active Pelon Quach MD Active LANTUS 100 UNIT/ML SC SOLN 18 SUBQ AT HS INSULIN GLARGINE 25507568080 Active Pelon Quach MD Active ZOFRAN 4 MG TABS 1 po q6hr PRN Nausea ONDANSETRON HCL 44991068814 Active Pelon Quach MD Active TEGRETOL 200 MG TABS by mouth twice a day CARBAMAZEPINE 29355406366 Active Taty Alvarado MD PhD Active NOVOLOG 100 UNIT/ML SC SOLN 7 UNITS BEFORE SUPPER INSULIN ASPART 37605384406 Active Marianela Shankarida Active NOVOLOG 100 UNIT/ML SC SOLN 7 UNITS BID BEFORE BREAKFAST AND LUNCH INSULIN ASPART 11696238524 Active Marianelachandrika Shankarida Active FLOMAX 0.4 MG CAPS 1 Daily TAMSULOSIN HCL 66586791391 Active Marianela Juarez Active INVEGA 6 MG ORAL [id number] 1 TAB ONCE DAILY PALIPERIDONE 63442602610 Active Marianela Juarez Active DILANTIN 100 MG CAPS Take one by mouth daily PHENYTOIN SODIUM EXTENDED 12259828395 No Longer Active Marianela Juarez Active DEPAKOTE SPRINKLES 125 MG CPSP 4 capsules by mouth twice daily DIVALPROEX SODIUM 65660581161 No Longer Active Marianela Shankarida Active LAMICTAL 200 MG ORAL TABS 1 BY MOUTH TWICE A DAY LAMOTRIGINE 10023255309 Active Marianelachandrika Juarez Active LAMICTAL 100 MG TABS by mouth twice a day LAMOTRIGINE 15423357239 No Longer Active Marianelachandrika Shankarida Active LAMICTAL 150 MG TABS by mouth twice a day LAMOTRIGINE 82934154904 No Longer Active Marianelachandrika Juarez Active DILANTIN 100 MG CAPS Take three by mouth daily PHENYTOIN SODIUM EXTENDED 52843535419 No Longer Active Marianelachandrika Shankarida Active SENOKOT 8.6 MG TABS take at bedtime SENNOSIDES 25880785043 Active Glenn Thornton MD Active LIPITOR 20 MG TABS take at bedtime ATORVASTATIN CALCIUM 94453949272 Active Glenn Thornton MD Active LISINOPRIL 2.5 MG TABS Take one by mouth daily LISINOPRIL 79702153030 Active Glenn Thornton MD Active TRENTAL 400 MG CR-TABS by mouth twice a day PENTOXIFYLLINE 29727981666 Active Glenn Thornton MD Active LAMICTAL 25 MG TABS by mouth twice a day LAMOTRIGINE 71285689210 Active Glenn Thornton MD Active BUSPIRONE HCL 10 MG TABS by mouth twice a day BUSPIRONE HCL 65780336823 Active Glenn Thornton MD Active FUROSEMIDE 40 MG TABS Take one by mouth daily FUROSEMIDE 61328131736 Active Glenn Thornton MD Active KLOR-CON 10 10 MEQ CR-TABS Take one by mouth daily POTASSIUM CHLORIDE 05014722755 Active Glenn Thornton MD Active ADULT ASPIRIN EC LOW STRENGTH 81 MG TBEC Take one by mouth daily ASPIRIN 45801300419 Active Glenn Thornton MD Active DILANTIN 100 MG CAPS Take three by mouth daily DILANTIN 100 MG CAPS 533099 PHENYTOIN SODIUM EXTENDED Inactive LAMICTAL 150 MG TABS by mouth twice a day LAMICTAL 150 MG TABS 19831025 LAMOTRIGINE Inactive LAMICTAL 100 MG TABS by mouth twice a day LAMICTAL 100 MG TABS 19831024 LAMOTRIGINE Inactive DEPAKOTE SPRINKLES 125 MG CPSP 4 capsules by mouth twice daily DEPAKOTE SPRINKLES 125 MG CPSP 3922665 DIVALPROEX SODIUM Inactive DILANTIN 100 MG CAPS Take one by mouth daily DILANTIN 100 MG CAPS 221769 PHENYTOIN SODIUM EXTENDED Inactive Advance Directives Directive Description Start Date DURABLE POWER OF 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 THERAPIST AIDE FOR HEALTHCARE PERMISSION TO SHARE Vital Signs [...] Yes Encounters Code Encounter Date Provider Facility CPT-94210 Level 4 Est. Patient 18:47:47 CDT Pelon Quach MD [facility] CPT-29892 Level 3 Est. Patient 21:01:27 CDT Pelon Quach MD [facility] CPT-19975 Level 3 Est. Patient 14:07:03 CDT Taty Alvarado MD PhD [facility] CPT-68056 Level 3 New Patient 21:39:52 CENTRAL MELT SPECIALIST Pelon Quach MD [facility] CPT-66668 Level 3 Est. Patient 14:28:44 CDT Glenn Thornton MD [facility] CPT-41203 Level 3 Est. Patient 16:35:00 CDT Glenn Thornton MD [facility] CPT-05469 Level 4 New Patient 17:06:27 CDT Glenn [facility]ornton [facility] Procedures Code Procedure Name Date Entry Date Standard Description CPT-55435 Cystoscopy 14:28:44 CDT CPT-48092 Bladder Scan 14:28:44 CDT CPT-87651 Indwelling Cath Change 17:06:27 CDT CPT-59981 Cystoscopy 17:06:27 CDT
--- OUTSIDE RECORDS SUMMARY | 2018-06-22 13:02 | XMS REPORT | Clinical Summary ---
Author Author Admin, [employer] Organization [facility] [employer] Address Unknown Phone Unavailable Allergies, Adverse Reactions, [...] TABS 1 twice a day SULFAMETHOXAZOLE- TRIMETHOPRIM 41786640961 Active Erik Baptiste MD Active IPRATROPIUM-ALBUTEROL 0.5-2.5 (3) MG/3ML INH SOLN 1 neb treatment QID for cough Dx: J06.9 IPRATROPIUM-ALBUTEROL 65454275031 Active Jaycee Garcia APRN Active IPRATROPIUM-ALBUTEROL 0.5-2.5 (3) MG/3ML SOLN 1 neb treatment four times daily , for cough IPRATROPIUM-ALBUTEROL 95117471290 No Longer Active Jaycee Garcia APRN Active TYLENOL 8 HOUR 650 MG ORAL CR-TABS Take 1 tab po up to 3 times daily as needed ACETAMINOPHEN 08664496365 Active Jaycee Jose CDL DRIVER Active FUROSEMIDE 40 MG TABS Take one by mouth daily FUROSEMIDE 49243978261 No Longer Active Jaycee Garcia VICTORINO Active LANTUS 100 UNIT/ML SC SOLN 20 SUBQ AT HS INSULIN GLARGINE 78297769068 Active Jyacee Jose CDL DRIVER Active LAMICTAL 25 MG ORAL TABS 2 tabs po BID for convulsions LAMOTRIGINE 03618993201 Active Jaycee Garcia VICTORINO Active INVEGA 6 MG ORAL [id number] 1 po daily for Schizophrenia PALIPERIDONE 47034965215 Active Jaycee Garcia VICTORINO Active LASIX 20 MG TAB 1 tablet by mouth every morning for edema FUROSEMIDE 41963727271 Active Jayceehugo Garcia APRN Active BUSPIRONE HCL 10 MG TABS 1 tab by mouth BID BUSPIRONE HCL 32134682248 Active Jaycee Garcia VICTORINO Active NOVOLOG 100 UNIT/ML SC SOLN 10 UNITS BEFORE SUPPER INSULIN ASPART 56654425198 Active Jaycee Garcia VICTORINO Active NOVOLOG 100 UNIT/ML SC SOLN 10 UNITS BID BEFORE BREAKFAST AND LUNCH INSULIN ASPART 33507489558 Active Jaycee Garcia VICTORINO Active LAMICTAL 25 MG TABS 2 tabs by mouth twice a day LAMOTRIGINE 36980623322 Active Pelon Quach MD Active ADULT ASPIRIN EC LOW STRENGTH 81 MG TBEC Take one by mouth daily ASPIRIN 24706842291 No Longer Active Pelon Quach MD Active ASPIRIN 81 MG ORAL TABS 1 po qd ASPIRIN 18952068982 Active Pelon Quach MD Active ZOFRAN 4 MG TABS 1 po q6hr PRN Nausea ONDANSETRON HCL 97511417813 No Longer Active Pelon Quach MD Active TYLENOL 325 MG TAB 1-2 pills by mouth every 6 hours if needed for pain/fever ACETAMINOPHEN 57479533936 No Longer Active Pelon Quach MD Active INVEGA 6 MG ORAL [id number] 1 TAB ONCE DAILY PALIPERIDONE 49732986848 No Longer Active Carly Suggs Active TEGRETOL 200 MG TABS by mouth twice a day CARBAMAZEPINE 40701469406 Active Taty Alvarado MD PhD Active FLOMAX 0.4 MG CAPS 1 Daily TAMSULOSIN HCL 58321959528 Active Marianelachandrika Juarez Active DILANTIN 100 MG CAPS Take one by mouth daily PHENYTOIN SODIUM EXTENDED 31472233527 No Longer Active Marianelachandrika Juarez Active DEPAKOTE SPRINKLES 125 MG CPSP 4 capsules by mouth twice daily DIVALPROEX SODIUM 35461175782 No Longer Active Marianelachandrika Juarez Active LAMICTAL 200 MG ORAL TABS 1 BY MOUTH TWICE A DAY LAMOTRIGINE 75396299127 Active Marianelachandrika Juarez Active LAMICTAL 100 MG TABS by mouth twice a day LAMOTRIGINE 78078939634 No Longer Active Marianelachandrika Juarez Active LAMICTAL 150 MG TABS by mouth twice a day LAMOTRIGINE 18576616711 No Longer Active Marianelachandrika Juarez Active DILANTIN 100 MG CAPS Take three by mouth daily PHENYTOIN SODIUM EXTENDED 01963519425 No Longer Active Marianela Juarez Active SENOKOT 8.6 MG TABS take at bedtime SENNOSIDES 62609600253 Active Glenn Thornton MD Active LIPITOR 20 MG TABS take at bedtime ATORVASTATIN CALCIUM 63722325824 Active Gelnn Thornton MD Active LISINOPRIL 2.5 MG TABS Take one by mouth daily LISINOPRIL 36860165710 Active Glenn Thornton MD Active TRENTAL 400 MG CR-TABS by mouth twice a day PENTOXIFYLLINE 54499780552 Active Glenn Thornton MD Active KLOR-CON 10 10 MEQ CR-TABS Take one by mouth daily POTASSIUM CHLORIDE 59072748921 Active Glenn Thornton MD Active DILANTIN 100 MG CAPS Take three by mouth daily DILANTIN 100 MG CAPS 938422 PHENYTOIN SODIUM EXTENDED Inactive LAMICTAL 150 MG TABS by mouth twice a day LAMICTAL 150 MG TABS 19831025 LAMOTRIGINE Inactive LAMICTAL 100 MG TABS by mouth twice a day LAMICTAL 100 MG TABS 19831024 LAMOTRIGINE Inactive DEPAKOTE SPRINKLES 125 MG CPSP 4 capsules by mouth twice daily DEPAKOTE SPRINKLES 125 MG CPSP 1022705 DIVALPROEX SODIUM Inactive DILANTIN 100 MG CAPS Take one by mouth daily DILANTIN 100 MG CAPS 563970 PHENYTOIN SODIUM EXTENDED Inactive INVEGA 6 MG ORAL [id number] 1 TAB ONCE DAILY INVEGA 6 MG ORAL [id number] PALIPERIDONE Inactive TYLENOL 325 MG TAB 1-2 pills by mouth every 6 hours if needed for pain/fever TYLENOL 325 MG TAB 891441 ACETAMINOPHEN Inactive ZOFRAN 4 MG TABS 1 po q6hr PRN Nausea ZOFRAN 4 MG TABS 262192 ONDANSETRON HCL Inactive ADULT ASPIRIN EC LOW STRENGTH 81 MG TBEC Take one by mouth daily ADULT ASPIRIN EC LOW STRENGTH 81 MG TBEC 613920 ASPIRIN Inactive FUROSEMIDE 40 MG TABS Take one by mouth daily FUROSEMIDE 40 MG TABS 308624 FUROSEMIDE Inactive IPRATROPIUM-ALBUTEROL 0.5-2.5 (3) MG/3ML SOLN 1 neb treatment four times daily , for cough IPRATROPIUM-ALBUTEROL 0.5-2.5 (3) MG/3ML SOLN 3892057 IPRATROPIUM-ALBUTEROL Inactive Advance Directives Directive Description Start Date DURABLE POWER OF CORPORATE DIRECTOR OF PHARMACY FOR HEALTHCARE PERMISSION TO SHARE ADVANCED DIRECTIVE [...] mg/dL Encounters Code Encounter Date Provider Facility CPT-25352 Level 3 Est. Patient 11:51:35 MANAGER DIGITAL Rick Henson DO [facility] CPT-09059 Level 3 Est. Patient 12:13:33 MANAGER DIGITAL Erik Baptiste MD [facility] CPT-27754 Level 3 Est. Patient 09:40:44 MANAGER DIGITAL Jaycee Garcia [facility] CPT-01600 Level 3 Est. Patient 09:36:32 MANAGER DIGITAL Jaycee Garcia [facility] CPT-97165 Level 4 Est. Patient 16:57:02 MANAGER DIGITAL Pelon Quach MD [facility] CPT-04713 Level 4 Est. Patient 22:19:34 CDT Pelon Quach MD [facility] CPT-28022 Level 3 Est. Patient 00:34:41 CDT Pelon Quach MD [facility] CPT-42695 Level 4 Est. Patient 11:19:14 CDT Pelon Quach MD [facility] CPT-78430 Level 4 Est. Patient 16:43:30 MANAGER DIGITAL Pelon Quach MD [facility] CPT-32636 Level 4 Est. Patient 12:42:18 CDT Pelon Quach MD [facility] CPT-66323 Level 4 Est. Patient 11:52:20 CDT Pelon Quach MD [facility] CPT-58929 Level 4 Est. Patient 13:59:46 CDT Pelon Quach MD [facility] CPT-88516 Level 4 Est. Patient 15:10:48 CDT Pelon Quach MD [facility] CPT-33974 Level 4 Est. Patient 17:13:06 CDT Pelon Quach MD [facility] CPT-68232 Level 4 Est. Patient 18:47:47 CDT Pelon Quach MD [facility] CPT-35763 Level 3 Est. Patient 21:01:27 CDT Pelon Quach MD [facility] CPT-94567 Level 3 Est. Patient 14:07:03 CDT Taty Alvarado MD PhD [facility] CPT-20029 Level 3 New Patient 21:39:52 MANAGER DIGITAL Pelon Quach MD [facility] CPT-83461 Level 3 Est. Patient 14:28:44 CDT Glenn Thornton MD [facility] CPT-93432 Level 3 Est. Patient 16:35:00 CDT Glenn Thornton MD [facility] CPT-06791 Level 4 New Patient 17:06:27 CDT Glenn Thornton MD [facility] Procedures Code Procedure Name Date Entry Date Standard Description CPT-82137 Chest 2V Frontal and Lat - XRAY USE ONLY 11:56:13 MANAGER DIGITAL CPT-74030 Cystoscopy 14:28:44 CDT CPT-93084 Bladder Scan 14:28:44 CDT CPT-28756 Indwelling Cath Change 17:06:27 CDT CPT-31676 Cystoscopy 17:06:27 CDT
--- OUTSIDE RECORDS SUMMARY | 2018-06-22 13:04 | XMS REPORT | Clinical Summary ---
Author Author Admin, [employer] Organization [facility] [employer] Address Unknown Phone Unavailable Allergies, Adverse Reactions, [...] Instructions Start Date Stop Date Generic Name [facility] Status Provider Patient Instruction INVEGA [id number] 3MG BY MOUTH ONE TIME DAILY PALIPERIDONE [id number] 22964889754 Active Pelon Quach MD Active ASPIRIN 81 MG ORAL TABS 1 po qd ASPIRIN 04484645417 Active Pelon Quach MD Active ZOFRAN 4 MG TABS 1 po q6hr PRN Nausea ONDANSETRON HCL 00676011387 No Longer Active Pelon Quach MD Active TYLENOL 325 MG TAB 1-2 pills by mouth every 6 hours if needed for pain/fever ACETAMINOPHEN 78414408294 No Longer Active Pelon Quach MD Active INVEGA 6 MG ORAL [id number] 1 TAB ONCE DAILY PALIPERIDONE 09815628634 No Longer Active Carly Suggs Active LANTUS 100 UNIT/ML SC SOLN 18 SUBQ AT HS INSULIN GLARGINE 46235909023 Active Pelon Quach MD Active TEGRETOL 200 MG TABS by mouth twice a day CARBAMAZEPINE 81080222628 Active Taty Alvarado MD PhD Active NOVOLOG 100 UNIT/ML SC SOLN 7 UNITS BEFORE SUPPER INSULIN ASPART 22083168131 Active Marianela Juarez Active NOVOLOG 100 UNIT/ML SC SOLN 7 UNITS BID BEFORE BREAKFAST AND LUNCH INSULIN ASPART 96662310891 Active Marianela Juarez Active FLOMAX 0.4 MG CAPS 1 Daily TAMSULOSIN HCL 00820350039 Active Marianela Juarez Active DILANTIN 100 MG CAPS Take one by mouth daily PHENYTOIN SODIUM EXTENDED 07744160872 No Longer Active Marianela Juarez Active DEPAKOTE SPRINKLES 125 MG CPSP 4 capsules by mouth twice daily DIVALPROEX SODIUM 35415815501 No Longer Active Marianela Juarez Active LAMICTAL 200 MG ORAL TABS 1 BY MOUTH TWICE A DAY LAMOTRIGINE 15092951945 Active Marianelachandrika Juarez Active LAMICTAL 100 MG TABS by mouth twice a day LAMOTRIGINE 04868553455 No Longer Active Marianela Juarez Active LAMICTAL 150 MG TABS by mouth twice a day LAMOTRIGINE 08878720957 No Longer Active Marianela Raida Active DILANTIN 100 MG CAPS Take three by mouth daily PHENYTOIN SODIUM EXTENDED 49777410359 No Longer Active Marianela Larry Active SENOKOT 8.6 MG TABS take at bedtime SENNOSIDES 43153161925 Active Glenn Thornton MD Active LIPITOR 20 MG TABS take at bedtime ATORVASTATIN CALCIUM 69806966361 Active Glenn Thornton MD Active LISINOPRIL 2.5 MG TABS Take one by mouth daily LISINOPRIL 64946630200 Active Glenn Thornton MD Active TRENTAL 400 MG CR-TABS by mouth twice a day PENTOXIFYLLINE 41072968722 Active Glenn Thornton MD Active LAMICTAL 25 MG TABS by mouth twice a day LAMOTRIGINE 07112724095 Active Glenn Thornton MD Active BUSPIRONE HCL 10 MG TABS by mouth twice a day BUSPIRONE HCL 57665635663 Active Glenn Thornton MD Active FUROSEMIDE 40 MG TABS Take one by mouth daily FUROSEMIDE 49166613176 Active Glenn Thornton MD Active KLOR-CON 10 10 MEQ CR-TABS Take one by mouth daily POTASSIUM CHLORIDE 43220496755 Active Glenn Thornton MD Active ADULT ASPIRIN EC LOW STRENGTH 81 MG TBEC Take one by mouth daily ASPIRIN 49491425094 Active Glenn Thornton MD Active DILANTIN 100 MG CAPS Take three by mouth daily DILANTIN 100 MG CAPS 222264 PHENYTOIN SODIUM EXTENDED Inactive LAMICTAL 150 MG TABS by mouth twice a day LAMICTAL 150 MG TABS 063673 LAMOTRIGINE Inactive LAMICTAL 100 MG TABS by mouth twice a day LAMICTAL 100 MG TABS 348278 LAMOTRIGINE Inactive DEPAKOTE SPRINKLES 125 MG CPSP 4 capsules by mouth twice daily DEPAKOTE SPRINKLES 125 MG CPSP 8347466 DIVALPROEX SODIUM Inactive DILANTIN 100 MG CAPS Take one by mouth daily DILANTIN 100 MG CAPS 320362 PHENYTOIN SODIUM EXTENDED Inactive INVEGA 6 MG ORAL [id number] 1 TAB ONCE DAILY INVEGA 6 MG ORAL [id number] PALIPERIDONE Inactive TYLENOL 325 MG TAB 1-2 pills by mouth every 6 hours if needed for pain/fever TYLENOL 325 MG TAB 487885 ACETAMINOPHEN Inactive ZOFRAN 4 MG TABS 1 po q6hr PRN Nausea ZOFRAN 4 MG TABS 167965 ONDANSETRON HCL Inactive Advance Directives Directive Description Start Date DURABLE POWER OF PNEUMATIC TESTER MECHANIC FOR HEALTHCARE PERMISSION TO SHARE Vital Signs [...] E&M - 3141-9 164 [lb_av] Weight Measured Diagnostic Results Date Name [...] % Lab Report: CBC, Comp. Metabolic Panel, [facility] - Chemistry sodium, serum 132 mmol/L [phone]/10/16 carbon dioxide, venous blood 29.0 mmol/L 21.0-32.0 [...] 4.3-6.0 Lab Report: CBC, Comp. Metabolic Panel, [facility] - Hematology leukocyte count, blood 5.8 [...] mg/dL Encounters Code Encounter Date Provider Facility CPT-13094 Level 4 Est. Patient 16:43:30 LEARNING CONSULTANT Pelon Quach MD [facility] CPT-48522 Level 4 Est. Patient 12:42:18 CDT Pelon Quach MD [facility] CPT-82205 Level 4 Est. Patient 11:52:20 CDT Pelon Qucah MD [facility] CPT-34688 Level 4 Est. Patient 13:59:46 CDT Pelon Quach MD [facility] CPT-62279 Level 4 Est. Patient 15:10:48 CDT Pelon Quach MD [facility] CPT-54417 Level 4 Est. Patient 17:13:06 CDT Pelon Quach MD [facility] CPT-61847 Level 4 Est. Patient 18:47:47 CDT Pelon Quach MD [facility] CPT-02660 Level 3 Est. Patient 21:01:27 CDT Pelon Quach MD [facility] CPT-14558 Level 3 Est. Patient 14:07:03 CDT Taty Alvarado MD [facility] CPT-06205 Level 3 New Patient 21:39:52 LEARNING CONSULTANT Pelon Quach MD [facility] CPT-00679 Level 3 Est. Patient 14:28:44 CDT Glenn Thornton MD [facility] CPT-43721 Level 3 Est. Patient 16:35:00 CDT Glenn Thornton MD [facility] CPT-58573 Level 4 New Patient 17:06:27 CDT Glenn Thornton MD [facility] Procedures Code Procedure Name Date Entry Date Standard Description CPT-50547 Cystoscopy 14:28:44 CDT CPT-51832 Bladder Scan 14:28:44 CDT CPT-09422 Indwelling Cath Change 17:06:27 CDT CPT-28996 Cystoscopy 17:06:27 CDT
--- OUTSIDE RECORDS SUMMARY | 2018-06-22 13:04 | XMS REPORT | Clinical Summary ---
Author Author Admin, [employer] Organization [facility] [place] Address Unknown Phone Unavailable Allergies, Adverse Reactions, [...] Name NDC Status Provider Patient Instruction INVEGA [id number] 3MG BY MOUTH ONE TIME DAILY PALIPERIDONE [id number] Active Pelon Quach MD Active ASPIRIN 81 MG ORAL TABS 1 po qd ASPIRIN 19025042555 Active Pelon Quach MD Active ZOFRAN 4 MG TABS 1 po q6hr PRN Nausea ONDANSETRON HCL 97154531116 No Longer Active Pelon Quach MD Active TYLENOL 325 MG TAB 1-2 pills by mouth every 6 hours if needed for pain/fever ACETAMINOPHEN 48662221877 No Longer Active Pelon Quach MD Active INVEGA 6 MG ORAL [id number] 1 TAB ONCE DAILY PALIPERIDONE 71894260108 No Longer Active Carly Suggs Active LANTUS 100 UNIT/ML SC SOLN 18 SUBQ AT HS INSULIN GLARGINE 82107590398 Active Pelon Quach MD Active TEGRETOL 200 MG TABS by mouth twice a day CARBAMAZEPINE 21948640055 Active Taty Alvarado MD PhD Active NOVOLOG 100 UNIT/ML SC SOLN 7 UNITS BEFORE SUPPER INSULIN ASPART 63890124326 Active Marianela Juarez Active NOVOLOG 100 UNIT/ML SC SOLN 7 UNITS BID BEFORE BREAKFAST AND LUNCH INSULIN ASPART 24340931142 Active Marianelachandrika Juarez Active FLOMAX 0.4 MG CAPS 1 Daily TAMSULOSIN HCL 08653245443 Active Marianelachandrika Juarez Active DILANTIN 100 MG CAPS Take one by mouth daily PHENYTOIN SODIUM EXTENDED 37873727554 No Longer Active Marianelachandrika Juarez Active DEPAKOTE SPRINKLES 125 MG CPSP 4 capsules by mouth twice daily DIVALPROEX SODIUM 16968718702 No Longer Active Marianelachandrika Juarez Active LAMICTAL 200 MG ORAL TABS 1 BY MOUTH TWICE A DAY LAMOTRIGINE 03427686760 Active Marianela Juarez Active LAMICTAL 100 MG TABS by mouth twice a day LAMOTRIGINE 59822711361 No Longer Active Marianela Juarez Active LAMICTAL 150 MG TABS by mouth twice a day LAMOTRIGINE 88243087851 No Longer Active Marianela Juarez Active DILANTIN 100 MG CAPS Take three by mouth daily PHENYTOIN SODIUM EXTENDED 79128763519 No Longer Active Marianela Juarez Active SENOKOT 8.6 MG TABS take at bedtime SENNOSIDES 67558275304 Active Glenn Thornton MD Active LIPITOR 20 MG TABS take at bedtime ATORVASTATIN CALCIUM 40900439572 Active Glenn Thornton MD Active LISINOPRIL 2.5 MG TABS Take one by mouth daily LISINOPRIL 76203852182 Active Glenn Thornton MD Active TRENTAL 400 MG CR-TABS by mouth twice a day PENTOXIFYLLINE 95635041435 Active Glenn Thornton MD Active LAMICTAL 25 MG TABS by mouth twice a day LAMOTRIGINE 66855832210 Active Glenn Thornton MD Active BUSPIRONE HCL 10 MG TABS by mouth twice a day BUSPIRONE HCL 70691528579 Active Glenn Thornton MD Active FUROSEMIDE 40 MG TABS Take one by mouth daily FUROSEMIDE 74545405464 Active Glenn Thornton MD Active KLOR-CON 10 10 MEQ CR-TABS Take one by mouth daily POTASSIUM CHLORIDE 33887182347 Active Glenn Thornton MD Active ADULT ASPIRIN EC LOW STRENGTH 81 MG TBEC Take one by mouth daily ASPIRIN 24897789618 Active Glenn Thornton MD Active DILANTIN 100 MG CAPS Take three by mouth daily DILANTIN 100 MG CAPS 424406 PHENYTOIN SODIUM EXTENDED Inactive LAMICTAL 150 MG TABS by mouth twice a day LAMICTAL 150 MG TABS 498897 LAMOTRIGINE Inactive LAMICTAL 100 MG TABS by mouth twice a day LAMICTAL 100 MG TABS 19831024 LAMOTRIGINE Inactive DEPAKOTE SPRINKLES 125 MG CPSP 4 capsules by mouth twice daily DEPAKOTE SPRINKLES [address] [facility] 0350786 DIVALPROEX SODIUM Inactive DILANTIN 100 MG CAPS Take one by mouth daily DILANTIN 100 MG CAPS 906512 PHENYTOIN SODIUM EXTENDED Inactive INVEGA 6 MG ORAL [id number] 1 TAB ONCE DAILY INVEGA 6 MG ORAL [id number] PALIPERIDONE Inactive TYLENOL 325 MG TAB 1-2 pills by mouth every 6 hours if needed for pain/fever TYLENOL 325 MG TAB 868027 ACETAMINOPHEN Inactive ZOFRAN 4 MG TABS 1 po q6hr PRN Nausea ZOFRAN 4 MG TABS 059838 ONDANSETRON HCL Inactive Advance Directives Directive Description Start Date 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 Metabolic Panel, [facility] - Hematology leukocyte count, blood 5.8 [...] mg/dL Encounters Code Encounter Date Provider Facility CPT-21708 Level 4 Est. Patient 11:19:14 CDT Pelon Quach MD [facility] CPT-86003 Level 4 Est. 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 Patient 12:42:18 CDT Pelon Quach MD [facility] CPT-66373 Level 4 Est. Patient 11:52:20 CDT Pelon Quach MD [facility] CPT-02657 Level 4 Est. Patient 13:59:46 CDT Pelon Quach MD [facility] CPT-32271 Level 4 Est. Patient 15:10:48 CDT Pelon Quach MD [facility] CPT-36411 Level 4 Est. Patient 17:13:06 CDT Pelon Quach MD [facility] CPT-78666 Level 4 Est. Patient 18:47:47 CDT Pelon Quach MD [facility] CPT-54399 Level 3 Est. Patient 21:01:27 CDT Pelon Quach MD [facility] CPT-18418 Level 3 Est. Patient 14:07:03 CDT Taty Alvarado MD PhD [facility] CPT-94198 Level 3 New Patient 21:39:52 [employer] Pelon Quach MD [facility] CPT-90640 Level 3 Est. Patient 14:28:44 CDT Glenn Thornton MD [facility] CPT-68982 Level 3 Est. Patient 16:35:00 CDT Glenn Thornton MD [facility] CPT-80788 Level 4 New Patient 17:06:27 CDT Glenn Thornton MD [facility] Procedures Code Procedure Name Date Entry Date Standard Description CPT-02123 Cystoscopy 14:28:44 CDT CPT-99208 Bladder Scan 14:28:44 CDT CPT-50884 Indwelling Cath Change 17:06:27 CDT CPT-96933 Cystoscopy 17:06:27 CDT
--- OUTSIDE RECORDS SUMMARY | 2018-06-22 13:05 | XMS REPORT | Clinical Summary ---
Author Author Admin, [employer] Organization [facility] Address Unknown Phone Unavailable Allergies, Adverse Reactions, [...] Instructions Start Date Stop Date Generic Name [facility] Status Provider Patient Instruction INVEGA [id number] 3MG BY MOUTH ONE TIME DAILY PALIPERIDONE [id number] 79332604634 Active Pelon Quach MD Active ASPIRIN 81 MG ORAL TABS 1 po qd ASPIRIN 09555125918 Active Pelon Quach MD Active ZOFRAN 4 MG TABS 1 po q6hr PRN Nausea ONDANSETRON HCL 40055145120 No Longer Active Pelon Quach MD Active TYLENOL 325 MG TAB 1-2 pills by mouth every 6 hours if needed for pain/fever ACETAMINOPHEN 83172949894 No Longer Active Pelon Quach MD Active INVEGA 6 MG ORAL [id number] 1 TAB ONCE DAILY PALIPERIDONE 69373037398 No Longer Active Carly Suggs Active LANTUS 100 UNIT/ML SC SOLN 18 SUBQ AT HS INSULIN GLARGINE 50219930406 Active Pelon Quach MD Active TEGRETOL 200 MG TABS by mouth twice a day CARBAMAZEPINE 07622735810 Active Taty Alvarado MD PhD Active NOVOLOG 100 UNIT/ML SC SOLN 7 UNITS BEFORE SUPPER INSULIN ASPART 62701592400 Active Marianela Juarez Active NOVOLOG 100 UNIT/ML SC SOLN 7 UNITS BID BEFORE BREAKFAST AND LUNCH INSULIN ASPART 42366621736 Active Marianela Juarez Active FLOMAX 0.4 MG CAPS 1 Daily TAMSULOSIN HCL 41151783992 Active Marianela Juarez Active DILANTIN 100 MG CAPS Take one by mouth daily PHENYTOIN SODIUM EXTENDED 04668574461 No Longer Active Marianela Juarez Active DEPAKOTE SPRINKLES 125 MG CPSP 4 capsules by mouth twice daily DIVALPROEX SODIUM 29597495288 No Longer Active Marianela Juarez Active LAMICTAL 200 MG ORAL TABS 1 BY MOUTH TWICE A DAY LAMOTRIGINE 20586426343 Active Marianelachandrika Juarez Active LAMICTAL 100 MG TABS by mouth twice a day LAMOTRIGINE 02723453462 No Longer Active Marianela Juarez Active LAMICTAL 150 MG TABS by mouth twice a day LAMOTRIGINE 96233564086 No Longer Active Marianela Raida Active DILANTIN 100 MG CAPS Take three by mouth daily PHENYTOIN SODIUM EXTENDED 31501005835 No Longer Active Marianela Larry Active SENOKOT 8.6 MG TABS take at bedtime SENNOSIDES 16992276394 Active Glenn Thornton MD Active LIPITOR 20 MG TABS take at bedtime ATORVASTATIN CALCIUM 12704482294 Active Glenn Thornton MD Active LISINOPRIL 2.5 MG TABS Take one by mouth daily LISINOPRIL 19918584039 Active Glenn Thornton MD Active TRENTAL 400 MG CR-TABS by mouth twice a day PENTOXIFYLLINE 39090229107 Active Glenn Thornton MD Active LAMICTAL 25 MG TABS by mouth twice a day LAMOTRIGINE 36794705572 Active Glenn Thornton MD Active BUSPIRONE HCL 10 MG TABS by mouth twice a day BUSPIRONE HCL 34651597847 Active Glenn Thornton MD Active FUROSEMIDE 40 MG TABS Take one by mouth daily FUROSEMIDE 08180953303 Active Glenn Thornton MD Active KLOR-CON 10 10 MEQ CR-TABS Take one by mouth daily POTASSIUM CHLORIDE 42912050578 Active Glenn Thornton MD Active ADULT ASPIRIN EC LOW STRENGTH 81 MG TBEC Take one by mouth daily ASPIRIN 12036863394 Active Glenn Thornton MD Active DILANTIN 100 MG CAPS Take three by mouth daily DILANTIN 100 MG CAPS 233520 PHENYTOIN SODIUM EXTENDED Inactive LAMICTAL 150 MG TABS by mouth twice a day LAMICTAL 150 MG TABS 629467 LAMOTRIGINE Inactive LAMICTAL 100 MG TABS by mouth twice a day LAMICTAL 100 MG TABS 298020 LAMOTRIGINE Inactive DEPAKOTE SPRINKLES 125 MG CPSP 4 capsules by mouth twice daily DEPAKOTE SPRINKLES 125 MG CPSP 7711665 DIVALPROEX SODIUM Inactive DILANTIN 100 MG CAPS Take one by mouth daily DILANTIN 100 MG CAPS 104930 PHENYTOIN SODIUM EXTENDED Inactive INVEGA 6 MG ORAL [id number] 1 TAB ONCE DAILY INVEGA 6 MG ORAL [id number]-ENP PALIPERIDONE Inactive TYLENOL 325 MG TAB 1-2 pills by mouth every 6 hours if needed for pain/fever TYLENOL 325 MG TAB 009124 ACETAMINOPHEN Inactive ZOFRAN 4 MG TABS 1 po q6hr PRN Nausea ZOFRAN 4 MG TABS 836344 ONDANSETRON HCL Inactive Advance Directives Directive Description Start Date 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 Metabolic Panel, [facility] - Chemistry sodium, serum 132 mmol/L 128-088 9836/10/16 carbon dioxide, venous blood 29.0 mmol/L 21.0-32.0 [...] mg/dL Encounters Code Encounter Date Provider Facility CPT-02109 Level 4 Est. 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 CPT-10122 Level 4 Est. Patient 12:42:18 CDT Pelon Quach MD [facility] CPT-12950 Level 4 Est. Patient 11:52:20 CDT Pelon Quach MD [facility] CPT-70179 Level 4 Est. Patient 13:59:46 CDT Pelon Quach MD [facility] CPT-61959 Level 4 Est. Patient 15:10:48 CDT Pelon Quach MD [facility] CPT-46528 Level 4 Est. Patient 17:13:06 CDT Pelon Quach MD [facility] CPT-20901 Level 4 Est. Patient 18:47:47 CDT Pelon Quach MD [facility] CPT-58785 Level 3 Est. Patient 21:01:27 CDT Pelon Quach MD [facility] CPT-75725 Level 3 Est. 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 Patient 14:28:44 CDT Glenn Thornton MD [facility] CPT-71938 Level 3 Est. Patient 16:35:00 CDT Glenn Thornton MD [facility] CPT-64586 Level 4 New Patient 17:06:27 CDT Glenn Thornton MD [facility] Procedures Code Procedure Name Date Entry Date Standard Description CPT-06964 Cystoscopy 14:28:44 CDT CPT-45313 Bladder Scan 14:28:44 CDT CPT-09643 Indwelling Cath Change 17:06:27 CDT CPT-88826 Cystoscopy 17:06:27 CDT
--- OUTSIDE RECORDS SUMMARY | 2018-06-22 13:05 | XMS REPORT | Clinical Summary ---
Author Author Admin, ONESIMO Organization [facility] Address Unknown Phone Unavailable Allergies, Adverse Reactions, [...] TABS 1 twice a day SULFAMETHOXAZOLE- TRIMETHOPRIM 91559335646 Active Erik Baptiste MD Active IPRATROPIUM-ALBUTEROL 0.5-2.5 (3) MG/3ML INH SOLN 1 neb treatment QID for cough Dx: J06.9 IPRATROPIUM-ALBUTEROL 40997799805 Active NICOLETTE Hitchcock Active IPRATROPIUM-ALBUTEROL 0.5-2.5 (3) MG/3ML SOLN 1 neb treatment four times daily , for cough IPRATROPIUM-ALBUTEROL 37214967770 No Longer Active Jaycee Garcia APRN Active TYLENOL 8 HOUR 650 MG ORAL CR-TABS Take 1 tab po up to 3 times daily as needed ACETAMINOPHEN 06964451609 Active Jayceehugo Garcia APRN Active FUROSEMIDE 40 MG TABS Take one by mouth daily FUROSEMIDE 39386954539 No Longer Active Jaycee Garcia VICTORINO Active LANTUS 100 UNIT/ML SC SOLN 20 SUBQ AT HS INSULIN GLARGINE 21460608076 Active Jayceehugo Garcia APRN Active LAMICTAL 25 MG ORAL TABS 2 tabs po BID for convulsions LAMOTRIGINE 97900817106 Active Jaycee Jose VICTORINO Active INVEGA 6 MG ORAL [id number] 1 po daily for Schizophrenia PALIPERIDONE 48620549800 Active Jayceehugo Garcia APRN Active LASIX 20 MG TAB 1 tablet by mouth every morning for edema FUROSEMIDE 12777146400 Active Jaycee Jose VICTORINO Active BUSPIRONE HCL 10 MG TABS 1 tab by mouth BID BUSPIRONE HCL 01805969935 Active Jayceehugo Garcia APRN Active NOVOLOG 100 UNIT/ML SC SOLN 10 UNITS BEFORE SUPPER INSULIN ASPART 98015849741 Active Jaycee Garcia VICTORINO Active NOVOLOG 100 UNIT/ML SC SOLN 10 UNITS BID BEFORE BREAKFAST AND LUNCH INSULIN ASPART 66452724412 Active Jaycee Garcia VICTORINO Active LAMICTAL 25 MG TABS 2 tabs by mouth twice a day LAMOTRIGINE 79104214902 Active Pelon Quach MD Active ADULT ASPIRIN EC LOW STRENGTH 81 MG TBEC Take one by mouth daily ASPIRIN 23712379814 No Longer Active Pelon Quach MD Active ASPIRIN 81 MG ORAL TABS 1 po qd ASPIRIN 83986622946 Active Pelon Quach MD Active ZOFRAN 4 MG TABS 1 po q6hr PRN Nausea ONDANSETRON HCL 67879304614 No Longer Active Pelon Quach MD Active TYLENOL 325 MG TAB 1-2 pills by mouth every 6 hours if needed for pain/fever ACETAMINOPHEN 99947950292 No Longer Active Pelon Quach MD Active INVEGA 6 MG ORAL [id number] 1 TAB ONCE DAILY PALIPERIDONE 62280388871 No Longer Active Carly Suggs Active TEGRETOL 200 MG TABS by mouth twice a day CARBAMAZEPINE 44485753143 Active Taty Alvarado MD PhD Active FLOMAX 0.4 MG CAPS 1 Daily TAMSULOSIN HCL 38047554479 Active Marianela Juarez Active DILANTIN 100 MG CAPS Take one by mouth daily PHENYTOIN SODIUM EXTENDED 40087389642 No Longer Active Marianela Juarez Active DEPAKOTE SPRINKLES 125 MG CPSP 4 capsules by mouth twice daily DIVALPROEX SODIUM 13330231758 No Longer Active Marianelachandrika Juarez Active LAMICTAL 200 MG ORAL TABS 1 BY MOUTH TWICE A DAY LAMOTRIGINE 20858528310 Active Marianelachandrika Juarez Active LAMICTAL 100 MG TABS by mouth twice a day LAMOTRIGINE 00427654328 No Longer Active Marianelachandrika Juarez Active LAMICTAL 150 MG TABS by mouth twice a day LAMOTRIGINE 53095278872 No Longer Active Marianelachandrika Shankarronny Active DILANTIN 100 MG CAPS Take three by mouth daily PHENYTOIN SODIUM EXTENDED 48927478401 No Longer Active Marianela Juarez Active SENOKOT 8.6 MG TABS take at bedtime SENNOSIDES 35776327512 Active Glenn Thornton MD Active LIPITOR 20 MG TABS take at bedtime ATORVASTATIN CALCIUM 60394880580 Active Glenn Thornton MD Active LISINOPRIL 2.5 MG TABS Take one by mouth daily LISINOPRIL 64679308466 Active Glenn Thornton MD Active TRENTAL 400 MG CR-TABS by mouth twice a day PENTOXIFYLLINE 75719962293 Active Glenn Thornton MD Active KLOR-CON 10 10 MEQ CR-TABS Take one by mouth daily POTASSIUM CHLORIDE 04435712425 Active Glenn Thornton MD Active DILANTIN 100 MG CAPS Take three by mouth daily DILANTIN 100 MG CAPS 252796 PHENYTOIN SODIUM EXTENDED Inactive LAMICTAL 150 MG TABS by mouth twice a day LAMICTAL 150 MG TABS 19831025 LAMOTRIGINE Inactive LAMICTAL 100 MG TABS by mouth twice a day LAMICTAL 100 MG TABS 19831024 LAMOTRIGINE Inactive DEPAKOTE SPRINKLES 125 MG CPSP 4 capsules by mouth twice daily DEPAKOTE SPRINKLES 125 MG CPSP 2195458 DIVALPROEX SODIUM Inactive DILANTIN 100 MG CAPS Take one by mouth daily DILANTIN 100 MG CAPS 424959 PHENYTOIN SODIUM EXTENDED Inactive INVEGA 6 MG ORAL [id number] 1 TAB ONCE DAILY INVEGA 6 MG ORAL ER90H-JKA PALIPERIDONE Inactive TYLENOL 325 MG TAB 1-2 pills by mouth every 6 hours if needed for pain/fever TYLENOL 325 MG TAB 185833 ACETAMINOPHEN Inactive ZOFRAN 4 MG TABS 1 po q6hr PRN Nausea ZOFRAN 4 MG TABS 549420 ONDANSETRON HCL Inactive ADULT ASPIRIN EC LOW STRENGTH 81 MG TBEC Take one by mouth daily ADULT ASPIRIN EC LOW STRENGTH 81 MG TBEC 675116 ASPIRIN Inactive FUROSEMIDE 40 MG TABS Take one by mouth daily FUROSEMIDE 40 MG TABS 948834 FUROSEMIDE Inactive IPRATROPIUM-ALBUTEROL 0.5-2.5 (3) MG/3ML SOLN 1 neb treatment four times daily , for cough IPRATROPIUM-ALBUTEROL 0.5-2.5 (3) MG/3ML SOLN 0650410 IPRATROPIUM-ALBUTEROL Inactive Advance Directives Directive Description Start Date DURABLE POWER OF PERSONAL CHEF FOR HEALTHCARE PERMISSION TO SHARE ADVANCED DIRECTIVE [...] mg/dL Encounters Code Encounter Date Provider Facility CPT-91710 Level 3 Est. 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 Patient 09:40:44 ENGRAVER BLOCK Jaycee Garcia [facility] CPT-82639 Level 3 Est. Patient 09:36:32 ENGRAVER BLOCK Jaycee Garcia [facility] CPT-38047 Level 4 Est. 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 Patient 22:19:34 CDT Pelon Quach MD [facility] CPT-74431 Level 3 Est. Patient 00:34:41 CDT Pelon Quach MD [facility]-10523 Level 4 Est. Patient 11:19:14 CDT Pelon Quach MD [facility] CPT-59200 Level 4 Est. 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 Patient 12:42:18 CDT Pelon Quach MD [facility] CPT-41721 Level 4 Est. Patient 11:52:20 CDT Pelon Quach MD [facility] CPT-45795 Level 4 Est. Patient 13:59:46 CDT Pelon Quach MD [facility] CPT-98250 Level 4 Est. Patient 15:10:48 CDT Pelon Quach MD [facility] CPT-50710 Level 4 Est. Patient 17:13:06 CDT Pelon Quach MD [facility] CPT-50416 Level 4 Est. Patient 18:47:47 CDT Pelon Quach MD [facility] CPT-35277 Level 3 Est. Patient 21:01:27 CDT Pelon Quach MD [facility] CPT-37044 Level 3 Est. 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 Patient 14:28:44 CDT Glenn Thornton MD [facility] CPT-75677 Level 3 Est. Patient 16:35:00 CDT Glenn Thornton MD [facility] CPT-34117 Level 4 New Patient 17:06:27 CDT Glenn Thornton MD [facility] Procedures Code Procedure Name Date Entry Date Standard Description CPT-55665 Cystoscopy 14:28:44 CDT CPT-66199 Bladder Scan 14:28:44 CDT CPT-85781 Indwelling Cath Change 17:06:27 CDT CPT-17568 Cystoscopy 17:06:27 CDT
--- OUTSIDE RECORDS SUMMARY | 2018-06-22 13:06 | XMS REPORT | Clinical Summary ---
Author Author Admin, ONESIMO Organization [facility] Address Unknown Phone Unavailable Allergies, Adverse Reactions, [...] four times daily , for cough IPRATROPIUM-ALBUTEROL 77399295238 Active Jaycee Garcia APRN Active TYLENOL 8 HOUR 650 MG ORAL CR-TABS Take 1 tab po up to 3 times daily as needed ACETAMINOPHEN 30065808099 Active Jaycee Garcia APRN Active FUROSEMIDE 40 MG TABS Take one by mouth daily FUROSEMIDE 85624201398 No Longer Active Jaycee Garcia APRN Active LANTUS 100 UNIT/ML SC SOLN 20 SUBQ AT HS INSULIN GLARGINE 57223098321 Active Jaycee Garcia APRN Active LAMICTAL 25 MG ORAL TABS 2 tabs po BID for convulsions LAMOTRIGINE 80386214105 Active Jaycee Garcia APRN Active INVEGA 6 MG ORAL [id number] 1 po daily for Schizophrenia PALIPERIDONE 39854133078 Active Jaycee Garcia APRN Active LASIX 20 MG TAB 1 tablet by mouth every morning for edema FUROSEMIDE 39053874213 Active Jaycee Jose VEGETABLE PICKER Active BUSPIRONE HCL 10 MG TABS 1 tab by mouth BID BUSPIRONE HCL 19455010529 Active Jaycee Garcia APRN Active NOVOLOG 100 UNIT/ML SC SOLN 10 UNITS BEFORE SUPPER INSULIN ASPART 64900285362 Active Jaycee Garcia VEGETABLE PICKER Active NOVOLOG 100 UNIT/ML SC SOLN 10 UNITS BID BEFORE BREAKFAST AND LUNCH INSULIN ASPART 17302559729 Active Jaycee Garcia APRN Active LAMICTAL 25 MG TABS 2 tabs by mouth twice a day LAMOTRIGINE 19970926274 Active Pelon Quach MD Active ADULT ASPIRIN EC LOW STRENGTH 81 MG TBEC Take one by mouth daily ASPIRIN 91895721694 No Longer Active Pelon Quach MD Active ASPIRIN 81 MG ORAL TABS 1 po qd ASPIRIN 53649987989 Active Pelon Quach MD Active ZOFRAN 4 MG TABS 1 po q6hr PRN Nausea ONDANSETRON HCL 89150201255 No Longer Active Pelon Quach MD Active TYLENOL 325 MG TAB 1-2 pills by mouth every 6 hours if needed for pain/fever ACETAMINOPHEN 56918427512 No Longer Active Pelon Quach MD Active INVEGA 6 MG ORAL [id number] 1 TAB ONCE DAILY PALIPERIDONE 16828255166 No Longer Active Carly Suggs Active TEGRETOL 200 MG TABS by mouth twice a day CARBAMAZEPINE 15115264583 Active Taty Alvarado MD PhD Active FLOMAX 0.4 MG CAPS 1 Daily TAMSULOSIN HCL 06998115066 Active Marianelachandrika Juarez Active DILANTIN 100 MG CAPS Take one by mouth daily PHENYTOIN SODIUM EXTENDED 82993781742 No Longer Active Marianela Juarez Active DEPAKOTE SPRINKLES 125 MG CPSP 4 capsules by mouth twice daily DIVALPROEX SODIUM 65556266399 No Longer Active Marianelachandrika Juarez Active LAMICTAL 200 MG ORAL TABS 1 BY MOUTH TWICE A DAY LAMOTRIGINE 49538062433 Active Marianela Juarez Active LAMICTAL 100 MG TABS by mouth twice a day LAMOTRIGINE 25254735201 No Longer Active Marianela Juarez Active LAMICTAL 150 MG TABS by mouth twice a day LAMOTRIGINE 58450306448 No Longer Active Marianela Juarez Active DILANTIN 100 MG CAPS Take three by mouth daily PHENYTOIN SODIUM EXTENDED 22014011077 No Longer Active Marianela Juarez Active SENOKOT 8.6 MG TABS take at bedtime SENNOSIDES 04444455318 Active Glenn Thornton MD Active LIPITOR 20 MG TABS take at bedtime ATORVASTATIN CALCIUM 79885660507 Active Glenn Thornton MD Active LISINOPRIL 2.5 MG TABS Take one by mouth daily LISINOPRIL 06800051618 Active Glenn Thornton MD Active TRENTAL 400 MG CR-TABS by mouth twice a day PENTOXIFYLLINE 67889739861 Active Glenn Thornton MD Active KLOR-CON 10 10 MEQ CR-TABS Take one by mouth daily POTASSIUM CHLORIDE 18884934856 Active Glenn Thornton MD Active DILANTIN 100 MG CAPS Take three by mouth daily DILANTIN 100 MG CAPS 837873 PHENYTOIN SODIUM EXTENDED Inactive LAMICTAL 150 MG TABS by mouth twice a day LAMICTAL 150 MG TABS 19831025 LAMOTRIGINE Inactive LAMICTAL 100 MG TABS by mouth twice a day LAMICTAL 100 MG TABS 19831024 LAMOTRIGINE Inactive DEPAKOTE SPRINKLES 125 MG CPSP 4 capsules by mouth twice daily DEPAKOTE SPRINKLES 125 MG CPSP 6950236 DIVALPROEX SODIUM Inactive DILANTIN 100 MG CAPS Take one by mouth daily DILANTIN 100 MG CAPS 762651 PHENYTOIN SODIUM EXTENDED Inactive INVEGA 6 MG ORAL [id number] 1 TAB ONCE DAILY INVEGA 6 MG ORAL [id number] PALIPERIDONE Inactive TYLENOL 325 MG TAB 1-2 pills by mouth every 6 hours if needed for pain/fever TYLENOL 325 MG TAB 784620 ACETAMINOPHEN Inactive ZOFRAN 4 MG TABS 1 po q6hr PRN Nausea ZOFRAN 4 MG TABS 361754 ONDANSETRON HCL Inactive ADULT ASPIRIN EC LOW STRENGTH 81 MG TBEC Take one by mouth daily ADULT ASPIRIN EC LOW STRENGTH 81 MG TBEC 198088 ASPIRIN Inactive FUROSEMIDE 40 MG TABS Take one by mouth daily FUROSEMIDE 40 MG TABS 882094 FUROSEMIDE Inactive Advance Directives Directive Description Start Date DURABLE POWER OF HOP SORTER FOR HEALTHCARE PERMISSION TO SHARE ADVANCED DIRECTIVE [...] mg/dL Encounters Code Encounter Date Provider Facility CPT-73421 Level 3 Est. Patient 09:40:44 ROTARY DUMP OPERATOR Jaycee Garcia [facility] CPT-81993 Level 3 Est. Patient 09:36:32 ROTARY DUMP OPERATOR Jaycee Garcia [facility] CPT-63054 Level 4 Est. Patient 16:57:02 ROTARY DUMP OPERATOR Pelon Quach MD [facility] CPT-51594 Level 4 Est. Patient 22:19:34 CDT Pelon Quach MD [facility] CPT-92114 Level 3 Est. Patient 00:34:41 CDT Pelon Quach MD [facility] CPT-23703 Level 4 Est. Patient 11:19:14 CDT Pelon Quach MD [facility] CPT-95186 Level 4 Est. Patient 16:43:30 ROTARY DUMP OPERATOR Pelon Quach MD [facility] CPT-71808 Level 4 Est. Patient 12:42:18 CDT Pelon Quach MD [facility] CPT-71229 Level 4 Est. Patient 11:52:20 CDT Pelon Quach MD [facility] CPT-66123 Level 4 Est. Patient 13:59:46 CDT Pelon Quach MD [facility] CPT-27644 Level 4 Est. Patient 15:10:48 CDT Pelon Quach MD [facility] CPT-56600 Level 4 Est. Patient 17:13:06 CDT Pelon Quach MD [facility] CPT-26293 Level 4 Est. Patient 18:47:47 CDT Pelon Quach MD [facility] CPT-31940 Level 3 Est. Patient 21:01:27 CDT Pelon Quach MD [facility] CPT-34075 Level 3 Est. Patient 14:07:03 CDT Taty Alvarado MD PhD [facility] CPT-23635 Level 3 New Patient 21:39:52 ROTARY DUMP OPERATOR Pelon Quach MD [facility] CPT-97330 Level 3 Est. Patient 14:28:44 CDT Glenn Thornton MD [facility] CPT-41719 Level 3 Est. Patient 16:35:00 CDT Glenn Thornton MD [facility] CPT-19681 Level 4 New Patient 17:06:27 CDT Glenn Thornton MD [facility] Procedures Code Procedure Name Date Entry Date Standard Description CPT-60017 Cystoscopy 14:28:44 CDT CPT-67625 Bladder Scan 14:28:44 CDT CPT-82252 Indwelling Cath Change 17:06:27 CDT CPT-56308 Cystoscopy 17:06:27 CDT
--- OUTSIDE RECORDS SUMMARY | 2018-06-22 13:07 | XMS REPORT | Clinical Summary ---
Author Author Admin, ONESIMO Organization [facility] Address Unknown Phone Unavailable Allergies, Adverse Reactions, [...] 6 hours PRN allergic reaction DIPHENHYDRAMINE HCL 24730729988 Active NICOLETTE Hitchcock Active INVEGA 6 MG ORAL IN14H-HBH 1 po daily for Schizophrenia PALIPERIDONE 37309771301 No Longer Active Pelon Quach MD Active TYLENOL 8 HOUR 650 MG ORAL CR-TABS Take 1 tab po up to 3 times daily as needed ACETAMINOPHEN 82605173483 No Longer Active Pelon Quach MD Active IPRATROPIUM-ALBUTEROL 0.5-2.5 (3) MG/3ML INH SOLN 1 neb treatment QID for cough Dx: J06.9 IPRATROPIUM-ALBUTEROL 85088814828 No Longer Active Pelon Quach MD Active BACTRIM DS 800-160 MG TAB 1 tab by mouth twice daily TRIMETHOPRIM-SULFAMETHOXAZOLE 93912133657 No Longer Active Pelon Quach MD Active BACTROBAN 2 % OINTMENT Apply to affected area BID MUPIROCIN 99007685228 Active Jaycee Garcia APRN Active BACTRIM DS 800-160 MG TABS 1 twice a day SULFAMETHOXAZOLE-TRIMETHOPRIM 24871558918 No Longer Active Pelon Quach MD Active IPRATROPIUM-ALBUTEROL 0.5-2.5 (3) MG/3ML SOLN 1 neb treatment four times daily , for cough IPRATROPIUM-ALBUTEROL 39118379677 No Longer Active Jaycee Garcia APRN Active FUROSEMIDE 40 MG TABS Take one by mouth daily FUROSEMIDE 75910440328 No Longer Active Jaycee Garcia APRN Active LANTUS 100 UNIT/ML SC SOLN 20 SUBQ AT HS INSULIN GLARGINE 29728879898 Active Jaycee Garcia APRN Active LAMICTAL 25 MG ORAL TABS 2 tabs po BID for convulsions LAMOTRIGINE 19744592268 Active Jaycee Garcia APRN Active LASIX 20 MG TAB 1 tablet by mouth every morning for edema FUROSEMIDE 58393024156 Active Jaycee Garcia APRN Active BUSPIRONE HCL 10 MG TABS 1 tab by mouth BID BUSPIRONE HCL 49247628294 Active Jaycee Garcia SHIP PROPELLER FINISHER Active NOVOLOG 100 UNIT/ML SC SOLN 10 UNITS BEFORE SUPPER INSULIN ASPART 85245318668 Active Jaycee Garcia APRN Active NOVOLOG 100 UNIT/ML SC SOLN 10 UNITS BID BEFORE BREAKFAST AND LUNCH INSULIN ASPART 49781463663 Active Jaycee Garcia APRN Active LAMICTAL 25 MG TABS 2 tabs by mouth twice a day LAMOTRIGINE 28905195689 Active Pelon Quach MD Active ADULT ASPIRIN EC LOW STRENGTH 81 MG TBEC Take one by mouth daily ASPIRIN 28103165433 No Longer Active Pelon Quach MD Active ASPIRIN 81 MG ORAL TABS 1 po qd ASPIRIN 13317520152 Active Pelon Quach MD Active ZOFRAN 4 MG TABS 1 po q6hr PRN Nausea ONDANSETRON HCL 86147997271 No Longer Active Pelon Quach MD Active TYLENOL 325 MG TAB 1-2 pills by mouth every 6 hours if needed for pain/fever ACETAMINOPHEN 80541591976 No Longer Active Pelon Quach MD Active INVEGA 6 MG ORAL [id number] 1 TAB ONCE DAILY PALIPERIDONE 18302153693 No Longer Active Carly Suggs Active TEGRETOL 200 MG TABS by mouth twice a day CARBAMAZEPINE 67904535879 Active Taty Alvarado MD PhD Active FLOMAX 0.4 MG CAPS 1 Daily TAMSULOSIN HCL 31790529784 Active Marianela Juarez Active DILANTIN 100 MG CAPS Take one by mouth daily PHENYTOIN SODIUM EXTENDED 29174527000 No Longer Active Marianela Juarez Active DEPAKOTE SPRINKLES 125 MG CPSP 4 capsules by mouth twice daily DIVALPROEX SODIUM 96431757769 No Longer Active Marianela Juarez Active LAMICTAL 200 MG ORAL TABS 1 BY MOUTH TWICE A DAY LAMOTRIGINE 69492867913 Active Marianela Juarez Active LAMICTAL 100 MG TABS by mouth twice a day LAMOTRIGINE 38784745523 No Longer Active Marianela Juarez Active LAMICTAL 150 MG TABS by mouth twice a day LAMOTRIGINE 56043380517 No Longer Active Marianela Juarez Active DILANTIN 100 MG CAPS Take three by mouth daily PHENYTOIN SODIUM EXTENDED 22284219641 No Longer Active Marianela Shankarronny Active SENOKOT 8.6 MG TABS take at bedtime SENNOSIDES 76729313153 Active Glenn Thornton MD Active LIPITOR 20 MG TABS take at bedtime ATORVASTATIN CALCIUM 16403668320 Active Glenn Thornton MD Active LISINOPRIL 2.5 MG TABS Take one by mouth daily LISINOPRIL 25876162538 Active Glenn Thornton MD Active TRENTAL 400 MG CR-TABS by mouth twice a day PENTOXIFYLLINE 86222300723 Active Glenn Thornton MD Active KLOR-CON 10 10 MEQ CR-TABS Take one by mouth daily POTASSIUM CHLORIDE 93807532709 Active Glenn Thornton MD Active DILANTIN 100 MG CAPS Take three by mouth daily DILANTIN 100 MG CAPS 664197 PHENYTOIN SODIUM EXTENDED Inactive LAMICTAL 150 MG TABS by mouth twice a day LAMICTAL 150 MG TABS 390785 LAMOTRIGINE Inactive LAMICTAL 100 MG TABS by mouth twice a day LAMICTAL 100 MG TABS 19831024 LAMOTRIGINE Inactive DEPAKOTE SPRINKLES 125 MG CPSP 4 capsules by mouth twice daily DEPAKOTE SPRINKLES 125 MG CPSP 3471071 DIVALPROEX SODIUM Inactive DILANTIN 100 MG CAPS Take one by mouth daily DILANTIN 100 MG CAPS 413400 PHENYTOIN SODIUM EXTENDED Inactive INVEGA 6 MG ORAL [id number] 1 TAB ONCE DAILY INVEGA 6 MG ORAL [id number] PALIPERIDONE Inactive TYLENOL 325 MG TAB 1-2 pills by mouth every 6 hours if needed for pain/fever TYLENOL 325 MG TAB 878222 ACETAMINOPHEN Inactive ZOFRAN 4 MG TABS 1 po q6hr PRN Nausea ZOFRAN 4 MG TABS 174061 ONDANSETRON HCL Inactive ADULT ASPIRIN EC LOW STRENGTH 81 MG TBEC Take one by mouth daily ADULT ASPIRIN EC LOW STRENGTH 81 MG TBEC 198060 ASPIRIN Inactive FUROSEMIDE 40 MG TABS Take one by mouth daily FUROSEMIDE 40 MG TABS 968622 FUROSEMIDE Inactive BACTRIM DS 800-160 MG TABS 1 twice a day BACTRIM DS 800-160 MG TABS 086934 SULFAMETHOXAZOLE-TRIMETHOPRIM Inactive IPRATROPIUM-ALBUTEROL 0.5-2.5 (3) MG/3ML INH SOLN 1 neb treatment QID for cough Dx: J06.9 IPRATROPIUM-ALBUTEROL 0.5-2.5 (3) MG/ 3ML INH SOLN 6641662 IPRATROPIUM-ALBUTEROL Inactive TYLENOL 8 HOUR 650 MG ORAL CR-TABS Take 1 tab po up to 3 times daily as needed TYLENOL 8 HOUR 650 MG ORAL CR-TABS ACETAMINOPHEN Inactive INVEGA 6 MG ORAL [id number] 1 po daily for Schizophrenia INVEGA 6 MG ORAL [id number] PALIPERIDONE Inactive IPRATROPIUM-ALBUTEROL 0.5-2.5 (3) MG/3ML SOLN 1 neb treatment four times daily , for cough IPRATROPIUM-ALBUTEROL 0.5-2.5 (3) MG/3ML SOLN 6332297 IPRATROPIUM-ALBUTEROL Inactive BACTRIM DS 800-160 MG TAB 1 tab by mouth twice daily BACTRIM DS 800-160 MG TAB 19821119 TRIMETHOPRIM-SULFAMETHOXAZOLE Inactive Advance Directives Directive Description Start Date DURABLE POWER OF WORK STATION SUPPORT SPECIALIST FOR HEALTHCARE PERMISSION TO SHARE ADVANCED [...] Panel - Chemistry sodium, serum 127 mmol/L 531-789 9976/07/28 potassium, serum 5.3 mmol/L 3.5-5.2 chloride, serum 92 mmol/L 98-107 carbon dioxide, venous blood 32.4 mmol/L 21.0-32.0 blood glucose 182 mg/dL 65-110 calcium, serum 9.4 mg/dL 8.5-10.1 urea nitrogen, blood 14 mg/dL 7-18 creatinine, serum 0.94 mg/dL 0.60-1.30 Lab Report: CBC, Comp. Metabolic Panel - Chemistry sodium, serum 129 mmol/L 774-232 3763/07/12 carbon dioxide, venous blood 27.8 mmol/L 21.0-32.0 [...] mg/dL Encounters Code Encounter Date Provider Facility CPT-44916 Level 4 Est. Patient 08:43:11 CDT Pelon Quach MD [facility] CPT-44336 Level 4 Est. Patient 14:27:30 CDT Pelon Quach MD [facility] CPT-72575 Level 3 Est. Patient 10:32:17 CDT Jaycee Garcia [facility] CPT-46053 Level 3 Est. Patient 10:15:07 CDT Pelon Quach MD [facility] CPT-51303 Level 4 Est. Patient 09:30:54 CDT Pelon Quach MD [facility] CPT-88919 Level 4 Est. Patient 14:34:25 CDT Pelon Quach MD [facility] CPT-59206 Level 3 Est. Patient 11:51:35 QUALITY ANALYST/TECHNICAL WRITER Rick Henson DO [facility] CPT-78924 Level 3 Est. Patient 12:13:33 QUALITY ANALYST/TECHNICAL WRITER Erik Baptiste MD [facility] CPT-78055 Level 3 Est. Patient 09:40:44 QUALITY ANALYST/TECHNICAL WRITER Jaycee Garcia [facility] CPT-71110 Level 3 Est. Patient 09:36:32 QUALITY ANALYST/TECHNICAL WRITER Jaycee Garcia [facility] CPT-00914 Level 4 Est. Patient 16:57:02 QUALITY ANALYST/TECHNICAL WRITER Pelon Quach MD [facility]-11884 Level 4 Est. Patient 22:19:34 CDT Pelon Quach MD [facility]-63364 Level 3 Est. Patient 00:34:41 CDT Pelon Quach MD [facility]-60072 Level 4 Est. Patient 11:19:14 CDT Pelon Quach MD [facility]-86796 Level 4 Est. Patient 16:43:30 QUALITY ANALYST/TECHNICAL WRITER Pelon Quach MD [facility]-24301 Level 4 Est. Patient 12:42:18 CDT Pelon Quach MD [facility]-07916 Level 4 Est. Patient 11:52:20 CDT Pelon Quach MD [facility]-50195 Level 4 Est. Patient 13:59:46 CDT Pelon Quach MD [facility] CPT-49523 Level 4 Est. Patient 15:10:48 CDT Pelon Quach MD [facility]-00849 Level 4 Est. Patient 17:13:06 CDT Pelon Quach MD [facility]-54136 Level 4 Est. Patient 18:47:47 CDT Pelon Quach MD [facility]-92806 Level 3 Est. Patient 21:01:27 CDT Pelon Quach MD [facility]-16483 Level 3 Est. Patient 14:07:03 CDT Taty Alvarado MD PhD [facility] CPT-98527 Level 3 New Patient 21:39:52 QUALITY ANALYST/TECHNICAL WRITER Pelon Quach MD [facility]-96035 Level 3 Est. Patient 14:28:44 CDT Glenn Thornton MD [facility] CPT-36935 Level 3 Est. Patient 16:35:00 CDT Glenn Thornton MD [facility] CPT-27999 Level 4 New Patient 17:06:27 CDT Glenn Thornton MD [facility] Procedures Code Procedure Name Date Entry Date Standard Description CPT-G0438 Initial Annual Wellness Exam 09:30:54 CDT CPT-56009 Prevnar 13 Intramuscular Suspension 14:34:25 CDT 12/27 CPT-67921 Chest 2V Frontal and Lat - XRAY USE ONLY 11:56:13 QUALITY ANALYST/TECHNICAL WRITER CPT-11592 Cystoscopy 14:28:44 CDT CPT-00272 Bladder Scan 14:28:44 CDT CPT-51465 Indwelling Cath Change 17:06:27 CDT CPT-49906 Cystoscopy 17:06:27 CDT
--- OUTSIDE RECORDS SUMMARY | 2018-06-22 13:07 | XMS REPORT | Clinical Summary ---
Author Author Admin, ONESIMO Organization [facility] [place] Address Unknown Phone Unavailable Allergies, Adverse Reactions, [...] MG TABS 1 twice a day SULFAMETHOXAZOLE-TRIMETHOPRIM 29146432211 No Longer Active Pelon Quach MD Active IPRATROPIUM-ALBUTEROL 0.5-2.5 (3) MG/3ML INH SOLN 1 neb treatment QID for cough Dx: J06.9 IPRATROPIUM-ALBUTEROL 89356602678 Active Jaycee Garcia APRN Active IPRATROPIUM-ALBUTEROL 0.5-2.5 (3) MG/3ML SOLN 1 neb treatment four times daily , for cough IPRATROPIUM-ALBUTEROL 57036146302 No Longer Active Jaycee Jose VICTORINO Active TYLENOL 8 HOUR 650 MG ORAL CR-TABS Take 1 tab po up to 3 times daily as needed ACETAMINOPHEN 94464512430 Active Jaycee Garcia APRN Active FUROSEMIDE 40 MG TABS Take one by mouth daily FUROSEMIDE 50411487943 No Longer Active Jaycee Jose VICTORINO Active LANTUS 100 UNIT/ML SC SOLN 20 SUBQ AT HS INSULIN GLARGINE 04842815710 Active Jaycee Garcia APRN Active LAMICTAL 25 MG ORAL TABS 2 tabs po BID for convulsions LAMOTRIGINE 60849723994 Active Jaycee Garcia APRN Active INVEGA 6 MG ORAL [id number] 1 po daily for Schizophrenia PALIPERIDONE 24170386670 Active Jaycee Garcia APRN Active LASIX 20 MG TAB 1 tablet by mouth every morning for edema FUROSEMIDE 47284120961 Active Jaycee Garcia APRN Active BUSPIRONE HCL 10 MG TABS 1 tab by mouth BID BUSPIRONE HCL 01957838501 Active Jaycee Jose VICTORINO Active NOVOLOG 100 UNIT/ML SC SOLN 10 UNITS BEFORE SUPPER INSULIN ASPART 41874776074 Active Jaycee Garcia APRN Active NOVOLOG 100 UNIT/ML SC SOLN 10 UNITS BID BEFORE BREAKFAST AND LUNCH INSULIN ASPART 35782422664 Active Jaycee Garcia APRN Active LAMICTAL 25 MG TABS 2 tabs by mouth twice a day LAMOTRIGINE 51187119635 Active Pelon Quach MD Active ADULT ASPIRIN EC LOW STRENGTH 81 MG TBEC Take one by mouth daily ASPIRIN 21360085185 No Longer Active Pelon Quach MD Active ASPIRIN 81 MG ORAL TABS 1 po qd ASPIRIN 16852292507 Active Pelon Quach MD Active ZOFRAN 4 MG TABS 1 po q6hr PRN Nausea ONDANSETRON HCL 02467526291 No Longer Active Pelon Quach MD Active TYLENOL 325 MG TAB 1-2 pills by mouth every 6 hours if needed for pain/fever ACETAMINOPHEN 94078392969 No Longer Active Pelon Quach MD Active INVEGA 6 MG ORAL [id number] 1 TAB ONCE DAILY PALIPERIDONE 12412460428 No Longer Active Carly Suggs Active TEGRETOL 200 MG TABS by mouth twice a day CARBAMAZEPINE 42011957850 Active Taty Alvarado MD PhD Active FLOMAX 0.4 MG CAPS 1 Daily TAMSULOSIN HCL 14339106011 Active Marianelachandrika Juarez Active DILANTIN 100 MG CAPS Take one by mouth daily PHENYTOIN SODIUM EXTENDED 65545083441 No Longer Active Marianelachandrika Shankarronny Active DEPAKOTE SPRINKLES 125 MG CPSP 4 capsules by mouth twice daily DIVALPROEX SODIUM 33348657859 No Longer Active Marianelachandrika Shankarida Active LAMICTAL 200 MG ORAL TABS 1 BY MOUTH TWICE A DAY LAMOTRIGINE 64479345752 Active Marianela Raida Active LAMICTAL 100 MG TABS by mouth twice a day LAMOTRIGINE 95745030738 No Longer Active Marianela Raida Active LAMICTAL 150 MG TABS by mouth twice a day LAMOTRIGINE 52528718906 No Longer Active Marianelachandrika Juarez Active DILANTIN 100 MG CAPS Take three by mouth daily PHENYTOIN SODIUM EXTENDED 36123215468 No Longer Active Marianelachandrika Shankarida Active SENOKOT 8.6 MG TABS take at bedtime SENNOSIDES 48492377550 Active Glenn Thornton MD Active LIPITOR 20 MG TABS take at bedtime ATORVASTATIN CALCIUM 39557707248 Active Glenn Thornton MD Active LISINOPRIL 2.5 MG TABS Take one by mouth daily LISINOPRIL 96816600757 Active Glenn Thornton MD Active TRENTAL 400 MG CR-TABS by mouth twice a day PENTOXIFYLLINE 54383088969 Active Glenn Thornton MD Active KLOR-CON 10 10 MEQ CR-TABS Take one by mouth daily POTASSIUM CHLORIDE 13498220785 Active J Ian Thornton MD Active DILANTIN 100 MG CAPS Take three by mouth daily DILANTIN 100 MG CAPS 627487 PHENYTOIN SODIUM EXTENDED Inactive LAMICTAL 150 MG TABS by mouth twice a day LAMICTAL 150 MG TABS 19831025 LAMOTRIGINE Inactive LAMICTAL 100 MG TABS by mouth twice a day LAMICTAL 100 MG TABS 19831024 LAMOTRIGINE Inactive DEPAKOTE SPRINKLES 125 MG CPSP 4 capsules by mouth twice daily DEPAKOTE SPRINKLES 125 MG CPSP 0700178 DIVALPROEX SODIUM Inactive DILANTIN 100 MG CAPS Take one by mouth daily DILANTIN 100 MG CAPS 850256 PHENYTOIN SODIUM EXTENDED Inactive INVEGA 6 MG ORAL [id number] 1 TAB ONCE DAILY INVEGA 6 MG ORAL [id number] PALIPERIDONE Inactive TYLENOL 325 MG TAB 1-2 pills by mouth every 6 hours if needed for pain/fever TYLENOL 325 MG TAB 523970 ACETAMINOPHEN Inactive ZOFRAN 4 MG TABS 1 po q6hr PRN Nausea ZOFRAN 4 MG TABS 368836 ONDANSETRON HCL Inactive ADULT ASPIRIN EC LOW STRENGTH 81 MG TBEC Take one by mouth daily ADULT ASPIRIN EC LOW STRENGTH 81 MG TBEC 672959 ASPIRIN Inactive FUROSEMIDE 40 MG TABS Take one by mouth daily FUROSEMIDE 40 MG TABS 355342 FUROSEMIDE Inactive BACTRIM DS 800-160 MG TABS 1 twice a day BACTRIM DS 800-160 MG TABS 028090 SULFAMETHOXAZOLE-TRIMETHOPRIM Inactive IPRATROPIUM-ALBUTEROL 0.5-2.5 (3) MG/3ML SOLN 1 neb treatment four times daily , for cough IPRATROPIUM-ALBUTEROL 0.5-2.5 (3) MG/3ML SOLN 0196035 IPRATROPIUM-ALBUTEROL Inactive Advance Directives Directive Description Start Date DURABLE POWER OF MUSCULOSKELETAL PHYSICIAN FOR HEALTHCARE PERMISSION TO SHARE ADVANCED [...] mg/dL Encounters Code Encounter Date Provider Facility CPT-33869 Level 4 Est. Patient 09:30:54 CDT Pelon Quach MD [facility] CPT-73806 Level 4 Est. Patient 14:34:25 CDT Pelon Quach MD [facility] CPT-91133 Level 3 Est. Patient 11:51:35 RELAY MAN Rick Henson DO [facility] CPT-86814 Level 3 Est. Patient 12:13:33 RELAY MAN Erik Baptiste MD [facility] CPT-50311 Level 3 Est. Patient 09:40:44 RELAY MAN Jaycee Garcia [facility] [place] CPT-01749 Level 3 Est. Patient 09:36:32 RELAY MAN Jaycee Garcia [facility] CPT-05454 Level 4 Est. Patient 16:57:02 RELAY MAN Pelon Quach MD [facility]-21610 Level 4 Est. Patient 22:19:34 CDT Pelon Quach MD [facility]-55784 Level 3 Est. Patient 00:34:41 CDT Pelon Quach MD [facility]-42221 Level 4 Est. Patient 11:19:14 CDT Pelon Quach MD [facility]-38423 Level 4 Est. Patient 16:43:30 RELAY MAN Pelon Quach MD [facility]-61834 Level 4 Est. Patient 12:42:18 CDT Pelon Quach MD [facility]-37657 Level 4 Est. Patient 11:52:20 CDT Pelon Quach MD [facility]-91226 Level 4 Est. Patient 13:59:46 CDT Pelon Quach MD [facility]-95831 Level 4 Est. Patient 15:10:48 CDT Pelon Quach MD [facility]-90940 Level 4 Est. Patient 17:13:06 CDT Pelon Quach MD [facility]-88901 Level 4 Est. Patient 18:47:47 CDT Pelon Quach MD [facility]-24339 Level 3 Est. Patient 21:01:27 CDT Pelon Quach MD [facility] CPT-75491 Level 3 Est. Patient 14:07:03 CDT Taty Alvarado MD PhD [facility] CPT-60923 Level 3 New Patient 21:39:52 RELAY MAN Pelon Quach MD [facility]-87538 Level 3 Est. Patient 14:28:44 CDT Glenn Thornton MD [facility]-55877 Level 3 Est. Patient 16:35:00 CDT Glenn Thornton MD [facility] [place] CPT-77432 Level 4 New Patient 17:06:27 CDT Glenn Thornton MD [facility] [place] Procedures Code Procedure Name Date Entry Date Standard Description CPT-G0438 Initial Annual Wellness Exam 09:30:54 CDT CPT-96246 Prevnar 13 Intramuscular Suspension 14:34:25 CDT 12/27 CPT-91270 Chest 2V Frontal and Lat - XRAY USE ONLY 11:56:13 RELAY MAN CPT-95785 Cystoscopy 14:28:44 CDT CPT-11877 Bladder Scan 14:28:44 CDT CPT-06850 Indwelling Cath Change 17:06:27 CDT CPT-89100 Cystoscopy 17:06:27 CDT
--- OUTSIDE RECORDS SUMMARY | 2018-06-22 13:08 | XMS REPORT | Clinical Summary ---
Author Author Admin, ONESIMO Organization [facility] [place] Address Unknown Phone Unavailable Allergies, Adverse Reactions, [...] TABS 1 twice a day SULFAMETHOXAZOLE- TRIMETHOPRIM 96304334283 Active Erik Baptiste MD Active IPRATROPIUM-ALBUTEROL 0.5-2.5 (3) MG/3ML INH SOLN 1 neb treatment QID for cough Dx: J06.9 IPRATROPIUM-ALBUTEROL 48615459090 Active Jaycee Garcia APRN Active IPRATROPIUM-ALBUTEROL 0.5-2.5 (3) MG/3ML SOLN 1 neb treatment four times daily , for cough IPRATROPIUM-ALBUTEROL 47036498290 No Longer Active Jaycee Garcia APRN Active TYLENOL 8 HOUR 650 MG ORAL CR-TABS Take 1 tab po up to 3 times daily as needed ACETAMINOPHEN 71158467204 Active Jaycee Jose STRADDLE BUG DRIVER Active FUROSEMIDE 40 MG TABS Take one by mouth daily FUROSEMIDE 77267359839 No Longer Active Jaycee Garcia VICTORINO Active LANTUS 100 UNIT/ML SC SOLN 20 SUBQ AT HS INSULIN GLARGINE 19576621884 Active Jaycee Jose STRADDLE BUG DRIVER Active LAMICTAL 25 MG ORAL TABS 2 tabs po BID for convulsions LAMOTRIGINE 71970514748 Active Jaycee Garcia VICTORINO Active INVEGA 6 MG ORAL [id number] 1 po daily for Schizophrenia PALIPERIDONE 10610428151 Active Jaycee Garcia VICTORINO Active LASIX 20 MG TAB 1 tablet by mouth every morning for edema FUROSEMIDE 58915476453 Active Jayceehugo Garcia APRN Active BUSPIRONE HCL 10 MG TABS 1 tab by mouth BID BUSPIRONE HCL 36402827097 Active Jacyee Garcia VICTORINO Active NOVOLOG 100 UNIT/ML SC SOLN 10 UNITS BEFORE SUPPER INSULIN ASPART 57191371789 Active Jaycee Garcia VICTORINO Active NOVOLOG 100 UNIT/ML SC SOLN 10 UNITS BID BEFORE BREAKFAST AND LUNCH INSULIN ASPART 85342659317 Active Jaycee Garcia VICTORINO Active LAMICTAL 25 MG TABS 2 tabs by mouth twice a day LAMOTRIGINE 15726439583 Active Pelon Quach MD Active ADULT ASPIRIN EC LOW STRENGTH 81 MG TBEC Take one by mouth daily ASPIRIN 25673685983 No Longer Active Pelon Quach MD Active ASPIRIN 81 MG ORAL TABS 1 po qd ASPIRIN 18070370568 Active Pelon Quach MD Active ZOFRAN 4 MG TABS 1 po q6hr PRN Nausea ONDANSETRON HCL 69271571642 No Longer Active Pelon Quach MD Active TYLENOL 325 MG TAB 1-2 pills by mouth every 6 hours if needed for pain/fever ACETAMINOPHEN 97104812553 No Longer Active Pelon Quach MD Active INVEGA 6 MG ORAL [id number] 1 TAB ONCE DAILY PALIPERIDONE 27178541746 No Longer Active Carly Suggs Active TEGRETOL 200 MG TABS by mouth twice a day CARBAMAZEPINE 85797981018 Active Taty Alvarado MD PhD Active FLOMAX 0.4 MG CAPS 1 Daily TAMSULOSIN HCL 74434261287 Active Marianelachandrika Juarez Active DILANTIN 100 MG CAPS Take one by mouth daily PHENYTOIN SODIUM EXTENDED 25827271100 No Longer Active Marianelachandrika Juarez Active DEPAKOTE SPRINKLES 125 MG CPSP 4 capsules by mouth twice daily DIVALPROEX SODIUM 06420008745 No Longer Active Marianelachandrika Juarez Active LAMICTAL 200 MG ORAL TABS 1 BY MOUTH TWICE A DAY LAMOTRIGINE 21335482972 Active Marianelachandrika Juarez Active LAMICTAL 100 MG TABS by mouth twice a day LAMOTRIGINE 39735894513 No Longer Active Marianelachandrika Juarez Active LAMICTAL 150 MG TABS by mouth twice a day LAMOTRIGINE 83781346303 No Longer Active Marianelachandrika Juarez Active DILANTIN 100 MG CAPS Take three by mouth daily PHENYTOIN SODIUM EXTENDED 79870808071 No Longer Active Marianela Juarez Active SENOKOT 8.6 MG TABS take at bedtime SENNOSIDES 81954071759 Active Glenn Thornton MD Active LIPITOR 20 MG TABS take at bedtime ATORVASTATIN CALCIUM 52274275160 Active Glenn Thornton MD Active LISINOPRIL 2.5 MG TABS Take one by mouth daily LISINOPRIL 66509165147 Active Glenn Thornton MD Active TRENTAL 400 MG CR-TABS by mouth twice a day PENTOXIFYLLINE 26877439463 Active Glenn Thornton MD Active KLOR-CON 10 10 MEQ CR-TABS Take one by mouth daily POTASSIUM CHLORIDE 81689777708 Active Glenn Thornton MD Active DILANTIN 100 MG CAPS Take three by mouth daily DILANTIN 100 MG CAPS 346461 PHENYTOIN SODIUM EXTENDED Inactive LAMICTAL 150 MG TABS by mouth twice a day LAMICTAL 150 MG TABS 19831025 LAMOTRIGINE Inactive LAMICTAL 100 MG TABS by mouth twice a day LAMICTAL 100 MG TABS 19831024 LAMOTRIGINE Inactive DEPAKOTE SPRINKLES 125 MG CPSP 4 capsules by mouth twice daily DEPAKOTE SPRINKLES 125 MG CPSP 7101037 DIVALPROEX SODIUM Inactive DILANTIN 100 MG CAPS Take one by mouth daily DILANTIN 100 MG CAPS 446151 PHENYTOIN SODIUM EXTENDED Inactive INVEGA 6 MG ORAL [id number] 1 TAB ONCE DAILY INVEGA 6 MG ORAL [id number] PALIPERIDONE Inactive TYLENOL 325 MG TAB 1-2 pills by mouth every 6 hours if needed for pain/fever TYLENOL 325 MG TAB 058724 ACETAMINOPHEN Inactive ZOFRAN 4 MG TABS 1 po q6hr PRN Nausea ZOFRAN 4 MG TABS 827317 ONDANSETRON HCL Inactive ADULT ASPIRIN EC LOW STRENGTH 81 MG TBEC Take one by mouth daily ADULT ASPIRIN EC LOW STRENGTH 81 MG TBEC 092981 ASPIRIN Inactive FUROSEMIDE 40 MG TABS Take one by mouth daily FUROSEMIDE 40 MG TABS 401853 FUROSEMIDE Inactive IPRATROPIUM-ALBUTEROL 0.5-2.5 (3) MG/3ML SOLN 1 neb treatment four times daily , for cough IPRATROPIUM-ALBUTEROL 0.5-2.5 (3) MG/3ML SOLN 4549970 IPRATROPIUM-ALBUTEROL Inactive Advance Directives Directive Description Start Date DURABLE POWER OF SLAB CONDITIONER SUPERVISOR FOR HEALTHCARE PERMISSION TO SHARE ADVANCED [...] mg/dL Encounters Code Encounter Date Provider Facility CPT-36704 Level 3 Est. Patient 11:51:35 DIRECTOR OF BROADCAST Rick Henson DO [facility] CPT-92771 Level 3 Est. Patient 12:13:33 DIRECTOR OF BROADCAST Erik Baptiste MD [facility] CPT-89987 Level 3 Est. Patient 09:40:44 DIRECTOR OF BROADCAST Jaycee Garcia [facility] CPT-98240 Level 3 Est. Patient 09:36:32 DIRECTOR OF BROADCAST Jaycee Garcia [facility] CPT-08944 Level 4 Est. Patient 16:57:02 DIRECTOR OF BROADCAST Pelon Quach MD [facility] CPT-70186 Level 4 Est. Patient 22:19:34 CDT Pelon Quach MD [facility] CPT-36150 Level 3 Est. Patient 00:34:41 CDT Pelon Quach MD [facility] CPT-01316 Level 4 Est. Patient 11:19:14 CDT Pelon Quach MD [facility] CPT-00358 Level 4 Est. Patient 16:43:30 DIRECTOR OF BROADCAST Pelon Quach MD [facility] CPT-96629 Level 4 Est. Patient 12:42:18 CDT Pelon Quach MD [facility] CPT-29201 Level 4 Est. Patient 11:52:20 CDT Pelon Quach MD [facility] CPT-77686 Level 4 Est. Patient 13:59:46 CDT Pelon Quach MD [facility] CPT-38673 Level 4 Est. Patient 15:10:48 CDT Pelon Quach MD [facility] CPT-91883 Level 4 Est. Patient 17:13:06 CDT Pelon Quach MD [facility] CPT-17504 Level 4 Est. Patient 18:47:47 CDT Pelon Quach MD [facility] CPT-20036 Level 3 Est. Patient 21:01:27 CDT Pelon Quach MD [facility] CPT-87567 Level 3 Est. Patient 14:07:03 CDT Taty Alvarado MD PhD [facility] CPT-81115 Level 3 New Patient 21:39:52 DIRECTOR OF BROADCAST Pelon Quach MD [facility] CPT-31256 Level 3 Est. Patient 14:28:44 CDT Glenn Thornton MD [facility] CPT-88149 Level 3 Est. Patient 16:35:00 CDT Glenn Thornton MD [facility] CPT-96808 Level 4 New Patient 17:06:27 CDT Glenn Thornton MD [facility] Procedures Code Procedure Name Date Entry Date Standard Description CPT-81988 Chest 2V Frontal and Lat - XRAY USE ONLY 11:56:13 DIRECTOR OF BROADCAST CPT-71610 Cystoscopy 14:28:44 CDT CPT-78294 Bladder Scan 14:28:44 CDT CPT-83218 Indwelling Cath Change 17:06:27 CDT CPT-36870 Cystoscopy 17:06:27 CDT
--- OUTSIDE RECORDS SUMMARY | 2018-06-22 13:09 | XMS REPORT | Clinical Summary ---
Author Author Admin, ONESIMO Organization [facility] [email or web address] [place] Address Unknown Phone Unavailable Allergies, Adverse Reactions, [...] 1 tab by mouth twice daily TRIMETHOPRIM-SULFAMETHOXAZOLE 67357765536 No Longer Active Pelon Quach MD Active BACTROBAN 2 % OINTMENT Apply to affected area BID MUPIROCIN 17909515864 Active Jaycee Garcia APRN Active BACTRIM DS 800-160 MG TABS 1 twice a day SULFAMETHOXAZOLE-TRIMETHOPRIM 03667839713 No Longer Active Pelon Quach MD Active IPRATROPIUM-ALBUTEROL 0.5-2.5 (3) MG/3ML INH SOLN 1 neb treatment QID for cough Dx: J06.9 IPRATROPIUM-ALBUTEROL 25157903838 Active Jaycee Garcia APRN Active IPRATROPIUM-ALBUTEROL 0.5-2.5 (3) MG/3ML SOLN 1 neb treatment four times daily , for cough IPRATROPIUM-ALBUTEROL 05453373489 No Longer Active Jaycee Garcia APRN Active TYLENOL 8 HOUR 650 MG ORAL CR-TABS Take 1 tab po up to 3 times daily as needed ACETAMINOPHEN 33083826014 Active Jaycee Garcia APRN Active FUROSEMIDE 40 MG TABS Take one by mouth daily FUROSEMIDE 10465718613 No Longer Active Jaycee Garcia APRN Active LANTUS 100 UNIT/ML SC SOLN 20 SUBQ AT HS INSULIN GLARGINE 85884935776 Active Jaycee Garcia APRN Active LAMICTAL 25 MG ORAL TABS 2 tabs po BID for convulsions LAMOTRIGINE 83620006729 Active Jaycee Garcia APRN Active INVEGA 6 MG ORAL [id number] 1 po daily for Schizophrenia PALIPERIDONE 18094342461 Active Jaycee Garcia APRN Active LASIX 20 MG TAB 1 tablet by mouth every morning for edema FUROSEMIDE 19509537590 Active Jaycee Garcia APRN Active BUSPIRONE HCL 10 MG TABS 1 tab by mouth BID BUSPIRONE HCL 86506598510 Active Jaycee Garcia APRN Active NOVOLOG 100 UNIT/ML SC SOLN 10 UNITS BEFORE SUPPER INSULIN ASPART 48519181703 Active Jaycee Garcia APRN Active NOVOLOG 100 UNIT/ML SC SOLN 10 UNITS BID BEFORE BREAKFAST AND LUNCH INSULIN ASPART 16840147122 Active Jaycee Garcia APRN Active LAMICTAL 25 MG TABS 2 tabs by mouth twice a day LAMOTRIGINE 70473701050 Active Pelon Quach MD Active ADULT ASPIRIN EC LOW STRENGTH 81 MG TBEC Take one by mouth daily ASPIRIN 74067015347 No Longer Active Pelon Quach MD Active ASPIRIN 81 MG ORAL TABS 1 po qd ASPIRIN 00608228459 Active Pelon Quach MD Active ZOFRAN 4 MG TABS 1 po q6hr PRN Nausea ONDANSETRON HCL 23631477819 No Longer Active Pelon Quach MD Active TYLENOL 325 MG TAB 1-2 pills by mouth every 6 hours if needed for pain/fever ACETAMINOPHEN 13595900027 No Longer Active Pelon Quach MD Active INVEGA 6 MG ORAL [id number] 1 TAB ONCE DAILY PALIPERIDONE 58669866105 No Longer Active Carly Suggs Active TEGRETOL 200 MG TABS by mouth twice a day CARBAMAZEPINE 60881262530 Active Taty Alvarado MD PhD Active FLOMAX 0.4 MG CAPS 1 Daily TAMSULOSIN HCL 22598450135 Active Marianela ida Active DILANTIN 100 MG CAPS Take one by mouth daily PHENYTOIN SODIUM EXTENDED 76789774467 No Longer Active Marianela Larry Active DEPAKOTE SPRINKLES 125 MG CPSP 4 capsules by mouth twice daily DIVALPROEX SODIUM 87285191202 No Longer Active Marianela Raida Active LAMICTAL 200 MG ORAL TABS 1 BY MOUTH TWICE A DAY LAMOTRIGINE 87834186020 Active Marianela Raida Active LAMICTAL 100 MG TABS by mouth twice a day LAMOTRIGINE 36284147306 No Longer Active Marianela Raida Active LAMICTAL 150 MG TABS by mouth twice a day LAMOTRIGINE 21169287734 No Longer Active Marianela Raida Active DILANTIN 100 MG CAPS Take three by mouth daily PHENYTOIN SODIUM EXTENDED 45419744749 No Longer Active Marianela Raida Active SENOKOT 8.6 MG TABS take at bedtime SENNOSIDES 82755680524 Active Glenn Thornton MD Active LIPITOR 20 MG TABS take at bedtime ATORVASTATIN CALCIUM 71715756236 Active Glenn Thornton MD Active LISINOPRIL 2.5 MG TABS Take one by mouth daily LISINOPRIL 31429245041 Active Glenn Thornton MD Active TRENTAL 400 MG CR-TABS by mouth twice a day PENTOXIFYLLINE 76687855308 Active Glenn Thornton MD Active KLOR-CON 10 10 MEQ CR-TABS Take one by mouth daily POTASSIUM CHLORIDE 69669513690 Active Glenn Thornton MD Active DILANTIN 100 MG CAPS Take three by mouth daily DILANTIN 100 MG CAPS 076080 PHENYTOIN SODIUM EXTENDED Inactive LAMICTAL 150 MG TABS by mouth twice a day LAMICTAL 150 MG TABS 19831025 LAMOTRIGINE Inactive LAMICTAL 100 MG TABS by mouth twice a day LAMICTAL 100 MG TABS 19831024 LAMOTRIGINE Inactive DEPAKOTE SPRINKLES 125 MG CPSP 4 capsules by mouth twice daily DEPAKOTE SPRINKLES 125 MG CPSP 0503831 DIVALPROEX SODIUM Inactive DILANTIN 100 MG CAPS Take one by mouth daily DILANTIN 100 MG CAPS 073088 PHENYTOIN SODIUM EXTENDED Inactive INVEGA 6 MG ORAL [id number] 1 TAB ONCE DAILY INVEGA 6 MG ORAL [id number] PALIPERIDONE Inactive TYLENOL 325 MG TAB 1-2 pills by mouth every 6 hours if needed for pain/fever TYLENOL 325 MG TAB 176247 ACETAMINOPHEN Inactive ZOFRAN 4 MG TABS 1 po q6hr PRN Nausea ZOFRAN 4 MG TABS 714094 ONDANSETRON HCL Inactive ADULT ASPIRIN EC LOW STRENGTH 81 MG TBEC Take one by mouth daily ADULT ASPIRIN EC LOW STRENGTH 81 MG TBEC 993692 ASPIRIN Inactive FUROSEMIDE 40 MG TABS Take one by mouth daily FUROSEMIDE 40 MG TABS 701655 FUROSEMIDE Inactive BACTRIM DS 800-160 MG TABS 1 twice a day BACTRIM DS 800-160 MG TABS 891758 SULFAMETHOXAZOLE-TRIMETHOPRIM Inactive IPRATROPIUM-ALBUTEROL 0.5-2.5 (3) MG/3ML SOLN 1 neb treatment four times daily , for cough IPRATROPIUM-ALBUTEROL 0.5-2.5 (3) MG/3ML SOLN 0201537 IPRATROPIUM-ALBUTEROL Inactive BACTRIM DS 800-160 MG TAB 1 tab by mouth twice daily BACTRIM DS 800-160 MG TAB 999536 TRIMETHOPRIM-SULFAMETHOXAZOLE Inactive Advance Directives Directive Description Start Date DURABLE POWER OF INFUSION NURSE FOR HEALTHCARE PERMISSION TO SHARE ADVANCED DIRECTIVE [...] mg/dL Encounters Code Encounter Date Provider Facility CPT-40852 Level 3 Est. Patient 10:32:17 CDT Jaycee Jose [facility] CPT-58849 Level 3 Est. Patient 10:15:07 CDT Pelon Quach MD [facility]-14050 Level 4 Est. Patient 09:30:54 CDT Pelon Quach MD [facility] CPT-22875 Level 4 Est. Patient 14:34:25 CDT Pelon Quach MD [facility]-03382 Level 3 Est. 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 Patient 12:13:33 REPLANTING MACHINE CREWMAN Erik Baptiste MD [facility]-35082 Level 3 Est. Patient 09:40:44 REPLANTING MACHINE CREWMAN Jaycee Garcia [facility]-16118 Level 3 Est. Patient 09:36:32 REPLANTING MACHINE CREWMAN Jaycee Garcia [facility]-65464 Level 4 Est. Patient 16:57:02 REPLANTING MACHINE CREWMAN Pelon Quach MD [facility]-23536 Level 4 Est. Patient 22:19:34 CDT Pelon Quach MD [facility]-41938 Level 3 Est. Patient 00:34:41 CDT Pelon Quach MD [facility]-76901 Level 4 Est. Patient 11:19:14 CDT Pelon Quach MD [facility]-26611 Level 4 Est. Patient 16:43:30 REPLANTING MACHINE CREWMAN Pelon Quach MD [facility]-89051 Level 4 Est. Patient 12:42:18 CDT Pelon Quach MD [facility] CPT-08980 Level 4 Est. Patient 11:52:20 CDT Pelon Quach MD [facility] CPT-93946 Level 4 Est. Patient 13:59:46 CDT Pelon Quach MD [facility] CPT-46757 Level 4 Est. Patient 15:10:48 CDT Pelon Quach MD [facility] CPT-31722 Level 4 Est. Patient 17:13:06 CDT Pelon Quach MD [facility] CPT-76071 Level 4 Est. Patient 18:47:47 CDT Pelon Quach MD [facility] CPT-30542 Level 3 Est. Patient 21:01:27 CDT Pelon Quach MD [facility] CPT-56543 Level 3 Est. Patient 14:07:03 CDT Taty Alvarado MD PhD [facility] CPT-99034 Level 3 New Patient 21:39:52 REPLANTING MACHINE CREWMAN Pelon Quach MD [facility] CPT-09956 Level 3 Est. Patient 14:28:44 CDT Glenn Thornton MD [facility] CPT-78447 Level 3 Est. Patient 16:35:00 CDT Glenn Thornton MD [facility] CPT-39214 Level 4 New Patient 17:06:27 CDT Glenn Thornton MD [facility] [place] Procedures Code Procedure Name Date Entry Date Standard Description CPT-G0438 Initial Annual Wellness Exam 09:30:54 CDT CPT-89823 Prevnar 13 Intramuscular Suspension 14:34:25 CDT 12/27 CPT-97658 Chest 2V Frontal and Lat - XRAY USE ONLY 11:56:13 REPLANTING MACHINE CREWMAN CPT-86340 Cystoscopy 14:28:44 CDT CPT-00015 Bladder Scan 14:28:44 CDT CPT-37913 Indwelling Cath Change 17:06:27 CDT CPT-34314 Cystoscopy 17:06:27 CDT
--- OUTSIDE RECORDS SUMMARY | 2018-06-22 13:11 | XMS REPORT | Clinical Summary ---
Author Author Admin, ONESIMO Organization [facility] [employer] [place] Address Unknown Phone Unavailable Allergies, Adverse Reactions, [...] 1 tab by mouth twice daily TRIMETHOPRIM-SULFAMETHOXAZOLE 06200335659 Active Pelon Quach MD Active BACTROBAN 2 % OINTMENT Apply to affected area BID MUPIROCIN 04575372134 Active Jaycee Garcia APRN Active BACTRIM DS 800-160 MG TABS 1 twice a day SULFAMETHOXAZOLE-TRIMETHOPRIM 52622141788 No Longer Active Pelon Quach MD Active IPRATROPIUM-ALBUTEROL 0.5-2.5 (3) MG/3ML INH SOLN 1 neb treatment QID for cough Dx: J06.9 IPRATROPIUM-ALBUTEROL 43909263393 Active Jaycee Garcia APRN Active IPRATROPIUM-ALBUTEROL 0.5-2.5 (3) MG/3ML SOLN 1 neb treatment four times daily , for cough IPRATROPIUM-ALBUTEROL 38597592463 No Longer Active Jaycee Garcia APRN Active TYLENOL 8 HOUR 650 MG ORAL CR-TABS Take 1 tab po up to 3 times daily as needed ACETAMINOPHEN 60337863838 Active Jaycee Garcia APRN Active FUROSEMIDE 40 MG TABS Take one by mouth daily FUROSEMIDE 11800489452 No Longer Active Jaycee Garcia APRN Active LANTUS 100 UNIT/ML SC SOLN 20 SUBQ AT HS INSULIN GLARGINE 29450600070 Active Jaycee Garcia APRN Active LAMICTAL 25 MG ORAL TABS 2 tabs po BID for convulsions LAMOTRIGINE 46812149451 Active Jaycee Gracia APRN Active INVEGA 6 MG ORAL [id number]-WUS 1 po daily for Schizophrenia PALIPERIDONE 04849140610 Active Jaycee Garcia APRN Active LASIX 20 MG TAB 1 tablet by mouth every morning for edema FUROSEMIDE 15111632999 Active Jaycee Garcia APRN Active BUSPIRONE HCL 10 MG TABS 1 tab by mouth BID BUSPIRONE HCL 68424329995 Active Jaycee Garcia APRN Active NOVOLOG 100 UNIT/ML SC SOLN 10 UNITS BEFORE SUPPER INSULIN ASPART 12240999357 Active Jaycee Garcia APRN Active NOVOLOG 100 UNIT/ML SC SOLN 10 UNITS BID BEFORE BREAKFAST AND LUNCH INSULIN ASPART 32461165600 Active Jaycee Garcia APRN Active LAMICTAL 25 MG TABS 2 tabs by mouth twice a day LAMOTRIGINE 09377396253 Active Pelon Quach MD Active ADULT ASPIRIN EC LOW STRENGTH 81 MG TBEC Take one by mouth daily ASPIRIN 48970592873 No Longer Active Pelon Quach MD Active ASPIRIN 81 MG ORAL TABS 1 po qd ASPIRIN 62569942292 Active Pelon Quach MD Active ZOFRAN 4 MG TABS 1 po q6hr PRN Nausea ONDANSETRON HCL 20272734439 No Longer Active Pelon Quach MD Active TYLENOL 325 MG TAB 1-2 pills by mouth every 6 hours if needed for pain/fever ACETAMINOPHEN 88315040523 No Longer Active Pelon Quach MD Active INVEGA 6 MG ORAL [id number] 1 TAB ONCE DAILY PALIPERIDONE 38618476984 No Longer Active Carly Suggs Active TEGRETOL 200 MG TABS by mouth twice a day CARBAMAZEPINE 52399839546 Active Taty Alvarado MD PhD Active FLOMAX 0.4 MG CAPS 1 Daily TAMSULOSIN HCL 88865895012 Active Marianela Larry Active DILANTIN 100 MG CAPS Take one by mouth daily PHENYTOIN SODIUM EXTENDED 79596444378 No Longer Active Marianela Larry Active DEPAKOTE SPRINKLES 125 MG CPSP 4 capsules by mouth twice daily DIVALPROEX SODIUM 64214342123 No Longer Active Marianela Raida Active LAMICTAL 200 MG ORAL TABS 1 BY MOUTH TWICE A DAY LAMOTRIGINE 28790146313 Active Marianela Raida Active LAMICTAL 100 MG TABS by mouth twice a day LAMOTRIGINE 21774441667 No Longer Active Marianela Raida Active LAMICTAL 150 MG TABS by mouth twice a day LAMOTRIGINE 62721895116 No Longer Active Marianela Raida Active DILANTIN 100 MG CAPS Take three by mouth daily PHENYTOIN SODIUM EXTENDED 27078145286 No Longer Active Marianela Raida Active SENOKOT 8.6 MG TABS take at bedtime SENNOSIDES 46143675365 Active J Ian Thornton MD Active LIPITOR 20 MG TABS take at bedtime ATORVASTATIN CALCIUM 84505968247 Active Glenn Thornton MD Active LISINOPRIL 2.5 MG TABS Take one by mouth daily LISINOPRIL 31938536462 Active Glenn Thornton MD Active TRENTAL 400 MG CR-TABS by mouth twice a day PENTOXIFYLLINE 84400880725 Active Glenn Thornton MD Active KLOR-CON 10 10 MEQ CR-TABS Take one by mouth daily POTASSIUM CHLORIDE 11324300823 Active Glenn Thornton MD Active BACTRIM DS 800-160 MG TABS 1 twice a day BACTRIM DS 800-160 MG TABS 303773 SULFAMETHOXAZOLE-TRIMETHOPRIM Inactive DILANTIN 100 MG CAPS Take three by mouth daily DILANTIN 100 MG CAPS 251638 PHENYTOIN SODIUM EXTENDED Inactive DILANTIN 100 MG CAPS Take one by mouth daily DILANTIN 100 MG CAPS 674848 PHENYTOIN SODIUM EXTENDED Inactive FUROSEMIDE 40 MG TABS Take one by mouth daily FUROSEMIDE 40 MG TABS 296888 FUROSEMIDE Inactive TYLENOL 325 MG TAB 1-2 pills by mouth every 6 hours if needed for pain/fever TYLENOL 325 MG TAB 590881 ACETAMINOPHEN Inactive ZOFRAN 4 MG TABS 1 po q6hr PRN Nausea ZOFRAN 4 MG TABS 755511 ONDANSETRON HCL Inactive LAMICTAL 100 MG TABS by mouth twice a day LAMICTAL 100 MG TABS 19831024 LAMOTRIGINE Inactive LAMICTAL 150 MG TABS by mouth twice a day LAMICTAL 150 MG TABS 19831025 LAMOTRIGINE Inactive ADULT ASPIRIN EC LOW STRENGTH 81 MG TBEC Take one by mouth daily ADULT ASPIRIN EC LOW STRENGTH 81 MG TBEC 985323 ASPIRIN Inactive INVEGA 6 MG ORAL [id number] 1 TAB ONCE DAILY INVEGA 6 MG ORAL [id number] PALIPERIDONE Inactive IPRATROPIUM-ALBUTEROL 0.5-2.5 (3) MG/3ML SOLN 1 neb treatment four times daily , for cough IPRATROPIUM-ALBUTEROL 0.5-2.5 (3) MG/3ML SOLN 6875807 IPRATROPIUM-ALBUTEROL Inactive DEPAKOTE SPRINKLES 125 MG CPSP 4 capsules by mouth twice daily DEPAKOTE SPRINKLES 125 MG CPSP 9419870 DIVALPROEX SODIUM Inactive Advance Directives Directive Description Start Date DURABLE POWER OF SPECTACLE TRUER FOR HEALTHCARE PERMISSION TO SHARE ADVANCED [...] mg/dL Encounters Code Encounter Date Provider Facility CPT-56361 Level 3 Est. Patient 10:15:07 CDT Pelon Quach MD [facility]-85511 Level 4 Est. Patient 09:30:54 CDT Pelon Quach MD [facility] CPT-90357 Level 4 Est. Patient 14:34:25 CDT Pelon Quach MD [facility]-87414 Level 3 Est. 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 Patient 12:13:33 FRUIT INSPECTOR Erik Baptiste MD [facility]-21616 Level 3 Est. Patient 09:40:44 FRUIT INSPECTOR Jaycee Garcia [facility]-15366 Level 3 Est. Patient 09:36:32 FRUIT INSPECTOR Jaycee Garcia [facility]-97964 Level 4 Est. Patient 16:57:02 FRUIT INSPECTOR Pelon Quach MD [facility]-66015 Level 4 Est. Patient 22:19:34 CDT Pelon Quach MD [facility] CPT-64783 Level 3 Est. Patient 00:34:41 CDT Pelon Quach MD [facility]-55470 Level 4 Est. Patient 11:19:14 CDT Pelon Quach MD [facility]-21183 Level 4 Est. Patient 16:43:30 FRUIT INSPECTOR Pelon Quach MD [facility]-67739 Level 4 Est. Patient 12:42:18 CDT Pelon Quach MD [facility] CPT-05763 Level 4 Est. Patient 11:52:20 CDT Pelon Quach MD [facility] CPT-37301 Level 4 Est. Patient 13:59:46 CDT Pelon Quach MD [facility] CPT-09923 Level 4 Est. Patient 15:10:48 CDT Pelon Quach MD [facility] CPT-17479 Level 4 Est. Patient 17:13:06 CDT Pelon Quach MD [facility] CPT-30080 Level 4 Est. Patient 18:47:47 CDT Pelon Quach MD [facility] CPT-39367 Level 3 Est. Patient 21:01:27 CDT Pelon Quach MD [facility] CPT-56778 Level 3 Est. Patient 14:07:03 CDT Taty Alvarado MD PhD [facility] CPT-81663 Level 3 New Patient 21:39:52 FRUIT INSPECTOR Pelon Quach MD [facility] CPT-49290 Level 3 Est. Patient 14:28:44 CDT Glenn Thornton MD [facility] CPT-52153 Level 3 Est. Patient 16:35:00 CDT Glenn Thornton MD [facility] CPT-62745 Level 4 New Patient 17:06:27 CDT Glenn Thornton MD [facility] [place] Procedures Code Procedure Name Date Entry Date Standard Description CPT-G0438 Initial Annual Wellness Exam 09:30:54 CDT CPT-72114 Prevnar 13 Intramuscular Suspension 14:34:25 CDT 12/27 CPT-98942 Chest 2V Frontal and Lat - XRAY USE ONLY 11:56:13 FRUIT INSPECTOR CPT-15345 Cystoscopy 14:28:44 CDT CPT-13022 Bladder Scan 14:28:44 CDT CPT-88325 Indw[address] Cath Change 17:06:27 CDT CPT-83394 Cystoscopy 17:06:27 CDT
--- OUTSIDE RECORDS SUMMARY | 2018-06-22 13:12 | XMS REPORT | Clinical Summary ---
Author Author Admin, ONESIMO Organization [facility] [employer] [place] Address Unknown Phone Unavailable Allergies, Adverse Reactions, [...] tabs by mouth twice a day LAMOTRIGINE 98393583091 Active Pelon Quach MD Active ADULT ASPIRIN EC LOW STRENGTH 81 MG TBEC Take one by mouth daily ASPIRIN 22666730905 No Longer Active Pelon Quach MD Active TYLENOL 8 HOUR 650 MG ORAL CR-TABS Take 1 tab po QID x 7 days ACETAMINOPHEN 14537864994 Active Fanta Rodas MA Active INVEGA [id number]-WDC 3MG BY MOUTH ONE TIME DAILY PALIPERIDONE [id number]-UMW 59339630186 Active Pelon Quach MD Active ASPIRIN 81 MG ORAL TABS 1 po qd ASPIRIN 81091261853 Active Pelon Quach MD Active ZOFRAN 4 MG TABS 1 po q6hr PRN Nausea ONDANSETRON HCL 97268793344 No Longer Active Pelon Quach MD Active TYLENOL 325 MG TAB 1-2 pills by mouth every 6 hours if needed for pain/fever ACETAMINOPHEN 46381954058 No Longer Active Pelon Quach MD Active INVEGA 6 MG ORAL TD00R-QLD 1 TAB ONCE DAILY PALIPERIDONE 94033301244 No Longer Active Carly Suggs Active LANTUS 100 UNIT/ML SC SOLN 18 SUBQ AT HS INSULIN GLARGINE 24157184876 Active Pelon Quach MD Active TEGRETOL 200 MG TABS by mouth twice a day CARBAMAZEPINE 72246186328 Active Taty Alvarado MD PhD Active NOVOLOG 100 UNIT/ML SC SOLN 7 UNITS BEFORE SUPPER INSULIN ASPART 85379451077 Active Marianela Juarez Active NOVOLOG 100 UNIT/ML SC SOLN 7 UNITS BID BEFORE BREAKFAST AND LUNCH INSULIN ASPART 72495447717 Active Marianela Juarez Active FLOMAX 0.4 MG CAPS 1 Daily TAMSULOSIN HCL 13377069706 Active Marianela Juarez Active DILANTIN 100 MG CAPS Take one by mouth daily PHENYTOIN SODIUM EXTENDED 76041780085 No Longer Active Marianela Juarez Active DEPAKOTE SPRINKLES 125 MG CPSP 4 capsules by mouth twice daily DIVALPROEX SODIUM 96599796040 No Longer Active Marianela Juarez Active LAMICTAL 200 MG ORAL TABS 1 BY MOUTH TWICE A DAY LAMOTRIGINE 76879720597 Active Marianela Juarez Active LAMICTAL 100 MG TABS by mouth twice a day LAMOTRIGINE 64014786850 No Longer Active Marianela Juarez Active LAMICTAL 150 MG TABS by mouth twice a day LAMOTRIGINE 31995579871 No Longer Active Marianela Juarez Active DILANTIN 100 MG CAPS Take three by mouth daily PHENYTOIN SODIUM EXTENDED 49134540600 No Longer Active Marianela Juarez Active SENOKOT 8.6 MG TABS take at bedtime SENNOSIDES 75875514683 Active Glenn Thornton MD Active LIPITOR 20 MG TABS take at bedtime ATORVASTATIN CALCIUM 41680715856 Active Glenn Thornton MD Active LISINOPRIL 2.5 MG TABS Take one by mouth daily LISINOPRIL 04218539617 Active Glenn Thornton MD Active TRENTAL 400 MG CR-TABS by mouth twice a day PENTOXIFYLLINE 46959629857 Active Glenn Thornton MD Active BUSPIRONE HCL 10 MG TABS by mouth twice a day BUSPIRONE HCL 75548615232 Active Glenn Thornton MD Active FUROSEMIDE 40 MG TABS Take one by mouth daily FUROSEMIDE 34397414430 Active Glenn Thornton MD Active KLOR-CON 10 10 MEQ CR-TABS Take one by mouth daily POTASSIUM CHLORIDE 63177420084 Active Glenn Thornton MD Active DILANTIN 100 MG CAPS Take three by mouth daily DILANTIN 100 MG CAPS 515391 PHENYTOIN SODIUM EXTENDED Inactive LAMICTAL 150 MG TABS by mouth twice a day LAMICTAL 150 MG TABS 19831025 LAMOTRIGINE Inactive LAMICTAL 100 MG TABS by mouth twice a day LAMICTAL 100 MG TABS 19831024 LAMOTRIGINE Inactive DEPAKOTE SPRINKLES 125 MG CPSP 4 capsules by mouth twice daily DEPAKOTE SPRINKLES 125 MG CPSP 6892382 DIVALPROEX SODIUM Inactive DILANTIN 100 MG CAPS Take one by mouth daily DILANTIN 100 MG CAPS 421731 PHENYTOIN SODIUM EXTENDED Inactive INVEGA 6 MG ORAL SG84X-DBU 1 TAB ONCE DAILY INVEGA 6 MG ORAL CT34P-KGA PALIPERIDONE Inactive TYLENOL 325 MG TAB 1-2 pills by mouth every 6 hours if needed for pain/fever TYLENOL 325 MG TAB 800383 ACETAMINOPHEN Inactive ZOFRAN 4 MG TABS 1 po q6hr PRN Nausea ZOFRAN 4 MG TABS 427066 ONDANSETRON HCL Inactive ADULT ASPIRIN EC LOW STRENGTH 81 MG TBEC Take one by mouth daily ADULT ASPIRIN EC LOW STRENGTH 81 MG TBEC 364886 ASPIRIN Inactive Advance Directives Directive Description Start Date DURABLE POWER OF HEAD OF PRODUCT FOR HEALTHCARE PERMISSION TO SHARE Vital Signs [...] mg/dL Lab Report: CBC, Comp. Metabolic Panel, HGBA1C - Chemistry sodium, serum 132 mmol/L 111-215 1441/10/16 carbon dioxide, venous blood 29.0 mmol/L 21.0-32.0 [...] 4.3-6.0 Lab Report: CBC, Comp. Metabolic Panel, HGBA1C - Hematology leukocyte count, blood 5.8 10^3/MM^3 [...] triglyceride, target level 150 mg/dL Office Visit: 3 MONTH FU - Chemistry cholesterol, target level 200 mg/dL triglyceride, target level 200 mg/dL HDL cholesterol, serum, target level 35 mg/dL LDL target level 100 mg/dL Encounters Code Encounter Date Provider Facility CPT-14404 Level 4 Est. Patient 22:19:34 CDT Pelon Quach MD [facility] CPT-83459 Level 3 Est. Patient 00:34:41 CDT Pelon Quach MD [facility] CPT-95120 Level 4 Est. Patient 11:19:14 CDT Pelon Quach MD [facility] CPT-35449 Level 4 Est. Patient 16:43:30 BELL NECK HAMMERER Pelon Quach MD [facility] CPT-58774 Level 4 Est. Patient 12:42:18 CDT Pelon Quach MD [facility] CPT-25145 Level 4 Est. Patient 11:52:20 CDT Pelon Quach MD [facility] CPT-84436 Level 4 Est. Patient 13:59:46 CDT Pelon Quach MD [facility] CPT-07550 Level 4 Est. Patient 15:10:48 CDT Pelon Quach MD [facility] CPT-64687 Level 4 Est. Patient 17:13:06 CDT Pelon Quach MD [facility] CPT-65724 Level 4 Est. Patient 18:47:47 CDT Pelon Quach MD [facility] CPT-87569 Level 3 Est. Patient 21:01:27 CDT Pelon Quach MD [facility] CPT-55918 Level 3 Est. Patient 14:07:03 CDT Taty Alvarado MD PhD [facility] CPT-43467 Level 3 New Patient 21:39:52 BELL NECK HAMMERER Pelon Quach MD [facility] CPT-75230 Level 3 Est. Patient 14:28:44 CDT Glenn Thornton MD [facility] CPT-65354 Level 3 Est. Patient 16:35:00 CDT Glenn Thornton MD [facility] CPT-48284 Level 4 New Patient 17:06:27 CDT Glenn Thornton MD [facility] Procedures Code Procedure Name Date Entry Date Standard Description CPT-11650 Cystoscopy 14:28:44 CDT CPT-26542 Bladder Scan 14:28:44 CDT CPT-36495 Indwelling Cath Change 17:06:27 CDT CPT-95290 Cystoscopy 17:06:27 CDT
--- OUTSIDE RECORDS SUMMARY | 2018-06-22 13:12 | XMS REPORT | Clinical Summary ---
Author Author Admin, ONESIMO Organization [facility] [employer] [place] Address Unknown Phone Unavailable Allergies, Adverse Reactions, [...] 1 tab by mouth twice daily TRIMETHOPRIM-SULFAMETHOXAZOLE 57481817348 Active Pelon Quach MD Active BACTROBAN 2 % OINTMENT Apply to affected area BID MUPIROCIN 71317405496 Active Jaycee Garcia APRN Active BACTRIM DS 800-160 MG TABS 1 twice a day SULFAMETHOXAZOLE-TRIMETHOPRIM 76417202749 No Longer Active Pelon Quach MD Active IPRATROPIUM-ALBUTEROL 0.5-2.5 (3) MG/3ML INH SOLN 1 neb treatment QID for cough Dx: J06.9 IPRATROPIUM-ALBUTEROL 93133353382 Active Jaycee Garcia APRN Active IPRATROPIUM-ALBUTEROL 0.5-2.5 (3) MG/3ML SOLN 1 neb treatment four times daily , for cough IPRATROPIUM-ALBUTEROL 58809756928 No Longer Active Jaycee Gracia APRN Active TYLENOL 8 HOUR 650 MG ORAL CR-TABS Take 1 tab po up to 3 times daily as needed ACETAMINOPHEN 58660823748 Active Jaycee Garcia APRN Active FUROSEMIDE 40 MG TABS Take one by mouth daily FUROSEMIDE 19208920575 No Longer Active Jaycee Garcia APRN Active LANTUS 100 UNIT/ML SC SOLN 20 SUBQ AT HS INSULIN GLARGINE 76432399636 Active Jaycee Garcia APRN Active LAMICTAL 25 MG ORAL TABS 2 tabs po BID for convulsions LAMOTRIGINE 68932581192 Active Jaycee Garcia APRN Active INVEGA 6 MG ORAL [id number] 1 po daily for Schizophrenia PALIPERIDONE 71006246755 Active Jaycee Garcia APRN Active LASIX 20 MG TAB 1 tablet by mouth every morning for edema FUROSEMIDE 20819268642 Active Jaycee Garcia APRN Active BUSPIRONE HCL 10 MG TABS 1 tab by mouth BID BUSPIRONE HCL 47434160857 Active Jaycee Garcia APRN Active NOVOLOG 100 UNIT/ML SC SOLN 10 UNITS BEFORE SUPPER INSULIN ASPART 62461946611 Active Jaycee Garcia APRN Active NOVOLOG 100 UNIT/ML SC SOLN 10 UNITS BID BEFORE BREAKFAST AND LUNCH INSULIN ASPART 12343950946 Active Jaycee Garcia APRN Active LAMICTAL 25 MG TABS 2 tabs by mouth twice a day LAMOTRIGINE 00076331699 Active Pelon Quach MD Active ADULT ASPIRIN EC LOW STRENGTH 81 MG TBEC Take one by mouth daily ASPIRIN 45023628844 No Longer Active Pelon Quach MD Active ASPIRIN 81 MG ORAL TABS 1 po qd ASPIRIN 02037576537 Active Pelon Quach MD Active ZOFRAN 4 MG TABS 1 po q6hr PRN Nausea ONDANSETRON HCL 46452264797 No Longer Active Pelon Quach MD Active TYLENOL 325 MG TAB 1-2 pills by mouth every 6 hours if needed for pain/fever ACETAMINOPHEN 25129854336 No Longer Active Pelon Quach MD Active INVEGA 6 MG ORAL [id number] 1 TAB ONCE DAILY PALIPERIDONE 13690927000 No Longer Active aCrly Suggs Active TEGRETOL 200 MG TABS by mouth twice a day CARBAMAZEPINE 86467618239 Active Taty Alvarado MD PhD Active FLOMAX 0.4 MG CAPS 1 Daily TAMSULOSIN HCL 18297465898 Active Marianela Larry Active DILANTIN 100 MG CAPS Take one by mouth daily PHENYTOIN SODIUM EXTENDED 53146899547 No Longer Active Marianela Larry Active DEPAKOTE SPRINKLES 125 MG CPSP 4 capsules by mouth twice daily DIVALPROEX SODIUM 57321272760 No Longer Active Marianela Raida Active LAMICTAL 200 MG ORAL TABS 1 BY MOUTH TWICE A DAY LAMOTRIGINE 75997388208 Active Marianela Raida Active LAMICTAL 100 MG TABS by mouth twice a day LAMOTRIGINE 17225414891 No Longer Active Marianela Raida Active LAMICTAL 150 MG TABS by mouth twice a day LAMOTRIGINE 98096132566 No Longer Active Marianela Raida Active DILANTIN 100 MG CAPS Take three by mouth daily PHENYTOIN SODIUM EXTENDED 63503816110 No Longer Active Marianela Raida Active SENOKOT 8.6 MG TABS take at bedtime SENNOSIDES 73378607428 Active J Ian Thornton MD Active LIPITOR 20 MG TABS take at bedtime ATORVASTATIN CALCIUM 52450124212 Active Glenn Thornton MD Active LISINOPRIL 2.5 MG TABS Take one by mouth daily LISINOPRIL 18133964608 Active Glenn Thornton MD Active TRENTAL 400 MG CR-TABS by mouth twice a day PENTOXIFYLLINE 33974528060 Active Glenn Thornton MD Active KLOR-CON 10 10 MEQ CR-TABS Take one by mouth daily POTASSIUM CHLORIDE 06310203906 Active Glenn Thornton MD Active DILANTIN 100 MG CAPS Take three by mouth daily DILANTIN 100 MG CAPS 216980 PHENYTOIN SODIUM EXTENDED Inactive LAMICTAL 150 MG TABS by mouth twice a day LAMICTAL 150 MG TABS 19831025 LAMOTRIGINE Inactive LAMICTAL 100 MG TABS by mouth twice a day LAMICTAL 100 MG TABS 19831024 LAMOTRIGINE Inactive DEPAKOTE SPRINKLES 125 MG CPSP 4 capsules by mouth twice daily DEPAKOTE SPRINKLES 125 MG CPSP 4950914 DIVALPROEX SODIUM Inactive DILANTIN 100 MG CAPS Take one by mouth daily DILANTIN 100 MG CAPS 854954 PHENYTOIN SODIUM EXTENDED Inactive INVEGA 6 MG ORAL [id number] 1 TAB ONCE DAILY INVEGA 6 MG ORAL [id number] PALIPERIDONE Inactive TYLENOL 325 MG TAB 1-2 pills by mouth every 6 hours if needed for pain/fever TYLENOL 325 MG TAB 777395 ACETAMINOPHEN Inactive ZOFRAN 4 MG TABS 1 po q6hr PRN Nausea ZOFRAN 4 MG TABS 326179 ONDANSETRON HCL Inactive ADULT ASPIRIN EC LOW STRENGTH 81 MG TBEC Take one by mouth daily ADULT ASPIRIN EC LOW STRENGTH 81 MG TBEC 320555 ASPIRIN Inactive FUROSEMIDE 40 MG TABS Take one by mouth daily FUROSEMIDE 40 MG TABS 567534 FUROSEMIDE Inactive BACTRIM DS 800-160 MG TABS 1 twice a day BACTRIM DS 800-160 MG TABS 859108 SULFAMETHOXAZOLE-TRIMETHOPRIM Inactive IPRATROPIUM-ALBUTEROL 0.5-2.5 (3) MG/3ML SOLN 1 neb treatment four times daily , for cough IPRATROPIUM-ALBUTEROL 0.5-2.5 (3) MG/3ML SOLN 9447948 IPRATROPIUM-ALBUTEROL Inactive Advance Directives Directive Description Start Date DURABLE POWER OF HISTOTECHNOLOGIST FOR HEALTHCARE PERMISSION TO SHARE ADVANCED DIRECTIVE [...] mg/dL Encounters Code Encounter Date Provider Facility CPT-09277 Level 3 Est. Patient 10:32:17 CDT Jaycee Garcia APRN [facility] CPT-86293 Level 3 Est. Patient 10:15:07 CDT Pelon Quach MD [facility]-18747 Level 4 Est. Patient 09:30:54 CDT Pelon Quach MD [facility] CPT-75110 Level 4 Est. Patient 14:34:25 CDT Pelon Quach MD [facility]-73350 Level 3 Est. Patient 11:51:35 MILITARY PAY CLERK Rick Henson DO [facility] CPT-45489 Level 3 Est. Patient 12:13:33 MILITARY PAY CLERK Erik Baptiste MD [facility]-49397 Level 3 Est. Patient 09:40:44 MILITARY PAY CLERK Jaycee Garcia [facility]-84874 Level 3 Est. Patient 09:36:32 MILITARY PAY CLERK Jaycee Garcia [facility]-94106 Level 4 Est. Patient 16:57:02 MILITARY PAY CLERK Pelon Quach MD [facility] CPT-65163 Level 4 Est. Patient 22:19:34 CDT Pelon Quach MD [facility]-60470 Level 3 Est. Patient 00:34:41 CDT Pelon Quach MD [facility]-40909 Level 4 Est. Patient 11:19:14 CDT Pelon Quach MD [facility]-14199 Level 4 Est. Patient 16:43:30 MILITARY PAY CLERK Pelon Quach MD [facility]-71078 Level 4 Est. Patient 12:42:18 CDT Pelon Quach MD [facility] CPT-97216 Level 4 Est. Patient 11:52:20 CDT Pelon Quach MD [facility] CPT-18897 Level 4 Est. Patient 13:59:46 CDT Pelon Quach MD [facility] CPT-58476 Level 4 Est. Patient 15:10:48 CDT Pelon Quach MD [facility] CPT-88130 Level 4 Est. Patient 17:13:06 CDT Pelon Quach MD [facility] CPT-63723 Level 4 Est. Patient 18:47:47 CDT Pelon Quach MD [facility] CPT-59470 Level 3 Est. Patient 21:01:27 CDT Pelon Quach MD [facility] CPT-72906 Level 3 Est. Patient 14:07:03 CDT Taty Alvarado MD PhD [facility] CPT-60097 Level 3 New Patient 21:39:52 MILITARY PAY CLERK Pelon Quach MD [facility] CPT-19570 Level 3 Est. Patient 14:28:44 CDT Glenn Thornton MD [facility] CPT-55342 Level 3 Est. Patient 16:35:00 CDT Glenn Thornton MD [facility] CPT-05609 Level 4 New Patient 17:06:27 CDT Glenn Thornton MD [facility] [place] Procedures Code Procedure Name Date Entry Date Standard Description CPT-G0438 Initial Annual Wellness Exam 09:30:54 CDT CPT-89009 Prevnar 13 Intramuscular Suspension 14:34:25 CDT 12/27 CPT-00158 Chest 2V Frontal and Lat - XRAY USE ONLY 11:56:13 MILITARY PAY CLERK CPT-33564 Cystoscopy 14:28:44 CDT CPT-30926 Bladder Scan 14:28:44 CDT CPT-51194 Indwelling Cath Change 17:06:27 CDT CPT-86762 Cystoscopy 17:06:27 CDT
--- OUTSIDE RECORDS SUMMARY | 2018-06-22 13:13 | XMS REPORT | Clinical Summary ---
Author Author Admin, ONESIMO Organization [facility] [employer] Address Unknown Phone Unavailable Allergies, Adverse Reactions, [...] Esophageal reflux Diabetes-Type 2 250.00 Active Pelon Quahc MD Diabetes mellitus without mention of complication, [...] TABS 1 twice a day SULFAMETHOXAZOLE- TRIMETHOPRIM 41971201741 Active Erik Baptiste MD Active IPRATROPIUM-ALBUTEROL 0.5-2.5 (3) MG/3ML INH SOLN 1 neb treatment QID for cough Dx: J06.9 IPRATROPIUM-ALBUTEROL 37590182625 Active Jaycee Garcia APRN Active IPRATROPIUM-ALBUTEROL 0.5-2.5 (3) MG/3ML SOLN 1 neb treatment four times daily , for cough IPRATROPIUM-ALBUTEROL 99371653894 No Longer Active Jaycee Garcia APRN Active TYLENOL 8 HOUR 650 MG ORAL CR-TABS Take 1 tab po up to 3 times daily as needed ACETAMINOPHEN 30044643169 Active Jaycee Jose GMAT TUTOR Active FUROSEMIDE 40 MG TABS Take one by mouth daily FUROSEMIDE 63048781091 No Longer Active Jaycee Garcia VICTORINO Active LANTUS 100 UNIT/ML SC SOLN 20 SUBQ AT HS INSULIN GLARGINE 66585666500 Active Jaycee Jose GMAT TUTOR Active LAMICTAL 25 MG ORAL TABS 2 tabs po BID for convulsions LAMOTRIGINE 94736737030 Active Jaycee Garcia VICTORINO Active INVEGA 6 MG ORAL [id number] 1 po daily for Schizophrenia PALIPERIDONE 03034696113 Active Jaycee Garcia VICTORINO Active LASIX 20 MG TAB 1 tablet by mouth every morning for edema FUROSEMIDE 40705040462 Active Jayceehugo Garcia APRN Active BUSPIRONE HCL 10 MG TABS 1 tab by mouth BID BUSPIRONE HCL 31628303842 Active Jaycee Garcia VICTORINO Active NOVOLOG 100 UNIT/ML SC SOLN 10 UNITS BEFORE SUPPER INSULIN ASPART 93371853258 Active Jaycee Garcia VICTORINO Active NOVOLOG 100 UNIT/ML SC SOLN 10 UNITS BID BEFORE BREAKFAST AND LUNCH INSULIN ASPART 64593465909 Active Jaycee Garcia VICTORINO Active LAMICTAL 25 MG TABS 2 tabs by mouth twice a day LAMOTRIGINE 54592520030 Active Pelon Quach MD Active ADULT ASPIRIN EC LOW STRENGTH 81 MG TBEC Take one by mouth daily ASPIRIN 61974664649 No Longer Active Pelon Quach MD Active ASPIRIN 81 MG ORAL TABS 1 po qd ASPIRIN 18523184467 Active Pelon Quach MD Active ZOFRAN 4 MG TABS 1 po q6hr PRN Nausea ONDANSETRON HCL 55775261931 No Longer Active Pelon Quach MD Active TYLENOL 325 MG TAB 1-2 pills by mouth every 6 hours if needed for pain/fever ACETAMINOPHEN 92378042674 No Longer Active Pelon Quach MD Active INVEGA 6 MG ORAL [id number] 1 TAB ONCE DAILY PALIPERIDONE 67924778615 No Longer Active Carly Suggs Active TEGRETOL 200 MG TABS by mouth twice a day CARBAMAZEPINE 06016447817 Active Taty Alvarado MD PhD Active FLOMAX 0.4 MG CAPS 1 Daily TAMSULOSIN HCL 23993538135 Active Marianelachandrika Juarez Active DILANTIN 100 MG CAPS Take one by mouth daily PHENYTOIN SODIUM EXTENDED 47378884708 No Longer Active Marianelachandrika Juarez Active DEPAKOTE SPRINKLES 125 MG CPSP 4 capsules by mouth twice daily DIVALPROEX SODIUM 61722984430 No Longer Active Marianelachandrika Juarez Active LAMICTAL 200 MG ORAL TABS 1 BY MOUTH TWICE A DAY LAMOTRIGINE 15420143535 Active Marianelachandrika Juarez Active LAMICTAL 100 MG TABS by mouth twice a day LAMOTRIGINE 30800853965 No Longer Active Marianelachandrika Juarez Active LAMICTAL 150 MG TABS by mouth twice a day LAMOTRIGINE 12341170076 No Longer Active Marianelachandrika Juarez Active DILANTIN 100 MG CAPS Take three by mouth daily PHENYTOIN SODIUM EXTENDED 95193416542 No Longer Active Marianela Juarez Active SENOKOT 8.6 MG TABS take at bedtime SENNOSIDES 15402189472 Active Glenn Thornton MD Active LIPITOR 20 MG TABS take at bedtime ATORVASTATIN CALCIUM 96323806112 Active Glenn Thornton MD Active LISINOPRIL 2.5 MG TABS Take one by mouth daily LISINOPRIL 99602358941 Active Glenn Thornton MD Active TRENTAL 400 MG CR-TABS by mouth twice a day PENTOXIFYLLINE 04511575717 Active Glenn Thornton MD Active KLOR-CON 10 10 MEQ CR-TABS Take one by mouth daily POTASSIUM CHLORIDE 71614202678 Active Glenn Thornton MD Active DILANTIN 100 MG CAPS Take three by mouth daily DILANTIN 100 MG CAPS 586438 PHENYTOIN SODIUM EXTENDED Inactive LAMICTAL 150 MG TABS by mouth twice a day LAMICTAL 150 MG TABS 19831025 LAMOTRIGINE Inactive LAMICTAL 100 MG TABS by mouth twice a day LAMICTAL 100 MG TABS 19831024 LAMOTRIGINE Inactive DEPAKOTE SPRINKLES 125 MG CPSP 4 capsules by mouth twice daily DEPAKOTE SPRINKLES 125 MG CPSP 9957500 DIVALPROEX SODIUM Inactive DILANTIN 100 MG CAPS Take one by mouth daily DILANTIN 100 MG CAPS 187322 PHENYTOIN SODIUM EXTENDED Inactive INVEGA 6 MG ORAL [id number] 1 TAB ONCE DAILY INVEGA 6 MG ORAL [id number] PALIPERIDONE Inactive TYLENOL 325 MG TAB 1-2 pills by mouth every 6 hours if needed for pain/fever TYLENOL 325 MG TAB 058850 ACETAMINOPHEN Inactive ZOFRAN 4 MG TABS 1 po q6hr PRN Nausea ZOFRAN 4 MG TABS 451049 ONDANSETRON HCL Inactive ADULT ASPIRIN EC LOW STRENGTH 81 MG TBEC Take one by mouth daily ADULT ASPIRIN EC LOW STRENGTH 81 MG TBEC 789822 ASPIRIN Inactive FUROSEMIDE 40 MG TABS Take one by mouth daily FUROSEMIDE 40 MG TABS 928657 FUROSEMIDE Inactive IPRATROPIUM-ALBUTEROL 0.5-2.5 (3) MG/3ML SOLN 1 neb treatment four times daily , for cough IPRATROPIUM-ALBUTEROL 0.5-2.5 (3) MG/3ML SOLN 4023193 IPRATROPIUM-ALBUTEROL Inactive Advance Directives Directive Description Start Date DURABLE POWER OF AUTO HAULER FOR HEALTHCARE PERMISSION TO SHARE ADVANCED DIRECTIVE [...] mg/dL Encounters Code Encounter Date Provider Facility CPT-48532 Level 3 Est. Patient 11:51:35 MACHINE REPAIRMAN Rick Henson DO [facility] CPT-80693 Level 3 Est. Patient 12:13:33 MACHINE REPAIRMAN Erik Baptiste MD [facility] CPT-68866 Level 3 Est. Patient 09:40:44 MACHINE REPAIRMAN Jaycee Garcia [facility] CPT-70902 Level 3 Est. Patient 09:36:32 MACHINE REPAIRMAN Jaycee Garcia [facility] CPT-85810 Level 4 Est. Patient 16:57:02 MACHINE REPAIRMAN Pelon Quach MD [facility] CPT-70504 Level 4 Est. Patient 22:19:34 CDT Pelon Quach MD [facility] CPT-53628 Level 3 Est. Patient 00:34:41 CDT Pelon Quach MD [facility] CPT-88187 Level 4 Est. Patient 11:19:14 CDT Pelon Quach MD [facility] CPT-13335 Level 4 Est. Patient 16:43:30 MACHINE REPAIRMAN Pelon Quach MD [facility] CPT-78203 Level 4 Est. Patient 12:42:18 CDT Pelon Quach MD [facility] CPT-61091 Level 4 Est. Patient 11:52:20 CDT Pelon Quach MD [facility] CPT-23339 Level 4 Est. Patient 13:59:46 CDT Pelon Quach MD [facility] CPT-36602 Level 4 Est. Patient 15:10:48 CDT Pelon Quach MD [facility] CPT-35157 Level 4 Est. Patient 17:13:06 CDT Pelon Quach MD [facility] CPT-42840 Level 4 Est. Patient 18:47:47 CDT Pelon Quach MD [facility] CPT-37393 Level 3 Est. Patient 21:01:27 CDT Pelon Quach MD [facility] CPT-95396 Level 3 Est. Patient 14:07:03 CDT Taty Alvarado MD PhD [facility] CPT-10262 Level 3 New Patient 21:39:52 MACHINE REPAIRMAN Pelon Quach MD [facility] CPT-12211 Level 3 Est. Patient 14:28:44 CDT Glenn Thornton MD [facility] CPT-60295 Level 3 Est. Patient 16:35:00 CDT Glenn Thornton MD [facility] CPT-55573 Level 4 New Patient 17:06:27 CDT Glenn Thornton MD [facility] Procedures Code Procedure Name Date Entry Date Standard Description CPT-86724 Chest 2V Frontal and Lat - XRAY USE ONLY 11:56:13 MACHINE REPAIRMAN CPT-32078 Cystoscopy 14:28:44 CDT CPT-15682 Bladder Scan 14:28:44 CDT CPT-67[address] Ind[address] Change 17:06:27 CDT CPT-74762 Cystoscopy 17:06:27 CDT
--- OUTSIDE RECORDS SUMMARY | 2018-06-22 13:14 | XMS REPORT | Clinical Summary ---
Author Author Admin, ONESIMO Organization [facility] Address Unknown Phone Unavailable Allergies, Adverse Reactions, [...] TABS 1 twice a day SULFAMETHOXAZOLE- TRIMETHOPRIM 52940110379 Active Erik Baptiste MD Active IPRATROPIUM-ALBUTEROL 0.5-2.5 (3) MG/3ML INH SOLN 1 neb treatment QID for cough Dx: J06.9 IPRATROPIUM-ALBUTEROL 02715235079 Active Jaycee Garcia APRN Active IPRATROPIUM-ALBUTEROL 0.5-2.5 (3) MG/3ML SOLN 1 neb treatment four times daily , for cough IPRATROPIUM-ALBUTEROL 14969649446 No Longer Active Jaycee Garcia APRN Active TYLENOL 8 HOUR 650 MG ORAL CR-TABS Take 1 tab po up to 3 times daily as needed ACETAMINOPHEN 31868535378 Active Jaycee Jose DECORATOR INSPECTOR Active FUROSEMIDE 40 MG TABS Take one by mouth daily FUROSEMIDE 84428677255 No Longer Active Jaycee Garcia VICTORINO Active LANTUS 100 UNIT/ML SC SOLN 20 SUBQ AT HS INSULIN GLARGINE 00868706418 Active Jaycee Jose DECORATOR INSPECTOR Active LAMICTAL 25 MG ORAL TABS 2 tabs po BID for convulsions LAMOTRIGINE 25369009099 Active Jaycee Garcia VICTORINO Active INVEGA 6 MG ORAL [id number] 1 po daily for Schizophrenia PALIPERIDONE 71076122382 Active Jaycee Garcia VICTORINO Active LASIX 20 MG TAB 1 tablet by mouth every morning for edema FUROSEMIDE 87767964978 Active Jayceeuhgo Garcia APRN Active BUSPIRONE HCL 10 MG TABS 1 tab by mouth BID BUSPIRONE HCL 02350690862 Active Jaycee Garcia VICTORINO Active NOVOLOG 100 UNIT/ML SC SOLN 10 UNITS BEFORE SUPPER INSULIN ASPART 31078759550 Active Jaycee Garcia VICTORINO Active NOVOLOG 100 UNIT/ML SC SOLN 10 UNITS BID BEFORE BREAKFAST AND LUNCH INSULIN ASPART 14571268582 Active Jaycee Garcia VICTORINO Active LAMICTAL 25 MG TABS 2 tabs by mouth twice a day LAMOTRIGINE 02928658135 Active Pelon Quach MD Active ADULT ASPIRIN EC LOW STRENGTH 81 MG TBEC Take one by mouth daily ASPIRIN 86927660176 No Longer Active Pelon Quach MD Active ASPIRIN 81 MG ORAL TABS 1 po qd ASPIRIN 05761251758 Active Pelon Quach MD Active ZOFRAN 4 MG TABS 1 po q6hr PRN Nausea ONDANSETRON HCL 39443632821 No Longer Active Pelon Quach MD Active TYLENOL 325 MG TAB 1-2 pills by mouth every 6 hours if needed for pain/fever ACETAMINOPHEN 51319445662 No Longer Active ePlon Quach MD Active INVEGA 6 MG ORAL [id number] 1 TAB ONCE DAILY PALIPERIDONE 06697505989 No Longer Active Carly Suggs Active TEGRETOL 200 MG TABS by mouth twice a day CARBAMAZEPINE 31471874740 Active Taty Alvarado MD PhD Active FLOMAX 0.4 MG CAPS 1 Daily TAMSULOSIN HCL 63235521730 Active Marianelachandrika Juarez Active DILANTIN 100 MG CAPS Take one by mouth daily PHENYTOIN SODIUM EXTENDED 12258792581 No Longer Active Marianelachandrika Juarez Active DEPAKOTE SPRINKLES 125 MG CPSP 4 capsules by mouth twice daily DIVALPROEX SODIUM 55908449439 No Longer Active Marianelachandrika Juarez Active LAMICTAL 200 MG ORAL TABS 1 BY MOUTH TWICE A DAY LAMOTRIGINE 81801292908 Active Marianelachandrika Juarez Active LAMICTAL 100 MG TABS by mouth twice a day LAMOTRIGINE 10454024593 No Longer Active Marianelachandrika Juarez Active LAMICTAL 150 MG TABS by mouth twice a day LAMOTRIGINE 45842334005 No Longer Active Marianelachandrika Juarez Active DILANTIN 100 MG CAPS Take three by mouth daily PHENYTOIN SODIUM EXTENDED 18432294868 No Longer Active Marianela Juarez Active SENOKOT 8.6 MG TABS take at bedtime SENNOSIDES 29127472741 Active Glenn Thornton MD Active LIPITOR 20 MG TABS take at bedtime ATORVASTATIN CALCIUM 68266046753 Active Glenn Thornton MD Active LISINOPRIL 2.5 MG TABS Take one by mouth daily LISINOPRIL 30146302702 Active Glenn Thornton MD Active TRENTAL 400 MG CR-TABS by mouth twice a day PENTOXIFYLLINE 76707091226 Active Glenn Thornton MD Active KLOR-CON 10 10 MEQ CR-TABS Take one by mouth daily POTASSIUM CHLORIDE 02218228410 Active Glenn Thornton MD Active DILANTIN 100 MG CAPS Take three by mouth daily DILANTIN 100 MG CAPS 194519 PHENYTOIN SODIUM EXTENDED Inactive LAMICTAL 150 MG TABS by mouth twice a day LAMICTAL 150 MG TABS 19831025 LAMOTRIGINE Inactive LAMICTAL 100 MG TABS by mouth twice a day LAMICTAL 100 MG TABS 19831024 LAMOTRIGINE Inactive DEPAKOTE SPRINKLES 125 MG CPSP 4 capsules by mouth twice daily DEPAKOTE SPRINKLES 125 MG CPSP 3389419 DIVALPROEX SODIUM Inactive DILANTIN 100 MG CAPS Take one by mouth daily DILANTIN 100 MG CAPS 119357 PHENYTOIN SODIUM EXTENDED Inactive INVEGA 6 MG ORAL [id number] 1 TAB ONCE DAILY INVEGA 6 MG ORAL [id number] PALIPERIDONE Inactive TYLENOL 325 MG TAB 1-2 pills by mouth every 6 hours if needed for pain/fever TYLENOL 325 MG TAB 508227 ACETAMINOPHEN Inactive ZOFRAN 4 MG TABS 1 po q6hr PRN Nausea ZOFRAN 4 MG TABS 829139 ONDANSETRON HCL Inactive ADULT ASPIRIN EC LOW STRENGTH 81 MG TBEC Take one by mouth daily ADULT ASPIRIN EC LOW STRENGTH 81 MG TBEC 338784 ASPIRIN Inactive FUROSEMIDE 40 MG TABS Take one by mouth daily FUROSEMIDE 40 MG TABS 253299 FUROSEMIDE Inactive IPRATROPIUM-ALBUTEROL 0.5-2.5 (3) MG/3ML SOLN 1 neb treatment four times daily , for cough IPRATROPIUM-ALBUTEROL 0.5-2.5 (3) MG/3ML SOLN 5582512 IPRATROPIUM-ALBUTEROL Inactive Advance Directives Directive Description Start Date DURABLE POWER OF CONTROL SYSTEMS ENGINEER FOR HEALTHCARE PERMISSION TO SHARE ADVANCED [...] mg/dL Encounters Code Encounter Date Provider Facility CPT-05642 Level 3 Est. Patient 11:51:35 TALENT ASSISTANT Rick Henson DO [facility] CPT-12129 Level 3 Est. Patient 12:13:33 TALENT ASSISTANT Erik Baptiste MD [facility] CPT-21297 Level 3 Est. Patient 09:40:44 TALENT ASSISTANT Jaycee Garcia [facility] CPT-11637 Level 3 Est. Patient 09:36:32 TALENT ASSISTANT Jaycee Garcia [facility] CPT-09743 Level 4 Est. Patient 16:57:02 TALENT ASSISTANT Pelon Quach MD [facility] CPT-03480 Level 4 Est. Patient 22:19:34 CDT Pelon Quach MD [facility] CPT-76870 Level 3 Est. Patient 00:34:41 CDT Pelon Quach MD [facility] CPT-76289 Level 4 Est. Patient 11:19:14 CDT Pelon Quach MD [facility] CPT-89515 Level 4 Est. Patient 16:43:30 TALENT ASSISTANT Pelon Quach MD [facility] CPT-21030 Level 4 Est. Patient 12:42:18 CDT Pelon Quach MD [facility] CPT-87843 Level 4 Est. Patient 11:52:20 CDT Pelon Quach MD [facility] CPT-14865 Level 4 Est. Patient 13:59:46 CDT Pelon Quach MD [facility] CPT-80084 Level 4 Est. Patient 15:10:48 CDT Pelon Quach MD [facility] CPT-35994 Level 4 Est. Patient 17:13:06 CDT Pelon Quach MD [facility] CPT-28314 Level 4 Est. Patient 18:47:47 CDT Pelon Quach MD [facility] CPT-19450 Level 3 Est. Patient 21:01:27 CDT Pelon Quach MD [facility] CPT-51790 Level 3 Est. Patient 14:07:03 CDT Taty Alvarado MD PhD [facility] CPT-35060 Level 3 New Patient 21:39:52 TALENT ASSISTANT Pelon Quach MD [facility] CPT-27145 Level 3 Est. Patient 14:28:44 CDT Glenn Thornton MD [facility] CPT-71647 Level 3 Est. Patient 16:35:00 CDT Glenn Thornton MD [facility] CPT-60085 Level 4 New Patient 17:06:27 CDT Glenn Thornton MD [facility] Procedures Code Procedure Name Date Entry Date Standard Description CPT-50303 Chest 2V Frontal and Lat - XRAY USE ONLY 11:56:13 TALENT ASSISTANT CPT-29644 Cystoscopy 14:28:44 CDT CPT-69641 Bladder Scan 14:28:44 CDT CPT-56232 Indwelling Cath Change 17:06:27 CDT CPT-82424 Cystoscopy 17:06:27 CDT
--- OUTSIDE RECORDS SUMMARY | 2018-06-22 13:15 | XMS REPORT | Clinical Summary ---
Author Author Admin, ONESIMO Organization [facility] [employer] Address Unknown Phone Unavailable Allergies, Adverse Reactions, [...] respiratory abnormality Preventive health care V70.0 Active ePlon Quach MD Routine general medical examination at [...] HOUR 1 po daily for schizophrenia PALIPERIDONE 16362034368 Active Pelon Quach MD Active LAMICTAL 25 MG ORAL TABLET 2 tabs by mouth twice a day LAMOTRIGINE 75352101542 No Longer Active Pelon Quach MD Active BACTROBAN 2 % EXTERNAL OINTMENT Apply to affected area BID 06/28 MUPIROCIN 22844973085 No Longer Active Pelon Quach MD Active BANOPHEN 25 MG ORAL TABLET 1 po every 6 hours PRN allergic reaction DIPHENHYDRAMINE HCL 94710875175 Active NICOLETTE Hitchcock Active INVEGA 6 MG ORAL TABLET EXTENDED RELEASE 24 HOUR 1 po daily for Schizophrenia PALIPERIDONE 34852611235 No Longer Active Pelon Quach MD Active TYLENOL 8 HOUR 650 MG ORAL TABLET EXTENDED RELEASE Take 1 tab po up to 3 times daily as needed ACETAMINOPHEN 74680316627 No Longer Active Pelon Quach MD Active IPRATROPIUM-ALBUTEROL 0.5-2.5 (3) MG/3ML INHALATION SOLUTION 1 neb treatment QID for cough Dx: J06.9 IPRATROPIUM-ALBUTEROL 20630476518 No Longer Active Pelon Quach MD Active BACTRIM DS 800-160 MG ORAL TABLET 1 tab by mouth twice daily 2016 TRIMETHOPRIM-SULFAMETHOXAZOLE 27534750494 No Longer Active Pelon Quach MD Active BACTRIM DS 800-160 MG ORAL TABLET 1 twice a day SULFAMETHOXAZOLE-TRIMETHOPRIM 41774523016 No Longer Active Pelon Quach MD Active IPRATROPIUM-ALBUTEROL 0.5-2.5 (3) MG/3ML INHALATION SOLUTION 1 neb treatment four times daily, for cough IPRATROPIUM-ALBUTEROL 53619581096 No Longer Active Jaycee Garcia APRN Active FUROSEMIDE 40 MG ORAL TABLET Take one by mouth daily FUROSEMIDE 01287757432 No Longer Active Jaycee Garcia APRN Active LANTUS 100 UNIT/ML SUBCUTANEOUS SOLUTION 20 SUBQ AT HS INSULIN GLARGINE 09403285444 Active Pelon Quach MD Active LAMICTAL 25 MG ORAL TABLET 2 tabs po BID for convulsions LAMOTRIGINE 76490487381 Active Jaycee Garcia APRN Active LASIX 20 MG ORAL TABLET 1 tablet by mouth every morning for edema FUROSEMIDE 03344182890 Active Jaycee Garcia APRN Active BUSPIRONE HCL 10 MG ORAL TABLET 1 tab by mouth BID BUSPIRONE HCL 47022184703 Active Jaycee Garcia APRN Active NOVOLOG 100 UNIT/ML SUBCUTANEOUS SOLUTION 10 UNITS BEFORE SUPPER INSULIN ASPART 86930681953 Active Jaycee Garcia APRN Active NOVOLOG 100 UNIT/ML SUBCUTANEOUS SOLUTION 10 UNITS BID BEFORE BREAKFAST AND LUNCH INSULIN ASPART 59202033952 Active Jaycee Garcia APRN Active ADULT ASPIRIN EC LOW STRENGTH 81 MG ORAL TABLET DELAYED RELEASE Take one by mouth daily ASPIRIN 74246069859 No Longer Active Pelon Quach MD Active ASPIRIN 81 MG ORAL TABLET 1 po qd ASPIRIN 03148314294 Active Pelon Quach MD Active ZOFRAN 4 MG ORAL TABLET 1 po q6hr PRN Nausea ONDANSETRON HCL 79946852910 No Longer Active Pelon Quach MD Active TYLENOL 325 MG ORAL TABLET 1-2 pills by mouth every 6 hours if needed for pain /fever ACETAMINOPHEN 20246757434 No Longer Active Pelon Quach MD Active INVEGA 6 MG ORAL TABLET EXTENDED RELEASE 24 HOUR 1 TAB ONCE DAILY PALIPERIDONE 22986898880 No Longer Active Carly Suggs Active TEGRETOL 200 MG ORAL TABLET by mouth twice a day CARBAMAZEPINE 42139259697 Active Taty Alvarado MD PhD Active FLOMAX 0.4 MG ORAL CAPSULE 1 Daily TAMSULOSIN HCL 62132584413 Active Marianela Juarze Active DILANTIN 100 MG ORAL CAPSULE Take one by mouth daily PHENYTOIN SODIUM EXTENDED 85824984522 No Longer Active Marianela Juarez Active DEPAKOTE SPRINKLES 125 MG ORAL CAPSULE DELAYED RELEASE SPRINKLE 4 capsules by mouth twice daily DIVALPROEX SODIUM 77934456678 No Longer Active Marianelachandrika Juarez Active LAMICTAL 200 MG ORAL TABLET 1 BY MOUTH TWICE A DAY LAMOTRIGINE 51649849894 Active Marianelachandrika Juarez Active LAMICTAL 100 MG ORAL TABLET by mouth twice a day LAMOTRIGINE 21553924031 No Longer Active Marianelachandrika Juarez Active LAMICTAL 150 MG ORAL TABLET by mouth twice a day LAMOTRIGINE 14873739691 No Longer Active Marianela Juarez Active DILANTIN 100 MG ORAL CAPSULE Take three by mouth daily PHENYTOIN SODIUM EXTENDED 41580232197 No Longer Active Marianela Juarez Active SENOKOT 8.6 MG ORAL TABLET take at bedtime SENNOSIDES 97401936823 Active Pelon Quach MD Active LIPITOR 20 MG ORAL TABLET take at bedtime ATORVASTATIN CALCIUM 29293864639 Active Glenn Thornton MD Active LISINOPRIL 2.5 MG ORAL TABLET Take one by mouth daily LISINOPRIL 61512658925 Active Glenn Thornton MD Active TRENTAL 400 MG CR-TABS by mouth twice a day PENTOXIFYLLINE 86155886924 Active Glenn Thornton MD Active KLOR-CON 10 10 MEQ ORAL TABLET EXTENDED RELEASE Take one by mouth daily POTASSIUM CHLORIDE 77203152523 Active Glenn Thornton MD Active DILANTIN 100 MG ORAL CAPSULE Take three by mouth daily DILANTIN 100 MG ORAL CAPSULE 170189 PHENYTOIN SODIUM EXTENDED Inactive LAMICTAL 150 MG ORAL TABLET by mouth twice a day LAMICTAL 150 MG ORAL TABLET 312175 LAMOTRIGINE Inactive LAMICTAL 100 MG ORAL TABLET by mouth twice a day LAMICTAL 100 MG ORAL TABLET 629355 LAMOTRIGINE Inactive DEPAKOTE SPRINKLES 125 MG ORAL CAPSULE DELAYED RELEASE SPRINKLE 4 capsules by mouth twice daily DEPAKOTE SPRINKLES 125 MG ORAL CAPSULE DELAYED RELEASE SPRINKLE 2541325 DIVALPROEX SODIUM Inactive DILANTIN 100 MG ORAL CAPSULE Take one by mouth daily DILANTIN 100 MG ORAL CAPSULE 598290 PHENYTOIN SODIUM EXTENDED Inactive INVEGA 6 MG ORAL TABLET EXTENDED RELEASE 24 HOUR 1 TAB ONCE DAILY INVEGA 6 MG ORAL TABLET EXTENDED RELEASE 24 HOUR PALIPERIDONE Inactive TYLENOL 325 MG ORAL TABLET 1-2 pills by mouth every 6 hours if needed for pain /fever TYLENOL 325 MG ORAL TABLET 286655 ACETAMINOPHEN Inactive ZOFRAN 4 MG ORAL TABLET 1 po q6hr PRN Nausea ZOFRAN 4 MG ORAL TABLET 811131 ONDANSETRON HCL Inactive ADULT ASPIRIN EC LOW STRENGTH 81 MG ORAL TABLET DELAYED RELEASE Take one by mouth daily ADULT ASPIRIN EC LOW STRENGTH 81 MG ORAL TABLET DELAYED RELEASE 179729 ASPIRIN Inactive FUROSEMIDE 40 MG ORAL TABLET Take one by mouth daily FUROSEMIDE 40 MG ORAL TABLET 356351 FUROSEMIDE Inactive BACTRIM DS 800-160 MG ORAL TABLET 1 twice a day BACTRIM DS 800-160 MG ORAL TABLET 032902 SULFAMETHOXAZOLE-TRIMETHOPRIM Inactive IPRATROPIUM-ALBUTEROL 0.5-2.5 (3) MG/3ML INHALATION SOLUTION 1 neb treatment QID for cough Dx: J06.9 IPRATROPIUM-ALBUTEROL 0.5-2.5 ( 3) MG/3ML INHALATION SOLUTION 7029446 IPRATROPIUM-ALBUTEROL Inactive TYLENOL 8 HOUR 650 MG [...] BID 06/28 BACTROBAN 2 % EXTERNAL OINTMENT 577671 MUPIROCIN Inactive LAMICTAL 25 MG ORAL TABLET 2 tabs by mouth twice a day LAMICTAL 25 MG ORAL TABLET 340350 LAMOTRIGINE Inactive IPRATROPIUM-ALBUTEROL 0.5-2.5 (3) MG/3ML INHALATION SOLUTION 1 neb treatment four times daily, for cough IPRATROPIUM-ALBUTEROL 0.5- 2.5 (3) MG/3ML INHALATION SOLUTION 6613251 IPRATROPIUM-ALBUTEROL Inactive BACTRIM DS 800-160 MG ORAL TABLET 1 tab by mouth twice daily 2016 BACTRIM DS 800-160 MG ORAL TABLET 488778 TRIMETHOPRIM- SULFAMETHOXAZOLE Inactive Advance Directives Directive Description Start Date DURABLE POWER OF SPECIALIST WOUND CARE FOR HEALTHCARE PERMISSION TO SHARE ADVANCED DIRECTIVE [...] Panel - Chemistry sodium, serum 127 mmol/L 403-683 4315/07/28 potassium, serum 5.3 mmol/L 3.5-5.2 chloride, serum 92 mmol/L 98-107 carbon dioxide, venous blood 32.4 mmol/L 21.0-32.0 blood glucose 182 mg/dL 65-110 calcium, serum 9.4 mg/dL 8.5-10.1 urea nitrogen, blood 14 mg/dL 7-18 creatinine, serum 0.94 mg/dL 0.60-1.30 Lab Report: CBC, Comp. Metabolic Panel - Chemistry sodium, serum 129 mmol/L 376-421 2545/07/12 carbon dioxide, venous blood 27.8 mmol/L 21.0-32.0 [...] mg/dL Encounters Code Encounter Date Provider Facility CPT-98656 Level 4 Est. Patient 14:46:38 CDT Pelon Quach MD [facility] CPT-32346 Level 4 Est. Patient 08:43:11 CDT Pelon Quach MD [facility] CPT-42404 Level 4 Est. Patient 14:27:30 CDT Pelon Quach MD [facility] CPT-50169 Level 3 Est. Patient 10:32:17 CDT Jaycee Garcia [facility] CPT-95520 Level 3 Est. Patient 10:15:07 CDT Pelon Quach MD [facility] CPT-53699 Level 4 Est. Patient 09:30:54 CDT Pelon Quach MD [facility] CPT-63300 Level 4 Est. Patient 14:34:25 CDT Pelon Quach MD [facility] CPT-83440 Level 3 Est. Patient 11:51:35 LUMBER MARKER Rick Henson DO [facility] CPT-36573 Level 3 Est. Patient 12:13:33 LUMBER MARKER Erik Baptiste MD [facility] CPT-68643 Level 3 Est. Patient 09:40:44 LUMBER MARKER Jaycee Garcia [facility] CPT-73224 Level 3 Est. Patient 09:36:32 LUMBER MARKER Jaycee Garcia [facility] CPT-68322 Level 4 Est. Patient 16:57:02 LUMBER MARKER Pelon Quach MD [facility]-82685 Level 4 Est. Patient 22:19:34 CDT Pelon Quach MD [facility]-58575 Level 3 Est. Patient 00:34:41 CDT Pelon Quach MD [facility]-10145 Level 4 Est. Patient 11:19:14 CDT Pelon Quach MD [facility]-50424 Level 4 Est. Patient 16:43:30 LUMBER MARKER Pelon Quach MD [facility]-60314 Level 4 Est. Patient 12:42:18 CDT Pelon Quach MD [facility]-74809 Level 4 Est. Patient 11:52:20 CDT Pelon Quach MD [facility]-76976 Level 4 Est. Patient 13:59:46 CDT Pelon Quach MD [facility]-67340 Level 4 Est. Patient 15:10:48 CDT Pelon Quach MD [facility]-96985 Level 4 Est. Patient 17:13:06 CDT Pelon Quach MD [facility]-52192 Level 4 Est. Patient 18:47:47 CDT Pelon Quach MD [facility]-51684 Level 3 Est. Patient 21:01:27 CDT Pelon Quach MD [facility] CPT-27014 Level 3 Est. Patient 14:07:03 CDT Taty Alvarado MD PhD [facility] CPT-16299 Level 3 New Patient 21:39:52 LUMBER MARKER Pelon Quach MD [facility]-15301 Level 3 Est. Patient 14:28:44 CDT Glenn Thornton MD [facility]-75943 Level 3 Est. Patient 16:35:00 CDT Glenn Thornton MD [facility] CPT-27940 Level 4 New Patient 17:06:27 CDT Glenn Thornton MD [facility] Procedures Code Procedure Name Date Entry Date Standard Description CPT-G0438 Initial Annual Wellness Exam 09:30:54 CDT CPT-22630 Prevnar 13 Intramuscular Suspension 14:34:25 CDT 12/27 CPT-92611 Chest 2V Frontal and Lat - XRAY USE ONLY 11:56:13 LUMBER MARKER CPT-73595 Cystoscopy 14:28:44 CDT CPT-23165 Bladder Scan 14:28:44 CDT CPT-23989 Indwelling Cath Change 17:06:27 CDT CPT-29127 Cystoscopy 17:06:27 CDT
--- OUTSIDE RECORDS SUMMARY | 2018-06-22 13:16 | XMS REPORT | Clinical Summary ---
Author Author Admin, ONESIMO Organization [facility] [employer] Address Unknown Phone Unavailable Allergies, Adverse Reactions, [...] TABS 1 twice a day SULFAMETHOXAZOLE- TRIMETHOPRIM 00887703323 Active Erik Baptiste MD Active IPRATROPIUM-ALBUTEROL 0.5-2.5 (3) MG/3ML INH SOLN 1 neb treatment QID for cough Dx: J06.9 IPRATROPIUM-ALBUTEROL 32064852620 Active Jaycee Garcia APRN Active IPRATROPIUM-ALBUTEROL 0.5-2.5 (3) MG/3ML SOLN 1 neb treatment four times daily , for cough IPRATROPIUM-ALBUTEROL 38336638349 No Longer Active Jaycee Garcia APRN Active TYLENOL 8 HOUR 650 MG ORAL CR-TABS Take 1 tab po up to 3 times daily as needed ACETAMINOPHEN 94661372568 Active Jaycee Jose [employer] PROFESSIONAL Active FUROSEMIDE 40 MG TABS Take one by mouth daily FUROSEMIDE 12808385602 No Longer Active Jaycee Garcia VICTORINO Active LANTUS 100 UNIT/ML SC SOLN 20 SUBQ AT HS INSULIN GLARGINE 57568282839 Active Jaycee Jose HEAD [employer]ENNIS PROFESSIONAL Active LAMICTAL 25 MG ORAL TABS 2 tabs po BID for convulsions LAMOTRIGINE 75404659596 Active Jacyee Garcia VICTORINO Active INVEGA 6 MG ORAL [id number] 1 po daily for Schizophrenia PALIPERIDONE 83886953734 Active Jaycee Garcia VICTORINO Active LASIX 20 MG TAB 1 tablet by mouth every morning for edema FUROSEMIDE 21409698162 Active Jayceehugo Garcia APRN Active BUSPIRONE HCL 10 MG TABS 1 tab by mouth BID BUSPIRONE HCL 63380059261 Active Jaycee Garcia VICTORINO Active NOVOLOG 100 UNIT/ML SC SOLN 10 UNITS BEFORE SUPPER INSULIN ASPART 78272059303 Active Jaycee Garcia VICTORINO Active NOVOLOG 100 UNIT/ML SC SOLN 10 UNITS BID BEFORE BREAKFAST AND LUNCH INSULIN ASPART 78291675280 Active Jaycee Garcia VICTORINO Active LAMICTAL 25 MG TABS 2 tabs by mouth twice a day LAMOTRIGINE 89508585007 Active Pelon Quach MD Active ADULT ASPIRIN EC LOW STRENGTH 81 MG TBEC Take one by mouth daily ASPIRIN 34854623233 No Longer Active Pelon Quach MD Active ASPIRIN 81 MG ORAL TABS 1 po qd ASPIRIN 19909132618 Active Pelon Quach MD Active ZOFRAN 4 MG TABS 1 po q6hr PRN Nausea ONDANSETRON HCL 23548059583 No Longer Active Pelon Quach MD Active TYLENOL 325 MG TAB 1-2 pills by mouth every 6 hours if needed for pain/fever ACETAMINOPHEN 53159037142 No Longer Active Pelon Quach MD Active INVEGA 6 MG ORAL [id number] 1 TAB ONCE DAILY PALIPERIDONE 47245678996 No Longer Active Carly Suggs Active TEGRETOL 200 MG TABS by mouth twice a day CARBAMAZEPINE 07532632363 Active Taty Alvarado MD PhD Active FLOMAX 0.4 MG CAPS 1 Daily TAMSULOSIN HCL 30545226509 Active Marianelachandrika Juarez Active DILANTIN 100 MG CAPS Take one by mouth daily PHENYTOIN SODIUM EXTENDED 99858087373 No Longer Active Marianelachandrika Juarez Active DEPAKOTE SPRINKLES 125 MG CPSP 4 capsules by mouth twice daily DIVALPROEX SODIUM 97079743661 No Longer Active Marianelachandrika Juarez Active LAMICTAL 200 MG ORAL TABS 1 BY MOUTH TWICE A DAY LAMOTRIGINE 75935792556 Active Marianelachandrika Juarez Active LAMICTAL 100 MG TABS by mouth twice a day LAMOTRIGINE 12951585202 No Longer Active Marianelachandrika Juarez Active LAMICTAL 150 MG TABS by mouth twice a day LAMOTRIGINE 84656418677 No Longer Active Marianelachandrika Juarez Active DILANTIN 100 MG CAPS Take three by mouth daily PHENYTOIN SODIUM EXTENDED 52841752923 No Longer Active Marianela Juarez Active SENOKOT 8.6 MG TABS take at bedtime SENNOSIDES 21151223885 Active Glenn Thornton MD Active LIPITOR 20 MG TABS take at bedtime ATORVASTATIN CALCIUM 00117961750 Active Glenn Thornton MD Active LISINOPRIL 2.5 MG TABS Take one by mouth daily LISINOPRIL 61185460398 Active Glenn Thornton MD Active TRENTAL 400 MG CR-TABS by mouth twice a day PENTOXIFYLLINE 35544640682 Active Glenn Thornton MD Active KLOR-CON 10 10 MEQ CR-TABS Take one by mouth daily POTASSIUM CHLORIDE 70930804566 Active Glenn Thornton MD Active DILANTIN 100 MG CAPS Take three by mouth daily DILANTIN 100 MG CAPS 223894 PHENYTOIN SODIUM EXTENDED Inactive LAMICTAL 150 MG TABS by mouth twice a day LAMICTAL 150 MG TABS 19831025 LAMOTRIGINE Inactive LAMICTAL 100 MG TABS by mouth twice a day LAMICTAL 100 MG TABS 19831024 LAMOTRIGINE Inactive DEPAKOTE SPRINKLES 125 MG CPSP 4 capsules by mouth twice daily DEPAKOTE SPRINKLES 125 MG CPSP 4012195 DIVALPROEX SODIUM Inactive DILANTIN 100 MG CAPS Take one by mouth daily DILANTIN 100 MG CAPS 406382 PHENYTOIN SODIUM EXTENDED Inactive INVEGA 6 MG ORAL [id number] 1 TAB ONCE DAILY INVEGA 6 MG ORAL [id number] PALIPERIDONE Inactive TYLENOL 325 MG TAB 1-2 pills by mouth every 6 hours if needed for pain/fever TYLENOL 325 MG TAB 140878 ACETAMINOPHEN Inactive ZOFRAN 4 MG TABS 1 po q6hr PRN Nausea ZOFRAN 4 MG TABS 027208 ONDANSETRON HCL Inactive ADULT ASPIRIN EC LOW STRENGTH 81 MG TBEC Take one by mouth daily ADULT ASPIRIN EC LOW STRENGTH 81 MG TBEC 352234 ASPIRIN Inactive FUROSEMIDE 40 MG TABS Take one by mouth daily FUROSEMIDE 40 MG TABS 305735 FUROSEMIDE Inactive IPRATROPIUM-ALBUTEROL 0.5-2.5 (3) MG/3ML SOLN 1 neb treatment four times daily , for cough IPRATROPIUM-ALBUTEROL 0.5-2.5 (3) MG/3ML SOLN 6672674 IPRATROPIUM-ALBUTEROL Inactive Advance Directives Directive Description Start Date DURABLE POWER OF DRY WALL 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 Patient 12:13:33 SECTION LEADER SCREEN PRINTING Erik Baptiste [facility] CPT-61058 Level 3 Est. Patient 09:40:44 SECTION LEADER SCREEN PRINTING Jaycee Garcia [facility] CPT-08820 Level 3 Est. Patient 09:36:32 SECTION LEADER SCREEN PRINTING Jaycee Garcia [facility] CPT-75035 Level 4 Est. Patient 16:57:02 SECTION LEADER SCREEN PRINTING Pelon Quach MD [facility] CPT-00668 Level 4 Est. Patient 22:19:34 CDT Pelon Quach MD [facility] CPT-61243 Level 3 Est. Patient 00:34:41 CDT Pelon Quach MD [facility] CPT-00007 Level 4 Est. Patient 11:19:14 CDT Pelon Quach MD [facility] CPT-78288 Level 4 Est. Patient 16:43:30 SECTION LEADER SCREEN PRINTING Pelon Quach MD [facility] CPT-34588 Level 4 Est. Patient 12:42:18 CDT Pelon Quach MD [facility] CPT-09824 Level 4 Est. Patient 11:52:20 CDT Pelon Quach MD [facility] CPT-75253 Level 4 Est. Patient 13:59:46 CDT Pelon Quach MD [facility] CPT-27643 Level 4 Est. Patient 15:10:48 CDT Pelon Quach MD [facility] CPT-30428 Level 4 Est. Patient 17:13:06 CDT Pelon Quach MD [facility] CPT-90559 Level 4 Est. Patient 18:47:47 CDT Pelon Quach MD [facility] CPT-14509 Level 3 Est. Patient 21:01:27 CDT Pelon Quach MD [facility] CPT-33265 Level 3 Est. Patient 14:07:03 CDT Taty Alvarado MD PhD [facility] CPT-16371 Level 3 New Patient 21:39:52 SECTION LEADER SCREEN PRINTING Pelon Quach MD [facility] CPT-17612 Level 3 Est. Patient 14:28:44 CDT Glenn Thornton MD [facility] CPT-91374 Level 3 Est. Patient 16:35:00 CDT Glenn Thornton MD [facility] CPT-31604 Level 4 New Patient 17:06:27 CDT Glenn Thornton MD [facility] Procedures Code Procedure Name Date Entry Date Standard Description CPT-28875 Chest 2V Frontal and Lat - XRAY USE ONLY 11:56:13 SECTION LEADER SCREEN PRINTING CPT-94708 Cystoscopy 14:28:44 CDT CPT-06068 Bladder Scan 14:28:44 CDT CPT-48006 Indw[address] Cath Change 17:06:27 CDT CPT-19319 Cystoscopy 17:06:27 CDT
--- OUTSIDE RECORDS SUMMARY | 2018-06-22 13:16 | XMS REPORT | Clinical Summary ---
Author Author Admin, ONESIMO Organization [facility] Address Unknown Phone Unavailable Allergies, Adverse Reactions, [...] TABS 1 twice a day SULFAMETHOXAZOLE- TRIMETHOPRIM 14800714297 Active Erik Baptiste MD Active IPRATROPIUM-ALBUTEROL 0.5-2.5 (3) MG/3ML INH SOLN 1 neb treatment QID for cough Dx: J06.9 IPRATROPIUM-ALBUTEROL 82027865807 Active Jaycee Garcia APRN Active IPRATROPIUM-ALBUTEROL 0.5-2.5 (3) MG/3ML SOLN 1 neb treatment four times daily , for cough IPRATROPIUM-ALBUTEROL 27897881933 No Longer Active Jaycee Garcia APRN Active TYLENOL 8 HOUR 650 MG ORAL CR-TABS Take 1 tab po up to 3 times daily as needed ACETAMINOPHEN 08443610719 Active Jaycee Jose BATH MIX OPERATOR Active FUROSEMIDE 40 MG TABS Take one by mouth daily FUROSEMIDE 03024046945 No Longer Active Jaycee Garcia VICTORINO Active LANTUS 100 UNIT/ML SC SOLN 20 SUBQ AT HS INSULIN GLARGINE 17335463708 Active Jaycee Joes BATH MIX OPERATOR Active LAMICTAL 25 MG ORAL TABS 2 tabs po BID for convulsions LAMOTRIGINE 02812169296 Active Jaycee Garcia VICTORINO Active INVEGA 6 MG ORAL [id number] 1 po daily for Schizophrenia PALIPERIDONE 72727550771 Active Jaycee Garcia VICTORINO Active LASIX 20 MG TAB 1 tablet by mouth every morning for edema FUROSEMIDE 77495095195 Active Jayceehugo Garcia APRN Active BUSPIRONE HCL 10 MG TABS 1 tab by mouth BID BUSPIRONE HCL 72160169364 Active Jaycee Garcia VICTORINO Active NOVOLOG 100 UNIT/ML SC SOLN 10 UNITS BEFORE SUPPER INSULIN ASPART 04582748300 Active Jaycee Garcia VICTORINO Active NOVOLOG 100 UNIT/ML SC SOLN 10 UNITS BID BEFORE BREAKFAST AND LUNCH INSULIN ASPART 48017439836 Active Jaycee Garcia VICTORINO Active LAMICTAL 25 MG TABS 2 tabs by mouth twice a day LAMOTRIGINE 90048034416 Active Pelon Quach MD Active ADULT ASPIRIN EC LOW STRENGTH 81 MG TBEC Take one by mouth daily ASPIRIN 14120030727 No Longer Active Pelon Quach MD Active ASPIRIN 81 MG ORAL TABS 1 po qd ASPIRIN 88710094725 Active Pelon Quach MD Active ZOFRAN 4 MG TABS 1 po q6hr PRN Nausea ONDANSETRON HCL 85227480593 No Longer Active Pelon Quach MD Active TYLENOL 325 MG TAB 1-2 pills by mouth every 6 hours if needed for pain/fever ACETAMINOPHEN 95403383812 No Longer Active Pelon Quach MD Active INVEGA 6 MG ORAL [id number] 1 TAB ONCE DAILY PALIPERIDONE 27804148724 No Longer Active Carly Suggs Active TEGRETOL 200 MG TABS by mouth twice a day CARBAMAZEPINE 06596928139 Active Taty Alvarado MD PhD Active FLOMAX 0.4 MG CAPS 1 Daily TAMSULOSIN HCL 72655576474 Active Marianelachandrika Juarez Active DILANTIN 100 MG CAPS Take one by mouth daily PHENYTOIN SODIUM EXTENDED 03712936267 No Longer Active Marianelachandrika Juarez Active DEPAKOTE SPRINKLES 125 MG CPSP 4 capsules by mouth twice daily DIVALPROEX SODIUM 75239010103 No Longer Active Marianelachandrika Juarez Active LAMICTAL 200 MG ORAL TABS 1 BY MOUTH TWICE A DAY LAMOTRIGINE 08079654362 Active Marianelachandrika Juarez Active LAMICTAL 100 MG TABS by mouth twice a day LAMOTRIGINE 50923853842 No Longer Active Marianelachandrika Juarez Active LAMICTAL 150 MG TABS by mouth twice a day LAMOTRIGINE 50034770656 No Longer Active Marianelachandrika Juarez Active DILANTIN 100 MG CAPS Take three by mouth daily PHENYTOIN SODIUM EXTENDED 93563381237 No Longer Active Marianela Juarez Active SENOKOT 8.6 MG TABS take at bedtime SENNOSIDES 28631585760 Active Glenn Thornton MD Active LIPITOR 20 MG TABS take at bedtime ATORVASTATIN CALCIUM 85653554377 Active Glenn Thornton MD Active LISINOPRIL 2.5 MG TABS Take one by mouth daily LISINOPRIL 54391909392 Active Glenn Thornton MD Active TRENTAL 400 MG CR-TABS by mouth twice a day PENTOXIFYLLINE 44867384108 Active Glenn Thornton MD Active KLOR-CON 10 10 MEQ CR-TABS Take one by mouth daily POTASSIUM CHLORIDE 46336182692 Active Glenn Thornton MD Active DILANTIN 100 MG CAPS Take three by mouth daily DILANTIN 100 MG CAPS 030260 PHENYTOIN SODIUM EXTENDED Inactive LAMICTAL 150 MG TABS by mouth twice a day LAMICTAL 150 MG TABS 19831025 LAMOTRIGINE Inactive LAMICTAL 100 MG TABS by mouth twice a day LAMICTAL 100 MG TABS 19831024 LAMOTRIGINE Inactive DEPAKOTE SPRINKLES 125 MG CPSP 4 capsules by mouth twice daily DEPAKOTE SPRINKLES 125 MG CPSP 3189243 DIVALPROEX SODIUM Inactive DILANTIN 100 MG CAPS Take one by mouth daily DILANTIN 100 MG CAPS 707894 PHENYTOIN SODIUM EXTENDED Inactive INVEGA 6 MG ORAL [id number] 1 TAB ONCE DAILY INVEGA 6 MG ORAL [id number] PALIPERIDONE Inactive TYLENOL 325 MG TAB 1-2 pills by mouth every 6 hours if needed for pain/fever TYLENOL 325 MG TAB 128629 ACETAMINOPHEN Inactive ZOFRAN 4 MG TABS 1 po q6hr PRN Nausea ZOFRAN 4 MG TABS 704027 ONDANSETRON HCL Inactive ADULT ASPIRIN EC LOW STRENGTH 81 MG TBEC Take one by mouth daily ADULT ASPIRIN EC LOW STRENGTH 81 MG TBEC 071746 ASPIRIN Inactive FUROSEMIDE 40 MG TABS Take one by mouth daily FUROSEMIDE 40 MG TABS 412435 FUROSEMIDE Inactive IPRATROPIUM-ALBUTEROL 0.5-2.5 (3) MG/3ML SOLN 1 neb treatment four times daily , for cough IPRATROPIUM-ALBUTEROL 0.5-2.5 (3) MG/3ML SOLN 2822876 IPRATROPIUM-ALBUTEROL Inactive Advance Directives Directive Description Start Date DURABLE POWER OF AIRCRAFT SYSTEMS REPAIRER FOR HEALTHCARE PERMISSION TO SHARE ADVANCED DIRECTIVE Vital Signs Date Name Value Unit Range Description blood pressure, diastolic - 8462-4 71 mm[Hg] BP adly blood pressure, systolic - 8480-6 137 mm[Hg] [...] pressure, diastolic - 8462-4 77 mm[Hg] BP adly blood pressure, systolic - 8480-6 162 mm[Hg] [...] mg/dL Encounters Code Encounter Date Provider Facility CPT-68120 Level 3 Est. 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 Patient 12:13:33 WALLCOVERING TEXTURER Erik Baptiste MD [facility] CPT-70419 Level 3 Est. Patient 09:40:44 WALLCOVERING TEXTURER Jaycee Garcia [facility][note 3] CPT-29257 Level 3 Est. Patient 09:36:32 WALLCOVERING TEXTURER Jaycee Garcia [facility][note 3] CPT-76250 Level 4 Est. Patient 16:57:02 WALLCOVERING TEXTURER Pelon Quach MD [facility] CPT-08281 Level 4 Est. Patient 22:19:34 CDT Pelon Quach MD [facility] CPT-24554 Level 3 Est. Patient 00:34:41 CDT Pelon Quach MD [facility] CPT-62709 Level 4 Est. Patient 11:19:14 CDT Pelon Quach MD [facility] CPT-66658 Level 4 Est. Patient 16:43:30 WALLCOVERING TEXTURER Pelon Quach MD [facility] CPT-60637 Level 4 Est. Patient 12:42:18 CDT Pelon Quach MD [facility] CPT-39766 Level 4 Est. Patient 11:52:20 CDT Pelon Quach MD [facility] CPT-36571 Level 4 Est. Patient 13:59:46 CDT Pelon Quach MD [facility] CPT-98346 Level 4 Est. Patient 15:10:48 CDT Pelon Quach MD [facility] CPT-31835 Level 4 Est. Patient 17:13:06 CDT Pelon Quach MD [facility] CPT-72676 Level 4 Est. Patient 18:47:47 CDT Pelon Quach MD [facility] CPT-39066 Level 3 Est. Patient 21:01:27 CDT Pelon Quach MD [facility] CPT-68787 Level 3 Est. Patient 14:07:03 CDT Taty Alvarado MD PhD [facility] CPT-27980 Level 3 New Patient 21:39:52 WALLCOVERING TEXTURER Pelon Quach MD [facility] CPT-99917 Level 3 Est. Patient 14:28:44 CDT Glenn Thornton MD [facility] CPT-45785 Level 3 Est. Patient 16:35:00 CDT Glenn Thornton MD [facility] CPT-79593 Level 4 New Patient 17:06:27 CDT Glenn Thornton MD [facility] [place] Procedures Code Procedure Name Date Entry Date Standard Description CPT-56450 Chest 2V Frontal and Lat - XRAY USE ONLY 11:56:13 WALLCOVERING TEXTURER CPT-06271 Cystoscopy 14:28:44 CDT CPT-93157 Bladder Scan 14:28:44 CDT CPT-43494 Indwelling Cath Change 17:06:27 CDT CPT-71748 Cystoscopy 17:06:27 CDT
--- OUTSIDE RECORDS SUMMARY | 2018-06-22 13:17 | XMS REPORT | Clinical Summary ---
Author Author Admin, ONESIMO Organization [facility] [place] Address Unknown Phone Unavailable Allergies, Adverse Reactions, [...] tabs by mouth twice a day LAMOTRIGINE 06518460862 Active Pelon Quach MD Active ADULT ASPIRIN EC LOW STRENGTH 81 MG TBEC Take one by mouth daily ASPIRIN 09430453066 No Longer Active Pelon Quach MD Active TYLENOL 8 HOUR 650 MG ORAL CR-TABS Take 1 tab po QID x 7 days ACETAMINOPHEN 50992630224 Active Fanta Rodas MA Active INVEGA [id number] 3MG BY MOUTH ONE TIME DAILY PALIPERIDONE CU15L-[id number] 12213681617 Active Pelon Quach MD Active ASPIRIN 81 MG ORAL TABS 1 po qd ASPIRIN 22634061610 Active Pelon Quach MD Active ZOFRAN 4 MG TABS 1 po q6hr PRN Nausea ONDANSETRON HCL 48007787025 No Longer Active Pelon Quach MD Active TYLENOL 325 MG TAB 1-2 pills by mouth every 6 hours if needed for pain/fever ACETAMINOPHEN 35205752351 No Longer Active Pelon Quach MD Active INVEGA 6 MG ORAL [id number] 1 TAB ONCE DAILY PALIPERIDONE 89702261407 No Longer Active Carly Suggs Active LANTUS 100 UNIT/ML SC SOLN 18 SUBQ AT HS INSULIN GLARGINE 10320362029 Active Pelon Quach MD Active TEGRETOL 200 MG TABS by mouth twice a day CARBAMAZEPINE 57065560536 Active Taty Alvarado MD PhD Active NOVOLOG 100 UNIT/ML SC SOLN 7 UNITS BEFORE SUPPER INSULIN ASPART 53223294300 Active Marianela Juarez Active NOVOLOG 100 UNIT/ML SC SOLN 7 UNITS BID BEFORE BREAKFAST AND LUNCH INSULIN ASPART 72622006409 Active Marianela Juarez Active FLOMAX 0.4 MG CAPS 1 Daily TAMSULOSIN HCL 06861939582 Active Marianela Juarez Active DILANTIN 100 MG CAPS Take one by mouth daily PHENYTOIN SODIUM EXTENDED 54205673246 No Longer Active Marianela Juarez Active DEPAKOTE SPRINKLES 125 MG CPSP 4 capsules by mouth twice daily DIVALPROEX SODIUM 95669386213 No Longer Active Marianela Juarez Active LAMICTAL 200 MG ORAL TABS 1 BY MOUTH TWICE A DAY LAMOTRIGINE 90949646724 Active Marianela Juarez Active LAMICTAL 100 MG TABS by mouth twice a day LAMOTRIGINE 60930759946 No Longer Active Marianela Juarez Active LAMICTAL 150 MG TABS by mouth twice a day LAMOTRIGINE 00156270382 No Longer Active Marianela Juarez Active DILANTIN 100 MG CAPS Take three by mouth daily PHENYTOIN SODIUM EXTENDED 34968752320 No Longer Active Marianela Juarez Active SENOKOT 8.6 MG TABS take at bedtime SENNOSIDES 61847151887 Active Glenn Thornton MD Active LIPITOR 20 MG TABS take at bedtime ATORVASTATIN CALCIUM 07069548339 Active Glenn Thornton MD Active LISINOPRIL 2.5 MG TABS Take one by mouth daily LISINOPRIL 91421739146 Active Glenn Thornton MD Active TRENTAL 400 MG CR-TABS by mouth twice a day PENTOXIFYLLINE 56923052868 Active Glenn Thornton MD Active BUSPIRONE HCL 10 MG TABS by mouth twice a day BUSPIRONE HCL 81770074512 Active Glenn Thornton MD Active FUROSEMIDE 40 MG TABS Take one by mouth daily FUROSEMIDE 77162625887 Active Glenn Thornton MD Active KLOR-CON 10 10 MEQ CR-TABS Take one by mouth daily POTASSIUM CHLORIDE 71601193355 Active Glenn Thornton MD Active DILANTIN 100 MG CAPS Take three by mouth daily DILANTIN 100 MG CAPS 805079 PHENYTOIN SODIUM EXTENDED Inactive LAMICTAL 150 MG TABS by mouth twice a day LAMICTAL 150 MG TABS 19831025 LAMOTRIGINE Inactive LAMICTAL 100 MG TABS by mouth twice a day LAMICTAL 100 MG TABS 19831024 LAMOTRIGINE Inactive DEPAKOTE SPRINKLES 125 MG CPSP 4 capsules by mouth twice daily DEPAKOTE SPRINKLES 125 MG CPSP 5015013 DIVALPROEX SODIUM Inactive DILANTIN 100 MG CAPS Take one by mouth daily DILANTIN 100 MG CAPS 038009 PHENYTOIN SODIUM EXTENDED Inactive INVEGA 6 MG ORAL [id number] 1 TAB ONCE DAILY INVEGA 6 MG ORAL [id number] PALIPERIDONE Inactive TYLENOL 325 MG TAB 1-2 pills by mouth every 6 hours if needed for pain/fever TYLENOL 325 MG TAB 151950 ACETAMINOPHEN Inactive ZOFRAN 4 MG TABS 1 po q6hr PRN Nausea ZOFRAN 4 MG TABS 838283 ONDANSETRON HCL Inactive ADULT ASPIRIN EC LOW STRENGTH 81 MG TBEC Take one by mouth daily ADULT ASPIRIN EC LOW STRENGTH 81 MG TBEC 617058 ASPIRIN Inactive Advance Directives Directive Description Start Date DURABLE POWER OF CERTIFIED MAINTENANCE WELDER FOR HEALTHCARE PERMISSION TO SHARE ADVANCED DIRECTIVE [...] mg/dL Encounters Code Encounter Date Provider Facility CPT-71389 Level 4 Est. 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 Patient 22:19:34 CDT Pelon Quach MD [facility] CPT-75133 Level 3 Est. Patient 00:34:41 CDT Pelon Quach MD [facility] CPT-33875 Level 4 Est. Patient 11:19:14 CDT Pelon Quach MD [facility] CPT-90466 Level 4 Est. Patient 16:43:30 WHEEL ASSEMBLER Pelon Quach MD [facility] CPT-24891 Level 4 Est. Patient 12:42:18 CDT Pelon Quach MD [facility] CPT-72392 Level 4 Est. Patient 11:52:20 CDT Pelon Quach MD [facility] CPT-12678 Level 4 Est. Patient 13:59:46 CDT Pelon Quach MD [facility] CPT-25823 Level 4 Est. Patient 15:10:48 CDT Pelon Quach MD [facility] CPT-95281 Level 4 Est. Patient 17:13:06 CDT Pelon Quach MD [facility] CPT-15934 Level 4 Est. Patient 18:47:47 CDT Pelon Quach MD [facility] CPT-80888 Level 3 Est. Patient 21:01:27 CDT Pelon Quach MD [facility] CPT-40697 Level 3 Est. Patient 14:07:03 CDT Taty Alvarado MD PhD [facility] CPT-81118 Level 3 New Patient 21:39:52 WHEEL ASSEMBLER Pelon Quach MD [facility] CPT-17962 Level 3 Est. Patient 14:28:44 CDT Glenn Thornton MD [facility] CPT-02303 Level 3 Est. Patient 16:35:00 CDT Glenn Thornton MD [facility] CPT-83100 Level 4 New Patient 17:06:27 CDT Glenn Thornton MD [facility] [place] Procedures Code Procedure Name Date Entry Date Standard Description CPT-56793 Cystoscopy 14:28:44 CDT CPT-92584 Bladder Scan 14:28:44 CDT CPT-26520 Indwelling Cath Change 17:06:27 CDT CPT-66680 Cystoscopy 17:06:27 CDT
--- OUTSIDE RECORDS SUMMARY | 2018-06-22 13:18 | XMS REPORT | Clinical Summary ---
Author Author Admin, ONESIMO Organization [facility] Address Unknown Phone Unavailable Allergies, Adverse Reactions, [...] 1 po q8hr PRN Congestion DIPHENHYDRAMINE HCL 38963065748 Active Pelon Quach MD Active ZOFRAN 4 MG ORAL TABLET 1 po q6hr PRN Nausea ONDANSETRON HCL 63109168027 Active Pelon Quach MD Active IMODIUM A-D 2 MG ORAL TABLET One QID prn diarrhea. No more than 4 tabs daily LOPERAMIDE HCL 26047019793 Active Pelon Quach MD Active TYLENOL 325 MG ORAL TABLET 2 tabs po prn for pain elevated temp ACETAMINOPHEN 74288470452 Active Pelon Quach MD Active MUCINEX D 60-600 MG ORAL TABLET EXTENDED RELEASE 12 HOUR 1 po BID PRN Congestion PSEUDOEPHEDRINE-GUAIFENESIN 21840953631 Active Pelon Quach MD Active IBUPROFEN 200 MG ORAL TABLET q 6hrs prn pain IBUPROFEN 63932445403 Active Pelon Quach MD Active LORATADINE 10 MG ORAL TABLET 1 tablet by mouth daily prn LORATADINE 64638109917 Active Pelon Quach MD Active BANOPHEN 25 MG ORAL TABLET 1 po every 6 hours PRN allergic reaction DIPHENHYDRAMINE HCL 21002163283 No Longer Active Pelon Quach MD Active EASY TOUCH ALCOHOL PREP MEDIUM 70 % PAD Use with each finger stick and insulin admin Dx: E11.9 ALCOHOL SWABS 87597459758 Active Jaycee Arell HEALTH SERVICES COORDINATOR Active HUMALOG KWIKPEN 100 UNIT/ML SUBCUTANEOUS SOLUTION PEN-INJECTOR inject 10 units subcutaneously before meals also sliding scale INSULIN LISPRO 45021559375 Active Jaycee Shan VITCORINO Active NOVOLOG 100 UNIT/ML SUBCUTANEOUS SOLUTION 10 UNITS BID BEFORE BREAKFAST AND LUNCH INSULIN ASPART 27116312302 No Longer Active NICOLETTE Hitchcock Active NOVOLOG 100 UNIT/ML SUBCUTANEOUS SOLUTION 10 UNITS BEFORE SUPPER INSULIN ASPART 41534065640 No Longer Active NICOLETTE Hitchcock Active INVEGA 6 MG ORAL TABLET EXTENDED RELEASE 24 HOUR 1 po daily for schizophrenia PALIPERIDONE 41623097843 Active Pelon Quach MD Active LAMICTAL 25 MG ORAL TABLET 2 tabs by mouth twice a day LAMOTRIGINE 85552618547 No Longer Active Pelon Quach MD Active BACTROBAN 2 % EXTERNAL OINTMENT Apply to affected area BID 06/28 MUPIROCIN 83242637137 No Longer Active Pelon Quach MD Active INVEGA 6 MG ORAL TABLET EXTENDED RELEASE 24 HOUR 1 po daily for Schizophrenia PALIPERIDONE 28507162868 No Longer Active Pelon Quach MD Active TYLENOL 8 HOUR 650 MG ORAL TABLET EXTENDED RELEASE Take 1 tab po up to 3 times daily as needed ACETAMINOPHEN 99008622686 No Longer Active Pleon Quach MD Active IPRATROPIUM-ALBUTEROL 0.5-2.5 (3) MG/3ML INHALATION SOLUTION 1 neb treatment QID for cough Dx: J06.9 IPRATROPIUM-ALBUTEROL 45223632499 No Longer Active Pelon Quach MD Active BACTRIM DS 800-160 MG ORAL TABLET 1 tab by mouth twice daily 2016 TRIMETHOPRIM-SULFAMETHOXAZOLE 10257255944 No Longer Active Pelon Quach MD Active BACTRIM DS 800-160 MG ORAL TABLET 1 twice a day SULFAMETHOXAZOLE-TRIMETHOPRIM 22212571132 No Longer Active Pelon Quach MD Active IPRATROPIUM-ALBUTEROL 0.5-2.5 (3) MG/3ML INHALATION SOLUTION 1 neb treatment four times daily, for cough IPRATROPIUM-ALBUTEROL 27047563280 No Longer Active Jaycee Arell HEALTH SERVICES COORDINATOR Active FUROSEMIDE 40 MG ORAL TABLET Take one by mouth daily FUROSEMIDE 52022649313 No Longer Active Jaycee Arell HEALTH SERVICES COORDINATOR Active LANTUS 100 UNIT/ML SUBCUTANEOUS SOLUTION 20 SUBQ AT HS INSULIN GLARGINE 03417946855 Active Jaycee Arell HEALTH SERVICES COORDINATOR Active LAMICTAL 25 MG ORAL TABLET 2 tabs po BID for convulsions LAMOTRIGINE 02704972212 Active Jaycee Arell HEALTH SERVICES COORDINATOR Active LASIX 20 MG ORAL TABLET 1 tablet by mouth every morning for edema FUROSEMIDE 96812342562 Active Jaycee Arell HEALTH SERVICES COORDINATOR Active BUSPIRONE HCL 10 MG ORAL TABLET 1 tab by mouth BID BUSPIRONE HCL 57204607786 Active Jaycee Juan Davidll HEALTH SERVICES COORDINATOR Active ADULT ASPIRIN EC LOW STRENGTH 81 MG ORAL TABLET DELAYED RELEASE Take one by mouth daily ASPIRIN 91785018380 No Longer Active Pelon Quach MD Active ASPIRIN 81 MG ORAL TABLET 1 po qd ASPIRIN 95298951692 Active Pelon Quach MD Active ZOFRAN 4 MG ORAL TABLET 1 po q6hr PRN Nausea ONDANSETRON HCL 27584160043 No Longer Active Pelon Quach MD Active TYLENOL 325 MG ORAL TABLET 1-2 pills by mouth every 6 hours if needed for pain /fever ACETAMINOPHEN 38846699361 No Longer Active Pelon Quach MD Active INVEGA 6 MG ORAL TABLET EXTENDED RELEASE 24 HOUR 1 TAB ONCE DAILY PALIPERIDONE 28028419134 No Longer Active Carly Suggs Active TEGRETOL 200 MG ORAL TABLET by mouth twice a day CARBAMAZEPINE 42899733806 Active Taty Alvarado MD PhD Active FLOMAX 0.4 MG ORAL CAPSULE 1 Daily TAMSULOSIN HCL 09858858600 Active Marianela Juarez Active DILANTIN 100 MG ORAL CAPSULE Take one by mouth daily PHENYTOIN SODIUM EXTENDED 40178146720 No Longer Active Marianela Juarez Active DEPAKOTE SPRINKLES 125 MG ORAL CAPSULE DELAYED RELEASE SPRINKLE 4 capsules by mouth twice daily DIVALPROEX SODIUM 05028496602 No Longer Active Marianelachandrika Juarez Active LAMICTAL 200 MG ORAL TABLET 1 BY MOUTH TWICE A DAY LAMOTRIGINE 65185133622 Active Marianela Juarez Active LAMICTAL 100 MG ORAL TABLET by mouth twice a day LAMOTRIGINE 75472326231 No Longer Active Marianelachandrika Juarez Active LAMICTAL 150 MG ORAL TABLET by mouth twice a day LAMOTRIGINE 31012508521 No Longer Active Marianelachandrika Juarez Active DILANTIN 100 MG ORAL CAPSULE Take three by mouth daily PHENYTOIN SODIUM EXTENDED 68162872779 No Longer Active Marianela Juarez Active SENOKOT 8.6 MG ORAL TABLET take at bedtime SENNOSIDES 61022874591 Active Pelon Quach MD Active LIPITOR 20 MG ORAL TABLET take at bedtime ATORVASTATIN CALCIUM 95160832787 Active Glenn Thornton MD Active LISINOPRIL 2.5 MG ORAL TABLET Take one by mouth daily LISINOPRIL 88936035229 Active Glenn Thornton MD Active TRENTAL 400 MG CR-TABS by mouth twice a day PENTOXIFYLLINE 17905129934 Active Glenn Thornton MD Active KLOR-CON 10 10 MEQ ORAL TABLET EXTENDED RELEASE Take one by mouth daily POTASSIUM CHLORIDE 65029650980 Active Glenn Thornton MD Active DILANTIN 100 MG ORAL CAPSULE Take three by mouth daily DILANTIN 100 MG ORAL CAPSULE 542441 PHENYTOIN SODIUM EXTENDED Inactive LAMICTAL 150 MG ORAL TABLET by mouth twice a day LAMICTAL 150 MG ORAL TABLET 806747 LAMOTRIGINE Inactive LAMICTAL 100 MG ORAL TABLET by mouth twice a day LAMICTAL 100 MG ORAL TABLET 098067 LAMOTRIGINE Inactive DEPAKOTE SPRINKLES 125 MG ORAL CAPSULE DELAYED RELEASE SPRINKLE 4 capsules by mouth twice daily DEPAKOTE SPRINKLES 125 MG ORAL CAPSULE DELAYED RELEASE SPRINKLE 3222950 DIVALPROEX SODIUM Inactive DILANTIN 100 MG ORAL CAPSULE Take one by mouth daily DILANTIN 100 MG ORAL CAPSULE 354726 PHENYTOIN SODIUM EXTENDED Inactive INVEGA 6 MG ORAL TABLET EXTENDED RELEASE 24 HOUR 1 TAB ONCE DAILY INVEGA 6 MG ORAL TABLET EXTENDED RELEASE 24 HOUR PALIPERIDONE Inactive TYLENOL 325 MG ORAL TABLET 1-2 pills by mouth every 6 hours if needed for pain /fever TYLENOL 325 MG ORAL TABLET 801845 ACETAMINOPHEN Inactive ZOFRAN 4 MG ORAL TABLET 1 po q6hr PRN Nausea ZOFRAN 4 MG ORAL TABLET 265296 ONDANSETRON HCL Inactive ADULT ASPIRIN EC LOW STRENGTH 81 MG ORAL TABLET DELAYED RELEASE Take one by mouth daily ADULT ASPIRIN EC LOW STRENGTH 81 MG ORAL TABLET DELAYED RELEASE 123148 ASPIRIN Inactive FUROSEMIDE 40 MG ORAL TABLET Take one by mouth daily FUROSEMIDE 40 MG ORAL TABLET 219034 FUROSEMIDE Inactive BACTRIM DS 800-160 MG ORAL TABLET 1 twice a day BACTRIM DS 800-160 MG ORAL TABLET 982320 SULFAMETHOXAZOLE-TRIMETHOPRIM Inactive IPRATROPIUM-ALBUTEROL 0.5-2.5 (3) MG/3ML INHALATION SOLUTION 1 neb treatment QID for cough Dx: J06.9 IPRATROPIUM-ALBUTEROL 0.5-2.5 ( 3) MG/3ML INHALATION SOLUTION 4962872 IPRATROPIUM-ALBUTEROL Inactive TYLENOL 8 HOUR 650 MG [...] BID 06/28 BACTROBAN 2 % EXTERNAL OINTMENT 682640 MUPIROCIN Inactive LAMICTAL 25 MG ORAL TABLET 2 tabs by mouth twice a day LAMICTAL 25 MG ORAL TABLET 589922 LAMOTRIGINE Inactive NOVOLOG 100 UNIT/ML SUBCUTANEOUS SOLUTION 10 UNITS BEFORE SUPPER NOVOLOG 100 UNIT/ML SUBCUTANEOUS SOLUTION INSULIN ASPART Inactive NOVOLOG 100 UNIT/ML SUBCUTANEOUS SOLUTION 10 UNITS BID BEFORE BREAKFAST AND LUNCH NOVOLOG 100 UNIT/ML SUBCUTANEOUS SOLUTION INSULIN ASPART Inactive BANOPHEN 25 MG ORAL TABLET 1 po every 6 hours PRN allergic reaction BANOPHEN 25 MG ORAL TABLET 2034679 DIPHENHYDRAMINE HCL Inactive IPRATROPIUM-ALBUTEROL 0.5-2.5 (3) MG/3ML INHALATION SOLUTION 1 neb treatment four times daily, for cough IPRATROPIUM-ALBUTEROL 0.5- 2.5 (3) MG/3ML INHALATION SOLUTION 5910062 IPRATROPIUM-ALBUTEROL Inactive BACTRIM DS 800-160 MG ORAL TABLET 1 tab by mouth twice daily 2016 BACTRIM DS 800-160 MG ORAL TABLET 657549 TRIMETHOPRIM- SULFAMETHOXAZOLE Inactive Advance Directives Directive Description Start Date DURABLE POWER OF STAGE ELECTRICIAN FOR HEALTHCARE PERMISSION TO SHARE ADVANCED DIRECTIVE [...] Measured blood pressure, diastolic 66 mm[Hg] BP dayl blood pressure, systolic 144 mm[Hg] BP sys [...] Panel - Chemistry sodium, serum 127 mmol/L 774-870 0450/07/28 potassium, serum 5.3 mmol/L 3.5-5.2 chloride, serum 92 mmol/L 98-107 carbon dioxide, venous blood 32.4 mmol/L 21.0-32.0 blood glucose 182 mg/dL 65-110 calcium, serum 9.4 mg/dL 8.5-10.1 urea nitrogen, blood 14 mg/dL 7-18 creatinine, serum 0.94 mg/dL 0.60-1.30 Lab Report: CBC, Comp. Metabolic Panel - Chemistry sodium, serum 129 mmol/L 433-024 1708/07/12 carbon dioxide, venous blood 27.8 mmol/L 21.0-32.0 [...] HGBA1C - Chemistry sodium, serum 123 mmol/L 796-954 4118/04/25 carbon dioxide, venous blood 26.2 mmol/L 21.0-32.0 [...] mg/dL Encounters Code Encounter Date Provider Facility CPT-50233 Level 4 Est. Patient 14:46:38 CDT Pelon Quach MD [facility] CPT-96681 Level 4 Est. Patient 08:43:11 CDT Pelon Quach MD [facility] CPT-94487 Level 4 Est. Patient 14:27:30 CDT Pelon Quach MD [facility] CPT-03282 Level 3 Est. Patient 10:32:17 CDT Jaycee Torrez [facility] CPT-85037 Level 3 Est. Patient 10:15:07 CDT Pelon Quach MD [facility] CPT-55504 Level 4 Est. Patient 09:30:54 CDT Pelon Quach MD [facility] CPT-12998 Level 4 Est. Patient 14:34:25 CDT Pelon Quach MD [facility] CPT-51977 Level 3 Est. Patient 11:51:35 MOTOR VEHICLE SALESPERSON Rick Henson DO [facility] CPT-66216 Level 3 Est. Patient 12:13:33 MOTOR VEHICLE SALESPERSON Erik Baptiste MD [facility] CPT-96151 Level 3 Est. Patient 09:40:44 MOTOR VEHICLE SALESPERSON Jaycee Torrez [facility]-90814 Level 3 Est. Patient 09:36:32 MOTOR VEHICLE SALESPERSON Jaycee Torrez [facility]-93492 Level 4 Est. Patient 16:57:02 MOTOR VEHICLE SALESPERSON Pelon Quach MD [facility]-51834 Level 4 Est. Patient 22:19:34 CDT Pelon Quach MD [facility]-97232 Level 3 Est. Patient 00:34:41 CDT Pelon Quach MD [facility]-43056 Level 4 Est. Patient 11:19:14 CDT Pelon Quach MD [facility]-53882 Level 4 Est. Patient 16:43:30 MOTOR VEHICLE SALESPERSON Pelon Quach MD [facility]-83694 Level 4 Est. Patient 12:42:18 CDT Pelon Quach MD [facility]-84697 Level 4 Est. Patient 11:52:20 CDT Pelon Quach MD [facility]-44498 Level 4 Est. Patient 13:59:46 CDT Pelon Quach MD [facility]-37940 Level 4 Est. Patient 15:10:48 CDT Pelon Quach MD [facility]-40665 Level 4 Est. Patient 17:13:06 CDT Pelon Quach MD [facility]-95000 Level 4 Est. Patient 18:47:47 CDT Pelon Quach MD [facility]-11111 Level 3 Est. Patient 21:01:27 CDT Pelon Quach MD [facility]-94225 Level 3 Est. Patient 14:07:03 CDT Taty Alvarado MD, PhD [facility] CPT-82862 Level 3 New Patient 21:39:52 MOTOR VEHICLE SALESPERSON Pelon Quach MD [facility] CPT-33429 Level 3 Est. Patient 14:28:44 CDT Glenn Thornton MD [facility] CPT-26206 Level 3 Est. Patient 16:35:00 CDT Glenn Thornton MD [facility] CPT-34402 Level 4 New Patient 17:06:27 CDT Glenn Thornton MD [facility] Procedures Code Procedure Name Date Entry Date Standard Description CPT-G0438 Initial Annual Wellness Exam 09:30:54 CDT CPT-57712 Prevnar 13 Intramuscular Suspension 14:34:25 CDT 12/27 CPT-79300 Chest 2V Frontal and Lat - XRAY USE ONLY 11:56:13 MOTOR VEHICLE SALESPERSON CPT-40545 Cystoscopy 14:28:44 CDT CPT-14042 Bladder Scan 14:28:44 CDT CPT-63945 Indwelling Cath Change 17:06:27 CDT CPT-42063 Cystoscopy 17:06:27 CDT
--- OUTSIDE RECORDS SUMMARY | 2018-06-22 13:19 | XMS REPORT | Clinical Summary ---
Author Author Admin, E Organization [facility] [employer] Address Unknown Phone Unavailable Allergies, Adverse Reactions, [...] TABS by mouth twice a day CARBAMAZEPINE 91307133050 Active Taty Alvarado MD PhD Active NOVOLOG 100 UNIT/ML SC SOLN 7 UNITS BEFORE SUPPER INSULIN ASPART 49915251401 Active Marianela Juarez Active NOVOLOG 100 UNIT/ML SC SOLN 7 UNITS BID BEFORE BREAKFAST AND LUNCH INSULIN ASPART 55997884763 Active Marianela Juarez Active FLOMAX 0.4 MG CAPS 1 Daily TAMSULOSIN HCL 68969574888 Active Marianela Juarez Active INVEGA 6 MG ORAL LR32R-ELO 1 TAB ONCE DAILY PALIPERIDONE 74187552235 Active Marianela Juarez Active DILANTIN 100 MG CAPS Take one by mouth daily PHENYTOIN SODIUM EXTENDED 08247508072 No Longer Active Marianela Juarez Active DEPAKOTE SPRINKLES 125 MG CPSP 4 capsules by mouth twice daily DIVALPROEX SODIUM 15464872955 No Longer Active Marianela Juarez Active LAMICTAL 200 MG ORAL TABS 1 BY MOUTH TWICE A DAY LAMOTRIGINE 35667504225 Active Marianela Juarez Active LAMICTAL 100 MG TABS by mouth twice a day LAMOTRIGINE 08743093225 No Longer Active Marianela Juarez Active LAMICTAL 150 MG TABS by mouth twice a day LAMOTRIGINE 22229414238 No Longer Active Marianela Juarez Active DILANTIN 100 MG CAPS Take three by mouth daily PHENYTOIN SODIUM EXTENDED 20709855857 No Longer Active Marianela Juarez Active SENOKOT 8.6 MG TABS take at bedtime SENNOSIDES 18233144984 Active Glenn Thornton MD Active LIPITOR 20 MG TABS take at bedtime ATORVASTATIN CALCIUM 53648182358 Active Glenn Thornton MD Active LISINOPRIL 2.5 MG TABS Take one by mouth daily LISINOPRIL 58634790356 Active Glenn Thornton MD Active TRENTAL 400 MG CR-TABS by mouth twice a day PENTOXIFYLLINE 82199049384 Active Glenn Thornton MD Active LAMICTAL 25 MG TABS by mouth twice a day LAMOTRIGINE 08625028551 Active Glenn Thornton MD Active BUSPIRONE HCL 10 MG TABS by mouth twice a day BUSPIRONE HCL 60413561063 Active Glenn Thornton MD Active FUROSEMIDE 40 MG TABS Take one by mouth daily FUROSEMIDE 90738968111 Active Glenn Thornton MD Active KLOR-CON 10 10 MEQ CR-TABS Take one by mouth daily POTASSIUM CHLORIDE 59185517837 Active Glenn Thornton MD Active ADULT ASPIRIN EC LOW STRENGTH 81 MG TBEC Take one by mouth daily ASPIRIN 99720321148 Active Glenn Thornton MD Active DILANTIN 100 MG CAPS Take three by mouth daily DILANTIN 100 MG CAPS 947571 PHENYTOIN SODIUM EXTENDED Inactive LAMICTAL 150 MG TABS by mouth twice a day LAMICTAL 150 MG TABS 19831025 LAMOTRIGINE Inactive LAMICTAL 100 MG TABS by mouth twice a day LAMICTAL 100 MG TABS 19831024 LAMOTRIGINE Inactive DEPAKOTE SPRINKLES 125 MG CPSP 4 capsules by mouth twice daily DEPAKOTE SPRINKLES 125 MG CPSP 6247063 DIVALPROEX SODIUM Inactive DILANTIN 100 MG CAPS Take one by mouth daily DILANTIN 100 MG CAPS 054474 PHENYTOIN SODIUM EXTENDED Inactive Advance Directives Directive Description Start Date DURABLE POWER OF GENETIC COUNSELLOR FOR HEALTHCARE PERMISSION TO SHARE Vital Signs [...] Yes Encounters Code Encounter Date Provider Facility CPT-95476 Level 3 Est. Patient 14:07:03 CDT Taty Alvarado MD PhD [facility] CPT-87683 Level 3 New Patient 21:39:52 INTERNAL COMMUNICATIONS SPECIALIST Pelon Quach MD [facility] CPT-48801 Level 3 Est. Patient 14:28:44 CDT Glenn Thornton MD [facility] CPT-13439 Level 3 Est. Patient 16:35:00 CDT Glenn Thornton MD [facility] CPT-25943 Level 4 New Patient 17:06:27 CDT Glenn Thornton MD [facility] Procedures Code Procedure Name Date Entry Date Standard Description CPT-58028 Cystoscopy 14:28:44 CDT CPT-36911 Bladder Scan 14:28:44 CDT CPT-50206 Ind[address] Change 17:06:27 CDT CPT-56141 Cystoscopy 17:06:27 CDT
--- OUTSIDE RECORDS SUMMARY | 2018-06-22 13:19 | XMS REPORT | Clinical Summary ---
Author Author Admin, ONESIMO Organization [facility] [employer] [place] Address Unknown Phone Unavailable Allergies, Adverse [...] 1 tab by mouth twice daily TRIMETHOPRIM-SULFAMETHOXAZOLE [id number] No Longer Active Pelon Quach MD Active BACTROBAN 2 % OINTMENT Apply to affected area BID MUPIROCIN 66760355964 Active Jaycee Garcia APRN Active BACTRIM DS 800-160 MG TABS 1 twice a day SULFAMETHOXAZOLE-TRIMETHOPRIM 63585709253 No Longer Active Pelon Quach MD Active IPRATROPIUM-ALBUTEROL 0.5-2.5 (3) MG/3ML INH SOLN 1 neb treatment QID for cough Dx: J06.9 IPRATROPIUM-ALBUTEROL 26608293577 Active Jaycee Garcia APRN Active IPRATROPIUM-ALBUTEROL 0.5-2.5 (3) MG/3ML SOLN 1 neb treatment four times daily , for cough IPRATROPIUM-ALBUTEROL 83475547220 No Longer Active Jaycee Garcia APRN Active TYLENOL 8 HOUR 650 MG ORAL CR-TABS Take 1 tab po up to 3 times daily as needed ACETAMINOPHEN 36781194297 Active Jaycee Garcia APRN Active FUROSEMIDE 40 MG TABS Take one by mouth daily FUROSEMIDE 31671742345 No Longer Active Jaycee Garcia APRN Active LANTUS 100 UNIT/ML SC SOLN 20 SUBQ AT HS INSULIN GLARGINE 11510278306 Active Jaycee Garcia APRN Active LAMICTAL 25 MG ORAL TABS 2 tabs po BID for convulsions LAMOTRIGINE 54532369559 Active Jaycee Garcia APRN Active INVEGA 6 MG ORAL [id number] 1 po daily for Schizophrenia PALIPERIDONE 00979030556 Active Jaycee Garcia APRN Active LASIX 20 MG TAB 1 tablet by mouth every morning for edema FUROSEMIDE 83143410774 Active Jaycee Garcia APRN Active BUSPIRONE HCL 10 MG TABS 1 tab by mouth BID BUSPIRONE HCL 21083924755 Active Jaycee Garcia APRN Active NOVOLOG 100 UNIT/ML SC SOLN 10 UNITS BEFORE SUPPER INSULIN ASPART 47737468658 Active Jaycee Garcia APRN Active NOVOLOG 100 UNIT/ML SC SOLN 10 UNITS BID BEFORE BREAKFAST AND LUNCH INSULIN ASPART 55959768895 Active Jaycee Garcia APRN Active LAMICTAL 25 MG TABS 2 tabs by mouth twice a day LAMOTRIGINE 77137632425 Active Pelon Quach MD Active ADULT ASPIRIN EC LOW STRENGTH 81 MG TBEC Take one by mouth daily ASPIRIN 93282251748 No Longer Active Pelon Quach MD Active ASPIRIN 81 MG ORAL TABS 1 po qd ASPIRIN 19957559890 Active Pelon Quach MD Active ZOFRAN 4 MG TABS 1 po q6hr PRN Nausea ONDANSETRON HCL 31661664717 No Longer Active Pelon Quach MD Active TYLENOL 325 MG TAB 1-2 pills by mouth every 6 hours if needed for pain/fever ACETAMINOPHEN 84195812164 No Longer Active Pelon Quach MD Active INVEGA 6 MG ORAL [id number] 1 TAB ONCE DAILY PALIPERIDONE 55059817037 No Longer Active Carly Suggs Active TEGRETOL 200 MG TABS by mouth twice a day CARBAMAZEPINE 59818766701 Active Taty Alvarado MD PhD Active FLOMAX 0.4 MG CAPS 1 Daily TAMSULOSIN HCL 74753266600 Active Marianela ida Active DILANTIN 100 MG CAPS Take one by mouth daily PHENYTOIN SODIUM EXTENDED 06525260242 No Longer Active Marianela Larry Active DEPAKOTE SPRINKLES 125 MG CPSP 4 capsules by mouth twice daily DIVALPROEX SODIUM 20913793745 No Longer Active Marianela Raida Active LAMICTAL 200 MG ORAL TABS 1 BY MOUTH TWICE A DAY LAMOTRIGINE 48449603703 Active Marianela Raida Active LAMICTAL 100 MG TABS by mouth twice a day LAMOTRIGINE 42343146072 No Longer Active Marianela Raida Active LAMICTAL 150 MG TABS by mouth twice a day LAMOTRIGINE 98915846748 No Longer Active Marianela Raida Active DILANTIN 100 MG CAPS Take three by mouth daily PHENYTOIN SODIUM EXTENDED 05308251517 No Longer Active Marianela Raida Active SENOKOT 8.6 MG TABS take at bedtime SENNOSIDES 28966922650 Active Glenn Thornton MD Active LIPITOR 20 MG TABS take at bedtime ATORVASTATIN CALCIUM 12282416780 Active Glenn Thornton MD Active LISINOPRIL 2.5 MG TABS Take one by mouth daily LISINOPRIL 38315883445 Active Glenn Thornton MD Active TRENTAL 400 MG CR-TABS by mouth twice a day PENTOXIFYLLINE 02659197373 Active Glenn Thornton MD Active KLOR-CON 10 10 MEQ CR-TABS Take one by mouth daily POTASSIUM CHLORIDE 08256217266 Active Glenn Thornton MD Active DILANTIN 100 MG CAPS Take three by mouth daily DILANTIN 100 MG CAPS 022372 PHENYTOIN SODIUM EXTENDED Inactive LAMICTAL 150 MG TABS by mouth twice a day LAMICTAL 150 MG TABS 19831025 LAMOTRIGINE Inactive LAMICTAL 100 MG TABS by mouth twice a day LAMICTAL 100 MG TABS 19831024 LAMOTRIGINE Inactive DEPAKOTE SPRINKLES 125 MG CPSP 4 capsules by mouth twice daily DEPAKOTE SPRINKLES 125 MG CPSP 1170738 DIVALPROEX SODIUM Inactive DILANTIN 100 MG CAPS Take one by mouth daily DILANTIN 100 MG CAPS 086396 PHENYTOIN SODIUM EXTENDED Inactive INVEGA 6 MG ORAL [id number] 1 TAB ONCE DAILY INVEGA 6 MG ORAL [id number] PALIPERIDONE Inactive TYLENOL 325 MG TAB 1-2 pills by mouth every 6 hours if needed for pain/fever TYLENOL 325 MG TAB 834088 ACETAMINOPHEN Inactive ZOFRAN 4 MG TABS 1 po q6hr PRN Nausea ZOFRAN 4 MG TABS 772894 ONDANSETRON HCL Inactive ADULT ASPIRIN EC LOW STRENGTH 81 MG TBEC Take one by mouth daily ADULT ASPIRIN EC LOW STRENGTH 81 MG TBEC 052779 ASPIRIN Inactive FUROSEMIDE 40 MG TABS Take one by mouth daily FUROSEMIDE 40 MG TABS 709981 FUROSEMIDE Inactive BACTRIM DS 800-160 MG TABS 1 twice a day BACTRIM DS 800-160 MG TABS 296906 SULFAMETHOXAZOLE-TRIMETHOPRIM Inactive IPRATROPIUM-ALBUTEROL 0.5-2.5 (3) MG/3ML SOLN 1 neb treatment four times daily , for cough IPRATROPIUM-ALBUTEROL 0.5-2.5 (3) MG/3ML SOLN 5567924 IPRATROPIUM-ALBUTEROL Inactive BACTRIM DS 800-160 MG TAB 1 tab by mouth twice daily BACTRIM DS 800-160 MG TAB 357657 TRIMETHOPRIM-SULFAMETHOXAZOLE Inactive Advance Directives Directive Description Start Date DURABLE POWER OF ENROLLMENT MANAGEMENT VICE PRESIDENT FOR HEALTHCARE PERMISSION TO SHARE ADVANCED DIRECTIVE [...] mg/dL Encounters Code Encounter Date Provider Facility CPT-54257 Level 3 Est. Patient 10:32:[address] [facility] CPT-31470 Level 3 Est. Patient 10:15:07 CDT Pelon Quach MD [facility]-09936 Level 4 Est. Patient 09:30:54 CDT Pelon Quach MD [facility] CPT-05557 Level 4 Est. Patient 14:34:25 CDT Pelon Quach MD [facility]-15330 Level 3 Est. Patient 11:51:35 HOSPITAL TECHNICIAN Rick Henson DO [facility] CPT-98526 Level 3 Est. Patient 12:13:33 HOSPITAL TECHNICIAN Erik Baptiste MD [facility]-30079 Level 3 Est. Patient 09:40:44 HOSPITAL TECHNICIAN Jaycee Garcia [facility]-34444 Level 3 Est. Patient 09:36:32 HOSPITAL TECHNICIAN Jaycee Garcia [facility]-83779 Level 4 Est. Patient 16:57:02 HOSPITAL TECHNICIAN Pelon Quach MD [facility]-39847 Level 4 Est. Patient 22:19:34 CDT Pelon Quach MD [facility]-76762 Level 3 Est. Patient 00:34:41 CDT Pelon Quach MD [facility]-45472 Level 4 Est. Patient 11:19:14 CDT Pelon Quach MD [facility]-05995 Level 4 Est. Patient 16:43:30 HOSPITAL TECHNICIAN Pelon Quach MD [facility]-55735 Level 4 Est. Patient 12:42:18 CDT Pelon Quach MD [facility] CPT-77885 Level 4 Est. Patient 11:52:20 CDT Pelon Quach MD [facility] CPT-92001 Level 4 Est. Patient 13:59:46 CDT Pelon Quach MD [facility] CPT-29160 Level 4 Est. Patient 15:10:48 CDT Pelon Quach MD [facility] CPT-72166 Level 4 Est. Patient 17:13:06 CDT Pelon Quach MD [facility] CPT-37419 Level 4 Est. Patient 18:47:47 CDT Pelon uQach MD [facility] CPT-78846 Level 3 Est. Patient 21:01:27 CDT Pelon Quach MD [facility] CPT-09368 Level 3 Est. Patient 14:07:03 CDT Taty Alvarado MD PhD [facility] CPT-27977 Level 3 New Patient 21:39:52 HOSPITAL TECHNICIAN Pelon Quach MD [facility] CPT-01590 Level 3 Est. Patient 14:28:44 CDT Glenn Thornton MD [facility] CPT-59609 Level 3 Est. Patient 16:35:00 CDT Glenn Thornton MD [facility] CPT-15163 Level 4 New Patient 17:06:27 CDT Glenn Thornton MD [facility] [place] Procedures Code Procedure Name Date Entry Date Standard Description CPT-G0438 Initial Annual Wellness Exam 09:30:54 CDT CPT-19762 Prevnar 13 Intramuscular Suspension 14:34:25 CDT 12/27 CPT-63630 Chest 2V Frontal and Lat - XRAY USE ONLY 11:56:13 HOSPITAL TECHNICIAN CPT-06903 Cystoscopy 14:28:44 CDT CPT-89128 Bladder Scan 14:28:44 CDT CPT-84265 Indwelling Cath Change 17:06:27 CDT CPT-99957 Cystoscopy 17:06:27 CDT
--- OUTSIDE RECORDS SUMMARY | 2018-06-22 13:19 | XMS REPORT | Clinical Summary ---
Author Author Admin, SwipeClock Organization [facility] [employer] Address Unknown Phone Unavailable Allergies, Adverse Reactions, Alerts Allergy Name Reaction Description Start Date Severity Status Provider No Known Allergies Jennifer Herrera RN Conditions or Problems Problem Name Problem Code [...] D 530.81 Active Muna Gallardo Esophageal reflux Medication List Medication Instructions Start Date Stop Date Generic Name NDC Status Provider Patient Instruction NOVOLOG 100 UNIT/ML SC SOLN 7 UNITS BEFORE SUPPER INSULIN ASPART 98587527219 Active Marianela Raida Active NOVOLOG 100 UNIT/ML SC SOLN 7 UNITS BID BEFORE BREAKFAST AND LUNCH INSULIN ASPART 64840901334 Active Marianela Raida Active FLOMAX 0.4 MG CAPS 1 Daily TAMSULOSIN HCL 53253504294 Active Marainela Raida Active INVEGA 6 MG ORAL [id number] 1 TAB ONCE DAILY PALIPERIDONE 12269501388 Active Marianela Raida Active DILANTIN 100 MG CAPS Take one by mouth daily PHENYTOIN SODIUM EXTENDED 48536380665 No Longer Active Marianelachandrika Juarez Active DEPAKOTE SPRINKLES 125 MG CPSP 4 capsules by mouth twice daily DIVALPROEX SODIUM 09267298473 No Longer Active Marianelachandrika Juarez Active LAMICTAL 200 MG ORAL TABS 1 BY MOUTH TWICE A DAY LAMOTRIGINE 21986896198 Active Marianelachandrika Juarez Active LAMICTAL 100 MG TABS by mouth twice a day LAMOTRIGINE 16344224171 No Longer Active Marianelachandrika Juarez Active LAMICTAL 150 MG TABS by mouth twice a day LAMOTRIGINE 18094045572 No Longer Active Marianelachandrika Shankarrocky ford Active DILANTIN 100 MG CAPS Take three by mouth daily PHENYTOIN SODIUM EXTENDED 82943486532 No Longer Active Marianelachandrika Juarez Active SENOKOT 8.6 MG TABS take at bedtime SENNOSIDES 94486769640 Active Glenn Thornton MD Active LIPITOR 20 MG TABS take at bedtime ATORVASTATIN CALCIUM 93381284926 Active Glenn Thornton MD Active LISINOPRIL 2.5 MG TABS Take one by mouth daily LISINOPRIL 88820987650 Active Glenn Thornton MD Active TRENTAL 400 MG CR-TABS by mouth twice a day PENTOXIFYLLINE 53742921604 Active Glenn Thornton MD Active LAMICTAL 25 MG TABS by mouth twice a day LAMOTRIGINE 76114414328 Active Glenn Thornton MD Active BUSPIRONE HCL 10 MG TABS by mouth twice a day BUSPIRONE HCL 26499896278 Active Glenn Thornton MD Active FUROSEMIDE 40 MG TABS Take one by mouth daily FUROSEMIDE 57884194475 Active Glenn Thornton MD Active TEGRETOL 200 MG TABS Take one by mouth daily CARBAMAZEPINE 39981232023 Active Glenn Thornton MD Active KLOR-CON 10 10 MEQ CR-TABS Take one by mouth daily POTASSIUM CHLORIDE 83681132546 Active Glenn Thornton MD Active ADULT ASPIRIN EC LOW STRENGTH 81 MG TBEC Take one by mouth daily ASPIRIN 35131301257 Active Glenn Thornton MD Active DILANTIN 100 MG CAPS Take three by mouth daily DILANTIN 100 MG CAPS 113490 PHENYTOIN SODIUM EXTENDED Inactive LAMICTAL 150 MG TABS by mouth twice a day LAMICTAL 150 MG TABS 863400 LAMOTRIGINE Inactive LAMICTAL 100 MG TABS by mouth twice a day LAMICTAL 100 MG TABS 020942 LAMOTRIGINE Inactive DEPAKOTE SPRINKLES 125 MG CPSP 4 capsules by mouth twice daily DEPAKOTE SPRINKLES 125 MG CPSP 2459242 DIVALPROEX SODIUM Inactive DILANTIN 100 MG CAPS Take one by mouth daily DILANTIN 100 MG CAPS 191429 PHENYTOIN SODIUM EXTENDED Inactive Advance Directives Directive Description Start Date DURABLE POWER OF PACKAGE SORTER FOR HEALTHCARE PERMISSION TO SHARE Diagnostic Results Date Name Value Unit Range Description Chart Maintenance: Outside labs entered on flowsheet - Chemistry hemoglobin A1C, blood, as % of total hemoglobin 6.6 % Encounters Code Encounter Date Provider Facility CPT-14703 Level 3 Est. Patient 14:28:44 CDT Glenn Thornton MD [facility] CPT-47797 Level 3 Est. Patient 16:35:00 CDT Glenn Thornton MD [facility] CPT-94718 Level 4 New Patient 17:06:27 CDT Glenn Thornton MD [facility] Procedures Code Procedure Name Date Entry Date Standard Description CPT-13459 Cystoscopy 14:28:44 CDT CPT-80573 Bladder Scan 14:28:44 CDT CPT-75378 Indw[address] Cath Change 17:06:27 CDT CPT-06352 Cystoscopy 17:06:27 CDT
--- OUTSIDE RECORDS SUMMARY | 2018-06-22 13:19 | XMS REPORT | Clinical Summary ---
Author Author Admin, Tidal Organization [facility] [employer] Address Unknown Phone Unavailable Allergies, Adverse Reactions, [...] SOLN 7 UNITS BEFORE SUPPER INSULIN ASPART 04884842379 Active Marianela Raida Active NOVOLOG 100 UNIT/ML SC SOLN 7 UNITS BID BEFORE BREAKFAST AND LUNCH INSULIN ASPART 48121442656 Active Marianela Raida Active FLOMAX 0.4 MG CAPS 1 Daily TAMSULOSIN HCL 80495397877 Active Marianela Raida Active INVEGA 6 MG ORAL [id number] 1 TAB ONCE DAILY PALIPERIDONE 79315485682 Active Marianela Raida Active DILANTIN 100 MG CAPS Take one by mouth daily PHENYTOIN SODIUM EXTENDED 89641821318 No Longer Active Marianelachandrika Juarez Active DEPAKOTE SPRINKLES 125 MG CPSP 4 capsules by mouth twice daily DIVALPROEX SODIUM 71520908868 No Longer Active Marianleachandrika Juarez Active LAMICTAL 200 MG ORAL TABS 1 BY MOUTH TWICE A DAY LAMOTRIGINE 92227657937 Active Marianelachandrika Juarez Active LAMICTAL 100 MG TABS by mouth twice a day LAMOTRIGINE 16477644671 No Longer Active Marianelachandrika Juarez Active LAMICTAL 150 MG TABS by mouth twice a day LAMOTRIGINE 38230417605 No Longer Active Marianelachandrika Shankarwadsworth Active DILANTIN 100 MG CAPS Take three by mouth daily PHENYTOIN SODIUM EXTENDED 99861124465 No Longer Active Marianelachandrika Juarez Active SENOKOT 8.6 MG TABS take at bedtime SENNOSIDES 52109744158 Active Glenn Thornton MD Active LIPITOR 20 MG TABS take at bedtime ATORVASTATIN CALCIUM 51116263121 Active Glenn Thornton MD Active LISINOPRIL 2.5 MG TABS Take one by mouth daily LISINOPRIL 47638760561 Active Glenn Thornton MD Active TRENTAL 400 MG CR-TABS by mouth twice a day PENTOXIFYLLINE 04457787700 Active Glenn Thornton MD Active LAMICTAL 25 MG TABS by mouth twice a day LAMOTRIGINE 58581470150 Active Glenn Thornton MD Active BUSPIRONE HCL 10 MG TABS by mouth twice a day BUSPIRONE HCL 83529322988 Active Glenn Thornton MD Active FUROSEMIDE 40 MG TABS Take one by mouth daily FUROSEMIDE 76343676955 Active Glenn Thornton MD Active TEGRETOL 200 MG TABS Take one by mouth daily CARBAMAZEPINE 56991234748 Active Glenn Thornton MD Active KLOR-CON 10 10 MEQ CR-TABS Take one by mouth daily POTASSIUM CHLORIDE 55941943910 Active Glenn Thornton MD Active ADULT ASPIRIN EC LOW STRENGTH 81 MG TBEC Take one by mouth daily ASPIRIN 60583958458 Active Glenn Thornton MD Active DILANTIN 100 MG CAPS Take three by mouth daily DILANTIN 100 MG CAPS 380909 PHENYTOIN SODIUM EXTENDED Inactive LAMICTAL 150 MG TABS by mouth twice a day LAMICTAL 150 MG TABS 161462 LAMOTRIGINE Inactive LAMICTAL 100 MG TABS by mouth twice a day LAMICTAL 100 MG TABS 752171 LAMOTRIGINE Inactive DEPAKOTE SPRINKLES 125 MG CPSP 4 capsules by mouth twice daily DEPAKOTE SPRINKLES 125 MG CPSP 2257475 DIVALPROEX SODIUM Inactive DILANTIN 100 MG CAPS Take one by mouth daily DILANTIN 100 MG CAPS 113995 PHENYTOIN SODIUM EXTENDED Inactive Advance Directives Directive Description Start Date DURABLE POWER OF DIRECTOR OF MATERIALS FOR HEALTHCARE PERMISSION TO SHARE Encounters Code Encounter Date Provider Facility CPT-18553 Level 3 Est. Patient 14:28:44 CDT Glenn Thornton MD [facility] CPT-34789 Level 3 Est. Patient 16:35:00 CDT Glenn Thornton MD [facility] CPT-32115 Level 4 New Patient 17:06:27 CDT Glenn Thornton MD [facility] Procedures Code Procedure Name Date Entry Date Standard Description CPT-12046 Cystoscopy 14:28:44 CDT CPT-30694 Bladder Scan 14:28:44 CDT CPT-56709 Ind[address] Change 17:06:27 CDT CPT-69366 Cystoscopy 17:06:27 CDT
--- OUTSIDE RECORDS SUMMARY | 2018-06-22 13:20 | XMS REPORT | Continuity of Care Document ---
Demographics x Preferred Language Unknown Marital Status Unknown Mormon Affiliation Unknown Race Unknown Ethnic Group Unknown Author Author [facility] Organization [facility] Address Unknown Phone Unavailable Allergies Active Description Code Type Severity Reaction Onset Reported/Identified Relationship to Patient Clinical Status Yes No known drug allergies [id number] Drug Allergy N/A N/A Confirmed but inactive Yes shrimp 65008 Drug Allergy N/A N/A Confirmed or Verified Yes No Known Medication Allergies Drug N/A N/A Yes shrimp Food Allergy N/A N/A 06/19/2013 Medications There is no data. Problems Date Dx Coded Attending Type Code Diagnosis Diagnosed By 06/19/2013 TIMA BILLINGS MD 380.10 OTITIS EXTERNA BOTH 06/19/2013 TIMA BILLINGS MD 380.10 OTITIS EXTERNA BOTH 06/19/2013 TIMA BILLINGS MD 380.10 OTITIS EXTERNA BOTH 06/19/2013 TIMA BILLINGS MD 380.10 OTITIS EXTERNA BOTH 06/19/2013 TIMA BILLINGS MD 380.10 OTITIS EXTERNA BOTH 06/19/2013 TIMA BILLINGS MD 380.10 OTITIS EXTERNA BOTH 06/19/2013 TIMA BILLINGS MD 380.10 OTITIS EXTERNA BOTH 06/19/2013 TIMA BILLINGS MD 380.10 OTITIS EXTERNA BOTH 06/19/2013 TIMA BILLINGS MD 380.10 OTITIS EXTERNA BOTH 08/13/2013 TIMA BILLINGS MD 250.00 DIABETES II CONTROLLED (UNCOMPLICATED) 08/13/2013 TIMA BILLINGS MD 250.00 DIABETES II CONTROLLED (UNCOMPLICATED) 08/13/2013 TIMA BILLINGS MD 250.00 DIABETES II CONTROLLED (UNCOMPLICATED) 08/13/2013 TIMA BILLINGS MD 250.00 DIABETES II CONTROLLED (UNCOMPLICATED) 08/13/2013 TIMA BILLINGS MD 250.00 DIABETES II CONTROLLED (UNCOMPLICATED) 08/13/2013 TIMA BILLINGS MD 250.00 DIABETES II CONTROLLED (UNCOMPLICATED) 08/13/2013 TIMA BILLINGS MD 250.00 DIABETES II CONTROLLED (UNCOMPLICATED) 08/13/2013 TIMA BILLINGS MD 250.00 DIABETES II CONTROLLED (UNCOMPLICATED) 10/28/2013 TIMA BILLINGS MD 461.0 SINUSITIS, ACUTE MAXILLARY 10/28/2013 TIMA BILLINGS MD 786.2 COUGH 10/28/2013 TIMA BILLINGS MD 461.0 SINUSITIS, ACUTE MAXILLARY 10/28/2013 TIMA BILLINGS MD 786.2 COUGH 10/28/2013 TIMA BILLINGS MD 461.0 SINUSITIS, ACUTE MAXILLARY 10/28/2013 TIMA BILLINGS MD 786.2 COUGH 10/28/2013 TIMA BILLINGS MD 461.0 SINUSITIS, ACUTE MAXILLARY 10/28/2013 TIMA BILLINGS MD 786.2 COUGH 10/28/2013 TIMA BILLINGS MD 461.0 SINUSITIS, ACUTE MAXILLARY 10/28/2013 TIMA BILLINGS MD 786.2 COUGH 10/28/2013 TIMA BILLINGS MD 461.0 SINUSITIS, ACUTE MAXILLARY 10/28/2013 TIMA BILLINGS MD 786.2 COUGH 01/12/2014 TIMA BILLINGS MD 250.80 DIABETES WITH OTHER SPECIFIED MANIFESTATIONS TYPE II OR UNSPECIFIED TYPE NOT STATED UNCONTROLLED 01/12/2014 TIMA BILLINGS MD 250.80 DIABETES WITH OTHER SPECIFIED MANIFESTATIONS TYPE II OR UNSPECIFIED TYPE NOT STATED UNCONTROLLED 01/12/2014 TIMA BILLINGS MD 250.80 DIABETES WITH OTHER SPECIFIED MANIFESTATIONS TYPE II OR UNSPECIFIED TYPE NOT STATED UNCONTROLLED 01/12/2014 TIMA BILLINGS MD 250.80 DIABETES WITH OTHER SPECIFIED MANIFESTATIONS TYPE II OR UNSPECIFIED TYPE NOT STATED UNCONTROLLED 01/12/2014 TIMA BILLINGS MD 250.80 DIABETES WITH OTHER SPECIFIED MANIFESTATIONS TYPE II OR UNSPECIFIED TYPE NOT STATED UNCONTROLLED 02/11/2014 TIMA BILLINGS MD 784.7 EPISTAXIS 02/11/2014 TIMA BILLINGS MD 784.7 EPISTAXIS 02/11/2014 TIMA BILLINGS MD 784.7 EPISTAXIS 02/11/2014 TIMA BILLINGS MD 784.7 EPISTAXIS 06/18/2014 TIMA BILLINGS MD 311 DEPRESSIVE DISORDER NOS 06/18/2014 TIMA BILLINGS MD 311 DEPRESSIVE DISORDER NOS 08/03/2014 TIMA BILLINGS MD 296.00 BIPOLAR I DISORDER SINGLE MANIC EPISODE UNSPECIFIED 02/25/2015 FRANKLIN QUACH 272.4 OTHER AND UNSPECIFIED HYPERLIPIDEMIA 02/25/2015 FRANKLIN QUACH V58.69 High-risk medication, long-term use 08/19/2015 FRANKLIN QUACH E11.9 Type 2 diabetes mellitus without complications 08/19/2015 FRANKLIN QUACH E78.5 Hyperlipidemia, unspecified 08/19/2015 FRANKLIN QUACH I10 Essential (primary) hypertension 08/19/2015 FRANKLIN QUACH R56.9 Unspecified convulsions 11/16/2015 FRANKLIN QUACH E11.9 Type 2 diabetes mellitus without complications 02/17/2016 FRANKLIN QUACH E11.9 Type 2 diabetes mellitus without complications 02/17/2016 FRANKLIN QUACH E78.5 Hyperlipidemia, unspecified 02/17/2016 FRANKLIN QUACH F20.89 Other schizophrenia 02/17/2016 FRANKLIN QUACH I10 Essential (primary) hypertension 02/17/2016 FRANKLIN QUACH R56.9 Unspecified convulsions 05/19/2016 EDVIN MELGAR E11.9 Type 2 diabetes mellitus without complications 05/19/2016 EDVIN MELGAR E78.5 Hyperlipidemia, unspecified 05/29/2016 EDVIN MELGAR E78.5 Hyperlipidemia, unspecified 07/01/2017 Franklin Quach MD E11.69 Type 2 diabetes mellitus with other specified complication 07/01/2017 Franklin Quach MD S90.421S Blister (nonthermal), right great toe, sequela 01/07/2018 Franklin Quach MD R41.0 Confusion 02/03/2018 Franklin Quach MD 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 02/03/2018 Franklin Quach MD Z91.81 Personal history of fall 02/21/2018 Franklin Quach MD M25.511 Shoulder pain, right 02/21/2018 Franklin Quach MD Z68.27 Body Mass Index 27.0-27.9 Adult 03/08/2018 Franklin Quach MD Z48.02 Encounter for removal of sutures 03/08/2018 Franklin Quach MD S01.82xA Laceration with foreign body of other part of head, initial encounter 03/08/2018 Franklin Quach MD W19.xxxA Accidental fall 05/15/2018 Franklin Quach MD 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 05/15/2018 Franklin Quach MD R32 Urinary incontinence Procedures Code Description Performed By Performed On Neurology Jakub Esquivel 04/08/2014 62119 CMP 06/18/2014 98456 LIPID PANEL 06/18/2014 8559078 GFR CALC (RESULT ONLY) 06/18/2014 21304 CBC 06/18/2014 14419 A1C (RML) 06/19/2014 23943 CMP 08/20/2014 22564 LIPID PANEL 08/20/2014 94218 CBC 08/20/2014 31892 ROUTINE VENIPUNCTURE 02/21/2016 12848 METABOLIC PANEL TOTAL CA 02/21/2016 96134 COMPREHEN METABOLIC PANEL 02/21/2016 20034 URINALYSIS, AUTO W/SCOPE 02/21/2016 99095 ASSAY OF LIPASE 02/21/2016 35282 COMPLETE CBC W/AUTO DIFF WBC 02/21/2016 C1781 MESH (IMPLANTABLE) 02/21/2016 C9290 INJ, BUPIVICAINE LIPOSOME 02/21/2016 J2704 INJ, PROPOFOL, 10 MG 02/21/2016 J7040 NORMAL SALINE SOLUTION INFUS 02/21/2016 J7120 RINGERS LACTATE INFUSION 02/21/2016 Results Test Result Range CBC WITH DIFF - 02/20/16 00:00 BASO% 0.3 % 0-2 EOS% 0.4 % 0-7.0 HCT 43.1 % 41.9-52.0 HGB 14.9 G/DL 13.0-18.0 LYMPH% 5.0 % 20-40 MCH 31.8 PG 27-31 MCHC 34.6 G/DL 33-37 MCV 91.9 FL 80-94 MONO% 5.6 % 0-10.0 MPV 8.5 FL 7.3-10.4 NEUTRO% 88.2 % 40-70 PLT 266 10^3u 130-400 RBC 4.7 10^6u 4.7-6.1 RDW 13.9 % 11.5-15.5 WBC 14.8 10^3u 4.8-10.8 NEUTRO# 13.1 10^3u 1.5-7.5 LYMPH# 0.7 10^3u 0.9-4.0 MONO# 0.8 10^3u 0-0.8 EOS# 0.1 10^3u 0-0.6 BASO# 0.0 10^3u 0-0.1 IMM GRANULOCYTE % 0.5 % IMM GRANULOCYTE # 0.1 10^3u 0-5 LIP - 02/20/16 00:00 LIP 112 U/L 73-393 CMP - 02/20/16 00:00 ALB 4.6 G/DL 3.5-5 ALP 59 IU/L 39-107 ALT 25 IU/L 12-65 AST 34 IU/L 10-42 BCR 26.2 10-20 BUN 22 MG/DL 7-18 CA 9.1 MG/DL 8.4-10.2 CL 92 MEQ/L 98-107 CO2 29.4 MEQ/L 22-28 CREA 0.84 MG/DL 0.6-1.3 EGFR 90 eGFR >=60 GLU 155 MG/DL 70-105 K 4.1 MEQ/L 3.5-5.1 NA 132 MEQ/L 134-145 OSMSC 271.0 MOSML 280-300 TBIL 0.6 MG/DL 0.1-1.0 TP 8.1 G/DL 6.0-8.3 Albumin/Globulin Ratio 1.3 0-8 Anion Gap 10.6 8-16 UA - 02/20/16 00:00 PH 6.5 4.5-8.0 SG 1.020 1.003-1.035 UABILI NEGATIVE UABLD NEGATIVE UACOLOR YEL UAGLU NEGATIVE UAKET 1+ UALEUK NEGATIVE UANIT NEGATIVE UAURO 0.2 0-0.2 UCX NO CLARITY CL PROTEIN TRACE UA WBC NOWBC UA RBC NORBC SQUAMOUS EPITHELIAL CELLS FEW BMP - 02/21/16 00:00 BCR 25.4 10-20 BUN 18 MG/DL 7-18 CA 7.9 MG/DL 8.4-10.2 CL 97 MEQ/L 98-107 CO2 26.7 MEQ/L 22-28 CREA 0.71 MG/DL 0.6-1.3 EGFR 109 eGFR >=60 GLU 234 MG/DL 70-105 K 4.1 MEQ/L 3.5-5.1 NA 131 MEQ/L 134-145 OSMSC 272.1 MOSML 280-300 Anion Gap 7.3 8-16 CBC WITH DIFF - 02/21/16 00:00 BASO% 0.4 % 0-2 EOS% 1.5 % 0-7.0 HCT 36.2 % 41.9-52.0 HGB 12.5 G/DL 13.0-18.0 LYMPH% 9.6 % 20-40 MCH 31.8 PG 27-31 MCHC 34.5 G/DL 33-37 MCV 92.1 FL 80-94 MONO% 10.7 % 0-10.0 MPV 8.8 FL 7.3-10.4 NEUTRO% 77.4 % 40-70 PLT 228 10^3u 130-400 RBC 3.9 10^6u 4.7-6.1 RDW 13.7 % 11.5-15.5 WBC 10.0 10^3u 4.8-10.8 NEUTRO# 7.7 10^3u 1.5-7.5 LYMPH# 1.0 10^3u 0.9-4.0 MONO# 1.1 10^3u 0-0.8 EOS# 0.2 10^3u 0-0.6 BASO# 0.0 10^3u 0-0.1 IMM GRANULOCYTE % 0.4 % IMM GRANULOCYTE # 0.0 10^3u 0-5 Encounters ACCT No. Visit Date/Time Discharge Status Pt. Type Provider Facility Loc./Unit Complaint [id number] 02/20/2016 22:48:00 02/21/2016 17:15:00 DIS Outpatient EDVIN BARRERA [facility] OBS [id number] 01/11/2015 02:15:00 01/11/2015 03:50:00 DIS Emergency MELISSA GALINA [facility] EMR [id number] 08/16/2015 00:00:00 Document Registration [email or web address] 04/12/2018 07:30:03 ACT Document Registration [id number] 07/17/2016 13:58:00 07/17/2016 14:58:00 [id number] 05/29/2016 10:38:00 05/29/2016 11:38:00 [id number] 05/19/2016 10:17:00 05/19/2016 11:17:00 DIS DEANA MELGAR [facility] OT [id number] 02/17/2016 09:26:00 02/17/2016 10:26:00 DIS DEANA QUACH [facility] OT [id number] 11/16/2015 10:27:00 11/16/2015 11:27:00 DIS DEANA QUACH [facility] OT [id number] 08/19/2015 08:43:00 08/19/2015 [id number] 02/25/2015 12:42:00 02/25/2015 13:42:00 [id number] 06/03/2018 14:35:29 ACT Franklin Jones MD [id number] 06/17/2018 23:58:15 06/17/2018 23:59:59 DIS Outpatient BETO SINGH [facility] [id number] 06/17/2018 19:08:00 06/17/2018 23:59:[address] [facility] O[facility] ED visit [id number] 02/28/2018 00:07:00 02/28/2018 23:59:[address] [facility] ED ed visit [id number] 02/27/2018 23:40:00 02/27/2018 23:59:59 DIS Outpatient BETO SINGH [facility] [id number] 01/03/2018 08:06:39 01/03/2018 23:59:59 DIS Outpatient FRANKLIN GENAO [facility] [id number] 01/03/2018 05:51:00 01/03/2018 23:59:[address] [facility] ED ed visit [id number] 10/12/2016 18:43:00 10/12/2016 23:59:[address] [facility] ED unknown [id number] 10/11/2016 03:14:00 10/11/2016 23:59:[address] [facility] ED unknown [id number] 06/22/2018 04:16:19 Document Registration [id number] 06/15/2018 02:00:56 Document Registration [id number] 05/23/2018 09:14:53 Document Registration [id number] 10/12/2016 19:47:36 Document Registration [id number] 10/11/2016 23:28:28 Document Registration [id number] 08/19/2014 11:08:00 08/19/2014 23:59:59 CLS Outpatient TIMA BILLINGS MD [id number] 06/18/2014 11:04:00 06/18/2014 23:59:59 CLS Outpatient TIMA BILLINGS MD [id number] 04/08/2014 14:22:00 04/08/2014 23:59:59 CLS Outpatient TIMA BILLINGS MD [id number] 02/11/2014 09:58:00 02/11/2014 23:59:59 CLS Outpatient TIMA BILLINGS MD [id number] 01/12/2014 10:29:00 01/12/2014 23:59:59 CLS Outpatient TIMA BILLINGS MD [id number] 11/20/2013 11:03:00 11/20/2013 23:59:59 CLS Outpatient TIMA BILLINGS MD [id number] 10/13/2013 10:09:00 10/13/2013 23:59:59 CLS Outpatient TIMA BILLINGS MD [id number] 08/13/2013 11:10:00 08/13/2013 23:59:59 CLS Outpatient TIMA BILLINGS MD [id number] 06/19/2013 11:30:00 06/19/2013 23:59:59 CLS Outpatient TIMA BILLINGS MD
--- OUTSIDE RECORDS SUMMARY | 2018-06-22 13:20 | XMS REPORT | Clinical Summary ---
Author Author Admin, [employer] Organization [facility] Address Unknown Phone Unavailable Allergies, Adverse Reactions, Alerts Allergy Name Reaction Description Start Date Severity Status Provider No Known Allergies Marianela Raida Conditions or Problems Problem Name Problem Code [...] Active Pelon Quach MD Bipolar disorder, unspecified Medication List Medication Instructions Start Date Stop Date Generic Name NDC Status Provider Patient Instruction NOVOLOG 100 UNIT/ML SC SOLN 7 UNITS BEFORE SUPPER INSULIN ASPART 29678664339 Active Marianela Raida Active NOVOLOG 100 UNIT/ML SC SOLN 7 UNITS BID BEFORE BREAKFAST AND LUNCH INSULIN ASPART 22495328859 Active Marianela Raida Active FLOMAX 0.4 MG CAPS 1 Daily TAMSULOSIN HCL 47992243551 Active Marianela Juarez Active INVEGA 6 MG ORAL [id number] 1 TAB ONCE DAILY PALIPERIDONE 78291983828 Active Marianela Juarez Active DILANTIN 100 MG CAPS Take one by mouth daily PHENYTOIN SODIUM EXTENDED 08566120759 No Longer Active Marianelachandrika Juarez Active DEPAKOTE SPRINKLES 125 MG CPSP 4 capsules by mouth twice daily DIVALPROEX SODIUM 40023742752 No Longer Active Marianela Juarez Active LAMICTAL 200 MG ORAL TABS 1 BY MOUTH TWICE A DAY LAMOTRIGINE 94079016083 Active Marianela Juarez Active LAMICTAL 100 MG TABS by mouth twice a day LAMOTRIGINE 38567708532 No Longer Active Marianela Juarez Active LAMICTAL 150 MG TABS by mouth twice a day LAMOTRIGINE 49344594513 No Longer Active Marianela Juarez Active DILANTIN 100 MG CAPS Take three by mouth daily PHENYTOIN SODIUM EXTENDED 64420226497 No Longer Active Marianelachandrika Juarez Active SENOKOT 8.6 MG TABS take at bedtime SENNOSIDES 84897384498 Active Glenn Thornton MD Active LIPITOR 20 MG TABS take at bedtime ATORVASTATIN CALCIUM 97247740513 Active Glenn Thornton MD Active LISINOPRIL 2.5 MG TABS Take one by mouth daily LISINOPRIL 74334207903 Active Glenn Thornton MD Active TRENTAL 400 MG CR-TABS by mouth twice a day PENTOXIFYLLINE 44567985877 Active Glenn Thornton MD Active LAMICTAL 25 MG TABS by mouth twice a day LAMOTRIGINE 51494171602 Active Glenn Thornton MD Active BUSPIRONE HCL 10 MG TABS by mouth twice a day BUSPIRONE HCL 22143343079 Active Glenn Thornton MD Active FUROSEMIDE 40 MG TABS Take one by mouth daily FUROSEMIDE 76919933692 Active Glenn Thornton MD Active TEGRETOL 200 MG TABS Take one by mouth daily CARBAMAZEPINE 06600768412 Active Glenn Thornton MD Active KLOR-CON 10 10 MEQ CR-TABS Take one by mouth daily POTASSIUM CHLORIDE 35339094055 Active Glenn Thornton MD Active ADULT ASPIRIN EC LOW STRENGTH 81 MG TBEC Take one by mouth daily ASPIRIN 45241430176 Active J Ian Thornton MD Active DILANTIN 100 MG CAPS Take three by mouth daily DILANTIN 100 MG CAPS 256262 PHENYTOIN SODIUM EXTENDED Inactive LAMICTAL 150 MG TABS by mouth twice a day LAMICTAL 150 MG TABS 19831025 LAMOTRIGINE Inactive LAMICTAL 100 MG TABS by mouth twice a day LAMICTAL 100 MG TABS 19831024 LAMOTRIGINE Inactive DEPAKOTE SPRINKLES 125 MG CPSP 4 capsules by mouth twice daily DEPAKOTE SPRINKLES 125 MG CPSP 8120097 DIVALPROEX SODIUM Inactive DILANTIN 100 MG CAPS Take one by mouth daily DILANTIN 100 MG CAPS 569263 PHENYTOIN SODIUM EXTENDED Inactive Advance Directives Directive Description Start Date DURABLE POWER OF BRUSH CLEANER FOR HEALTHCARE PERMISSION TO SHARE Vital Signs [...] Yes Encounters Code Encounter Date Provider Facility CPT-55781 Level 3 New Patient 21:39:52 PROFILE SHAPER OPERATOR Pelon Quach MD [facility] CPT-76866 Level 3 Est. Patient 14:28:44 CDT Glenn Thornton MD [facility] CPT-43713 Level 3 Est. Patient 16:35:00 CDT Glenn Thornton MD [facility] CPT-05897 Level 4 New Patient 17:06:27 CDT Glenn Thornton MD [facility] Procedures Code Procedure Name Date Entry Date Standard Description CPT-96954 Cystoscopy 14:28:44 CDT CPT-81604 Bladder Scan 14:28:44 CDT CPT-39387 Indwelling Cath Change 17:06:27 CDT CPT-90291 Cystoscopy 17:06:27 CDT
[2018-06-22] MEDS ORDERED: PHENYLEPHRINE 100 MCG/ML 10 ML (ANESTHESIA) SYR ONE (13:21)
--- NOTE | 2018-06-22 13:24 | Progress Note-Post Operative ---
Post-Operative Progess Note Surgeon (s)/Instrument Mechanics Supervisor (s) Surgeon SARA MONTES MD Instrument Mechanics Supervisor n/a Pre-Operative Diagnosis Posterior Nasal Epistaxis Post-Operative Diagnosis same Post-Op Procedure Note Date of Procedure: Jun 22, 2018 Name of Procedure Performed: Endoscopic Repair of Left Posterior Epistaxis Description & Findings Description and Findings: n/a Anesthesia Type get Estimated Blood Loss minimal Packing none. Specimen(s) collected/removed none SARA MONTES MD Jun 22, 2018 1:23 pm
[2018-06-22] MEDS ORDERED: PHENYLEPHRINE 0.5% NASAL SPR (NEO-SYNEPHRINE) REG PRN (13:30)
[2018-06-22] MEDS ORDERED: ACETAMINOPHEN 325 MG TABLET PO PRN (13:30)
[2018-06-22] MEDS ORDERED: HYDROcodone/APAP 5 MG/325 MG (LORTAB) TAB PO PRN (13:30)
[2018-06-22 14:25] VITALS: BP 149/67
--- OUTSIDE RECORDS SUMMARY | 2018-06-22 15:21 | XMS REPORT | Continuity of Care Document ---
Demographics x Preferred Language Unknown Marital Status Unknown Mormon Affiliation Unknown Race Unknown Ethnic Group Unknown Author Author [facility] Organization [facility] Address Unknown Phone Unavailable Allergies Active Description Code Type Severity Reaction Onset Reported/Identified Relationship to Patient Clinical Status Yes No known drug allergies 67771508 Drug Allergy N/A N/A Confirmed but inactive Yes shrimp 70765 Drug Allergy N/A N/A Confirmed or Verified [...] Description Performed By Performed On Neurology Jakub Esuqivel 04/08/2014 64894 CMP 06/18/2014 52847 LIPID PANEL 06/18/2014 5710982 GFR CALC (RESULT ONLY) 06/18/2014 50497 CBC 06/18/2014 74704 A1C (RML) 06/19/2014 05203 CMP 08/20/2014 70860 LIPID PANEL 08/20/2014 60197 CBC 08/20/2014 93225 ROUTINE VENIPUNCTURE 02/21/2016 23006 METABOLIC PANEL TOTAL CA 02/21/2016 98185 COMPREHEN METABOLIC PANEL 02/21/2016 60901 URINALYSIS, AUTO W/SCOPE 02/21/2016 50951 ASSAY OF LIPASE 02/21/2016 84200 COMPLETE CBC W/AUTO DIFF WBC 02/21/2016 C1781 [...] Status Pt. Type Provider Facility Loc./Unit Complaint [id number] 02/20/2016 22:48:00 02/21/2016 17:15:00 DIS Outpatient EDVIN BARRERA [facility] OBS [id number] 01/11/2015 02:15:00 01/11/2015 03:50:00 DIS Emergency MELISSA GALINA [facility] EMR [id number] 08/16/2015 00:00:00 Document Registration [email or web address] 04/12/2018 07:30:03 ACT Document Registration [id number] 07/17/2016 13:58:00 07/17/2016 14:58:00 [id number] 05/29/2016 10:38:00 05/29/2016 11:38:00 [facility] [id number] 05/19/2016 10:17:00 05/19/2016 11:17:00 DIS DEANA MELGAR [facility] OT [id number] 02/17/2016 09:26:00 02/17/2016 10:26:00 DIS DEANA QUACH [facility] OT [id number] 11/16/2015 10:27:00 11/16/2015 11:27:00 DIS DEANA QUACH [facility] OT [id number] 08/19/2015 08:43:00 08/19/2015 [facility]43[id number]/25[facility]2015 12:42:00 02/25/2015 13:42:00 [facility] [id number] 06/03/2018 14:35:29 ACT Franklin Jones MD [id number] 06/17/2018 23:58:15 06/17/2018 23:59:59 DIS Outpatient BETO SINGH [facility] [id number] 06/17/2018 19:08:00 06/17/2018 23:59:59 ACT FRANKLIN FLANNERY [facility] ED visit [id number] 02/28/2018 00:07:00 02/28/2018 23:59:59 CLS Emergency [facility] ED ed visit [id number] 02/27/2018 23:40:00 02/27/2018 23:59:59 DIS Outpatient BETO SINGH [facility] [id number] 01/03/2018 08:06:39 01/03/2018 23:59:59 DIS Outpatient FRANKLIN GENAO [facility] [id number] 01/03/2018 05:51:00 01/03/2018 23:59:59 CLS Emergency [facility] ED ed visit [id number] 10/12/2016 18:43:00 10/12/2016 23:59:59 CLS Emergency [facility] ED unknown [id number] 10/11/2016 03:14:00 10/11/2016 23:59:59 CLS Emergency [facility] ED unknown [id number] 06/22/2018 04:16:19 Document Registration [id number] 06/15/2018 02:00:56 Document Registration [id number] 05/23/2018 09:14:53 Document Registration [id number] 10/12/2016 19:47:36 Document Registration [id number] 10/11/2016 23:28:28 Document Registration [id number] 08/19/2014 11:08:00 08/19/2014 23:59:59 CLS Outpatient TIMA BILLINGS MD [id number] 06/18/2014 11:04:00 06/18/2014 23:59:59 CLS Outpatient TIMA BILLINGS MD [id number] 04/08/2014 14:22:00 04/08/2014 23:59:59 CLS Outpatient TIMA BILLINGS MD [id number] 02/11/2014 09:58:00 02/11/2014 23:59:59 CLS Outpatient TIMA BILLINGS MD [id number] 01/12/2014 10:29:00 01/12/2014 23:59:59 CLS Outpatient TIMA BILLINGS MD [id number] 11/20/2013 11:03:00 11/20/2013 23:59:59 CLS Outpatient TIMA BILLINGS MD [id number] 10/13/2013 10:09:00 10/13/2013 23:59:59 CLS Outpatient TIMA BILLINGS MD [id number] 08/13/2013 11:10:00 08/13/2013 23:59:59 CLS Outpatient TIMA BILLINGS MD [id number] 06/19/2013 11:30:00 06/19/2013 23:59:59 CLS Outpatient TIMA BILLINGS MD
[2018-06-22 16:40] VITALS: BP 150/70
[2018-06-22] MEDS: inSUlin ASPART (NovoLOG) 1 UNIT/0.01 ML (CHARGE PER UNIT) SC SCH ×2 (16:45→21:11)
[2018-06-22] MEDS: D5 1/2 NS W/KCL 20 MEQ/L 1,000 ML IV SCH (16:46)
--- NOTE | 2018-06-22 16:58 | Anesthesia-General Post-Op ---
General Patient Condition Mental Status/LOC: Same as Preop Cardiovascular: Satisfactory Nausea/Vomiting: Absent Respiratory: Satisfactory Pain: Controlled Complications: Absent Post Op Complications Complications None Follow Up Care/Instructions Patient Instructions None needed. Anesthesia/Patient Condition Patient Condition Patient is doing well, no complaints, stable vital signs, no apparent adverse anesthesia problems. No complications reported per nursing. ESTRELLA YODER CRNA Jun 22, 2018 16:58
[2018-06-22 19:15] VITALS: BP 148/66
[2018-06-22] MEDS ORDERED: inSUlin DETERMIR 1 UNIT/0.01 ML (LEVEMIR) CHARGE PER UNIT SQ SCH (21:00)
[2018-06-22] MEDS ORDERED: ATORVASTATIN 20 MG (LIPITOR) TABLET PO SCH (21:00)
[2018-06-22] MEDS ORDERED: TOLTERODINE LA 4 MG (DETROL) CAP PO SCH (21:00)
[2018-06-22] MEDS: busPIRone 10 MG (BUSPAR) TAB PO SCH (21:10)
[2018-06-22] MEDS: carBAMazepine 200 MG (TEGretol) TAB PO SCH (21:10)
[2018-06-22] MEDS: lamoTRIgine 25 MG (LaMICtal) TAB PO SCH (21:10)
[2018-06-22] MEDS ORDERED: IBUPROFEN TABLET 200 MG TAB PO PRN (22:00)
[2018-06-23 00:11] VITALS: BP 152/72
[2018-06-23 04:18] VITALS: BP 159/71
[2018-06-23] MEDS: D5 1/2 NS W/KCL 20 MEQ/L 1,000 ML IV SCH (05:03)
[2018-06-23] MEDS: inSUlin ASPART (NovoLOG) 1 UNIT/0.01 ML (CHARGE PER UNIT) SC SCH ×2 (06:03→11:28)
[2018-06-23 06:30] LABS: HEMOGLOBIN 8.5 G/DL (13.3-17.7); MEAN PLATELET VOLUME 8.4 FL (7.4-10.4); RED BLOOD COUNT 2.66 10^6/uL (4.35-5.85); RED CELL DISTRIBUTION WIDTH 13.7 % (10.0-14.5); WHITE BLOOD COUNT 5.8 10^3/uL (4.3-11.0)
[2018-06-23 06:43] LABS: BUN/CREATININE RATIO 31; CALCIUM 8.3 MG/DL (8.5-10.1); CARBON DIOXIDE 22 MMOL/L (21-32); CHLORIDE 99 MMOL/L (98-107); CREATININE SERUM 0.75 MG/DL (0.60-1.30); GFR ESTIMATED > 60; GLUCOSE 300 MG/DL (70-105); POTASSIUM 4.6 MMOL/L (3.6-5.0); SODIUM 128 MMOL/L (135-145)
--- NOTE | 2018-06-23 06:53 | Progress Note-Standard ---
Standard Progress Note Progress Notes/Assess & Plan Date Seen by a Provider: Jun 23, 2018 Time Seen by a Provider: 06:45 Progress/Assessment & Plan ENT-Ayana No bleeding since surgery Hgb-/ 8.5-stable QFO-Kp-830-stable by history he runs on the low side-ok otherwise Edvi-DOev-se new or old bleed seen Oral Cavity-clear IMP-Left Epistaxis post fall REc: 1. will discharge after breakfat 2. will need f/u in ENT-2 weeks chanute 3. Epistaxis discharge instructions 4. Nurse has discharge prescriptions 5. Call if recurrrent bleeding occurs Final Diagnosis left posterior Epistaxis SARA MONTES MD Jun 23, 2018 6:53 am
[2018-06-23 08:00] VITALS: BP 132/60
[2018-06-23] MEDS ORDERED: TAMSULOSIN 0.4 MG (FLOMAX) CAP PO SCH (08:00)
[2018-06-23] MEDS ORDERED: EUCERIN (08:12)
[2018-06-23] MEDS ORDERED: LAMO25TA (08:12)
[2018-06-23] MEDS ORDERED: IBUP-1779 (08:12)
[2018-06-23] MEDS ORDERED: ASPI-983 (08:12)
[2018-06-23] MEDS ORDERED: PALI6TAB6 (08:12)
[2018-06-23] MEDS ORDERED: LAMO200T2 (08:12)
[2018-06-23] MEDS ORDERED: TOLT4CAP13 (08:12)
[2018-06-23] MEDS ORDERED: CYCL10TA9 (08:12)
[2018-06-23] MEDS ORDERED: TAMS0.4C2 (08:12)
[2018-06-23] MEDS ORDERED: SENN8.6T17 (08:12)
[2018-06-23] MEDS ORDERED: FURO20TA4 (08:12)
[2018-06-23] MEDS ORDERED: [UNRECOGNIZED DRUG - CODE] (08:12)
[2018-06-23] MEDS ORDERED: PENT400T9 (08:12)
[2018-06-23] MEDS ORDERED: CARB200T6 (08:12)
[2018-06-23] MEDS ORDERED: LISI2.5T (08:12)
[2018-06-23] MEDS ORDERED: INSU100I23 (08:12)
[2018-06-23] MEDS ORDERED: INSU100I10 (08:12)
[2018-06-23] MEDS ORDERED: BUSP10TA95 (08:12)
[2018-06-23] MEDS ORDERED: ATOR20TA66 (08:12)
[2018-06-23] MEDS ORDERED: LORA10TA7 (08:12)
[2018-06-23] MEDS ORDERED: CEPH-507 PO (08:18)
[2018-06-23] MEDS ORDERED: ACHD5005 PO (08:18)
[2018-06-23] MEDS: lamoTRIgine 25 MG (LaMICtal) TAB PO SCH (08:44)
[2018-06-23] MEDS: busPIRone 10 MG (BUSPAR) TAB PO SCH ×2 (08:44→13:56)
[2018-06-23] MEDS: carBAMazepine 200 MG (TEGretol) TAB PO SCH (08:45)
[2018-06-23] MEDS ORDERED: lisINopril 5 MG (PRINIVIL) TABLET PO SCH (09:00)
[2018-06-23] MEDS ORDERED: FUROSEMIDE 20 MG (LASIX) TAB PO SCH (09:00)
[2018-06-23] MEDS ORDERED: SENNOSIDES 8.6 MG (SENOKOT) TAB PO SCH (09:00)
[2018-06-23 12:00] VITALS: BP 102/53
[2018-06-23 15:26] VITALS: BP 102/53
== END 2018-06-23 15:33 | disposition designated cancer center or children's hospital (05) ==
LOC: ER 11:19 → SDC 12:29 → 4TH 14:25 → SDC 06-23 15:33
PROVIDERS: ATTEND Otolaryngology Otolaryngology/Facial Plastic Surgery
DX: R04.0 Epistaxis (principal); D64.9 Anemia, unspecified; E11.9 Type 2 diabetes mellitus without complications; I10 Essential (primary) hypertension; G40.909 Epilepsy, unspecified, not intractable, without status epilepticus; F03.90 Unspecified dementia, unspecified severity, without behavioral disturbance, psychotic disturbance, mood disturbance, and anxiety; Z95.0 Presence of cardiac pacemaker; Z79.4 Long term (current) use of insulin; Z79.899 Other long term (current) drug therapy
CPT/HCPCS: 36415; 80048; 82962; 85025; 85027; 86850; 86900; 86901; 86920; 94760